=== PATIENT | female | born 1965 | race Caucasian/White ===

== ENCOUNTER → 2016-11-29 | Outpatient (CLI) | payer MEDICARE, MEDICAID ==
[~2016-11-29] MED LIST: AMIT100T2 PO; CALC-712 PO; CYCL5TAB PO; DOCU100T7 PO; DULO60CA6 PO; HYDR-3812 PO; IBUP200C75 PO; LEVO50TA6 PO; LISI-556 PO; METF500T4 PO; MULT-81 PO; NALT1TAB PO; NAPR500T PO; OXYC-471 PO; PANT40TA3 PO; POTA10TA10 PO; PRAV40TA2 PO; PROM25TA14 PO; RANI150T90 PO; SPIR25TA3 PO; SPIR50TA2 PO; SULF1TAB35 PO; VENL150C PO
--- OUTSIDE RECORDS SUMMARY | 2016-11-29 11:39 | XMS REPORT | Continuity of Care Document ---
Author Author [facility] Organization [facility] Address Unknown Phone Unavailable Care Team Providers Care Fitter Up Name Role Phone Aden Fowler PCP [phone] Source Comments Some departments are not documenting in the electronic medical record. If you do not see the information that you expected, contact Release of Information in the Health Information Management department at [phone] for further assistance in locating additional records.[facility] Active Allergies and Adverse Reactions No [...] Taken Blood Pressure 119/84 11/02/2015 1:12 PM PLANT BREEDER Pulse 90 11/02/2015 1:12 PM PLANT BREEDER Temperature 36.8 C (98.2 F) 11/02/2015 1:11 PM PLANT BREEDER Respiratory Rate 18 11/02/2015 1:11 PM PLANT BREEDER Height 1.524 m (5') 11/02/2015 1:11 PM PLANT BREEDER Weight 87 kg (191 lb 12.8 oz) 11/02/2015 1:11 PM PLANT BREEDER Body Mass Index 37.46 11/02/2015 1:11 PM PLANT BREEDER Oxygen Saturation - - Plan of Care Health Maintenance Due Date Last Done Comments Physical (Comprehensive) 1972 Exam Pertussis Vaccine 1976 Tetanus Vaccine 1982 Cervical Cancer Screening 1986 Breast Cancer Screening 2005 Colorectal Cancer 2015 Screening Influenza Vaccine 05/31/2016 Results from Last 3 Months Not on file
--- NOTE | 2016-11-30 10:57 | Diagnostic Imaging Report ---
Bilateral screening mammogram. The current study was also evaluated with a Computer Aided Detection (CAD) system. INDICATION: Screening. No current complaints stated on the questionnaire. COMPARISON: 11/29/2015. FINDINGS: The breasts are composed of scattered fibroglandular densities. No suspicious lesion is seen. The punctate calcifications are noted. Allowing for technique and positional differences, no suspicious change is seen. IMPRESSION: No significant change. ACR BI-RADS Category 2: Benign findings. Result letter will be mailed to the patient. Note: At least 10% of breast cancer is not imaged by mammography. Dictated by: Dictated on workstation # [id number]
== END ==
LOC: RAD 11:12
PROVIDERS: ATTEND Internal Medicine Hematology & Oncology
DX: Z12.31 Encounter for screening mammogram for malignant neoplasm of breast (principal)
CPT/HCPCS: 77067

== ENCOUNTER → 2016-11-29 | Outpatient (CLI) | payer MEDICARE, MEDICAID ==
--- OUTSIDE RECORDS SUMMARY | 2016-11-29 11:39 | XMS REPORT | Continuity of Care Document ---
Author Author [facility] Organization [facility] Address Unknown Phone Unavailable Care Team Providers Care Cotton Acreage Measurer Name Role Phone Aden Fowler PCP [phone] Source Comments Some departments are not documenting in the electronic medical record. 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 Pulse 90 11/02/2015 1:12 PM [employer]OR[employer]CLE [employer] Temperature 36.8 C (98.2 F) 11/02/2015 1:11 PM [employer]OR[employer]CLE [employer] Respiratory Rate 18 11/02/2015 1:11 PM [employer]ORCYCLE [employer]ICE Height 1.524 m (5') 11/02/2015 1:11 PM [employer]OR[employer]CLE [employer] Weight 87 kg (191 lb 12.8 oz) 11/02/2015 1:11 PM [employer] Body Mass Index 37.46 11/02/2015 1:11 PM [employer] Oxygen Saturation - - Plan of Care Health Maintenance Due Date Last Done Comments Physical (Comprehensive) 1972 Exam Pertussis Vaccine 1976 Tetanus Vaccine 1982 Cervical Cancer Screening 1986 Breast Cancer Screening 2005 Colorectal Cancer 2015 Screening Influenza Vaccine 05/31/2016 Results from Last 3 Months Not on file
--- NOTE | 2016-11-29 17:10 | Diagnostic Imaging Report ---
Transabdominal and transvaginal pelvic ultrasound. INDICATION: Pelvic pain. FINDINGS: The uterus is 4.5 x 2.6 x 2.1 cm. The endometrial stripe is 0.3 cm in thickness. There is no myometrial mass identified. The right ovary is 1.6 x 1.5 x 2.3 cm. There are arterial waveforms noted. The left ovary is obscured by bowel gas. IMPRESSION: The left ovary is obscured. The uterus and right ovary appear unremarkable. Dictated by: Dictated on workstation # [id number]
== END ==
LOC: RAD 10:57
PROVIDERS: ATTEND Family Medicine
DX: R10.2 Pelvic and perineal pain (principal)
CPT/HCPCS: 76830; 76856

== ENCOUNTER 2016-12-04 08:21 | Outpatient (RCR) | payer MEDICARE, MEDICAID ==
--- OUTSIDE RECORDS SUMMARY | 2016-11-05 12:31 | XMS REPORT | Continuity of Care Document ---
Author Author [facility] Organization [facility] Address Unknown Phone Unavailable Care Team Providers Care Pressroom Supervisor Name Role Phone Aden Fowler PCP [phone] Source Comments Some departments are not documenting in the electronic medical record. If you do not see the information that you expected, contact Release of Information in the Health Information Management department at [phone] for further assistance in locating additional records.[facility] Active Allergies and Adverse Reactions No Known Allergies Current Medications Prescription Sig. Disp. Refills Start End Date Status Date ranitidine(+) (ZANTAC) Take 150 mg by mouth Active 150 mg tablet twice daily. metFORMIN (GLUCOPHAGE) Take 500 mg by mouth Active 500 mg tablet twice daily with meals. lisinopril (PRINIVIL; Take 5 mg by mouth daily. Active ZESTRIL) 5 mg tablet pravastatin (PRAVACHOL) Take 20 mg by mouth Active 20 mg tablet daily. spironolactone Take 25 mg by mouth Active (ALDACTONE) 25 mg tablet daily. potassium chloride SR Take 10 mEq by mouth Active (K-DUR) 10 mEq tablet daily. amitriptyline (ELAVIL) 25 Take 25 mg by mouth at Active mg tablet bedtime daily. levothyroxine (SYNTHROID) Take 50 mcg by mouth Active 50 mcg tablet daily. cyclobenzaprine Take 5-10 mg by mouth Active (FLEXERIL) 5 mg tablet every 8 hours as needed for Muscle Cramps. promethazine (PHENERGAN) Take 25 mg by mouth every Active 25 mg tablet 6 hours as needed for Nausea. MULTIVITAMIN PO Take 1 Tab by mouth Active daily. ibuprofen (MOTRIN) 200 mg Take 200 mg by mouth Active tablet every 6 hours as needed for Pain. CALCIUM Take 1 Tab by mouth Active CARB/D3/MAGNESIUM/ZINC daily. (SHWETA MAG ZINC + D3 PO) DULOXETINE HCL Take 1 Tab by mouth at Active (DULOXETINE PO) bedtime daily. Active Problems Problem Noted Date S/P IVC filter 11/03/2015 Social History Tobacco Use Types Packs/Day Years Used Date Light Tobacco Smoker Last Filed Vital Signs Vital Sign Reading Time Taken Blood Pressure 119/84 11/02/2015 1:12 PM RETAIL CLIENT SOLUTIONS CONSULTANT Pulse 90 11/02/2015 1:12 PM RETAIL CLIENT SOLUTIONS CONSULTANT Temperature 36.8 C (98.2 F) 11/02/2015 1:11 PM RETAIL CLIENT SOLUTIONS CONSULTANT Respiratory Rate 18 11/02/2015 1:11 PM RETAIL CLIENT SOLUTIONS CONSULTANT Height 1.524 m (5') 11/02/2015 1:11 PM RETAIL CLIENT SOLUTIONS CONSULTANT Weight 87 kg (191 lb 12.8 oz) 11/02/2015 1:11 PM RETAIL CLIENT SOLUTIONS CONSULTANT Body Mass Index 37.46 11/02/2015 1:11 PM RETAIL CLIENT SOLUTIONS CONSULTANT Oxygen Saturation - - Plan of Care Health Maintenance Due Date Last Done Comments Physical (Comprehensive) 1972 Exam Pertussis Vaccine 1976 Tetanus Vaccine 1982 Cervical Cancer Screening 1986 Breast Cancer Screening 2005 Colorectal Cancer 2015 Screening Influenza Vaccine 05/31/2016 Results from Last 3 Months Not on file
[2016-11-05 13:04] LABS: BASOPHILS # (AUTO) 0.1 10^3/uL (0.0-0.1); BASOPHILS % (AUTO) 1 % (0-10); EOSINOPHILS # (AUTO) 0.5 10^3/uL (0.0-0.3); EOSINOPHILS % (AUTO) 3 % (0-10); LYMPHOCYTES # (AUTO) 3.6 X 10^3 (1.0-4.0); LYMPHOCYTES % (AUTO) 24 % (12-44); MEAN CORPUSCULAR HEMOGLOBIN 31 PG (25-34); MEAN CORPUSCULAR HGB CONC 34 G/DL (32-36); MEAN CORPUSCULAR VOLUME 93 FL (80-99); MEAN PLATELET VOLUME 9.8 FL (7.4-10.4); MONOCYTES # (AUTO) 1.1 X 10^3 (0.0-1.0); MONOCYTES % (AUTO) 8 % (0-12); NEUTROPHILS # (AUTO) 9.5 X 10^3 (1.8-7.8); NEUTROPHILS % (AUTO) 64 % (42-75); PLATELET COUNT 444 10^3/uL (130-400); RED BLOOD COUNT 4.68 10^6/uL (4.35-5.85); RED CELL DISTRIBUTION WIDTH 14.2 % (10.0-14.5); WHITE BLOOD COUNT 14.8 10^3/uL (4.3-11.0)
[2016-11-05 13:44] LABS: ALANINE AMINOTRANSFERASE 33 U/L (0-55); ALBUMIN 3.9 G/DL (3.2-4.5); ANION GAP 9 MMOL/L (5-14); ASPARTATE AMINO TRANSFERASE 38 U/L (5-34); BILIRUBIN,TOTAL 0.3 MG/DL (0.1-1.0); BLOOD UREA NITROGEN 6 MG/DL (7-18); BUN/CREATININE RATIO 8; CALCIUM 9.2 MG/DL (8.5-10.1); CARBON DIOXIDE 23 MMOL/L (21-32); CHLORIDE 107 MMOL/L (98-107); CREATININE SERUM 0.76 MG/DL (0.60-1.30); GFR ESTIMATED > 60; GLUCOSE 102 MG/DL (70-105); POTASSIUM 4.4 MMOL/L (3.6-5.0); SODIUM 139 MMOL/L (135-145); TOTAL PROTEIN 7.1 G/DL (6.4-8.2)
[2016-11-05 14:18] LABS: ERYTHROCYTE SEDIMENTATION RATE 32 MM/HR (0-30)
[2016-11-14 08:46] LABS: BASOPHILS # (AUTO) 0.1 10^3/uL (0.0-0.1); BASOPHILS % (AUTO) 1 % (0-10); EOSINOPHILS # (AUTO) 0.5 10^3/uL (0.0-0.3); EOSINOPHILS % (AUTO) 5 % (0-10); LYMPHOCYTES # (AUTO) 2.7 X 10^3 (1.0-4.0); LYMPHOCYTES % (AUTO) 24 % (12-44); MEAN CORPUSCULAR HEMOGLOBIN 31 PG (25-34); MEAN CORPUSCULAR HGB CONC 33 G/DL (32-36); MEAN CORPUSCULAR VOLUME 95 FL (80-99); MONOCYTES # (AUTO) 0.7 X 10^3 (0.0-1.0); MONOCYTES % (AUTO) 6 % (0-12); NEUTROPHILS # (AUTO) 7.6 X 10^3 (1.8-7.8); NEUTROPHILS % (AUTO) 65 % (42-75); PLATELET COUNT 364 10^3/uL (130-400); RED CELL DISTRIBUTION WIDTH 14.1 % (10.0-14.5); RETICULOCYTE % 1.68 % (0.50-2.40); WHITE BLOOD COUNT 11.6 10^3/uL (4.3-11.0)
[2016-11-14 09:20] LABS: BAND NEUTROPHILS 0 %; BASOPHILS % (MANUAL) 1 %; EOSINOPHILS % (MANUAL) 4 %; LYMPHOCYTES % (MANUAL) 27 %; NEUTROPHILS % (MANUAL) 61 %
[~2016-12-04 08:21] MED LIST changes: -HYDR-3812 PO; -NALT1TAB PO; -NAPR500T PO; -SULF1TAB35 PO
[2016-12-04 09:36] LABS: BASOPHILS # (AUTO) 0.1 10^3/uL (0.0-0.1); BASOPHILS % (AUTO) 1 % (0-10); EOSINOPHILS # (AUTO) 0.5 10^3/uL (0.0-0.3); EOSINOPHILS % (AUTO) 4 % (0-10); LYMPHOCYTES # (AUTO) 3.3 X 10^3 (1.0-4.0); LYMPHOCYTES % (AUTO) 26 % (12-44); MEAN CORPUSCULAR HEMOGLOBIN 31 PG (25-34); MEAN CORPUSCULAR HGB CONC 33 G/DL (32-36); MEAN CORPUSCULAR VOLUME 94 FL (80-99); MEAN PLATELET VOLUME 9.8 FL (7.4-10.4); MONOCYTES # (AUTO) 0.9 X 10^3 (0.0-1.0); MONOCYTES % (AUTO) 7 % (0-12); NEUTROPHILS % (AUTO) 63 % (42-75); PLATELET COUNT 425 10^3/uL (130-400); RED BLOOD COUNT 4.32 10^6/uL (4.35-5.85); RED CELL DISTRIBUTION WIDTH 13.9 % (10.0-14.5); WHITE BLOOD COUNT 12.7 10^3/uL (4.3-11.0)
[2016-12-04 10:17] LABS: ALANINE AMINOTRANSFERASE 17 U/L (0-55); ALBUMIN 3.6 G/DL (3.2-4.5); ANION GAP 10 MMOL/L (5-14); ASPARTATE AMINO TRANSFERASE 17 U/L (5-34); BILIRUBIN,TOTAL 0.3 MG/DL (0.1-1.0); BLOOD UREA NITROGEN 4 MG/DL (7-18); BUN/CREATININE RATIO 6; CALCIUM 9.4 MG/DL (8.5-10.1); CARBON DIOXIDE 23 MMOL/L (21-32); CHLORIDE 109 MMOL/L (98-107); CREATININE SERUM 0.72 MG/DL (0.60-1.30); GFR ESTIMATED > 60; GLUCOSE 92 MG/DL (70-105); POTASSIUM 4.1 MMOL/L (3.6-5.0); SODIUM 142 MMOL/L (135-145); TOTAL PROTEIN 6.7 G/DL (6.4-8.2)
[2016-12-04 10:19] LABS: ERYTHROCYTE SEDIMENTATION RATE 42 MM/HR (0-30)
[2016-12-04 10:43] LABS: THYROID STIMULATING HORMONE 0.42 UIU/ML (0.35-4.94)
[2017-01-30] MEDS ORDERED: NALT1TAB PO (12:02)
[2017-01-30] MEDS ORDERED: NAPR500T PO (14:46)
[2017-01-30] MEDS ORDERED: SULF1TAB35 PO (14:46)
== END 2017-02-03 | disposition home or self-care (01) ==
LOC: ONC 08:21
PROVIDERS: ATTEND Internal Medicine Hematology & Oncology
DX: D72.829 Elevated white blood cell count, unspecified (principal); F17.210 Nicotine dependence, cigarettes, uncomplicated; R79.82 Elevated C-reactive protein (CRP); R79.89 Other specified abnormal findings of blood chemistry; E11.9 Type 2 diabetes mellitus without complications; E03.9 Hypothyroidism, unspecified; M19.90 Unspecified osteoarthritis, unspecified site; E66.9 Obesity, unspecified; Z68.35 Body mass index [BMI] 35.0-35.9, adult; Z86.718 Personal history of other venous thrombosis and embolism; Z80.3 Family history of malignant neoplasm of breast; Z79.899 Other long term (current) drug therapy
CPT/HCPCS: 36415; 38221; 80053; 84439; 84443; 85007; 85025; 85027; 85045; 85652; 88184; 88185; 88305; 88311; 88313; 99213

== ENCOUNTER 2017-01-30 11:45 | Outpatient (CLI) | payer MEDICARE, MEDICAID ==
--- NOTE | 2017-01-28 12:32 | HISTORY AND PHYSICAL ---
DATE OF SERVICE: 01/30/2017 REASON FOR ADMISSION: Outpatient surgery for right long and ring finger trigger releases. HISTORY OF PRESENT ILLNESS: The patient is a 51-year-old female with complaints of catching and locking in her right long and ring fingers over the last several months. She reports that this has been progressive in nature. She reports activity limitations. She has tried anti-inflammatories as well as activity modifications without relief and due to progressive symptoms and interference with activities of daily living the patient has elected to proceed with surgical intervention. REVIEW OF SYSTEMS: No chest pain, no shortness of breath and no dysuria. PAST MEDICAL HISTORY: Hypertension, hyperlipidemia, diabetes, hypothyroidism, abdominal hernia, reflux, degenerative disk disease, migraines, headaches, depression, anxiety and history of DVT. PAST SURGICAL HISTORY: Abdominal herniorrhaphy, [place] vena cava filter, left carpal tunnel, left elbow, right carpal tunnel, tonsillectomy, right foot and right rotator cuff repair. FAMILY HISTORY: Significant for diabetes, myocardial infarction. PRIMARY CARE PROVIDER: Dr. Farah. SOCIAL HISTORY: The patient smokes 1/2 pack a day. Denies alcohol use. PHYSICAL EXAMINATION: GENERAL: The patient is well-developed, well-nourished, in no acute distress. HEENT: Normocephalic, atraumatic. Pupils are equal, round and reactive to light. Oropharynx is clear. NECK: Supple. No lymphadenopathy. LUNGS: Clear to auscultation bilaterally. HEART: Regular rate and rhythm. ABDOMEN: Soft, nontender and nondistended. EXTREMITIES: The right hand demonstrates tenderness over her long and right finger A1 pulleys. She can demonstrate active triggering with flexion. She has full flexion and extension throughout her MCP, DIP and PIP joints. Sensation is intact distally with no skin lesions noted. IMPRESSION: Right long and ring finger trigger fingers. PLAN: Right long finger and ring finger trigger releases. The risks, benefits, alternatives, options, ramifications and recovery were discussed at length with the patient. She understands and wishes to proceed. Job ID: [id number] DocumentID: [id number] Dictated Date: 01/22/2017 09:36:59 Bath House Attendant Date: 01/22/2017 10:32:44 Dictated By: YING GENAO MD
[~2017-01-30] VITALS: Ht 152.4 cm; Wt 79.1 kg
[2017-01-30] MEDS ORDERED: NALT1TAB PO (12:02)
[2017-01-30 12:06] VITALS: BP 121/79
[2017-01-30] MEDS ORDERED: NAPR500T PO (14:46)
[2017-01-30] MEDS ORDERED: SULF1TAB35 PO (14:46)
== END 2017-01-30 12:42 | disposition home or self-care (01) ==
LOC: PREOP 11:45
PROVIDERS: ATTEND Orthopaedic Surgery
DX: Z01.818 Encounter for other preprocedural examination (principal); Z11.2 Encounter for screening for other bacterial diseases; M65.331 Trigger finger, right middle finger; M65.341 Trigger finger, right ring finger
CPT/HCPCS: 87081

== ENCOUNTER 2017-01-30 12:27 | Emergency (ER) | payer MEDICARE, MEDICAID ==
[~2017-01-30] VITALS: Ht 154.9 cm; Wt 78.9 kg
[~2017-01-30 12:27] MED LIST changes: +NALT1TAB PO
--- NOTE | 2017-01-30 14:09 | ED Integumentary General ---
General Chief Complaint: Skin/Wound Problems Stated Complaint: SORE ON LEFT FOOT Nursing Triage Note: PT HAS A SORE ON HER LEFT BIG TOE. PT STATES IT WAS A BLISTER AND POPPED NOW IT HAS BLOOD COMING FROM IT. PT HAS HAD A SORE ON HER BIG TOE SINCE APPROX. LAST SATURDAY.PT STATES SHE HAS BEEN APPLYING PEROXIDE, ANTIBIOTIC OINTMENT, AND GAUZE AROUND IT. Source: patient Exam Limitations: no limitations History of Present Illness Time seen by provider: 14:09 Initial Comments 51-year-old female patient presents to the emergency department with complaints of a sore on her left great toe. Patient states she has had a callus there for several years. Reports last Saturday she noticed a blood blister had popped. Reports continued wound and pain. Denies contacting her family practitioner or a fisher terrapin. Location Injury Occurred: denies known injury Timing/Duration: constant, week Location: extremities (left great toe) Possible Cause: no cause identified Modifying Factors: worse with other (worse with palpation) Allergies and Home Medications Allergies Coded Allergies: No Known Drug Allergies (Unverified , 01/30/17) Home Medications Duloxetine HCl 60 Mg Capsule.dr, 60 MG PO DAILY, (Reported) Levothyroxine Sodium 50 Mcg Tablet, 50 MCG PO DAILY, (Reported) Lisinopril 5 Mg Tablet, 5 MG PO DAILY, (Reported) Metformin HCl 500 Mg Tablet, 500 MG PO BID, (Reported) Multivit with Calcium,Iron,Min 1 Each Tablet, 1 EACH PO DAILY, (Reported) Naltrexone HCl/Bupropion HCl 1 Each Tablet.er, 1 EACH PO DAILY, (Reported) Naproxen 500 Mg Tablet, 500 MG PO BID PRN for pain, #20 Ref 0 Prescribed by: DARA HORNER on 01/30/17 1446 Pantoprazole Sodium 40 Mg Tablet.dr, 40 MG PO DAILY, (Reported) Potassium Chloride 10 Meq Tablet.er, 10 MEQ PO BID, (Reported) Pravastatin Sodium 40 Mg Tablet, 40 MG PO HS, (Reported) Promethazine HCl 25 Mg Tablet, 25 MG PO Q6H PRN for NAUSEA/VOMITING, (Reported) Ranitidine HCl 150 Mg Tablet, 150 MG PO BID, (Reported) Sulfamethoxazole/Trimethoprim 1 Each Tablet, 1 EACH PO BID, #14 Ref 0 Prescribed by: DARA HORNER on 01/30/17 1446 Constitutional: No chills, No fever, No malaise Respiratory: no symptoms reported Cardiovascular: no symptoms reported Musculoskeletal: see HPI, joint pain (left great toe) Skin: see HPI, change in color (erythema left great toe), lesions, No pruritus Psychiatric/Neurological: See HPI, Pre-Existing Deficit (neuropathy bilateral feet), Denies Weakness All Other Systems Reviewed Negative Unless Noted: Yes (Negative excepted noted.) Past Uykpdpi-Bszgsl-Xnrmmd Hx Patient Social History Alcohol Use: Denies Use Recreational Drug Use: No Smoking Status: Current Everyday Smoker Type Used: Cigarettes 2nd Hand Smoke Exposure: Yes Recent Foreign Travel: No Contact w/Someone Who Travel: No Recent Infectious Disease Expo: No Recent Hopitalizations: No Immunizations Up To Date Date of Pneumonia Vaccine: Sep 30, 2012 Seasonal Allergies Seasonal Allergies: No Surgeries HX Surgeries: Yes (FOOT X2, BLADDER SLING, SHEMAR CARPAL TUNNEL, SHEMAR ELBOW, R SHOULDER SCOPE X2) Surgeries: Tonsillectomy Respiratory Hx Respiratory Disorders: Yes Respiratory Disorders: Pulmonary Embolism Cardiovascular Hx Cardiac Disorders: Yes (HAS GREENFILED FILTER, HX DVT AND PE) Cardiac Disorders: Deep Vein Thrombosis, Hypertension Neurological Hx Neurological Disorders: Yes (GUILLIAN BARRE) Neurological Disorders: Headaches /Migraines 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 System Hx 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 Disorders: No Sexually Transmitted Disease: No HIV/AIDS: No Female 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 Disorders: Denies Genitourinary Hx Genitourinary Disorders: No Gastrointestinal Hx Gastrointestinal Disorders: Yes (FATTY LIVER) Gastrointestinal Disorders: Gastroesophageal Reflux, Chronic Constipation Musculoskeletal Hx Musculoskeletal Disorders: Yes Musculoskeletal Disorders: Degenerate Disk Disease, Arthritis, Scoliosis, Chronic Back Pain Endocrine Hx Endocrine Disorders: Yes HEENT HX ENT Disorders: Yes (GLASSES) Loss of Vision: Bilateral Hearing Impairment: Denies Cancer Hx Cancer: No Psychosocial Hx Psychiatric Problems: Yes Behavioral Health Disorders: Anxiety, Depression Integumentary HX Skin/Integumentary Disorder: No Blood Transfusions Hx Blood Disorders: No Adverse Reaction to a Blood Tr: No (N/A) Reviewed Nursing Assessment Reviewed/Agree w Nursing PMH: Yes Family Medical History Significant Family History: No Pertinent Family Hx Physical Exam Vital Signs Vital Sign - Last 12Hours 01/30/17 13:42 Temp 98.3 Pulse 79 Resp 18 B/P (MAP) 130/91 Pulse Ox 98 O2 Delivery Room Air Capillary Refill : Less Than 3 Seconds General Appearance: WD/WN, no apparent distress Cardiovascular: normal peripheral pulses, no edema Extremities: normal range of motion, no pedal edema, normal capillary refill, swelling (mild swelling left great toe), other (plantar wart noted on the left plantar great toe with surrounding erythema. 2 small blood blisters noted proximal to the plantar wart. Callus formation surrounding the wart noted. Wound of the medial left great toe consistent with recent vesicle rupture.) Neurologic/Psychiatric: no motor/sensory deficits, alert, normal mood/affect, oriented x 3 Skin: normal color, warm/dry, other (plantar wart noted on the left plantar great toe with surrounding erythema. 2 small blood blisters noted proximal to the plantar wart. Callus formation surrounding the wart noted. Wound of the medial left great toe consistent with recent vesicle rupture.) Skin Problem Location: lower extremities (left great toe) Skin Problem Character: erythema, tenderness, vesicular, other (plantar wart noted on the left plantar great toe with surrounding erythema. 2 small blood blisters noted proximal to the plantar wart. Callus formation surrounding the wart noted. Wound of the medial left great toe consistent with recent vesicle rupture.) Progress/Results/Core Measures Results/Orders My Orders Orders - DARA HORNER Mupirocin Ointment (Bactroban Ointment (01/30/17 21:00) Mupirocin Ointment (Bactroban Ointment (01/30/17 14:20) Vital Signs/I&O Vital Sign - Last 12Hours 01/30/17 01/30/17 13:42 14:54 Temp 98.3 98.3 Pulse 79 80 Resp 18 18 B/P (MAP) 130/91 Pulse Ox 98 98 O2 Delivery Room Air Blood Pressure Mean: 104 Departure Communication Progress Notes Patient seen and evaluated. Plan for discharge to home with Naprosyn and Bactrim DS. Impression Impression: Primary Impression: Cellulitis of toe of left foot Additional Impressions: Open wound of toe without complication Qualified Codes: S91.109A - Unspecified open wound of unspecified toe(s) without damage to nail, initial encounter Plantar wart of left foot Disposition: 01 HOME, SELF-CARE Condition: Improved Departure-Patient Inst. Decision time for Depature: 14:43 Referrals: GEO FARAH MD (PCP/Family) Primary Care Physician Patient Instructions: Cellulitis (Skin Infection), Adult (DC), Plantar Warts ( DC) Add. Discharge Instructions: All discharge instructions reviewed with patient and/or family. Voiced understanding. Medications as instructed. Apply Bactroban ointment sparingly twice daily to the left great toe for 7 days. Cover with a bandage. Keep wound clean and dry. Shower with antibacterial soap. Follow-up with Dr. Farah in the next 5-7 days for recheck. Consider following up with outpatient wound care. Contact Dr. Ash's office to notify him of diagnoses. Return to the emergency department for worsened symptoms or any other concerns. Scripts Naproxen (Naprosyn) 500 Mg Tablet 500 MG PO BID Y for pain, #20 TAB 0 Refills Prov: DARA HORNER 01/30/17 Sulfamethoxazole/Trimethoprim (Bactrim Ds Tablet) 1 Each Tablet 1 EACH PO BID, #14 TAB 0 Refills Prov: DARA HORNER 01/30/17 DARA HORNER January 30, 2017 14:09
[2017-01-30] MEDS ORDERED: MUPIROCIN 2% OINT 22 GM (BACTROBAN) TUBE ONE (14:20)
[2017-01-30] MEDS ORDERED: SULF1TAB35 PO (14:46)
[2017-01-30] MEDS ORDERED: NAPR500T PO (14:46)
[2017-01-30 14:54] VITALS: BP 117/78
[2017-01-30] MEDS: MUPIROCIN 2% OINT 22 GM (BACTROBAN) TUBE TOP SCH (14:58)
== END 2017-01-30 15:00 | disposition home or self-care (01) ==
LOC: EDUNIT# 12:27 → ER 12:30
DX: L03.032 Cellulitis of left toe (principal); B07.0 Plantar wart

== ENCOUNTER 2017-02-06 06:00 | Day surgery (SDC) | payer MEDICARE, MEDICAID ==
[~2017-02-06] VITALS: Ht 154.9 cm; Wt 79.1 kg
[~2017-02-06 06:00] MED LIST changes: +NAPR500T PO; +SULF1TAB35 PO
[2017-02-06 06:30] VITALS: BP 130/103
[2017-02-06] MEDS ORDERED: fentaNYL INJECTION 100 MCG/2 ML AMP ONE (06:37)
[2017-02-06] MEDS ORDERED: PROPOFOL INJECTION 0 ML IV ONE (06:37)
[2017-02-06] MEDS ORDERED: MIDAZOLAM 2 MG/2 ML (VERSED) VIAL ONE (06:38)
[2017-02-06] MEDS ORDERED: ceFAZolin 1,000 MG (ANCEF) VIAL ONE (06:38)
[2017-02-06] MEDS ORDERED: NS (IVPB) 50 ML ONE (06:38)
[2017-02-06] MEDS ORDERED: FAMOTIDINE 20MG/2ML IV (PEPCID) IV ONE (06:45)
[2017-02-06] MEDS: LACTATED RINGERS 1,000 ML IV PRN ×2 (06:56→08:18)
[2017-02-06] MEDS ORDERED: LIDOCAINE 1% INJ 20 ML (XYLOCAINE) VIAL ONE (06:59)
[2017-02-06] MEDS ORDERED: BUPIVACAINE 0.5% 30 ML (SENSORCAINE) VIAL ONE (06:59)
[2017-02-06] MEDS ORDERED: ceFAZolin 1 GM/NS 50 ML IVPB IV ONE ×2 (07:00)
--- NOTE | 2017-02-06 07:25 | Progress Note-Pre Operative ---
Pre-Operative Progress Note H&P Reviewed The H&P was reviewed, patient examined and no changes noted. Date H&P Reviewed: February 06, 2017 Time H&P Reviewed: 07:11 Pre-Operative Diagnosis: right long and ring trigger fingers YING GENAO MD February 06, 2017 07:25
--- NOTE | 2017-02-06 07:26 | Progress Note-Post Operative ---
Post-Operative Progess Note Surgeon (s)/Oil And Gas Exploration Technician (s) Surgeon YING GENAO MD Oil And Gas Exploration Technician: Daron Vann Pre-Operative Diagnosis right long and ring trigger fingers Post-Operative Diagnosis right long and ring trigger fingers Procedure & Operative Findings Date of Procedure 02/06/17 Procedure Preformed/Findings right long and ring finer A1 marguerite releases Anesthesia Type MAC plus local Estimated Blood Loss Estimated blood loss (mL): minimal Specimens/Packing Specimens Removed none Packing: none YING GENAO MD February 06, 2017 07:26
[2017-02-06] MEDS ORDERED: HYDROcodone/APAP 5 MG/325 MG (LORTAB) TAB PO PRN (07:30)
[2017-02-06] MEDS ORDERED: LACTATED RINGERS 1,000 ML IV ONE (07:57)
[2017-02-06] MEDS ORDERED: PROPOFOL INJECTION 50 ML IV ONE (08:09)
[2017-02-06] MEDS ORDERED: MEPERIDINE (DEMEROL) INJ 50 MG/ML IVP PRN (08:15)
[2017-02-06] MEDS ORDERED: ONDANSETRON 4 MG/2 ML (SDV) Z0FRAN IVP PRN (08:15)
[2017-02-06] MEDS ORDERED: morphine INJ 10 MG/ML 1ML (SYR OR VIAL) IVP PRN (08:15)
--- NOTE | 2017-02-06 08:37 | OPERATIVE REPORT ---
DATE OF SERVICE: 02/06/2017 PREOPERATIVE DIAGNOSES: 1. Right long finger trigger finger. 2. Right ring finger trigger finger. POSTOPERATIVE DIAGNOSES: 1. Right long finger trigger finger. 2. Right ring finger trigger finger. PROCEDURES: 1. Right long finger A1 marguerite release. 2. Right ring finger A1 marguerite release. SURGEON: Dr. Genao. NOZZLE OPERATOR: Dr. Daron Vann who assisted throughout the procedure and closed the incisions. ANESTHESIA: Monitored anesthesia care plus local by Daron Chaudhary CRNA. TOURNIQUET TIME: 5 minutes at 250 mmHg. ESTIMATED BLOOD LOSS: Minimal. DRAINS: None. COMPLICATIONS: None. POSTOPERATIVE PLAN: Early range of motion. The patient was transferred to the recovery room awake and in stable condition. STATEMENT OF MEDICAL NECESSECITY: The patient is a 51-year-old right-hand dominant female with complaints of right long and ring finger catching and locking. She was tender along her A1 pulleys. She could demonstrate active triggering. Due to functional impairment and failure to improve with conservative measures the patient has elected to proceed with surgical intervention. PROCEDURE: Risks and benefits of the procedure were discussed and questions were answered and informed consent was signed and placed on chart. The operative site was confirmed in the preoperative holding area and initialed by the surgeon. The patient was then transported to the operating room after adequate levels of monitored anesthesia care were obtained. A timeout was called confirming the operative sites. Under sterile conditions the incision sites over the ring and long fingers were infiltrated with a combination of plain lidocaine and plain Marcaine. The right upper extremity was then prepped and draped in the usual sterile fashion with arm elevated. The tourniquet was inflated to 250 mmHg. The procedures were performed in a similar fashion on the left otherwise indicated. Incisions were made over the A1 pulleys with ring and long fingers. Underlying soft tissues were bluntly dissected. The A1 pulleys were identified and sharply incised longitudinally. The flexor tendons were exposed with no gross abnormalities noted. The fingers were taken through range of motion without catching or locking noted. The tourniquet was deflated. Pressure was used for hemostasis. The wounds were copiously irrigated and closed with 4-0 nylon in a simple interrupted fashion. A soft dressing was applied, and the patient was transported to the recovery room awake and in stable condition. Job ID: [id number] DocumentID: [id number] Dictated Date: 02/06/2017 08:02:57 Hand Turner Date: 02/06/2017 08:37:10 Dictated By: YING GENAO MD
[2017-02-06 08:50] VITALS: BP 121/75
[2017-02-06] MEDS ORDERED: HYDR-3812 PO (09:03)
[2017-02-06 09:20] VITALS: BP 130/90
== END 2017-02-06 09:32 | disposition home or self-care (01) ==
LOC: SDC 06:00
PROVIDERS: ATTEND Orthopaedic Surgery
DX: M65.331 Trigger finger, right middle finger (principal); M65.341 Trigger finger, right ring finger; E78.5 Hyperlipidemia, unspecified; I10 Essential (primary) hypertension; F32.9 Major depressive disorder, single episode, unspecified; E11.9 Type 2 diabetes mellitus without complications; K21.9 Gastro-esophageal reflux disease without esophagitis; E07.9 Disorder of thyroid, unspecified; F17.210 Nicotine dependence, cigarettes, uncomplicated
CPT/HCPCS: 82962

== ENCOUNTER 2017-03-14 09:58 | Outpatient (CLI) | payer MEDICARE, MEDICAID ==
[~2017-03-14] VITALS: Ht 154.9 cm; Wt 79.1 kg
[~2017-03-14 09:58] MED LIST changes: +HYDR-3812 PO
[2017-03-14 10:08] VITALS: BP 113/68
[2017-03-14 10:34] LABS: BASOPHILS # (AUTO) 0.1 10^3/uL (0.0-0.1); BASOPHILS % (AUTO) 1 % (0-10); EOSINOPHILS # (AUTO) 0.4 10^3/uL (0.0-0.3); EOSINOPHILS % (AUTO) 4 % (0-10); LYMPHOCYTES # (AUTO) 2.7 X 10^3 (1.0-4.0); LYMPHOCYTES % (AUTO) 24 % (12-44); MEAN CORPUSCULAR HEMOGLOBIN 30 PG (25-34); MEAN CORPUSCULAR HGB CONC 33 G/DL (32-36); MEAN CORPUSCULAR VOLUME 93 FL (80-99); MEAN PLATELET VOLUME 9.8 FL (7.4-10.4); MONOCYTES # (AUTO) 0.8 X 10^3 (0.0-1.0); MONOCYTES % (AUTO) 7 % (0-12); NEUTROPHILS # (AUTO) 7.1 X 10^3 (1.8-7.8); NEUTROPHILS % (AUTO) 64 % (42-75); PLATELET COUNT 352 10^3/uL (130-400); RED BLOOD COUNT 4.35 10^6/uL (4.35-5.85); RED CELL DISTRIBUTION WIDTH 14.5 % (10.0-14.5)
== END 2017-03-14 11:01 | disposition home or self-care (01) ==
LOC: PREOP 09:58
PROVIDERS: ATTEND Surgery Pediatric Surgery
DX: Z01.812 Encounter for preprocedural laboratory examination (principal); Z11.2 Encounter for screening for other bacterial diseases; K43.2 Incisional hernia without obstruction or gangrene
CPT/HCPCS: 36415; 85025; 87081

== ENCOUNTER 2017-03-21 07:45 | Day surgery (SDC) | payer MEDICARE, MEDICAID ==
[~2017-03-21] VITALS: Ht 154.9 cm; Wt 79.1 kg
--- NOTE | 2017-03-21 07:59 | Progress Note-Pre Operative ---
Pre-Operative Progress Note H&P Reviewed The H&P was reviewed, patient examined and no changes noted. Date Seen by Provider: Mar 21, 2017 Time Seen by Provider: 07:55 Date H&P Reviewed: Mar 21, 2017 Time H&P Reviewed: 07:58 Pre-Operative Diagnosis: Ventral abdominal incisional hernia MARIA DOLORES NAVA APRN Mar 21, 2017 7:59 am
[2017-03-21] MEDS: LACTATED RINGERS 1,000 ML IV PRN ×2 (08:00→12:12)
[2017-03-21 08:16] VITALS: BP 110/81
[2017-03-21] MEDS ORDERED: NS (IVPB) 50 ML ONE (08:27)
[2017-03-21] MEDS ORDERED: ceFAZolin 1,000 MG (ANCEF) VIAL ONE (08:27)
[2017-03-21] MEDS ORDERED: CATHETER FLUSH 10 ML SYR IV PRN (08:45)
[2017-03-21] MEDS ORDERED: ceFAZolin 1 GM/NS 50 ML IVPB IV ONE ×2 (08:45)
[2017-03-21] MEDS ORDERED: BUP/EPI 0.5% 1:200,000 (SENSORCAINE) 30 ML VIAL ONE (10:45)
[2017-03-21] MEDS ORDERED: MUPI1OIN6 TP (10:50)
[2017-03-21] MEDS ORDERED: DOCU-238 PO (10:50)
[2017-03-21] MEDS ORDERED: OMEP40CA36 PO (10:50)
[2017-03-21] MEDS ORDERED: fentaNYL INJECTION 250 MCG/5 ML AMP ONE (11:17)
[2017-03-21] MEDS ORDERED: MIDAZOLAM 2 MG/2 ML (VERSED) VIAL ONE (11:17)
[2017-03-21] MEDS ORDERED: NEOSTIGMINE (BLOXIVERZ ) 1 MG/1ML 10 ML VIAL ONE ×2 (12:45→12:53)
[2017-03-21] MEDS ORDERED: LIDOCAINE PF 2% 5 ML (XYLOCAINE) VIAL ONE (12:45)
[2017-03-21] MEDS ORDERED: SEVOFLURANE (ULTANE) 15 ML INHAL SOLN ONE ×2 (12:45→13:10)
[2017-03-21] MEDS ORDERED: proPOfol 200 MG/20 ML (DIPRIVAN) VIAL IV ONE (12:45)
[2017-03-21] MEDS ORDERED: GLYCOPYRROLATE 0.2 MG/ML (ROBINUL) 2 ML VIAL ONE ×2 (12:45→12:53)
[2017-03-21] MEDS ORDERED: LACTATED RINGERS 1,000 ML IV ONE ×2 (12:45→12:53)
[2017-03-21] MEDS ORDERED: ROCURONIUM 50 MG/5 ML (ZEMURON) VIAL IV ONE (12:46)
--- NOTE | 2017-03-21 12:50 | Progress Note-Post Operative ---
Post-Operative Progess Note Surgeon (s)/Test Equipment Mechanic (s) Surgeon SUSAN RAMOS MD Test Equipment Mechanic: gema chance JUNIOR WEB DEVELOPER Pre-Operative Diagnosis Recurrent Ventral abdominal incisional hernia Post-Operative Diagnosis same Procedure & Operative Findings Date of Procedure 03/21/17 Procedure Performed/Findings mini laparotomy, explantion previous mesh, repair recurrent ventral abdominal incisional hernia repair with mesh. Anesthesia Type GET Estimated Blood Loss Estimated blood loss (mL): minimal Specimens/Packing Specimens Removed none SUSAN RAMOS MD Mar 21, 2017 12:50 pm
[2017-03-21] MEDS ORDERED: HYDROcodone/APAP 5 MG/325 MG (LORTAB) TAB PO NR (13:00)
[2017-03-21] MEDS ORDERED: ACETAMINOPHEN 325 MG TABLET/CAPLET (TYLENOL) PO PRN (13:00)
[2017-03-21] MEDS ORDERED: HYDROcodone/APAP 5 MG/325 MG (LORTAB) TAB PO ONE (13:00)
[2017-03-21] MEDS ORDERED: ONDANSETRON 4 MG/2 ML (SDV) Z0FRAN IVP PRN (13:00)
[2017-03-21] MEDS ORDERED: morphine INJ 10 MG/ML 1ML (SYR OR VIAL) IVP PRN (13:00)
[2017-03-21] MEDS ORDERED: HYDROmorphone (DILAUDID) 2 MG/ML VIAL IVP PRN (13:30)
[2017-03-21] MEDS: morphine INJ 10 MG/ML 1ML (SYR OR VIAL) IVP PRN ×2 (13:34→13:38)
[2017-03-21] MEDS ORDERED: PROMETHAZINE INJ 25 MG/ML (PHENERGAN) AMP ONE (13:45)
[2017-03-21] MEDS ORDERED: PROMETHAZINE INJ 25 MG/ML (PHENERGAN) AMP IVP ONE (14:00)
[2017-03-21 14:20] VITALS: BP 136/85
[2017-03-21] MEDS ORDERED: LACTATED RINGERS 1,000 ML IV SCH (14:45)
[2017-03-21] MEDS ORDERED: POTA10CA43 PO (15:39)
[2017-03-21] MEDS ORDERED: LIDO700A45 TP (15:39)
[2017-03-21] MEDS ORDERED: DULO60CA58 PO (15:39)
[2017-03-21] MEDS ORDERED: RANI150T11 PO (15:39)
[2017-03-21] MEDS: inSUlin (REGULAR) HUMAN 1 UNIT/0.01 ML (CHARGE PER UNIT) SC SCH ×2 (16:00→22:05)
[2017-03-21 16:28] VITALS: BP 126/74
[2017-03-21] MEDS: ENOXAPARIN 30 MG/0.3 ML (LOVENOX) SYR SC SCH (17:07)
[2017-03-21] MEDS: HYDROcodone/APAP 5 MG/325 MG (LORTAB) TAB PO PRN (19:11)
[2017-03-21 20:00] VITALS: BP 128/67
--- NOTE | 2017-03-21 20:33 | OPERATIVE REPORT ---
DATE OF SERVICE: 03/21/2017 ATTENDING PRIMARY CARE PHYSICIAN: Ana Farah MD PREOPERATIVE DIAGNOSIS: Symptomatic recurrent ventral abdominal incisional hernia. POSTOPERATIVE DIAGNOSIS: Symptomatic recurrent ventral abdominal incisional hernia with a defect approximately 4 x 4 cm in size and the hernia sac encompassing a previous mesh. PROCEDURE: 1. Mini-laparotomy 2. Explantation of previous mesh. 3. Repair of recurrent ventral abdominal incisional hernia with mesh. SURGEON: Susan Dougherty MD FIELD TRAINING MANAGER: Chris Isaac APRN. ANESTHESIA: General endotracheal. ESTIMATED BLOOD LOSS: Minimal. FINDINGS: Recurrent ventral abdominal incisional hernia with hernia sac encompassing the previous old mesh. There were no signs of infection. Once explantation was performed, the hernia defect was approximately 4 x 4 cm in size. DISPOSITION: The patient tolerated the procedure well. INDICATIONS: The patient is a 51-year-old female with a recurrent ventral abdominal incisional hernia which is symptomatic. She reports her first surgery was a primary umbilical hernia repair in 2003 and then she developed recurrence which was then repaired as well. She then moved around and did have 3 other recurrences requiring recurrent ventral abdominal incisional hernia with the last one done 2012. Since that time, she developed another recurrent hernia which is supraumbilical which was approximately 3 to 4 cm in size and reducible; however, tender to palpation. She does have risk factors including diabetes as well as smoking. She also has a history of DVT as well as pulmonary embolism. DESCRIPTION OF PROCEDURE: The patient was brought to the operating room, laid supine on the table. After adequate IV pain and sedating medications and general endotracheal intubation, the abdomen was prepped and draped in standard surgical fashion. A 0.5% Marcaine with epinephrine was then used to anesthetize the overlying skin incision, which was supraumbilical and transverse. A skin incision was made along the previous scar. We then proceeded with the superior dissection identifying the recurrent ventral abdominal incisional hernia. This was completely dissected out using Metzenbaum scissors as well as electrocautery. The entire hernia sac appeared to be in the previous mesh. It was decided to proceed with explantation of the mesh. We then proceeded with a vertical midline laparotomy and explantation of the entire mesh under direct visualization using Kc scissors as well as electrocautery. There was only omentum within the hernia sac. Good hemostasis was observed. Once explantation of the mesh was performed, a defect approximately 4 cm in size was identified. We repaired this defect using an 8 x 8 coated polypropylene mesh. We then proceeded to close the defect by suturing a good clean rim of fascia to the mesh using interrupted 0 Prolene sutures. Good hemostasis was observed. The subcutaneous tissue was then reapproximated using 0 Vicryl interrupted sutures. Skin was closed using 4-0 Monocryl running subcuticular suture. The wound was then cleaned and covered by Dermabond. In the area of defect, this area was then covered with tonsil sponges followed by sterile 4 x 4 gauze followed by a large Op-Site followed by an abdominal binder. The patient tolerated the procedure well. We will admit for 23-hour observation. She has a number of medical comorbidities including diabetes, history of DVT as well as pulmonary embolism and hypertension. We will proceed with tight glycemic control with insulin sliding scale. We will also proceed with DVT prophylaxis with calf SCDs, early ambulation as well as Lovenox injections. Once discharged, she will be instructed to do no heavy lifting or exertion as well as to wear her abdominal binder for the next six weeks due to her high risk of recurrence. Job ID: [id number] DocumentID: [id number] Dictated Date: 03/21/2017 13:07:11 Cantilever Crane Operator Date: 03/21/2017 20:33:15 Dictated By: SUSAN DOUGHERTY MD [facility] HOSPITALCarmencita
[2017-03-22 00:27] VITALS: BP 123/71
[2017-03-22] MEDS: HYDROcodone/APAP 5 MG/325 MG (LORTAB) TAB PO PRN ×2 (00:32→12:10)
[2017-03-22 03:56] VITALS: BP 120/82
[2017-03-22] MEDS: inSUlin (REGULAR) HUMAN 1 UNIT/0.01 ML (CHARGE PER UNIT) SC SCH ×2 (05:39→12:04)
[2017-03-22] MEDS: ENOXAPARIN 30 MG/0.3 ML (LOVENOX) SYR SC SCH (05:39)
--- NOTE | 2017-03-22 07:54 | Anesthesia-General Post-Op ---
General Patient Condition Mental Status/LOC: Same as Preop Cardiovascular: Satisfactory Nausea/Vomiting: Absent Respiratory: Satisfactory Pain: Controlled Complications: Absent Post Op Complications Complications None Follow Up Care/Instructions Patient Instructions None needed. Anesthesia/Patient Condition Patient Condition Patient is doing well, no complaints, stable vital signs, no apparent adverse anesthesia problems. No complications reported per nursing. D/C home per [facility] Criteria: No SONDRA RAMSEY CRNA Mar 22, 2017 07:54
[2017-03-22 08:00] VITALS: BP 116/75
[2017-03-22 12:00] VITALS: BP 124/74
[2017-03-22] MEDS ORDERED: HYDR-3816 PO (13:21)
--- NOTE | 2017-03-22 14:15 | Progress Note-Standard ---
Standard Progress Note Progress Notes/Assess & Plan Date Seen by Provider: Mar 22, 2017 Time Seen by Provider: 14:00 Progress/Assessment & Plan s/p explantation mesh and repair recurrent ventral abdominal incisional hernia with mesh. pain controlled and abulating well. tolerating diet. home soon. SUSAN RAMOS MD Mar 22, 2017 2:15 pm
--- NOTE | 2017-03-22 14:17 | Discharge Inst-Surgical ---
D/C Lap Instructions-RACHEL Follow Up Appt in 2 weeks Activity as tolerated No driving for 24 hours No [address] while on pain medications Incentive Spirometry use every 2 hours while awake Regular Diet Symptoms to Report: Fever over 101 degree F, Nausea/Vomiting Infection Signs and Symptoms to report: Increased redness, Foul odor of wound, Increased drainage Bathing instructions: May shower Operative Area Clean/Dry; Keep incision clean/dry If any problems/questions: Contact your physician or go to Emergency Room SUSAN RAMOS MD Mar 22, 2017 2:17 pm
--- OUTSIDE RECORDS SUMMARY | 2017-03-25 10:31 | XMS REPORT | Continuity of Care Document ---
Author Author [facility] Organization [facility] Address Unknown Phone Unavailable Care Team Providers Care Patient Registration Supervisor Name Role Phone Aden Fowler PCP [phone] Source Comments Some departments are not documenting in the electronic medical record. If you do not see the information that you expected, contact Release of Information in the Health Information Management department at [phone] for further assistance in locating additional records.[facility] Active Allergies and Adverse Reactions No Known [...] Taken Blood Pressure 119/84 11/02/2015 1:12 PM SCRIP CLERK Pulse 90 11/02/2015 1:12 PM SCRIP CLERK Temperature 36.8 C (98.2 F) 11/02/2015 1:11 PM SCRIP CLERK Respiratory Rate 18 11/02/2015 1:11 PM SCRIP CLERK Height 1.524 m (5') 11/02/2015 1:11 PM SCRIP CLERK Weight 87 kg (191 lb 12.8 oz) 11/02/2015 1:11 PM SCRIP CLERK Body Mass Index 37.46 11/02/2015 1:11 PM SCRIP CLERK Oxygen Saturation - - Plan of Care Health Maintenance Due Date Last Done Comments Hepatitis C Screening 1965 Physical (Comprehensive) 1972 Exam Pertussis Vaccine 1976 Tetanus Vaccine 1982 Cervical Cancer Screening 1986 Breast Cancer Screening 2005 Colorectal Cancer 2015 Screening Influenza Vaccine 05/31/2017 Results from Last 3 Months Not on file
--- OUTSIDE RECORDS SUMMARY | 2017-03-25 10:33 | XMS REPORT | Continuity of Care Document ---
Author Author [facility] Address Unknown Phone Unavailable Allergies Active Description Code Type Severity Reaction Onset Reported/Identified Relationship to Patient Clinical Status Yes No Known Drug Allergies Drug Allergy Unknown 04/16/2012 Yes No Known Drug Allergies Drug Allergy Unknown N/A 04/16/2012 Yes No known drug allergies ND 04/17/2012 Yes No known drug allergies ND N/A N/A 04/17/2012 Yes No Known Drug Allergies [id number] Drug Allergy Unknown N/ A 03/14/2017 Medications Problems Date Dx Coded Attending Type Code Diagnosis Diagnosed By 04/17/2012 D 787.91 DIARRHEA 06/19/2012 D 553.21 INCISIONAL HERNIA 06/19/2012 D 787.91 DIARRHEA 06/19/2012 D 826.0 FX PHALANX, FOOT-CLOSED 07/17/2012 D 787.02 NAUSEA ALONE 07/17/2012 D 787.91 DIARRHEA 07/17/2012 D 789.00 ABDOMINAL PAIN, UNSPECIF 07/17/2012 D 826.0 FX PHALANX, FOOT-CLOSED 07/17/2012 D V58.61 ANTICOAGULANT USE LONG T 10/10/2012 D 453.9 VENOUS THROMBOSIS NOS 10/16/2012 NADER BAL MD 453.9 VENOUS THROMBOSIS NOS 10/21/2012 NORBERTO CANTU, DIVYA Tse 681.11 ONYCHIA OF TOE 10/21/2012 NORBERTO CANTU, DIVYA Tse 703.8 DISEASES OF NAIL NEC 10/24/2012 NADER BAL MD 453.9 VENOUS THROMBOSIS NOS 10/30/2012 NADER BAL MD 453.9 VENOUS THROMBOSIS NOS 11/06/2012 NADER BAL MD 453.9 VENOUS THROMBOSIS NOS 11/13/2012 NADER BAL MD 453.9 VENOUS THROMBOSIS NOS 11/25/2012 NORBERTO CANTU, DIVYA Tse 729.5 PAIN IN LIMB 11/27/2012 SAM GONGORA MD 211.3 BENIGN NEOPLASM LG BOWEL 11/27/2012 SAM GONGORA MD 453.9 VENOUS THROMBOSIS NOS 11/27/2012 SAM GONGORA MD 564.00 CONSTIPATION NOS 11/27/2012 SAM GONGORA MD 787.91 DIARRHEA 11/27/2012 SAM GONGORA MD 789.06 ABDOMINAL PAIN EPIGASTRI 12/04/2012 NADER BAL MD 453.9 VENOUS THROMBOSIS NOS 12/04/2012 NADER BAL MD 825.25 FX METATARSAL-CLOSED 12/11/2012 NADER BAL MD 453.9 VENOUS THROMBOSIS NOS 12/17/2012 NADER BAL MD 729.5 PAIN IN LIMB 12/17/2012 NADER BAL MD V57.1 PHYSICAL THERAPY NEC 12/18/2012 NADER BAL MD 453.9 VENOUS THROMBOSIS NOS 12/23/2012 DIVYA THORNTON DPM 250.00 DM2/NOS UNCOMP NSU 12/23/2012 DIVYA THORNTON DPM 355.6 PLANTAR NERVE LESION 12/26/2012 NADER BAL MD 453.9 VENOUS THROMBOSIS NOS 01/01/2013 NADER BAL MD 453.9 VENOUS THROMBOSIS NOS 01/08/2013 NADER BAL MD 453.9 VENOUS THROMBOSIS NOS 01/15/2013 NADER BAL MD 453.9 VENOUS THROMBOSIS NOS 01/27/2013 NADER BAL MD 453.9 VENOUS THROMBOSIS NOS 02/03/2013 NADER BAL MD 453.9 VENOUS THROMBOSIS NOS 02/10/2013 NADER BAL MD 453.9 VENOUS THROMBOSIS NOS 02/17/2013 NADER BAL MD 453.9 VENOUS THROMBOSIS NOS 02/24/2013 NADER BAL MD 453.9 VENOUS THROMBOSIS NOS 02/24/2013 DIVYA THORNTON DPM 355.8 MONONEURITIS LEG NOS 02/24/2013 DIVYA THORNTON DPM 726.91 EXOSTOSIS, SITE NOS 03/03/2013 NDAER BAL MD 453.9 VENOUS THROMBOSIS NOS 03/03/2013 NADER BAL MD V72.84 PRE-OP EXAMINATION, [facility] 03/24/2013 NORBERTO CANTU, DIVYA Tse 355.6 PLANTAR NERVE LESION 03/24/2013 NORBERTO CANTU, DIVYA Tse 453.9 VENOUS THROMBOSIS NOS 03/31/2013 NADER BAL MD 453.9 VENOUS THROMBOSIS NOS 03/31/2013 NADER BAL MD 627.2 SYMPT FE MENOPAUSE 04/07/2013 NADER BAL MD 453.9 VENOUS THROMBOSIS NOS 04/14/2013 NADER BAL MD 453.9 VENOUS THROMBOSIS NOS 2013 NORBERTO CANTU, DIVYA Tse 355.6 PLANTAR NERVE LESION 2013 NADER BAL MD 453.9 VENOUS THROMBOSIS NOS 04/28/2013 NADER BAL MD 453.9 VENOUS THROMBOSIS NOS 05/05/2013 NADER BAL MD 244.9 HYPOTHYROIDISM NOS 05/05/2013 NADER BAL MD 453.9 VENOUS THROMBOSIS NOS 05/12/2013 NADER BAL MD 453.9 VENOUS THROMBOSIS NOS 05/18/2013 NADER BAL MD 453.9 VENOUS THROMBOSIS NOS 05/26/2013 NADER BAL MD 453.9 VENOUS THROMBOSIS NOS 05/30/2013 DIVYA THORNTON DPM 726.79 ANKLE ENTHESOPATHY NEC 05/30/2013 DIVYA THORNTON DPM V57.1 PHYSICAL THERAPY NEC 06/02/2013 NADER BAL MD 453.9 VENOUS THROMBOSIS NOS 06/09/2013 NADER BAL MD 453.9 VENOUS THROMBOSIS NOS 06/16/2013 NADER BAL MD 453.9 VENOUS THROMBOSIS NOS 06/22/2013 NADER BAL MD 453.9 VENOUS THROMBOSIS NOS 06/29/2013 DIVYA THORNTON DPM 726.79 ANKLE ENTHESOPATHY NEC 06/29/2013 DIVYA THORNTON DPM V57.1 PHYSICAL THERAPY NEC 06/30/2013 NADER BAL MD 453.9 VENOUS THROMBOSIS NOS 07/10/2013 NADER BAL MD 453.9 VENOUS THROMBOSIS NOS 07/16/2013 NADER BAL MD 453.9 VENOUS THROMBOSIS NOS 07/16/2013 MALLY DONNELLY, NADER Tse V76.12 OT SCREEN MAMMOGRAM 07/23/2013 MALLY DONNELLY, NADER Tse 453.9 VENOUS THROMBOSIS NOS 07/30/2013 NADER BAL MD 453.9 VENOUS THROMBOSIS NOS 07/30/2013 NORBERTO CANTU, DIVYA Tse 726.79 ANKLE ENTHESOPATHY NEC 07/30/2013 NORBERTO CANTU, DIVYA Tse V57.1 PHYSICAL THERAPY NEC 08/06/2013 NADER BAL MD 453.9 VENOUS THROMBOSIS NOS 08/12/2013 NADER BAL MD 453.9 VENOUS THROMBOSIS NOS 08/12/2013 NORBERTO CANTU, DIVYA Tse 726.79 ANKLE ENTHESOPATHY NEC 08/12/2013 NORBERTO CANTU, DIVYA Tse V57.1 PHYSICAL THERAPY NEC 08/31/2015 BRAYDEN WRIGHT [employer] WINDER OPERATOR Ot M75.01 09/09/2015 Ot M75.01 09/13/2015 ASPEN DONNELLY, GEO Carmona Ot G47.10 HYPERSOMNIA, UNSPECIFIED 09/13/2015 GEO LOUISE MD Ot G47.61 PERIODIC LIMB MOVEMENT DISORDER 09/13/2015 GEO LOUISE MD Ot R06.83 SNORING 09/15/2015 Ot M75.01 09/20/2015 Ot M75.01 09/20/2015 Ot M75.01 09/28/2015 Ot Z95.828 09/29/2015 Ot Z95.828 11/23/2015 Ot M75.01 11/23/2015 Ot Z95.828 11/29/2015 Ot M75.01 11/29/2015 Ot Z95.828 11/29/2015 NEY ANDERSEN MD Ot D72.829 11/29/2015 NEY ANDERSEN MD Ot F17.210 12/16/2015 BIRGIT DONNELLY, YING Pierce Ot M75.41 IMPINGEMENT SYNDROME OF RIGHT SHOULDER 12/16/2015 BIRGIT DONNELLY, YING Pierce Ot S43.431A SUPERIOR GLENOID LABRUM LESION OF RIGHT 12/19/2015 YING GENOA MD Ot M75.41 12/19/2015 BIRGIT DONNELLY, YING Pierce Ot S43.431A 12/20/2015 NATHALY DONNELLY, NEY Nolan Ot D72.829 12/20/2015 NATHALY DONNELLY, NEY Nolan Ot F17.210 12/20/2015 NATHALY DONNELLY, NEY Nolan Ot Z12.31 12/20/2015 NATHALY DONNELLY, NEY Nolan Ot Z80.3 12/28/2015 NATHALY DONNELLY, NEY Nolan Ot D72.829 12/28/2015 NATHALY DONNELLY, NEY Nolan Ot F17.210 12/28/2015 NATHALY DONNELLY, NEY Nolan Ot Z12.31 12/28/2015 NATHALY DONNELLY, NEY Nolan Ot Z80.3 12/28/2015 BIRGIT DONNELLY, YING Pierce Ot E03.9 HYPOTHYROIDISM, UNSPECIFIED 12/28/2015 BIRGIT DONNELLY, YING Pierce Ot E11.9 TYPE 2 DIABETES MELLITUS WITHOUT COMPLIC 12/28/2015 BIRGIT DONNELLY, YING Pierce Ot E78.5 HYPERLIPIDEMIA, UNSPECIFIED 12/28/2015 BIRGIT DONNELLY, YING Pierce Ot F17.210 NICOTINE DEPENDENCE, CIGARETTES, UNCOMPL 12/28/2015 YING GENAO MD Ot F32.9 MAJOR DEPRESSIVE DISORDER, SINGLE EPISOD 12/28/2015 BIRGIT DNONELLY, YING Pierce Ot F41.9 ANXIETY DISORDER, UNSPECIFIED 12/28/2015 YING GENAO MD Ot I10 ESSENTIAL (PRIMARY) HYPERTENSION 12/28/2015 BIRGIT DONNELLY, YING Pierce Ot M19.011 PRIMARY OSTEOARTHRITIS, RIGHT SHOULDER 12/28/2015 BIRGIT DONNELLY, YING Pierce Ot M75.111 INCOMPLETE ROTATR-CUFF TEAR/RUPTR OF R S 12/28/2015 YING GENAO MD Ot M77.01 MEDIAL EPICONDYLITIS, RIGHT ELBOW 12/28/2015 YING GENAO MD Ot S43.431A SUPERIOR GLENOID LABRUM LESION OF RIGHT 12/28/2015 YING GENAO MD Ot Z86.718 PERSONAL HISTORY OF OTHER VENOUS THROMBO 01/02/2016 NATHALY DONNELLY, NEY Nolan Ot D72.829 01/02/2016 NATHALY DONNELLY, NEY Nolan Ot F17.210 01/02/2016 NATHALY DONNELLY, NEY Nolan Ot Z12.31 01/02/2016 NATHALY DONNELLY, NEY Nolan Ot Z80.3 02/21/2016 NATHALY DONNELLY, NEY Nolan Ot D72.829 ELEVATED WHITE BLOOD CELL COUNT, UNSPECI 02/21/2016 NATHALY DONNELLY, NEY Nolan Ot F17.210 NICOTINE DEPENDENCE, CIGARETTES, UNCOMPL 03/12/2016 NEY ANDERSEN MD Ot D72.829 ELEVATED WHITE BLOOD CELL COUNT, UNSPECI 03/12/2016 NEY ANDERSEN MD Ot F17.210 NICOTINE DEPENDENCE, CIGARETTES, UNCOMPL 03/22/2016 NEY ANDERSEN MD Ot D72.829 ELEVATED WHITE BLOOD CELL COUNT, UNSPECI 03/22/2016 NEY ANDERSEN MD Ot F17.210 NICOTINE DEPENDENCE, CIGARETTES, UNCOMPL 04/20/2016 NEY ANDERSEN MD Ot D72.829 ELEVATED WHITE BLOOD CELL COUNT, UNSPECI 04/20/2016 NEY ANDERSEN MD Ot F17.210 NICOTINE DEPENDENCE, CIGARETTES, UNCOMPL 04/27/2016 NEY ANDERSEN MD Ot D72.829 ELEVATED WHITE BLOOD CELL COUNT, UNSPECI 04/27/2016 NEY ANDERSEN MD Ot F17.210 NICOTINE DEPENDENCE, CIGARETTES, UNCOMPL 05/01/2016 NEY ANDERSEN MD Ot Z12.31 ENCNTR SCREEN MAMMOGRAM FOR MALIGNANT NE 05/01/2016 NEY ANDERSEN MD Ot Z80.3 FAMILY HISTORY OF MALIGNANT NEOPLASM OF 05/01/2016 NEY ANDERSEN MD, Ot D72.829 ELEVATED WHITE BLOOD CELL COUNT, UNSPECI 05/01/2016 NEY ANDERSEN MD Ot F17.210 NICOTINE DEPENDENCE, CIGARETTES, UNCOMPL 05/02/2016 NEY ANDERSEN MD Ot K76.0 FATTY (CHANGE OF) LIVER, NOT ELSEWHERE C 05/02/2016 NEY ANDERSEN MD, Ot K76.0 FATTY (CHANGE OF) LIVER, NOT ELSEWHERE C 05/07/2016 NEY ANDERSEN MD, Ot K76.0 FATTY (CHANGE OF) LIVER, NOT ELSEWHERE C 05/22/2016 NEY ANDERSEN MD Ot K76.0 FATTY (CHANGE OF) LIVER, NOT ELSEWHERE C 05/25/2016 NEY ANDERSEN MD Ot D72.829 ELEVATED WHITE BLOOD CELL COUNT, UNSPECI 05/25/2016 NEY ANDERSEN MD Ot F17.210 NICOTINE DEPENDENCE, CIGARETTES, UNCOMPL 06/01/2016 NEY ANDERSEN MD Ot K76.0 FATTY (CHANGE OF) LIVER, NOT ELSEWHERE C 06/19/2016 NEY ANDERSEN MD Ot D72.829 ELEVATED WHITE BLOOD CELL COUNT, UNSPECI 06/19/2016 NEY ANDERSEN MD Ot E03.9 HYPOTHYROIDISM, UNSPECIFIED 06/19/2016 NEY ANDERSEN MD Ot E11.9 TYPE 2 DIABETES MELLITUS WITHOUT COMPLIC 06/19/2016 NEY ANDERSEN MD Ot E66.9 OBESITY, UNSPECIFIED 06/19/2016 NEY ANDERSEN MD Ot F17.210 NICOTINE DEPENDENCE, CIGARETTES, UNCOMPL 06/19/2016 NEY ANDERSEN MD Ot M19.90 UNSPECIFIED OSTEOARTHRITIS, UNSPECIFIED 06/19/2016 NEY ANDERSEN MD Ot R79.82 ELEVATED C-REACTIVE PROTEIN (CRP) 06/19/2016 NEY ANDERSEN MD, Ot R79.89 OTHER SPECIFIED ABNORMAL FINDINGS OF BLO 06/19/2016 NEY ANDERSEN MD, Ot Z68.35 BODY MASS INDEX (BMI) 35.0-35.9, ADULT 06/19/2016 NEY ANDERSEN MD, Ot Z79.899 OTHER CUSTODIAL (CURRENT) DRUG THERAPY 06/19/2016 NEY ANDERSEN MD Ot Z80.3 FAMILY HISTORY OF MALIGNANT NEOPLASM OF 06/19/2016 NEY ANDERSEN MD Ot Z86.718 PERSONAL HISTORY OF OTHER VENOUS THROMBO 06/26/2016 NEY ANDERSEN MD Ot D72.829 ELEVATED WHITE BLOOD CELL COUNT, UNSPECI 06/26/2016 NEY ANDERSEN MD Ot E03.9 HYPOTHYROIDISM, UNSPECIFIED 06/26/2016 NEY ANDERSEN MD Ot E11.9 TYPE 2 DIABETES MELLITUS WITHOUT COMPLIC 06/26/2016 NEY ANDERSEN MD, Ot E66.9 OBESITY, UNSPECIFIED 06/26/2016 NEY ANDERSEN MD Ot F17.210 NICOTINE DEPENDENCE, CIGARETTES, UNCOMPL 06/26/2016 NEY ANDERSEN MD Ot M19.90 UNSPECIFIED OSTEOARTHRITIS, UNSPECIFIED 06/26/2016 NEY ANDERSEN MD, Ot R79.82 ELEVATED C-REACTIVE PROTEIN (CRP) 06/26/2016 NEY ANDERSEN MD, Ot R79.89 OTHER SPECIFIED ABNORMAL FINDINGS OF BLO 06/26/2016 NEY ANDERSEN MD, Ot Z68.35 BODY MASS INDEX (BMI) 35.0-35.9, ADULT 06/26/2016 NEY ANDERSEN MD Ot Z79.899 OTHER QA TEST LEAD (CURRENT) DRUG THERAPY 06/26/2016 NEY ANDERSEN MD Ot Z80.3 FAMILY HISTORY OF MALIGNANT NEOPLASM OF 06/26/2016 NEY ANDERSEN MD Ot Z86.718 PERSONAL HISTORY OF OTHER VENOUS THROMBO 07/04/2016 Ot M75.01 ADHESIVE CAPSULITIS OF RIGHT SHOULDER 07/04/2016 Ot Z95.828 PRESENCE OF OTHER VASCULAR IMPLANTS AND 07/04/2016 NEY ANDERSEN MD Ot Z12.31 ENCNTR SCREEN MAMMOGRAM FOR MALIGNANT NE 07/04/2016 NEY ANDERSEN MD, Ot Z80.3 FAMILY HISTORY OF MALIGNANT NEOPLASM OF 07/04/2016 NEY ANDERSEN MD, Ot K76.0 FATTY (CHANGE OF) LIVER, NOT ELSEWHERE C 07/04/2016 NEY ANDERSEN MD, Ot D72.829 ELEVATED WHITE BLOOD CELL COUNT, UNSPECI 07/04/2016 NEY ANDERSEN MD, Ot F17.210 NICOTINE DEPENDENCE, CIGARETTES, UNCOMPL 07/04/2016 NEY ANDERSEN MD, Ot D72.829 ELEVATED WHITE BLOOD CELL COUNT, UNSPECI 07/04/2016 NEY ANDERSEN MD, Ot F17.210 NICOTINE DEPENDENCE, CIGARETTES, UNCOMPL 07/04/2016 YING GENAO MD Ot M75.101 UNSP ROTATR-CUFF TEAR/RUPTR OF RIGHT JESSE 07/04/2016 YING GENAO MD Ot Z01.818 ENCOUNTER FOR OTHER PREPROCEDURAL EXAMIN 07/04/2016 YING GENAO MD Ot Z11.2 ENCOUNTER FOR SCREENING FOR OTHER BACTER 07/05/2016 YING GENAO MD Ot M75.101 UNSP ROTATR-CUFF TEAR/RUPTR OF RIGHT JESSE 07/05/2016 YING GENAO MD Ot Z01.818 ENCOUNTER FOR OTHER PREPROCEDURAL EXAMIN 07/05/2016 YING GENAO MD Ot Z11.2 ENCOUNTER FOR SCREENING FOR OTHER BACTER 07/11/2016 NEY ANDERSEN MD Ot Z12.31 ENCNTR SCREEN MAMMOGRAM FOR MALIGNANT NE 07/11/2016 NEY ANDERSEN MD Ot Z80.3 FAMILY HISTORY OF MALIGNANT NEOPLASM OF 07/11/2016 NEY ANDERSEN MD, Ot K76.0 FATTY (CHANGE OF) LIVER, NOT ELSEWHERE C 07/11/2016 NEY ANDERSEN MD, Ot D72.829 ELEVATED WHITE BLOOD CELL COUNT, UNSPECI 07/11/2016 NEY ANDERSEN MD Ot F17.210 NICOTINE DEPENDENCE, CIGARETTES, UNCOMPL 07/11/2016 YING GENAO MD Ot E03.9 HYPOTHYROIDISM, UNSPECIFIED 07/11/2016 YING GENAO MD Ot E11.9 TYPE 2 DIABETES MELLITUS WITHOUT COMPLIC 07/11/2016 YING GENAO MD Ot E78.5 HYPERLIPIDEMIA, UNSPECIFIED 07/11/2016 YING GENAO MD Ot F17.210 NICOTINE DEPENDENCE, CIGARETTES, UNCOMPL 07/11/2016 YING GENAO MD, Ot F41.9 ANXIETY DISORDER, UNSPECIFIED 07/11/2016 YING GENAO MD Ot I10 ESSENTIAL (PRIMARY) HYPERTENSION 07/11/2016 YING GENAO MD Ot M75.101 UNSP ROTATR-CUFF TEAR/RUPTR OF RIGHT JESSE 07/11/2016 YING GENAO MD Ot Z79.899 OTHER CUSTODIAL (CURRENT) DRUG THERAPY 07/11/2016 YING GENAO MD Ot Z86.718 PERSONAL HISTORY OF OTHER VENOUS THROMBO 07/13/2016 YING GENAO MD Ot E03.9 HYPOTHYROIDISM, UNSPECIFIED 07/13/2016 YING GENAO MD Ot E11.9 TYPE 2 DIABETES MELLITUS WITHOUT COMPLIC 07/13/2016 YING GENAO MD Ot E78.5 HYPERLIPIDEMIA, UNSPECIFIED 07/13/2016 YING GENAO MD Ot F17.210 NICOTINE DEPENDENCE, CIGARETTES, UNCOMPL 07/13/2016 YING GENAO MD Ot F41.9 ANXIETY DISORDER, UNSPECIFIED 07/13/2016 YING GENAO MD Ot I10 ESSENTIAL (PRIMARY) HYPERTENSION 07/13/2016 YING GENAO MD Ot M75.101 UNSP ROTATR-CUFF TEAR/RUPTR OF RIGHT JESSE 07/13/2016 YING GENAO MD Ot Z79.899 OTHER CUSTODIAL (CURRENT) DRUG THERAPY 07/13/2016 YING GENAO MD Ot Z86.718 PERSONAL HISTORY OF OTHER VENOUS THROMBO 07/13/2016 YING GENAO MD Ot E03.9 HYPOTHYROIDISM, UNSPECIFIED 07/13/2016 YING GENAO MD Ot E11.9 TYPE 2 DIABETES MELLITUS WITHOUT COMPLIC 07/13/2016 YING GENAO MD Ot E78.5 HYPERLIPIDEMIA, UNSPECIFIED 07/13/2016 YING GENAO MD Ot F17.210 NICOTINE DEPENDENCE, CIGARETTES, UNCOMPL 07/13/2016 YING GENAO MD Ot F41.9 ANXIETY DISORDER, UNSPECIFIED 07/13/2016 YING GENAO MD Ot I10 ESSENTIAL (PRIMARY) HYPERTENSION 07/13/2016 YING GENAO MD Ot M75.101 UNSP ROTATR-CUFF TEAR/RUPTR OF RIGHT JESSE 07/13/2016 YING GENAO MD, Ot Z79.899 OTHER CUSTODIAL (CURRENT) DRUG THERAPY 07/13/2016 YING GENAO MD, Ot Z86.718 PERSONAL HISTORY OF OTHER VENOUS THROMBO 07/17/2016 Ot M75.01 ADHESIVE CAPSULITIS OF RIGHT SHOULDER 07/17/2016 Ot Z95.828 PRESENCE OF OTHER VASCULAR IMPLANTS AND 07/17/2016 NEY ANDERSEN MD, Ot Z12.31 ENCNTR SCREEN MAMMOGRAM FOR MALIGNANT NE 07/17/2016 NEY ANDERSEN MD, Ot Z80.3 FAMILY HISTORY OF MALIGNANT NEOPLASM OF 07/17/2016 NEY ANDERSEN MD, Ot K76.0 FATTY (CHANGE OF) LIVER, NOT ELSEWHERE C 07/17/2016 NEY ANDERSEN MD, Ot D72.829 ELEVATED WHITE BLOOD CELL COUNT, UNSPECI 07/17/2016 NEY ANDERSEN MD, Ot F17.210 NICOTINE DEPENDENCE, CIGARETTES, UNCOMPL 07/18/2016 GEO LOUISE MD Ot R11.2 NAUSEA WITH VOMITING, UNSPECIFIED 08/07/2016 GEO LOUISE MD Ot R11.2 NAUSEA WITH VOMITING, UNSPECIFIED 08/17/2016 GEO LOUISE MD Ot R11.2 NAUSEA WITH VOMITING, UNSPECIFIED 11/29/2016 Ot M75.01 ADHESIVE CAPSULITIS OF RIGHT SHOULDER 11/29/2016 Ot Z95.828 PRESENCE OF OTHER VASCULAR IMPLANTS AND 11/29/2016 NEY ANDERSEN MD, Ot Z12.31 ENCNTR SCREEN MAMMOGRAM FOR MALIGNANT NE 11/29/2016 NEY ANDERSEN MD, Ot Z80.3 FAMILY HISTORY OF MALIGNANT NEOPLASM OF 11/29/2016 NEY ANDERSEN MD, Ot K76.0 FATTY (CHANGE OF) LIVER, NOT ELSEWHERE C 11/29/2016 NEY ANDERSEN MD, Ot D72.829 ELEVATED WHITE BLOOD CELL COUNT, UNSPECI 11/29/2016 NEY ANDERSEN MD Ot E03.9 HYPOTHYROIDISM, UNSPECIFIED 11/29/2016 NEY ANDERSEN MD Ot E11.9 TYPE 2 DIABETES MELLITUS WITHOUT COMPLIC 11/29/2016 NEY ANDERSEN MD Ot E66.9 OBESITY, UNSPECIFIED 11/29/2016 NEY ANDERSEN MD, Ot F17.210 NICOTINE DEPENDENCE, CIGARETTES, UNCOMPL 11/29/2016 NEY ANDERSEN MD, Ot M19.90 UNSPECIFIED OSTEOARTHRITIS, UNSPECIFIED 11/29/2016 NEY ANDERSEN MD, Ot R79.82 ELEVATED C-REACTIVE PROTEIN (CRP) 11/29/2016 NEY ANDERSEN MD, Ot R79.89 OTHER SPECIFIED ABNORMAL FINDINGS OF BLO 11/29/2016 NEY ANDERSEN MD, Ot Z68.35 BODY MASS INDEX (BMI) 35.0-35.9, ADULT 11/29/2016 NEY ANDERSEN MD, Ot Z79.899 OTHER CUSTODIAL (CURRENT) DRUG THERAPY 11/29/2016 NEY ANDERSEN MD, Ot Z80.3 FAMILY HISTORY OF MALIGNANT NEOPLASM OF 11/29/2016 NEY ANDERSEN MD, Ot Z86.718 PERSONAL HISTORY OF OTHER VENOUS THROMBO 11/29/2016 GEO LOUISE MD Ot R11.2 NAUSEA WITH VOMITING, UNSPECIFIED 11/29/2016 GEO LOUISE MD Ot R10.2 PELVIC AND PERINEAL PAIN 11/29/2016 NEY ANDERSEN MD, Ot Z12.31 ENCNTR SCREEN MAMMOGRAM FOR MALIGNANT NE 11/30/2016 GEO LOUISE MD Ot R10.2 PELVIC AND PERINEAL PAIN 11/30/2016 NEY ANDERSEN MD, Ot Z12.31 ENCNTR SCREEN MAMMOGRAM FOR MALIGNANT NE 12/26/2016 NEY ANDERSEN MD, Ot D72.829 ELEVATED WHITE BLOOD CELL COUNT, UNSPECI 12/26/2016 NEY ANDERSEN MD, Ot E03.9 HYPOTHYROIDISM, UNSPECIFIED 12/26/2016 NEY ANDERSEN MD Ot E11.9 TYPE 2 DIABETES MELLITUS WITHOUT COMPLIC 12/26/2016 NEY ANDERSEN MD, Ot E66.9 OBESITY, UNSPECIFIED 12/26/2016 NEY ANDERSEN MD, Ot F17.210 NICOTINE DEPENDENCE, CIGARETTES, UNCOMPL 12/26/2016 NEY ANDERSEN MD, Ot M19.90 UNSPECIFIED OSTEOARTHRITIS, UNSPECIFIED 12/26/2016 NEY ANDERSEN MD, Ot R79.82 ELEVATED C-REACTIVE PROTEIN (CRP) 12/26/2016 NEY ANDERSEN MD, Ot R79.89 OTHER SPECIFIED ABNORMAL FINDINGS OF BLO 12/26/2016 NEY ANDERSEN MD, Ot Z68.35 BODY MASS INDEX (BMI) 35.0-35.9, ADULT 12/26/2016 NEY ANDERSEN MD, Ot Z79.899 OTHER CUSTODIAL (CURRENT) DRUG THERAPY 12/26/2016 NEY ANDERSEN MD, Ot Z80.3 FAMILY HISTORY OF MALIGNANT NEOPLASM OF 12/26/2016 NEY ANDERSEN MD, Ot Z86.718 PERSONAL HISTORY OF OTHER VENOUS THROMBO 12/26/2016 Ot M75.01 ADHESIVE CAPSULITIS OF RIGHT SHOULDER 12/26/2016 Ot Z95.828 PRESENCE OF OTHER VASCULAR IMPLANTS AND 12/26/2016 NEY ANDERSEN MD Ot Z12.31 ENCNTR SCREEN MAMMOGRAM FOR MALIGNANT NE 12/26/2016 NEY ANDERSEN MD, Ot Z80.3 FAMILY HISTORY OF MALIGNANT NEOPLASM OF 12/26/2016 NEY ANDERSEN MD, Ot K76.0 FATTY (CHANGE OF) LIVER, NOT ELSEWHERE C 12/26/2016 NEY ANDERSEN MD, Ot D72.829 ELEVATED WHITE BLOOD CELL COUNT, UNSPECI 12/26/2016 NEY ANDERSEN MD, Ot E03.9 HYPOTHYROIDISM, UNSPECIFIED 12/26/2016 NEY ANDERSEN MD Ot E11.9 TYPE 2 DIABETES MELLITUS WITHOUT COMPLIC 12/26/2016 NEY ANDERSEN MD, Ot E66.9 OBESITY, UNSPECIFIED 12/26/2016 NEY ANDERSEN MD Ot F17.210 NICOTINE DEPENDENCE, CIGARETTES, UNCOMPL 12/26/2016 NEY ANDERSEN MD Ot M19.90 UNSPECIFIED OSTEOARTHRITIS, UNSPECIFIED 12/26/2016 NEY ANDERSEN MD, Ot R79.82 ELEVATED C-REACTIVE PROTEIN (CRP) 12/26/2016 NEY ANDERSEN MD, Ot R79.89 OTHER SPECIFIED ABNORMAL FINDINGS OF BLO 12/26/2016 NEY ANDERSEN MD Ot Z68.35 BODY MASS INDEX (BMI) 35.0-35.9, ADULT 12/26/2016 NEY ANDERSEN MD, Ot Z79.899 OTHER CUSTODIAL (CURRENT) DRUG THERAPY 12/26/2016 NEY ANDERSEN MD Ot Z80.3 FAMILY HISTORY OF MALIGNANT NEOPLASM OF 12/26/2016 NEY ANDERSEN MD, Ot Z86.718 PERSONAL HISTORY OF OTHER VENOUS THROMBO 12/26/2016 GEO LOUISE MD Ot R11.2 NAUSEA WITH VOMITING, UNSPECIFIED 12/26/2016 NEY ANDERSEN MD Ot Z12.31 ENCNTR SCREEN MAMMOGRAM FOR MALIGNANT NE 12/26/2016 GEO LOUISE MD Ot R10.2 PELVIC AND PERINEAL PAIN 12/27/2016 NEY ANDERSEN MD, Ot Z12.31 ENCNTR SCREEN MAMMOGRAM FOR MALIGNANT NE 12/27/2016 GEO LOUISE MD Ot R10.2 PELVIC AND PERINEAL PAIN 01/04/2017 NEY ANDERSEN MD, Ot D72.829 ELEVATED WHITE BLOOD CELL COUNT, UNSPECI 01/04/2017 NEY ANDERSEN MD, Ot E03.9 HYPOTHYROIDISM, UNSPECIFIED 01/04/2017 NEY ANDERSEN MD, Ot E11.9 TYPE 2 DIABETES MELLITUS WITHOUT COMPLIC 01/04/2017 NEY ANDERSEN MD, Ot E66.9 OBESITY, UNSPECIFIED 01/04/2017 NEY ANDERSEN MD, Ot F17.210 NICOTINE DEPENDENCE, CIGARETTES, UNCOMPL 01/04/2017 NEY ANDERSEN MD, Ot M19.90 UNSPECIFIED OSTEOARTHRITIS, UNSPECIFIED 01/04/2017 NEY ANDERSEN MD, Ot R79.82 ELEVATED C-REACTIVE PROTEIN (CRP) 01/04/2017 NEY ANDERSEN MD, Ot R79.89 OTHER SPECIFIED ABNORMAL FINDINGS OF BLO 01/04/2017 NEY ANDERSEN MD, Ot Z68.35 BODY MASS INDEX (BMI) 35.0-35.9, ADULT 01/04/2017 NEY ANDERSEN MD, Ot Z79.899 OTHER CUSTODIAL (CURRENT) DRUG THERAPY 01/04/2017 NEY ANDERSEN MD, Ot Z80.3 FAMILY HISTORY OF MALIGNANT NEOPLASM OF 01/04/2017 NEY ANDERSEN MD, Ot Z86.718 PERSONAL HISTORY OF OTHER VENOUS THROMBO 01/04/2017 NEY ANDERSEN MD, Ot Z12.31 ENCNTR SCREEN MAMMOGRAM FOR MALIGNANT NE 01/04/2017 GEO LOUISE MD Ot R10.2 PELVIC AND PERINEAL PAIN 01/18/2017 Ot M75.01 ADHESIVE CAPSULITIS OF RIGHT SHOULDER 01/18/2017 Ot Z95.828 PRESENCE OF OTHER VASCULAR IMPLANTS AND 01/18/2017 NEY ANDERSEN MD, Ot Z12.31 ENCNTR SCREEN MAMMOGRAM FOR MALIGNANT NE 01/18/2017 NEY ANDERSEN MD, Ot Z80.3 FAMILY HISTORY OF MALIGNANT NEOPLASM OF 01/18/2017 NEY ANDERSEN MD, Ot K76.0 FATTY (CHANGE OF) LIVER, NOT ELSEWHERE C 01/18/2017 NEY ANDERSEN MD, Ot D72.829 ELEVATED WHITE BLOOD CELL COUNT, UNSPECI 01/18/2017 NATHALY MD, NEY K Ot E03.9 HYPOTHYROIDISM, UNSPECIFIED 01/18/2017 NEY ANDERSEN MD, Ot E11.9 TYPE 2 DIABETES MELLITUS WITHOUT COMPLIC 01/18/2017 NEY ANDERSEN MD, Ot E66.9 OBESITY, UNSPECIFIED 01/18/2017 NEY ANDERSEN MD, Ot F17.210 NICOTINE DEPENDENCE, CIGARETTES, UNCOMPL 01/18/2017 NEY ANDERSEN MD, Ot M19.90 UNSPECIFIED OSTEOARTHRITIS, UNSPECIFIED 01/18/2017 NEY ANDERSEN MD, Ot R79.82 ELEVATED C-REACTIVE PROTEIN (CRP) 01/18/2017 NEY ANDERSEN MD, Ot R79.89 OTHER SPECIFIED ABNORMAL FINDINGS OF BLO 01/18/2017 NEY ANDERSEN MD, Ot Z68.35 BODY MASS INDEX (BMI) 35.0-35.9, ADULT 01/18/2017 NEY ANDERSEN MD, Ot Z79.899 OTHER CUSTODIAL (CURRENT) DRUG THERAPY 01/18/2017 NEY ANDERSEN MD, Ot Z80.3 FAMILY HISTORY OF MALIGNANT NEOPLASM OF 01/18/2017 NEY ANDERSEN MD, Ot Z86.718 PERSONAL HISTORY OF OTHER VENOUS THROMBO 01/18/2017 GEO LOUISE MD Ot R11.2 NAUSEA WITH VOMITING, UNSPECIFIED 01/18/2017 NEY ANDERSEN MD, Ot Z12.31 ENCNTR SCREEN MAMMOGRAM FOR MALIGNANT NE 01/18/2017 GEO LOUISE MD Ot R10.2 PELVIC AND PERINEAL PAIN 01/30/2017 Ot M75.01 ADHESIVE CAPSULITIS OF RIGHT SHOULDER 01/30/2017 Ot Z95.828 PRESENCE OF OTHER VASCULAR IMPLANTS AND 01/30/2017 NEY ANDERSEN MD, Ot Z12.31 ENCNTR SCREEN MAMMOGRAM FOR MALIGNANT NE 01/30/2017 NEY ANDERSEN MD, Ot Z80.3 FAMILY HISTORY OF MALIGNANT NEOPLASM OF 01/30/2017 NEY ANDERSEN MD, Ot K76.0 FATTY (CHANGE OF) LIVER, NOT ELSEWHERE C 01/30/2017 NEY ANDERSEN MD, Ot D72.829 ELEVATED WHITE BLOOD CELL COUNT, UNSPECI 01/30/2017 NEY ANDERSEN MD, Ot E03.9 HYPOTHYROIDISM, UNSPECIFIED 01/30/2017 NEY ANDERSEN MD, Ot E11.9 TYPE 2 DIABETES MELLITUS WITHOUT COMPLIC 01/30/2017 NEY ANDERSEN MD, Ot E66.9 OBESITY, UNSPECIFIED 01/30/2017 NATHALY MD, NEY K Ot F17.210 NICOTINE DEPENDENCE, CIGARETTES, UNCOMPL 01/30/2017 NEY ANDERSEN MD, Ot M19.90 UNSPECIFIED OSTEOARTHRITIS, UNSPECIFIED 01/30/2017 NEY ANDERSEN MD, Ot R79.82 ELEVATED C-REACTIVE PROTEIN (CRP) 01/30/2017 NEY ANDERSEN MD, Ot R79.89 OTHER SPECIFIED ABNORMAL FINDINGS OF BLO 01/30/2017 NEY ANDERSEN MD, Ot Z68.35 BODY MASS INDEX (BMI) 35.0-35.9, ADULT 01/30/2017 NEY ANDERSEN MD, Ot Z79.899 OTHER CUSTODIAL (CURRENT) DRUG THERAPY 01/30/2017 NEY ANDERSEN MD, Ot Z80.3 FAMILY HISTORY OF MALIGNANT NEOPLASM OF 01/30/2017 NEY ANDERSEN MD, Ot Z86.718 PERSONAL HISTORY OF OTHER VENOUS THROMBO 01/30/2017 GEO LOUISE MD, Ot R11.2 NAUSEA WITH VOMITING, UNSPECIFIED 01/30/2017 NEY ANDERSEN MD, Ot Z12.31 ENCNTR SCREEN MAMMOGRAM FOR MALIGNANT NE 01/30/2017 GEO LOUISE MD Ot R10.2 PELVIC AND PERINEAL PAIN 01/30/2017 YING GENAO MD Ot M65.331 TRIGGER FINGER, RIGHT MIDDLE FINGER 01/30/2017 YING GENAO MD Ot M65.341 TRIGGER FINGER, RIGHT RING FINGER 01/30/2017 YING GENAO MD Ot Z01.818 ENCOUNTER FOR OTHER PREPROCEDURAL EXAMIN 01/30/2017 YING GENAO MD Ot Z11.2 ENCOUNTER FOR SCREENING FOR OTHER BACTER 01/30/2017 Ot M75.01 ADHESIVE CAPSULITIS OF RIGHT SHOULDER 01/30/2017 Ot Z95.828 PRESENCE OF OTHER VASCULAR IMPLANTS AND 01/30/2017 NEY ANDERSEN MD Ot Z12.31 ENCNTR SCREEN MAMMOGRAM FOR MALIGNANT NE 01/30/2017 NEY ANDERSEN MD, Ot Z80.3 FAMILY HISTORY OF MALIGNANT NEOPLASM OF 01/30/2017 NEY ANDERSEN MD, Ot K76.0 FATTY (CHANGE OF) LIVER, NOT ELSEWHERE C 01/30/2017 NEY ANDERSEN MD, Ot D72.829 ELEVATED WHITE BLOOD CELL COUNT, UNSPECI 01/30/2017 NEY ANDERSEN MD Ot E03.9 HYPOTHYROIDISM, UNSPECIFIED 01/30/2017 NEY ANDERSEN MD Ot E11.9 TYPE 2 DIABETES MELLITUS WITHOUT COMPLIC 01/30/2017 NEY ANDERSEN MD, Ot E66.9 OBESITY, UNSPECIFIED 01/30/2017 NEY ANDERSEN MD, Ot F17.210 NICOTINE DEPENDENCE, CIGARETTES, UNCOMPL 01/30/2017 NEY ANDERSEN MD, Ot M19.90 UNSPECIFIED OSTEOARTHRITIS, UNSPECIFIED 01/30/2017 NEY ANDERSEN MD, Ot R79.82 ELEVATED C-REACTIVE PROTEIN (CRP) 01/30/2017 NEY ANDERSEN MD, Ot R79.89 OTHER SPECIFIED ABNORMAL FINDINGS OF BLO 01/30/2017 NEY ANDERSEN MD, Ot Z68.35 BODY MASS INDEX (BMI) 35.0-35.9, ADULT 01/30/2017 NEY ANDERSEN MD, Ot Z79.899 OTHER QA TEST LEAD (CURRENT) DRUG THERAPY 01/30/2017 NEY ANDERSEN MD, Ot Z80.3 FAMILY HISTORY OF MALIGNANT NEOPLASM OF 01/30/2017 NEY ANDERSEN MD, Ot Z86.718 PERSONAL HISTORY OF OTHER VENOUS THROMBO 01/30/2017 GEO LOUISE MD Ot R11.2 NAUSEA WITH VOMITING, UNSPECIFIED 01/30/2017 NEY ANDERSEN MD, Ot Z12.31 ENCNTR SCREEN MAMMOGRAM FOR MALIGNANT NE 01/30/2017 GEO LOUISE MD, Ot R10.2 PELVIC AND PERINEAL PAIN 01/30/2017 DARA BROOKS Ot B07.0 PLANTAR WART 01/30/2017 DARA BROOKS Ot L03.032 CELLULITIS OF LEFT TOE 01/30/2017 DARA BROOKS Ot M79.672 PAIN IN LEFT FOOT 01/31/2017 YING GENAO MD Ot M65.331 TRIGGER FINGER, RIGHT MIDDLE FINGER 01/31/2017 YING GENAO MD, Ot M65.341 TRIGGER FINGER, RIGHT RING FINGER 01/31/2017 YING GENAO MD Ot Z01.818 ENCOUNTER FOR OTHER PREPROCEDURAL EXAMIN 01/31/2017 YING GENAO MD Ot Z11.2 ENCOUNTER FOR SCREENING FOR OTHER BACTER 02/03/2017 NEY ANDERSEN MD, Ot D72.829 ELEVATED WHITE BLOOD CELL COUNT, UNSPECI 02/03/2017 NEY ANDERSEN MD, Ot E03.9 HYPOTHYROIDISM, UNSPECIFIED 02/03/2017 NEY ANDERSEN MD, Ot E11.9 TYPE 2 DIABETES MELLITUS WITHOUT COMPLIC 02/03/2017 NEY ANDERSEN MD, Ot E66.9 OBESITY, UNSPECIFIED 02/03/2017 NEY ANDERSEN MD, Ot F17.210 NICOTINE DEPENDENCE, CIGARETTES, UNCOMPL 02/03/2017 NEY ANDERSEN MD, Ot M19.90 UNSPECIFIED OSTEOARTHRITIS, UNSPECIFIED 02/03/2017 NEY ANDERSEN MD, Ot R79.82 ELEVATED C-REACTIVE PROTEIN (CRP) 02/03/2017 NEY ANDERSEN MD, Ot R79.89 OTHER SPECIFIED ABNORMAL FINDINGS OF BLO 02/03/2017 NEY ANDERSEN MD, Ot Z68.35 BODY MASS INDEX (BMI) 35.0-35.9, ADULT 02/03/2017 NEY ANDERSEN MD, Ot Z79.899 OTHER QA TEST LEAD (CURRENT) DRUG THERAPY 02/03/2017 NEY ANDERSEN MD, Ot Z80.3 FAMILY HISTORY OF MALIGNANT NEOPLASM OF 02/03/2017 NEY ANDERSEN MD, Ot Z86.718 PERSONAL HISTORY OF OTHER VENOUS THROMBO 02/03/2017 DARA BROOKS Ot B07.0 PLANTAR WART 02/03/2017 DARA BROOKS Ot L03.032 CELLULITIS OF LEFT TOE 02/03/2017 DARA BROOKS Ot M79.672 PAIN IN LEFT FOOT 02/04/2017 NEY ANDERSEN MD, Ot Z12.31 ENCNTR SCREEN MAMMOGRAM FOR MALIGNANT NE 02/04/2017 NEY ANDERSEN MD, Ot Z80.3 FAMILY HISTORY OF MALIGNANT NEOPLASM OF 02/04/2017 NEY ANDERSEN MD, Ot K76.0 FATTY (CHANGE OF) LIVER, NOT ELSEWHERE C 02/04/2017 GEO LOUISE MD Ot R11.2 NAUSEA WITH VOMITING, UNSPECIFIED 02/04/2017 NEY ANDERSEN MD, Ot Z12.31 ENCNTR SCREEN MAMMOGRAM FOR MALIGNANT NE 02/04/2017 GEO LOUISE MD Ot R10.2 PELVIC AND PERINEAL PAIN 02/04/2017 NEY ANDERSEN MD, Ot D72.829 ELEVATED WHITE BLOOD CELL COUNT, UNSPECI 02/04/2017 NEY ANDERSEN MD, Ot E03.9 HYPOTHYROIDISM, UNSPECIFIED 02/04/2017 NEY ANDERSEN MD Ot E11.9 TYPE 2 DIABETES MELLITUS WITHOUT COMPLIC 02/04/2017 NEY ANDERSEN MD, Ot E66.9 OBESITY, UNSPECIFIED 02/04/2017 NEY ANDERSEN MD, Ot F17.210 NICOTINE DEPENDENCE, CIGARETTES, UNCOMPL 02/04/2017 NEY ANDERSEN MD, Ot M19.90 UNSPECIFIED OSTEOARTHRITIS, UNSPECIFIED 02/04/2017 NEY ANDERSEN MD, Ot R79.82 ELEVATED C-REACTIVE PROTEIN (CRP) 02/04/2017 NEY ANDERSEN MD, Ot R79.89 OTHER SPECIFIED ABNORMAL FINDINGS OF BLO 02/04/2017 NEY ANDERSEN MD, Ot Z68.35 BODY MASS INDEX (BMI) 35.0-35.9, ADULT 02/04/2017 NEY ANDERSEN MD, Ot Z79.899 OTHER QA TEST LEAD (CURRENT) DRUG THERAPY 02/04/2017 NEY ANDERSEN MD, Ot Z80.3 FAMILY HISTORY OF MALIGNANT NEOPLASM OF 02/04/2017 NEY ANDERSEN MD, Ot Z86.718 PERSONAL HISTORY OF OTHER VENOUS THROMBO 02/06/2017 YING GENAO MD Ot E07.9 DISORDER OF THYROID, UNSPECIFIED 02/06/2017 YING GENAO MD Ot E11.9 TYPE 2 DIABETES MELLITUS WITHOUT COMPLIC 02/06/2017 YING GENAO MD Ot E78.5 HYPERLIPIDEMIA, UNSPECIFIED 02/06/2017 YING GENAO MD Ot F17.210 NICOTINE DEPENDENCE, CIGARETTES, UNCOMPL 02/06/2017 YING GENAO MD Ot F32.9 MAJOR DEPRESSIVE DISORDER, SINGLE EPISOD 02/06/2017 YING GENAO MD Ot I10 ESSENTIAL (PRIMARY) HYPERTENSION 02/06/2017 YING GENAO MD Ot K21.9 GASTRO-ESOPHAGEAL REFLUX DISEASE WITHOUT 02/06/2017 YING GENAO MD Ot M65.331 TRIGGER FINGER, RIGHT MIDDLE FINGER 02/06/2017 YING GENAO MD Ot M65.341 TRIGGER FINGER, RIGHT RING FINGER 02/07/2017 YING GENAO MD Ot E07.9 DISORDER OF THYROID, UNSPECIFIED 02/07/2017 YING GENAO MD Ot E11.9 TYPE 2 DIABETES MELLITUS WITHOUT COMPLIC 02/07/2017 YING GENAO MD Ot E78.5 HYPERLIPIDEMIA, UNSPECIFIED 02/07/2017 YING GENAO MD Ot F17.210 NICOTINE DEPENDENCE, CIGARETTES, UNCOMPL 02/07/2017 YING GENAO MD Ot F32.9 MAJOR DEPRESSIVE DISORDER, SINGLE EPISOD 02/07/2017 YING GENAO MD Ot I10 ESSENTIAL (PRIMARY) HYPERTENSION 02/07/2017 YING GENAO MD, Ot K21.9 GASTRO-ESOPHAGEAL REFLUX DISEASE WITHOUT 02/07/2017 YING GENAO MD Ot M65.331 TRIGGER FINGER, RIGHT MIDDLE FINGER 02/07/2017 YING GENAO MD, Ot M65.341 TRIGGER FINGER, RIGHT RING FINGER 02/09/2017 NEY ANDERSEN MD, Ot D72.829 ELEVATED WHITE BLOOD CELL COUNT, UNSPECI 02/09/2017 NEY ANDERSEN MD, Ot E03.9 HYPOTHYROIDISM, UNSPECIFIED 02/09/2017 NEY ANDERSEN MD, Ot E11.9 TYPE 2 DIABETES MELLITUS WITHOUT COMPLIC 02/09/2017 NEY ANDERSEN MD, Ot E66.9 OBESITY, UNSPECIFIED 02/09/2017 NEY ANDERSEN MD, Ot F17.210 NICOTINE DEPENDENCE, CIGARETTES, UNCOMPL 02/09/2017 NEY ANDERSEN MD, Ot M19.90 UNSPECIFIED OSTEOARTHRITIS, UNSPECIFIED 02/09/2017 NEY ANDERSEN MD, Ot R79.82 ELEVATED C-REACTIVE PROTEIN (CRP) 02/09/2017 NEY ANDERSEN MD, Ot R79.89 OTHER SPECIFIED ABNORMAL FINDINGS OF BLO 02/09/2017 NEY ANDERSEN MD, Ot Z68.35 BODY MASS INDEX (BMI) 35.0-35.9, ADULT 02/09/2017 NEY ANDERSEN MD, Ot Z79.899 OTHER CUSTODIAL (CURRENT) DRUG THERAPY 02/09/2017 NEY ANDERSEN MD, Ot Z80.3 FAMILY HISTORY OF MALIGNANT NEOPLASM OF 02/09/2017 NEY ANDERSEN MD, Ot Z86.718 PERSONAL HISTORY OF OTHER VENOUS THROMBO 03/14/2017 NEY ANDERSEN MD, Ot D72.829 ELEVATED WHITE BLOOD CELL COUNT, UNSPECI 03/14/2017 NEY ANDERSEN MD, Ot E03.9 HYPOTHYROIDISM, UNSPECIFIED 03/14/2017 NEY ANDERSEN MD, Ot E11.9 TYPE 2 DIABETES MELLITUS WITHOUT COMPLIC 03/14/2017 NEY ANDERSEN MD, Ot E66.9 OBESITY, UNSPECIFIED 03/14/2017 NEY ANDERSEN MD, Ot F17.210 NICOTINE DEPENDENCE, CIGARETTES, UNCOMPL 03/14/2017 NEY ANDERSEN MD Ot M19.90 UNSPECIFIED OSTEOARTHRITIS, UNSPECIFIED 03/14/2017 NEY ANDERSEN MD, Ot R79.82 ELEVATED C-REACTIVE PROTEIN (CRP) 03/14/2017 NEY ANDERSEN MD, Ot R79.89 OTHER SPECIFIED ABNORMAL FINDINGS OF BLO 03/14/2017 NEY ANDERSEN MD, Ot Z68.35 BODY MASS INDEX (BMI) 35.0-35.9, ADULT 03/14/2017 NEY ANDERSEN MD, Ot Z79.899 OTHER CUSTODIAL (CURRENT) DRUG THERAPY 03/14/2017 NEY ANDERSEN MD, Ot Z80.3 FAMILY HISTORY OF MALIGNANT NEOPLASM OF 03/14/2017 NEY ANDERSEN MD, Ot Z86.718 PERSONAL HISTORY OF OTHER VENOUS THROMBO Procedures Code [place] [address] OFFICE/OUTPATIENT VISIT, ALE GONGORA MD, SAM Foster 04/17/2012 11761 X-RAY EXAM OF FOOT MARA HELTON MD 06/19/2012 22437 OFFICE/OUTPATIENT VISIT, ALE GONGORA MD, SAM Foster 06/19/2012 19689 ROUTINE VENIPUNCTURE KATHY ADAME 07/17/2012 06351 X-RAY EXAM OF FOOT KATHY ADAME 07/17/2012 79007 PROTHROMBIN TIME KATHY ADAME 07/17/2012 91637 OFFICE/OUTPATIENT VISIT, ALE GONGORA MD, SAM Foster 07/17/2012 90201 ROUTINE VENIPUNCTURE MALLY DONNELLY, NADER Tse 10/10/2012 70616 PROTHROMBIN TIME MALLY DONNELLY, NADER Tse 10/10/2012 80291 ROUTINE VENIPUNCTURE NADER BAL MD 10/16/2012 50736 PROTHROMBIN NADER MÉNDEZ MD 10/16/2012 60072 OFFICE/OUTPATIENT VISIT, DIVYA VALDEZ DPM 10/21/2012 76038 ROUTINE VENIPUNCTURE MALLY DONNELLY, NADER Tse 10/24/2012 98779 PROTHROMBIN BLAIR BAL MD, NADER Tse 10/24/2012 76937 ROUTINE VENIPUNCTURE MALLY DONNELLY, NADER Tse 10/30/2012 80074 PROTHROMBIN BLAIR BAL MD, NADER Tse 10/30/2012 88789 ROUTINE VENIPUNCTURE MALLY DONNELLY, NADER Tse 11/06/2012 80026 PROTHROMBIN BLAIR BAL MD, NADER Tse 11/06/2012 07833 ROUTINE VENIPUNCTURE MALLY DONNELLY, NADER Tse 11/13/2012 96650 PROTHROMBIN BLAIR BAL MD, NADER Tse 11/13/2012 63750 X-RAY EXAM OF FOOT NORBERTO CANTU, DIVYA Smith 11/25/2012 04010 OFFICE/OUTPATIENT VISIT, ALE THORNTON DPM, DIVYA B 11/25/2012 06893 ANESTH, UPPER GI VISUALIZE VICTORIA JOHN R 11/27/2012 14402 ANESTH, LOW INTESTINE SCOPE JOHN KESSLER R 11/27/2012 20664 ROUTINE VENIPUNCTURE ROLAN DONNELLY, SAM S 11/27/2012 96432 UPPR GI ENDOSCOPY, DIAGNOSIS ROLAN DONNELLY, SAM S 11/27/2012 56927 COLONOSCOPY AND BIOPSY ROLAN DONNELLY, SAM Foster 11/27/2012 20274 PROTHROMBIN TIME ROLAN DONNELLY, SAM Foster 11/27/2012 91066 TISSUE EXAM BY PATHOLOGIST ROLAN DONNELLY, SAM Foster 11/27/2012 J7120 RINGER'S LACTATE INFUSION ROLAN DONNELLY, SAM Foster 11/27/2012 32426 ROUTINE VENIPUNCTURE MALLY DONNELLY, NADER Tse 12/04/2012 65600 X-RAY EXAM OF FOOT MALLY DONNELLY, NADER Tse 12/04/2012 08482 PROTHROMBIN TIME MALLY DONNELLY, NADER Tse 12/04/2012 57062 ROUTINE VENIPUNCTURE MALLY DONNELLY, NADER Tse 12/11/2012 52057 PROTHROMBIN TIME MALLY DONNELLY, NADER Tse 12/11/2012 66484 PT EVALUATION MALLY DONNELLY, NADER Tse 12/16/2012 70619 ROUTINE DAYAN BAL MD, NADER Tse 12/18/2012 48967 PROTHROMBIN TIME MALLY DONNELLY, NADER Tse 12/18/2012 61039 OFFICE/OUTPATIENT VISIT, ALE THORNTON DPM, DIVYA Smith 12/23/2012 91972 ROUTINE VENIPUNCTURE MALLY DONNELLY, NADER Tes 12/26/2012 45341 PROTHROMBIN TIME MALLY DONNELLY, NADER Tse 12/26/2012 87453 ROUTINE VENIPUNCTURE MALLY DONNELLY, NADER Tse 01/01/2013 02405 PROTHROMBIN TIME MALLY DONNELLY, NADER Tse 01/01/2013 62960 ROUTINE VENIPUNCTURE MALLY DONNELLY, NADER Tse 01/08/2013 61075 PROTHROMBIN TIME MALLY DONNELLY, NADER Tse 01/08/2013 72895 ROUTINE VENIPUNCTURE MALLY DONNELLY, NADER Tse 01/15/2013 55313 PROTHROMBIN TIME MALLY DONNELLY, NADER Tse 01/15/2013 01977 ROUTINE VENIPUNCTURE MALLY DONNELLY, NADER Tse 01/27/2013 50451 PROTHROMBIN TIME MALLY DONNELLY, NADER Tse 01/27/2013 54159 ROUTINE VENIPUNCTURE MALLY DONNELLY, NADER Tse 02/03/2013 46557 PROTHROMBIN TIME MALLY DONNELLY, NADER Tse 02/03/2013 00160 ROUTINE VENIPUNCTURE MALLY DONNELLY, NADER Tse 02/10/2013 66820 PROTHROMBIN BLAIR BAL MD, NADER Tse 02/10/2013 05437 ROUTINE VENIPUNCTURE MALLY DONNELLY, NADER Tse 02/17/2013 11510 PROTHROMBIN TIME MALLY DONNELLY, NADER Tse 02/17/2013 91134 X-RAY EXAM OF FOOT NORBERTO CANTU, DIVYA Smith 02/24/2013 27360 OFFICE/OUTPATIENT VISIT, EST NORBERTO CANTU, DIVYA Smith 02/24/2013 22520 ROUTINE VENIPBABAK BAL MD, NADER Tse 02/24/2013 59305 PROTHROMBIN BLAIR BAL MD, NADER Tse 02/24/2013 13579 ROUTINE VENIPUNCTURE MALLY DONNELLY, NADER Tse 03/03/2013 85451 COMPREHEN METABOLIC PANEL MALLY DONNELLY, NADER Tse 03/03/2013 87125 URINALYSIS, AUTO, W/O SCOPE MALLY DONNELLY, NADER Tse 03/03/2013 56352 COMPLETE CBC W/AUTO DIFF WBC MALLY DONNELLY, NADER Tse 03/03/2013 17433 PROTHROMBIN BLAIR BAL MD, NADER Tse 03/03/2013 35679 ELECTROCARDIOGRAM, TRACING MALLY DONNELLY, NADER Tse 03/03/2013 42122 ROUTINE VENIPUNCTURE NORBERTO CANTU, DIVYA Smith 03/24/2013 15282 PROTHROMBIN TIME NORBERTO CANTU, DIVYA Smith 03/24/2013 59773 OFFICE/OUTPATIENT VISIT, EST NORBERTO CANTU, DIVYA Smith 03/24/2013 33172 ROUTINE VENIPUNCTURE MALLY DONNELLY, NADER Tse 03/31/2013 93814 GONADOTROPIN (FSH) MALLY DONNELLY, NADER Tse 03/31/2013 91640 PROTHROMBIN BLAIR BAL MD, NADER Tse 03/31/2013 55404 ROUTINE VENIPUNCTURE MALLY DONNELLY, NADER Tse 04/07/2013 31096 PROTHROMBIN BLAIR BAL MD, NADER Tse 04/07/2013 58471 ROUTINE VENIPUNCTURE MALLY DONNELLY, NADER Tse 04/14/2013 89135 PROTHROMBIN BLAIR BAL MD, NADER Tse 04/14/2013 39322 OFFICE/OUTPATIENT VISIT, EST NORBERTO CANTU, DIVYA Smith 2013 65941 ROUTINE VENIPUNCTURE MALLY DONNELLY, NADER Tse 2013 28500 PROTHROMBIN BLAIR BAL MD, NADER Tse 2013 18350 ROUTINE VENIPUNCTURE MALLY DONNELLY, NADER Tse 04/28/2013 93635 PROTHROMBIN BLAIR BAL MD, NADER Tse 04/28/2013 95561 ROUTINE VENIPUNCTURE MALLY DONNELLY, NADER Tse 05/05/2013 77509 ASSAY OF FREE THYROXINE MALLY DONNELLY , NADER Tse 05/05/2013 24734 ASSAY THYROID STIM HORMONE MALLY DONNELLY, NADER Tse 05/05/2013 27652 PROTHROMBIN BLAIR BAL MD, NADER Tse 05/05/2013 18774 ROUTINE VENIPBABAK BAL MD, NADER Tse 05/12/2013 57653 BETTY BAL MD, NADER Tse 05/12/2013 41692 ROUTINE VENIPBABAK BAL MD, NADER Tse 05/18/2013 54903 PROTHROMBIN BLAIR BAL MD, NADER Tse 05/18/2013 52244 PT EVALUATION NORBERTO CANTU, DIVYA Smith 05/18/2013 64059 GAIT TRAINING THERAPY NORBERTO CANTU, DIVYA Smith 05/20/2013 82171 THERAPEUTIC EXERCISES NORBERTO CANTU, DIVYA Smith 05/22/2013 67174 GAIT TRAINING THERAPY NORBERTO CANTU, DIVYA Smith 05/22/2013 68099 ROUTINE VENKEENAN BAL MD, NADER Tse 05/26/2013 11759 PROTHROMBIN BLAIR BAL MD, NADER Tse 05/26/2013 06718 GAIT TRAINING THERAPY DIVYA THORNTON DPM 05/26/2013 41144 ROUTINE VENKEENAN BAL MD, NADER Tse 06/02/2013 10831 PROTHROMBIN BLAIR BAL MD, NADER Tse 06/02/2013 29008 THERAPEUTIC EXERCISES DIVYA THORNTON DPM 06/03/2013 91569 GAIT TRAINING THERAPY DIVYA THORNTON DPM 06/03/2013 78123 GAIT TRAINING THERAPY NORBERTO CANTU, DIVYA Smith 06/05/2013 63628 MANUAL THERAPY NORBERTO CANTU, DIVYA Smith 06/05/2013 78015 ROUTINE VENIPBABAK BAL MD, NADER Tse 06/09/2013 12809 PROTHROMBIN BLAIR BAL MD, NADER Tse 06/09/2013 70160 GAIT TRAINING THERAPY THORNTON DPM, DIVYA B 06/09/2013 53302 MANUAL THERAPY NORBERTO GLEASONM, DIVYA B 06/09/2013 47095 GAIT TRAINING THERAPY NORBERTO GLEASONM, DIVYA B 06/12/2013 35720 MANUAL THERAPY NORBERTO CANTU, DIVYA B 06/12/2013 99604 ROUTINE VENIPUNCTURE MALLY DONNELLY, NADER Tse 06/16/2013 30584 PROTHROMBIN TIME MALLY DONNELLY, NADER Tse 06/16/2013 35142 THERAPEUTIC EXERCISES NORBERTO GLEASONM, DIVYA B 06/16/2013 73627 GAIT TRAINING THERAPY NORBERTO CANTU, DIVYA B 06/16/2013 75194 MANUAL THERAPY NORBERTO CANTU, DIVYA B 06/16/2013 48398 ROUTINE VENIPUNCTURE MALLY DONNELLY, NADER Tse 06/22/2013 23278 PROTHROMBIN TIME MALLY DONNELLY, NADER Tse 06/22/2013 84796 GAIT TRAINING THERAPY NORBERTO CANTU, DIVYA B 06/22/2013 52400 MANUAL THERAPY NORBERTO GLEASONM, DIVYA B 06/22/2013 G8981 BODY POS CURRENT STATUS NORBERTO DPM, DIVYA B 06/22/2013 G8982 BODY POS GOAL STATUS THORNTON DPM, DIVYA B 06/22/2013 32043 ROUTINE VENIPUNCTURE MALLY DONNELLY, NADER Tse 06/30/2013 50824 PROTHROMBIN TIME MALLY DONNELLY, NADER Tse 06/30/2013 44911 THERAPEUTIC EXERCISES NORBERTO CANTU, DIVYA B 07/03/2013 59494 GAIT TRAINING THERAPY NORBERTO GLEASONM, DIVYA B 07/03/2013 46029 MANUAL THERAPY NORBERTO GLEASONM, DIVYA B 07/03/2013 18130 THERAPEUTIC EXERCISES NORBERTO GLEASONM, DIVYA B 07/06/2013 16059 GAIT TRAINING THERAPY NORBERTO DPM, DIVYA B 07/06/2013 65419 MANUAL THERAPY NORBERTO GLEASONM, DIVYA B 07/06/2013 20280 THERAPEUTIC EXERCISES NORBERTO GLEASONM, DIVYA B 07/09/2013 00330 GAIT TRAINING THERAPY NORBERTO GLEASONM, DIVYA B 07/09/2013 61871 ROUTINE VENIPUNCTURE NADER BAL MD 07/10/2013 31018 PROTHROMBIN TIME NADER BAL MD 07/10/2013 66968 THERAPEUTIC EXERCISES NORBERTO CANTU, DIVYA B 07/13/2013 31338 GAIT TRAINING THERAPY THORNTON DP, DIVYA B 07/13/2013 60455 MANUAL THERAPY NORBERTO GLEASONM, DIVYA B 07/13/2013 32170 ROUTINE VENIPUNCTURE NADER BAL MD 07/16/2013 21489 COMP SCREEN MAMMOGRAM ADD-ON NADER BAL MD 07/16/2013 52035 PROTHROMBIN TIME NADER BAL MD 07/16/2013 G0202 SCREENINGMAMMOGRAPHYDIGITAL NADER BAL MD 07/16/2013 57846 GAIT TRAINING THERAPY NORBERTO CANTU, DIVYA B 07/16/2013 06005 MANUAL THERAPY NORBERTO CANTU, DIVYA B 07/16/2013 20900 THERAPEUTIC EXERCISES NORBERTO CANTU, DIVYA B 07/20/2013 74285 GAIT TRAINING THERAPY NORBERTO CANTU, DIVYA B 07/20/2013 93444 MANUAL THERAPY NORBERTO CANTU, DIVYA B 07/20/2013 23843 ROUTINE VENIPUNCTURE NADER BAL MD 07/23/2013 09894 PROTHROMBIN TIME NADER BAL MD 07/23/2013 12379 THERAPEUTIC EXERCISES NORBERTO CANTU, DIVYA B 07/23/2013 81538 GAIT TRAINING THERAPY NORBERTO GLEASON, DIVYA B 07/23/2013 96772 MANUAL THERAPY NORBERTO CANTU, DIVYA B 07/23/2013 17168 THERAPEUTIC EXERCISES NORBERTO CANTU, DIVYA B 07/27/2013 86376 GAIT TRAINING THERAPY NORBERTO GLEASON, DIVYA B 07/27/2013 09768 MANUAL THERAPY NORBERTO CANTU, DIVYA B 07/27/2013 62733 ROUTINE VENIPUNCTURE NADER BAL MD 07/30/2013 52656 PROTHROMBIN TIME NADER BAL MD 07/30/2013 12688 THERAPEUTIC EXERCISES IDVYA THORNTON DPM B 07/30/2013 31895 GAIT TRAINING THERAPY NORBERTO CANTU, DIVYA B 07/30/2013 19217 MANUAL THERAPY NORBERTO CANTU, DIVYA B 07/30/2013 53855 ROUTINE VENIPUNCTURE NADER BAL MD 08/06/2013 72086 PROTHROMBIN TIME NADER BAL MD 08/06/2013 26383 THERAPEUTIC EXERCISES DIVYA THORNTON DPM B 08/06/2013 57664 GAIT TRAINING THERAPY NORBERTO CANTU, DIVYA B 08/06/2013 97429 THERAPEUTIC EXERCISES THORNTON DPM, DIVYA Sarah 08/11/2013 G8982 BODY POS GOAL STATUS THORNTON DPM, DIVYA Sarah 08/11/2013 G8983 BODY POS D/C STATUS NORBERTO CANTU, DIVYA B 08/11/2013 15312 ROUTINE VENIPUNCTURE NADER BAL MD 08/12/2013 21857 PROTHROMBIN TIME NADER BAL MD 08/12/2013 Results Test Result Range Protime - 10/16/12 16:10 Protime 15.4 SEC 9.9-11.9 INR 1.38 Protime - 10/24/12 11:05 Protime 15.7 SEC 9.9-11.9 INR 1.41 Protime - 10/30/12 11:40 Protime 15.5 SEC 9.9-11.9 INR 1.39 Protime - 11/27/12 09:55 Protime 10.8 SEC 9.9-11.9 INR 0.96 Protime - 12/04/12 10:38 Protime 9.8 SEC 9.9-11.9 INR 0.87 Protime - 12/11/12 14:10 Protime 24.0 SEC 9.9-11.9 INR 2.18 Protime - 12/18/12 14:12 Protime 36.3 SEC 9.9-11.9 INR 3.34 Protime - 12/26/12 09:45 Protime 36.1 SEC 9.9-11.9 INR 3.32 Protime - 01/01/13 11:11 Protime 44.9 SEC 9.9-11.9 INR 4.16 Protime - 01/08/13 10:55 Protime 55.0 SEC 9.9-11.9 INR 5.12 Protime - 01/15/13 13:23 Protime 54.1 SEC 9.9-11.9 INR 5.04 Protime - 01/27/13 15:30 Protime 12.9 SEC 9.9-11.9 INR 1.14 Protime - 02/03/13 09:24 Protime 18.1 SEC 9.9-11.9 INR 1.60 Protime - 02/10/13 13:30 Protime 28.2 SEC 10.0-12.8 INR 2.48 Protime - 02/17/13 09:26 Protime 33.2 SEC 10.0-12.8 INR 2.92 Protime - 02/24/13 09:33 Protime 13.0 SEC 10.0-12.8 INR 1.15 Protime - 03/03/13 13:39 Protime 58.5 SEC 10.0-12.8 INR 5.11 COMPLETE BLOOD COUNT - 03/03/13 15:30 Baso # 0.13 10^3u 0.00-0.80 Baso % 1.21 % 0.0-1.7 Eos # 0.38 10^3u 0.03-0.44 Eos % 3.5 % 0.60-7.30 HCT 46.7 % 37.7-53.7 HGB 15.2 G/DL 10.8-14.2 Lymph # 3.55 10^3u 1.09-2.99 Lymph % 32.7 % 18.0-48.3 MCH 30.7 PG 27.0-31.2 MCHC 32.6 G/DL 31.8-35.4 MCV 94 FL 81.1-96.0 Gallia # 1.04 10^3u 0.24-0.79 Gallia % 9.6 % 4.4-12.7 MPV 7.8 FL 6.9-10.6 Platelet 317 10^3u 155-366 RBC 4.95 10^6u 3.60-4.69 RDW 14.0 % 11.5-14.5 Neut # 5.75 10^3u 1.63-6.96 Neut % 53.0 % 39.9-73.7 WBC 10.9 10^3u 3.70-10.1 Urinalysis - 03/03/13 15:30 Bilirubin Negative Negative Blood Negative Negative Color Yellow Glucose Negative MG/DL Negative Ketone Negative MG/DL Negative Leukocytes Negative Negative Nitrites Negative Negative pH 5.0 5.0-8.0 Urine Appearance Clear Clear Protein Negative MG/DL Negative SG 1.010 1.001-1.025 Urobilinogen 0.2 MG/DL 0.1-1.0 CMP - EGFR - 03/03/13 15:30 Albumin 4.1 G/DL 3.5-5.1 Alk Phos 100 U/L 38-126 ALT 28 U/L 11-66 AST 26 U/L 15-46 BUN 12 MG/DL 7-17 Calcium 9.0 MG/DL 8.4-10.3 Chloride 105 MMOLL 98-107 CO2 26 MMOLL 22-30 Creatinine 1.0 MG/DL 0.7-1.2 EGFR 59 MLMIN 90-120 Glucose 78 MG/DL 65-110 Potassium 5.1 MMOLL 3.6-5.0 Sodium 147 MMOLL 137-145 T Bili .2 MG/DL 0.2-1.3 T. Protein 7.8 G/DL 6.3-8.2 Protime - 03/24/13 12:07 Protime 57.0 SEC 9.3-12.1 INR 5.4 1.0-1.5 FSH - 03/31/13 10:14 FSH SQR Estrone - 03/31/13 10:14 Estrone SQR Protime - 03/31/13 10:14 Protime 43.5 SEC 10.0-12.8 INR 3.81 Protime - 04/07/13 12:54 Protime 26.4 SEC 10.0-12.8 INR 2.33 Protime - 04/14/13 09:30 Protime 32.4 SEC 10.0-12.8 INR 2.85 Protime - 04/21/13 15:40 Protime 24.8 SEC 10.0-12.8 INR 2.19 Protime - 04/28/13 09:29 Protime 37.9 SEC 10.0-12.8 INR 3.33 Protime - 05/05/13 09:54 Protime 38.6 SEC 10.0-12.8 INR 3.39 Free T4 - 05/05/13 09:54 Free T4 1.14 NG/DL 0.70-1.48 TSH - 05/05/13 09:54 TSH 0.6127 UIUML 0.35-4.94 Protime - 05/12/13 09:03 Protime 51.9 SEC 10.0-12.8 INR 4.54 Protime - 05/18/13 10:45 Protime 27.0 SEC 10.0-12.8 INR 2.38 Protime - 05/26/13 09:10 Protime 30.6 SEC 10.0-12.8 INR 2.69 Protime - 06/02/13 08:35 Protime 19.7 SEC 10.0-12.8 INR 1.77 Protime - 06/09/13 10:12 Protime 26.4 SEC 10.0-12.8 INR 2.39 Protime - 06/16/13 09:26 Protime 20.1 SEC 10.0-12.8 INR 1.81 Protime - 06/22/13 10:45 Protime 29.9 SEC 10.0-12.8 INR 2.71 Protime - 06/30/13 09:22 Protime 25.1 SEC 10.0-12.8 INR 2.27 Protime - 07/10/13 09:14 Protime 21.1 SEC 10.0-12.8 INR 1.90 Protime - 07/23/13 10:35 Protime 32.4 SEC 10.0-12.8 INR 2.94 Protime - 07/30/13 12:21 Protime 29.5 SEC 10.0-12.8 INR 2.67 Protime - 08/06/13 10:30 Protime 27.7 SEC 10.0-12.8 INR 2.51 Protime - 08/12/13 09:51 Protime 11.4 SEC 10.0-12.8 INR 1.01 Methicillin resistant Staphylococcus aureus (MRSA) screening culture - 12:00 Methicillin resistant Staphylococcus aureus (MRSA) screening culture NEG NRG Urine beta human chorionic gonadotropin (hCG) measurement - 07/11/16 08:10 Urine beta human chorionic gonadotropin (hCG) measurement NEGATIVE NEGATIVE Capillary blood glucose measurement by glucometer (mass/volume) - 07/11/16 08: 23 Capillary blood glucose measurement by glucometer (mass/volume) 146 mg/dL 70-110 Methicillin resistant Staphylococcus aureus (MRSA) screening culture - 12:30 Methicillin resistant Staphylococcus aureus (MRSA) screening culture NEG NRG Capillary blood glucose measurement by glucometer (mass/volume) - 02/06/17 06: 25 Capillary blood glucose measurement by glucometer (mass/volume) 135 mg/dL 70-110 Complete blood count (CBC) with automated white blood cell (WBC) differential - 03/14/17 10:15 Blood leukocytes automated count (number/volume) 11.0 10*3/ uL 4.3-11.0 Blood erythrocytes automated count (number/volume) 4.35 10*6 /uL 4.35-5.85 Venous blood hemoglobin measurement (mass/volume) 13.1 g/dL 11.5-16.0 Blood hematocrit (volume fraction) 40 % 35-52 Automated erythrocyte mean corpuscular volume 93 [foz_us] 80-99 Automated erythrocyte mean corpuscular hemoglobin (mass per erythrocyte) 30 pg 25-34 Automated erythrocyte mean corpuscular hemoglobin concentration measurement ( mass/volume) 33 g/dL 32-36 Automated erythrocyte distribution width ratio 14.5 % 10.0-14.5 Automated blood platelet count (count/volume) 352 10*3/uL 130-400 Automated blood platelet mean volume measurement 9.8 [foz_us ] 7.4-10.4 Automated blood neutrophils/100 leukocytes 64 % 42-75 Automated blood lymphocytes/100 leukocytes 24 % 12-44 Blood monocytes/100 leukocytes 7 % 0-12 Automated blood eosinophils/100 leukocytes 4 % 0-10 Automated blood basophils/100 leukocytes 1 % 0-10 Blood neutrophils automated count (number/volume) 7.1 10*3 1.8-7.8 Blood lymphocytes automated count (number/volume) 2.7 10*3 1.0-4.0 Blood monocytes automated count (number/volume) 0.8 10*3 0.0-1.0 Automated eosinophil count 0.4 10*3/uL 0.0-0.3 Automated blood basophil count (count/volume) 0.1 10*3/uL 0.0-0.1 Methicillin resistant Staphylococcus aureus (MRSA) screening culture - 10:15 Methicillin resistant Staphylococcus aureus (MRSA) screening culture NEG NRG Capillary blood glucose measurement by glucometer (mass/volume) - 03/21/17 08: 04 Capillary blood glucose measurement by glucometer (mass/volume) 128 mg/dL 70-110 Capillary blood glucose measurement by glucometer (mass/volume) - 03/21/17 16: 28 Capillary blood glucose measurement by glucometer (mass/volume) 118 mg/dL 70-110 Capillary blood glucose measurement by glucometer (mass/volume) - 03/21/17 21: 54 Capillary blood glucose measurement by glucometer (mass/volume) 165 mg/dL 70-110 Capillary blood glucose measurement by glucometer (mass/volume) - 03/22/17 05: 24 Capillary blood glucose measurement by glucometer (mass/volume) 121 mg/dL 70-110 Capillary blood glucose measurement by glucometer (mass/volume) - 03/22/17 11: 06 Capillary blood glucose measurement by glucometer (mass/volume) 192 mg/dL 70-110 Encounters ACCT No. Visit Date/Time Discharge Status Pt. Type Provider Facility Loc./Unit Complaint [id number] 2013 10:42:00 2013 [id number] 11:49:00 03/24[facility]2013 [facility]49[id number] 10:34:00 02/24/2013 10 :34:[id number]2012 10:51:00 12/23/2012 10 :51:00 [id number]/25/2012 11:50:00 11/25/2012 11 :50:00 DIS Outpatient [facility] D[facility], [facility] [id number] 10/21/2012 11:04:00 10/21/2012 11 :04[facility]
== END 2017-03-22 15:15 | disposition home or self-care (01) ==
LOC: SDC 07:45 → 4TH 14:20 → SDC 03-22 15:15
PROVIDERS: ATTEND Surgery
DX: K43.2 Incisional hernia without obstruction or gangrene (principal); I10 Essential (primary) hypertension; E11.9 Type 2 diabetes mellitus without complications; E03.9 Hypothyroidism, unspecified; F41.9 Anxiety disorder, unspecified; F32.9 Major depressive disorder, single episode, unspecified; F17.210 Nicotine dependence, cigarettes, uncomplicated; Z79.84 Long term (current) use of oral hypoglycemic drugs; Z79.899 Other long term (current) drug therapy
CPT/HCPCS: 82962; 94664

== ENCOUNTER 2017-04-23 11:19 | Outpatient (RCR) | payer MEDICARE, MEDICAID ==
[~2017-04-23 11:19] MED LIST changes: +DOCU-238 PO; +DULO60CA58 PO; +HYDR-3816 PO; +LIDO700A45 TP; +MUPI1OIN6 TP; +OMEP40CA36 PO; +POTA10CA43 PO; +RANI150T11 PO
== END 2017-04-29 16:00 | disposition home or self-care (01) ==
LOC: WOUNDCARE 11:19
PROVIDERS: ATTEND Nurse Practitioner
DX: E11.621 Type 2 diabetes mellitus with foot ulcer (principal); L97.512 Non-pressure chronic ulcer of other part of right foot with fat layer exposed; L97.522 Non-pressure chronic ulcer of other part of left foot with fat layer exposed
CPT/HCPCS: 11042; 99212

== ENCOUNTER → 2017-06-25 | Outpatient (CLI) | payer MEDICARE, MEDICAID | LOC: WOUNDCARE 08:03 | PROVIDERS: ATTEND Nurse Practitioner | DX: E11.621 Type 2 diabetes mellitus with foot ulcer (principal); L97.511 Non-pressure chronic ulcer of other part of right foot limited to breakdown of skin; L97.522 Non-pressure chronic ulcer of other part of left foot with fat layer exposed | CPT/HCPCS: 11042 ==

== ENCOUNTER → 2017-07-02 | Outpatient (CLI) | payer MEDICARE, MEDICAID | LOC: WOUNDCARE 10:08 | PROVIDERS: ATTEND Nurse Practitioner | DX: E11.621 Type 2 diabetes mellitus with foot ulcer (principal); L97.511 Non-pressure chronic ulcer of other part of right foot limited to breakdown of skin; L97.522 Non-pressure chronic ulcer of other part of left foot with fat layer exposed | CPT/HCPCS: 11042 ==

== ENCOUNTER → 2017-07-09 | Outpatient (CLI) | payer MEDICARE, MEDICAID | LOC: WOUNDCARE 09:51 | PROVIDERS: ATTEND Nurse Practitioner | DX: E11.621 Type 2 diabetes mellitus with foot ulcer (principal); L97.511 Non-pressure chronic ulcer of other part of right foot limited to breakdown of skin; L97.522 Non-pressure chronic ulcer of other part of left foot with fat layer exposed | CPT/HCPCS: 99212 ==

== ENCOUNTER 2017-07-22 09:58 | Outpatient (CLI) | payer MEDICARE, MEDICAID ==
[~2017-07-22] VITALS: Ht 154.9 cm; Wt 71.8 kg
[2017-07-22] MEDS ORDERED: BUPR100T7 PO (10:14)
[2017-07-22] MEDS ORDERED: OMEP40CA36 PO (10:14)
[2017-07-22] MEDS ORDERED: LIRA0.6P SQ (10:14)
[2017-07-22 10:18] VITALS: BP 111/77
[2017-07-22 10:52] LABS: BASOPHILS # (AUTO) 0.1 10^3/uL (0.0-0.1); BASOPHILS % (AUTO) 1 % (0-10); EOSINOPHILS # (AUTO) 0.7 10^3/uL (0.0-0.3); EOSINOPHILS % (AUTO) 6 % (0-10); LYMPHOCYTES # (AUTO) 3.5 X 10^3 (1.0-4.0); LYMPHOCYTES % (AUTO) 30 % (12-44); MEAN CORPUSCULAR HEMOGLOBIN 31 PG (25-34); MEAN CORPUSCULAR HGB CONC 33 G/DL (32-36); MEAN CORPUSCULAR VOLUME 92 FL (80-99); MEAN PLATELET VOLUME 10.2 FL (7.4-10.4); MONOCYTES # (AUTO) 0.9 X 10^3 (0.0-1.0); MONOCYTES % (AUTO) 8 % (0-12); NEUTROPHILS # (AUTO) 6.5 X 10^3 (1.8-7.8); NEUTROPHILS % (AUTO) 56 % (42-75); PLATELET COUNT 330 10^3/uL (130-400); RED BLOOD COUNT 4.59 10^6/uL (4.35-5.85); RED CELL DISTRIBUTION WIDTH 13.7 % (10.0-14.5); WHITE BLOOD COUNT 11.6 10^3/uL (4.3-11.0)
[2017-07-22 11:11] LABS: ANION GAP 6 MMOL/L (5-14); BLOOD UREA NITROGEN 6 MG/DL (7-18); BUN/CREATININE RATIO 9; CALCIUM 9.7 MG/DL (8.5-10.1); CARBON DIOXIDE 27 MMOL/L (21-32); CHLORIDE 105 MMOL/L (98-107); CREATININE SERUM 0.66 MG/DL (0.60-1.30); GFR ESTIMATED > 60; GLUCOSE 81 MG/DL (70-105); POTASSIUM 4.3 MMOL/L (3.6-5.0); SODIUM 138 MMOL/L (135-145)
== END 2017-07-22 13:29 | disposition home or self-care (01) ==
LOC: PREOP 09:58
PROVIDERS: ATTEND Surgery
DX: Z01.812 Encounter for preprocedural laboratory examination (principal); K46.9 Unspecified abdominal hernia without obstruction or gangrene
CPT/HCPCS: 36415; 80048; 85025; 87081

== ENCOUNTER 2017-07-25 08:15 | Day surgery (SDC) | payer MEDICARE, MEDICAID ==
[~2017-07-25] VITALS: Ht 154.9 cm; Wt 71.8 kg
[~2017-07-25 08:15] MED LIST changes: +BUPR100T7 PO; +LIRA0.6P SQ
--- OUTSIDE RECORDS SUMMARY | 2017-07-25 08:19 | XMS REPORT ---
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 Active 418449775 Problem Fatty liver K76.0 Active 211688376 Problem Chronic prescription benzodiazepine use Z79.899 Active 891852129 Problem Morbid obesity due to excess calories E66.01 Active 709017314 Problem DM neuro manif type II E11.49 Active 67077662 Problem Elevated ALT measurement R74.0 Active 536883947 Problem Leukocytosis, unspecified type D72.829 Active 898714398 Problem Periodic limb movement sleep disorder G47.61 Active 522426581 Problem Presence of IVC filter Z95.828 Active 418712434 Problem 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 435494259635647 Problem Type 2 diabetes mellitus with diabetic polyneuropathy E11.42 Active 374548832 Problem Delayed gastric emptying K30 Active 101685050 Problem Essential hypertension I10 Active 40069622 Problem Anxiety F41.9 Active 01753267 Problem Gastroesophageal reflux disease, esophagitis presence not specified K21.9 Active 444331513 Problem Hirsutism L68.0 Active 508732853 Problem Hypothyroidism, unspecified hypothyroidism type E03.9 Active 55934570 Problem Primary insomnia F51.01 Active 189437543 ALLERGIES No Information SOCIAL HISTORY Never Assessed PLAN OF CARE VITAL SIGNS MEDICATIONS Medication Instructions Dosage Frequency Start Date End Date Duration Status Contrave 8-90 MG Orally Twice a day 2 tablets 12h Nov, 30 day(s ) Active RESULTS No Results PROCEDURES No Known procedures IMMUNIZATIONS No Known Immunizations MEDICAL (GENERAL) HISTORY Type Description Date Medical History degenerative disk disease Medical History scoliosis Medical History arthritis Medical History hypertension Medical History hypothyroidsim Medical History PTSD Medical History Type 2 diabetes Medical History Guillain-[place] syndrome Surgical History 5 hernia surgeries Surgical History tonsillectomy and adenoidectomy Surgical History bladder sling Surgical History 2 surgeries on R foot for tissue buildup & bone spur Surgical History inferior vena cava filter 11/2005 Surgical History carpal tunnel release Surgical History Right shoulder two torn ligament repair 2015 Surgical History Trigger finger repair on right hand 02/06/2017 Hospitalization History [facility]
--- OUTSIDE RECORDS SUMMARY | 2017-07-25 08:19 | XMS REPORT | Clinical Summary ---
Author Author [facility] Organization [facility] Address Unknown Phone Unavailable Care Team Providers Care Print Line Feeder Name Role Phone PCP Unavailable Source Comments Some departments are not documenting in the electronic medical record. If you do not see the information that you expected, contact Release of Information in the Health Information Management department at [phone] for further assistance in locating additional records.[facility] Allergies No Known Allergies Current Medications Prescription Sig. [...] Packs/Day Years Used Date Light Tobacco Smoker Sex Assigned at Date Recorded Not on file Last Filed Vital Signs Vital Sign Reading Time Taken Blood Pressure 119/84 11/02/2015 1:12 PM [employer]GAL SERVICE SPECIALIST Pulse 90 11/02/2015 1:12 PM [employer]GAL SERVICE SPECIALIST Temperature 36.8 C (98.2 F) 11/02/2015 1:11 PM LEGAL SERVICE SPECIALIST Respiratory Rate 18 11/02/2015 1:11 PM LEGAL SERVICE SPECIALIST Oxygen Saturation - - Inhaled Oxygen - - Concentration Weight 87 kg (191 lb 12.8 oz) 11/02/2015 1:11 PM LEGAL SERVICE SPECIALIST Height 152.4 cm (5') 11/02/2015 1:11 PM LEGAL SERVICE SPECIALIST Body Mass Index 37.46 11/02/2015 1:11 PM LEGAL SERVICE SPECIALIST Plan of Treatment Health Maintenance Due Date Last Done Comments HEPATITIS C SCREENING 1965 PHYSICAL (COMPREHENSIVE) 1972 EXAM PERTUSSIS VACCINE 1976 TETANUS VACCINE 1982 CERVICAL CANCER SCREENING 1995 BREAST CANCER SCREENING 2005 COLORECTAL CANCER 2015 SCREENING INFLUENZA VACCINE 04/30/2017 Results Not on filefrom Last 3 Months
--- OUTSIDE RECORDS SUMMARY | 2017-07-25 08:20 | XMS REPORT ---
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 Active 788532888 Problem Elevated ALT measurement R74.0 Active 742343258 Problem Type II or unspecified type diabetes mellitus with neurological manifestations, not stated as uncontrolled E11.49 Active 76667187 Problem BMI 37.0-37.9, adult Z68.37 Active 756275062 Problem Chronic prescription benzodiazepine use Z79.899 Active 363048782 Problem Fatty liver K76.0 Active 223059755 Problem Delayed gastric emptying K30 Active 452088532 Problem Periodic limb movement sleep disorder G47.61 Active 094272532 Problem DM neuro manif type II E11.49 Active 47759314 Problem Morbid obesity due to excess calories E66.01 Active 105371067 Problem Leukocytosis, unspecified type D72.829 Active 958086105 Problem Presence of IVC filter Z95.828 Active 671878322 Problem Gastroesophageal reflux disease, esophagitis presence not specified K21.9 Active 458252241 Problem Hirsutism L68.0 Active 232782395 Problem Anxiety F41.9 Active 33810584 Problem Hypothyroidism, unspecified hypothyroidism type E03.9 Active 80886197 Problem Mixed hyperlipidemia E78.2 Active 067519474 Problem 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
--- OUTSIDE RECORDS SUMMARY | 2017-07-25 08:20 | XMS REPORT ---
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 Active 257767517 Problem Fatty liver K76.0 Active 730382196 Problem Chronic prescription benzodiazepine use Z79.899 Active 992134590 Problem Morbid obesity due to excess calories E66.01 Active 579638744 Problem DM neuro manif type II E11.49 Active 31115505 Problem Elevated ALT measurement R74.0 Active 113163459 Problem Leukocytosis, unspecified type D72.829 Active 656915582 Problem Periodic limb movement sleep disorder G47.61 Active 151244256 Problem Presence of IVC filter Z95.828 Active 369520503 Problem 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 501265365667579 Problem Type 2 diabetes mellitus with diabetic polyneuropathy E11.42 Active 648118803 Problem Delayed gastric emptying K30 Active 527007254 Problem Essential hypertension I10 Active 09769676 Problem Anxiety F41.9 Active 72388172 Problem Gastroesophageal reflux disease, esophagitis presence not specified K21.9 Active 850035645 Problem Hirsutism L68.0 Active 055235071 Problem Hypothyroidism, unspecified hypothyroidism type E03.9 Active 91948415 Problem Primary insomnia F51.01 Active 903413302 ALLERGIES No Information SOCIAL HISTORY Never Assessed PLAN OF CARE VITAL SIGNS MEDICATIONS Medication Instructions Dosage Frequency Start Date End Date Duration Status Promethazine HCl 25 MG Orally every 6 hours as needed 1 tablet as needed 15 Active RESULTS No Results PROCEDURES No Known [...]
--- OUTSIDE RECORDS SUMMARY | 2017-07-25 08:20 | XMS REPORT ---
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 Active 884093299 Problem Fatty liver K76.0 Active 401645070 Problem Chronic prescription benzodiazepine use Z79.899 Active 336576085 Problem Morbid obesity due to excess calories E66.01 Active 915864947 Problem DM neuro manif type II E11.49 Active 47044361 Problem Elevated ALT measurement R74.0 Active 113747989 Problem Leukocytosis, unspecified type D72.829 Active 094515298 Problem Periodic limb movement sleep disorder G47.61 Active 728513910 Problem Presence of IVC filter Z95.828 Active 782738591 Problem 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 125541717451120 Problem Type 2 diabetes mellitus with diabetic polyneuropathy E11.42 Active 846984236 Problem Delayed gastric emptying K30 Active 741643585 Problem Essential hypertension I10 Active 79902002 Problem Anxiety F41.9 Active 87352841 Problem Gastroesophageal reflux disease, esophagitis presence not specified K21.9 Active 374641283 Problem Hirsutism L68.0 Active 009545889 Problem Hypothyroidism, unspecified hypothyroidism type E03.9 Active 74054281 Problem Primary insomnia F51.01 Active 577635275 ALLERGIES No Information SOCIAL HISTORY Never Assessed PLAN OF CARE VITAL SIGNS MEDICATIONS Unknown Medications RESULTS No Results PROCEDURES No Known procedures [...]
--- OUTSIDE RECORDS SUMMARY | 2017-07-25 08:20 | XMS REPORT ---
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 Active 685204337 Problem Fatty liver K76.0 Active 471803446 Problem Chronic prescription benzodiazepine use Z79.899 Active 745351584 Problem Morbid obesity due to excess calories E66.01 Active 422665283 Problem DM neuro manif type II E11.49 Active 61866377 Problem Elevated ALT measurement R74.0 Active 069357209 Problem Leukocytosis, unspecified type D72.829 Active 756040546 Problem Periodic limb movement sleep disorder G47.61 Active 456887284 Problem Presence of IVC filter Z95.828 Active 941637465 Problem 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 Unknown Non Drug Allergy Oct, Unknown SOCIAL HISTORY No smoking Hx information available PLAN OF CARE Activity Details Follow Up 3 Months Reason:DMII VITAL SIGNS Height 61 in 2016-10-31 Weight 185.0 lbs 2016-10-31 Temperature 97.0 degrees Fahrenheit 2016-10-31 Heart Rate 80 bpm 2016-10-31 Respiratory Rate 20 2016-10-31 BMI 34.95 kg/m2 2016-10-31 Blood pressure systolic 126 mmHg 2016-10-31 Blood pressure diastolic 78 mmHg 2016-10-31 MEDICATIONS Medication Instructions Dosage Frequency Start Date End Date Duration Status Multivitamin Active Ibuprofen 200 MG Orally every 6 hrs 1 tablet as needed 6h Active Duloxetine HCl 60 MG Orally Once a day 1 capsule 24h 30 Active Levothyroxine Sodium 50 MCG Orally Once a day 1 tablet 24h 30 Active Metformin HCl 500 MG Orally Twice a day 1 tablet with meals 12h Active Contrave 8-90 MG Orally Twice a day 2 tablets 12h 06 Jun, 2016 Dec, 30 days Active Omeprazole 40 mg Orally Once a day 1 capsule 24h Jun, 30 day(s ) Active Potassium Chloride 10 MEQ Orally Twice a day 1 capsule 12h 30 Active Ranitidine HCl 150 MG Orally Twice a day 1 capsule 12h 30 Active Pravastatin Sodium 40 mg Orally Once a day 1 tablet 24h Active Lisinopril 5 mg Orally Once a day 1 tablet 24h Active Promethazine HCl 25 MG Orally every 6 hours as needed 1 tablet as needed 15 Active RESULTS Name Result Date Reference Range A1C (IN HOUSE) 2016-10-31 A1C IN HOUSE 6.5 4.3 - 5.6 % Previous A1c 6.4 Lot [id number] Exp date 07/2018 PROCEDURES Procedure Date Ordered Related Diagnosis Body Site GLYCATED HEMOGLOBIN TEST Oct 31, 2016 [facility] VISIT ESTABLISHED PATIENT Oct 31, 2016 Office Visit, Est Pt., Level 3 Oct 31, 2016 IMMUNIZATIONS No Known Immunizations
--- OUTSIDE RECORDS SUMMARY | 2017-07-25 08:20 | XMS REPORT ---
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 Active 414333560 Problem Fatty liver K76.0 Active 415347712 Problem Chronic prescription benzodiazepine use Z79.899 Active 018112898 Problem Morbid obesity due to excess calories E66.01 Active 573018689 Problem DM neuro manif type II E11.49 Active 22938561 Problem Elevated ALT measurement R74.0 Active 724162617 Problem Leukocytosis, unspecified type D72.829 Active 749013019 Problem Periodic limb movement sleep disorder G47.61 Active 861126519 Problem Presence of IVC filter Z95.828 Active 061441949 Problem 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
--- OUTSIDE RECORDS SUMMARY | 2017-07-25 08:21 | XMS REPORT ---
Author Author ASPEN GEO Organization 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 Active 920290660 Problem Fatty liver K76.0 Active 303853247 Problem Chronic prescription benzodiazepine use Z79.899 Active 846770703 Problem Morbid obesity due to excess calories E66.01 Active 351253137 Problem DM neuro manif type II E11.49 Active 58292031 Problem Elevated ALT measurement R74.0 Active 468740172 Problem Leukocytosis, unspecified type D72.829 Active 302045661 Problem Periodic limb movement sleep disorder G47.61 Active 013202576 Problem Presence of IVC filter Z95.828 Active 566142222 Problem 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
--- OUTSIDE RECORDS SUMMARY | 2017-07-25 08:21 | XMS REPORT ---
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 Active 645084863 Problem Fatty liver K76.0 Active 211653140 Problem Chronic prescription benzodiazepine use Z79.899 Active 945301483 Problem Morbid obesity due to excess calories E66.01 Active 691677324 Problem DM neuro manif type II E11.49 Active 36282640 Problem Elevated ALT measurement R74.0 Active 992464124 Problem Leukocytosis, unspecified type D72.829 Active 281328723 Problem Periodic limb movement sleep disorder G47.61 Active 468911245 Problem Presence of IVC filter Z95.828 Active 990531773 Problem 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 Active 977924094218915 Problem Type 2 diabetes mellitus with diabetic polyneuropathy E11.42 Active 376686211 Problem Delayed gastric emptying K30 Active 470880052 Problem Essential hypertension I10 Active 64239080 Problem Anxiety F41.9 Active 99525536 Problem Gastroesophageal reflux disease, esophagitis presence not specified K21.9 Active 111777389 Problem Hirsutism L68.0 Active 568240203 Problem Hypothyroidism, unspecified hypothyroidism type E03.9 Active 85597758 Problem Primary insomnia F51.01 Active 390813657 ALLERGIES No Known Allergies SOCIAL HISTORY Never Assessed PLAN OF CARE Activity Details Follow Up 1Y Reason: VITAL SIGNS Height 61 in 2016-11-23 Weight 178.2 lbs 2016-11-23 Temperature 97.9 degrees Fahrenheit 2016-11-23 Heart Rate 80 bpm 2016-11-23 Respiratory Rate 18 2016-11-23 BMI 33.67 kg/m2 2016-11-23 Blood pressure systolic 123 mmHg 2016-11-23 Blood pressure diastolic 77 mmHg 2016-11-23 MEDICATIONS Medication Instructions Dosage Frequency Start Date End Date Duration Status Ranitidine HCl 150 MG Orally Twice a day 1 capsule 12h 30 Active Ibuprofen 200 MG Orally every 6 hrs 1 tablet as needed 6h Active Lidoderm 5 % Externally Once a day 1 patch to intact skin remove after 12 hours 24h Aug, Active Potassium Chloride 10 MEQ Orally Twice a day 1 capsule 12h 30 Active Contrave 8-90 MG Orally Twice a day 2 tablets 12h 06 Jun, 2016 Dec, 30 days Active Metformin HCl 500 MG Orally Twice a day 1 tablet with meals 12h Active Omeprazole 40 mg Orally Once a day 1 capsule 24h Jun, 30 day(s ) Active Lisinopril 5 mg Orally Once a day 1 tablet 24h Active Pravastatin Sodium 40 mg Orally Once a day 1 tablet 24h Active Levothyroxine Sodium 50 MCG Orally Once a day 1 tablet 24h 30 Active Multivitamin Active Duloxetine HCl 60 MG Orally Once a day 1 capsule 24h 30 Active Promethazine HCl 25 MG Orally every 6 hours as needed 1 tablet as needed 15 Active RESULTS Name Result Date Reference Range CULTURE, GENITAL 2016-11-23 Genital Culture, Routine Final report Result 1 TRICHOMONAS (IN HOUSE) 2016-11-23 TRICHOMONAS negative Control + Lot # [id number] Exp date 10/2017 PDF Report 2016-11-23 PDF Report1 LCLS BACTERIAL VAGINOSIS (IN HOUSE) 2016-11-23 RESULTS negative Control + Lot # [id number] Exp date 05/2017 PAP TEST W/ HPV REGARDLESS 2016-11-23 DIAGNOSIS: Specimen adequacy: Clinician provided ICD10: Performed by: QC reviewed by: . . Note: HPV, high-risk Negative Negative Mammogram, Bilateral Screening 2016-11-29 Ultrasound : Pelvic, COMPLETE (REFLEX [id number]) 2016-11-29 PROCEDURES Procedure Date Ordered Result Body Site [facility] Nov 23, 2016 SPECIMEN HANDLING Nov 23, 2016 HANLEY VAG, DNA, DIR PROBE Nov 23, 2016 No Charge Nov 23, 2016 VENIPUNCT, ROUTINE* Nov 23, 2016 IMMUNIZATIONS No Known Immunizations MEDICAL (GENERAL) HISTORY [...]
--- OUTSIDE RECORDS SUMMARY | 2017-07-25 08:22 | XMS REPORT ---
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 Active 193692631 Problem Fatty liver K76.0 Active 652874447 Problem Chronic prescription benzodiazepine use Z79.899 Active 001635230 Problem Morbid obesity due to excess calories E66.01 Active 160786840 Problem DM neuro manif type II E11.49 Active 19126049 Problem Elevated ALT measurement R74.0 Active 211805690 Problem Leukocytosis, unspecified type D72.829 Active 986421951 Problem Periodic limb movement sleep disorder G47.61 Active 580266004 Problem Presence of IVC filter Z95.828 Active 309379770 Problem 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
--- OUTSIDE RECORDS SUMMARY | 2017-07-25 08:23 | XMS REPORT ---
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 Active 233463435 Problem Fatty liver K76.0 Active 926636796 Problem Chronic prescription benzodiazepine use Z79.899 Active 371109524 Problem Morbid obesity due to excess calories E66.01 Active 364475023 Problem DM neuro manif type II E11.49 Active 42993639 Problem Elevated ALT measurement R74.0 Active 713555301 Problem Leukocytosis, unspecified type D72.829 Active 104263410 Problem Periodic limb movement sleep disorder G47.61 Active 949784352 Problem Presence of IVC filter Z95.828 Active 613619743 Problem 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 258811710730550 Problem Type 2 diabetes mellitus with diabetic polyneuropathy E11.42 Active 317129914 Problem Delayed gastric emptying K30 Active 336309270 Problem Essential hypertension I10 Active 55309229 Problem Anxiety F41.9 Active 94709028 Problem Gastroesophageal reflux disease, esophagitis presence not specified K21.9 Active 145164237 Problem Hirsutism L68.0 Active 830095324 Problem Hypothyroidism, unspecified hypothyroidism type E03.9 Active 03025673 Problem Primary insomnia F51.01 Active 015125838 ALLERGIES No Information SOCIAL HISTORY Never Assessed PLAN OF CARE VITAL SIGNS MEDICATIONS Medication Instructions Dosage Frequency Start Date End Date Duration Status Ranitidine HCl 150 MG Orally Twice a day 1 capsule 12h 30 Active Potassium Chloride 10 MEQ Orally Twice a day 1 capsule 12h 30 Active RESULTS No Results PROCEDURES No [...]
--- OUTSIDE RECORDS SUMMARY | 2017-07-25 08:24 | XMS REPORT ---
Author Author ASPEN GEO Organization 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 Active 258694486 Problem Fatty liver K76.0 Active 804083692 Problem Chronic prescription benzodiazepine use Z79.899 Active 490885510 Problem Morbid obesity due to excess calories E66.01 Active 097625460 Problem DM neuro manif type II E11.49 Active 11236865 Problem Elevated ALT measurement R74.0 Active 693247257 Problem Leukocytosis, unspecified type D72.829 Active 357648237 Problem Periodic limb movement sleep disorder G47.61 Active 441553556 Problem Presence of IVC filter Z95.828 Active 325862967 Problem 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
--- OUTSIDE RECORDS SUMMARY | 2017-07-25 08:24 | XMS REPORT ---
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 Active 547362778 Problem Fatty liver K76.0 Active 926805312 Problem Chronic prescription benzodiazepine use Z79.899 Active 903453592 Problem Morbid obesity due to excess calories E66.01 Active 409934650 Problem DM neuro manif type II E11.49 Active 00361727 Problem Elevated ALT measurement R74.0 Active 490928903 Problem Leukocytosis, unspecified type D72.829 Active 117181048 Problem Periodic limb movement sleep disorder G47.61 Active 460589007 Problem Presence of IVC filter Z95.828 Active 829347607 Problem 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 Unknown Non Drug Allergy Sep, Unknown SOCIAL HISTORY No smoking Hx information available PLAN OF CARE Activity Details Follow Up As scheduled Reason: VITAL SIGNS Height 61 in 2016-10-02 Weight 184.1 lbs 2016-10-02 Temperature 98.4 degrees Fahrenheit 2016-10-02 Heart Rate 90 bpm 2016-10-02 Respiratory Rate 18 2016-10-02 BMI 34.78 kg/m2 2016-10-02 Blood pressure systolic 121 mmHg 2016-10-02 Blood pressure diastolic 82 mmHg 2016-10-02 MEDICATIONS Medication Instructions Dosage Frequency Start Date End Date Duration Status Lisinopril 5 mg Orally Once a day 1 tablet 24h Active Pravastatin Sodium 40 mg Orally Once a day 1 tablet 24h Active Duloxetine HCl 60 MG Orally Once a day 1 capsule 24h 30 Active Metformin HCl 500 MG Orally Twice a day 1 tablet with meals 12h Active Contrave 8-90 MG Orally Twice a day 2 tablets 12h 06 Jun, 2016 Dec, 30 days Active Multivitamin Active Omeprazole 40 mg Orally Once a day 1 capsule 24h Jun, 30 day(s ) Active Potassium Chloride 10 MEQ Orally Twice a day 1 capsule 12h 30 Active Levothyroxine Sodium 50 MCG Orally Once a day 1 tablet 24h 30 Active Ibuprofen 200 MG Orally every 6 hrs 1 tablet as needed 6h Active Ranitidine HCl 150 MG Orally Twice a day 1 capsule 12h 30 Active Promethazine HCl 25 MG Orally every 6 hours as needed 1 tablet as needed 15 Active RESULTS Name Result Date Reference Range CBC 2016-10-02 WBC 14.1 3.4-10.8 RBC 4.45 3.77-5.28 Hemoglobin 13.9 11.1-15.9 Hematocrit 41.0 34.0-46.6 MCV 92 79-97 MCH 31.2 26.6-33.0 MCHC 33.9 31.5-35.7 RDW 13.9 12.3-15.4 Platelets 426 150-379 Neutrophils 64 Lymphs 28 Monocytes 6 Eos 2 Basos 0 Neutrophils (Absolute) 8.9 1.4-7.0 Lymphs (Absolute) 3.9 0.7-3.1 Monocytes(Absolute) 0.9 0.1-0.9 Eos (Absolute) 0.3 0.0-0.4 Baso (Absolute) 0.1 0.0-0.2 Immature Granulocytes 0 Immature Grans (Abs) 0.0 0.0-0.1 LIPID PANEL 2016-10-02 Cholesterol, Total 156 100-199 Triglycerides 148 0-149 HDL Cholesterol 34 >39 VLDL Cholesterol Josiah 30 5-40 LDL Cholesterol Calc 92 0-99 Comment: CMP 2016-10-02 Glucose, Serum 84 65-99 BUN 10 6-24 Creatinine, Serum 0.81 0.57-1.00 eGFR If NonAfricn Am 84 >59 eGFR If Africn Am 97 >59 BUN/Creatinine Ratio 12 9-23 Sodium, Serum 140 134-144 Potassium, Serum 5.0 3.5-5.2 Chloride, Serum 101 96-106 Carbon Dioxide, Total 23 18-29 Calcium, Serum 9.6 8.7-10.2 Protein, Total, Serum 6.6 6.0-8.5 Albumin, Serum 4.0 3.5-5.5 Globulin, Total 2.6 1.5-4.5 A/G Ratio 1.5 1.1-2.5 Bilirubin, Total 0.2 0.0-1.2 Alkaline Phosphatase, S 98 39-117 AST (SGOT) 32 0-40 ALT (SGPT) 37 0-32 PROCEDURES Procedure Date Ordered Related Diagnosis Body Site LAB [facility] Oct 02, 2016 [facility] VISIT ESTABLISHED PATIENT Oct 02, 2016 VENIPUNCT, ROUTINE* Oct 02, 2016 Office Visit, Est Pt., Level 3 Oct 02, 2016 IMMUNIZATIONS No Known Immunizations
--- NOTE | 2017-07-25 08:46 | Progress Note-Pre Operative ---
Pre-Operative Progress Note H&P Reviewed The H&P was reviewed, patient examined and no changes noted. Date Seen by Provider: Jul 25, 2017 Time Seen by Provider: 08:35 Date H&P Reviewed: Jul 25, 2017 Time H&P Reviewed: 08:40 Pre-Operative Diagnosis: Symptomatic recurrent ventral abdominal incisional hernia MARIA DOLORES NAVA APRN Jul 25, 2017 8:46 am
[2017-07-25] MEDS ORDERED: CATHETER FLUSH 10 ML SYR IV PRN (09:00)
[2017-07-25] MEDS ORDERED: morphine INJ 10 MG/ML 1ML (SYR OR VIAL) IVP PRN (09:00)
[2017-07-25] MEDS ORDERED: ACETAMINOPHEN 325 MG TABLET/CAPLET (TYLENOL) PO PRN (09:00)
[2017-07-25] MEDS ORDERED: HYDROcodone/APAP 5 MG/325 MG (LORTAB) TAB PO ONE (09:00)
[2017-07-25] MEDS ORDERED: ONDANSETRON 4 MG/2 ML (SDV) Z0FRAN IVP PRN ×2 (09:00→12:45)
[2017-07-25] MEDS ORDERED: ceFAZolin 1 GM/NS 50 ML IVPB IV ONE ×2 (09:00)
[2017-07-25] MEDS ORDERED: BUP/EPI 0.5% 1:200,000 (MARCAINE) 10ML VIAL IJ ONE (09:28)
[2017-07-25] MEDS ORDERED: ONDANSETRON 4 MG/2 ML (SDV) Z0FRAN ONE (09:29)
[2017-07-25] MEDS ORDERED: ROCURONIUM 50 MG/5 ML (ZEMURON) VIAL IV ONE (09:29)
[2017-07-25] MEDS ORDERED: fentaNYL INJECTION 100 MCG/2 ML AMP ONE ×2 (09:29→12:07)
[2017-07-25] MEDS ORDERED: SEVOFLURANE (ULTANE) 15 ML INHAL SOLN ONE ×7 (09:29→12:09)
[2017-07-25] MEDS ORDERED: LIDOCAINE PF 2% 5 ML (XYLOCAINE) VIAL ONE (09:29)
[2017-07-25] MEDS ORDERED: proPOfol 200 MG/20 ML (DIPRIVAN) VIAL IV ONE (09:29)
[2017-07-25] MEDS ORDERED: MIDAZOLAM 2 MG/2 ML (VERSED) VIAL ONE (09:29)
[2017-07-25] MEDS: LACTATED RINGERS 1,000 ML IV PRN ×2 (10:46→12:20)
[2017-07-25] MEDS ORDERED: GLYCOPYRROLATE 0.2 MG/ML (ROBINUL) 2 ML VIAL ONE (12:08)
[2017-07-25] MEDS ORDERED: NEOSTIGMINE (BLOXIVERZ ) 1 MG/1ML 10 ML VIAL ONE (12:08)
--- NOTE | 2017-07-25 12:23 | Progress Note-Post Operative ---
Post-Operative Progess Note Surgeon (s)/Guard Chief (s) Surgeon SUSAN RAMOS MD Guard Chief: gema lugo SHUTTLECOCK ASSEMBLER Pre-Operative Diagnosis Symptomatic recurrent ventral abdominal incisional hernia Post-Operative Diagnosis same(8x7cm) Procedure & Operative Findings Date of Procedure 07/25/17 Procedure Performed/Findings recurrent ventral abdominal incision hernia repair with mesh. Anesthesia Type GET Estimated Blood Loss Estimated blood loss (mL): minimal Specimens/Packing Specimens Removed hernia sac SUSAN RMAOS MD Jul 25, 2017 12:23 pm
[2017-07-25] MEDS ORDERED: HYDR-3816 PO (12:27)
[2017-07-25] MEDS ORDERED: RT-ALBUTEROL SULF 2.5 MG/3 ML PRE-MIX VIAL ONE (12:30)
--- NOTE | 2017-07-25 12:32 | Discharge Inst-Surgical ---
D/C Lap Instructions-RACHEL New, Converted, or Re-Newed RX: RX on Chart Follow Up Appt in 2 weeks Activity as tolerated No driving for 24 hours No driving while on pain medications Incentive Spirometry use every 2 hours while awake Regular Diet Symptoms to Report: Fever over 101 degree F, Nausea/Vomiting Infection Signs and Symptoms to report: Increased redness, Foul odor of wound, Increased drainage Bathing instructions: May shower Operative Area Clean/Dry; Keep incision clean/dry If any problems/questions: Contact your physician or go to Emergency Room SUSAN RAMOS MD Jul 25, 2017 12:32 pm
[2017-07-25] MEDS ORDERED: ALBUTEROL INHALER HFA (VENTOLIN HFA) 8 GM IH ONE (12:38)
[2017-07-25] MEDS ORDERED: MEPERIDINE (DEMEROL) INJ 50 MG/ML IVP PRN (12:45)
[2017-07-25] MEDS ORDERED: RT-ALBUTEROL SULF 2.5 MG/3 ML PRE-MIX VIAL IH SCH (13:00)
[2017-07-25] MEDS: morphine INJ 10 MG/ML 1ML (SYR OR VIAL) IVP PRN ×2 (13:05→13:10)
[2017-07-25 13:49] VITALS: BP 115/81
[2017-07-25 14:10] VITALS: BP 120/80
--- NOTE | 2017-07-25 18:49 | OPERATIVE REPORT ---
DATE OF SERVICE: 07/25/2017 ATTENDING PRIMARY CARE PHYSICIAN: Dr. Ana Farah. PREOPERATIVE DIAGNOSIS: Recurrent symptomatic ventral abdominal incisional hernia. POSTOPERATIVE DIAGNOSIS: Recurrent symptomatic ventral abdominal incisional hernia. Dimensions of the hernia 7 x 8 cm in size with transverse colon and the hernia sac. PROCEDURE: Open repair of recurrent ventral abdominal incisional hernia with mesh. SURGEON: Dr. Ramos. CONSULTING SENIOR PRACTICE DIRECTOR: Chris Isaac APRN. ANESTHESIA: General endotracheal. ESTIMATED BLOOD LOSS: Minimal. FINDINGS: Large recurrent ventral abdominal incisional hernia 8 x 7 cm in size with transverse colon and omentum within the hernia sac. DISPOSITION: The patient tolerated the procedure well. The patient is a 52-year-old female with recurrent ventral abdominal incisional hernia, which is symptomatic. Her first primary umbilical hernia was in 2003 and then she developed recurrence which was repaired. She then moved and had three other recurrent ventral abdominal incisional hernias with the last one done laparoscopic in 2012. She developed another recurrent hernia, which was supraumbilical 3 to 4 cm in size. She has multiple risk factors including obesity, diabetes and has significant smoking history as well as history of DVT and pulmonary embolism. On 03/19/2017, she underwent minilaparotomy explantation of previous mesh and repair of recurrent ventral abdominal incisional hernia with mesh. She was seen in the office on 04/05/2017 and the wound had healed well; however; however, she did develop recurrent ventral abdominal incisional hernia, which was superior to the previous one. Upon examination, the lesion was significantly large approximately 7 cm in size and reducible; however, tender to palpation. Her risk factors were again reiterate the patient and the need for weight loss as well as the sedation of smoking as first and foremost to prevent recurrence. The patient was brought to the operating room, laid supine on the table. After adequate IV pain and sedating medications and general endotracheal intubation, the abdomen was prepped and draped in standard surgical fashion. 0.5% Marcaine with epinephrine was used to anesthetize the overlying skin in the epigastric region. A vertical skin incision was made using a 15 blade. Subcutaneous tissue was opened using electrocautery. The hernia sac was identified and completely dissected out. The hernia sac was large as was the defect. A previous mesh, which was inferior to this hernia was intact. The hernia sac was then opened using Metzenbaum scissors which was completely excised using electrocautery. There is transverse colon within the hernia sac as well as omentum. Adhesions along the abdominal wall were then taken down using electrocautery with visualization of good hemostasis. The fascial edges were then dissected out using electrocautery. The hernias for the fascial defect was then measured, it was 8 x 7 cm in size. We used coated polypropylene mesh which was 15 x 11 cm in size. This was placed in the defect and sutured concentrically in a transfascial manner to the mesh without any tension using 0 Prolene sutures. Good hemostasis was observed. The subcutaneous tissue was then reapproximated using interrupted 3-0 Vicryl sutures. The skin was closed using 4-0 Monocryl running subcuticular suture. Wound was then cleaned and covered with Dermabond. A pressure dressing was then placed on the previous hernia site using tonsil sponges followed by 4 x 4 gauze followed by a large Op-Site. A medium size abdominal binder was then placed over this area. The patient tolerated the procedure well. We will start IV and oral pain medication as well as a clear liquid diet. Once she is tolerating clears, has good pain control with oral pain medications and ambulating well, we will discharge her home. We will recommend that she proceed with no lifting or exertion for the next six weeks and to wear the abdominal binder continuously for at least the next 2 weeks. She also needs to proceed with the necessary lifestyle changes including smoking cessation as well as weight loss. Job ID: [id number] DocumentID: [id number] Dictated Date: 07/25/2017 12:43:43 Auto Claim Representative Date: 07/25/2017 18:48:24 Dictated By: SUSAN RAMOS MD [facility]arm[facility]
== END 2017-07-25 14:41 | disposition home or self-care (01) ==
LOC: SDC 08:15
PROVIDERS: ATTEND Surgery
DX: K43.2 Incisional hernia without obstruction or gangrene (principal); E11.43 Type 2 diabetes mellitus with diabetic autonomic (poly)neuropathy; I10 Essential (primary) hypertension; E78.00 Pure hypercholesterolemia, unspecified; E03.9 Hypothyroidism, unspecified; G61.0 Guillain-Barre syndrome; F32.9 Major depressive disorder, single episode, unspecified; F17.210 Nicotine dependence, cigarettes, uncomplicated; K21.9 Gastro-esophageal reflux disease without esophagitis; Z86.711 Personal history of pulmonary embolism; Z86.718 Personal history of other venous thrombosis and embolism; Z79.899 Other long term (current) drug therapy
CPT/HCPCS: 82962; 88302

== ENCOUNTER → 2017-11-12 | Outpatient (CLI) | payer MEDICARE, MEDICAID ==
[~2017-11-12] MED LIST changes: +ACHD5005 PO; +HYDR-34 PO; -HYDR-3812 PO; -HYDR-3816 PO; +NAPR-1071 PO; -NAPR500T PO
== END ==
LOC: WOUNDCARE 10:18
PROVIDERS: ATTEND Nurse Practitioner
DX: E11.621 Type 2 diabetes mellitus with foot ulcer (principal); L97.512 Non-pressure chronic ulcer of other part of right foot with fat layer exposed
CPT/HCPCS: 11042

== ENCOUNTER → 2017-11-19 | Outpatient (CLI) | payer MEDICARE, MEDICAID | LOC: WOUNDCARE 10:12 | PROVIDERS: ATTEND Nurse Practitioner | DX: E11.621 Type 2 diabetes mellitus with foot ulcer (principal); L97.512 Non-pressure chronic ulcer of other part of right foot with fat layer exposed | CPT/HCPCS: 11042 ==

== ENCOUNTER → 2017-11-26 | Outpatient (CLI) | payer MEDICARE, MEDICAID | LOC: WOUNDCARE 10:20 | PROVIDERS: ATTEND Nurse Practitioner | DX: E11.621 Type 2 diabetes mellitus with foot ulcer (principal); L97.512 Non-pressure chronic ulcer of other part of right foot with fat layer exposed | CPT/HCPCS: 11042 ==

== ENCOUNTER → 2017-12-03 | Outpatient (CLI) | payer MEDICARE, MEDICAID | LOC: WOUNDCARE 10:27 | PROVIDERS: ATTEND Nurse Practitioner | DX: E11.621 Type 2 diabetes mellitus with foot ulcer (principal); L97.512 Non-pressure chronic ulcer of other part of right foot with fat layer exposed | CPT/HCPCS: 99212 ==

== ENCOUNTER 2017-12-05 10:15 | Outpatient (RCR) | payer MEDICARE, MEDICAID ==
[~2017-12-05 10:15] MED LIST changes: -METF500T4 PO; +METF500T5 PO
[2017-12-05 10:41] LABS: BASOPHILS # (AUTO) 0.1 10^3/uL (0.0-0.1); BASOPHILS % (AUTO) 1 % (0-10); EOSINOPHILS # (AUTO) 0.5 10^3/uL (0.0-0.3); EOSINOPHILS % (AUTO) 5 % (0-10); HEMATOCRIT 43 % (35-52); HEMOGLOBIN 14.8 G/DL (11.5-16.0); LYMPHOCYTES # (AUTO) 3.3 X 10^3 (1.0-4.0); LYMPHOCYTES % (AUTO) 30 % (12-44); MEAN CORPUSCULAR HEMOGLOBIN 32 PG (25-34); MEAN CORPUSCULAR HGB CONC 34 G/DL (32-36); MEAN CORPUSCULAR VOLUME 93 FL (80-99); MONOCYTES # (AUTO) 0.9 X 10^3 (0.0-1.0); MONOCYTES % (AUTO) 8 % (0-12); NEUTROPHILS # (AUTO) 6.1 X 10^3 (1.8-7.8); NEUTROPHILS % (AUTO) 56 % (42-75); PLATELET COUNT 348 10^3/uL (130-400); RED BLOOD COUNT 4.64 10^6/uL (4.35-5.85); RED CELL DISTRIBUTION WIDTH 13.1 % (10.0-14.5); WHITE BLOOD COUNT 10.8 10^3/uL (4.3-11.0)
[2017-12-05 11:02] LABS: ALANINE AMINOTRANSFERASE 22 U/L (0-55); ALKALINE PHOSPHATASE 95 U/L (40-136); BILIRUBIN,TOTAL 0.4 MG/DL (0.1-1.0); BUN/CREATININE RATIO 9; CALCIUM 9.4 MG/DL (8.5-10.1); CARBON DIOXIDE 24 MMOL/L (21-32); CHLORIDE 105 MMOL/L (98-107); CREATININE SERUM 0.75 MG/DL (0.60-1.30); GFR ESTIMATED > 60; GLUCOSE 77 MG/DL (70-105); POTASSIUM 4.3 MMOL/L (3.6-5.0); SODIUM 138 MMOL/L (135-145); TOTAL PROTEIN 7.3 GM/DL (6.4-8.2)
[2018-03-19] MEDS ORDERED: HYDR-3812 PO (07:30)
== END 2018-03-05 | disposition home or self-care (01) ==
LOC: ONC 10:15
PROVIDERS: ATTEND Internal Medicine Hematology & Oncology
DX: D72.829 Elevated white blood cell count, unspecified (principal); D47.3 Essential (hemorrhagic) thrombocythemia; E03.9 Hypothyroidism, unspecified; E11.9 Type 2 diabetes mellitus without complications; E78.5 Hyperlipidemia, unspecified; I10 Essential (primary) hypertension; M19.90 Unspecified osteoarthritis, unspecified site; R94.5 Abnormal results of liver function studies; E66.9 Obesity, unspecified; Z68.30 Body mass index [BMI] 30.0-30.9, adult; Z86.718 Personal history of other venous thrombosis and embolism; Z80.3 Family history of malignant neoplasm of breast; Z79.4 Long term (current) use of insulin; Z79.899 Other long term (current) drug therapy
CPT/HCPCS: 80053; 83540; 83550; 85025; 99213

== ENCOUNTER → 2017-12-05 | Outpatient (CLI) | payer MEDICARE, MEDICAID ==
--- NOTE | 2017-12-05 11:19 | Diagnostic Imaging Report ---
INDICATION: Routine screening. COMPARISON: 11/29/2016 and 11/29/2015. TECHNIQUE: Screening digital mammography was performed bilaterally with a Computer Aided Detection (CAD) system. FINDINGS: Both breasts are primarily involutional. No discrete mass or malignant appearing microcalcifications are seen. The axillae are unremarkable. IMPRESSION: No mammographic features suspicious for malignancy are identified. ACR BI-RADS Category 1: Negative. Result letter will be mailed to the patient. Note: At least 10% of breast cancer is not imaged by mammography. Dictated by: Dictated on workstation # [id number]
== END ==
LOC: RAD 09:56
PROVIDERS: ATTEND Family Medicine
DX: Z12.31 Encounter for screening mammogram for malignant neoplasm of breast (principal)
CPT/HCPCS: 77067

== ENCOUNTER → 2018-02-04 | Outpatient (CLI) | payer MEDICARE, MEDICAID ==
[~2018-02-04] MED LIST changes: +BACL10TA PO; +DOXY150T PO; +HYDR-3812 PO
== END ==
LOC: WOUNDCARE 07:58
PROVIDERS: ATTEND Nurse Practitioner
DX: E11.621 Type 2 diabetes mellitus with foot ulcer (principal); L97.512 Non-pressure chronic ulcer of other part of right foot with fat layer exposed
CPT/HCPCS: 11042

== ENCOUNTER → 2018-02-11 | Outpatient (CLI) | payer MEDICARE, MEDICAID | LOC: WOUNDCARE 07:58 | PROVIDERS: ATTEND Nurse Practitioner | DX: E11.621 Type 2 diabetes mellitus with foot ulcer (principal); L97.512 Non-pressure chronic ulcer of other part of right foot with fat layer exposed | CPT/HCPCS: 11042 ==

== ENCOUNTER → 2018-02-18 | Outpatient (CLI) | payer MEDICARE, MEDICAID | LOC: WOUNDCARE 07:57 | PROVIDERS: ATTEND Nurse Practitioner | DX: E11.621 Type 2 diabetes mellitus with foot ulcer (principal); L97.512 Non-pressure chronic ulcer of other part of right foot with fat layer exposed | CPT/HCPCS: 11042 ==

== ENCOUNTER → 2018-02-20 | Outpatient (CLI) | payer MEDICARE, MEDICAID ==
--- NOTE | 2018-02-20 13:46 | Diagnostic Imaging Report ---
PROCEDURE: CT chest without contrast. TECHNIQUE: Multiple contiguous axial images were obtained through the chest without the use of intravenous contrast. INDICATION: Cough. Smoker. COMPARISON: None. FINDINGS: The lungs are clear. No endobronchial lesions. No pneumothorax or pleural effusion. No mediastinal, hilar or axillary lymphadenopathy. Mild atherosclerotic calcifications including coronary and aortic. Normal heart size. No pericardial effusion. Normal caliber thoracic aorta and pulmonary arteries. No acute osseous findings. The visualized upper abdominal contents are unremarkable. IMPRESSION: Negative noncontrast chest CT. Dictated by: Dictated on workstation # [id number]
== END ==
LOC: RAD 13:10
PROVIDERS: ATTEND Family Medicine
DX: R05 Cough (principal); F17.210 Nicotine dependence, cigarettes, uncomplicated
CPT/HCPCS: 71250

== ENCOUNTER → 2018-02-25 | Outpatient (CLI) | payer MEDICARE, MEDICAID | LOC: WOUNDCARE 08:39 | PROVIDERS: ATTEND Nurse Practitioner | DX: E11.621 Type 2 diabetes mellitus with foot ulcer (principal); L97.512 Non-pressure chronic ulcer of other part of right foot with fat layer exposed | CPT/HCPCS: 11042 ==

== ENCOUNTER → 2018-03-04 | Outpatient (CLI) | payer MEDICARE, MEDICAID | LOC: WOUNDCARE 08:20 | PROVIDERS: ATTEND Nurse Practitioner | DX: E11.621 Type 2 diabetes mellitus with foot ulcer (principal); L97.512 Non-pressure chronic ulcer of other part of right foot with fat layer exposed | CPT/HCPCS: 11042; 87070; 87075; 87077; 87186; 87205 ==

== ENCOUNTER → 2018-03-06 | Outpatient (CLI) | payer MEDICARE, MEDICAID | LOC: WOUNDCARE 08:56 | PROVIDERS: ATTEND Nurse Practitioner | DX: E11.621 Type 2 diabetes mellitus with foot ulcer (principal); L97.512 Non-pressure chronic ulcer of other part of right foot with fat layer exposed | CPT/HCPCS: 29445 ==

== ENCOUNTER → 2018-03-11 | Outpatient (CLI) | payer MEDICARE, MEDICAID | LOC: WOUNDCARE 08:26 | PROVIDERS: ATTEND Nurse Practitioner | DX: E11.621 Type 2 diabetes mellitus with foot ulcer (principal); L97.512 Non-pressure chronic ulcer of other part of right foot with fat layer exposed; L03.115 Cellulitis of right lower limb | CPT/HCPCS: 11042 ==

== ENCOUNTER 2018-03-13 09:31 | Outpatient (CLI) | payer MEDICARE, MEDICAID ==
[~2018-03-13] VITALS: Ht 154.9 cm; Wt 76.8 kg
[~2018-03-13 09:31] MED LIST changes: -BACL10TA PO; -DOXY150T PO; -HYDR-3812 PO
[2018-03-13] MEDS ORDERED: BACL10TA PO (09:45)
[2018-03-13] MEDS ORDERED: DOXY150T PO (09:46)
[2018-03-13 09:49] VITALS: BP 124/87
[2018-03-19] MEDS ORDERED: HYDR-3812 PO (07:30)
== END 2018-03-13 10:37 | disposition home or self-care (01) ==
LOC: PREOP 09:31
PROVIDERS: ATTEND Orthopaedic Surgery
DX: Z01.818 Encounter for other preprocedural examination (principal); M65.332 Trigger finger, left middle finger
CPT/HCPCS: 87081

== ENCOUNTER → 2018-03-18 | Outpatient (CLI) | payer MEDICARE, MEDICAID ==
[~2018-03-18] MED LIST changes: +BACL10TA PO; +DOXY150T PO; +HYDR-3812 PO
== END ==
LOC: WOUNDCARE 08:09
PROVIDERS: ATTEND Nurse Practitioner
DX: E11.621 Type 2 diabetes mellitus with foot ulcer (principal); L97.512 Non-pressure chronic ulcer of other part of right foot with fat layer exposed; L03.115 Cellulitis of right lower limb
CPT/HCPCS: 11042

== ENCOUNTER 2018-03-19 07:05 | Day surgery (SDC) | payer MEDICARE, MEDICAID ==
--- NOTE | 2018-03-10 12:02 | HISTORY AND PHYSICAL ---
DATE OF SERVICE: DATE OF ADMISSION: 03/19/2018. This will be for outpatient surgery on 03/19/2018, for left long finger trigger release. HISTORY OF PRESENT ILLNESS: The patient is a 52-year-old right hand dominant female with complaints of catching, popping and tenderness in her left hand long finger. She reports progressive symptoms and interference with activities of daily living. She has failed to respond to conservative measures and due to functional impairment, the patient elected to proceed with surgical intervention. REVIEW OF SYSTEMS: No chest pain or shortness of breath. No dysuria. PAST MEDICAL HISTORY: Hypertension, hyperlipidemia, diabetes, hypothyroidism, abdominal herniorrhaphy, reflux, degenerative disk disease, migraines, depression, anxiety, history of DVT, scoliosis, osteoarthritis, PTSD, and Guillain-[place] syndrome. PAST SURGICAL HISTORY: Abdominal herniorrhaphy, vena cava filter, left carpal tunnel, left elbow, right carpal tunnel, tonsillectomy, right foot, right shoulder rotator cuff repair. FAMILY HISTORY: Significant for coronary artery disease, diabetes, and hypertension. PRIMARY CARE PROVIDER: Ana Farah MD. MEDICATIONS: Promethazine, Advil, levothyroxine, metformin, potassium, lisinopril, ranitidine, Wellbutrin, omeprazole, Flonase, atorvastatin. ALLERGIES: No known drug allergies. SOCIAL HISTORY: The patient smokes half pack cigarettes a day. Denies alcohol use. PHYSICAL EXAMINATION: GENERAL: The patient is well developed, well-nourished, no acute distress. HEENT: Normocephalic, atraumatic. Pupils are equal and reactive. Oropharynx is clear. NECK: Supple, no lymphadenopathy. LUNGS: Clear to auscultation bilaterally. HEART: Regular rate and rhythm. ABDOMEN: Soft, nontender, and nondistended. EXTREMITIES: The left long finger demonstrates tenderness over A1 marguerite. She demonstrates active triggering. She has full MCP, DIP and PIP flexion and extension, pain when moving from flexion to extension. IMPRESSION: Left long finger trigger. PLAN: Left long finger trigger release. Risks, benefits, options, ramifications and recovery have been discussed at length with the patient. She understands and wishes to proceed. Job ID: [id number] DocumentID: [id number] Dictated Date: 03/10/2018 11:33:43 Outside Sales Associate Date: 03/10/2018 12:02:21 Dictated By: YING GENAO MD
[~2018-03-19] VITALS: Ht 154.9 cm; Wt 76.8 kg
[~2018-03-19 07:05] MED LIST changes: -HYDR-3812 PO
[2018-03-19 07:10] VITALS: BP 112/81
[2018-03-19] MEDS ORDERED: LACTATED RINGERS 1,000 ML IV PRN (07:28)
--- NOTE | 2018-03-19 07:28 | Progress Note-Post Operative ---
Post-Operative Progess Note Surgeon (s)/Pin Machine Operator (s) Surgeon YING GENAO MD Pin Machine Operator: none Pre-Operative Diagnosis left long finger trigger Post-Operative Diagnosis left long finger trigger Procedure & Operative Findings Date of Procedure 03/19/18 Procedure Performed/Findings left long finger trigger release Anesthesia Type MAC plus local Estimated Blood Loss Estimated blood loss (mL): minimal Specimens/Packing Specimens Removed none Packing: none YING GENAO MD Mar 19, 2018 07:28
--- NOTE | 2018-03-19 07:28 | Progress Note-Pre Operative ---
Pre-Operative Progress Note H&P Reviewed The H&P was reviewed, patient examined and no changes noted. Date Seen by Provider: Mar 19, 2018 Time Seen by Provider: 07:11 Date H&P Reviewed: Mar 19, 2018 Time H&P Reviewed: 07:11 Pre-Operative Diagnosis: left long finger trigger YING GENAO MD Mar 19, 2018 07:27
[2018-03-19] MEDS ORDERED: ceFAZolin INJECTION 1,000 MG in NS (IVPB) 50 ML IV ONE (07:30)
[2018-03-19] MEDS ORDERED: HYDR-3812 PO (07:30)
[2018-03-19] MEDS ORDERED: LIDOCAINE 1% INJ 20 ML 20 ML VIAL ONE (07:33)
[2018-03-19] MEDS ORDERED: BUPIVACAINE 0.5% 30 ML (SENSORCAINE) VIAL ONE (07:33)
[2018-03-19] MEDS ORDERED: FAMOTIDINE 20MG/2ML IV (PEPCID) ONE (07:44)
[2018-03-19] MEDS ORDERED: FAMOTIDINE 20MG/2ML IV (PEPCID) IVP ONE (07:45)
[2018-03-19] MEDS ORDERED: PROPOFOL INJECTION 50 ML IV ONE (08:18)
[2018-03-19] MEDS ORDERED: MIDAZOLAM 2 MG/2 ML (VERSED) VIAL ONE (08:18)
[2018-03-19 10:20] VITALS: BP 115/75
[2018-03-19 10:50] VITALS: BP 117/76
[2018-03-19 11:30] VITALS: BP 122/73
[2018-03-19 11:42] VITALS: BP 122/73
--- NOTE | 2018-03-19 18:55 | OPERATIVE REPORT ---
DATE OF SERVICE: 03/19/2018 PREOPERATIVE DIAGNOSIS: Left long finger trigger finger. POSTOPERATIVE DIAGNOSIS: Left long finger trigger finger. PROCEDURE: Left long finger trigger finger release. SURGEON: Lambert Genao MD. COLLEGE ADVISOR: None. ANESTHESIA: Monitored anesthesia care plus local by Soumya Duggan CRNA. TOURNIQUET TIME: 4 minutes at 250 mmHg. ESTIMATED BLOOD LOSS: Minimal. DRAINS: None. COMPLICATIONS: None. POSTOPERATIVE PLAN: Early range of motion. The patient was transferred to the recovery room awake and in stable condition. STATEMENT OF MEDICAL NECESSITY: The patient is a 52-year-old right hand dominant female with complaints of left long finger catching, locking. She was tender over A1 marguerite. She can demonstrate active catching due to functional impairment and failure to improve with conservative measures, the patient elected to proceed with surgical intervention. DESCRIPTION OF PROCEDURE: After risks and benefits of the procedure were discussed and questions were answered, an informed consent was signed and placed on chart. The operative site was confirmed in the preoperative holding area initialed by the surgeon. The patient was then transported to the operating room. After adequate levels of monitored anesthesia care were obtained, a timeout was called confirming the operative site. Under sterile conditions, incision site was infiltrated with a combination of plain lidocaine and plain Marcaine. The left upper extremity was then prepped and draped in the usual sterile fashion with the arm elevated, tourniquet was inflated to 250 mmHg. A longitudinal incision was made directly over the A1 marguerite. The underlying soft tissues were carefully dissected. The A1 marguerite was identified and sharply incised by pushing through the scalpel blade, this was confirmed, fully freed under direct visualization. The finger was taken through range of motion with no catching or locking noted. The flexor tendons demonstrated no abnormalities. The tourniquet was deflated. Pressure was used for hemostasis. The wound was copiously irrigated and then closed with 4-0 nylon simple interrupted fashion. A soft dressing was applied. The patient was transported to the recovery room awake and in stable condition. Job ID: [id number] DocumentID: [id number] Dictated Date: 03/19/2018 09:41:20 Technical Aide Date: 03/19/2018 18:55:01 Dictated By: LAMBERT GENAO MD
== END 2018-03-19 11:42 | disposition home or self-care (01) ==
LOC: SDC 07:05
PROVIDERS: ATTEND Orthopaedic Surgery
DX: M65.332 Trigger finger, left middle finger (principal); E11.9 Type 2 diabetes mellitus without complications; I10 Essential (primary) hypertension; Z79.84 Long term (current) use of oral hypoglycemic drugs; Z79.899 Other long term (current) drug therapy; Z86.718 Personal history of other venous thrombosis and embolism
CPT/HCPCS: 82962

== ENCOUNTER → 2018-04-01 | Outpatient (CLI) | payer MEDICARE, MEDICAID ==
[~2018-04-01] MED LIST changes: +HYDR-3812 PO; +IBUP-2185 PO; -IBUP200C75 PO; -SPIR25TA3 PO; +SPIR25TA5 PO; -SPIR50TA2 PO; +SPIR50TA4 PO
== END ==
LOC: WOUNDCARE 09:13
PROVIDERS: ATTEND Nurse Practitioner
DX: E11.621 Type 2 diabetes mellitus with foot ulcer (principal); L97.512 Non-pressure chronic ulcer of other part of right foot with fat layer exposed
CPT/HCPCS: 99213

== ENCOUNTER → 2018-04-28 | Outpatient (CLI) | payer MEDICARE, MEDICAID ==
--- NOTE | 2018-04-28 16:36 | Diagnostic Imaging Report ---
PROCEDURE: MRI right joint lower extremity without contrast. TECHNIQUE: Multiplanar, multisequence MR imaging of the right knee was performed without contrast. COMPARISON: None available. INDICATION: Lateral right-sided knee pain after fall approximately 2 weeks ago. FINDINGS: MENISCI Medial meniscus: Potential nondisplaced vertical longitudinal tear in the posterior horn of the medial meniscus. Lateral meniscus: Normal. LIGAMENTS ACL: Intact. PCL: Intact. MCL: Intact. LCL: The lateral collateral ligamentous complex is intact. EXTENSOR MECHANISM The extensor mechanism is intact. CARTILAGE Medial compartment: Multifocal partial-thickness chondral loss and small intracartilaginous osteophytes in the medial femoral condyle. Lateral compartment: The lateral compartment articular cartilage is preserved without high-grade chondromalacia. Patellofemoral compartment: Partial-thickness chondral fissuring at the patellar apex. Low-grade partial-thickness chondral loss in the central trochlear groove. BONE There is a nondisplaced acute to subacute fracture in the posterior and lateral aspect of the proximal tibial metaphysis near the articulation with the fibular head. The fracture involves only the trabecula and not the cortex. A small amount of surrounding bone marrow edema is present. SOFT TISSUE No knee effusion or Minor's cyst. IMPRESSION: 1. Acute to subacute nondisplaced trabecular fracture in the posterior and lateral aspects of the proximal tibial metaphysis near the proximal tibiofibular articulation. This fracture has no intra-articular extension into the tibial plateau. 2. Potential nondisplaced vertical longitudinal fracture in the posterior horn of the medial meniscus. 3. Multifocal low-grade partial-thickness chondromalacia within the medial and patellofemoral compartments. Dictated by: Dictated on workstation # [id number]
== END ==
LOC: RAD 14:56
PROVIDERS: ATTEND Orthopaedic Surgery
DX: S82.191A Other fracture of upper end of right tibia, initial encounter for closed fracture (principal); S83.241A Other tear of medial meniscus, current injury, right knee, initial encounter; M94.261 Chondromalacia, right knee; W19.XXXA Unspecified fall, initial encounter
CPT/HCPCS: 73721

== ENCOUNTER → 2018-05-02 | Outpatient (CLI) | payer MEDICARE, MEDICAID | LOC: WOUNDCARE 10:00 | PROVIDERS: ATTEND Nurse Practitioner | DX: E11.621 Type 2 diabetes mellitus with foot ulcer (principal); L97.512 Non-pressure chronic ulcer of other part of right foot with fat layer exposed | CPT/HCPCS: 11042 ==

== ENCOUNTER → 2018-05-06 | Outpatient (CLI) | payer MEDICARE, MEDICAID | LOC: WOUNDCARE 10:48 | PROVIDERS: ATTEND Nurse Practitioner | DX: E11.621 Type 2 diabetes mellitus with foot ulcer (principal); L97.512 Non-pressure chronic ulcer of other part of right foot with fat layer exposed | CPT/HCPCS: 11042 ==

== ENCOUNTER → 2018-05-08 | Outpatient (CLI) | payer MEDICARE, MEDICAID | LOC: WOUNDCARE 09:14 | PROVIDERS: ATTEND Nurse Practitioner | DX: E11.621 Type 2 diabetes mellitus with foot ulcer (principal); L97.512 Non-pressure chronic ulcer of other part of right foot with fat layer exposed | CPT/HCPCS: 29445 ==

== ENCOUNTER → 2018-05-15 | Outpatient (CLI) | payer MEDICARE, MEDICAID | LOC: WOUNDCARE 10:50 | PROVIDERS: ATTEND Nurse Practitioner | DX: E11.621 Type 2 diabetes mellitus with foot ulcer (principal); L97.512 Non-pressure chronic ulcer of other part of right foot with fat layer exposed | CPT/HCPCS: 99212 ==

== ENCOUNTER → 2018-05-15 | Outpatient (CLI) | payer MEDICARE, MEDICAID ==
[2018-05-15 10:03] LABS: BASOPHILS # (AUTO) 0.1 10^3/uL (0.0-0.1); BASOPHILS % (AUTO) 1 % (0-10); EOSINOPHILS # (AUTO) 0.5 10^3/uL (0.0-0.3); EOSINOPHILS % (AUTO) 5 % (0-10); HEMATOCRIT 45 % (35-52); HEMOGLOBIN 15.1 G/DL (11.5-16.0); LYMPHOCYTES # (AUTO) 3.7 X 10^3 (1.0-4.0); LYMPHOCYTES % (AUTO) 33 % (12-44); MEAN CORPUSCULAR HEMOGLOBIN 31 PG (25-34); MEAN CORPUSCULAR HGB CONC 34 G/DL (32-36); MEAN CORPUSCULAR VOLUME 94 FL (80-99); MEAN PLATELET VOLUME 10.1 FL (7.4-10.4); MONOCYTES # (AUTO) 0.9 X 10^3 (0.0-1.0); MONOCYTES % (AUTO) 8 % (0-12); NEUTROPHILS # (AUTO) 6.2 X 10^3 (1.8-7.8); NEUTROPHILS % (AUTO) 54 % (42-75); PLATELET COUNT 332 10^3/uL (130-400); RED BLOOD COUNT 4.81 10^6/uL (4.35-5.85); RED CELL DISTRIBUTION WIDTH 13.2 % (10.0-14.5); WHITE BLOOD COUNT 11.4 10^3/uL (4.3-11.0)
== END ==
LOC: ONC 09:44
PROVIDERS: ATTEND Internal Medicine Hematology & Oncology
DX: D72.828 Other elevated white blood cell count (principal); R79.89 Other specified abnormal findings of blood chemistry; R94.5 Abnormal results of liver function studies; E11.9 Type 2 diabetes mellitus without complications; E03.9 Hypothyroidism, unspecified; I10 Essential (primary) hypertension; F17.210 Nicotine dependence, cigarettes, uncomplicated; M19.91 Primary osteoarthritis, unspecified site; E66.9 Obesity, unspecified; Z68.32 Body mass index [BMI] 32.0-32.9, adult; Z86.718 Personal history of other venous thrombosis and embolism; Z79.84 Long term (current) use of oral hypoglycemic drugs; Z79.899 Other long term (current) drug therapy
CPT/HCPCS: 36415; 85025; 99213

== ENCOUNTER → 2018-07-10 | Outpatient (CLI) | payer MEDICARE, MEDICAID ==
[~2018-07-10] MED LIST changes: +METF-397 PO; -METF500T5 PO
== END ==
LOC: WOUNDCARE 08:13
PROVIDERS: ATTEND Nurse Practitioner
DX: E11.621 Type 2 diabetes mellitus with foot ulcer (principal); L97.512 Non-pressure chronic ulcer of other part of right foot with fat layer exposed
CPT/HCPCS: 11042

== ENCOUNTER → 2018-07-10 | Outpatient (CLI) | payer MEDICARE, MEDICAID ==
--- NOTE | 2018-07-10 14:08 | Diagnostic Imaging Report ---
PROCEDURE: MRI right joint upper extremity without contrast. TECHNIQUE: Multiplanar, multisequence non contrast-enhanced MRI of the right upper extremity was accomplished. INDICATION: Right shoulder surgery several months ago with reinjury recently. COMPARISON: 08/19/2015 FINDINGS: There are postsurgical changes in the right shoulder, with an anchor noted at the humeral head. Scattered areas of susceptibility artifact are seen in the overlying soft tissues. No acute fracture is seen. There is widening of the acromioclavicular joint with fluid in the joint space, which is likely postsurgical. No significant joint effusion is seen. There is small to moderate amount of fluid in the subacromial subdeltoid bursa. There is low-grade partial thickness tearing at the bursal surface of the supraspinatus tendon with mild tendinopathy. No other high-grade partial-thickness or full-thickness rotator cuff tears are seen. There is artifact from the nearby hardware. The glenoid labrum is suboptimally evaluated in the absence of contrast, but appears torn superiorly. No large paralabral cyst is seen. The long head of the biceps tendon is not seen proximally at the intra-articular portion and appears frayed in the bicipital groove, concerning for complete tear. The acromion has a curved undersurface without significant hooking. The coracoclavicular and coracoacromial ligaments appear intact. There is mild atrophy of the deltoid muscle and the supraspinatus muscle. The remaining soft tissues about the right shoulder are unremarkable. IMPRESSION: 1. Postsurgical changes in the right shoulder with associated hardware artifact. 2. Low-grade partial-thickness tearing of the supraspinatus tendon. No high-grade partial-thickness or full-thickness rotator cuff tear is seen. 3. Likely full-thickness tear of the proximal long head of the biceps tendon. Tearing of the superior glenoid labrum. 4. Mild muscular atrophy of the deltoid and supraspinatus. Dictated by: Dictated on workstation # [id number]
== END ==
LOC: RAD 09:18
PROVIDERS: ATTEND Orthopaedic Surgery
DX: S46.011A Strain of muscle(s) and tendon(s) of the rotator cuff of right shoulder, initial encounter (principal); S43.491A Other sprain of right shoulder joint, initial encounter; M62.511 Muscle wasting and atrophy, not elsewhere classified, right shoulder; Z98.890 Other specified postprocedural states
CPT/HCPCS: 73221

== ENCOUNTER → 2018-07-15 | Outpatient (CLI) | payer MEDICARE, MEDICAID | LOC: WOUNDCARE 08:24 | PROVIDERS: ATTEND Surgery | DX: E11.621 Type 2 diabetes mellitus with foot ulcer (principal); L97.512 Non-pressure chronic ulcer of other part of right foot with fat layer exposed; E11.42 Type 2 diabetes mellitus with diabetic polyneuropathy | CPT/HCPCS: 99212 ==

== ENCOUNTER 2018-10-02 05:37 | Outpatient (CLI) | payer MEDICARE, MEDICAID ==
[~2018-10-02] VITALS: Ht 154.9 cm; Wt 76.8 kg
[2018-10-02] MEDS ORDERED: BISA5TAB49 PO (11:59)
[2018-10-02] MEDS ORDERED: MULT-35 PO (11:59)
[2018-10-02] MEDS ORDERED: PROM25TA14 PO (11:59)
[2018-10-02] MEDS ORDERED: IBUP-2185 PO (11:59)
== END 2018-10-02 12:21 | disposition home or self-care (01) ==
LOC: PREOP 05:37
PROVIDERS: ATTEND Orthopaedic Surgery
DX: Z01.818 Encounter for other preprocedural examination (principal)

== ENCOUNTER 2018-10-08 05:48 | Day surgery (SDC) | payer MEDICARE, MEDICAID ==
--- NOTE | 2018-09-29 11:54 | HISTORY AND PHYSICAL ---
DATE OF SERVICE: ADMISSION HISTORY AND PHYSICAL DATE OF ADMISSION: 10/08/2018. This will be for outpatient surgery on 10/08/2018, for right small finger trigger release. HISTORY OF PRESENT ILLNESS: The patient is a 53-year-old right hand dominant female with complaints of right small finger catching, locking and swelling. She reports this has been progressive in nature and is activity limiting due to functional impairment and failure to improve with conservative measures, the patient elected to proceed with surgical intervention. REVIEW OF SYSTEMS: No chest pain, no shortness of breath, and no dysuria. 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 PAST SURGICAL HISTORY: Abdominal hernia, Rosenberg filter placement, left carpal tunnel, left elbow, right carpal tunnel, TMA of right foot, right shoulder rotator cuff repair and previous trigger fingers. FAMILY HISTORY: Significant for coronary artery disease and diabetes. PRIMARY CARE PROVIDER: [facility]. MEDICATIONS: Promethazine, levothyroxine, metformin, potassium, lisinopril, ranitidine, omeprazole, atorvastatin, baclofen, Lidoderm, duloxetine. ALLERGIES: No known drug allergies. SOCIAL HISTORY: The patient is a former smoker. Denies alcohol use. PHYSICAL EXAMINATION: GENERAL: The patient is well developed, well-nourished, in no acute distress. HEENT: Normocephalic, atraumatic. Pupils are equal and reactive to light. Oropharynx is clear. NECK: Supple. No lymphadenopathy. LUNGS: Clear to auscultation bilaterally. HEART: Regular rate and rhythm. ABDOMEN: Soft, nontender, and nondistended. EXTREMITIES: Examination of the right ring finger demonstrates tenderness over her A1 marguerite. She can demonstrate active catching. She, however, has full passive MCP, DIP and PIP flexion and extension. IMPRESSION: Right small finger trigger finger. PLAN: Right small finger trigger release. The risks, benefits, options, ramifications and recovery have been discussed at length with the patient and she understands and wishes to proceed. Job ID: [id number] DocumentID: [id number] Dictated Date: 09/29/2018 11:11:15 Oil Processing Technician Date: 09/29/2018 11:53:12 Dictated By: YING GENAO MD
[~2018-10-08] VITALS: Ht 154.9 cm; Wt 76.8 kg
[~2018-10-08 05:48] MED LIST changes: +BISA5TAB49 PO; +MULT-35 PO
--- OUTSIDE RECORDS SUMMARY | 2018-10-08 05:52 | XMS REPORT | Clinical Summary ---
Author Author [facility] Organization [facility] Address Unknown Phone Unavailable Care Team Providers Care [employer] Book[employer] Representative Name Role Phone Aden Fowler MD PCP Tong Schulte MD Unavailable Source Comments Some departments are not documenting in the electronic medical record. If you do not see the information that you expected, contact Release of Information in the Health Information Management department at [phone] for further assistance in locating additional records.[facility] Allergies No Known Allergies Medications End Date Status Medication Sig Dispensed Refills Start Date Active ranitidine(+) (ZANTAC) Take 150 mg 0 150 mg tablet by mouth twice daily. Active metFORMIN (GLUCOPHAGE) Take 500 mg 0 500 mg tablet by mouth twice daily with meals. Active lisinopril (PRINIVIL; Take 5 mg by 0 ZESTRIL) 5 mg tablet mouth daily. Active pravastatin (PRAVACHOL) Take 20 mg by 0 20 mg tablet mouth daily. Active spironolactone Take 25 mg by 0 (ALDACTONE) 25 mg tablet mouth daily. Active potassium chloride SR Take 10 mEq 0 (K-DUR) 10 mEq tablet by mouth daily. Active amitriptyline (ELAVIL) 25 Take 25 mg by 0 mg tablet mouth at bedtime daily. Active levothyroxine (SYNTHROID) Take 50 mcg 0 50 mcg tablet by mouth daily. Active cyclobenzaprine Take 5-10 mg 0 (FLEXERIL) 5 mg tablet by mouth every 8 hours as needed for Muscle Cramps. Active promethazine (PHENERGAN) Take 25 mg by 0 25 mg tablet mouth every 6 hours as needed for Nausea. Active MULTIVITAMIN PO Take 1 Tab by 0 mouth daily. Active ibuprofen (MOTRIN) 200 mg Take 200 mg 0 tablet by mouth every 6 hours as needed for Pain. Active CALCIUM Take 1 Tab by 0 CARB/D3/MAGNESIUM/ZINC mouth daily. (SHWETA MAG ZINC + D3 PO) Active DULOXETINE HCL Take 1 Tab by 0 (DULOXETINE PO) mouth at bedtime daily. Active Problems Problem Noted Date S/P IVC filter 11/03/2015 Social History Date Tobacco Use Types Packs/Day Years Used Light Tobacco Smoker Sex Assigned at Date Recorded Not on file Industry Job Start Date Occupation Not on file Not on file Not on file Travel End Travel History Travel Start No recent travel history available. Last Filed Vital Signs Time Taken Vital Sign Reading 11/02/2015 1:12 PM [employer] Blood Pressure 119/84 11/02/2015 1:12 PM [employer] Pulse 90 11/02/2015 1:11 PM [employer] Temperature 36.8 C (98.2 F) 11/02/2015 1:11 PM [employer] Respiratory Rate 18 - Oxygen Saturation - - Inhaled Oxygen - Concentration 11/02/2015 1:11 PM [employer] Weight 87 kg (191 lb 12.8 oz) 11/02/2015 1:11 PM [employer] Height 152.4 cm (5') 11/02/2015 1:11 PM [employer] Body Mass Index 37.46 Plan of Treatment Health Maintenance Due Date Last Done Comments HEPATITIS C SCREENING 1965 PHYSICAL (COMPREHENSIVE) 1972 EXAM HIV SCREENING 1980 DTAP/TDAP VACCINES (1 - 1983 Tdap) CERVICAL CANCER SCREENING 1995 BREAST CANCER SCREENING 2005 COLORECTAL CANCER 2015 SCREENING [employer]INGLES RECOMBINANT 2015 VACCINE (1 of 2) INFLUENZA VACCINE 04/30/2018 Results Not on filefrom Last 3 Months
--- OUTSIDE RECORDS SUMMARY | 2018-10-08 05:52 | XMS REPORT ---
Author Author ASPEN GEO Organization 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 Active 357739573501850 Problem Morbid obesity due to excess calories E66.01 Active 933347729 Problem Gastroesophageal reflux disease, esophagitis presence not specified K21.9 Active 040571126 Problem Fatty liver K76.0 Active 522324431 Problem Constipation by delayed colonic transit K59.01 Active 62095675 Problem Type 2 diabetes mellitus with foot ulcer E11.621 Active 059631224677616 Problem Personality disorder, unspecified F60.9 Active 65876390 Problem Dysthymic disorder F34.1 Active 17941651 Problem Hirsutism L68.0 Active 050363405 Problem Essential hypertension I10 Active 27208865 Problem Anxiety F41.9 Active 27890713 Problem Non-pressure chronic ulcer of other part of right foot limited to breakdown of skin L97.511 Active 645752186 Problem Non-pressure chronic ulcer of other part of left foot limited to breakdown of skin L97.521 Active 653006191 Problem Tinnitus of both ears H93.13 Active 6833617945144 Problem Sensorineural hearing loss (SNHL) of both ears H90.3 Active 587103956 Problem Type 2 diabetes mellitus with diabetic polyneuropathy E11.42 Active 508363987 Problem 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 Active 992362693 Problem Primary insomnia F51.01 Active 451109611 Problem Mixed hyperlipidemia E78.2 Active 855359274 Problem DM neuro manif type II E11.49 Active 28797046 Problem Periodic limb movement sleep disorder G47.61 Active 799617423 Problem Type II or unspecified type diabetes mellitus with neurological manifestations, not stated as uncontrolled E11.49 Active 87362059 Problem Elevated ALT measurement R74.0 Active 826607663 ALLERGIES No Information ENCOUNTERS Encounter Location Date Diagnosis [place] [address] [address] Aug, [place] [address] [address]57- [address]34 Jul, [place] [address] 65[address]- 6926 Jul, Type 2 diabetes mellitus with diabetic polyneuropathy E11.42 ; Primary insomnia F51.01 ; Acute pain of left knee M25.562 ; Trigger little finger of right hand M65.351 ; Otalgia of both ears H92.03 and Encounter for immunization Z23 [place] [address] 59495- 1794 Jul, Type 2 diabetes mellitus with diabetic polyneuropathy E11.42 [place] [address] [place] [id number] [place] [address] 59031- 3960 24 Jun, 2018 [place] [address] [place] [id number] [place] [address] 43629- 6098 May, Right arm pain M79.601 [place] [address] [place] [id number] [place] [address] 32690- 8830 May, Dysthymic disorder F34.1 and Personality disorder, unspecified F60.9 [place] [address] 72979- 7447 Apr, Right arm pain M79.601 [place] [address] [place] [id number] [place] [address] 82336- 0336 Apr, [place] [address] [place] [id number] [place] [address] 21897- 1659 Apr, Dysthymic disorder F34.[address] [facility] [address] [place] [id number] [place] [address] 10537- 8275 Mar, Acute pain of right knee M25.561 [facility] [address] [address]- 8751 Mar, [facility] [address] 42682- 9325 Mar, Acute pain of right knee M25.561 [facility] [address] 68[address]- 8414 Mar, Type 2 diabetes mellitus with diabetic polyneuropathy E11.42 [facility] [address] [id number] Mar, Dental examination Z01.20 [facility] [address] 05363- 0857 Mar, Dysthymic disorder F34.[address] [facility] [address] 39690- 8105 Feb, [facility] [address] [place] [id number] [place] [address] 02592- 7961 Feb, [facility] [address] [place] [id number] [place] [address] 42328- 0231 Feb, Dental examination Z01.20 [facility] [address] [place] [id number] [place] [address] 31540- 3717 Feb, [facility] [address] 6[address]39 -4823 Feb, Rib pain on left side R07.81 [facility] [address] [place] [id number] [place] [address] 26597- 4476 Feb, [facility] [address] [place] [id number] [place] [address] 01909- 4276 Feb, [facility] [address] [place] [address] [phone]- 6996 January, [facility] [address] [place] [id number] [place] [address] [id number] January, Dental examination Z01.20 [facility] [address] [place] [id number] [place] [address] [id number] January, Dental caries K02.9 [place] [address] [place] [id number] [place] [address] [id number]- 6036 January, Type 2 diabetes mellitus with foot ulcer E11.621 ; Flexion deformity of finger joint of left hand M21.242 ; Chronic cough R05 ; Tinnitus of both ears H93.13 ; Sensorineural hearing loss (SNHL) of both ears H90.3 and Leukocytosis, unspecified type D72.829 [place] [address] [place] [id number] [place] [address] [phone]- [phone] January, [facility] [address] [place] [id number] [place] [address] [id number] Dec, Dental examination Z01.20 [place] [address] [place] [id number] [place] [address] 74935- 5326 Dec, Medicare annual wellness visit, initial Z00.00 ; DM neuro manif type II E11.49 ; Morbid obesity due to excess calories E66.01 ; Essential hypertension I10 ; Anxiety F41.9 ; 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 ; Encounter for immunization Z23 ; Cough R05 and 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 [place] [address] [place] [id number] [place] [address] 77142- 7790 Dec, Cough R05 [place] [address] [place] [id number] [place] [address] [phone]- 4792 Nov, [place] [address] [place] [id number] [place] [address] 64054- 9702 Nov, Screening for breast cancer Z12.31 [place] [address] [place] [id number] [place] [address] 62601- 0466 Oct, [place] [address] [place] [id number] [place] [address] 36670- 6554 Oct, [place] [address] [place] [id number] [place] [address] 86211- 8655 Oct, Type 2 diabetes mellitus with diabetic polyneuropathy E11.42 ; Hypothyroidism, unspecified hypothyroidism type E03.9 ; Delayed gastric emptying K30 ; Gastroesophageal reflux disease, esophagitis presence not specified K21.9 ; Constipation by delayed colonic transit K59.01 ; Fatty liver K76.0 ; Intermittent palpitations R00.2 ; Type 2 diabetes mellitus with foot ulcer E11.621 ; Non-pressure chronic ulcer of other part of right foot limited to breakdown of skin L97.511 and Non-pressure chronic ulcer of other part of left foot limited to breakdown of skin L97.521 [place] [address] [place] [id number] [place] [address] 01957- 0473 Sep, [place] [address] [place] [id number] [place] [address] 21022- 9869 Sep, [place] [address] [place] [id number] [place] [address] 96936- 1414 Aug, 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 [place] [address] [place] [id number] [place] [address] 87877- 2207 Jul, [place] [address] [place] [id number] [place] [address] 48274- 1024 28 May, 2017 Type 2 diabetes mellitus with diabetic polyneuropathy E11.42 [place] [address] [place] [id number] [place] [address] 32709- 7562 18 May, 2017 [place] [address] [place] [id number] [place] [address] 50729- 6396 15 May, 2017 [place] [address] [place] [id number] [place] [address] 70458- 7181 Apr, Type 2 diabetes mellitus with diabetic polyneuropathy E11.42 and Morbid obesity due to excess calories E66.01 [facility] [address] [place] [id number] [place] [address] 81320- 4077 Apr, [facility] [address] [place] [id number] [place] [address] 27947- 0992 Apr, Type 2 diabetes mellitus with diabetic polyneuropathy E11.42 [facility] [address] [place] [id number] [place] [address] 66039 -2260 Apr, [facility] [address] [place] [id number] [place] [address] 12173- 2756 Mar, [facility] [address] [place] [id number] [place] [address] 71200- 3997 Mar, [facility] [address] [place] [id number] [place] [address] 03603- 2399 Mar, [facility] [address] [place] [id number] [place] [address] 44724- 0395 Mar, Type 2 diabetes mellitus with diabetic polyneuropathy E11.42 [facility] [address] [place] [id number] [place] [address] 46356- 5477 Feb, [facility] [address] [place] [id number] [place] [address] 70709- 2861 Feb, [facility] [address] [place] [id number] [place] [address] 24298- 4268 Feb, Type 2 diabetes mellitus with diabetic polyneuropathy E11.42 ; Preoperative examination Z01.818 ; Wound, open, foot, left, initial encounter S91.302A ; Weight loss R63.4 and Tobacco abuse Z72.0 [facility] [address] [address]- 6268 Nov, [facility] [address] [address]- 8834 Nov, Pelvic pain R10.2 [facility] [address] [address]- 3659 Nov, Morbid obesity due to excess calories E66.01 [facility] [address] [place] [id number] [place] [address] 11914- 0207 Nov, [facility] [address] [place] [id number] [place] [address] 35987- 9575 Nov, [facility] [address] [place] [id number] [place] [address] 72824- 7371 Nov, [facility] [address] [place] [id number] [place] [address] 02220- 1870 Nov, [facility] [address] [place] [id number] [place] [address] 84562- 9829 Oct, [facility] [address] [place] [id number] [place] [address] 65045- 5125 Oct, 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 [address] [place] [id number] [place] [address] 50821- 3866 Sep, Essential hypertension I10 ; Mixed hyperlipidemia E78.2 ; Leukocytosis, unspecified type D72.829 and Morbid obesity due to excess calories E66.01 [facility] [address] [place] [id number] [place] [address] 22904- 2278 Sep, [facility] [address] [place] [id number] [place] [address] 25364- 8074 Aug, Hypothyroidism, unspecified hypothyroidism type E03.9 [facility] [address] [place] [id number] [place] [address] 67439- 1556 Aug, Hirsutism L68.0 ; Primary insomnia F51.01 ; BMI 37.0-37.9, adult Z68.37 and Gastroesophageal reflux disease, esophagitis presence not specified K21.9 [facility] [address] [place] [id number] [place] [address] 89145- 1559 Jul, [place] [address] 11733- 8864 Jun, [place] [address] 54070- 3100 Jun, [place] [address] 59171- 4888 Jun, Hypothyroidism, unspecified hypothyroidism type E03.9 [place] [address] [place] [id number] [place] [address] 55809- 8291 Jun, Type 2 diabetes mellitus with diabetic polyneuropathy E11.42 ; Fatty liver K76.0 ; Leukocytosis, unspecified type D72.829 ; Morbid obesity due to excess calories E66.01 ; Hypotension due to drugs I95.2 ; Non- intractable vomiting with nausea, unspecified vomiting type R11.2 and Mixed hyperlipidemia E78.2 [place] [address] [place] [id number] [place] [address] 23951- 0487 Jun, [place] [address] [place] [id number] [place] [address] 79784- 4239 Apr, [place] [address] [place] [id number] [place] [address] 93715- 7300 Apr, [facility] [address] [place] [id number] [place] [address] 23705- 8876 Mar, Eustachian tube dysfunction, bilateral H69.83 [facility] [address] [place] [id number] [place] [address] 14826- 0463 Mar, [place] [address] 96082- 3905 Feb, [place] [address] [place] [id number] [place] [address] 64711- 8513 Feb, Type 2 diabetes mellitus with diabetic polyneuropathy E11.42 ; Periodic limb movement sleep disorder G47.61 ; Hirsutism L68.0 ; Leukocytosis, unspecified type D72.829 and Postural dizziness R42 [place] [id number] [place] [address] 39796- 4880 Dec, Onychomycosis B35.1 and Foot ulcer L97.[address] 01780- 8227 Nov, [address] 95774- 8795 Nov, Preoperative cardiovascular examination Z01.810 ; Type 2 diabetes mellitus with diabetic polyneuropathy E11.42 and Essential hypertension I10 [address] 31053- 3642 Oct, 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 ; Hammertoe M20.40 and DM neuro manif type II E11.[address] 12176- 1513 Oct, Impingement syndrome of right shoulder M75.41 [place] [id number] [place] [address] 02878- 7197 Sep, [place] [id number] [place] [address] 83554- 0459 Sep, [place] [id number] [place] [address] 44527- 1895 Sep, Leukocytosis, unspecified elevated WBC count D72.829 [place] [id number] [place] [address] 96142- 4634 Sep, Leukocytosis, unspecified elevated WBC count D72.829 [place] [address] [place] [id number] [place] [address] 51279- 5958 Sep, [place] [address] [address]- 0412 Sep, [facility] [address] [place] [id number] [place] [address] 34912- 9490 Sep, [facility] [address] [place] [id number] [place] [address] 64302- 1292 Sep, Periodic limb movement sleep disorder G47.61 ; Leukocytosis , unspecified elevated WBC count D72.829 and Mixed hyperlipidemia E78.2 [place] [address] [place] [id number] [place] [address] 43640- 3785 Sep, Periodic limb movement sleep disorder G47.61 [place] [address] [place] [id number] [place] [address] 45975- 5496 Aug, [place] [address] [place] [id number] [place] [address] 72043- 1605 Aug, Type 2 diabetes mellitus with diabetic polyneuropathy E11.42 ; 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 and Major depressive disorder , recurrent episode, mild F33.0 [place] [address] [place] [id number] [place] [address] 55264- 8359 Aug, Impingement syndrome of right shoulder M75.41 [place] [address] [place] [id number] [place] [address] 52186- 3103 Aug, Shortness of breath R06.02 [place] [address] [place] [id number] [place] [address] 95036- 9272 Aug, [place] [address] [place] [id number] [place] [address] 84480- 6774 Aug, 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 and Type II or unspecified type diabetes mellitus with neurological manifestations, not stated as uncontrolled E11.49 [place] [address] [place] [id number] [place] [address] 80322- 5567 Aug, [place] [address] 00058- 6475 Jul, Presence of IVC filter Z95.828 [place] [address] [place] [id number] [place] [address] 49747- 1310 Jul, Rotator cuff tear, right M75.101 [place] [address] [place] [id number] [place] [address] 81530- 3426 Jul, [place] [address] 97387- 2291 Jul, [place] [address] [place] [id number] [place] [address] 92410- 2812 Jul, [place] [address] 21201- 1178 Jun, Leukocytosis, unspecified elevated WBC count D72.829 and Mixed hyperlipidemia E78.2 [place] [address] 17928- 2253 Jun, Type 2 diabetes mellitus with diabetic polyneuropathy E11.42 ; Hypothyroidism, unspecified hypothyroidism type E03.9 ; Elevated ALT measurement R74.0 ; Mixed hyperlipidemia E78.2 ; Primary insomnia F51.01 ; Seizure-like activity R56.9 ; Presence of IVC filter Z95.828 and Elevated liver enzymes R74.8 [place] [address] [place] [id number] [place] [address] 26018- 2093 Jun, [place] [address] [place] [id number] [place] [address] 86765- 8874 Jun, Hammertoe M20.40 and 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 [address] [place] [id number] [place] [address] 85655- 2561 28 May, 2015 Hypertension 401.9 ; Hirsutism 704.[address] [facility] [address] [place] [id number] [place] [address] 24787- 9608 22 May, 2015 Hypertension 401.9 ; Hirsutism 704.[address] [facility] [address] [place] [id number] [place] [address] 89148- 8476 17 May, 2015 Impingement syndrome of right shoulder 726.2 and SLAP lesion of right shoulder 840.7 [place] [address] [place] [id number] [place] [address] 80346- 8796 11 May, 2015 [place] [address] 77669- 7472 Mar, Decreased sex drive 799.81 and Foot pain, bilateral 729.5 [facility] [address] [place] [id number] [place] [address] 09732- 0520 Mar, Impingement syndrome of right shoulder 726.2 [place] [address] [place] [id number] [place] [address] 09101- 4507 Mar, [facility] [address] [place] [id number] [place] [address] [id number] Mar, Dental examination V72.2 [facility] [address] [place] [id number] [place] [address] 79820- 8084 11 Feb, 2015 Subacromial bursitis 726.19 [place] [address] [place] [id number] [place] [address] 96560- 1406 10 [address], [address] [facility] [address] [place] [id number] [place] [address] 10839- 1985 January, [facility] [address] [place] [id number] [place] [address] 61047- 8843 January, Muscle spasms of lower extremity 728.85 ; Diabetes mellitus , type II 250.00 ; Hypertension 401.9 ; Neuropathy 355.9 ; Hyperlipidemia LDL goal < 100 272.4 ; Hypothyroidism 244.9 ; Insomnia 780.52 ; History of Guillain- Courtland syndrome V12.49 ; Acid reflux disease 530.81 ; Presence of IVC filter V45.89 and Anxiety 300.00 IMMUNIZATIONS No Known Immunizations SOCIAL HISTORY Never Assessed REASON FOR VISIT Requests return call PLAN OF CARE VITAL SIGNS MEDICATIONS Unknown Medications RESULTS No Results PROCEDURES No Known procedures INSTRUCTIONS MEDICATIONS ADMINISTERED No Known Medications MEDICAL (GENERAL) HISTORY Type Description Date Medical History degenerative disk disease Medical History scoliosis Medical History arthritis Medical History hypertension Medical History hypothyroidsim Medical History PTSD Medical History Type 2 diabetes Medical History Guillain-Carrion syndrome Medical History Periodontal disease Surgical History 5 hernia surgeries Surgical History tonsillectomy and adenoidectomy Surgical History bladder sling Surgical History 2 surgeries on R foot for tissue buildup & bone spur Surgical History inferior vena cava filter 11/2005 Surgical History carpal tunnel release Surgical History Right shoulder two torn ligament repair 2015 Surgical History Trigger finger repair on right hand 02/06/2017 Surgical History hernia repair 07/2017 Surgical History Left trigger finger 02/2018 Hospitalization History GBS
--- OUTSIDE RECORDS SUMMARY | 2018-10-08 05:53 | XMS REPORT ---
Author Author APSEN GEO Organization [facility] Address [address] [place] [address] Care Team Providers Care Virologist Name Role Phone ASPENLOULOU SHULTZHANY Unavailable PROBLEMS Type Condition ICD9-CM Code YIS03-EO Code Onset Dates Condition Status SNOMED Code Problem Chronic prescription benzodiazepine use Z79.899 Active 634119143 Problem Delayed gastric emptying K30 Active 255425844 Problem Hypothyroidism, unspecified hypothyroidism type E03.9 Active 90652422 Problem Presence of IVC filter Z95.828 Active 808536542 Problem Leukocytosis, unspecified type D72.829 Active 814381954 Problem 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 Active 689020527629173 Problem Morbid obesity due to excess calories E66.01 Active 574404493 Problem Gastroesophageal reflux disease, esophagitis presence not specified K21.9 Active 583118766 Problem Fatty liver K76.0 Active 037811196 Problem Constipation by delayed colonic transit K59.01 Active 96615955 Problem Type 2 diabetes mellitus with foot ulcer E11.621 Active 219652194158002 Problem Personality disorder, unspecified F60.9 Active 11633834 Problem Dysthymic disorder F34.1 Active 62401487 Problem Hirsutism L68.0 Active 126822734 Problem Essential hypertension I10 Active 48537090 Problem Anxiety F41.9 Active 92205460 Problem Non-pressure chronic ulcer of other part of right foot limited to breakdown of skin L97.511 Active 174104040 Problem Non-pressure chronic ulcer of other part of left foot limited to breakdown of skin L97.521 Active 615677775 Problem Tinnitus of both ears H93.13 Active 2028347203302 Problem Sensorineural hearing loss (SNHL) of both ears H90.3 Active 561134463 Problem Type 2 diabetes mellitus with diabetic polyneuropathy E11.42 Active 768208432 Problem 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 Active 323030828 Problem Primary insomnia F51.01 Active 490819871 Problem Mixed hyperlipidemia E78.2 Active 785423283 Problem DM neuro manif type II E11.49 Active 04554572 Problem Periodic limb movement sleep disorder G47.61 Active 083717483 Problem Type II or unspecified type diabetes mellitus with neurological manifestations, not stated as uncontrolled E11.49 Active 24856635 Problem Elevated ALT measurement R74.0 Active 129834046 ALLERGIES No Information ENCOUNTERS Encounter Location Date Diagnosis [place] [address] 18[address]- 9463 Jul, [place] [address] 81837- 5315 Jul, Type 2 diabetes mellitus with diabetic polyneuropathy E11.42 [place] [address] 22680- 0099 24 Jun, 2018 [place] [address] 08365- 3278 May, Right arm pain M79.601 [place] [address] 32489- 9675 May, Dysthymic disorder F34.1 and Personality disorder, unspecified F60.9 [place] [address] 52274- 7863 Apr, Right arm pain M79.601 [place] [address] [place] [address] [place] [address] 58157- 0276 Apr, [place] [address] 88223- 3766 Apr, Dysthymic disorder F34.1 and Anxiety F41.9 [place] [address] 00149- 6438 Mar, Acute pain of right knee M25.561 [place] [address] [place] [address] [place] [address] 35083- 1847 Mar, [place] [address] 15873- 4495 Mar, Acute pain of right knee M25.561 [facility] [address] [place] [address] [place] [address] 14547- 1891 Mar, Type 2 diabetes mellitus with diabetic polyneuropathy E11.42 [facility] [address] [place] [address] [id number] Mar, Dental examination Z01.20 [facility] [address] [place] [address] [place] [address] 78589- 7790 Mar, Dysthymic disorder F34.1 and Anxiety F41.9 [facility] [address] 30057- 3423 Feb, [facility] [address] [place] [address] [place] [address] 84630- 4393 Feb, [facility] [address] [place] [address] [place] [address] 08201- 6036 Feb, Dental examination Z01.20 [facility] [address] [place] [address] [place] [address] 74289- 5412 Feb, [facility] [address] [place] [address] [place] [address] 41815 -8135 Feb, Rib pain on left side R07.81 [facility] [address] [place] [address] [place] [address] 93251- 3777 Feb, [facility] [address] [place] [address] [place] [address] 03399- 1813 Feb, [facility] [address] [place] [address] 44890- 6633 January, [facility] [address] [place] [id number] [place] [address] [id number] January, Dental examination Z01.20 [facility] [address] [id number] January, Dental caries K02.9 [place] [address] [place] [address] [place] [address] 57021- 2387 January, Type 2 diabetes mellitus with foot ulcer E11.621 ; Flexion deformity of finger joint of left hand M21.242 ; Chronic cough R05 ; Tinnitus of both ears H93.13 ; Sensorineural hearing loss (SNHL) of both ears H90.3 and Leukocytosis, unspecified type D72.[address] 97263- 3421 January, [facility] [address] [place] [id number] [place] [address] [id number] Dec, Dental examination Z01.[address] 98183- 5054 Dec, Medicare annual wellness visit, initial Z00.00 ; DM neuro manif type II E11.49 ; Morbid obesity due to excess calories E66.01 ; Essential hypertension I10 ; Anxiety F41.9 ; 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 ; Encounter for immunization Z23 ; Cough R05 and 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 [place] [address] 07715- 8485 Dec, Cough R05 [place] [address] 40078- 2032 15 Nov, 2017 [place] [address] [place] [address] [place] [address] 55322- 8328 05 Nov, 2017 Screening for breast cancer Z12.31 [place] [address] [place] [address] [place] [address] 31031- 3017 Oct, [place] [address] 43827- 6116 Oct, [place] [address] [place] [address] [place] [address] 78903- 1435 07 Oct, 2017 Type 2 diabetes mellitus with diabetic [...] foot limited to breakdown of skin L97.521 [place] [address] 48052- 8165 Sep, [place] [address] 07396- 9455 Sep, [place] [address] 49110- 4722 Aug, 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 [place] [address] 29112- 0061 Jul, [place] [address] 61028- 7923 May, Type 2 diabetes mellitus with diabetic polyneuropathy E11.42 [place] [address] 42159- 8091 18 May, 2017 [place] [address] 23156- 2166 May, [place] [address] 07298- 7649 Apr, Type 2 diabetes mellitus with diabetic polyneuropathy E11.42 and Morbid obesity due to excess calories E66.01 [place] [address] 01045- 0766 Apr, [place] [address] 24098- 0542 Apr, Type 2 diabetes mellitus with diabetic polyneuropathy E11.42 [facility] [address] 33596 -3641 Apr, [facility] [address] [place] [address] 23076- 5595 Mar, [facility] [address] [place] [address] [place] [address] 92745- 4251 Mar, [facility] [address] [place] [address] [place] [address] 26256- 9450 Mar, [facility] [address] [place] [address] [place] [address] 32484- 5877 Mar, Type 2 diabetes mellitus with diabetic polyneuropathy E11.42 [facility] [address] [place] [address] [place] [address] 22745- 0113 Feb, [facility] [address] [place] [address] [place] [address] 86179- 8178 Feb, [facility] [address] [place] [address] [place] [address] 01226- 7815 Feb, Type 2 diabetes mellitus with diabetic polyneuropathy E11.42 ; Preoperative examination Z01.818 ; Wound, open, foot, left, initial encounter S91.302A ; Weight loss R63.4 and Tobacco abuse Z72.0 [facility] [address] [address]- 2973 Nov, [facility] [address] [place] [address] 34079- 3279 Nov, Pelvic pain R10.2 [facility] [address] [place] [address] [place] [address] 99926- 0547 Nov, Morbid obesity due to excess calories E66.01 [facility] [address] [place] [address] [place] [address] 27475- 5258 Nov, [facility] [address] [place] [address] [place] [address] 10299- 4506 Nov, [facility] [address] [place] [address] [place] [address] 04510- 8034 Nov, [facility] [address] [place] [address] [place] [address] 22117- 0987 Nov, [facility] [address] [place] [address] [place] [address] 18726- 5137 Oct, [facility] [address] [place] [address] [place] [address] 39430- 9818 Oct, [place] [address] 74799- 6989 Oct, Well woman exam Z01.419 ; Pelvic pain R10.2 and Type 2 diabetes mellitus with diabetic polyneuropathy E11.42 [place] [address] 15206- 2451 Oct, 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 [place] [address] 79566- 1927 Sep, Essential hypertension I10 ; Mixed hyperlipidemia E78.2 ; Leukocytosis, unspecified type D72.829 and Morbid obesity due to excess calories E66.01 [place] [address] 78186- 1848 Sep, [place] [address] [place] [address] [place] [address] 90752- 3620 Aug, Hypothyroidism, unspecified hypothyroidism type E03.9 [place] [address] [place] [address] [place] [address] 74199- 3487 Aug, Hirsutism L68.0 ; Primary insomnia F51.01 ; BMI 37.0-37.9, adult Z68.37 and Gastroesophageal reflux disease, esophagitis presence not specified K21.9 [place] [address] [place] [address] [place] [address] 82380- 8210 Jul, [place] [address] [place] [address] [place] [address] 26510- 8409 Jun, [place] [address] [place] [address] [place] [address] 44573- 4739 Jun, [place] [address] 97886- 3306 Jun, Hypothyroidism, unspecified hypothyroidism type E03.9 [place] [address] [place] [address] [place] [address] 44338- 0892 Jun, Type 2 diabetes mellitus with diabetic polyneuropathy E11.42 ; Fatty liver K76.0 ; Leukocytosis, unspecified type D72.829 ; Morbid obesity due to excess calories E66.01 ; Hypotension due to drugs I95.2 ; Non- intractable vomiting with nausea, unspecified vomiting type R11.2 and Mixed hyperlipidemia E78.2 [place] [address] [place] [address] [place] [address] 32310- 9134 Jun, [place] [address] [place] [address] [place] [address] 82479- 7450 Apr, [place] [address] 36153- 4596 Apr, [place] [address] 51058- 4476 Mar, Eustachian tube dysfunction, bilateral H69.83 [place] [address] [place] [address] [place] [address] 96859- 7387 Mar, [place] [address] [place] [address] [place] [address] 48462- 9587 Feb, [place] [address] [place] [address] [place] [address] 77169- 4043 Feb, Type 2 diabetes mellitus with diabetic polyneuropathy E11.42 ; Periodic limb movement sleep disorder G47.61 ; Hirsutism L68.0 ; Leukocytosis, unspecified type D72.829 and Postural dizziness R42 [place] [address] [place] [address] [place] [address] 17824- 5099 Dec, Onychomycosis B35.1 and Foot ulcer L97.509 [place] [address] [place] [address] [place] [address] 19057- 5231 Nov, [place] [address] [place] [address] [place] [address] 85738- 3563 Nov, Preoperative cardiovascular examination Z01.810 ; Type 2 diabetes mellitus with diabetic polyneuropathy E11.42 and Essential hypertension I10 [place] [address] 01115- 7960 12 Oct, 2015 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 ; Hammertoe M20.40 and DM neuro manif type II E11.49 [place] [address] 51880- 4960 Oct, Impingement syndrome of right shoulder M75.41 [place] [address] [place] [address] [place] [address] 51197- 2390 Sep, [place] [address] [place] [address] [place] [address] 57069- 5083 Sep, [place] [address] [place] [address] [place] [address] 14874- 9593 Sep, Leukocytosis, unspecified elevated WBC count D72.829 [place] [address] [place] [address] [place] [address] 37707- 0009 Sep, Leukocytosis, unspecified elevated WBC count D72.829 [place] [address] [place] [address] [place] [address] 17065- 5842 Sep, [place] [address] [place] [address] [place] [address] 05589 2549 Sep, [place] [address] [place] [address] [place] [address] 58661- 8362 Sep, [place] [address] [place] [address] [place] [address] 80636- 6296 Sep, Periodic limb movement sleep disorder G47.61 ; Leukocytosis , unspecified elevated WBC count D72.829 and Mixed hyperlipidemia E78.2 [place] [address] [place] [address] [place] [address] 71017- 5073 Sep, Periodic limb movement sleep disorder G47.61 [place] [address] 80139- 9065 Aug, [place] [address] 31505- 3748 Aug, Type 2 diabetes mellitus with diabetic polyneuropathy E11.42 ; 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 and Major depressive disorder , recurrent episode, mild F33.0 [place] [address] 82044- 7931 Aug, Impingement syndrome of right shoulder M75.41 [place] [address] 88808- 5985 Aug, Shortness of breath R06.02 [place] [address] 79344- 8342 Aug, [place] [address] 36937- 3861 Aug, 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 and Type II or unspecified type diabetes mellitus with neurological manifestations, not stated as uncontrolled E11.49 [place] [address] 21888- 5216 Aug, [place] [address] 80627- 1664 Jul, Presence of IVC filter Z95.828 [place] [address] 33555- 8864 Jul, Rotator cuff tear, right M75.101 [place] [address] 60852- 4423 Jul, [place] [address] 67907- 2493 Jul, [place] [address] [place] [address] [place] [address] 09026- 4801 Jul, [place] [address] 38168- 7122 Jun, Leukocytosis, unspecified elevated WBC count D72.829 and Mixed hyperlipidemia E78.2 [place] [address] 86303- 3362 Jun, Type 2 diabetes mellitus with diabetic polyneuropathy E11.42 ; Hypothyroidism, unspecified hypothyroidism type E03.9 ; Elevated ALT measurement R74.0 ; Mixed hyperlipidemia E78.2 ; Primary insomnia F51.01 ; Seizure-like activity R56.9 ; Presence of IVC filter Z95.828 and Elevated liver enzymes R74.8 [place] [address] [place] [address] [place] [address] 10384- 4715 Jun, [place] [address] 29990- 8832 Jun, Hammertoe M20.40 and 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 [place] [address] [place] [address] [place] [address] 71894- 5027 Jun, Elevated liver enzymes R74.8 [place] [address] [place] [address] [place] [address] 20790- 4629 Jun, Elevated liver enzymes R74.8 [place] [address] [place] [address] [place] [address] 40920- 4260 May, Elevated liver enzymes R74.8 [place] [address] [place] [address] [place] [address] 26859- 5267 May, Hypertension 401.9 ; Hirsutism 704.1 and Hypokalemia 276.8 [place] [address] [place] [address] [place] [address] 50133- 3812 May, Hypertension 401.9 ; Hirsutism 704.1 and Hypokalemia 276.8 [place] [address] [place] [address] [place] [address] 53117- 9813 17 May, 2015 Impingement syndrome of right shoulder 726.2 and SLAP lesion of right shoulder 840.7 [place] [address] [place] [address] [place] [address] 95225- 8986 11 May, 2015 [place] [address] 66726- 6009 Mar, Decreased sex drive 799.81 and Foot pain, bilateral 729.5 [place] [address] 34354- 5133 Mar, Impingement syndrome of right shoulder 726.2 [place] [address] [place] [address] [place] [address] 90322- 1706 Mar, [facility] [address] [id number] Mar, Dental examination V72.2 [place] [address] 63987- 0329 11 Feb, 2015 Subacromial bursitis 726.19 [place] [address] 33672- 5179 Feb, [place] [address] [place] [address] [place] [address] 75120- 9885 January, [place] [address] 77064- 1388 January, Muscle spasms of lower extremity 728.85 ; Diabetes mellitus , type II 250.00 ; Hypertension 401.9 ; Neuropathy 355.9 ; Hyperlipidemia LDL goal < 100 272.4 ; Hypothyroidism 244.9 ; Insomnia 780.52 ; History of Guillain- Olton syndrome V12.49 ; Acid reflux disease 530.81 ; Presence of IVC filter V45.89 and Anxiety 300.00 IMMUNIZATIONS No Known Immunizations SOCIAL HISTORY Never Assessed REASON FOR VISIT Glucometer request PLAN OF CARE VITAL SIGNS MEDICATIONS Medication Instructions Dosage Frequency Start Date End Date Duration Status [employer] Rebekah Sensor System - subcutaneously Once a day DX: E11.42 test blood sugar Jul, Active RESULTS No Results PROCEDURES No Known [...]
--- OUTSIDE RECORDS SUMMARY | 2018-10-08 05:53 | XMS REPORT ---
Author Author ASPEN GEO Organization [facility] Address [address] [place] [address] Care Team Providers Care Pipe Roller Name Role Phone ASPENLOULOU SHULTZHANY Unavailable PROBLEMS Type Condition ICD9-CM Code SUC32-EJ Code Onset Dates Condition Status SNOMED Code Problem Chronic prescription benzodiazepine use Z79.899 Active 631245868 Problem Delayed gastric emptying K30 Active 473816067 Problem Hypothyroidism, unspecified hypothyroidism type E03.9 Active 21521025 Problem Presence of IVC filter Z95.828 Active 170023146 Problem Leukocytosis, unspecified type D72.829 Active 784945645 Problem 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 Active 630941292783293 Problem Morbid obesity due to excess calories E66.01 Active 881316054 Problem Gastroesophageal reflux disease, esophagitis presence not specified K21.9 Active 530418690 Problem Fatty liver K76.0 Active 807075818 Problem Constipation by delayed colonic transit K59.01 Active 39010151 Problem Type 2 diabetes mellitus with foot ulcer E11.621 Active 698494348674637 Problem Personality disorder, unspecified F60.9 Active 89607008 Problem Dysthymic disorder F34.1 Active 73845454 Problem Hirsutism L68.0 Active 542418634 Problem Essential hypertension I10 Active 52500421 Problem Anxiety F41.9 Active 97931621 Problem Non-pressure chronic ulcer of other part of right foot limited to breakdown of skin L97.511 Active 211020461 Problem Non-pressure chronic ulcer of other part of left foot limited to breakdown of skin L97.521 Active 202951925 Problem Tinnitus of both ears H93.13 Active 5031960825635 Problem Sensorineural hearing loss (SNHL) of both ears H90.3 Active 271452623 Problem Type 2 diabetes mellitus with diabetic polyneuropathy E11.42 Active 546547767 Problem 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 Active 428801130 Problem Primary insomnia F51.01 Active 487924705 Problem Mixed hyperlipidemia E78.2 Active 488815521 Problem DM neuro manif type II E11.49 Active 41969888 Problem Periodic limb movement sleep disorder G47.61 Active 483304977 Problem Type II or unspecified type diabetes mellitus with neurological manifestations, not stated as uncontrolled E11.49 Active 94731555 Problem Elevated ALT measurement R74.0 Active 030559281 ALLERGIES No Known Allergies ENCOUNTERS Encounter Location Date Diagnosis [place] [address] [address] Jul, [place] [address] 43979- 7104 Jul, Type 2 diabetes mellitus with diabetic polyneuropathy E11.42 ; Primary insomnia F51.01 ; Acute pain of left knee M25.562 ; Trigger little finger of right hand M65.351 ; Otalgia of both ears H92.03 and Encounter for immunization Z23 [place] [address] [address]- 9[address] Jul, Type 2 diabetes mellitus with diabetic polyneuropathy E11.42 [place] [address] 03524- 1070 Jun, [place] [address] 64246- 6718 May, Right arm pain M79.601 [place] [address] 088[address]- 4074 May, Dysthymic disorder F34.1 and Personality disorder, unspecified F60.9 [place] [address] 58629- 0765 Apr, Right arm pain M79.601 [place] [address] 25393- 8851 Apr, [place] [address] 82388- 9409 Apr, Dysthymic disorder F34.1 and Anxiety F41.9 [facility] [address] [place] [address] 61537- 4413 Mar, Acute pain of right knee M25.561 [facility] [address] [place] [id number] [place] [address] 74753- 7708 Mar, [facility] [address] [place] [id number] [place] [address] 09454- 4341 Mar, Acute pain of right knee M25.561 [facility] [address] [place] [id number] [place] [address] 52226- 3386 Mar, Type 2 diabetes mellitus with diabetic polyneuropathy E11.42 [facility] [address] [place] [id number] [place] [address] [phone] Mar, Dental examination Z01.20 [facility] [address] [place] [id number] [place] [address] 37138- 2924 Mar, Dysthymic disorder F34.1 and Anxiety F41.9 [facility] [address] [place] [id number] [place] [address] 40581- 5702 Feb, [facility] [address] [place] [id number] [place] [address] 89423- 0099 Feb, [facility] [address] [place] [id number] [place] [address] 58620- 9662 Feb, Dental examination Z01.20 [facility] [address] [place] [id number] [place] [address] 19362- 8962 Feb, [facility] [address] [place] [address] 39216 -8583 Feb, Rib pain on left side R07.81 [facility] [address] [place] [id number] [place] [address] 76353- 8748 Feb, [facility] [address] [place] [id number] [place] [address] 50284- 5539 Feb, [facility] [address] [place] [id number] [place] [address] 41962- 7606 January, [facility] [address] [id number] January, Dental examination Z01.20 [facility] [address] [place] [id number] [place] [address] [id number] January, Dental caries K02.9 [place] [address] [place] [id number] [place] [address] 75564- 2111 January, Type 2 diabetes mellitus with foot ulcer E11.621 ; Flexion deformity of finger joint of left hand M21.242 ; Chronic cough R05 ; Tinnitus of both ears H93.13 ; Sensorineural hearing loss (SNHL) of both ears H90.3 and Leukocytosis, unspecified type D72.829 [place] [address] [place] [id number] [place] [address] [phone]- 3886 January, [facility] [address] [place] [id number] [place] [address] [phone] Dec, Dental examination Z01.20 [place] [address] [place] [id number] [place] [address] 09187- 4310 Dec, Medicare annual wellness visit, initial Z00.00 ; DM neuro manif type II E11.49 ; Morbid obesity due to excess calories E66.01 ; Essential hypertension I10 ; Anxiety F41.9 ; 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 ; Encounter for immunization Z23 ; Cough R05 and 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 [place] [address] [place] [address] 50274- 1605 Dec, Cough R05 [place] [address] [place] [id number] [place] [address] 81219- 7979 Nov, [place] [address] [place] [id number] [place] [address] 00524- 7408 Nov, Screening for breast cancer Z12.31 [place] [id number] [place] [address] 53717- 8211 Oct, [place] [address] [place] [id number] [place] [address] 93847- 1000 Oct, [place] [address] [place] [id number] [place] [address] 87803- 9512 07 Oct, 2017 Type 2 diabetes mellitus [...] foot limited to breakdown of skin L97.521 [place] [address] [place] [id number] [place] [address] 40161- 6795 Sep, [place] [address] [place] [id number] [place] [address] 64475- 2396 Sep, [place] [address] [place] [id number] [place] [address] 75932- 9150 Aug, 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 [place] [address] [place] [id number] [place] [address] 69086- 6817 Jul, [place] [address] [place] [id number] [place] [address] 96464- 7570 28 May, 2017 Type 2 diabetes mellitus with diabetic polyneuropathy E11.42 [place] [address] [place] [id number] [place] [address] 61064- 5384 18 May, 2017 [place] [address] 62527- 9360 15 May, 2017 [place] [address] [place] [id number] [place] [address] 40915- 0786 Apr, Type 2 diabetes mellitus with diabetic polyneuropathy E11.42 and Morbid obesity due to excess calories E66.01 [place] [address] [address]- 8760 Apr, [facility] [address] [address]- 0336 Apr, Type 2 diabetes mellitus with diabetic polyneuropathy E11.42 [facility] [address] [address] Apr, [facility] [address] [address]- 5660 Mar, [facility] [address] [address] Mar, [facility] [address] [place] [address] 22160- 1853 Mar, [facility] [address] [address]- 5880 Mar, Type 2 diabetes mellitus with diabetic polyneuropathy E11.42 [facility] [address] [address]- 6156 Feb, [facility] [address] [place] [id number] [place] [address] 31081- 2515 Feb, [facility] [address] [address]- 0339 Feb, Type 2 diabetes mellitus with diabetic polyneuropathy E11.42 ; Preoperative examination Z01.818 ; Wound, open, foot, left, initial encounter S91.302A ; Weight loss R63.4 and Tobacco abuse Z72.0 [facility] [address] [address]- 4579 Nov, [facility] [address] [place] [id number] [place] [address] 51169- 7561 Nov, Pelvic pain R10.2 [facility] [address], [place] [address]- 0588 Nov, Morbid obesity due to excess calories E66.01 [facility] [address] [address]- 0831 Nov, [facility] [address] [address]- 9369 Nov, [facility] [address] [address]- 6887 Nov, [facility] [address], [place] [address]- 9166 Nov, [facility] [address], [place] [address]- 9008 Oct, [facility] [address] [place] [id number] [place] [address] 66387- 5741 Oct, [facility] [address] [address]- 1022 Oct, Well woman exam Z01.419 ; Pelvic pain R10.2 and Type 2 diabetes mellitus with diabetic polyneuropathy E11.42 [place] [address] [address]- 5834 Oct, 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 [facility] [address] [address]- 4906 Sep, Essential hypertension I10 ; Mixed hyperlipidemia E78.2 ; Leukocytosis, unspecified type D72.829 and Morbid obesity due to excess calories E66.01 [facility] [address] [address]- 1403 Sep, [facility] [address], [place] [address]- 8958 Aug, Hypothyroidism, unspecified hypothyroidism type E03.9 [place] [address], [place] [address]- 6013 Aug, Hirsutism L68.0 ; Primary insomnia F51.01 ; BMI 37.0-37.9, adult Z68.37 and Gastroesophageal reflux disease, esophagitis presence not specified K21.9 [facility] [address] [place] [id number] [place] [address] 54888- 2377 Jul, [facility] [address] [place] [id number] [place] [address] 83732- 2230 Jun, [facility] [address] 45384- 8416 Jun, [facility] [address] 37645- 2074 Jun, Hypothyroidism, unspecified hypothyroidism type E03.9 [place] [address] 60060- 1224 Jun, Type 2 diabetes mellitus with diabetic polyneuropathy E11.42 ; Fatty liver K76.0 ; Leukocytosis, unspecified type D72.829 ; Morbid obesity due to excess calories E66.01 ; Hypotension due to drugs I95.2 ; Non- intractable vomiting with nausea, unspecified vomiting type R11.2 and Mixed hyperlipidemia E78.2 [place] [address] [place] [id number] [place] [address] 78922- 0705 Jun, [place] [address] [place] [id number] [place] [address] 11035- 0196 Apr, [place] [address] [place] [id number] [place] [address] 78908- 8929 Apr, [facility] [address] [place] [id number] [place] [address] 37091- 8512 Mar, Eustachian tube dysfunction, bilateral H69.83 [facility] [address] [place] [id number] [place] [address] 03283- 5205 Mar, [facility] [address] [place] [id number] [place] [address] 21955- 4702 Feb, [facility] [address] [place] [id number] [place] [address] 52696- 9771 Feb, Type 2 diabetes mellitus with diabetic polyneuropathy E11.42 ; Periodic limb movement sleep disorder G47.61 ; Hirsutism L68.0 ; Leukocytosis, unspecified type D72.829 and Postural dizziness R42 [place] [address] 42609- 1584 Dec, Onychomycosis B35.1 and Foot ulcer L97.[address] 66636- 2562 Nov, [address] 73782- 2260 Nov, Preoperative cardiovascular examination Z01.810 ; Type 2 diabetes mellitus with diabetic polyneuropathy E11.42 and Essential hypertension I10 [address] 21536- 0470 Oct, 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 ; Hammertoe M20.40 and DM neuro manif type II E11.[address] 71406- 3436 Oct, Impingement syndrome of right shoulder M75.[address] 50309- 5739 Sep, [place] [address] 37996- 1682 Sep, [place] [address] [place] [id number] [place] [address] 29946- 8063 Sep, Leukocytosis, unspecified elevated WBC count D72.829 [place] [address] [place] [id number] [place] [address] 79321- 6005 Sep, Leukocytosis, unspecified elevated WBC count D72.829 [place] [address] [place] [id number] [place] [address] 98353- 0400 Sep, [place] [address] 53128- 7754 Sep, [place] [address] [place] [id number] [place] [address] 11045- 1366 Sep, [place] [address] 90064- 5985 Sep, Periodic limb movement sleep disorder G47.61 ; Leukocytosis , unspecified elevated WBC count D72.829 and Mixed hyperlipidemia E78.[address] 24464- 9666 Sep, Periodic limb movement sleep disorder G47.61 [place] [address] 20451- 0507 Aug, [address] 97740- 4387 Aug, Type 2 diabetes mellitus with diabetic polyneuropathy E11.42 ; 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 and Major depressive disorder , recurrent episode, mild F33.[address] 69509- 2886 Aug, Impingement syndrome of right shoulder M75.[address] 12400- 6231 Aug, Shortness of breath R06.[address] 72630- 2455 Aug, [address] 15495- 5297 Aug, 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 and Type II or unspecified type diabetes mellitus with neurological manifestations, not stated as uncontrolled E11.[address] 63987- 9958 Aug, [address] 60489- 0252 Jul, Presence of IVC filter Z95.[address] [place] [address]- 5650 Jul, Rotator cuff tear, right M75.101 [facility] [address] 93472- 5877 Jul, [facility] [address] 38020- 3463 Jul, [facility] [address] 24297- 9013 Jul, [facility] [address] 29280- 9046 Jun, Leukocytosis, unspecified elevated WBC count D72.829 and Mixed hyperlipidemia E78.2 [place] [address] [place] [id number] [place] [address] 47658- 5855 Jun, Type 2 diabetes mellitus with diabetic polyneuropathy E11.42 ; Hypothyroidism, unspecified hypothyroidism type E03.9 ; Elevated ALT measurement R74.0 ; Mixed hyperlipidemia E78.2 ; Primary insomnia F51.01 ; Seizure-like activity R56.9 ; Presence of IVC filter Z95.828 and Elevated liver enzymes R74.8 [place] [address] 82281- 7237 Jun, [facility] [address] [place] [id number] [place] [address] 82370- 6629 Jun, Hammertoe M20.40 and 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 [facility] [address] [place] [id number] [place] [address] 66174- 2777 Jun, Elevated liver enzymes R74.8 [facility] [address] [place] [id number] [place] [address] 15456- 4891 Jun, Elevated liver enzymes R74.8 [facility] [address] [place] [id number] [place] [address] 99459- 4937 May, Elevated liver enzymes R74.8 [facility] [address] 72104- 6353 28 May, 2015 Hypertension 401.9 ; Hirsutism 704.1 and Hypokalemia 276.8 [place] [address] [place] [id number] [place] [address] 43148- 2898 22 May, 2015 Hypertension 401.9 ; Hirsutism 704.1 and Hypokalemia 276.8 [place] [address] [place] [id number] [place] [address] 64723- 3989 17 May, 2015 Impingement syndrome of right shoulder 726.2 and SLAP lesion of right shoulder 840.7 [place] [address] [place] [id number] [place] [address] 38654- 4427 11 May, 2015 [place] [address] [place] [id number] [place] [address] 29399- 3628 Mar, Decreased sex drive 799.81 and Foot pain, bilateral 729.5 [place] [address] [place] [address] [place] [address] 87554- 3290 Mar, Impingement syndrome of right shoulder 726.2 [place] [address] [place] [id number] [place] [address] 63642- 8380 Mar, [facility] [address] [id number] [place] [address] [phone] Mar, Dental examination V72.2 [place] [address] [place] [id number] [place] [address] 45925- 5773 11 Feb, 2015 Subacromial bursitis 726.19 [place] [address] [place] [id number] [place] [address] 20973- 7685 Feb, [place] [address] [place] [id number] [place] [address] 76758- 1653 January, [place] [address] [place] [id number] [place] [address] 58276- 6666 January, Muscle spasms of lower extremity 728.85 ; Diabetes mellitus , type II 250.00 ; Hypertension 401.9 ; Neuropathy 355.9 ; Hyperlipidemia LDL goal < 100 272.4 ; Hypothyroidism 244.9 ; Insomnia 780.52 ; History of Guillain- Novi syndrome V12.49 ; Acid reflux disease 530.81 ; Presence of IVC filter V45.89 and Anxiety 300.00 IMMUNIZATIONS Vaccine Route Administration Date Status PPSV23 (PNEUMOVAX) IM Intramuscular Aug 29, 2018 Administered SOCIAL HISTORY Never Assessed REASON FOR VISIT right trigger finger/left knee-mpolshakMA, Intermittent left knee pain since march, Right pinky trigger finger worsening PLAN OF CARE Activity Details Follow Up 3 Months Reason:DMII VITAL SIGNS Height 61 in 2018-08-29 Weight 175.7 lbs 2018-08-29 Temperature 97.2 degrees Fahrenheit 2018-08-29 Heart Rate 96 bpm 2018-08-29 Respiratory Rate 20 2018-08-29 BMI 33.19 kg/m2 2018-08-29 Blood pressure systolic 110 mmHg 2018-08-29 Blood pressure diastolic 66 mmHg 2018-08-29 MEDICATIONS Medication Instructions Dosage Frequency Start Date End Date Duration Status Test strips Test Strips subcutaneously - test once daily OneTouch Verio test strips as directed Apr, Active Pen Spraggs 32G X 4 MM as directed 24h Apr, Active Melatonin 3 MG Orally Once a day 1 tablet at bedtime as needed with food 24h Jul, 30 day(s) Active Duloxetine HCl 60 MG TAKE ONE CAPSULE BY MOUTH ONCE DAILY (MUST HAVE APPOINTMENT FOR REFILL) 30 Active Lidoderm 5 % APPLY ONE PATCH TOPICALLY TO SKIN ONCE DAILY AND REMOVE AFTER 12 HOURS 60 Active Atorvastatin Calcium 40 mg Orally Once a day 1 tablet 24h 30 Active Glucometer 1 kit subcutaneously Once a day OneTouch Verio meter 24h Apr Active Lisinopril 5 MG TAKE 1 TABLET BY MOUTH ONCE DAILY Active Promethazine HCl 25 MG TAKE ONE TABLET BY MOUTH EVERY 6 HOURS NEEDED 15 Active OneTouch Verio - TEST DAILY 50 Active Ranitidine HCl 150 MG TAKE ONE TABLET BY MOUTH TWICE DAILY (MUST HAVE APPOINTMENT FOR REFILL) 30 Active Omeprazole 40 MG TAKE ONE CAPSULE BY MOUTH ONCE DAILY 90 Active Multivitamin Active Metformin HCl 500 MG TAKE ONE TABLET BY MOUTH TWICE DAILY WITH MEALS (MUST HAVE APPOINTMENT FOR REFILL) Active Baclofen 10 mg Orally Three times a day 1 tablet with food or milk as needed 8h 20 Active Potassium Chloride 10 MEQ Orally Twice a day 1 capsule 12h 30 Active Levothyroxine Sodium 50 MCG TAKE ONE TABLET BY MOUTH ONCE DAILY (MUST HAVE APPOINTMENT FOR REFILL) 30 Active Ibuprofen 200 MG Orally every 6 hrs 1 tablet as needed 6h Active FreeStyle Rebekah Sensor System - subcutaneously Once a day DX: E11.42 test blood sugar Jul, Active RESULTS Name Result Date Reference Range A1C (IN HOUSE) 2018-08-29 A1C IN HOUSE 6.2 4.3 - 5.6 % Previous A1c 5.3 Lot [id number] Exp date 11/2019 PROCEDURES Procedure Date Ordered Result Body Site GLYCATED HEMOGLOBIN TEST Aug 29, 2018 [facility] VISIT ESTABLISHED PATIENT Aug 29, 2018 PPSV23 (PNEUMOVAX) Aug 29, 2018 SINGLE IMMUNIZATION ADMIN Aug 29, 2018 [facility] PNEUMCOC VAC NO FEE SCHED DAY Aug 29, 2018 INSTRUCTIONS MEDICATIONS ADMINISTERED No Known Medications MEDICAL [...]
--- OUTSIDE RECORDS SUMMARY | 2018-10-08 05:53 | XMS REPORT ---
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 Name Role Phone ASPENLOULOU SHULTZHANY Unavailable PROBLEMS Type Condition ICD9-CM Code QUQ78-NS Code Onset Dates Condition Status SNOMED Code Problem Chronic prescription benzodiazepine use Z79.899 Active 423201385 Problem Delayed gastric emptying K30 Active 134690081 Problem Hypothyroidism, unspecified hypothyroidism type E03.9 Active 50118248 Problem Presence of IVC filter Z95.828 Active 283631957 Problem Leukocytosis, unspecified type D72.829 Active 741910913 Problem 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 Active 666230367184459 Problem Morbid obesity due to excess calories E66.01 Active 155074191 Problem Gastroesophageal reflux disease, esophagitis presence not specified K21.9 Active 590141466 Problem Fatty liver K76.0 Active 823655552 Problem Constipation by delayed colonic transit K59.01 Active 81753881 Problem Type 2 diabetes mellitus with foot ulcer E11.621 Active 113603439750911 Problem Personality disorder, unspecified F60.9 Active 18931750 Problem Dysthymic disorder F34.1 Active 59819863 Problem Hirsutism L68.0 Active 374126938 Problem Essential hypertension I10 Active 24882702 Problem Anxiety F41.9 Active 38365305 Problem Non-pressure chronic ulcer of other part of right foot limited to breakdown of skin L97.511 Active 393169408 Problem Non-pressure chronic ulcer of other part of left foot limited to breakdown of skin L97.521 Active 903813228 Problem Tinnitus of both ears H93.13 Active 1835247159007 Problem Sensorineural hearing loss (SNHL) of both ears H90.3 Active 162700833 Problem Type 2 diabetes mellitus with diabetic polyneuropathy E11.42 Active 160555526 Problem 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 Active 999604438 Problem Primary insomnia F51.01 Active 928616304 Problem Mixed hyperlipidemia E78.2 Active 217249891 Problem DM neuro manif type II E11.49 Active 44893301 Problem Periodic limb movement sleep disorder G47.61 Active 837823040 Problem Type II or unspecified type diabetes mellitus with neurological manifestations, not stated as uncontrolled E11.49 Active 84221921 Problem Elevated ALT measurement R74.0 Active 297142642 ALLERGIES No Information ENCOUNTERS Encounter Location Date Diagnosis [place] [address] [address] Jul, [place] [address] 314[address]- [address] Jul, Type 2 diabetes mellitus with diabetic polyneuropathy E11.42 ; Primary insomnia F51.01 ; Acute pain of left knee M25.562 ; Trigger little finger of right hand M65.351 ; Otalgia of both ears H92.03 and Encounter for immunization Z23 [place] [address] [address]- [address] Jul, Type 2 diabetes mellitus with diabetic polyneuropathy E11.42 [place] [address] [address]- [address] Jun, [place] [address] 03828- 0999 May, Right arm pain M79.601 [place] [address] 28222- 6093 May, Dysthymic disorder F34.1 and Personality disorder, unspecified F60.9 [place] [address] 34031- 0996 Apr, Right arm pain M79.601 [place] [address] 37738- 4800 Apr, [place] [address] 14422- 6965 Apr, Dysthymic disorder F34.1 and Anxiety F41.9 [facility] [id number] [place] [address] 44004- 1437 Mar, Acute pain of right knee M25.561 [facility] [address] [place] [id number] [place] [address] 41822- 8850 Mar, [facility] [address] [place] [id number] [place] [address] 22581- 3773 Mar, Acute pain of right knee M25.561 [facility] [address] [place] [id number] [place] [address] 02074- 7941 Mar, Type 2 diabetes mellitus with diabetic polyneuropathy E11.42 [facility] [address] [id number] Mar, Dental examination Z01.20 [facility] [address] [place] [id number] [place] [address] 18155- 2480 Mar, Dysthymic disorder F34.1 and Anxiety F41.9 [facility] [address] [place] [id number] [place] [address] 51429- 0047 Feb, [facility] [address] [place] [id number] [place] [address] 41517- 3806 Feb, [facility] [address] [place] [id number] [place] [address] 09373- 4606 Feb, Dental examination Z01.20 [facility] [address] [place] [id number] [place] [address] 67101- 7484 Feb, [facility] [id number] [place] [address] 80707 -8690 Feb, Rib pain on left side R07.81 [facility] [address] [place] [id number] [place] [address] 16105- 3394 Feb, [facility] [address] [place] [id number] [place] [address] 58842- 2436 Feb, [facility] [address] [place] [id number] [place] [address] 41573- 1526 January, [facility] [address] [id number] January, Dental examination Z01.20 [facility] [address] [place] [address] [id number] January, Dental caries K02.9 [place] [address] [place] [id number] [place] [address] [phone]- 5610 January, Type 2 diabetes mellitus with foot ulcer E11.621 ; Flexion deformity of finger joint of left hand M21.242 ; Chronic cough R05 ; Tinnitus of both ears H93.13 ; Sensorineural hearing loss (SNHL) of both ears H90.3 and Leukocytosis, unspecified type D72.829 [place] [address] [place] [id number] [place] [address] [id number]- 0646 January, [facility] [address] [place] [id number] [place] [address] [id number] Dec, Dental examination Z01.20 [place] [address] [place] [id number] [place] [address] [phone]- 5799 Dec, Medicare annual wellness visit, initial Z00.00 ; DM neuro manif type II E11.49 ; Morbid obesity due to excess calories E66.01 ; Essential hypertension I10 ; Anxiety F41.9 ; 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 ; Encounter for immunization Z23 ; Cough R05 and 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 [place] [address] [place] [address] 19522- 6432 Dec, Cough R05 [place] [address] [place] [id number] [place] [address] 35470- 5697 Nov, [place] [address] [place] [id number] [place] [address] [id number]- 4547 Nov, Screening for breast cancer Z12.31 [place] [id number] [place] [address] 39279- 6739 Oct, [place] [address] [place] [id number] [place] [address] 89247- 2527 Oct, [place] [address] [place] [id number] [place] [address] 63359- 7180 07 Oct, 2017 Type 2 diabetes mellitus [...] foot limited to breakdown of skin L97.521 [place] [address] [place] [id number] [place] [address] 18847- 7615 Sep, [place] [address] [place] [id number] [place] [address] 95229- 0931 Sep, [place] [address] [place] [id number] [place] [address] 28670- 4649 Aug, 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 [place] [address] [place] [id number] [place] [address] 84224- 1549 Jul, [place] [address] [place] [id number] [place] [address] 38780- 1224 28 May, 2017 Type 2 diabetes mellitus with diabetic polyneuropathy E11.42 [place] [address] [place] [id number] [place] [address] 03058- 4371 18 May, 2017 [place] [address] [place] [id number] [place] [address] 64444- 3969 15 May, 2017 [place] [address] [place] [id number] [place] [address] 81728- 1149 Apr, Type 2 diabetes mellitus with diabetic polyneuropathy E11.42 and Morbid obesity due to excess calories E66.01 [place] [address] [address]- 285[address] Apr, [facility] [address] [address]- 9068 Apr, Type 2 diabetes mellitus with diabetic polyneuropathy E11.42 [facility] [address] [address] Apr, [facility] [address] [address]- 1072 Mar, [facility] [address] [place] [address]- 2223 Mar, [facility] [address] [address]- 0492 Mar, [facility] [address] [address]- 2739 Mar, Type 2 diabetes mellitus with diabetic polyneuropathy E11.42 [facility] [address] [address]- 2956 Feb, [facility] [address] [place] [address] 04245- 3419 Feb, [facility] [address] [address]- 2644 Feb, Type 2 diabetes mellitus with diabetic polyneuropathy E11.42 ; Preoperative examination Z01.818 ; Wound, open, foot, left, initial encounter S91.302A ; Weight loss R63.4 and Tobacco abuse Z72.0 [facility] [address] [address]- 8275 Nov, [facility] [address] [address]- 3141 Nov, Pelvic pain R10.2 [facility] [address] [place] [address]- 0643 Nov, Morbid obesity due to excess calories E66.01 [facility] [address] [place] [address]- 8936 Nov, [facility] [address] [place] [address]- 0088 Nov, [facility] [address] [place] [address]- 5366 Nov, [facility] [address] [place] [address]- 3922 Nov, [facility] [address] [place] [address]- 1632 Oct, [facility] [address] [place] [address]- 5920 Oct, [facility] [address] [place] [address]- 8457 Oct, Well woman exam Z01.419 ; Pelvic pain R10.2 and Type 2 diabetes mellitus with diabetic polyneuropathy E11.42 [place] [address], [place] [address]- 7068 Oct, 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 [facility] [address], [place] [address]- 3769 Sep, Essential hypertension I10 ; Mixed hyperlipidemia E78.2 ; Leukocytosis, unspecified type D72.829 and Morbid obesity due to excess calories E66.01 [facility] [address], [place] [address]- 6560 Sep, [facility] [address], [place] [address]- 3725 Aug, Hypothyroidism, unspecified hypothyroidism type E03.9 [place] [address], [place] [address]- 2839 Aug, Hirsutism L68.0 ; Primary insomnia F51.01 ; BMI 37.0-37.9, adult Z68.37 and Gastroesophageal reflux disease, esophagitis presence not specified K21.9 [facility] [address] [place] [id number] [place] [address] 40199- 3728 Jul, [facility] [address] [place] [id number] [place] [address] 22123- 0683 Jun, [facility] [address] [place] [id number] [place] [address] 39298- 7486 Jun, [facility] [address] 96156- 4668 Jun, Hypothyroidism, unspecified hypothyroidism type E03.9 [place] [address] 70540- 7173 Jun, Type 2 diabetes mellitus with diabetic polyneuropathy E11.42 ; Fatty liver K76.0 ; Leukocytosis, unspecified type D72.829 ; Morbid obesity due to excess calories E66.01 ; Hypotension due to drugs I95.2 ; Non- intractable vomiting with nausea, unspecified vomiting type R11.2 and Mixed hyperlipidemia E78.2 [place] [address] [place] [id number] [place] [address] 14781- 2200 Jun, [facility] [address] [place] [id number] [place] [address] 35108- 5842 Apr, [facility] [address] [place] [id number] [place] [address] 17301- 0056 Apr, [facility] [address] [place] [id number] [place] [address] 96179- 8385 Mar, Eustachian tube dysfunction, bilateral H69.83 [facility] [address] [place] [id number] [place] [address] 24256- 1644 Mar, [facility] [address] [place] [id number] [place] [address] 67695- 6816 Feb, [facility] [address] [place] [id number] [place] [address] 94875- 8458 Feb, Type 2 diabetes mellitus with diabetic polyneuropathy E11.42 ; Periodic limb movement sleep disorder G47.61 ; Hirsutism L68.0 ; Leukocytosis, unspecified type D72.829 and Postural dizziness R42 [place] [address] [place] [id number] [place] [address] 27580- 4435 Dec, Onychomycosis B35.1 and Foot ulcer L97.[address] 37785- 0479 Nov, [address] 74417- 3006 Nov, Preoperative cardiovascular examination Z01.810 ; Type 2 diabetes mellitus with diabetic polyneuropathy E11.42 and Essential hypertension I10 [address] 34875- 8053 Oct, 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 ; Hammertoe M20.40 and DM neuro manif type II E11.[address] 35966- 8073 Oct, Impingement syndrome of right shoulder M75.[address] 25666- 7765 Sep, [place] [address] [place] [id number] [place] [address] 77638- 2465 Sep, [place] [address] [place] [id number] [place] [address] 32250- 4389 Sep, Leukocytosis, unspecified elevated WBC count D72.829 [place] [address] [place] [id number] [place] [address] 57959- 9121 Sep, Leukocytosis, unspecified elevated WBC count D72.829 [place] [address] [place] [id number] [place] [address] 48882- 8376 Sep, [place] [address] 66237- 0174 Sep, [place] [address] 90286- 3224 Sep, [place] [address] 12380- 1116 Sep, Periodic limb movement sleep disorder G47.61 ; Leukocytosis , unspecified elevated WBC count D72.829 and Mixed hyperlipidemia E78.[address] 12093- 8621 Sep, Periodic limb movement sleep disorder G47.61 [place] [address] 27407- 7178 Aug, [address] 57042- 7984 Aug, Type 2 diabetes mellitus with diabetic polyneuropathy E11.42 ; 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 and Major depressive disorder , recurrent episode, mild F33.[address] 20030- 1920 Aug, Impingement syndrome of right shoulder M75.[address] 27673- 7120 Aug, Shortness of breath R06.[address] 06060- 8847 Aug, [address] 24166- 1050 Aug, 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 and Type II or unspecified type diabetes mellitus with neurological manifestations, not stated as uncontrolled E11.[address] 78386- 8104 Aug, [address] 48803- 0357 Jul, Presence of IVC filter Z95.[address] [place] [address]- 9204 Jul, Rotator cuff tear, right M75.101 [facility] [address] 33888- 0138 Jul, [facility] [address] 63644- 0367 Jul, [facility] [address] 10485- 1894 Jul, [facility] [address] 48181- 5933 Jun, Leukocytosis, unspecified elevated WBC count D72.829 and Mixed hyperlipidemia E78.2 [place] [address] [place] [id number] [place] [address] 42409- 1607 Jun, Type 2 diabetes mellitus with diabetic polyneuropathy E11.42 ; Hypothyroidism, unspecified hypothyroidism type E03.9 ; Elevated ALT measurement R74.0 ; Mixed hyperlipidemia E78.2 ; Primary insomnia F51.01 ; Seizure-like activity R56.9 ; Presence of IVC filter Z95.828 and Elevated liver enzymes R74.8 [place] [address] 41465- 6611 Jun, [facility] [address] [place] [id number] [place] [address] 02385- 3746 Jun, Hammertoe M20.40 and 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 [facility] [address] [place] [id number] [place] [address] 51322- 4801 Jun, Elevated liver enzymes R74.8 [facility] [address] [place] [id number] [place] [address] 83238- 7557 Jun, Elevated liver enzymes R74.8 [facility] [address] [place] [id number] [place] [address] 04007- 0099 May, Elevated liver enzymes R74.8 [facility] [address] 83570- 8004 28 May, 2015 Hypertension 401.9 ; Hirsutism 704.1 and Hypokalemia 276.8 [place] [address] [place] [id number] [place] [address] 56942- 4531 22 May, 2015 Hypertension 401.9 ; Hirsutism 704.1 and Hypokalemia 276.8 [place] [address] [place] [id number] [place] [address] 98684- 3662 17 May, 2015 Impingement syndrome of right shoulder 726.2 and SLAP lesion of right shoulder 840.7 [place] [address] [place] [id number] [place] [address] 15639- 5027 11 May, 2015 [place] [address] [place] [id number] [place] [address] 58877- 3957 Mar, Decreased sex drive 799.81 and Foot pain, bilateral 729.5 [place] [address] [place] [id number] [place] [address] 28084- 8895 Mar, Impingement syndrome of right shoulder 726.2 [place] [address] [place] [id number] [place] [address] 21969- 0452 Mar, [facility] [address] [place] [id number] [place] [address] [id number] Mar, Dental examination V72.2 [place] [address] [place] [id number] [place] [address] 92520- 2654 11 Feb, 2015 Subacromial bursitis 726.19 [place] [address] [place] [id number] [place] [address] 88440- 2321 Feb, [facility] [address] [place] [id number] [place] [address] 58781- 6127 January, [place] [address] 91758- 7862 January, Muscle spasms of lower extremity 728.85 ; Diabetes mellitus , type II 250.00 ; Hypertension 401.9 ; Neuropathy 355.9 ; Hyperlipidemia LDL goal < 100 272.4 ; Hypothyroidism 244.9 ; Insomnia 780.52 ; History of Guillain- Stanton syndrome V12.49 ; Acid reflux disease 530.81 ; Presence of IVC filter V45.89 and Anxiety 300.00 IMMUNIZATIONS No Known Immunizations SOCIAL HISTORY Never Assessed REASON FOR VISIT Requests Return call PLAN OF CARE VITAL SIGNS MEDICATIONS [...]
--- OUTSIDE RECORDS SUMMARY | 2018-10-08 05:54 | XMS REPORT ---
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 Name Role Phone ASPENLOULOU SHULTZHANY Unavailable PROBLEMS Type Condition ICD9-CM Code SIE22-BI Code Onset Dates Condition Status SNOMED Code Problem Chronic prescription benzodiazepine use Z79.899 Active 382879365 Problem Delayed gastric emptying K30 Active 937559989 Problem Hypothyroidism, unspecified hypothyroidism type E03.9 Active 78358445 Problem Presence of IVC filter Z95.828 Active 191971224 Problem Leukocytosis, unspecified type D72.829 Active 571372675 Problem 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 Active 182473096787420 Problem Morbid obesity due to excess calories E66.01 Active 964552671 Problem Gastroesophageal reflux disease, esophagitis presence not specified K21.9 Active 518024017 Problem Fatty liver K76.0 Active 153114992 Problem Constipation by delayed colonic transit K59.01 Active 76638028 Problem Type 2 diabetes mellitus with foot ulcer E11.621 Active 578561793712986 Problem Personality disorder, unspecified F60.9 Active 18401254 Problem Dysthymic disorder F34.1 Active 49080410 Problem Hirsutism L68.0 Active 003374803 Problem Essential hypertension I10 Active 05750376 Problem Anxiety F41.9 Active 72114254 Problem Non-pressure chronic ulcer of other part of right foot limited to breakdown of skin L97.511 Active 323146162 Problem Non-pressure chronic ulcer of other part of left foot limited to breakdown of skin L97.521 Active 303168072 Problem Tinnitus of both ears H93.13 Active 5881060802413 Problem Sensorineural hearing loss (SNHL) of both ears H90.3 Active 836415536 Problem Type 2 diabetes mellitus with diabetic polyneuropathy E11.42 Active 224009124 Problem 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 Active 755241689 Problem Primary insomnia F51.01 Active 606366314 Problem Mixed hyperlipidemia E78.2 Active 536381775 Problem DM neuro manif type II E11.49 Active 89694391 Problem Periodic limb movement sleep disorder G47.61 Active 859966497 Problem Type II or unspecified type diabetes mellitus with neurological manifestations, not stated as uncontrolled E11.49 Active 05400852 Problem Elevated ALT measurement R74.0 Active 011304847 ALLERGIES No Information ENCOUNTERS Encounter Location Date Diagnosis [facility] [address] [address] 24 Jun, 2018 [facility] [address] [address]- [address] May, Right arm pain M79.601 [place] [address] 42434- 8017 May, Dysthymic disorder F34.1 and Personality disorder, unspecified F60.9 [place] [address] 72799- 5920 Apr, Right arm pain M79.601 [facility] [address] 22[address]- [address] Apr, [place] [address] [address]- 3452 Apr, Dysthymic disorder F34.1 and Anxiety F41.9 [facility] [address] 86[address]- [address]703 Mar, Acute pain of right knee M25.561 [facility] [id number] [place] [address] 42880- 3076 Mar, [facility] [address] 04[address]- 28[address] Mar, Acute pain of right knee M25.561 [facility] [id number] [place] [address] 35270- 7721 Mar, Type 2 diabetes mellitus with diabetic polyneuropathy E11.42 [facility] [address] [id number] Mar, Dental examination Z01.20 [facility] [id number] [place] [address] 148858- 5986 Mar, Dysthymic disorder F34.1 and Anxiety F41.9 [facility] [id number] [place] [address] 81176- 0011 Feb, [facility] [id number] [place] [address] 16129- 3559 Feb, [facility] [id number] [place] [address] 13520- 1772 Feb, Dental examination Z01.20 [facility] [id number] [place] [address] 90383- 7150 Feb, [facility] [id number] [place] [address] 92928 -2074 Feb, Rib pain on left side R07.81 [facility] [id number] [place] [address] 95858- 6153 Feb, [facility] [id number] [place] [address] 97743- 7839 Feb, [facility] [id number] [place] [address] 07803- 2709 January, [facility] [id number] [place] [address] [id number] January, Dental examination Z01.20 [facility] [id number] [id number] January, Dental caries K02.9 [facility] [id number] [place] [address] [id number] [phone] January, Type 2 diabetes mellitus with foot ulcer E11.621 ; Flexion deformity of finger joint of left hand M21.242 ; Chronic cough R05 ; Tinnitus of both ears H93.13 ; Sensorineural hearing loss (SNHL) of both ears H90.3 and Leukocytosis, unspecified type D72.829 [facility] [id number] [place] [address] 35201- 4706 January, [facility] [id number] [place] [address] [id number] Dec, Dental examination Z01.20 [place] [address] 9[address]16- 4586 Dec, Medicare annual wellness visit, initial Z00.00 ; DM neuro manif type II E11.49 ; Morbid obesity due to excess calories E66.01 ; Essential hypertension I10 ; Anxiety F41.9 ; 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 ; Encounter for immunization Z23 ; Cough R05 and 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 [place] [address] 28213- 1649 16 Dec, 2017 Cough R05 [place] [address] 46109- 1456 15 Nov, 2017 [place] [address] 52325- 2972 05 Nov, 2017 Screening for breast cancer Z12.31 [place] [id number] [place] [address] 56685- 9851 12 Oct, 2017 [place] [address] 54923- 0218 Oct, [place] [address] 61227- 5798 07 Oct, 2017 Type 2 diabetes mellitus [...] foot limited to breakdown of skin L97.521 [facility] [id number] [place] [address] 25409- 2063 Sep, [facility] [id number] [place] [address] 65677- 5720 Sep, [facility] [id number] [place] [address] 42705- 0470 Aug, 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 [facility] [id number] [place] [address] 85194- 4767 Jul, [facility] [id number] [place] [address] 70039- 9311 May, Type 2 diabetes mellitus with diabetic polyneuropathy E11.42 [facility] [id number] [place] [address] 33346- 2947 May, [facility] [id number] [place] [address] 55900- 2270 May, [facility] [id number] [place] [address] 81751- 6046 Apr, Type 2 diabetes mellitus with diabetic polyneuropathy E11.42 and Morbid obesity due to excess calories E66.01 [facility] [address] [address] Apr, [facility] [id number] [place] [address] 60218- 7341 Apr, Type 2 diabetes mellitus with diabetic polyneuropathy E11.42 [facility] [id number] [place] [address] 16540 -3363 Apr, [facility] [id number] [place] [address] 93510- 4183 Mar, [facility] [id number] [place] [address] 63964- 5384 Mar, [facility] [id number] [place] [address] 63063- 1654 Mar, [facility] [id number] [place] [address] 29839- 4195 Mar, Type 2 diabetes mellitus with diabetic polyneuropathy E11.42 [facility] [id number] [place] [address] 56034- 9437 Feb, [facility] [id number] [place] [address] 75926- 1699 Feb, [facility] [id number] [place] [address] 95594- 1239 Feb, Type 2 diabetes mellitus with diabetic polyneuropathy E11.42 ; Preoperative examination Z01.818 ; Wound, open, foot, left, initial encounter S91.302A ; Weight loss R63.4 and Tobacco abuse Z72.0 [facility] [id number] [place] [address] 42935- 7605 Nov, [facility] [id number] [place] [address] 22559- 6942 Nov, Pelvic pain R10.2 [facility] [id number] [place] [address] 81032- 6159 Nov, Morbid obesity due to excess calories E66.01 [facility] [address] [id number] [address]- 3083 Nov, [facility] [id number] [place] [address] 47154- 3378 Nov, [facility] [id number] [place] [address] 82798- 6402 Nov, [facility] [id number] [place] [address] 050010- 4362 Nov, [facility] [id number] [place] [address] 66937- 3402 Oct, [place] [id number] [place] [address] 24454- 5542 Oct, [place] [id number] [place] [address] 01698- 4276 Oct, Well woman exam Z01.419 ; Pelvic pain R10.2 and Type 2 diabetes mellitus with diabetic polyneuropathy E11.42 [place] [id number] [place] [address] 50474- 5968 Oct, 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 [place] [address] [address] [id number] [place] [address] 12780- 5221 Sep, Essential hypertension I10 ; Mixed hyperlipidemia E78.2 ; Leukocytosis, unspecified type D72.829 and Morbid obesity due to excess calories E66.01 [place] [id number] [place] [address] 45409- 3495 Sep, [place] [address] [id number] [place] [address] 57568- 7044 Aug, Hypothyroidism, unspecified hypothyroidism type E03.9 [place] [id number] [place] [address] 73587- 9009 Aug, Hirsutism L68.0 ; Primary insomnia F51.01 ; BMI 37.0-37.9, adult Z68.37 and Gastroesophageal reflux disease, esophagitis presence not specified K21.9 [place] [id number] [place] [address] 54913- 7709 Jul, [place] [id number] [place] [address] 04471- 0837 Jun, [place] [id number] [place] [address] 44842- 2216 Jun, [place] [id number] [place] [address] 40448- 5235 Jun, Hypothyroidism, unspecified hypothyroidism type E03.9 [place] [id number] [place] [address] 87780- 2682 Jun, Type 2 diabetes mellitus with diabetic polyneuropathy E11.42 ; Fatty liver K76.0 ; Leukocytosis, unspecified type D72.829 ; Morbid obesity due to excess calories E66.01 ; Hypotension due to drugs I95.2 ; Non- intractable vomiting with nausea, unspecified vomiting type R11.2 and Mixed hyperlipidemia E78.2 [place] [address] 49559- 3273 Jun, [place] [address] 89693- 0118 Apr, [place] [address] 40421- 1659 Apr, [address] 65403- 9776 Mar, Eustachian tube dysfunction, bilateral H69.83 [place] [address] [place] [id number] [place] [address] 28542- 7155 Mar, [place] [address] 38334- 5589 Feb, [place] [address] [id number] [place] [address] 49614- 8738 Feb, Type 2 diabetes mellitus with diabetic polyneuropathy E11.42 ; Periodic limb movement sleep disorder G47.61 ; Hirsutism L68.0 ; Leukocytosis, unspecified type D72.829 and Postural dizziness R42 [place] [address] [place] [address] [id number] [place] [address] 56288- 2929 Dec, Onychomycosis B35.1 and Foot ulcer L97.509 [place] [address] [place] [address] [id number] [place] [address] 16154- 6287 Nov, [place] [address] [id number] [place] [address] 83078- 3481 Nov, Preoperative cardiovascular examination Z01.810 ; Type 2 diabetes mellitus with diabetic polyneuropathy E11.42 and Essential hypertension I10 [place] [address] [id number] [place] [address] 22530- 0412 12 Oct, 2015 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 ; Hammertoe M20.40 and DM neuro manif type II E11.49 [place] [address] [place] [id number] [place] [address] 76885- 2294 11 Oct, 2015 Impingement syndrome of right shoulder M75.41 [place] [address] 61603- 0448 Sep, [place] [address] 06832- 3297 Sep, [place] [address] [place] [id number] [place] [address] 09549- 4166 Sep, Leukocytosis, unspecified elevated WBC count D72.829 [place] [address] 42269- 8640 Sep, Leukocytosis, unspecified elevated WBC count D72.829 [place] [address] 74266- 5189 Sep, [place] [address] [place] [id number] [place] [address] 33287- 2191 Sep, [place] [address] [place] [address] [id number] [place] [address] 71696- 7299 Sep, [place] [address] [place] [id number] [place] [address] 70978- 5255 Sep, Periodic limb movement sleep disorder G47.61 ; Leukocytosis , unspecified elevated WBC count D72.829 and Mixed hyperlipidemia E78.2 [place] [address] [id number] [place] [address] 42674- 3497 Sep, Periodic limb movement sleep disorder G47.61 [place] [address] [id number] [place] [address] 30626- 7261 Aug, [place] [address] [id number] [place] [address] 81228- 9340 Aug, Type 2 diabetes mellitus with diabetic polyneuropathy E11.42 ; 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 and Major depressive disorder , recurrent episode, mild F33.0 [place] [address] 77981- 5635 Aug, Impingement syndrome of right shoulder M75.41 [place] [address] 91512- 1897 Aug, Shortness of breath R06.02 [place] [address] 64445- 1080 Aug, [place] [address] 39702- 5526 Aug, 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 and Type II or unspecified type diabetes mellitus with neurological manifestations, not stated as uncontrolled E11.49 [place] [address] 99251- 7251 Aug, [place] [address] 25245- 1369 Jul, Presence of IVC filter Z95.828 [place] [address] 42872- 0111 Jul, Rotator cuff tear, right M75.101 [place] [address] 61087- 0065 Jul, [place] [address] 71428- 8629 Jul, [place] [address] 87850- 2239 Jul, [place] [address] 07825- 9801 Jun, Leukocytosis, unspecified elevated WBC count D72.829 and Mixed hyperlipidemia E78.2 [place] [id number] [place] [address] 91195- 5807 Jun, Type 2 diabetes mellitus with diabetic polyneuropathy E11.42 ; Hypothyroidism, unspecified hypothyroidism type E03.9 ; Elevated ALT measurement R74.0 ; Mixed hyperlipidemia E78.2 ; Primary insomnia F51.01 ; Seizure-like activity R56.9 ; Presence of IVC filter Z95.828 and Elevated liver enzymes R74.8 [place] [address] 24000- 6173 Jun, [place] [address] 78889- 0716 Jun, Hammertoe M20.40 and 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 [place] [address] 70488- 2360 Jun, Elevated liver enzymes R74.8 [place] [address] 15806- 7248 Jun, Elevated liver enzymes R74.8 [place] [address] 86909- 6979 May, Elevated liver enzymes R74.8 [place] [address] 99353- 7535 May, Hypertension 401.9 ; Hirsutism 704.1 and Hypokalemia 276.8 [place] [address] [id number] [place] [address] 81642- 5726 May, Hypertension 401.9 ; Hirsutism 704.1 and Hypokalemia 276.8 [place] [address] 06771- 8510 17 May, 2015 Impingement syndrome of right shoulder 726.2 and SLAP lesion of right shoulder 840.7 [place] [address] 54578- 4488 May, [facility] [address] [address]- 7982 Mar, Decreased sex drive 799.81 and Foot pain, bilateral 729.5 [facility] [address] [place] [address] 13187- 7580 Mar, Impingement syndrome of right shoulder 726.2 [place] [id number] [place] [address] 59514- 0351 Mar, [facility] [id number] [place] [address] [id number] Mar, Dental examination V72.2 [place] [id number] [place] [address] 17265- 7215 Feb, Subacromial bursitis 726.19 [place] [id number] [place] [address] 91286- 2665 Feb, [place] [id number] [place] [address] 11300- 7725 January, [place] [id number] [place] [address] 41547- 5619 January, Muscle spasms of lower extremity 728.85 ; Diabetes mellitus , type II 250.00 ; Hypertension 401.9 ; Neuropathy 355.9 ; Hyperlipidemia LDL goal < 100 272.4 ; Hypothyroidism 244.9 ; Insomnia 780.52 ; History of Guillain- Harpersfield syndrome V12.49 ; Acid reflux disease 530.81 [...]
--- OUTSIDE RECORDS SUMMARY | 2018-10-08 05:54 | XMS REPORT ---
Author Author BRIELLE CANTRELL Organization [facility] Address [address] [place] [address] Care Team Providers Care Car Examiner Name Role Phone BRIELLE CANTRELL Unavailable PROBLEMS Type Condition ICD9-CM Code BXR32-LN Code Onset Dates Condition Status SNOMED Code Problem Chronic prescription benzodiazepine use Z79.899 Active 906269636 Problem Delayed gastric emptying K30 Active 060536033 Problem Hypothyroidism, unspecified hypothyroidism type E03.9 Active 51168611 Problem Presence of IVC filter Z95.828 Active 573535579 Problem Leukocytosis, unspecified type D72.829 Active 480936567 Problem 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 Active 913392627125245 Problem Morbid obesity due to excess calories E66.01 Active 385686749 Problem Gastroesophageal reflux disease, esophagitis presence not specified K21.9 Active 186739737 Problem Fatty liver K76.0 Active 284658995 Problem Constipation by delayed colonic transit K59.01 Active 64326469 Problem Type 2 diabetes mellitus with foot ulcer E11.621 Active 573072162117027 Problem Personality disorder, unspecified F60.9 Active 06112359 Problem Dysthymic disorder F34.1 Active 46591327 Problem Hirsutism L68.0 Active 746774432 Problem Essential hypertension I10 Active 85454877 Problem Anxiety F41.9 Active 60613004 Problem Non-pressure chronic ulcer of other part of right foot limited to breakdown of skin L97.511 Active 088355888 Problem Non-pressure chronic ulcer of other part of left foot limited to breakdown of skin L97.521 Active 688286921 Problem Tinnitus of both ears H93.13 Active 4850078614979 Problem Sensorineural hearing loss (SNHL) of both ears H90.3 Active 798165745 Problem Type 2 diabetes mellitus with diabetic polyneuropathy E11.42 Active 390471376 Problem 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 Active 109429107 Problem Primary insomnia F51.01 Active 190094621 Problem Mixed hyperlipidemia E78.2 Active 621374793 Problem DM neuro manif type II E11.49 Active 76875248 Problem Periodic limb movement sleep disorder G47.61 Active 160776153 Problem Type II or unspecified type diabetes mellitus with neurological manifestations, not stated as uncontrolled E11.49 Active 87646921 Problem Elevated ALT measurement R74.0 Active 928978812 ALLERGIES No Information ENCOUNTERS Encounter Location Date Diagnosis [facility] [address] [address] Jun, [place] [address] [address] May, Right arm pain M79.601 [place] [address] [address]- [address] May, Dysthymic disorder F34.1 and Personality disorder, unspecified F60.9 [place] [address] 9[address]- 9[address] Apr, Right arm pain M79.601 [place] [address] [address]- [address] Apr, [place] [address] [address]- [address] Apr, Dysthymic disorder F34.1 and Anxiety F41.9 [place] [address] [address]- [address] Mar, Acute pain of right knee M25.561 [place] [address] [place] [id number] [place] [address] 69617- 8528 Mar, [facility] [address] [address]- [address] Mar, Acute pain of right knee M25.561 [facility] [address] [place] [id number] [place] [address] 86276- 2952 09 Mar, 2018 Type 2 diabetes mellitus with diabetic polyneuropathy E11.42 [facility] [address] [id number] Mar, Dental examination Z01.20 [facility] [address] [id number] [place] [id number] Mar, Dysthymic disorder F34.1 and Anxiety F41.9 [facility] [address] [id number] [place] [address] 25837- 6594 Feb, [facility] [address] [address] [id number] [place] [address] 80638- 5918 Feb, [facility] [address] [id number] [place] [address] 86711- 2956 Feb, Dental examination Z01.20 [facility] [address] [id number] [place] [address] 94341- 1131 Feb, [facility] [address] [id number] [place] [address] 57601 -4727 Feb, Rib pain on left side R07.81 [facility] [address] [id number] [place] [address] 91280- 0569 Feb, [facility] [address] [id number] [place] [address] 41608- 8640 Feb, [facility] [id number] [place] [address] 78669- 2561 January, [facility] [address] [place] [address] [id number] January, Dental examination Z01.20 [facility] [address] [place] [id number] [id number] January, Dental caries K02.9 [facility] [address] [id number] [place] [address] [id number]- 4706 January, Type 2 diabetes mellitus with foot ulcer E11.621 ; Flexion deformity of finger joint of left hand M21.242 ; Chronic cough R05 ; Tinnitus of both ears H93.13 ; Sensorineural hearing loss (SNHL) of both ears H90.3 and Leukocytosis, unspecified type D72.829 [facility] [address] [id number] [place] [address] 31811- 0122 January, [facility] [address] [place] [address] [phone] Dec, Dental examination Z01.20 [place] [address] 8[address]- [address] Dec, Medicare annual wellness visit, initial Z00.00 ; DM neuro manif type II E11.49 ; Morbid obesity due to excess calories E66.01 ; Essential hypertension I10 ; Anxiety F41.9 ; 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 ; Encounter for immunization Z23 ; Cough R05 and 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 [place] [address] [id number] [place] [address] 16043- 2750 16 Dec, 2017 Cough R05 [place] [address] [address]- [address] 15 Nov, 2017 [place] [address] [address]- [address] 05 Nov, 2017 Screening for breast cancer Z12.31 [place] [address] [place] [id number] [place] [address] 60111- 7508 12 Oct, 2017 [place] [address] [place] [id number] [place] [address] 58975- 7489 Oct, [place] [address] [place] [id number] [place] [address] 93554- 1510 07 Oct, 2017 Type 2 diabetes mellitus [...] foot limited to breakdown of skin L97.521 [facility] [address] [place] [address] 90150- 4082 Sep, [facility] [address] [place] [id number] [place] [address] 92582- 7696 Sep, [facility] [address] [place] [id number] [place] [address] 89111- 2318 Aug, 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 [facility] [address] [place] [id number] [place] [address] 60753- 7815 Jul, [facility] [address] [place] [id number] [place] [address] 91808- 4557 May, Type 2 diabetes mellitus with diabetic polyneuropathy E11.42 [facility] [address] [place] [id number] [place] [address] 99918- 1616 May, [facility] [address] [place] [id number] [place] [address] 33437- 3798 May, [facility] [address] [place] [id number] [place] [address] 71535- 2686 Apr, Type 2 diabetes mellitus with diabetic polyneuropathy E11.42 and Morbid obesity due to excess calories E66.01 [facility] [address], [place] [address] Apr, [facility] [address] [place] [id number] [place] [address] 93260- 1716 Apr, Type 2 diabetes mellitus with diabetic polyneuropathy E11.42 [facility] [address], [place] [address] Apr, [facility] [address] [place] [address] Mar, [facility] [address] [place] [id number] [place] [address] 40876- 7710 Mar, [facility] [address], [place] [address] Mar, [facility] [address] [id number] [place] [address] 91442- 3913 Mar, Type 2 diabetes mellitus with diabetic polyneuropathy E11.42 [facility] [address] [place] [id number] [place] [address] 49130- 3589 Feb, [facility] [address] [place] [id number] [place] [address] 82037- 2573 Feb, [facility] [address] [place] [id number] [place] [address] 35477- 5243 Feb, Type 2 diabetes mellitus with diabetic polyneuropathy E11.42 ; Preoperative examination Z01.818 ; Wound, open, foot, left, initial encounter S91.302A ; Weight loss R63.4 and Tobacco abuse Z72.0 [facility] [address] [place] [id number] [place] [address] 74505- 1915 Nov, [facility] [address] [place] [id number] [place] [address] 22006- 1562 Nov, Pelvic pain R10.2 [facility] [address] [place] [id number] [place] [address] 86297- 0269 Nov, Morbid obesity due to excess calories E66.01 [facility] [address], [place] [address]- 6[address] Nov, [facility] [address] [place] [address]- 9877 Nov, [facility] [address] [place] [id number] [place] [address] 81862- 2491 Nov, [facility] [address] [place] [id number] [place] [address] 832930- 0671 Nov, [facility] [address] [place] [address] 84053- 7640 Oct, [place] [address] [place] [id number] [place] [address] 09532- 9903 Oct, [place] [address] 08645- 5764 Oct, Well woman exam Z01.419 ; Pelvic pain R10.2 and Type 2 diabetes mellitus with diabetic polyneuropathy E11.42 [place] [address] 7[address]- 0040 Oct, 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 [place] [address] [place] [id number] [place] [address] 27671- 9951 Sep, Essential hypertension I10 ; Mixed hyperlipidemia E78.2 ; Leukocytosis, unspecified type D72.829 and Morbid obesity due to excess calories E66.01 [place] [address] [place] [id number] [place] [address] 26548- 2790 Sep, [place] [address] [place] [id number] [place] [address] 93105- 6086 Aug, Hypothyroidism, unspecified hypothyroidism type E03.9 [place] [address] [place] [id number] [place] [address] 97873- 0191 Aug, Hirsutism L68.0 ; Primary insomnia F51.01 ; BMI 37.0-37.9, adult Z68.37 and Gastroesophageal reflux disease, esophagitis presence not specified K21.9 [place] [address] [place] [id number] [place] [address] 67864- 9607 Jul, [place] [address] [place] [id number] [place] [address] 82044- 9680 Jun, [place] [address] [place] [id number] [place] [address] 99249- 2364 Jun, [place] [address] [place] [id number] [place] [address] 26540- 8978 Jun, Hypothyroidism, unspecified hypothyroidism type E03.9 [place] [address] [place] [id number] [place] [address] 24347- 1818 Jun, Type 2 diabetes mellitus with diabetic polyneuropathy E11.42 ; Fatty liver K76.0 ; Leukocytosis, unspecified type D72.829 ; Morbid obesity due to excess calories E66.01 ; Hypotension due to drugs I95.2 ; Non- intractable vomiting with nausea, unspecified vomiting type R11.2 and Mixed hyperlipidemia E78.2 [place] [address] [place] [id number] [place] [address] 05867- 6931 Jun, [place] [address] [place] [id number] [place] [address] 34610- 6094 Apr, [place] [address] 95491- 3187 Apr, [place] [address] 29963- 6492 Mar, Eustachian tube dysfunction, bilateral H69.83 [place] [address] [place] [id number] [place] [address] 28346- 8041 Mar, [place] [address] 42748- 7162 Feb, [place] [address] [place] [id number] [place] [address] 19612- 7130 Feb, Type 2 diabetes mellitus with diabetic polyneuropathy E11.42 ; Periodic limb movement sleep disorder G47.61 ; Hirsutism L68.0 ; Leukocytosis, unspecified type D72.829 and Postural dizziness R42 [place] [address] [place] [id number] [place] [address] 46167- 7122 Dec, Onychomycosis B35.1 and Foot ulcer L97.509 [place] [address] [place] [id number] [place] [address] 80836- 8203 Nov, [place] [address] [place] [id number] [place] [address] 29552- 6174 Nov, Preoperative cardiovascular examination Z01.810 ; Type 2 diabetes mellitus with diabetic polyneuropathy E11.42 and Essential hypertension I10 [place] [address] [place] [id number] [place] [address] 24255- 5141 12 Oct, 2015 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 ; Hammertoe M20.40 and DM neuro manif type II E11.49 [place] [address] [place] [id number] [place] [address] 69080- 2026 11 Oct, 2015 Impingement syndrome of right shoulder M75.41 [place] [address] [place] [id number] [place] [address] 83190- 2276 Sep, [place] [address] 00100- 9806 Sep, [place] [address] [place] [id number] [place] [address] 20720- 3076 Sep, Leukocytosis, unspecified elevated WBC count D72.829 [place] [address] [place] [id number] [place] [address] 07269- 4779 Sep, Leukocytosis, unspecified elevated WBC count D72.829 [place] [address] [place] [id number] [place] [address] 16649- 0673 Sep, [place] [address] [place] [id number] [place] [address] 63740- 2021 Sep, [place] [address] [place] [id number] [place] [address] 91412- 0961 Sep, [place] [address] [place] [id number] [place] [address] 51440- 2542 Sep, Periodic limb movement sleep disorder G47.61 ; Leukocytosis , unspecified elevated WBC count D72.829 and Mixed hyperlipidemia E78.2 [place] [address] [place] [id number] [place] [address] 25100- 2719 Sep, Periodic limb movement sleep disorder G47.61 [place] [address] [place] [id number] [place] [address] 71140- 6271 Aug, [place] [address] [place] [id number] [place] [address] 89946- 1203 Aug, Type 2 diabetes mellitus with diabetic polyneuropathy E11.42 ; 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 and Major depressive disorder , recurrent episode, mild F33.0 [place] [address] [place] [id number] [place] [address] 59202- 9301 Aug, Impingement syndrome of right shoulder M75.41 [place] [address] 21968- 3718 Aug, Shortness of breath R06.02 [place] [address] 79537- 9133 Aug, [place] [address] 30348- 7563 Aug, 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 and Type II or unspecified type diabetes mellitus with neurological manifestations, not stated as uncontrolled E11.49 [place] [address] 28775- 4572 Aug, [place] [address] 85752- 2040 Jul, Presence of IVC filter Z95.828 [place] [address] 00495- 2152 Jul, Rotator cuff tear, right M75.101 [place] [address] 41466- 8754 Jul, [place] [address] [place] [id number] [place] [address] 01571- 9875 Jul, [place] [address] 89875- 8473 Jul, [place] [address] [place] [id number] [place] [address] 53192- 4197 Jun, Leukocytosis, unspecified elevated WBC count D72.829 and Mixed hyperlipidemia E78.2 [place] [address] [place] [id number] [place] [address] 29288- 7600 Jun, Type 2 diabetes mellitus with diabetic polyneuropathy E11.42 ; Hypothyroidism, unspecified hypothyroidism type E03.9 ; Elevated ALT measurement R74.0 ; Mixed hyperlipidemia E78.2 ; Primary insomnia F51.01 ; Seizure-like activity R56.9 ; Presence of IVC filter Z95.828 and Elevated liver enzymes R74.8 [place] [address] [place] [id number] [place] [address] 74146- 9673 Jun, [place] [address] 68024- 8417 Jun, Hammertoe M20.40 and 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 [place] [address] 61438- 4923 Jun, Elevated liver enzymes R74.8 [place] [address] [place] [id number] [place] [address] 47624- 8733 Jun, Elevated liver enzymes R74.8 [place] [address] 52483- 0634 May, Elevated liver enzymes R74.8 [place] [address] [place] [id number] [place] [address] 12641- 5759 May, Hypertension 401.9 ; Hirsutism 704.1 and Hypokalemia 276.8 [place] [address] [place] [id number] [place] [address] 47996- 1514 May, Hypertension 401.9 ; Hirsutism 704.1 and Hypokalemia 276.8 [place] [address] [place] [id number] [place] [address] 75705- 3759 17 May, 2015 Impingement syndrome of right shoulder 726.2 and SLAP lesion of right shoulder 840.7 [place] [id number] [place] [address] 94309- 7718 May, [facility] [address] [place] [address] 56554- 6695 Mar, Decreased sex drive 799.81 and Foot pain, bilateral 729.5 [facility] [address] [place] [id number] [place] [address] 19975- 2096 Mar, Impingement syndrome of right shoulder 726.2 [facility] [address] [id number] [place] [address] 28433- 0505 Mar, [facility] [id number] [place] [address] [id number] Mar, Dental examination V72.2 [place] [address] [id number] [place] [address] 78913- 5042 Feb, Subacromial bursitis 726.19 [place] [address] [place] [id number] [place] [address] 96836- 9546 Feb, [place] [address] [place] [id number] [place] [address] 86911- 7683 January, [place] [address] [place] [id number] [place] [address] 12743- 9143 January, Muscle spasms of lower extremity 728.85 ; Diabetes mellitus , type II 250.00 ; Hypertension 401.9 ; Neuropathy 355.9 ; Hyperlipidemia LDL goal < 100 272.4 ; Hypothyroidism 244.9 ; Insomnia 780.52 ; History of Guillain- Aurora syndrome V12.49 ; Acid reflux disease 530.81 ; Presence of IVC filter V45.89 and Anxiety 300.00 IMMUNIZATIONS No Known Immunizations SOCIAL HISTORY Never Assessed REASON FOR VISIT f/u PLAN OF CARE Activity Details Follow Up 3 Weeks, 1/2 hour Reason: VITAL SIGNS MEDICATIONS Unknown Medications RESULTS No Results PROCEDURES Procedure Date Ordered Result Body Site [facility] VISIT MENTAL HEALTH ESTAB PT Jun 03, 2018 Psychotherapy, patient &/family, 30 minutes, established patient Jun 03, 2018 INSTRUCTIONS MEDICATIONS ADMINISTERED No Known Medications [...]
--- OUTSIDE RECORDS SUMMARY | 2018-10-08 05:55 | XMS REPORT ---
Author Author ASPEN GEO Organization [facility] Address [address] [place] [address] Care Team Providers Care Splunk Developer Name Role Phone ASPENLOULOU SHULTZHANY Unavailable PROBLEMS Type Condition ICD9-CM Code JJZ02-YT Code Onset Dates Condition Status SNOMED Code Problem Chronic prescription benzodiazepine use Z79.899 Active 038388968 Problem Delayed gastric emptying K30 Active 852578340 Problem Hypothyroidism, unspecified hypothyroidism type E03.9 Active 15114608 Problem Presence of IVC filter Z95.828 Active 902227279 Problem Leukocytosis, unspecified type D72.829 Active 179738293 Problem 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 532429619426980 Problem Morbid obesity due to excess calories E66.01 Active 775793641 Problem Gastroesophageal reflux disease, esophagitis presence not specified K21.9 Active 707772791 Problem Fatty liver K76.0 Active 999702820 Problem Constipation by delayed colonic transit K59.01 Active 61476629 Problem Type 2 diabetes mellitus with foot ulcer E11.621 Active 799580072790808 Problem Personality disorder, unspecified F60.9 Active 20822921 Problem Dysthymic disorder F34.1 Active 27628303 Problem Hirsutism L68.0 Active 925083081 Problem Essential hypertension I10 Active 36662766 Problem Anxiety F41.9 Active 71646798 Problem Non-pressure chronic ulcer of other part of right foot limited to breakdown of skin L97.511 Active 113816369 Problem Non-pressure chronic ulcer of other part of left foot limited to breakdown of skin L97.521 Active 005525101 Problem Tinnitus of both ears H93.13 Active 4043600155858 Problem Sensorineural hearing loss (SNHL) of both ears H90.3 Active 136005780 Problem Type 2 diabetes mellitus with diabetic polyneuropathy E11.42 Active 501676205 Problem 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 Active 550465851 Problem Primary insomnia F51.01 Active 109554416 Problem Mixed hyperlipidemia E78.2 Active 114763501 Problem DM neuro manif type II E11.49 Active 40344099 Problem Periodic limb movement sleep disorder G47.61 Active 282065521 Problem Type II or unspecified type diabetes mellitus with neurological manifestations, not stated as uncontrolled E11.49 Active 40682122 Problem Elevated ALT measurement R74.0 Active 117756671 ALLERGIES No Known Allergies ENCOUNTERS Encounter Location Date Diagnosis [facility] [address] [address]- [address] 10 Jun, 2018 [place] [address] 9[address]90- 7570 May, Right arm pain M79.601 [place] [address] 03788- 2247 May, Dysthymic disorder F34.1 and Personality disorder, unspecified F60.9 [place] [address] 86763- 7610 Apr, Right arm pain M79.601 [facility] [address] [address]26- [address]99 Apr, [place] [address] 07836- 1705 Apr, Dysthymic disorder F34.1 and Anxiety F41.9 [place] [address] 10692- 4406 Mar, Acute pain of right knee M25.561 [facility] [address] [place] [id number] [place] [address] 74673- 9045 Mar, [facility] [address] 81496- 7653 Mar, Acute pain of right knee M25.561 [facility] [address] [place] [id number] [place] [address] 34920- 2645 09 Mar, 2018 Type 2 diabetes mellitus with diabetic polyneuropathy E11.42 [facility] [address] [id number] Mar, Dental examination Z01.20 [facility] [address] [place] [id number] [place] [address] 869630- 4546 Mar, Dysthymic disorder F34.1 and Anxiety F41.9 [facility] [address] [place] [id number] [place] [address] 48279- 5445 Feb, [facility] [address] [address] [id number] [place] [address] 51059- 7302 Feb, [facility] [address] [place] [id number] [place] [address] 32783- 6753 Feb, Dental examination Z01.20 [facility] [address] [address] [id number] [place] [address] 48416- 9894 Feb, [facility] [address] [id number] [place] [address] 42796 -8512 Feb, Rib pain on left side R07.81 [facility] [address] [place] [id number] [place] [address] 94256- 3130 Feb, [facility] [address] [place] [id number] [place] [address] 04642- 2036 Feb, [facility] [address] [place] [address] 87275- 5357 January, [facility] [address] [place] [id number] [id number] January, Dental examination Z01.20 [facility] [address] [place] [address] [id number] [id number] January, Dental caries K02.9 [facility] [address] [place] [id number] [place] [address] 15315403- 0446 January, Type 2 diabetes mellitus with foot ulcer E11.621 ; Flexion deformity of finger joint of left hand M21.242 ; Chronic cough R05 ; Tinnitus of both ears H93.13 ; Sensorineural hearing loss (SNHL) of both ears H90.3 and Leukocytosis, unspecified type D72.829 [facility] [address] [address] [id number] [place] [address] 20134- 6975 January, [facility] [address] [place] [id number] [place] [id number] Dec, Dental examination Z01.20 [place] [address] 07405- 1289 Dec, Medicare annual wellness visit, initial Z00.00 ; DM neuro manif type II E11.49 ; Morbid obesity due to excess calories E66.01 ; Essential hypertension I10 ; Anxiety F41.9 ; 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 ; Encounter for immunization Z23 ; Cough R05 and 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 [place] [address] [place] [id number] [place] [address] 86147- 1799 16 Dec, 2017 Cough R05 [place] [address] 73087- 1666 15 Nov, 2017 [place] [address] 00623- 7839 05 Nov, 2017 Screening for breast cancer Z12.31 [place] [address] [place] [id number] [place] [address] 65995- 1714 12 Oct, 2017 [place] [address] [place] [id number] [place] [address] 68930- 4892 Oct, [place] [address] [place] [id number] [place] [address] 15794- 8865 07 Oct, 2017 Type 2 diabetes mellitus [...] foot limited to breakdown of skin L97.521 [facility] [address] [place] [address] [id number] [place] [address] 16232- 1077 Sep, [facility] [address] [place] [id number] [place] [address] 99249- 3733 Sep, [facility] [address] [place] [address] [id number] [place] [address] 84147- 9424 Aug, 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 [facility] [address] [place] [id number] [place] [address] 57595- 8236 Jul, [facility] [address] [place] [id number] [place] [address] 48774- 3320 May, Type 2 diabetes mellitus with diabetic polyneuropathy E11.42 [facility] [address] [place] [id number] [place] [address] 91085- 1938 May, [facility] [address] [place] [id number] [place] [address] 36044- 0904 May, [facility] [address] [place] [id number] [place] [address] 65024- 2311 Apr, Type 2 diabetes mellitus with diabetic polyneuropathy E11.42 and Morbid obesity due to excess calories E66.01 [facility] [address] [address]- 1794 Apr, [facility] [address] [place] [address] [id number] [place] [address] 01260- 7555 Apr, Type 2 diabetes mellitus with diabetic polyneuropathy E11.42 [facility] [address] [address] [id number] [place] [address] 18302 -4551 Apr, [facility] [address] [address] [id number] [place] [address] 57647- 5897 Mar, [facility] [address] [address] [id number] [place] [address] 20322- 4067 Mar, [facility] [address] [address]- 9056 Mar, [facility] [address] [address] [id number] [place] [address] 11773- 6054 Mar, Type 2 diabetes mellitus with diabetic polyneuropathy E11.42 [facility] [address] [address] [id number] [place] [address] 53089- 7842 Feb, [facility] [address] [place] [address] [id number] [place] [address] 69058- 1100 Feb, [facility] [address] [address] [id number] [place] [address] 95541- 1574 Feb, Type 2 diabetes mellitus with diabetic polyneuropathy E11.42 ; Preoperative examination Z01.818 ; Wound, open, foot, left, initial encounter S91.302A ; Weight loss R63.4 and Tobacco abuse Z72.0 [facility] [address] [place] [address] [id number] [place] [address] 93390- 5076 Nov, [facility] [address] [place] [address] 59680- 6086 Nov, Pelvic pain R10.2 [facility] [address] [place] [id number] [place] [address] 66867- 4817 Nov, Morbid obesity due to excess calories E66.01 [facility] [address] [address]- 6777 Nov, [facility] [address] [address]- 5080 Nov, [facility] [address] [address] [id number] [place] [address] 94988- 4971 Nov, [facility] [address] [place] [address] [id number] [place] [address] 979494- 6918 Nov, [facility] [address] [place] [address] 19507- 6750 Oct, [place] [address] [place] [id number] [place] [address] 38544- 7629 Oct, [place] [address] [place] [id number] [place] [address] 34397- 1382 Oct, Well woman exam Z01.419 ; Pelvic pain R10.2 and Type 2 diabetes mellitus with diabetic polyneuropathy E11.42 [place] [address] [place] [address] [id number] [place] [address] 74931- 5623 Oct, 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 [place] [address] [place] [id number] [place] [address] 87143- 4675 Sep, Essential hypertension I10 ; Mixed hyperlipidemia E78.2 ; Leukocytosis, unspecified type D72.829 and Morbid obesity due to excess calories E66.01 [place] [address] [place] [id number] [place] [address] 38751- 8033 Sep, [place] [address] [address] [id number] [place] [address] 02557- 7004 Aug, Hypothyroidism, unspecified hypothyroidism type E03.9 [place] [address] [place] [address] [id number] [place] [address] 50623- 5628 Aug, Hirsutism L68.0 ; Primary insomnia F51.01 ; BMI 37.0-37.9, adult Z68.37 and Gastroesophageal reflux disease, esophagitis presence not specified K21.9 [place] [address] [place] [id number] [place] [address] 45427- 8609 Jul, [place] [address] [place] [id number] [place] [address] 31109- 1260 Jun, [place] [address] [place] [id number] [place] [address] 49395- 5969 Jun, [place] [address] [place] [id number] [place] [address] 01712- 6526 Jun, Hypothyroidism, unspecified hypothyroidism type E03.9 [place] [address] [place] [id number] [place] [address] 48862- 2201 Jun, Type 2 diabetes mellitus with diabetic polyneuropathy E11.42 ; Fatty liver K76.0 ; Leukocytosis, unspecified type D72.829 ; Morbid obesity due to excess calories E66.01 ; Hypotension due to drugs I95.2 ; Non- intractable vomiting with nausea, unspecified vomiting type R11.2 and Mixed hyperlipidemia E78.2 [place] [address] [place] [id number] [place] [address] 44663- 4042 Jun, [place] [address] [place] [id number] [place] [address] 60979- 3148 Apr, [place] [address] 74742- 6559 Apr, [place] [address] 74101- 1358 Mar, Eustachian tube dysfunction, bilateral H69.83 [place] [address] [place] [id number] [place] [address] 91357- 6471 Mar, [place] [address] 13691- 1033 Feb, [place] [address] [place] [id number] [place] [address] 49398- 6706 Feb, Type 2 diabetes mellitus with diabetic polyneuropathy E11.42 ; Periodic limb movement sleep disorder G47.61 ; Hirsutism L68.0 ; Leukocytosis, unspecified type D72.829 and Postural dizziness R42 [place] [address] [place] [id number] [place] [address] 06113- 6150 Dec, Onychomycosis B35.1 and Foot ulcer L97.509 [place] [address] [place] [id number] [place] [address] 21275- 9574 Nov, [place] [address] [place] [id number] [place] [address] 11009- 8175 Nov, Preoperative cardiovascular examination Z01.810 ; Type 2 diabetes mellitus with diabetic polyneuropathy E11.42 and Essential hypertension I10 [place] [address] [place] [id number] [place] [address] 00117- 6447 12 Oct, 2015 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 ; Hammertoe M20.40 and DM neuro manif type II E11.49 [place] [address] [place] [id number] [place] [address] 02368- 0836 11 Oct, 2015 Impingement syndrome of right shoulder M75.41 [place] [address] [place] [id number] [place] [address] 84040- 5035 Sep, [place] [address] 17147- 1636 Sep, [place] [address] [place] [id number] [place] [address] 02056- 2114 Sep, Leukocytosis, unspecified elevated WBC count D72.829 [place] [address] [place] [address] [id number] [place] [address] 66635- 1970 Sep, Leukocytosis, unspecified elevated WBC count D72.829 [place] [address] [address] [id number] [place] [address] 58944- 6603 Sep, [place] [address] [address] [id number] [place] [address] 46590- 0697 Sep, [place] [address] [address] [id number] [place] [address] 73325- 1851 Sep, [place] [address] [address] [id number] [place] [address] 54516- 8525 Sep, Periodic limb movement sleep disorder G47.61 ; Leukocytosis , unspecified elevated WBC count D72.829 and Mixed hyperlipidemia E78.2 [place] [address] [address] [id number] [place] [address] 47432- 6143 Sep, Periodic limb movement sleep disorder G47.61 [place] [address] [address] [id number] [place] [address] 42177- 8219 Aug, [place] [address] [address] [id number] [place] [address] 74311- 9315 Aug, Type 2 diabetes mellitus with diabetic polyneuropathy E11.42 ; 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 and Major depressive disorder , recurrent episode, mild F33.0 [place] [address] [address] [id number] [place] [address] 93077- 9516 Aug, Impingement syndrome of right shoulder M75.41 [place] [address] 17254- 2664 Aug, Shortness of breath R06.02 [place] [address] 14151- 3721 Aug, [place] [address] 04093- 0793 Aug, 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 and Type II or unspecified type diabetes mellitus with neurological manifestations, not stated as uncontrolled E11.49 [place] [address] 91226- 9048 Aug, [place] [address] 02101- 4050 Jul, Presence of IVC filter Z95.828 [place] [address] 80288- 3195 Jul, Rotator cuff tear, right M75.101 [place] [address] [address] [id number] [place] [address] 17665- 7277 Jul, [place] [address] [place] [address] [id number] [place] [address] 97976- 6270 Jul, [place] [address] 00878- 4029 Jul, [place] [address] 62680- 2711 Jun, Leukocytosis, unspecified elevated WBC count D72.829 and Mixed hyperlipidemia E78.2 [place] [address] [address] [id number] [place] [address] 10691- 8701 Jun, Type 2 diabetes mellitus with diabetic polyneuropathy E11.42 ; Hypothyroidism, unspecified hypothyroidism type E03.9 ; Elevated ALT measurement R74.0 ; Mixed hyperlipidemia E78.2 ; Primary insomnia F51.01 ; Seizure-like activity R56.9 ; Presence of IVC filter Z95.828 and Elevated liver enzymes R74.8 [place] [address] 15571- 0452 Jun, [place] [address] 54461- 2389 Jun, Hammertoe M20.40 and 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 [place] [address] 25451- 7342 Jun, Elevated liver enzymes R74.8 [place] [address] 57165- 8170 Jun, Elevated liver enzymes R74.8 [place] [address] 38417- 2414 May, Elevated liver enzymes R74.8 [place] [address] 60890- 7412 May, Hypertension 401.9 ; Hirsutism 704.1 and Hypokalemia 276.8 [place] [address] [place] [address] [id number] [place] [address] 90057- 1150 May, Hypertension 401.9 ; Hirsutism 704.1 and Hypokalemia 276.8 [place] [address] 19387- 6381 17 May, 2015 Impingement syndrome of right shoulder 726.2 and SLAP lesion of right shoulder 840.7 [place] [address] 20970- 3455 May, [facility] [address] [place] [address] 86480- 7076 Mar, Decreased sex drive 799.81 and Foot pain, bilateral 729.5 [facility] [id number] [place] [address] 54290- 8424 Mar, Impingement syndrome of right shoulder 726.2 [place] [address] 85061- 8967 Mar, [facility] [id number] [place] [address] [id number] Mar, Dental examination V72.2 [place] [address] [address] [id number] [place] [address] 62302- 6080 Feb, Subacromial bursitis 726.19 [place] [address] 42355- 6438 Feb, [place] [address] [address] [id number] [place] [address] 16078- 0302 January, [place] [address] [address] [id number] [place] [address] 47534- 8525 January, Muscle spasms of lower extremity 728.85 ; Diabetes mellitus , type II 250.00 ; Hypertension 401.9 ; Neuropathy 355.9 ; Hyperlipidemia LDL goal < 100 272.4 ; Hypothyroidism 244.9 ; Insomnia 780.52 ; History of Guillain- Greencastle syndrome V12.49 ; Acid reflux disease 530.81 ; Presence of IVC filter V45.89 and Anxiety 300.00 IMMUNIZATIONS No Known Immunizations SOCIAL HISTORY Never Assessed REASON FOR VISIT Knee pain f/u, patient states she is having rt arm pain x 2 months -- andrea floyd PLAN OF CARE Activity Details Follow Up prn Reason: VITAL SIGNS Height 61 in 2018-05-28 Weight 168.7 lbs 2018-05-28 Temperature 97.9 degrees Fahrenheit 2018-05-28 Heart Rate 78 bpm 2018-05-28 Respiratory Rate 20 2018-05-28 BMI 31.87 kg/m2 2018-05-28 Blood pressure systolic 112 mmHg 2018-05-28 Blood pressure diastolic 70 mmHg 2018-05-28 MEDICATIONS Medication Instructions Dosage Frequency Start Date End Date Duration Status Test strips Test Strips subcutaneously - test once daily OneTouch Verio test strips as directed Apr, Active Ranitidine HCl 150 MG TAKE ONE TABLET BY MOUTH TWICE DAILY (MUST HAVE APPOINTMENT FOR REFILL) 30 Active Glucometer 1 kit subcutaneously Once a day OneTouch Verio meter 24h Apr Active Duloxetine HCl 60 MG TAKE ONE CAPSULE BY MOUTH ONCE DAILY (MUST HAVE APPOINTMENT FOR REFILL) 30 Active Omeprazole 40 MG TAKE ONE CAPSULE BY MOUTH ONCE DAILY 90 Active Ibuprofen 200 MG Orally every 6 hrs 1 tablet as needed 6h Active Lidoderm 5 % APPLY ONE PATCH TOPICALLY TO SKIN ONCE DAILY AND REMOVE AFTER 12 HOURS 60 Active Naprosyn 500 mg Orally every 12 hrs 1 tablet with food or milk as needed 12h Apr, May, 14 days Active Lisinopril 5 MG TAKE 1 TABLET BY MOUTH ONCE DAILY 90 Active Atorvastatin Calcium 40 mg Orally Once a day 1 tablet 24h 30 Active Metformin HCl 500 MG TAKE ONE TABLET BY MOUTH TWICE DAILY WITH MEALS (MUST HAVE APPOINTMENT FOR REFILL) Active Multivitamin Active Promethazine HCl 25 MG TAKE ONE TABLET BY MOUTH EVERY 6 HOURS NEEDED 15 Active Pen [place] 32G X 4 MM as directed 24h Apr, Active Levothyroxine Sodium 50 MCG TAKE ONE TABLET BY MOUTH ONCE DAILY (MUST HAVE APPOINTMENT FOR REFILL) 30 Active OneTouch Verio - TEST DAILY 50 Active Potassium Chloride 10 MEQ Orally Twice a day 1 capsule 12h 30 Active Baclofen 10 mg Orally Three times a day 1 tablet with food or milk as needed 8h 20 Active RESULTS Name Result Date Reference Range Xray : Humerus, Right (IN HOUSE) 2018-05-28 PROCEDURES Procedure Date Ordered Result Body Site X-RAY EXAM OF HUMERUS May 28, 2018 [facility] VISIT ESTABLISHED PATIENT May 28, 2018 INSTRUCTIONS MEDICATIONS ADMINISTERED No Known Medications [...]
--- OUTSIDE RECORDS SUMMARY | 2018-10-08 05:55 | XMS REPORT ---
Author Author ASPEN GEO Organization [facility] Address [address] [place] [address] Care Team Providers Care Rip/Mould Operator Name Role Phone ASPENLOULOU SHULTZHANY Unavailable PROBLEMS Type Condition ICD9-CM Code [id number] Code Onset Dates Condition Status SNOMED Code Problem Chronic prescription benzodiazepine use Z79.899 Active 369756002 Problem Delayed gastric emptying K30 Active 669142341 Problem Hypothyroidism, unspecified hypothyroidism type E03.9 Active 99676998 Problem Presence of IVC filter Z95.828 Active 588921885 Problem Leukocytosis, unspecified type D72.829 Active 534947132 Problem 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 700850799765901 Problem Morbid obesity due to excess calories E66.01 Active 365903467 Problem Gastroesophageal reflux disease, esophagitis presence not specified K21.9 Active 787968746 Problem Fatty liver K76.0 Active 809887152 Problem Constipation by delayed colonic transit K59.01 Active 46630974 Problem Type 2 diabetes mellitus with foot ulcer E11.621 Active 197510863019669 Problem Personality disorder, unspecified F60.9 Active 85884834 Problem Dysthymic disorder F34.1 Active 69593366 Problem Hirsutism L68.0 Active 780071264 Problem Essential hypertension I10 Active 74463478 Problem Anxiety F41.9 Active 61438488 Problem Non-pressure chronic ulcer of other part of right foot limited to breakdown of skin L97.511 Active 891602003 Problem Non-pressure chronic ulcer of other part of left foot limited to breakdown of skin L97.521 Active 629986456 Problem Tinnitus of both ears H93.13 Active 8051599061395 Problem Sensorineural hearing loss (SNHL) of both ears H90.3 Active 665055819 Problem Type 2 diabetes mellitus with diabetic polyneuropathy E11.42 Active 247314840 Problem 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 Active 646550634 Problem Primary insomnia F51.01 Active 158208009 Problem Mixed hyperlipidemia E78.2 Active 364924758 Problem DM neuro manif type II E11.49 Active 12870148 Problem Periodic limb movement sleep disorder G47.61 Active 298332545 Problem Type II or unspecified type diabetes mellitus with neurological manifestations, not stated as uncontrolled E11.49 Active 75977005 Problem Elevated ALT measurement R74.0 Active 356898146 ALLERGIES No Information ENCOUNTERS Encounter Location Date Diagnosis [facility] [address] [address] Jun, [facility] [address] [address]- [address] May, Right arm pain M79.601 [place] [address] [address]- [address]88 May, Dysthymic disorder F34.1 and Personality disorder, unspecified F60.9 [place] [address] 16058- 8418 Apr, Right arm pain M79.601 [facility] [address] 7[address]- [address] Apr, [place] [address] 957[address]- 5561 Apr, Dysthymic disorder F34.1 and Anxiety F41.9 [facility] [address] 7[address]- [address]71 Mar, Acute pain of right knee M25.561 [facility] [address] [place] [id number] [place] [address] 34248- 7329 Mar, [facility] [address] 67487- 6796 Mar, Acute pain of right knee M25.561 [facility] [address] [place] [id number] [place] [address] 42100- 5195 09 Mar, 2018 Type 2 diabetes mellitus with diabetic polyneuropathy E11.42 [facility] [address] [id number] Mar, Dental examination Z01.20 [facility] [address] [id number] [place] [address] 974644- 6096 Mar, Dysthymic disorder F34.1 and Anxiety F41.9 [facility] [id number] [place] [address] 27750- 2211 Feb, [facility] [address] [id number] [place] [address] 68088- 1763 Feb, [facility] [address] [id number] [place] [address] 49166- 8013 Feb, Dental examination Z01.20 [facility] [address] [id number] [place] [address] 06682- 5389 Feb, [facility] [id number] [place] [address] 61656 -3038 Feb, Rib pain on left side R07.81 [facility] [address] [id number] [place] [address] 35808- 6741 Feb, [facility] [id number] [place] [address] 67219- 0774 Feb, [facility] [id number] [place] [address] 26940- 7386 January, [facility] [id number] [place] [address] [id number] January, Dental examination Z01.20 [facility] [address] [place] [id number] [id number] January, Dental caries K02.9 [facility] [address] [id number] [place] [address] 21874404- 2346 January, Type 2 diabetes mellitus with foot ulcer E11.621 ; Flexion deformity of finger joint of left hand M21.242 ; Chronic cough R05 ; Tinnitus of both ears H93.13 ; Sensorineural hearing loss (SNHL) of both ears H90.3 and Leukocytosis, unspecified type D72.829 [facility] [address] [address] [id number] [place] [address] 91558- 4737 January, [facility] [id number] [place] [address] [id number] Dec, Dental examination Z01.20 [place] [address] 12791- 7021 Dec, Medicare annual wellness visit, initial Z00.00 ; DM neuro manif type II E11.49 ; Morbid obesity due to excess calories E66.01 ; Essential hypertension I10 ; Anxiety F41.9 ; 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 ; Encounter for immunization Z23 ; Cough R05 and 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 [place] [address] 83310- 4886 16 Dec, 2017 Cough R05 [place] [address] 94118- 7585 15 Nov, 2017 [place] [address] 06520- 1317 05 Nov, 2017 Screening for breast cancer Z12.31 [place] [address] [place] [id number] [place] [address] 50465- 6164 12 Oct, 2017 [place] [address] 96802- 4080 Oct, [place] [address] 22454- 4966 07 Oct, 2017 Type 2 diabetes mellitus [...] skin L97.521 [facility] [address] [address] [id number] [place] [address] 64487- 4447 Sep, [facility] [address] [id number] [place] [address] 82727- 7069 Sep, [facility] [address] [id number] [place] [address] 51452- 8829 Aug, 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 [facility] [address] [id number] [place] [address] 45749- 8970 Jul, [facility] [address] [id number] [place] [address] 61839- 7022 May, Type 2 diabetes mellitus with diabetic polyneuropathy E11.42 [facility] [address] [id number] [place] [address] 05614- 2234 May, [facility] [address] [id number] [place] [address] 76544- 5024 May, [facility] [address] [id number] [place] [address] 96229- 4544 Apr, Type 2 diabetes mellitus with diabetic polyneuropathy E11.42 and Morbid obesity due to excess calories E66.01 [facility] [address] [address] Apr, [facility] [address] [id number] [place] [address] 32303- 0276 Apr, Type 2 diabetes mellitus with diabetic polyneuropathy E11.42 [facility] [address] [id number] [place] [address] 99201 -4256 Apr, [facility] [address] [address] [id number] [place] [address] 49098- 4185 Mar, [facility] [id number] [place] [address] 24489- 3050 Mar, [facility] [id number] [place] [address] 67913- 4199 Mar, [facility] [address] [id number] [place] [address] 16315- 2834 Mar, Type 2 diabetes mellitus with diabetic polyneuropathy E11.42 [facility] [id number] [place] [address] 56453- 6482 Feb, [facility] [id number] [place] [address] 92670- 1611 Feb, [facility] [address] [address] [id number] [place] [address] 34816- 7954 Feb, Type 2 diabetes mellitus with diabetic polyneuropathy E11.42 ; Preoperative examination Z01.818 ; Wound, open, foot, left, initial encounter S91.302A ; Weight loss R63.4 and Tobacco abuse Z72.0 [facility] [address] [id number] [place] [address] 96972- 1644 Nov, [facility] [address] [id number] [place] [address] 06452- 6469 Nov, Pelvic pain R10.2 [facility] [address] [address] [id number] [place] [address] 71890- 3249 Nov, Morbid obesity due to excess calories E66.01 [facility] [address] [id number] [address]- 6842 Nov, [facility] [address] [id number] [place] [address] 93686- 3917 Nov, [facility] [address] [address] [id number] [place] [address] 56451- 9449 Nov, [facility] [address] [address] [id number] [place] [address] 145630- 5353 Nov, [facility] [id number] [place] [address] 60933- 1869 Oct, [place] [id number] [place] [address] 23208- 2932 Oct, [place] [address] [place] [id number] [place] [address] 15895- 9036 Oct, Well woman exam Z01.419 ; Pelvic pain R10.2 and Type 2 diabetes mellitus with diabetic polyneuropathy E11.42 [place] [address] [place] [id number] [place] [address] 56192- 0180 Oct, 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 [place] [address] [place] [id number] [place] [address] 25662- 5753 Sep, Essential hypertension I10 ; Mixed hyperlipidemia E78.2 ; Leukocytosis, unspecified type D72.829 and Morbid obesity due to excess calories E66.01 [place] [address] [place] [id number] [place] [address] 42961- 7334 Sep, [place] [address] [place] [id number] [place] [address] 37532- 7715 Aug, Hypothyroidism, unspecified hypothyroidism type E03.9 [place] [address] [place] [id number] [place] [address] 79250- 9923 Aug, Hirsutism L68.0 ; Primary insomnia F51.01 ; BMI 37.0-37.9, adult Z68.37 and Gastroesophageal reflux disease, esophagitis presence not specified K21.9 [place] [address] [place] [address] 18369- 6961 Jul, [place] [id number] [place] [address] 55868- 9172 Jun, [place] [address] [place] [id number] [place] [address] 16219- 2676 Jun, [place] [address] [place] [id number] [place] [address] 88019- 9972 Jun, Hypothyroidism, unspecified hypothyroidism type E03.9 [place] [address] [place] [id number] [place] [address] 25566- 7038 Jun, Type 2 diabetes mellitus with diabetic polyneuropathy E11.42 ; Fatty liver K76.0 ; Leukocytosis, unspecified type D72.829 ; Morbid obesity due to excess calories E66.01 ; Hypotension due to drugs I95.2 ; Non- intractable vomiting with nausea, unspecified vomiting type R11.2 and Mixed hyperlipidemia E78.2 [place] [address] 84878- 2972 Jun, [place] [address] 33938- 1468 Apr, [place] [address] 83166- 3920 Apr, [address] 67487- 0837 Mar, Eustachian tube dysfunction, bilateral H69.83 [place] [address] [place] [id number] [place] [address] 02292- 8528 Mar, [place] [address] 34952- 2566 Feb, [place] [address] [place] [id number] [place] [address] 40164- 5528 Feb, Type 2 diabetes mellitus with diabetic polyneuropathy E11.42 ; Periodic limb movement sleep disorder G47.61 ; Hirsutism L68.0 ; Leukocytosis, unspecified type D72.829 and Postural dizziness R42 [place] [address] [place] [id number] [place] [address] 58535- 4410 Dec, Onychomycosis B35.1 and Foot ulcer L97.509 [place] [address] [place] [id number] [place] [address] 09270- 7253 Nov, [place] [address] [place] [id number] [place] [address] 27600- 9033 Nov, Preoperative cardiovascular examination Z01.810 ; Type 2 diabetes mellitus with diabetic polyneuropathy E11.42 and Essential hypertension I10 [place] [address] [place] [id number] [place] [address] 32685- 5605 12 Oct, 2015 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 ; Hammertoe M20.40 and DM neuro manif type II E11.49 [place] [address] [place] [id number] [place] [address] 07491- 0965 11 Oct, 2015 Impingement syndrome of right shoulder M75.41 [place] [address] 97598- 9257 Sep, [place] [address] 35668- 7699 Sep, [place] [address] [place] [id number] [place] [address] 51987- 6488 Sep, Leukocytosis, unspecified elevated WBC count D72.829 [place] [address] 87877- 6167 Sep, Leukocytosis, unspecified elevated WBC count D72.829 [place] [address] 07082- 8227 Sep, [place] [address] [place] [id number] [place] [address] 74051- 9224 Sep, [place] [address] [place] [id number] [place] [address] 56095- 9862 Sep, [place] [address] [place] [id number] [place] [address] 98517- 8540 Sep, Periodic limb movement sleep disorder G47.61 ; Leukocytosis , unspecified elevated WBC count D72.829 and Mixed hyperlipidemia E78.2 [place] [address] [place] [id number] [place] [address] 00385- 2828 Sep, Periodic limb movement sleep disorder G47.61 [place] [address] [place] [id number] [place] [address] 77348- 0939 Aug, [place] [address] [place] [id number] [place] [address] 65499- 6061 Aug, Type 2 diabetes mellitus with diabetic polyneuropathy E11.42 ; 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 and Major depressive disorder , recurrent episode, mild F33.0 [place] [address] 41311- 2566 Aug, Impingement syndrome of right shoulder M75.41 [place] [address] 61469- 2422 Aug, Shortness of breath R06.02 [place] [address] 00038- 3554 Aug, [place] [address] 74237- 1393 Aug, 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 and Type II or unspecified type diabetes mellitus with neurological manifestations, not stated as uncontrolled E11.49 [place] [address] 63646- 9602 Aug, [place] [address] 06152- 6108 Jul, Presence of IVC filter Z95.828 [place] [address] 27213- 8618 Jul, Rotator cuff tear, right M75.101 [place] [address] 37465- 8472 Jul, [place] [address] 02982- 8548 Jul, [place] [address] 77202- 0697 Jul, [place] [address] 78615- 5242 Jun, Leukocytosis, unspecified elevated WBC count D72.829 and Mixed hyperlipidemia E78.2 [place] [address] [place] [id number] [place] [address] 30226- 1123 Jun, Type 2 diabetes mellitus with diabetic polyneuropathy E11.42 ; Hypothyroidism, unspecified hypothyroidism type E03.9 ; Elevated ALT measurement R74.0 ; Mixed hyperlipidemia E78.2 ; Primary insomnia F51.01 ; Seizure-like activity R56.9 ; Presence of IVC filter Z95.828 and Elevated liver enzymes R74.8 [place] [address] 69936- 4325 Jun, [place] [address] 23103- 5750 Jun, Hammertoe M20.40 and 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 [place] [address] 99089- 6913 Jun, Elevated liver enzymes R74.8 [place] [address] 65689- 4952 Jun, Elevated liver enzymes R74.8 [place] [address] 33648- 3188 May, Elevated liver enzymes R74.8 [place] [address] 66820- 0985 May, Hypertension 401.9 ; Hirsutism 704.1 and Hypokalemia 276.8 [place] [address] [place] [id number] [place] [address] 52476- 8661 May, Hypertension 401.9 ; Hirsutism 704.1 and Hypokalemia 276.8 [place] [address] 87054- 7152 17 May, 2015 Impingement syndrome of right shoulder 726.2 and SLAP lesion of right shoulder 840.7 [place] [address] 06281- 0949 May, [facility] [address] [address]- 3313 Mar, Decreased sex drive 799.81 and Foot pain, bilateral 729.5 [facility] [address] [place] [address] 21851- 0019 Mar, Impingement syndrome of right shoulder 726.2 [place] [address] [place] [id number] [place] [address] 43364- 6066 Mar, [facility] [id number] [place] [address] [id number] Mar, Dental examination V72.2 [place] [address] [id number] [place] [address] 62448- 0088 Feb, Subacromial bursitis 726.19 [place] [address] [place] [id number] [place] [address] 56867- 5999 Feb, [place] [address] [place] [id number] [place] [address] 61533- 4511 January, [place] [address] [place] [id number] [place] [address] 06022- 7165 January, Muscle spasms of lower extremity 728.85 ; Diabetes mellitus , type II 250.00 ; Hypertension 401.9 ; Neuropathy 355.9 ; Hyperlipidemia LDL goal < 100 272.4 ; Hypothyroidism 244.9 ; Insomnia 780.52 ; History of Guillain- Good Thunder syndrome V12.49 ; Acid reflux disease 530.81 ; Presence of IVC filter V45.89 and Anxiety 300.00 IMMUNIZATIONS No Known Immunizations SOCIAL HISTORY Never Assessed REASON FOR VISIT Prior Authorization Request PLAN OF CARE VITAL SIGNS MEDICATIONS Unknown [...]
--- OUTSIDE RECORDS SUMMARY | 2018-10-08 05:55 | XMS REPORT ---
Author Author BRIELLE CANTRELL Organization [facility] Address [address] [place] [address] Care Team Providers Care Network Announcer Name Role Phone BRIELLE CANTRELL Unavailable PROBLEMS Type Condition ICD9-CM Code ESJ28-TV Code Onset Dates Condition Status SNOMED Code Problem Chronic prescription benzodiazepine use Z79.899 Active 096751249 Problem Delayed gastric emptying K30 Active 635293958 Problem Hypothyroidism, unspecified hypothyroidism type E03.9 Active 81156352 Problem Presence of IVC filter Z95.828 Active 805929963 Problem Leukocytosis, unspecified type D72.829 Active 105296610 Problem 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 Active 845001242516986 Problem Morbid obesity due to excess calories E66.01 Active 860396352 Problem Gastroesophageal reflux disease, esophagitis presence not specified K21.9 Active 201021210 Problem Fatty liver K76.0 Active 321890627 Problem Constipation by delayed colonic transit K59.01 Active 02195256 Problem Type 2 diabetes mellitus with foot ulcer E11.621 Active 936571341880104 Problem Personality disorder, unspecified F60.9 Active 44554501 Problem Dysthymic disorder F34.1 Active 60770657 Problem Hirsutism L68.0 Active 044553605 Problem Essential hypertension I10 Active 30799305 Problem Anxiety F41.9 Active 00318005 Problem Non-pressure chronic ulcer of other part of right foot limited to breakdown of skin L97.511 Active 845576328 Problem Non-pressure chronic ulcer of other part of left foot limited to breakdown of skin L97.521 Active 605867085 Problem Tinnitus of both ears H93.13 Active 5327459650277 Problem Sensorineural hearing loss (SNHL) of both ears H90.3 Active 446849489 Problem Type 2 diabetes mellitus with diabetic polyneuropathy E11.42 Active 168576664 Problem 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 Active 133242559 Problem Primary insomnia F51.01 Active 208637143 Problem Mixed hyperlipidemia E78.2 Active 525891471 Problem DM neuro manif type II E11.49 Active 42325731 Problem Periodic limb movement sleep disorder G47.61 Active 524732920 Problem Type II or unspecified type diabetes mellitus with neurological manifestations, not stated as uncontrolled E11.49 Active 20242685 Problem Elevated ALT measurement R74.0 Active 764105664 ALLERGIES No Information ENCOUNTERS Encounter Location Date Diagnosis [facility] [address] [address]- [address] Jun, [facility] [address] [address]- [address] 18 May, 2018 [place] [address] 16939- 4261 May, Dysthymic disorder F34.1 and Personality disorder, unspecified F60.9 [place] [address] 38687- 5841 Apr, Right arm pain M79.601 [place] [address] 71406- 4363 Apr, [place] [address] 30233- 9866 Apr, Dysthymic disorder F34.1 and Anxiety F41.9 [place] [address] 91875- 1086 Mar, Acute pain of right knee M25.561 [facility] [id number] [place] [address] 06772- 6244 Mar, [facility] [address] [address]- 1967 Mar, Acute pain of right knee M25.561 [facility] [id number] [place] [address] 05418- 7342 09 Mar, 2018 Type 2 diabetes mellitus with diabetic polyneuropathy E11.42 [facility] [address] [place] [address] [id number] Mar, Dental examination Z01.20 [facility] [id number] [place] [address] 71902- 9471 Mar, Dysthymic disorder F34.1 and Anxiety F41.9 [facility] [id number] [place] [address] 64163- 6468 Feb, [facility] [id number] [place] [address] 28990- 3163 Feb, [facility] [id number] [place] [address] 63014- 1085 Feb, Dental examination Z01.20 [facility] [id number] [place] [address] 41905- 8328 Feb, [facility] [id number] [place] [address] 60779 -4493 Feb, Rib pain on left side R07.81 [facility] [id number] [place] [address] 44978- 5450 Feb, [facility] [id number] [place] [address] 98952- 3303 Feb, [facility] [id number] [place] [address] 64201- 3716 January, [facility] [id number] [place] [address] [id number] January, Dental examination Z01.20 [facility] [id number] [place] [address] [id number] January, Dental caries K02.9 [facility] [id number] [place] [address] [id number]- 9986 January, Type 2 diabetes mellitus with foot ulcer E11.621 ; Flexion deformity of finger joint of left hand M21.242 ; Chronic cough R05 ; Tinnitus of both ears H93.13 ; Sensorineural hearing loss (SNHL) of both ears H90.3 and Leukocytosis, unspecified type D72.829 [place] [id number] [place] [address] 68412- 1196 January, [facility] [id number] [id number] Dec, Dental examination Z01.20 [place] [id number] [place] [address] 16719- 0906 Dec, Medicare annual wellness visit, initial Z00.00 ; DM neuro manif type II E11.49 ; Morbid obesity due to excess calories E66.01 ; Essential hypertension I10 ; Anxiety F41.9 ; 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 ; Encounter for immunization Z23 ; Cough R05 and 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 [place] [id number] [place] [address] 21299- 2516 16 Dec, 2017 Cough R05 [place] [id number] [place] [address] 31545- 9635 15 Nov, 2017 [place] [id number] [place] [address] 08632- 7582 05 Nov, 2017 Screening for breast cancer Z12.31 [place] [id number] [place] [address] 70733- 2761 12 Oct, 2017 [place] [id number] [place] [address] 69894- 7024 Oct, [place] [id number] [place] [address] 20165- 4855 07 Oct, 2017 Type 2 diabetes mellitus [...] limited to breakdown of skin L97.521 [facility] [id number] [place] [address] 30771- 8414 Sep, [facility] [id number] [place] [address] 54407- 7073 Sep, [facility] [id number] [place] [address] 89158- 1980 Aug, 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 [facility] [address] [id number] [place] [address] 81914- 1055 Jul, [facility] [id number] [place] [address] 27291- 3280 May, Type 2 diabetes mellitus with diabetic polyneuropathy E11.42 [facility] [id number] [place] [address] 19989- 4249 May, [facility] [id number] [place] [address] 93424- 7663 May, [facility] [id number] [place] [address] 60019- 3023 Apr, Type 2 diabetes mellitus with diabetic polyneuropathy E11.42 and Morbid obesity due to excess calories E66.01 [facility] [address] [address]- 8[address] Apr, [facility] [id number] [place] [address] 19088- 5271 Apr, Type 2 diabetes mellitus with diabetic polyneuropathy E11.42 [facility] [address] [address] Apr, [facility] [id number] [place] [address] 81545- 0731 Mar, [facility] [id number] [place] [address] 09832- 5272 Mar, [place] [address] [address]- 8124 Mar, [facility] [id number] [place] [address] 50924- 6154 Mar, Type 2 diabetes mellitus with diabetic polyneuropathy E11.42 [facility] [address] [address]- 1427 Feb, [facility] [id number] [place] [address] 21731- 8188 Feb, [facility] [address] [address]- 2516 Feb, Type 2 diabetes mellitus with diabetic polyneuropathy E11.42 ; Preoperative examination Z01.818 ; Wound, open, foot, left, initial encounter S91.302A ; Weight loss R63.4 and Tobacco abuse Z72.0 [facility] [id number] [place] [address] 96267- 4515 Nov, [facility] [id number] [place] [address] 77316- 3738 Nov, Pelvic pain R10.2 [facility] [id number] [place] [address] 30738- 2781 Nov, Morbid obesity due to excess calories E66.01 [facility] [address] [address]- 0260 Nov, [facility] [id number] [address]- 4307 Nov, [facility] [address] [address]- 4254 Nov, [facility] [address] [address]- 2715 Nov, [facility] [address] [address]- 8082 Oct, [facility] [id number] [place] [address] 01339- 3541 Oct, [place] [address] 83265- 9556 Oct, Well woman exam Z01.419 ; Pelvic pain R10.2 and Type 2 diabetes mellitus with diabetic polyneuropathy E11.42 [place] [address] 40355- 3035 Oct, 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 [place] [address] 85682- 3913 Sep, Essential hypertension I10 ; Mixed hyperlipidemia E78.2 ; Leukocytosis, unspecified type D72.829 and Morbid obesity due to excess calories E66.01 [place] [address] 71459- 4730 Sep, [place] [address] 33128- 0305 Aug, Hypothyroidism, unspecified hypothyroidism type E03.9 [place] [address] 77720- 3459 Aug, Hirsutism L68.0 ; Primary insomnia F51.01 ; BMI 37.0-37.9, adult Z68.37 and Gastroesophageal reflux disease, esophagitis presence not specified K21.9 [place] [address] [address] [id number] [place] [address] 39712- 7991 Jul, [place] [address] [address] [id number] [place] [address] 22019- 9301 Jun, [place] [address] 91526- 4100 Jun, [place] [address] [address] [id number] [place] [address] 96209- 9925 Jun, Hypothyroidism, unspecified hypothyroidism type E03.9 [place] [address] [place] [address]- 0482 Jun, Type 2 diabetes mellitus with diabetic polyneuropathy E11.42 ; Fatty liver K76.0 ; Leukocytosis, unspecified type D72.829 ; Morbid obesity due to excess calories E66.01 ; Hypotension due to drugs I95.2 ; Non- intractable vomiting with nausea, unspecified vomiting type R11.2 and Mixed hyperlipidemia E78.2 [place] [address] 91018- 6624 Jun, [place] [address] 84528- 0429 Apr, [place] [address] 04747- 9562 Apr, [place] [address] 89628- 4575 Mar, Eustachian tube dysfunction, bilateral H69.83 [place] [address] 79918- 6960 Mar, [place] [address] 30732- 1812 Feb, [place] [address] 52806- 6706 Feb, Type 2 diabetes mellitus with diabetic polyneuropathy E11.42 ; Periodic limb movement sleep disorder G47.61 ; Hirsutism L68.0 ; Leukocytosis, unspecified type D72.829 and Postural dizziness R42 [place] [address] [id number] [place] [address] 31374- 4451 Dec, Onychomycosis B35.1 and Foot ulcer L97.509 [place] [address] 00518- 1509 Nov, [place] [address] [id number] [place] [address] 06936- 1906 Nov, Preoperative cardiovascular examination Z01.810 ; Type 2 diabetes mellitus with diabetic polyneuropathy E11.42 and Essential hypertension I10 [place] [address] [place] [id number] [place] [address] 37182- 0470 12 Oct, 2015 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 ; Hammertoe M20.40 and DM neuro manif type II E11.49 [place] [id number] [place] [address] 70008- 2548 11 Oct, 2015 Impingement syndrome of right shoulder M75.41 [place] [address] [place] [id number] [place] [address] 94451- 5456 Sep, [place] [address] [id number] [place] [address] 42840- 3736 Sep, [place] [address] [id number] [place] [address] 77312- 8588 Sep, Leukocytosis, unspecified elevated WBC count D72.829 [place] [address] [id number] [place] [address] 47537- 0420 Sep, Leukocytosis, unspecified elevated WBC count D72.829 [place] [address] [id number] [place] [address] 33065- 5796 Sep, [place] [address] [id number] [place] [address] 31007- 2351 Sep, [place] [address] [id number] [place] [address] 95862- 9427 Sep, [place] [address] [id number] [place] [address] 21142- 2549 Sep, Periodic limb movement sleep disorder G47.61 ; Leukocytosis , unspecified elevated WBC count D72.829 and Mixed hyperlipidemia E78.2 [place] [address] [id number] [place] [address] 87623- 8853 Sep, Periodic limb movement sleep disorder G47.61 [place] [address] [id number] [place] [address] 28060- 9649 Aug, [place] [id number] [place] [address] 46350- 2717 Aug, Type 2 diabetes mellitus with diabetic polyneuropathy E11.42 ; 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 and Major depressive disorder , recurrent episode, mild F33.0 [place] [address] [id number] [place] [address] 83634- 1257 Aug, Impingement syndrome of right shoulder M75.41 [place] [address] 22086- 6172 Aug, Shortness of breath R06.02 [place] [address] 90205- 5321 Aug, [place] [address] 09492- 7153 Aug, 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 and Type II or unspecified type diabetes mellitus with neurological manifestations, not stated as uncontrolled E11.49 [place] [address] 00426- 2343 Aug, [place] [address] 67623- 3866 Jul, Presence of IVC filter Z95.828 [place] [address] 16373- 0170 Jul, Rotator cuff tear, right M75.101 [place] [address] 73254- 9470 Jul, [place] [address] 52668- 0209 Jul, [place] [address] 53001- 9382 Jul, [place] [address] 44392- 4151 Jun, Leukocytosis, unspecified elevated WBC count D72.829 and Mixed hyperlipidemia E78.2 [place] [address] [id number] [place] [address] 83654- 7636 Jun, Type 2 diabetes mellitus with diabetic polyneuropathy E11.42 ; Hypothyroidism, unspecified hypothyroidism type E03.9 ; Elevated ALT measurement R74.0 ; Mixed hyperlipidemia E78.2 ; Primary insomnia F51.01 ; Seizure-like activity R56.9 ; Presence of IVC filter Z95.828 and Elevated liver enzymes R74.8 [place] [address] 71807- 8735 Jun, [place] [address] 30319- 2800 Jun, Hammertoe M20.40 and 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 [place] [address] [id number] [place] [address] 79238- 7984 Jun, Elevated liver enzymes R74.8 [place] [address] 76613- 1588 Jun, Elevated liver enzymes R74.8 [place] [address] [id number] [place] [address] 07468- 8914 30 May, 2015 Elevated liver enzymes R74.8 [place] [id number] [place] [address] 67430- 8332 May, Hypertension 401.9 ; Hirsutism 704.1 and Hypokalemia 276.8 [place] [id number] [place] [address] 05166- 3705 May, Hypertension 401.9 ; Hirsutism 704.1 and Hypokalemia 276.8 [place] [address] 05687- 7993 17 May, 2015 Impingement syndrome of right shoulder 726.2 and SLAP lesion of right shoulder 840.7 [place] [address] [id number] [place] [address] 78697- 8114 May, [place] [address] [address]- 2679 Mar, Decreased sex drive 799.81 and Foot pain, bilateral 729.5 [facility] [address] [place] [address] 04842- 6121 Mar, Impingement syndrome of right shoulder 726.2 [place] [id number] [place] [address] 47216- 7589 Mar, [facility] [id number] [place] [address] [id number] Mar, Dental examination V72.[address] 67863- 5911 Feb, Subacromial bursitis 726.19 [place] [id number] [place] [address] 91592- 8849 Feb, [place] [id number] [place] [address] 56309- 5371 January, [place] [id number] [place] [address] 01007- 0875 January, Muscle spasms of lower extremity 728.85 ; Diabetes mellitus , type II 250.00 ; Hypertension 401.9 ; Neuropathy 355.9 ; Hyperlipidemia LDL goal < 100 272.4 ; Hypothyroidism 244.9 ; Insomnia 780.52 ; History of Guillain- [place] syndrome V12.49 ; Acid reflux disease 530.81 ; Presence of IVC filter V45.89 and Anxiety 300.00 IMMUNIZATIONS No Known Immunizations SOCIAL HISTORY Never Assessed REASON FOR VISIT f/u PLAN OF CARE Activity Details Follow Up Next available Reason: VITAL SIGNS MEDICATIONS Unknown Medications RESULTS No Results PROCEDURES Procedure Date Ordered Result Body Site [facility] VISIT MENTAL HEALTH ESTAB PT May 05, 2018 Psychotherapy, patient &/family, 30 minutes, established patient May 05, 2018 INSTRUCTIONS MEDICATIONS ADMINISTERED No Known Medications [...]
--- OUTSIDE RECORDS SUMMARY | 2018-10-08 05:56 | XMS REPORT ---
Author Author LADONNA DOE Organization [facility] Address [address] [place] [address] Care Team Providers Care Diaper Folder Name Role Phone SANDY DOETA Unavailable PROBLEMS Type Condition ICD9-CM Code HKC64-II Code Onset Dates Condition Status SNOMED Code Problem Chronic prescription benzodiazepine use Z79.899 Active 225811291 Problem Delayed gastric emptying K30 Active 350255313 Problem Hypothyroidism, unspecified hypothyroidism type E03.9 Active 54079006 Problem Presence of IVC filter Z95.828 Active 593004786 Problem Leukocytosis, unspecified type D72.829 Active 657739014 Problem 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 788971517917995 Problem Morbid obesity due to excess calories E66.01 Active 516542000 Problem Gastroesophageal reflux disease, esophagitis presence not specified K21.9 Active 121858249 Problem Fatty liver K76.0 Active 140423624 Problem Constipation by delayed colonic transit K59.01 Active 93679571 Problem Type 2 diabetes mellitus with foot ulcer E11.621 Active 431458775357011 Problem Personality disorder, unspecified F60.9 Active 40162153 Problem Dysthymic disorder F34.1 Active 85767499 Problem Hirsutism L68.0 Active 817667646 Problem Essential hypertension I10 Active 46505702 Problem Anxiety F41.9 Active 72443311 Problem Non-pressure chronic ulcer of other part of right foot limited to breakdown of skin L97.511 Active 918105271 Problem Non-pressure chronic ulcer of other part of left foot limited to breakdown of skin L97.521 Active 475588204 Problem Tinnitus of both ears H93.13 Active 1896149384082 Problem Sensorineural hearing loss (SNHL) of both ears H90.3 Active 933417699 Problem Type 2 diabetes mellitus with diabetic polyneuropathy E11.42 Active 331914740 Problem 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 Active 572308545 Problem Primary insomnia F51.01 Active 056888014 Problem Mixed hyperlipidemia E78.2 Active 442798862 Problem DM neuro manif type II E11.49 Active 82247979 Problem Periodic limb movement sleep disorder G47.61 Active 813303763 Problem Type II or unspecified type diabetes mellitus with neurological manifestations, not stated as uncontrolled E11.49 Active 48543996 Problem Elevated ALT measurement R74.0 Active 446088450 ALLERGIES No Information ENCOUNTERS Encounter Location Date Diagnosis [place] [address] [address] Jun, [facility] [address] [address] 18 May, 2018 [place] [address] [address]- [address] May, Dysthymic disorder F34.1 and Personality disorder, unspecified F60.9 [place] [address] 0[address]88- 9405 Apr, Right arm pain M79.601 [facility] [address] [address]- [address] Apr, [place] [address] 535[address]- 3942 Apr, Dysthymic disorder F34.1 and Anxiety F41.9 [place] [address] 7[address]- 8762 Mar, Acute pain of right knee M25.561 [facility] [address] 6[address]- 8383 Mar, [facility] [address] 466[address]- 5848 Mar, Acute pain of right knee M25.561 [facility] [address] [place] [id number] [place] [address] 20095- 4096 09 Mar, 2018 Type 2 diabetes mellitus with diabetic polyneuropathy E11.42 [facility] [address] [id number] Mar, Dental examination Z01.20 [facility] [id number] [place] [address] 35911- 4076 Mar, Dysthymic disorder F34.1 and Anxiety F41.9 [facility] [id number] [place] [address] 44536- 8074 Feb, [facility] [address] [place] [id number] [place] [address] 73547- 3406 Feb, [facility] [address] [place] [id number] [place] [address] 13110- 1904 Feb, Dental examination Z01.20 [facility] [address] [place] [id number] [place] [address] 93340- 2185 Feb, [facility] [address] [place] [id number] [place] [address] 58574 -1234 Feb, Rib pain on left side R07.81 [facility] [address] [place] [id number] [place] [address] 50754- 4522 Feb, [facility] [address] [place] [id number] [place] [address] 85438- 4040 Feb, [facility] [address] [place] [id number] [place] [address] 86043- 5650 January, [facility] [address] [place] [address] [phone] January, Dental examination Z01.20 [facility] [address] [place] [address] [phone] January, Dental caries K02.9 [facility] [address] [place] [id number] [place] [address] 89985- 5078 January, Type 2 diabetes mellitus with foot ulcer E11.621 ; Flexion deformity of finger joint of left hand M21.242 ; Chronic cough R05 ; Tinnitus of both ears H93.13 ; Sensorineural hearing loss (SNHL) of both ears H90.3 and Leukocytosis, unspecified type D72.829 [place] [address] [place] [address] 37337- 9482 January, [facility] [address] [place] [id number] [place] [address] [phone] Dec, Dental examination Z01.20 [place] [address] [place] [id number] [place] [address] 95706- 7152 Dec, Medicare annual wellness visit, initial Z00.00 ; DM neuro manif type II E11.49 ; Morbid obesity due to excess calories E66.01 ; Essential hypertension I10 ; Anxiety F41.9 ; 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 ; Encounter for immunization Z23 ; Cough R05 and 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 [place] [address] [place] [id number] [place] [address] 07120- 7974 16 Dec, 2017 Cough R05 [place] [address] [place] [id number] [place] [address] 09952- 5862 15 Nov, 2017 [place] [address] [place] [id number] [place] [address] 20722- 8894 05 Nov, 2017 Screening for breast cancer Z12.31 [place] [address] [place] [id number] [place] [address] 57020- 9253 12 Oct, 2017 [place] [address] [place] [id number] [place] [address] 45684- 7336 Oct, [place] [address] [place] [id number] [place] [address] 67884- 7472 07 Oct, 2017 Type 2 diabetes mellitus [...] limited to breakdown of skin L97.521 [facility] [address] [address] 58[address] Sep, [facility] [address] [place] [id number] [place] [address] 71790- 4117 Sep, [facility] [address] [place] [id number] [address] 5[address] Aug, 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 [facility] [address] [place] [id number] [place] [address] 31035- 0658 Jul, [facility] [address] [place] [id number] [place] [address] 95511- 9043 May, Type 2 diabetes mellitus with diabetic polyneuropathy E11.42 [facility] [address] [place] [id number] [address] 4[address] May, [facility] [address] [place] [id number] [place] [address] 73556- 4560 May, [facility] [address] [place] [id number] [address] 9936 Apr, Type 2 diabetes mellitus with diabetic polyneuropathy E11.42 and Morbid obesity due to excess calories E66.01 [facility] [address] [address]- 86[address] Apr, [facility] [address] [place] [id number] [address]- 3211 Apr, Type 2 diabetes mellitus with diabetic polyneuropathy E11.42 [facility] [address] [address] Apr, [facility] [address] [place] [id number] [place] [address] 71706- 7679 Mar, [facility] [address] [address]- 7908 Mar, [facility] [address] [address]- 9382 Mar, [facility] [address] [place] [id number] [place] [address] 15213- 5217 Mar, Type 2 diabetes mellitus with diabetic polyneuropathy E11.42 [facility] [address] [address]- 7275 Feb, [facility] [address] [place] [id number] [place] [address] 60306- 5611 Feb, [facility] [address] [place] [address] 43494- 1490 Feb, Type 2 diabetes mellitus with diabetic polyneuropathy E11.42 ; Preoperative examination Z01.818 ; Wound, open, foot, left, initial encounter S91.302A ; Weight loss R63.4 and Tobacco abuse Z72.0 [facility] [address] [place] [id number] [place] [address] 57519- 8661 Nov, [facility] [address] [place] [id number] [place] [address] 61555- 1525 Nov, Pelvic pain R10.2 [facility] [address] [place] [id number] [place] [address] 08490- 9109 Nov, Morbid obesity due to excess calories E66.01 [facility] [address] [address]- 6442 Nov, [facility] [address] [address]- 6862 Nov, [facility] [address] [address]- 3587 Nov, [facility] [address] [place] [id number] [place] [address] 37358- 0087 Nov, [facility] [address] [address]- 0635 Oct, [facility] [address] [place] [id number] [place] [address] 28871- 2287 Oct, [place] [address] [place] [id number] [place] [address] 01241- 0331 Oct, Well woman exam Z01.419 ; Pelvic pain R10.2 and Type 2 diabetes mellitus with diabetic polyneuropathy E11.42 [place] [address] [place] [id number] [place] [address] 73053- 1592 Oct, 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 [place] [address] [place] [id number] [place] [address] 88834- 1163 Sep, Essential hypertension I10 ; Mixed hyperlipidemia E78.2 ; Leukocytosis, unspecified type D72.829 and Morbid obesity due to excess calories E66.01 [place] [address] [place] [id number] [place] [address] 86606- 3704 Sep, [place] [address] [place] [id number] [place] [address] 81507- 4630 Aug, Hypothyroidism, unspecified hypothyroidism type E03.9 [place] [address] [place] [id number] [place] [address] 26769- 1832 Aug, Hirsutism L68.0 ; Primary insomnia F51.01 ; BMI 37.0-37.9, adult Z68.37 and Gastroesophageal reflux disease, esophagitis presence not specified K21.9 [place] [address] [place] [id number] [place] [address] 42776- 5605 Jul, [place] [address] [place] [id number] [place] [address] 42676- 8812 Jun, [place] [address] 73780- 3750 Jun, [place] [address] [place] [id number] [place] [address] 44754- 2369 Jun, Hypothyroidism, unspecified hypothyroidism type E03.9 [place] [address] [place] [id number] [place] [address] 06942- 5612 Jun, Type 2 diabetes mellitus with diabetic polyneuropathy E11.42 ; Fatty liver K76.0 ; Leukocytosis, unspecified type D72.829 ; Morbid obesity due to excess calories E66.01 ; Hypotension due to drugs I95.2 ; Non- intractable vomiting with nausea, unspecified vomiting type R11.2 and Mixed hyperlipidemia E78.[address] 114[address]- 7716 Jun, [place] [address] 96087- 3505 Apr, [place] [address] 14912- 1403 Apr, [place] [address] 66733- 8589 Mar, Eustachian tube dysfunction, bilateral H69.[address] 85997- 9257 Mar, [place] [address] 75196- 6952 Feb, [address] 69464- 1139 Feb, Type 2 diabetes mellitus with diabetic polyneuropathy E11.42 ; Periodic limb movement sleep disorder G47.61 ; Hirsutism L68.0 ; Leukocytosis, unspecified type D72.829 and Postural dizziness R42 [place] [address] [place] [id number] [place] [address] 68506- 6329 Dec, Onychomycosis B35.1 and Foot ulcer L97.[address] 43526- 8324 Nov, [place] [address] 93953- 0370 Nov, Preoperative cardiovascular examination Z01.810 ; Type 2 diabetes mellitus with diabetic polyneuropathy E11.42 and Essential hypertension I10 [place] [address] [place] [address] 07491- 0381 12 Oct, 2015 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 ; Hammertoe M20.40 and DM neuro manif type II E11.49 [place] [address] [place] [address] 77184- 4345 11 Oct, 2015 Impingement syndrome of right shoulder M75.41 [place] [address] [place] [id number] [place] [address] 77529- 7818 Sep, [place] [address] [place] [id number] [place] [address] 01917- 9942 Sep, [place] [address] [place] [id number] [place] [address] 14715- 0298 14 Sep, 2015 Leukocytosis, unspecified elevated WBC count D72.829 [place] [address] [place] [id number] [place] [address] 58083- 4494 Sep, Leukocytosis, unspecified elevated WBC count D72.829 [place] [address] [place] [id number] [place] [address] 17069- 6295 Sep, [place] [address] [place] [id number] [place] [address] 21170- 2436 Sep, [place] [address] [place] [id number] [place] [address] 92981- 6085 Sep, [place] [address] [place] [id number] [place] [address] 10219- 0593 Sep, Periodic limb movement sleep disorder G47.61 ; Leukocytosis , unspecified elevated WBC count D72.829 and Mixed hyperlipidemia E78.2 [place] [address] [place] [id number] [place] [address] 89312- 8160 Sep, Periodic limb movement sleep disorder G47.61 [place] [address] [address]- 9916 Aug, [place] [address] 91360- 4708 Aug, Type 2 diabetes mellitus with diabetic polyneuropathy E11.42 ; 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 and Major depressive disorder , recurrent episode, mild F33.0 [place] [address] 46648- 9457 Aug, Impingement syndrome of right shoulder M75.41 [place] [address] 24462- 9085 Aug, Shortness of breath R06.02 [place] [address] 10197- 5397 Aug, [place] [address] 63748- 6205 Aug, 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 and Type II or unspecified type diabetes mellitus with neurological manifestations, not stated as uncontrolled E11.49 [place] [address] 98151- 9973 Aug, [place] [address] 85890- 2753 Jul, Presence of IVC filter Z95.828 [place] [address] 34004- 6198 Jul, Rotator cuff tear, right M75.101 [place] [address] 83175- 4485 Jul, [place] [address] 82965- 6741 Jul, [place] [address] 66107- 6257 Jul, [place] [address] 31277- 3826 Jun, Leukocytosis, unspecified elevated WBC count D72.829 and Mixed hyperlipidemia E78.2 [place] [address] [place] [id number] [place] [address] 25049- 4391 Jun, Type 2 diabetes mellitus with diabetic polyneuropathy E11.42 ; Hypothyroidism, unspecified hypothyroidism type E03.9 ; Elevated ALT measurement R74.0 ; Mixed hyperlipidemia E78.2 ; Primary insomnia F51.01 ; Seizure-like activity R56.9 ; Presence of IVC filter Z95.828 and Elevated liver enzymes R74.8 [place] [address] [place] [id number] [place] [address] 97106- 9811 Jun, [place] [address] [place] [id number] [place] [address] 83557- 3531 Jun, Hammertoe M20.40 and 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 [place] [address] [place] [id number] [place] [address] 26177- 5724 Jun, Elevated liver enzymes R74.8 [place] [address] [place] [id number] [place] [address] 98612- 9037 Jun, Elevated liver enzymes R74.8 [place] [address] [place] [id number] [place] [address] 00816- 8860 May, Elevated liver enzymes R74.8 [place] [address] [place] [address] [place] [address] 11797- 2706 May, Hypertension 401.9 ; Hirsutism 704.1 and Hypokalemia 276.8 [place] [address] [place] [id number] [place] [address] 37367- 1335 May, Hypertension 401.9 ; Hirsutism 704.1 and Hypokalemia 276.8 [place] [address] [place] [id number] [place] [address] 14643- 7494 17 May, 2015 Impingement syndrome of right shoulder 726.2 and SLAP lesion of right shoulder 840.7 [place] [address] [place] [id number] [place] [address] 68190- 8550 May, [place] [address] [address]- 8169 Mar, Decreased sex drive 799.81 and Foot pain, bilateral 729.5 [place] [address] [place] [address] 40083- 2149 Mar, Impingement syndrome of right shoulder 726.2 [place] [address] [place] [id number] [place] [address] 25096- 3370 Mar, [facility] [address] [place] [id number] [place] [address] [id number] Mar, Dental examination V72.[address] 69782- 5357 11 Feb, 2015 Subacromial bursitis 726.19 [place] [address] [place] [id number] [place] [address] 89589- 0463 Feb, [place] [address] [place] [id number] [place] [address] 24001- 2205 January, [place] [address] [place] [id number] [place] [address] 51964- 0726 January, Muscle spasms of lower extremity 728.85 ; Diabetes mellitus , type II 250.00 ; Hypertension 401.9 ; Neuropathy 355.9 ; Hyperlipidemia LDL goal < 100 272.4 ; Hypothyroidism 244.9 ; Insomnia 780.52 ; History of Guillain- Chinook syndrome V12.49 ; Acid reflux disease 530.81 ; Presence of IVC filter V45.89 and Anxiety 300.00 IMMUNIZATIONS No Known Immunizations SOCIAL HISTORY Never Assessed REASON FOR VISIT Xray (walk-in) PLAN OF CARE VITAL SIGNS MEDICATIONS Unknown Medications RESULTS Name Result Date Reference Range Xray : Knee, Right 3 views (IN HOUSE) 2018-04-14 PROCEDURES Procedure Date Ordered Result Body Site X-RAY EXAM OF KNEE, 3 April 14, 2018 INSTRUCTIONS MEDICATIONS ADMINISTERED No Known Medications [...]
--- OUTSIDE RECORDS SUMMARY | 2018-10-08 05:56 | XMS REPORT ---
Author Author ASPEN GEO Organization 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 Active 065765980962632 Problem Morbid obesity due to excess calories E66.01 Active 478423922 Problem Gastroesophageal reflux disease, esophagitis presence not specified K21.9 Active 707442535 Problem Fatty liver K76.0 Active 575824321 Problem Constipation by delayed colonic transit K59.01 Active 29829009 Problem Type 2 diabetes mellitus with foot ulcer E11.621 Active 279092062345022 Problem Personality disorder, unspecified F60.9 Active 33521509 Problem Dysthymic disorder F34.1 Active 59728687 Problem Hirsutism L68.0 Active 349216766 Problem Essential hypertension I10 Active 28694952 Problem Anxiety F41.9 Active 82946754 Problem Non-pressure chronic ulcer of other part of right foot limited to breakdown of skin L97.511 Active 271638915 Problem Non-pressure chronic ulcer of other part of left foot limited to breakdown of skin L97.521 Active 748984080 Problem Tinnitus of both ears H93.13 Active 4836141254848 Problem Sensorineural hearing loss (SNHL) of both ears H90.3 Active 553193752 Problem Type 2 diabetes mellitus with diabetic polyneuropathy E11.42 Active 778798273 Problem 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 Active 245740212 Problem Primary insomnia F51.01 Active 282631180 Problem Mixed hyperlipidemia E78.2 Active 232726387 Problem DM neuro manif type II E11.49 Active 70088301 Problem Periodic limb movement sleep disorder G47.61 Active 324979616 Problem Type II or unspecified type diabetes mellitus with neurological manifestations, not stated as uncontrolled E11.49 Active 57589778 Problem Elevated ALT measurement R74.0 Active 432991054 ALLERGIES No Information ENCOUNTERS Encounter Location Date Diagnosis [place] [address] [address]- [address]851 Jun, [place] [address] 73862- 1497 18 May, 2018 [place] [address] 66989- 9456 May, Dysthymic disorder F34.1 and Personality disorder, unspecified F60.9 [place] [address] 13485- 9216 Apr, Right arm pain M79.601 [place] [address] 48344- 6419 Apr, [place] [address] 54496- 9278 Apr, Dysthymic disorder F34.1 and Anxiety F41.9 [place] [address] 56242- 4714 Mar, Acute pain of right knee M25.561 [facility] [address] [place] [id number] [place] [address] 62369- 8385 Mar, [facility] [address] 54537- 6344 Mar, Acute pain of right knee M25.561 [facility] [address] [place] [id number] [place] [address] 41970- 9683 09 Mar, 2018 Type 2 diabetes mellitus with diabetic polyneuropathy E11.42 [facility] [address] [place] [id number] Mar, Dental examination Z01.20 [facility] [address] [place] [id number] [place] [address] 560407- 3276 Mar, Dysthymic disorder F34.1 and Anxiety F41.9 [facility] [id number] [place] [address] 66594- 9894 Feb, [facility] [address] [place] [id number] [place] [address] 89017- 7240 Feb, [facility] [address] [place] [id number] [place] [address] 78960- 0313 Feb, Dental examination Z01.20 [facility] [address] [place] [id number] [place] [address] 94223- 5774 Feb, [facility] [address] [place] [id number] [place] [address] 37061 -7698 Feb, Rib pain on left side R07.81 [facility] [address] [place] [id number] [place] [address] 41982- 1062 Feb, [facility] [address] [place] [id number] [place] [address] 94545- 1896 Feb, [facility] [id number] [place] [address] 84644- 1066 January, [facility] [address] [id number] January, Dental examination Z01.20 [facility] [address] [place] [id number] [id number] January, Dental caries K02.9 [facility] [address] [place] [id number] [place] [address] [phone]- 6405 January, Type 2 diabetes mellitus with foot ulcer E11.621 ; Flexion deformity of finger joint of left hand M21.242 ; Chronic cough R05 ; Tinnitus of both ears H93.13 ; Sensorineural hearing loss (SNHL) of both ears H90.3 and Leukocytosis, unspecified type D72.829 [place] [id number] [place] [address] 79796- 0767 January, [facility] [id number] [place] [address] [id number] Dec, Dental examination Z01.20 [place] [address] [place] [id number] [place] [address] 05524- 8614 Dec, Medicare annual wellness visit, initial Z00.00 ; DM neuro manif type II E11.49 ; Morbid obesity due to excess calories E66.01 ; Essential hypertension I10 ; Anxiety F41.9 ; 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 ; Encounter for immunization Z23 ; Cough R05 and 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 [place] [address] [place] [id number] [place] [address] 36500- 5833 16 Dec, 2017 Cough R05 [place] [address] 11599- 3876 15 Nov, 2017 [place] [address] [place] [id number] [place] [address] 26816- 8035 05 Nov, 2017 Screening for breast cancer Z12.31 [place] [address] [place] [id number] [place] [address] 87001- 1267 12 Oct, 2017 [place] [address] [place] [id number] [place] [address] 15472- 6099 Oct, [place] [address] [place] [id number] [place] [address] 87741- 4742 07 Oct, 2017 Type 2 diabetes mellitus [...] foot limited to breakdown of skin L97.521 [facility] [address] [place] [id number] [place] [address] 17332- 9169 Sep, [facility] [address] [place] [id number] [place] [address] 64490- 5720 Sep, 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 [address] [place] [id number] [place] [address] 77382- 4910 Jul, [facility] [address] [place] [id number] [place] [address] 15080- 1890 May, Type 2 diabetes mellitus with diabetic polyneuropathy E11.42 [facility] [address] [place] [id number] [place] [address] 64293- 3152 May, [facility] [address] [place] [id number] [place] [address] 36978- 7751 May, [facility] [address] [place] [id number] [place] [address] 07635- 7322 Apr, Type 2 diabetes mellitus with diabetic polyneuropathy E11.42 and Morbid obesity due to excess calories E66.01 [facility] [address] [place] [id number] [address]- 7316 Apr, [facility] [address] [place] [id number] [place] [address] 06891- 8546 Apr, Type 2 diabetes mellitus with diabetic polyneuropathy E11.42 [facility] [address] [place] [id number] [address] Apr, [facility] [address] [place] [id number] [place] [address] 68769- 7248 Mar, [facility] [address] [place] [id number] [place] [address] 85678- 6523 Mar, [facility] [address] [address]- 8466 Mar, [facility] [id number] [place] [address] 64322- 8863 Mar, Type 2 diabetes mellitus with diabetic polyneuropathy E11.42 [facility] [address] [address]- 8910 Feb, [facility] [address] [place] [id number] [place] [address] 69990- 6223 Feb, [facility] [address] [place] [address] 48218- 6828 Feb, Type 2 diabetes mellitus with diabetic polyneuropathy E11.42 ; Preoperative examination Z01.818 ; Wound, open, foot, left, initial encounter S91.302A ; Weight loss R63.4 and Tobacco abuse Z72.0 [facility] [address] [place] [address] 90454- 5701 Nov, [facility] [id number] [place] [address] 20904- 5232 Nov, Pelvic pain R10.2 [facility] [address] [place] [address] 84411- 7635 Nov, Morbid obesity due to excess calories E66.01 [facility] [address] [address]- 6115 Nov, [facility] [address], [place] [address]- 3540 Nov, [facility] [address] [address]- 6747 Nov, [facility] [address] [address]- 7413 Nov, [facility] [address] [address]- 0402 Oct, 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9, adult Z68.37 and Gastroesophageal reflux disease, esophagitis presence not specified K21.9 [place] [address] [place] [id number] [place] [address] 12375- 9481 Jul, [place] [address] [place] [id number] [place] [address] 22089- 9763 Jun, [place] [address] 62644- 3712 Jun, [place] [address] [place] [id number] [place] [address] 31934- 1661 Jun, Hypothyroidism, unspecified hypothyroidism type E03.9 [place] [address] 32054- 7214 Jun, Type 2 diabetes mellitus with diabetic polyneuropathy E11.42 ; Fatty liver K76.0 ; Leukocytosis, unspecified type D72.829 ; Morbid obesity due to excess calories E66.01 ; Hypotension due to drugs I95.2 ; Non- intractable vomiting with nausea, unspecified vomiting type R11.2 and Mixed hyperlipidemia E78.2 [place] [address] [place] [id number] [place] [address] 74637- 9998 Jun, [place] [address] 94371- 1946 Apr, [place] [address] 29227- 0995 Apr, [place] [address] [place] [id number] [place] [address] 21446- 4312 Mar, Eustachian tube dysfunction, bilateral H69.83 [place] [address] 61655- 6751 Mar, [place] [address] [place] [id number] [place] [address] 02647- 7911 Feb, [place] [address] [place] [id number] [place] [address] 04691- 8726 Feb, Type 2 diabetes mellitus with diabetic polyneuropathy E11.42 ; Periodic limb movement sleep disorder G47.61 ; Hirsutism L68.0 ; Leukocytosis, unspecified type D72.829 and Postural dizziness R42 [place] [address] [place] [id number] [place] [address] 91583- 0643 Dec, Onychomycosis B35.1 and Foot ulcer L97.509 [place] [address] [place] [id number] [place] [address] 34696- 0540 Nov, [place] [address] [place] [id number] [place] [address] 63307- 1321 Nov, Preoperative cardiovascular examination Z01.810 ; Type 2 diabetes mellitus with diabetic polyneuropathy E11.42 and Essential hypertension I10 [place] [address] [place] [id number] [place] [address] 74917- 4234 12 Oct, 2015 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 ; Hammertoe M20.40 and DM neuro manif type II E11.49 [place] [address] [place] [id number] [place] [address] 56278- 4997 11 Oct, 2015 Impingement syndrome of right shoulder M75.41 [place] [address] 34292- 1592 Sep, [place] [address] 17986- 5366 Sep, [place] [address] 52479- 3512 Sep, Leukocytosis, unspecified elevated WBC count D72.829 [place] [address] 26449- 0049 Sep, Leukocytosis, unspecified elevated WBC count D72.829 [place] [address] [place] [id number] [place] [address] 12255- 0656 Sep, [place] [address] [place] [id number] [place] [address] 31850- 7502 Sep, [place] [address] [place] [id number] [place] [address] 20272- 5036 Sep, [place] [address] [place] [id number] [place] [address] 14514- 9072 Sep, Periodic limb movement sleep disorder G47.61 ; Leukocytosis , unspecified elevated WBC count D72.829 and Mixed hyperlipidemia E78.2 [place] [address] [place] [id number] [place] [address] 15559- 2016 Sep, Periodic limb movement sleep disorder G47.61 [place] [address] [place] [id number] [place] [address] 17729- 6616 Aug, [place] [address] 84173- 7169 Aug, Type 2 diabetes mellitus with diabetic polyneuropathy E11.42 ; 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 and Major depressive disorder , recurrent episode, mild F33.0 [place] [address] 11331- 1700 Aug, Impingement syndrome of right shoulder M75.41 [place] [address] 84235- 6042 Aug, Shortness of breath R06.02 [place] [address] 00043- 0450 Aug, [place] [address] 91432- 9072 Aug, 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 and Type II or unspecified type diabetes mellitus with neurological manifestations, not stated as uncontrolled E11.49 [place] [address] 76017- 4267 Aug, [place] [address] 44503- 6149 Jul, Presence of IVC filter Z95.828 [place] [address] 41769- 5549 Jul, Rotator cuff tear, right M75.101 [place] [address] 30051- 0190 Jul, [place] [address] 70063- 7447 Jul, [place] [address] 88776- 9705 Jul, [place] [address] 60824- 2056 Jun, Leukocytosis, unspecified elevated WBC count D72.829 and Mixed hyperlipidemia E78.2 [place] [address] [place] [id number] [place] [address] 15865- 6245 Jun, Type 2 diabetes mellitus with diabetic polyneuropathy E11.42 ; Hypothyroidism, unspecified hypothyroidism type E03.9 ; Elevated ALT measurement R74.0 ; Mixed hyperlipidemia E78.2 ; Primary insomnia F51.01 ; Seizure-like activity R56.9 ; Presence of IVC filter Z95.828 and Elevated liver enzymes R74.8 [place] [address] 49489- 3968 Jun, [place] [address] 52686- 2867 Jun, Hammertoe M20.40 and 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 [place] [address] 98501- 9191 Jun, Elevated liver enzymes R74.8 [place] [address] 40476- 3032 Jun, Elevated liver enzymes R74.8 [place] [address] 16345- 0269 May, Elevated liver enzymes R74.8 [place] [address] 94431- 4245 28 May, 2015 Hypertension 401.9 ; Hirsutism 704.1 and Hypokalemia 276.8 [place] [address] [place] [id number] [place] [address] 29292- 0276 May, Hypertension 401.9 ; Hirsutism 704.1 and Hypokalemia 276.8 [place] [address] 08609- 5612 17 May, 2015 Impingement syndrome of right shoulder 726.2 and SLAP lesion of right shoulder 840.7 [place] [address] [place] [id number] [place] [address] 86999- 9242 11 May, 2015 [place] [address] [address]- 6604 Mar, Decreased sex drive 799.81 and Foot pain, bilateral 729.5 [place] [address] [place] [address] 61112- 6149 Mar, Impingement syndrome of right shoulder 726.2 [place] [address] [place] [id number] [place] [address] 34267- 0123 Mar, [facility] [address] [place] [id number] [place] [address] [phone] Mar, Dental examination V72.[address] 68083- 9103 Feb, Subacromial bursitis 726.19 [place] [address] [place] [id number] [place] [address] 09200- 6374 Feb, [place] [id number] [place] [address] 83360- 9659 January, [place] [id number] [place] [address] 73426- 7549 January, Muscle spasms of lower extremity 728.85 ; Diabetes mellitus , type II 250.00 ; Hypertension 401.9 ; Neuropathy 355.9 ; Hyperlipidemia LDL goal < 100 272.4 ; Hypothyroidism 244.9 ; Insomnia 780.52 ; History of Guillain- Evergreen syndrome V12.49 ; Acid reflux disease 530.81 [...]
--- OUTSIDE RECORDS SUMMARY | 2018-10-08 05:57 | XMS REPORT ---
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 Name Role Phone SORIN ALCANTAR Unavailable PROBLEMS Type Condition ICD9-CM Code DQJ48-EO Code Onset Dates Condition Status SNOMED Code Problem Chronic prescription benzodiazepine use Z79.899 Active 409065150 Problem Delayed gastric emptying K30 Active 928336407 Problem Hypothyroidism, unspecified hypothyroidism type E03.9 Active 43304675 Problem Presence of IVC filter Z95.828 Active 168690151 Problem Leukocytosis, unspecified type D72.829 Active 379494295 Problem 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 Active 233159829444417 Problem Morbid obesity due to excess calories E66.01 Active 651512338 Problem Gastroesophageal reflux disease, esophagitis presence not specified K21.9 Active 398771619 Problem Fatty liver K76.0 Active 708137074 Problem Constipation by delayed colonic transit K59.01 Active 11228098 Problem Type 2 diabetes mellitus with foot ulcer E11.621 Active 833179816469721 Problem Personality disorder, unspecified F60.9 Active 60084359 Problem Dysthymic disorder F34.1 Active 50591003 Problem Hirsutism L68.0 Active 154406870 Problem Essential hypertension I10 Active 06946391 Problem Anxiety F41.9 Active 59110810 Problem Non-pressure chronic ulcer of other part of right foot limited to breakdown of skin L97.511 Active 209078447 Problem Non-pressure chronic ulcer of other part of left foot limited to breakdown of skin L97.521 Active 337163323 Problem Tinnitus of both ears H93.13 Active 9273647832273 Problem Sensorineural hearing loss (SNHL) of both ears H90.3 Active 179689347 Problem Type 2 diabetes mellitus with diabetic polyneuropathy E11.42 Active 575337298 Problem 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 Active 786319403 Problem Primary insomnia F51.01 Active 969268726 Problem Mixed hyperlipidemia E78.2 Active 218995824 Problem DM neuro manif type II E11.49 Active 17198344 Problem Periodic limb movement sleep disorder G47.61 Active 990721022 Problem Type II or unspecified type diabetes mellitus with neurological manifestations, not stated as uncontrolled E11.49 Active 54093942 Problem Elevated ALT measurement R74.0 Active 270447314 ALLERGIES No Known Allergies ENCOUNTERS Encounter Location Date Diagnosis [place] [address] [address] Jun, [facility] [address] [address]- [address] May, [place] [address] 651206- 3697 May, Dysthymic disorder F34.1 and Personality disorder, unspecified F60.9 [place] [address] 98800- 6842 Apr, Right arm pain M79.601 [place] [address] 47135- 8781 Apr, [place] [address] 08350- 4940 Apr, Dysthymic disorder F34.1 and Anxiety F41.9 [place] [address] 43526- 5895 Mar, Acute pain of right knee M25.561 [place] [address] 36242- 7137 Mar, [facility] [address] [place] [id number] [place] [address] 58484- 6269 Mar, Acute pain of right knee M25.561 [facility] [address] [place] [id number] [place] [address] 02279- 1330 Mar, Type 2 diabetes mellitus with diabetic polyneuropathy E11.42 [facility] [address] [place] [id number] [place] [address] [id number] Mar, Dental examination Z01.20 [facility] [id number] [place] [address] 43252- 4763 Mar, Dysthymic disorder F34.1 and Anxiety F41.9 [facility] [address] [place] [id number] [place] [address] 39774- 2765 Feb, [facility] [address] [place] [id number] [place] [address] 17992- 1800 Feb, [facility] [address] [place] [id number] [place] [address] 82250- 8218 Feb, Dental examination Z01.20 [place] [address] [place] [id number] [place] [address] 14946- 1330 Feb, [facility] [address] [place] [id number] [place] [address] 59772 -5545 Feb, Rib pain on left side R07.81 [facility] [address] [place] [id number] [place] [address] 46658- 5746 Feb, [facility] [address] [place] [id number] [place] [address] 28321- 4826 Feb, [place] [address] [place] [id number] [place] [address] 66823- 8136 January, [facility] [id number] [place] [address] [id number] January, Dental examination Z01.20 [facility] [address] [place] [id number] [place] [address] [id number] January, Dental caries K02.9 [facility] [address] [place] [id number] [place] [address] 15356- 6749 January, Type 2 diabetes mellitus with foot ulcer E11.621 ; Flexion deformity of finger joint of left hand M21.242 ; Chronic cough R05 ; Tinnitus of both ears H93.13 ; Sensorineural hearing loss (SNHL) of both ears H90.3 and Leukocytosis, unspecified type D72.829 [place] [id number] [place] [address] 62782- 7723 January, [facility] [id number] [place] [address] [phone] Dec, Dental examination Z01.20 [place] [address] [place] [id number] [place] [address] 93273- 8100 Dec, Medicare annual wellness visit, initial Z00.00 ; DM neuro manif type II E11.49 ; Morbid obesity due to excess calories E66.01 ; Essential hypertension I10 ; Anxiety F41.9 ; 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 ; Encounter for immunization Z23 ; Cough R05 and 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 [place] [address] [place] [id number] [place] [address] 77873- 4568 16 Dec, 2017 Cough R05 [place] [address] [place] [id number] [place] [address] 13298- 8072 15 Nov, 2017 [place] [address] [place] [id number] [place] [address] 90486- 4417 05 Nov, 2017 Screening for breast cancer Z12.31 [place] [address] [place] [id number] [place] [address] 38458- 9049 12 Oct, 2017 [place] [address] [place] [id number] [place] [address] 10229- 7704 Oct, [place] [address] [place] [id number] [place] [address] 34862- 6085 07 Oct, 2017 Type 2 diabetes mellitus [...] breakdown of skin L97.521 [facility] [address] [address] Sep, [facility] [address] [place] [id number] [place] [address] 60297- 9310 Sep, [facility] [address] [place] [id number] [place] [address] 22662- 0547 Aug, 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 [facility] [address] [place] [id number] [place] [address] 48372- 9061 Jul, [facility] [address] [place] [id number] [place] [address] 16453- 0687 May, Type 2 diabetes mellitus with diabetic polyneuropathy E11.42 [facility] [address] [place] [id number] [place] [address] 92035- 0427 May, [facility] [address] [place] [id number] [place] [address] 67525- 4777 May, [facility] [address] [place] [id number] [place] [address] 58120- 2546 Apr, Type 2 diabetes mellitus with diabetic polyneuropathy E11.42 and Morbid obesity due to excess calories E66.01 [facility] [address] [address]- 1468 Apr, [facility] [id number] [place] [address] 55834- 5475 Apr, Type 2 diabetes mellitus with diabetic polyneuropathy E11.42 [facility] [address] [address] Apr, [facility] [address] [place] [id number] [place] [address] 54288- 8916 Mar, [facility] [address] [address]- 0438 Mar, [facility] [address] [place] [id number] [place] [address] 85173- 8953 Mar, [facility] [address] [address]- 4705 Mar, Type 2 diabetes mellitus with diabetic polyneuropathy E11.42 [facility] [address] [address]- 3936 Feb, [facility] [address] [address]- 9[address] Feb, [facility] [address] [address]- 1496 Feb, Type 2 diabetes mellitus with diabetic polyneuropathy E11.42 ; Preoperative examination Z01.818 ; Wound, open, foot, left, initial encounter S91.302A ; Weight loss R63.4 and Tobacco abuse Z72.0 [facility] [address] [address]- 7541 Nov, [facility] [address] [address]- 3244 Nov, Pelvic pain R10.2 [facility] [address] [place] [id number] [place] [address] 87060- 4025 Nov, Morbid obesity due to excess calories E66.01 [facility] [address] [address]- 6210 Nov, [facility] [address] [address]- 5276 Nov, [facility] [address] [address]- 7188 Nov, [facility] [address] [place] [id number] [address]- 1606 Nov, [facility] [address] [address]- 1321 Oct, [facility] [id number] [place] [address] 53060- 5043 Oct, [place] [address] [place] [id number] [place] [address] 29233- 6763 Oct, Well woman exam Z01.419 ; Pelvic pain R10.2 and Type 2 diabetes mellitus with diabetic polyneuropathy E11.42 [place] [address] [place] [id number] [place] [address] 79986- 1248 Oct, 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 [place] [address] 80010- 4691 Sep, Essential hypertension I10 ; Mixed hyperlipidemia E78.2 ; Leukocytosis, unspecified type D72.829 and Morbid obesity due to excess calories E66.01 [place] [address] [place] [id number] [place] [address] 37622- 8282 Sep, [place] [address] 22492- 1582 Aug, Hypothyroidism, unspecified hypothyroidism type E03.9 [place] [address] [place] [id number] [place] [address] 01151- 3076 Aug, Hirsutism L68.0 ; Primary insomnia F51.01 ; BMI 37.0-37.9, adult Z68.37 and Gastroesophageal reflux disease, esophagitis presence not specified K21.9 [place] [address] [place] [id number] [place] [address] 48931- 6518 Jul, [place] [address] [place] [id number] [place] [address] 85026- 7873 Jun, [place] [address] [place] [id number] [place] [address] 60320- 7342 Jun, [place] [address] [place] [id number] [place] [address] 63702- 7372 Jun, Hypothyroidism, unspecified hypothyroidism type E03.9 [place] [address] [place] [id number] [place] [address] 26786- 5935 Jun, Type 2 diabetes mellitus with diabetic polyneuropathy E11.42 ; Fatty liver K76.0 ; Leukocytosis, unspecified type D72.829 ; Morbid obesity due to excess calories E66.01 ; Hypotension due to drugs I95.2 ; Non- intractable vomiting with nausea, unspecified vomiting type R11.2 and Mixed hyperlipidemia E78.2 [place] [address] [place] [id number] [place] [address] 93735- 3116 Jun, [place] [address] 51075- 1890 Apr, [place] [address] 54238- 1857 Apr, [place] [address] 45557- 0629 Mar, Eustachian tube dysfunction, bilateral H69.[address] 25848- 4502 Mar, [place] [address] 23941- 9714 Feb, [address] 44235- 2968 Feb, Type 2 diabetes mellitus with diabetic polyneuropathy E11.42 ; Periodic limb movement sleep disorder G47.61 ; Hirsutism L68.0 ; Leukocytosis, unspecified type D72.829 and Postural dizziness R42 [place] [id number] [place] [address] 26093- 0641 Dec, Onychomycosis B35.1 and Foot ulcer L97.[address] 25938- 4631 Nov, [address] 29083- 1252 Nov, Preoperative cardiovascular examination Z01.810 ; Type 2 diabetes mellitus with diabetic polyneuropathy E11.42 and Essential hypertension I10 [address] [place] [id number] [place] [address] 79551- 6556 12 Oct, 2015 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 ; Hammertoe M20.40 and DM neuro manif type II E11.49 [place] [address] [place] [id number] [place] [address] 74496- 2452 11 Oct, 2015 Impingement syndrome of right shoulder M75.41 [place] [address] 61472- 0103 Sep, [place] [address] 66322- 8047 Sep, [place] [address] [place] [id number] [place] [address] 85343- 2038 Sep, Leukocytosis, unspecified elevated WBC count D72.829 [place] [address] [place] [id number] [place] [address] 64125- 3251 Sep, Leukocytosis, unspecified elevated WBC count D72.829 [place] [address] [place] [id number] [place] [address] 46690- 1005 Sep, [place] [address] [place] [id number] [place] [address] 62782- 2908 Sep, [place] [address] [place] [id number] [place] [address] 26062- 6994 Sep, [place] [address] [place] [id number] [place] [address] 67689- 4010 Sep, Periodic limb movement sleep disorder G47.61 ; Leukocytosis , unspecified elevated WBC count D72.829 and Mixed hyperlipidemia E78.2 [place] [address] [place] [id number] [place] [address] 12131- 0004 Sep, Periodic limb movement sleep disorder G47.61 [place] [address] [place] [id number] [place] [address] 84500- 9941 Aug, [place] [address] [place] [id number] [place] [address] 79454- 4255 Aug, Type 2 diabetes mellitus with diabetic polyneuropathy E11.42 ; 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 and Major depressive disorder , recurrent episode, mild F33.0 [place] [address] [place] [id number] [place] [address] 27921- 8298 Aug, Impingement syndrome of right shoulder M75.41 [place] [address] 69744- 0215 Aug, Shortness of breath R06.02 [place] [address] 17963- 8860 Aug, [place] [address] 26378- 4498 Aug, 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 and Type II or unspecified type diabetes mellitus with neurological manifestations, not stated as uncontrolled E11.49 [place] [address] 43968- 6099 Aug, [place] [address] 33872- 9721 Jul, Presence of IVC filter Z95.828 [place] [address] 10107- 8813 Jul, Rotator cuff tear, right M75.101 [place] [address] 13604- 9938 Jul, [place] [address] 34770- 0237 Jul, [place] [address] 12301- 0716 Jul, [place] [address] 51538- 2037 Jun, Leukocytosis, unspecified elevated WBC count D72.829 and Mixed hyperlipidemia E78.[address] [place] [address]- 1649 Jun, Type 2 diabetes mellitus with diabetic polyneuropathy E11.42 ; Hypothyroidism, unspecified hypothyroidism type E03.9 ; Elevated ALT measurement R74.0 ; Mixed hyperlipidemia E78.2 ; Primary insomnia F51.01 ; Seizure-like activity R56.9 ; Presence of IVC filter Z95.828 and Elevated liver enzymes R74.8 [place] [address] 21967- 8297 Jun, [place] [address] 90977- 0671 Jun, Hammertoe M20.40 and 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 [place] [address] 60005- 5381 Jun, Elevated liver enzymes R74.8 [place] [address] 88835- 2474 Jun, Elevated liver enzymes R74.8 [place] [address] 93612- 4885 30 May, 2015 Elevated liver enzymes R74.8 [place] [address] 97187- 6422 May, Hypertension 401.9 ; Hirsutism 704.1 and Hypokalemia 276.8 [place] [address] 01584- 8804 May, Hypertension 401.9 ; Hirsutism 704.1 and Hypokalemia 276.8 [place] [address] 92433- 6298 17 May, 2015 Impingement syndrome of right shoulder 726.2 and SLAP lesion of right shoulder 840.7 [place] [address] 09812- 2257 11 May, 2015 [place] [address] 79873054- 4134 Mar, Decreased sex drive 799.81 and Foot pain, bilateral 729.5 [facility] [address] [place] [address] 24422- 5864 Mar, Impingement syndrome of right shoulder 726.2 [facility] [id number] [place] [address] 13498- 0817 Mar, [facility] [address] [place] [address] [id number] Mar, Dental examination V72.2 [place] [address] [place] [id number] [place] [address] 95583- 5849 Feb, Subacromial bursitis 726.19 [place] [address] [place] [id number] [place] [address] 20952- 5634 Feb, [place] [address] [place] [id number] [place] [address] 50607- 0773 January, [facility] [address] [place] [address] 67083- 8503 January, Muscle spasms of lower extremity 728.85 ; Diabetes mellitus , type II 250.00 ; Hypertension 401.9 ; Neuropathy 355.9 ; Hyperlipidemia LDL goal < 100 272.4 ; Hypothyroidism 244.9 ; Insomnia 780.52 ; History of Guillain- [place] syndrome V12.49 ; Acid reflux disease 530.81 ; Presence of IVC filter V45.89 and Anxiety 300.00 IMMUNIZATIONS No Known Immunizations SOCIAL HISTORY Never Assessed REASON FOR VISIT PAIN After TE PLAN OF CARE Activity Details Follow Up prn Reason:one hour alveo. per VITAL SIGNS Height 61 in 2018-04-04 Blood pressure systolic 114 mmHg 2018-04-04 Blood pressure diastolic 61 mmHg 2018-04-04 MEDICATIONS Medication Instructions Dosage Frequency Start Date End Date Duration Status Glucometer 1 kit subcutaneously Once a day OneTouch Verio meter 24h Apr Active Duloxetine HCl 60 MG TAKE ONE CAPSULE BY MOUTH ONCE DAILY (MUST HAVE APPOINTMENT FOR REFILL) 30 Active OneTouch Verio - TEST DAILY 50 Active Pen [place] 32G X 4 MM as directed 24h Apr, Active Lisinopril 5 MG TAKE 1 TABLET BY MOUTH ONCE DAILY 90 Active Lidoderm 5 % Externally Once a day 1 patch to intact skin remove after 12 hours 24h Aug, Active Multivitamin Active Wellbutrin SR 100 mg Orally 3 times a day 1 tablet in the morning 8h Not-Taking Metformin HCl 500 MG TAKE ONE TABLET BY MOUTH TWICE DAILY WITH MEALS (MUST HAVE APPOINTMENT FOR REFILL) Active Ranitidine HCl 150 MG TAKE ONE TABLET BY MOUTH TWICE DAILY (MUST HAVE APPOINTMENT FOR REFILL) 30 Active Omeprazole 40 MG TAKE ONE CAPSULE BY MOUTH ONCE DAILY 90 Active Ibuprofen 200 MG Orally every 6 hrs 1 tablet as needed 6h Active Promethazine HCl 25 MG TAKE ONE TABLET BY MOUTH EVERY 6 HOURS NEEDED 15 Active Test strips Test Strips subcutaneously - test once daily OneTouch Verio test strips as directed Apr, Active Levothyroxine Sodium 50 MCG TAKE ONE TABLET BY MOUTH ONCE DAILY (MUST HAVE APPOINTMENT FOR REFILL) 30 Active Atorvastatin Calcium 40 mg Orally Once a day 1 tablet 24h 30 Active Potassium Chloride 10 MEQ Orally Twice a day 1 capsule 12h 30 Active Baclofen 10 mg Orally Three times a day 1 tablet with food or milk as needed 8h 20 Active RESULTS No Results PROCEDURES Procedure Date Ordered Result Body Site LTD ORAL EVALUATION - PROBLEM FOCUS April 04, 2018 INSTRUCTIONS MEDICATIONS ADMINISTERED No Known Medications [...]
--- OUTSIDE RECORDS SUMMARY | 2018-10-08 05:57 | XMS REPORT ---
Author Author LADONNA DOE Organization [facility] Address [address] [place] [address] Care Team Providers Care Blind Hooker Name Role Phone SANDY DOETA Unavailable PROBLEMS Type Condition ICD9-CM Code UXX05-LC Code Onset Dates Condition Status SNOMED Code Problem Chronic prescription benzodiazepine use Z79.899 Active 495062437 Problem Delayed gastric emptying K30 Active 859851335 Problem Hypothyroidism, unspecified hypothyroidism type E03.9 Active 13138740 Problem Presence of IVC filter Z95.828 Active 751404678 Problem Leukocytosis, unspecified type D72.829 Active 355507339 Problem 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 Active 511539829898346 Problem Morbid obesity due to excess calories E66.01 Active 937239592 Problem Gastroesophageal reflux disease, esophagitis presence not specified K21.9 Active 581300147 Problem Fatty liver K76.0 Active 709758610 Problem Constipation by delayed colonic transit K59.01 Active 09177678 Problem Type 2 diabetes mellitus with foot ulcer E11.621 Active 210380639036310 Problem Personality disorder, unspecified F60.9 Active 85388854 Problem Dysthymic disorder F34.1 Active 71918556 Problem Hirsutism L68.0 Active 445458609 Problem Essential hypertension I10 Active 08971410 Problem Anxiety F41.9 Active 42489242 Problem Non-pressure chronic ulcer of other part of right foot limited to breakdown of skin L97.511 Active 520758185 Problem Non-pressure chronic ulcer of other part of left foot limited to breakdown of skin L97.521 Active 270210529 Problem Tinnitus of both ears H93.13 Active 8501251191973 Problem Sensorineural hearing loss (SNHL) of both ears H90.3 Active 216466394 Problem Type 2 diabetes mellitus with diabetic polyneuropathy E11.42 Active 211773373 Problem 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 Active 082554933 Problem Primary insomnia F51.01 Active 188755197 Problem Mixed hyperlipidemia E78.2 Active 713025266 Problem DM neuro manif type II E11.49 Active 73129569 Problem Periodic limb movement sleep disorder G47.61 Active 603328860 Problem Type II or unspecified type diabetes mellitus with neurological manifestations, not stated as uncontrolled E11.49 Active 34603935 Problem Elevated ALT measurement R74.0 Active 090372322 ALLERGIES No Known Allergies ENCOUNTERS Encounter Location Date Diagnosis [place] [address] [address] Jun, [facility] [address] [address]- [address] 18 May, 2018 [place] [address] [address]22- [address]36 May, Dysthymic disorder F34.1 and Personality disorder, unspecified F60.9 [place] [address] 65581- 0083 Apr, Right arm pain M79.601 [place] [address] 86629- 7368 Apr, [place] [address] 64585- 5598 Apr, Dysthymic disorder F34.1 and Anxiety F41.9 [place] [address] 29908- 2123 Mar, Acute pain of right knee M25.561 [facility] [address] [place] [id number] [place] [address] 37365- 1836 Mar, [facility] [address] 127[address]- 8615 Mar, Acute pain of right knee M25.561 [facility] [address] [address] [id number] [place] [address] 65848- 9060 09 Mar, 2018 Type 2 diabetes mellitus with diabetic polyneuropathy E11.[address] [facility] [id number] [place] [address] [id number] Mar, Dental examination Z01.20 [facility] [id number] [place] [address] 14592- 6756 Mar, Dysthymic disorder F34.1 and Anxiety F41.9 [facility] [id number] [place] [address] 07144- 8472 Feb, [facility] [address] [address] [id number] [place] [address] 16336- 8658 Feb, [facility] [id number] [place] [address] 35579- 3291 Feb, Dental examination Z01.20 [facility] [id number] [place] [address] 90050- 3713 Feb, [facility] [id number] [place] [address] 67219 -9772 Feb, Rib pain on left side R07.81 [facility] [id number] [place] [address] 08899- 4805 Feb, [facility] [address] [place] [id number] [place] [address] 46419- 4442 Feb, [facility] [address] [place] [id number] [place] [address] 75633- 2964 January, [facility] [id number] [place] [address] [id number] January, Dental examination Z01.[address] [facility] [address] [place] [id number] [place] [address] [id number] January, Dental caries K02.9 [facility] [address] [place] [id number] [place] [address] 81071- 8725 January, Type 2 diabetes mellitus with foot ulcer E11.621 ; Flexion deformity of finger joint of left hand M21.242 ; Chronic cough R05 ; Tinnitus of both ears H93.13 ; Sensorineural hearing loss (SNHL) of both ears H90.3 and Leukocytosis, unspecified type D72.829 [place] [id number] [place] [address] 70354- 7965 January, 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 [place] [address] [place] [id number] [place] [address] 02064- 4021 16 Dec, 2017 Cough R05 [place] [address] [place] [id number] [place] [address] 24065- 6896 15 Nov, 2017 [place] [address] [place] [id number] [place] [address] 41921- 6695 05 Nov, 2017 Screening for breast cancer Z12.31 [place] [address] [place] [id number] [place] [address] 07534- 8919 12 Oct, 2017 [place] [address] [place] [id number] [place] [address] 71227- 5757 Oct, [place] [address] [place] [id number] [place] [address] 73457- 2366 07 Oct, 2017 Type 2 diabetes mellitus [...] limited to breakdown of skin L97.521 [facility] [address] [place] [address] [id number] [address] Sep, [facility] [address] [place] [id number] [place] [address] 33965- 1871 Sep, [facility] [address] [place] [id number] [place] [address] 23644- 5605 Aug, 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 [facility] [address] [place] [id number] [place] [address] 68639- 3628 Jul, [facility] [address] [place] [id number] [place] [address] 39985- 1526 May, Type 2 diabetes mellitus with diabetic polyneuropathy E11.42 [facility] [address] [place] [id number] [place] [address] 41530- 4584 May, [facility] [address] [place] [id number] [place] [address] 72449- 8771 May, [facility] [address] [place] [id number] [place] [address] 79284- 9730 Apr, Type 2 diabetes mellitus with diabetic polyneuropathy E11.42 and Morbid obesity due to excess calories E66.01 [facility] [address] [id number] [address]- 58[address] Apr, [facility] [address] [place] [id number] [place] [address] 37070- 9139 Apr, Type 2 diabetes mellitus with diabetic polyneuropathy E11.42 [facility] [id number] [address] Apr, [facility] [address] [place] [id number] [place] [address] 86811- 1602 Mar, [facility] [address] [address]- 1148 Mar, [facility] [address] [address]- 2754 Mar, [facility] [address] [place] [address] [id number] [address] 38744- 1617 Mar, Type 2 diabetes mellitus with diabetic polyneuropathy E11.42 [facility] [address] [address]- 8526 Feb, [facility] [address] [place] [id number] [place] [address] 00084- 2347 Feb, [facility] [address] [place] [id number] [place] [address] 01890- 2571 Feb, Type 2 diabetes mellitus with diabetic polyneuropathy E11.42 ; Preoperative examination Z01.818 ; Wound, open, foot, left, initial encounter S91.302A ; Weight loss R63.4 and Tobacco abuse Z72.0 [facility] [address] [place] [id number] [place] [address] 52513- 5947 Nov, [facility] [address] [place] [address] [id number] [place] [address] 31870- 5686 Nov, Pelvic pain R10.2 [facility] [address] [place] [id number] [place] [address] 86843- 0125 Nov, Morbid obesity due to excess calories E66.01 [facility] [address] [address]- 6365 Nov, [facility] [id number] [place] [address] 68420- 1732 Nov, [facility] [address] [place] [id number] [place] [address] 96548- 1354 Nov, [facility] [address] [id number] [place] [address] 72474- 1343 Nov, [facility] [address] [address]- 7356 Oct, [facility] [address] [place] [address] [id number] [place] [address]- 4081 Oct, [place] [address] [address] [id number] [place] [address] 74581- 4072 Oct, Well woman exam Z01.419 ; Pelvic pain R10.2 and Type 2 diabetes mellitus with diabetic polyneuropathy E11.42 [place] [address] [place] [id number] [place] [address] 54253- 0058 Oct, 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 [place] [address] 92915- 8074 Sep, Essential hypertension I10 ; Mixed hyperlipidemia E78.2 ; Leukocytosis, unspecified type D72.829 and Morbid obesity due to excess calories E66.01 [place] [address] [place] [id number] [place] [address] 58486- 4427 Sep, [place] [address] [place] [id number] [place] [address] 09080- 1187 Aug, Hypothyroidism, unspecified hypothyroidism type E03.9 [place] [address] [place] [id number] [place] [address] 08800- 3954 Aug, Hirsutism L68.0 ; Primary insomnia F51.01 ; BMI 37.0-37.9, adult Z68.37 and Gastroesophageal reflux disease, esophagitis presence not specified K21.9 [place] [address] [place] [id number] [place] [address] 38976- 0526 Jul, [place] [address] [place] [id number] [place] [address] 98779- 6395 Jun, [place] [address] 57553- 9859 Jun, [place] [address] [place] [id number] [place] [address] 20356- 5046 Jun, Hypothyroidism, unspecified hypothyroidism type E03.9 [place] [address] [place] [id number] [place] [address] 85536- 4250 Jun, Type 2 diabetes mellitus with diabetic polyneuropathy E11.42 ; Fatty liver K76.0 ; Leukocytosis, unspecified type D72.829 ; Morbid obesity due to excess calories E66.01 ; Hypotension due to drugs I95.2 ; Non- intractable vomiting with nausea, unspecified vomiting type R11.2 and Mixed hyperlipidemia E78.2 [place] [address] 14307- 2595 Jun, [place] [address] 08797- 3689 Apr, [place] [address] 56827- 8242 Apr, [place] [address] 34066- 9831 Mar, Eustachian tube dysfunction, bilateral H69.83 [place] [address] 06197- 2564 Mar, [place] [address] [place] [id number] [address] 90401- 2054 Feb, [place] [address] [place] [id number] [place] [address] 32200- 9500 Feb, Type 2 diabetes mellitus with diabetic polyneuropathy E11.42 ; Periodic limb movement sleep disorder G47.61 ; Hirsutism L68.0 ; Leukocytosis, unspecified type D72.829 and Postural dizziness R42 [place] [address] [place] [id number] [place] [address] 24598- 8856 Dec, Onychomycosis B35.1 and Foot ulcer L97.509 [place] [address] 88382- 3786 Nov, [place] [address] [place] [id number] [place] [address] 70383- 7170 Nov, Preoperative cardiovascular examination Z01.810 ; Type 2 diabetes mellitus with diabetic polyneuropathy E11.42 and Essential hypertension I10 [place] [id number] [address] 39194- 8750 12 Oct, 2015 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 ; Hammertoe M20.40 and DM neuro manif type II E11.49 [place] [address] [id number] [place] [address] 86578- 8742 11 Oct, 2015 Impingement syndrome of right shoulder M75.41 [place] [address] [address] [id number] [place] [address] 71482- 4614 Sep, [place] [address] [id number] [place] [address] 42181- 5709 Sep, [place] [address] [address] [id number] [place] [address] 67563- 8603 14 Sep, 2015 Leukocytosis, unspecified elevated WBC count D72.829 [place] [address] [address] [id number] [place] [address] 10667- 7957 Sep, Leukocytosis, unspecified elevated WBC count D72.829 [place] [address] [address] [id number] [place] [address] 31312- 5409 Sep, [place] [address] [place] [address] [id number] [place] [address] 23305- 7298 Sep, [place] [id number] [address] 77136- 0719 Sep, [place] [address] [id number] [place] [address] 69566- 9972 Sep, Periodic limb movement sleep disorder G47.61 ; Leukocytosis , unspecified elevated WBC count D72.829 and Mixed hyperlipidemia E78.2 [place] [address] [id number] [place] [address] 15973- 4642 Sep, Periodic limb movement sleep disorder G47.61 [place] [id number] [address] 25228- 7816 Aug, [place] [address] 86083- 6305 Aug, Type 2 diabetes mellitus with diabetic polyneuropathy E11.42 ; 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 and Major depressive disorder , recurrent episode, mild F33.0 [place] [address] 22599- 1406 Aug, Impingement syndrome of right shoulder M75.41 [place] [address] 63730- 5823 Aug, Shortness of breath R06.02 [place] [address] 88142- 5342 Aug, [place] [address] 46895- 7435 Aug, 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 and Type II or unspecified type diabetes mellitus with neurological manifestations, not stated as uncontrolled E11.49 [place] [address] 03783- 4061 Aug, [place] [address] 26665- 7734 Jul, Presence of IVC filter Z95.828 [place] [address] [place] [id number] [place] [address] 54124- 5747 Jul, Rotator cuff tear, right M75.101 [place] [address] [place] [id number] [place] [address] 85047- 6749 Jul, [place] [address] 03434- 3098 Jul, [place] [address] 25195- 5056 Jul, [place] [address] 32115- 4048 Jun, Leukocytosis, unspecified elevated WBC count D72.829 and Mixed hyperlipidemia E78.2 [place] [address] [place] [id number] [address] 06016- 9349 Jun, Type 2 diabetes mellitus with diabetic polyneuropathy E11.42 ; Hypothyroidism, unspecified hypothyroidism type E03.9 ; Elevated ALT measurement R74.0 ; Mixed hyperlipidemia E78.2 ; Primary insomnia F51.01 ; Seizure-like activity R56.9 ; Presence of IVC filter Z95.828 and Elevated liver enzymes R74.8 [place] [address] 87288- 9092 Jun, [place] [address] 76961- 7416 Jun, Hammertoe M20.40 and 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 [place] [address] [id number] [place] [address] 28933- 4813 Jun, Elevated liver enzymes R74.8 [place] [address] [id number] [place] [address] 82755- 8210 Jun, Elevated liver enzymes R74.8 [place] [address] [id number] [place] [address] 83595- 3076 May, Elevated liver enzymes R74.8 [place] [address] [id number] [address] 48231- 5191 May, Hypertension 401.9 ; Hirsutism 704.1 and Hypokalemia 276.8 [place] [address] [id number] [address] 69903- 7247 May, Hypertension 401.9 ; Hirsutism 704.1 and Hypokalemia 276.8 [place] [address] 90624- 1557 17 May, 2015 Impingement syndrome of right shoulder 726.2 and SLAP lesion of right shoulder 840.7 [place] [address] [id number] [address] 08789- 0343 11 May, 2015 [place] [address] [address]- 3272 Mar, Decreased sex drive 799.81 and Foot pain, bilateral 729.5 [place] [id number] [address] 87459- 1560 Mar, Impingement syndrome of right shoulder 726.2 [place] [id number] [place] [address] 04933- 9834 Mar, [facility] [id number] [address] [id number] Mar, Dental examination V72.2 [place] [address] 21558- 8575 11 Feb, 2015 Subacromial bursitis 726.19 [place] [id number] [address] 82348- 1561 Feb, [place] [id number] [place] [address] 46331- 8984 January, [place] [id number] [place] [address] 62766- 7220 January, Muscle spasms of lower extremity 728.85 ; Diabetes mellitus , type II 250.00 ; Hypertension 401.9 ; Neuropathy 355.9 ; Hyperlipidemia LDL goal < 100 272.4 ; Hypothyroidism 244.9 ; Insomnia 780.52 ; History of Guillain- [place] syndrome V12.49 ; Acid reflux disease 530.81 ; Presence of IVC filter V45.89 and Anxiety 300.00 IMMUNIZATIONS No Known Immunizations SOCIAL HISTORY Never Assessed REASON FOR VISIT Pain (acute)(knee), right knee, states she took her dogs out saturday evening and they pulled her over, reports [facility] sides [facility] OF CARE Activity Details Follow Up 2-4 weeks if not better Reason:knee pain VITAL SIGNS Height 61 in 2018-04-10 Weight 166.6 lbs 2018-04-10 Temperature 97.3 degrees Fahrenheit 2018-04-10 Heart Rate 90 bpm 2018-04-10 Respiratory Rate 20 2018-04-10 BMI 31.48 kg/m2 2018-04-10 Blood pressure systolic 108 mmHg 2018-04-10 Blood pressure diastolic 68 mmHg 2018-04-10 MEDICATIONS Medication Instructions Dosage Frequency Start Date End Date Duration Status Pen Ilfeld 32G X 4 MM as directed 24h Apr, Active Atorvastatin Calcium 40 mg Orally Once a day 1 tablet 24h 30 Active Test strips Test Strips subcutaneously - test once daily OneTouch Verio test strips as directed Apr, Active Glucometer 1 kit subcutaneously Once a day OneTouch Verio meter 24h Apr Active Metformin HCl 500 MG TAKE ONE TABLET BY MOUTH TWICE DAILY WITH MEALS (MUST HAVE APPOINTMENT FOR REFILL) Active Ibuprofen 200 MG Orally every 6 hrs 1 tablet as needed 6h Active Naproxen 500 mg Orally every 12 hrs 1 tablet with food or milk as needed 12h 12 Mar, 2018 Mar, 05 days Active OneTouch Verio - TEST DAILY 50 Active Duloxetine HCl 60 MG TAKE ONE CAPSULE BY MOUTH ONCE DAILY (MUST HAVE APPOINTMENT FOR REFILL) 30 Active Omeprazole 40 MG TAKE ONE CAPSULE BY MOUTH ONCE DAILY 90 Active Ranitidine HCl 150 MG TAKE ONE TABLET BY MOUTH TWICE DAILY (MUST HAVE APPOINTMENT FOR REFILL) 30 Active Lidoderm 5 % Externally Once a day 1 patch to intact skin remove after 12 hours 24h Aug, Active Promethazine HCl 25 MG TAKE ONE TABLET BY MOUTH EVERY 6 HOURS NEEDED 15 Active Levothyroxine Sodium 50 MCG TAKE ONE TABLET BY MOUTH ONCE DAILY (MUST HAVE APPOINTMENT FOR REFILL) 30 Active Multivitamin Active Lisinopril 5 MG TAKE 1 TABLET BY MOUTH ONCE DAILY 90 Active Potassium Chloride 10 MEQ Orally Twice a day 1 capsule 12h 30 Active Baclofen 10 mg Orally Three times a day 1 tablet with food or milk as needed 8h 20 Active RESULTS No Results PROCEDURES Procedure Date Ordered Result Body Site [facility] VISIT ESTABLISHED PATIENT April 10, 2018 INSTRUCTIONS MEDICATIONS ADMINISTERED No Known Medications [...]
--- OUTSIDE RECORDS SUMMARY | 2018-10-08 05:57 | XMS REPORT ---
Author Author BRIELLE CANTRELL Organization [facility] Address [address] [place] [address] Care Team Providers Care Porcelain Enameler Name Role Phone BRIELLE CANTRELL Unavailable PROBLEMS Type Condition ICD9-CM Code WZG96-FL Code Onset Dates Condition Status SNOMED Code Problem Chronic prescription benzodiazepine use Z79.899 Active 726043805 Problem Delayed gastric emptying K30 Active 708022961 Problem Hypothyroidism, unspecified hypothyroidism type E03.9 Active 72306260 Problem Presence of IVC filter Z95.828 Active 857739448 Problem Leukocytosis, unspecified type D72.829 Active 856389861 Problem 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 833969518627034 Problem Morbid obesity due to excess calories E66.01 Active 155719845 Problem Gastroesophageal reflux disease, esophagitis presence not specified K21.9 Active 600014819 Problem Fatty liver K76.0 Active 537744880 Problem Constipation by delayed colonic transit K59.01 Active 78309693 Problem Type 2 diabetes mellitus with foot ulcer E11.621 Active 909636955643052 Problem Personality disorder, unspecified F60.9 Active 71176343 Problem Dysthymic disorder F34.1 Active 94872393 Problem Hirsutism L68.0 Active 822388788 Problem Essential hypertension I10 Active 55991140 Problem Anxiety F41.9 Active 74702834 Problem Non-pressure chronic ulcer of other part of right foot limited to breakdown of skin L97.511 Active 619608589 Problem Non-pressure chronic ulcer of other part of left foot limited to breakdown of skin L97.521 Active 289393564 Problem Tinnitus of both ears H93.13 Active 7965380409207 Problem Sensorineural hearing loss (SNHL) of both ears H90.3 Active 722367142 Problem Type 2 diabetes mellitus with diabetic polyneuropathy E11.42 Active 927420961 Problem 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 Active 905970027 Problem Primary insomnia F51.01 Active 920036309 Problem Mixed hyperlipidemia E78.2 Active 486955786 Problem DM neuro manif type II E11.49 Active 20968695 Problem Periodic limb movement sleep disorder G47.61 Active 377113649 Problem Type II or unspecified type diabetes mellitus with neurological manifestations, not stated as uncontrolled E11.49 Active 16117339 Problem Elevated ALT measurement R74.0 Active 128124328 ALLERGIES No Known Allergies ENCOUNTERS Encounter Location Date Diagnosis [facility] [address] [address] Jun, [facility] [address] [address] 18 May, 2018 [place] [address] [address] May, Dysthymic disorder F34.1 and Personality disorder, unspecified F60.9 [place] [address] [address]- 3[address] Apr, Right arm pain M79.601 [place] [address] [address] Apr, [place] [address] [address] Apr, Dysthymic disorder F34.1 and Anxiety F41.9 [place] [address] [place] [id number] [place] [address] 35012- 1610 Mar, Acute pain of right knee M25.561 [facility] [address] [place] [id number] [place] [address] 51374- 7237 Mar, [facility] [address] [address]- [address] Mar, Acute pain of right knee M25.561 [facility] [address] [place] [id number] [place] [address] 03639- 8044 09 Mar, 2018 Type 2 diabetes mellitus with diabetic polyneuropathy E11.42 [facility] [address] [place] [id number] Mar, Dental examination Z01.20 [facility] [address] [place] [id number] [place] [address] 46876- 4741 Mar, Dysthymic disorder F34.1 and Anxiety F41.9 [facility] [address] [place] [id number] [place] [address] 14672- 7374 Feb, [facility] [address] 17[address]- 8821 Feb, [facility] [address] [place] [id number] [place] [address] 83093- 3712 Feb, Dental examination Z01.20 [facility] [address] [place] [id number] [place] [address] 99784- 7150 Feb, [facility] [address] [place] [id number] [place] [address] 58610 -1415 Feb, Rib pain on left side R07.81 [facility] [address] [place] [id number] [place] [address] 86110- 4862 Feb, [facility] [address] [address]- 16[address] Feb, [facility] [address] [place] [id number] [place] [address] 91850- 5787 January, [facility] [id number] [place] [address] [id number] January, Dental examination Z01.20 [facility] [address] [place] [id number] [place] [address] [id number] January, Dental caries K02.9 [facility] [address] [id number]- 2892 January, Type 2 diabetes mellitus with foot ulcer E11.621 ; Flexion deformity of finger joint of left hand M21.242 ; Chronic cough R05 ; Tinnitus of both ears H93.13 ; Sensorineural hearing loss (SNHL) of both ears H90.3 and Leukocytosis, unspecified type D72.829 [place] [id number] [place] [address] 19852- 2851 January, [facility] [id number] [place] [address] [id number] Dec, Dental examination Z01.20 [place] [address] [place] [id number] [place] [address] 45072- 4597 Dec, Medicare annual wellness visit, initial Z00.00 ; DM neuro manif type II E11.49 ; Morbid obesity due to excess calories E66.01 ; Essential hypertension I10 ; Anxiety F41.9 ; 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 ; Encounter for immunization Z23 ; Cough R05 and 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 [place] [address] [place] [id number] [place] [address] 83922- 8759 16 Dec, 2017 Cough R05 [place] [address] [place] [id number] [place] [address] 21689- 6129 15 Nov, 2017 [place] [address] [place] [id number] [place] [address] 20821- 5368 05 Nov, 2017 Screening for breast cancer Z12.31 [place] [address] [place] [id number] [place] [address] 72495- 1122 12 Oct, 2017 [place] [address] [place] [id number] [place] [address] 87907- 9356 Oct, [place] [address] [place] [id number] [place] [address] 93752- 3319 07 Oct, 2017 Type 2 diabetes mellitus [...] foot limited to breakdown of skin L97.521 [facility] [address] [place] [id number] [place] [address] 25489- 9728 Sep, [facility] [address] [place] [id number] [place] [address] 75499- 6595 Sep, [facility] [address] [place] [id number] [place] [address] 68053- 0900 Aug, 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 [facility] [address] [place] [id number] [place] [address] 15932- 0099 Jul, [facility] [address] [place] [id number] [place] [address] 10910- 5122 May, Type 2 diabetes mellitus with diabetic polyneuropathy E11.42 [facility] [address] [place] [id number] [place] [address] 56144- 8903 May, [facility] [address] [place] [id number] [place] [address] 79304- 1722 May, [facility] [address] [place] [id number] [place] [address] 47537- 2355 Apr, Type 2 diabetes mellitus with diabetic polyneuropathy E11.42 and Morbid obesity due to excess calories E66.01 [facility] [address] [address] Apr, [facility] [address] [place] [id number] [place] [address] 90745- 9104 Apr, Type 2 diabetes mellitus with diabetic polyneuropathy E11.42 [facility] [id number] [place] [address] 00823 -4651 Apr, [facility] [address] [place] [id number] [place] [address] 87078- 5726 Mar, [facility] [id number] [place] [address] 16746- 4479 Mar, [facility] [address] [address]- [address] Mar, [facility] [address] [place] [id number] [place] [address] 33876- 2826 Mar, Type 2 diabetes mellitus with diabetic polyneuropathy E11.42 [facility] [address] [address] 49[address] Feb, [facility] [address] [place] [id number] [place] [address] 66032- 2368 Feb, [facility] [address] [address]- 55[address] Feb, Type 2 diabetes mellitus with diabetic polyneuropathy E11.42 ; Preoperative examination Z01.818 ; Wound, open, foot, left, initial encounter S91.302A ; Weight loss R63.4 and Tobacco abuse Z72.0 [facility] [address] [place] [id number] [place] [address] 69022- 4212 Nov, [facility] [address] [address]- 6[address] Nov, Pelvic pain R10.2 [facility] [address] [place] [id number] [place] [address] 75644- 9715 Nov, Morbid obesity due to excess calories E66.01 [facility] [address] [address]- 5203 Nov, [facility] [address] [place] [address]- 1728 Nov, [facility] [address] [place] [address]- 7680 Nov, [facility] [address] [place] [address]- 40[address] Nov, [facility] [address] [place] [address]- 5694 Oct, [facility] [address] [place] [id number] [place] [address] 48628- 1726 Oct, [place] [address] 14198- 1843 Oct, Well woman exam Z01.419 ; Pelvic pain R10.2 and Type 2 diabetes mellitus with diabetic polyneuropathy E11.42 [place] [address] [place] [id number] [place] [address] 15887- 2970 Oct, 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 [place] [address] [place] [id number] [place] [address] 94850- 7676 Sep, Essential hypertension I10 ; Mixed hyperlipidemia E78.2 ; Leukocytosis, unspecified type D72.829 and Morbid obesity due to excess calories E66.01 [place] [address] [place] [id number] [place] [address] 47979- 8746 Sep, [place] [address] [place] [id number] [place] [address] 91210- 2671 Aug, Hypothyroidism, unspecified hypothyroidism type E03.9 [place] [address] 22964- 5519 Aug, Hirsutism L68.0 ; Primary insomnia F51.01 ; BMI 37.0-37.9, adult Z68.37 and Gastroesophageal reflux disease, esophagitis presence not specified K21.9 [place] [address] [place] [id number] [place] [address] 64408- 6488 Jul, [place] [address] [place] [id number] [place] [address] 67184- 8930 Jun, [place] [address] 19493- 3808 Jun, [place] [address] [place] [id number] [place] [address] 65380- 8756 Jun, Hypothyroidism, unspecified hypothyroidism type E03.9 [place] [address] [place] [address]- 8917 Jun, Type 2 diabetes mellitus with diabetic polyneuropathy E11.42 ; Fatty liver K76.0 ; Leukocytosis, unspecified type D72.829 ; Morbid obesity due to excess calories E66.01 ; Hypotension due to drugs I95.2 ; Non- intractable vomiting with nausea, unspecified vomiting type R11.2 and Mixed hyperlipidemia E78.2 [place] [address] 44247- 9765 Jun, [place] [address] 70312- 9048 Apr, [place] [address] 35374- 5854 Apr, [place] [address] 75452- 8355 Mar, Eustachian tube dysfunction, bilateral H69.83 [place] [address] 29768- 3622 Mar, [place] [address] 44873- 4537 Feb, [place] [address] 45542- 6548 Feb, Type 2 diabetes mellitus with diabetic polyneuropathy E11.42 ; Periodic limb movement sleep disorder G47.61 ; Hirsutism L68.0 ; Leukocytosis, unspecified type D72.829 and Postural dizziness R42 [place] [address] [place] [id number] [place] [address] 85793- 2303 Dec, Onychomycosis B35.1 and Foot ulcer L97.509 [place] [address] 54669- 6303 Nov, [place] [address] 74532- 5065 Nov, Preoperative cardiovascular examination Z01.810 ; Type 2 diabetes mellitus with diabetic polyneuropathy E11.42 and Essential hypertension I10 [place] [address] [place] [id number] [place] [address] 63135- 7492 12 Oct, 2015 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 ; Hammertoe M20.40 and DM neuro manif type II E11.49 [place] [address] [place] [id number] [place] [address] 44874- 3260 11 Oct, 2015 Impingement syndrome of right shoulder M75.41 [place] [address] [place] [id number] [place] [address] 04099- 9134 Sep, [place] [address] [place] [id number] [place] [address] 33410- 7174 Sep, [place] [address] [place] [id number] [place] [address] 90764- 7263 Sep, Leukocytosis, unspecified elevated WBC count D72.829 [place] [address] [place] [id number] [place] [address] 50868- 3192 Sep, Leukocytosis, unspecified elevated WBC count D72.829 [place] [address] [place] [id number] [place] [address] 34638- 7512 Sep, [place] [address] [place] [id number] [place] [address] 37982- 4938 Sep, [place] [id number] [place] [address] 38300- 2998 Sep, [place] [address] [place] [id number] [place] [address] 02982- 0707 Sep, Periodic limb movement sleep disorder G47.61 ; Leukocytosis , unspecified elevated WBC count D72.829 and Mixed hyperlipidemia E78.2 [place] [address] [place] [id number] [place] [address] 65692- 0057 Sep, Periodic limb movement sleep disorder G47.61 [place] [id number] [place] [address] 30814- 1835 Aug, [place] [address] [place] [id number] [place] [address] 69724- 0528 Aug, Type 2 diabetes mellitus with diabetic polyneuropathy E11.42 ; 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 and Major depressive disorder , recurrent episode, mild F33.0 [place] [address] 03016- 9076 Aug, Impingement syndrome of right shoulder M75.41 [place] [address] 69042- 0966 Aug, Shortness of breath R06.02 [place] [address] 27590- 0644 Aug, [place] [address] 72887- 0115 Aug, 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 and Type II or unspecified type diabetes mellitus with neurological manifestations, not stated as uncontrolled E11.49 [place] [address] 68668- 7947 Aug, [place] [address] 96886- 4960 Jul, Presence of IVC filter Z95.828 [place] [address] 75407- 5193 Jul, Rotator cuff tear, right M75.101 [place] [address] 31231- 7798 Jul, [place] [address] 56171- 3069 Jul, [place] [address] 30396- 2261 Jul, [place] [address] 33799- 7783 Jun, Leukocytosis, unspecified elevated WBC count D72.829 and Mixed hyperlipidemia E78.2 [place] [address] [place] [id number] [place] [address] 29985- 6095 Jun, Type 2 diabetes mellitus with diabetic polyneuropathy E11.42 ; Hypothyroidism, unspecified hypothyroidism type E03.9 ; Elevated ALT measurement R74.0 ; Mixed hyperlipidemia E78.2 ; Primary insomnia F51.01 ; Seizure-like activity R56.9 ; Presence of IVC filter Z95.828 and Elevated liver enzymes R74.8 [place] [address] 22453- 2633 Jun, [place] [address] 99387- 5550 Jun, Hammertoe M20.40 and 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 [place] [address] 19217- 5508 Jun, Elevated liver enzymes R74.8 [place] [address] 18776- 9337 Jun, Elevated liver enzymes R74.8 [place] [address] 56576- 7175 May, Elevated liver enzymes R74.8 [place] [address] [place] [id number] [place] [address] 84511- 6455 May, Hypertension 401.9 ; Hirsutism 704.1 and Hypokalemia 276.8 [place] [address] [place] [id number] [place] [address] 24664- 7002 May, Hypertension 401.9 ; Hirsutism 704.1 and Hypokalemia 276.8 [place] [address] 21068- 1145 17 May, 2015 Impingement syndrome of right shoulder 726.2 and SLAP lesion of right shoulder 840.7 [place] [address] [place] [id number] [place] [address] 95238- 9517 May, [place] [id number] [place] [address] [id number]- 1828 Mar, Decreased sex drive 799.81 and Foot pain, bilateral 729.5 [place] [address] [place] [address] 53210- 4422 Mar, Impingement syndrome of right shoulder 726.2 [place] [id number] [place] [address] 83251- 9982 Mar, [facility] [address] [place] [id number] [place] [address] [id number] Mar, Dental examination V72.[address] 38875- 8009 Feb, Subacromial bursitis 726.[address] 23464- 7728 Feb, [place] [id number] [place] [address] 57551- 6689 January, [place] [id number] [place] [address] 30096- 7914 January, Muscle spasms of lower extremity 728.85 ; Diabetes mellitus , type II 250.00 ; Hypertension 401.9 ; Neuropathy 355.9 ; Hyperlipidemia LDL goal < 100 272.4 ; Hypothyroidism 244.9 ; Insomnia 780.52 ; History of Guillain- Hubbardston syndrome V12.49 ; Acid reflux disease 530.81 ; Presence of IVC filter V45.89 and Anxiety 300.00 IMMUNIZATIONS No Known Immunizations SOCIAL HISTORY Never Assessed REASON FOR VISIT intake PLAN OF CARE Activity Details Follow Up 2 Weeks Reason: VITAL SIGNS MEDICATIONS Medication Instructions Dosage Frequency Start Date End Date Duration Status Pen Alverda 32G X 4 MM as directed 24h Apr, Active Wellbutrin SR 100 mg Orally 3 times a day 1 tablet in the morning 8h Not-Taking OneTouch Verio - TEST DAILY 50 Active Potassium Chloride 10 MEQ Orally Twice a day 1 capsule 12h 30 Active Levothyroxine Sodium 50 MCG TAKE ONE TABLET BY MOUTH ONCE DAILY (MUST HAVE APPOINTMENT FOR REFILL) 30 Active Ibuprofen 200 MG Orally every 6 hrs 1 tablet as needed 6h Active Lisinopril 5 MG TAKE 1 TABLET BY MOUTH ONCE DAILY 90 Active Promethazine HCl 25 MG TAKE ONE TABLET BY MOUTH EVERY 6 HOURS NEEDED 15 Active Omeprazole 40 MG TAKE ONE CAPSULE BY MOUTH ONCE DAILY 90 Active Duloxetine HCl 60 MG TAKE ONE CAPSULE BY MOUTH ONCE DAILY (MUST HAVE APPOINTMENT FOR REFILL) 30 Active Ranitidine HCl 150 MG TAKE ONE TABLET BY MOUTH TWICE DAILY (MUST HAVE APPOINTMENT FOR REFILL) 30 Active Multivitamin Active Baclofen 10 mg Orally Three times a day 1 tablet with food or milk as needed 8h 20 Active Test strips Test Strips subcutaneously - test once daily OneTouch Verio test strips as directed Apr, Active Glucometer 1 kit subcutaneously Once a day OneTouch Verio meter 24h Apr Active Metformin HCl 500 MG TAKE ONE TABLET BY MOUTH TWICE DAILY WITH MEALS (MUST HAVE APPOINTMENT FOR REFILL) Active Lidoderm 5 % Externally Once a day 1 patch to intact skin remove after 12 hours 24h Aug, Active Atorvastatin Calcium 40 mg Orally Once a day 1 tablet 24h 30 Active RESULTS No Results PROCEDURES Procedure Date Ordered Result Body Site [facility] VISIT MENTAL HEALTH ESTAB PT April 04, 2018 Psych diagnostic evaluation, established patient April 04, 2018 INSTRUCTIONS MEDICATIONS ADMINISTERED No [...]
--- OUTSIDE RECORDS SUMMARY | 2018-10-08 05:58 | XMS REPORT ---
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 Active 132957905388340 Problem Leukocytosis, unspecified type D72.829 Active 533719250 Problem Gastroesophageal reflux disease, esophagitis presence not specified K21.9 Active 983006944 Problem Morbid obesity due to excess calories E66.01 Active 687065767 Problem Type 2 diabetes mellitus with foot ulcer E11.621 Active 514843820593208 Problem Fatty liver K76.0 Active 760742817 Problem Dysthymic disorder F34.1 Active 68783505 Problem Tinnitus of both ears H93.13 Active 7397550733854 Problem Hirsutism L68.0 Active 515899573 Problem Hypothyroidism, unspecified hypothyroidism type E03.9 Active 06455509 Problem Essential hypertension I10 Active 23932465 Problem Non-pressure chronic ulcer of other part of right foot limited to breakdown of skin L97.511 Active 189667183 Problem Non-pressure chronic ulcer of other part of left foot limited to breakdown of skin L97.521 Active 463555764 Problem Sensorineural hearing loss (SNHL) of both ears H90.3 Active 628291592 Problem Constipation by delayed colonic transit K59.01 Active 66433431 Problem Mixed hyperlipidemia E78.2 Active 097774909 Problem Type 2 diabetes mellitus with diabetic polyneuropathy E11.42 Active 234445807 Problem Primary insomnia F51.01 Active 056071327 Problem Anxiety F41.9 Active 38759311 Problem Elevated ALT measurement R74.0 Active 305060076 Problem DM neuro manif type II E11.49 Active 22312694 Problem 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 Active 256255790 Problem Type II or unspecified type diabetes mellitus with neurological manifestations, not stated as uncontrolled E11.49 Active 93114238 ALLERGIES No Information ENCOUNTERS Encounter Location Date Diagnosis [facility] [id number] [place] [address] [id number] 26 May, 2018 [facility] [address] [address]- [address]003 May, [facility] [address] 56651- 9685 May, [place] [address] 46626- 9950 Apr, Right arm pain M79.601 [place] [address] 61859- 3955 Apr, [facility] [id number] [place] [address] 02754- 4907 Apr, Dysthymic disorder F34.1 and Anxiety F41.9 [place] [address] 18986- 8040 Mar, Acute pain of right knee M25.561 [place] [id number] [place] [address] 35692- 4346 Mar, [facility] [id number] [place] [address] 37997- 1939 Mar, Acute pain of right knee M25.561 [facility] [address] 22717- 8436 Mar, Type 2 diabetes mellitus with diabetic polyneuropathy E11.42 [facility] [id number] [place] [address] [id number] Mar, Dental examination Z01.20 [facility] [address] [place] [address] Mar, Dysthymic disorder F34.1 and Anxiety F41.9 [facility] [address] 87888- 8518 Feb, [facility] [id number] [place] [address] 58114- 2592 Feb, [facility] [address] 37768- 6449 Feb, Dental examination Z01.20 [facility] [id number] [place] [address] 11751- 6639 Feb, [facility] [id number] [place] [address] 74326 -2866 Feb, Rib pain on left side R07.81 [facility] [address] 79258- 0460 Feb, [facility] [id number] [place] [address] 20272- 0721 Feb, [facility] [id number] [place] [address] 73429- 0674 January, [facility] [id number] [place] [address] [id number] January, Dental examination Z01.20 [facility] [id number] [place] [address] [id number] January, Dental caries K02.9 [facility] [id number] [place] [address] 30774- 1516 January, Type 2 diabetes mellitus with foot ulcer E11.621 ; Flexion deformity of finger joint of left hand M21.242 ; Chronic cough R05 ; Tinnitus of both ears H93.13 ; Sensorineural hearing loss (SNHL) of both ears H90.3 and Leukocytosis, unspecified type D72.829 [facility] [id number] [place] [address] 92322- 8959 January, [facility] [id number] [id number] Dec, Dental examination Z01.20 [place] [id number] [place] [address] [id number]- 9155 Dec, Medicare annual wellness visit, initial Z00.00 ; DM neuro manif type II E11.49 ; Morbid obesity due to excess calories E66.01 ; Essential hypertension I10 ; Anxiety F41.9 ; 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 ; Encounter for immunization Z23 ; Cough R05 and 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 [place] [address] 43785- 9956 16 Dec, 2017 Cough R05 [place] [id number] [place] [address] 67201- 5044 15 Nov, 2017 [place] [id number] [place] [address] 46051- 6377 05 Nov, 2017 Screening for breast cancer Z12.31 [place] [id number] [place] [address] 31927- 1758 12 Oct, 2017 [place] [id number] [place] [address] 77057- 5028 12 Oct, 2017 [place] [id number] [place] [address] 92862- 0381 07 Oct, 2017 Type 2 diabetes mellitus [...] foot limited to breakdown of skin L97.521 [address] [address] 6643 Sep, [facility] [id number] [address]- 7725 Sep, [facility] [id number] [place] [address] 72438- 5752 Aug, 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 [facility] [id number] [place] [address] 03489- 3867 Jul, [facility] [id number] [place] [address] 91236- 6908 May, Type 2 diabetes mellitus with diabetic polyneuropathy E11.42 [facility] [id number] [place] [address] 63204- 1804 May, [facility] [id number] [place] [address] 97976- 5627 May, [facility] [id number] [place] [address] 16076- 4351 Apr, Type 2 diabetes mellitus with diabetic polyneuropathy E11.42 and Morbid obesity due to excess calories E66.01 [facility] [address] [address]- 2753 Apr, [facility] [address] [address]- 7736 Apr, Type 2 diabetes mellitus with diabetic polyneuropathy E11.42 [facility] [address] [address] Apr, [facility] [address] [address]- 9494 Mar, [facility] [address] [address]- 1506 Mar, [facility] [address] [address]- 9862 Mar, [facility] [address] [address]- 7330 Mar, Type 2 diabetes mellitus with diabetic polyneuropathy E11.42 [facility] [id number] [place] [address] 08645- 9476 Feb, [facility] [address] [address]- 3540 Feb, [facility] [id number] [place] [address] 72692- 5452 Feb, Type 2 diabetes mellitus with diabetic polyneuropathy E11.42 ; Preoperative examination Z01.818 ; Wound, open, foot, left, initial encounter S91.302A ; Weight loss R63.4 and Tobacco abuse Z72.0 [facility] [address] [address]- 1825 Nov, [facility] [id number] [place] [address] 33928- 6060 Nov, Pelvic pain R10.2 [facility] [id number] [place] [address] 91087- 5143 Nov, Morbid obesity due to excess calories E66.01 [facility] [address], [place] [address]- 3969 Nov, [facility] [address] [address]- 6310 Nov, [facility] [address] [address]- 3609 Nov, [facility] [address] [address]- 4614 Nov, [facility] [id number] [place] [address] 67151- 2211 Oct, [facility] [address] [address]- 7370 Oct, [facility] [id number] [place] [address] 97140- 8130 Oct, Well woman exam Z01.419 ; Pelvic pain R10.2 and Type 2 diabetes mellitus with diabetic polyneuropathy E11.42 [place] [id number] [place] [address] 45048- 6964 Oct, 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 [place] [address] 41736- 3388 Sep, Essential hypertension I10 ; Mixed hyperlipidemia E78.2 ; Leukocytosis, unspecified type D72.829 and Morbid obesity due to excess calories E66.01 [place] [address] 08747- 4856 Sep, [place] [address] 27848- 7463 Aug, Hypothyroidism, unspecified hypothyroidism type E03.9 [place] [address] 83559- 7988 Aug, Hirsutism L68.0 ; Primary insomnia F51.01 ; BMI 37.0-37.9, adult Z68.37 and Gastroesophageal reflux disease, esophagitis presence not specified K21.9 [place] [id number] [place] [address] 73282- 0506 Jul, [place] [id number] [place] [address] 49742- 6713 Jun, [place] [id number] [place] [address] 09905- 6586 Jun, [place] [address] 51669- 6098 Jun, Hypothyroidism, unspecified hypothyroidism type E03.9 [place] [id number] [place] [address] 84935- 9339 Jun, Type 2 diabetes mellitus with diabetic polyneuropathy E11.42 ; Fatty liver K76.0 ; Leukocytosis, unspecified type D72.829 ; Morbid obesity due to excess calories E66.01 ; Hypotension due to drugs I95.2 ; Non- intractable vomiting with nausea, unspecified vomiting type R11.2 and Mixed hyperlipidemia E78.2 [place] [id number] [place] [address] 11419- 2567 Jun, [place] [address] 09591- 1981 Apr, [place] [address] 94161- 2024 Apr, [place] [address] 30615- 0986 Mar, Eustachian tube dysfunction, bilateral H69.83 [place] [address] 69942- 9179 Mar, [place] [address] 91218- 6170 Feb, [place] [id number] [place] [address] 49407- 4639 Feb, Type 2 diabetes mellitus with diabetic polyneuropathy E11.42 ; Periodic limb movement sleep disorder G47.61 ; Hirsutism L68.0 ; Leukocytosis, unspecified type D72.829 and Postural dizziness R42 [place] [id number] [place] [address] 31120- 5567 Dec, Onychomycosis B35.1 and Foot ulcer L97.509 [place] [id number] [place] [address] 23860- 4375 Nov, [address] 16632- 6777 Nov, Preoperative cardiovascular examination Z01.810 ; Type 2 diabetes mellitus with diabetic polyneuropathy E11.42 and Essential hypertension I10 [place] [address] 84837- 6669 Oct, 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 ; Hammertoe M20.40 and DM neuro manif type II E11.49 [place] [id number] [place] [address] 03377- 6523 Oct, Impingement syndrome of right shoulder M75.41 [place] [id number] [place] [address] 89202- 7299 Sep, [place] [id number] [place] [address] 65614- 6078 Sep, [place] [id number] [place] [address] 01286- 9032 Sep, Leukocytosis, unspecified elevated WBC count D72.829 [place] [id number] [place] [address] 99856- 3439 Sep, Leukocytosis, unspecified elevated WBC count D72.829 [place] [id number] [place] [address] 18567- 9992 Sep, [place] [id number] [place] [address] 11630- 0197 Sep, [place] [id number] [place] [address] 26384- 0135 Sep, [place] [id number] [place] [address] 75470- 7008 Sep, Periodic limb movement sleep disorder G47.61 ; Leukocytosis , unspecified elevated WBC count D72.829 and Mixed hyperlipidemia E78.2 [place] [id number] [place] [address] 43779- 8534 Sep, Periodic limb movement sleep disorder G47.61 [place] [id number] [place] [address] 35904- 7522 Aug, [place] [id number] [place] [address] 22862- 9753 Aug, Type 2 diabetes mellitus with diabetic polyneuropathy E11.42 ; 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 and Major depressive disorder , recurrent episode, mild F33.0 [place] [address] 70928- 8563 Aug, Impingement syndrome of right shoulder M75.41 [place] [address] 99477- 2976 Aug, Shortness of breath R06.02 [place] [address] 06158- 9144 Aug, [place] [address] 31687- 4048 Aug, 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 and Type II or unspecified type diabetes mellitus with neurological manifestations, not stated as uncontrolled E11.[address] 49062- 2310 Aug, [place] [address] 61005- 2028 Jul, Presence of IVC filter Z95.828 [place] [address] 22754- 4975 Jul, Rotator cuff tear, right M75.101 [place] [address] 67676- 5199 Jul, [place] [address] 45234- 5330 Jul, [place] [address] 31023- 2117 Jul, [place] [address] 01841- 3014 Jun, Leukocytosis, unspecified elevated WBC count D72.829 and Mixed hyperlipidemia E78.2 [place] [address] 39328- 0324 Jun, Type 2 diabetes mellitus with diabetic polyneuropathy E11.42 ; Hypothyroidism, unspecified hypothyroidism type E03.9 ; Elevated ALT measurement R74.0 ; Mixed hyperlipidemia E78.2 ; Primary insomnia F51.01 ; Seizure-like activity R56.9 ; Presence of IVC filter Z95.828 and Elevated liver enzymes R74.8 [place] [address] 93549- 9601 Jun, [place] [address] 88433- 6359 Jun, Hammertoe M20.40 and 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 [place] [address] 76228- 3222 Jun, Elevated liver enzymes R74.8 [place] [address] 55514- 8020 Jun, Elevated liver enzymes R74.8 [place] [address] 48148- 5079 May, Elevated liver enzymes R74.8 [place] [address] 03573- 1977 May, Hypertension 401.9 ; Hirsutism 704.1 and Hypokalemia 276.8 [place] [id number] [place] [address] 12119- 1456 May, Hypertension 401.9 ; Hirsutism 704.1 and Hypokalemia 276.8 [place] [address] 55574- 9152 17 May, 2015 Impingement syndrome of right shoulder 726.2 and SLAP lesion of right shoulder 840.7 [place] [address] 67970- 5418 May, [place] [address] 30152- 2560 Mar, Decreased sex drive 799.81 and Foot pain, bilateral 729.5 [facility] [address] [address]- 9455 Mar, Impingement syndrome of right shoulder 726.2 [facility] [address] [address]- 4979 Mar, [facility] [address] [place] [address] [id number] Mar, Dental examination V72.2 [facility] [id number] [place] [address] 34489- 1036 11 Feb, 2015 Subacromial bursitis 726.19 [place] [id number] [place] [address] 69067- 2624 Feb, [place] [id number] [place] [address] 30337- 5547 January, [place] [id number] [place] [address] 85750- 0367 January, Muscle spasms of lower extremity 728.85 ; Diabetes mellitus , type II 250.00 ; Hypertension 401.9 ; Neuropathy 355.9 ; Hyperlipidemia LDL goal < 100 272.4 ; Hypothyroidism 244.9 ; Insomnia 780.52 ; History of Guillain- [place] syndrome V12.49 ; Acid reflux disease 530.81 [...]
--- OUTSIDE RECORDS SUMMARY | 2018-10-08 05:58 | XMS REPORT ---
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 Active 372449318756942 Problem Leukocytosis, unspecified type D72.829 Active 174135480 Problem Gastroesophageal reflux disease, esophagitis presence not specified K21.9 Active 669600711 Problem Morbid obesity due to excess calories E66.01 Active 303059402 Problem Type 2 diabetes mellitus with foot ulcer E11.621 Active 105394719556413 Problem Fatty liver K76.0 Active 721491192 Problem Dysthymic disorder F34.1 Active 76076726 Problem Tinnitus of both ears H93.13 Active 6229993302445 Problem Hirsutism L68.0 Active 104548282 Problem Hypothyroidism, unspecified hypothyroidism type E03.9 Active 53962301 Problem Essential hypertension I10 Active 80816295 Problem Non-pressure chronic ulcer of other part of right foot limited to breakdown of skin L97.511 Active 314486650 Problem Non-pressure chronic ulcer of other part of left foot limited to breakdown of skin L97.521 Active 947125212 Problem Sensorineural hearing loss (SNHL) of both ears H90.3 Active 195725107 Problem Constipation by delayed colonic transit K59.01 Active 73054959 Problem Mixed hyperlipidemia E78.2 Active 066667372 Problem Type 2 diabetes mellitus with diabetic polyneuropathy E11.42 Active 686647319 Problem Primary insomnia F51.01 Active 446045108 Problem Anxiety F41.9 Active 48743767 Problem Elevated ALT measurement R74.0 Active 683554097 Problem DM neuro manif type II E11.49 Active 43083826 Problem 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 Active 283345923 Problem Type II or unspecified type diabetes mellitus with neurological manifestations, not stated as uncontrolled E11.49 Active 31190339 ALLERGIES No Known Allergies ENCOUNTERS Encounter Location Date Diagnosis [facility] [id number] [place] [phone] May, 2018 [facility] [address] [address] 18 May, 2018 [place] [address] [address]- 5033 May, [place] [address] [address]- 2751 Apr, Right arm pain M79.601 [place] [address] 46687- 4190 Apr, [place] [address] [address]38- 2017 Apr, Dysthymic disorder F34.1 and Anxiety F41.9 [place] [id number] [place] [address] 00917- 2043 Mar, Acute pain of right knee M25.561 [place] [id number] [place] [address] 08614- 4485 Mar, [place] [id number] [place] [address] 97632- 0735 Mar, Acute pain of right knee M25.561 [place] [address] 5[address]6- 1928 Mar, Type 2 diabetes mellitus with diabetic polyneuropathy E11.42 [facility] [id number] [place] [address] [phone] Mar, Dental examination Z01.20 [place] [id number] [place] [address] 03897- 0482 Mar, Dysthymic disorder F34.1 and Anxiety F41.9 [place] [id number] [place] [address] 35884- 3930 Feb, [facility] [address] 17054- 3674 Feb, [facility] [address] 18999- 6831 Feb, Dental examination Z01.20 [place] [id number] [place] [address] 71784- 7874 Feb, [facility] [id number] [place] [address] 88729 -8563 Feb, Rib pain on left side R07.81 [place] [address] 56938- 8896 Feb, [facility] [id number] [place] [address] 67166- 6132 Feb, [place] [id number] [place] [address] 83857- 4924 January, [facility] [id number] [place] [address] [phone] January, Dental examination Z01.20 [facility] [id number] [place] [address] [phone] January, Dental caries K02.9 [facility] [id number] [place] [address] 35313- 6014 January, Type 2 diabetes mellitus with foot ulcer E11.621 ; Flexion deformity of finger joint of left hand M21.242 ; Chronic cough R05 ; Tinnitus of both ears H93.13 ; Sensorineural hearing loss (SNHL) of both ears H90.3 and Leukocytosis, unspecified type D72.829 [place] [id number] [place] [address] 71653- 7577 January, [facility] [address] [phone] Dec, Dental examination Z01.20 [place] [id number] [place] [address] 27464- 3122 Dec, Medicare annual wellness visit, initial Z00.00 ; DM neuro manif type II E11.49 ; Morbid obesity due to excess calories E66.01 ; Essential hypertension I10 ; Anxiety F41.9 ; 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 ; Encounter for immunization Z23 ; Cough R05 and 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 [place] [id number] [place] [address] 11284- 1759 16 Dec, 2017 Cough R05 [place] [id number] [place] [address] 13036- 2873 15 Nov, 2017 [place] [id number] [place] [address] 76248- 0430 05 Nov, 2017 Screening for breast cancer Z12.31 [place] [id number] [place] [address] 69113- 8068 12 Oct, 2017 [place] [id number] [place] [address] 02462- 2175 12 Oct, 2017 [place] [id number] [place] [address] 12032- 2304 07 Oct, 2017 Type 2 diabetes mellitus [...] foot limited to breakdown of skin L97.521 [place] [address] [address] Sep, [facility] [address] [address]- [address] Sep, [facility] [address] [address]- 0720 Aug, 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 [facility] [id number] [place] [address] 42654- 4903 Jul, [facility] [address] [address]- 0342 May, Type 2 diabetes mellitus with diabetic polyneuropathy E11.42 [facility] [id number] [address]- 0512 May, [facility] [id number] [address]- 8004 May, [facility] [address] [address]- 8492 Apr, Type 2 diabetes mellitus with diabetic polyneuropathy E11.42 and Morbid obesity due to excess calories E66.01 [facility] [address] [address]- 0707 Apr, [facility] [address] [address]- 5940 Apr, Type 2 diabetes mellitus with diabetic polyneuropathy E11.42 [facility] [address], [place] [address] Apr, [facility] [address], [place] [address]- 2886 Mar, [facility] [address], [place] [address]- 7984 Mar, [facility] [address] [address]- 1758 Mar, [facility] [address], [place] [address]- 8621 Mar, Type 2 diabetes mellitus with diabetic polyneuropathy E11.42 [facility] [address], [place] [address]- 4866 Feb, [facility] [address] [address]- 6249 Feb, [facility] [id number] [place] [address] 97587- 6915 Feb, Type 2 diabetes mellitus with diabetic polyneuropathy E11.42 ; Preoperative examination Z01.818 ; Wound, open, foot, left, initial encounter S91.302A ; Weight loss R63.4 and Tobacco abuse Z72.0 [facility] [id number] [address]- 4084 Nov, [facility] [id number] [place] [address] 53180- 5410 Nov, Pelvic pain R10.2 [facility] [address] [place] [address] 65992- 4306 Nov, Morbid obesity due to excess calories E66.01 [facility] [address], [place] [address]- 8136 Nov, [facility] [address] [address]- 9212 Nov, [facility] [address], [place] [address]- 3554 Nov, [facility] [address] [place] [address] 33396- 0792 Nov, [facility] [address], [place] [address]- 7254 Oct, [facility] [address], [place] [address]- 9195 Oct, [place] [id number] [place] [address] 67807- 8056 Oct, Well woman exam Z01.419 ; Pelvic pain R10.2 and Type 2 diabetes mellitus with diabetic polyneuropathy E11.42 [place] [id number] [place] [address] 44977- 0657 Oct, 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9, adult Z68.37 and Gastroesophageal reflux disease, esophagitis presence not specified K21.9 [place] [id number] [place] [address] 94384- 3067 Jul, [place] [id number] [place] [address] 19674- 0270 Jun, [place] [id number] [place] [address] 31232- 7321 Jun, [place] [id number] [place] [address] 94559- 1306 Jun, Hypothyroidism, unspecified hypothyroidism type E03.9 [place] [id number] [place] [address] 57398- 7731 Jun, Type 2 diabetes mellitus with diabetic polyneuropathy E11.42 ; Fatty liver K76.0 ; Leukocytosis, unspecified type D72.829 ; Morbid obesity due to excess calories E66.01 ; Hypotension due to drugs I95.2 ; Non- intractable vomiting with nausea, unspecified vomiting type R11.2 and Mixed hyperlipidemia E78.2 [place] [id number] [place] [address] 22942- 3189 Jun, [place] [address] 98353- 9370 Apr, [place] [address] 53523- 4774 Apr, [place] [address] 96648- 0992 Mar, Eustachian tube dysfunction, bilateral H69.[address] 08281- 7690 Mar, [place] [address] 52466- 8019 Feb, [place] [address] 12047- 0329 Feb, Type 2 diabetes mellitus with diabetic polyneuropathy E11.42 ; Periodic limb movement sleep disorder G47.61 ; Hirsutism L68.0 ; Leukocytosis, unspecified type D72.829 and Postural dizziness R42 [place] [id number] [place] [address] 20162- 3536 Dec, Onychomycosis B35.1 and Foot ulcer L97.509 [place] [address] 50629- 5111 Nov, [address] 73145- 1273 Nov, Preoperative cardiovascular examination Z01.810 ; Type 2 diabetes mellitus with diabetic polyneuropathy E11.42 and Essential hypertension I10 [address] 41157- 8525 Oct, 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 ; Hammertoe M20.40 and DM neuro manif type II E11.49 [place] [id number] [place] [address] 67831- 6654 11 Oct, 2015 Impingement syndrome of right shoulder M75.41 [place] [id number] [place] [address] 74985- 7932 Sep, [place] [id number] [place] [address] 92126- 6101 Sep, [place] [id number] [place] [address] 75764- 5487 Sep, Leukocytosis, unspecified elevated WBC count D72.829 [place] [id number] [place] [address] 35774- 4849 Sep, Leukocytosis, unspecified elevated WBC count D72.829 [place] [id number] [place] [address] 31065- 7442 Sep, [place] [id number] [place] [address] 78499- 1079 Sep, [place] [id number] [place] [address] 37263- 3183 Sep, [place] [id number] [place] [address] 95713- 4158 Sep, Periodic limb movement sleep disorder G47.61 ; Leukocytosis , unspecified elevated WBC count D72.829 and Mixed hyperlipidemia E78.2 [place] [id number] [place] [address] 64233- 2754 Sep, Periodic limb movement sleep disorder G47.61 [place] [id number] [place] [address] 80364- 6902 Aug, [place] [id number] [place] [address] 05578- 8755 Aug, Type 2 diabetes mellitus with diabetic polyneuropathy E11.42 ; 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 and Major depressive disorder , recurrent episode, mild F33.0 [place] [address] 15351- 8829 Aug, Impingement syndrome of right shoulder M75.41 [place] [address] 93636- 2552 Aug, Shortness of breath R06.02 [place] [address] 48558- 0767 Aug, [place] [address] 87058- 7834 Aug, 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 and Type II or unspecified type diabetes mellitus with neurological manifestations, not stated as uncontrolled E11.[address] 71534- 9634 Aug, [place] [address] 06575- 1259 Jul, Presence of IVC filter Z95.[address] 97779- 5440 Jul, Rotator cuff tear, right M75.101 [place] [address] 70451- 4982 Jul, [place] [address] 22738- 0758 Jul, [place] [address] 23060- 3513 Jul, [address] 72592- 9387 Jun, Leukocytosis, unspecified elevated WBC count D72.829 and Mixed hyperlipidemia E78.[address] 91882- 2882 Jun, Type 2 diabetes mellitus with diabetic polyneuropathy E11.42 ; Hypothyroidism, unspecified hypothyroidism type E03.9 ; Elevated ALT measurement R74.0 ; Mixed hyperlipidemia E78.2 ; Primary insomnia F51.01 ; Seizure-like activity R56.9 ; Presence of IVC filter Z95.828 and Elevated liver enzymes R74.8 [place] [id number] [place] [address] 62220- 7957 Jun, [place] [address] 94635- 8996 Jun, Hammertoe M20.40 and 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 [place] [address] 40303- 4254 Jun, Elevated liver enzymes R74.8 [place] [id number] [place] [address] 21987- 1629 Jun, Elevated liver enzymes R74.8 [place] [address] 33753- 5460 May, Elevated liver enzymes R74.8 [place] [address] 39563- 6770 May, Hypertension 401.9 ; Hirsutism 704.1 and Hypokalemia 276.8 [place] [id number] [place] [address] 93223- 3382 May, Hypertension 401.9 ; Hirsutism 704.1 and Hypokalemia 276.8 [place] [address] [place] [address] 68340- 8740 17 May, 2015 Impingement syndrome of right shoulder 726.2 and SLAP lesion of right shoulder 840.7 [place] [id number] [place] [address] 61091- 5867 May, [place] [id number] [place] [address] 04567- 1744 Mar, Decreased sex drive 799.81 and Foot pain, bilateral 729.5 [facility] [address], [place] [address]- 8842 Mar, Impingement syndrome of right shoulder 726.2 [place] [address] [place] [address] 91022- 6864 Mar, [facility] [address] [place] [address] [phone] Mar, Dental examination V72.2 [place] [id number] [place] [address] 97618- 2600 11 Feb, 2015 Subacromial bursitis 726.19 [place] [id number] [place] [address] 72945- 5652 Feb, [place] [id number] [place] [address] 49503- 5951 January, [place] [id number] [place] [address] 59732- 2855 January, Muscle spasms of lower extremity 728.85 ; Diabetes mellitus , type II 250.00 ; Hypertension 401.9 ; Neuropathy 355.9 ; Hyperlipidemia LDL goal < 100 272.4 ; Hypothyroidism 244.9 ; Insomnia 780.52 ; History of Guillain- [place] syndrome V12.49 ; Acid reflux disease 530.81 ; Presence of IVC filter V45.89 and Anxiety 300.00 IMMUNIZATIONS No Known Immunizations SOCIAL HISTORY Never Assessed REASON FOR VISIT possible bone spurs PLAN OF CARE VITAL SIGNS Blood pressure systolic 120 mmHg 2018-03-18 Blood pressure diastolic 78 mmHg 2018-03-18 MEDICATIONS Medication Instructions Dosage Frequency Start Date End Date Duration Status OneTouch Verio - TEST DAILY 50 Active Wellbutrin SR 100 mg Orally 3 times a day 1 tablet in the morning 8h Active Potassium Chloride 10 MEQ Orally Twice a day 1 capsule 12h 30 Active Pen [place] 32G X 4 MM as directed 24h Apr, Active Levothyroxine Sodium 50 MCG TAKE ONE TABLET BY MOUTH ONCE DAILY (MUST HAVE APPOINTMENT FOR REFILL) 30 Active Multivitamin Active Atorvastatin Calcium 40 mg Orally Once a day 1 tablet 24h 30 Active Baclofen 10 mg Orally Three times a day 1 tablet with food or milk as needed 8h Feb, Active Duloxetine HCl 60 MG TAKE ONE CAPSULE BY MOUTH ONCE DAILY (MUST HAVE APPOINTMENT FOR REFILL) 30 Active Promethazine HCl 25 MG TAKE ONE TABLET BY MOUTH EVERY 6 HOURS NEEDED 15 Active Ranitidine HCl 150 MG TAKE ONE TABLET BY MOUTH TWICE DAILY (MUST HAVE APPOINTMENT FOR REFILL) 30 Active Lidoderm 5 % Externally Once a day 1 patch to intact skin remove after 12 hours 24h Aug, Active Omeprazole 40 MG TAKE ONE CAPSULE BY MOUTH ONCE DAILY 90 Active Glucometer 1 kit subcutaneously Once a day OneTouch Verio meter 24h Apr Active Test strips Test Strips subcutaneously - test once daily OneTouch Verio test strips as directed Apr, Active Metformin HCl 500 MG TAKE ONE TABLET BY MOUTH TWICE DAILY WITH MEALS (MUST HAVE APPOINTMENT FOR REFILL) Active Ibuprofen 200 MG Orally every 6 hrs 1 tablet as needed 6h Active Lisinopril 5 MG TAKE 1 TABLET BY MOUTH ONCE DAILY 90 Active RESULTS No Results PROCEDURES Procedure Date Ordered Result Body Site SCREENING OF A PATIENT March 18, 2018 Billing Notes on claim March 18, 2018 INSTRUCTIONS MEDICATIONS ADMINISTERED No Known Medications [...]
--- OUTSIDE RECORDS SUMMARY | 2018-10-08 05:58 | XMS REPORT ---
Author Author ASPEN GEO Organization [facility] Address [address] [place] [address] Care Team Providers Care Poker In Name Role Phone LOULOU LOUISEHANY Unavailable PROBLEMS Type Condition ICD9-CM Code FYR42-KJ Code Onset Dates Condition Status SNOMED Code Problem Delayed gastric emptying K30 Active 645377146 Problem Chronic prescription benzodiazepine use Z79.899 Active 917720821 Problem Presence of IVC filter Z95.828 Active 961209674 Problem Periodic limb movement sleep disorder G47.61 Active 621336352 Problem History of [place] syndrome Z86.69 Active 145702233866466 Problem Leukocytosis, unspecified type D72.829 Active 910023154 Problem Gastroesophageal reflux disease, esophagitis presence not specified K21.9 Active 807202375 Problem Morbid obesity due to excess calories E66.01 Active 077874712 Problem Type 2 diabetes mellitus with foot ulcer E11.621 Active 019905465417180 Problem Fatty liver K76.0 Active 371487966 Problem Dysthymic disorder F34.1 Active 32873868 Problem Tinnitus of both ears H93.13 Active 9772178460772 Problem Hirsutism L68.0 Active 267237354 Problem Hypothyroidism, unspecified hypothyroidism type E03.9 Active 12324868 Problem Essential hypertension I10 Active 31235251 Problem Non-pressure chronic ulcer of other part of right foot limited to breakdown of skin L97.511 Active 671723575 Problem Non-pressure chronic ulcer of other part of left foot limited to breakdown of skin L97.521 Active 332055800 Problem Sensorineural hearing loss (SNHL) of both ears H90.3 Active 662790664 Problem Constipation by delayed colonic transit K59.01 Active 41362366 Problem Mixed hyperlipidemia E78.2 Active 539918212 Problem Type 2 diabetes mellitus with diabetic polyneuropathy E11.42 Active 188025069 Problem Primary insomnia F51.01 Active 698043621 Problem Anxiety F41.9 Active 79572743 Problem Elevated ALT measurement R74.0 Active 036794067 Problem DM neuro manif type II E11.49 Active 35385684 Problem 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 Active 936765900 Problem Type II or unspecified type diabetes mellitus with neurological manifestations, not stated as uncontrolled E11.49 Active 45445052 ALLERGIES No Information ENCOUNTERS Encounter Location Date Diagnosis [facility] [id number] [place] [address] [id number] May, 2018 [facility] [address] [address]- 9834 May, [facility] [address] 00911- 0926 May, [place] [address] 24798- 5418 Apr, Right arm pain M79.601 [place] [address] 95238- 7915 Apr, [facility] [id number] [place] [address] 13735- 1428 Apr, Dysthymic disorder F34.1 and Anxiety F41.9 [place] [address] 22719- 8833 Mar, Acute pain of right knee M25.561 [place] [id number] [place] [address] 06304- 2566 Mar, [facility] [id number] [place] [address] 17746- 7163 Mar, Acute pain of right knee M25.561 [facility] [address] 27771- 4899 Mar, Type 2 diabetes mellitus with diabetic polyneuropathy E11.42 [facility] [id number] [place] [address] [id number] Mar, Dental examination Z01.20 [facility] [address] [place] [address] Mar, Dysthymic disorder F34.1 and Anxiety F41.9 [facility] [address] 24865- 4047 Feb, [facility] [id number] [place] [address] 21744- 8043 Feb, [facility] [address] 27205- 9615 Feb, Dental examination Z01.20 [facility] [id number] [place] [address] 16629- 1089 Feb, [facility] [id number] [place] [address] 98812 -5015 Feb, Rib pain on left side R07.81 [facility] [address] 00471- 8685 Feb, [facility] [id number] [place] [address] 94928- 5135 Feb, [facility] [id number] [place] [address] 39382- 6187 January, [facility] [id number] [place] [address] [phone] January, Dental examination Z01.20 [facility] [id number] [place] [address] [phone] January, Dental caries K02.9 [facility] [id number] [place] [address] 26116- 5678 January, Type 2 diabetes mellitus with foot ulcer E11.621 ; Flexion deformity of finger joint of left hand M21.242 ; Chronic cough R05 ; Tinnitus of both ears H93.13 ; Sensorineural hearing loss (SNHL) of both ears H90.3 and Leukocytosis, unspecified type D72.829 [facility] [id number] [place] [address] 47094- 5333 January, [facility] [id number] [id number] Dec, Dental examination Z01.20 [place] [id number] [place] [address] [id number]- 3715 Dec, Medicare annual wellness visit, initial Z00.00 ; DM neuro manif type II E11.49 ; Morbid obesity due to excess calories E66.01 ; Essential hypertension I10 ; Anxiety F41.9 ; 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 ; Encounter for immunization Z23 ; Cough R05 and History of [place]ain[place] syndrome Z86.69 [place] [address] 11023- 3781 16 Dec, 2017 Cough R05 [place] [id number] [place] [address] 07649- 0735 15 Nov, 2017 [place] [id number] [place] [address] 88944- 1645 05 Nov, 2017 Screening for breast cancer Z12.31 [place] [id number] [place] [address] 71595- 0413 12 Oct, 2017 [place] [id number] [place] [address] 08147- 5955 12 Oct, 2017 [place] [id number] [place] [address] 12609- 9321 07 Oct, 2017 Type 2 diabetes mellitus [...] foot limited to breakdown of skin L97.521 [id number] [address]- 8287 Sep, [facility] [id number] [address] 3896 Sep, [facility] [id number] [place] [address] 27719- 4688 Aug, 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 [facility] [id number] [place] [address] 79424- 7121 Jul, [facility] [id number] [place] [address] 04696- 4027 May, Type 2 diabetes mellitus with diabetic polyneuropathy E11.42 [facility] [id number] [place] [address] 89346- 6372 May, [facility] [id number] [place] [address] 19626- 9052 May, [facility] [id number] [place] [address] 95843- 7761 Apr, Type 2 diabetes mellitus with diabetic polyneuropathy E11.42 and Morbid obesity due to excess calories E66.01 [facility] [address] [address]- 1433 Apr, [facility] [address] [address]- 7124 Apr, Type 2 diabetes mellitus with diabetic polyneuropathy E11.42 [facility] [address] [address] Apr, [facility] [address] [address]- 6012 Mar, [facility] [address] [address]- 3461 Mar, [facility] [address] [address]- 1339 Mar, [facility] [address] [address]- 5501 Mar, Type 2 diabetes mellitus with diabetic polyneuropathy E11.42 [facility] [id number] [place] [address] 16492- 6196 Feb, [facility] [address] [address]- 1703 Feb, [facility] [id number] [place] [address] 26977- 3112 Feb, Type 2 diabetes mellitus with diabetic polyneuropathy E11.42 ; Preoperative examination Z01.818 ; Wound, open, foot, left, initial encounter S91.302A ; Weight loss R63.4 and Tobacco abuse Z72.0 [facility] [address] [address]- 1050 Nov, [facility] [id number] [place] [address] 11375- 2070 Nov, Pelvic pain R10.2 [facility] [id number] [place] [address] 09432- 3138 Nov, Morbid obesity due to excess calories E66.01 [facility] [address] [address]- 4739 Nov, [facility] [address] [address]- 9997 Nov, [facility] [address] [address]- 0909 Nov, [facility] [address] [address]- 0170 Nov, [facility] [id number] [place] [address] 84261- 7022 Oct, [facility] [address] [address]- 4843 Oct, [facility] [id number] [place] [address] 52299- 3950 Oct, Well woman exam Z01.419 ; Pelvic pain R10.2 and Type 2 diabetes mellitus with diabetic polyneuropathy E11.42 [place] [id number] [place] [address] 97412- 0542 Oct, 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 [place] [address] 96817- 7685 Sep, Essential hypertension I10 ; Mixed hyperlipidemia E78.2 ; Leukocytosis, unspecified type D72.829 and Morbid obesity due to excess calories E66.01 [place] [address] 10430- 9027 Sep, [place] [address] 82195- 5478 Aug, Hypothyroidism, unspecified hypothyroidism type E03.9 [place] [address] 39246- 1385 Aug, Hirsutism L68.0 ; Primary insomnia F51.01 ; BMI 37.0-37.9, adult Z68.37 and Gastroesophageal reflux disease, esophagitis presence not specified K21.9 [place] [id number] [place] [address] 77483- 1133 Jul, [place] [id number] [place] [address] 08495- 7060 Jun, [place] [id number] [place] [address] 33400- 8060 Jun, [place] [address] 37243- 4857 Jun, Hypothyroidism, unspecified hypothyroidism type E03.9 [place] [id number] [place] [address] 70705- 4906 Jun, Type 2 diabetes mellitus with diabetic polyneuropathy E11.42 ; Fatty liver K76.0 ; Leukocytosis, unspecified type D72.829 ; Morbid obesity due to excess calories E66.01 ; Hypotension due to drugs I95.2 ; Non- intractable vomiting with nausea, unspecified vomiting type R11.2 and Mixed hyperlipidemia E78.2 [place] [id number] [place] [address] 37704- 1327 Jun, [place] [address] 92641- 9432 Apr, [place] [address] 77223- 4364 Apr, [place] [address] 50337- 5170 Mar, Eustachian tube dysfunction, bilateral H69.83 [place] [address] 75832- 0050 Mar, [place] [address] 04624- 3547 Feb, [place] [id number] [place] [address] 21452- 7060 Feb, Type 2 diabetes mellitus with diabetic polyneuropathy E11.42 ; Periodic limb movement sleep disorder G47.61 ; Hirsutism L68.0 ; Leukocytosis, unspecified type D72.829 and Postural dizziness R42 [place] [id number] [place] [address] 84129- 1416 Dec, Onychomycosis B35.1 and Foot ulcer L97.509 [place] [id number] [place] [address] 30722- 6026 Nov, [address] [address]- 2584 Nov, Preoperative cardiovascular examination Z01.810 ; Type 2 diabetes mellitus with diabetic polyneuropathy E11.42 and Essential hypertension I10 [place] [address] 96285- 1855 Oct, 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 ; Hammertoe M20.40 and DM neuro manif type II E11.49 [place] [id number] [place] [address] 53671- 4135 Oct, Impingement syndrome of right shoulder M75.41 [place] [id number] [place] [address] 87646- 7744 Sep, [place] [id number] [place] [address] 43348- 3610 Sep, [place] [address] [place] [address] 99160- 8089 Sep, Leukocytosis, unspecified elevated WBC count D72.829 [place] [address] [place] [address] 03110- 5604 Sep, Leukocytosis, unspecified elevated WBC count D72.829 [place] [id number] [place] [address] 16871- 0356 Sep, [place] [id number] [place] [address] 25136- 2612 Sep, [place] [id number] [place] [address] 53506- 3728 Sep, [place] [id number] [place] [address] 93723- 9885 Sep, Periodic limb movement sleep disorder G47.61 ; Leukocytosis , unspecified elevated WBC count D72.829 and Mixed hyperlipidemia E78.2 [place] [id number] [place] [address] 73628- 6174 Sep, Periodic limb movement sleep disorder G47.61 [place] [id number] [place] [address] 41284- 6213 Aug, [place] [id number] [place] [address] 20612- 5068 Aug, Type 2 diabetes mellitus with diabetic polyneuropathy E11.42 ; History of [place]ain[place] syndrome Z86.69 and Major depressive disorder , recurrent episode, mild F33.0 [place] [address] 68437- 6586 Aug, Impingement syndrome of right shoulder M75.41 [place] [address] 98582- 9084 Aug, Shortness of breath R06.02 [place] [address] 19868- 7994 Aug, [place] [address] 51328- 4311 Aug, 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 and Type II or unspecified type diabetes mellitus with neurological manifestations, not stated as uncontrolled E11.[address] 41878- 8742 Aug, [place] [address] 83975- 6972 Jul, Presence of IVC filter Z95.828 [place] [address] 11487- 2573 Jul, Rotator cuff tear, right M75.101 [place] [address] 57794- 0542 Jul, [place] [address] 42892- 1425 Jul, [place] [address] 95972- 0647 Jul, [place] [address] 49833- 9148 Jun, Leukocytosis, unspecified elevated WBC count D72.829 and Mixed hyperlipidemia E78.2 [place] [address] 17980- 3150 Jun, Type 2 diabetes mellitus with diabetic polyneuropathy E11.42 ; Hypothyroidism, unspecified hypothyroidism type E03.9 ; Elevated ALT measurement R74.0 ; Mixed hyperlipidemia E78.2 ; Primary insomnia F51.01 ; Seizure-like activity R56.9 ; Presence of IVC filter Z95.828 and Elevated liver enzymes R74.8 [place] [address] 92338- 5961 Jun, [place] [address] 12993- 1681 Jun, Hammertoe M20.40 and 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 [place] [address] 50767- 9072 Jun, Elevated liver enzymes R74.8 [place] [address] 17330- 7937 Jun, Elevated liver enzymes R74.8 [place] [address] 82988- 3728 May, Elevated liver enzymes R74.8 [place] [address] 16561- 7667 May, Hypertension 401.9 ; Hirsutism 704.1 and Hypokalemia 276.8 [place] [id number] [place] [address] 70477- 0794 May, Hypertension 401.9 ; Hirsutism 704.1 and Hypokalemia 276.8 [place] [address] 59295- 3617 17 May, 2015 Impingement syndrome of right shoulder 726.2 and SLAP lesion of right shoulder 840.7 [place] [address] 31417- 9291 May, [place] [address] 20953- 3222 Mar, Decreased sex drive 799.81 and Foot pain, bilateral 729.5 [facility] [address] [address]- 0927 Mar, Impingement syndrome of right shoulder 726.2 [facility] [address] [address]- 9355 Mar, [facility] [id number] [place] [address] [id number] Mar, Dental examination V72.2 [facility] [id number] [place] [address] 61810- 8466 11 Feb, 2015 Subacromial bursitis 726.19 [place] [id number] [place] [address] 49458- 9478 Feb, [place] [id number] [place] [address] 30466- 5510 January, [place] [id number] [place] [address] 38949- 6413 January, Muscle spasms of lower extremity 728.85 ; Diabetes mellitus , type II 250.00 ; Hypertension 401.9 ; Neuropathy 355.9 ; Hyperlipidemia LDL goal < 100 272.4 ; Hypothyroidism 244.9 ; Insomnia 780.52 ; History of Guillain[place] syndrome V12.49 ; Acid reflux disease 530.81 ; Presence of IVC filter V45.89 and Anxiety 300.00 IMMUNIZATIONS No Known Immunizations SOCIAL HISTORY Never Assessed REASON FOR VISIT Refill Request PLAN OF CARE VITAL SIGNS MEDICATIONS Medication Instructions Dosage Frequency Start Date End Date Duration Status OneTouch Verio - TEST DAILY 50 Active RESULTS No Results PROCEDURES No Known [...]
--- OUTSIDE RECORDS SUMMARY | 2018-10-08 05:59 | XMS REPORT ---
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 Active 190772479038446 Problem Leukocytosis, unspecified type D72.829 Active 728572413 Problem Gastroesophageal reflux disease, esophagitis presence not specified K21.9 Active 102801528 Problem Morbid obesity due to excess calories E66.01 Active 432933022 Problem Type 2 diabetes mellitus with foot ulcer E11.621 Active 249401487628309 Problem Fatty liver K76.0 Active 629040913 Problem Dysthymic disorder F34.1 Active 45437824 Problem Tinnitus of both ears H93.13 Active 4112261251121 Problem Hirsutism L68.0 Active 547322718 Problem Hypothyroidism, unspecified hypothyroidism type E03.9 Active 20164923 Problem Essential hypertension I10 Active 71347214 Problem Non-pressure chronic ulcer of other part of right foot limited to breakdown of skin L97.511 Active 778835732 Problem Non-pressure chronic ulcer of other part of left foot limited to breakdown of skin L97.521 Active 554488763 Problem Sensorineural hearing loss (SNHL) of both ears H90.3 Active 304334606 Problem Constipation by delayed colonic transit K59.01 Active 22897331 Problem Mixed hyperlipidemia E78.2 Active 860694452 Problem Type 2 diabetes mellitus with diabetic polyneuropathy E11.42 Active 105342731 Problem Primary insomnia F51.01 Active 125841628 Problem Anxiety F41.9 Active 73763960 Problem Elevated ALT measurement R74.0 Active 935199310 Problem DM neuro manif type II E11.49 Active 36466795 Problem 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 Active 790437952 Problem Type II or unspecified type diabetes mellitus with neurological manifestations, not stated as uncontrolled E11.49 Active 66183813 ALLERGIES No Information ENCOUNTERS Encounter Location Date Diagnosis [facility] [id number] [place] [address] [id number] May, 2018 [facility] [place] [address] 33676- 5699 18 May, 2018 [facility] [place] [address] 10674- 6665 May, [facility] [place] [address] 75948- 7159 Apr, [facility] [place] [address] 17823- 4904 Apr, [facility] [place] [address] 79785- 4203 Apr, Dysthymic disorder F34.1 and Anxiety F41.9 [address] 03063- 1649 Mar, Acute pain of right knee M25.561 [facility] [place] [id number] [place] [address] 16230- 0177 Mar, [facility] [place] [id number] [place] [address] 49695- 6069 Mar, Acute pain of right knee M25.561 [facility] [place] [address] 79510- 4580 09 Mar, 2018 Type 2 diabetes mellitus with diabetic polyneuropathy E11.42 [facility] [id number] [place] [address] [phone] Mar, Dental examination Z01.20 [facility] [place] [address] 03425- 5945 Mar, Dysthymic disorder F34.1 and Anxiety F41.9 [facility] [place] [id number] [place] [address] 46134- 3285 Feb, [facility] [place] [id number] [place] [address] 72597- 6346 Feb, [facility] [place] [id number] [place] [address] 83612- 7438 Feb, Dental examination Z01.20 [facility] [place] [id number] [place] [address] 29457- 9023 Feb, [facility] [address] 74170 -9382 Feb, Rib pain on left side R07.81 [place] [id number] [place] [address] 86125- 1628 Feb, [facility] [place] [id number] [place] [address] 38356- 0761 Feb, [facility] [place] [id number] [place] [address] 75154- 5021 January, [facility] [id number] [place] [address] [phone] January, Dental examination Z01.20 [facility] [id number] [place] [address] [id number] January, Dental caries K02.9 [facility] [place] [id number] [place] [address] 78253- 8506 January, Type 2 diabetes mellitus with foot ulcer E11.621 ; Flexion deformity of finger joint of left hand M21.242 ; Chronic cough R05 ; Tinnitus of both ears H93.13 ; Sensorineural hearing loss (SNHL) of both ears H90.3 and Leukocytosis, unspecified type D72.829 [place] [id number] [place] [address] 58893- 2723 January, [facility] [id number] [id number] Dec, Dental examination Z01.20 [place] [id number] [place] [address] 82402- 4806 Dec, Medicare annual wellness visit, initial Z00.00 ; DM neuro manif type II E11.49 ; Morbid obesity due to excess calories E66.01 ; Essential hypertension I10 ; Anxiety F41.9 ; 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 ; Encounter for immunization Z23 ; Cough R05 and 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 [place] [id number] [place] [address] 58615- 9905 16 Dec, 2017 Cough R05 [place] [id number] [place] [address] 76111- 5322 15 Nov, 2017 [place] [id number] [place] [address] 00751- 2230 05 Nov, 2017 Screening for breast cancer Z12.31 [place] [id number] [place] [address] 93512- 6546 12 Oct, 2017 [place] [id number] [place] [address] 56577- 5348 12 Oct, 2017 [place] [id number] [place] [address] 31148- 1219 07 Oct, 2017 Type 2 diabetes mellitus [...] foot limited to breakdown of skin L97.521 [id number] [place] [address] 78223- 5398 Sep, [facility] [place] [id number] [place] [address] 04262- 7159 Sep, [facility] [place] [id number] [place] [address] 50753- 3367 Aug, 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 [facility] [place] [id number] [place] [address] 21687- 1291 Jul, [facility] [place] [id number] [place] [address] 49084- 0786 May, Type 2 diabetes mellitus with diabetic polyneuropathy E11.42 [facility] [place] [id number] [place] [address] 75911- 3255 18 May, 2017 [facility] [place] [id number] [place] [address] 00207- 5346 May, [facility] [place] [id number] [place] [address] 47429- 1525 Apr, Type 2 diabetes mellitus with diabetic polyneuropathy E11.42 and Morbid obesity due to excess calories E66.01 [facility] [place] [id number] [place] [address] 25967- 9441 Apr, [facility] [place] [id number] [place] [address] 66113- 0711 Apr, Type 2 diabetes mellitus with diabetic polyneuropathy E11.42 [facility] [address] [address] Apr, [facility] [place] [address] [place] [address] 64314- 8630 Mar, [facility] [place] [id number] [place] [address] 23526- 8096 Mar, [facility] [place] [address] [address]- 8256 Mar, [facility] [place] [id number] [place] [address] 23639- 1492 Mar, Type 2 diabetes mellitus with diabetic polyneuropathy E11.42 [facility] [place] [id number] [place] [address] 27625- 8759 Feb, [facility] [place] [id number] [place] [address] 29516- 0006 Feb, [facility] [place] [id number] [place] [address] 59151- 3664 Feb, Type 2 diabetes mellitus with diabetic polyneuropathy E11.42 ; Preoperative examination Z01.818 ; Wound, open, foot, left, initial encounter S91.302A ; Weight loss R63.4 and Tobacco abuse Z72.0 [facility] [place] [id number] [place] [address] 36205- 2085 Nov, [facility] [place] [id number] [place] [address] 22323- 4153 Nov, Pelvic pain R10.2 [facility] [place] [id number] [place] [address] 32038- 4567 Nov, Morbid obesity due to excess calories E66.01 [facility] [place] [id number] [place] [address] 30303- 8284 Nov, [facility] [place] [id number] [place] [address] 45708- 9616 Nov, [facility] [place] [id number] [place] [address] 98759- 5623 Nov, [facility] [place] [id number] [place] [address] 35589- 4376 Nov, [facility] [place] [id number] [place] [address] 68921- 5579 Oct, [facility] [place] [id number] [place] [address] 88833- 3656 Oct, [facility] [place] [id number] [place] [address] 61621- 6531 Oct, Well woman exam Z01.419 ; Pelvic pain R10.2 and Type 2 diabetes mellitus with diabetic polyneuropathy E11.42 [address] [id number] [place] [address] 83684- 0298 Oct, 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 [address] [address] 85710- 5283 Sep, Essential hypertension I10 ; Mixed hyperlipidemia E78.2 ; Leukocytosis, unspecified type D72.829 and Morbid obesity due to excess calories E66.[address] 43211- 7878 Sep, [address] [address] 55687- 9576 Aug, Hypothyroidism, unspecified hypothyroidism type E03.9 [address] [address] 02673- 5842 Aug, Hirsutism L68.0 ; Primary insomnia F51.01 ; BMI 37.0-37.9, adult Z68.37 and Gastroesophageal reflux disease, esophagitis presence not specified K21.9 [id number] [place] [address] 13819- 0333 Jul, [id number] [place] [address] 12298- 5465 Jun, [address] [id number] [place] [address] 48706- 3899 Jun, [address] 70846- 4255 Jun, Hypothyroidism, unspecified hypothyroidism type E03.9 [address] [id number] [place] [address] 40936- 1414 Jun, Type 2 diabetes mellitus with diabetic polyneuropathy E11.42 ; Fatty liver K76.0 ; Leukocytosis, unspecified type D72.829 ; Morbid obesity due to excess calories E66.01 ; Hypotension due to drugs I95.2 ; Non- intractable vomiting with nausea, unspecified vomiting type R11.2 and Mixed hyperlipidemia E78.2 [id number] [place] [address] 35650- 0436 Jun, [place] [id number] [place] [address] 44430- 8328 Apr, [address] 18404- 7569 Apr, [place] [address] 34991- 5042 Mar, Eustachian tube dysfunction, bilateral H69.83 [address] [address] 90940- 5099 Mar, [place] [address] 41515- 0378 Feb, [place] [id number] [place] [address] 28582- 5248 Feb, Type 2 diabetes mellitus with diabetic polyneuropathy E11.42 ; Periodic limb movement sleep disorder G47.61 ; Hirsutism L68.0 ; Leukocytosis, unspecified type D72.829 and Postural dizziness R42 [address] [id number] [place] [address] 99805- 9623 Dec, Onychomycosis B35.1 and Foot ulcer L97.509 [place] [id number] [place] [address] 13106- 9592 Nov, [address] [address] 81375- 8243 Nov, Preoperative cardiovascular examination Z01.810 ; Type 2 diabetes mellitus with diabetic polyneuropathy E11.42 and Essential hypertension I10 [place] [id number] [place] [address] 26073- 5368 Oct, 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 ; Hammertoe M20.40 and DM neuro manif type II E11.49 [address] [id number] [place] [address] 17911- 7721 11 Oct, 2015 Impingement syndrome of right shoulder M75.41 [address] [id number] [place] [address] 92710- 9156 Sep, [address] [id number] [place] [address] 73469- 3571 Sep, [place] [id number] [place] [address] 01118- 1871 Sep, Leukocytosis, unspecified elevated WBC count D72.829 [address] [id number] [place] [address] 76004- 8961 Sep, Leukocytosis, unspecified elevated WBC count D72.829 [address] [id number] [place] [address] 21238- 6721 Sep, [place] [id number] [place] [address] 17188- 1328 Sep, [address] [id number] [place] [address] 19063- 1827 Sep, [address] [id number] [place] [address] 00733- 1253 Sep, Periodic limb movement sleep disorder G47.61 ; Leukocytosis , unspecified elevated WBC count D72.829 and Mixed hyperlipidemia E78.2 [id number] [place] [address] 21674- 0815 Sep, Periodic limb movement sleep disorder G47.61 [address] [id number] [place] [address] 06269- 3255 Aug, [place] [id number] [place] [address] 61259- 3612 Aug, Type 2 diabetes mellitus with diabetic polyneuropathy E11.42 ; 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 and Major depressive disorder , recurrent episode, mild F33.0 [address] [address] 48827- 1679 Aug, Impingement syndrome of right shoulder M75.41 [address] [address] 38330- 2877 Aug, Shortness of breath R06.02 [address] [address] 58738- 8555 Aug, [place] [address] 89800- 0745 Aug, 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 and Type II or unspecified type diabetes mellitus with neurological manifestations, not stated as uncontrolled E11.49 [address] [address] 84565- 6377 Aug, [place] [address] 01245- 4923 Jul, Presence of IVC filter Z95.828 [address] [address] 20282- 7257 Jul, Rotator cuff tear, right M75.101 [address] [address] 47006- 4390 Jul, [address] [address] 01874- 6445 Jul, [place] [address] 34946- 1388 Jul, [place] [address] 29330- 0106 Jun, Leukocytosis, unspecified elevated WBC count D72.829 and Mixed hyperlipidemia E78.2 [address] [address] 54247- 6750 Jun, Type 2 diabetes mellitus with diabetic polyneuropathy E11.42 ; Hypothyroidism, unspecified hypothyroidism type E03.9 ; Elevated ALT measurement R74.0 ; Mixed hyperlipidemia E78.2 ; Primary insomnia F51.01 ; Seizure-like activity R56.9 ; Presence of IVC filter Z95.828 and Elevated liver enzymes R74.8 [address] [address] 19726- 5866 Jun, [place] [address] 36541- 5878 Jun, Hammertoe M20.40 and 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 [address] [address] 64511- 8619 Jun, Elevated liver enzymes R74.8 [place] [address] 84240- 4625 Jun, Elevated liver enzymes R74.8 [place] [address] 56480- 4106 May, Elevated liver enzymes R74.8 [address] [address] 06499- 2883 May, Hypertension 401.9 ; Hirsutism 704.1 and Hypokalemia 276.8 [address] [id number] [place] [address] 10816- 8823 May, Hypertension 401.9 ; Hirsutism 704.1 and Hypokalemia 276.8 [place] [address] 47422- 9231 17 May, 2015 Impingement syndrome of right shoulder 726.2 and SLAP lesion of right shoulder 840.7 [place] [address] 32348- 5086 May, [place] [address] 19536- 0900 Mar, Decreased sex drive 799.81 and Foot pain, bilateral 729.5 [facility] [place] [id number] [address]- 2335 Mar, Impingement syndrome of right shoulder 726.2 [facility] [place] [address], [place] [address]- 5120 Mar, [facility] [address] [id number] Mar, Dental examination V72.2 [facility] [place] [id number] [place] [address] 82808- 3707 11 Feb, 2015 Subacromial bursitis 726.19 [place] [id number] [place] [address] 66303- 0017 Feb, [facility] [place] [address] [place] [address] 96536- 6788 January, [facility] [place] [id number] [place] [address] 10449- 7597 January, Muscle spasms of lower extremity 728.85 ; Diabetes mellitus , type II 250.00 ; Hypertension 401.9 ; Neuropathy 355.9 ; Hyperlipidemia LDL goal < 100 272.4 ; Hypothyroidism 244.9 ; Insomnia 780.52 ; History of Guillain- Rosendale syndrome V12.49 ; Acid reflux disease 530.81 ; Presence of IVC filter V45.89 and Anxiety 300.00 IMMUNIZATIONS No Known Immunizations SOCIAL HISTORY Never Assessed REASON FOR VISIT Needs appt PLAN OF CARE VITAL SIGNS MEDICATIONS Unknown [...]
--- OUTSIDE RECORDS SUMMARY | 2018-10-08 05:59 | XMS REPORT ---
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 Active 090350648219653 Problem Leukocytosis, unspecified type D72.829 Active 124746079 Problem Gastroesophageal reflux disease, esophagitis presence not specified K21.9 Active 052051737 Problem Morbid obesity due to excess calories E66.01 Active 680604483 Problem Type 2 diabetes mellitus with foot ulcer E11.621 Active 572012687344154 Problem Fatty liver K76.0 Active 453806621 Problem Dysthymic disorder F34.1 Active 91648877 Problem Tinnitus of both ears H93.13 Active 6673439824752 Problem Hirsutism L68.0 Active 267449552 Problem Hypothyroidism, unspecified hypothyroidism type E03.9 Active 63350191 Problem Essential hypertension I10 Active 16785108 Problem Non-pressure chronic ulcer of other part of right foot limited to breakdown of skin L97.511 Active 254411741 Problem Non-pressure chronic ulcer of other part of left foot limited to breakdown of skin L97.521 Active 161109727 Problem Sensorineural hearing loss (SNHL) of both ears H90.3 Active 643596975 Problem Constipation by delayed colonic transit K59.01 Active 50728336 Problem Mixed hyperlipidemia E78.2 Active 184513984 Problem Type 2 diabetes mellitus with diabetic polyneuropathy E11.42 Active 590304968 Problem Primary insomnia F51.01 Active 045730032 Problem Anxiety F41.9 Active 59411424 Problem Elevated ALT measurement R74.0 Active 545386642 Problem DM neuro manif type II E11.49 Active 49401243 Problem 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 Active 330557080 Problem Type II or unspecified type diabetes mellitus with neurological manifestations, not stated as uncontrolled E11.49 Active 99629117 ALLERGIES No Information ENCOUNTERS Encounter Location Date Diagnosis [facility] [id number] [place] [address] [id number] 26 May, 2018 [facility] [address] [address]- 3284 18 May, 2018 [facility] [address] 22212- 4420 May, [facility] [address] 95471- 8284 Apr, [facility] [address] 29047- 7973 Apr, [facility] [address] 29059- 6550 Apr, Dysthymic disorder F34.1 and Anxiety F41.9 [place] [address] 59890- 3534 Mar, Acute pain of right knee M25.561 [facility] [id number] [place] [address] 18697- 0654 Mar, [facility] [id number] [place] [address] 04136- 0850 Mar, Acute pain of right knee M25.561 [facility] [address] 18615- 6198 09 Mar, 2018 Type 2 diabetes mellitus with diabetic polyneuropathy E11.42 [facility] [id number] [place] [address] [id number] Mar, Dental examination Z01.20 [facility] [address] 94169- 9680 Mar, Dysthymic disorder F34.1 and Anxiety F41.9 [facility] [id number] [place] [address] 40599- 9825 Feb, [facility] [id number] [place] [address] 07990- 6125 Feb, [facility] [id number] [place] [address] 44149- 4426 Feb, Dental examination Z01.20 [facility] [id number] [place] [address] 73572- 6475 Feb, [facility] [address] [address] Feb, Rib pain on left side R07.81 [place] [id number] [place] [address] 41998- 2773 Feb, [facility] [id number] [place] [address] 85520- 4099 Feb, [facility] [id number] [place] [address] 40304- 4770 January, [facility] [id number] [place] [address] [id number] January, Dental examination Z01.20 [facility] [id number] [place] [address] [id number] January, Dental caries K02.9 [facility] [id number] [place] [address] 44240- 3974 January, Type 2 diabetes mellitus with foot ulcer E11.621 ; Flexion deformity of finger joint of left hand M21.242 ; Chronic cough R05 ; Tinnitus of both ears H93.13 ; Sensorineural hearing loss (SNHL) of both ears H90.3 and Leukocytosis, unspecified type D72.829 [place] [id number] [place] [address] 22791- 1988 January, [facility] [id number] [id number] Dec, Dental examination Z01.20 [place] [id number] [place] [address] 64017- 5461 Dec, Medicare annual wellness visit, initial Z00.00 ; DM neuro manif type II E11.49 ; Morbid obesity due to excess calories E66.01 ; Essential hypertension I10 ; Anxiety F41.9 ; 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 ; Encounter for immunization Z23 ; Cough R05 and 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 [place] [id number] [place] [address] 13071- 9786 16 Dec, 2017 Cough R05 [place] [id number] [place] [address] 07247- 3244 15 Nov, 2017 [place] [id number] [place] [address] 91990- 5499 05 Nov, 2017 Screening for breast cancer Z12.31 [place] [id number] [place] [address] 11622- 5477 12 Oct, 2017 [place] [id number] [place] [address] 69468- 8116 12 Oct, 2017 [place] [id number] [place] [address] 87719- 9049 07 Oct, 2017 Type 2 diabetes mellitus [...] foot limited to breakdown of skin L97.521 [id number] [place] [address] 76655- 9231 Sep, [facility] [id number] [place] [address] 08258- 3728 Sep, [facility] [id number] [place] [address] 11590- 1683 Aug, 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 [facility] [id number] [place] [address] 78237- 4947 Jul, [facility] [id number] [place] [address] 35870- 5069 May, Type 2 diabetes mellitus with diabetic polyneuropathy E11.42 [facility] [id number] [place] [address] 96263- 1860 18 May, 2017 [facility] [id number] [place] [address] 63400- 5956 May, [facility] [id number] [place] [address] 49430- 6303 Apr, Type 2 diabetes mellitus with diabetic polyneuropathy E11.42 and Morbid obesity due to excess calories E66.01 [facility] [id number] [place] [address] 02311- 8593 Apr, [facility] [id number] [place] [address] 75654- 1675 Apr, Type 2 diabetes mellitus with diabetic polyneuropathy E11.42 [facility] [address] [address] Apr, [facility] [id number] [place] [address] 94024- 4564 Mar, [facility] [id number] [place] [address] 69240- 5957 Mar, [facility] [address] [address] 3135 Mar, [facility] [id number] [place] [address] 42777- 5313 Mar, Type 2 diabetes mellitus with diabetic polyneuropathy E11.42 [facility] [id number] [place] [address] 47647- 1170 Feb, [facility] [id number] [place] [address] 35906- 4888 Feb, [facility] [id number] [place] [address] 04282- 1792 Feb, Type 2 diabetes mellitus with diabetic polyneuropathy E11.42 ; Preoperative examination Z01.818 ; Wound, open, foot, left, initial encounter S91.302A ; Weight loss R63.4 and Tobacco abuse Z72.0 [facility] [id number] [place] [address] 65359- 4330 Nov, [facility] [id number] [place] [address] 47771- 1996 Nov, Pelvic pain R10.2 [facility] [id number] [place] [address] 41817- 8725 Nov, Morbid obesity due to excess calories E66.01 [facility] [id number] [place] [address] 30607- 6526 Nov, [facility] [id number] [place] [address] 66609- 7566 Nov, [facility] [id number] [place] [address] 61411- 4955 Nov, [facility] [id number] [place] [address] 40496- 7300 Nov, [facility] [id number] [place] [address] 78620- 9268 Oct, [facility] [id number] [place] [address] 07060- 6148 Oct, [facility] [id number] [place] [address] 90769- 9476 Oct, Well woman exam Z01.419 ; Pelvic pain R10.2 and Type 2 diabetes mellitus with diabetic polyneuropathy E11.42 [place] [id number] [place] [address] 21731- 5178 Oct, 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 [place] [address] 58337- 4754 Sep, Essential hypertension I10 ; Mixed hyperlipidemia E78.2 ; Leukocytosis, unspecified type D72.829 and Morbid obesity due to excess calories E66.[address] 22385- 5259 Sep, [place] [address] 15631- 7987 Aug, Hypothyroidism, unspecified hypothyroidism type E03.9 [place] [address] 56259- 7028 Aug, Hirsutism L68.0 ; Primary insomnia F51.01 ; BMI 37.0-37.9, adult Z68.37 and Gastroesophageal reflux disease, esophagitis presence not specified K21.9 [place] [id number] [place] [address] 68790- 6013 Jul, [place] [id number] [place] [address] 80566- 3271 Jun, [place] [id number] [place] [address] 80342- 5928 Jun, [place] [address] 29998- 4724 Jun, Hypothyroidism, unspecified hypothyroidism type E03.9 [place] [id number] [place] [address] 63939- 9778 Jun, Type 2 diabetes mellitus with diabetic polyneuropathy E11.42 ; Fatty liver K76.0 ; Leukocytosis, unspecified type D72.829 ; Morbid obesity due to excess calories E66.01 ; Hypotension due to drugs I95.2 ; Non- intractable vomiting with nausea, unspecified vomiting type R11.2 and Mixed hyperlipidemia E78.2 [place] [id number] [place] [address] 88731- 1509 Jun, [place] [id number] [place] [address] 30174- 0563 Apr, [place] [address] 81765- 9314 Apr, [place] [address] 31017- 6868 Mar, Eustachian tube dysfunction, bilateral H69.83 [place] [address] 45790- 6949 Mar, [place] [address] 58499- 7360 Feb, [place] [id number] [place] [address] 86096- 8071 Feb, Type 2 diabetes mellitus with diabetic polyneuropathy E11.42 ; Periodic limb movement sleep disorder G47.61 ; Hirsutism L68.0 ; Leukocytosis, unspecified type D72.829 and Postural dizziness R42 [place] [id number] [place] [address] 77474- 3532 Dec, Onychomycosis B35.1 and Foot ulcer L97.509 [place] [id number] [place] [address] 01146- 6571 Nov, [place] [address] 97501- 6799 Nov, Preoperative cardiovascular examination Z01.810 ; Type 2 diabetes mellitus with diabetic polyneuropathy E11.42 and Essential hypertension I10 [place] [id number] [place] [address] 72438- 4984 Oct, 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 ; Hammertoe M20.40 and DM neuro manif type II E11.49 [place] [id number] [place] [address] 24888- 7560 11 Oct, 2015 Impingement syndrome of right shoulder M75.41 [place] [id number] [place] [address] 52363- 6716 Sep, [place] [id number] [place] [address] 09226- 9242 Sep, [place] [id number] [place] [address] 13768- 6441 Sep, Leukocytosis, unspecified elevated WBC count D72.829 [place] [id number] [place] [address] 20703- 2603 Sep, Leukocytosis, unspecified elevated WBC count D72.829 [place] [id number] [place] [address] 93172- 8025 Sep, [place] [id number] [place] [address] 97315- 0585 Sep, [place] [id number] [place] [address] 69677- 5478 Sep, [place] [id number] [place] [address] 76472- 3944 Sep, Periodic limb movement sleep disorder G47.61 ; Leukocytosis , unspecified elevated WBC count D72.829 and Mixed hyperlipidemia E78.2 [place] [id number] [place] [address] 82893- 6880 Sep, Periodic limb movement sleep disorder G47.61 [place] [id number] [place] [address] 51480- 1366 Aug, [place] [id number] [place] [address] 57612- 3736 Aug, Type 2 diabetes mellitus with diabetic polyneuropathy E11.42 ; 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 and Major depressive disorder , recurrent episode, mild F33.0 [place] [address] 54018- 7301 Aug, Impingement syndrome of right shoulder M75.41 [place] [address] 49897- 9821 Aug, Shortness of breath R06.02 [place] [address] 78750- 4441 Aug, [place] [address] 87461- 0729 Aug, 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 and Type II or unspecified type diabetes mellitus with neurological manifestations, not stated as uncontrolled E11.49 [place] [address] 77646- 9657 Aug, [place] [address] 32716- 7572 Jul, Presence of IVC filter Z95.828 [place] [address] 15948- 5603 Jul, Rotator cuff tear, right M75.101 [place] [address] 00058- 9626 Jul, [place] [address] 25426- 0999 Jul, [place] [address] 35193- 6287 Jul, [place] [address] 27994- 6663 Jun, Leukocytosis, unspecified elevated WBC count D72.829 and Mixed hyperlipidemia E78.2 [place] [address] 42389- 0317 Jun, Type 2 diabetes mellitus with diabetic polyneuropathy E11.42 ; Hypothyroidism, unspecified hypothyroidism type E03.9 ; Elevated ALT measurement R74.0 ; Mixed hyperlipidemia E78.2 ; Primary insomnia F51.01 ; Seizure-like activity R56.9 ; Presence of IVC filter Z95.828 and Elevated liver enzymes R74.8 [place] [address] 88505- 0580 Jun, [place] [address] 71214- 4464 Jun, Hammertoe M20.40 and 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 [place] [address] 65052- 9589 Jun, Elevated liver enzymes R74.8 [place] [address] 10455- 6976 Jun, Elevated liver enzymes R74.8 [place] [address] 19249- 0930 May, Elevated liver enzymes R74.8 [place] [address] 10702- 0177 May, Hypertension 401.9 ; Hirsutism 704.1 and Hypokalemia 276.8 [place] [id number] [place] [address] 23616- 7239 May, Hypertension 401.9 ; Hirsutism 704.1 and Hypokalemia 276.8 [place] [address] 19750- 3701 17 May, 2015 Impingement syndrome of right shoulder 726.2 and SLAP lesion of right shoulder 840.7 [place] [address] 22777- 1041 May, [place] [address] 35612- 0532 Mar, Decreased sex drive 799.81 and Foot pain, bilateral 729.5 [facility] [id number] [address]- 7938 Mar, Impingement syndrome of right shoulder 726.2 [facility] [address] [place] [address]- 2352 Mar, [facility] [address] [id number] Mar, Dental examination V72.2 [facility] [id number] [place] [address] 09322- 8011 11 Feb, 2015 Subacromial bursitis 726.19 [place] [id number] [place] [address] 21180- 6436 Feb, [facility] [address] [place] [address] 20783- 3957 January, [facility] [id number] [place] [address] 36915- 2152 January, Muscle spasms of lower extremity 728.85 ; Diabetes mellitus , type II 250.00 ; Hypertension 401.9 ; Neuropathy 355.9 ; Hyperlipidemia LDL goal < 100 272.4 ; Hypothyroidism 244.9 ; Insomnia 780.52 ; History of Guillain- [place] syndrome V12.49 ; Acid reflux disease 530.81 [...]
--- OUTSIDE RECORDS SUMMARY | 2018-10-08 06:00 | XMS REPORT ---
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 Active 967492859559919 Problem Leukocytosis, unspecified type D72.829 Active 313994230 Problem Gastroesophageal reflux disease, esophagitis presence not specified K21.9 Active 159891681 Problem Morbid obesity due to excess calories E66.01 Active 650309074 Problem Type 2 diabetes mellitus with foot ulcer E11.621 Active 248530295970518 Problem Fatty liver K76.0 Active 573989019 Problem Dysthymic disorder F34.1 Active 41993994 Problem Tinnitus of both ears H93.13 Active 9446974345786 Problem Hirsutism L68.0 Active 880674675 Problem Hypothyroidism, unspecified hypothyroidism type E03.9 Active 51328072 Problem Essential hypertension I10 Active 11329360 Problem Non-pressure chronic ulcer of other part of right foot limited to breakdown of skin L97.511 Active 343957581 Problem Non-pressure chronic ulcer of other part of left foot limited to breakdown of skin L97.521 Active 579105116 Problem Sensorineural hearing loss (SNHL) of both ears H90.3 Active 892688227 Problem Constipation by delayed colonic transit K59.01 Active 58118349 Problem Mixed hyperlipidemia E78.2 Active 895106650 Problem Type 2 diabetes mellitus with diabetic polyneuropathy E11.42 Active 956351258 Problem Primary insomnia F51.01 Active 507871578 Problem Anxiety F41.9 Active 61628775 Problem Elevated ALT measurement R74.0 Active 638321205 Problem DM neuro manif type II E11.49 Active 84901100 Problem 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 Active 033124645 Problem Type II or unspecified type diabetes mellitus with neurological manifestations, not stated as uncontrolled E11.49 Active 29585783 ALLERGIES No Information ENCOUNTERS Encounter Location Date Diagnosis [facility] [id number] [place] [address] [id number] 26 May, 2018 [facility] [address] [address]- [address] 18 May, 2018 [facility] [address] 25943- 0095 May, [facility] [address] 41164- 0097 Apr, [facility] [address] 50548- 8588 Apr, [facility] [address] 98395- 5311 Apr, Dysthymic disorder F34.1 and Anxiety F41.9 [place] [address] 59942- 2644 Mar, Acute pain of right knee M25.561 [facility] [id number] [place] [address] 27479- 7959 Mar, [facility] [id number] [place] [address] 56548- 6891 Mar, Acute pain of right knee M25.561 [facility] [address] 06590- 0428 09 Mar, 2018 Type 2 diabetes mellitus with diabetic polyneuropathy E11.42 [facility] [id number] [place] [address] [id number] Mar, Dental examination Z01.20 [facility] [address] 12975- 8484 Mar, Dysthymic disorder F34.1 and Anxiety F41.9 [facility] [id number] [place] [address] 28742- 2691 Feb, [facility] [id number] [place] [address] 45400- 0007 Feb, [facility] [id number] [place] [address] 31316- 1187 Feb, Dental examination Z01.20 [facility] [id number] [place] [address] 70016- 1739 Feb, [facility] [address] 25[address] -1317 Feb, Rib pain on left side R07.81 [place] [id number] [place] [address] 62151- 5417 Feb, [facility] [id number] [place] [address] 33169- 6190 Feb, [facility] [id number] [place] [address] 51373- 3948 January, [facility] [id number] [place] [address] [id number] January, Dental examination Z01.20 [facility] [id number] [place] [address] [id number] January, Dental caries K02.9 [facility] [id number] [place] [address] 85679- 8446 January, Type 2 diabetes mellitus with foot ulcer E11.621 ; Flexion deformity of finger joint of left hand M21.242 ; Chronic cough R05 ; Tinnitus of both ears H93.13 ; Sensorineural hearing loss (SNHL) of both ears H90.3 and Leukocytosis, unspecified type D72.829 [place] [id number] [place] [address] 57700- 5249 January, [facility] [id number] [id number] Dec, Dental examination Z01.20 [place] [id number] [place] [address] 32693- 7510 Dec, Medicare annual wellness visit, initial Z00.00 ; DM neuro manif type II E11.49 ; Morbid obesity due to excess calories E66.01 ; Essential hypertension I10 ; Anxiety F41.9 ; 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 ; Encounter for immunization Z23 ; Cough R05 and 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 [place] [id number] [place] [address] 72823- 1052 16 Dec, 2017 Cough R05 [place] [id number] [place] [address] 21125- 0645 15 Nov, 2017 [place] [id number] [place] [address] 68852- 4815 05 Nov, 2017 Screening for breast cancer Z12.31 [place] [id number] [place] [address] 42339- 5433 12 Oct, 2017 [facility] [place] [id number] [place] [address] 60507- 7571 12 Oct, 2017 [place] [id number] [place] [address] 36959- 6519 07 Oct, 2017 Type 2 diabetes mellitus [...] foot limited to breakdown of skin L97.521 [id number] [place] [address] 85914- 9259 Sep, [facility] [id number] [place] [address] 71784- 8140 Sep, [facility] [id number] [place] [address] 54263- 5534 Aug, 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 [facility] [id number] [place] [address] 16956- 3508 Jul, [facility] [id number] [place] [address] 14460- 6715 May, Type 2 diabetes mellitus with diabetic polyneuropathy E11.42 [facility] [id number] [place] [address] 75742- 2986 18 May, 2017 [facility] [id number] [place] [address] 45875- 7042 May, [facility] [id number] [place] [address] 73101- 7829 Apr, Type 2 diabetes mellitus with diabetic polyneuropathy E11.42 and Morbid obesity due to excess calories E66.01 [facility] [id number] [place] [address] 94326- 8665 Apr, [facility] [id number] [place] [address] 96576- 6096 Apr, Type 2 diabetes mellitus with diabetic polyneuropathy E11.[address] [facility] [address] [address] Apr, [facility] [id number] [place] [address] 73770- 5541 Mar, [facility] [id number] [place] [address] 50901- 6788 Mar, [facility] [address] [address]- 8983 Mar, [facility] [id number] [place] [address] 63458- 0799 Mar, Type 2 diabetes mellitus with diabetic polyneuropathy E11.42 [facility] [id number] [place] [address] 05727- 2706 Feb, [facility] [id number] [place] [address] 99911- 4806 Feb, [facility] [id number] [place] [address] 02738- 6017 Feb, Type 2 diabetes mellitus with diabetic polyneuropathy E11.42 ; Preoperative examination Z01.818 ; Wound, open, foot, left, initial encounter S91.302A ; Weight loss R63.4 and Tobacco abuse Z72.0 [facility] [id number] [place] [address] 21407- 0241 Nov, [facility] [id number] [place] [address] 21628- 6986 Nov, Pelvic pain R10.2 [facility] [id number] [place] [address] 90654- 0075 Nov, Morbid obesity due to excess calories E66.01 [facility] [id number] [place] [address] 54906- 0485 Nov, [facility] [id number] [place] [address] 60797- 8760 Nov, [facility] [id number] [place] [address] 01094- 1998 Nov, [facility] [id number] [place] [address] 11865- 1708 Nov, [facility] [id number] [place] [address] 86728- 7789 Oct, [facility] [id number] [place] [address] 26289- 9874 Oct, [facility] [id number] [place] [address] 52150- 2752 Oct, Well woman exam Z01.419 ; Pelvic pain R10.2 and Type 2 diabetes mellitus with diabetic polyneuropathy E11.42 [place] [id number] [place] [address] 60920- 5156 Oct, 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 [place] [address] 21596- 8060 Sep, Essential hypertension I10 ; Mixed hyperlipidemia E78.2 ; Leukocytosis, unspecified type D72.829 and Morbid obesity due to excess calories E66.[address] 89407- 7262 Sep, [place] [address] 78788- 3878 Aug, Hypothyroidism, unspecified hypothyroidism type E03.9 [place] [address] 84349- 8443 Aug, Hirsutism L68.0 ; Primary insomnia F51.01 ; BMI 37.0-37.9, adult Z68.37 and Gastroesophageal reflux disease, esophagitis presence not specified K21.9 [place] [id number] [place] [address] 10305- 7211 Jul, [place] [id number] [place] [address] 05748- 6824 Jun, [place] [id number] [place] [address] 92412- 0264 Jun, [place] [address] 55437- 7080 Jun, Hypothyroidism, unspecified hypothyroidism type E03.9 [place] [id number] [place] [address] 53778- 6640 Jun, Type 2 diabetes mellitus with diabetic polyneuropathy E11.42 ; Fatty liver K76.0 ; Leukocytosis, unspecified type D72.829 ; Morbid obesity due to excess calories E66.01 ; Hypotension due to drugs I95.2 ; Non- intractable vomiting with nausea, unspecified vomiting type R11.2 and Mixed hyperlipidemia E78.2 [place] [id number] [place] [address] 81767- 9067 Jun, [place] [id number] [place] [address] 59414- 5846 Apr, [place] [address] 28627- 8656 Apr, [place] [address] 41536- 7788 Mar, Eustachian tube dysfunction, bilateral H69.83 [place] [address] 98665- 1353 Mar, [place] [address] 48445- 3153 Feb, [place] [id number] [place] [address] 68065- 3869 Feb, Type 2 diabetes mellitus with diabetic polyneuropathy E11.42 ; Periodic limb movement sleep disorder G47.61 ; Hirsutism L68.0 ; Leukocytosis, unspecified type D72.829 and Postural dizziness R42 [place] [id number] [place] [address] 49772- 3148 Dec, Onychomycosis B35.1 and Foot ulcer L97.509 [place] [id number] [place] [address] 60423- 8775 Nov, [place] [address] 85428- 0026 Nov, Preoperative cardiovascular examination Z01.810 ; Type 2 diabetes mellitus with diabetic polyneuropathy E11.42 and Essential hypertension I10 [place] [id number] [place] [address] 34397- 9544 Oct, 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 ; Hammertoe M20.40 and DM neuro manif type II E11.49 [place] [id number] [place] [address] 28227- 4823 11 Oct, 2015 Impingement syndrome of right shoulder M75.41 [place] [id number] [place] [address] 14196- 9416 Sep, [place] [id number] [place] [address] 75940- 5234 Sep, [place] [id number] [place] [address] 56692- 0579 Sep, Leukocytosis, unspecified elevated WBC count D72.829 [place] [id number] [place] [address] 98365- 1692 Sep, Leukocytosis, unspecified elevated WBC count D72.829 [place] [id number] [place] [address] 47883- 6470 Sep, [place] [id number] [place] [address] 18821- 5089 Sep, [place] [id number] [place] [address] 73770- 9554 Sep, [place] [id number] [place] [address] 45818- 7561 Sep, Periodic limb movement sleep disorder G47.61 ; Leukocytosis , unspecified elevated WBC count D72.829 and Mixed hyperlipidemia E78.2 [place] [id number] [place] [address] 37004- 1757 Sep, Periodic limb movement sleep disorder G47.61 [place] [id number] [place] [address] 72994- 1573 Aug, [place] [id number] [place] [address] 25909- 8055 Aug, Type 2 diabetes mellitus with diabetic polyneuropathy E11.42 ; 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 and Major depressive disorder , recurrent episode, mild F33.0 [place] [address] 33472- 7005 Aug, Impingement syndrome of right shoulder M75.41 [place] [address] 84984- 7950 Aug, Shortness of breath R06.02 [place] [address] 22363- 4407 Aug, [place] [address] 05812- 0007 Aug, 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 and Type II or unspecified type diabetes mellitus with neurological manifestations, not stated as uncontrolled E11.49 [place] [address] 67932- 6765 Aug, [place] [address] 70045- 7310 Jul, Presence of IVC filter Z95.828 [place] [address] 14400- 2079 Jul, Rotator cuff tear, right M75.101 [place] [address] 83005- 8039 Jul, [place] [address] 41490- 2104 Jul, [place] [address] 91385- 8183 Jul, [place] [address] 39393- 0700 Jun, Leukocytosis, unspecified elevated WBC count D72.829 and Mixed hyperlipidemia E78.2 [place] [address] 62124- 4489 Jun, Type 2 diabetes mellitus with diabetic polyneuropathy E11.42 ; Hypothyroidism, unspecified hypothyroidism type E03.9 ; Elevated ALT measurement R74.0 ; Mixed hyperlipidemia E78.2 ; Primary insomnia F51.01 ; Seizure-like activity R56.9 ; Presence of IVC filter Z95.828 and Elevated liver enzymes R74.8 [place] [address] 15117- 1262 Jun, [place] [address] 02729- 0565 Jun, Hammertoe M20.40 and 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 [place] [address] 86140- 6361 Jun, Elevated liver enzymes R74.8 [place] [address] 14298- 4997 Jun, Elevated liver enzymes R74.8 [place] [address] 12345- 0740 May, Elevated liver enzymes R74.8 [place] [address] 81252- 3525 May, Hypertension 401.9 ; Hirsutism 704.1 and Hypokalemia 276.8 [place] [id number] [place] [address] 38675- 9484 May, Hypertension 401.9 ; Hirsutism 704.1 and Hypokalemia 276.8 [place] [address] 39114- 9926 17 May, 2015 Impingement syndrome of right shoulder 726.2 and SLAP lesion of right shoulder 840.7 [place] [address] 77575- 7048 May, [place] [address] 52095- 3460 Mar, Decreased sex drive 799.81 and Foot pain, bilateral 729.5 [facility] [id number] [address]- 5535 Mar, Impingement syndrome of right shoulder 726.2 [facility] [address] [address]- 8258 Mar, [facility] [address] [id number] Mar, Dental examination V72.2 [facility] [id number] [place] [address] 76281- 9827 11 Feb, 2015 Subacromial bursitis 726.19 [place] [id number] [place] [address] 01407- 6353 Feb, [facility] [id number] [place] [address] 42679- 5371 January, [facility] [id number] [place] [address] 28678- 4329 January, Muscle spasms of lower extremity 728.85 ; Diabetes mellitus , type II 250.00 ; Hypertension 401.9 ; Neuropathy 355.9 ; Hyperlipidemia LDL goal < 100 272.4 ; Hypothyroidism 244.9 ; Insomnia 780.52 ; History of Guillain- Glendale syndrome V12.49 ; Acid reflux disease 530.81 ; Presence of IVC filter V45.89 and Anxiety 300.00 IMMUNIZATIONS No Known Immunizations SOCIAL HISTORY Never Assessed REASON FOR VISIT Triage-ALTHEA Sánchez PLAN OF CARE VITAL SIGNS MEDICATIONS Unknown [...]
--- OUTSIDE RECORDS SUMMARY | 2018-10-08 06:00 | XMS REPORT ---
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 710664936155838 Problem Leukocytosis, unspecified type D72.829 Active 829077600 Problem Gastroesophageal reflux disease, esophagitis presence not specified K21.9 Active 174916297 Problem Morbid obesity due to excess calories E66.01 Active 112429982 Problem Type 2 diabetes mellitus with foot ulcer E11.621 Active 313737613153775 Problem Fatty liver K76.0 Active 499508995 Problem Dysthymic disorder F34.1 Active 75285521 Problem Tinnitus of both ears H93.13 Active 7064006843388 Problem Hirsutism L68.0 Active 485857053 Problem Hypothyroidism, unspecified hypothyroidism type E03.9 Active 80465418 Problem Essential hypertension I10 Active 77185397 Problem Non-pressure chronic ulcer of other part of right foot limited to breakdown of skin L97.511 Active 566579882 Problem Non-pressure chronic ulcer of other part of left foot limited to breakdown of skin L97.521 Active 843380896 Problem Sensorineural hearing loss (SNHL) of both ears H90.3 Active 655182278 Problem Constipation by delayed colonic transit K59.01 Active 15259419 Problem Mixed hyperlipidemia E78.2 Active 564933692 Problem Type 2 diabetes mellitus with diabetic polyneuropathy E11.42 Active 017581295 Problem Primary insomnia F51.01 Active 885262971 Problem Anxiety F41.9 Active 38716997 Problem Elevated ALT measurement R74.0 Active 515313220 Problem DM neuro manif type II E11.49 Active 84516071 Problem 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 Active 442728535 Problem Type II or unspecified type diabetes mellitus with neurological manifestations, not stated as uncontrolled E11.49 Active 61518546 ALLERGIES No Information ENCOUNTERS Encounter Location Date Diagnosis [facility] [id number] [place] [address] [id number] 26 May, 2018 [facility] [address] 88[address]- [address]18 18 May, 2018 [facility] [address] 5[address]- 9962 May, [facility] [address] 03446- 7451 Apr, [facility] [address] 87493- 9839 Apr, [facility] [address] 89838- 9104 Apr, Dysthymic disorder F34.1 and Anxiety F41.9 [address] [address] 55918- 5614 Mar, Acute pain of right knee M25.561 [facility] [id number] [place] [address] 97377- 5134 Mar, [facility] [id number] [place] [address] 76950- 3152 Mar, Acute pain of right knee M25.561 [facility] [address] 72817- 8634 09 Mar, 2018 Type 2 diabetes mellitus with diabetic polyneuropathy E11.42 [facility] [id number] [place] [address] [id number] Mar, Dental examination Z01.20 [facility] [address] 27522- 1286 Mar, Dysthymic disorder F34.1 and Anxiety F41.9 [facility] [id number] [place] [address] 72611- 8562 Feb, [facility] [id number] [place] [address] 00014- 1659 Feb, [facility] [id number] [place] [address] 31222- 3991 Feb, Dental examination Z01.20 [facility] [id number] [place] [address] 30446- 3115 Feb, [facility] [address] [address] Feb, Rib pain on left side R07.81 [place] [id number] [place] [address] 93391- 7278 Feb, [facility] [id number] [place] [address] 26768- 5619 Feb, [facility] [id number] [place] [address] 57932- 6709 January, [facility] [id number] [place] [address] [phone] January, Dental examination Z01.20 [facility] [id number] [place] [address] [id number] January, Dental caries K02.9 [facility] [id number] [place] [address] 01018- 7655 January, Type 2 diabetes mellitus with foot ulcer E11.621 ; Flexion deformity of finger joint of left hand M21.242 ; Chronic cough R05 ; Tinnitus of both ears H93.13 ; Sensorineural hearing loss (SNHL) of both ears H90.3 and Leukocytosis, unspecified type D72.829 [facility] [facility] [id number] [place] [address] 94721- 1581 January, [facility] [id number] [id number] Dec, Dental examination Z01.20 [place] [id number] [place] [address] 16751- 8186 Dec, Medicare annual wellness visit, initial Z00.00 ; DM neuro manif type II E11.49 ; Morbid obesity due to excess calories E66.01 ; Essential hypertension I10 ; Anxiety F41.9 ; 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 ; Encounter for immunization Z23 ; Cough R05 and 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 [place] [id number] [place] [address] 46685- 7559 16 Dec, 2017 Cough R05 [facility] [id number] [place] [address] 32343- 5121 15 Nov, 2017 [place] [facility] [id number] [place] [address] 57027- 4947 05 Nov, 2017 Screening for breast cancer Z12.31 [facility] [facility] [id number] [place] [address] 30122- 8484 12 Oct, 2017 [facility] [id number] [place] [address] 11267- 5045 12 Oct, 2017 [facility] [id number] [place] [address] 01323- 3257 07 Oct, 2017 Type 2 diabetes mellitus [...] foot limited to breakdown of skin L97.521 [id number] [place] [address] 07367- 6567 Sep, [facility] [id number] [place] [address] 88086- 4901 Sep, [facility] [id number] [place] [address] 96455- 5664 Aug, 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 [facility] [id number] [place] [address] 03704- 9108 Jul, [facility] [id number] [place] [address] 29371- 9932 May, Type 2 diabetes mellitus with diabetic polyneuropathy E11.42 [facility] [id number] [place] [address] 53013- 0078 18 May, 2017 [facility] [id number] [place] [address] 84908- 8916 May, [facility] [id number] [place] [address] 11593- 1953 Apr, Type 2 diabetes mellitus with diabetic polyneuropathy E11.42 and Morbid obesity due to excess calories E66.01 [facility] [id number] [place] [address] 62313- 3391 Apr, [facility] [id number] [place] [address] 62986- 4167 Apr, Type 2 diabetes mellitus with diabetic polyneuropathy E11.42 [facility] [address] [address] Apr, [facility] [id number] [place] [address] 05115- 5900 Mar, [facility] [id number] [place] [address] 80990- 0007 Mar, [facility] [address] [address]- 7769 Mar, [facility] [id number] [place] [address] 24497- 3197 Mar, Type 2 diabetes mellitus with diabetic polyneuropathy E11.42 [facility] [id number] [place] [address] 77970- 9455 Feb, [facility] [id number] [place] [address] 35225- 9852 Feb, [facility] [id number] [place] [address] 63914- 1002 Feb, Type 2 diabetes mellitus with diabetic polyneuropathy E11.42 ; Preoperative examination Z01.818 ; Wound, open, foot, left, initial encounter S91.302A ; Weight loss R63.4 and Tobacco abuse Z72.0 [facility] [id number] [place] [address] 04541- 2308 Nov, [facility] [id number] [place] [address] 18737- 7150 Nov, Pelvic pain R10.2 [facility] [id number] [place] [address] 49389- 0168 Nov, Morbid obesity due to excess calories E66.01 [facility] [id number] [place] [address] 62276- 8235 Nov, [facility] [id number] [place] [address] 92942- 4002 Nov, [facility] [id number] [place] [address] 70208- 6005 Nov, [facility] [id number] [place] [address] 00831- 3320 Nov, [facility] [id number] [place] [address] 84498- 4598 Oct, [facility] [id number] [place] [address] 71681- 5407 Oct, [facility] [id number] [place] [address] 26387- 6206 Oct, Well woman exam Z01.419 ; Pelvic pain R10.2 and Type 2 diabetes mellitus with diabetic polyneuropathy E11.42 [place] [id number] [place] [address] 27303- 8960 Oct, 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 [address] [address] 99333- 9271 Sep, Essential hypertension I10 ; Mixed hyperlipidemia E78.2 ; Leukocytosis, unspecified type D72.829 and Morbid obesity due to excess calories E66.[address] 50703- 7659 Sep, [place] [address] 37784- 7982 Aug, Hypothyroidism, unspecified hypothyroidism type E03.9 [place] [address] 30569- 8780 Aug, Hirsutism L68.0 ; Primary insomnia F51.01 ; BMI 37.0-37.9, adult Z68.37 and Gastroesophageal reflux disease, esophagitis presence not specified K21.9 [place] [id number] [place] [address] 09550- 3806 Jul, [place] [id number] [place] [address] 13936- 4816 Jun, [address] [id number] [place] [address] 64642- 5821 Jun, [place] [address] 43826- 8983 Jun, Hypothyroidism, unspecified hypothyroidism type E03.9 [place] [id number] [place] [address] 56871- 6593 Jun, Type 2 diabetes mellitus with diabetic polyneuropathy E11.42 ; Fatty liver K76.0 ; Leukocytosis, unspecified type D72.829 ; Morbid obesity due to excess calories E66.01 ; Hypotension due to drugs I95.2 ; Non- intractable vomiting with nausea, unspecified vomiting type R11.2 and Mixed hyperlipidemia E78.2 [place] [id number] [place] [address] 03386- 6054 Jun, [place] [id number] [place] [address] 68337- 5469 Apr, [address] [address] 87836- 5109 Apr, [place] [address] 32330- 1355 Mar, Eustachian tube dysfunction, bilateral H69.83 [address] [place] 08100- 7263 Mar, [place] [address] 71719- 0296 Feb, [place] [id number] [place] [address] 57416- 0547 Feb, Type 2 diabetes mellitus with diabetic polyneuropathy E11.42 ; Periodic limb movement sleep disorder G47.61 ; Hirsutism L68.0 ; Leukocytosis, unspecified type D72.829 and Postural dizziness R42 [address] [place] [id number] [place] [address] 62394- 7938 Dec, Onychomycosis B35.1 and Foot ulcer L97.509 [address] [place] [id number] [place] [address] 16072- 0461 Nov, [address] [place] [address] 54431- 6753 Nov, Preoperative cardiovascular examination Z01.810 ; Type 2 diabetes mellitus with diabetic polyneuropathy E11.42 and Essential hypertension I10 [address] [id number] [place] [address] 00813- 6531 Oct, 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 ; Hammertoe M20.40 and DM neuro manif type II E11.49 [address] [id number] [place] [address] 34901- 2098 11 Oct, 2015 Impingement syndrome of right shoulder M75.41 [address] [id number] [place] [address] 59676- 1296 Sep, [place] [id number] [place] [address] 77548- 3927 Sep, [place] [id number] [place] [address] 14191- 7945 Sep, Leukocytosis, unspecified elevated WBC count D72.829 [place] [id number] [place] [address] 43527- 9841 Sep, Leukocytosis, unspecified elevated WBC count D72.829 [address] [id number] [place] [address] 96332- 1963 Sep, [address] [id number] [place] [address] 66641- 8387 Sep, [place] [id number] [place] [address] 14575- 8820 Sep, [place] [id number] [place] [address] 72765- 7307 Sep, Periodic limb movement sleep disorder G47.61 ; Leukocytosis , unspecified elevated WBC count D72.829 and Mixed hyperlipidemia E78.2 [place] [id number] [place] [address] 43822- 2999 Sep, Periodic limb movement sleep disorder G47.61 [place] [id number] [place] [address] 34691- 3689 Aug, [place] [id number] [place] [address] 51229- 6863 Aug, Type 2 diabetes mellitus with diabetic polyneuropathy E11.42 ; 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 and Major depressive disorder , recurrent episode, mild F33.0 [place] [address] 99252- 9884 Aug, Impingement syndrome of right shoulder M75.41 [place] [address] 89906- 9676 Aug, Shortness of breath R06.02 [place] [address] 44329- 4011 Aug, [place] [address] 67668- 1464 Aug, 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 and Type II or unspecified type diabetes mellitus with neurological manifestations, not stated as uncontrolled E11.49 [address] [address] 44716- 0544 Aug, [place] [address] 52260- 6399 Jul, Presence of IVC filter Z95.828 [address] [address] 31333- 4877 Jul, Rotator cuff tear, right M75.101 [place] [address] 55785- 4120 Jul, [place] [address] 83222- 7495 Jul, [place] [address] 56591- 3227 Jul, [place] [address] 78463- 8854 Jun, Leukocytosis, unspecified elevated WBC count D72.829 and Mixed hyperlipidemia E78.2 [place] [address] 42112- 0769 Jun, Type 2 diabetes mellitus with diabetic polyneuropathy E11.42 ; Hypothyroidism, unspecified hypothyroidism type E03.9 ; Elevated ALT measurement R74.0 ; Mixed hyperlipidemia E78.2 ; Primary insomnia F51.01 ; Seizure-like activity R56.9 ; Presence of IVC filter Z95.828 and Elevated liver enzymes R74.8 [address] [address] 44230- 8841 Jun, [place] [address] 05004- 8611 Jun, Hammertoe M20.40 and 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 [address] [address] 44056- 8091 Jun, Elevated liver enzymes R74.8 [place] [address] 90539- 8606 Jun, Elevated liver enzymes R74.8 [place] [address] 30321- 9623 May, Elevated liver enzymes R74.8 [place] [address] 50704- 4567 May, Hypertension 401.9 ; Hirsutism 704.1 and Hypokalemia 276.8 [place] [id number] [place] [address] 11502- 6701 May, Hypertension 401.9 ; Hirsutism 704.1 and Hypokalemia 276.8 [address] [address] 62653- 5872 17 May, 2015 Impingement syndrome of right shoulder 726.2 and SLAP lesion of right shoulder 840.7 [address] [address] 45671- 8504 May, [place] [address] 83861- 7784 Mar, Decreased sex drive 799.81 and Foot pain, bilateral 729.5 [facility] [address] [address]- 7524 Mar, Impingement syndrome of right shoulder 726.2 [facility] [address] [address]- 5726 Mar, [facility] [id number] [place] [address] [id number] Mar, Dental examination V72.2 [facility] [id number] [place] [address] 36829- 0203 11 Feb, 2015 Subacromial bursitis 726.19 [place] [id number] [place] [address] 60261- 0015 Feb, [place] [id number] [place] [address] 07084- 8239 January, [place] [id number] [place] [address] 54261- 2053 January, Muscle spasms of lower extremity 728.85 ; Diabetes mellitus , type II 250.00 ; Hypertension 401.9 ; Neuropathy 355.9 ; Hyperlipidemia LDL goal < 100 272.4 ; Hypothyroidism 244.9 ; Insomnia 780.52 ; History of Guillain- Kasilof syndrome V12.49 ; Acid reflux disease 530.81 ; Presence of IVC filter V45.89 and Anxiety 300.00 IMMUNIZATIONS No Known Immunizations SOCIAL HISTORY Never Assessed REASON FOR VISIT Medication Request PLAN OF CARE VITAL SIGNS MEDICATIONS Medication Instructions Dosage Frequency Start Date End Date Duration Status Baclofen 10 mg Orally Three times a day 1 tablet with food or milk as needed 8h Feb, Active RESULTS No Results PROCEDURES No Known [...]
--- OUTSIDE RECORDS SUMMARY | 2018-10-08 06:00 | XMS REPORT ---
Author Author KENA WERNER Organization [facility] Address [address] [place] [address] Care Team Providers Care Live Truck Technician Name Role Phone KENA WERNER Unavailable PROBLEMS Type Condition ICD9-CM Code LQU41-ZC Code Onset Dates Condition Status SNOMED Code Problem Delayed gastric emptying K30 Active 906080929 Problem Chronic prescription benzodiazepine use Z79.899 Active 212965337 Problem Presence of IVC filter Z95.828 Active 237755129 Problem Periodic limb movement sleep disorder G47.61 Active 049569778 Problem 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 560761800045334 Problem Leukocytosis, unspecified type D72.829 Active 911804429 Problem Gastroesophageal reflux disease, esophagitis presence not specified K21.9 Active 562680455 Problem Morbid obesity due to excess calories E66.01 Active 189981071 Problem Type 2 diabetes mellitus with foot ulcer E11.621 Active 973838547181209 Problem Fatty liver K76.0 Active 960194570 Problem Dysthymic disorder F34.1 Active 77935743 Problem Tinnitus of both ears H93.13 Active 1327390431132 Problem Hirsutism L68.0 Active 284292617 Problem Hypothyroidism, unspecified hypothyroidism type E03.9 Active 38789698 Problem Essential hypertension I10 Active 23853662 Problem Non-pressure chronic ulcer of other part of right foot limited to breakdown of skin L97.511 Active 939981137 Problem Non-pressure chronic ulcer of other part of left foot limited to breakdown of skin L97.521 Active 617836922 Problem Sensorineural hearing loss (SNHL) of both ears H90.3 Active 953726602 Problem Constipation by delayed colonic transit K59.01 Active 46235765 Problem Mixed hyperlipidemia E78.2 Active 903745137 Problem Type 2 diabetes mellitus with diabetic polyneuropathy E11.42 Active 456156819 Problem Primary insomnia F51.01 Active 056377223 Problem Anxiety F41.9 Active 59987125 Problem Elevated ALT measurement R74.0 Active 423742016 Problem DM neuro manif type II E11.49 Active 10765215 Problem 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 Active 022232149 Problem Type II or unspecified type diabetes mellitus with neurological manifestations, not stated as uncontrolled E11.49 Active 64568317 ALLERGIES No Known Allergies ENCOUNTERS Encounter Location Date Diagnosis [facility] [id number] [place] [address] [id number] 26 May, 2018 [facility] [address] [address] 1853 May, [facility] [address] [address]- 9167 May, [facility] [address] [address]- 2352 Apr, [facility] [address] 8[address]- 7074 Apr, [facility] [address] 35347- 2135 Apr, Dysthymic disorder F34.1 and Anxiety F41.9 [facility] [facility] [address] 19136- 3008 Mar, Acute pain of right knee M25.561 [facility] [id number] [place] [address] 92162- 7922 Mar, [facility] [id number] [place] [address] 14002- 4415 Mar, Acute pain of right knee M25.561 [facility] [address] 99370- 8785 Mar, Type 2 diabetes mellitus with diabetic polyneuropathy E11.42 [facility] [address] [place] [address] [id number] Mar, Dental examination Z01.20 [facility] [address] [place] [address] Mar, Dysthymic disorder F34.1 and Anxiety F41.9 [facility] [address] 75179- 4817 Feb, [facility] [id number] [place] [address] 90191- 2388 Feb, [facility] [address] 84816- 7381 Feb, Dental examination Z01.20 [facility] [id number] [place] [address] 24140- 2103 Feb, [facility] [address] 25[address]24[address] Feb, Rib pain on left side R07.81 [facility] [address] 32212- 5642 Feb, [facility] [id number] [place] [address] 69734- 9488 Feb, [facility] [id number] [place] [address] 53088- 4803 January, [facility] [id number] [place] [address] [phone] January, Dental examination Z01.20 [facility] [id number] [place] [address] [phone] January, Dental caries K02.9 [facility] [id number] [place] [address] 26657- 3460 January, Type 2 diabetes mellitus with foot ulcer E11.621 ; Flexion deformity of finger joint of left hand M21.242 ; Chronic cough R05 ; Tinnitus of both ears H93.13 ; Sensorineural hearing loss (SNHL) of both ears H90.3 and Leukocytosis, unspecified type D72.829 [facility] [id number] [place] [address] 68784- 8757 January, [facility] [id number] [id number] Dec, Dental examination Z01.20 [facility] [id number] [place] [address] 279343- 0662 Dec, Medicare annual wellness visit, initial Z00.00 ; DM neuro manif type II E11.49 ; Morbid obesity due to excess calories E66.01 ; Essential hypertension I10 ; Anxiety F41.9 ; 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 ; Encounter for immunization Z23 ; Cough R05 and 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 [facility] [id number] [place] [address] 38502- 8684 16 Dec, 2017 Cough R05 [facility] [id number] [place] [address] 69205- 7312 15 Nov, 2017 [facility] [id number] [place] [address] 53326- 7266 05 Nov, 2017 Screening for breast cancer Z12.31 [facility] [id number] [place] [address] 50920- 7149 12 Oct, 2017 [facility] [id number] [place] [address] 31652- 5590 12 Oct, 2017 [facility] [id number] [place] [address] 03457- 7152 07 Oct, 2017 Type 2 diabetes mellitus [...] foot limited to breakdown of skin L97.[address] [place] [address]- 7[address] Sep, [facility] [id number] [address] 8525 Sep, [facility] [id number] [place] [address] 65859- 6706 Aug, 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 [facility] [id number] [place] [address] 94070- 2785 Jul, [facility] [id number] [place] [address] 44408- 6511 May, Type 2 diabetes mellitus with diabetic polyneuropathy E11.42 [facility] [id number] [place] [address] 69186- 1643 May, [facility] [id number] [place] [address] 82648- 1081 May, [facility] [id number] [place] [address] 93224- 4270 Apr, Type 2 diabetes mellitus with diabetic polyneuropathy E11.42 and Morbid obesity due to excess calories E66.01 [facility] [address] [address] 350[address] Apr, [facility] [address] [address]- 1203 Apr, Type 2 diabetes mellitus with diabetic polyneuropathy E11.42 [facility] [address] [address] Apr, [facility] [address] [place] [address] 5218 Mar, [facility] [address] [place] [address]- 3485 Mar, [facility] [address] [place] [address]- 8250 Mar, [facility] [address] [place] [address]- 4448 Mar, Type 2 diabetes mellitus with diabetic polyneuropathy E11.42 [facility] [id number] [place] [address] 87184- 3666 Feb, [facility] [address] [place] [address]- 7230 Feb, [facility] [id number] [place] [address] 33990- 4062 Feb, Type 2 diabetes mellitus with diabetic polyneuropathy E11.42 ; Preoperative examination Z01.818 ; Wound, open, foot, left, initial encounter S91.302A ; Weight loss R63.4 and Tobacco abuse Z72.0 [facility] [id number] [address]- 9053 Nov, [facility] [id number] [place] [address] 07056- 1956 Nov, Pelvic pain R10.2 [facility] [address] [place] [address] 42948- 9767 Nov, Morbid obesity due to excess calories E66.01 [facility] [address] [address]- 6644 Nov, [facility] [address] [place] [address]- 9647 Nov, [facility] [address] [place] [address]- 1445 Nov, [facility] [address] [place] [address]- 0999 Nov, [facility] [id number] [place] [address] 25331- 5597 Oct, [facility] [address] [place] [address]- 9006 Oct, [facility] [address] [place] [address]- 5491 Oct, Well woman exam Z01.419 ; Pelvic pain R10.2 and Type 2 diabetes mellitus with diabetic polyneuropathy E11.42 [facility] [address] 48622- 8195 Oct, 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 [facility] [address] 90469- 4881 Sep, Essential hypertension I10 ; Mixed hyperlipidemia E78.2 ; Leukocytosis, unspecified type D72.829 and Morbid obesity due to excess calories E66.01 [place] [address] 83217- 6558 Sep, [place] [address] 25900- 5742 Aug, Hypothyroidism, unspecified hypothyroidism type E03.9 [place] [address] 17639- 4413 Aug, Hirsutism L68.0 ; Primary insomnia F51.01 ; BMI 37.0-37.9, adult Z68.37 and Gastroesophageal reflux disease, esophagitis presence not specified K21.9 [facility] [facility] [id number] [place] [address] 54121- 9704 Jul, [facility] [id number] [place] [address] 35556- 9995 Jun, [facility] [address] 73198- 4028 Jun, [place] [address] 30465- 9191 Jun, Hypothyroidism, unspecified hypothyroidism type E03.9 [place] [address] 98082- 8362 Jun, Type 2 diabetes mellitus with diabetic polyneuropathy E11.42 ; Fatty liver K76.0 ; Leukocytosis, unspecified type D72.829 ; Morbid obesity due to excess calories E66.01 ; Hypotension due to drugs I95.2 ; Non- intractable vomiting with nausea, unspecified vomiting type R11.2 and Mixed hyperlipidemia E78.2 [facility] [id number] [place] [address] 40138- 0980 Jun, [facility] [address] 84362- 4573 Apr, [facility] [address] 87494- 7948 Apr, [place] [address] 64201- 4668 Mar, Eustachian tube dysfunction, bilateral H69.83 [facility] [address] 72063- 1780 Mar, [place] [address] 19257- 2365 Feb, [facility] [id number] [place] [address] 53902- 8649 Feb, Type 2 diabetes mellitus with diabetic polyneuropathy E11.42 ; Periodic limb movement sleep disorder G47.61 ; Hirsutism L68.0 ; Leukocytosis, unspecified type D72.829 and Postural dizziness R42 [facility] [id number] [place] [address] 13104- 3377 Dec, Onychomycosis B35.1 and Foot ulcer L97.509 [facility] [id number] [place] [address] 30691- 6962 Nov, [address] 88194- 3788 Nov, Preoperative cardiovascular examination Z01.810 ; Type 2 diabetes mellitus with diabetic polyneuropathy E11.42 and Essential hypertension I10 [place] [address] 60489- 4282 Oct, 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 ; Hammertoe M20.40 and DM neuro manif type II E11.49 [facility] [id number] [place] [address] 12028- 0681 Oct, Impingement syndrome of right shoulder M75.41 [facility] [id number] [place] [address] 78455- 0964 Sep, [facility] [id number] [place] [address] 69550- 2808 Sep, [facility] [id number] [place] [address] 16953- 8737 Sep, Leukocytosis, unspecified elevated WBC count D72.829 [facility] [id number] [place] [address] 26304- 1660 Sep, Leukocytosis, unspecified elevated WBC count D72.829 [facility] [id number] [place] [address] 88685- 7764 Sep, [facility] [id number] [place] [address] 97428- 9805 Sep, [facility] [id number] [place] [address] 34799- 2965 Sep, [facility] [facility] [id number] [place] [address] 27002- 4918 Sep, Periodic limb movement sleep disorder G47.61 ; Leukocytosis , unspecified elevated WBC count D72.829 and Mixed hyperlipidemia E78.2 [facility] [facility] [id number] [place] [address] 79350- 3229 Sep, Periodic limb movement sleep disorder G47.61 [facility] [id number] [place] [address] 84060- 9048 Aug, [facility] [id number] [place] [address] 19089- 6271 Aug, Type 2 diabetes mellitus with diabetic polyneuropathy E11.42 ; 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 and Major depressive disorder , recurrent episode, mild F33.0 [place] [address] 63646- 2279 Aug, Impingement syndrome of right shoulder M75.41 [place] [address] 51685- 4811 Aug, Shortness of breath R06.02 [place] [address] 79614- 6478 Aug, [place] [address] 01210- 3102 Aug, 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 and Type II or unspecified type diabetes mellitus with neurological manifestations, not stated as uncontrolled E11.49 [facility] [address] 54081- 8593 Aug, [place] [address] 47256- 2205 Jul, Presence of IVC filter Z95.828 [facility] [address] 40260- 2952 Jul, Rotator cuff tear, right M75.101 [place] [address] 02963- 4811 Jul, [place] [address] 06811- 0750 Jul, [place] [address] 20687- 3230 Jul, [place] [address] 08757- 5695 Jun, Leukocytosis, unspecified elevated WBC count D72.829 and Mixed hyperlipidemia E78.2 [place] [address] 31417- 1267 23 Oct, 2015 Type 2 diabetes mellitus with diabetic polyneuropathy E11.42 ; Hypothyroidism, unspecified hypothyroidism type E03.9 ; Elevated ALT measurement R74.0 ; Mixed hyperlipidemia E78.2 ; Primary insomnia F51.01 ; Seizure-like activity R56.9 ; Presence of IVC filter Z95.828 and Elevated liver enzymes R74.8 [place] [address] 12932- 0305 Jun, [place] [address] 95470- 2863 Jun, Hammertoe M20.40 and 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 [facility] [address] 591530- 8527 Jun, Elevated liver enzymes R74.8 [place] [address] 92807- 0456 Jun, Elevated liver enzymes R74.8 [facility] [address] 20726- 3342 May, Elevated liver enzymes R74.8 [facility] [address] 50412- 9306 May, Hypertension 401.9 ; Hirsutism 704.1 and Hypokalemia 276.8 [facility] [id number] [place] [address] 37259- 2670 May, Hypertension 401.9 ; Hirsutism 704.1 and Hypokalemia 276.8 [facility] [id number] [place] [address] 80145- 5685 17 May, 2015 Impingement syndrome of right shoulder 726.2 and SLAP lesion of right shoulder 840.7 [facility] [id number] [place] [address] 91343- 1468 May, [place] [address] 74600- 4802 Mar, Decreased sex drive 799.81 and Foot pain, bilateral 729.5 [facility] [address] [place] [address] 24821- 4077 Mar, Impingement syndrome of right shoulder 726.2 [facility] [address] [place] [address]- 4033 Mar, [facility] [address] [place] [address] [id number] Mar, Dental examination V72.2 [facility] [id number] [place] [address] 65281- 6482 11 Feb, 2015 Subacromial bursitis 726.19 [place] [address] 42375- 3674 Feb, [place] [id number] [place] [address] 49100- 7735 January, [facility] [id number] [place] [address] 57553- 5113 January, Muscle spasms of lower extremity 728.85 ; Diabetes mellitus , type II 250.00 ; Hypertension 401.9 ; Neuropathy 355.9 ; Hyperlipidemia LDL goal < 100 272.4 ; Hypothyroidism 244.9 ; Insomnia 780.52 ; History of Guillain- Edna syndrome V12.49 ; Acid reflux disease 530.81 ; Presence of IVC filter V45.89 and Anxiety 300.00 IMMUNIZATIONS No Known Immunizations SOCIAL HISTORY Never Assessed REASON FOR VISIT left rib pain for the past week. pt reports she fell in her house et landed on wood floors on her left side. [email or web address] PLAN OF CARE Activity Details Follow Up prn Reason: VITAL SIGNS Height 61 in 2018-03-10 Weight 169.4 lbs 2018-03-10 Temperature 97.8 degrees Fahrenheit 2018-03-10 Heart Rate 80 bpm 2018-03-10 Respiratory Rate 20 2018-03-10 BMI 32.00 kg/m2 2018-03-10 Blood pressure systolic 124 mmHg 2018-03-10 Blood pressure diastolic 78 mmHg 2018-03-10 MEDICATIONS Medication Instructions Dosage Frequency Start Date End Date Duration Status Glucometer 1 kit subcutaneously Once a day OneTouch Verio meter 24h Apr Active Wellbutrin SR 100 mg Orally 3 times a day 1 tablet in the morning 8h Active Levothyroxine Sodium 50 MCG TAKE ONE TABLET BY MOUTH ONCE DAILY (MUST HAVE APPOINTMENT FOR REFILL) 30 Active Pen [place] 32G X 4 MM as directed 24h Apr, Active Test strips Test Strips subcutaneously - test once daily OneTouch Verio test strips as directed Apr, Active Multivitamin Active Lisinopril 5 MG TAKE 1 TABLET BY MOUTH ONCE DAILY 90 Active Omeprazole 40 MG TAKE ONE CAPSULE BY MOUTH ONCE DAILY 90 Active OneTouch Verio - TEST DAILY 50 Active Ranitidine HCl 150 MG TAKE ONE TABLET BY MOUTH TWICE DAILY (MUST HAVE APPOINTMENT FOR REFILL) 30 Active Promethazine HCl 25 MG TAKE ONE TABLET BY MOUTH EVERY 6 HOURS NEEDED 15 Active Ibuprofen 200 MG Orally every 6 hrs 1 tablet as needed 6h Active Atorvastatin Calcium 40 mg Orally Once a day 1 tablet 24h 30 Active Duloxetine HCl 60 MG TAKE ONE CAPSULE BY MOUTH ONCE DAILY (MUST HAVE APPOINTMENT FOR REFILL) 30 Active Lidoderm 5 % Externally Once a day 1 patch to intact skin remove after 12 hours 24h Aug, Active Metformin HCl 500 MG TAKE ONE TABLET BY MOUTH TWICE DAILY WITH MEALS (MUST HAVE APPOINTMENT FOR REFILL) Active Potassium Chloride 10 MEQ Orally Twice a day 1 capsule 12h 30 Active Baclofen 10 mg Orally Three times a day 1 tablet with food or milk as needed 8h Feb, Active RESULTS Name Result Date Reference Range Xray : Rib Series, Left (IN HOUSE) 2018-03-10 PROCEDURES Procedure Date Ordered Result Body Site X-RAY EXAM OF RIBS March 10, 2018 [facility] VISIT ESTABLISHED PATIENT March 10, 2018 INSTRUCTIONS MEDICATIONS ADMINISTERED No Known [...]
--- OUTSIDE RECORDS SUMMARY | 2018-10-08 06:01 | XMS REPORT ---
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 Active 513769104920433 Problem Leukocytosis, unspecified type D72.829 Active 489415418 Problem Gastroesophageal reflux disease, esophagitis presence not specified K21.9 Active 372549312 Problem Morbid obesity due to excess calories E66.01 Active 651755597 Problem Type 2 diabetes mellitus with foot ulcer E11.621 Active 692816304087664 Problem Fatty liver K76.0 Active 113930441 Problem Dysthymic disorder F34.1 Active 94694668 Problem Tinnitus of both ears H93.13 Active 5847643995635 Problem Hirsutism L68.0 Active 724913307 Problem Hypothyroidism, unspecified hypothyroidism type E03.9 Active 19031445 Problem Essential hypertension I10 Active 77790615 Problem Non-pressure chronic ulcer of other part of right foot limited to breakdown of skin L97.511 Active 371492173 Problem Non-pressure chronic ulcer of other part of left foot limited to breakdown of skin L97.521 Active 764868415 Problem Sensorineural hearing loss (SNHL) of both ears H90.3 Active 666288776 Problem Constipation by delayed colonic transit K59.01 Active 29951086 Problem Mixed hyperlipidemia E78.2 Active 558594067 Problem Type 2 diabetes mellitus with diabetic polyneuropathy E11.42 Active 497820177 Problem Primary insomnia F51.01 Active 222535758 Problem Anxiety F41.9 Active 91887043 Problem Elevated ALT measurement R74.0 Active 265503958 Problem DM neuro manif type II E11.49 Active 76235176 Problem 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 Active 411310302 Problem Type II or unspecified type diabetes mellitus with neurological manifestations, not stated as uncontrolled E11.49 Active 33383798 ALLERGIES No Known Allergies ENCOUNTERS Encounter Location Date Diagnosis [facility] [id number] [place] [address] [id number] May, [facility] [address] [address]- 5091 May, [facility] [address] 60849- 9475 May, [facility] [address] 38686- 1760 Apr, [facility] [address] 30337- 1839 Apr, [facility] [address] 30486- 4881 Apr, Dysthymic disorder F34.1 and Anxiety F41.9 [facility] [address] 87492- 6843 Mar, Acute pain of right knee M25.561 [facility] [id number] [place] [address] 44920- 3440 Mar, [facility] [id number] [place] [address] 14245- 2698 Mar, Acute pain of right knee M25.561 [facility] [id number] [place] [address] 07573- 3822 Mar, Type 2 diabetes mellitus with diabetic polyneuropathy E11.42 [facility] [address] [place] [address] [id number] Mar, Dental examination Z01.20 [facility] [id number] [place] [address] 45721- 3735 Mar, Dysthymic disorder F34.1 and Anxiety F41.9 [facility] [id number] [place] [address] 21200- 8521 Feb, [facility] [id number] [place] [address] 61592- 1669 Feb, [facility] [id number] [place] [address] 96686- 5239 Feb, Dental examination Z01.20 [facility] [id number] [place] [address] 87161- 0737 Feb, [facility] [id number] [place] [address] 50528 -5469 Feb, Rib pain on left side R07.81 [facility] [id number] [place] [address] 57856- 9871 Feb, [facility] [address] 90196- 6369 Feb, [facility] [id number] [place] [address] 01254- 9095 January, [facility] [address] [id number] January, Dental examination Z01.20 [facility] [id number] [place] [address] [id number] January, Dental caries K02.9 [facility] [id number] [place] [address] 79232- 6820 January, Type 2 diabetes mellitus with foot ulcer E11.621 ; Flexion deformity of finger joint of left hand M21.242 ; Chronic cough R05 ; Tinnitus of both ears H93.13 ; Sensorineural hearing loss (SNHL) of both ears H90.3 and Leukocytosis, unspecified type D72.829 [facility] [id number] [place] [address] 60194- 6465 January, [facility] [address] [id number] Dec, Dental examination Z01.20 [facility] [id number] [place] [address] 84542- 4635 Dec, Medicare annual wellness visit, initial Z00.00 ; DM neuro manif type II E11.49 ; Morbid obesity due to excess calories E66.01 ; Essential hypertension I10 ; Anxiety F41.9 ; 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 ; Encounter for immunization Z23 ; Cough R05 and 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 [facility] [address] 70843- 5362 16 Dec, 2017 Cough R05 [facility] [address] 18671- 0478 15 Nov, [address] 22861- 1817 05 Nov, 2017 Screening for breast cancer Z12.31 [facility] [id number] [place] [address] 53038- 9255 12 Oct, [address] 60464- 3226 Oct, [facility] [id number] [place] [address] 06958- 6611 07 Oct, 2017 Type 2 diabetes mellitus [...] foot limited to breakdown of skin L97.521 [place] [id number] [place] [address] 82379- 9972 Sep, [facility] [address] [address] Sep, [facility] [id number] [place] [address] 42072- 4195 Aug, 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 [facility] [id number] [place] [address] 70027- 3576 Jul, [facility] [id number] [place] [address] 53477- 9011 May, Type 2 diabetes mellitus with diabetic polyneuropathy E11.42 [facility] [id number] [place] [address] 32567- 5270 May, [facility] [id number] [place] [address] 17569- 1955 May, [facility] [id number] [place] [address] 32099- 4184 Apr, Type 2 diabetes mellitus with diabetic polyneuropathy E11.42 and Morbid obesity due to excess calories E66.01 [facility] [address] [address] 25[address] Apr, [facility] [id number] [address] 0934 Apr, Type 2 diabetes mellitus with diabetic polyneuropathy E11.42 [facility] [address] [address] Apr, [facility] [address] [address]- 4026 Mar, [facility] [address] [address]- 5480 Mar, [facility] [address] [place] [address]- 7226 Mar, [facility] [address] [place] [address]- 1078 Mar, Type 2 diabetes mellitus with diabetic polyneuropathy E11.42 [facility] [address] [address]- 0436 Feb, [facility] [id number] [place] [address] 70081- 7732 Feb, [facility] [id number] [place] [address] 92529- 7078 Feb, Type 2 diabetes mellitus with diabetic polyneuropathy E11.42 ; Preoperative examination Z01.818 ; Wound, open, foot, left, initial encounter S91.302A ; Weight loss R63.4 and Tobacco abuse Z72.0 [facility] [id number] [place] [address] 40107- 5522 Nov, [facility] [id number] [place] [address] 46414- 6149 Nov, Pelvic pain R10.2 [facility] [id number] [place] [address] 20614- 4982 Nov, Morbid obesity due to excess calories E66.01 [facility] [id number] [place] [address] 10267- 9027 Nov, [facility] [id number] [place] [address] 90662- 7631 Nov, [facility] [id number] [place] [address] 74974- 9566 Nov, [facility] [id number] [place] [address] 98424- 5717 Nov, [facility] [id number] [place] [address] 05953- 6224 Oct, [facility] [id number] [place] [address] 32453- 8464 Oct, [facility] [id number] [place] [address] 09754- 5559 Oct, Well woman exam Z01.419 ; Pelvic pain R10.2 and Type 2 diabetes mellitus with diabetic polyneuropathy E11.42 [facility] [id number] [place] [address] 65862- 2146 Oct, 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 [facility] [address] 81314- 5864 Sep, Essential hypertension I10 ; Mixed hyperlipidemia E78.2 ; Leukocytosis, unspecified type D72.829 and Morbid obesity due to excess calories E66.01 [facility] [id number] [place] [address] 04668- 0779 Sep, [facility] [address] 05450- 0127 Aug, Hypothyroidism, unspecified hypothyroidism type E03.9 [facility] [address] 68683- 7579 Aug, Hirsutism L68.0 ; Primary insomnia F51.01 ; BMI 37.0-37.9, adult Z68.37 and Gastroesophageal reflux disease, esophagitis presence not specified K21.9 [facility] [id number] [place] [address] 73644- 9522 Jul, [facility] [id number] [place] [address] 48716- 5656 Jun, [facility] [id number] [place] [address] 99061- 2577 Jun, [facility] [id number] [place] [address] 88900- 8634 Jun, Hypothyroidism, unspecified hypothyroidism type E03.9 [facility] [id number] [place] [address] 23851- 3334 Jun, Type 2 diabetes mellitus with diabetic polyneuropathy E11.42 ; Fatty liver K76.0 ; Leukocytosis, unspecified type D72.829 ; Morbid obesity due to excess calories E66.01 ; Hypotension due to drugs I95.2 ; Non- intractable vomiting with nausea, unspecified vomiting type R11.2 and Mixed hyperlipidemia E78.2 [facility] [address] 73017- 8062 Jun, [facility] [address] 97293- 7699 Apr, [facility] [address] 69594- 3891 Apr, [facility] [address] 85720- 0833 Mar, Eustachian tube dysfunction, bilateral H69.83 [facility] [address] 44730- 0720 Mar, [facility] [address] 42653- 0202 Feb, [facility] [address] 72027- 9843 Feb, Type 2 diabetes mellitus with diabetic polyneuropathy E11.42 ; Periodic limb movement sleep disorder G47.61 ; Hirsutism L68.0 ; Leukocytosis, unspecified type D72.829 and Postural dizziness R42 [facility] [id number] [place] [address] 09539- 1485 Dec, Onychomycosis B35.1 and Foot ulcer L97.509 [facility] [address] 11307- 4519 Nov, [address] 96568- 7375 Nov, Preoperative cardiovascular examination Z01.810 ; Type 2 diabetes mellitus with diabetic polyneuropathy E11.42 and Essential hypertension I10 [facility] [address] 97003- 0380 Oct, 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 ; Hammertoe M20.40 and DM neuro manif type II E11.49 [facility] [id number] [place] [address] 00183- 5439 Oct, Impingement syndrome of right shoulder M75.41 [facility] [id number] [place] [address] 08107- 7756 Sep, [facility] [id number] [place] [address] 14428- 2806 Sep, [facility] [id number] [place] [address] 16944- 7805 Sep, Leukocytosis, unspecified elevated WBC count D72.829 [facility] [id number] [place] [address] 27349- 9387 Sep, Leukocytosis, unspecified elevated WBC count D72.829 [facility] [id number] [place] [address] 13803- 6952 Sep, [facility] [id number] [place] [address] 49218- 5220 Sep, [facility] [id number] [place] [address] 93555- 0223 Sep, [facility] [id number] [place] [address] 04629- 8312 Sep, Periodic limb movement sleep disorder G47.61 ; Leukocytosis , unspecified elevated WBC count D72.829 and Mixed hyperlipidemia E78.2 [facility] [id number] [place] [address] 83010- 4224 Sep, Periodic limb movement sleep disorder G47.61 [facility] [id number] [place] [address] 03743- 8910 Aug, [facility] [id number] [place] [address] 20203- 3649 Aug, Type 2 diabetes mellitus with diabetic polyneuropathy E11.42 ; 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 and Major depressive disorder , recurrent episode, mild F33.0 [facility] [id number] [place] [address] 41603- 0450 Aug, Impingement syndrome of right shoulder M75.41 [facility] [id number] [place] [address] 95651- 0556 Aug, Shortness of breath R06.02 [facility] [address] 09883- 5115 Aug, [facility] [address] 60179- 0381 Aug, 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 and Type II or unspecified type diabetes mellitus with neurological manifestations, not stated as uncontrolled E11.49 [facility] [address] 65699- 0388 Aug, [facility] [address] 80291- 8856 Jul, Presence of IVC filter Z95.828 [facility] [address] 74220- 8074 Jul, Rotator cuff tear, right M75.101 [facility] [id number] [place] [address] 91425- 6161 Jul, [facility] [id number] [place] [address] 75152- 3681 Jul, [facility] [id number] [place] [address] 53121- 2565 Jul, [facility] [id number] [place] [address] 43397- 1503 Jun, Leukocytosis, unspecified elevated WBC count D72.829 and Mixed hyperlipidemia E78.2 [facility] [id number] [place] [address] 62457- 9935 Jun, Type 2 diabetes mellitus with diabetic polyneuropathy E11.42 ; Hypothyroidism, unspecified hypothyroidism type E03.9 ; Elevated ALT measurement R74.0 ; Mixed hyperlipidemia E78.2 ; Primary insomnia F51.01 ; Seizure-like activity R56.9 ; Presence of IVC filter Z95.828 and Elevated liver enzymes R74.8 [facility] [id number] [place] [address] 89259- 0210 Jun, [facility] [address] 07080- 9956 Jun, Hammertoe M20.40 and 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 [facility] [address] 55362- 6649 Jun, Elevated liver enzymes R74.8 [facility] [address] 46007- 2912 Jun, Elevated liver enzymes R74.8 [facility] [address] 74557- 0331 May, Elevated liver enzymes R74.8 [facility] [address] 36412- 7436 May, Hypertension 401.9 ; Hirsutism 704.1 and Hypokalemia 276.8 [place] [id number] [place] [address] 92631- 6336 May, Hypertension 401.9 ; Hirsutism 704.1 and Hypokalemia 276.8 [facility] [address] 62483- 0157 17 May, 2015 Impingement syndrome of right shoulder 726.2 and SLAP lesion of right shoulder 840.[address] 14859- 2735 May, [address] 36401- 0275 Mar, Decreased sex drive 799.81 and Foot pain, bilateral 729.[address] [place] [address]- 8144 Mar, Impingement syndrome of right shoulder 726.2 [facility] [address], [place] [address]- 0932 Mar, [facility] [id number] [id number] 10 Mar, 2015 Dental examination V72.2 [facility] [id number] [place] [address] 59648- 3253 11 Feb, 2015 Subacromial bursitis 726.19 [facility] [id number] [place] [address] 50932- 6592 Feb, [facility] [address] [place] [address] 07481- 4114 January, [facility] [id number] [place] [address] 18576- 8992 January, Muscle spasms of lower extremity 728.85 ; Diabetes mellitus , type II 250.00 ; Hypertension 401.9 ; Neuropathy 355.9 ; Hyperlipidemia LDL goal < 100 272.4 ; Hypothyroidism 244.9 ; Insomnia 780.52 ; 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 ; Acid reflux disease 530.81 ; Presence of IVC filter V45.89 and Anxiety 300.00 IMMUNIZATIONS No Known Immunizations SOCIAL HISTORY Never Assessed REASON FOR VISIT araceli PLAN OF CARE Activity Details Follow Up prn Reason:Pt will call VITAL SIGNS Blood pressure systolic 128 mmHg 2018-02-25 Blood pressure diastolic 82 mmHg 2018-02-25 MEDICATIONS Medication Instructions Dosage Frequency Start Date End Date Duration Status OneTouch Verio - TEST DAILY 50 Active Lidoderm 5 % Externally Once a day 1 patch to intact skin remove after 12 hours 24h Aug, Active Promethazine HCl 25 MG TAKE ONE TABLET BY MOUTH EVERY 6 HOURS NEEDED 15 Active Levothyroxine Sodium 50 MCG TAKE ONE TABLET BY MOUTH ONCE DAILY (MUST HAVE APPOINTMENT FOR REFILL) 30 Active Multivitamin Active Wellbutrin SR 100 mg Orally 3 times a day 1 tablet in the morning 8h Active Omeprazole 40 MG TAKE ONE CAPSULE BY MOUTH ONCE DAILY 90 Active Potassium Chloride 10 MEQ Orally Twice a day 1 capsule 12h 30 Active Metformin HCl 500 MG TAKE ONE TABLET BY MOUTH TWICE DAILY WITH MEALS (MUST HAVE APPOINTMENT FOR REFILL) Active Josiah Mag Zinc +D3 Orally daily 1 tab 24h Not-Taking Ranitidine HCl 150 MG TAKE ONE TABLET BY MOUTH TWICE DAILY (MUST HAVE APPOINTMENT FOR REFILL) 30 Active Flonase 50 MCG/ACT Nasally Once a day 2 spray in each nostril 24h Mar, Active Lisinopril 5 MG TAKE 1 TABLET BY MOUTH ONCE DAILY 90 Active Pen [place]oughton 32G X 4 MM as directed 24h Apr, Active Cyclobenzaprine HCl 5 MG Orally every 8 hours as needed 1-2 tablets 30 Not-Taking Duloxetine HCl 60 MG TAKE ONE CAPSULE BY MOUTH ONCE DAILY (MUST HAVE APPOINTMENT FOR REFILL) 30 Active Test strips Test Strips subcutaneously - test once daily OneTouch Verio test strips as directed Apr, Active Atorvastatin Calcium 40 mg Orally Once a day 1 tablet 24h 30 Active Ibuprofen 200 MG Orally every 6 hrs 1 tablet as needed 6h Active Glucometer 1 kit subcutaneously Once a day OneTouch Verio meter 24h Apr Active Amoxicillin 500 MG Orally every 8 hrs 1 capsule 8h 7 days Not-Taking RESULTS No Results PROCEDURES Procedure Date Ordered Result Body Site INTRAORL-PERIAPICAL 1 FILM [id number] February 25, 2018 [place] COMPS - UNUSUL CIRCUMSTANCES RPT February 25, 2018 Billing Notes on claim February 25, 2018 Dental no charge February 25, 2018 INSTRUCTIONS MEDICATIONS ADMINISTERED No Known Medications [...]
--- OUTSIDE RECORDS SUMMARY | 2018-10-08 06:01 | XMS REPORT ---
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 Active 212486431798062 Problem Leukocytosis, unspecified type D72.829 Active 295493834 Problem Gastroesophageal reflux disease, esophagitis presence not specified K21.9 Active 263592315 Problem Morbid obesity due to excess calories E66.01 Active 523273050 Problem Type 2 diabetes mellitus with foot ulcer E11.621 Active 003058976044219 Problem Fatty liver K76.0 Active 927009937 Problem Dysthymic disorder F34.1 Active 59646637 Problem Tinnitus of both ears H93.13 Active 5829086210279 Problem Hirsutism L68.0 Active 892636569 Problem Hypothyroidism, unspecified hypothyroidism type E03.9 Active 30398813 Problem Essential hypertension I10 Active 98458395 Problem Non-pressure chronic ulcer of other part of right foot limited to breakdown of skin L97.511 Active 052375448 Problem Non-pressure chronic ulcer of other part of left foot limited to breakdown of skin L97.521 Active 167982419 Problem Sensorineural hearing loss (SNHL) of both ears H90.3 Active 437431621 Problem Constipation by delayed colonic transit K59.01 Active 19975815 Problem Mixed hyperlipidemia E78.2 Active 675884503 Problem Type 2 diabetes mellitus with diabetic polyneuropathy E11.42 Active 349010765 Problem Primary insomnia F51.01 Active 728466816 Problem Anxiety F41.9 Active 34508328 Problem Elevated ALT measurement R74.0 Active 451244792 Problem DM neuro manif type II E11.49 Active 59826440 Problem 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 Active 974182754 Problem Type II or unspecified type diabetes mellitus with neurological manifestations, not stated as uncontrolled E11.49 Active 99456025 ALLERGIES No Information ENCOUNTERS Encounter Location Date Diagnosis [facility] [id number] [place] [address] [id number] 26 May, 2018 [facility] [address] 24411- [address]69 18 May, 2018 [facility] [address] 74857- 9884 May, [facility] [address] 58909- 0861 Apr, [facility] [address] 01284- 9603 Apr, [facility] [address] 55357- 8507 Apr, Dysthymic disorder F34.1 and Anxiety F41.9 [place] [address] 13685- 8651 Mar, Acute pain of right knee M25.561 [facility] [id number] [place] [address] 49020- 1017 Mar, [facility] [id number] [place] [address] 25260- 3443 Mar, Acute pain of right knee M25.561 [facility] [address] 62469- 2668 09 Mar, 2018 Type 2 diabetes mellitus with diabetic polyneuropathy E11.42 [facility] [address] [place] [address] [id number] Mar, Dental examination Z01.20 [facility] [address] 79965- 0979 Mar, Dysthymic disorder F34.1 and Anxiety F41.9 [facility] [id number] [place] [address] 12578- 8069 Feb, [facility] [id number] [place] [address] 42932- 6308 Feb, [facility] [id number] [place] [address] 69095- 3061 Feb, Dental examination Z01.20 [facility] [id number] [place] [address] 37192- 6196 Feb, [facility] [address] [address]237 Feb, Rib pain on left side R07.81 [place] [id number] [place] [address] 49952- 9856 Feb, [facility] [id number] [place] [address] 53434- 4835 Feb, [facility] [id number] [place] [address] 84801- 1201 January, [facility] [id number] [place] [address] [id number] January, Dental examination Z01.20 [facility] [id number] [place] [address] [id number] January, Dental caries K02.9 [facility] [id number] [place] [address] 21434- 6740 January, Type 2 diabetes mellitus with foot ulcer E11.621 ; Flexion deformity of finger joint of left hand M21.242 ; Chronic cough R05 ; Tinnitus of both ears H93.13 ; Sensorineural hearing loss (SNHL) of both ears H90.3 and Leukocytosis, unspecified type D72.829 [place] [id number] [place] [address] 09197- 1351 January, [facility] [id number] [id number] Dec, Dental examination Z01.20 [place] [id number] [place] [address] 34312- 9746 Dec, Medicare annual wellness visit, initial Z00.00 ; DM neuro manif type II E11.49 ; Morbid obesity due to excess calories E66.01 ; Essential hypertension I10 ; Anxiety F41.9 ; 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 ; Encounter for immunization Z23 ; Cough R05 and 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 [place] [id number] [place] [address] 12849- 6651 16 Dec, 2017 Cough R05 [place] [id number] [place] [address] 89349- 0394 15 Nov, 2017 [place] [id number] [place] [address] 59013- 5412 05 Nov, 2017 Screening for breast cancer Z12.31 [place] [id number] [place] [address] 63044- 0821 12 Oct, 2017 [place] [id number] [place] [address] 67153- 0517 12 Oct, 2017 [place] [id number] [place] [address] 13886- 8124 07 Oct, 2017 Type 2 diabetes mellitus [...] foot limited to breakdown of skin L97.521 [id number] [place] [address] 74898- 2247 Sep, [facility] [id number] [place] [address] 91154- 6638 Sep, [facility] [id number] [place] [address] 53075- 2273 Aug, 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 [facility] [id number] [place] [address] 08887- 8564 Jul, [facility] [id number] [place] [address] 36024- 2052 May, Type 2 diabetes mellitus with diabetic polyneuropathy E11.42 [facility] [id number] [place] [address] 84305- 7030 18 May, 2017 [facility] [id number] [place] [address] 84408- 5926 May, [facility] [id number] [place] [address] 52889- 0335 Apr, Type 2 diabetes mellitus with diabetic polyneuropathy E11.42 and Morbid obesity due to excess calories E66.01 [facility] [id number] [place] [address] 58464- 6749 Apr, [facility] [id number] [place] [address] 37024- 7028 Apr, Type 2 diabetes mellitus with diabetic polyneuropathy E11.42 [facility] [address] [address] Apr, [facility] [address] [place] [address] 19387- 1547 Mar, [facility] [id number] [place] [address] 57106- 3381 Mar, [facility] [address] [address]- 0820 Mar, [facility] [id number] [place] [address] 92807- 0975 Mar, Type 2 diabetes mellitus with diabetic polyneuropathy E11.42 [facility] [id number] [place] [address] 71039- 6731 Feb, [facility] [id number] [place] [address] 07101- 4947 Feb, [facility] [id number] [place] [address] 86993- 6069 Feb, Type 2 diabetes mellitus with diabetic polyneuropathy E11.42 ; Preoperative examination Z01.818 ; Wound, open, foot, left, initial encounter S91.302A ; Weight loss R63.4 and Tobacco abuse Z72.0 [facility] [id number] [place] [address] 01272- 2032 Nov, [facility] [id number] [place] [address] 79872- 2716 Nov, Pelvic pain R10.2 [facility] [id number] [place] [address] 88380- 8041 Nov, Morbid obesity due to excess calories E66.01 [facility] [id number] [place] [address] 76959- 0378 Nov, [facility] [id number] [place] [address] 60222- 7286 Nov, [facility] [id number] [place] [address] 99687- 0461 Nov, [facility] [id number] [place] [address] 88649- 1753 Nov, [facility] [id number] [place] [address] 95268- 3720 Oct, [facility] [id number] [place] [address] 84652- 9943 Oct, [facility] [id number] [place] [address] 56931- 7828 Oct, Well woman exam Z01.419 ; Pelvic pain R10.2 and Type 2 diabetes mellitus with diabetic polyneuropathy E11.42 [place] [id number] [place] [address] 81667- 1356 Oct, 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 [place] [address] 97720- 3062 Sep, Essential hypertension I10 ; Mixed hyperlipidemia E78.2 ; Leukocytosis, unspecified type D72.829 and Morbid obesity due to excess calories E66.[address] 38839- 4265 Sep, [place] [address] 73014- 9502 Aug, Hypothyroidism, unspecified hypothyroidism type E03.9 [place] [address] 65498- 8044 Aug, Hirsutism L68.0 ; Primary insomnia F51.01 ; BMI 37.0-37.9, adult Z68.37 and Gastroesophageal reflux disease, esophagitis presence not specified K21.9 [place] [id number] [place] [address] 18551- 5244 Jul, [place] [id number] [place] [address] 03051- 1913 Jun, [place] [id number] [place] [address] 96115- 8518 Jun, [place] [address] 56290- 5717 Jun, Hypothyroidism, unspecified hypothyroidism type E03.9 [place] [id number] [place] [address] 84382- 5550 Jun, Type 2 diabetes mellitus with diabetic polyneuropathy E11.42 ; Fatty liver K76.0 ; Leukocytosis, unspecified type D72.829 ; Morbid obesity due to excess calories E66.01 ; Hypotension due to drugs I95.2 ; Non- intractable vomiting with nausea, unspecified vomiting type R11.2 and Mixed hyperlipidemia E78.2 [place] [id number] [place] [address] 96923- 5827 Jun, [place] [id number] [place] [address] 57344- 4079 Apr, [place] [address] 14261- 3232 Apr, [place] [address] 47760- 6313 Mar, Eustachian tube dysfunction, bilateral H69.83 [place] [address] 23505- 7833 Mar, [place] [address] 28330- 9843 Feb, [place] [id number] [place] [address] 85448- 4979 Feb, Type 2 diabetes mellitus with diabetic polyneuropathy E11.42 ; Periodic limb movement sleep disorder G47.61 ; Hirsutism L68.0 ; Leukocytosis, unspecified type D72.829 and Postural dizziness R42 [place] [id number] [place] [address] 22125- 2925 Dec, Onychomycosis B35.1 and Foot ulcer L97.509 [place] [id number] [place] [address] 80653- 9017 Nov, [place] [address] 52078- 4199 Nov, Preoperative cardiovascular examination Z01.810 ; Type 2 diabetes mellitus with diabetic polyneuropathy E11.42 and Essential hypertension I10 [place] [id number] [place] [address] 67507- 7002 Oct, 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 ; Hammertoe M20.40 and DM neuro manif type II E11.49 [place] [id number] [place] [address] 89616- 3642 11 Oct, 2015 Impingement syndrome of right shoulder M75.41 [place] [id number] [place] [address] 73173- 8356 Sep, [place] [id number] [place] [address] 74892- 1545 Sep, [place] [id number] [place] [address] 24536- 6018 Sep, Leukocytosis, unspecified elevated WBC count D72.829 [place] [id number] [place] [address] 63970- 8880 Sep, Leukocytosis, unspecified elevated WBC count D72.829 [place] [id number] [place] [address] 98180- 2609 Sep, [place] [id number] [place] [address] 33882- 6708 Sep, [place] [id number] [place] [address] 38955- 8056 Sep, [place] [id number] [place] [address] 05908- 3185 Sep, Periodic limb movement sleep disorder G47.61 ; Leukocytosis , unspecified elevated WBC count D72.829 and Mixed hyperlipidemia E78.2 [place] [id number] [place] [address] 28999- 9347 Sep, Periodic limb movement sleep disorder G47.61 [place] [id number] [place] [address] 13314- 2253 Aug, [place] [id number] [place] [address] 97889- 8731 Aug, Type 2 diabetes mellitus with diabetic polyneuropathy E11.42 ; 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 and Major depressive disorder , recurrent episode, mild F33.0 [place] [address] 87915- 4152 Aug, Impingement syndrome of right shoulder M75.41 [place] [address] 91962- 3593 Aug, Shortness of breath R06.02 [place] [address] 16310- 2670 Aug, [place] [address] 91661- 0479 Aug, 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 and Type II or unspecified type diabetes mellitus with neurological manifestations, not stated as uncontrolled E11.49 [place] [address] 96060- 1492 Aug, [place] [address] 96280- 2045 Jul, Presence of IVC filter Z95.828 [place] [address] 41060- 5452 Jul, Rotator cuff tear, right M75.101 [place] [address] 11840- 3687 Jul, [place] [address] 70557- 8581 Jul, [place] [address] 10368- 6949 Jul, [place] [address] 63461- 7320 Jun, Leukocytosis, unspecified elevated WBC count D72.829 and Mixed hyperlipidemia E78.2 [place] [address] 05652- 2499 Jun, Type 2 diabetes mellitus with diabetic polyneuropathy E11.42 ; Hypothyroidism, unspecified hypothyroidism type E03.9 ; Elevated ALT measurement R74.0 ; Mixed hyperlipidemia E78.2 ; Primary insomnia F51.01 ; Seizure-like activity R56.9 ; Presence of IVC filter Z95.828 and Elevated liver enzymes R74.8 [place] [address] 11508- 7531 Jun, [place] [address] 18101- 7908 Jun, Hammertoe M20.40 and 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 [place] [address] 90573- 1613 Jun, Elevated liver enzymes R74.8 [place] [address] 60983- 6420 Jun, Elevated liver enzymes R74.8 [place] [address] 88136- 0633 May, Elevated liver enzymes R74.8 [place] [address] 31363- 8444 May, Hypertension 401.9 ; Hirsutism 704.1 and Hypokalemia 276.8 [place] [id number] [place] [address] 96034- 0986 May, Hypertension 401.9 ; Hirsutism 704.1 and Hypokalemia 276.8 [place] [address] 20180- 8149 17 May, 2015 Impingement syndrome of right shoulder 726.2 and SLAP lesion of right shoulder 840.7 [place] [address] 76912- 0761 May, [place] [address] 58438- 2612 Mar, Decreased sex drive 799.81 and Foot pain, bilateral 729.5 [facility] [id number] [address]- 2024 Mar, Impingement syndrome of right shoulder 726.2 [facility] [address] [place] [address]- 9913 Mar, [facility] [address] [id number] Mar, Dental examination V72.2 [facility] [id number] [place] [address] 84966- 2367 11 Feb, 2015 Subacromial bursitis 726.19 [place] [id number] [place] [address] 42262- 2668 Feb, [facility] [address] [place] [address] 33144- 3560 January, [facility] [id number] [place] [address] 01855- 2822 January, Muscle spasms of lower extremity 728.85 ; Diabetes mellitus , type II 250.00 ; Hypertension 401.9 ; Neuropathy 355.9 ; Hyperlipidemia LDL goal < 100 272.4 ; Hypothyroidism 244.9 ; Insomnia 780.52 ; History of Guillain- Mcgrann syndrome V12.49 ; Acid reflux disease 530.81 ; Presence of IVC filter V45.89 and Anxiety 300.00 IMMUNIZATIONS No Known Immunizations SOCIAL HISTORY Never Assessed REASON FOR VISIT requesting return call PLAN OF CARE VITAL SIGNS [...]
--- OUTSIDE RECORDS SUMMARY | 2018-10-08 06:02 | XMS REPORT ---
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 933672114694344 Problem Leukocytosis, unspecified type D72.829 Active 383578697 Problem Gastroesophageal reflux disease, esophagitis presence not specified K21.9 Active 334963081 Problem Morbid obesity due to excess calories E66.01 Active 802198537 Problem Type 2 diabetes mellitus with foot ulcer E11.621 Active 355034909835259 Problem Fatty liver K76.0 Active 097825353 Problem Dysthymic disorder F34.1 Active 53626730 Problem Tinnitus of both ears H93.13 Active 2245141684922 Problem Hirsutism L68.0 Active 773292789 Problem Hypothyroidism, unspecified hypothyroidism type E03.9 Active 23059203 Problem Essential hypertension I10 Active 18163249 Problem Non-pressure chronic ulcer of other part of right foot limited to breakdown of skin L97.511 Active 881528446 Problem Non-pressure chronic ulcer of other part of left foot limited to breakdown of skin L97.521 Active 471084065 Problem Sensorineural hearing loss (SNHL) of both ears H90.3 Active 003566931 Problem Constipation by delayed colonic transit K59.01 Active 19969982 Problem Mixed hyperlipidemia E78.2 Active 324744996 Problem Type 2 diabetes mellitus with diabetic polyneuropathy E11.42 Active 714742839 Problem Primary insomnia F51.01 Active 736151253 Problem Anxiety F41.9 Active 57124919 Problem Elevated ALT measurement R74.0 Active 183367739 Problem DM neuro manif type II E11.49 Active 30646251 Problem 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 Active 822794163 Problem Type II or unspecified type diabetes mellitus with neurological manifestations, not stated as uncontrolled E11.49 Active 07198084 ALLERGIES No Known Allergies ENCOUNTERS Encounter Location Date Diagnosis [facility] [id number] [place] [address] [id number] May, [facility] [address] [address] 1435 May, [facility] [address] [address]- 5418 May, [facility] [address] 79395- 4800 Apr, [facility] [address] 16528- 7517 Apr, [facility] [address] 59237- 5778 Apr, Dysthymic disorder F34.1 and Anxiety F41.9 [facility] [address] 14488- 5849 Mar, Acute pain of right knee M25.561 [facility] [id number] [place] [address] 91543- 1735 Mar, [facility] [id number] [place] [address] 99176- 2750 Mar, Acute pain of right knee M25.561 [facility] [id number] [place] [address] 78125- 2088 Mar, Type 2 diabetes mellitus with diabetic polyneuropathy E11.42 [facility] [id number] [place] [address] [id number] Mar, Dental examination Z01.20 [facility] [id number] [place] [address] 06936- 5205 Mar, Dysthymic disorder F34.1 and Anxiety F41.9 [facility] [id number] [place] [address] 36651- 4730 Feb, [facility] [id number] [place] [address] 26056- 6767 Feb, [facility] [id number] [place] [address] 91852- 7855 Feb, Dental examination Z01.20 [facility] [id number] [place] [address] 67040- 2738 Feb, [facility] [id number] [place] [address] 85663 -2934 Feb, Rib pain on left side R07.81 [facility] [id number] [place] [address] 78903- 4649 Feb, [facility] [address] 44809- 9209 Feb, [facility] [id number] [place] [address] 55546- 8920 January, [facility] [address] [id number] January, Dental examination Z01.20 [facility] [id number] [place] [address] [id number] January, Dental caries K02.9 [facility] [id number] [place] [address] 98743- 7631 January, Type 2 diabetes mellitus with foot ulcer E11.621 ; Flexion deformity of finger joint of left hand M21.242 ; Chronic cough R05 ; Tinnitus of both ears H93.13 ; Sensorineural hearing loss (SNHL) of both ears H90.3 and Leukocytosis, unspecified type D72.829 [facility] [id number] [place] [address] 62709- 6468 January, [facility] [address] [id number] Dec, Dental examination Z01.20 [facility] [id number] [place] [address] 77766- 8910 Dec, Medicare annual wellness visit, initial Z00.00 ; DM neuro manif type II E11.49 ; Morbid obesity due to excess calories E66.01 ; Essential hypertension I10 ; Anxiety F41.9 ; 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 ; Encounter for immunization Z23 ; Cough R05 and 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 [facility] [address] 11326- 8850 16 Dec, 2017 Cough R05 [facility] [address] 20527- 1511 15 Nov, [address] [place] [address] 60206- 4778 05 Nov, 2017 Screening for breast cancer Z12.31 [facility] [id number] [place] [address] 56742- 2511 12 Oct, [address] [place] [address] 76494- 5258 Oct, [facility] [id number] [place] [address] 26079- 2149 07 Oct, 2017 Type 2 diabetes mellitus [...] foot limited to breakdown of skin L97.521 [place] [id number] [place] [address] 64946- 4869 Sep, [facility] [address] [address] Sep, [facility] [id number] [place] [address] 40610- 7145 Aug, 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 [facility] [id number] [place] [address] 90730- 4860 Jul, [facility] [id number] [place] [address] 00878- 5071 May, Type 2 diabetes mellitus with diabetic polyneuropathy E11.42 [facility] [id number] [place] [address] 43156- 0401 May, [facility] [id number] [place] [address] 89979- 0691 May, [facility] [id number] [place] [address] 29567- 0572 Apr, Type 2 diabetes mellitus with diabetic polyneuropathy E11.42 and Morbid obesity due to excess calories E66.01 [facility] [address] [address] 4[address] Apr, [facility] [id number] [address] 2757 Apr, Type 2 diabetes mellitus with diabetic polyneuropathy E11.[address] [facility] [address] [address] Apr, [facility] [address] [address] 8228 Mar, [facility] [id number] [address]- 9094 Mar, [facility] [address] [address]- 3885 Mar, [facility] [address] [address]- 7978 Mar, Type 2 diabetes mellitus with diabetic polyneuropathy E11.42 [facility] [address] [address]- 0369 Feb, [facility] [id number] [place] [address] 60271- 5998 Feb, [facility] [id number] [place] [address] 28640- 3537 Feb, Type 2 diabetes mellitus with diabetic polyneuropathy E11.42 ; Preoperative examination Z01.818 ; Wound, open, foot, left, initial encounter S91.302A ; Weight loss R63.4 and Tobacco abuse Z72.0 [facility] [id number] [place] [address] 23981- 3974 Nov, [facility] [id number] [place] [address] 22851- 3558 Nov, Pelvic pain R10.2 [facility] [id number] [place] [address] 01247- 2887 Nov, Morbid obesity due to excess calories E66.01 [facility] [id number] [place] [address] 53683- 2583 Nov, [facility] [id number] [place] [address] 83299- 7250 Nov, [facility] [id number] [place] [address] 55857- 7185 Nov, [facility] [id number] [place] [address] 64390- 2632 Nov, [facility] [id number] [place] [address] 24849- 3549 Oct, [facility] [id number] [place] [address] 86556- 6256 Oct, [facility] [id number] [place] [address] 66268- 1317 Oct, Well woman exam Z01.419 ; Pelvic pain R10.2 and Type 2 diabetes mellitus with diabetic polyneuropathy E11.42 [facility] [id number] [place] [address] 98916- 8063 Oct, 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 [facility] [address] 54361- 8790 Sep, Essential hypertension I10 ; Mixed hyperlipidemia E78.2 ; Leukocytosis, unspecified type D72.829 and Morbid obesity due to excess calories E66.01 [facility] [id number] [place] [address] 08187- 0179 Sep, [facility] [address] 61965- 9213 Aug, Hypothyroidism, unspecified hypothyroidism type E03.9 [facility] [address] 34338- 7119 Aug, Hirsutism L68.0 ; Primary insomnia F51.01 ; BMI 37.0-37.9, adult Z68.37 and Gastroesophageal reflux disease, esophagitis presence not specified K21.9 [facility] [id number] [place] [address] 61363- 3232 Jul, [facility] [id number] [place] [address] 93299- 5342 Jun, [facility] [id number] [place] [address] 33808- 4634 Jun, [facility] [id number] [place] [address] 13435- 9930 Jun, Hypothyroidism, unspecified hypothyroidism type E03.9 [facility] [id number] [place] [address] 21083- 9324 Jun, Type 2 diabetes mellitus with diabetic polyneuropathy E11.42 ; Fatty liver K76.0 ; Leukocytosis, unspecified type D72.829 ; Morbid obesity due to excess calories E66.01 ; Hypotension due to drugs I95.2 ; Non- intractable vomiting with nausea, unspecified vomiting type R11.2 and Mixed hyperlipidemia E78.2 [place] [address] 04329- 5812 Jun, [facility] [address] 89435- 5566 Apr, [facility] [address] 90952- 9990 Apr, [facility] [address] 04142- 0792 Mar, Eustachian tube dysfunction, bilateral H69.83 [facility] [address] 85965- 6180 Mar, [facility] [address] 59156- 7944 Feb, [place] [address] 73347- 6229 Feb, Type 2 diabetes mellitus with diabetic polyneuropathy E11.42 ; Periodic limb movement sleep disorder G47.61 ; Hirsutism L68.0 ; Leukocytosis, unspecified type D72.829 and Postural dizziness R42 [facility] [id number] [place] [address] 17170- 2761 Dec, Onychomycosis B35.1 and Foot ulcer L97.509 [place] [address] 13219- 4991 Nov, [address] 97346- 1266 Nov, Preoperative cardiovascular examination Z01.810 ; Type 2 diabetes mellitus with diabetic polyneuropathy E11.42 and Essential hypertension I10 [facility] [address] 51337- 5319 Oct, 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 ; Hammertoe M20.40 and DM neuro manif type II E11.49 [facility] [id number] [place] [address] 44086- 7894 Oct, Impingement syndrome of right shoulder M75.41 [facility] [id number] [place] [address] 19515- 4916 Sep, [facility] [id number] [place] [address] 74343- 1756 Sep, [facility] [id number] [place] [address] 95124- 9102 Sep, Leukocytosis, unspecified elevated WBC count D72.829 [facility] [id number] [place] [address] 58279- 0136 Sep, Leukocytosis, unspecified elevated WBC count D72.829 [facility] [id number] [place] [address] 95546- 7833 Sep, [facility] [id number] [place] [address] 43400- 4525 Sep, [facility] [id number] [place] [address] 22494- 0817 Sep, [facility] [id number] [place] [address] 39172- 4931 Sep, Periodic limb movement sleep disorder G47.61 ; Leukocytosis , unspecified elevated WBC count D72.829 and Mixed hyperlipidemia E78.2 [facility] [id number] [place] [address] 90216- 1606 Sep, Periodic limb movement sleep disorder G47.61 [facility] [id number] [place] [address] 48593- 2362 Aug, [facility] [id number] [place] [address] 27159- 7703 Aug, Type 2 diabetes mellitus with diabetic polyneuropathy E11.42 ; 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 and Major depressive disorder , recurrent episode, mild F33.0 [facility] [id number] [place] [address] 21817- 9172 Aug, Impingement syndrome of right shoulder M75.41 [facility] [id number] [place] [address] 91839- 6797 Aug, Shortness of breath R06.02 [place] [facility] [address] 27262- 6008 Aug, [facility] [facility] [address] 40253- 6782 Aug, 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 and Type II or unspecified type diabetes mellitus with neurological manifestations, not stated as uncontrolled E11.49 [place] [facility] [address] 10324- 9931 Aug, [facility] [facility] [address] 12743- 2251 Jul, Presence of IVC filter Z95.828 [facility] [address] 93399- 9698 Jul, Rotator cuff tear, right M75.101 [facility] [id number] [place] [address] 14153- 3762 Jul, [facility] [id number] [place] [address] 55514- 0629 Jul, [facility] [id number] [place] [address] 49402- 6679 Jul, [facility] [id number] [place] [address] 51664- 1154 Jun, Leukocytosis, unspecified elevated WBC count D72.829 and Mixed hyperlipidemia E78.2 [facility] [id number] [place] [address] 89480- 7048 Jun, Type 2 diabetes mellitus with diabetic polyneuropathy E11.42 ; Hypothyroidism, unspecified hypothyroidism type E03.9 ; Elevated ALT measurement R74.0 ; Mixed hyperlipidemia E78.2 ; Primary insomnia F51.01 ; Seizure-like activity R56.9 ; Presence of IVC filter Z95.828 and Elevated liver enzymes R74.8 [facility] [id number] [place] [address] 03957- 0611 Jun, [facility] [address] 00292- 8191 Jun, Hammertoe M20.40 and 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 [facility] [address] 68591- 3271 Jun, Elevated liver enzymes R74.8 [facility] [address] 37328- 2162 Jun, Elevated liver enzymes R74.8 [facility] [facility] [address] 59587- 1324 May, Elevated liver enzymes R74.8 [facility] [address] 28593- 0936 May, Hypertension 401.9 ; Hirsutism 704.1 and Hypokalemia 276.8 [place] [id number] [place] [address] 83238- 6073 May, Hypertension 401.9 ; Hirsutism 704.1 and Hypokalemia 276.8 [facility] [address] 52860- 0398 17 May, 2015 Impingement syndrome of right shoulder 726.2 and SLAP lesion of right shoulder 840.[address] 33749- 5147 May, [address] 42214- 2036 Mar, Decreased sex drive 799.81 and Foot pain, bilateral 729.[address] [place] [address]- 6213 Mar, Impingement syndrome of right shoulder 726.2 [facility] [address], [place] [address]- 5126 Mar, [facility] [address] [id number] 10 Mar, 2015 Dental examination V72.2 [facility] [id number] [place] [address] 99748- 2190 11 Feb, 2015 Subacromial bursitis 726.19 [facility] [id number] [place] [address] 99393- 9275 Feb, [facility] [address] [place] [address] 14527- 5000 January, [facility] [id number] [place] [address] 09643- 2363 January, Muscle spasms of lower extremity 728.85 ; Diabetes mellitus , type II 250.00 ; Hypertension 401.9 ; Neuropathy 355.9 ; Hyperlipidemia LDL goal < 100 272.4 ; Hypothyroidism 244.9 ; Insomnia 780.52 ; History of Guillain- Sunflower syndrome V12.49 ; Acid reflux disease 530.81 ; Presence of IVC filter V45.89 and Anxiety 300.00 IMMUNIZATIONS No Known Immunizations SOCIAL HISTORY Never Assessed REASON FOR VISIT 1.5 HR MULTI TE PER DDS AFTER MED CLEARANCE PLAN OF CARE Activity Details Follow Up prn Reason:sloane/yearly gum check VITAL SIGNS Height 61 in 2018-02-13 Blood pressure systolic 112 mmHg 2018-02-13 Blood pressure diastolic 76 mmHg 2018-02-13 MEDICATIONS Medication Instructions Dosage Frequency Start Date End Date Duration Status OneTouch Verio - TEST DAILY 50 Active Lidoderm 5 % Externally Once a day 1 patch to intact skin remove after 12 hours 24h Aug, Active Omeprazole 40 MG TAKE ONE CAPSULE BY MOUTH ONCE DAILY 90 Active Levothyroxine Sodium 50 MCG TAKE ONE TABLET BY MOUTH ONCE DAILY (MUST HAVE APPOINTMENT FOR REFILL) 30 Active Multivitamin Active Duloxetine HCl 60 MG TAKE ONE CAPSULE BY MOUTH ONCE DAILY (MUST HAVE APPOINTMENT FOR REFILL) 30 Active Promethazine HCl 25 MG TAKE ONE TABLET BY MOUTH EVERY 6 HOURS NEEDED 15 Active Potassium Chloride 10 MEQ Orally Twice a day 1 capsule 12h 30 Active Cyclobenzaprine HCl 5 MG Orally every 8 hours as needed 1-2 tablets 30 Not-Taking Amoxicillin 500 MG Orally every 8 hrs 1 capsule 8h 7 days Not-Taking Ranitidine HCl 150 MG TAKE ONE TABLET BY MOUTH TWICE DAILY (MUST HAVE APPOINTMENT FOR REFILL) 30 Active Lisinopril 5 MG TAKE 1 TABLET BY MOUTH ONCE DAILY 90 Active Flonase 50 MCG/ACT Nasally Once a day 2 spray in each nostril 24h Mar, Active Pen [place] 32G X 4 MM as directed 24h Apr, Active Atorvastatin Calcium 40 mg Orally Once a day 1 tablet 24h 30 Active Test strips Test Strips subcutaneously - test once daily OneTouch Verio test strips as directed Apr, Active Wellbutrin SR 100 mg Orally 3 times a day 1 tablet in the morning 8h Active Josiah Mag Zinc +D3 Orally daily 1 tab 24h Not-Taking Ibuprofen 200 MG Orally every 6 hrs 1 tablet as needed 6h Active Glucometer 1 kit subcutaneously Once a day OneTouch Verio meter 24h Apr Active Metformin HCl 500 MG TAKE ONE TABLET BY MOUTH TWICE DAILY WITH MEALS (MUST HAVE APPOINTMENT FOR REFILL) Active RESULTS No Results PROCEDURES Procedure Date Ordered Result Body Site EXTRAC ERUPTED TOOTH/EXPOSED ROOT February 13, 2018 EXTRAC ERUPTED TOOTH/EXPOSED ROOT February 13, 2018 SURG REMOVAL ERUPTED TOOTH February 13, 2018 EXTRAC ERUPTED TOOTH/EXPOSED ROOT February 13, 2018 EXTRAC ERUPTED TOOTH/EXPOSED ROOT February 13, 2018 EXTRAC ERUPTED TOOTH/EXPOSED ROOT February 13, 2018 EXTRAC ERUPTED TOOTH/EXPOSED ROOT February 13, 2018 EXTRAC ERUPTED TOOTH/EXPOSED ROOT February 13, 2018 INSTRUCTIONS MEDICATIONS ADMINISTERED No Known Medications [...]
--- OUTSIDE RECORDS SUMMARY | 2018-10-08 06:02 | XMS REPORT ---
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 Active 036797065707158 Problem Leukocytosis, unspecified type D72.829 Active 649749841 Problem Gastroesophageal reflux disease, esophagitis presence not specified K21.9 Active 012959888 Problem Morbid obesity due to excess calories E66.01 Active 693234967 Problem Type 2 diabetes mellitus with foot ulcer E11.621 Active 585116519775745 Problem Fatty liver K76.0 Active 785057187 Problem Dysthymic disorder F34.1 Active 22123844 Problem Tinnitus of both ears H93.13 Active 8143320795556 Problem Hirsutism L68.0 Active 126786986 Problem Hypothyroidism, unspecified hypothyroidism type E03.9 Active 27451180 Problem Essential hypertension I10 Active 27335106 Problem Non-pressure chronic ulcer of other part of right foot limited to breakdown of skin L97.511 Active 671127184 Problem Non-pressure chronic ulcer of other part of left foot limited to breakdown of skin L97.521 Active 400801927 Problem Sensorineural hearing loss (SNHL) of both ears H90.3 Active 144377695 Problem Constipation by delayed colonic transit K59.01 Active 28711825 Problem Mixed hyperlipidemia E78.2 Active 089176494 Problem Type 2 diabetes mellitus with diabetic polyneuropathy E11.42 Active 424120205 Problem Primary insomnia F51.01 Active 144155685 Problem Anxiety F41.9 Active 38188413 Problem Elevated ALT measurement R74.0 Active 671120726 Problem DM neuro manif type II E11.49 Active 22326662 Problem 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 [address] [id number] Apr, [facility] [address] 78348- 9680 Apr, [facility] [address] 54627- 2036 Apr, Dysthymic disorder F34.1 and Anxiety F41.9 [facility] [id number] [place] [address] 44612- 4679 Mar, Acute pain of right knee M25.561 [facility] [id number] [place] [address] 29012- 8596 Mar, [facility] [id number] [place] [address] 14500- 2509 Mar, Acute pain of right knee M25.561 [facility] [id number] [place] [address] 06308- 8416 09 Mar, 2018 Type 2 diabetes mellitus with diabetic polyneuropathy E11.42 [facility] [id number] [place] [address] [id number] Mar, Dental examination Z01.20 [facility] [address] 59568- 6161 Mar, Dysthymic disorder F34.1 and Anxiety F41.9 [facility] [id number] [place] [address] 20119- 3962 Feb, [facility] [id number] [place] [address] 94492- 5697 Feb, [facility] [id number] [place] [address] 92807- 1169 Feb, Dental examination Z01.20 [facility] [id number] [place] [address] 33923- 1187 Feb, [facility] [address] 47827 -7345 Feb, Rib pain on left side R07.81 [place] [facility] [id number] [place] [address] 77706- 1963 Feb, [facility] [id number] [place] [address] 06928- 8274 Feb, [facility] [id number] [place] [address] 99501- 6171 January, [facility] [id number] [place] [address] [id number] January, Dental examination Z01.20 [facility] [id number] [place] [address] [id number] January, Dental caries K02.9 [facility] [id number] [place] [address] 76382- 9485 January, Type 2 diabetes mellitus with foot ulcer E11.621 ; Flexion deformity of finger joint of left hand M21.242 ; Chronic cough R05 ; Tinnitus of both ears H93.13 ; Sensorineural hearing loss (SNHL) of both ears H90.3 and Leukocytosis, unspecified type D72.829 [facility] [facility] [id number] [place] [address] 32894- 9720 January, 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 [facility] [facility] [id number] [place] [address] 61079- 1359 16 Dec, 2017 Cough R05 [facility] [facility] [id number] [place] [address] 45175- 6837 15 Nov, 2017 [facility] [facility] [id number] [place] [address] 60913- 8286 05 Nov, 2017 Screening for breast cancer Z12.31 [facility] [facility] [id number] [place] [address] 34978- 1000 12 Oct, 2017 [facility] [facility] [id number] [place] [address] 43642- 7473 12 Oct, 2017 [facility] [facility] [id number] [place] [address] 02247- 5214 07 Oct, 2017 Type 2 diabetes mellitus [...] foot limited to breakdown of skin L97.521 [id number] [place] [address] 18452- 9249 Sep, [facility] [id number] [place] [address] 69562- 9303 Sep, [facility] [id number] [place] [address] 40376- 5969 Aug, 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 [facility] [id number] [place] [address] 05045- 0553 Jul, [facility] [id number] [place] [address] 47546- 5716 May, Type 2 diabetes mellitus with diabetic polyneuropathy E11.42 [facility] [id number] [place] [address] 02118- 5683 18 May, 2017 [facility] [id number] [place] [address] 30677- 3017 May, [facility] [id number] [place] [address] 09496- 8460 Apr, Type 2 diabetes mellitus with diabetic polyneuropathy E11.42 and Morbid obesity due to excess calories E66.01 [facility] [id number] [place] [address] 08239- 6909 Apr, [facility] [id number] [place] [address] 74799- 3032 Apr, Type 2 diabetes mellitus with diabetic polyneuropathy E11.42 [facility] [address] [address] Apr, [facility] [id number] [place] [address] 80174- 6555 Mar, [facility] [id number] [place] [address] 28247- 7911 Mar, [facility] [address] [address]- 6886 Mar, [facility] [id number] [place] [address] 17426- 6495 Mar, Type 2 diabetes mellitus with diabetic polyneuropathy E11.42 [facility] [id number] [place] [address] 74687- 7239 Feb, [facility] [id number] [place] [address] 76937- 9918 Feb, [facility] [id number] [place] [address] 32610- 4460 Feb, Type 2 diabetes mellitus with diabetic polyneuropathy E11.42 ; Preoperative examination Z01.818 ; Wound, open, foot, left, initial encounter S91.302A ; Weight loss R63.4 and Tobacco abuse Z72.0 [facility] [id number] [place] [address] 18888- 5019 Nov, [facility] [id number] [place] [address] 77978- 7071 Nov, Pelvic pain R10.2 [facility] [id number] [place] [address] 98320- 0470 Nov, Morbid obesity due to excess calories E66.01 [facility] [id number] [place] [address] 06082- 9708 Nov, [facility] [id number] [place] [address] 88032- 1175 Nov, [facility] [id number] [place] [address] 16845- 3059 Nov, [facility] [id number] [place] [address] 31723- 0042 Nov, [facility] [id number] [place] [address] 37953- 4645 Oct, [facility] [id number] [place] [address] 41930- 5760 Oct, [facility] [id number] [place] [address] 75290- 8646 Oct, Well woman exam Z01.419 ; Pelvic pain R10.2 and Type 2 diabetes mellitus with diabetic polyneuropathy E11.42 [facility] [facility] [id number] [place] [address] 33252- 3636 Oct, 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 [facility] [facility] [address] 39835- 2994 Sep, Essential hypertension I10 ; Mixed hyperlipidemia E78.2 ; Leukocytosis, unspecified type D72.829 and Morbid obesity due to excess calories E66.[address] 00783- 7675 Sep, [facility] [facility] [address] 49885- 6359 Aug, Hypothyroidism, unspecified hypothyroidism type E03.9 [place] [facility] [address] 90038- 4398 Aug, Hirsutism L68.0 ; Primary insomnia F51.01 ; BMI 37.0-37.9, adult Z68.37 and Gastroesophageal reflux disease, esophagitis presence not specified K21.9 [facility] [facility] [id number] [place] [address] 48337- 4846 Jul, [facility] [facility] [id number] [place] [address] 57277- 0064 Jun, [facility] [facility] [id number] [place] [address] 46060- 8957 Jun, [place] [facility] [address] 62285- 7543 Jun, Hypothyroidism, unspecified hypothyroidism type E03.9 [place] [facility] [id number] [place] [address] 93569- 8206 Jun, Type 2 diabetes mellitus with diabetic polyneuropathy E11.42 ; Fatty liver K76.0 ; Leukocytosis, unspecified type D72.829 ; Morbid obesity due to excess calories E66.01 ; Hypotension due to drugs I95.2 ; Non- intractable vomiting with nausea, unspecified vomiting type R11.2 and Mixed hyperlipidemia E78.2 [place] [facility] [id number] [place] [address] 70087- 6835 Jun, [facility] [facility] [id number] [place] [address] 58222- 9688 Apr, [place] [facility] [address] 63128- 7318 Apr, [place] [facility] [address] 04109- 0563 Mar, Eustachian tube dysfunction, bilateral H69.83 [place] [address] 77637- 8702 Mar, [place] [facility] [address] 91813- 7282 Feb, [facility] [facility] [id number] [place] [address] 54237- 2304 Feb, Type 2 diabetes mellitus with diabetic polyneuropathy E11.42 ; Periodic limb movement sleep disorder G47.61 ; Hirsutism L68.0 ; Leukocytosis, unspecified type D72.829 and Postural dizziness R42 [place] [facility] [id number] [place] [address] 46551- 9465 Dec, Onychomycosis B35.1 and Foot ulcer L97.509 [place] [facility] [id number] [place] [address] 32887- 6089 Nov, [place] [address] 58851- 6855 Nov, Preoperative cardiovascular examination Z01.810 ; Type 2 diabetes mellitus with diabetic polyneuropathy E11.42 and Essential hypertension I10 [place] [facility] [id number] [place] [address] 09503- 7669 Oct, 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 ; Hammertoe M20.40 and DM neuro manif type II E11.49 [facility] [facility] [id number] [place] [address] 26333- 0784 11 Oct, 2015 Impingement syndrome of right shoulder M75.41 [facility] [facility] [id number] [place] [address] 25199- 8276 Sep, [facility] [facility] [id number] [place] [address] 05602- 3918 Sep, [facility] [facility] [id number] [place] [address] 22232- 8587 Sep, Leukocytosis, unspecified elevated WBC count D72.829 [place] [facility] [id number] [place] [address] 26827- 7385 Sep, Leukocytosis, unspecified elevated WBC count D72.829 [place] [facility] [id number] [place] [address] 59428- 1439 Sep, [place] [facility] [id number] [place] [address] 08047- 5712 Sep, [place] [facility] [id number] [place] [address] 48654- 3996 Sep, [facility] [facility] [id number] [place] [address] 48303- 0684 Sep, Periodic limb movement sleep disorder G47.61 ; Leukocytosis , unspecified elevated WBC count D72.829 and Mixed hyperlipidemia E78.2 [place] [facility] [id number] [place] [address] 17490- 2257 Sep, Periodic limb movement sleep disorder G47.61 [facility] [facility] [id number] [place] [address] 95398- 3135 Aug, [facility] [facility] [id number] [place] [address] 32660- 6492 Aug, Type 2 diabetes mellitus with diabetic polyneuropathy E11.42 ; 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 and Major depressive disorder , recurrent episode, mild F33.0 [place] [address] 28442- 3767 Aug, Impingement syndrome of right shoulder M75.41 [place] [facility] [address] 31398- 4305 Aug, Shortness of breath R06.02 [place] [address] 57246- 3126 Aug, [place] [address] 72627- 0927 Aug, 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 and Type II or unspecified type diabetes mellitus with neurological manifestations, not stated as uncontrolled E11.49 [place] [address] 04644- 0493 Aug, [place] [facility] [address] 68812- 5967 Jul, Presence of IVC filter Z95.828 [place] [address] 21739- 5695 Jul, Rotator cuff tear, right M75.101 [place] [address] 82040- 1364 Jul, [place] [address] 46655- 5381 Jul, [place] [address] 02705- 7627 Jul, [place] [address] 70721- 6659 Jun, Leukocytosis, unspecified elevated WBC count D72.829 and Mixed hyperlipidemia E78.2 [place] [address] 36112- 4946 Jun, Type 2 diabetes mellitus with diabetic polyneuropathy E11.42 ; Hypothyroidism, unspecified hypothyroidism type E03.9 ; Elevated ALT measurement R74.0 ; Mixed hyperlipidemia E78.2 ; Primary insomnia F51.01 ; Seizure-like activity R56.9 ; Presence of IVC filter Z95.828 and Elevated liver enzymes R74.8 [place] [address] 19228- 8315 Jun, [place] [address] 76163- 6568 Jun, Hammertoe M20.40 and 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 [place] [address] 29377- 4533 Jun, Elevated liver enzymes R74.8 [place] [address] 73632- 6651 Jun, Elevated liver enzymes R74.8 [place] [address] 01503- 7718 May, Elevated liver enzymes R74.8 [place] [address] 67625- 0613 May, Hypertension 401.9 ; Hirsutism 704.1 and Hypokalemia 276.8 [place] [facility] [id number] [place] [address] 02844- 8094 May, Hypertension 401.9 ; Hirsutism 704.1 and Hypokalemia 276.8 [place] [address] 45600- 0226 17 May, 2015 Impingement syndrome of right shoulder 726.2 and SLAP lesion of right shoulder 840.7 [place] [address] 66535- 6155 May, [place] [address] 46498- 7931 Mar, Decreased sex drive 799.81 and Foot pain, bilateral 729.5 [facility] [id number] [address]- 8997 Mar, Impingement syndrome of right shoulder 726.2 [facility] [address], [place] [address] 0[address] Mar, [facility] [id number] [id number] Mar, Dental examination V72.2 [facility] [id number] [place] [address] 98924- 7995 11 Feb, 2015 Subacromial bursitis 726.19 [facility] [id number] [place] [address] 05569- 9900 Feb, [facility] [id number] [place] [address] 31321- 3114 January, [facility] [id number] [place] [address] 34707- 4629 January, Muscle spasms of lower extremity 728.85 ; Diabetes mellitus , type II 250.00 ; Hypertension 401.9 ; Neuropathy 355.9 ; Hyperlipidemia LDL goal < 100 272.4 ; Hypothyroidism 244.9 ; Insomnia 780.52 ; History of Guillain- Sherwood syndrome V12.49 ; Acid reflux disease 530.81 ; Presence of IVC filter V45.89 and Anxiety 300.00 IMMUNIZATIONS No Known Immunizations SOCIAL HISTORY Never Assessed REASON FOR VISIT Left hand concerns PLAN OF CARE VITAL SIGNS MEDICATIONS Unknown [...]
--- OUTSIDE RECORDS SUMMARY | 2018-10-08 06:02 | XMS REPORT ---
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 Active 744000827864291 Problem Leukocytosis, unspecified type D72.829 Active 925544743 Problem Gastroesophageal reflux disease, esophagitis presence not specified K21.9 Active 030736107 Problem Morbid obesity due to excess calories E66.01 Active 854314491 Problem Type 2 diabetes mellitus with foot ulcer E11.621 Active 869704383243348 Problem Fatty liver K76.0 Active 169149963 Problem Dysthymic disorder F34.1 Active 08397774 Problem Tinnitus of both ears H93.13 Active 6452044821823 Problem Hirsutism L68.0 Active 696872465 Problem Hypothyroidism, unspecified hypothyroidism type E03.9 Active 04667465 Problem Essential hypertension I10 Active 97527231 Problem Non-pressure chronic ulcer of other part of right foot limited to breakdown of skin L97.511 Active 671269331 Problem Non-pressure chronic ulcer of other part of left foot limited to breakdown of skin L97.521 Active 946702730 Problem Sensorineural hearing loss (SNHL) of both ears H90.3 Active 245955254 Problem Constipation by delayed colonic transit K59.01 Active 83826939 Problem Mixed hyperlipidemia E78.2 Active 700221695 Problem Type 2 diabetes mellitus with diabetic polyneuropathy E11.42 Active 358593939 Problem Primary insomnia F51.01 Active 656799983 Problem Anxiety F41.9 Active 40351267 Problem Elevated ALT measurement R74.0 Active 796853102 Problem DM neuro manif type II E11.49 Active 87716534 Problem 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 Active 897677748 Problem Type II or unspecified type diabetes mellitus with neurological manifestations, not stated as uncontrolled E11.49 Active 53040640 ALLERGIES No Known Allergies ENCOUNTERS Encounter Location Date Diagnosis [facility] [id number] [place] [address] 25514- 3490 18 May, 2018 [facility] [address] 11614- 1997 04 May, 2018 [facility] [id number] [place] [address] 18101- 2488 Apr, [facility] [id number] [place] [address] [id number] Apr, [facility] [id number] [place] [address] 62079- 1976 Apr, [facility] [id number] [place] [address] 48618- 0340 Apr, Dysthymic disorder F34.1 and Anxiety F41.9 [facility] [id number] [place] [address] 03147- 1843 Mar, Acute pain of right knee M25.561 [facility] [id number] [place] [address] 87599- 7369 Mar, [facility] [id number] [place] [address] 50369- 9564 Mar, Acute pain of right knee M25.561 [facility] [id number] [place] [address] 67346- 5486 09 Mar, 2018 Type 2 diabetes mellitus with diabetic polyneuropathy E11.42 [facility] [id number] [place] [address] [id number] Mar, Dental examination Z01.20 [facility] [address] 90537- 6343 Mar, Dysthymic disorder F34.1 and Anxiety F41.9 [facility] [id number] [place] [address] 66946- 7588 Feb, [facility] [id number] [place] [address] 92552- 7975 Feb, [facility] [id number] [place] [address] 63212- 3035 Feb, Dental examination Z01.20 [facility] [id number] [place] [address] 38283- 6355 Feb, [facility] [address] [address] Feb, Rib pain on left side R07.81 [facility] [id number] [place] [address] 35705- 1967 Feb, [facility] [id number] [place] [address] 92545- 8638 Feb, [facility] [id number] [place] [address] 99352- 3365 January, [facility] [id number] [place] [address] [id number] January, Dental examination Z01.20 [facility] [id number] [place] [address] [id number] January, Dental caries K02.9 [facility] [id number] [place] [address] 03849- 8291 January, Type 2 diabetes mellitus with foot ulcer E11.621 ; Flexion deformity of finger joint of left hand M21.242 ; Chronic cough R05 ; Tinnitus of both ears H93.13 ; Sensorineural hearing loss (SNHL) of both ears H90.3 and Leukocytosis, unspecified type D72.829 [facility] [id number] [place] [address] 01354- 4317 January, [facility] [id number] [id number] Dec, Dental examination Z01.20 [facility] [id number] [place] [address] 58328- 1589 Dec, Medicare annual wellness visit, initial Z00.00 ; DM neuro manif type II E11.49 ; Morbid obesity due to excess calories E66.01 ; Essential hypertension I10 ; Anxiety F41.9 ; 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 ; Encounter for immunization Z23 ; Cough R05 and 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 [facility] [address] 38448- 5626 16 Dec, 2017 Cough R05 [facility] [id number] [place] [address] 26864- 6543 15 Nov, 2017 [facility] [address] 37148- 4974 05 Nov, 2017 Screening for breast cancer Z12.31 [facility] [id number] [place] [address] 06222- 3346 12 Oct, 2017 [facility] [id number] [place] [address] 94294- 9035 12 Oct, 2017 [facility] [id number] [place] [address] 41842- 6971 07 Oct, 2017 Type 2 diabetes mellitus [...] foot limited to breakdown of skin L97.521 [facility] [id number] [place] [address] 00167- 7285 Sep, [facility] [address] [place] [address] 0342 Sep, [facility] [id number] [place] [address] 16272- 2761 Aug, 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 [facility] [id number] [place] [address] 57673- 0506 Jul, [facility] [id number] [place] [address] 45589- 9844 May, Type 2 diabetes mellitus with diabetic polyneuropathy E11.42 [facility] [id number] [place] [address] 77753- 8480 18 May, 2017 [facility] [id number] [place] [address] 76237- 8357 May, [facility] [id number] [place] [address] 88755- 1805 Apr, Type 2 diabetes mellitus with diabetic polyneuropathy E11.42 and Morbid obesity due to excess calories E66.01 [facility] [address] [address] 6549 Apr, [facility] [address] [place] [address]- 6833 Apr, Type 2 diabetes mellitus with diabetic polyneuropathy E11.42 [facility] [address] [place] [address] Apr, [facility] [address] [place] [address]- 6650 Mar, [facility] [id number] [place] [address] 13778- 1990 Mar, [facility] [address] [place] [address]- 8152 Mar, [facility] [id number] [address]- 5943 Mar, Type 2 diabetes mellitus with diabetic polyneuropathy E11.42 [facility] [id number] [place] [address] 73012- 0682 Feb, [facility] [id number] [place] [address] 90994- 4994 Feb, [facility] [id number] [place] [address] 57777- 1021 Feb, Type 2 diabetes mellitus with diabetic polyneuropathy E11.42 ; Preoperative examination Z01.818 ; Wound, open, foot, left, initial encounter S91.302A ; Weight loss R63.4 and Tobacco abuse Z72.0 [facility] [id number] [place] [address] 79673- 6609 Nov, [facility] [id number] [place] [address] 65009- 1734 Nov, Pelvic pain R10.2 [facility] [id number] [place] [address] 32531- 3634 Nov, Morbid obesity due to excess calories E66.01 [facility] [id number] [place] [address] 32670- 5192 Nov, [facility] [id number] [place] [address] 30674- 2392 Nov, [facility] [id number] [place] [address] 71932- 6721 Nov, [facility] [id number] [place] [address] 14498- 6452 Nov, [facility] [id number] [place] [address] 24851- 8123 Oct, [facility] [id number] [place] [address] 43793- 3152 Oct, [facility] [id number] [place] [address] 08426- 5168 Oct, Well woman exam Z01.419 ; Pelvic pain R10.2 and Type 2 diabetes mellitus with diabetic polyneuropathy E11.42 [facility] [id number] [place] [address] 39672- 6430 Oct, 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 [facility] [address] 32504- 9690 Sep, Essential hypertension I10 ; Mixed hyperlipidemia E78.2 ; Leukocytosis, unspecified type D72.829 and Morbid obesity due to excess calories E66.01 [facility] [address] 69685- 4061 Sep, [facility] [id number] [place] [address] 67709- 1080 Aug, Hypothyroidism, unspecified hypothyroidism type E03.9 [facility] [address] 76592- 3018 Aug, Hirsutism L68.0 ; Primary insomnia F51.01 ; BMI 37.0-37.9, adult Z68.37 and Gastroesophageal reflux disease, esophagitis presence not specified K21.9 [facility] [id number] [place] [address] 65569- 7585 Jul, [facility] [id number] [place] [address] 30317- 6774 Jun, [facility] [id number] [place] [address] 56846- 1101 Jun, [facility] [address] 41049- 0628 Jun, Hypothyroidism, unspecified hypothyroidism type E03.9 [facility] [id number] [place] [address] 19282- 6982 Jun, Type 2 diabetes mellitus with diabetic polyneuropathy E11.42 ; Fatty liver K76.0 ; Leukocytosis, unspecified type D72.829 ; Morbid obesity due to excess calories E66.01 ; Hypotension due to drugs I95.2 ; Non- intractable vomiting with nausea, unspecified vomiting type R11.2 and Mixed hyperlipidemia E78.2 [facility] [id number] [place] [address] 15424- 3203 Jun, [facility] [address] 70944- 0847 Apr, [facility] [address] 99633- 9961 Apr, [facility] [address] 08378- 2417 Mar, Eustachian tube dysfunction, bilateral H69.83 [facility] [address] 27367- 9402 Mar, [facility] [address] 61114- 7619 Feb, [facility] [address] 65995- 4216 Feb, Type 2 diabetes mellitus with diabetic polyneuropathy E11.42 ; Periodic limb movement sleep disorder G47.61 ; Hirsutism L68.0 ; Leukocytosis, unspecified type D72.829 and Postural dizziness R42 [facility] [id number] [place] [address] 83917- 9908 Dec, Onychomycosis B35.1 and Foot ulcer L97.509 [facility] [id number] [place] [address] 97587- 8659 Nov, [address] 18346- 8197 Nov, Preoperative cardiovascular examination Z01.810 ; Type 2 diabetes mellitus with diabetic polyneuropathy E11.42 and Essential hypertension I10 [facility] [address] 31548- 4788 Oct, 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 ; Hammertoe M20.40 and DM neuro manif type II E11.49 [facility] [id number] [place] [address] 54107- 9476 11 Oct, 2015 Impingement syndrome of right shoulder M75.41 [facility] [id number] [place] [address] 65217- 3896 Sep, [facility] [address] 42859- 9686 Sep, [facility] [id number] [place] [address] 28326- 3275 Sep, Leukocytosis, unspecified elevated WBC count D72.829 [facility] [id number] [place] [address] 24736- 7633 Sep, Leukocytosis, unspecified elevated WBC count D72.829 [facility] [id number] [place] [address] 71352- 6281 Sep, [facility] [id number] [place] [address] 02915- 2926 Sep, [facility] [id number] [place] [address] 87632- 6414 Sep, [facility] [id number] [place] [address] 62827- 8458 Sep, Periodic limb movement sleep disorder G47.61 ; Leukocytosis , unspecified elevated WBC count D72.829 and Mixed hyperlipidemia E78.2 [facility] [id number] [place] [address] 80680- 2471 Sep, Periodic limb movement sleep disorder G47.61 [facility] [id number] [place] [address] 49889- 1200 Aug, [facility] [id number] [place] [address] 66136- 6029 Aug, Type 2 diabetes mellitus with diabetic polyneuropathy E11.42 ; 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 and Major depressive disorder , recurrent episode, mild F33.0 [facility] [address] 82692- 5039 Aug, Impingement syndrome of right shoulder M75.41 [facility] [address] 75929- 0414 Aug, Shortness of breath R06.02 [facility] [address] 01419- 2069 Aug, [facility] [address] 71729- 4593 Aug, 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 and Type II or unspecified type diabetes mellitus with neurological manifestations, not stated as uncontrolled E11.[address] 94312- 7116 Aug, [facility] [address] 63302- 4445 Jul, Presence of IVC filter Z95.[address] 30188- 6035 Jul, Rotator cuff tear, right M75.101 [facility] [address] 64890- 5229 Jul, [facility] [address] 94021- 8430 Jul, [facility] [address] 93901- 1634 Jul, [facility] [address] 28158- 8120 Jun, Leukocytosis, unspecified elevated WBC count D72.829 and Mixed hyperlipidemia E78.2 [facility] [address] 25649- 7508 Jun, Type 2 diabetes mellitus with diabetic polyneuropathy E11.42 ; Hypothyroidism, unspecified hypothyroidism type E03.9 ; Elevated ALT measurement R74.0 ; Mixed hyperlipidemia E78.2 ; Primary insomnia F51.01 ; Seizure-like activity R56.9 ; Presence of IVC filter Z95.828 and Elevated liver enzymes R74.8 [facility] [address] 88866- 4709 Jun, [facility] [address] 97485- 5815 Jun, Hammertoe M20.40 and 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 [facility] [address] 36088- 9984 Jun, Elevated liver enzymes R74.8 [facility] [address] 76778- 6228 Jun, Elevated liver enzymes R74.8 [facility] [address] 73228- 8137 May, Elevated liver enzymes R74.8 [facility] [address] 80296- 8153 May, Hypertension 401.9 ; Hirsutism 704.1 and Hypokalemia 276.8 [facility] [address] 10903- 3823 May, Hypertension 401.9 ; Hirsutism 704.1 and Hypokalemia 276.8 [facility] [address] 77129- 1886 17 May, 2015 Impingement syndrome of right shoulder 726.2 and SLAP lesion of right shoulder 840.[address] 00895- 8192 May, [facility] [address] 23443- 2734 Mar, Decreased sex drive 799.81 and Foot pain, bilateral 729.5 [facility] [address] [place] [address]- 6692 Mar, Impingement syndrome of right shoulder 726.2 [facility] [address] [place] [address]- 7233 Mar, [facility] [id number] [id number] Mar, Dental examination V72.2 [facility] [id number] [place] [address] 08781- 6191 11 Feb, 2015 Subacromial bursitis 726.19 [facility] [id number] [place] [address] 98260- 0014 Feb, [facility] [address] [place] [address] 94600- 3008 January, [facility] [id number] [place] [address] 74065- 4959 January, Muscle spasms of lower extremity 728.85 ; Diabetes mellitus , type II 250.00 ; Hypertension 401.9 ; Neuropathy 355.9 ; Hyperlipidemia LDL goal < 100 272.4 ; Hypothyroidism 244.9 ; Insomnia 780.52 ; History of Guillain- Bath syndrome V12.49 ; Acid reflux disease 530.81 ; Presence of IVC filter V45.89 and Anxiety 300.00 IMMUNIZATIONS No Known Immunizations SOCIAL HISTORY Never Assessed REASON FOR VISIT Diabetes--benij Barney A1C faxed to [facility] at wound care and Dr. Carlisle PLAN OF CARE Activity Details Follow Up 3 Months Reason:DMII VITAL SIGNS Height 61 in 2018-02-12 Weight 165.7 lbs 2018-02-12 Temperature 98.2 degrees Fahrenheit 2018-02-12 Heart Rate 90 bpm 2018-02-12 Respiratory Rate 20 2018-02-12 BMI 31.31 kg/m2 2018-02-12 Blood pressure systolic 118 mmHg 2018-02-12 Blood pressure diastolic 74 mmHg 2018-02-12 MEDICATIONS Medication Instructions Dosage Frequency Start Date End Date Duration Status OneTouch Verio - TEST DAILY 50 Active Test strips Test Strips subcutaneously - test once daily OneTouch Verio test strips as directed Apr, Active Lisinopril 5 MG TAKE 1 TABLET BY MOUTH ONCE DAILY 90 Active Wellbutrin SR 100 mg Orally 3 times a day 1 tablet in the morning 8h Active Ibuprofen 200 MG Orally every 6 hrs 1 tablet as needed 6h Active Levothyroxine Sodium 50 MCG TAKE ONE [...] hrs 1 capsule 8h 7 days Not-Taking Duloxetine HCl 60 MG TAKE ONE CAPSULE BY MOUTH ONCE DAILY (MUST HAVE APPOINTMENT FOR REFILL) 30 Active Ranitidine HCl 150 MG TAKE ONE TABLET BY MOUTH TWICE DAILY (MUST HAVE APPOINTMENT FOR REFILL) 30 Active Omeprazole 40 MG TAKE ONE CAPSULE BY MOUTH ONCE DAILY 90 Active Glucometer 1 kit subcutaneously Once a day OneTouch Verio meter 24h Apr Active Flonase 50 MCG/ACT Nasally Once a day 2 spray in each nostril 24h Mar, Active Metformin HCl 500 MG TAKE ONE TABLET BY MOUTH TWICE DAILY WITH MEALS (MUST HAVE APPOINTMENT FOR REFILL) Active Lidoderm 5 % Externally Once a day 1 patch to intact skin remove after 12 hours 24h Aug, Active Josiah Mag Zinc +D3 Orally daily 1 tab 24h Not-Taking Multivitamin Active Pen Maple 32G X 4 MM as directed 24h Apr, Active Atorvastatin Calcium 40 mg Orally Once a day 1 tablet 24h 30 Active RESULTS Name Result Date Reference Range A1C (IN HOUSE) 2018-02-12 A1C IN HOUSE 5.3 4.3 - 5.6 % Previous A1c 5.4 Lot [id number] Exp date 10/2019 CT Scan : Chest w/o Contrast 2018-02-20 PROCEDURES Procedure Date Ordered Result Body Site GLYCATED HEMOGLOBIN TEST February 12, 2018 [facility] VISIT ESTABLISHED PATIENT February 12, 2018 INSTRUCTIONS MEDICATIONS ADMINISTERED No Known Medications [...]
--- OUTSIDE RECORDS SUMMARY | 2018-10-08 06:03 | XMS REPORT ---
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 Active 184586630418820 Problem Leukocytosis, unspecified type D72.829 Active 204592513 Problem Gastroesophageal reflux disease, esophagitis presence not specified K21.9 Active 871642165 Problem Morbid obesity due to excess calories E66.01 Active 864202124 Problem Type 2 diabetes mellitus with foot ulcer E11.621 Active 697324742621464 Problem Fatty liver K76.0 Active 397572348 Problem Dysthymic disorder F34.1 Active 45858745 Problem Tinnitus of both ears H93.13 Active 3737808363508 Problem Hirsutism L68.0 Active 227343597 Problem Hypothyroidism, unspecified hypothyroidism type E03.9 Active 71746498 Problem Essential hypertension I10 Active 38895229 Problem Non-pressure chronic ulcer of other part of right foot limited to breakdown of skin L97.511 Active 170397976 Problem Non-pressure chronic ulcer of other part of left foot limited to breakdown of skin L97.521 Active 841406826 Problem Sensorineural hearing loss (SNHL) of both ears H90.3 Active 968041627 Problem Constipation by delayed colonic transit K59.01 Active 22858529 Problem Mixed hyperlipidemia E78.2 Active 840952138 Problem Type 2 diabetes mellitus with diabetic polyneuropathy E11.42 Active 345689971 Problem Primary insomnia F51.01 Active 976480681 Problem Anxiety F41.9 Active 95237387 Problem Elevated ALT measurement R74.0 Active 572379187 Problem DM neuro manif type II E11.49 Active 63036020 Problem 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 Active 185280248 Problem Type II or unspecified type diabetes mellitus with neurological manifestations, not stated as uncontrolled E11.49 Active 52783342 ALLERGIES No Known Allergies ENCOUNTERS Encounter Location Date Diagnosis [facility] [id number] [place] [address] 70642- 3773 May, [facility] [address] 02072- 9522 May, [facility] [id number] [place] [address] 70552- 8226 Apr, [facility] [address] [id number] Apr, [facility] [address] 34007- 3003 Apr, [facility] [address] 24321- 9395 Apr, Dysthymic disorder F34.1 and Anxiety F41.9 [facility] [address] 24355- 6317 Mar, Acute pain of right knee M25.561 [facility] [id number] [place] [address] 91723- 7529 Mar, [facility] [id number] [place] [address] 80941- 9265 Mar, Acute pain of right knee M25.561 [facility] [id number] [place] [address] 30490- 9406 Mar, Type 2 diabetes mellitus with diabetic polyneuropathy E11.42 [facility] [address] [place] [address] [id number] Mar, Dental examination Z01.20 [facility] [id number] [place] [address] 61877- 2327 Mar, Dysthymic disorder F34.1 and Anxiety F41.9 [facility] [id number] [place] [address] 94810- 0116 Feb, [facility] [id number] [place] [address] 71811- 6354 Feb, [facility] [id number] [place] [address] 74595- 7629 Feb, Dental examination Z01.20 [facility] [id number] [place] [address] 82382- 2436 Feb, [facility] [id number] [place] [address] 02003 -9473 Feb, Rib pain on left side R07.81 [facility] [id number] [place] [address] 09042- 5498 Feb, [facility] [address] 99179- 0269 Feb, [facility] [id number] [place] [address] 84199- 4338 January, [facility] [address] [id number] January, Dental examination Z01.20 [facility] [id number] [place] [address] [id number] January, Dental caries K02.9 [facility] [id number] [place] [address] 91693- 5790 January, Type 2 diabetes mellitus with foot ulcer E11.621 ; Flexion deformity of finger joint of left hand M21.242 ; Chronic cough R05 ; Tinnitus of both ears H93.13 ; Sensorineural hearing loss (SNHL) of both ears H90.3 and Leukocytosis, unspecified type D72.829 [facility] [id number] [place] [address] 12238- 0676 January, [facility] [address] [id number] Dec, Dental examination Z01.20 [facility] [id number] [place] [address] 28834- 5538 Dec, Medicare annual wellness visit, initial Z00.00 ; DM neuro manif type II E11.49 ; Morbid obesity due to excess calories E66.01 ; Essential hypertension I10 ; Anxiety F41.9 ; 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 ; Encounter for immunization Z23 ; Cough R05 and 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 [facility] [address] 60279- 5061 16 Dec, 2017 Cough R05 [facility] [address] 91653- 0121 15 Nov, [address] 34936- 6484 05 Nov, 2017 Screening for breast cancer Z12.31 [facility] [id number] [place] [address] 47341- 6939 12 Oct, [address] 04241- 4801 Oct, [facility] [id number] [place] [address] 15169- 4154 07 Oct, 2017 Type 2 diabetes mellitus [...] foot limited to breakdown of skin L97.521 [place] [id number] [place] [address] 35243- 8746 Sep, [facility] [address] [address]- 2491 Sep, [facility] [id number] [place] [address] 73389- 5551 Aug, 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 [facility] [id number] [place] [address] 44533- 3980 Jul, [facility] [id number] [place] [address] 33886- 5542 May, Type 2 diabetes mellitus with diabetic polyneuropathy E11.42 [facility] [id number] [place] [address] 99558- 9273 May, [facility] [id number] [place] [address] 90312- 3660 May, [facility] [id number] [place] [address] 42561- 9079 Apr, Type 2 diabetes mellitus with diabetic polyneuropathy E11.42 and Morbid obesity due to excess calories E66.01 [facility] [address] [address]- 6913 Apr, [facility] [id number] [address]- 9210 Apr, Type 2 diabetes mellitus with diabetic polyneuropathy E11.42 [facility] [address] [address] Apr, [facility] [address] [address]- 9744 Mar, [facility] [id number] [address]- 3528 Mar, [facility] [address] [address]- 5837 Mar, [facility] [address] [address]- 3249 Mar, Type 2 diabetes mellitus with diabetic polyneuropathy E11.42 [facility] [address] [address]- 2538 Feb, [facility] [id number] [place] [address] 79480- 4194 Feb, [facility] [id number] [place] [address] 99698- 7600 Feb, Type 2 diabetes mellitus with diabetic polyneuropathy E11.42 ; Preoperative examination Z01.818 ; Wound, open, foot, left, initial encounter S91.302A ; Weight loss R63.4 and Tobacco abuse Z72.0 [facility] [id number] [place] [address] 79035- 9535 Nov, [facility] [id number] [place] [address] 01777- 3653 Nov, Pelvic pain R10.2 [facility] [id number] [place] [address] 40854- 5605 Nov, Morbid obesity due to excess calories E66.01 [facility] [id number] [place] [address] 76218- 2846 Nov, [facility] [id number] [place] [address] 89299- 6013 Nov, [facility] [id number] [place] [address] 66025- 4741 Nov, [facility] [id number] [place] [address] 71292- 5884 Nov, [facility] [id number] [place] [address] 20816- 7648 Oct, [facility] [id number] [place] [address] 18195- 8872 Oct, [facility] [id number] [place] [address] 20235- 4642 Oct, Well woman exam Z01.419 ; Pelvic pain R10.2 and Type 2 diabetes mellitus with diabetic polyneuropathy E11.42 [facility] [id number] [place] [address] 30495- 5513 Oct, 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 [facility] [address] 77824- 0535 Sep, Essential hypertension I10 ; Mixed hyperlipidemia E78.2 ; Leukocytosis, unspecified type D72.829 and Morbid obesity due to excess calories E66.01 [facility] [id number] [place] [address] 21705- 7023 Sep, [facility] [address] 58333- 0699 Aug, Hypothyroidism, unspecified hypothyroidism type E03.9 [facility] [address] 32595- 1571 Aug, Hirsutism L68.0 ; Primary insomnia F51.01 ; BMI 37.0-37.9, adult Z68.37 and Gastroesophageal reflux disease, esophagitis presence not specified K21.9 [facility] [id number] [place] [address] 78640- 9843 Jul, [facility] [id number] [place] [address] 12380- 3847 Jun, [facility] [id number] [place] [address] 24797- 8988 Jun, [facility] [id number] [place] [address] 45778- 7998 Jun, Hypothyroidism, unspecified hypothyroidism type E03.9 [facility] [id number] [place] [address] 84949- 9270 Jun, Type 2 diabetes mellitus with diabetic polyneuropathy E11.42 ; Fatty liver K76.0 ; Leukocytosis, unspecified type D72.829 ; Morbid obesity due to excess calories E66.01 ; Hypotension due to drugs I95.2 ; Non- intractable vomiting with nausea, unspecified vomiting type R11.2 and Mixed hyperlipidemia E78.2 [facility] [address] 64743- 1234 Jun, [facility] [address] 65612- 6208 Apr, [facility] [address] 89368- 9393 Apr, [facility] [address] 84409- 3429 Mar, Eustachian tube dysfunction, bilateral H69.83 [facility] [address] 55176- 5514 Mar, [facility] [address] 16790- 9919 Feb, [facility] [address] 91504- 8183 Feb, Type 2 diabetes mellitus with diabetic polyneuropathy E11.42 ; Periodic limb movement sleep disorder G47.61 ; Hirsutism L68.0 ; Leukocytosis, unspecified type D72.829 and Postural dizziness R42 [facility] [id number] [place] [address] 35107- 3597 Dec, Onychomycosis B35.1 and Foot ulcer L97.509 [facility] [address] 44697- 3181 Nov, [address] 58232- 1997 Nov, Preoperative cardiovascular examination Z01.810 ; Type 2 diabetes mellitus with diabetic polyneuropathy E11.42 and Essential hypertension I10 [facility] [address] 53176- 9900 Oct, 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 ; Hammertoe M20.40 and DM neuro manif type II E11.49 [facility] [id number] [place] [address] 99336- 4616 Oct, Impingement syndrome of right shoulder M75.41 [facility] [id number] [place] [address] 15486- 6986 Sep, [facility] [id number] [place] [address] 70517- 2726 Sep, [facility] [id number] [place] [address] 13547- 6933 Sep, Leukocytosis, unspecified elevated WBC count D72.829 [facility] [id number] [place] [address] 37440- 6082 Sep, Leukocytosis, unspecified elevated WBC count D72.829 [facility] [id number] [place] [address] 48579- 7848 Sep, [facility] [id number] [place] [address] 88709- 3030 Sep, [facility] [id number] [place] [address] 26879- 6764 Sep, [facility] [id number] [place] [address] 51760- 6357 Sep, Periodic limb movement sleep disorder G47.61 ; Leukocytosis , unspecified elevated WBC count D72.829 and Mixed hyperlipidemia E78.2 [facility] [id number] [place] [address] 49635- 5582 Sep, Periodic limb movement sleep disorder G47.61 [facility] [id number] [place] [address] 83572- 7718 Aug, [facility] [id number] [place] [address] 87084- 9408 Aug, Type 2 diabetes mellitus with diabetic polyneuropathy E11.42 ; 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 and Major depressive disorder , recurrent episode, mild F33.0 [facility] [id number] [place] [address] 09565- 7487 Aug, Impingement syndrome of right shoulder M75.41 [facility] [id number] [place] [address] 96071- 7108 Aug, Shortness of breath R06.02 [facility] [address] 41012- 6336 Aug, [facility] [address] 05835- 5527 Aug, 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 and Type II or unspecified type diabetes mellitus with neurological manifestations, not stated as uncontrolled E11.49 [facility] [address] 31240- 1352 Aug, [facility] [address] 49448- 1147 Jul, Presence of IVC filter Z95.828 [facility] [address] 00372- 2713 Jul, Rotator cuff tear, right M75.101 [facility] [id number] [place] [address] 40182- 8044 Jul, [facility] [id number] [place] [address] 39575- 5234 Jul, [facility] [id number] [place] [address] 14016- 8440 Jul, [facility] [id number] [place] [address] 95011- 0125 Jun, Leukocytosis, unspecified elevated WBC count D72.829 and Mixed hyperlipidemia E78.2 [facility] [id number] [place] [address] 26370- 1737 Jun, Type 2 diabetes mellitus with diabetic polyneuropathy E11.42 ; Hypothyroidism, unspecified hypothyroidism type E03.9 ; Elevated ALT measurement R74.0 ; Mixed hyperlipidemia E78.2 ; Primary insomnia F51.01 ; Seizure-like activity R56.9 ; Presence of IVC filter Z95.828 and Elevated liver enzymes R74.8 [facility] [id number] [place] [address] 36943- 3913 Jun, [facility] [address] 41373- 5022 Jun, Hammertoe M20.40 and 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2 and SLAP lesion of right shoulder 840.[address] 37228- 0639 May, [address] 18959- 1992 Mar, Decreased sex drive 799.81 and Foot pain, bilateral 729.[address] [place] [address]- 7705 Mar, Impingement syndrome of right shoulder 726.2 [facility] [address] [place] [address]- 2582 Mar, [facility] [address] [id number] 10 Mar, 2015 Dental examination V72.2 [facility] [id number] [place] [address] 77859- 1474 11 Feb, 2015 Subacromial bursitis 726.19 [facility] [id number] [place] [address] 67990- 3543 Feb, [facility] [address] [place] [address] 85312- 8821 January, [facility] [id number] [place] [address] 24810- 7110 January, Muscle spasms of lower extremity 728.85 ; Diabetes mellitus , type II 250.00 ; Hypertension 401.9 ; Neuropathy 355.9 ; Hyperlipidemia LDL goal < 100 272.4 ; Hypothyroidism 244.9 ; Insomnia 780.52 ; History of Guillain- La Marque syndrome V12.49 ; Acid reflux disease 530.81 ; Presence of IVC filter V45.89 and Anxiety 300.00 IMMUNIZATIONS No Known Immunizations SOCIAL HISTORY Never Assessed REASON FOR VISIT araceli PLAN OF CARE Activity Details Follow Up prn Reason:1.5 multi TE. pendiing med clearance VITAL SIGNS Blood pressure systolic 115 mmHg 2018-01-23 Blood pressure diastolic 67 mmHg 2018-01-23 MEDICATIONS Medication Instructions Dosage Frequency Start Date End Date Duration Status OneTouch Verio - TEST DAILY 50 Active Pen Morris 32G X 4 MM as directed 24h Apr, Active Potassium Chloride ER 10 MEQ TAKE ONE CAPSULE BY MOUTH TWICE DAILY (MUST HAVE APPOINTMENT FOR REFILL) 30 Active Levothyroxine Sodium 50 MCG TAKE ONE TABLET BY MOUTH ONCE DAILY (MUST HAVE APPOINTMENT FOR REFILL) 30 Active Multivitamin Active Atorvastatin Calcium 40 mg Orally Once a day 1 tablet 24h Oct, 30 day(s) Active Promethazine HCl 25 MG TAKE ONE TABLET BY MOUTH EVERY 6 HOURS NEEDED 15 Active Glucometer 1 kit subcutaneously Once a day OneTouch Verio meter 24h Apr Active Cyclobenzaprine HCl 5 MG Orally every 8 hours as needed 1-2 tablets 30 Not-Taking Amoxicillin 500 MG Orally every 8 hrs 1 capsule 8h 7 days Active Josiah Mag Zinc +D3 Orally daily 1 tab 24h Not-Taking Duloxetine HCl 60 MG TAKE ONE [...] TABLET BY MOUTH ONCE DAILY 90 Active Test strips Test Strips subcutaneously - test once daily OneTouch Verio test strips as directed Apr, Active Wellbutrin SR 100 mg Orally 3 times a day 1 tablet in the morning 8h Active Flonase 50 MCG/ACT Nasally Once a day 2 spray in each nostril 24h Mar, Active Potassium Chloride 10 MEQ Orally Twice a day 1 capsule 12h 30 Active Lidoderm 5 % Externally Once a day 1 patch to intact skin remove after 12 hours 24h Aug, Active Metformin HCl 500 MG TAKE ONE TABLET BY MOUTH TWICE DAILY WITH MEALS (MUST HAVE APPOINTMENT FOR REFILL) 90 Active RESULTS No Results PROCEDURES Procedure Date Ordered Result Body Site LTD ORAL EVALUATION - PROBLEM FOCUS January 23, 2018 INTRAORL-PERIAPICAL 1 FILM [id number] January 23, 2018 INTRAORL-PERIAPICAL EA ADD FILM January 23, 2018 INTRAORL-PERIAPICAL EA ADD FILM January 23, 2018 INSTRUCTIONS MEDICATIONS ADMINISTERED No Known Medications [...]
--- OUTSIDE RECORDS SUMMARY | 2018-10-08 06:03 | XMS REPORT ---
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 Active 243793467973566 Problem Leukocytosis, unspecified type D72.829 Active 877132237 Problem Gastroesophageal reflux disease, esophagitis presence not specified K21.9 Active 575176263 Problem Morbid obesity due to excess calories E66.01 Active 396982963 Problem Type 2 diabetes mellitus with foot ulcer E11.621 Active 314759351476727 Problem Fatty liver K76.0 Active 556260188 Problem Dysthymic disorder F34.1 Active 34094007 Problem Tinnitus of both ears H93.13 Active 7133124866970 Problem Hirsutism L68.0 Active 911962469 Problem Hypothyroidism, unspecified hypothyroidism type E03.9 Active 42924784 Problem Essential hypertension I10 Active 65100618 Problem Non-pressure chronic ulcer of other part of right foot limited to breakdown of skin L97.511 Active 770739991 Problem Non-pressure chronic ulcer of other part of left foot limited to breakdown of skin L97.521 Active 625596614 Problem Sensorineural hearing loss (SNHL) of both ears H90.3 Active 743813662 Problem Constipation by delayed colonic transit K59.01 Active 29691531 Problem Mixed hyperlipidemia E78.2 Active 668874237 Problem Type 2 diabetes mellitus with diabetic polyneuropathy E11.42 Active 197030793 Problem Primary insomnia F51.01 Active 273042087 Problem Anxiety F41.9 Active 67961532 Problem Elevated ALT measurement R74.0 Active 148296432 Problem DM neuro manif type II E11.49 Active 35720017 Problem 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 Active 521436006 Problem Type II or unspecified type diabetes mellitus with neurological manifestations, not stated as uncontrolled E11.49 Active 17780407 ALLERGIES No Known Allergies ENCOUNTERS Encounter Location Date Diagnosis [facility] [id number] [place] [address] 00047- 9406 May, [facility] [id number] [place] [address] 25609- 4930 Apr, [facility] [address] [id number] Apr, [facility] [address] [address]- 1276 Apr, [facility] [address] 06204- 2080 Apr, [facility] [address] 00115- 7726 Mar, Acute pain of right knee M25.561 [facility] [address] 71398- 5037 Mar, [facility] [id number] [place] [address] 60088- 6888 Mar, Acute pain of right knee M25.561 [facility] [id number] [place] [address] 47480- 2681 Mar, Type 2 diabetes mellitus with diabetic polyneuropathy E11.42 [facility] [id number] [place] [address] [id number] Mar, Dental examination Z01.20 [facility] [id number] [place] [address] 79282- 2556 Mar, Dysthymic disorder F34.1 and Anxiety F41.9 [facility] [address] 00290- 3414 Feb, [facility] [address], [place] [address] 9[address] Feb, [facility] [address] [place] [address] 41862- 3178 Feb, Dental examination Z01.20 [facility] [address] [place] [address] 88497- 2977 Feb, [facility] [id number] [place] [address] 00360 -2417 Feb, Rib pain on left side R07.81 [facility] [id number] [place] [address] 59643- 1484 Feb, [facility] [id number] [place] [address] 58615- 1575 Feb, [facility] [id number] [place] [address] 46945- 9369 January, [facility] [id number] [place] [address] [id number] January, Dental examination Z01.20 [facility] [id number] [place] [address] [id number] January, Dental caries K02.9 [facility] [address] [place] [address] 60526- 3988 January, Type 2 diabetes mellitus with foot ulcer E11.621 ; Flexion deformity of finger joint of left hand M21.242 ; Chronic cough R05 ; Tinnitus of both ears H93.13 ; Sensorineural hearing loss (SNHL) of both ears H90.3 and Leukocytosis, unspecified type D72.829 [facility] [address] [place] [address] 85281- 2238 January, [facility] [address] [place] [address] [phone] Dec, Dental examination Z01.20 [facility] [id number] [place] [address] 33322- 7320 26 Dec, 2017 Medicare annual wellness visit, initial Z00.00 ; DM neuro manif type II E11.49 ; Morbid obesity due to excess calories E66.01 ; Essential hypertension I10 ; Anxiety F41.9 ; 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 ; Encounter for immunization Z23 ; Cough R05 and 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 [address]- 3393 16 Dec, 2017 Cough R05 [address] 32366- 2195 15 Nov, [address] 14592- 4059 05 Nov, 2017 Screening for breast cancer Z12.[address] 89473- 2058 12 Oct, [address] 73459- 0130 Oct, [address] 77168- 0246 07 Oct, 2017 Type 2 diabetes mellitus [...] foot limited to breakdown of skin L97.521 [id number] [place] [address] 77491- 2675 Sep, [id number] [place] [address] 80876- 9861 Sep, [place] [address], [place] [address] 4279 Aug, 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 [facility] [id number] [address] 6440 30 Jul, 2017 [facility] [id number] [address] 9116 28 May, 2017 Type 2 diabetes mellitus with diabetic polyneuropathy E11.42 [facility] [address], [place] [address]- 1190 18 May, 2017 [facility] [id number] [place] [address] 94896- 7071 15 May, 2017 [facility] [id number] [address] 9433 Apr, Type 2 diabetes mellitus with diabetic polyneuropathy E11.42 and Morbid obesity due to excess calories E66.01 [facility] [address], [place] [address]- 4693 Apr, [facility] [id number] [place] [address] 67365- 1884 Apr, Type 2 diabetes mellitus with diabetic polyneuropathy E11.42 [facility] [address], [place] [address] Apr, [facility] [address], [place] [address]- 0087 Mar, [facility] [address], [place] [address]- 2008 Mar, [facility] [id number] [address]- 9215 Mar, [facility] [address], [place] [address]- 1641 Mar, Type 2 diabetes mellitus with diabetic polyneuropathy E11.42 [facility] [address], [place] [address]- 9266 Feb, [facility] [address], [place] [address]- 0759 Feb, [facility] [id number] [place] [address] 81587- 6955 Feb, Type 2 diabetes mellitus with diabetic polyneuropathy E11.42 ; Preoperative examination Z01.818 ; Wound, open, foot, left, initial encounter S91.302A ; Weight loss R63.4 and Tobacco abuse Z72.0 [facility] [address], [place] [address]- 7069 Nov, [facility] [id number] [place] [address] 10580- 0908 Nov, Pelvic pain R10.2 [facility] [id number] [place] [address] 78157- 3611 Nov, Morbid obesity due to excess calories E66.01 [facility] [address], [place] [address]- 1650 Nov, [facility] [id number] [place] [address] 97326- 6927 Nov, [facility] [address], [place] [address]- 7427 Nov, [facility] [id number] [address]- 9731 Nov, [facility] [address], [place] [address]- 6517 Oct, [facility] [address] [place] [address] 49752- 8972 Oct, [facility] [address], [place] [address]- 7743 Oct, Well woman exam Z01.419 ; Pelvic pain R10.2 and Type 2 diabetes mellitus with diabetic polyneuropathy E11.42 [place] [address] [place] [address] 30316- 8790 Oct, 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 [place] [id number] [place] [address] 99869- 2957 Sep, Essential hypertension I10 ; Mixed hyperlipidemia E78.2 ; Leukocytosis, unspecified type D72.829 and Morbid obesity due to excess calories E66.01 [place] [id number] [place] [address] 87245- 5186 Sep, [place] [id number] [place] [address] 91600- 3469 Aug, Hypothyroidism, unspecified hypothyroidism type E03.9 [place] [id number] [place] [address] 07358- 9504 Aug, Hirsutism L68.0 ; Primary insomnia F51.01 ; BMI 37.0-37.9, adult Z68.37 and Gastroesophageal reflux disease, esophagitis presence not specified K21.9 [place] [id number] [place] [address] 01926- 0053 Jul, [place] [id number] [place] [address] 96340- 5972 Jun, [place] [id number] [place] [address] 12474- 2557 Jun, [place] [id number] [place] [address] 04300- 7684 Jun, Hypothyroidism, unspecified hypothyroidism type E03.9 [place] [id number] [place] [address] 17433- 6791 Jun, Type 2 diabetes mellitus with diabetic polyneuropathy E11.42 ; Fatty liver K76.0 ; Leukocytosis, unspecified type D72.829 ; Morbid obesity due to excess calories E66.01 ; Hypotension due to drugs I95.2 ; Non- intractable vomiting with nausea, unspecified vomiting type R11.2 and Mixed hyperlipidemia E78.2 [place] [id number] [place] [address] 39516- 5348 Jun, [place] [address] 45405- 9152 Apr, [place] [address] 20144- 1069 Apr, [place] [address] 95319- 0306 Mar, Eustachian tube dysfunction, bilateral H69.83 [place] [address] 39272- 4779 Mar, [place] [address] 47769- 0661 Feb, [place] [address] 26742- 4445 Feb, Type 2 diabetes mellitus with diabetic polyneuropathy E11.42 ; Periodic limb movement sleep disorder G47.61 ; Hirsutism L68.0 ; Leukocytosis, unspecified type D72.829 and Postural dizziness R42 [place] [address] 88536- 1134 Dec, Onychomycosis B35.1 and Foot ulcer L97.509 [place] [id number] [place] [address] 17185- 9328 Nov, [place] [address] 62892- 2978 Nov, Preoperative cardiovascular examination Z01.810 ; Type 2 diabetes mellitus with diabetic polyneuropathy E11.42 and Essential hypertension I10 [place] [address] 81181- 6790 Oct, 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 ; Hammertoe M20.40 and DM neuro manif type II E11.49 [place] [address] 47523- 6410 Oct, Impingement syndrome of right shoulder M75.41 [place] [address] [place] [address] 05815- 3351 Sep, [place] [id number] [place] [address] 77204- 7694 Sep, [place] [address] [place] [address] 81998- 0058 Sep, Leukocytosis, unspecified elevated WBC count D72.829 [place] [address] [place] [address] 44838- 5308 Sep, Leukocytosis, unspecified elevated WBC count D72.829 [place] [id number] [place] [address] 85350- 4077 Sep, [place] [id number] [place] [address] 42329- 6120 Sep, [place] [id number] [place] [address] 04365- 5114 Sep, [place] [id number] [place] [address] 37730- 0713 Sep, Periodic limb movement sleep disorder G47.61 ; Leukocytosis , unspecified elevated WBC count D72.829 and Mixed hyperlipidemia E78.2 [place] [address] [place] [address] 43015- 3686 Sep, Periodic limb movement sleep disorder G47.61 [place] [address] [place] [address] 91993- 1296 Aug, [place] [id number] [place] [address] 44491- 9801 Aug, Type 2 diabetes mellitus with diabetic polyneuropathy E11.42 ; 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 and Major depressive disorder , recurrent episode, mild F33.0 [place] [address] [place] [address] 84644- 1150 Aug, Impingement syndrome of right shoulder M75.41 [place] [address] [place] [address] 24961- 7621 Aug, Shortness of breath R06.02 [place] [address] [place] [address] 96728- 2705 Aug, [place] [address] 87631- 2995 Aug, 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 and Type II or unspecified type diabetes mellitus with neurological manifestations, not stated as uncontrolled E11.49 [place] [address] 19963- 2007 Aug, [place] [address] 99944- 2828 Jul, Presence of IVC filter Z95.[address] 13320- 8550 Jul, Rotator cuff tear, right M75.101 [id number] [place] [address] 68749- 1502 Jul, [place] [address] 34146- 8239 Jul, [place] [address] [place] [address] 48174- 5986 Jul, [place] [address] 28183- 4697 Jun, Leukocytosis, unspecified elevated WBC count D72.829 and Mixed hyperlipidemia E78.[address] 09015- 8341 Jun, Type 2 diabetes mellitus with diabetic polyneuropathy E11.42 ; Hypothyroidism, unspecified hypothyroidism type E03.9 ; Elevated ALT measurement R74.0 ; Mixed hyperlipidemia E78.2 ; Primary insomnia F51.01 ; Seizure-like activity R56.9 ; Presence of IVC filter Z95.828 and Elevated liver enzymes R74.8 [place] [address] [place] [address] 13935- 5119 Jun, [place] [address] 87809- 8176 Jun, Hammertoe M20.40 and 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 [place] [address] 38780- 6493 Jun, Elevated liver enzymes R74.8 [place] [id number] [place] [address] 06140- 2397 Jun, Elevated liver enzymes R74.8 [place] [address] 10842- 7948 May, Elevated liver enzymes R74.8 [place] [address] 08349- 6377 May, Hypertension 401.9 ; Hirsutism 704.1 and Hypokalemia 276.8 [place] [address] 70793- 2737 May, Hypertension 401.9 ; Hirsutism 704.1 and Hypokalemia 276.8 [place] [address] [place] [address] 25642- 7784 May, Impingement syndrome of right shoulder 726.2 and SLAP lesion of right shoulder 840.7 [place] [address] [place] [address] 42451- 6819 May, [place] [address] 56948- 4237 Mar, Decreased sex drive 799.81 and Foot pain, bilateral 729.5 [place] [address] [place] [address] 20440- 5741 Mar, Impingement syndrome of right shoulder 726.2 [facility] [address] [facility] [id number] [address]- 1233 13 Mar, 2015 [facility] [id number] [address] 10 Mar, 2015 Dental examination V72.2 [facility] [id number] [address]- 2249 11 Feb, 2015 Subacromial bursitis 726.19 [place] [address], [place] [address]- 1837 10 Feb, 2015 [place] [address], [place] [address]- 8725 January, [place] [address], [place] [address]- 9311 12 Jan, 2015 Muscle spasms of lower extremity 728.85 ; Diabetes mellitus , type II 250.00 ; Hypertension 401.9 ; Neuropathy 355.9 ; Hyperlipidemia LDL goal < 100 272.4 ; Hypothyroidism 244.9 ; Insomnia 780.52 ; History of Guillain- Lindrith syndrome V12.49 ; Acid reflux disease 530.81 ; Presence of IVC filter V45.89 and Anxiety 300.00 IMMUNIZATIONS Vaccine Route Administration Date Status TDAP (BOOSTRIX) IM Intramuscular January 23, 2018 Administered SOCIAL HISTORY Never Assessed REASON FOR VISIT Medicare AWV - Initial Visit- Rishabh BROTHERS PLAN OF CARE Activity Details Follow Up 1 Year Reason: VITAL SIGNS Height 61 in 2018-01-23 Weight 167.7 lbs 2018-01-23 Temperature 98.6 degrees Fahrenheit 2018-01-23 Heart Rate 90 bpm 2018-01-23 Respiratory Rate 20 2018-01-23 BMI 31.68 kg/m2 2018-01-23 Blood pressure systolic 123 mmHg 2018-01-23 Blood pressure diastolic 75 mmHg 2018-01-23 MEDICATIONS Medication Instructions Dosage Frequency Start Date End Date Duration Status Levothyroxine Sodium 50 MCG TAKE ONE TABLET BY MOUTH ONCE DAILY (MUST HAVE APPOINTMENT FOR REFILL) 30 Active Pen Circle 32G X 4 MM as directed 24h Apr, Active Promethazine HCl 25 MG TAKE ONE TABLET BY MOUTH EVERY 6 HOURS NEEDED 15 Active Wellbutrin SR 100 mg Orally 3 times a day 1 tablet in the morning 8h Active Multivitamin Active OneTouch Verio - TEST DAILY 50 [...] spray in each nostril 24h Mar, Active Omeprazole 40 MG TAKE ONE CAPSULE BY MOUTH ONCE DAILY 90 Active Potassium Chloride ER 10 MEQ TAKE ONE CAPSULE BY MOUTH TWICE DAILY (MUST HAVE APPOINTMENT FOR REFILL) 30 Active Duloxetine HCl 60 MG TAKE ONE CAPSULE BY MOUTH ONCE DAILY (MUST HAVE APPOINTMENT FOR REFILL) 30 Active Potassium Chloride 10 MEQ Orally Twice a day 1 capsule 12h 30 Active Josiah Mag Zinc +D3 Orally daily 1 tab 24h Not-Taking Test strips Test Strips subcutaneously - test once daily OneTouch Verio test strips as directed Apr, Active Atorvastatin Calcium 40 mg Orally Once a day 1 tablet 24h Oct, 30 day(s) Active Metformin HCl 500 MG TAKE ONE TABLET BY MOUTH TWICE DAILY WITH MEALS (MUST HAVE APPOINTMENT FOR REFILL) 90 Active Glucometer 1 kit subcutaneously Once a day OneTouch Verio meter 24h Apr Active Lidoderm 5 % Externally Once a day 1 patch to intact skin remove after 12 hours 24h Aug, Active Cyclobenzaprine HCl 5 MG Orally every 8 hours as needed 1-2 tablets 30 Not-Taking RESULTS Name Result Date Reference Range Xray : Chest 2 View (IN HOUSE) 2018-01-23 PROCEDURES Procedure Date Ordered Result Body Site ANNUAL CONSTANCENES VST; PERSNL PPS INIT January 23, 2018 FALL RISK ASSESSMENT DOCD January 23, 2018 X-RAY EXAM CHEST 2 VIEWS January 23, 2018 CLIN DEPRESSION SCREEN DOC January 23, 2018 PT TOBACCO SCREEN RCVD TLK January 23, 2018 SINGLE IMMUNIZATION ADMIN January 23, 2018 TDAP (BOOSTRIX) January 23, 2018 INSTRUCTIONS MEDICATIONS ADMINISTERED No [...]
--- OUTSIDE RECORDS SUMMARY | 2018-10-08 06:04 | XMS REPORT ---
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 801095629398862 Problem Leukocytosis, unspecified type D72.829 Active 671249582 Problem Gastroesophageal reflux disease, esophagitis presence not specified K21.9 Active 268448684 Problem Morbid obesity due to excess calories E66.01 Active 454601031 Problem Type 2 diabetes mellitus with foot ulcer E11.621 Active 216569753421606 Problem Fatty liver K76.0 Active 897734861 Problem Dysthymic disorder F34.1 Active 55343756 Problem Tinnitus of both ears H93.13 Active 6816624357874 Problem Hirsutism L68.0 Active 329729285 Problem Hypothyroidism, unspecified hypothyroidism type E03.9 Active 71933960 Problem Essential hypertension I10 Active 32675594 Problem Non-pressure chronic ulcer of other part of right foot limited to breakdown of skin L97.511 Active 817275293 Problem Non-pressure chronic ulcer of other part of left foot limited to breakdown of skin L97.521 Active 568255575 Problem Sensorineural hearing loss (SNHL) of both ears H90.3 Active 180899621 Problem Constipation by delayed colonic transit K59.01 Active 29838051 Problem Mixed hyperlipidemia E78.2 Active 890757007 Problem Type 2 diabetes mellitus with diabetic polyneuropathy E11.42 Active 271628926 Problem Primary insomnia F51.01 Active 885491579 Problem Anxiety F41.9 Active 64326543 Problem Elevated ALT measurement R74.0 Active 627168606 Problem DM neuro manif type II E11.49 Active 66887356 Problem 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 Active 854468738 Problem Type II or unspecified type diabetes mellitus with neurological manifestations, not stated as uncontrolled E11.49 Active 42969213 ALLERGIES No Information ENCOUNTERS Encounter Location Date Diagnosis [facility] [id number] [place] [address] 49300- 7257 Apr, [facility] [id number] [place] [address] [phone] Apr, [facility] [address] 6[address]- 5040 Apr, [facility] [address] 42936- 6323 Apr, [facility] [address] 19654- 5164 Mar, Acute pain of right knee M25.561 [facility] [id number] [place] [address] 46303- 0577 Mar, [facility] [address] 01997- 0495 Mar, Acute pain of right knee M25.561 [facility] [id number] [place] [address] 31097- 4643 Mar, Type 2 diabetes mellitus with diabetic polyneuropathy E11.42 [facility] [id number] [place] [address] [id number] Mar, Dental examination Z01.20 [facility] [id number] [place] [address] 51545- 4206 Mar, Dysthymic disorder F34.1 and Anxiety F41.9 [facility] [id number] [place] [address] 64253- 1504 Feb, [facility] [id number] [place] [address] 26016- 0268 Feb, [facility] [address] [address] 0[address] Feb, Dental examination Z01.20 [facility] [address], [place] [address] 26[address] Feb, [facility] [address] [place] [address] Feb, Rib pain on left side R07.81 [facility] [address] [address] 4888 Feb, [facility] [id number] [place] [address] 51912- 4180 Feb, [facility] [id number] [place] [address] 11592- 4605 January, [facility] [id number] [place] [address] [phone] January, Dental examination Z01.20 [facility] [id number] [id number] January, Dental caries K02.9 [facility] [id number] [place] [address] 22257- 4954 January, Type 2 diabetes mellitus with foot ulcer E11.621 ; Flexion deformity of finger joint of left hand M21.242 ; Chronic cough R05 ; Tinnitus of both ears H93.13 ; Sensorineural hearing loss (SNHL) of both ears H90.3 and Leukocytosis, unspecified type D72.829 [facility] [address], [place] [address] 3[address] January, [facility] [id number] [place] [address] [phone] Dec, Dental examination Z01.20 [facility] [address], [place] [address] 6[address] Dec, Medicare annual wellness visit, initial Z00.00 ; DM neuro manif type II E11.49 ; Morbid obesity due to excess calories E66.01 ; Essential hypertension I10 ; Anxiety F41.9 ; 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 ; Encounter for immunization Z23 ; Cough R05 and 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 [facility] [id number] [place] [address] 19733- 7522 16 Dec, 2017 Cough R05 [facility] [address] 22270- 4473 15 Nov, 2017 [facility] [address] 21110- 5776 05 Nov, 2017 Screening for breast cancer Z12.31 [facility] [address] 77311- 9507 12 Oct, 2017 [facility] [address] 75361- 5762 Oct, [facility] [address] 88874- 9497 Oct, Type 2 diabetes mellitus with diabetic [...] foot limited to breakdown of skin L97.521 [facility] [id number] [place] [address] 89512- 1680 Sep, [facility] [id number] [place] [address] 66488- 7705 Sep, [facility] [id number] [place] [address] 18465- 2334 08 Dec, 2017 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 [facility] [address], [place] [address]- 9[address] Jul, [facility] [id number] [place] [address] 02037- 5555 28 May, 2017 Type 2 diabetes mellitus with diabetic polyneuropathy E11.42 [facility] [id number] [place] [address] 72667- 3133 18 May, 2017 [facility] [id number] [place] [address] 55598- 8565 15 May, 2017 [facility] [id number] [place] [address] 62977- 5566 Apr, Type 2 diabetes mellitus with diabetic polyneuropathy E11.42 and Morbid obesity due to excess calories E66.01 [facility] [id number] [place] [address] 78890- 6834 Apr, [facility] [id number] [place] [address] 58781- 3928 Apr, Type 2 diabetes mellitus with diabetic polyneuropathy E11.42 [facility] [id number] [place] [address] 47371 -9386 Apr, [facility] [id number] [place] [address] 46370- 5994 Mar, [facility] [id number] [place] [address] 77336- 3968 Mar, [facility] [address], [place] [address]- 9208 Mar, [facility] [id number] [place] [address] 88919- 5202 Mar, Type 2 diabetes mellitus with diabetic polyneuropathy E11.42 [facility] [address], [place] [address]- 1145 Feb, [facility] [id number] [place] [address] 90745- 0489 Feb, [facility] [address], [place] [address]- 6284 Feb, Type 2 diabetes mellitus with diabetic polyneuropathy E11.42 ; Preoperative examination Z01.818 ; Wound, open, foot, left, initial encounter S91.302A ; Weight loss R63.4 and Tobacco abuse Z72.0 [facility] [id number], [place] [address]- 8088 Nov, [facility] [address], [place] [address] 1961 Nov, Pelvic pain R10.2 [facility] [id number] [place] [address] 01980- 3296 Nov, Morbid obesity due to excess calories E66.01 [facility] [id number] [address]- 2877 Nov, [facility] [address], [place] [address]- 3892 Nov, [facility] [id number], [place] [address]- 3894 Nov, [facility] [address], [place] [address]- 4340 Nov, [facility] [address], [place] [address]- 5323 Oct, [facility] [address], [place] [address]- 2542 Oct, [facility] [address], [place] [address]- 0127 Oct, Well woman exam Z01.419 ; Pelvic pain R10.2 and Type 2 diabetes mellitus with diabetic polyneuropathy E11.42 [facility] [address], [place] [address]- 9118 Oct, 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 [facility] [id number] [place] [address] 43283- 7305 Sep, Essential hypertension I10 ; Mixed hyperlipidemia E78.2 ; Leukocytosis, unspecified type D72.829 and Morbid obesity due to excess calories E66.01 [facility] [id number] [place] [address] 39285- 6418 Sep, [facility] [address] 03727- 4658 Aug, Hypothyroidism, unspecified hypothyroidism type E03.9 [facility] [address] 49413- 3979 Aug, Hirsutism L68.0 ; Primary insomnia F51.01 ; BMI 37.0-37.9, adult Z68.37 and Gastroesophageal reflux disease, esophagitis presence not specified K21.9 [facility] [id number] [place] [address] 80410- 5678 Jul, [facility] [id number] [place] [address] 44463- 8904 Jun, [facility] [address] 42241- 0075 Jun, [facility] [id number] [place] [address] 09035- 3958 Jun, Hypothyroidism, unspecified hypothyroidism type E03.9 [facility] [id number] [place] [address] 08908- 4119 Jun, Type 2 diabetes mellitus with diabetic polyneuropathy E11.42 ; Fatty liver K76.0 ; Leukocytosis, unspecified type D72.829 ; Morbid obesity due to excess calories E66.01 ; Hypotension due to drugs I95.2 ; Non- intractable vomiting with nausea, unspecified vomiting type R11.2 and Mixed hyperlipidemia E78.2 [facility] [id number] [place] [address] 48015- 8065 Jun, [facility] [id number] [place] [address] 13884- 9754 Apr, [facility] [id number] [place] [address] 68993- 3723 Apr, [facility] [id number] [place] [address] 55531- 0502 Mar, Eustachian tube dysfunction, bilateral H69.83 [facility] [address] 39797- 8849 Mar, [facility] [id number] [place] [address] 38750- 0170 Feb, [facility] [id number] [place] [address] 77950- 3347 Feb, Type 2 diabetes mellitus with diabetic polyneuropathy E11.42 ; Periodic limb movement sleep disorder G47.61 ; Hirsutism L68.0 ; Leukocytosis, unspecified type D72.829 and Postural dizziness R42 [facility] [id number] [place] [address] 71165- 8201 Dec, Onychomycosis B35.1 and Foot ulcer L97.509 [facility] [id number] [place] [address] 62717- 6104 Nov, [facility] [id number] [place] [address] 01236- 3689 Nov, Preoperative cardiovascular examination Z01.810 ; Type 2 diabetes mellitus with diabetic polyneuropathy E11.42 and Essential hypertension I10 [facility] [id number] [place] [address] 34550- 1946 Oct, 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 ; Hammertoe M20.40 and DM neuro manif type II E11.49 [facility] [id number] [place] [address] 22955- 9311 Oct, Impingement syndrome of right shoulder M75.41 [facility] [id number] [address]- 3224 Sep, [facility] [address], [place] [address]- 5888 Sep, [facility] [address], [place] [address]- 2433 Sep, Leukocytosis, unspecified elevated WBC count D72.829 [facility] [id number] [place] [address] 03508- 3297 Sep, Leukocytosis, unspecified elevated WBC count D72.829 [facility] [id number] [place] [address] 21081- 9068 Sep, [facility] [id number] [place] [address] 02699- 7812 Sep, [facility] [id number] [place] [address] 23145- 3949 Sep, [facility] [id number] [place] [address] 12134- 6724 Sep, Periodic limb movement sleep disorder G47.61 ; Leukocytosis , unspecified elevated WBC count D72.829 and Mixed hyperlipidemia E78.2 [facility] [address], [place] [address]- 4949 Sep, Periodic limb movement sleep disorder G47.61 [facility] [address], [place] [address]- 9848 Aug, [facility] [address], [place] [address]- 2980 Aug, Type 2 diabetes mellitus with diabetic polyneuropathy E11.42 ; 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 and Major depressive disorder , recurrent episode, mild F33.0 [facility] [address], [place] [address]- 6606 Aug, Impingement syndrome of right shoulder M75.41 [facility] [address] 30657- 3186 17 Aug, 2015 Shortness of breath R06.02 [facility] [address] 95287- 8249 Aug, [facility] [address] 07411- 3185 Aug, 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 and Type II or unspecified type diabetes mellitus with neurological manifestations, not stated as uncontrolled E11.49 [facility] [address] 93390- 1949 Aug, [facility] [address] 25810- 4639 Jul, Presence of IVC filter Z95.828 [facility] [address] 11492- 5216 Jul, Rotator cuff tear, right M75.101 [facility] [address] 70010- 6065 Jul, [facility] [address] 04073- 1626 Jul, [facility] [address] 77196- 9289 Jul, [facility] [address] 30856- 9729 Jun, Leukocytosis, unspecified elevated WBC count D72.829 and Mixed hyperlipidemia E78.2 [facility] [address] 31425- 0281 Jun, Type 2 diabetes mellitus with diabetic polyneuropathy E11.42 ; Hypothyroidism, unspecified hypothyroidism type E03.9 ; Elevated ALT measurement R74.0 ; Mixed hyperlipidemia E78.2 ; Primary insomnia F51.01 ; Seizure-like activity R56.9 ; Presence of IVC filter Z95.828 and Elevated liver enzymes R74.8 [facility] [address] 33993- 5167 Jun, [facility] [id number] [place] [address] 28668- 5177 Jun, Hammertoe M20.40 and 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 [facility] [id number] [place] [address] 03668- 0757 Jun, Elevated liver enzymes R74.8 [facility] [id number] [place] [address] 17895- 0595 Jun, Elevated liver enzymes R74.8 [facility] [id number] [place] [address] 62040- 7997 30 May, 2015 Elevated liver enzymes R74.8 [facility] [id number] [place] [address] 00985- 5172 28 May, 2015 Hypertension 401.9 ; Hirsutism 704.1 and Hypokalemia 276.8 [facility] [id number] [place] [address] 92067- 3496 May, Hypertension 401.9 ; Hirsutism 704.1 and Hypokalemia 276.8 [facility] [id number] [place] [address] 41798- 6011 17 May, 2015 Impingement syndrome of right shoulder 726.2 and SLAP lesion of right shoulder 840.7 [facility] [id number] [place] [address] 12831- 2589 May, [facility] [id number] [place] [address] 58077- 5235 Mar, Decreased sex drive 799.81 and Foot pain, bilateral 729.5 [facility] [id number] [place] [address] 80297- 5884 Mar, Impingement syndrome of right shoulder 726.2 [facility] [id number] [place] [address] 94927- 7642 Mar, [facility] [address] [facility] [id number] [place] [id number] Mar, Dental examination V72.2 [facility] [id number], [place] [address]- 3474 Feb, Subacromial bursitis 726.19 [facility] [id number] [address]- 0999 Feb, [facility] [id number], [place] [address]- 2325 January, [facility] [id number], [place] [address]- 6395 January, Muscle spasms of lower extremity 728.85 ; Diabetes mellitus , type II 250.00 ; Hypertension 401.9 ; Neuropathy 355.9 ; Hyperlipidemia LDL goal < 100 272.4 ; Hypothyroidism 244.9 ; Insomnia 780.52 ; History of Guillain- Rexford syndrome V12.49 ; Acid reflux disease 530.81 ; Presence of IVC filter V45.89 and Anxiety 300.00 IMMUNIZATIONS No Known Immunizations SOCIAL HISTORY Never Assessed REASON FOR VISIT Mammo History Update PLAN OF CARE VITAL SIGNS MEDICATIONS Unknown [...]
--- OUTSIDE RECORDS SUMMARY | 2018-10-08 06:04 | XMS REPORT ---
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 Active 727838437698087 Problem Leukocytosis, unspecified type D72.829 Active 817458962 Problem Gastroesophageal reflux disease, esophagitis presence not specified K21.9 Active 018887600 Problem Morbid obesity due to excess calories E66.01 Active 337189016 Problem Type 2 diabetes mellitus with foot ulcer E11.621 Active 984317667759281 Problem Fatty liver K76.0 Active 265749701 Problem Dysthymic disorder F34.1 Active 22795886 Problem Tinnitus of both ears H93.13 Active 3030054331418 Problem Hirsutism L68.0 Active 671983866 Problem Hypothyroidism, unspecified hypothyroidism type E03.9 Active 19067033 Problem Essential hypertension I10 Active 25361918 Problem Non-pressure chronic ulcer of other part of right foot limited to breakdown of skin L97.511 Active 163157420 Problem Non-pressure chronic ulcer of other part of left foot limited to breakdown of skin L97.521 Active 224636336 Problem Sensorineural hearing loss (SNHL) of both ears H90.3 Active 510038864 Problem Constipation by delayed colonic transit K59.01 Active 27853453 Problem Mixed hyperlipidemia E78.2 Active 343797589 Problem Type 2 diabetes mellitus with diabetic polyneuropathy E11.42 Active 697365360 Problem Primary insomnia F51.01 Active 816957194 Problem Anxiety F41.9 Active 51386570 Problem Elevated ALT measurement R74.0 Active 558559207 Problem DM neuro manif type II E11.49 Active 20459158 Problem 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 Active 750637135 Problem Type II or unspecified type diabetes mellitus with neurological manifestations, not stated as uncontrolled E11.49 Active 60889948 ALLERGIES No Information ENCOUNTERS Encounter Location Date Diagnosis [facility] [address] [place] [address] [phone] Apr, [facility] [address] [address] Apr, [facility] [address] [address]- 4471 Apr, [facility] [address] 89269- 5877 Mar, [facility] [address] 29623- 5586 Mar, Type 2 diabetes mellitus with diabetic polyneuropathy E11.42 [facility] [id number] [place] [address] [phone] Mar, Dental examination Z01.20 [facility] [id number] [place] [address] 27048- 6615 Mar, Dysthymic disorder F34.1 and Anxiety F41.9 [facility] [id number] [place] [address] 46378- 7847 Feb, [facility] [id number] [place] [address] 22424- 5152 Feb, [facility] [id number] [place] [address] 30344- 1241 Feb, Dental examination Z01.20 [facility] [id number] [place] [address] 29993- 4366 Feb, [facility] [address] [place] [address] 89885 -3484 Feb, Rib pain on left side R07.81 [facility] [address] [address] 7[address] Feb, [facility] [id number] [place] [address] 55379- 0558 Feb, [facility] [address] [place] [address] 97534- 0758 January, [facility] [id number] [place] [address] [phone] January, Dental examination Z01.20 [facility] [id number] [place] [address] [phone] January, Dental caries K02.9 [facility] [address] [place] [address] 13527- 7586 January, Type 2 diabetes mellitus with foot ulcer E11.621 ; Flexion deformity of finger joint of left hand M21.242 ; Chronic cough R05 ; Tinnitus of both ears H93.13 ; Sensorineural hearing loss (SNHL) of both ears H90.3 and Leukocytosis, unspecified type D72.829 [facility] [address] [place] [address] 11356- 7844 January, [facility] [address] [place] [address] [phone] Dec, Dental examination Z01.20 [facility] [address] [place] [address] 53341- 2330 Dec, Medicare annual wellness visit, initial Z00.00 ; DM neuro manif type II E11.49 ; Morbid obesity due to excess calories E66.01 ; Essential hypertension I10 ; Anxiety F41.9 ; 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 ; Encounter for immunization Z23 ; Cough R05 and 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 [facility] [address] [place] [address] 27411- 5150 Dec, Cough R05 [facility] [address] [place] [address] 41094- 8674 Nov, [facility] [address] [place] [address] 37452- 7372 Nov, Screening for breast cancer Z12.31 [facility] [address] [place] [address] 40272- 6831 Oct, [facility] [address] [place] [address] 47401- 2664 Oct, [facility] [address] [place] [address] 72274- 5232 Oct, Type 2 diabetes mellitus with diabetic [...] foot limited to breakdown of skin L97.521 [facility] [address] [place] [address] 23354- 8441 Sep, [facility] [address] [place] [address] 04862- 4378 Sep, [facility] [address] [place] [address] 43426- 7223 Aug, 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 [facility] [address] [place] [address] 63085- 4782 Jul, [facility] [address] [place] [address] 46380- 4069 28 May, 2017 Type 2 diabetes mellitus with diabetic polyneuropathy E11.42 [facility] [address] [place] [address] 22334- 5640 May, [facility] [address] [address]- 0876 May, [facility] [address] [place] [address] 03668- 6130 Apr, Type 2 diabetes mellitus with diabetic polyneuropathy E11.42 and Morbid obesity due to excess calories E66.01 [facility] [address] [address]- 0588 Apr, [facility] [address] [place] [address] 71778- 8156 Apr, Type 2 diabetes mellitus with diabetic polyneuropathy E11.42 [facility] [address] [place] [address] 78356 -0100 Apr, [facility] [address] [place] [address] 14549- 8282 Mar, [facility] [address] [place] [address] 36818- 1421 Mar, [facility] [address] [place] [address] 64806- 5024 Mar, [facility] [address] [place] [address] 00465- 1927 Mar, Type 2 diabetes mellitus with diabetic polyneuropathy E11.42 [facility] [address] [address]- 5576 Feb, [facility] [address] [address]- 0189 Feb, [facility] [address] [place] [address] 79242- 7066 Feb, Type 2 diabetes mellitus with diabetic polyneuropathy E11.42 ; Preoperative examination Z01.818 ; Wound, open, foot, left, initial encounter S91.302A ; Weight loss R63.4 and Tobacco abuse Z72.0 [facility] [address] [place] [address] 73614- 3535 Nov, [facility] [address] [address]- 3521 Nov, Pelvic pain R10.2 [facility] [address] [place] [address] 08925- 6626 Nov, Morbid obesity due to excess calories E66.01 [facility] [address] [place] [address] 57457- 7896 Nov, [facility] [address] [place] [address] 08047- 3778 Nov, [facility] [address] [place] [address] 81636- 0075 Nov, [facility] [address] [place] [address] 74684- 7209 Nov, [facility] [address] [place] [address] 49325- 6358 Oct, [facility] [address] [place] [address] 82256- 3082 Oct, [facility] [address] [place] [address] 07440- 8509 Oct, Well woman exam Z01.419 ; Pelvic pain R10.2 and Type 2 diabetes mellitus with diabetic polyneuropathy E11.42 [facility] [address] [place] [address] 78182- 0589 Oct, 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 [facility] [address] [address]- 0082 Sep, Essential hypertension I10 ; Mixed hyperlipidemia E78.2 ; Leukocytosis, unspecified type D72.829 and Morbid obesity due to excess calories E66.01 [facility] [address] [address]- 4895 Sep, [facility] [address] [place] [address] 97456- 5570 Aug, Hypothyroidism, unspecified hypothyroidism type E03.9 [facility] [address] [place] [address] 78790- 3361 Aug, Hirsutism L68.0 ; Primary insomnia F51.01 ; BMI 37.0-37.9, adult Z68.37 and Gastroesophageal reflux disease, esophagitis presence not specified K21.9 [facility] [address] [place] [address] 26597- 0352 Jul, [place] [facility] [address] 74592- 4855 Jun, [facility] [address] [place] [address] 55816- 8690 Jun, [place] [facility] [address] 35744- 4433 Jun, Hypothyroidism, unspecified hypothyroidism type E03.9 [facility] [address] [place] [address] 34715- 4561 Jun, Type 2 diabetes mellitus with diabetic polyneuropathy E11.42 ; Fatty liver K76.0 ; Leukocytosis, unspecified type D72.829 ; Morbid obesity due to excess calories E66.01 ; Hypotension due to drugs I95.2 ; Non- intractable vomiting with nausea, unspecified vomiting type R11.2 and Mixed hyperlipidemia E78.2 [facility] [address] [place] [address] 39252- 5666 Jun, [facility] [address] [place] [address] 04885- 7082 Apr, [facility] [address] [place] [address] 55973- 9210 Apr, [facility] [address] [place] [address] 53277- 2343 Mar, Eustachian tube dysfunction, bilateral H69.83 [facility] [address] [place] [address] 36061- 4730 Mar, [facility] [address] 26670- 8528 Feb, [facility] [address] [place] [address] 38469- 0350 Feb, Type 2 diabetes mellitus with diabetic polyneuropathy E11.42 ; Periodic limb movement sleep disorder G47.61 ; Hirsutism L68.0 ; Leukocytosis, unspecified type D72.829 and Postural dizziness R42 [id number] [place] [address] 64967- 6325 Dec, Onychomycosis B35.1 and Foot ulcer L97.509 [address] [address] [place] [address] 51941- 4097 Nov, [address] 65081- 5097 Nov, Preoperative cardiovascular examination Z01.810 ; Type 2 diabetes mellitus with diabetic polyneuropathy E11.42 and Essential hypertension I10 [id number] [place] [address] 29401- 7191 Oct, 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 ; Hammertoe M20.40 and DM neuro manif type II E11.49 [address] [address] [id number] [place] [address] 22608- 1508 Oct, Impingement syndrome of right shoulder M75.41 [facility] [address] [place] [address] 32842- 4827 Sep, [address] 31884- 7842 Sep, [facility] [address] [place] [address] 82965- 5853 Sep, Leukocytosis, unspecified elevated WBC count D72.829 [place] [address] [place] [address]- 5998 Sep, Leukocytosis, unspecified elevated WBC count D72.829 [facility] [address] [place] [address] 84883- 0244 Sep, [facility] [address] [place] [address] 38944- 8728 Sep, [place] [facility] [address] 89734- 4362 Sep, [facility] [address] [place] [address] 87400- 2440 Sep, Periodic limb movement sleep disorder G47.61 ; Leukocytosis , unspecified elevated WBC count D72.829 and Mixed hyperlipidemia E78.2 [place] [address] [place] [address] 78318- 8513 Sep, Periodic limb movement sleep disorder G47.61 [facility] [address] [place] [address] 37810- 0864 Aug, [facility] [address] [place] [address] 23985- 2659 Aug, Type 2 diabetes mellitus with diabetic polyneuropathy E11.42 ; 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 and Major depressive disorder , recurrent episode, mild F33.0 [facility] [address] [place] [address] 52488- 4986 Aug, Impingement syndrome of right shoulder M75.41 [facility] [address] [place] [address] 24759- 8662 Aug, Shortness of breath R06.02 [facility] [address] [place] [address] 56028- 7630 Aug, [facility] [address] [place] [address] 88591- 8978 Aug, 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 and Type II or unspecified type diabetes mellitus with neurological manifestations, not stated as uncontrolled E11.49 [facility] [address] [place] [address] 58469- 2976 Aug, [facility] [address] [place] [address] 44114- 4431 Jul, Presence of IVC filter Z95.828 [facility] [address] [place] [address] 92792- 1527 Jul, Rotator cuff tear, right M75.101 [facility] [address] [place] [address] 08033- 5381 Jul, [place] [facility] [address] 04531- 6917 Jul, [facility] [address] [place] [address] 94525- 5832 Jul, [facility] [address] [place] [address] 97396- 7631 Jun, Leukocytosis, unspecified elevated WBC count D72.829 and Mixed hyperlipidemia E78.2 [facility] [address] [place] [address] 55224- 6581 Jun, Type 2 diabetes mellitus with diabetic polyneuropathy E11.42 ; Hypothyroidism, unspecified hypothyroidism type E03.9 ; Elevated ALT measurement R74.0 ; Mixed hyperlipidemia E78.2 ; Primary insomnia F51.01 ; Seizure-like activity R56.9 ; Presence of IVC filter Z95.828 and Elevated liver enzymes R74.8 [place] [address] [place] [address] 09542- 4359 Jun, [facility] [address] [place] [address] 03209- 9411 Jun, Hammertoe M20.40 and 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 [facility] [address] [place] [address] 89800- 0278 Jun, Elevated liver enzymes R74.8 [facility] [address] [address]- 0079 02 Jun, 2015 Elevated liver enzymes R74.8 [facility] [address] [place] [address] 35856- 4459 30 May, 2015 Elevated liver enzymes R74.8 [facility] [address] [place] [address] 39071- 6550 28 May, 2015 Hypertension 401.9 ; Hirsutism 704.1 and Hypokalemia 276.8 [facility] [address] [place] [address] 75718- 1281 22 May, 2015 Hypertension 401.9 ; Hirsutism 704.1 and Hypokalemia 276.8 [facility] [address] [place] [address] 39980- 6740 17 May, 2015 Impingement syndrome of right shoulder 726.2 and SLAP lesion of right shoulder 840.7 [place] [place] [address] [place] [address] 67307- 2546 11 May, 2015 [facility] [address] [place] [address] 67392- 8166 31 Mar, [address] 799.81 and Foot pain, bilateral 729.5 [facility] [address] [place] [address] 50572- 3864 23 Mar, 2015 Impingement syndrome of right shoulder 726.2 [facility] [address] [place] [address] 30422- 9671 13 Mar, 2015 [facility] [address] [id number] 10 Mar, 2015 Dental examination V72.2 [facility] [address] [place] [address] 78726- 8302 11 Feb, 2015 Subacromial bursitis 726.19 [facility] [address] [place] [address] 02505- 5060 10 Feb, 2015 [facility] [id number] [place] [address]- 2191 January, [facility] [address] [facility] [id number] [place] [address]- 1820 January, Muscle spasms of lower extremity 728.85 ; Diabetes mellitus , type II 250.00 ; Hypertension 401.9 ; Neuropathy 355.9 ; Hyperlipidemia LDL goal < 100 272.4 ; Hypothyroidism 244.9 ; Insomnia 780.52 ; History of Guillain- Ceylon syndrome V12.49 ; Acid reflux disease 530.81 ; Presence of IVC filter V45.89 and Anxiety 300.00 IMMUNIZATIONS No Known Immunizations SOCIAL HISTORY Never Assessed REASON FOR VISIT Mammo Order request PLAN OF CARE VITAL SIGNS MEDICATIONS Unknown Medications RESULTS Name Result Date Reference Range Mammogram, Bilateral Screening 2017-12-05 PROCEDURES No Known procedures INSTRUCTIONS MEDICATIONS ADMINISTERED [...]
--- OUTSIDE RECORDS SUMMARY | 2018-10-08 06:04 | XMS REPORT ---
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 Active 751139265297145 Problem Leukocytosis, unspecified type D72.829 Active 617368931 Problem Gastroesophageal reflux disease, esophagitis presence not specified K21.9 Active 926623854 Problem Morbid obesity due to excess calories E66.01 Active 161927512 Problem Type 2 diabetes mellitus with foot ulcer E11.621 Active 449030494649067 Problem Fatty liver K76.0 Active 260071872 Problem Dysthymic disorder F34.1 Active 23131491 Problem Tinnitus of both ears H93.13 Active 7097775774004 Problem Hirsutism L68.0 Active 948448168 Problem Hypothyroidism, unspecified hypothyroidism type E03.9 Active 58376542 Problem Essential hypertension I10 Active 13420991 Problem Non-pressure chronic ulcer of other part of right foot limited to breakdown of skin L97.511 Active 033635556 Problem Non-pressure chronic ulcer of other part of left foot limited to breakdown of skin L97.521 Active 252609208 Problem Sensorineural hearing loss (SNHL) of both ears H90.3 Active 535825209 Problem Constipation by delayed colonic transit K59.01 Active 78880365 Problem Mixed hyperlipidemia E78.2 Active 519436861 Problem Type 2 diabetes mellitus with diabetic polyneuropathy E11.42 Active 103317717 Problem Primary insomnia F51.01 Active 685117184 Problem Anxiety F41.9 Active 19102528 Problem Elevated ALT measurement R74.0 Active 061579972 Problem DM neuro manif type II E11.49 Active 51300708 Problem 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 Active 208527207 Problem Type II or unspecified type diabetes mellitus with neurological manifestations, not stated as uncontrolled E11.49 Active 93513347 ALLERGIES No Information ENCOUNTERS Encounter Location Date Diagnosis [facility] [address] [address] May, [facility] [address] [address] Apr, [facility] [address] [id number] Apr, [facility] [address] [address]- 39[address] Apr, [facility] [address] [address]- [address] Apr, [facility] [address] [address]- [address] Mar, Acute pain of right knee M25.561 [facility] [address] [address] Mar, [facility] [address] [address]- [address] Mar, Acute pain of right knee M25.561 [facility] [address] [address]- [address] Mar, Type 2 diabetes mellitus with diabetic polyneuropathy E11.42 [facility] [address] [id number] Mar, Dental examination Z01.20 [facility] [address] [address] Mar, Dysthymic disorder F34.1 and Anxiety F41.9 [facility] [address] [address] Feb, [facility] [address] [address] Feb, [facility] [id number] [address] 00378- 4058 Feb, Dental examination Z01.20 [facility] [id number] [address] 48387- 8521 Feb, [facility] [id number] [address] 21288 -1093 Feb, Rib pain on left side R07.81 [facility] [id number] [address] 31646- 9413 Feb, [facility] [id number] [address] 14607- 8311 Feb, [facility] [id number] [address] 80478- 0486 January, [facility] [id number] [address] [id number] January, Dental examination Z01.20 [facility] [id number] [address] [id number] January, Dental caries K02.9 [facility] [id number] [address]- 1986 January, Type 2 diabetes mellitus with foot ulcer E11.621 ; Flexion deformity of finger joint of left hand M21.242 ; Chronic cough R05 ; Tinnitus of both ears H93.13 ; Sensorineural hearing loss (SNHL) of both ears H90.3 and Leukocytosis, unspecified type D72.829 [facility] [id number] [place] [address] 74951- 4540 January, [facility] [id number] [address] [id number] Dec, Dental examination Z01.20 [facility] [place] [id number] [address]105- 83[address] 26 Dec, 2017 Medicare annual wellness visit, initial Z00.00 ; DM neuro manif type II E11.49 ; Morbid obesity due to excess calories E66.01 ; Essential hypertension I10 ; Anxiety F41.9 ; 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 ; Encounter for immunization Z23 ; Cough R05 and 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 [place] [address] [address]- [address] 16 Dec, [address] [address]- 8560 Nov, [address] [address]- 9[address] 05 Nov, 2017 Screening for breast cancer Z12.[address] [address]- 2821 12 Oct, [address] [address]- 0909 Oct, [address] [address]- 2089 07 Oct, 2017 Type 2 diabetes mellitus [...] foot limited to breakdown of skin L97.521 [place] [id number] [address]22- 3473 Sep, [address] 0[address]- 8663 Sep, [place] [address], [place] [address] Aug, 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 [facility] [id number] [address] 74972- 9319 Jul, [facility] [id number], [place] [address] 28 May, 2017 Type 2 diabetes mellitus with diabetic polyneuropathy E11.42 [facility] [address], [place] [address] 0[address] 18 May, 2017 [facility] [id number] [address] 05387- 7605 15 May, 2017 [facility] [id number] [address] 67901- 5660 Apr, Type 2 diabetes mellitus with diabetic polyneuropathy E11.42 and Morbid obesity due to excess calories E66.01 [facility] [address], [place] [address] Apr, [facility] [id number] [address] 98956- 1603 Apr, Type 2 diabetes mellitus with diabetic polyneuropathy E11.42 [facility] [address], [place] [address] Apr, [facility] [address], [place] [address] 3[address] Mar, [facility] [address], [place] [address] 3460 Mar, [facility] [id number] [address] 0767 Mar, [facility] [address], [place] [address] 0088 Mar, Type 2 diabetes mellitus with diabetic polyneuropathy E11.42 [facility] [address], [place] [address] 3461 Feb, [facility] [address], [place] [address]- 4[address] Feb, [facility] [address] [address] 41897- 9926 Feb, Type 2 diabetes mellitus with diabetic polyneuropathy E11.42 ; Preoperative examination Z01.818 ; Wound, open, foot, left, initial encounter S91.302A ; Weight loss R63.4 and Tobacco abuse Z72.0 [facility] [address], [place] [address]- 5157 Nov, [facility] [id number] [address] 05411- 3423 Nov, Pelvic pain R10.2 [facility] [id number] [address] 03477- 6480 Nov, Morbid obesity due to excess calories E66.01 [facility] [address], [place] [address]- 9767 Nov, [facility] [id number] [address] 19007- 6917 Nov, [facility] [address], [place] [address]- 9435 Nov, [facility] [address], [place] [address]- 7900 Nov, [facility] [address], [place] [address]- 2547 Oct, [facility] [address], [place] [address]- 12[address] Oct, [facility] [address], [place] [address]- 2186 Oct, Well woman exam Z01.419 ; Pelvic pain R10.2 and Type 2 diabetes mellitus with diabetic polyneuropathy E11.42 [place] [address] [address] 20845- 8728 Oct, 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 [place] [id number] [address] 85568- 6350 Sep, Essential hypertension I10 ; Mixed hyperlipidemia E78.2 ; Leukocytosis, unspecified type D72.829 and Morbid obesity due to excess calories E66.01 [place] [id number] [address] 78388- 2185 Sep, [place] [id number] [address] 13729- 2807 Aug, Hypothyroidism, unspecified hypothyroidism type E03.9 [place] [id number] [address] 08386- 0956 Aug, Hirsutism L68.0 ; Primary insomnia F51.01 ; BMI 37.0-37.9, adult Z68.37 and Gastroesophageal reflux disease, esophagitis presence not specified K21.9 [place] [id number] [place] [address] 41546- 6603 Jul, [place] [address] [id number] [address] 42495- 5814 Jun, [place] [id number] [address] 41922- 6787 Jun, [place] [id number] [address] 68434- 1451 Jun, Hypothyroidism, unspecified hypothyroidism type E03.9 [place] [address] [place] [address] 31407- 9152 Jun, Type 2 diabetes mellitus with diabetic polyneuropathy E11.42 ; Fatty liver K76.0 ; Leukocytosis, unspecified type D72.829 ; Morbid obesity due to excess calories E66.01 ; Hypotension due to drugs I95.2 ; Non- intractable vomiting with nausea, unspecified vomiting type R11.2 and Mixed hyperlipidemia E78.2 [place] [address] [place] [id number] [address] 35384- 5030 Jun, [place] [address] 74660- 5184 Apr, [place] [address] 15200- 4738 Apr, [place] [address] 07100- 8280 Mar, Eustachian tube dysfunction, bilateral H69.83 [place] [address] [address]- 3922 Mar, [place] [address] [address]- 2014 Feb, [place] [address] [address]- 0166 Feb, Type 2 diabetes mellitus with diabetic polyneuropathy E11.42 ; Periodic limb movement sleep disorder G47.61 ; Hirsutism L68.0 ; Leukocytosis, unspecified type D72.829 and Postural dizziness R42 [place] [address] [place] [address] [id number] [place] [address] 51121- 4480 Dec, Onychomycosis B35.1 and Foot ulcer L97.509 [place] [address] 72042- 5229 Nov, [place] [address] 90082- 0484 Nov, Preoperative cardiovascular examination Z01.810 ; Type 2 diabetes mellitus with diabetic polyneuropathy E11.42 and Essential hypertension I10 [place] [address] 40425- 3987 Oct, 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 ; Hammertoe M20.40 and DM neuro manif type II E11.49 [place] [address] 06740- 9141 Oct, Impingement syndrome of right shoulder M75.41 [place] [address] [place] [address] 23802- 6567 Sep, [place] [address] [place] [address] [id number] [address] 93502- 2286 Sep, [place] [address] [id number] [address] 64629- 0092 Sep, Leukocytosis, unspecified elevated WBC count D72.829 [place] [address] [place] [address] [id number] [address] 87636- 5124 Sep, Leukocytosis, unspecified elevated WBC count D72.829 [place] [address] [place] [address] [id number] [address] 81408- 4816 Sep, [place] [address] [place] [address] [id number] [address] 42462- 4075 Sep, [place] [address] [place] [address] [id number] [address] 13722- 6691 Sep, [place] [address] [place] [address] [id number] [address] 50396- 1814 Sep, Periodic limb movement sleep disorder G47.61 ; Leukocytosis , unspecified elevated WBC count D72.829 and Mixed hyperlipidemia E78.2 [place] [address] [address] 60526- 0300 Sep, Periodic limb movement sleep disorder G47.61 [place] [address] [address] 02940- 0024 Aug, [place] [address] [place] [id number] [address] 76092- 2393 Aug, Type 2 diabetes mellitus with diabetic polyneuropathy E11.42 ; 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 and Major depressive disorder , recurrent episode, mild F33.0 [place] [id number] [address] 88060- 1239 Aug, Impingement syndrome of right shoulder M75.41 [place] [address] [place] [address] [id number] [address] 58286- 5897 Aug, Shortness of breath R06.02 [place] [address] [place] [address] [id number] [address] 15399- 2686 Aug, [place] [address] 98637- 8781 Aug, 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 and Type II or unspecified type diabetes mellitus with neurological manifestations, not stated as uncontrolled E11.49 [place] [address] 54440- 0260 Aug, [place] [address] 38547- 0092 Jul, Presence of IVC filter Z95.[address] 91522- 2261 Jul, Rotator cuff tear, right M75.101 [place] [address] 07928- 4748 Jul, [place] [address] 56918- 4767 Jul, [place] [address] [place] [id number] [address] 75435- 2399 Jul, [place] [address] 86425- 2097 Jun, Leukocytosis, unspecified elevated WBC count D72.829 and Mixed hyperlipidemia E78.[address] 62984- 0976 Jun, Type 2 diabetes mellitus with diabetic polyneuropathy E11.42 ; Hypothyroidism, unspecified hypothyroidism type E03.9 ; Elevated ALT measurement R74.0 ; Mixed hyperlipidemia E78.2 ; Primary insomnia F51.01 ; Seizure-like activity R56.9 ; Presence of IVC filter Z95.828 and Elevated liver enzymes R74.8 [place] [address] [place] [id number] [address] 86048- 2085 Jun, [place] [address] [place] [id number] [address] 95479- 1751 Jun, Hammertoe M20.40 and 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 [place] [address] 42475- 4589 Jun, Elevated liver enzymes R74.8 [place] [address] [place] [id number] [address] 24532- 5942 Jun, Elevated liver enzymes R74.8 [place] [address] [place] [id number] [address] 47834- 5787 May, Elevated liver enzymes R74.8 [place] [address] [place] [id number] [address] 89616- 9194 May, Hypertension 401.9 ; Hirsutism 704.1 and Hypokalemia 276.8 [place] [address] [place] [id number] [address] 56411- 1553 May, Hypertension 401.9 ; Hirsutism 704.1 and Hypokalemia 276.8 [place] [address] [place] [id number] [address] 42398- 1975 May, Impingement syndrome of right shoulder 726.2 and SLAP lesion of right shoulder 840.7 [place] [address] [place] [id number] [address] 52606- 4208 May, [place] [address] 22634- 3868 Mar, Decreased sex drive 799.81 and Foot pain, bilateral 729.5 [place] [address] [place] [id number] [address] 46926- 1942 Mar, Impingement syndrome of right shoulder 726.2 [place] [address] [facility] [id number] [address] 13 Mar, 2015 [facility] [address] [facility] [id number] [id number] Mar, Dental examination V72.2 [facility] [id number], [place] [address]- 3430 11 Feb, 2015 Subacromial bursitis 726.19 [facility] [address], [place] [address]- 3651 Feb, [facility] [id number], [place] [address]- 9026 January, [facility] [address], [place] [address]- 7025 January, Muscle spasms of lower extremity 728.85 ; Diabetes mellitus , type II 250.00 ; Hypertension 401.9 ; Neuropathy 355.9 ; Hyperlipidemia LDL goal < 100 272.4 ; Hypothyroidism 244.9 ; Insomnia 780.52 ; History of Guillain- Omak syndrome V12.49 ; Acid reflux disease 530.81 ; Presence of IVC filter V45.89 and Anxiety 300.00 IMMUNIZATIONS No Known Immunizations SOCIAL HISTORY Never Assessed REASON FOR VISIT Cough PLAN OF CARE VITAL SIGNS MEDICATIONS Medication Instructions Dosage Frequency Start Date End Date Duration Status Flonase 50 MCG/ACT Nasally Once a day 2 spray in each nostril 24h Mar, Active RESULTS No Results PROCEDURES No Known [...]
--- OUTSIDE RECORDS SUMMARY | 2018-10-08 06:05 | XMS REPORT ---
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 Active 571811339365987 Problem Leukocytosis, unspecified type D72.829 Active 945183700 Problem Gastroesophageal reflux disease, esophagitis presence not specified K21.9 Active 670420218 Problem Morbid obesity due to excess calories E66.01 Active 396008884 Problem Type 2 diabetes mellitus with foot ulcer E11.621 Active 629849041256050 Problem Fatty liver K76.0 Active 596709307 Problem Dysthymic disorder F34.1 Active 17373708 Problem Tinnitus of both ears H93.13 Active 8130484837615 Problem Hirsutism L68.0 Active 447203633 Problem Hypothyroidism, unspecified hypothyroidism type E03.9 Active 21646771 Problem Essential hypertension I10 Active 33598106 Problem Non-pressure chronic ulcer of other part of right foot limited to breakdown of skin L97.511 Active 495993054 Problem Non-pressure chronic ulcer of other part of left foot limited to breakdown of skin L97.521 Active 863437687 Problem Sensorineural hearing loss (SNHL) of both ears H90.3 Active 850286896 Problem Constipation by delayed colonic transit K59.01 Active 11203889 Problem Mixed hyperlipidemia E78.2 Active 293467027 Problem Type 2 diabetes mellitus with diabetic polyneuropathy E11.42 Active 288595955 Problem Primary insomnia F51.01 Active 991088962 Problem Anxiety F41.9 Active 46719629 Problem Elevated ALT measurement R74.0 Active 074732254 Problem DM neuro manif type II E11.49 Active 34294529 Problem 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 Active 309681911 Problem Type II or unspecified type diabetes mellitus with neurological manifestations, not stated as uncontrolled E11.49 Active 40934236 ALLERGIES No Information ENCOUNTERS Encounter Location Date Diagnosis [facility] [id number] [place] [id number] Apr, [facility] [address] [address]- [address] Apr, [facility] [address] 7[address]86- 3161 Apr, [facility] [address] 34633- 4055 Mar, [facility] [address] 80332- 9858 Mar, Type 2 diabetes mellitus with diabetic polyneuropathy E11.42 [facility] [id number] [place] [address] [phone] Mar, Dental examination Z01.20 [facility] [id number] [place] [address] 38864- 6282 Mar, Dysthymic disorder F34.1 and Anxiety F41.9 [facility] [id number] [place] [address] 88539- 2688 Feb, [facility] [id number] [place] [address] 60175- 1615 Feb, [facility] [id number] [place] [address] 94953- 3517 Feb, Dental examination Z01.20 [facility] [id number] [place] [address] 82411- 0214 Feb, [facility] [address] [place] [address] 32620 -1511 Feb, Rib pain on left side R07.81 [facility] [address] [address] 8[address] Feb, [facility] [id number] [place] [address] 70296- 5868 Feb, [facility] [id number] [place] [address] 13091- 2804 January, [facility] [id number] [place] [address] [phone] January, Dental examination Z01.20 [facility] [id number] [place] [address] [phone] January, Dental caries K02.9 [facility] [id number] [place] [address] 28143- 7637 January, Type 2 diabetes mellitus with foot ulcer E11.621 ; Flexion deformity of finger joint of left hand M21.242 ; Chronic cough R05 ; Tinnitus of both ears H93.13 ; Sensorineural hearing loss (SNHL) of both ears H90.3 and Leukocytosis, unspecified type D72.829 [facility] [id number] [place] [address] 62309- 0878 January, [facility] [address] [place] [address] [phone] Dec, Dental examination Z01.20 [facility] [id number] [place] [address] 11585- 9948 Dec, Medicare annual wellness visit, initial Z00.00 ; DM neuro manif type II E11.49 ; Morbid obesity due to excess calories E66.01 ; Essential hypertension I10 ; Anxiety F41.9 ; 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 ; Encounter for immunization Z23 ; Cough R05 and 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 [facility] [address] [place] [address] 42166- 4772 Dec, Cough R05 [facility] [id number] [place] [address] 41339- 7136 Nov, [facility] [id number] [place] [address] 06551- 9549 Nov, Screening for breast cancer Z12.31 [facility] [id number] [place] [address] 47434- 0019 Oct, [facility] [id number] [place] [address] 50271- 2981 Oct, [facility] [id number] [place] [address] 50270- 0837 Oct, Type 2 diabetes mellitus with diabetic [...] foot limited to breakdown of skin L97.521 [facility] [id number] [place] [address] 40388- 5087 Sep, [facility] [id number] [place] [address] 78429- 8837 Sep, [facility] [id number] [place] [address] 40125- 8524 Aug, 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 [facility] [id number] [place] [address] 17205- 7978 Jul, [facility] [id number] [place] [address] 02153- 7099 28 May, 2017 Type 2 diabetes mellitus with diabetic polyneuropathy E11.42 [facility] [id number] [place] [address] 52027- 5616 May, [facility] [address] [address] 8451 May, [facility] [id number] [place] [address] 85830- 8980 Apr, Type 2 diabetes mellitus with diabetic polyneuropathy E11.42 and Morbid obesity due to excess calories E66.01 [facility] [id number] [address]- 3503 Apr, [facility] [id number] [place] [address] 51344- 7084 Apr, Type 2 diabetes mellitus with diabetic polyneuropathy E11.42 [facility] [address] [place] [address] 86538 -6845 Apr, [facility] [id number] [place] [address] 77574- 1878 Mar, [facility] [id number] [place] [address] 93601- 6660 Mar, [facility] [address] [place] [address] 30243- 9232 Mar, [facility] [id number] [place] [address] 29474- 3684 Mar, Type 2 diabetes mellitus with diabetic polyneuropathy E11.42 [facility] [address] [address]- 7415 Feb, [facility] [address] [address]- 5153 Feb, [facility] [address] [place] [address] 12002- 9102 Feb, Type 2 diabetes mellitus with diabetic polyneuropathy E11.42 ; Preoperative examination Z01.818 ; Wound, open, foot, left, initial encounter S91.302A ; Weight loss R63.4 and Tobacco abuse Z72.0 [facility] [id number] [place] [address] 25534- 6096 Nov, [facility] [address] [address]- 7257 Nov, Pelvic pain R10.2 [facility] [id number] [place] [address] 00670- 9739 Nov, Morbid obesity due to excess calories E66.01 [facility] [id number] [place] [address] 82292- 7683 Nov, [facility] [id number] [place] [address] 31077- 3854 Nov, [facility] [id number] [place] [address] 74259- 8576 Nov, [facility] [id number] [place] [address] 62813- 6996 Nov, [facility] [id number] [place] [address] 54387- 1100 Oct, [facility] [id number] [place] [address] 55450- 6393 Oct, [facility] [id number] [place] [address] 98750- 2884 Oct, Well woman exam Z01.419 ; Pelvic pain R10.2 and Type 2 diabetes mellitus with diabetic polyneuropathy E11.42 [facility] [address] [place] [address] 91805- 4684 Oct, 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 [facility] [address] [address]- 5288 Sep, Essential hypertension I10 ; Mixed hyperlipidemia E78.2 ; Leukocytosis, unspecified type D72.829 and Morbid obesity due to excess calories E66.01 [facility] [address] [address]- 1867 Sep, [facility] [id number] [place] [address] 57755- 7268 Aug, Hypothyroidism, unspecified hypothyroidism type E03.9 [facility] [id number] [place] [address] 84277- 8248 Aug, Hirsutism L68.0 ; Primary insomnia F51.01 ; BMI 37.0-37.9, adult Z68.37 and Gastroesophageal reflux disease, esophagitis presence not specified K21.9 [facility] [id number] [place] [address] 98094- 5094 Jul, [facility] [address] 50367- 1616 Jun, [facility] [id number] [place] [address] 59337- 5091 Jun, [facility] [address] 99130- 4173 Jun, Hypothyroidism, unspecified hypothyroidism type E03.9 [facility] [id number] [place] [address] 60296- 1186 Jun, Type 2 diabetes mellitus with diabetic polyneuropathy E11.42 ; Fatty liver K76.0 ; Leukocytosis, unspecified type D72.829 ; Morbid obesity due to excess calories E66.01 ; Hypotension due to drugs I95.2 ; Non- intractable vomiting with nausea, unspecified vomiting type R11.2 and Mixed hyperlipidemia E78.2 [facility] [id number] [place] [address] 63431- 0979 Jun, [facility] [id number] [place] [address] 19739- 7563 Apr, [facility] [id number] [place] [address] 75794- 9429 Apr, [facility] [id number] [place] [address] 08257- 5062 Mar, Eustachian tube dysfunction, bilateral H69.83 [facility] [id number] [place] [address] 26168- 9015 Mar, [facility] [address] 57112- 2755 Feb, [facility] [id number] [place] [address] 72901- 5349 Feb, Type 2 diabetes mellitus with diabetic polyneuropathy E11.42 ; Periodic limb movement sleep disorder G47.61 ; Hirsutism L68.0 ; Leukocytosis, unspecified type D72.829 and Postural dizziness R42 [id number] [place] [address] 50040- 4706 Dec, Onychomycosis B35.1 and Foot ulcer L97.509 [id number] [place] [address] 20798- 5120 Nov, [address] 49048- 3819 Nov, Preoperative cardiovascular examination Z01.810 ; Type 2 diabetes mellitus with diabetic polyneuropathy E11.42 and Essential hypertension I10 [id number] [place] [address] 02963- 7131 Oct, 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 ; Hammertoe M20.40 and DM neuro manif type II E11.49 [id number] [place] [address] 15398- 2161 Oct, Impingement syndrome of right shoulder M75.41 [facility] [id number] [place] [address] 73186- 4518 Sep, [address] 25687- 2472 Sep, [facility] [id number] [place] [address] 76765- 2123 Sep, Leukocytosis, unspecified elevated WBC count D72.829 [place] [address] [place] [address]- 3196 Sep, Leukocytosis, unspecified elevated WBC count D72.829 [facility] [id number] [place] [address] 91003- 1780 Sep, [facility] [id number] [place] [address] 91038- 1345 Sep, [facility] [facility] [address] 24018- 1121 Sep, [facility] [id number] [place] [address] 60793- 6214 Sep, Periodic limb movement sleep disorder G47.61 ; Leukocytosis , unspecified elevated WBC count D72.829 and Mixed hyperlipidemia E78.2 [facility] [id number] [place] [address] 24256- 5101 Sep, Periodic limb movement sleep disorder G47.61 [facility] [id number] [place] [address] 32055- 3061 Aug, [facility] [id number] [place] [address] 24119- 6190 Aug, Type 2 diabetes mellitus with diabetic polyneuropathy E11.42 ; 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 and Major depressive disorder , recurrent episode, mild F33.0 [place] [id number] [place] [address] 49892- 1964 Aug, Impingement syndrome of right shoulder M75.41 [facility] [id number] [place] [address] 71081- 5263 Aug, Shortness of breath R06.02 [facility] [id number] [place] [address] 80919- 1685 Aug, [facility] [id number] [place] [address] 95000- 7476 Aug, 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 and Type II or unspecified type diabetes mellitus with neurological manifestations, not stated as uncontrolled E11.49 [facility] [id number] [place] [address] 30311- 2107 Aug, [facility] [id number] [place] [address] 71203- 4515 Jul, Presence of IVC filter Z95.828 [facility] [id number] [place] [address] 65826- 7076 Jul, Rotator cuff tear, right M75.101 [facility] [id number] [place] [address] 69057- 6118 Jul, [facility] [facility] [address] 81893- 4666 Jul, [facility] [id number] [place] [address] 58013- 7965 Jul, [facility] [id number] [place] [address] 89335- 6977 Jun, Leukocytosis, unspecified elevated WBC count D72.829 and Mixed hyperlipidemia E78.2 [facility] [place] [id number] [place] [address] 91320- 6302 Jun, Type 2 diabetes mellitus with diabetic polyneuropathy E11.42 ; Hypothyroidism, unspecified hypothyroidism type E03.9 ; Elevated ALT measurement R74.0 ; Mixed hyperlipidemia E78.2 ; Primary insomnia F51.01 ; Seizure-like activity R56.9 ; Presence of IVC filter Z95.828 and Elevated liver enzymes R74.8 [facility] [place] [address] [place] [address] 82412- 1790 Jun, [facility] [id number] [place] [address] 14819- 0632 Jun, Hammertoe M20.40 and 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 [facility] [id number] [place] [address] 43119- 5512 Jun, Elevated liver enzymes R74.8 [facility] [place] [address] [address]- 7762 02 Jun, 2015 Elevated liver enzymes R74.8 [facility] [id number] [place] [address] 80402- 5325 30 May, 2015 Elevated liver enzymes R74.8 [facility] [address] [place] [address] 01090- 9336 28 May, 2015 Hypertension 401.9 ; Hirsutism 704.1 and Hypokalemia 276.8 [facility] [id number] [place] [address] 18857- 5135 22 May, 2015 Hypertension 401.9 ; Hirsutism 704.1 and Hypokalemia 276.8 [facility] [address] [place] [address] 92938- 2348 17 May, 2015 Impingement syndrome of right shoulder 726.2 and SLAP lesion of right shoulder 840.7 [facility] [place] [id number] [place] [address] 43912- 4598 11 May, 2015 [facility] [id number] [place] [address] 89693- 7017 31 Mar, [address] 799.81 and Foot pain, bilateral 729.5 [facility] [address] [place] [address] 20409- 9766 23 Mar, 2015 Impingement syndrome of right shoulder 726.2 [facility] [address] [place] [address] 70787- 8294 13 Mar, 2015 [facility] [address] [id number] 10 Mar, 2015 Dental examination V72.2 [facility] [address] [place] [address] 01690- 7626 11 Feb, 2015 Subacromial bursitis 726.19 [facility] [address] [place] [address] 36119- 2902 10 Feb, 2015 [facility] [id number] [address]- 3036 January, [facility] [address] [facility] [id number] [place] [address]- 4495 January, Muscle spasms of lower extremity 728.85 ; Diabetes mellitus , type II 250.00 ; Hypertension 401.9 ; Neuropathy 355.9 ; Hyperlipidemia LDL goal < 100 272.4 ; Hypothyroidism 244.9 ; Insomnia 780.52 ; History of Guillain- Pratt syndrome V12.49 ; Acid reflux disease 530.81 ; Presence of IVC filter V45.89 and Anxiety 300.00 IMMUNIZATIONS No Known Immunizations SOCIAL HISTORY Never Assessed REASON FOR VISIT Lab results PLAN OF CARE VITAL SIGNS MEDICATIONS Unknown [...]
--- OUTSIDE RECORDS SUMMARY | 2018-10-08 06:06 | XMS REPORT ---
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 Active 404878876173296 Problem Leukocytosis, unspecified type D72.829 Active 750857119 Problem Gastroesophageal reflux disease, esophagitis presence not specified K21.9 Active 324169523 Problem Morbid obesity due to excess calories E66.01 Active 692602469 Problem Non-pressure chronic ulcer of other part of left foot limited to breakdown of skin L97.521 Active 983672185 Problem Fatty liver K76.0 Active 060100569 Problem Tinnitus of both ears H93.13 Active 3036457771920 Problem Sensorineural hearing loss (SNHL) of both ears H90.3 Active 092673841 Problem Hirsutism L68.0 Active 385157706 Problem Hypothyroidism, unspecified hypothyroidism type E03.9 Active 12245481 Problem Essential hypertension I10 Active 72606646 Problem Type 2 diabetes mellitus with foot ulcer E11.621 Active 818572721787275 Problem Non-pressure chronic ulcer of other part of right foot limited to breakdown of skin L97.511 Active 697824266 Problem 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 Active 84442970 Problem Constipation by delayed colonic transit K59.01 Active 31401914 Problem Anxiety F41.9 Active 09948193 Problem Type 2 diabetes mellitus with diabetic polyneuropathy E11.42 Active 797002975 Problem Primary insomnia F51.01 Active 068407333 Problem Mixed hyperlipidemia E78.2 Active 988829419 Problem Elevated ALT measurement R74.0 Active 479342529 Problem DM neuro manif type II E11.49 Active 97104461 Problem 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 [id number] [place] [address] [id number] January, Dental examination Z01.[address] [facility] [id number] [place] [address] [id number] January, Dental caries K02.9 [place] [address] [address]- [address] January, Type 2 diabetes mellitus with foot ulcer E11.621 ; Flexion deformity of finger joint of left hand M21.242 ; Chronic cough R05 ; Tinnitus of both ears H93.13 ; Sensorineural hearing loss (SNHL) of both ears H90.3 and Leukocytosis, unspecified type D72.829 [place] [address] [place] [address] 87512- 2622 January, 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 [place] [id number] [address] 16 Dec, 2017 Cough R05 [place] [id number] [place] [address] 85126- 9305 Nov, [place] [id number] [place] [address] 58988- 3176 Nov, Screening for breast cancer Z12.31 [place] [id number] [place] [address] 16262- 3575 Oct, [place] [id number] [place] [address] 20510- 5341 Oct, [place] [id number] [place] [address] 54521- 8089 Oct, Type 2 diabetes mellitus with diabetic [...] to breakdown of skin L97.521 [place] [address] [address] 265[address] Sep, [place] [address] [place] [address] 68493- 7691 Sep, [place] [address] [place] [address] 98849- 8357 Aug, 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 [place] [address] [place] [address] 09410- 0471 Jul, [place] [address] [address] May, Type 2 diabetes mellitus with diabetic polyneuropathy E11.42 [facility] [address] [address] 37[address] May, [facility] [address], [place] [address] 50[address] May, [facility] [address], [place] [address] 4971 Apr, Type 2 diabetes mellitus with diabetic polyneuropathy E11.42 and Morbid obesity due to excess calories E66.01 [facility] [address] [address] 6[address] Apr, [facility] [address] [place] [address] 5537 Apr, Type 2 diabetes mellitus with diabetic polyneuropathy E11.42 [facility] [address] [address] Apr, [facility] [address], [place] [address] 2292 Mar, [facility] [address], [place] [address] 7762 Mar, [facility] [address], [place] [address] 5338 Mar, [facility] [id number] [address] 1237 Mar, Type 2 diabetes mellitus with diabetic polyneuropathy E11.42 [facility] [id number] [address] 2418 Feb, [facility] [address], [place] [address] 8[address] Feb, [facility] [address], [place] [address] 8618 Feb, Type 2 diabetes mellitus with diabetic polyneuropathy E11.42 ; Preoperative examination Z01.818 ; Wound, open, foot, left, initial encounter S91.302A ; Weight loss R63.4 and Tobacco abuse Z72.0 [facility] [id number] [place] [address] 23906- 1437 Nov, [facility] [id number] [place] [address] 92136- 0720 Nov, Pelvic pain R10.2 [facility] [id number] [place] [address] 99548- 5284 Nov, Morbid obesity due to excess calories E66.01 [facility] [id number] [place] [address] 56577- 7849 Nov, [facility] [id number] [place] [address] 26800- 5134 Nov, [facility] [id number] [place] [address] 32939- 4428 Nov, [facility] [id number] [place] [address] 38673- 7241 Nov, [facility] [address] [place] [address] 50487- 2320 Oct, [facility] [id number] [place] [address] 15531- 2664 Oct, [facility] [id number] [place] [address] 17577- 7714 Oct, Well woman exam Z01.419 ; Pelvic pain R10.2 and Type 2 diabetes mellitus with diabetic polyneuropathy E11.42 [facility] [address], [place] [address] 3071 Oct, 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 [facility] [address] [place] [address] 23320- 5825 Sep, Essential hypertension I10 ; Mixed hyperlipidemia E78.2 ; Leukocytosis, unspecified type D72.829 and Morbid obesity due to excess calories E66.01 [facility] [address] [place] [address] 40697- 5991 Sep, [facility] [id number] [place] [address] 98650- 6432 Aug, Hypothyroidism, unspecified hypothyroidism type E03.9 [facility] [id number] [place] [address] 21591- 7872 Aug, Hirsutism L68.0 ; Primary insomnia F51.01 ; BMI 37.0-37.9, adult Z68.37 and Gastroesophageal reflux disease, esophagitis presence not specified K21.9 [place] [id number] [place] [address] 25235- 6047 Jul, [place] [id number] [place] [address] 94744- 3375 Jun, [place] [id number] [place] [address] 02054- 6738 Jun, [facility] [id number] [place] [address] 97614- 6398 Jun, Hypothyroidism, unspecified hypothyroidism type E03.9 [place] [id number] [place] [address] 58928- 8591 Jun, Type 2 diabetes mellitus with diabetic polyneuropathy E11.42 ; Fatty liver K76.0 ; Leukocytosis, unspecified type D72.829 ; Morbid obesity due to excess calories E66.01 ; Hypotension due to drugs I95.2 ; Non- intractable vomiting with nausea, unspecified vomiting type R11.2 and Mixed hyperlipidemia E78.2 [place] [id number] [place] [address] 53189- 6514 Jun, [place] [id number] [place] [address] 34886- 5428 Apr, [facility] [id number] [place] [address] 36533- 0572 Apr, [facility] [id number] [place] [address] 39485- 4380 Mar, Eustachian tube dysfunction, bilateral H69.[address] 60683- 3838 Mar, [address] 15487- 0754 Feb, [address] 70483- 2023 Feb, Type 2 diabetes mellitus with diabetic polyneuropathy E11.42 ; Periodic limb movement sleep disorder G47.61 ; Hirsutism L68.0 ; Leukocytosis, unspecified type D72.829 and Postural dizziness R42 [address] 42185- 3296 Dec, Onychomycosis B35.1 and Foot ulcer L97.[address] 33396- 0922 Nov, [address] 74591- 5545 Nov, Preoperative cardiovascular examination Z01.810 ; Type 2 diabetes mellitus with diabetic polyneuropathy E11.42 and Essential hypertension I10 [id number] [place] [address] 75329- 5979 Oct, 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 ; Hammertoe M20.40 and DM neuro manif type II E11.49 [place] [id number] [place] [address] 26112- 4507 Oct, Impingement syndrome of right shoulder M75.[address] 45809- 1148 Sep, [address] 65583- 6180 Sep, [address] 36770- 3874 Sep, Leukocytosis, unspecified elevated WBC count D72.829 [place] [id number] [place] [address] 49509- 2859 Sep, Leukocytosis, unspecified elevated WBC count D72.829 [place] [id number] [place] [address] 05193- 0091 Sep, [place] [address] 09971- 5594 Sep, [place] [address] 03037- 8928 Sep, [place] [address] 06722- 9811 Sep, Periodic limb movement sleep disorder G47.61 ; Leukocytosis , unspecified elevated WBC count D72.829 and Mixed hyperlipidemia E78.2 [place] [address] 77630- 3436 Sep, Periodic limb movement sleep disorder G47.61 [place] [address] 69090- 0004 Aug, [place] [address] 23933- 1237 Aug, Type 2 diabetes mellitus with diabetic polyneuropathy E11.42 ; 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 and Major depressive disorder , recurrent episode, mild F33.0 [place] [id number] [place] [address] 08279- 9483 Aug, Impingement syndrome of right shoulder M75.41 [place] [address] 71940- 5049 Aug, Shortness of breath R06.02 [place] [id number] [place] [address] 99055- 8671 Aug, [place] [address] 61298- 4373 Aug, 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 and Type II or unspecified type diabetes mellitus with neurological manifestations, not stated as uncontrolled E11.49 [place] [address] [id number]- 7668 Aug, [place] [address] 40778- 1822 Jul, Presence of IVC filter Z95.828 [place] [address] 20809- 8718 Jul, Rotator cuff tear, right M75.101 [place] [address] 152712- 4673 Jul, [place] [address] 90466- 5809 Jul, [place] [address] 52527- 2470 Jul, [place] [id number] [place] [address] 68135- 5695 Jun, Leukocytosis, unspecified elevated WBC count D72.829 and Mixed hyperlipidemia E78.2 [place] [id number] [place] [address] 01079- 8846 Jun, Type 2 diabetes mellitus with diabetic polyneuropathy E11.42 ; Hypothyroidism, unspecified hypothyroidism type E03.9 ; Elevated ALT measurement R74.0 ; Mixed hyperlipidemia E78.2 ; Primary insomnia F51.01 ; Seizure-like activity R56.9 ; Presence of IVC filter Z95.828 and Elevated liver enzymes R74.8 [place] [address] 99741- 2223 Jun, [place] [address] 74957- 3124 Jun, Hammertoe M20.40 and 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 [place] [address] [place] [address]- 7291 Jun, Elevated liver enzymes R74.8 [facility] [id number] [place] [address] 52099- 6341 02 Jun, 2015 Elevated liver enzymes R74.8 [facility] [id number] [place] [address] 37891- 2051 30 May, 2015 Elevated liver enzymes R74.8 [facility] [id number] [place] [address] 15311- 3798 28 May, 2015 Hypertension 401.9 ; Hirsutism 704.1 and Hypokalemia 276.8 [facility] [address] 53918- 6589 22 May, 2015 Hypertension 401.9 ; Hirsutism 704.1 and Hypokalemia 276.8 [facility] [id number] [place] [address] 49326- 2102 17 May, 2015 Impingement syndrome of right shoulder 726.2 and SLAP lesion of right shoulder 840.7 [facility] [id number] [place] [address] 19594- 1332 May, [facility] [id number] [place] [address] 38986- 9980 Mar, Decreased sex drive 799.81 and Foot pain, bilateral 729.5 [facility] [id number] [place] [address] 73388- 5104 Mar, Impingement syndrome of right shoulder 726.2 [facility] [address] [place] [address] 94123- 5711 13 Mar, [address] [facility] [id number] [place] [address] [phone] Mar, 2015 Dental examination V72.2 [facility] [id number] [place] [address] 12300- 7624 11 Feb, 2015 Subacromial bursitis 726.19 [facility] [address] [facility] [id number] [address]- 1179 Feb, [facility] [address] [facility] [id number] [address]- 4709 January, [facility] [address] [facility] [id number] [address]- 5086 January, Muscle spasms of lower extremity 728.85 ; Diabetes mellitus , type II 250.00 ; Hypertension 401.9 ; Neuropathy 355.9 ; Hyperlipidemia LDL goal < 100 272.4 ; Hypothyroidism 244.9 ; Insomnia 780.52 ; History of Guillain- Skidmore syndrome V12.49 ; Acid reflux disease 530.81 ; Presence of IVC filter V45.89 and Anxiety 300.00 IMMUNIZATIONS No Known Immunizations SOCIAL HISTORY Never Assessed REASON FOR VISIT Dental appt PLAN OF CARE VITAL SIGNS MEDICATIONS [...] hand 02/06/2017 Surgical History hernia repair 07/2017 Hospitalization History GBS
--- OUTSIDE RECORDS SUMMARY | 2018-10-08 06:06 | XMS REPORT ---
Author Author ASPENGEO SHULTZ Organization [facility] Address [address] [place] [address] Care Team Providers Care Carder Blankets Name Role Phone GEO LOUISE Unavailable PROBLEMS Type Condition ICD9-CM Code TYR32-FV Code Onset Dates Condition Status SNOMED Code Problem DM neuro manif type II E11.49 Active 46349835 Problem Leukocytosis, unspecified type D72.829 Active 131122375 Problem Periodic limb movement sleep disorder G47.61 Active 358330184 Problem Type 2 diabetes mellitus with foot ulcer E11.621 Active 182481220571786 Problem Gastroesophageal reflux disease, esophagitis presence not specified K21.9 Active 354809338 Problem Non-pressure chronic ulcer of other part of right foot limited to breakdown of skin L97.511 Active 558051949 Problem 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 Active 898525951151391 Problem Presence of IVC filter Z95.828 Active 831645986 Problem Fatty liver K76.0 Active 980901789 Problem Morbid obesity due to excess calories E66.01 Active 076676010 Problem Non-pressure chronic ulcer of other part of left foot limited to breakdown of skin L97.521 Active 946120670 Problem Constipation by delayed colonic transit K59.01 Active 33852618 Problem Hirsutism L68.0 Active 195979332 Problem Primary insomnia F51.01 Active 444348911 Problem Hypothyroidism, unspecified hypothyroidism type E03.9 Active 81748634 Problem Essential hypertension I10 Active 39895229 Problem Type 2 diabetes mellitus with diabetic polyneuropathy E11.42 Active 288368864 Problem 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 Active 962132355 Problem Chronic prescription benzodiazepine use Z79.899 Active 983973507 Problem Mixed hyperlipidemia E78.2 Active 663208420 Problem Type II or unspecified type diabetes mellitus with neurological manifestations, not stated as uncontrolled E11.49 Active 90439146 Problem Delayed gastric emptying K30 Active 421920163 Problem Anxiety F41.9 Active 80391332 Problem Elevated ALT measurement R74.0 Active 849194955 ALLERGIES No Information ENCOUNTERS Encounter Location Date Diagnosis [facility] [id number] [place] [address] 46346- 9170 January, [facility] [id number] [place] [address] 85418- 5202 Dec, Medicare annual wellness visit, initial Z00.00 [facility] [id number] [place] [address] 88502- 3842 15 Nov, 2017 [facility] [id number] [place] [address] 97132- 3470 05 Nov, 2017 Screening for breast cancer Z12.31 [facility] [id number] [place] [address] 40037- 7495 12 Oct, 2017 [facility] [id number] [place] [address] 81981- 1127 12 Oct, 2017 [facility] [id number] [place] [address] 92725- 7420 07 Oct, 2017 Type 2 diabetes mellitus [...] foot limited to breakdown of skin L97.521 [facility] [id number] [place] [address] 01705- 6934 Sep, [facility] [id number] [place] [address] 60511- 1003 Sep, [facility] [id number] [place] [address] 81276- 5850 Aug, 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 [facility] [address] [address] 87[address] Jul, [facility] [id number] [place] [address] 79531- 1024 28 May, 2017 Type 2 diabetes mellitus with diabetic polyneuropathy E11.42 [facility] [address] [address] 5908 18 May, 2017 [facility] [id number] [place] [address] 12477- 9676 15 May, 2017 [facility] [id number] [place] [address] 13141- 0079 Apr, Type 2 diabetes mellitus with diabetic polyneuropathy E11.42 and Morbid obesity due to excess calories E66.01 [facility] [address] [address] 7922 Apr, [facility] [address] [place] [address] 95950- 5047 Apr, Type 2 diabetes mellitus with diabetic polyneuropathy E11.42 [facility] [address] [place] [address] 43579 -8462 Apr, [facility] [address] [place] [address] 63791- 8704 Mar, [facility] [address] [place] [address] 15573- 4417 Mar, [facility] [address] [address] 9307 Mar, [facility] [address] [place] [address] 82843- 7110 Mar, Type 2 diabetes mellitus with diabetic polyneuropathy E11.42 [facility] [address] [address]- 1769 Feb, [facility] [id number] [place] [address] 26210- 2486 Feb, [facility] [address] [address]- 8063 Feb, Type 2 diabetes mellitus with diabetic polyneuropathy E11.42 ; Preoperative examination Z01.818 ; Wound, open, foot, left, initial encounter S91.302A ; Weight loss R63.4 and Tobacco abuse Z72.0 [facility] [id number] [place] [address] 84185- 7929 Nov, [facility] [address] [place] [address] 37005- 2378 Nov, Pelvic pain R10.2 [facility] [id number] [place] [address] 78773- 2763 Nov, Morbid obesity due to excess calories E66.01 [facility] [address] [address]- 2779 Nov, [facility] [id number] [address] 7891 Nov, [facility] [id number] [place] [address] 21000- 3069 Nov, [facility] [address] [address]- 8032 Nov, [facility] [address] [address]- 7551 Oct, [facility] [address] [address]- 5443 Oct, [facility] [address] [address]- 4191 Oct, Well woman exam Z01.419 ; Pelvic pain R10.2 and Type 2 diabetes mellitus with diabetic polyneuropathy E11.42 [facility] [address] [address]- 9111 Oct, 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 [facility] [address] [place] [address] 10227- 9787 Sep, Essential hypertension I10 ; Mixed hyperlipidemia E78.2 ; Leukocytosis, unspecified type D72.829 and Morbid obesity due to excess calories E66.01 [facility] [id number] [place] [address] 27012- 7525 Sep, [facility] [address] 52770- 1008 Aug, Hypothyroidism, unspecified hypothyroidism type E03.9 [facility] [id number] [place] [address] 22866- 8291 Aug, Hirsutism L68.0 ; Primary insomnia F51.01 ; BMI 37.0-37.9, adult Z68.37 and Gastroesophageal reflux disease, esophagitis presence not specified K21.9 [facility] [id number] [place] [address] 50631- 1650 Jul, [facility] [id number] [place] [address] 66424- 8972 Jun, [facility] [id number] [place] [address] 52204- 1365 Jun, [facility] [id number] [place] [address] 30555- 9095 Jun, Hypothyroidism, unspecified hypothyroidism type E03.9 [facility] [id number] [place] [address] 55724- 2030 Jun, Type 2 diabetes mellitus with diabetic polyneuropathy E11.42 ; Fatty liver K76.0 ; Leukocytosis, unspecified type D72.829 ; Morbid obesity due to excess calories E66.01 ; Hypotension due to drugs I95.2 ; Non- intractable vomiting with nausea, unspecified vomiting type R11.2 and Mixed hyperlipidemia E78.2 [facility] [id number] [place] [address] 46741- 3311 Jun, [facility] [address] [address]- 9899 Apr, [facility] [id number] [place] [address] 72401- 6892 Apr, [facility] [id number] [place] [address] 88751- 8703 Mar, Eustachian tube dysfunction, bilateral H69.83 [facility] [id number] [place] [address] 49859- 2288 Mar, [facility] [id number] [place] [address] 28720- 8931 Feb, [facility] [id number] [place] [address] 95843- 3897 Feb, Type 2 diabetes mellitus with diabetic polyneuropathy E11.42 ; Periodic limb movement sleep disorder G47.61 ; Hirsutism L68.0 ; Leukocytosis, unspecified type D72.829 and Postural dizziness R42 [facility] [id number] [place] [address] 01264- 0737 Dec, Onychomycosis B35.1 and Foot ulcer L97.509 [facility] [id number] [place] [address] 56587- 3924 Nov, [facility] [id number] [place] [address] 15222- 5973 Nov, Preoperative cardiovascular examination Z01.810 ; Type 2 diabetes mellitus with diabetic polyneuropathy E11.42 and Essential hypertension I10 [facility] [id number] [place] [address] 83048- 6458 Oct, 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 ; Hammertoe M20.40 and DM neuro manif type II E11.49 [facility] [id number] [place] [address] 94539- 3731 Oct, Impingement syndrome of right shoulder M75.41 [facility] [address] [place] [address]- 6551 Sep, [facility] [id number] [place] [address] 23840- 2839 Sep, [facility] [id number] [place] [address] 57786- 4069 Sep, Leukocytosis, unspecified elevated WBC count D72.829 [facility] [id number] [place] [address] 12314- 4006 Sep, Leukocytosis, unspecified elevated WBC count D72.829 [facility] [id number] [place] [address] 95175- 5361 Sep, [facility] [id number] [place] [address] 31339- 9795 Sep, [facility] [id number] [place] [address] 93769- 2741 Sep, [facility] [id number] [place] [address] 34273- 1656 Sep, Periodic limb movement sleep disorder G47.61 ; Leukocytosis , unspecified elevated WBC count D72.829 and Mixed hyperlipidemia E78.2 [facility] [id number] [place] [address] 08420- 7890 Sep, Periodic limb movement sleep disorder G47.61 [facility] [id number] [place] [address] 70576- 0804 Aug, [facility] [id number] [place] [address] 71066- 6416 Aug, Type 2 diabetes mellitus with diabetic polyneuropathy E11.42 ; 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 and Major depressive disorder , recurrent episode, mild F33.0 [facility] [address] [address]- 4635 Aug, Impingement syndrome of right shoulder M75.41 [facility] [id number] [place] [address] 51965- 3297 Aug, Shortness of breath R06.02 [facility] [address] 87309- 6216 Aug, [facility] [address] 21835- 5248 Aug, 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 and Type II or unspecified type diabetes mellitus with neurological manifestations, not stated as uncontrolled E11.49 [facility] [address] 52210- 4966 Aug, [facility] [address] 92151- 8400 Jul, Presence of IVC filter Z95.828 [facility] [address] 71339- 7868 Jul, Rotator cuff tear, right M75.101 [facility] [address] 02065- 8229 Jul, [facility] [address] 49158- 8514 Jul, [facility] [id number] [place] [address] 99162- 9218 Jul, [facility] [id number] [place] [address] 57776- 5521 Jun, Leukocytosis, unspecified elevated WBC count D72.829 and Mixed hyperlipidemia E78.2 [facility] [id number] [place] [address] 57844- 5084 Jun, Type 2 diabetes mellitus with diabetic polyneuropathy E11.42 ; Hypothyroidism, unspecified hypothyroidism type E03.9 ; Elevated ALT measurement R74.0 ; Mixed hyperlipidemia E78.2 ; Primary insomnia F51.01 ; Seizure-like activity R56.9 ; Presence of IVC filter Z95.828 and Elevated liver enzymes R74.8 [facility] [id number] [place] [address] 23653- 0390 Jun, [facility] [address] [place] [address] 17257- 2880 Jun, Hammertoe M20.40 and 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 [facility] [id number] [place] [address] 20311- 4547 Jun, Elevated liver enzymes R74.8 [facility] [id number] [place] [address] 30041- 4864 Jun, Elevated liver enzymes R74.8 [facility] [id number] [place] [address] 94274- 3171 30 May, 2015 Elevated liver enzymes R74.8 [facility] [id number] [place] [address] 24810- 2754 28 May, 2015 Hypertension 401.9 ; Hirsutism 704.1 and Hypokalemia 276.8 [facility] [id number] [place] [address] 91357- 3524 22 May, 2015 Hypertension 401.9 ; Hirsutism 704.1 and Hypokalemia 276.8 [facility] [id number] [place] [address] 67004- 3722 17 May, 2015 Impingement syndrome of right shoulder 726.2 and SLAP lesion of right shoulder 840.7 [facility] [id number] [place] [address] 06947- 3441 May, [facility] [id number] [place] [address] 64049- 8682 Mar, Decreased sex drive 799.81 and Foot pain, bilateral 729.5 [facility] [id number] [place] [address] 85179- 1515 Mar, Impingement syndrome of right shoulder 726.2 [facility] [id number] [place] [address] 73728- 8390 13 Mar, [address] [place] [address] [id number] [address] 10 Mar, 2015 Dental examination V72.2 [facility] [address] [address]- 3847 11 Feb, 2015 Subacromial bursitis 726.19 [facility] [id number] [address]- 7752 10 Feb, 2015 [facility] [address] [address]- 0213 January, [facility] [id number] [address]- 6790 January, Muscle spasms of lower extremity 728.85 ; Diabetes mellitus , type II 250.00 ; Hypertension 401.9 ; Neuropathy 355.9 ; Hyperlipidemia LDL goal < 100 272.4 ; Hypothyroidism 244.9 ; Insomnia 780.52 ; History of Guillain- Minot syndrome V12.49 ; Acid reflux disease 530.81 ; Presence of IVC filter V45.89 and Anxiety 300.00 IMMUNIZATIONS No Known Immunizations SOCIAL HISTORY Never Assessed REASON FOR VISIT Needle PLAN OF CARE VITAL SIGNS MEDICATIONS Medication Instructions Dosage Frequency Start Date End Date Duration Status Pen [place] 32G X 4 MM as directed 24h Apr, Active RESULTS No Results PROCEDURES No Known [...]
--- OUTSIDE RECORDS SUMMARY | 2018-10-08 06:06 | XMS REPORT ---
Author Author ASPENGEO SHULTZ Organization [facility] [place] Address [address] [place] [address] Care Team Providers Care Us Marketing Director Name Role Phone GEO LOUISE Unavailable PROBLEMS Type Condition ICD9-CM Code MSM12-PN Code Onset Dates Condition Status SNOMED Code Problem DM neuro manif type II E11.49 Active 79292686 Problem Leukocytosis, unspecified type D72.829 Active 021098334 Problem Periodic limb movement sleep disorder G47.61 Active 780623891 Problem Type 2 diabetes mellitus with foot ulcer E11.621 Active 052569680038821 Problem Gastroesophageal reflux disease, esophagitis presence not specified K21.9 Active 742573027 Problem Non-pressure chronic ulcer of other part of right foot limited to breakdown of skin L97.511 Active 823635569 Problem 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 866577255640087 Problem Presence of IVC filter Z95.828 Active 302965649 Problem Fatty liver K76.0 Active 077650084 Problem Morbid obesity due to excess calories E66.01 Active 834345246 Problem Non-pressure chronic ulcer of other part of left foot limited to breakdown of skin L97.521 Active 153433219 Problem Constipation by delayed colonic transit K59.01 Active 12502284 Problem Hirsutism L68.0 Active 184450372 Problem Primary insomnia F51.01 Active 701508753 Problem Hypothyroidism, unspecified hypothyroidism type E03.9 Active 02455593 Problem Essential hypertension I10 Active 76890307 Problem Type 2 diabetes mellitus with diabetic polyneuropathy E11.42 Active 387512412 Problem 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 Active 840267656 Problem Chronic prescription benzodiazepine use Z79.899 Active 670332344 Problem Mixed hyperlipidemia E78.2 Active 033299111 Problem Type II or unspecified type diabetes mellitus with neurological manifestations, not stated as uncontrolled E11.49 Active 20719465 Problem Delayed gastric emptying K30 Active 306064583 Problem Anxiety F41.9 Active 53537210 Problem Elevated ALT measurement R74.0 Active 862259945 ALLERGIES No Known Allergies ENCOUNTERS Encounter Location Date Diagnosis [facility] [id number] [place] [address] 28573- 8099 January, [facility] [id number] [place] [address] 16659- 9134 Dec, Medicare annual wellness visit, initial Z00.00 [facility] [facility] [address] [address]- [address] Dec, Cough R05 [facility] [facility] [id number] [place] [address] 54017- 2086 Nov, [facility] [id number] [place] [address] 65197- 7738 05 Nov, 2017 Screening for breast cancer Z12.31 [facility] [address] [address]37- 9483 12 Oct, 2017 [place] [id number] [place] [address] 19771- 3810 12 Oct, 2017 [place] [id number] [place] [address] 92221- 3755 07 Oct, 2017 Type 2 diabetes mellitus [...] foot limited to breakdown of skin L97.521 [facility] [id number] [place] [address] 87050- 5774 Sep, [facility] [place] [id number] [place] [address] 72317- 7084 Sep, [place] [id number] [address] Aug, 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 [facility] [place] [id number] [address] 30 Jul, 2017 [facility] [place] [id number] [address] 28 May, 2017 Type 2 diabetes mellitus with diabetic polyneuropathy E11.42 [facility] [place] [address] [address] 18 May, 2017 [facility] [place] [id number] [place] [address] 46450- 6718 15 May, 2017 [facility] [place] [id number] [address] Apr, Type 2 diabetes mellitus with diabetic polyneuropathy E11.42 and Morbid obesity due to excess calories E66.01 [facility] [place] [address] [address] Apr, [facility] [place] [id number] [place] [address] 34103- 2924 Apr, Type 2 diabetes mellitus with diabetic polyneuropathy E11.42 [facility] [address] [address] Apr, [facility] [place] [address] [address] 8674 Mar, [facility] [place] [address] [address] 0677 Mar, [facility] [place] [id number] [address] 9336 Mar, [facility] [place] [address], [place] [address] Mar, Type 2 diabetes mellitus with diabetic polyneuropathy E11.42 [facility] [place] [address] [address] 75[address] Feb, [facility] [place] [address] [address] Feb, [facility] [place] [id number] [place] [address] 10292- 0117 Feb, Type 2 diabetes mellitus with diabetic polyneuropathy E11.42 ; Preoperative examination Z01.818 ; Wound, open, foot, left, initial encounter S91.302A ; Weight loss R63.4 and Tobacco abuse Z72.0 [facility] [place] [address] [address] Nov, [facility] [place] [id number] [place] [address] 08361- 9598 Nov, Pelvic pain R10.2 [facility] [place] [id number] [place] [address] 90227- 4551 Nov, Morbid obesity due to excess calories E66.01 [facility] [place] [address], [place] [address] 7248 Nov, [facility] [place] [id number] [place] [address] 83624- 6723 Nov, [facility] [place] [address] [address]- 2361 Nov, [facility] [place] [id number] [address]- 2947 Nov, [facility] [place] [address], [place] [address]- 0242 Oct, [facility] [place] [address] [place] [address] 40838- 6913 Oct, [facility] [place] [address], [place] [address]- [address] Oct, Well woman exam Z01.419 ; Pelvic pain R10.2 and Type 2 diabetes mellitus with diabetic polyneuropathy E11.42 [facility] [address] [place] [address] 90534- 7939 Oct, 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 [facility] [id number] [place] [address] 89771- 6021 Sep, Essential hypertension I10 ; Mixed hyperlipidemia E78.2 ; Leukocytosis, unspecified type D72.829 and Morbid obesity due to excess calories E66.01 [facility] [id number] [place] [address] 75416- 5177 Sep, [facility] [id number] [place] [address] 24791- 5064 Aug, Hypothyroidism, unspecified hypothyroidism type E03.9 [facility] [id number] [place] [address] 52860- 8330 Aug, Hirsutism L68.0 ; Primary insomnia F51.01 ; BMI 37.0-37.9, adult Z68.37 and Gastroesophageal reflux disease, esophagitis presence not specified K21.9 [facility] [id number] [place] [address] 84521- 7755 Jul, [facility] [id number] [place] [address] 91632- 7296 Jun, [facility] [id number] [place] [address] 87647- 9910 Jun, [facility] [facility] [id number] [place] [address] 14438- 8941 Jun, Hypothyroidism, unspecified hypothyroidism type E03.9 [facility] [place] [id number] [place] [address] 50208- 5601 Jun, Type 2 diabetes mellitus with diabetic polyneuropathy E11.42 ; Fatty liver K76.0 ; Leukocytosis, unspecified type D72.829 ; Morbid obesity due to excess calories E66.01 ; Hypotension due to drugs I95.2 ; Non- intractable vomiting with nausea, unspecified vomiting type R11.2 and Mixed hyperlipidemia E78.2 [facility] [id number] [place] [address] 48493- 7950 Jun, [facility] [facility] [address] 63999- 0482 Apr, [facility] [facility] [address] 21828- 5170 Apr, [facility] [facility] [address] 44766- 4578 Mar, Eustachian tube dysfunction, bilateral H69.83 [facility] [facility] [address] 39275- 9329 Mar, [facility] [facility] [address] 82982- 3976 Feb, [facility] [facility] [address] 83706- 9916 Feb, Type 2 diabetes mellitus with diabetic polyneuropathy E11.42 ; Periodic limb movement sleep disorder G47.61 ; Hirsutism L68.0 ; Leukocytosis, unspecified type D72.829 and Postural dizziness R42 [place] [address] 17937- 3770 Dec, Onychomycosis B35.1 and Foot ulcer L97.509 [facility] [id number] [place] [address] 57778- 9754 Nov, [facility] [facility] [address] 29078- 9666 Nov, Preoperative cardiovascular examination Z01.810 ; Type 2 diabetes mellitus with diabetic polyneuropathy E11.42 and Essential hypertension I10 [facility] [address] 18759- 7003 Oct, 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 ; Hammertoe M20.40 and DM neuro manif type II E11.49 [facility] [facility] [address] 52706- 6192 Oct, Impingement syndrome of right shoulder M75.41 [facility] [address] [place] [address] 64960- 4500 Sep, [facility] [id number] [place] [address] 50387- 9216 Sep, [facility] [id number] [place] [address] 51148- 2666 Sep, Leukocytosis, unspecified elevated WBC count D72.829 [facility] [id number] [place] [address] 19883- 0847 Sep, Leukocytosis, unspecified elevated WBC count D72.829 [facility] [id number] [place] [address] 01872- 7513 Sep, [facility] [id number] [place] [address] 39912- 1743 Sep, [facility] [id number] [place] [address] 89754- 7202 Sep, [facility] [id number] [place] [address] 14481- 7714 Sep, Periodic limb movement sleep disorder G47.61 ; Leukocytosis , unspecified elevated WBC count D72.829 and Mixed hyperlipidemia E78.2 [facility] [id number] [place] [address] 30835- 9837 Sep, Periodic limb movement sleep disorder G47.61 [facility] [address] [place] [address] 44740- 9116 Aug, [facility] [place] [id number] [place] [address] 25571- 0425 Aug, Type 2 diabetes mellitus with diabetic polyneuropathy E11.42 ; 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 and Major depressive disorder , recurrent episode, mild F33.0 [facility] [id number] [place] [address] 48094- 3195 Aug, Impingement syndrome of right shoulder M75.41 [facility] [id number] [place] [address] 52234- 5575 Aug, Shortness of breath R06.02 [facility] [id number] [place] [address] 55756- 6098 Aug, [facility] [address] 21497- 8125 Aug, 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 and Type II or unspecified type diabetes mellitus with neurological manifestations, not stated as uncontrolled E11.49 [facility] [address] 47845- 2058 Aug, [facility] [address] 77982- 8384 Jul, Presence of IVC filter Z95.[address] 59014- 9297 Jul, Rotator cuff tear, right M75.101 [place] [id number] [place] [address] 06349- 5660 Jul, [facility] [address] 62517- 9989 Jul, [place] [id number] [place] [address] 79870- 1781 Jul, [place] [address] 15393- 6076 Jun, Leukocytosis, unspecified elevated WBC count D72.829 and Mixed hyperlipidemia E78.[address] 07432- 3939 Jun, Type 2 diabetes mellitus with diabetic polyneuropathy E11.42 ; Hypothyroidism, unspecified hypothyroidism type E03.9 ; Elevated ALT measurement R74.0 ; Mixed hyperlipidemia E78.2 ; Primary insomnia F51.01 ; Seizure-like activity R56.9 ; Presence of IVC filter Z95.828 and Elevated liver enzymes R74.8 [facility] [id number] [place] [address] 87740- 0802 Jun, [place] [address] 62324- 0116 Jun, Hammertoe M20.40 and 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 [place] [address] 81356- 7192 Jun, Elevated liver enzymes R74.8 [facility] [place] [id number] [place] [address] 02997- 7551 Jun, Elevated liver enzymes R74.8 [place] [address] 14597- 6414 May, Elevated liver enzymes R74.8 [place] [address] 65113- 9442 May, Hypertension 401.9 ; Hirsutism 704.1 and Hypokalemia 276.8 [place] [address] 17211- 3318 May, Hypertension 401.9 ; Hirsutism 704.1 and Hypokalemia 276.8 [facility] [place] [id number] [place] [address] 76581- 3882 May, Impingement syndrome of right shoulder 726.2 and SLAP lesion of right shoulder 840.7 [place] [id number] [place] [address] 78066- 2745 May, [place] [address] 86114- 5933 Mar, Decreased sex drive 799.81 and Foot pain, bilateral 729.5 [place] [place] [id number] [place] [address] 01445- 3413 Mar, Impingement syndrome of right shoulder 726.2 [facility] [place] [address] [facility] [id number] [address] Mar, [facility] [address] [facility] [id number] [id number] 10 Mar, 2015 Dental examination V72.2 [facility] [place] [id number] [address]- 7628 11 Feb, 2015 Subacromial bursitis 726.19 [facility] [place] [address] [address]- 4779 Feb, [facility] [place] [address] [address]- 8576 January, [facility] [place] [address], [place] [address]- 3830 January, Muscle spasms of lower extremity 728.85 ; Diabetes mellitus , type II 250.00 ; Hypertension 401.9 ; Neuropathy 355.9 ; Hyperlipidemia LDL goal < 100 272.4 ; Hypothyroidism 244.9 ; Insomnia 780.52 ; History of Guillain- Woodbine syndrome V12.49 ; Acid reflux disease 530.81 ; Presence of IVC filter V45.89 and Anxiety 300.00 IMMUNIZATIONS No Known Immunizations SOCIAL HISTORY Never Assessed REASON FOR VISIT Weight Management -- andrea floyd PLAN OF CARE Activity Details Follow Up 3 Months Reason:DMII VITAL SIGNS Height 61 in 2017-05-24 Weight 156.0 lbs 2017-05-24 Temperature 97.0 degrees Fahrenheit 2017-05-24 BMI 29.47 kg/m2 2017-05-24 Blood pressure systolic 120 mmHg 2017-05-24 Blood pressure diastolic 76 mmHg 2017-05-24 MEDICATIONS Medication Instructions Dosage Frequency Start Date End Date Duration Status Ranitidine HCl 150 MG TAKE ONE TABLET BY MOUTH TWICE DAILY 30 Active Victoza 18 MG/3ML Subcutaneous Once a day x1 week then increase to 1.2mg daily after that 0.6mg Mar, 30 day(s) Active Lidoderm 5 % Externally Once a day 1 patch to intact skin remove after 12 hours 24h Aug, Active Potassium Chloride 10 MEQ Orally Twice a day 1 capsule 12h 30 Active Pravastatin Sodium 40 mg Orally Once a day 1 tablet 24h 90 Active Multivitamin Active Levothyroxine Sodium 50 MCG Orally Once a day 1 tablet 24h 30 Active Pen [place] 32G X 4 MM as directed 24h Apr, Active Lisinopril 5 mg Orally Once a day 1 tablet 24h 90 Active Contrave 8-90 MG Orally Twice a day 2 tablets 12h Nov, 30 day(s ) Active Metformin HCl 500 mg Orally Twice a day 1 tablet with meals 12h 30 days Active Duloxetine HCl 60 MG Orally Once a day 1 capsule 24h 30 Active Glucometer 1 kit subcutaneously Once a day OneTouch Verio meter 24h Apr Active Ibuprofen 200 MG Orally every 6 hrs 1 tablet as needed 6h Active Omeprazole 40 mg Orally Once a day 1 capsule 24h 90 Active Promethazine HCl 25 MG TAKE ONE TABLET BY MOUTH EVERY 6 HOURS NEEDED 15 Active Potassium Chloride ER 10 MEQ TAKE ONE CAPSULE BY MOUTH TWICE DAILY 30 Active Test strips Test Strips subcutaneously - test once daily OneTouch Verio test strips as directed Apr, Active RESULTS No Results PROCEDURES Procedure Date Ordered Result Body Site [facility] VISIT ESTABLISHED PATIENT May 24, 2017 INSTRUCTIONS MEDICATIONS ADMINISTERED No Known Medications MEDICAL [...]
--- OUTSIDE RECORDS SUMMARY | 2018-10-08 06:07 | XMS REPORT ---
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 607456648826124 Problem Leukocytosis, unspecified type D72.829 Active 918929069 Problem Gastroesophageal reflux disease, esophagitis presence not specified K21.9 Active 548003353 Problem Morbid obesity due to excess calories E66.01 Active 116668031 Problem Non-pressure chronic ulcer of other part of left foot limited to breakdown of skin L97.521 Active 036225049 Problem Fatty liver K76.0 Active 725755138 Problem Tinnitus of both ears H93.13 Active 3536207529011 Problem Sensorineural hearing loss (SNHL) of both ears H90.3 Active 961199365 Problem Hirsutism L68.0 Active 313471666 Problem Hypothyroidism, unspecified hypothyroidism type E03.9 Active 49832053 Problem Essential hypertension I10 Active 40126488 Problem Type 2 diabetes mellitus with foot ulcer E11.621 Active 623003539207233 Problem Non-pressure chronic ulcer of other part of right foot limited to breakdown of skin L97.511 Active 514887365 Problem 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 Active 77694535 Problem Constipation by delayed colonic transit K59.01 Active 75453387 Problem Anxiety F41.9 Active 90212807 Problem Type 2 diabetes mellitus with diabetic polyneuropathy E11.42 Active 943009956 Problem Primary insomnia F51.01 Active 655310582 Problem Mixed hyperlipidemia E78.2 Active 689530066 Problem Elevated ALT measurement R74.0 Active 091182495 Problem DM neuro manif type II E11.49 Active 37208115 Problem 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 Active 557548775 Problem Type II or unspecified type diabetes mellitus with neurological manifestations, not stated as uncontrolled E11.49 Active 72969031 ALLERGIES No Known Allergies ENCOUNTERS Encounter Location Date Diagnosis [facility] [id number] [place] [address] [phone] Mar, [place] [address] [id number] January, [facility] [address] [id number] January, Dental examination Z01.20 [facility] [address] [id number] January, Dental caries K02.9 [place] [address] [address]- [address] January, Type 2 diabetes mellitus with foot ulcer E11.621 ; Flexion deformity of finger joint of left hand M21.242 ; Chronic cough R05 ; Tinnitus of both ears H93.13 ; Sensorineural hearing loss (SNHL) of both ears H90.3 and Leukocytosis, unspecified type D72.829 [place] [id number] [place] [address] [phone] January, [facility] [id number] [place] [address] [id number] Dec, Dental examination Z01.20 [place] [id number] [place] [address] [phone]- [phone] Dec, Medicare annual wellness visit, initial Z00.00 ; DM neuro manif type II E11.49 ; Morbid obesity due to excess calories E66.01 ; Essential hypertension I10 ; Anxiety F41.9 ; 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 ; Encounter for immunization Z23 ; Cough R05 and 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 [place] [address] [place] [address] 58302- 2307 Dec, Cough R05 [place] [id number] [place] [address] 17943- 0103 Nov, [place] [id number] [place] [address] 14553- 1707 Nov, Screening for breast cancer Z12.31 [place] [id number] [place] [address] 10482- 3046 Oct, [place] [id number] [place] [address] 64133- 3515 Oct, [place] [id number] [place] [address] 26471- 0185 Oct, Type 2 diabetes mellitus with diabetic [...] to breakdown of skin L97.521 [place] [address] [place] [address] 49151- 3857 Sep, [place] [address] [place] [address] 28553- 5797 Sep, [place] [id number] [place] [address] 21644- 4031 Aug, 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 [place] [address] [place] [address] 19280- 3668 Jul, [place] [id number] [place] [address] 71658- 5598 May, Type 2 diabetes mellitus with diabetic polyneuropathy E11.42 [facility] [address] [address] 7[address] May, [facility] [address], [place] [address]- [address] May, [facility] [address] [address] 56[address] Apr, Type 2 diabetes mellitus with diabetic polyneuropathy E11.42 and Morbid obesity due to excess calories E66.01 [facility] [address] [address] 9[address] Apr, [facility] [address] [address] 69[address] Apr, Type 2 diabetes mellitus with diabetic polyneuropathy E11.42 [facility] [address] [address] Apr, [facility] [address] [address]- 5524 Mar, [facility] [address] [address] 43[address] Mar, [facility] [address] [address] Mar, [facility] [address] [address] 1567 Mar, Type 2 diabetes mellitus with diabetic polyneuropathy E11.42 [facility] [id number] [address] Feb, [facility] [address] [address] 2468 Feb, [facility] [address] [address] 3[address] Feb, Type 2 diabetes mellitus with diabetic polyneuropathy E11.42 ; Preoperative examination Z01.818 ; Wound, open, foot, left, initial encounter S91.302A ; Weight loss R63.4 and Tobacco abuse Z72.0 [place] [id number] [place] [address] 63557- 8409 Nov, [facility] [id number] [place] [address] 31333- 4282 Nov, Pelvic pain R10.2 [place] [id number] [place] [address] 69822- 0956 Nov, Morbid obesity due to excess calories E66.01 [place] [id number] [place] [address] 88926- 2245 Nov, [place] [id number] [place] [address] 17867- 8248 Nov, [place] [id number] [place] [address] 91380- 9381 Nov, [facility] [id number] [place] [address] 26842- 7941 Nov, [facility] [id number] [place] [address] 93437- 9893 Oct, [facility] [id number] [place] [address] 05826- 2916 Oct, [place] [id number] [place] [address] 09226- 6684 Oct, Well woman exam Z01.419 ; Pelvic pain R10.2 and Type 2 diabetes mellitus with diabetic polyneuropathy E11.42 [place] [id number] [place] [address] 66563- 9066 Oct, 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 [place] [id number] [place] [address] 60709- 9590 Sep, Essential hypertension I10 ; Mixed hyperlipidemia E78.2 ; Leukocytosis, unspecified type D72.829 and Morbid obesity due to excess calories E66.01 [facility] [id number] [place] [address] 81546- 8843 Sep, [facility] [id number] [place] [address] 03764- 2750 Aug, Hypothyroidism, unspecified hypothyroidism type E03.9 [facility] [id number] [place] [address] 97875- 0610 Aug, Hirsutism L68.0 ; Primary insomnia F51.01 ; BMI 37.0-37.9, adult Z68.37 and Gastroesophageal reflux disease, esophagitis presence not specified K21.9 [place] [id number] [place] [address] 76471- 4703 Jul, [place] [address] 74126- 3158 Jun, [place] [id number] [place] [address] 51832- 1390 Jun, [place] [id number] [place] [address] 52517- 6504 Jun, Hypothyroidism, unspecified hypothyroidism type E03.9 [place] [id number] [place] [address] 73854- 2541 Jun, Type 2 diabetes mellitus with diabetic polyneuropathy E11.42 ; Fatty liver K76.0 ; Leukocytosis, unspecified type D72.829 ; Morbid obesity due to excess calories E66.01 ; Hypotension due to drugs I95.2 ; Non- intractable vomiting with nausea, unspecified vomiting type R11.2 and Mixed hyperlipidemia E78.2 [place] [id number] [place] [address] 90506- 3298 Jun, [facility] [id number] [place] [address] 79936- 4384 Apr, [facility] [id number] [place] [address] 45531- 7216 Apr, [place] [id number] [place] [address] 83264- 3845 Mar, Eustachian tube dysfunction, bilateral H69.83 [place] [id number] [place] [address] 43830- 9478 Mar, [place] [id number] [place] [address] 60801- 3473 Feb, [place] [address] 84527- 5886 Feb, Type 2 diabetes mellitus with diabetic polyneuropathy E11.42 ; Periodic limb movement sleep disorder G47.61 ; Hirsutism L68.0 ; Leukocytosis, unspecified type D72.829 and Postural dizziness R42 [place] [id number] [place] [address] 66217- 8498 Dec, Onychomycosis B35.1 and Foot ulcer L97.509 [place] [address] 45234- 7752 Nov, [place] [id number] [place] [address] 14628- 4368 Nov, Preoperative cardiovascular examination Z01.810 ; Type 2 diabetes mellitus with diabetic polyneuropathy E11.42 and Essential hypertension I10 [place] [id number] [place] [address] 36951- 2311 Oct, 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 ; Hammertoe M20.40 and DM neuro manif type II E11.49 [place] [id number] [place] [address] 49454- 3169 Oct, Impingement syndrome of right shoulder M75.41 [place] [id number] [place] [address] 93632- 3574 Sep, [place] [id number] [place] [address] 20148- 7745 Sep, [place] [address] [place] [address]- 7219 Sep, Leukocytosis, unspecified elevated WBC count D72.829 [place] [address] 20674- 5956 Sep, Leukocytosis, unspecified elevated WBC count D72.829 [place] [id number] [place] [address] 53532- 9107 Sep, [place] [id number] [place] [address] 93889- 6429 Sep, [place] [id number] [place] [address] 86253- 6667 Sep, [place] [id number] [place] [address] 82519- 3098 Sep, Periodic limb movement sleep disorder G47.61 ; Leukocytosis , unspecified elevated WBC count D72.829 and Mixed hyperlipidemia E78.2 [place] [id number] [place] [address] 93740- 5577 Sep, Periodic limb movement sleep disorder G47.61 [place] [address] 12197- 6009 Aug, [place] [id number] [place] [address] 51286- 7266 Aug, Type 2 diabetes mellitus with diabetic polyneuropathy E11.42 ; 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 and Major depressive disorder , recurrent episode, mild F33.0 [place] [id number] [place] [address] 81884- 2234 Aug, Impingement syndrome of right shoulder M75.41 [place] [id number] [place] [address] 69579- 9786 Aug, Shortness of breath R06.02 [place] [id number] [place] [address] 40974- 9627 Aug, [place] [id number] [place] [address] 56258- 9419 Aug, 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 and Type II or unspecified type diabetes mellitus with neurological manifestations, not stated as uncontrolled E11.49 [place] [id number] [place] [address] 00806- 2040 Aug, [place] [address] 50005- 7072 Jul, Presence of IVC filter Z95.828 [place] [address] 64038- 8639 Jul, Rotator cuff tear, right M75.101 [place] [address] 43276- 3688 Jul, [place] [address] 46655- 4110 Jul, [place] [address] 52537- 3688 Jul, [place] [id number] [place] [address] 57815- 6239 Jun, Leukocytosis, unspecified elevated WBC count D72.829 and Mixed hyperlipidemia E78.2 [place] [id number] [place] [address] 82534- 6396 Jun, Type 2 diabetes mellitus with diabetic polyneuropathy E11.42 ; Hypothyroidism, unspecified hypothyroidism type E03.9 ; Elevated ALT measurement R74.0 ; Mixed hyperlipidemia E78.2 ; Primary insomnia F51.01 ; Seizure-like activity R56.9 ; Presence of IVC filter Z95.828 and Elevated liver enzymes R74.8 [place] [id number] [place] [address] 80586- 7847 Jun, [place] [id number] [place] [address] 27629- 9034 Jun, Hammertoe M20.40 and 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 [facility] [id number] [place] [address] 53170- 3637 Jun, Elevated liver enzymes R74.8 [facility] [id number] [place] [address] 20784- 8720 Jun, Elevated liver enzymes R74.8 [facility] [id number] [place] [address] 66379- 7812 30 May, 2015 Elevated liver enzymes R74.8 [facility] [id number] [place] [address] 36384- 2266 28 May, 2015 Hypertension 401.9 ; Hirsutism 704.1 and Hypokalemia 276.8 [place] [id number] [place] [address] 96362- 8291 22 May, 2015 Hypertension 401.9 ; Hirsutism 704.1 and Hypokalemia 276.8 [place] [id number] [place] [address] 14953- 9592 17 May, 2015 Impingement syndrome of right shoulder 726.2 and SLAP lesion of right shoulder 840.7 [facility] [id number] [place] [address] 98463- 4393 11 May, 2015 [place] [id number] [place] [address] 62932- 5738 Mar, Decreased sex drive 799.81 and Foot pain, bilateral 729.5 [facility] [id number] [place] [address] 03098- 7458 Mar, Impingement syndrome of right shoulder 726.2 [facility] [id number] [place] [address] 04641- 3038 13 Mar, 2015 [facility] [id number] [place] [address] [phone] Mar, 2015 Dental examination V72.2 [facility] [id number] [place] [address] 52166- 2444 11 Feb, 2015 Subacromial bursitis 726.19 [facility] [address] [facility] [id number] [place] [address]- 7136 Feb, [facility] [address] [facility] [id number] [address]- 5089 January, [facility] [address] [facility] [id number] [address]- 0952 January, Muscle spasms of lower extremity 728.85 ; Diabetes mellitus , type II 250.00 ; Hypertension 401.9 ; Neuropathy 355.9 ; Hyperlipidemia LDL goal < 100 272.4 ; Hypothyroidism 244.9 ; Insomnia 780.52 ; History of Guillain- Lee Vining syndrome V12.49 ; Acid reflux disease 530.81 ; Presence of IVC filter V45.89 and Anxiety 300.00 IMMUNIZATIONS No Known Immunizations SOCIAL HISTORY Never Assessed REASON FOR VISIT warming sensation on right leg, States she has been having a warm, tingling sensation to right lower leg for the past 3 months. The top of her foot does this as well. -ALTHEA Sánchez PLAN OF CARE Activity Details Follow Up prn after Neurology Reason: VITAL SIGNS Height 61 in 2017-09-06 Weight 158 lbs 2017-09-06 Temperature 98 degrees Fahrenheit 2017-09-06 Heart Rate 90 bpm 2017-09-06 Respiratory Rate 18 2017-09-06 BMI 29.85 kg/m2 2017-09-06 Blood pressure systolic 100 mmHg 2017-09-06 Blood pressure diastolic 60 mmHg 2017-09-06 MEDICATIONS Medication Instructions Dosage Frequency Start Date End Date Duration Status Metformin HCl 500 mg Orally Twice a day 1 tablet with meals 12h 90 days Active Lisinopril 5 mg Orally Once a day 1 tablet 24h 90 Active Duloxetine HCl 60 MG Orally Once a day 1 capsule 24h 30 Active Test strips Test Strips subcutaneously - test once daily OneTouch Verio test strips as directed Apr, Active Benzonatate 200 MG Orally Three times a day 1 capsule as needed 8h Not-Taking Promethazine HCl 25 MG TAKE ONE TABLET BY MOUTH EVERY 6 HOURS NEEDED 15 Active Levothyroxine Sodium 50 MCG Orally Once a day 1 tablet 24h 30 Active Lidoderm 5 % Externally Once a day 1 patch to intact skin remove after 12 hours 24h Aug, Active Pen Robert 32G X 4 MM as directed 24h Apr, Active Cyclobenzaprine HCl 5 MG Orally every 8 hours as needed 1-2 tablets 30 Not-Taking Multivitamin Active Flonase 50 MCG/ACT Nasally Once a day 2 spray in each nostril 24h Mar, Not-Taking OneTouch Verio - TEST DAILY 50 Active Omeprazole 40 mg Orally Once a day 1 capsule 24h 90 Active Potassium Chloride ER 10 MEQ TAKE ONE CAPSULE BY MOUTH TWICE DAILY 30 Not-Taking Pravastatin Sodium 40 mg Orally Once a day 1 tablet 24h 90 Active Lorazepam 1 MG Orally Twice a day 1 tablet as needed 12h May, 28 days Not-Taking Victoza 18 MG/3ML Subcutaneous Once a day 0.6mg 24h Mar, 30 day (s) Active Glucometer 1 kit subcutaneously Once a day OneTouch Verio meter 24h Apr Active Ranitidine HCl 150 MG TAKE ONE TABLET BY MOUTH TWICE DAILY 30 Active Potassium Chloride 10 MEQ Orally Twice a day 1 capsule 12h 30 Active Contrave 8-90 MG Orally Twice a day 2 tablets 12h Nov, 30 day(s ) Not-Taking Ibuprofen 200 MG Orally every 6 hrs 1 tablet as needed 6h Active Josiah Mag Zinc +D3 Orally daily 1 tab 24h Not-Taking RESULTS No Results PROCEDURES Procedure Date Ordered Result Body Site [facility] VISIT ESTABLISHED PATIENT Sep 06, 2017 INSTRUCTIONS MEDICATIONS ADMINISTERED No Known Medications [...]
--- OUTSIDE RECORDS SUMMARY | 2018-10-08 06:07 | XMS REPORT ---
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 Active 850813110 Problem Fatty liver K76.0 Active 431391996 Problem Chronic prescription benzodiazepine use Z79.899 Active 623601715 Problem Morbid obesity due to excess calories E66.01 Active 916525097 Problem DM neuro manif type II E11.49 Active 40051707 Problem Elevated ALT measurement R74.0 Active 533699408 Problem Leukocytosis, unspecified type D72.829 Active 163199929 Problem Periodic limb movement sleep disorder G47.61 Active 166286019 Problem Presence of IVC filter Z95.828 Active 286947364 Problem 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
--- OUTSIDE RECORDS SUMMARY | 2018-10-08 06:08 | XMS REPORT ---
Author Author ASPENGEO SHULTZ Organization [facility] Address [address] [place] [address] Care Team Providers Care Telesales Agent Name Role Phone GEO LOUISE Unavailable PROBLEMS Type Condition ICD9-CM Code GOA72-VX Code Onset Dates Condition Status SNOMED Code Problem DM neuro manif type II E11.49 Active 59012193 Problem Leukocytosis, unspecified type D72.829 Active 349713077 Problem Periodic limb movement sleep disorder G47.61 Active 869164535 Problem Type 2 diabetes mellitus with foot ulcer E11.621 Active 586722247771072 Problem Gastroesophageal reflux disease, esophagitis presence not specified K21.9 Active 530538789 Problem Non-pressure chronic ulcer of other part of right foot limited to breakdown of skin L97.511 Active 597686207 Problem 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 Active 990253873420941 Problem Presence of IVC filter Z95.828 Active 118858689 Problem Fatty liver K76.0 Active 732137548 Problem Morbid obesity due to excess calories E66.01 Active 829990094 Problem Non-pressure chronic ulcer of other part of left foot limited to breakdown of skin L97.521 Active 844977726 Problem Constipation by delayed colonic transit K59.01 Active 87542718 Problem Hirsutism L68.0 Active 870784079 Problem Primary insomnia F51.01 Active 239532215 Problem Hypothyroidism, unspecified hypothyroidism type E03.9 Active 56644333 Problem Essential hypertension I10 Active 19099453 Problem Type 2 diabetes mellitus with diabetic polyneuropathy E11.42 Active 662935841 Problem 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 Active 520097127 Problem Chronic prescription benzodiazepine use Z79.899 Active 297777772 Problem Mixed hyperlipidemia E78.2 Active 357646183 Problem Type II or unspecified type diabetes mellitus with neurological manifestations, not stated as uncontrolled E11.49 Active 72060901 Problem Delayed gastric emptying K30 Active 877142899 Problem Anxiety F41.9 Active 11472979 Problem Elevated ALT measurement R74.0 Active 989346042 ALLERGIES No Information ENCOUNTERS Encounter Location Date Diagnosis [place] [id number] [place] [address]18- 1971 Dec, Medicare annual wellness visit, initial Z00.00 [place] [id number] [place] [address] 82605- 2822 15 Nov, 2017 [place] [id number] [place] [address] 98751- 6031 05 Nov, 2017 Screening for breast cancer Z12.31 [place] [id number] [place] [address] 38579- 9158 12 Oct, 2017 [place] [id number] [place] [address] 57031- 8416 12 Oct, 2017 [place] [id number] [place] [address] 02824- 7581 07 Oct, 2017 Type 2 diabetes mellitus [...] foot limited to breakdown of skin L97.521 [place] [id number] [place] [address] 03702- 2770 Sep, [place] [id number] [place] [address] 87358- 6906 Sep, [place] [id number] [place] [address] 10584- 9018 Aug, 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 [place] [id number] [place] [address] 71424- 0631 Jul, [facility] [address], [place] [address] May, Type 2 diabetes mellitus with diabetic polyneuropathy E11.42 [facility] [address], [place] [address] 4280 18 May, 2017 [facility] [address], [place] [address] 1098 May, [facility] [address], [place] [address] 405[address] Apr, Type 2 diabetes mellitus with diabetic polyneuropathy E11.42 and Morbid obesity due to excess calories E66.01 [facility] [address], [place] [address] 9377 Apr, [facility] [id number] [address] 4074 Apr, Type 2 diabetes mellitus with diabetic polyneuropathy E11.42 [facility] [address], [place] [address] Apr, [facility] [address] [place] [address] 70120- 3339 Mar, [facility] [address], [place] [address] 0104 Mar, [facility] [address], [place] [address] 5319 Mar, [facility] [address], [place] [address] 3566 Mar, Type 2 diabetes mellitus with diabetic polyneuropathy E11.42 [facility] [address], [place] [address] 8087 Feb, [facility] [address], [place] [address] 4992 Feb, [facility] [address] [place] [address] 70875- 5177 Feb, Type 2 diabetes mellitus with diabetic polyneuropathy E11.42 ; Preoperative examination Z01.818 ; Wound, open, foot, left, initial encounter S91.302A ; Weight loss R63.4 and Tobacco abuse Z72.0 [facility] [address] [place] [address] 34693- 2515 Nov, [facility] [id number] [place] [address] 15570- 1164 Nov, Pelvic pain R10.2 [facility] [id number] [place] [address] 27650- 7576 Nov, Morbid obesity due to excess calories E66.01 [facility] [id number] [place] [address] 80489- 0868 Nov, [facility] [id number] [place] [address] 19534- 9591 Nov, [facility] [id number] [place] [address] 97006- 7545 Nov, [facility] [id number] [place] [address] 83864- 0874 Nov, [facility] [id number] [place] [address] 20986- 4651 Oct, [facility] [id number] [place] [address] 79951- 7478 Oct, [facility] [id number] [place] [address] 81915- 0474 Oct, Well woman exam Z01.419 ; Pelvic pain R10.2 and Type 2 diabetes mellitus with diabetic polyneuropathy E11.42 [facility] [address] [place] [address] 59015- 9884 Oct, 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 [facility] [id number] [place] [address] 72706- 0718 Sep, Essential hypertension I10 ; Mixed hyperlipidemia E78.2 ; Leukocytosis, unspecified type D72.829 and Morbid obesity due to excess calories E66.01 [place] [address] 31877- 4596 Sep, [place] [address] 40540- 6947 Aug, Hypothyroidism, unspecified hypothyroidism type E03.9 [place] [address] 02958- 0236 Aug, Hirsutism L68.0 ; Primary insomnia F51.01 ; BMI 37.0-37.9, adult Z68.37 and Gastroesophageal reflux disease, esophagitis presence not specified K21.9 [place] [address] 85041- 3260 Jul, [place] [address] 00267- 4428 Jun, [place] [address] 82222- 1337 Jun, [place] [address] 97304- 9103 Jun, Hypothyroidism, unspecified hypothyroidism type E03.9 [place] [id number] [place] [address] 69914- 0965 Jun, Type 2 diabetes mellitus with diabetic polyneuropathy E11.42 ; Fatty liver K76.0 ; Leukocytosis, unspecified type D72.829 ; Morbid obesity due to excess calories E66.01 ; Hypotension due to drugs I95.2 ; Non- intractable vomiting with nausea, unspecified vomiting type R11.2 and Mixed hyperlipidemia E78.2 [place] [id number] [place] [address] 44230- 3760 Jun, [place] [address] 88982- 4396 Apr, [place] [id number] [place] [address] 02237- 0714 Apr, [place] [address] 63934- 7257 Mar, Eustachian tube dysfunction, bilateral H69.83 [place] [address] 28001- 1553 Mar, [place] [address] 49952- 0099 Feb, [place] [address] 84445- 7827 Feb, Type 2 diabetes mellitus with diabetic polyneuropathy E11.42 ; Periodic limb movement sleep disorder G47.61 ; Hirsutism L68.0 ; Leukocytosis, unspecified type D72.829 and Postural dizziness R42 [address] 55636- 4361 Dec, Onychomycosis B35.1 and Foot ulcer L97.509 [place] [address] 28393- 4734 Nov, [place] [address] 66574- 9944 Nov, Preoperative cardiovascular examination Z01.810 ; Type 2 diabetes mellitus with diabetic polyneuropathy E11.42 and Essential hypertension I10 [place] [address] 48047- 3624 Oct, 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 ; Hammertoe M20.40 and DM neuro manif type II E11.[address] 67627- 3404 Oct, Impingement syndrome of right shoulder M75.41 [place] [address] 74407- 2941 Sep, [place] [address] [place] [address]- 2602 Sep, [place] [id number] [place] [address] 17469- 1306 Sep, Leukocytosis, unspecified elevated WBC count D72.829 [place] [id number] [place] [address] 96773- 8894 Sep, Leukocytosis, unspecified elevated WBC count D72.829 [place] [id number] [place] [address] 44119- 3034 Sep, [place] [id number] [place] [address] 61184- 4903 Sep, [place] [id number] [place] [address] 91424- 3422 Sep, [place] [id number] [place] [address] 70774- 6143 Sep, Periodic limb movement sleep disorder G47.61 ; Leukocytosis , unspecified elevated WBC count D72.829 and Mixed hyperlipidemia E78.2 [place] [id number] [place] [address] 75081- 8048 Sep, Periodic limb movement sleep disorder G47.61 [place] [id number] [place] [address] 54606- 5975 Aug, [place] [id number] [place] [address] 15061- 5304 Aug, Type 2 diabetes mellitus with diabetic polyneuropathy E11.42 ; 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 and Major depressive disorder , recurrent episode, mild F33.0 [place] [id number] [place] [address] 95947- 7720 Aug, Impingement syndrome of right shoulder M75.41 [place] [address] [place] [address] 47750- 0566 Aug, Shortness of breath R06.02 [place] [id number] [place] [address] 83750- 0975 Aug, [place] [address] 18481- 6218 Aug, 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 and Type II or unspecified type diabetes mellitus with neurological manifestations, not stated as uncontrolled E11.49 [place] [address] 81444- 4535 Aug, [place] [address] 15897- 4835 Jul, Presence of IVC filter Z95.[address] 33350- 3228 Jul, Rotator cuff tear, right M75.[address] 29234- 6220 Jul, [place] [address] 09095- 3884 Jul, [place] [address] 99177- 5250 Jul, [place] [address] 65827- 3144 Jun, Leukocytosis, unspecified elevated WBC count D72.829 and Mixed hyperlipidemia E78.[address] 38980- 2545 Jun, Type 2 diabetes mellitus with diabetic polyneuropathy E11.42 ; Hypothyroidism, unspecified hypothyroidism type E03.9 ; Elevated ALT measurement R74.0 ; Mixed hyperlipidemia E78.2 ; Primary insomnia F51.01 ; Seizure-like activity R56.9 ; Presence of IVC filter Z95.828 and Elevated liver enzymes R74.8 [place] [id number] [place] [address] 95501- 7361 Jun, [place] [address] 31821- 0040 Jun, Hammertoe M20.40 and 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 [place] [id number] [place] [address] 19438- 0939 Jun, Elevated liver enzymes R74.8 [facility] [id number] [place] [address] 04124- 7798 Jun, Elevated liver enzymes R74.8 [facility] [id number] [place] [address] 84757- 3763 30 May, 2015 Elevated liver enzymes R74.8 [place] [address] [place] [address] 11301- 9127 28 May, 2015 Hypertension 401.9 ; Hirsutism 704.1 and Hypokalemia 276.8 [place] [address] [place] [address] 69255- 0392 May, Hypertension 401.9 ; Hirsutism 704.1 and Hypokalemia 276.8 [facility] [address] [place] [address] 63891- 2793 17 May, 2015 Impingement syndrome of right shoulder 726.2 and SLAP lesion of right shoulder 840.7 [place] [id number] [place] [address] 62619- 0912 May, [place] [address] [place] [address] 78048- 9163 Mar, Decreased sex drive 799.81 and Foot pain, bilateral 729.5 [facility] [id number] [place] [address] 63050- 9323 Mar, Impingement syndrome of right shoulder 726.2 [facility] [id number] [place] [address] 36743- 5802 13 Mar, 2015 [facility] [id number] [place] [address] [id number] 10 Mar, 2015 Dental examination V72.2 [facility] [address] [facility] [id number] [address]- 8488 Feb, Subacromial bursitis 726.19 [facility] [id number] [place] [address]- 7409 Feb, [facility] [id number] [place] [address]- 4096 January, [facility] [address] [facility] [id number] [address]- 1129 January, Muscle spasms of lower extremity 728.85 ; Diabetes mellitus , type II 250.00 ; Hypertension 401.9 ; Neuropathy 355.9 ; Hyperlipidemia LDL goal < 100 272.4 ; Hypothyroidism 244.9 ; Insomnia 780.52 ; History of Guillain- Barnum syndrome V12.49 ; Acid reflux disease 530.81 ; Presence of IVC filter V45.89 and Anxiety 300.00 IMMUNIZATIONS No Known Immunizations SOCIAL HISTORY Never Assessed REASON FOR VISIT questions PLAN OF CARE VITAL SIGNS MEDICATIONS Medication [...]
--- OUTSIDE RECORDS SUMMARY | 2018-10-08 06:08 | XMS REPORT ---
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 Name Role Phone GEO LOUISE Unavailable PROBLEMS Type Condition ICD9-CM Code NHT86-MJ Code Onset Dates Condition Status SNOMED Code Problem DM neuro manif type II E11.49 Active 48911302 Problem Leukocytosis, unspecified type D72.829 Active 947723644 Problem Periodic limb movement sleep disorder G47.61 Active 045826675 Problem Type 2 diabetes mellitus with foot ulcer E11.621 Active 723904649037331 Problem Gastroesophageal reflux disease, esophagitis presence not specified K21.9 Active 260296654 Problem Non-pressure chronic ulcer of other part of right foot limited to breakdown of skin L97.511 Active 483068441 Problem 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 Active 052143818389274 Problem Presence of IVC filter Z95.828 Active 529061601 Problem Fatty liver K76.0 Active 098846153 Problem Morbid obesity due to excess calories E66.01 Active 330453334 Problem Non-pressure chronic ulcer of other part of left foot limited to breakdown of skin L97.521 Active 916621723 Problem Constipation by delayed colonic transit K59.01 Active 47947208 Problem Hirsutism L68.0 Active 866978958 Problem Primary insomnia F51.01 Active 189374154 Problem Hypothyroidism, unspecified hypothyroidism type E03.9 Active 03804347 Problem Essential hypertension I10 Active 13911834 Problem Type 2 diabetes mellitus with diabetic polyneuropathy E11.42 Active 842118345 Problem 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 Active 165318174 Problem Chronic prescription benzodiazepine use Z79.899 Active 638093495 Problem Mixed hyperlipidemia E78.2 Active 613375067 Problem Type II or unspecified type diabetes mellitus with neurological manifestations, not stated as uncontrolled E11.49 Active 64481164 Problem Delayed gastric emptying K30 Active 893830734 Problem Anxiety F41.9 Active 01650626 Problem Elevated ALT measurement R74.0 Active 996933637 ALLERGIES No Known Allergies ENCOUNTERS Encounter Location Date Diagnosis [facility] [id number] [place] [address]200- 2293 Dec, Medicare annual wellness visit, initial Z00.00 [facility] [id number] [place] [address] 03015- 0559 15 Nov, 2017 [facility] [id number] [place] [address] 09521- 0352 05 Nov, 2017 Screening for breast cancer Z12.31 [facility] [id number] [place] [address] 97814- 0940 12 Oct, 2017 [facility] [id number] [place] [address] 13452- 6857 12 Oct, 2017 [facility] [id number] [place] [address] 79160- 6530 07 Oct, 2017 Type 2 diabetes mellitus [...] foot limited to breakdown of skin L97.521 [facility] [address] [address] Sep, [facility] [id number] [place] [address] 88579- 4185 Sep, [facility] [id number] [place] [address] 59230- 0289 Aug, 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 [facility] [id number] [place] [address] 77468- 8553 Jul, [facility] [address] [address] May, Type 2 diabetes mellitus with diabetic polyneuropathy E11.42 [facility] [address] [address] 18 May, 2017 [facility] [address] [address] May, [facility] [address] [address] 99[address] Apr, Type 2 diabetes mellitus with diabetic polyneuropathy E11.42 and Morbid obesity due to excess calories E66.01 [facility] [address] [address] 9[address] Apr, [facility] [address] [address] 8[address] Apr, Type 2 diabetes mellitus with diabetic polyneuropathy E11.42 [facility] [address] [address] Apr, [facility] [address] [place] [address] 46350- 8592 Mar, [facility] [address] [address] 9275 Mar, [facility] [address] [address] 9432 Mar, [facility] [address] [address] 7373 Mar, Type 2 diabetes mellitus with diabetic polyneuropathy E11.42 [facility] [address] [address] Feb, [facility] [address] [address] 17[address] Feb, [facility] [address] [address] 4170 Feb, Type 2 diabetes mellitus with diabetic polyneuropathy E11.42 ; Preoperative examination Z01.818 ; Wound, open, foot, left, initial encounter S91.302A ; Weight loss R63.4 and Tobacco abuse Z72.0 [facility] [address] [address] 9798 Nov, [facility] [id number] [place] [address] 66469- 6146 Nov, Pelvic pain R10.2 [facility] [id number] [place] [address] 40929- 4922 Nov, Morbid obesity due to excess calories E66.01 [facility] [id number] [place] [address] 09953- 1691 Nov, [facility] [id number] [place] [address] 66304- 1859 Nov, [facility] [id number] [place] [address] 26427- 7650 Nov, [facility] [id number] [place] [address] 50177- 2279 Nov, [facility] [id number] [place] [address] 78621- 0839 Oct, [facility] [id number] [place] [address] 38353- 6202 Oct, [facility] [id number] [place] [address] 18175- 2548 Oct, Well woman exam Z01.419 ; Pelvic pain R10.2 and Type 2 diabetes mellitus with diabetic polyneuropathy E11.42 [facility] [id number] [place] [address] 52962- 3700 Oct, 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 [facility] [id number] [place] [address] 50062- 4878 Sep, Essential hypertension I10 ; Mixed hyperlipidemia E78.2 ; Leukocytosis, unspecified type D72.829 and Morbid obesity due to excess calories E66.01 [facility] [id number] [place] [address] 24801- 1458 Sep, [facility] [id number] [place] [address] 29930- 1181 Aug, Hypothyroidism, unspecified hypothyroidism type E03.9 [facility] [id number] [place] [address] 37034- 5146 Aug, Hirsutism L68.0 ; Primary insomnia F51.01 ; BMI 37.0-37.9, adult Z68.37 and Gastroesophageal reflux disease, esophagitis presence not specified K21.9 [facility] [address] [address]- 5774 Jul, [facility] [address] 60975- 6995 Jun, [facility] [address] 85631- 3414 Jun, [facility] [address] 34681- 8321 Jun, Hypothyroidism, unspecified hypothyroidism type E03.9 [facility] [id number] [place] [address] 23779- 8415 Jun, Type 2 diabetes mellitus with diabetic polyneuropathy E11.42 ; Fatty liver K76.0 ; Leukocytosis, unspecified type D72.829 ; Morbid obesity due to excess calories E66.01 ; Hypotension due to drugs I95.2 ; Non- intractable vomiting with nausea, unspecified vomiting type R11.2 and Mixed hyperlipidemia E78.2 [facility] [id number] [place] [address] 15225- 3251 Jun, [facility] [id number] [place] [address] 01672- 6760 Apr, [facility] [id number] [place] [address] 25051- 8565 Apr, [facility] [address] 57099- 6879 Mar, Eustachian tube dysfunction, bilateral H69.83 [facility] [address] 99921- 6241 Mar, [facility] [address] 55653- 3391 Feb, [facility] [id number] [place] [address] 89707- 3174 Feb, Type 2 diabetes mellitus with diabetic polyneuropathy E11.42 ; Periodic limb movement sleep disorder G47.61 ; Hirsutism L68.0 ; Leukocytosis, unspecified type D72.829 and Postural dizziness R42 [address] 7[address]- 1462 Dec, Onychomycosis B35.1 and Foot ulcer L97.509 [place] [id number] [place] [address] 96051- 8088 Nov, [address] 50469- 7207 Nov, Preoperative cardiovascular examination Z01.810 ; Type 2 diabetes mellitus with diabetic polyneuropathy E11.42 and Essential hypertension I10 [facility] [id number] [place] [address] 89882- 5253 Oct, 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 ; Hammertoe M20.40 and DM neuro manif type II E11.[address] 22957- 0210 Oct, Impingement syndrome of right shoulder M75.41 [facility] [id number] [place] [address] 00311- 3560 Sep, [facility] [address] [place] [address]- 0200 Sep, [facility] [id number] [place] [address] 97050- 3116 Sep, Leukocytosis, unspecified elevated WBC count D72.829 [facility] [id number] [place] [address] 51299- 2230 Sep, Leukocytosis, unspecified elevated WBC count D72.829 [facility] [id number] [place] [address] 29047- 2876 Sep, [facility] [id number] [place] [address] 21084- 6107 Sep, [facility] [id number] [place] [address] 00745- 1978 Sep, [facility] [id number] [place] [address] 85954- 7018 Sep, Periodic limb movement sleep disorder G47.61 ; Leukocytosis , unspecified elevated WBC count D72.829 and Mixed hyperlipidemia E78.2 [facility] [id number] [place] [address] 71690- 2727 Sep, Periodic limb movement sleep disorder G47.61 [facility] [id number] [place] [address] 00628- 7845 Aug, [facility] [id number] [place] [address] 41882- 1774 Aug, Type 2 diabetes mellitus with diabetic polyneuropathy E11.42 ; 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 and Major depressive disorder , recurrent episode, mild F33.0 [facility] [id number] [place] [address] 02999- 5510 Aug, Impingement syndrome of right shoulder M75.41 [facility] [id number] [place] [address] 22439- 1092 Aug, Shortness of breath R06.02 [facility] [address] 42420- 5488 Aug, [facility] [address] 84370- 4501 Aug, 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 and Type II or unspecified type diabetes mellitus with neurological manifestations, not stated as uncontrolled E11.[address] 53882- 9689 Aug, [facility] [address] 03884- 8061 Jul, Presence of IVC filter Z95.[address] 89255- 1600 Jul, Rotator cuff tear, right M75.[address] 73294- 0788 Jul, [facility] [address] 33632- 9610 Jul, [facility] [address] 50448- 8485 Jul, [facility] [address] 99097- 3864 Jun, Leukocytosis, unspecified elevated WBC count D72.829 and Mixed hyperlipidemia E78.[address] 00280- 7970 Jun, Type 2 diabetes mellitus with diabetic polyneuropathy E11.42 ; Hypothyroidism, unspecified hypothyroidism type E03.9 ; Elevated ALT measurement R74.0 ; Mixed hyperlipidemia E78.2 ; Primary insomnia F51.01 ; Seizure-like activity R56.9 ; Presence of IVC filter Z95.828 and Elevated liver enzymes R74.8 [place] [id number] [place] [address] 09289- 1668 Jun, [facility] [address] 78413- 1135 Jun, Hammertoe M20.40 and 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 [facility] [id number] [place] [address] 48656- 5561 Jun, Elevated liver enzymes R74.8 [facility] [id number] [place] [address] 10867- 7235 Jun, Elevated liver enzymes R74.8 [facility] [address] 63255- 7285 30 May, 2015 Elevated liver enzymes R74.8 [facility] [id number] [place] [address] 08464- 6658 28 May, 2015 Hypertension 401.9 ; Hirsutism 704.1 and Hypokalemia 276.8 [facility] [id number] [place] [address] 13498- 6650 May, Hypertension 401.9 ; Hirsutism 704.1 and Hypokalemia 276.8 [facility] [id number] [place] [address] 23867- 9516 17 May, 2015 Impingement syndrome of right shoulder 726.2 and SLAP lesion of right shoulder 840.7 [facility] [address] [place] [address] 87905- 2435 May, [facility] [id number] [place] [address] 52326- 2754 Mar, Decreased sex drive 799.81 and Foot pain, bilateral 729.5 [facility] [id number] [place] [address] 32685- 6376 Mar, Impingement syndrome of right shoulder 726.2 [facility] [id number] [place] [address] 86765- 9171 13 Mar, 2015 [facility] [id number] [place] [address] [phone] 10 Mar, 2015 Dental examination V72.2 [facility] [address] [facility] [id number] [address]- 4839 11 Feb, 2015 Subacromial bursitis 726.19 [place] [address] [facility] [id number] [address]- 8081 Feb, [facility] [address] [facility] [id number] [address]- 7417 January, [facility] [address] [facility] [id number] [address]- 6474 January, Muscle spasms of lower extremity 728.85 ; Diabetes mellitus , type II 250.00 ; Hypertension 401.9 ; Neuropathy 355.9 ; Hyperlipidemia LDL goal < 100 272.4 ; Hypothyroidism 244.9 ; Insomnia 780.52 ; History of Guillain- [place] syndrome V12.49 ; Acid reflux disease 530.81 ; Presence of IVC filter V45.89 and Anxiety 300.00 IMMUNIZATIONS No Known Immunizations SOCIAL HISTORY Never Assessed REASON FOR VISIT Wounds on feet--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 Dougherty, -Has plantar wart on left foot needing looked at. Went to ER for it a month ago. PLAN OF CARE Activity Details Follow Up 3 Months Reason:DMII VITAL SIGNS Height 61 in 2017-03-01 Weight 167.0 lbs 2017-03-01 Temperature 98.2 degrees Fahrenheit 2017-03-01 Heart Rate 74 bpm 2017-03-01 Respiratory Rate 18 2017-03-01 BMI 31.55 kg/m2 2017-03-01 Blood pressure systolic 126 mmHg 2017-03-01 Blood pressure diastolic 82 mmHg 2017-03-01 MEDICATIONS Medication Instructions Dosage Frequency Start Date End Date Duration Status Omeprazole 40 mg Orally Once a day 1 capsule 24h 90 Active Potassium Chloride 10 MEQ Orally Twice a day 1 capsule 12h 30 Active Ranitidine HCl 150 MG Orally Twice a day 1 capsule 12h 30 Active Lisinopril 5 mg Orally Once a day 1 tablet 24h 90 days Active Ibuprofen 200 MG Orally every 6 hrs 1 tablet as needed 6h Active Multivitamin Active Pravastatin Sodium 40 mg Orally Once a day 1 tablet 24h 90 days Active Promethazine HCl 25 MG Orally every 6 hours as needed 1 tablet as needed 15 Active Contrave 8-90 MG Orally Twice a day 2 tablets 12h Nov, 30 day(s ) Active Levothyroxine Sodium 50 MCG Orally Once a day 1 tablet 24h 30 Active Lidoderm 5 % Externally Once a day 1 patch to intact skin remove after 12 hours 24h Aug, Active Duloxetine HCl 60 mg Orally Once a day 1 capsule 24h Active Metformin HCl 500 MG Orally Twice a day 1 tablet with meals 12h Active RESULTS Name Result Date Reference Range A1C (IN HOUSE) 2017-03-01 A1C IN HOUSE 5.6 4.3 - 5.6 % Previous A1c 6.4 Lot [id number] Exp date 11/2018 PROCEDURES Procedure Date Ordered Result Body Site GLYCATED HEMOGLOBIN TEST March 01, 2017 [facility] ESTABLISHED PATIENT March 01, 2017 INSTRUCTIONS MEDICATIONS ADMINISTERED No Known Medications [...]
--- OUTSIDE RECORDS SUMMARY | 2018-10-08 06:08 | XMS REPORT ---
Author Author ASPENGEO SHULTZ Organization [facility] Address [address] [place] [address] Care Team Providers Care Knitting Inspector Name Role Phone GEO LOUISE Unavailable PROBLEMS Type Condition ICD9-CM Code [id number] Code Onset Dates Condition Status SNOMED Code Problem DM neuro manif type II E11.49 Active 29745019 Problem Leukocytosis, unspecified type D72.829 Active 736505662 Problem Periodic limb movement sleep disorder G47.61 Active 194289735 Problem Type 2 diabetes mellitus with foot ulcer E11.621 Active 268203081306480 Problem Gastroesophageal reflux disease, esophagitis presence not specified K21.9 Active 551932294 Problem Non-pressure chronic ulcer of other part of right foot limited to breakdown of skin L97.511 Active 500848617 Problem 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 321285180952795 Problem Presence of IVC filter Z95.828 Active 631339970 Problem Fatty liver K76.0 Active 214200584 Problem Morbid obesity due to excess calories E66.01 Active 003731356 Problem Non-pressure chronic ulcer of other part of left foot limited to breakdown of skin L97.521 Active 810664952 Problem Constipation by delayed colonic transit K59.01 Active 05176640 Problem Hirsutism L68.0 Active 312328934 Problem Primary insomnia F51.01 Active 482326330 Problem Hypothyroidism, unspecified hypothyroidism type E03.9 Active 70480837 Problem Essential hypertension I10 Active 56631580 Problem Type 2 diabetes mellitus with diabetic polyneuropathy E11.42 Active 667297601 Problem 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 Active 420152520 Problem Chronic prescription benzodiazepine use Z79.899 Active 539113188 Problem Mixed hyperlipidemia E78.2 Active 890911934 Problem Type II or unspecified type diabetes mellitus with neurological manifestations, not stated as uncontrolled E11.49 Active 16968416 Problem Delayed gastric emptying K30 Active 276486958 Problem Anxiety F41.9 Active 44623784 Problem Elevated ALT measurement R74.0 Active 594546061 ALLERGIES No Information ENCOUNTERS Encounter Location Date Diagnosis [facility] [place] [id number] [place] [address] 78611- 0459 January, [place] [id number] [place] [address] 23021- 6674 Dec, Medicare annual wellness visit, initial Z00.00 [place] [id number] [place] [address] 00058- 3422 15 Nov, 2017 [place] [id number] [place] [address] 27685- 7701 05 Nov, 2017 Screening for breast cancer Z12.31 [facility] [id number] [place] [address] 62057- 5242 12 Oct, 2017 [place] [id number] [place] [address] 44505- 8663 12 Oct, 2017 [place] [id number] [place] [address] 07709- 0622 07 Oct, 2017 Type 2 diabetes mellitus [...] foot limited to breakdown of skin L97.521 [place] [id number] [place] [address] 24577- 1671 Sep, [place] [id number] [place] [address] 68234- 4176 Sep, [place] [id number] [place] [address] 54224- 2121 Aug, 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 [facility] [address], [place] [address] 5677 Jul, [facility] [id number] [place] [address] 31049- 5027 28 May, 2017 Type 2 diabetes mellitus with diabetic polyneuropathy E11.42 [facility] [address] [address] 0707 18 May, 2017 [facility] [id number] [place] [address] 32350- 9933 15 May, 2017 [facility] [id number] [place] [address] 97580- 1805 Apr, Type 2 diabetes mellitus with diabetic polyneuropathy E11.42 and Morbid obesity due to excess calories E66.01 [facility] [address] [address] 5886 Apr, [facility] [address] [place] [address] 73740- 7304 Apr, Type 2 diabetes mellitus with diabetic polyneuropathy E11.42 [facility] [address] [place] [address] 50509 -8394 Apr, [facility] [id number] [place] [address] 91116- 4532 Mar, [facility] [id number] [place] [address] 31466- 8754 Mar, [facility] [address], [place] [address] 3648 Mar, [facility] [address] [place] [address] 62099- 4379 Mar, Type 2 diabetes mellitus with diabetic polyneuropathy E11.42 [facility] [address], [place] [address] 5180 Feb, [facility] [id number] [place] [address] 45192- 6242 Feb, [facility] [address], [place] [address] 7496 Feb, Type 2 diabetes mellitus with diabetic polyneuropathy E11.42 ; Preoperative examination Z01.818 ; Wound, open, foot, left, initial encounter S91.302A ; Weight loss R63.4 and Tobacco abuse Z72.0 [facility] [id number] [place] [address] 96028- 5332 Nov, [facility] [id number] [place] [address] 33571- 6153 Nov, Pelvic pain R10.2 [facility] [id number] [place] [address] 43845- 0827 Nov, Morbid obesity due to excess calories E66.01 [facility] [address], [place] [address]- 0292 Nov, [facility] [address] [address] 5188 Nov, [facility] [id number] [place] [address] 83664- 4336 Nov, [facility] [address], [place] [address]- 3341 Nov, [facility] [address], [place] [address]- 5318 Oct, [facility] [address], [place] [address]- 1163 Oct, [facility] [address], [place] [address]- 8310 Oct, Well woman exam Z01.419 ; Pelvic pain R10.2 and Type 2 diabetes mellitus with diabetic polyneuropathy E11.42 [facility] [address], [place] [address]- 7501 Oct, 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 [facility] [address] [place] [address] 71525- 4039 Sep, Essential hypertension I10 ; Mixed hyperlipidemia E78.2 ; Leukocytosis, unspecified type D72.829 and Morbid obesity due to excess calories E66.01 [facility] [id number] [place] [address] 26337- 9283 Sep, [place] [address] 23025- 8889 Aug, Hypothyroidism, unspecified hypothyroidism type E03.9 [facility] [id number] [place] [address] 65936- 5647 Aug, Hirsutism L68.0 ; Primary insomnia F51.01 ; BMI 37.0-37.9, adult Z68.37 and Gastroesophageal reflux disease, esophagitis presence not specified K21.9 [facility] [id number] [place] [address] 39668- 2542 Jul, [facility] [id number] [place] [address] 52291- 9369 Jun, [place] [id number] [place] [address] 11487- 0217 Jun, [facility] [id number] [place] [address] 86603- 8813 Jun, Hypothyroidism, unspecified hypothyroidism type E03.9 [facility] [id number] [place] [address] 08908- 8963 Jun, Type 2 diabetes mellitus with diabetic polyneuropathy E11.42 ; Fatty liver K76.0 ; Leukocytosis, unspecified type D72.829 ; Morbid obesity due to excess calories E66.01 ; Hypotension due to drugs I95.2 ; Non- intractable vomiting with nausea, unspecified vomiting type R11.2 and Mixed hyperlipidemia E78.2 [facility] [id number] [place] [address] 99662- 8814 Jun, [place] [address], [place] [address]- 1453 Apr, [facility] [id number] [place] [address] 22582- 5082 Apr, [facility] [id number] [place] [address] 42070- 9195 Mar, Eustachian tube dysfunction, bilateral H69.83 [place] [id number] [place] [address] 44617- 6896 Mar, [facility] [id number] [place] [address] 70830- 3579 Feb, [facility] [id number] [place] [address] 06173- 8555 Feb, Type 2 diabetes mellitus with diabetic polyneuropathy E11.42 ; Periodic limb movement sleep disorder G47.61 ; Hirsutism L68.0 ; Leukocytosis, unspecified type D72.829 and Postural dizziness R42 [facility] [id number] [place] [address] 84396- 6936 Dec, Onychomycosis B35.1 and Foot ulcer L97.509 [facility] [id number] [place] [address] 42312- 6219 Nov, [place] [id number] [place] [address] 38723- 5995 Nov, Preoperative cardiovascular examination Z01.810 ; Type 2 diabetes mellitus with diabetic polyneuropathy E11.42 and Essential hypertension I10 [facility] [id number] [place] [address] 76074- 4458 Oct, 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 ; Hammertoe M20.40 and DM neuro manif type II E11.49 [facility] [id number] [place] [address] 43523- 8315 Oct, Impingement syndrome of right shoulder M75.41 [place] [address] [place] [address]- 0095 Sep, [place] [id number] [place] [address] 32338- 8166 Sep, [place] [id number] [place] [address] 11581- 9074 Sep, Leukocytosis, unspecified elevated WBC count D72.829 [facility] [id number] [place] [address] 87467- 9530 Sep, Leukocytosis, unspecified elevated WBC count D72.829 [facility] [id number] [place] [address] 28217- 6483 Sep, [facility] [id number] [place] [address] 76601- 9766 Sep, [facility] [id number] [place] [address] 59556- 0200 Sep, [place] [id number] [place] [address] 69016- 0111 Sep, Periodic limb movement sleep disorder G47.61 ; Leukocytosis , unspecified elevated WBC count D72.829 and Mixed hyperlipidemia E78.2 [facility] [id number] [place] [address] 75056- 7988 Sep, Periodic limb movement sleep disorder G47.61 [facility] [id number] [place] [address] 81771- 8295 Aug, [place] [id number] [place] [address] 13482- 4065 Aug, Type 2 diabetes mellitus with diabetic polyneuropathy E11.42 ; 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 and Major depressive disorder , recurrent episode, mild F33.0 [place] [address], [place] [address]- 7291 Aug, Impingement syndrome of right shoulder M75.41 [facility] [place] [id number] [place] [address] 34091- 3277 Aug, Shortness of breath R06.02 [place] [address] 78968- 7612 Aug, [place] [address] 21424- 0970 Aug, 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 and Type II or unspecified type diabetes mellitus with neurological manifestations, not stated as uncontrolled E11.49 [place] [address] 63861- 1555 Aug, [place] [address] 78079- 2276 Jul, Presence of IVC filter Z95.828 [place] [address] 98377- 5580 Jul, Rotator cuff tear, right M75.101 [place] [address] 87067- 6532 Jul, [place] [address] 37791- 3912 Jul, [place] [id number] [place] [address] 30874- 0256 Jul, [place] [id number] [place] [address] 60080- 5882 Jun, Leukocytosis, unspecified elevated WBC count D72.829 and Mixed hyperlipidemia E78.2 [place] [id number] [place] [address] 70420- 2558 Jun, Type 2 diabetes mellitus with diabetic polyneuropathy E11.42 ; Hypothyroidism, unspecified hypothyroidism type E03.9 ; Elevated ALT measurement R74.0 ; Mixed hyperlipidemia E78.2 ; Primary insomnia F51.01 ; Seizure-like activity R56.9 ; Presence of IVC filter Z95.828 and Elevated liver enzymes R74.8 [place] [id number] [place] [address] 84130- 5777 Jun, [facility] [address] [place] [address] 50420- 4541 Jun, Hammertoe M20.40 and 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1 and Hypokalemia 276.8 [facility] [id number] [place] [address] 43488- 1488 22 May, 2015 Hypertension 401.9 ; Hirsutism 704.1 and Hypokalemia 276.8 [facility] [id number] [place] [address] 26911- 7038 17 May, 2015 Impingement syndrome of right shoulder 726.2 and SLAP lesion of right shoulder 840.7 [facility] [id number] [place] [address] 90692- 9689 May, [facility] [id number] [place] [address] 47149- 1993 Mar, Decreased sex drive 799.81 and Foot pain, bilateral 729.5 [facility] [id number] [place] [address] 19084- 4021 Mar, Impingement syndrome of right shoulder 726.2 [facility] [id number] [place] [address] 53668- 3117 13 Mar, [address] [place] [id number] [id number] [id number] 10 Mar, 2015 Dental examination V72.2 [facility] [id number] [address]- 7384 11 Feb, 2015 Subacromial bursitis 726.19 [facility] [id number] [address]- 9775 10 Feb, 2015 [facility] [address], [place] [address]- 9073 January, [facility] [id number] [address]- 8598 January, Muscle spasms of lower extremity 728.85 ; Diabetes mellitus , type II 250.00 ; Hypertension 401.9 ; Neuropathy 355.9 ; Hyperlipidemia LDL goal < 100 272.4 ; Hypothyroidism 244.9 ; Insomnia 780.52 ; History of Guillain- Dallas syndrome V12.49 ; Acid reflux disease 530.81 ; Presence of IVC filter V45.89 and Anxiety 300.00 IMMUNIZATIONS No Known Immunizations SOCIAL HISTORY Never Assessed REASON FOR VISIT PLAN OF CARE VITAL SIGNS MEDICATIONS Unknown [...]
--- OUTSIDE RECORDS SUMMARY | 2018-10-08 06:09 | XMS REPORT ---
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 Active 100300796526735 Problem Leukocytosis, unspecified type D72.829 Active 782106500 Problem Gastroesophageal reflux disease, esophagitis presence not specified K21.9 Active 247634467 Problem Morbid obesity due to excess calories E66.01 Active 880645788 Problem Non-pressure chronic ulcer of other part of left foot limited to breakdown of skin L97.521 Active 654750994 Problem Fatty liver K76.0 Active 826276201 Problem Tinnitus of both ears H93.13 Active 2005831561086 Problem Sensorineural hearing loss (SNHL) of both ears H90.3 Active 326693777 Problem Hirsutism L68.0 Active 475225606 Problem Hypothyroidism, unspecified hypothyroidism type E03.9 Active 43396068 Problem Essential hypertension I10 Active 23690757 Problem Type 2 diabetes mellitus with foot ulcer E11.621 Active 406480995944108 Problem Non-pressure chronic ulcer of other part of right foot limited to breakdown of skin L97.511 Active 329393850 Problem 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 Active 91794784 Problem Constipation by delayed colonic transit K59.01 Active 15611197 Problem Anxiety F41.9 Active 63711232 Problem Type 2 diabetes mellitus with diabetic polyneuropathy E11.42 Active 552331411 Problem Primary insomnia F51.01 Active 315607453 Problem Mixed hyperlipidemia E78.2 Active 894427039 Problem Elevated ALT measurement R74.0 Active 234924158 Problem DM neuro manif type II E11.49 Active 60598148 Problem 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 Active 525845813 Problem Type II or unspecified type diabetes mellitus with neurological manifestations, not stated as uncontrolled E11.49 Active 66441854 ALLERGIES No Information ENCOUNTERS Encounter Location Date Diagnosis [facility] [address] [address] 06 Mar, 2018 [facility] [address] [address] Feb, [facility] [address] [address] Feb, Dental examination Z01.20 [facility] [address] [address] Feb, [facility] [address] [address] Feb, Rib pain on left side R07.81 [facility] [address] [address] Feb, [facility] [address] [address]- [address] Feb, [facility] [id number] [place] [address] 71867- 3631 January, [facility] [id number] [place] [address] [phone] January, Dental examination Z01.20 [facility] [id number] [place] [address] [phone] January, Dental caries K02.9 [facility] [address] [address] January, Type 2 diabetes mellitus with foot ulcer E11.621 ; Flexion deformity of finger joint of left hand M21.242 ; Chronic cough R05 ; Tinnitus of both ears H93.13 ; Sensorineural hearing loss (SNHL) of both ears H90.3 and Leukocytosis, unspecified type D72.829 [place] [id number] [place] [address] 13501- 5391 January, [facility] [address] [place] [address] [phone] Dec, Dental examination Z01.20 [facility] [id number] [place] [address] 15345- 3603 Dec, Medicare annual wellness visit, initial Z00.00 ; DM neuro manif type II E11.49 ; Morbid obesity due to excess calories E66.01 ; Essential hypertension I10 ; Anxiety F41.9 ; 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 ; Encounter for immunization Z23 ; Cough R05 and 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 [place] [address] [address]- [address] 16 Dec, 2017 Cough R05 [place] [id number] [place] [address] 68059- 3983 15 Nov, 2017 [place] [id number] [place] [address] 98939- 0247 05 Nov, 2017 Screening for breast cancer Z12.31 [place] [id number] [place] [address] 98281- 2522 12 Oct, 2017 [place] [id number] [place] [address] 21073- 7714 Oct, [place] [id number] [place] [address] 37311- 1146 Oct, Type 2 diabetes mellitus with diabetic [...] foot limited to breakdown of skin L97.521 [facility] [id number] [place] [address] 99750- 1696 Sep, [facility] [id number] [place] [address] 45735- 5437 Sep, [facility] [id number] [place] [address] 42474- 2927 Aug, 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 [facility] [id number] [place] [address] 27242- 4666 Jul, [facility] [id number] [place] [address] 90279- 2701 May, Type 2 diabetes mellitus with diabetic polyneuropathy E11.42 [facility] [id number] [place] [address] 45522- 8624 May, [facility] [id number] [place] [address] 78181- 5557 May, [facility] [id number] [place] [address] 85478- 7032 Apr, Type 2 diabetes mellitus with diabetic polyneuropathy E11.42 and Morbid obesity due to excess calories E66.01 [facility] [address] [address] Apr, [facility] [id number] [place] [address] 20381- 0552 Apr, Type 2 diabetes mellitus with diabetic polyneuropathy E11.42 [facility] [address] [place] [address] 18858 -3241 Apr, [facility] [id number] [place] [address] 71292- 1338 Mar, [facility] [id number] [place] [address] 33655- 1578 Mar, [facility] [id number] [place] [address] 29251- 5058 Mar, [facility] [id number] [place] [address] 73635- 6119 Mar, Type 2 diabetes mellitus with diabetic polyneuropathy E11.42 [facility] [id number] [place] [address] 58611- 6453 Feb, [facility] [id number] [place] [address] 20644- 6548 Feb, [facility] [id number] [place] [address] 56844- 1773 Feb, Type 2 diabetes mellitus with diabetic polyneuropathy E11.42 ; Preoperative examination Z01.818 ; Wound, open, foot, left, initial encounter S91.302A ; Weight loss R63.4 and Tobacco abuse Z72.0 [facility] [id number] [place] [address] 46030- 1301 Nov, [facility] [id number] [place] [address] 25969- 4403 Nov, Pelvic pain R10.2 [facility] [id number] [place] [address] 60722- 0106 Nov, Morbid obesity due to excess calories E66.01 [facility] [id number] [place] [address] 91480- 9536 Nov, [facility] [id number] [place] [address] 21417- 3721 Nov, [facility] [id number] [place] [address] 93637- 5387 Nov, [facility] [id number] [place] [address] 59407- 6337 Nov, [facility] [id number] [place] [address] 67821- 9421 Oct, [facility] [id number] [place] [address] 33730- 7826 Oct, [place] [id number] [place] [address] 65653- 8024 Oct, Well woman exam Z01.419 ; Pelvic pain R10.2 and Type 2 diabetes mellitus with diabetic polyneuropathy E11.42 [place] [id number] [place] [address] 86186- 1779 Oct, 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 [place] [address] [address]- 5153 Sep, Essential hypertension I10 ; Mixed hyperlipidemia E78.2 ; Leukocytosis, unspecified type D72.829 and Morbid obesity due to excess calories E66.01 [place] [id number] [place] [address] 45356- 9644 Sep, [place] [id number] [place] [address] 92429- 6418 Aug, Hypothyroidism, unspecified hypothyroidism type E03.9 [place] [id number] [place] [address] 69446- 1508 Aug, Hirsutism L68.0 ; Primary insomnia F51.01 ; BMI 37.0-37.9, adult Z68.37 and Gastroesophageal reflux disease, esophagitis presence not specified K21.9 [place] [id number] [place] [address] 74448- 6510 Jul, [place] [id number] [place] [address] 45935- 4539 Jun, [place] [id number] [place] [address] 17093- 2394 Jun, [place] [id number] [place] [address] 67194- 0985 Jun, Hypothyroidism, unspecified hypothyroidism type E03.9 [place] [id number] [place] [address] 49951- 0589 Jun, Type 2 diabetes mellitus with diabetic polyneuropathy E11.42 ; Fatty liver K76.0 ; Leukocytosis, unspecified type D72.829 ; Morbid obesity due to excess calories E66.01 ; Hypotension due to drugs I95.2 ; Non- intractable vomiting with nausea, unspecified vomiting type R11.2 and Mixed hyperlipidemia E78.2 [place] [address] 51166- 1813 Jun, [place] [address] 55622- 4371 Apr, [place] [address] 96044- 2082 Apr, [place] [address] 83413- 6881 Mar, Eustachian tube dysfunction, bilateral H69.83 [place] [id number] [place] [address] 74375- 0195 Mar, [place] [id number] [place] [address] 16960- 4699 Feb, [place] [id number] [place] [address] 48786- 9568 Feb, Type 2 diabetes mellitus with diabetic polyneuropathy E11.42 ; Periodic limb movement sleep disorder G47.61 ; Hirsutism L68.0 ; Leukocytosis, unspecified type D72.829 and Postural dizziness R42 [place] [id number] [place] [address] 05597- 1391 Dec, Onychomycosis B35.1 and Foot ulcer L97.509 [place] [id number] [place] [address] 90609- 5279 Nov, [place] [id number] [place] [address] 91409- 3839 Nov, Preoperative cardiovascular examination Z01.810 ; Type 2 diabetes mellitus with diabetic polyneuropathy E11.42 and Essential hypertension I10 [place] [address] 65727- 6230 12 Oct, 2015 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 ; Hammertoe M20.40 and DM neuro manif type II E11.49 [place] [address] 22800- 1476 Oct, Impingement syndrome of right shoulder M75.41 [place] [id number] [place] [address] 09691- 3605 Sep, [place] [address] 63467- 5348 Sep, [place] [address] 13664- 5879 Sep, Leukocytosis, unspecified elevated WBC count D72.829 [place] [id number] [place] [address] 77227- 1829 Sep, Leukocytosis, unspecified elevated WBC count D72.829 [place] [id number] [place] [address] 60622- 2796 Sep, [place] [id number] [place] [address] 39203- 5414 Sep, [place] [id number] [place] [address] 01528- 9986 Sep, [place] [id number] [place] [address] 70827- 4212 Sep, Periodic limb movement sleep disorder G47.61 ; Leukocytosis , unspecified elevated WBC count D72.829 and Mixed hyperlipidemia E78.2 [place] [id number] [place] [address] 74103- 9482 Sep, Periodic limb movement sleep disorder G47.61 [place] [address] [place] [address] 8[address]- 2145 Aug, [place] [address] 86814- 3149 Aug, Type 2 diabetes mellitus with diabetic polyneuropathy E11.42 ; 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 and Major depressive disorder , recurrent episode, mild F33.0 [place] [address] 33937- 1024 Aug, Impingement syndrome of right shoulder M75.41 [place] [address] 64555- 0045 Aug, Shortness of breath R06.02 [place] [address] 89959- 5496 Aug, [place] [address] 43858- 5014 Aug, 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 and Type II or unspecified type diabetes mellitus with neurological manifestations, not stated as uncontrolled E11.49 [place] [address] 46702- 4682 Aug, [place] [address] 09544- 1167 Jul, Presence of IVC filter Z95.828 [place] [address] 52760- 5406 Jul, Rotator cuff tear, right M75.101 [place] [address] 71093- 0179 Jul, [place] [address] 90027- 4682 Jul, [facility] [address] 43225- 8612 Jul, [facility] [address] 22842- 0436 Jun, Leukocytosis, unspecified elevated WBC count D72.829 and Mixed hyperlipidemia E78.2 [place] [address] 97153- 5650 Jun, Type 2 diabetes mellitus with diabetic polyneuropathy E11.42 ; Hypothyroidism, unspecified hypothyroidism type E03.9 ; Elevated ALT measurement R74.0 ; Mixed hyperlipidemia E78.2 ; Primary insomnia F51.01 ; Seizure-like activity R56.9 ; Presence of IVC filter Z95.828 and Elevated liver enzymes R74.8 [place] [address] 95233- 8944 Jun, [place] [address] 68050- 6185 Jun, Hammertoe M20.40 and 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 [place] [address] 31981- 6049 Jun, Elevated liver enzymes R74.8 [place] [address] 07101- 5492 Jun, Elevated liver enzymes R74.8 [place] [address] 06827- 1954 May, Elevated liver enzymes R74.8 [place] [address] 94280- 0449 May, Hypertension 401.9 ; Hirsutism 704.1 and Hypokalemia 276.8 [place] [id number] [place] [address] 54210- 2718 22 May, 2015 Hypertension 401.9 ; Hirsutism 704.1 and Hypokalemia 276.8 [place] [address] 70918- 3719 17 May, 2015 Impingement syndrome of right shoulder 726.2 and SLAP lesion of right shoulder 840.7 [place] [address] [address]- 8855 May, [place] [id number] [place] [address] 10548- 3569 Mar, Decreased sex drive 799.81 and Foot pain, bilateral 729.5 [place] [id number] [place] [address] 70690- 3002 Mar, Impingement syndrome of right shoulder 726.2 [place] [id number] [place] [address] 52839- 8315 Mar, [facility] [address] [id number] Mar, Dental examination V72.2 [place] [address] 59105- 8172 11 Feb, 2015 Subacromial bursitis 726.[address] 34694- 1428 Feb, [place] [id number] [place] [address] 15800- 8977 January, [place] [id number] [place] [address] 89105- 3976 January, Muscle spasms of lower extremity 728.85 ; Diabetes mellitus , type II 250.00 ; Hypertension 401.9 ; Neuropathy 355.9 ; Hyperlipidemia LDL goal < 100 272.4 ; Hypothyroidism 244.9 ; Insomnia 780.52 ; History of Guillain- [place] syndrome V12.49 ; Acid reflux disease [...]
--- OUTSIDE RECORDS SUMMARY | 2018-10-08 06:09 | XMS REPORT ---
Author Author ASPENGEO SHULTZ Organization [facility] Address [address] [place] [address] Care Team Providers Care Oracle Drm Consultant Name Role Phone GEO LOUISE Unavailable PROBLEMS Type Condition ICD9-CM Code NGD98-FT Code Onset Dates Condition Status SNOMED Code Problem DM neuro manif type II E11.49 Active 04694967 Problem Leukocytosis, unspecified type D72.829 Active 714413492 Problem Periodic limb movement sleep disorder G47.61 Active 042423094 Problem Type 2 diabetes mellitus with foot ulcer E11.621 Active 831835423993310 Problem Gastroesophageal reflux disease, esophagitis presence not specified K21.9 Active 065456405 Problem Non-pressure chronic ulcer of other part of right foot limited to breakdown of skin L97.511 Active 454269373 Problem 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 Active 014136473544336 Problem Presence of IVC filter Z95.828 Active 888020921 Problem Fatty liver K76.0 Active 979135121 Problem Morbid obesity due to excess calories E66.01 Active 131380751 Problem Non-pressure chronic ulcer of other part of left foot limited to breakdown of skin L97.521 Active 151547275 Problem Constipation by delayed colonic transit K59.01 Active 40814559 Problem Hirsutism L68.0 Active 543218370 Problem Primary insomnia F51.01 Active 723333826 Problem Hypothyroidism, unspecified hypothyroidism type E03.9 Active 75283912 Problem Essential hypertension I10 Active 76072886 Problem Type 2 diabetes mellitus with diabetic polyneuropathy E11.42 Active 767243294 Problem 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 Active 115087823 Problem Chronic prescription benzodiazepine use Z79.899 Active 103804705 Problem Mixed hyperlipidemia E78.2 Active 036170891 Problem Type II or unspecified type diabetes mellitus with neurological manifestations, not stated as uncontrolled E11.49 Active 04472254 Problem Delayed gastric emptying K30 Active 025606139 Problem Anxiety F41.9 Active 07979668 Problem Elevated ALT measurement R74.0 Active 868286565 ALLERGIES No Information ENCOUNTERS Encounter Location Date Diagnosis [facility] [id number] [place] [address] 66172- 5418 January, [facility] [id number] [place] [address] 16056- 7112 Dec, Medicare annual wellness visit, initial Z00.00 [facility] [id number] [place] [address] 47054- 0733 15 Nov, 2017 [facility] [id number] [place] [address] 59759- 3088 05 Nov, 2017 Screening for breast cancer Z12.31 [facility] [id number] [place] [address] 85371- 5429 12 Oct, 2017 [facility] [id number] [place] [address] 63915- 2548 12 Oct, 2017 [facility] [id number] [place] [address] 73385- 3706 07 Oct, 2017 Type 2 diabetes mellitus [...] foot limited to breakdown of skin L97.521 [facility] [id number] [place] [address] 03578- 1995 Sep, [facility] [id number] [place] [address] 92587- 2531 Sep, [facility] [id number] [place] [address] 88579- 3721 Aug, 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 [facility] [address] [address] 2567 Jul, [facility] [id number] [place] [address] 37014- 3976 28 May, 2017 Type 2 diabetes mellitus with diabetic polyneuropathy E11.42 [facility] [address], [place] [address] 8901 18 May, 2017 [facility] [id number] [place] [address] 37253- 5438 15 May, 2017 [facility] [id number] [place] [address] 72059- 2198 Apr, Type 2 diabetes mellitus with diabetic polyneuropathy E11.42 and Morbid obesity due to excess calories E66.01 [facility] [address] [address] 7552 Apr, [facility] [id number] [place] [address] 85387- 6730 Apr, Type 2 diabetes mellitus with diabetic polyneuropathy E11.42 [facility] [id number] [place] [address] 21881 -2100 Apr, [facility] [id number] [place] [address] 45577- 1630 Mar, [facility] [id number] [place] [address] 80617- 4743 Mar, [facility] [address], [place] [address] 7929 Mar, [facility] [id number] [place] [address] 43978- 1536 Mar, Type 2 diabetes mellitus with diabetic polyneuropathy E11.42 [facility] [address], [place] [address] 6734 Feb, [facility] [id number] [place] [address] 62303- 0198 Feb, [facility] [address], [place] [address]- 9089 Feb, Type 2 diabetes mellitus with diabetic polyneuropathy E11.42 ; Preoperative examination Z01.818 ; Wound, open, foot, left, initial encounter S91.302A ; Weight loss R63.4 and Tobacco abuse Z72.0 [facility] [id number] [place] [address] 43265- 1282 Nov, [facility] [id number] [place] [address] 24853- 4112 Nov, Pelvic pain R10.2 [facility] [id number] [place] [address] 71681- 7818 Nov, Morbid obesity due to excess calories E66.01 [facility] [address], [place] [address]- 9734 Nov, [facility] [id number] [address] 5478 Nov, [facility] [id number] [place] [address] 83663- 8650 Nov, [facility] [address], [place] [address]- 9870 Nov, [facility] [address], [place] [address]- 3735 Oct, [facility] [address], [place] [address]- 8338 Oct, [facility] [address], [place] [address]- 6385 Oct, Well woman exam Z01.419 ; Pelvic pain R10.2 and Type 2 diabetes mellitus with diabetic polyneuropathy E11.42 [facility] [address], [place] [address]- 1139 Oct, 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 [facility] [id number] [place] [address] 07723- 7205 Sep, Essential hypertension I10 ; Mixed hyperlipidemia E78.2 ; Leukocytosis, unspecified type D72.829 and Morbid obesity due to excess calories E66.01 [facility] [id number] [place] [address] 84103- 2028 Sep, [facility] [address] 40048- 6443 Aug, Hypothyroidism, unspecified hypothyroidism type E03.9 [facility] [id number] [place] [address] 04653- 3402 Aug, Hirsutism L68.0 ; Primary insomnia F51.01 ; BMI 37.0-37.9, adult Z68.37 and Gastroesophageal reflux disease, esophagitis presence not specified K21.9 [facility] [id number] [place] [address] 16761- 7888 Jul, [facility] [id number] [place] [address] 92163- 6437 Jun, [facility] [id number] [place] [address] 43462- 2338 Jun, [facility] [id number] [place] [address] 66536- 9898 Jun, Hypothyroidism, unspecified hypothyroidism type E03.9 [facility] [id number] [place] [address] 25326- 5163 Jun, Type 2 diabetes mellitus with diabetic polyneuropathy E11.42 ; Fatty liver K76.0 ; Leukocytosis, unspecified type D72.829 ; Morbid obesity due to excess calories E66.01 ; Hypotension due to drugs I95.2 ; Non- intractable vomiting with nausea, unspecified vomiting type R11.2 and Mixed hyperlipidemia E78.2 [facility] [id number] [place] [address] 75778- 0784 Jun, [facility] [address], [place] [address]- 3304 Apr, [facility] [id number] [place] [address] 70632- 3159 Apr, [facility] [id number] [place] [address] 80437- 8684 Mar, Eustachian tube dysfunction, bilateral H69.83 [facility] [id number] [place] [address] 18749- 1724 Mar, [facility] [id number] [place] [address] 29381- 0480 Feb, [facility] [id number] [place] [address] 25456- 9192 Feb, Type 2 diabetes mellitus with diabetic polyneuropathy E11.42 ; Periodic limb movement sleep disorder G47.61 ; Hirsutism L68.0 ; Leukocytosis, unspecified type D72.829 and Postural dizziness R42 [facility] [id number] [place] [address] 43764- 7072 Dec, Onychomycosis B35.1 and Foot ulcer L97.509 [facility] [id number] [place] [address] 55094- 8836 Nov, [facility] [id number] [place] [address] 91365- 7313 Nov, Preoperative cardiovascular examination Z01.810 ; Type 2 diabetes mellitus with diabetic polyneuropathy E11.42 and Essential hypertension I10 [facility] [id number] [place] [address] 15440- 7835 Oct, 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 ; Hammertoe M20.40 and DM neuro manif type II E11.49 [facility] [id number] [place] [address] 70150- 1192 Oct, Impingement syndrome of right shoulder M75.41 [facility] [address] [place] [address]- 2961 Sep, [facility] [id number] [place] [address] 80211- 9577 Sep, [facility] [id number] [place] [address] 57661- 4690 Sep, Leukocytosis, unspecified elevated WBC count D72.829 [facility] [id number] [place] [address] 66504- 0401 Sep, Leukocytosis, unspecified elevated WBC count D72.829 [facility] [id number] [place] [address] 64984- 7437 Sep, [facility] [id number] [place] [address] 48400- 6886 Sep, [facility] [id number] [place] [address] 73626- 5549 Sep, [facility] [id number] [place] [address] 83933- 2909 Sep, Periodic limb movement sleep disorder G47.61 ; Leukocytosis , unspecified elevated WBC count D72.829 and Mixed hyperlipidemia E78.2 [facility] [id number] [place] [address] 81559- 0697 Sep, Periodic limb movement sleep disorder G47.61 [facility] [id number] [place] [address] 64151- 8111 Aug, [facility] [id number] [place] [address] 61067- 8385 Aug, Type 2 diabetes mellitus with diabetic polyneuropathy E11.42 ; 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 and Major depressive disorder , recurrent episode, mild F33.0 [facility] [address], [place] [address]- 7930 Aug, Impingement syndrome of right shoulder M75.41 [facility] [id number] [place] [address] 65818- 4729 Aug, Shortness of breath R06.02 [facility] [address] 01833- 6986 Aug, [facility] [address] 14965- 3713 Aug, 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 and Type II or unspecified type diabetes mellitus with neurological manifestations, not stated as uncontrolled E11.49 [facility] [address] 98114- 8255 Aug, [facility] [address] 70976- 6492 Jul, Presence of IVC filter Z95.828 [facility] [address] 63576- 3675 Jul, Rotator cuff tear, right M75.101 [facility] [address] 30578- 2287 Jul, [facility] [address] 63678- 0647 Jul, [facility] [id number] [place] [address] 31699- 9082 Jul, [facility] [id number] [place] [address] 95244- 3848 Jun, Leukocytosis, unspecified elevated WBC count D72.829 and Mixed hyperlipidemia E78.2 [facility] [id number] [place] [address] 87736- 3587 Jun, Type 2 diabetes mellitus with diabetic polyneuropathy E11.42 ; Hypothyroidism, unspecified hypothyroidism type E03.9 ; Elevated ALT measurement R74.0 ; Mixed hyperlipidemia E78.2 ; Primary insomnia F51.01 ; Seizure-like activity R56.9 ; Presence of IVC filter Z95.828 and Elevated liver enzymes R74.8 [facility] [id number] [place] [address] 91904- 0493 Jun, [facility] [id number] [place] [address] 62623- 6706 Jun, Hammertoe M20.40 and 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 [facility] [id number] [place] [address] 43882- 5224 Jun, Elevated liver enzymes R74.8 [facility] [id number] [place] [address] 30653- 0381 Jun, Elevated liver enzymes R74.8 [facility] [id number] [place] [address] 96508- 1697 30 May, 2015 Elevated liver enzymes R74.8 [facility] [id number] [place] [address] 64651- 7492 28 May, 2015 Hypertension 401.9 ; Hirsutism 704.1 and Hypokalemia 276.8 [facility] [id number] [place] [address] 12071- 9811 22 May, 2015 Hypertension 401.9 ; Hirsutism 704.1 and Hypokalemia 276.8 [facility] [id number] [place] [address] 13116- 7669 17 May, 2015 Impingement syndrome of right shoulder 726.2 and SLAP lesion of right shoulder 840.7 [facility] [id number] [place] [address] 22402- 0336 May, [facility] [id number] [place] [address] 48105- 3232 Mar, Decreased sex drive 799.81 and Foot pain, bilateral 729.5 [facility] [id number] [place] [address] 91257- 0341 Mar, Impingement syndrome of right shoulder 726.2 [facility] [id number] [place] [address] 70220- 3478 13 Mar, [address] [facility] [address] [id number] [id number] 10 Mar, 2015 Dental examination V72.2 [facility] [id number] [address]- 8041 11 Feb, 2015 Subacromial bursitis 726.19 [facility] [id number] [address]- 3193 Feb, [facility] [address], [place] [address]- 8959 January, [facility] [id number] [address]- 6433 January, Muscle spasms of lower extremity 728.85 ; Diabetes mellitus , type II 250.00 ; Hypertension 401.9 ; Neuropathy 355.9 ; Hyperlipidemia LDL goal < 100 272.4 ; Hypothyroidism 244.9 ; Insomnia 780.52 ; History of Guillain- Algona syndrome V12.49 ; Acid reflux disease 530.81 ; Presence of IVC filter V45.89 and Anxiety 300.00 IMMUNIZATIONS No Known Immunizations SOCIAL HISTORY Never Assessed REASON FOR VISIT Requesting medication PLAN OF CARE VITAL SIGNS MEDICATIONS Medication Instructions Dosage Frequency Start Date End Date Duration Status Victoza 18 MG/3ML Subcutaneous Once a day x1 week then increase to 1.2mg daily after that 0.6mg Mar, 30 day(s) Active RESULTS No Results PROCEDURES No Known [...]
[2018-10-08] MEDS: LACTATED RINGERS 1,000 ML IV PRN ×2 (06:10→06:42)
--- OUTSIDE RECORDS SUMMARY | 2018-10-08 06:10 | XMS REPORT ---
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 Active 425762752427410 Problem Leukocytosis, unspecified type D72.829 Active 573158482 Problem Gastroesophageal reflux disease, esophagitis presence not specified K21.9 Active 573892541 Problem Morbid obesity due to excess calories E66.01 Active 289941903 Problem Non-pressure chronic ulcer of other part of left foot limited to breakdown of skin L97.521 Active 988122074 Problem Fatty liver K76.0 Active 076765078 Problem Tinnitus of both ears H93.13 Active 7705193198714 Problem Sensorineural hearing loss (SNHL) of both ears H90.3 Active 296807332 Problem Hirsutism L68.0 Active 999122082 Problem Hypothyroidism, unspecified hypothyroidism type E03.9 Active 13201347 Problem Essential hypertension I10 Active 60102952 Problem Type 2 diabetes mellitus with foot ulcer E11.621 Active 385361213562163 Problem Non-pressure chronic ulcer of other part of right foot limited to breakdown of skin L97.511 Active 498332470 Problem 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 Active 30821761 Problem Constipation by delayed colonic transit K59.01 Active 01628527 Problem Anxiety F41.9 Active 46219761 Problem Type 2 diabetes mellitus with diabetic polyneuropathy E11.42 Active 882325987 Problem Primary insomnia F51.01 Active 797958380 Problem Mixed hyperlipidemia E78.2 Active 986999096 Problem Elevated ALT measurement R74.0 Active 034084433 Problem DM neuro manif type II E11.49 Active 81965269 Problem 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 Active 018524228 Problem Type II or unspecified type diabetes mellitus with neurological manifestations, not stated as uncontrolled E11.49 Active 64565363 ALLERGIES No Information ENCOUNTERS Encounter Location Date Diagnosis [facility] [address] [address] Mar, [facility] [address] [address] 12 Feb, 2018 [facility] [address] [address] Feb, Rib pain on left side R07.81 [facility] [address] [address] Feb, [facility] [address] [address] Feb, [facility] [address] [address] January, [facility] [address] [id number] January, Dental examination Z01.20 [facility] [address] [place] [id number] January, Dental caries K02.9 [facility] [address] [address] January, Type 2 diabetes mellitus with foot ulcer E11.621 ; Flexion deformity of finger joint of left hand M21.242 ; Chronic cough R05 ; Tinnitus of both ears H93.13 ; Sensorineural hearing loss (SNHL) of both ears H90.3 and Leukocytosis, unspecified type D72.829 [facility] [address] [address] January, [facility] [id number] [id number] Dec, Dental examination Z01.20 [facility] [id number] [place] [address]96- 3631 Dec, Medicare annual wellness visit, initial Z00.00 ; DM neuro manif type II E11.49 ; Morbid obesity due to excess calories E66.01 ; Essential hypertension I10 ; Anxiety F41.9 ; 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 ; Encounter for immunization Z23 ; Cough R05 and 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 [facility] [id number] [place] [address]323- 6578 16 Dec, 2017 Cough R05 [facility] [id number] [place] [address] 85230- 9445 15 Nov, 2017 [facility] [address] [address] 05 Nov, 2017 Screening for breast cancer Z12.31 [facility] [id number] [place] [address] 49338- 2655 12 Oct, 2017 [facility] [id number] [place] [address] 24512- 9283 Oct, [facility] [id number] [place] [address] 62506- 6901 Oct, Type 2 diabetes mellitus with diabetic [...] foot limited to breakdown of skin L97.521 [facility] [id number] [place] [address] 16008- 3640 Sep, [facility] [address] [address] Sep, [facility] [id number] [place] [address] 35847- 2582 Aug, 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 [facility] [id number] [place] [address] 83586- 2514 Jul, [facility] [id number] [place] [address] 58242- 2944 May, Type 2 diabetes mellitus with diabetic polyneuropathy E11.42 [facility] [id number] [place] [address] 76546- 1414 18 May, 2017 [facility] [id number] [place] [address] 07246- 1081 May, [facility] [id number] [place] [address] 60253- 2746 Apr, Type 2 diabetes mellitus with diabetic polyneuropathy E11.42 and Morbid obesity due to excess calories E66.01 [facility] [id number] [place] [address] 64922- 5124 Apr, [facility] [address] [place] [address] 26015- 4194 Apr, Type 2 diabetes mellitus with diabetic polyneuropathy E11.42 [facility] [address] [address] Apr, [facility] [address] [address] Mar, [facility] [id number] [place] [address] 36913- 1114 Mar, [facility] [address] [address] Mar, [facility] [id number] [place] [address] 20490- 6563 Mar, Type 2 diabetes mellitus with diabetic polyneuropathy E11.42 [facility] [id number] [place] [address] 55949- 7430 Feb, [facility] [id number] [place] [address] 45239- 6323 Feb, [facility] [id number] [place] [address] 68195- 7422 Feb, Type 2 diabetes mellitus with diabetic polyneuropathy E11.42 ; Preoperative examination Z01.818 ; Wound, open, foot, left, initial encounter S91.302A ; Weight loss R63.4 and Tobacco abuse Z72.0 [facility] [id number] [place] [address] 47398- 4469 Nov, [facility] [id number] [place] [address] 06974- 4943 Nov, Pelvic pain R10.2 [facility] [id number] [place] [address] 24110- 6030 Nov, Morbid obesity due to excess calories E66.01 [facility] [id number] [place] [address] 68978- 9867 Nov, [facility] [id number] [place] [address] 88012- 2393 Nov, [facility] [id number] [place] [address] 31350- 2752 Nov, [facility] [id number] [place] [address] 95599- 4284 Nov, [facility] [id number] [place] [address] 73845- 7838 Oct, [facility] [address] [address]90 Oct, [facility] [id number] [place] [address] 72625- 6570 Oct, Well woman exam Z01.419 ; Pelvic pain R10.2 and Type 2 diabetes mellitus with diabetic polyneuropathy E11.42 [facility] [id number] [place] [address] 22775- 7948 Oct, 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 [facility] [address] [address]- 2732 Sep, Essential hypertension I10 ; Mixed hyperlipidemia E78.2 ; Leukocytosis, unspecified type D72.829 and Morbid obesity due to excess calories E66.01 [place] [id number] [place] [address] 22828- 6961 Sep, [facility] [address] [address]39- [address] Aug, Hypothyroidism, unspecified hypothyroidism type E03.[address] [address]- [address] Aug, Hirsutism L68.0 ; Primary insomnia F51.01 ; BMI 37.0-37.9, adult Z68.37 and Gastroesophageal reflux disease, esophagitis presence not specified K21.9 [facility] [id number] [place] [address] 38302- 3040 Jul, [facility] [id number] [place] [address] 46966- 9662 Jun, [facility] [id number] [place] [address] 93752- 9561 Jun, [facility] [id number] [place] [address] 87935- 6361 Jun, Hypothyroidism, unspecified hypothyroidism type E03.9 [facility] [id number] [place] [address] 15193- 1943 Jun, Type 2 diabetes mellitus with diabetic polyneuropathy E11.42 ; Fatty liver K76.0 ; Leukocytosis, unspecified type D72.829 ; Morbid obesity due to excess calories E66.01 ; Hypotension due to drugs I95.2 ; Non- intractable vomiting with nausea, unspecified vomiting type R11.2 and Mixed hyperlipidemia E78.2 [facility] [id number] [place] [address] 38390- 8198 Jun, [facility] [id number] [place] [address] 17642- 8023 Apr, [facility] [address] [address]- 2871 Apr, [facility] [address] 12669- 4334 Mar, Eustachian tube dysfunction, bilateral H69.83 [facility] [address] 63335- 5705 Mar, [facility] [address] 45136- 4368 Feb, [facility] [id number] [place] [address] 14284- 1584 Feb, Type 2 diabetes mellitus with diabetic polyneuropathy E11.42 ; Periodic limb movement sleep disorder G47.61 ; Hirsutism L68.0 ; Leukocytosis, unspecified type D72.829 and Postural dizziness R42 [facility] [id number] [place] [address] 52668- 5749 Dec, Onychomycosis B35.1 and Foot ulcer L97.509 [facility] [id number] [place] [address] 60618- 3525 Nov, [place] [id number] [place] [address] 46811- 5045 Nov, Preoperative cardiovascular examination Z01.810 ; Type 2 diabetes mellitus with diabetic polyneuropathy E11.42 and Essential hypertension I10 [facility] [id number] [place] [address] 95663- 2940 Oct, 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 ; Hammertoe M20.40 and DM neuro manif type II E11.49 [facility] [id number] [place] [address] 14827- 1713 11 Oct, 2015 Impingement syndrome of right shoulder M75.41 [facility] [id number] [place] [address] 39373- 1826 Sep, [facility] [address] 37760- 1047 Sep, [facility] [id number] [place] [address] 46306- 0817 Sep, Leukocytosis, unspecified elevated WBC count D72.829 [facility] [id number] [place] [address] 54582- 1178 Sep, Leukocytosis, unspecified elevated WBC count D72.829 [facility] [id number] [place] [address] 87167- 8910 Sep, [facility] [id number] [place] [address] 66292- 0674 Sep, [place] [id number] [place] [address] 77734- 4103 Sep, [facility] [id number] [place] [address] 87615- 8997 Sep, Periodic limb movement sleep disorder G47.61 ; Leukocytosis , unspecified elevated WBC count D72.829 and Mixed hyperlipidemia E78.2 [facility] [facility] [id number] [place] [address] 67407- 4489 Sep, Periodic limb movement sleep disorder G47.61 [facility] [id number] [place] [address] 81187- 4218 Aug, [facility] [id number] [place] [address] 15132- 9227 Aug, Type 2 diabetes mellitus with diabetic polyneuropathy E11.42 ; 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 and Major depressive disorder , recurrent episode, mild F33.0 [facility] [id number] [place] [address] 76454- 9940 Aug, Impingement syndrome of right shoulder M75.41 [facility] [id number] [place] [address] 08197- 7176 Aug, Shortness of breath R06.02 [facility] [facility] [address] 23108- 8022 Aug, [facility] [address] 72159- 3174 Aug, 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 and Type II or unspecified type diabetes mellitus with neurological manifestations, not stated as uncontrolled E11.49 [place] [facility] [address] 51333- 7653 Aug, [facility] [facility] [address] [address]- 1968 Jul, Presence of IVC filter Z95.828 [place] [address] 6[address]- 1983 Jul, Rotator cuff tear, right M75.101 [facility] [id number] [place] [address] 06359- 7089 Jul, [place] [facility] [address] 93333- 2275 Jul, [facility] [id number] [place] [address] 49998- 7562 Jul, [facility] [facility] [address] 86104- 6767 Jun, Leukocytosis, unspecified elevated WBC count D72.829 and Mixed hyperlipidemia E78.2 [facility] [id number] [place] [address] 76663- 5408 Jun, Type 2 diabetes mellitus with diabetic polyneuropathy E11.42 ; Hypothyroidism, unspecified hypothyroidism type E03.9 ; Elevated ALT measurement R74.0 ; Mixed hyperlipidemia E78.2 ; Primary insomnia F51.01 ; Seizure-like activity R56.9 ; Presence of IVC filter Z95.828 and Elevated liver enzymes R74.8 [facility] [facility] [address] 61538- 0374 Jun, [place] [address] 26653- 4606 Jun, Hammertoe M20.40 and 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 [place] [address]22[address]- 2691 Jun, Elevated liver enzymes R74.8 [place] [facility] [address] 51341- 2442 Jun, Elevated liver enzymes R74.8 [place] [facility] [address] 40422- 7277 May, Elevated liver enzymes R74.8 [place] [facility] [address] 80829- 8032 May, Hypertension 401.9 ; Hirsutism 704.1 and Hypokalemia 276.[address] 85235- 2299 May, Hypertension 401.9 ; Hirsutism 704.1 and Hypokalemia 276.8 [place] [address] 38147- 6686 17 May, 2015 Impingement syndrome of right shoulder 726.2 and SLAP lesion of right shoulder 840.[address] 99556- 7359 May, [address] 28155- 5417 Mar, Decreased sex drive 799.81 and Foot pain, bilateral 729.[address] [id number] [address]- 2299 Mar, Impingement syndrome of right shoulder 726.2 [facility] [address] [address]- 0791 Mar, [facility] [id number] [id number] Mar, Dental examination V72.2 [facility] [address] [address]- 0618 Feb, Subacromial bursitis 726.19 [facility] [address] [place] [address] 60576- 6675 Feb, [facility] [address] [address]- 7065 January, [facility] [address] [place] [address] 07409- 6716 January, Muscle spasms of lower extremity 728.85 ; Diabetes mellitus , type II 250.00 ; Hypertension 401.9 ; Neuropathy 355.9 ; Hyperlipidemia LDL goal < 100 272.4 ; Hypothyroidism 244.9 ; Insomnia 780.52 ; History of Guillain- Belvedere Tiburon syndrome V12.49 ; Acid reflux disease 530.81 ; Presence of IVC filter V45.89 and Anxiety 300.00 IMMUNIZATIONS No Known Immunizations SOCIAL HISTORY Never Assessed REASON FOR VISIT Refill request PLAN OF CARE VITAL SIGNS MEDICATIONS [...]
--- OUTSIDE RECORDS SUMMARY | 2018-10-08 06:11 | XMS REPORT ---
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 Name Role Phone GEO LOUISE Unavailable PROBLEMS Type Condition ICD9-CM Code VNR55-VJ Code Onset Dates Condition Status SNOMED Code Problem DM neuro manif type II E11.49 Active 92594148 Problem Leukocytosis, unspecified type D72.829 Active 962765899 Problem Periodic limb movement sleep disorder G47.61 Active 493882045 Problem Type 2 diabetes mellitus with foot ulcer E11.621 Active 070440410373166 Problem Gastroesophageal reflux disease, esophagitis presence not specified K21.9 Active 508805317 Problem Non-pressure chronic ulcer of other part of right foot limited to breakdown of skin L97.511 Active 495924893 Problem 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 Active 343157333574923 Problem Presence of IVC filter Z95.828 Active 949020502 Problem Fatty liver K76.0 Active 451610016 Problem Morbid obesity due to excess calories E66.01 Active 763256670 Problem Non-pressure chronic ulcer of other part of left foot limited to breakdown of skin L97.521 Active 813619217 Problem Constipation by delayed colonic transit K59.01 Active 54241924 Problem Hirsutism L68.0 Active 575333366 Problem Primary insomnia F51.01 Active 166945514 Problem Hypothyroidism, unspecified hypothyroidism type E03.9 Active 16636131 Problem Essential hypertension I10 Active 10351488 Problem Type 2 diabetes mellitus with diabetic polyneuropathy E11.42 Active 189844865 Problem 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 Active 795199418 Problem Chronic prescription benzodiazepine use Z79.899 Active 295263237 Problem Mixed hyperlipidemia E78.2 Active 051318019 Problem Type II or unspecified type diabetes mellitus with neurological manifestations, not stated as uncontrolled E11.49 Active 09486999 Problem Delayed gastric emptying K30 Active 921163473 Problem Anxiety F41.9 Active 78290214 Problem Elevated ALT measurement R74.0 Active 753624704 ALLERGIES No Information ENCOUNTERS Encounter Location Date Diagnosis [place] [id number] [place] [address] 73548- 4307 Dec, Medicare annual wellness visit, initial Z00.00 [place] [id number] [place] [address] 24411- 7856 15 Nov, 2017 [place] [id number] [place] [address] 42464- 7951 05 Nov, 2017 Screening for breast cancer Z12.31 [place] [id number] [place] [address] 79941- 4767 12 Oct, 2017 [place] [id number] [place] [address] 98794- 7417 12 Oct, 2017 [place] [id number] [place] [address] 45954- 4353 07 Oct, 2017 Type 2 diabetes mellitus [...] foot limited to breakdown of skin L97.521 [place] [id number] [place] [address] 22613- 8141 Sep, [facility] [id number] [place] [address] 19730- 2150 Sep, [facility] [id number] [place] [address] 07659- 7424 Aug, 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 [facility] [id number] [place] [address] 75440- 8084 Jul, [facility] [place] [address] [address] May, Type 2 diabetes mellitus with diabetic polyneuropathy E11.42 [facility] [place] [address] [place] [address] 62[address] 18 May, 2017 [facility] [place] [address] [place] [address] May, [facility] [place] [address] [place] [address] 04[address] Apr, Type 2 diabetes mellitus with diabetic polyneuropathy E11.42 and Morbid obesity due to excess calories E66.01 [facility] [place] [address] [place] [address] 59[address] Apr, [facility] [place] [id number] [place] [address] 2212 Apr, Type 2 diabetes mellitus with diabetic polyneuropathy E11.42 [facility] [address] [place] [address] Apr, [facility] [place] [id number] [place] [address] 86581- 1989 Mar, [facility] [place] [address], [place] [address] 44[address] Mar, [facility] [place] [address] [place] [address] 9355 Mar, [facility] [place] [address] [address] 3181 Mar, Type 2 diabetes mellitus with diabetic polyneuropathy E11.42 [facility] [place] [address] [place] [address] 7159 Feb, [facility] [place] [address] [place] [address] 8934 Feb, [facility] [place] [id number] [place] [address] 99223- 2790 Feb, Type 2 diabetes mellitus with diabetic polyneuropathy E11.42 ; Preoperative examination Z01.818 ; Wound, open, foot, left, initial encounter S91.302A ; Weight loss R63.4 and Tobacco abuse Z72.0 [facility] [place] [id number] [place] [address] 34802- 5490 Nov, [facility] [place] [id number] [place] [address] 29271- 4434 Nov, Pelvic pain R10.2 [facility] [place] [id number] [place] [address] 61205- 4188 Nov, Morbid obesity due to excess calories E66.01 [facility] [place] [id number] [place] [address] 05845- 3747 Nov, [facility] [place] [id number] [place] [address] 59185- 7325 Nov, [facility] [place] [id number] [place] [address] 62715- 8958 Nov, [facility] [place] [id number] [place] [address] 19037- 8414 Nov, [facility] [place] [id number] [place] [address] 77166- 1571 Oct, [facility] [place] [id number] [place] [address] 81441- 0989 Oct, [facility] [place] [id number] [place] [address] 71067- 9392 Oct, Well woman exam Z01.419 ; Pelvic pain R10.2 and Type 2 diabetes mellitus with diabetic polyneuropathy E11.42 [facility] [place] [address] [place] [address] 06782- 8118 Oct, 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 [facility] [id number] [place] [address] 91562- 1329 Sep, Essential hypertension I10 ; Mixed hyperlipidemia E78.2 ; Leukocytosis, unspecified type D72.829 and Morbid obesity due to excess calories E66.01 [place] [address] 11095- 1335 Sep, [place] [address] 46889- 7983 Aug, Hypothyroidism, unspecified hypothyroidism type E03.9 [place] [address] 61188- 1054 Aug, Hirsutism L68.0 ; Primary insomnia F51.01 ; BMI 37.0-37.9, adult Z68.37 and Gastroesophageal reflux disease, esophagitis presence not specified K21.9 [place] [address] 43943- 0841 Jul, [place] [address] 19580- 5015 Jun, [place] [address] 93189- 3879 Jun, [place] [address] 77716- 6997 Jun, Hypothyroidism, unspecified hypothyroidism type E03.9 [place] [id number] [place] [address] 35639- 3707 Jun, Type 2 diabetes mellitus with diabetic polyneuropathy E11.42 ; Fatty liver K76.0 ; Leukocytosis, unspecified type D72.829 ; Morbid obesity due to excess calories E66.01 ; Hypotension due to drugs I95.2 ; Non- intractable vomiting with nausea, unspecified vomiting type R11.2 and Mixed hyperlipidemia E78.2 [place] [id number] [place] [address] 96141- 1139 Jun, [place] [address] 75857- 5765 Apr, [place] [id number] [place] [address] 27970- 8153 Apr, [place] [address] 72162- 7610 Mar, Eustachian tube dysfunction, bilateral H69.83 [place] [address] 33436- 0012 Mar, [place] [address] 58990- 5006 Feb, [place] [address] 27897- 4940 Feb, Type 2 diabetes mellitus with diabetic polyneuropathy E11.42 ; Periodic limb movement sleep disorder G47.61 ; Hirsutism L68.0 ; Leukocytosis, unspecified type D72.829 and Postural dizziness R42 [address] 55853- 4393 Dec, Onychomycosis B35.1 and Foot ulcer L97.509 [place] [address] 49713- 5880 Nov, [place] [address] 49970- 7700 Nov, Preoperative cardiovascular examination Z01.810 ; Type 2 diabetes mellitus with diabetic polyneuropathy E11.42 and Essential hypertension I10 [place] [address] 29470- 0128 Oct, 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 ; Hammertoe M20.40 and DM neuro manif type II E11.[address] 58606- 8139 Oct, Impingement syndrome of right shoulder M75.41 [place] [address] 69092- 9793 Sep, [place] [address] [place] [address]- 7284 Sep, [place] [id number] [place] [address] 78025- 0612 Sep, Leukocytosis, unspecified elevated WBC count D72.829 [place] [place] [id number] [place] [address] 37716- 6746 Sep, Leukocytosis, unspecified elevated WBC count D72.829 [place] [id number] [place] [address] 02043- 6286 Sep, [place] [place] [id number] [place] [address] 18389- 9351 Sep, [place] [id number] [place] [address] 64535- 2553 Sep, [place] [id number] [place] [address] 28375- 0543 Sep, Periodic limb movement sleep disorder G47.61 ; Leukocytosis , unspecified elevated WBC count D72.829 and Mixed hyperlipidemia E78.2 [place] [id number] [place] [address] 36398- 3281 Sep, Periodic limb movement sleep disorder G47.61 [place] [place] [id number] [place] [address] 00059- 8568 Aug, [place] [id number] [place] [address] 61311- 5444 Aug, Type 2 diabetes mellitus with diabetic polyneuropathy E11.42 ; 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 and Major depressive disorder , recurrent episode, mild F33.0 [place] [id number] [place] [address] 73606- 9909 Aug, Impingement syndrome of right shoulder M75.41 [place] [address] [place] [address] 77004- 4160 Aug, Shortness of breath R06.02 [place] [id number] [place] [address] 30922- 7832 Aug, [place] [address] 52066- 1673 Aug, 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 and Type II or unspecified type diabetes mellitus with neurological manifestations, not stated as uncontrolled E11.49 [place] [address] 90576- 7331 Aug, [place] [address] 74251- 8654 Jul, Presence of IVC filter Z95.[address] 39082- 5264 Jul, Rotator cuff tear, right M75.[address] 98552- 6300 Jul, [place] [address] 95442- 3582 Jul, [place] [address] 50182- 3671 Jul, [place] [address] 15090- 1110 Jun, Leukocytosis, unspecified elevated WBC count D72.829 and Mixed hyperlipidemia E78.[address] 06416- 1017 Jun, Type 2 diabetes mellitus with diabetic polyneuropathy E11.42 ; Hypothyroidism, unspecified hypothyroidism type E03.9 ; Elevated ALT measurement R74.0 ; Mixed hyperlipidemia E78.2 ; Primary insomnia F51.01 ; Seizure-like activity R56.9 ; Presence of IVC filter Z95.828 and Elevated liver enzymes R74.8 [place] [id number] [place] [address] 10648- 0123 Jun, [place] [address] 24272- 4987 Jun, Hammertoe M20.40 and 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 [place] [place] [id number] [place] [address] 12335- 2123 Jun, Elevated liver enzymes R74.8 [facility] [id number] [place] [address] 48647- 8874 Jun, Elevated liver enzymes R74.8 [facility] [place] [id number] [place] [address] 14968- 4805 30 May, 2015 Elevated liver enzymes R74.8 [place] [id number] [place] [address] 16900- 8049 28 May, 2015 Hypertension 401.9 ; Hirsutism 704.1 and Hypokalemia 276.8 [place] [id number] [place] [address] 73938- 3659 May, Hypertension 401.9 ; Hirsutism 704.1 and Hypokalemia 276.8 [facility] [place] [id number] [place] [address] 33898- 5002 17 May, 2015 Impingement syndrome of right shoulder 726.2 and SLAP lesion of right shoulder 840.7 [place] [id number] [place] [address] 97243- 0011 May, [place] [id number] [place] [address] 12970- 2568 Mar, Decreased sex drive 799.81 and Foot pain, bilateral 729.5 [facility] [id number] [place] [address] 31180- 0794 Mar, Impingement syndrome of right shoulder 726.2 [facility] [place] [id number] [place] [address] 60879- 6182 13 Mar, 2015 [facility] [id number] [place] [address] [id number] 10 Mar, 2015 Dental examination V72.2 [facility] [address] [facility] [id number] [address]- 2582 Feb, Subacromial bursitis 726.19 [facility] [place] [id number] [place] [address]- 6795 Feb, [facility] [place] [id number] [place] [address]- 6787 January, [facility] [place] [address] [facility] [id number] [address]- 4849 January, Muscle spasms of lower extremity 728.85 ; Diabetes mellitus , type II 250.00 ; Hypertension 401.9 ; Neuropathy 355.9 ; Hyperlipidemia LDL goal < 100 272.4 ; Hypothyroidism 244.9 ; Insomnia 780.52 ; History of Guillain- [place] syndrome V12.49 ; Acid reflux disease 530.81 ; Presence of IVC filter V45.89 and Anxiety 300.00 IMMUNIZATIONS No Known Immunizations SOCIAL HISTORY Never Assessed REASON FOR VISIT Referral PLAN OF CARE VITAL SIGNS MEDICATIONS Unknown [...]
--- OUTSIDE RECORDS SUMMARY | 2018-10-08 06:12 | XMS REPORT ---
Author Author ASPENGEO SHULTZ Organization [facility] Address [address] [place] [address] Care Team Providers Care Reimbursement Liaison Name Role Phone GEO LOUISE Unavailable PROBLEMS Type Condition ICD9-CM Code ZOE35-FF Code Onset Dates Condition Status SNOMED Code Problem DM neuro manif type II E11.49 Active 14069552 Problem Leukocytosis, unspecified type D72.829 Active 638485988 Problem Periodic limb movement sleep disorder G47.61 Active 786217636 Problem Type 2 diabetes mellitus with foot ulcer E11.621 Active 677600729732798 Problem Gastroesophageal reflux disease, esophagitis presence not specified K21.9 Active 341937787 Problem Non-pressure chronic ulcer of other part of right foot limited to breakdown of skin L97.511 Active 593863055 Problem 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 Active 266853002939286 Problem Presence of IVC filter Z95.828 Active 334244063 Problem Fatty liver K76.0 Active 427513591 Problem Morbid obesity due to excess calories E66.01 Active 507783168 Problem Non-pressure chronic ulcer of other part of left foot limited to breakdown of skin L97.521 Active 086914768 Problem Constipation by delayed colonic transit K59.01 Active 32140499 Problem Hirsutism L68.0 Active 981826748 Problem Primary insomnia F51.01 Active 325616973 Problem Hypothyroidism, unspecified hypothyroidism type E03.9 Active 16789215 Problem Essential hypertension I10 Active 66478754 Problem Type 2 diabetes mellitus with diabetic polyneuropathy E11.42 Active 809576014 Problem 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 Active 806033077 Problem Chronic prescription benzodiazepine use Z79.899 Active 476389384 Problem Mixed hyperlipidemia E78.2 Active 733611986 Problem Type II or unspecified type diabetes mellitus with neurological manifestations, not stated as uncontrolled E11.49 Active 78567166 Problem Delayed gastric emptying K30 Active 220389911 Problem Anxiety F41.9 Active 41378840 Problem Elevated ALT measurement R74.0 Active 889694782 ALLERGIES No Information ENCOUNTERS Encounter Location Date Diagnosis [facility] [id number] [place] [address]2092- 1997 January, [facility] [id number] [place] [address] 75253- 2744 Dec, Medicare annual wellness visit, initial Z00.00 ; DM neuro manif type II E11.49 ; Morbid obesity due to excess calories E66.01 ; Essential hypertension I10 and Anxiety F41.9 [facility] [id number] [place] [address] 05947- 5870 16 Dec, 2017 Cough R05 [facility] [address] 67947- 9698 15 Nov, 2017 [place] [address] 77703- 8340 05 Nov, 2017 Screening for breast cancer Z12.31 [facility] [id number] [place] [address] 85440- 1088 12 Oct, 2017 [facility] [facility] [id number] [place] [address] 62509- 8951 12 Oct, 2017 [facility] [facility] [id number] [place] [address] 19616- 8911 07 Oct, 2017 Type 2 diabetes mellitus [...] to breakdown of skin L97.521 [facility] [id number] [place] [address] 39984- 5871 Sep, [facility] [address] [address] Sep, [facility] [id number] [place] [address] 27493- 4831 Aug, 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 [facility] [id number] [place] [address] 60320- 3901 Jul, [facility] [id number] [place] [address] 88142- 9319 May, Type 2 diabetes mellitus with diabetic polyneuropathy E11.42 [facility] [id number] [place] [address] 55667- 7425 May, [facility] [id number] [place] [address] 08376- 4016 May, [facility] [id number] [place] [address] 66309- 4744 Apr, Type 2 diabetes mellitus with diabetic polyneuropathy E11.42 and Morbid obesity due to excess calories E66.01 [facility] [address] [address] 0[address] Apr, [facility] [id number] [address] 7639 Apr, Type 2 diabetes mellitus with diabetic polyneuropathy E11.42 [facility] [address] [address] Apr, [facility] [address] [address] 7477 Mar, [facility] [id number] [address] 3141 Mar, [facility] [address] [address] 3120 Mar, [facility] [address] [address] 7122 Mar, Type 2 diabetes mellitus with diabetic polyneuropathy E11.42 [facility] [address] [address] 9[address] Feb, [facility] [id number] [place] [address] 71300- 1267 Feb, [facility] [id number] [place] [address] 61371- 8640 Feb, Type 2 diabetes mellitus with diabetic polyneuropathy E11.42 ; Preoperative examination Z01.818 ; Wound, open, foot, left, initial encounter S91.302A ; Weight loss R63.4 and Tobacco abuse Z72.0 [facility] [id number] [place] [address] 80666- 7336 Nov, [facility] [id number] [place] [address] 59494- 3511 Nov, Pelvic pain R10.2 [facility] [id number] [place] [address] 15125- 9899 Nov, Morbid obesity due to excess calories E66.01 [facility] [id number] [place] [address] 12385- 9226 Nov, [facility] [id number] [place] [address] 89202- 0017 Nov, [facility] [id number] [place] [address] 21725- 2391 Nov, [facility] [id number] [place] [address] 07926- 7143 Nov, [facility] [id number] [place] [address] 18770- 7071 Oct, [facility] [id number] [place] [address] 40223- 9290 Oct, [facility] [id number] [place] [address] 12801- 4913 Oct, Well woman exam Z01.419 ; Pelvic pain R10.2 and Type 2 diabetes mellitus with diabetic polyneuropathy E11.42 [facility] [facility] [address] 61940- 3421 Oct, 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 [facility] [address] 53689- 7888 Sep, Essential hypertension I10 ; Mixed hyperlipidemia E78.2 ; Leukocytosis, unspecified type D72.829 and Morbid obesity due to excess calories E66.01 [facility] [facility] [id number] [place] [address] 76137- 6824 Sep, [facility] [address] 07551- 5848 Aug, Hypothyroidism, unspecified hypothyroidism type E03.9 [facility] [facility] [address] 23461- 0925 Aug, Hirsutism L68.0 ; Primary insomnia F51.01 ; BMI 37.0-37.9, adult Z68.37 and Gastroesophageal reflux disease, esophagitis presence not specified K21.9 [facility] [id number] [place] [address] 76623- 0304 Jul, [facility] [id number] [place] [address] 27238- 6071 Jun, [facility] [id number] [place] [address] 13643- 6204 Jun, [facility] [id number] [place] [address] 34426- 4344 Jun, Hypothyroidism, unspecified hypothyroidism type E03.9 [facility] [id number] [place] [address] 69158- 9740 Jun, Type 2 diabetes mellitus with diabetic polyneuropathy E11.42 ; Fatty liver K76.0 ; Leukocytosis, unspecified type D72.829 ; Morbid obesity due to excess calories E66.01 ; Hypotension due to drugs I95.2 ; Non- intractable vomiting with nausea, unspecified vomiting type R11.2 and Mixed hyperlipidemia E78.2 [facility] [address] 96944- 3712 Jun, [facility] [id number] [place] [address] 65795- 8344 Apr, [facility] [facility] [address] 65390- 8975 Apr, [facility] [facility] [address] 56875- 1709 Mar, Eustachian tube dysfunction, bilateral H69.83 [facility] [address] 12740- 8366 Mar, [facility] [address] 93020- 7532 Feb, [facility] [address] 50937- 9109 Feb, Type 2 diabetes mellitus with diabetic polyneuropathy E11.42 ; Periodic limb movement sleep disorder G47.61 ; Hirsutism L68.0 ; Leukocytosis, unspecified type D72.829 and Postural dizziness R42 [facility] [id number] [place] [address] 64099- 3694 Dec, Onychomycosis B35.1 and Foot ulcer L97.509 [facility] [facility] [address] 37140- 5677 Nov, [facility] [facility] [address] 88457- 9383 Nov, Preoperative cardiovascular examination Z01.810 ; Type 2 diabetes mellitus with diabetic polyneuropathy E11.42 and Essential hypertension I10 [place] [id number] [place] [address] 23486- 3578 Oct, 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 ; Hammertoe M20.40 and DM neuro manif type II E11.49 [facility] [id number] [place] [address] 34794- 6995 Oct, Impingement syndrome of right shoulder M75.41 [facility] [id number] [place] [address] 94645- 4677 Sep, [facility] [place] [id number] [place] [address] 82810- 6367 Sep, [facility] [place] [id number] [place] [address] 99531- 3181 Sep, Leukocytosis, unspecified elevated WBC count D72.829 [facility] [place] [id number] [place] [address] 92208- 8791 Sep, Leukocytosis, unspecified elevated WBC count D72.829 [facility] [place] [id number] [place] [address] 89970- 4404 Sep, [facility] [id number] [place] [address] 48210- 9628 Sep, [facility] [id number] [place] [address] 27803- 0106 Sep, [facility] [id number] [place] [address] 41551- 3395 Sep, Periodic limb movement sleep disorder G47.61 ; Leukocytosis , unspecified elevated WBC count D72.829 and Mixed hyperlipidemia E78.2 [facility] [place] [id number] [place] [address] 84679- 4130 Sep, Periodic limb movement sleep disorder G47.61 [facility] [place] [id number] [place] [address] 97669- 9625 Aug, [facility] [place] [id number] [place] [address] 05870- 6116 Aug, Type 2 diabetes mellitus with diabetic polyneuropathy E11.42 ; 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 and Major depressive disorder , recurrent episode, mild F33.0 [place] [id number] [place] [address] 07317- 8603 Aug, Impingement syndrome of right shoulder M75.41 [facility] [place] [id number] [place] [address] 79684- 6008 Aug, Shortness of breath R06.02 [facility] [facility] [address] 67530- 1930 Aug, [facility] [address] 70321- 7456 Aug, 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 and Type II or unspecified type diabetes mellitus with neurological manifestations, not stated as uncontrolled E11.49 [place] [address] 58215- 0598 Aug, [place] [address] 71189- 1987 Jul, Presence of IVC filter Z95.828 [facility] [address] 62857- 4335 Jul, Rotator cuff tear, right M75.101 [facility] [id number] [place] [address] 27548- 1981 Jul, [facility] [facility] [address] 89032- 0219 Jul, [facility] [place] [id number] [place] [address] 55237- 3302 Jul, [facility] [place] [id number] [place] [address] 13253- 6689 Jun, Leukocytosis, unspecified elevated WBC count D72.829 and Mixed hyperlipidemia E78.2 [place] [id number] [place] [address] 78235- 6749 Jun, Type 2 diabetes mellitus with diabetic polyneuropathy E11.42 ; Hypothyroidism, unspecified hypothyroidism type E03.9 ; Elevated ALT measurement R74.0 ; Mixed hyperlipidemia E78.2 ; Primary insomnia F51.01 ; Seizure-like activity R56.9 ; Presence of IVC filter Z95.828 and Elevated liver enzymes R74.8 [place] [address] 00445- 2236 Jun, [place] [address] 84044- 5106 Jun, Hammertoe M20.40 and 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 [facility] [address] 00223- 0357 Jun, Elevated liver enzymes R74.8 [place] [address] 04279- 2673 Jun, Elevated liver enzymes R74.8 [place] [address] 49264- 8779 May, Elevated liver enzymes R74.8 [facility] [address] 13937- 5688 May, Hypertension 401.9 ; Hirsutism 704.1 and Hypokalemia 276.[address] 32894- 6573 May, Hypertension 401.9 ; Hirsutism 704.1 and Hypokalemia 276.8 [place] [address] 97299- 8767 17 May, 2015 Impingement syndrome of right shoulder 726.2 and SLAP lesion of right shoulder 840.[address] 78043- 6519 May, [address] 99744- 9064 Mar, Decreased sex drive 799.81 and Foot pain, bilateral 729.[address] [place] [address]- 1735 Mar, Impingement syndrome of right shoulder 726.2 [facility] [address] [address]- 5511 Mar, [facility] [address] [address] Mar, Dental examination V72.2 [facility] [id number] [place] [address] 16600- 8873 11 Feb, 2015 Subacromial bursitis 726.19 [facility] [id number] [place] [address] 17349- 8622 Feb, [facility] [id number] [place] [address] 68213- 8058 January, [facility] [id number] [place] [address] 35583- 4850 January, Muscle spasms of lower extremity 728.85 ; Diabetes mellitus , type II 250.00 ; Hypertension 401.9 ; Neuropathy 355.9 ; Hyperlipidemia LDL goal < 100 272.4 ; Hypothyroidism 244.9 ; Insomnia 780.52 ; 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
--- OUTSIDE RECORDS SUMMARY | 2018-10-08 06:13 | XMS REPORT ---
Author Author ASPEN GEO Organization [facility] Address [address] [place] [address] Care Team Providers Care Redevelopment Specialist Name Role Phone GEO LOUISE Unavailable PROBLEMS Type Condition ICD9-CM Code ENT06-BY Code Onset Dates Condition Status SNOMED Code Problem Chronic prescription benzodiazepine use Z79.899 Active 400283853 Problem Elevated ALT measurement R74.0 Active 982774654 Problem Delayed gastric emptying K30 Active 555069052 Problem DM neuro manif type II E11.49 Active 03102923 Problem Presence of IVC filter Z95.828 Active 626980900 Problem Periodic limb movement sleep disorder G47.61 Active 760003220 Problem Morbid obesity due to excess calories E66.01 Active 315190939 Problem Leukocytosis, unspecified type D72.829 Active 247637110 Problem 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 Active 06936366 Problem Type 2 diabetes mellitus with foot ulcer E11.621 Active 665986730998323 Problem Hypothyroidism, unspecified hypothyroidism type E03.9 Active 22281465 Problem Gastroesophageal reflux disease, esophagitis presence not specified K21.9 Active 859388284 Problem 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 Active 105490512335448 Problem Constipation by delayed colonic transit K59.01 Active 78739304 Problem Fatty liver K76.0 Active 346824666 Problem Non-pressure chronic ulcer of other part of right foot limited to breakdown of skin L97.511 Active 341611636 Problem Non-pressure chronic ulcer of other part of left foot limited to breakdown of skin L97.521 Active 192142339 Problem Primary insomnia F51.01 Active 494870183 Problem Mixed hyperlipidemia E78.2 Active 881007014 Problem Essential hypertension I10 Active 30072480 Problem Hirsutism L68.0 Active 495749852 Problem 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 Active 270989170 Problem Type II or unspecified type diabetes mellitus with neurological manifestations, not stated as uncontrolled E11.49 Active 49644850 Problem Anxiety F41.9 Active 23325644 Problem Type 2 diabetes mellitus with diabetic polyneuropathy E11.42 Active 624655382 ALLERGIES No Information ENCOUNTERS Encounter Location Date Diagnosis [place] [id number] [place] [address] 32388- 6594 30 Jan, 2018 [place] [address] [address]- [address] January, [facility] [id number] [place] [address] [id number] Dec, Dental examination Z01.20 [place] [address] 69864- 2800 Dec, Medicare annual wellness visit, initial Z00.00 ; DM neuro manif type II E11.49 ; Morbid obesity due to excess calories E66.01 ; Essential hypertension I10 ; Anxiety F41.9 ; 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 ; Encounter for immunization Z23 and Cough R05 [place] [id number] [place] [address] 47468- 4006 Dec, Cough R05 [place] [id number] [place] [address] 30699- 0738 15 Nov, 2017 [place] [id number] [place] [address] 48401- 1669 05 Nov, 2017 Screening for breast cancer Z12.31 [place] [id number] [place] [address] 15749- 7828 12 Oct, 2017 [place] [id number] [place] [address] 57022- 6728 Oct, [place] [id number] [place] [address] 19106- 6970 07 Oct, 2017 Type 2 diabetes mellitus [...] foot limited to breakdown of skin L97.521 [facility] [id number] [place] [address] 98970- 8601 Sep, [facility] [id number] [place] [address] 14974- 2836 Sep, [place] [id number] [place] [address] 14142- 8224 Aug, 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 [place] [id number] [place] [address] 72027- 2407 Jul, [facility] [id number] [place] [address] 19600- 7557 May, Type 2 diabetes mellitus with diabetic polyneuropathy E11.42 [facility] [id number] [place] [address] 00612- 1332 May, [place] [id number] [place] [address] 97615- 0641 May, [place] [id number] [place] [address] 02222- 5013 Apr, Type 2 diabetes mellitus with diabetic polyneuropathy E11.42 and Morbid obesity due to excess calories E66.01 [facility] [id number] [place] [address] 08469- 5069 Apr, [facility] [id number] [place] [address] 27851- 7735 Apr, Type 2 diabetes mellitus with diabetic polyneuropathy E11.42 [facility] [id number] [place] [address] 01755 -1432 Apr, [facility] [address] [address] 4158 Mar, [facility] [id number] [place] [address] 26917- 9617 Mar, [facility] [id number] [address] 8841 Mar, [facility] [id number] [place] [address] 04805- 4562 Mar, Type 2 diabetes mellitus with diabetic polyneuropathy E11.42 [facility] [id number] [place] [address] 78781- 1187 Feb, [facility] [id number] [place] [address] 10190- 6941 Feb, [facility] [id number] [place] [address] 95641- 3045 Feb, Type 2 diabetes mellitus with diabetic polyneuropathy E11.42 ; Preoperative examination Z01.818 ; Wound, open, foot, left, initial encounter S91.302A ; Weight loss R63.4 and Tobacco abuse Z72.0 [facility] [id number] [place] [address] 11616- 0462 Nov, [facility] [address] [address] 2549 Nov, Pelvic pain R10.2 [facility] [id number] [place] [address] 35562- 0641 Nov, Morbid obesity due to excess calories E66.01 [facility] [id number] [address]- 4565 Nov, [facility] [id number] [place] [address] 49245- 2797 Nov, [facility] [address] [address]- 6858 Nov, [facility] [id number] [place] [address] 28980- 5853 Nov, [facility] [id number] [place] [address] 33683- 2908 Oct, [facility] [id number] [place] [address] 81674- 6341 Oct, [facility] [address] 45276- 5080 Oct, Well woman exam Z01.419 ; Pelvic pain R10.2 and Type 2 diabetes mellitus with diabetic polyneuropathy E11.42 [place] [address] 04827- 2465 Oct, 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 [place] [address] 99255- 3274 Sep, Essential hypertension I10 ; Mixed hyperlipidemia E78.2 ; Leukocytosis, unspecified type D72.829 and Morbid obesity due to excess calories E66.01 [place] [id number] [place] [address] 21165- 2466 Sep, [place] [address] 20648- 9645 Aug, Hypothyroidism, unspecified hypothyroidism type E03.9 [place] [id number] [place] [address] 74703- 0302 Aug, Hirsutism L68.0 ; Primary insomnia F51.01 ; BMI 37.0-37.9, adult Z68.37 and Gastroesophageal reflux disease, esophagitis presence not specified K21.9 [facility] [address] 06827- 6335 Jul, [facility] [address] 98110- 1337 Jun, [facility] [address] 14238- 8798 Jun, [place] [id number] [place] [address] 29705- 9170 Jun, Hypothyroidism, unspecified hypothyroidism type E03.9 [place] [id number] [place] [address] 14462- 6119 Jun, Type 2 diabetes mellitus with diabetic polyneuropathy E11.42 ; Fatty liver K76.0 ; Leukocytosis, unspecified type D72.829 ; Morbid obesity due to excess calories E66.01 ; Hypotension due to drugs I95.2 ; Non- intractable vomiting with nausea, unspecified vomiting type R11.2 and Mixed hyperlipidemia E78.2 [place] [address] 78048- 8604 Jun, [place] [address] 28319- 3723 Apr, [place] [address] 93244- 4758 Apr, [place] [address] 19794- 0750 Mar, Eustachian tube dysfunction, bilateral H69.83 [place] [address] 79377- 7990 Mar, [place] [address] 75147- 2656 Feb, [place] [address] 14990- 1586 Feb, Type 2 diabetes mellitus with diabetic polyneuropathy E11.42 ; Periodic limb movement sleep disorder G47.61 ; Hirsutism L68.0 ; Leukocytosis, unspecified type D72.829 and Postural dizziness R42 [place] [id number] [place] [address] 45205- 4276 Dec, Onychomycosis B35.1 and Foot ulcer L97.[address] 07752- 3949 Nov, [place] [id number] [place] [address] 93873- 9079 Nov, Preoperative cardiovascular examination Z01.810 ; Type 2 diabetes mellitus with diabetic polyneuropathy E11.42 and Essential hypertension I10 [place] [id number] [place] [address] 44148- 1844 Oct, 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 ; Hammertoe M20.40 and DM neuro manif type II E11.49 [place] [id number] [place] [address] 28883- 2139 Oct, Impingement syndrome of right shoulder M75.41 [place] [id number] [place] [address] 88415- 9977 Sep, [place] [id number] [place] [address] 78664- 7256 Sep, [place] [id number] [place] [address] 88437- 9748 Sep, Leukocytosis, unspecified elevated WBC count D72.829 [place] [id number] [place] [address] 92481- 6050 Sep, Leukocytosis, unspecified elevated WBC count D72.829 [place] [id number] [place] [address] 86822- 8939 Sep, [place] [id number] [place] [address] 22780- 1466 Sep, [place] [id number] [place] [address] 90804- 9422 Sep, [place] [id number] [place] [address] 48883- 2205 Sep, Periodic limb movement sleep disorder G47.61 ; Leukocytosis , unspecified elevated WBC count D72.829 and Mixed hyperlipidemia E78.2 [place] [address] [place] [address] 36393- 9992 Sep, Periodic limb movement sleep disorder G47.61 [place] [address] 23913- 4179 Aug, [place] [address] 98314- 6030 Aug, Type 2 diabetes mellitus with diabetic polyneuropathy E11.42 ; 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 and Major depressive disorder , recurrent episode, mild F33.0 [place] [address] 32478- 6572 Aug, Impingement syndrome of right shoulder M75.41 [place] [address] 35236- 9029 Aug, Shortness of breath R06.[address] 44009- 9003 Aug, [place] [address] 68811- 6364 Aug, 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 and Type II or unspecified type diabetes mellitus with neurological manifestations, not stated as uncontrolled E11.49 [place] [address] 00114- 4603 Aug, [place] [address] 97421- 2472 Jul, Presence of IVC filter Z95.828 [place] [address] 50463- 1678 Jul, Rotator cuff tear, right M75.101 [place] [address] 37412- 5968 Jul, [place] [address] 31235- 9065 Jul, [place] [address] 98215- 3327 Jul, [place] [id number] [place] [address] 20889- 4285 Jun, Leukocytosis, unspecified elevated WBC count D72.829 and Mixed hyperlipidemia E78.2 [place] [id number] [place] [address] 72129- 9298 Jun, Type 2 diabetes mellitus with diabetic polyneuropathy E11.42 ; Hypothyroidism, unspecified hypothyroidism type E03.9 ; Elevated ALT measurement R74.0 ; Mixed hyperlipidemia E78.2 ; Primary insomnia F51.01 ; Seizure-like activity R56.9 ; Presence of IVC filter Z95.828 and Elevated liver enzymes R74.8 [place] [id number] [place] [address] 05730- 5735 Jun, [place] [id number] [place] [address] 88088- 1404 Jun, Hammertoe M20.40 and 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 [place] [id number] [place] [address] 73768- 8386 Jun, Elevated liver enzymes R74.8 [place] [id number] [place] [address] 62838- 3545 Jun, Elevated liver enzymes R74.8 [place] [id number] [place] [address] 94396- 6456 May, Elevated liver enzymes R74.8 [place] [id number] [place] [address] 34568- 3946 May, Hypertension 401.9 ; Hirsutism 704.1 and Hypokalemia 276.8 [place] [id number] [place] [address] 37871- 0254 May, Hypertension 401.9 ; Hirsutism 704.1 and Hypokalemia 276.8 [place] [id number] [place] [address] 62733- 8111 May, Impingement syndrome of right shoulder 726.2 and SLAP lesion of right shoulder 840.7 [place] [id number] [place] [address] 34422- 6950 11 May, 2015 [place] [id number] [place] [address] 18860- 3167 Mar, Decreased sex drive 799.81 and Foot pain, bilateral 729.5 [place] [id number] [place] [address] 39541- 8225 Mar, Impingement syndrome of right shoulder 726.2 [place] [id number] [place] [address] 32776- 6146 Mar, [facility] [address] [id number] Mar, Dental examination V72.2 [place] [id number] [place] [address] 60683- 1897 Feb, Subacromial bursitis 726.19 [place] [id number] [place] [address] 62148- 2900 Feb, [place] [id number] [place] [address] 62377- 5505 January, [place] [id number] [place] [address] 60482- 7577 January, Muscle spasms of lower extremity 728.85 ; Diabetes mellitus , type II 250.00 ; Hypertension 401.9 ; Neuropathy 355.9 ; Hyperlipidemia LDL goal < 100 272.4 ; Hypothyroidism 244.9 ; Insomnia 780.52 ; History of Guillain- Blackey syndrome V12.49 ; Acid reflux disease 530.81 [...]
--- OUTSIDE RECORDS SUMMARY | 2018-10-08 06:13 | XMS REPORT ---
Author Author ASPENGEO SHULTZ Organization [facility] Address [address] [place] [address] Care Team Providers [facility] Medical Assistant Name Role Phone GEO LOUISE Unavailable PROBLEMS Type Condition ICD9-CM Code CFR38-YI Code Onset Dates Condition Status SNOMED Code Problem DM neuro manif type II E11.49 Active 81785639 Problem Leukocytosis, unspecified type D72.829 Active 589970671 Problem Periodic limb movement sleep disorder G47.61 Active 700016576 Problem Type 2 diabetes mellitus with foot ulcer E11.621 Active 622750136725929 Problem Gastroesophageal reflux disease, esophagitis presence not specified K21.9 Active 233597607 Problem Non-pressure chronic ulcer of other part of right foot limited to breakdown of skin L97.511 Active 650454202 Problem 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 Active 856283973070226 Problem Presence of IVC filter Z95.828 Active 511079424 Problem Fatty liver K76.0 Active 125551279 Problem Morbid obesity due to excess calories E66.01 Active 863542101 Problem Non-pressure chronic ulcer of other part of left foot limited to breakdown of skin L97.521 Active 273000747 Problem Constipation by delayed colonic transit K59.01 Active 86460820 Problem Hirsutism L68.0 Active 120670355 Problem Primary insomnia F51.01 Active 711696800 Problem Hypothyroidism, unspecified hypothyroidism type E03.9 Active 89344654 Problem Essential hypertension I10 Active 00468308 Problem Type 2 diabetes mellitus with diabetic polyneuropathy E11.42 Active 797980704 Problem 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 Active 223420717 Problem Chronic prescription benzodiazepine use Z79.899 Active 377936765 Problem Mixed hyperlipidemia E78.2 Active 932923970 Problem Type II or unspecified type diabetes mellitus with neurological manifestations, not stated as uncontrolled E11.49 Active 66677169 Problem Delayed gastric emptying K30 Active 452500876 Problem Anxiety F41.9 Active 90534502 Problem Elevated ALT measurement R74.0 Active 898408958 ALLERGIES No Information ENCOUNTERS Encounter Location Date Diagnosis [facility] [id number] [place] [address] 22407- 2024 Dec, Medicare annual wellness visit, initial Z00.00 [facility] [facility] [id number] [place] [address] 45213- 3604 15 Nov, 2017 [facility] [facility] [id number] [place] [address] 98048- 8825 05 Nov, 2017 Screening for breast cancer Z12.31 [facility] [id number] [place] [address] 44040- 4339 12 Oct, 2017 [facility] [facility] [id number] [place] [address] 77613- 9427 12 Oct, 2017 [place] [id number] [place] [address] 46453- 1490 07 Oct, 2017 Type 2 diabetes mellitus [...] foot limited to breakdown of skin L97.521 [place] [id number] [place] [address]643- 1983 Sep, [place] [id number] [place] [address] 97577- 7667 Sep, [place] [id number] [place] [address] 97798- 3023 Aug, 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 [place] [id number] [place] [address] 25340- 9595 Jul, [facility] [address] [address] May, Type 2 diabetes mellitus with diabetic polyneuropathy E11.42 [facility] [address] [address] 285[address] 18 May, 2017 [facility] [address] [address] May, [facility] [address] [address] 1065 Apr, Type 2 diabetes mellitus with diabetic polyneuropathy E11.42 and Morbid obesity due to excess calories E66.01 [facility] [address] [address] 07[address] Apr, [facility] [id number] [address] 0690 Apr, Type 2 diabetes mellitus with diabetic polyneuropathy E11.42 [facility] [address] [address] Apr, [facility] [id number] [place] [address] 85183- 9023 Mar, [facility] [address] [address] 8392 Mar, [facility] [address] [address] 7064 Mar, [facility] [address] [address] 5204 Mar, Type 2 diabetes mellitus with diabetic polyneuropathy E11.42 [facility] [address] [address] 2887 Feb, [facility] [address] [address] 0725 Feb, [facility] [address] [place] [address] 82642- 4679 Feb, Type 2 diabetes mellitus with diabetic polyneuropathy E11.42 ; Preoperative examination Z01.818 ; Wound, open, foot, left, initial encounter S91.302A ; Weight loss R63.4 and Tobacco abuse Z72.0 [facility] [address] [place] [address] 02747- 8731 Nov, [facility] [id number] [place] [address] 15125- 6344 Nov, Pelvic pain R10.2 [facility] [id number] [place] [address] 09992- 6630 Nov, Morbid obesity due to excess calories E66.01 [facility] [id number] [place] [address] 40706- 3036 Nov, [facility] [id number] [place] [address] 07869- 9703 Nov, [facility] [id number] [place] [address] 68951- 2460 Nov, [facility] [id number] [place] [address] 32301- 1960 Nov, [facility] [id number] [place] [address] 31389- 1989 Oct, [facility] [id number] [place] [address] 44629- 1710 Oct, [facility] [id number] [place] [address] 92047- 5047 Oct, Well woman exam Z01.419 ; Pelvic pain R10.2 and Type 2 diabetes mellitus with diabetic polyneuropathy E11.42 [facility] [address] [place] [address] 77413- 7842 Oct, 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 [facility] [id number] [place] [address] 24935- 3650 Sep, Essential hypertension I10 ; Mixed hyperlipidemia E78.2 ; Leukocytosis, unspecified type D72.829 and Morbid obesity due to excess calories E66.01 [facility] [address] 07284- 2460 Sep, [facility] [address] 68458- 7086 Aug, Hypothyroidism, unspecified hypothyroidism type E03.9 [facility] [address] 27754- 8377 Aug, Hirsutism L68.0 ; Primary insomnia F51.01 ; BMI 37.0-37.9, adult Z68.37 and Gastroesophageal reflux disease, esophagitis presence not specified K21.9 [facility] [facility] [address] 07764- 2778 Jul, [facility] [address] 23579- 0657 Jun, [place] [address] 50771- 3645 Jun, [facility] [facility] [address] 46846- 4951 Jun, Hypothyroidism, unspecified hypothyroidism type E03.9 [place] [id number] [place] [address] 73312- 6439 Jun, Type 2 diabetes mellitus with diabetic polyneuropathy E11.42 ; Fatty liver K76.0 ; Leukocytosis, unspecified type D72.829 ; Morbid obesity due to excess calories E66.01 ; Hypotension due to drugs I95.2 ; Non- intractable vomiting with nausea, unspecified vomiting type R11.2 and Mixed hyperlipidemia E78.2 [place] [id number] [place] [address] 66111- 1045 Jun, [facility] [address] 13346- 6913 Apr, [facility] [id number] [place] [address] 73646- 3042 Apr, [facility] [facility] [address] 72575- 6904 Mar, Eustachian tube dysfunction, bilateral H69.83 [facility] [facility] [address] 22144- 6152 Mar, [facility] [facility] [address] 91375- 0583 Feb, [facility] [address] 28606- 6785 Feb, Type 2 diabetes mellitus with diabetic polyneuropathy E11.42 ; Periodic limb movement sleep disorder G47.61 ; Hirsutism L68.0 ; Leukocytosis, unspecified type D72.829 and Postural dizziness R42 [address] 76685- 2729 Dec, Onychomycosis B35.1 and Foot ulcer L97.509 [facility] [address] 89180- 9773 Nov, [facility] [address] 77188- 6796 Nov, Preoperative cardiovascular examination Z01.810 ; Type 2 diabetes mellitus with diabetic polyneuropathy E11.42 and Essential hypertension I10 [facility] [facility] [address] 92149- 4897 Oct, 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 ; Hammertoe M20.40 and DM neuro manif type II E11.[address] 93100- 7376 Oct, Impingement syndrome of right shoulder M75.41 [facility] [address] 46590- 7881 Sep, [facility] [address] [place] [address]- 6711 Sep, [facility] [id number] [place] [address] 90572- 3989 Sep, Leukocytosis, unspecified elevated WBC count D72.829 [facility] [place] [id number] [place] [address] 32479- 4084 Sep, Leukocytosis, unspecified elevated WBC count D72.829 [facility] [id number] [place] [address] 54826- 3943 Sep, [facility] [id number] [place] [address] 41916- 0540 Sep, [facility] [id number] [place] [address] 11238- 0071 Sep, [facility] [id number] [place] [address] 82527- 0658 Sep, Periodic limb movement sleep disorder G47.61 ; Leukocytosis , unspecified elevated WBC count D72.829 and Mixed hyperlipidemia E78.2 [facility] [id number] [place] [address] 90669- 0040 Sep, Periodic limb movement sleep disorder G47.61 [facility] [id number] [place] [address] 22435- 9708 Aug, [facility] [id number] [place] [address] 59788- 5335 Aug, Type 2 diabetes mellitus with diabetic polyneuropathy E11.42 ; 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 and Major depressive disorder , recurrent episode, mild F33.0 [facility] [id number] [place] [address] 28653- 6646 Aug, Impingement syndrome of right shoulder M75.41 [facility] [address] [place] [address] 98768- 7061 Aug, Shortness of breath R06.02 [facility] [id number] [place] [address] 68807- 9108 Aug, [facility] [address] 69107- 8526 Aug, 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 and Type II or unspecified type diabetes mellitus with neurological manifestations, not stated as uncontrolled E11.49 [facility] [facility] [address] 56100- 0829 Aug, [facility] [facility] [address] 01768- 0781 Jul, Presence of IVC filter Z95.[address] 90579- 1597 Jul, Rotator cuff tear, right M75.[address] 75964- 6427 Jul, [facility] [address] 92073- 6672 Jul, [facility] [address] 48835- 4818 Jul, [facility] [facility] [address] 35791- 0234 Jun, Leukocytosis, unspecified elevated WBC count D72.829 and Mixed hyperlipidemia E78.[address] 41136- 6711 Jun, Type 2 diabetes mellitus with diabetic polyneuropathy E11.42 ; Hypothyroidism, unspecified hypothyroidism type E03.9 ; Elevated ALT measurement R74.0 ; Mixed hyperlipidemia E78.2 ; Primary insomnia F51.01 ; Seizure-like activity R56.9 ; Presence of IVC filter Z95.828 and Elevated liver enzymes R74.8 [place] [id number] [place] [address] 28124- 8006 Jun, [facility] [address] 14578- 9100 Jun, Hammertoe M20.40 and 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 [facility] [id number] [place] [address] 82968- 4645 Jun, Elevated liver enzymes R74.8 [facility] [id number] [place] [address] 93907- 1715 Jun, Elevated liver enzymes R74.8 [facility] [id number] [place] [address] 35984- 5873 30 May, 2015 Elevated liver enzymes R74.8 [facility] [id number] [place] [address] 95010- 8198 28 May, 2015 Hypertension 401.9 ; Hirsutism 704.1 and Hypokalemia 276.8 [place] [id number] [place] [address] 59528- 0589 May, Hypertension 401.9 ; Hirsutism 704.1 and Hypokalemia 276.8 [facility] [id number] [place] [address] 20323- 0954 17 May, 2015 Impingement syndrome of right shoulder 726.2 and SLAP lesion of right shoulder 840.7 [place] [id number] [place] [address] 76748- 8361 May, [place] [id number] [place] [address] 10765- 6285 Mar, Decreased sex drive 799.81 and Foot pain, bilateral 729.5 [facility] [id number] [place] [address] 30565- 6097 Mar, Impingement syndrome of right shoulder 726.2 [facility] [id number] [place] [address] 78384- 9527 13 Mar, 2015 [facility] [id number] [place] [address] [id number] 10 Mar, 2015 Dental examination V72.2 [facility] [address] [facility] [id number] [address] 7[address] Feb, Subacromial bursitis 726.19 [facility] [id number] [address]- 9535 Feb, [facility] [id number] [address]- 4727 January, [facility] [address] [facility] [id number] [address]- 4004 January, Muscle spasms of lower extremity 728.85 ; Diabetes mellitus , type II 250.00 ; Hypertension 401.9 ; Neuropathy 355.9 ; Hyperlipidemia LDL goal < 100 272.4 ; Hypothyroidism 244.9 ; Insomnia 780.52 ; 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
--- OUTSIDE RECORDS SUMMARY | 2018-10-08 06:17 | XMS REPORT | Continuity of Care Document ---
Author Author [facility] Address Unknown Phone Unavailable Allergies Active Description Code Type Severity Reaction Onset Reported/Identified Relationship to Patient Clinical Status Yes No Known Drug Allergies Drug Allergy Unknown 04/16/2012 Yes No Known Drug Allergies Drug Allergy Unknown N/A 04/16/2012 Yes No known drug allergies ND 04/17/2012 Yes No known drug allergies ND N/ A N/A 04/17/2012 Yes No Known Drug Allergies [id number] Drug Allergy Unknown N/A 10/02/2018 Medications There is no data. Problems Date Dx Coded Attending Type Code Diagnosis Diagnosed By 10/12/2011 D 244.9 HYPOTHYROIDISM NOS 10/12/2011 D 250.00 DM2/NOS UNCOMP NSU 10/12/2011 D V58.61 ANTICOAGULANT USE LONG T 11/19/2011 D 724.2 LUMBAGO 12/31/2011 D 789.04 ABDOMINAL PAIN LT LW GREYSON 01/04/2012 D 789.04 ABDOMINAL PAIN LT LW GREYSON 01/04/2012 D V58.61 ANTICOAGULANT USE LONG T 02/01/2012 D V58.61 ANTICOAGULANT USE LONG T 02/14/2012 D V01.79 OTHER VIRAL DIS CONTACT 03/03/2012 D V58.61 ANTICOAGULANT USE LONG T 04/03/2012 D V58.61 ANTICOAGULANT USE LONG T 04/03/2012 D V76.12 OT SCREEN MAMMOGRAM 04/17/2012 D 787.91 DIARRHEA 06/19/2012 D 553.21 INCISIONAL HERNIA 06/19/2012 D 787.91 DIARRHEA 06/19/2012 D 826.0 FX PHALANX, FOOT-CLOSED 07/17/2012 D 787.02 NAUSEA ALONE 07/17/2012 D 787.91 DIARRHEA 07/17/2012 D 789.00 ABDOMINAL PAIN, UNSPECIF 07/17/2012 D 826.0 FX PHALANX, FOOT-CLOSED 07/17/2012 D V58.61 ANTICOAGULANT USE LONG T 10/10/2012 D 453.9 VENOUS THROMBOSIS NOS 10/16/2012 BRYAN BAL MD 453.9 VENOUS THROMBOSIS NOS 10/21/2012 DIVYA THORNTON DPM 681.11 ONYCHIA OF TOE 10/21/2012 DIVYA THORNTON DPM 703.8 DISEASES OF NAIL NEC 10/24/2012 BRYAN BAL MD 453.9 VENOUS THROMBOSIS NOS 10/30/2012 BRYAN BAL MD 453.9 VENOUS THROMBOSIS NOS 11/06/2012 BRYAN BAL MD 453.9 VENOUS THROMBOSIS NOS 11/13/2012 BRYAN BAL MD 453.9 VENOUS THROMBOSIS NOS 11/25/2012 DIVYA THORNTON DPM 729.5 PAIN IN LIMB 11/27/2012 SAM GONGORA MD 211.3 BENIGN NEOPLASM LG BOWEL 11/27/2012 SAM GONGORA MD 453.9 VENOUS THROMBOSIS NOS 11/27/2012 SAM GONGORA MD 564.00 CONSTIPATION NOS 11/27/2012 SAM GONGORA MD 787.91 DIARRHEA 11/27/2012 SAM GONGORA MD 789.06 ABDOMINAL PAIN EPIGASTRI 12/04/2012 BRYAN BAL MD 453.9 VENOUS THROMBOSIS NOS 12/04/2012 BRYAN BAL MD 825.25 FX METATARSAL-CLOSED 12/11/2012 BRYAN BAL MD 453.9 VENOUS THROMBOSIS NOS 12/17/2012 BRYAN BAL MD 729.5 PAIN IN LIMB 12/17/2012 BRYAN BAL MD V57.1 PHYSICAL THERAPY NEC 12/18/2012 BRYAN BAL MD 453.9 VENOUS THROMBOSIS NOS 12/23/2012 DIVYA THORNTON DPM 250.00 DM2/NOS UNCOMP NSU 12/23/2012 DIVYA THORNTON DPM 355.6 PLANTAR NERVE LESION 12/26/2012 BRYAN BAL MD 453.9 VENOUS THROMBOSIS NOS 01/01/2013 BRYAN BAL MD 453.9 VENOUS THROMBOSIS NOS 01/08/2013 BRYAN BAL MD 453.9 VENOUS THROMBOSIS NOS 01/15/2013 BRYAN BAL MD 453.9 VENOUS THROMBOSIS NOS 01/27/2013 BRYAN BAL MD 453.9 VENOUS THROMBOSIS NOS 02/03/2013 BRYAN BAL MD 453.9 VENOUS THROMBOSIS NOS 02/10/2013 BRYAN BAL MD 453.9 VENOUS THROMBOSIS NOS 02/17/2013 BRYAN BAL MD 453.9 VENOUS THROMBOSIS NOS 02/24/2013 BRYAN BAL MD 453.9 VENOUS THROMBOSIS NOS 02/24/2013 JUNIOR CANTU, DIVYA Tse 355.8 MONONEURITIS LEG NOS 02/24/2013 JUNIOR CANTU, DIVYA Tse 726.91 EXOSTOSIS, SITE NOS 03/03/2013 BRYAN BAL MD 453.9 VENOUS THROMBOSIS NOS 03/03/2013 BRYAN BAL MD V72.84 PRE-OP EXAMINATION, [facility] 03/24/2013 JUNIOR CANTU, DIVYA Tse 355.6 PLANTAR NERVE LESION 03/24/2013 JUNIOR CANTU, DIVYA Tse 453.9 VENOUS THROMBOSIS NOS 03/31/2013 BRYAN BAL MD 453.9 VENOUS THROMBOSIS NOS 03/31/2013 BRYAN BAL MD 627.2 SYMPT FE MENOPAUSE 04/07/2013 BRYAN BAL MD 453.9 VENOUS THROMBOSIS NOS 04/14/2013 BRYAN BAL MD 453.9 VENOUS THROMBOSIS NOS 2013 JUNIOR CANTU, DIVYA Tse 355.6 PLANTAR NERVE LESION 2013 BRYAN BAL MD 453.9 VENOUS THROMBOSIS NOS 04/28/2013 BRYAN BAL MD 453.9 VENOUS THROMBOSIS NOS 05/05/2013 BRYAN BAL MD 244.9 HYPOTHYROIDISM NOS 05/05/2013 BRYAN BAL MD 453.9 VENOUS THROMBOSIS NOS 05/12/2013 BRYAN BAL MD 453.9 VENOUS THROMBOSIS NOS 05/18/2013 BRYAN BAL MD 453.9 VENOUS THROMBOSIS NOS 05/26/2013 BRYAN BAL MD 453.9 VENOUS THROMBOSIS NOS 05/30/2013 JUNIOR CANTU, DIVYA Tse 726.79 ANKLE ENTHESOPATHY NEC 05/30/2013 JUNIOR CANTU, DIVYA Tse V57.1 PHYSICAL THERAPY NEC 06/02/2013 BRYAN BAL MD 453.9 VENOUS THROMBOSIS NOS 06/09/2013 BRYAN BAL MD 453.9 VENOUS THROMBOSIS NOS 06/16/2013 BRYAN BAL MD 453.9 VENOUS THROMBOSIS NOS 06/22/2013 BRYAN BAL MD 453.9 VENOUS THROMBOSIS NOS 06/29/2013 JUNIOR CANTU, DIVYA Tse 726.79 ANKLE ENTHESOPATHY NEC 06/29/2013 JUNIOR CANTU, DIVYA Tse V57.1 PHYSICAL THERAPY NEC 06/30/2013 BRYAN BAL MD 453.9 VENOUS THROMBOSIS NOS 07/10/2013 BRYAN BAL MD 453.9 VENOUS THROMBOSIS NOS 07/16/2013 BRYAN BAL MD 453.9 VENOUS THROMBOSIS NOS 07/16/2013 BRYAN BAL MD V76.12 OT SCREEN MAMMOGRAM 07/23/2013 BRYAN BAL MD 453.9 VENOUS THROMBOSIS NOS 07/30/2013 BRYAN BAL MD 453.9 VENOUS THROMBOSIS NOS 07/30/2013 JUNIOR CANTU, DIVYA Tse 726.79 ANKLE ENTHESOPATHY NEC 07/30/2013 JUNIOR CANTU, DIVYA Tse V57.1 PHYSICAL THERAPY NEC 08/06/2013 BRYAN BAL MD 453.9 VENOUS THROMBOSIS NOS 08/12/2013 BRYAN BAL MD 453.9 VENOUS THROMBOSIS NOS 08/12/2013 JUNIOR CANTU, DIVYA Tse 726.79 ANKLE ENTHESOPATHY NEC 08/12/2013 JUNIOR CANTU, DIVYA Tse V57.1 PHYSICAL THERAPY NEC 08/31/2015 BRAYDEN WRIGHT Ot M75.01 09/09/2015 Ot M75.01 09/13/2015 GEO LOUISE MD Ot G47.10 HYPERSOMNIA, UNSPECIFIED 09/13/2015 GEO LOUISE MD Ot G47.61 PERIODIC LIMB MOVEMENT DISORDER 09/13/2015 GEO LOUISE MD Ot R06.83 SNORING 09/15/2015 Ot M75.01 09/20/2015 Ot M75.01 09/20/2015 Ot M75.01 09/28/2015 Ot Z95.828 09/29/2015 Ot Z95.828 11/23/2015 Ot M75.01 11/23/2015 Ot Z95.828 11/29/2015 Ot M75.01 11/29/2015 Ot Z95.828 11/29/2015 NATHALY DONNELLY, NEY Nolan Ot D72.829 11/29/2015 NATHALY DONNELLY, NEY Nolan Ot F17.210 12/16/2015 BIRGIT DONNELLY, YING Pierce Ot M75.41 IMPINGEMENT SYNDROME OF RIGHT SHOULDER 12/16/2015 BIRGIT DONNELLY, YING Pierce Ot S43.431A SUPERIOR GLENOID LABRUM LESION OF RIGHT 12/19/2015 BIRGIT DONNELLY, YING Pierce Ot M75.41 12/19/2015 BIRGIT DONNELLY, YING Pierce Ot S43.431A 12/20/2015 NATHALY DONNELLY, ENY Nolan Ot D72.829 12/20/2015 NATHALY DONNELLY, NEY [...] Ot F17.210 NICOTINE DEPENDENCE, CIGARETTES, UNCOMPL 12/28/2015 BIRGIT DONNELLY, YING Pierce Ot F32.9 MAJOR DEPRESSIVE DISORDER, SINGLE EPISOD 12/28/2015 BIRGIT DONNELLY, YING Pierce Ot F41.9 ANXIETY DISORDER, UNSPECIFIED 12/28/2015 YING GENAO MD Ot I10 ESSENTIAL (PRIMARY) HYPERTENSION 12/28/2015 BIRGIT DONNELLY, YING Pierce Ot M19.011 PRIMARY OSTEOARTHRITIS, RIGHT SHOULDER 12/28/2015 BIRGIT DONNELLY, YING Pierce Ot M75.111 INCOMPLETE ROTATR-CUFF TEAR/RUPTR OF R S 12/28/2015 BIRGIT DONNELLY, YING Pierce Ot M77.01 MEDIAL EPICONDYLITIS, RIGHT ELBOW 12/28/2015 YING GENAO MD, Ot S43.431A SUPERIOR GLENOID LABRUM LESION OF RIGHT 12/28/2015 YING GENAO MD, Ot Z86.718 PERSONAL HISTORY OF OTHER VENOUS THROMBO 01/02/2016 NEY ANDERSEN MD, Ot D72.829 01/02/2016 NEY ANDERSEN MD, Ot F17.210 01/02/2016 NEY ANDERSEN MD, Ot Z12.31 01/02/2016 NEY ANDERSEN MD, Ot Z80.3 02/21/2016 NEY ANDERSEN MD, Ot D72.829 ELEVATED WHITE BLOOD CELL COUNT, UNSPECI 02/21/2016 NEY ANDERSEN MD, Ot F17.210 NICOTINE DEPENDENCE, CIGARETTES, UNCOMPL 03/12/2016 NEY ANDERSEN MD, Ot D72.829 ELEVATED WHITE BLOOD CELL COUNT, UNSPECI 03/12/2016 NEY ANDERSEN MD, Ot F17.210 NICOTINE DEPENDENCE, CIGARETTES, UNCOMPL 03/22/2016 NEY ANDERSEN MD, Ot D72.829 ELEVATED WHITE BLOOD CELL COUNT, UNSPECI 03/22/2016 NEY ANDERSEN MD, Ot F17.210 NICOTINE DEPENDENCE, CIGARETTES, UNCOMPL 04/20/2016 NEY ANDERSEN MD, Ot D72.829 ELEVATED WHITE BLOOD CELL COUNT, UNSPECI 04/20/2016 NEY ANDERSEN MD, Ot F17.210 NICOTINE DEPENDENCE, CIGARETTES, UNCOMPL 04/27/2016 NEY ANDERSEN MD, Ot D72.829 ELEVATED WHITE BLOOD CELL COUNT, UNSPECI 04/27/2016 NEY ANDERSEN MD Ot F17.210 NICOTINE DEPENDENCE, CIGARETTES, UNCOMPL 05/01/2016 NEY ANDERSEN MD Ot Z12.31 ENCNTR SCREEN MAMMOGRAM FOR MALIGNANT NE 05/01/2016 NEY ANDERSEN MD, Ot Z80.3 FAMILY HISTORY OF MALIGNANT NEOPLASM OF 05/01/2016 NEY ANDERSEN MD, Ot D72.829 ELEVATED WHITE BLOOD CELL COUNT, UNSPECI 05/01/2016 NEY ANDERSEN MD, Ot F17.210 NICOTINE DEPENDENCE, CIGARETTES, UNCOMPL 05/02/2016 NEY ANDERSEN MD, Ot K76.0 FATTY (CHANGE OF) LIVER, NOT ELSEWHERE C 05/02/2016 NEY ANDERSEN MD, Ot K76.0 FATTY (CHANGE OF) LIVER, NOT ELSEWHERE C 05/07/2016 NEY ANDERSEN MD, Ot K76.0 FATTY (CHANGE OF) LIVER, NOT ELSEWHERE C 05/22/2016 NEY ANDERSEN MD, Ot K76.0 FATTY (CHANGE OF) LIVER, NOT ELSEWHERE C 05/25/2016 ENY ANDERSEN MD, Ot D72.829 ELEVATED WHITE BLOOD CELL COUNT, UNSPECI 05/25/2016 NEY ANDERSEN MD, Ot F17.210 NICOTINE DEPENDENCE, CIGARETTES, UNCOMPL 06/01/2016 NEY ANDERSEN MD, Ot K76.0 FATTY (CHANGE OF) LIVER, NOT ELSEWHERE C 06/19/2016 NEY ANDERSEN MD, Ot D72.829 ELEVATED WHITE BLOOD CELL COUNT, UNSPECI 06/19/2016 NEY ANDERSEN MD, Ot E03.9 HYPOTHYROIDISM, UNSPECIFIED 06/19/2016 NEY ANDERSEN MD, Ot E11.9 TYPE 2 DIABETES MELLITUS WITHOUT COMPLIC 06/19/2016 NYE ANDERSEN MD, Ot E66.9 OBESITY, UNSPECIFIED 06/19/2016 NEY ANDERSEN MD, Ot F17.210 NICOTINE DEPENDENCE, CIGARETTES, UNCOMPL 06/19/2016 NEY ANDERSEN MD Ot M19.90 UNSPECIFIED OSTEOARTHRITIS, UNSPECIFIED 06/19/2016 NEY ANDERSEN MD, Ot R79.82 ELEVATED C-REACTIVE PROTEIN (CRP) 06/19/2016 NEY ANDERSEN MD, Ot R79.89 OTHER SPECIFIED ABNORMAL FINDINGS OF BLO 06/19/2016 NEY ANDERSEN MD Ot Z68.35 BODY MASS INDEX (BMI) 35.0-35.9, ADULT 06/19/2016 NEY ANDERSEN MD, Ot Z79.899 OTHER [facility] (CURRENT) DRUG THERAPY 06/19/2016 NEY ANDERSEN MD, Ot Z80.3 FAMILY HISTORY OF MALIGNANT NEOPLASM OF 06/19/2016 NEY ANDERSEN MD, Ot Z86.718 PERSONAL HISTORY OF OTHER VENOUS THROMBO 06/26/2016 NEY ANDERSEN MD, Ot D72.829 ELEVATED WHITE BLOOD CELL COUNT, UNSPECI 06/26/2016 NEY ANDERSEN MD, Ot E03.9 HYPOTHYROIDISM, UNSPECIFIED 06/26/2016 NEY ANDERSEN MD, Ot E11.9 TYPE 2 DIABETES MELLITUS WITHOUT COMPLIC 06/26/2016 NEY ANDERSEN MD, Ot E66.9 OBESITY, UNSPECIFIED 06/26/2016 NEY ANDERSEN MD, Ot F17.210 NICOTINE DEPENDENCE, CIGARETTES, UNCOMPL 06/26/2016 NEY ANDERSEN MD, Ot M19.90 UNSPECIFIED OSTEOARTHRITIS, UNSPECIFIED 06/26/2016 NEY ANDERSEN MD, Ot R79.82 ELEVATED C-REACTIVE PROTEIN (CRP) 06/26/2016 NEY ANDERSEN MD, Ot R79.89 OTHER SPECIFIED ABNORMAL FINDINGS OF BLO 06/26/2016 NEY ANDERSEN MD, Ot Z68.35 BODY MASS INDEX (BMI) 35.0-35.9, ADULT 06/26/2016 NEY ANDERSEN MD, Ot Z79.899 OTHER [facility] (CURRENT) DRUG THERAPY 06/26/2016 NEY ANDERSEN MD, Ot Z80.3 FAMILY HISTORY OF MALIGNANT NEOPLASM OF 06/26/2016 NEY ANDERSEN MD, Ot Z86.718 PERSONAL HISTORY [...] BLOOD CELL COUNT, UNSPECI 07/04/2016 NEY ANDERSEN MD Ot F17.210 NICOTINE DEPENDENCE, CIGARETTES, UNCOMPL 07/04/2016 NEY ANDERSEN MD, Ot D72.829 ELEVATED WHITE BLOOD CELL COUNT, UNSPECI 07/04/2016 NEY ANDERSEN MD Ot F17.210 NICOTINE DEPENDENCE, CIGARETTES, UNCOMPL 07/04/2016 [...] MAMMOGRAM FOR MALIGNANT NE 07/11/2016 NEY ANDERSEN MD, Ot Z80.3 FAMILY HISTORY OF MALIGNANT NEOPLASM OF 07/11/2016 NEY ANDERSEN MD, Ot K76.0 FATTY (CHANGE OF) LIVER, NOT ELSEWHERE C 07/11/2016 NEY ANDERSEN MD, Ot D72.829 ELEVATED WHITE BLOOD CELL COUNT, UNSPECI 07/11/2016 NEY ANDERSEN MD, Ot F17.210 NICOTINE DEPENDENCE, CIGARETTES, UNCOMPL 07/11/2016 YING GENAO MD Ot E03.9 HYPOTHYROIDISM, UNSPECIFIED 07/11/2016 YING GENAO MD Ot E11.9 TYPE 2 DIABETES MELLITUS WITHOUT COMPLIC 07/11/2016 YING GENAO MD Ot E78.5 HYPERLIPIDEMIA, UNSPECIFIED 07/11/2016 YING GENAO MD Ot F17.210 NICOTINE DEPENDENCE, CIGARETTES, UNCOMPL 07/11/2016 YING GENAO MD Ot F41.9 ANXIETY DISORDER, UNSPECIFIED 07/11/2016 YING GENAO MD Ot I10 ESSENTIAL (PRIMARY) HYPERTENSION 07/11/2016 YING GENAO MD Ot M75.101 UNSP ROTATR-CUFF TEAR/RUPTR OF RIGHT JESSE 07/11/2016 YING GENAO MD Ot Z79.899 OTHER [facility] (CURRENT) DRUG THERAPY 07/11/2016 YING GENAO MD [...] 07/13/2016 YING GENAO MD, Ot Z79.899 OTHER [facility] (CURRENT) DRUG THERAPY 07/13/2016 YING GENAO MD, Ot Z86.718 PERSONAL HISTORY OF OTHER VENOUS THROMBO 07/13/2016 YING GENAO MD, Ot E03.9 HYPOTHYROIDISM, UNSPECIFIED 07/13/2016 YING GENAO MD, Ot E11.9 TYPE 2 DIABETES MELLITUS WITHOUT COMPLIC 07/13/2016 YING GENAO MD, Ot E78.5 HYPERLIPIDEMIA, UNSPECIFIED 07/13/2016 YING GENAO MD, Ot F17.210 NICOTINE DEPENDENCE, CIGARETTES, UNCOMPL 07/13/2016 YING GENAO MD, Ot F41.9 ANXIETY DISORDER, UNSPECIFIED 07/13/2016 YING GENAO MD, Ot I10 ESSENTIAL (PRIMARY) HYPERTENSION 07/13/2016 YING GENAO MD, Ot M75.101 UNSP ROTATR-CUFF TEAR/RUPTR OF RIGHT JESSE 07/13/2016 YING GENAO MD, Ot Z79.899 OTHER [facility] (CURRENT) DRUG THERAPY 07/13/2016 YING GENAO MD, [...] Ot F17.210 NICOTINE DEPENDENCE, CIGARETTES, UNCOMPL 07/18/2016 YING GENAO 726.10 DISORDERS OF BURSA[place] AND TENDONS IN SHOULDER REGION, UNSPECIFIED 07/18/2016 YING GENAO M75.101 UNSP ROTATR-CUFF TEAR/RUPTR OF RIGHT SHOULDER, NOT TRAUMA 07/18/2016 GEO LOUISE MD, Ot R11.2 NAUSEA WITH VOMITING, UNSPECIFIED 08/07/2016 GEO LOUISE MD Ot R11.2 NAUSEA WITH VOMITING, UNSPECIFIED 08/17/2016 GEO LOUISE MD Ot R11.2 NAUSEA WITH VOMITING, UNSPECIFIED 11/29/2016 Ot M75.01 ADHESIVE CAPSULITIS OF RIGHT SHOULDER 11/29/2016 Ot Z95.828 PRESENCE OF OTHER VASCULAR IMPLANTS AND 11/29/2016 NEY ANDERSEN MD Ot Z12.31 ENCNTR SCREEN MAMMOGRAM FOR MALIGNANT NE 11/29/2016 NEY ANDERSEN MD, Ot Z80.3 FAMILY HISTORY OF MALIGNANT NEOPLASM OF 11/29/2016 NEY ANDERSEN MD, Ot K76.0 FATTY (CHANGE OF) LIVER, NOT ELSEWHERE C 11/29/2016 NEY ANDERSEN MD, Ot D72.829 ELEVATED WHITE BLOOD CELL COUNT, UNSPECI 11/29/2016 NEY ANDERSEN MD, Ot E03.9 HYPOTHYROIDISM, UNSPECIFIED 11/29/2016 NEY ANDERSEN MD Ot E11.9 TYPE 2 DIABETES MELLITUS WITHOUT COMPLIC 11/29/2016 NEY ANDERSEN MD, Ot E66.9 OBESITY, UNSPECIFIED 11/29/2016 NEY ANDERSEN MD Ot F17.210 NICOTINE DEPENDENCE, CIGARETTES, UNCOMPL 11/29/2016 NEY ANDERSEN MD Ot M19.90 UNSPECIFIED OSTEOARTHRITIS, UNSPECIFIED 11/29/2016 NEY ANDERSEN MD, Ot R79.82 ELEVATED C-REACTIVE PROTEIN (CRP) 11/29/2016 NEY ANDERSEN MD Ot R79.89 OTHER SPECIFIED ABNORMAL FINDINGS OF BLO 11/29/2016 NEY ANDERSEN MD Ot Z68.35 BODY MASS INDEX (BMI) 35.0-35.9, ADULT 11/29/2016 NEY ANDERSEN MD, Ot Z79.899 OTHER CORROSION CONTROL FITTER (CURRENT) DRUG THERAPY 11/29/2016 NEY ANDERSEN MD Ot Z80.3 FAMILY HISTORY OF MALIGNANT NEOPLASM OF 11/29/2016 NEY ANDERSEN MD, Ot Z86.718 PERSONAL HISTORY OF OTHER VENOUS THROMBO 11/29/2016 GEO LOUISE MD Ot R11.2 NAUSEA WITH VOMITING, UNSPECIFIED 11/29/2016 GEO LOUISE MD Ot R10.2 PELVIC AND PERINEAL PAIN 11/29/2016 NEY ANDERSEN MD Ot Z12.31 ENCNTR SCREEN MAMMOGRAM FOR MALIGNANT NE 11/30/2016 GEO LOUISE MD Ot R10.2 PELVIC AND PERINEAL PAIN 11/30/2016 NEY ANDERSEN MD Ot Z12.31 ENCNTR SCREEN MAMMOGRAM FOR MALIGNANT NE 12/26/2016 NEY ANDERSEN MD, Ot D72.829 ELEVATED WHITE BLOOD CELL COUNT, UNSPECI 12/26/2016 NEY ANDERSEN MD, Ot E03.9 HYPOTHYROIDISM, UNSPECIFIED 12/26/2016 NEY ANDERSEN MD Ot E11.9 TYPE 2 DIABETES MELLITUS WITHOUT COMPLIC 12/26/2016 NEY ANDERSEN MD, Ot E66.9 OBESITY, UNSPECIFIED 12/26/2016 NEY ANDERSEN MD, Ot F17.210 NICOTINE DEPENDENCE, CIGARETTES, UNCOMPL 12/26/2016 NYE ANDERSEN MD, Ot M19.90 UNSPECIFIED OSTEOARTHRITIS, UNSPECIFIED 12/26/2016 NEY ANDERSEN MD, Ot R79.82 ELEVATED C-REACTIVE PROTEIN (CRP) 12/26/2016 NEY ANDERSEN MD, Ot R79.89 OTHER SPECIFIED ABNORMAL FINDINGS OF BLO 12/26/2016 NEY ANDERSEN MD, Ot Z68.35 BODY MASS INDEX (BMI) 35.0-35.9, ADULT 12/26/2016 NEY ANDERSEN MD, Ot Z79.899 OTHER [facility] (CURRENT) DRUG THERAPY 12/26/2016 NEY ANDERSEN MD, Ot Z80.3 FAMILY HISTORY OF MALIGNANT NEOPLASM OF 12/26/2016 NEY ANDERSEN MD Ot Z86.718 PERSONAL HISTORY OF OTHER VENOUS THROMBO 12/26/2016 Ot M75.01 ADHESIVE CAPSULITIS OF RIGHT SHOULDER 12/26/2016 Ot Z95.828 PRESENCE OF OTHER VASCULAR IMPLANTS AND 12/26/2016 NEY ANDERSEN MD, Ot Z12.31 ENCNTR SCREEN MAMMOGRAM FOR MALIGNANT NE 12/26/2016 NEY ANDERSEN MD, Ot Z80.3 FAMILY HISTORY OF MALIGNANT NEOPLASM OF 12/26/2016 NEY ANDERSEN MD Ot K76.0 FATTY (CHANGE OF) LIVER, NOT ELSEWHERE C 12/26/2016 NEY ANDERSEN MD, Ot D72.829 ELEVATED WHITE BLOOD CELL COUNT, UNSPECI 12/26/2016 NEY ANDERSEN MD, Ot E03.9 HYPOTHYROIDISM, UNSPECIFIED 12/26/2016 NEY ANDERSEN MD, Ot E11.9 TYPE 2 [...] 12/26/2016 NEY ANDERSEN MD, Ot Z79.899 OTHER [facility] (CURRENT) DRUG THERAPY 12/26/2016 NEY ANDERSEN MD, Ot Z80.3 FAMILY HISTORY OF MALIGNANT NEOPLASM OF 12/26/2016 NEY ANDERSEN MD, Ot Z86.718 PERSONAL HISTORY OF OTHER VENOUS THROMBO 12/26/2016 GEO LOUISE MD Ot R11.2 NAUSEA WITH VOMITING, UNSPECIFIED 12/26/2016 NEY ANDERSEN MD, Ot Z12.31 ENCNTR SCREEN [...] Ot E66.9 OBESITY, UNSPECIFIED 01/04/2017 NEY ANDERSEN MD Ot F17.210 NICOTINE DEPENDENCE, CIGARETTES, UNCOMPL 01/04/2017 NEY ANDERSEN MD, Ot M19.90 UNSPECIFIED OSTEOARTHRITIS, UNSPECIFIED 01/04/2017 NEY ANDERSEN MD, Ot R79.82 ELEVATED C-REACTIVE PROTEIN (CRP) 01/04/2017 NEY ANDERSEN MD, Ot R79.89 OTHER SPECIFIED ABNORMAL FINDINGS OF BLO 01/04/2017 NEY ANDERSEN MD, Ot Z68.35 BODY MASS INDEX (BMI) 35.0-35.9, ADULT 01/04/2017 NEY ANDERSEN MD, Ot Z79.899 OTHER CORROSION CONTROL FITTER (CURRENT) DRUG THERAPY 01/04/2017 NEY ANDERSEN MD, [...] ELEVATED WHITE BLOOD CELL COUNT, UNSPECI 01/18/2017 NEY ANDERSEN MD, Ot E03.9 HYPOTHYROIDISM, UNSPECIFIED 01/18/2017 NEY ANDERSEN [...] 01/18/2017 NEY ANDERSEN MD, Ot Z79.899 OTHER [facility] (CURRENT) DRUG THERAPY 01/18/2017 NEY ANDERSEN MD, [...] 01/30/2017 NEY ANDERSEN MD, Ot Z79.899 OTHER CORROSION CONTROL FITTER (CURRENT) DRUG THERAPY 01/30/2017 NEY ANDERSEN MD, Ot Z80.3 FAMILY HISTORY OF MALIGNANT NEOPLASM OF 01/30/2017 NEY ANDERSEN MD Ot Z86.718 PERSONAL HISTORY OF OTHER VENOUS THROMBO 01/30/2017 GEO LOUISE MD Ot R11.2 NAUSEA WITH VOMITING, UNSPECIFIED 01/30/2017 NEY ANDERSEN MD, Ot Z12.31 ENCNTR SCREEN MAMMOGRAM FOR MALIGNANT NE 01/30/2017 GEO LOUISE MD Ot R10.2 PELVIC AND PERINEAL PAIN 01/30/2017 BIRGIT DONNELLY, YING Pierce Ot M65.331 TRIGGER FINGER, RIGHT MIDDLE FINGER [...] F17.210 NICOTINE DEPENDENCE, CIGARETTES, UNCOMPL 01/30/2017 NEY ANEDRSEN MD Ot M19.90 UNSPECIFIED OSTEOARTHRITIS, UNSPECIFIED 01/30/2017 NEY ANDERSEN MD, Ot R79.82 ELEVATED C-REACTIVE PROTEIN (CRP) 01/30/2017 NEY ANDERSEN MD, Ot R79.89 OTHER SPECIFIED ABNORMAL FINDINGS OF BLO 01/30/2017 NEY ANDERSEN MD Ot Z68.35 BODY MASS INDEX (BMI) 35.0-35.9, ADULT 01/30/2017 NEY ANDERSEN MD, Ot Z79.899 OTHER [facility] (CURRENT) DRUG THERAPY 01/30/2017 NEY ANDERSEN MD Ot Z80.3 FAMILY HISTORY OF MALIGNANT NEOPLASM OF 01/30/2017 NEY ANDERSEN MD, Ot Z86.718 PERSONAL HISTORY OF OTHER VENOUS THROMBO 01/30/2017 GEO LOUISE MD Ot R11.2 NAUSEA WITH VOMITING, UNSPECIFIED 01/30/2017 NEY ANDERSEN MD Ot Z12.31 ENCNTR SCREEN MAMMOGRAM FOR MALIGNANT NE 01/30/2017 GEO LOUISE MD N Ot R10.2 PELVIC AND PERINEAL PAIN 01/30/2017 DARA BROOKS Ot B07.0 PLANTAR WART 01/30/2017 DARA BROOKS Ot L03.032 CELLULITIS OF LEFT TOE 01/30/2017 DARA BROOKS Ot M79.672 PAIN IN LEFT FOOT 01/31/2017 YING GENAO MD Ot M65.331 TRIGGER FINGER, RIGHT MIDDLE FINGER 01/31/2017 YING GENAO MD, Ot M65.341 TRIGGER FINGER, RIGHT RING FINGER 01/31/2017 YING GENAO MD, Ot Z01.818 ENCOUNTER FOR OTHER PREPROCEDURAL EXAMIN 01/31/2017 YING GENAO MD, Ot Z11.2 ENCOUNTER FOR SCREENING FOR OTHER BACTER 02/03/2017 NEY ANDERSEN MD, Ot D72.829 ELEVATED WHITE BLOOD CELL COUNT, UNSPECI 02/03/2017 NEY ANDERSEN MD Ot E03.9 HYPOTHYROIDISM, UNSPECIFIED 02/03/2017 NEY ANDERSEN MD Ot E11.9 TYPE 2 DIABETES MELLITUS WITHOUT COMPLIC 02/03/2017 NEY ANDERSEN MD Ot E66.9 OBESITY, UNSPECIFIED 02/03/2017 NEY ANDERSEN MD Ot F17.210 NICOTINE DEPENDENCE, CIGARETTES, UNCOMPL 02/03/2017 NEY ANDERSEN MD Ot M19.90 UNSPECIFIED OSTEOARTHRITIS, UNSPECIFIED 02/03/2017 NEY ANDERSEN MD, Ot R79.82 ELEVATED C-REACTIVE PROTEIN (CRP) 02/03/2017 NEY ANDERSEN MD, Ot R79.89 OTHER SPECIFIED ABNORMAL FINDINGS OF BLO 02/03/2017 NEY ANDERSEN MD Ot Z68.35 BODY MASS INDEX (BMI) 35.0-35.9, ADULT 02/03/2017 NEY ANDERSEN MD, Ot Z79.899 OTHER [facility] (CURRENT) DRUG THERAPY 02/03/2017 NEY ANDERSEN MD Ot Z80.3 FAMILY HISTORY OF MALIGNANT NEOPLASM OF 02/03/2017 NEY ANDERSEN MD Ot Z86.718 PERSONAL HISTORY [...] NICOTINE DEPENDENCE, CIGARETTES, UNCOMPL 02/04/2017 NEY ANDERSEN MD Ot M19.90 UNSPECIFIED OSTEOARTHRITIS, UNSPECIFIED 02/04/2017 NEY ANDERSEN MD, Ot R79.82 ELEVATED C-REACTIVE PROTEIN (CRP) 02/04/2017 NEY ANDERSEN MD, Ot R79.89 OTHER SPECIFIED ABNORMAL FINDINGS OF BLO 02/04/2017 NEY ANDERSEN MD, Ot Z68.35 BODY MASS INDEX (BMI) 35.0-35.9, ADULT 02/04/2017 NEY ANDERSEN MD, Ot Z79.899 OTHER [facility] (CURRENT) DRUG THERAPY 02/04/2017 NEY ANDERSEN MD, [...] MAJOR DEPRESSIVE DISORDER, SINGLE EPISOD 02/07/2017 YING GEANO MD Ot I10 ESSENTIAL (PRIMARY) HYPERTENSION 02/07/2017 YING GENAO MD Ot K21.9 GASTRO-ESOPHAGEAL REFLUX DISEASE WITHOUT 02/07/2017 YING GENAO MD Ot M65.331 TRIGGER FINGER, RIGHT MIDDLE FINGER 02/07/2017 YING GENAO MD Ot M65.341 TRIGGER FINGER, RIGHT RING FINGER 02/09/2017 NEY ANDERSEN MD Ot D72.829 ELEVATED WHITE BLOOD CELL COUNT, UNSPECI 02/09/2017 NEY ANDERSEN MD Ot E03.9 HYPOTHYROIDISM, UNSPECIFIED 02/09/2017 NEY ANDERSEN MD Ot E11.9 TYPE 2 DIABETES MELLITUS WITHOUT COMPLIC 02/09/2017 NEY ANDERSEN MD Ot E66.9 OBESITY, UNSPECIFIED 02/09/2017 NEY ANDERSEN MD Ot F17.210 NICOTINE DEPENDENCE, CIGARETTES, UNCOMPL 02/09/2017 NEY ANDERSEN MD Ot M19.90 UNSPECIFIED OSTEOARTHRITIS, UNSPECIFIED 02/09/2017 NEY ANDERSEN MD Ot R79.82 ELEVATED C-REACTIVE PROTEIN (CRP) 02/09/2017 NEY ANDERSEN MD Ot R79.89 OTHER SPECIFIED ABNORMAL FINDINGS OF BLO 02/09/2017 NEY ANDERSEN MD, Ot Z68.35 BODY MASS INDEX (BMI) 35.0-35.9, ADULT 02/09/2017 NEY ANDERSEN MD Ot Z79.899 OTHER [facility] (CURRENT) DRUG THERAPY 02/09/2017 NEY ANDERSEN MD Ot Z80.3 FAMILY HISTORY OF MALIGNANT NEOPLASM OF 02/09/2017 NEY ANDERSEN MD, Ot Z86.718 PERSONAL HISTORY OF OTHER VENOUS THROMBO 03/14/2017 CHLOE BALDWIN MD Ot D72.829 ELEVATED WHITE BLOOD CELL COUNT, UNSPECI 03/14/2017 CHLOE BALDWIN MD Ot E03.9 HYPOTHYROIDISM, UNSPECIFIED 03/14/2017 CHLOE BALDWIN MD Ot E11.9 TYPE 2 DIABETES MELLITUS WITHOUT COMPLIC 03/14/2017 CHLOE BALDWIN MD Ot E66.9 OBESITY, UNSPECIFIED 03/14/2017 CHLOE BALDWIN MD Ot F17.210 NICOTINE DEPENDENCE, CIGARETTES, UNCOMPL 03/14/2017 CHLOE BALDWIN MD Ot M19.90 UNSPECIFIED OSTEOARTHRITIS, UNSPECIFIED 03/14/2017 CHLOE BALDWIN MD Ot R79.82 ELEVATED C-REACTIVE PROTEIN (CRP) 03/14/2017 CHLOE BALDWIN MD Ot R79.89 OTHER SPECIFIED ABNORMAL FINDINGS OF BLO 03/14/2017 CHLOE BALDWIN MD, Ot Z68.35 BODY MASS INDEX (BMI) 35.0-35.9, ADULT 03/14/2017 CHLOE BALDWIN MD Ot Z79.899 OTHER [facility] (CURRENT) DRUG THERAPY 03/14/2017 CHLOE BALDWIN MD Ot Z80.3 FAMILY HISTORY OF MALIGNANT NEOPLASM OF 03/14/2017 CHLOE BALDWIN MD, Ot Z86.718 PERSONAL HISTORY OF OTHER VENOUS THROMBO 03/14/2017 SUSAN RAMOS MD, Ot K43.2 INCISIONAL HERNIA WITHOUT OBSTRUCTION OR 03/14/2017 SUSAN RAMOS MD, Ot Z01.812 ENCOUNTER FOR PREPROCEDURAL LABORATORY E 03/14/2017 SUSAN RAMOS MD, Ot Z11.2 ENCOUNTER FOR SCREENING FOR OTHER BACTER 03/22/2017 SUSAN RAMOS MD, Ot E03.9 HYPOTHYROIDISM, UNSPECIFIED 03/22/2017 SUSAN RAMOS MD Ot E11.9 TYPE 2 DIABETES MELLITUS WITHOUT COMPLIC 03/22/2017 SUSAN RAMOS MD, Ot F17.210 NICOTINE DEPENDENCE, CIGARETTES, UNCOMPL 03/22/2017 SUSAN RAMOS MD, Ot F32.9 MAJOR DEPRESSIVE DISORDER, SINGLE EPISOD 03/22/2017 SUSAN RAMOS MD, Ot F41.9 ANXIETY DISORDER, UNSPECIFIED 03/22/2017 SUSAN RAMOS MD Ot I10 ESSENTIAL (PRIMARY) HYPERTENSION 03/22/2017 SUSAN RAMOS MD, Ot K43.2 INCISIONAL HERNIA WITHOUT OBSTRUCTION OR 03/22/2017 SUSAN RAMOS MD Ot Z79.84 [facility] (CURRENT) USE OF ORAL HYPOGLYC 03/22/2017 SUSAN RAMOS MD Ot Z79.899 OTHER CORROSION CONTROL FITTER (CURRENT) DRUG THERAPY 03/25/2017 SUSAN RAMOS MD, Ot E03.9 HYPOTHYROIDISM, UNSPECIFIED 03/25/2017 SUSAN RAMOS MD, Ot E11.9 TYPE 2 DIABETES MELLITUS WITHOUT COMPLIC 03/25/2017 SUSAN RAMOS MD Ot F17.210 NICOTINE DEPENDENCE, CIGARETTES, UNCOMPL 03/25/2017 SUSAN RAMOS MD, Ot F32.9 MAJOR DEPRESSIVE DISORDER, SINGLE EPISOD 03/25/2017 SUSAN RAMOS MD Ot F41.9 ANXIETY DISORDER, UNSPECIFIED 03/25/2017 SUSAN RAMOS MD Ot I10 ESSENTIAL (PRIMARY) HYPERTENSION 03/25/2017 SUSAN RAMOS MD, Ot K43.2 INCISIONAL HERNIA WITHOUT OBSTRUCTION OR 03/25/2017 SUSAN RAMOS MD Ot Z79.84 CORROSION CONTROL FITTER (CURRENT) USE OF ORAL HYPOGLYC 03/25/2017 SUSAN RAMOS MD Ot Z79.899 OTHER [facility] (CURRENT) DRUG THERAPY 04/17/2017 AUSTIN RAMIREZ APRN Ot E11.621 TYPE 2 DIABETES MELLITUS WITH FOOT ULCER 04/17/2017 AUSTIN RAMIREZ BARREL STAVE INSPECTOR Ot L97.512 NON-PRS CHRONIC ULCER OTH PRT RIGHT FOOT 04/17/2017 AUSTIN RAMIREZ APRN Ot L97.522 NON-PRS CHRONIC ULCER OTH PRT LEFT FOOT 04/28/2017 NATHALY DONNELLY, NEY Nolan Ot D72.829 ELEVATED WHITE BLOOD CELL COUNT, UNSPECI 04/28/2017 NEY ANDERSEN MD Ot E03.9 HYPOTHYROIDISM, UNSPECIFIED 04/28/2017 NEY ANDERSEN MD Ot E11.9 TYPE 2 DIABETES MELLITUS WITHOUT COMPLIC 04/28/2017 NEY ANDERSEN MD, Ot E66.9 OBESITY, UNSPECIFIED 04/28/2017 NEY ANDERSEN MD, Ot F17.210 NICOTINE DEPENDENCE, CIGARETTES, UNCOMPL 04/28/2017 NEY ANDERSEN MD, Ot M19.90 UNSPECIFIED OSTEOARTHRITIS, UNSPECIFIED 04/28/2017 NEY ANDERSEN MD, Ot R79.82 ELEVATED C-REACTIVE PROTEIN (CRP) 04/28/2017 NEY ANDERSEN MD, Ot R79.89 OTHER SPECIFIED ABNORMAL FINDINGS OF BLO 04/28/2017 NEY ANDERSEN MD, Ot Z68.35 BODY MASS INDEX (BMI) 35.0-35.9, ADULT 04/28/2017 NEY ANDERSEN MD, Ot Z79.899 OTHER [facility] (CURRENT) DRUG THERAPY 04/28/2017 NEY ANDERSEN MD, Ot Z80.3 FAMILY HISTORY OF MALIGNANT NEOPLASM OF 04/28/2017 NEY ANDERSEN MD, Ot Z86.718 PERSONAL HISTORY OF OTHER VENOUS THROMBO 04/29/2017 AUSTIN RAMIREZ BARREL STAVE INSPECTOR Ot E11.621 TYPE 2 DIABETES MELLITUS WITH FOOT ULCER 04/29/2017 AUSTIN RAMIREZ BARREL STAVE INSPECTOR Ot L97.512 NON-PRS CHRONIC ULCER OTH PRT RIGHT FOOT 04/29/2017 AUSTIN RAMIREZ BARREL STAVE INSPECTOR Ot L97.522 NON-PRS CHRONIC ULCER OTH PRT LEFT FOOT 06/26/2017 AUSTIN RAMIREZ BARREL STAVE INSPECTOR Ot L97.522 NON-PRS CHRONIC ULCER OTH PRT LEFT FOOT 07/17/2017 AUSTIN RAMIREZ BARREL STAVE INSPECTOR Ot E11.621 TYPE 2 DIABETES MELLITUS WITH FOOT ULCER 07/17/2017 AUSTIN RAMIREZ BARREL STAVE INSPECTOR Ot L97.511 NON-PRS CHRONIC ULCER OTH PRT R FOOT JESSICA 07/17/2017 AUSTIN RAMIREZ BARREL STAVE INSPECTOR Ot L97.522 NON-PRS CHRONIC ULCER OTH PRT LEFT FOOT 07/22/2017 CHLOE BALDWIN MD, Ot D72.829 ELEVATED WHITE BLOOD CELL COUNT, UNSPECI 07/22/2017 CHLOE BALDWIN MD, Ot E03.9 HYPOTHYROIDISM, UNSPECIFIED 07/22/2017 CHLOE BALDWIN MD, Ot E11.9 TYPE 2 DIABETES MELLITUS WITHOUT COMPLIC 07/22/2017 CHLOE BALDWIN MD, Ot E66.9 OBESITY, UNSPECIFIED 07/22/2017 CHLOE BALDWIN MD, Ot F17.210 NICOTINE DEPENDENCE, CIGARETTES, UNCOMPL 07/22/2017 CHLOE BALDWIN MD, Ot M19.90 UNSPECIFIED OSTEOARTHRITIS, UNSPECIFIED 07/22/2017 CHLOE BALDWIN MD, Ot R79.82 ELEVATED C-REACTIVE PROTEIN (CRP) 07/22/2017 CHLOE BALDWIN MD, Ot R79.89 OTHER SPECIFIED ABNORMAL FINDINGS OF BLO 07/22/2017 CHLOE BALDWIN MD, Ot Z68.35 BODY MASS INDEX (BMI) 35.0-35.9, ADULT 07/22/2017 CHLOE BALDWIN MD, Ot Z79.899 OTHER CORROSION CONTROL FITTER (CURRENT) DRUG THERAPY 07/22/2017 CHLOE BALDWIN MD, Ot Z80.3 FAMILY HISTORY OF MALIGNANT NEOPLASM OF 07/22/2017 CHLOE BALDWIN MD, Ot Z86.718 PERSONAL HISTORY OF OTHER VENOUS THROMBO 07/22/2017 SUSAN RAMOS MD, Ot K46.9 UNSPECIFIED ABDOMINAL HERNIA WITHOUT OBS 07/22/2017 SUSAN RAMOS MD, Ot Z01.812 ENCOUNTER FOR PREPROCEDURAL LABORATORY E 07/24/2017 AUSTIN RAMIREZ APRN Ot E11.621 TYPE 2 DIABETES MELLITUS WITH FOOT ULCER 07/24/2017 AUSTIN RAMIREZ BARREL STAVE INSPECTOR Ot L97.511 NON-PRS CHRONIC ULCER OTH PRT R FOOT JESSICA 07/24/2017 AUSTIN RAMIREZ BARREL STAVE INSPECTOR Ot L97.522 NON-PRS CHRONIC ULCER OTH PRT LEFT FOOT 07/25/2017 SUSAN RAMOS MD, Ot E03.9 HYPOTHYROIDISM, UNSPECIFIED 07/25/2017 SUSAN RAMOS MD, Ot E11.43 TYPE 2 DIABETES W DIABETIC AUTONOMIC (PO 07/25/2017 SUSAN RAMOS MD, Ot E78.00 PURE HYPERCHOLESTEROLEMIA, UNSPECIFIED 07/25/2017 SUSAN RAMOS MD, Ot F17.210 NICOTINE DEPENDENCE, CIGARETTES, UNCOMPL 07/25/2017 SUSAN RAMOS MD, Ot F32.9 MAJOR DEPRESSIVE DISORDER, SINGLE EPISOD 07/25/2017 SUSAN RAMOS MD, Ot 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 07/25/2017 SUSAN RAMOS MD, Ot I10 ESSENTIAL (PRIMARY) HYPERTENSION 07/25/2017 SUSAN RAMOS MD, Ot K21.9 GASTRO-ESOPHAGEAL REFLUX DISEASE WITHOUT 07/25/2017 SUSAN RAMOS MD, Ot K43.2 INCISIONAL HERNIA WITHOUT OBSTRUCTION OR 07/25/2017 SUSAN ARMOS MD, Ot Z79.899 OTHER [facility] (CURRENT) DRUG THERAPY 07/25/2017 SUSAN RAMOS MD, Ot Z86.711 PERSONAL HISTORY OF PULMONARY EMBOLISM 07/25/2017 SUSAN RAMOS MD, Ot Z86.718 PERSONAL HISTORY OF OTHER VENOUS THROMBO 07/26/2017 ASHLEYAUSTIN BARREL STAVE INSPECTOR Ot E11.621 TYPE 2 DIABETES MELLITUS WITH FOOT ULCER 07/26/2017 ASHLEYAUSTIN BARREL STAVE INSPECTOR Ot L97.511 NON-PRS CHRONIC ULCER OTH PRT R FOOT JESSICA 07/26/2017 ASHLEY AUSTIN R BARREL STAVE INSPECTOR Ot L97.522 NON-PRS CHRONIC ULCER OTH PRT LEFT FOOT 07/30/2017 ASHLEY AUSTIN R BARREL STAVE INSPECTOR Ot E11.621 TYPE 2 DIABETES MELLITUS WITH FOOT ULCER 07/30/2017 ASHLEYAUSTIN R BARREL STAVE INSPECTOR Ot L97.511 NON-PRS CHRONIC ULCER OTH PRT R FOOT JESSICA 07/30/2017 ASHLEY AUSTIN R BARREL STAVE INSPECTOR Ot L97.522 NON-PRS CHRONIC ULCER OTH PRT LEFT FOOT 08/02/2017 ASHLEY AUSTIN R BARREL STAVE INSPECTOR Ot E11.621 TYPE 2 DIABETES MELLITUS WITH FOOT ULCER 08/02/2017 ASHLEY AUSTIN R BARREL STAVE INSPECTOR Ot L97.511 NON-PRS CHRONIC ULCER OTH PRT R FOOT JESSICA 08/02/2017 ASHLEY AUSTIN R BARREL STAVE INSPECTOR Ot L97.522 NON-PRS CHRONIC ULCER OTH PRT LEFT FOOT 08/12/2017 ASHLEYAUSTIN R BARREL STAVE INSPECTOR Ot E11.621 TYPE 2 DIABETES MELLITUS WITH FOOT ULCER 08/12/2017 AUSTIN RAMIREZ R BARREL STAVE INSPECTOR Ot L97.511 NON-PRS CHRONIC ULCER OTH PRT R FOOT JESSICA 08/12/2017 ASHLEY AUSTIN R BARREL STAVE INSPECTOR Ot L97.522 NON-PRS CHRONIC ULCER OTH PRT LEFT FOOT 11/12/2017 Ot M75.01 ADHESIVE CAPSULITIS OF RIGHT SHOULDER 11/12/2017 Ot Z95.828 PRESENCE OF OTHER VASCULAR IMPLANTS AND 11/12/2017 NEY ANDERSEN MD Ot Z12.31 ENCNTR SCREEN MAMMOGRAM FOR MALIGNANT NE 11/12/2017 NEY ANDERSEN MD Ot Z80.3 FAMILY HISTORY OF MALIGNANT NEOPLASM OF 11/12/2017 NEY ANDERSEN MD Ot K76.0 FATTY (CHANGE OF) LIVER, NOT ELSEWHERE C 11/12/2017 GEO LOUISE MD Ot R11.2 NAUSEA WITH VOMITING, UNSPECIFIED 11/12/2017 NATHALY DONNELLY, NEY Nolan Ot Z12.31 ENCNTR SCREEN MAMMOGRAM FOR MALIGNANT NE 11/12/2017 GEO LOUISE MD Ot R10.2 PELVIC AND PERINEAL PAIN 11/12/2017 AUSTIN RAMIREZ BARREL STAVE INSPECTOR Ot E11.621 TYPE 2 DIABETES MELLITUS WITH FOOT ULCER 11/12/2017 AUSTIN RAMIREZ BARREL STAVE INSPECTOR Ot L97.511 NON-PRS CHRONIC ULCER OTH PRT R FOOT JESSICA 11/12/2017 ASHLEY AUSTIN R BARREL STAVE INSPECTOR Ot L97.522 NON-PRS CHRONIC ULCER OTH PRT LEFT FOOT 11/12/2017 AUSTIN RAMIREZ R BARREL STAVE INSPECTOR Ot E11.621 TYPE 2 DIABETES MELLITUS WITH FOOT ULCER 11/12/2017 AUSTIN RAMIREZ R BARREL STAVE INSPECTOR Ot L97.511 NON-PRS CHRONIC ULCER OTH PRT R FOOT JESSICA 11/12/2017 AUSTIN RAMIREZ R BARREL STAVE INSPECTOR Ot L97.522 NON-PRS CHRONIC ULCER OTH PRT LEFT FOOT 11/12/2017 AUSTIN RAMIREZ R BARREL STAVE INSPECTOR Ot E11.621 TYPE 2 DIABETES MELLITUS WITH FOOT ULCER 11/12/2017 AUSTIN RAMIREZ R BARREL STAVE INSPECTOR Ot L97.511 NON-PRS CHRONIC ULCER OTH PRT R FOOT JESSICA 11/12/2017 AUSTIN RAMIREZ R BARREL STAVE INSPECTOR Ot L97.522 NON-PRS CHRONIC ULCER OTH PRT LEFT FOOT 11/20/2017 AUSTIN RAMIREZ BARREL STAVE INSPECTOR Ot E11.621 TYPE 2 DIABETES MELLITUS WITH FOOT ULCER 11/20/2017 AUSTIN RAMIREZ BARREL STAVE INSPECTOR Ot L97.512 NON-PRS CHRONIC ULCER OTH PRT RIGHT FOOT 11/20/2017 ASHLEY AUSTIN R BARREL STAVE INSPECTOR Ot E11.621 TYPE 2 DIABETES MELLITUS WITH FOOT ULCER 11/20/2017 ASHLEY AUSTIN R BARREL STAVE INSPECTOR Ot L97.512 NON-PRS CHRONIC ULCER OTH PRT RIGHT FOOT 11/27/2017 AUSTIN RAMIREZ R BARREL STAVE INSPECTOR Ot E11.621 TYPE 2 DIABETES MELLITUS WITH FOOT ULCER 11/27/2017 AUSTIN RAMIREZ R BARREL STAVE INSPECTOR Ot L97.512 NON-PRS CHRONIC ULCER OTH PRT RIGHT FOOT 12/03/2017 GEO LOUISE MD Ot Z12.31 ENCNTR SCREEN MAMMOGRAM FOR MALIGNANT NE 12/03/2017 ASHLEY, AUSTIN R BARREL STAVE INSPECTOR Ot E11.621 TYPE 2 DIABETES MELLITUS WITH FOOT ULCER 12/03/2017 AUSTIN RAMIREZ R BARREL STAVE INSPECTOR Ot L97.512 NON-PRS CHRONIC ULCER OTH PRT RIGHT FOOT 12/04/2017 AUSTIN RAMIREZ R BARREL STAVE INSPECTOR Ot E11.621 TYPE 2 DIABETES MELLITUS WITH FOOT ULCER 12/04/2017 AUSTIN RAMIREZ R BARREL STAVE INSPECTOR Ot L97.512 NON-PRS CHRONIC ULCER OTH PRT RIGHT FOOT 12/06/2017 ASPEN DONNELLY, GEO Carmona Ot Z12.31 ENCNTR SCREEN MAMMOGRAM FOR MALIGNANT NE 12/13/2017 AUSTIN RAMIREZ R BARREL STAVE INSPECTOR Ot E11.621 TYPE 2 DIABETES MELLITUS WITH FOOT ULCER 12/13/2017 AUSTIN RAMIREZ R BARREL STAVE INSPECTOR Ot L97.512 NON-PRS CHRONIC ULCER OTH PRT RIGHT FOOT 12/17/2017 AUSTIN RAMIREZ R BARREL STAVE INSPECTOR Ot E11.621 TYPE 2 DIABETES MELLITUS WITH FOOT ULCER 12/17/2017 AUSTIN RAMIREZ R BARREL STAVE INSPECTOR Ot L97.512 NON-PRS CHRONIC ULCER OTH PRT RIGHT FOOT 12/19/2017 AUSTIN RAMIREZ R BARREL STAVE INSPECTOR Ot E11.621 TYPE 2 DIABETES MELLITUS WITH FOOT ULCER 12/19/2017 ASHLEY AUSTIN R BARREL STAVE INSPECTOR Ot L97.512 NON-PRS CHRONIC ULCER OTH PRT RIGHT FOOT 12/25/2017 AUSTIN RAMIREZ R BARREL STAVE INSPECTOR Ot E11.621 TYPE 2 DIABETES MELLITUS WITH FOOT ULCER 12/25/2017 AUSTIN RAMIREZ R BARREL STAVE INSPECTOR Ot L97.512 NON-PRS CHRONIC ULCER OTH PRT RIGHT FOOT 12/27/2017 AUSTIN RAMIREZ R BARREL STAVE INSPECTOR Ot E11.621 TYPE 2 DIABETES MELLITUS WITH FOOT ULCER 12/27/2017 AUSTIN RAMIREZ R BARREL STAVE INSPECTOR Ot L97.512 NON-PRS CHRONIC ULCER OTH PRT RIGHT FOOT 12/27/2017 AUSTIN RAMIREZ R BARREL STAVE INSPECTOR Ot E11.621 TYPE 2 DIABETES MELLITUS WITH FOOT ULCER 12/27/2017 AUSTIN RAMIREZ R BARREL STAVE INSPECTOR Ot L97.512 NON-PRS CHRONIC ULCER OTH PRT RIGHT FOOT 01/03/2018 AUSTIN RAMIREZ R BARREL STAVE INSPECTOR Ot E11.621 TYPE 2 DIABETES MELLITUS WITH FOOT ULCER 01/03/2018 AUSTIN RAMIREZ R BARREL STAVE INSPECTOR Ot L97.512 NON-PRS CHRONIC ULCER OTH PRT RIGHT FOOT 01/03/2018 GEO LOUISE MD Ot Z12.31 ENCNTR SCREEN MAMMOGRAM FOR MALIGNANT NE 01/06/2018 GEO LOUISE MD Ot Z12.31 ENCNTR SCREEN MAMMOGRAM FOR MALIGNANT NE 01/22/2018 CHLOE BALDWIN MD, Ot 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 (HEMORRHAGIC) THROMBOCYTHEMIA 01/22/2018 CHLOE BALDWIN MD Ot D72.829 ELEVATED WHITE BLOOD CELL COUNT, UNSPECI 01/22/2018 CHLOE BALDWIN MD Ot E03.9 HYPOTHYROIDISM, UNSPECIFIED 01/22/2018 CHLOE BALDWIN MD Ot E11.9 TYPE 2 DIABETES MELLITUS WITHOUT COMPLIC 01/22/2018 CHLOE BALDWIN MD Ot E66.9 OBESITY, UNSPECIFIED 01/22/2018 CHLOE BALDWIN MD Ot E78.5 HYPERLIPIDEMIA, UNSPECIFIED 01/22/2018 CHLOE BALDWIN MD Ot I10 ESSENTIAL (PRIMARY) HYPERTENSION 01/22/2018 CHLOE BALDWIN MD Ot M19.90 UNSPECIFIED OSTEOARTHRITIS, UNSPECIFIED 01/22/2018 CHLOE BALDWIN MD Ot R94.5 ABNORMAL RESULTS OF LIVER FUNCTION STUDI 01/22/2018 CHLOE BALDWIN MD Ot Z68.30 BODY MASS INDEX (BMI) 30.0-30.9, ADULT 01/22/2018 CHLOE BALDWIN MD Ot Z79.4 CORROSION CONTROL FITTER (CURRENT) USE OF INSULIN 01/22/2018 CHLOE BALDWIN MD Ot Z79.899 OTHER CORROSION CONTROL FITTER (CURRENT) DRUG THERAPY 01/22/2018 CHLOE BALDWIN MD Ot Z80.3 FAMILY HISTORY OF MALIGNANT NEOPLASM OF 01/22/2018 CHLOE BALDWIN MD Ot Z86.718 PERSONAL HISTORY OF OTHER VENOUS THROMBO 01/31/2018 CHLOE BALDWIN MD, Ot 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 (HEMORRHAGIC) THROMBOCYTHEMIA 01/31/2018 CHLOE BALDWIN MD Ot D72.829 ELEVATED WHITE BLOOD CELL COUNT, UNSPECI 01/31/2018 CHLOE BALDWIN MD Ot E03.9 HYPOTHYROIDISM, UNSPECIFIED 01/31/2018 CHLOE BALDWIN MD Ot E11.9 TYPE 2 DIABETES MELLITUS WITHOUT COMPLIC 01/31/2018 CHLOE BALDWIN MD Ot E66.9 OBESITY, UNSPECIFIED 01/31/2018 CHLOE BALDWIN MD Ot E78.5 HYPERLIPIDEMIA, UNSPECIFIED 01/31/2018 CHLOE BALDWIN MD Ot I10 ESSENTIAL (PRIMARY) HYPERTENSION 01/31/2018 CHLOE BALDWIN MD, Ot M19.90 UNSPECIFIED OSTEOARTHRITIS, UNSPECIFIED 01/31/2018 CHLOE BALDWIN MD, Ot R94.5 ABNORMAL RESULTS OF LIVER FUNCTION STUDI 01/31/2018 CHLOE BALDWIN MD, Ot Z68.30 BODY MASS INDEX (BMI) 30.0-30.9, ADULT 01/31/2018 CHLOE BALDWIN MD, Ot Z79.4 [facility] (CURRENT) USE OF INSULIN 01/31/2018 CHLOE BALDWIN MD, Ot Z79.899 OTHER [facility] (CURRENT) DRUG THERAPY 01/31/2018 CHLOE BALDWIN MD, Ot Z80.3 FAMILY HISTORY OF MALIGNANT NEOPLASM OF 01/31/2018 CHLOE BALDWIN MD, Ot Z86.718 PERSONAL HISTORY OF OTHER VENOUS THROMBO 02/06/2018 AUSTIN RAMIREZ APRN Ot E11.621 TYPE 2 DIABETES MELLITUS WITH FOOT ULCER 02/06/2018 AUSTIN RAMIREZ APRN Ot L97.512 NON-PRS CHRONIC ULCER OTH PRT RIGHT FOOT 02/10/2018 AUSTIN RAMIREZ APRN Ot E11.621 TYPE 2 DIABETES MELLITUS WITH FOOT ULCER 02/10/2018 AUSTIN RAMIREZ APRN Ot L97.512 NON-PRS CHRONIC ULCER OTH PRT RIGHT FOOT 02/13/2018 AUSTIN RAMIREZ APRN Ot E11.621 TYPE 2 DIABETES MELLITUS WITH FOOT ULCER 02/13/2018 AUSTIN RAMIREZ APRN Ot L97.512 NON-PRS CHRONIC ULCER OTH PRT RIGHT FOOT 02/19/2018 AUSTIN RAMIREZ APRN Ot E11.621 TYPE 2 DIABETES MELLITUS WITH FOOT ULCER 02/19/2018 AUSTIN RAMIREZ APRN Ot L97.512 NON-PRS CHRONIC ULCER OTH PRT RIGHT FOOT 02/21/2018 GEO LOUISE MD Ot F17.210 NICOTINE DEPENDENCE, CIGARETTES, UNCOMPL 02/21/2018 GEO LOUISE MD Ot R05 COUGH 02/26/2018 AUSTIN RAMIREZ APRN Ot E11.621 TYPE 2 DIABETES MELLITUS WITH FOOT ULCER 02/26/2018 AUSTIN RAMIREZ APRN Ot L97.512 NON-PRS CHRONIC ULCER OTH PRT RIGHT FOOT 02/26/2018 AUSTIN RAMIREZ APRN Ot E11.621 TYPE 2 DIABETES MELLITUS WITH FOOT ULCER 02/26/2018 AUSTIN RAMIREZ APRN Ot L97.512 NON-PRS CHRONIC ULCER OTH PRT RIGHT FOOT 03/04/2018 AUSTIN RAMIREZ APRN Ot E11.621 TYPE 2 DIABETES MELLITUS WITH FOOT ULCER 03/04/2018 AUSTIN RAMIREZ APRN Ot L97.512 NON-PRS CHRONIC ULCER OTH PRT RIGHT FOOT 03/05/2018 CHLOE BALDWIN MD, Ot 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 (HEMORRHAGIC) THROMBOCYTHEMIA 03/05/2018 CHLOE BALDWIN MD Ot D72.829 ELEVATED WHITE BLOOD CELL COUNT, UNSPECI 03/05/2018 CHLOE BALDWIN MD Ot E03.9 HYPOTHYROIDISM, UNSPECIFIED 03/05/2018 CHLOE BALDWIN MD Ot E11.9 TYPE 2 DIABETES MELLITUS WITHOUT COMPLIC 03/05/2018 CHLOE BALDWIN MD Ot E66.9 OBESITY, UNSPECIFIED 03/05/2018 CHLOE BALDWIN MD, Ot E78.5 HYPERLIPIDEMIA, UNSPECIFIED 03/05/2018 CHLOE BALDWIN MD Ot I10 ESSENTIAL (PRIMARY) HYPERTENSION 03/05/2018 CHLOE BALDWIN MD Ot M19.90 UNSPECIFIED OSTEOARTHRITIS, UNSPECIFIED 03/05/2018 CHLOE BALDWIN MD Ot R94.5 ABNORMAL RESULTS OF LIVER FUNCTION STUDI 03/05/2018 CHLOE BALDWIN MD Ot Z68.30 BODY MASS INDEX (BMI) 30.0-30.9, ADULT 03/05/2018 CHLOE BALDWIN MD Ot Z79.4 CORROSION CONTROL FITTER (CURRENT) USE OF INSULIN 03/05/2018 CHLOE BALDWIN MD Ot Z79.899 OTHER CORROSION CONTROL FITTER (CURRENT) DRUG THERAPY 03/05/2018 CHLOE BALDWIN MD Ot Z80.3 FAMILY HISTORY OF MALIGNANT NEOPLASM OF 03/05/2018 CHLOE BALDWIN MD Ot Z86.718 PERSONAL HISTORY OF OTHER VENOUS THROMBO 03/05/2018 AUSTIN RAMIREZ APRN Ot E11.621 TYPE 2 DIABETES MELLITUS WITH FOOT ULCER 03/05/2018 AUSTIN RAMIREZ APRN Ot L97.512 NON-PRS CHRONIC ULCER OTH PRT RIGHT FOOT 03/07/2018 AUSTIN RAMIREZ APRN Ot E11.621 TYPE 2 DIABETES MELLITUS WITH FOOT ULCER 03/07/2018 AUSTIN RAMIREZ APRN Ot L97.512 NON-PRS CHRONIC ULCER OTH PRT RIGHT FOOT 03/10/2018 AUSTIN RAMIREZ APRN Ot E11.621 TYPE 2 DIABETES MELLITUS WITH FOOT ULCER 03/10/2018 AUSTIN RAMIREZ APRN Ot L97.512 NON-PRS CHRONIC ULCER OTH PRT RIGHT FOOT 03/12/2018 AUSTIN RAMIREZ APRN Ot E11.621 TYPE 2 DIABETES MELLITUS WITH FOOT ULCER 03/12/2018 AUSTIN RAMIREZ APRN Ot L97.512 NON-PRS CHRONIC ULCER OTH PRT RIGHT FOOT 03/12/2018 GEO LOUISE MD Ot F17.210 NICOTINE DEPENDENCE, CIGARETTES, UNCOMPL 03/12/2018 GEO LOUISE MD Ot R05 COUGH 03/12/2018 AUSTIN RAMIREZ APRN Ot E11.621 TYPE 2 DIABETES MELLITUS WITH FOOT ULCER 03/12/2018 AUSTIN RAMIREZ APRN Ot L03.115 CELLULITIS OF RIGHT LOWER LIMB 03/12/2018 AUSTIN RAMIREZ APRN Ot L97.512 NON-PRS CHRONIC ULCER OTH PRT RIGHT FOOT 03/13/2018 CHLOE BALDWIN MD Ot 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 (HEMORRHAGIC) THROMBOCYTHEMIA 03/13/2018 CHLOE BALDWIN MD Ot D72.829 ELEVATED WHITE BLOOD CELL COUNT, UNSPECI 03/13/2018 CHLOE BALDWIN MD Ot E03.9 HYPOTHYROIDISM, UNSPECIFIED 03/13/2018 CHLOE BALDWIN MD Ot E11.9 TYPE 2 DIABETES MELLITUS WITHOUT COMPLIC 03/13/2018 CHLOE BALDWIN MD Ot E66.9 OBESITY, UNSPECIFIED 03/13/2018 CHLOE BALDWIN MD Ot E78.5 HYPERLIPIDEMIA, UNSPECIFIED 03/13/2018 CHLOE BALDWIN MD Ot I10 ESSENTIAL (PRIMARY) HYPERTENSION 03/13/2018 CHLOE BALDWIN MD Ot M19.90 UNSPECIFIED OSTEOARTHRITIS, UNSPECIFIED 03/13/2018 CHLOE BALDWIN MD Ot R94.5 ABNORMAL RESULTS OF LIVER FUNCTION STUDI 03/13/2018 CHLOE BALDWIN MD Ot Z68.30 BODY MASS INDEX (BMI) 30.0-30.9, ADULT 03/13/2018 CHLOE BALDWIN MD Ot Z79.4 [facility] (CURRENT) USE OF INSULIN 03/13/2018 CHLOE BALDWIN MD Ot Z79.899 OTHER CORROSION CONTROL FITTER (CURRENT) DRUG THERAPY 03/13/2018 CHLOE BALDWIN MD Ot Z80.3 FAMILY HISTORY OF MALIGNANT NEOPLASM OF 03/13/2018 CHLOE BALDWIN MD Ot Z86.718 PERSONAL HISTORY OF OTHER VENOUS THROMBO 03/13/2018 YING GENAO MD Ot M65.332 TRIGGER FINGER, LEFT MIDDLE FINGER 03/13/2018 YING GENAO MD Ot Z01.818 ENCOUNTER FOR OTHER PREPROCEDURAL EXAMIN 03/14/2018 AUSTIN RAMIREZ APRN Ot E11.621 TYPE 2 DIABETES MELLITUS WITH FOOT ULCER 03/14/2018 AUSTIN RAMIREZ APRN Ot L97.512 NON-PRS CHRONIC ULCER OTH PRT RIGHT FOOT 03/14/2018 YING GENAO MD Ot M65.332 TRIGGER FINGER, LEFT MIDDLE FINGER 03/14/2018 YING GENAO MD Ot Z01.818 ENCOUNTER FOR OTHER PREPROCEDURAL EXAMIN 03/14/2018 YING GENAO MD Ot M65.332 TRIGGER FINGER, LEFT MIDDLE FINGER 03/14/2018 YING GENAO MD Ot Z01.818 ENCOUNTER FOR OTHER PREPROCEDURAL EXAMIN 03/18/2018 AUSTIN RAMIREZ APRN Ot E11.621 TYPE 2 DIABETES MELLITUS WITH FOOT ULCER 03/18/2018 AUSTIN RAMIREZ APRN Ot L97.512 NON-PRS CHRONIC ULCER OTH PRT RIGHT FOOT 03/19/2018 YING GENAO MD Ot M65.332 TRIGGER FINGER, LEFT MIDDLE FINGER 03/19/2018 YING GENAO MD Ot Z01.818 ENCOUNTER FOR OTHER PREPROCEDURAL EXAMIN 03/19/2018 YING GENAO MD Ot E11.9 TYPE 2 DIABETES MELLITUS WITHOUT COMPLIC 03/19/2018 YING GENAO MD Ot I10 ESSENTIAL (PRIMARY) HYPERTENSION 03/19/2018 YING GENAO MD Ot M65.332 TRIGGER FINGER, LEFT MIDDLE FINGER 03/19/2018 YING GENAO MD Ot Z79.84 [facility] (CURRENT) USE OF ORAL HYPOGLYC 03/19/2018 YING GENAO MD Ot Z79.899 OTHER [facility] (CURRENT) DRUG THERAPY 03/19/2018 YING GENAO MD Ot Z86.718 PERSONAL HISTORY OF OTHER VENOUS THROMBO 03/20/2018 AUSTIN RAMIREZ APRN Ot E11.621 TYPE 2 DIABETES MELLITUS WITH FOOT ULCER 03/20/2018 AUSTIN RAMIREZ APRN Ot L03.115 CELLULITIS OF RIGHT LOWER LIMB 03/20/2018 ASHLEY, AUSTIN R BARREL STAVE INSPECTOR Ot L97.512 NON-PRS CHRONIC ULCER OTH PRT RIGHT FOOT 03/21/2018 GEO LOUISE MD Ot F17.210 NICOTINE DEPENDENCE, CIGARETTES, UNCOMPL 03/21/2018 GEO LOUISE MD Ot R05 COUGH 03/21/2018 AUSTIN RAMIREZ APRN Ot E11.621 TYPE 2 DIABETES MELLITUS WITH FOOT ULCER 03/21/2018 AUSTIN RAMIREZ APRN Ot L97.512 NON-PRS CHRONIC ULCER OTH PRT RIGHT FOOT 03/21/2018 YING GENAO MD Ot E11.9 TYPE 2 DIABETES MELLITUS WITHOUT COMPLIC 03/21/2018 YING GENAO MD Ot I10 ESSENTIAL (PRIMARY) HYPERTENSION 03/21/2018 YING GENAO MD Ot M65.332 TRIGGER FINGER, LEFT MIDDLE FINGER 03/21/2018 IYNG GENAO MD Ot Z79.84 CORROSION CONTROL FITTER (CURRENT) USE OF ORAL HYPOGLYC 03/21/2018 YING GENAO MD Ot Z79.899 OTHER [facility] (CURRENT) DRUG THERAPY 03/21/2018 YING GENAO MD Ot Z86.718 PERSONAL HISTORY OF OTHER VENOUS THROMBO 03/26/2018 AUSTIN RAMIREZ APRN Ot E11.621 TYPE 2 DIABETES MELLITUS WITH FOOT ULCER 03/26/2018 AUSTIN RAMIREZ APRN Ot L97.512 NON-PRS CHRONIC ULCER OTH PRT RIGHT FOOT 03/26/2018 AUSTIN RAMIREZ APRN Ot E11.621 TYPE 2 DIABETES MELLITUS WITH FOOT ULCER 03/26/2018 AUSTIN RAMIREZ APRN Ot L97.512 NON-PRS CHRONIC ULCER OTH PRT RIGHT FOOT 03/26/2018 AUSTIN RAMIREZ BARREL STAVE INSPECTOR Ot E11.621 TYPE 2 DIABETES MELLITUS WITH FOOT ULCER 03/26/2018 AUSTIN RAMIREZ BARREL STAVE INSPECTOR Ot L03.115 CELLULITIS OF RIGHT LOWER LIMB 03/26/2018 AUSTIN RAMIREZ APRN Ot L97.512 NON-PRS CHRONIC ULCER OTH PRT RIGHT FOOT 03/28/2018 AUSTIN RAMIREZ BARREL STAVE INSPECTOR Ot E11.621 TYPE 2 DIABETES MELLITUS WITH FOOT ULCER 03/28/2018 AUSTIN RAMIREZ BARREL STAVE INSPECTOR Ot L97.512 NON-PRS CHRONIC ULCER OTH PRT RIGHT FOOT 04/03/2018 ASHLEY, AUSTIN R BARREL STAVE INSPECTOR Ot E11.621 TYPE 2 DIABETES MELLITUS WITH FOOT ULCER 04/03/2018 AUSTIN RAMIREZ R BARREL STAVE INSPECTOR Ot L03.115 CELLULITIS OF RIGHT LOWER LIMB 04/03/2018 AUSTIN RAMIREZ R BARREL STAVE INSPECTOR Ot L97.512 NON-PRS CHRONIC ULCER OTH PRT RIGHT FOOT 04/04/2018 AUSTIN RAMIREZ R [employer] STAVE INSPECTOR Ot E11.621 TYPE 2 DIABETES MELLITUS WITH FOOT ULCER 04/04/2018 AUSTIN RAMIREZ R [employer]REL STAVE INSPECTOR Ot L97.512 NON-PRS CHRONIC ULCER OTH PRT RIGHT FOOT 04/04/2018 AUSTIN RAMIREZ R [employer]REL STAVE INSPECTOR Ot E11.621 TYPE 2 DIABETES MELLITUS WITH FOOT ULCER 04/04/2018 ASHLEY AUSTIN R [employer] ST[employer] INSPECTOR Ot L97.512 NON-PRS CHRONIC ULCER OTH PRT RIGHT FOOT 04/04/2018 AUSTIN RAMIREZ R [employer] ST[employer] INSPECTOR Ot E11.621 TYPE 2 DIABETES MELLITUS WITH FOOT ULCER 04/04/2018 AUSTIN RAMIREZ R [employer] STAVE INSPECTOR Ot L97.512 NON-PRS CHRONIC ULCER OTH PRT RIGHT FOOT 04/07/2018 AUSTIN RAMIREZ R [employer] ST[employer] INSPECTOR Ot E11.621 TYPE 2 DIABETES MELLITUS WITH FOOT ULCER 04/07/2018 AUSTIN RAMIREZ R [employer] ST[employer] INSPECTOR Ot L97.512 NON-PRS CHRONIC ULCER OTH PRT RIGHT FOOT 04/08/2018 AUSTIN RAMIREZ R [employer] ST[employer] INSPECTOR Ot E11.621 TYPE 2 DIABETES MELLITUS WITH FOOT ULCER 04/08/2018 AUSTIN RAMIREZ R [employer] STAVE INSPECTOR Ot L03.115 CELLULITIS OF RIGHT LOWER LIMB 04/08/2018 AUSTIN RAMIREZ R [employer] STAVE INSPECTOR Ot L97.512 NON-PRS CHRONIC ULCER OTH PRT RIGHT FOOT 04/11/2018 AUSTIN RAMIREZ R [employer] STAVE INSPECTOR Ot E11.621 TYPE 2 DIABETES MELLITUS WITH FOOT ULCER 04/11/2018 AUSTIN RAMIREZ R [employer]REL STAVE INSPECTOR Ot L97.512 NON-PRS CHRONIC ULCER OTH PRT RIGHT FOOT 04/11/2018 AUSTIN RAMIREZ R [employer] STAVE INSPECTOR Ot E11.621 TYPE 2 DIABETES MELLITUS WITH FOOT ULCER 04/11/2018 AUSTIN RAMIREZ R [employer] STAVE INSPECTOR Ot L03.115 CELLULITIS OF RIGHT LOWER LIMB 04/11/2018 AUSTIN RAMIREZ R [employer]REL STAVE INSPECTOR Ot L97.512 NON-PRS CHRONIC ULCER OTH PRT RIGHT FOOT 04/15/2018 AUSTIN RAMIREZ R [employer] STAVE INSPECTOR Ot E11.621 TYPE 2 DIABETES MELLITUS WITH FOOT ULCER 04/15/2018 AUSTIN RAMIREZ BAR[employer]AVE INSPECTOR Ot L03.115 CELLULITIS OF RIGHT LOWER LIMB 04/15/2018 AUSTIN RAMIREZ BAR[employer]AVE INSPECTOR Ot L97.512 NON-PRS CHRONIC ULCER OTH PRT RIGHT FOOT 04/22/2018 AUSTIN RAMIREZ BAR[employer]AVE INSPECTOR Ot E11.621 TYPE 2 DIABETES MELLITUS WITH FOOT ULCER 04/22/2018 AUSTIN RAMIREZ BAR[employer] INSPECTOR Ot L97.512 NON-PRS CHRONIC ULCER OTH PRT RIGHT FOOT 04/25/2018 AUSTIN RAMIREZ BAR[employer] INSPECTOR Ot E11.621 TYPE 2 DIABETES MELLITUS WITH FOOT ULCER 04/25/2018 AUSTIN RAMIREZ [employer] INSPECTOR Ot L03.115 CELLULITIS OF RIGHT LOWER LIMB 04/25/2018 AUSTIN RAMIREZ APRN Ot L97.512 NON-PRS CHRONIC ULCER OTH PRT RIGHT FOOT 04/25/2018 Ot M75.01 ADHESIVE CAPSULITIS OF RIGHT SHOULDER 04/25/2018 Ot Z95.828 PRESENCE OF OTHER VASCULAR IMPLANTS AND 04/25/2018 NEY ANDERSEN MD Ot Z12.31 ENCNTR SCREEN MAMMOGRAM FOR MALIGNANT NE 04/25/2018 NEY ANDERSEN MD Ot Z80.3 FAMILY HISTORY OF MALIGNANT NEOPLASM OF 04/25/2018 NEY ANDERSEN MD Ot K76.0 FATTY (CHANGE OF) LIVER, NOT ELSEWHERE C 04/25/2018 GEO LOUISE MD Ot R11.2 NAUSEA WITH VOMITING, UNSPECIFIED 04/25/2018 NEY ANDERSEN MD Ot Z12.31 ENCNTR SCREEN MAMMOGRAM FOR MALIGNANT NE 04/25/2018 GEO LOUISE MD Ot R10.2 PELVIC AND PERINEAL PAIN 04/25/2018 AUSTIN RAMIREZ [employer] INSPECTOR Ot E11.621 TYPE 2 DIABETES MELLITUS WITH FOOT ULCER 04/25/2018 AUSTIN RAMIREZ BAR[employer] INSPECTOR Ot L97.511 NON-PRS CHRONIC ULCER OTH PRT R FOOT JESSICA 04/25/2018 AUSTIN RAMIREZ BAR[employer] INSPECTOR Ot L97.522 NON-PRS CHRONIC ULCER OTH PRT LEFT FOOT 04/25/2018 AUSTIN RAMIREZ BAR[employer] INSPECTOR Ot E11.621 TYPE 2 DIABETES MELLITUS WITH FOOT ULCER 04/25/2018 AUSTIN RAMIREZ BAR[employer]AVE INSPECTOR Ot L97.511 NON-PRS CHRONIC ULCER OTH PRT R FOOT JESSICA 04/25/2018 AUSTIN RAMIREZ BAR[employer] INSPECTOR Ot L97.522 NON-PRS CHRONIC ULCER OTH PRT LEFT FOOT 04/25/2018 AUSTIN RAMIREZ BAR[employer] INSPECTOR Ot E11.621 TYPE 2 DIABETES MELLITUS WITH FOOT ULCER 04/25/2018 AUSTIN RAMIREZ BAR[employer] INSPECTOR Ot L97.511 NON-PRS CHRONIC ULCER OTH PRT R FOOT JESSICA 04/25/2018 AUSTIN RAMIREZ BAR[employer] INSPECTOR Ot L97.522 NON-PRS CHRONIC ULCER OTH PRT LEFT FOOT 04/25/2018 AUSTIN RAMIREZ BAR[employer]AVE INSPECTOR Ot E11.621 TYPE 2 DIABETES MELLITUS WITH FOOT ULCER 04/25/2018 AUSTIN RAMIREZ BARREL STAVE INSPECTOR Ot L97.512 NON-PRS CHRONIC ULCER OTH PRT RIGHT FOOT 04/25/2018 AUSTIN RAMIREZ BAR[employer] STAVE INSPECTOR Ot E11.621 TYPE 2 DIABETES MELLITUS WITH FOOT ULCER 04/25/2018 AUSTIN RAMIREZ BARREL STAVE INSPECTOR Ot L97.512 NON-PRS CHRONIC ULCER OTH PRT RIGHT FOOT 04/25/2018 AUSTIN RAMIREZ BARREL STAVE INSPECTOR Ot E11.621 TYPE 2 DIABETES MELLITUS WITH FOOT ULCER 04/25/2018 AUSTIN RAMIREZ BARREL STAVE INSPECTOR Ot L97.512 NON-PRS CHRONIC ULCER OTH PRT RIGHT FOOT 04/25/2018 AUSTIN RAMIREZ BARREL STAVE INSPECTOR Ot E11.621 TYPE 2 DIABETES MELLITUS WITH FOOT ULCER 04/25/2018 AUSTIN RAMIREZ BARREL STAVE INSPECTOR Ot L97.512 NON-PRS CHRONIC ULCER OTH PRT RIGHT FOOT 04/25/2018 GEO LOUISE MD Ot Z12.31 ENCNTR SCREEN MAMMOGRAM FOR MALIGNANT NE 04/25/2018 AUSTIN RAMIREZ BARREL STAVE INSPECTOR Ot E11.621 TYPE 2 DIABETES MELLITUS WITH FOOT ULCER 04/25/2018 AUSTIN RAMIREZ BARREL STAVE INSPECTOR Ot L97.512 NON-PRS CHRONIC ULCER OTH PRT RIGHT FOOT 04/25/2018 AUSTIN RAMIREZ BARREL STAVE INSPECTOR Ot E11.621 TYPE 2 DIABETES MELLITUS WITH FOOT ULCER 04/25/2018 AUSTIN RAMIREZ BARREL STAVE INSPECTOR Ot L97.512 NON-PRS CHRONIC ULCER OTH PRT RIGHT FOOT 04/25/2018 GEO LOUISE MD Ot F17.210 NICOTINE DEPENDENCE, CIGARETTES, UNCOMPL 04/25/2018 GEO LOUISE MD Ot R05 COUGH 04/25/2018 AUSTIN RAMIREZ BARREL STAVE INSPECTOR Ot E11.621 TYPE 2 DIABETES MELLITUS WITH FOOT ULCER 04/25/2018 AUSTIN RAMIREZ BARREL STAVE INSPECTOR Ot L97.512 NON-PRS CHRONIC ULCER OTH PRT RIGHT FOOT 04/25/2018 AUSTIN RAMIREZ BARREL STAVE INSPECTOR Ot E11.621 TYPE 2 DIABETES MELLITUS WITH FOOT ULCER 04/25/2018 AUSTIN RAMIREZ R BARREL STAVE INSPECTOR Ot L97.512 NON-PRS CHRONIC ULCER OTH PRT RIGHT FOOT 04/25/2018 AUSTIN RAMIREZ BARREL STAVE INSPECTOR Ot E11.621 TYPE 2 DIABETES MELLITUS WITH FOOT ULCER 04/25/2018 AUSTIN RAMIREZ BARREL STAVE INSPECTOR Ot L97.512 NON-PRS CHRONIC ULCER OTH PRT RIGHT FOOT 04/25/2018 AUSTIN RAMIREZ BARREL STAVE INSPECTOR Ot E11.621 TYPE 2 DIABETES MELLITUS WITH FOOT ULCER 04/25/2018 AUSTIN RAMIREZ APRN Ot L97.512 NON-PRS CHRONIC ULCER OTH PRT RIGHT FOOT 04/25/2018 CHLOE BALDWIN MD, Ot 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 (HEMORRHAGIC) THROMBOCYTHEMIA 04/25/2018 CHLOE BALDWIN MD, Ot D72.829 ELEVATED WHITE BLOOD CELL COUNT, UNSPECI 04/25/2018 CHLOE BALDWIN MD, Ot E03.9 HYPOTHYROIDISM, UNSPECIFIED 04/25/2018 CHLOE BALDWIN MD Ot E11.9 TYPE 2 DIABETES MELLITUS WITHOUT COMPLIC 04/25/2018 CHLOE BALDWIN MD, Ot E66.9 OBESITY, UNSPECIFIED 04/25/2018 CHLOE BALDWIN MD, Ot E78.5 HYPERLIPIDEMIA, UNSPECIFIED 04/25/2018 CHLOE BALDWIN MD Ot I10 ESSENTIAL (PRIMARY) HYPERTENSION 04/25/2018 CHLOE BALDWIN MD, Ot M19.90 UNSPECIFIED OSTEOARTHRITIS, UNSPECIFIED 04/25/2018 CHLOE BALDWIN MD, Ot R94.5 ABNORMAL RESULTS OF LIVER FUNCTION STUDI 04/25/2018 CHLOE BALDWIN MD, Ot Z68.30 BODY MASS INDEX (BMI) 30.0-30.9, ADULT 04/25/2018 CHLOE BALDWIN MD, Ot Z79.4 [facility] (CURRENT) USE OF INSULIN 04/25/2018 CHLOE BALDWIN MD, Ot Z79.899 OTHER [facility] (CURRENT) DRUG THERAPY 04/25/2018 CHLOE BALDWIN MD, Ot Z80.3 FAMILY HISTORY OF MALIGNANT NEOPLASM OF 04/25/2018 CHLOE BALDWIN MD, Ot Z86.718 PERSONAL HISTORY OF OTHER VENOUS THROMBO 04/25/2018 ASHLEY, AUSTIN R BARREL STAVE INSPECTOR Ot E11.621 TYPE 2 DIABETES MELLITUS WITH FOOT ULCER 04/25/2018 AUSTIN RAMIREZ BARREL STAVE INSPECTOR Ot L03.115 CELLULITIS OF RIGHT LOWER LIMB 04/25/2018 AUSTIN RAMIREZ BARREL STAVE INSPECTOR Ot L97.512 NON-PRS CHRONIC ULCER OTH PRT RIGHT FOOT 04/25/2018 AUSTIN RAMIREZ R BARREL STAVE INSPECTOR Ot E11.621 TYPE 2 DIABETES MELLITUS WITH FOOT ULCER 04/25/2018 ASHLEYAUSTIN BARREL STAVE INSPECTOR Ot L03.115 CELLULITIS OF RIGHT LOWER LIMB 04/25/2018 AUSTIN RAMIREZ BARREL STAVE INSPECTOR Ot L97.512 NON-PRS CHRONIC ULCER OTH PRT RIGHT FOOT 04/25/2018 AUSTIN RAMIREZ R BARREL STAVE INSPECTOR Ot E11.621 TYPE 2 DIABETES MELLITUS WITH FOOT ULCER 04/25/2018 AUSTIN RAMIREZ BARREL STAVE INSPECTOR Ot L03.115 CELLULITIS OF RIGHT LOWER LIMB 04/25/2018 AUSTIN RAMIREZ BARREL STAVE INSPECTOR Ot L97.512 NON-PRS CHRONIC ULCER OTH PRT RIGHT FOOT 04/25/2018 AUSTIN RAMIREZ BARREL STAVE INSPECTOR Ot E11.621 TYPE 2 DIABETES MELLITUS WITH FOOT ULCER 04/25/2018 AUSTIN RAMIREZ BARREL STAVE INSPECTOR Ot L97.512 NON-PRS CHRONIC ULCER OTH PRT RIGHT FOOT 04/29/2018 YING GENAO MD Ot M94.261 CHONDROMALACIA, RIGHT KNEE 04/29/2018 YING GENAO MD Ot S82.191A OTH FRACTURE OF UPPER END OF RIGHT TIBIA 04/29/2018 YING GENAO MD Ot S83.241A OTH TEAR OF MEDIAL MENISCUS, CURRENT INJ 04/29/2018 YING GENAO MD Ot W19.XXXA UNSPECIFIED FALL, INITIAL ENCOUNTER 04/29/2018 YING GENAO MD Ot M94.261 CHONDROMALACIA, RIGHT KNEE 04/29/2018 YING GENAO MD Ot S82.124A NONDISP FX OF LATERAL CONDYLE OF RIGHT T 04/29/2018 YING GENAO MD Ot S83.241A OTH TEAR OF MEDIAL MENISCUS, CURRENT INJ 04/29/2018 YING GENAO MD Ot W19.XXXA UNSPECIFIED FALL, INITIAL ENCOUNTER 05/16/2018 Ot D72.828 OTHER ELEVATED WHITE BLOOD CELL COUNT 05/16/2018 Ot E03.9 HYPOTHYROIDISM, UNSPECIFIED 05/16/2018 Ot E11.9 TYPE 2 DIABETES MELLITUS WITHOUT COMPLIC 05/16/2018 Ot E66.9 OBESITY, UNSPECIFIED 05/16/2018 Ot F17.210 NICOTINE DEPENDENCE, CIGARETTES, UNCOMPL 05/16/2018 Ot I10 ESSENTIAL ( PRIMARY) HYPERTENSION 05/16/2018 Ot M19.91 PRIMARY OSTEOARTHRITIS, UNSPECIFIED SITE 05/16/2018 Ot R79.89 OTHER SPECIFIED ABNORMAL FINDINGS OF BLO 05/16/2018 Ot R94.5 ABNORMAL RESULTS OF LIVER FUNCTION STUDI 05/16/2018 Ot Z68.32 BODY MASS INDEX (BMI) 32.0-32.9, ADULT 05/16/2018 Ot Z79.84 CORROSION CONTROL FITTER ( CURRENT) USE OF ORAL HYPOGLYC 05/16/2018 Ot Z79.899 OTHER CORROSION CONTROL FITTER (CURRENT) DRUG THERAPY 05/16/2018 Ot Z86.718 PERSONAL HISTORY OF OTHER VENOUS THROMBO 05/19/2018 Ot E11.621 TYPE 2 DIABETES MELLITUS WITH FOOT ULCER 05/19/2018 Ot L97.512 NON-PRS CHRONIC ULCER OTH PRT RIGHT FOOT 05/20/2018 YING GENAO MD Ot M94.261 CHONDROMALACIA, RIGHT KNEE 05/20/2018 BIRGIT DONNELLY, YING Pierce Ot S82.191A OTH FRACTURE OF UPPER END OF RIGHT TIBIA 05/20/2018 YING GENAO MD Ot S83.241A OTH TEAR OF MEDIAL MENISCUS, CURRENT INJ 05/20/2018 YING GENAO MD Ot W19.XXXA UNSPECIFIED FALL, INITIAL ENCOUNTER 05/23/2018 AUSTIN RAMIREZ APRN Ot E11.621 TYPE 2 DIABETES MELLITUS WITH FOOT ULCER 05/23/2018 AUSTIN RAMIREZ APRN Ot L97.512 NON-PRS CHRONIC ULCER OTH PRT RIGHT FOOT 05/27/2018 Ot E11.621 TYPE 2 DIABETES MELLITUS WITH FOOT ULCER 05/27/2018 Ot L97.512 NON-PRS CHRONIC ULCER OTH PRT RIGHT FOOT 05/30/2018 YING GENAO MD Ot M94.261 CHONDROMALACIA, RIGHT KNEE 05/30/2018 BIRGIT DONNELLY, YING Pierce Ot S82.191A OTH FRACTURE OF UPPER END OF RIGHT TIBIA 05/30/2018 YING GENAO MD Ot S83.241A OTH TEAR OF MEDIAL MENISCUS, CURRENT INJ 05/30/2018 YING GENAO MD Ot W19.XXXA UNSPECIFIED FALL, INITIAL ENCOUNTER 05/30/2018 AUSTIN RAMIREZ APRN Ot E11.621 TYPE 2 DIABETES MELLITUS WITH FOOT ULCER 05/30/2018 AUSTIN RAMIREZ APRN Ot L97.512 NON-PRS CHRONIC ULCER OTH PRT RIGHT FOOT 06/18/2018 Ot E11.621 TYPE 2 DIABETES MELLITUS WITH FOOT ULCER 06/18/2018 Ot L97.512 NON-PRS CHRONIC ULCER OTH PRT RIGHT FOOT 06/18/2018 Ot D72.828 OTHER ELEVATED WHITE BLOOD CELL COUNT 06/18/2018 Ot E03.9 HYPOTHYROIDISM, UNSPECIFIED 06/18/2018 Ot E11.621 TYPE 2 DIABETES MELLITUS WITH FOOT ULCER 06/18/2018 Ot E11.9 TYPE 2 DIABETES MELLITUS WITHOUT COMPLIC 06/18/2018 Ot E66.9 OBESITY, UNSPECIFIED 06/18/2018 Ot F17.210 NICOTINE DEPENDENCE, CIGARETTES, UNCOMPL 06/18/2018 Ot I10 ESSENTIAL ( PRIMARY) HYPERTENSION 06/18/2018 Ot L97.512 NON-PRS CHRONIC ULCER OTH PRT RIGHT FOOT 06/18/2018 Ot M19.91 PRIMARY OSTEOARTHRITIS, UNSPECIFIED SITE 06/18/2018 Ot R79.89 OTHER SPECIFIED ABNORMAL FINDINGS OF BLO 06/18/2018 Ot R94.5 ABNORMAL RESULTS OF LIVER FUNCTION STUDI 06/18/2018 Ot Z68.32 BODY MASS INDEX (BMI) 32.0-32.9, ADULT 06/18/2018 Ot Z79.84 CORROSION CONTROL FITTER ( CURRENT) USE OF ORAL HYPOGLYC 06/18/2018 Ot Z79.899 OTHER [facility] (CURRENT) DRUG THERAPY 06/18/2018 Ot Z86.718 PERSONAL HISTORY OF OTHER VENOUS THROMBO 06/27/2018 Ot E11.621 TYPE 2 DIABETES MELLITUS WITH FOOT ULCER 06/27/2018 Ot L97.512 NON-PRS CHRONIC ULCER OTH PRT RIGHT FOOT 06/27/2018 Ot D72.828 OTHER ELEVATED WHITE BLOOD CELL COUNT 06/27/2018 Ot E03.9 HYPOTHYROIDISM, UNSPECIFIED 06/27/2018 Ot E11.621 TYPE 2 DIABETES MELLITUS WITH FOOT ULCER 06/27/2018 Ot E11.9 TYPE 2 DIABETES MELLITUS WITHOUT COMPLIC 06/27/2018 Ot E66.9 OBESITY, UNSPECIFIED 06/27/2018 Ot F17.210 NICOTINE DEPENDENCE, CIGARETTES, UNCOMPL 06/27/2018 Ot I10 ESSENTIAL ( PRIMARY) HYPERTENSION 06/27/2018 Ot L97.512 NON-PRS CHRONIC ULCER OTH PRT RIGHT FOOT 06/27/2018 Ot M19.91 PRIMARY OSTEOARTHRITIS, UNSPECIFIED SITE 06/27/2018 Ot R79.89 OTHER SPECIFIED ABNORMAL FINDINGS OF BLO 06/27/2018 Ot R94.5 ABNORMAL RESULTS OF LIVER FUNCTION STUDI 06/27/2018 Ot Z68.32 BODY MASS INDEX (BMI) 32.0-32.9, ADULT 06/27/2018 Ot Z79.84 [facility] ( CURRENT) USE OF ORAL HYPOGLYC 06/27/2018 Ot Z79.899 OTHER [facility] (CURRENT) DRUG THERAPY 06/27/2018 Ot Z86.718 PERSONAL HISTORY OF OTHER VENOUS THROMBO 07/09/2018 Ot M75.01 ADHESIVE CAPSULITIS OF RIGHT SHOULDER 07/09/2018 Ot Z95.828 PRESENCE OF OTHER VASCULAR IMPLANTS AND 07/09/2018 NEY ANDERSEN MD Ot Z12.31 ENCNTR SCREEN MAMMOGRAM FOR MALIGNANT NE 07/09/2018 NEY ANDERSEN MD Ot Z80.3 FAMILY HISTORY OF MALIGNANT NEOPLASM OF 07/09/2018 NEY ANDERSEN MD Ot K76.0 FATTY (CHANGE OF) LIVER, NOT ELSEWHERE C 07/09/2018 GEO LOUISE MD Ot R11.2 NAUSEA WITH VOMITING, UNSPECIFIED 07/09/2018 NEY ANDERSEN MD Ot Z12.31 ENCNTR SCREEN MAMMOGRAM FOR MALIGNANT NE 07/09/2018 GEO LOUISE MD Ot R10.2 PELVIC AND PERINEAL PAIN 07/09/2018 AUSTIN RAMIREZ APRN Ot E11.621 TYPE 2 DIABETES MELLITUS WITH FOOT ULCER 07/09/2018 AUSTIN RAMIREZ APRN Ot L97.511 NON-PRS CHRONIC ULCER OTH PRT R FOOT JESSICA 07/09/2018 AUSTIN RAMIREZ APRN Ot L97.522 NON-PRS CHRONIC ULCER OTH PRT LEFT FOOT 07/09/2018 AUSTIN RAMIREZ APRN Ot E11.621 TYPE 2 DIABETES MELLITUS WITH FOOT ULCER 07/09/2018 AUSTIN RAMIREZ APRN Ot L97.511 NON-PRS CHRONIC ULCER OTH PRT R FOOT JESSICA 07/09/2018 AUSTIN RAMIREZ APRN Ot L97.522 NON-PRS CHRONIC ULCER OTH PRT LEFT FOOT 07/09/2018 AUSTIN RAMIREZ R BARREL STAVE INSPECTOR Ot E11.621 TYPE 2 DIABETES MELLITUS WITH FOOT ULCER 07/09/2018 AUSTIN RAMIREZ R BARREL STAVE INSPECTOR Ot L97.511 NON-PRS CHRONIC ULCER OTH PRT R FOOT JESSICA 07/09/2018 AUSTIN RAMIREZ R BARREL STAVE INSPECTOR Ot L97.522 NON-PRS CHRONIC ULCER OTH PRT LEFT FOOT 07/09/2018 AUSTIN RAMIREZ R BARREL STAVE INSPECTOR Ot E11.621 TYPE 2 DIABETES MELLITUS WITH FOOT ULCER 07/09/2018 AUSTIN RAMIREZ R BARREL STAVE INSPECTOR Ot L97.512 NON-PRS CHRONIC ULCER OTH PRT RIGHT FOOT 07/09/2018 AUSTIN RAMIREZ R BARREL STAVE INSPECTOR Ot E11.621 TYPE 2 DIABETES MELLITUS WITH FOOT ULCER 07/09/2018 AUSTIN RAMIREZ R BARREL STAVE INSPECTOR Ot L97.512 NON-PRS CHRONIC ULCER OTH PRT RIGHT FOOT 07/09/2018 AUSTIN RAMIREZ R BARREL STAVE INSPECTOR Ot E11.621 TYPE 2 DIABETES MELLITUS WITH FOOT ULCER 07/09/2018 AUSTIN RAMIREZ BARREL STAVE INSPECTOR Ot L97.512 NON-PRS CHRONIC ULCER OTH PRT RIGHT FOOT 07/09/2018 AUSTIN RAMIREZ R BARREL STAVE INSPECTOR Ot E11.621 TYPE 2 DIABETES MELLITUS WITH FOOT ULCER 07/09/2018 AUSTIN RAMIREZ R BARREL STAVE INSPECTOR Ot L97.512 NON-PRS CHRONIC ULCER OTH PRT RIGHT FOOT 07/09/2018 GEO LOUISE MD Ot Z12.31 ENCNTR SCREEN MAMMOGRAM FOR MALIGNANT NE 07/09/2018 AUSTIN RAMIREZ R BARREL STAVE INSPECTOR Ot E11.621 TYPE 2 DIABETES MELLITUS WITH FOOT ULCER 07/09/2018 AUSTIN RAMIREZ BARREL STAVE INSPECTOR Ot L97.512 NON-PRS CHRONIC ULCER OTH PRT RIGHT FOOT 07/09/2018 AUSTIN RAMIREZ BARREL STAVE INSPECTOR Ot E11.621 TYPE 2 DIABETES MELLITUS WITH FOOT ULCER 07/09/2018 AUSTIN RAMIREZ R BARREL STAVE INSPECTOR Ot L97.512 NON-PRS CHRONIC ULCER OTH PRT RIGHT FOOT 07/09/2018 GEO LOUISE MD Ot F17.210 NICOTINE DEPENDENCE, CIGARETTES, UNCOMPL 07/09/2018 GEO LOUISE MD Ot R05 COUGH 07/09/2018 AUSTIN RAMIREZ BARREL STAVE INSPECTOR Ot E11.621 TYPE 2 DIABETES MELLITUS WITH FOOT ULCER 07/09/2018 ASHLEY, AUSTIN R BARREL STAVE INSPECTOR Ot L97.512 NON-PRS CHRONIC ULCER OTH PRT RIGHT FOOT 07/09/2018 ASHLEY AUSTIN R BARREL STAVE INSPECTOR Ot E11.621 TYPE 2 DIABETES MELLITUS WITH FOOT ULCER 07/09/2018 ASHLEY AUSTIN R BARREL STAVE INSPECTOR Ot L97.512 NON-PRS CHRONIC ULCER OTH PRT RIGHT FOOT 07/09/2018 ASHLEY AUSTIN R BARREL STAVE INSPECTOR Ot E11.621 TYPE 2 DIABETES MELLITUS WITH FOOT ULCER 07/09/2018 ASHLEY AUSTIN R BARREL STAVE INSPECTOR Ot L97.512 NON-PRS CHRONIC ULCER OTH PRT RIGHT FOOT 07/09/2018 ASHLEY AUSTIN R BARREL STAVE INSPECTOR Ot E11.621 TYPE 2 DIABETES MELLITUS WITH FOOT ULCER 07/09/2018 AUSTIN RAMIREZ R BARREL STAVE INSPECTOR Ot L97.512 NON-PRS CHRONIC ULCER OTH PRT RIGHT FOOT 07/09/2018 CHLOE BALDWIN MD Ot 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 (HEMORRHAGIC) THROMBOCYTHEMIA 07/09/2018 CHLOE BALDWIN MD Ot D72.829 ELEVATED WHITE BLOOD CELL COUNT, UNSPECI 07/09/2018 CHLOE BALDWIN MD Ot E03.9 HYPOTHYROIDISM, UNSPECIFIED 07/09/2018 CHLOE BALDWIN MD Ot E11.9 TYPE 2 DIABETES MELLITUS WITHOUT COMPLIC 07/09/2018 CHLOE BALDWIN MD Ot E66.9 OBESITY, UNSPECIFIED 07/09/2018 CHLOE BALDWIN MD, Ot E78.5 HYPERLIPIDEMIA, UNSPECIFIED 07/09/2018 CHLOE BALDWIN MD Ot I10 ESSENTIAL (PRIMARY) HYPERTENSION 07/09/2018 CHLOE BALDWIN MD Ot M19.90 UNSPECIFIED OSTEOARTHRITIS, UNSPECIFIED 07/09/2018 CHLOE BALDWIN MD Ot R94.5 ABNORMAL RESULTS OF LIVER FUNCTION STUDI 07/09/2018 CHLOE BALDWIN MD Ot Z68.30 BODY MASS INDEX (BMI) 30.0-30.9, ADULT 07/09/2018 CHOLE BALDWIN MD Ot Z79.4 CORROSION CONTROL FITTER (CURRENT) USE OF INSULIN 07/09/2018 CHLOE BALDWIN MD, Ot Z79.899 OTHER CORROSION CONTROL FITTER (CURRENT) DRUG THERAPY 07/09/2018 CHLOE BALDWIN MD Ot Z80.3 FAMILY HISTORY OF MALIGNANT NEOPLASM OF 07/09/2018 CHLOE BALDWIN MD, Ot Z86.718 PERSONAL HISTORY OF OTHER VENOUS THROMBO 07/09/2018 AUSTIN RAMIREZ R BARREL STAVE INSPECTOR Ot E11.621 TYPE 2 DIABETES MELLITUS WITH FOOT ULCER 07/09/2018 AUSTIN RAMIREZ BARREL STAVE INSPECTOR Ot L03.115 CELLULITIS OF RIGHT LOWER LIMB 07/09/2018 AUSTIN RAMIREZ BARREL STAVE INSPECTOR Ot L97.512 NON-PRS CHRONIC ULCER OTH PRT RIGHT FOOT 07/09/2018 AUSTIN RAMIREZ BARREL STAVE INSPECTOR Ot E11.621 TYPE 2 DIABETES MELLITUS WITH FOOT ULCER 07/09/2018 AUSTIN RAMIREZ BARREL STAVE INSPECTOR Ot L03.115 CELLULITIS OF RIGHT LOWER LIMB 07/09/2018 AUSTIN ARMIREZ BARREL STAVE INSPECTOR Ot L97.512 NON-PRS CHRONIC ULCER OTH PRT RIGHT FOOT 07/09/2018 AUSTIN RAMIREZ BARREL STAVE INSPECTOR Ot E11.621 TYPE 2 DIABETES MELLITUS WITH FOOT ULCER 07/09/2018 AUSTIN RAMIREZ BARREL STAVE INSPECTOR Ot L03.115 CELLULITIS OF RIGHT LOWER LIMB 07/09/2018 AUSTIN RAMIREZ BARREL STAVE INSPECTOR Ot L97.512 NON-PRS CHRONIC ULCER OTH PRT RIGHT FOOT 07/09/2018 AUSTIN RAMIREZ BARREL STAVE INSPECTOR Ot E11.621 TYPE 2 DIABETES MELLITUS WITH FOOT ULCER 07/09/2018 AUSTIN RAMIREZ APRN Ot L97.512 NON-PRS CHRONIC ULCER OTH PRT RIGHT FOOT 07/09/2018 BIRGIT DONNELLY, YING Pierce Ot M94.261 CHONDROMALACIA, RIGHT KNEE 07/09/2018 BIRGIT DONNELLY, YING Pierce Ot S82.191A OTH FRACTURE OF UPPER END OF RIGHT TIBIA 07/09/2018 YING GENAO MD Ot S83.241A OTH TEAR OF MEDIAL MENISCUS, CURRENT INJ 07/09/2018 YING GENAO MD Ot W19.XXXA UNSPECIFIED FALL, INITIAL ENCOUNTER 07/09/2018 AUSTIN RAMIREZ BARREL STAVE INSPECTOR Ot E11.621 TYPE 2 DIABETES MELLITUS WITH FOOT ULCER 07/09/2018 AUSTIN RAMIREZ BARREL STAVE INSPECTOR Ot L97.512 NON-PRS CHRONIC ULCER OTH PRT RIGHT FOOT 07/09/2018 Ot E11.621 TYPE 2 DIABETES MELLITUS WITH FOOT ULCER 07/09/2018 Ot L97.512 NON-PRS CHRONIC ULCER OTH PRT RIGHT FOOT 07/09/2018 Ot E11.621 TYPE 2 DIABETES MELLITUS WITH FOOT ULCER 07/09/2018 Ot L97.512 NON-PRS CHRONIC ULCER OTH PRT RIGHT FOOT 07/09/2018 Ot E11.621 TYPE 2 DIABETES MELLITUS WITH FOOT ULCER 07/09/2018 Ot L97.512 NON-PRS CHRONIC ULCER OTH PRT RIGHT FOOT 07/09/2018 Ot D72.828 OTHER ELEVATED WHITE BLOOD CELL COUNT 07/09/2018 Ot E03.9 HYPOTHYROIDISM, UNSPECIFIED 07/09/2018 Ot E11.621 TYPE 2 DIABETES MELLITUS WITH FOOT ULCER 07/09/2018 Ot E11.9 TYPE 2 DIABETES MELLITUS WITHOUT COMPLIC 07/09/2018 Ot E66.9 OBESITY, UNSPECIFIED 07/09/2018 Ot F17.210 NICOTINE DEPENDENCE, CIGARETTES, UNCOMPL 07/09/2018 Ot I10 ESSENTIAL ( PRIMARY) HYPERTENSION 07/09/2018 Ot L97.512 NON-PRS CHRONIC ULCER OTH PRT RIGHT FOOT 07/09/2018 Ot M19.91 PRIMARY OSTEOARTHRITIS, UNSPECIFIED SITE 07/09/2018 Ot R79.89 OTHER SPECIFIED ABNORMAL FINDINGS OF BLO 07/09/2018 Ot R94.5 ABNORMAL RESULTS OF LIVER FUNCTION STUDI 07/09/2018 Ot Z68.32 BODY MASS INDEX (BMI) 32.0-32.9, ADULT 07/09/2018 Ot Z79.84 CORROSION CONTROL FITTER ( CURRENT) USE OF ORAL HYPOGLYC 07/09/2018 Ot Z79.899 OTHER [facility] (CURRENT) DRUG THERAPY 07/09/2018 Ot Z86.718 PERSONAL HISTORY OF OTHER VENOUS THROMBO 07/10/2018 Ot M75.01 ADHESIVE CAPSULITIS OF RIGHT SHOULDER 07/10/2018 Ot Z95.828 PRESENCE OF OTHER VASCULAR IMPLANTS AND 07/10/2018 NEY ANDERSEN MD Ot Z12.31 ENCNTR SCREEN MAMMOGRAM FOR MALIGNANT NE 07/10/2018 NEY ANDERSEN MD Ot Z80.3 FAMILY HISTORY OF MALIGNANT NEOPLASM OF 07/10/2018 NEY ANDERSEN MD Ot K76.0 FATTY (CHANGE OF) LIVER, NOT ELSEWHERE C 07/10/2018 GEO LOUISE MD Ot R11.2 NAUSEA WITH VOMITING, UNSPECIFIED 07/10/2018 NEY ANDERSEN MD Ot Z12.31 ENCNTR SCREEN MAMMOGRAM FOR MALIGNANT NE 07/10/2018 GEO LOUISE MD Ot R10.2 PELVIC AND PERINEAL PAIN 07/10/2018 AUSTIN RAMIREZ APRN Ot E11.621 TYPE 2 DIABETES MELLITUS WITH FOOT ULCER 07/10/2018 AUSTIN RAMIREZ APRN Ot L97.511 NON-PRS CHRONIC ULCER OTH PRT R FOOT JESSICA 07/10/2018 ASHLEY AUSTIN R BARREL STAVE INSPECTOR Ot L97.522 NON-PRS CHRONIC ULCER OTH PRT LEFT FOOT 07/10/2018 ASHLEY AUSTIN R BARREL STAVE INSPECTOR Ot E11.621 TYPE 2 DIABETES MELLITUS WITH FOOT ULCER 07/10/2018 ASHLEY AUSTIN R BARREL STAVE INSPECTOR Ot L97.511 NON-PRS CHRONIC ULCER OTH PRT R FOOT JESSICA 07/10/2018 ASHLEY AUSTIN R BARREL STAVE INSPECTOR Ot L97.522 NON-PRS CHRONIC ULCER OTH PRT LEFT FOOT 07/10/2018 ASHLEY AUSTIN R BARREL STAVE INSPECTOR Ot E11.621 TYPE 2 DIABETES MELLITUS WITH FOOT ULCER 07/10/2018 ASHLEY AUSTIN R BARREL STAVE INSPECTOR Ot L97.511 NON-PRS CHRONIC ULCER OTH PRT R FOOT JESSICA 07/10/2018 ASHLEY AUSTIN R BARREL STAVE INSPECTOR Ot L97.522 NON-PRS CHRONIC ULCER OTH PRT LEFT FOOT 07/10/2018 ASHLEY AUSTIN R BARREL STAVE INSPECTOR Ot E11.621 TYPE 2 DIABETES MELLITUS WITH FOOT ULCER 07/10/2018 AUSTIN RAMIREZ R BARREL STAVE INSPECTOR Ot L97.512 NON-PRS CHRONIC ULCER OTH PRT RIGHT FOOT 07/10/2018 ASHLEY AUSTIN R BARREL STAVE INSPECTOR Ot E11.621 TYPE 2 DIABETES MELLITUS WITH FOOT ULCER 07/10/2018 AUSTIN RAMIREZ R BARREL STAVE INSPECTOR Ot L97.512 NON-PRS CHRONIC ULCER OTH PRT RIGHT FOOT 07/10/2018 ASHLEY AUSTIN R BARREL STAVE INSPECTOR Ot E11.621 TYPE 2 DIABETES MELLITUS WITH FOOT ULCER 07/10/2018 AUSTIN RMAIREZ R BARREL STAVE INSPECTOR Ot L97.512 NON-PRS CHRONIC ULCER OTH PRT RIGHT FOOT 07/10/2018 AUSTIN RAMIREZ R BARREL STAVE INSPECTOR Ot E11.621 TYPE 2 DIABETES MELLITUS WITH FOOT ULCER 07/10/2018 ASHLEY AUSTIN R BARREL STAVE INSPECTOR Ot L97.512 NON-PRS CHRONIC ULCER OTH PRT RIGHT FOOT 07/10/2018 ASPEN DONNELLY, GEO Carmona Ot Z12.31 ENCNTR SCREEN MAMMOGRAM FOR MALIGNANT NE 07/10/2018 ASHLEY AUSTIN R BARREL STAVE INSPECTOR Ot E11.621 TYPE 2 DIABETES MELLITUS WITH FOOT ULCER 07/10/2018 ASHLEY AUSTIN R BARREL STAVE INSPECTOR Ot L97.512 NON-PRS CHRONIC ULCER OTH PRT RIGHT FOOT 07/10/2018 ASHLEY, AUSTIN R BARREL STAVE INSPECTOR Ot E11.621 TYPE 2 DIABETES MELLITUS WITH FOOT ULCER 07/10/2018 AUSTIN RAMIREZ R BARREL STAVE INSPECTOR Ot L97.512 NON-PRS CHRONIC ULCER OTH PRT RIGHT FOOT 07/10/2018 GEO LOUISE MD Ot F17.210 NICOTINE DEPENDENCE, CIGARETTES, UNCOMPL 07/10/2018 GEO LOUISE MD Ot R05 COUGH 07/10/2018 AUSTIN RAMIREZ R BARREL STAVE INSPECTOR Ot E11.621 TYPE 2 DIABETES MELLITUS WITH FOOT ULCER 07/10/2018 ASHLEY AUSTIN R BARREL STAVE INSPECTOR Ot L97.512 NON-PRS CHRONIC ULCER OTH PRT RIGHT FOOT 07/10/2018 ASHLEY AUSTIN R BARREL STAVE INSPECTOR Ot E11.621 TYPE 2 DIABETES MELLITUS WITH FOOT ULCER 07/10/2018 ASHLEY AUSTIN R BARREL STAVE INSPECTOR Ot L97.512 NON-PRS CHRONIC ULCER OTH PRT RIGHT FOOT 07/10/2018 ASHLEYAUSTIN R BARREL STAVE INSPECTOR Ot E11.621 TYPE 2 DIABETES MELLITUS WITH FOOT ULCER 07/10/2018 ASHLEYAUSTIN R BARREL STAVE INSPECTOR Ot L97.512 NON-PRS CHRONIC ULCER OTH PRT RIGHT FOOT 07/10/2018 ASHLEYAUSTIN R BARREL STAVE INSPECTOR Ot E11.621 TYPE 2 DIABETES MELLITUS WITH FOOT ULCER 07/10/2018 ASHLEY AUSTIN R BARREL STAVE INSPECTOR Ot L97.512 NON-PRS CHRONIC ULCER OTH PRT RIGHT FOOT 07/10/2018 CHLOE BALDWIN MD Ot 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 (HEMORRHAGIC) THROMBOCYTHEMIA 07/10/2018 CHLOE BALDWIN MD Ot D72.829 ELEVATED WHITE BLOOD CELL COUNT, UNSPECI 07/10/2018 CHLOE BALDWIN MD Ot E03.9 HYPOTHYROIDISM, UNSPECIFIED 07/10/2018 CHLOE BALDWIN MD Ot E11.9 TYPE 2 DIABETES MELLITUS WITHOUT COMPLIC 07/10/2018 CHLOE BALDWIN MD Ot E66.9 OBESITY, UNSPECIFIED 07/10/2018 CHLOE BALDWIN MD Ot E78.5 HYPERLIPIDEMIA, UNSPECIFIED 07/10/2018 CHLOE BALDWIN MD Ot I10 ESSENTIAL (PRIMARY) HYPERTENSION 07/10/2018 CHLOE BALDWIN MD Ot M19.90 UNSPECIFIED OSTEOARTHRITIS, UNSPECIFIED 07/10/2018 CHLOE BALDWIN MD Ot R94.5 ABNORMAL RESULTS OF LIVER FUNCTION STUDI 07/10/2018 CHLOE BALDWIN MD Ot Z68.30 BODY MASS INDEX (BMI) 30.0-30.9, ADULT 07/10/2018 CHLOE BALDWIN MD, Ot Z79.4 [facility] (CURRENT) USE OF INSULIN 07/10/2018 CHLOE BALDWIN MD, Ot Z79.899 OTHER CORROSION CONTROL FITTER (CURRENT) DRUG THERAPY 07/10/2018 CHLOE BALDWIN MD, Ot Z80.3 FAMILY HISTORY OF MALIGNANT NEOPLASM OF 07/10/2018 CHLOE BALDWIN MD, Ot Z86.718 PERSONAL HISTORY OF OTHER VENOUS THROMBO 07/10/2018 AUSTIN RAMIREZ APRN Ot E11.621 TYPE 2 DIABETES MELLITUS WITH FOOT ULCER 07/10/2018 AUSTIN RAMIREZ BARREL STAVE INSPECTOR Ot L03.115 CELLULITIS OF RIGHT LOWER LIMB 07/10/2018 AUSTIN RAMIREZ APRN Ot L97.512 NON-PRS CHRONIC ULCER OTH PRT RIGHT FOOT 07/10/2018 AUSTIN RAMIREZ APRN Ot E11.621 TYPE 2 DIABETES MELLITUS WITH FOOT ULCER 07/10/2018 AUSTIN RAMIREZ BARREL STAVE INSPECTOR Ot L03.115 CELLULITIS OF RIGHT LOWER LIMB 07/10/2018 AUSTIN RAMIREZ BARREL STAVE INSPECTOR Ot L97.512 NON-PRS CHRONIC ULCER OTH PRT RIGHT FOOT 07/10/2018 AUSTIN RAMIREZ APRN Ot E11.621 TYPE 2 DIABETES MELLITUS WITH FOOT ULCER 07/10/2018 AUSTIN RAMIREZ BARREL STAVE INSPECTOR Ot L03.115 CELLULITIS OF RIGHT LOWER LIMB 07/10/2018 AUSTIN RAMIREZ BARREL STAVE INSPECTOR Ot L97.512 NON-PRS CHRONIC ULCER OTH PRT RIGHT FOOT 07/10/2018 AUSTIN RAMIREZ APRN Ot E11.621 TYPE 2 DIABETES MELLITUS WITH FOOT ULCER 07/10/2018 AUSTIN RAMIREZ APRN Ot L97.512 NON-PRS CHRONIC ULCER OTH PRT RIGHT FOOT 07/10/2018 YING GENAO MD Ot M94.261 CHONDROMALACIA, RIGHT KNEE 07/10/2018 YING GENAO MD Ot S82.191A OTH FRACTURE OF UPPER END OF RIGHT TIBIA 07/10/2018 YING GENAO MD, Ot S83.241A OTH TEAR OF MEDIAL MENISCUS, CURRENT INJ 07/10/2018 YING GENAO MD Ot W19.XXXA UNSPECIFIED FALL, INITIAL ENCOUNTER 07/10/2018 AUSTIN RAMIREZ BARREL STAVE INSPECTOR Ot E11.621 TYPE 2 DIABETES MELLITUS WITH FOOT ULCER 07/10/2018 AUSTIN RAMIREZ APRN Ot L97.512 NON-PRS CHRONIC ULCER OTH PRT RIGHT FOOT 07/10/2018 Ot E11.621 TYPE 2 DIABETES MELLITUS WITH FOOT ULCER 07/10/2018 Ot L97.512 NON-PRS CHRONIC ULCER OTH PRT RIGHT FOOT 07/10/2018 Ot E11.621 TYPE 2 DIABETES MELLITUS WITH FOOT ULCER 07/10/2018 Ot L97.512 NON-PRS CHRONIC ULCER OTH PRT RIGHT FOOT 07/10/2018 Ot E11.621 TYPE 2 DIABETES MELLITUS WITH FOOT ULCER 07/10/2018 Ot L97.512 NON-PRS CHRONIC ULCER OTH PRT RIGHT FOOT 07/10/2018 Ot D72.828 OTHER ELEVATED WHITE BLOOD CELL COUNT 07/10/2018 Ot E03.9 HYPOTHYROIDISM, UNSPECIFIED 07/10/2018 Ot E11.621 TYPE 2 DIABETES MELLITUS WITH FOOT ULCER 07/10/2018 Ot E11.9 TYPE 2 DIABETES MELLITUS WITHOUT COMPLIC 07/10/2018 Ot E66.9 OBESITY, UNSPECIFIED 07/10/2018 Ot F17.210 NICOTINE DEPENDENCE, CIGARETTES, UNCOMPL 07/10/2018 Ot I10 ESSENTIAL ( PRIMARY) HYPERTENSION 07/10/2018 Ot L97.512 NON-PRS CHRONIC ULCER OTH PRT RIGHT FOOT 07/10/2018 Ot M19.91 PRIMARY OSTEOARTHRITIS, UNSPECIFIED SITE 07/10/2018 Ot R79.89 OTHER SPECIFIED ABNORMAL FINDINGS OF BLO 07/10/2018 Ot R94.5 ABNORMAL RESULTS OF LIVER FUNCTION STUDI 07/10/2018 Ot Z68.32 BODY MASS INDEX (BMI) 32.0-32.9, ADULT 07/10/2018 Ot Z79.84 [facility] ( CURRENT) USE OF ORAL HYPOGLYC 07/10/2018 Ot Z79.899 OTHER [facility] (CURRENT) DRUG THERAPY 07/10/2018 Ot Z86.718 PERSONAL HISTORY OF OTHER VENOUS THROMBO 07/10/2018 Ot M75.01 ADHESIVE CAPSULITIS OF RIGHT SHOULDER 07/10/2018 Ot Z95.828 PRESENCE OF OTHER VASCULAR IMPLANTS AND 07/10/2018 NATHALY DONNELLY, NEY Nolan Ot Z12.31 ENCNTR SCREEN MAMMOGRAM FOR MALIGNANT NE 07/10/2018 NATHALY DONNELLY, NEY Nolan Ot Z80.3 FAMILY HISTORY OF MALIGNANT NEOPLASM OF 07/10/2018 NATHALY DONNELLY, NEY Nolan Ot K76.0 FATTY (CHANGE OF) LIVER, NOT ELSEWHERE C 07/10/2018 ASPEN DONNELLY, GEO Carmona Ot R11.2 NAUSEA WITH VOMITING, UNSPECIFIED 07/10/2018 NATHALY DONNELLY, NEY Nolan Ot Z12.31 ENCNTR SCREEN MAMMOGRAM FOR MALIGNANT NE 07/10/2018 ASPEN DONNELLY, GEO Carmona Ot R10.2 PELVIC AND PERINEAL PAIN 07/10/2018 AUSTIN RAMIREZ BARREL STAVE INSPECTOR Ot E11.621 TYPE 2 DIABETES MELLITUS WITH FOOT ULCER 07/10/2018 AUSTIN RAMIREZ R BARREL STAVE INSPECTOR Ot L97.511 NON-PRS CHRONIC ULCER OTH PRT R FOOT JESSICA 07/10/2018 ASHLEY AUSTIN R BARREL STAVE INSPECTOR Ot L97.522 NON-PRS CHRONIC ULCER OTH PRT LEFT FOOT 07/10/2018 ASHLEY AUSTIN R BARREL STAVE INSPECTOR Ot E11.621 TYPE 2 DIABETES MELLITUS WITH FOOT ULCER 07/10/2018 AUSTIN RAMIREZ R BARREL STAVE INSPECTOR Ot L97.511 NON-PRS CHRONIC ULCER OTH PRT R FOOT JESSICA 07/10/2018 AUSTIN RAMIREZ R BARREL STAVE INSPECTOR Ot L97.522 NON-PRS CHRONIC ULCER OTH PRT LEFT FOOT 07/10/2018 ASHLEY AUSTIN R BARREL STAVE INSPECTOR Ot E11.621 TYPE 2 DIABETES MELLITUS WITH FOOT ULCER 07/10/2018 ASHLEY AUSTIN R BARREL STAVE INSPECTOR Ot L97.511 NON-PRS CHRONIC ULCER OTH PRT R FOOT JESSICA 07/10/2018 ASHLEY AUSTIN R BARREL STAVE INSPECTOR Ot L97.522 NON-PRS CHRONIC ULCER OTH PRT LEFT FOOT 07/10/2018 ASHLEY AUSTIN R BARREL STAVE INSPECTOR Ot E11.621 TYPE 2 DIABETES MELLITUS WITH FOOT ULCER 07/10/2018 ASHLEY AUSTIN R BARREL STAVE INSPECTOR Ot L97.512 NON-PRS CHRONIC ULCER OTH PRT RIGHT FOOT 07/10/2018 ASHLEY AUSTIN R BARREL STAVE INSPECTOR Ot E11.621 TYPE 2 DIABETES MELLITUS WITH FOOT ULCER 07/10/2018 ASHLEY AUSTIN R BARREL STAVE INSPECTOR Ot L97.512 NON-PRS CHRONIC ULCER OTH PRT RIGHT FOOT 07/10/2018 AUSTIN RAMIREZ R BARREL STAVE INSPECTOR Ot E11.621 TYPE 2 DIABETES MELLITUS WITH FOOT ULCER 07/10/2018 AUSTIN RAMIREZ R BARREL STAVE INSPECTOR Ot L97.512 NON-PRS CHRONIC ULCER OTH PRT RIGHT FOOT 07/10/2018 ASHLEY AUSTIN R BARREL STAVE INSPECTOR Ot E11.621 TYPE 2 DIABETES MELLITUS WITH FOOT ULCER 07/10/2018 AUSTIN RAMIREZ BARREL STAVE INSPECTOR Ot L97.512 NON-PRS CHRONIC ULCER OTH PRT RIGHT FOOT 07/10/2018 GEO LOUISE MD Ot Z12.31 ENCNTR SCREEN MAMMOGRAM FOR MALIGNANT NE 07/10/2018 AUSTIN RAMIREZ BARREL STAVE INSPECTOR Ot E11.621 TYPE 2 DIABETES MELLITUS WITH FOOT ULCER 07/10/2018 AUSTIN RAMIREZ BARREL STAVE INSPECTOR Ot L97.512 NON-PRS CHRONIC ULCER OTH PRT RIGHT FOOT 07/10/2018 AUSTIN RAMIREZ APRN Ot E11.621 TYPE 2 DIABETES MELLITUS WITH FOOT ULCER 07/10/2018 AUSTIN RAMIREZ APRN Ot L97.512 NON-PRS CHRONIC ULCER OTH PRT RIGHT FOOT 07/10/2018 GEO LOUISE MD Ot F17.210 NICOTINE DEPENDENCE, CIGARETTES, UNCOMPL 07/10/2018 GEO LOUISE MD Ot R05 COUGH 07/10/2018 AUSTIN RAMIREZ APRN Ot E11.621 TYPE 2 DIABETES MELLITUS WITH FOOT ULCER 07/10/2018 AUSTIN RAMIREZ BARREL STAVE INSPECTOR Ot L97.512 NON-PRS CHRONIC ULCER OTH PRT RIGHT FOOT 07/10/2018 AUSTIN RAMIREZ BARREL STAVE INSPECTOR Ot E11.621 TYPE 2 DIABETES MELLITUS WITH FOOT ULCER 07/10/2018 AUSTIN RAMIREZ BARREL STAVE INSPECTOR Ot L97.512 NON-PRS CHRONIC ULCER OTH PRT RIGHT FOOT 07/10/2018 AUSTIN RAMIREZ BARREL STAVE INSPECTOR Ot E11.621 TYPE 2 DIABETES MELLITUS WITH FOOT ULCER 07/10/2018 AUSTIN RAMIREZ BARREL STAVE INSPECTOR Ot L97.512 NON-PRS CHRONIC ULCER OTH PRT RIGHT FOOT 07/10/2018 AUSTIN RAMIREZ APRN Ot E11.621 TYPE 2 DIABETES MELLITUS WITH FOOT ULCER 07/10/2018 AUSTIN RAMIREZ BARREL STAVE INSPECTOR Ot L97.512 NON-PRS CHRONIC ULCER OTH PRT RIGHT FOOT 07/10/2018 CHLOE BALDWIN MD Ot 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 (HEMORRHAGIC) THROMBOCYTHEMIA 07/10/2018 CHLOE BALDWIN MD Ot D72.829 ELEVATED WHITE BLOOD CELL COUNT, UNSPECI 07/10/2018 CHLOE BALDWIN MD Ot E03.9 HYPOTHYROIDISM, UNSPECIFIED 07/10/2018 CHLOE BALDWIN MD Ot E11.9 TYPE 2 DIABETES MELLITUS WITHOUT COMPLIC 07/10/2018 CHLOE BALDWIN MD, Ot E66.9 OBESITY, UNSPECIFIED 07/10/2018 CHLOE BALDWIN MD, Ot E78.5 HYPERLIPIDEMIA, UNSPECIFIED 07/10/2018 CHLOE BALDWIN MD Ot I10 ESSENTIAL (PRIMARY) HYPERTENSION 07/10/2018 CHLOE BALDWIN MD, Ot M19.90 UNSPECIFIED OSTEOARTHRITIS, UNSPECIFIED 07/10/2018 CHLOE BALDWIN MD, Ot R94.5 ABNORMAL RESULTS OF LIVER FUNCTION STUDI 07/10/2018 CHLOE BALDWIN MD, Ot Z68.30 BODY MASS INDEX (BMI) 30.0-30.9, ADULT 07/10/2018 CHLOE BALDWIN MD, Ot Z79.4 [facility] (CURRENT) USE OF INSULIN 07/10/2018 CHLOE BALDWIN MD, Ot Z79.899 OTHER CORROSION CONTROL FITTER (CURRENT) DRUG THERAPY 07/10/2018 CHLOE BALDWIN MD, Ot Z80.3 FAMILY HISTORY OF MALIGNANT NEOPLASM OF 07/10/2018 CHLOE BALDWIN MD, Ot Z86.718 PERSONAL HISTORY OF OTHER VENOUS THROMBO 07/10/2018 AUSTIN RAMIREZ APRN Ot E11.621 TYPE 2 DIABETES MELLITUS WITH FOOT ULCER 07/10/2018 AUSTIN RAMIREZ APRN Ot L03.115 CELLULITIS OF RIGHT LOWER LIMB 07/10/2018 AUSTIN RAMIREZ APRN Ot L97.512 NON-PRS CHRONIC ULCER OTH PRT RIGHT FOOT 07/10/2018 AUSTIN RAMIREZ APRN Ot E11.621 TYPE 2 DIABETES MELLITUS WITH FOOT ULCER 07/10/2018 AUSTIN RAMIREZ APRN Ot L03.115 CELLULITIS OF RIGHT LOWER LIMB 07/10/2018 AUSTIN RAMIREZ APRN Ot L97.512 NON-PRS CHRONIC ULCER OTH PRT RIGHT FOOT 07/10/2018 AUSTIN RAMIREZ BARREL STAVE INSPECTOR Ot E11.621 TYPE 2 DIABETES MELLITUS WITH FOOT ULCER 07/10/2018 AUSTIN RAMIREZ BARREL STAVE INSPECTOR Ot L03.115 CELLULITIS OF RIGHT LOWER LIMB 07/10/2018 AUSTIN RAMIREZ APRN Ot L97.512 NON-PRS CHRONIC ULCER OTH PRT RIGHT FOOT 07/10/2018 AUSTIN RAMIREZ APRN Ot E11.621 TYPE 2 DIABETES MELLITUS WITH FOOT ULCER 07/10/2018 AUSTIN RAMIREZ APRN Ot L97.512 NON-PRS CHRONIC ULCER OTH PRT RIGHT FOOT 07/10/2018 BIRGIT DONNELLY, YING Pierce Ot M94.261 CHONDROMALACIA, RIGHT KNEE 07/10/2018 BIRGIT DONNELLY, YING Pierce Ot S82.191A OTH FRACTURE OF UPPER END OF RIGHT TIBIA 07/10/2018 BIRGIT DONNELLY, YING Pierce Ot S83.241A OTH TEAR OF MEDIAL MENISCUS, CURRENT INJ 07/10/2018 BIRGIT DONNELLY, YING Pierce Ot W19.XXXA UNSPECIFIED FALL, INITIAL ENCOUNTER 07/10/2018 AUSTIN RAMIREZ BARREL STAVE INSPECTOR Ot E11.621 TYPE 2 DIABETES MELLITUS WITH FOOT ULCER 07/10/2018 AUSTIN RAMIREZ BARREL STAVE INSPECTOR Ot L97.512 NON-PRS CHRONIC ULCER OTH PRT RIGHT FOOT 07/10/2018 Ot E11.621 TYPE 2 DIABETES MELLITUS WITH FOOT ULCER 07/10/2018 Ot L97.512 NON-PRS CHRONIC ULCER OTH PRT RIGHT FOOT 07/10/2018 Ot E11.621 TYPE 2 DIABETES MELLITUS WITH FOOT ULCER 07/10/2018 Ot L97.512 NON-PRS CHRONIC ULCER OTH PRT RIGHT FOOT 07/10/2018 Ot E11.621 TYPE 2 DIABETES MELLITUS WITH FOOT ULCER 07/10/2018 Ot L97.512 NON-PRS CHRONIC ULCER OTH PRT RIGHT FOOT 07/10/2018 Ot D72.828 OTHER ELEVATED WHITE BLOOD CELL COUNT 07/10/2018 Ot E03.9 HYPOTHYROIDISM, UNSPECIFIED 07/10/2018 Ot E11.621 TYPE 2 DIABETES MELLITUS WITH FOOT ULCER 07/10/2018 Ot E11.9 TYPE 2 DIABETES MELLITUS WITHOUT COMPLIC 07/10/2018 Ot E66.9 OBESITY, UNSPECIFIED 07/10/2018 Ot F17.210 NICOTINE DEPENDENCE, CIGARETTES, UNCOMPL 07/10/2018 Ot I10 ESSENTIAL ( PRIMARY) HYPERTENSION 07/10/2018 Ot L97.512 NON-PRS CHRONIC ULCER OTH PRT RIGHT FOOT 07/10/2018 Ot M19.91 PRIMARY OSTEOARTHRITIS, UNSPECIFIED SITE 07/10/2018 Ot R79.89 OTHER SPECIFIED ABNORMAL FINDINGS OF BLO 07/10/2018 Ot R94.5 ABNORMAL RESULTS OF LIVER FUNCTION STUDI 07/10/2018 Ot Z68.32 BODY MASS INDEX (BMI) 32.0-32.9, ADULT 07/10/2018 Ot Z79.84 [facility] ( CURRENT) USE OF ORAL HYPOGLYC 07/10/2018 Ot Z79.899 OTHER CORROSION CONTROL FITTER (CURRENT) DRUG THERAPY 07/10/2018 Ot Z86.718 PERSONAL HISTORY OF OTHER VENOUS THROMBO 07/14/2018 YING GENAO MD Ot M62.511 MUSCLE WASTING AND ATROPHY, NEC, RIGHT S 07/14/2018 YING GENAO MD Ot S43.491A OTHER SPRAIN OF RIGHT SHOULDER JOINT, IN 07/14/2018 YING GENAO MD Ot S46.011A STRAIN OF MUSC/TEND THE ROTATOR CUFF OF 07/14/2018 YING GENAO MD Ot Z98.890 OTHER SPECIFIED POSTPROCEDURAL STATES 07/14/2018 AUTSIN RAMIREZ APRN Ot E11.621 TYPE 2 DIABETES MELLITUS WITH FOOT ULCER 07/14/2018 AUSTIN RAMIREZ APRN Ot L97.512 NON-PRS CHRONIC ULCER OTH PRT RIGHT FOOT 07/14/2018 Ot M75.01 ADHESIVE CAPSULITIS OF RIGHT SHOULDER 07/14/2018 Ot Z95.828 PRESENCE OF OTHER VASCULAR IMPLANTS AND 07/14/2018 NEY ANDERSEN MD Ot Z12.31 ENCNTR SCREEN MAMMOGRAM FOR MALIGNANT NE 07/14/2018 NEY ANDERSEN MD Ot Z80.3 FAMILY HISTORY OF MALIGNANT NEOPLASM OF 07/14/2018 NEY ANDERSEN MD Ot K76.0 FATTY (CHANGE OF) LIVER, NOT ELSEWHERE C 07/14/2018 GEO LOUISE MD Ot R11.2 NAUSEA WITH VOMITING, UNSPECIFIED 07/14/2018 NEY ANDERSEN MD Ot Z12.31 ENCNTR SCREEN MAMMOGRAM FOR MALIGNANT NE 07/14/2018 GEO LOUISE MD Ot R10.2 PELVIC AND PERINEAL PAIN 07/14/2018 AUSTIN RAMIREZ BARREL STAVE INSPECTOR Ot E11.621 TYPE 2 DIABETES MELLITUS WITH FOOT ULCER 07/14/2018 AUSTIN RAMIREZ BARREL STAVE INSPECTOR Ot L97.511 NON-PRS CHRONIC ULCER OTH PRT R FOOT JESSICA 07/14/2018 AUSTIN RAMIREZ BARREL STAVE INSPECTOR Ot L97.522 NON-PRS CHRONIC ULCER OTH PRT LEFT FOOT 07/14/2018 AUSTIN RAMIREZ BARREL STAVE INSPECTOR Ot E11.621 TYPE 2 DIABETES MELLITUS WITH FOOT ULCER 07/14/2018 AUSTIN RAMIREZ BARREL STAVE INSPECTOR Ot L97.511 NON-PRS CHRONIC ULCER OTH PRT R FOOT JESSICA 07/14/2018 AUSTIN RAMIREZ BARREL STAVE INSPECTOR Ot L97.522 NON-PRS CHRONIC ULCER OTH PRT LEFT FOOT 07/14/2018 AUSTIN RAMIREZ BARREL STAVE INSPECTOR Ot E11.621 TYPE 2 DIABETES MELLITUS WITH FOOT ULCER 07/14/2018 AUSTIN RAMIREZ BARREL STAVE INSPECTOR Ot L97.511 NON-PRS CHRONIC ULCER OTH PRT R FOOT JESSICA 07/14/2018 AUSTIN RAMIREZ R BARREL STAVE INSPECTOR Ot L97.522 NON-PRS CHRONIC ULCER OTH PRT LEFT FOOT 07/14/2018 AUSTIN RAMIREZ R BARREL STAVE INSPECTOR Ot E11.621 TYPE 2 DIABETES MELLITUS WITH FOOT ULCER 07/14/2018 AUSTIN RAMIREZ R BARREL STAVE INSPECTOR Ot L97.512 NON-PRS CHRONIC ULCER OTH PRT RIGHT FOOT 07/14/2018 AUSTIN RAMIREZ BARREL STAVE INSPECTOR Ot E11.621 TYPE 2 DIABETES MELLITUS WITH FOOT ULCER 07/14/2018 AUSTIN RAMIREZ BARREL STAVE INSPECTOR Ot L97.512 NON-PRS CHRONIC ULCER OTH PRT RIGHT FOOT 07/14/2018 AUSTIN RAMIREZ BARREL STAVE INSPECTOR Ot E11.621 TYPE 2 DIABETES MELLITUS WITH FOOT ULCER 07/14/2018 AUSTIN RAMIREZ BARREL STAVE INSPECTOR Ot L97.512 NON-PRS CHRONIC ULCER OTH PRT RIGHT FOOT 07/14/2018 AUSTIN RAMIREZ BARREL STAVE INSPECTOR Ot E11.621 TYPE 2 DIABETES MELLITUS WITH FOOT ULCER 07/14/2018 AUSTIN RAMIREZ BARREL STAVE INSPECTOR Ot L97.512 NON-PRS CHRONIC ULCER OTH PRT RIGHT FOOT 07/14/2018 GEO LOUISE MD Ot Z12.31 ENCNTR SCREEN MAMMOGRAM FOR MALIGNANT NE 07/14/2018 AUSTIN RAMIREZ BARREL STAVE INSPECTOR Ot E11.621 TYPE 2 DIABETES MELLITUS WITH FOOT ULCER 07/14/2018 AUSTIN RAMIREZ BARREL STAVE INSPECTOR Ot L97.512 NON-PRS CHRONIC ULCER OTH PRT RIGHT FOOT 07/14/2018 AUSTIN RAMIREZ BARREL STAVE INSPECTOR Ot E11.621 TYPE 2 DIABETES MELLITUS WITH FOOT ULCER 07/14/2018 AUSTIN RAMIREZ BARREL STAVE INSPECTOR Ot L97.512 NON-PRS CHRONIC ULCER OTH PRT RIGHT FOOT 07/14/2018 GEO LOUISE MD Ot F17.210 NICOTINE DEPENDENCE, CIGARETTES, UNCOMPL 07/14/2018 GEO LOUISE MD Ot R05 COUGH 07/14/2018 AUSTIN RAMIREZ BARREL STAVE INSPECTOR Ot E11.621 TYPE 2 DIABETES MELLITUS WITH FOOT ULCER 07/14/2018 AUSTIN RAMIREZ R BARREL STAVE INSPECTOR Ot L97.512 NON-PRS CHRONIC ULCER OTH PRT RIGHT FOOT 07/14/2018 ASHLEY AUSTIN R BARREL STAVE INSPECTOR Ot E11.621 TYPE 2 DIABETES MELLITUS WITH FOOT ULCER 07/14/2018 ASHLEY AUSTIN R BARREL STAVE INSPECTOR Ot L97.512 NON-PRS CHRONIC ULCER OTH PRT RIGHT FOOT 07/14/2018 ASHLEY AUSTIN R BARREL STAVE INSPECTOR Ot E11.621 TYPE 2 DIABETES MELLITUS WITH FOOT ULCER 07/14/2018 ASHLEY AUSTIN R BARREL STAVE INSPECTOR Ot L97.512 NON-PRS CHRONIC ULCER OTH PRT RIGHT FOOT 07/14/2018 ASHLEY AUSTIN R BARREL STAVE INSPECTOR Ot E11.621 TYPE 2 DIABETES MELLITUS WITH FOOT ULCER 07/14/2018 AUSTIN RAMIREZ R BARREL STAVE INSPECTOR Ot L97.512 NON-PRS CHRONIC ULCER OTH PRT RIGHT FOOT 07/14/2018 CHLOE BALDWIN MD, Ot 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 (HEMORRHAGIC) THROMBOCYTHEMIA 07/14/2018 CHLOE BALDWIN MD, Ot D72.829 ELEVATED WHITE BLOOD CELL COUNT, UNSPECI 07/14/2018 CHLOE BALDWIN MD Ot E03.9 HYPOTHYROIDISM, UNSPECIFIED 07/14/2018 CHLOE BALDWIN MD Ot E11.9 TYPE 2 DIABETES MELLITUS WITHOUT COMPLIC 07/14/2018 CHLOE BALDWIN MD, Ot E66.9 OBESITY, UNSPECIFIED 07/14/2018 CHLOE BALDWIN MD, Ot E78.5 HYPERLIPIDEMIA, UNSPECIFIED 07/14/2018 CHLOE BALDWIN MD Ot I10 ESSENTIAL (PRIMARY) HYPERTENSION 07/14/2018 CHLOE BALDWIN MD, Ot M19.90 UNSPECIFIED OSTEOARTHRITIS, UNSPECIFIED 07/14/2018 CHLOE BALDWIN MD, Ot R94.5 ABNORMAL RESULTS OF LIVER FUNCTION STUDI 07/14/2018 CHLOE BALDWIN MD, Ot Z68.30 BODY MASS INDEX (BMI) 30.0-30.9, ADULT 07/14/2018 CHLOE BALDWIN MD, Ot Z79.4 [facility] (CURRENT) USE OF INSULIN 07/14/2018 CHLOE BALDWIN MD, Ot Z79.899 OTHER CORROSION CONTROL FITTER (CURRENT) DRUG THERAPY 07/14/2018 CHLOE BALDWIN MD, Ot Z80.3 FAMILY HISTORY OF MALIGNANT NEOPLASM OF 07/14/2018 CHLOE BALDWIN MD, Ot Z86.718 PERSONAL HISTORY OF OTHER VENOUS THROMBO 07/14/2018 AUSTIN RMAIREZ BARREL STAVE INSPECTOR Ot E11.621 TYPE 2 DIABETES MELLITUS WITH FOOT ULCER 07/14/2018 AUSTIN RAMIREZ BARREL STAVE INSPECTOR Ot L03.115 CELLULITIS OF RIGHT LOWER LIMB 07/14/2018 AUSTIN RAMIREZ BARREL STAVE INSPECTOR Ot L97.512 NON-PRS CHRONIC ULCER OTH PRT RIGHT FOOT 07/14/2018 AUSTIN RAMIREZ BARREL STAVE INSPECTOR Ot E11.621 TYPE 2 DIABETES MELLITUS WITH FOOT ULCER 07/14/2018 AUSTIN RAMIREZ BARREL STAVE INSPECTOR Ot L03.115 CELLULITIS OF RIGHT LOWER LIMB 07/14/2018 AUSTIN RAMIREZ BARREL STAVE INSPECTOR Ot L97.512 NON-PRS CHRONIC ULCER OTH PRT RIGHT FOOT 07/14/2018 AUSTIN RAMIREZ BARREL STAVE INSPECTOR Ot E11.621 TYPE 2 DIABETES MELLITUS WITH FOOT ULCER 07/14/2018 AUSTIN RAMIREZ BARREL STAVE INSPECTOR Ot L03.115 CELLULITIS OF RIGHT LOWER LIMB 07/14/2018 AUSTIN RAMIREZ BARREL STAVE INSPECTOR Ot L97.512 NON-PRS CHRONIC ULCER OTH PRT RIGHT FOOT 07/14/2018 AUSTIN RAMIREZ BARREL STAVE INSPECTOR Ot E11.621 TYPE 2 DIABETES MELLITUS WITH FOOT ULCER 07/14/2018 AUSTIN RAMIREZ BARREL STAVE INSPECTOR Ot L97.512 NON-PRS CHRONIC ULCER OTH PRT RIGHT FOOT 07/14/2018 BIRGIT DONNELLY, YING Pierce Ot M94.261 CHONDROMALACIA, RIGHT KNEE 07/14/2018 BIRGIT DONNELLY, YING Pierce Ot S82.191A OTH FRACTURE OF UPPER END OF RIGHT TIBIA 07/14/2018 YING GENAO MD Ot S83.241A OTH TEAR OF MEDIAL MENISCUS, CURRENT INJ 07/14/2018 BIRGIT DONNELLY, YING Pierce Ot W19.XXXA UNSPECIFIED FALL, INITIAL ENCOUNTER 07/14/2018 AUSTIN RAMIREZ BARREL STAVE INSPECTOR Ot E11.621 TYPE 2 DIABETES MELLITUS WITH FOOT ULCER 07/14/2018 AUSTIN RAMIREZ BARREL STAVE INSPECTOR Ot L97.512 NON-PRS CHRONIC ULCER OTH PRT RIGHT FOOT 07/14/2018 Ot E11.621 TYPE 2 DIABETES MELLITUS WITH FOOT ULCER 07/14/2018 Ot L97.512 NON-PRS CHRONIC ULCER OTH PRT RIGHT FOOT 07/14/2018 Ot E11.621 TYPE 2 DIABETES MELLITUS WITH FOOT ULCER 07/14/2018 Ot L97.512 NON-PRS CHRONIC ULCER OTH PRT RIGHT FOOT 07/14/2018 Ot E11.621 TYPE 2 DIABETES MELLITUS WITH FOOT ULCER 07/14/2018 Ot L97.512 NON-PRS CHRONIC ULCER OTH PRT RIGHT FOOT 07/14/2018 Ot D72.828 OTHER ELEVATED WHITE BLOOD CELL COUNT 07/14/2018 Ot E03.9 HYPOTHYROIDISM, UNSPECIFIED 07/14/2018 Ot E11.621 TYPE 2 DIABETES MELLITUS WITH FOOT ULCER 07/14/2018 Ot E11.9 TYPE 2 DIABETES MELLITUS WITHOUT COMPLIC 07/14/2018 Ot E66.9 OBESITY, UNSPECIFIED 07/14/2018 Ot F17.210 NICOTINE DEPENDENCE, CIGARETTES, UNCOMPL 07/14/2018 Ot I10 ESSENTIAL ( PRIMARY) HYPERTENSION 07/14/2018 Ot L97.512 NON-PRS CHRONIC ULCER OTH PRT RIGHT FOOT 07/14/2018 Ot M19.91 PRIMARY OSTEOARTHRITIS, UNSPECIFIED SITE 07/14/2018 Ot R79.89 OTHER SPECIFIED ABNORMAL FINDINGS OF BLO 07/14/2018 Ot R94.5 ABNORMAL RESULTS OF LIVER FUNCTION STUDI 07/14/2018 Ot Z68.32 BODY MASS INDEX (BMI) 32.0-32.9, ADULT 07/14/2018 Ot Z79.84 [facility] ( CURRENT) USE OF ORAL HYPOGLYC 07/14/2018 Ot Z79.899 OTHER CORROSION CONTROL FITTER (CURRENT) DRUG THERAPY 07/14/2018 Ot Z86.718 PERSONAL HISTORY OF OTHER VENOUS THROMBO 07/14/2018 AUSTIN RAMIREZ APRN Ot E11.621 TYPE 2 DIABETES MELLITUS WITH FOOT ULCER 07/14/2018 AUSTIN RAMIREZ APRN Ot L97.512 NON-PRS CHRONIC ULCER OTH PRT RIGHT FOOT 07/14/2018 YING GENAO MD Ot M62.511 MUSCLE WASTING AND ATROPHY, NEC, RIGHT S 07/14/2018 YING GENAO MD Ot S43.491A OTHER SPRAIN OF RIGHT SHOULDER JOINT, IN 07/14/2018 YING GENAO MD Ot S46.011A STRAIN OF MUSC/TEND THE ROTATOR CUFF OF 07/14/2018 YING GENAO MD Ot Z98.890 OTHER SPECIFIED POSTPROCEDURAL STATES 07/16/2018 YING GENAO MD Ot M62.511 MUSCLE WASTING AND ATROPHY, NEC, RIGHT S 07/16/2018 YING GENAO MD Ot S43.491A OTHER SPRAIN OF RIGHT SHOULDER JOINT, IN 07/16/2018 YING GENAO MD Ot S46.011A STRAIN OF MUSC/TEND THE ROTATOR CUFF OF 07/16/2018 YING GENAO MD Ot Z98.890 OTHER SPECIFIED POSTPROCEDURAL STATES 07/18/2018 YING JONES MD Ot E11.42 TYPE 2 DIABETES MELLITUS WITH DIABETIC P 07/18/2018 YING JONES MD Ot E11.621 TYPE 2 DIABETES MELLITUS WITH FOOT ULCER 07/18/2018 YING JONES MD Ot L97.512 NON-PRS CHRONIC ULCER OTH PRT RIGHT FOOT 07/21/2018 YING JONES MD, Ot E11.42 TYPE 2 DIABETES MELLITUS WITH DIABETIC P 07/21/2018 YING JONES MD, Ot E11.621 TYPE 2 DIABETES MELLITUS WITH FOOT ULCER 07/21/2018 YING JONES MD Ot L97.512 NON-PRS CHRONIC ULCER OTH PRT RIGHT FOOT 07/29/2018 AUSTIN RAMIREZ BARREL STAVE INSPECTOR Ot E11.621 TYPE 2 DIABETES MELLITUS WITH FOOT ULCER 07/29/2018 AUSTIN RAMIREZ APRN Ot L97.512 NON-PRS CHRONIC ULCER OTH PRT RIGHT FOOT 07/29/2018 AUSTIN RAMIREZ BARREL STAVE INSPECTOR Ot M62.511 MUSCLE WASTING AND ATROPHY, NEC, RIGHT S 07/29/2018 AUSTIN RAMIREZ BARREL STAVE INSPECTOR Ot S43.491A OTHER SPRAIN OF RIGHT SHOULDER JOINT, IN 07/29/2018 AUSTIN RAMIREZ BARREL STAVE INSPECTOR Ot S46.011A STRAIN OF MUSC/TEND THE ROTATOR CUFF OF 07/29/2018 AUSTIN RAMIREZ APRN Ot Z98.890 OTHER SPECIFIED POSTPROCEDURAL STATES 07/30/2018 YING GENAO MD Ot M62.511 MUSCLE WASTING AND ATROPHY, NEC, RIGHT S 07/30/2018 YING GENAO MD Ot S43.491A OTHER SPRAIN OF RIGHT SHOULDER JOINT, IN 07/30/2018 YING GENAO MD, Ot S46.011A STRAIN OF MUSC/TEND THE ROTATOR CUFF OF 07/30/2018 YING GENAO MD Ot Z98.890 OTHER SPECIFIED POSTPROCEDURAL STATES 08/05/2018 AUSTIN RAMIREZ BARREL STAVE INSPECTOR Ot E11.621 TYPE 2 DIABETES MELLITUS WITH FOOT ULCER 08/05/2018 AUSTIN RAMIREZ BARREL STAVE INSPECTOR Ot L97.512 NON-PRS CHRONIC ULCER OTH PRT RIGHT FOOT 08/05/2018 AUSTIN RAMIREZ APRN Ot M62.511 MUSCLE WASTING AND ATROPHY, NEC, RIGHT S 08/05/2018 AUSTIN RAMIREZ APRN Ot S43.491A OTHER SPRAIN OF RIGHT SHOULDER JOINT, IN 08/05/2018 AUSTIN RAMIREZ APRN Ot S46.011A STRAIN OF MUSC/TEND THE ROTATOR CUFF OF 08/05/2018 AUSTIN RAMIREZ APRN Ot Z98.890 OTHER SPECIFIED POSTPROCEDURAL STATES 08/08/2018 YING JONES MD, Ot E11.42 TYPE 2 DIABETES MELLITUS WITH DIABETIC P 08/08/2018 YING JONES MD, Ot E11.621 TYPE 2 DIABETES MELLITUS WITH FOOT ULCER 08/08/2018 YING JONES MD, Ot L97.512 NON-PRS CHRONIC ULCER OTH PRT RIGHT FOOT 10/02/2018 CHLOE BALDWIN MD, Ot 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 (HEMORRHAGIC) THROMBOCYTHEMIA 10/02/2018 CHLOE BALDWIN MD, Ot D72.829 ELEVATED WHITE BLOOD CELL COUNT, UNSPECI 10/02/2018 CHLOE BALDWIN MD, Ot E03.9 HYPOTHYROIDISM, UNSPECIFIED 10/02/2018 CHLOE BALDWIN MD, Ot E11.9 TYPE 2 DIABETES MELLITUS WITHOUT COMPLIC 10/02/2018 CHLOE BALDWIN MD, Ot E66.9 OBESITY, UNSPECIFIED 10/02/2018 CHLOE BALDWIN MD, Ot E78.5 HYPERLIPIDEMIA, UNSPECIFIED 10/02/2018 CHLOE BALDWIN MD, Ot I10 ESSENTIAL (PRIMARY) HYPERTENSION 10/02/2018 CHLOE BALDWIN MD, Ot M19.90 UNSPECIFIED OSTEOARTHRITIS, UNSPECIFIED 10/02/2018 CHLOE BALDWIN MD, Ot R94.5 ABNORMAL RESULTS OF LIVER FUNCTION STUDI 10/02/2018 CHLOE BALDWIN MD, Ot Z68.30 BODY MASS INDEX (BMI) 30.0-30.9, ADULT 10/02/2018 CHLOE BALDWIN MD, Ot Z79.4 [facility] (CURRENT) USE OF INSULIN 10/02/2018 CHLOE BALDWIN MD, Ot Z79.899 OTHER CORROSION CONTROL FITTER (CURRENT) DRUG THERAPY 10/02/2018 CHLOE BALDWIN MD, Ot Z80.3 FAMILY HISTORY OF MALIGNANT NEOPLASM OF 10/02/2018 CHLOE BALDWIN MD, Ot Z86.718 PERSONAL HISTORY OF OTHER VENOUS THROMBO 10/02/2018 YING GENAO MD, Ot Z01.818 ENCOUNTER FOR OTHER PREPROCEDURAL EXAMIN 10/03/2018 YING GENAO MD Ot Z01.818 ENCOUNTER FOR OTHER PREPROCEDURAL EXAMIN Procedures Code Description [place] [id number] ROUTINE VENIPUNCTURE [place] INFORMATION CONSULTANT, [facility] 10/12/2011 [id number] COMPREHEN METABOLIC PANEL [facility], [facility] 10/12/2011 [id number] LIPID PANEL [facility] INFORMATION CONSULTANT, [facility] 10/12/2011 [id number] GLYCOSYLATED HEMOGLOBIN TEST [facility] INFORMATION CONSULTANT, [facility] 10/12/2011 [id number] ASSAY THYROID STIM HORMONE [facility], [facility] 10/12/2011 [id number] COMPLETE CBC W/AUTO DIFF WBC [facility], [facility] 10/12/2011 [id number] [facility]HROMBIN TIME [facility] 10/12/2011 48051 OFFICE/OUTPATIENT VISIT EST RACQUEL DONNELLY, HANH L 11/19/2011 63041 URINALYSIS NONAUTO W/O SCOPE PAPI DONNELLY, MIYA Barnhart 12/31/2011 71530 ROUTINE VENIPUNCTURE PAPI DONNELLY, MIYA Barnhart 01/04/2012 20805 US EXAM PELVIC COMPLETE PAPI DONNELLY, MIYA Barnhart 01/04/2012 57344 PROTHROMBIN TIME PAPI DONNELLY, MIYA Barnhrat 01/04/2012 38216 ROUTINE VENIPUNCTURE [employer]FORMATION CONSULTANT, [facility] 02/01/2012 74085 PROTHROMBIN TIME [facility] 02/01/2012 12396 ROUTINE VENIPUNCTURE [employer] INFORMATION CONSULTANT, [facility] 02/14/2012 09110 HIV-1/HIV-2 1 RESULT ANTBDY [facility] 02/14/2012 70120 ROUTINE VENIPUNCTURE [employer] INFORMATION CONSULTANT, [facility] 03/03/2012 69618 [facility]BIN [facility] 03/03/2012 08798 ROUTINE VENIPUNCTURE [employer] INFORMATION CONSULTANT, [facility] 04/03/2012 79362 MAMMOGRAM [facility]CRE[facility]ING [facility], [facility] 04/03/2012 49056 PROTHROMBIN TIME [employer]SULTANT, [facility] 04/03/2012 31936 OFFICE/OUTPATIENT VISIT, EST ROLAN DONNELLY, SAM oFster 04/17/2012 02353 X-RAY EXAM OF FOOT MARA HELTON MD 06/19/2012 87647 OFFICE/OUTPATIENT VISIT, EST ROLAN DONNELLY, SAM Foster 06/19/2012 39438 ROUTINE VENIPUNCTURE KATHY ADAME 07/17/2012 74752 X-RAY EXAM OF FOOT KATHY ADAME 07/17/2012 33608 PROTHROMBIN TIME KATHY ADAME 07/17/2012 79564 OFFICE/OUTPATIENT VISIT, EST ROLAN DONNELLY, SAM Foster 07/17/2012 96684 ROUTINE VENIPUNCTURE SHIVANI DONNELLY, BRYAN Tse 10/10/2012 72948 PROTHROMBIN TIME SHIVANI DONNELLY, BRYAN Tse 10/10/2012 14797 ROUTINE VENIPUNCTURE SHIVANI DONNELLY, BRYAN Tse 10/16/2012 68148 PROTHROMBIN BLAIR BAL MD, BRYAN Tse 10/16/2012 94782 OFFICE/OUTPATIENT VISIT EST JUNIOR CANTU, DIVYA Smith 10/21/2012 04380 ROUTINE VENIPUNCTURE SHIVANI DONNELLY, BRYAN Tse 10/24/2012 22854 PROTHROMBIN TIME SHIVANI DONNELLY, BRYAN Tse 10/24/2012 12875 ROUTINE VENIPUNCTURE SHIVANI DONNELLY, BRYAN Tse 10/30/2012 46345 PROTHROMBIN TIME SHIVANI DONNELLY, BRYAN Tse 10/30/2012 06545 ROUTINE VENIPUNCTURE SHIVANI DONNELLY, BRYAN Tse 11/06/2012 67668 PROTHROMBIN BLAIR BAL MD, BRYAN Tse 11/06/2012 30000 ROUTINE VENIPUNCTURE SHIVANI DONNELLY, BRYAN Tse 11/13/2012 94046 PROTHROMBIN TIME SHIVANI DONNELLY, BRYAN Tse 11/13/2012 36729 X-RAY EXAM OF FOOT JUNIOR CANTU, DIVYA Smith 11/25/2012 37657 OFFICE/OUTPATIENT VISIT EST JUNIOR CANTU, DIVYA Smith 11/25/2012 31940 ANESTH, UPPER GI VISUALIZE JOHN KESSLER 11/27/2012 55407 ANESTH, LOW INTESTINE SCOPE JOHN KESSLER 11/27/2012 56697 ROUTINE VENIPUNCTURE ROLAN DONNELLY, SAM Foster 11/27/2012 50517 UPPR GI ENDOSCOPY, DIAGNOSIS ROLAN DONNELLY, SAM Foster 11/27/2012 97593 COLONOSCOPY AND BIOPSY ROLAN DONNELLY, SAM Foster 11/27/2012 50946 PROTHROMBIN TIME ROLAN DONNELLY, SAM S 11/27/2012 94896 TISSUE EXAM BY PATHOLOGIST ROLAN DONNELLY, SAM S 11/27/2012 J7120 RINGER'S LACTATE INFUSION ROLAN DONNELLY, SAM S 11/27/2012 05611 ROUTINE VENIPUNCTURE SHIVANI DONNELLY, BRYAN Tse 12/04/2012 57393 X-RAY EXAM OF FOOT SHIVANI DONNELLY, BRYAN Tse 12/04/2012 66132 PROTHROMBIN TIME SHIVANI DONNELLY, BRYAN Tse 12/04/2012 20981 ROUTINE VENIPUNCTURE SHIVANI DONNELLY, BRYAN Tse 12/11/2012 26511 PROTHROMBIN TIME SHIVANI DONNELLY, BRYAN Tse 12/11/2012 61055 PT EVALUATION SHIVANI DONNELLY, BRYAN Tse 12/16/2012 71131 ROUTINE VENIPUNCTURE SHIVANI DONNELLY, BRYAN Tse 12/18/2012 47444 PROTHROMBIN TIME SHIVANI DONNELLY, BRYAN Tse 12/18/2012 21330 OFFICE/OUTPATIENT VISIT DIVYA VALDEZ DPM 12/23/2012 44950 ROUTINE VENIPUNCTURE SHIVANI DONNELLY, BRYAN Tse 12/26/2012 10909 PROTHROMBIN TIME SHIVANI DONNELLY, BRYAN Tse 12/26/2012 28515 ROUTINE VENIPUNCTURE SHIVANI DONNELLY, BRYAN Tse 01/01/2013 12898 PROTHROMBIN TIME SHIVANI DONNELLY, BRYAN Tse 01/01/2013 39562 ROUTINE VENIPUNCTURE SHIVANI DONNELLY, BRYAN Tse 01/08/2013 98003 PROTHROMBIN TIME SHIVANI DONNELLY, BRYAN Tse 01/08/2013 05975 ROUTINE VENIPUNCTURE SHIVANI DONNELLY, BRYAN Tse 01/15/2013 68343 PROTHROMBIN TIME SHIVANI DONNELLY, BRYAN Tse 01/15/2013 08213 ROUTINE VENIPUNCTURE SHIVANI DONNELLY, BRYAN Tse 01/27/2013 88786 PROTHROMBIN TIME SHIVANI DONNELLY, BRYAN Tse 01/27/2013 91960 ROUTINE VENIPUNCTURE SHIVANI DONNELLY, BRYAN Tse 02/03/2013 45865 PROTHROMBIN TIME SHIVANI DONNELLY, BRYAN Tse 02/03/2013 74989 ROUTINE VENIPUNCTURE SHIVANI DONNELLY, BRYAN Tse 02/10/2013 36373 PROTHROMBIN TIME SHIVANI DONNELLY, BRYAN Tse 02/10/2013 93949 ROUTINE VENIPUNCTURE SHIVANI DONNELLY, BRYAN Tse 02/17/2013 00672 PROTHROMBIN TIME SHIVANI DONNELLY, BRYAN Tse 02/17/2013 39149 X-RAY EXAM OF FOOT JUNIOR CANTU, DIVYA Smith 02/24/2013 92361 OFFICE/OUTPATIENT VISIT EST JUNIOR CANTU, DIVYA B 02/24/2013 34162 ROUTINE VENIPUNCTURE SHIVANI DONNELLY, BRYAN Tse 02/24/2013 95184 PROTHROMBIN BLAIR BAL MD, BRYAN Tse 02/24/2013 57759 ROUTINE VENIPUNCTURE SHIVANI DONNELLY, BRYAN Tse 03/03/2013 14964 COMPREHEN METABOLIC PANEL SHIVANI DONNELLY, BRYAN Tse 03/03/2013 88517 URINALYSIS, AUTO, W/O SCOPE SHIVANI DONNELLY, BRYAN Tse 03/03/2013 32346 COMPLETE CBC W/AUTO DIFF WBC SHIVANI DONNELLY, BRYAN Tse 03/03/2013 07117 PROTHROMBIN TIME SHIVANI DONNELLY, BRYAN Tse 03/03/2013 28321 ELECTROCARDIOGRAM, TRACING SHIVANI DONNELLY, BRYAN Tse 03/03/2013 38658 ROUTINE VENIPUNCTURE JUNIOR CANTU, DIVYA Smith 03/24/2013 40183 PROTHROMBIN TIME JUNIOR CANTU, DIVYA Smith 03/24/2013 87768 OFFICE/OUTPATIENT VISIT EST JUNIOR CANTU, DIVYA Smith 03/24/2013 61388 ROUTINE VENIPUNCTURE SHIVANI DONNELLY, BRYAN Tse 03/31/2013 58651 GONADOTROPIN (FSH) SHIVANI DONNELLY, BRYAN Tse 03/31/2013 90570 PROTHROMBIN TIME SHIVANI DONNELLY, BRYAN Tse 03/31/2013 77874 ROUTINE VENIPUNCTURE SHIVANI DONNELLY, BRYAN Tse 04/07/2013 31368 PROTHROMBIN BLAIR BAL MD, BRYAN Tse 04/07/2013 16352 ROUTINE VENIPUNCTURE SHIVANI DONNELLY, BRYAN Tse 04/14/2013 91878 PROTHROMBIN TIME SHIVANI DONNELLY, BRYAN Tse 04/14/2013 49047 OFFICE/OUTPATIENT VISIT EST JUNIOR CANTU, DIVYA Smith 2013 24560 ROUTINE VENIPUNCTURE SHIVANI DONNELLY, BRYAN Tse 2013 07524 PROTHROMBIN BLAIR BAL MD, BRYAN Tse 2013 80202 ROUTINE VENIPUNCTURE SHIVANI DONNELLY, BRYAN Tse 04/28/2013 65458 PROTHROMBIN BLAIR BAL MD, BRYAN Tse 04/28/2013 04180 ROUTINE VENIPUNCTURE SHIVANI DONNELLY, BRYAN Tse 05/05/2013 68811 ASSAY OF FREE THYROXINE SHIVANI DONNELLY, BRYAN Tse 05/05/2013 62088 ASSAY THYROID STIM HORMONE SHIVANI DONNELLY, BRYAN Tse 05/05/2013 27776 PROTHROMBIN BLAIR BAL MD, BRYAN Tse 05/05/2013 43174 ROUTINE VENIPUNCTURE SHIVANI DONNELLY, BRYAN Tse 05/12/2013 37028 PROTHROMBIN BLAIR BAL MD, BRYAN Tse 05/12/2013 90744 ROUTINE VENIPUNCTURE SHIVANI DONNELLY, BRYAN Tse 05/18/2013 93096 PROTHROMBIN BLAIR BAL MD, BRYAN Tse 05/18/2013 35738 PT EVALUATION JUNIOR CANTU, DIVYA Smith 05/18/2013 76646 GAIT TRAINING THERAPY JUNIOR CANTU, DIVYA Smith 05/20/2013 77277 THERAPEUTIC EXERCISES DIVYA THORNTON DPM 05/22/2013 20490 GAIT TRAINING THERAPY JUNIOR CANTU, DIVYA Smith 05/22/2013 73918 ROUTINE VENIPBABAK BAL MD, BRYAN Tse 05/26/2013 56198 PROTHROMBIN BLAIR BAL MD, BRYAN Tse 05/26/2013 40259 GAIT TRAINING THERAPY JUNIOR CANTU, DIVYA Smith 05/26/2013 23321 ROUTINE VENIPUNCTURE SHIVANI DONNELLY, BRYAN Tse 06/02/2013 14475 PROTHROMBIN TIME SHIVANI DONNELLY, BRYAN Tse 06/02/2013 34433 THERAPEUTIC EXERCISES DIVYA THORNTON DPM 06/03/2013 46438 GAIT TRAINING THERAPY DIVYA THORNTON DPM 06/03/2013 93560 GAIT TRAINING THERAPY DIVYA THORNTON DPM 06/05/2013 04467 MANUAL THERAPY JUNIOR CANTU, DIVYA Smith 06/05/2013 30351 ROUTINE VENIPUNCTURE SHIVANI DONNELLY, BRYAN Tse 06/09/2013 45249 PROTHROMBIN BLAIR BAL MD, BRYAN Tse 06/09/2013 68439 GAIT TRAINING THERAPY DIVYA THORNTON DPM 06/09/2013 18129 MANUAL THERAPY DIVYA THORNTON DPM 06/09/2013 33143 GAIT TRAINING THERAPY JUNIOR CANTU, DIVYA Smith 06/12/2013 94950 MANUAL THERAPY JUNIOR CANTU, DIVYA Smith 06/12/2013 65035 ROUTINE VENIPUNCTURE SHIVANI DONNELLY, BRYAN Tse 06/16/2013 01284 PROTHROMBIN BLAIR BAL MD, BRYAN Tse 06/16/2013 29842 THERAPEUTIC EXERCISES JUNIOR CANTU, DIVYA Smith 06/16/2013 86559 GAIT TRAINING THERAPY THORNTON DPM, DIVYA B 06/16/2013 44757 MANUAL THERAPY THORNTON DPM, DIVYA B 06/16/2013 21608 ROUTINE VENIPUNCTURE BRYAN BAL MD 06/22/2013 15744 PROTHROMBIN TIME BRYAN BAL MD 06/22/2013 15627 GAIT TRAINING THERAPY THORNTON DPM, DIVYA B 06/22/2013 36622 MANUAL THERAPY THORNTON DPM, DIVYA B 06/22/2013 G8981 BODY POS CURRENT STATUS THORNTON DPM, DIVYA B 06/22/2013 G8982 BODY POS GOAL STATUS THORNTON DPM, DIVYA B 06/22/2013 06059 ROUTINE VENIPUNCTURE BRYAN BAL MD 06/30/2013 87514 PROTHROMBIN TIME BRYAN BAL MD 06/30/2013 07929 THERAPEUTIC EXERCISES THORNTON DPM, DIVYA B 07/03/2013 28895 GAIT TRAINING THERAPY THORNTON DPM, DIVYA B 07/03/2013 91849 MANUAL THERAPY THORNTON DP, DIVYA B 07/03/2013 21855 THERAPEUTIC EXERCISES THORNTON DP, DIVYA B 07/06/2013 52030 GAIT TRAINING THERAPY THORNTON DP, DIVYA B 07/06/2013 51961 MANUAL THERAPY THORNTON DP, DIVYA B 07/06/2013 85965 THERAPEUTIC EXERCISES THORNTON DP, DIVYA B 07/09/2013 65198 GAIT TRAINING THERAPY THORNTON DP, DIVYA B 07/09/2013 67893 ROUTINE VENIPUNCTURE BRYAN BAL MD 07/10/2013 66849 PROTHROMBIN TIME BRYAN BAL MD 07/10/2013 06332 THERAPEUTIC EXERCISES THORNTON DP, DIVYA B 07/13/2013 72176 GAIT TRAINING THERAPY THORNTON DP, DIVYA B 07/13/2013 94834 MANUAL THERAPY THORNTON DP, DIVYA B 07/13/2013 50605 ROUTINE VENIPUNCTURE SHIVANI DONNELLY, BRYAN Tse 07/16/2013 07888 COMP SCREEN MAMMOGRAM ADD- ON BRYAN BAL MD 07/16/2013 93526 PROTHROMBIN TIME BRYAN BAL MD 07/16/2013 G0202 SCREENINGMAMMOGRAPHYDIGITAL BRYAN BAL MD 07/16/2013 74211 GAIT TRAINING THERAPY JUNIOR CANTU, DIVYA B 07/16/2013 55661 MANUAL THERAPY THORNTON DPM, DIYVA B 07/16/2013 45143 THERAPEUTIC EXERCISES THORNTON DPM, DIVYA B 07/20/2013 03380 GAIT TRAINING THERAPY THORNTON DPM, DIVYA B 07/20/2013 86974 MANUAL THERAPY THORNTON DPM, DIVYA B 07/20/2013 65849 ROUTINE VENIPUNCTURE BRYAN BAL MD 07/23/2013 82805 PROTHROMBIN TIME BRYAN BAL MD 07/23/2013 36017 THERAPEUTIC EXERCISES THORNTON DPM, DIVYA B 07/23/2013 91168 GAIT TRAINING THERAPY THORNTON DPM, DIVYA B 07/23/2013 93364 MANUAL THERAPY THORNTON DPM, DIVYA B 07/23/2013 63903 THERAPEUTIC EXERCISES THORNTON DPM, DIVYA B 07/27/2013 25177 GAIT TRAINING THERAPY THORNTON DPM, DIVYA B 07/27/2013 59833 MANUAL THERAPY JUNIOR GLEASONM, DIVYA B 07/27/2013 87245 ROUTINE VENIPUNCTURE BRYAN BAL MD 07/30/2013 07815 PROTHROMBIN TIME BRYAN BAL MD 07/30/2013 91893 THERAPEUTIC EXERCISES JUNIOR DP, DIVYA B 07/30/2013 69362 GAIT TRAINING THERAPY THORNTON DP, DIVYA B 07/30/2013 89469 MANUAL THERAPY THORNTON DP, DIVYA B 07/30/2013 70099 ROUTINE VENIPUNCTURE BRYAN BAL MD 08/06/2013 80917 PROTHROMBIN TIME BRYAN BAL MD 08/06/2013 25273 THERAPEUTIC EXERCISES JUNIOR CANTU, DIVYA B 08/06/2013 14047 GAIT TRAINING THERAPY JUNIOR GLEASON, DIVYA B 08/06/2013 30758 THERAPEUTIC EXERCISES JUNIOR GLEASON, DIVYA B 08/11/2013 G8982 BODY POS GOAL STATUS JUNIOR CANTU, DIVYA B 08/11/2013 G8983 BODY POS D/C STATUS JUNIOR CANTU, DIVYA B 08/11/2013 09552 ROUTINE VENIPUNCTURE BRYAN BAL MD 08/12/2013 66369 PROTHROMBIN TIME BRYAN BAL MD 08/12/2013 Results Test Result Range [...] 32.6 G/DL 31.8-35.4 MCV 94 FL 81.1-96.0 Moody # 1.04 10^3u 0.24-0.79 Moody % 9.6 % 4.4-12.7 MPV 7.8 FL [...] measurement by glucometer (mass/volume) 146 mg/dL 70-110 TSH - 09/05/16 10:05 TSH 0.943 uIU/mL 0.450-4.500 CBC With Differential/Platelet - 10/02/16 12:04 WBC 14.1 x10E3/uL 3.4-10.8 RBC 4.45 x10E6/uL 3.77-5.28 Hemoglobin 13.9 g/dL 11.1-15.9 Hematocrit 41.0 % 34.0-46.6 MCV 92 fL 79-97 MCH 31.2 pg 26.6-33.0 MCHC 33.9 g/dL 31.5-35.7 RDW 13.9 % 12.3-15.4 Platelets 426 x10E3/uL 150-379 Neutrophils 64 % Lymphs 28 % Monocytes 6 % Eos 2 % Basos 0 % Neutrophils (Absolute) 8.9 x10E3/uL 1.4-7.0 Lymphs (Absolute) 3.9 x10E3/uL 0.7-3.1 Monocytes(Absolute) 0.9 x10E3/uL 0.1-0.9 Eos (Absolute) 0.3 x10E3/uL 0.0-0.4 Baso (Absolute) 0.1 x10E3/uL 0.0-0.2 Immature Granulocytes 0 % Immature Grans (Abs) 0.0 x10E3/uL 0.0-0.1 Comp. Metabolic Panel (14) - 10/02/16 12:04 Glucose, Serum 84 mg/dL 65-99 BUN 10 mg/dL 6-24 Creatinine, Serum 0.81 mg/dL 0.57-1.00 eGFR If NonAfricn Am 84 mL/min/1.73 >59 eGFR If Africn Am 97 mL/min/1.73 >59 BUN/Creatinine Ratio 12 9-23 Sodium, Serum 140 mmol/L 134-144 Potassium, Serum 5.0 mmol/L 3.5-5.2 Chloride, Serum 101 mmol/L 96-106 Carbon Dioxide, Total 23 mmol/L 18-29 Calcium, Serum 9.6 mg/dL 8.7-10.2 Protein, Total, Serum 6.6 g/dL 6.0-8.5 Albumin, Serum 4.0 g/dL 3.5-5.5 Globulin, Total 2.6 g/dL 1.5-4.5 A/G Ratio 1.5 1.1-2.5 Bilirubin, Total 0.2 mg/dL 0.0-1.2 Alkaline Phosphatase, S 98 IU/L 39-117 AST (SGOT) 32 IU/L 0-40 ALT (SGPT) 37 IU/L 0-32 Lipid Panel - 10/02/16 12:04 Cholesterol, Total 156 mg/dL 100-199 Triglycerides 148 mg/dL 0-149 HDL Cholesterol 34 mg/dL >39 VLDL Cholesterol Josiah 30 mg/dL 5-40 LDL Cholesterol Calc 92 mg/dL 0-99 Pap Lb, HPV-hr - 11/23/16 00:00 HPV, high-risk Negative Negative DIAGNOSIS: Comment Specimen adequacy: Comment Clinician provided ICD10: Comment Performed by: Comment QC reviewed by: Comment . . Note: Comment Genital Culture, Routine - 11/23/16 08:58 Genital Culture, Routine Note Methicillin resistant Staphylococcus aureus (MRSA) screening culture - 12:30 Methicillin resistant Staphylococcus aureus (MRSA) screening culture NEG NRG Capillary blood glucose measurement by glucometer (mass/volume) - 02/06/17 06: 25 Capillary blood glucose measurement by glucometer (mass/volume) 135 mg/dL 70-110 Complete blood count (CBC) with automated white blood cell (WBC) differential - 03/14/17 10:15 Blood leukocytes automated count (number/volume) 11.0 10*3/uL 4.3-11.0 Blood erythrocytes automated count (number/volume) 4.35 10*6/uL 4.35-5.85 Venous blood hemoglobin measurement (mass/volume) 13.1 [...] Automated blood platelet mean volume measurement 9.8 [foz_us] 7.4-10.4 Automated blood neutrophils/100 leukocytes 64 % [...] measurement by glucometer (mass/volume) 192 mg/dL 70-110 Complete blood count (CBC) with automated white blood cell (WBC) differential - 07/22/17 10:15 Blood leukocytes automated count (number/volume) 11.6 10*3/uL 4.3-11.0 Blood erythrocytes automated count (number/volume) 4.59 10*6/uL 4.35-5.85 Venous blood hemoglobin measurement (mass/volume) 14.1 g/dL 11.5-16.0 Blood hematocrit (volume fraction) 42 % 35-52 Automated erythrocyte mean corpuscular volume 92 [foz_us] 80-99 Automated erythrocyte mean corpuscular hemoglobin (mass per erythrocyte) 31 pg 25-34 Automated erythrocyte mean corpuscular hemoglobin concentration measurement ( mass/volume) 33 g/dL 32-36 Automated erythrocyte distribution width ratio 13.7 % 10.0-14.5 Automated blood platelet count (count/volume) 330 10*3/uL 130-400 Automated blood platelet mean volume measurement 10.2 [foz_us] 7.4-10.4 Automated blood neutrophils/100 leukocytes 56 % 42-75 Automated blood lymphocytes/100 leukocytes 30 % 12-44 Blood monocytes/100 leukocytes 8 % 0-12 Automated blood eosinophils/100 leukocytes 6 % 0-10 Automated blood basophils/100 leukocytes 1 % 0-10 Blood neutrophils automated count (number/volume) 6.5 10*3 1.8-7.8 Blood lymphocytes automated count (number/volume) 3.5 10*3 1.0-4.0 Blood monocytes automated count (number/volume) 0.9 10*3 0.0-1.0 Automated eosinophil count 0.7 10*3/uL 0.0-0.3 Automated blood basophil count (count/volume) 0.1 10*3/uL 0.0-0.1 Whole blood basic metabolic panel - 07/22/17 10:15 Serum or plasma sodium measurement (moles/volume) 138 mmol/L 135-145 Serum or plasma potassium measurement (moles/volume) 4.3 mmol/L 3.6-5.0 Serum or plasma chloride measurement (moles/volume) 105 mmol/L 98-107 Carbon dioxide 27 mmol/L 21-32 Serum or plasma anion gap determination (moles/volume) 6 mmol/L 5-14 Serum or plasma urea nitrogen measurement (mass/volume) 6 mg/dL 7-18 Serum or plasma creatinine measurement (mass/volume) 0.66 mg/dL 0.60-1.30 Serum or plasma urea nitrogen/creatinine mass ratio 9 NRG Serum or plasma creatinine measurement with calculation of estimated glomerular filtration rate > NRG Serum or plasma glucose measurement (mass/volume) 81 mg/dL 70-105 Serum or plasma calcium measurement (mass/volume) 9.7 mg/dL 8.5-10.1 Methicillin resistant Staphylococcus aureus (MRSA) screening culture - 10:15 Methicillin resistant Staphylococcus aureus (MRSA) screening culture NEG NRG Capillary blood glucose measurement by glucometer (mass/volume) - 07/25/17 08: 23 Capillary blood glucose measurement by glucometer (mass/volume) 88 mg/dL 70-110 CBC - 11/06/17 12:08 WHITE BLOOD CELL COUNT 14.0 Thousand/uL 3.8-10.8 RED BLOOD CELL COUNT 5.03 Million/uL 3.80-5.10 HEMOGLOBIN 16.1 g/dL 11.7-15.5 HEMATOCRIT 46.9 % 35.0-45.0 MCV 93.2 fL 80.0-100.0 MCH 32.0 pg 27.0-33.0 MCHC 34.3 g/dL 32.0-36.0 RDW 12.5 % 11.0-15.0 PLATELET COUNT 399 Thousand/uL 140-400 MPV 10.2 fL 7.5-12.5 ABSOLUTE NEUTROPHILS 7588 cells/uL 5983-9852 ABSOLUTE LYMPHOCYTES 4158 cells/uL 850-3900 ABSOLUTE MONOCYTES 1274 cells/uL 200-950 ABSOLUTE EOSINOPHILS 854 cells/uL 15-500 ABSOLUTE BASOPHILS 126 cells/uL 0-200 NEUTROPHILS 54.2 % NRG LYMPHOCYTES 29.7 % NRG MONOCYTES 9.1 % NRG EOSINOPHILS 6.1 % NRG BASOPHILS 0.9 % NRG TSH - 11/06/17 12:08 TSH 1.04 mIU/L NRG Bacteria identification in isolate by anaerobe culture - 03/04/18 09:06 Bacteria identification in isolate by anaerobe culture NOANA NRG Gram stain microscopy - 03/04/18 09:06 GRAM STAIN RESULT NO WBC'S OR BACTERIA OBSERVED NRG Bacteria identification in wound by culture - 03/04/18 09:06 Bacteria identification in wound by culture [id number] NRG FREE TEXT EXTERNAL SENSITIVITY REPORTED AT 0815, 03-06-18 NRG QUANTITY OF GROWTH Moderate Growth NRG CALL POSITIVES (F1 HELP) CALLED TO JEAN MARIE/BARBRA AT 0819, 03-06-2018/KD NRG Bacterial susceptibility panel - 03/04/18 09:06 Oxacillin susceptibility test by minimum inhibitory concentration > = NRG Gentamicin susceptibility test by minimum inhibitory concentration < = NRG Clindamycin susceptibility test by minimum inhibitory concentration <= NRG Erythromycin susceptibility test by minimum inhibitory concentration <= NRG Trimethoprim/sulfamethoxazole susceptibility test by minimum inhibitoryconcentration S NRG Vancomycin susceptibility test by minimum inhibitory concentration < = NRG Levofloxacin susceptibility test by minimum inhibitory concentration 0.25 NRG Rifampin susceptibility test by minimum inhibitory concentration <= NRG Tetracycline susceptibility test by minimum inhibitory concentration <= NRG Linezolid susceptibility test by minimum inhibitory concentration 2 NRG Methicillin resistant Staphylococcus aureus (MRSA) screening culture - 09:45 Methicillin resistant Staphylococcus aureus (MRSA) screening culture NEG NRG Capillary blood glucose measurement by glucometer (mass/volume) - 03/19/18 07: 20 Capillary blood glucose measurement by glucometer (mass/volume) 105 mg/dL 70-110 Encounters ACCT No. Visit Date/Time Discharge Status Pt. Type Provider Facility Loc./Unit Complaint [id number] 2013 10:42:00 2013 10[facility]42[id number] 11:49:00 03/24/2013 11[facility]49:00 [id number]/24/2013 10:34:00 02/24/2013 10:34:00 [id number]2012 10:51:00 12/23/2012 10:51:00 DIS Outpatient THORNTON DPM, [facility] AAAAAA [id number] 11/25/2012 11:50:00 11/25/2012 11:50:00 DIS Outpatient THORNTON DPM, [facility] AAAAAA [id number] 10/21/2012 11:04:00 10/21/2012 11:04:00 DIS Outpatient THORNTON DPM, [facility] AAAAAA [id number] 04/03/2012 13:23:00 Document Registration [id number] 03/03/2012 12:08:00 Document Registration [id number] 02/14/2012 16:37:00 Document Registration [id number] 02/01/2012 10:52:00 Document Registration [id number] 01/04/2012 11:12:00 Document Registration [id number] 12/31/2011 15:27:00 Document Registration [id number] 11/19/2011 11:45:00 Document Registration [id number] 10/12/2011 08:25:00 Document Registration [id number] 10/03/2016 08:36:00 Document Registration [id number] 07/16/2013 07:55:00 07/16/2013 23:59:59 CLS Outpatient Shivani DONNELLY, Bryan Tse [facility] NDBERT [id number] 03/11/2013 10:58:00 03/11/2013 15:40:00 DIS Outpatient Junior CANTU, [facility] OR [id number] 12/09/2012 10:00:00 12/09/2012 23:59:59 CLS Outpatient Andriy DONNELLY, Maximo Clark [facility] HMG.NEURO [id number] 09/06/2016 10:06:00 Document Registration [id number] 11/27/2016 16:08:00 Document Registration [id number] 07/18/2016 15:28:00 09/26/2016 15:45:00 DIS Outpatient YING GENAO [id number] 11/26/2016 08:05:00 Document Registration [id number] 10/03/2018 16:30:00 10/03/2018 23:59:59 CLS Outpatient ASPEN DONNELLY, GEO [facility] [id number] 11/06/2017 11:00:00 Document Registration [id number] 10/02/2018 05:37:00 10/02/2018 12:21:00 DIS Outpatient YING GENAO MD Via [facility] PREOP RIGHT 5TH FINGER TRIGGER RELEASE [id number] 07/15/2018 08:24:00 07/15/2018 23:59:59 CLS Outpatient YING JONES MD [facility] WOUNDCARE [id number] 07/10/2018 09:18:00 07/10/2018 23:59:59 CLS Outpatient YING GENAO MD [facility] RAD ROTATOR CUFF TEAR PARTIAL RIGHT. [id number] 07/10/2018 08:13:00 07/10/2018 23:59:59 CLS Outpatient AUSTIN RAMIREZ APRN [facility] WOUNDCARE [id number] 05/02/2018 15:06:00 05/02/2018 23:59:59 CLS Outpatient AUSTIN RAMIREZ APRN [facility] WOUNDCARE [id number] 04/28/2018 14:56:00 04/28/2018 23:59:59 CLS Outpatient YING GENAO MD [facility] RAD DERANGEMENT OF OTHER LATERAL MENISCUS [id number] 04/01/2018 14:10:00 04/01/2018 23:59:59 CLS Outpatient AUSTIN RAMIREZ APRN [facility] WOUNDCARE [id number] 03/25/2018 08:11:00 03/25/2018 23:59:59 CLS Outpatient AUSTIN RAMIREZ APRN [facility] WOUNDCARE [id number] 03/19/2018 07:05:00 03/19/2018 11:42:00 DIS Outpatient YING GENAO MD [facility] LEFT HAND LONG TRIGGER FINGER [id number] 03/18/2018 08:09:00 03/18/2018 23:59:59 CLS Outpatient AUSTIN RAMIREZ APRN [facility] WOUNDCARE [id number] 03/13/2018 09:31:00 03/13/2018 10:37:00 DIS Outpatient YING GENAO MD [facility] PREOP LEFT HAND LONG TRIGGER FINGER [id number] 03/11/2018 08:26:00 03/11/2018 23:59:59 CLS Outpatient ASHLEY, AUSTIN R BARREL STAVE INSPECTOR [facility] WOUNDCARE [id number] 03/06/2018 08:56:00 03/06/2018 23:59:59 CLS Outpatient ASHLEY, AUSTIN R BARREL STAVE INSPECTOR [facility] WOUNDCARE [id number] 03/06/2018 00:10:00 03/06/2018 23:59:59 CLS Preadmit CHLOE BALDWIN MD [facility] ONC [id number] 12/05/2017 10:15:00 03/05/2018 00:01:00 DIS Outpatient CHLOE BALDWIN MD [facility] ONC [id number] 03/04/2018 08:20:00 03/04/2018 23:59:59 CLS Outpatient ASHLEY, AUSTIN R BARREL STAVE INSPECTOR [facility] WOUNDCARE [id number] 02/25/2018 08:39:00 02/25/2018 23:59:59 CLS Outpatient ASHLEY, AUSTIN R BARREL STAVE INSPECTOR [facility] WOUNDCARE [id number] 02/20/2018 13:10:00 02/20/2018 23:59:59 CLS Outpatient GEO LOUISE MD [facility] RAD R05 CHRONIC COUGH [id number] 02/18/2018 07:57:00 02/18/2018 23:59:59 CLS Outpatient ASHLEY, AUSTIN R BARREL STAVE INSPECTOR [facility] WOUNDCARE [id number] 02/11/2018 07:58:00 02/11/2018 23:59:59 CLS Outpatient ASHLEY, AUSTIN R BARREL STAVE INSPECTOR [facility] WOUNDCARE [id number] 02/04/2018 07:58:00 02/04/2018 23:59:59 CLS Outpatient ASHLEY, AUSTIN R BARREL STAVE INSPECTOR [facility] WOUNDCARE [id number] 12/05/2017 09:56:00 12/05/2017 23:59:59 CLS Outpatient GEO LOUISE MD [facility] RAD Z12.31 SCREENING [id number] 12/03/2017 10:27:00 12/03/2017 23:59:59 CLS Outpatient ASHLEY, AUSTIN R BARREL STAVE INSPECTOR [facility] WOUNDCARE [id number] 11/26/2017 10:20:00 11/26/2017 23:59:59 CLS Outpatient TAMMY RAMIREZN R BARREL STAVE INSPECTOR [facility] WOUNDCARE [id number] 11/19/2017 10:12:00 11/19/2017 23:59:59 CLS Outpatient TAMMY RAMIREZN R BARREL STAVE INSPECTOR [facility] WOUNDCARE [id number] 11/12/2017 10:18:00 11/12/2017 23:59:59 CLS Outpatient AUSTIN RAMIREZ R BARREL STAVE INSPECTOR [facility] WOUNDCARE [id number] 07/25/2017 08:15:00 07/25/2017 14:41:00 DIS Outpatient SUSAN RAMOS MD [facility] RECURRENT ABDOMINAL INCISIONAL HERNIA [id number] 07/22/2017 09:58:00 07/22/2017 13:29:00 DIS Outpatient SUSAN RAMOS MD [facility] PREOP OPEN RECURRENT INCISIONAL HERNIA REPAIR WITH MESH [id number] 07/09/2017 09:51:00 07/09/2017 23:59:59 CLS Outpatient AUSTIN RAMIREZ R BARREL STAVE INSPECTOR [facility] WOUNDCARE [id number] 07/02/2017 10:08:00 07/02/2017 23:59:59 CLS Outpatient TAMMY RAMIREZN R BARREL STAVE INSPECTOR [facility] WOUNDCARE [id number] 06/25/2017 08:03:00 06/25/2017 23:59:59 CLS Outpatient TAMMY RAMIREZN R BARREL STAVE INSPECTOR [facility] WOUNDCARE [id number] 04/23/2017 11:19:00 04/29/2017 16:00:00 DIS Outpatient TAMMY RAMIREZN R BARREL STAVE INSPECTOR [facility] WOUNDCARE [id number] 03/21/2017 07:45:00 03/22/2017 15:15:00 DIS Outpatient SUSAN RAMOS MD [facility] ABDOMINAL VENTRAL INCISIONAL HERNIA [id number] 03/14/2017 09:58:00 03/14/2017 11:01:00 DIS Outpatient SUSAN RAMOS MD [facility] PREOP ABDOMINAL VENTRAL INCISIONAL HERNIA [id number] 02/06/2017 06:00:00 02/06/2017 09:32:00 DIS Outpatient YING GENAO MD [facility] TRIGGER FINGER [id number] 12/04/2016 08:21:00 02/03/2017 00:01:00 DIS Outpatient NEY ANDERSEN MD [facility] ONC [id number] 01/30/2017 12:30:00 01/30/2017 15:00:00 DIS Emergency DARA BROOKS [facility] ER SORE ON LEFT FOOT [id number] 01/30/2017 11:45:00 01/30/2017 12:42:00 DIS Outpatient YING GENAO MD [facility] PREOP TRIGGER FINGERS RT LONG AND RT RING [id number] 11/29/2016 11:12:00 11/29/2016 23:59:59 CLS Outpatient NEY ANDERSEN MD [facility] RAD SCREENING [id number] 11/29/2016 10:57:00 11/29/2016 23:59:59 CLS Outpatient GEO LOUISE MD [facility] RAD PELVIC PAIN [id number] 07/17/2016 09:08:00 07/17/2016 23:59:59 CLS Outpatient GEO LOUISE MD [facility] CARD R11.2 [id number] 07/11/2016 08:10:00 07/11/2016 15:00:00 DIS Outpatient YING GENAO MD [facility] RIGHT TORN ROTATOR CUFF [id number] 07/04/2016 11:40:00 07/04/2016 12:17:00 DIS Outpatient YING GENAO MD [facility] PREOP RIGHT TORN ROTATOR CUFF [id number] 05/07/2016 13:04:00 06/19/2016 00:01:00 DIS Outpatient NEY ANDERSEN MD [facility] ONC [id number] 05/01/2016 09:39:00 05/01/2016 23:59:59 CLS Outpatient NEY ANDERSEN MD [facility] RAD ABNORMAL LFTS [id number] 12/21/2015 14:29:00 02/21/2016 00:01:00 DIS Outpatient NEY ANDERSEN MD [facility] ONC [id number] 12/28/2015 08:40:00 12/28/2015 13:40:00 DIS Outpatient YING GENAO MD [facility] SDC RIGHT SHOULDER TEAR [id number] 12/16/2015 12:43:00 12/16/2015 13:53:00 DIS Outpatient YIGN GENAO MD [facility] PREOP RIGHT SHOULDER TEAR [id number] 11/29/2015 09:52:00 11/29/2015 23:59:59 CLS Outpatient NEY ANDERSEN MD [facility] RAD SCREENING [id number] 09/12/2015 20:58:00 09/13/2015 06:55:00 DIS Outpatient GEO LOUISE MD [facility] [facility] SLEEP CINTHYA [id number] 10/08/2018 08:00:00 PEN Preadmit YING GENAO MD Via [facility] SDC RIGHT FIFTH TRIGGER FINGER [id number] 05/15/2018 10:50:00 Document Registration [id number] 05/15/2018 09:44:00 Document Registration [id number] 05/08/2018 09:14:00 Document Registration [id number] 05/06/2018 10:48:00 Document Registration [id number] 08/31/2015 14:07:00 Document Registration [id number] 08/19/2015 13:11:00 Document Registration [id number] 07/31/2013 00:01:00 08/12/2013 16:37:00 DIS Outpatient DIVYA THORNTON DPM [facility] [id number] 08/12/2013 09:45:00 08/12/2013 09:45:00 DIS Outpatient SHIVANI DONNELLY, BRYAN Tse [facility] [id number] 08/06/2013 10:25:00 08/06/2013 10:25:00 DIS Outpatient SHIVANI DONNELLY, [facility] [id number] 06/30/2013 00:01:00 07/30/2013 23:59:00 DIS Outpatient JUNIOR CANTU, [facility] [id number] 07/30/2013 12:11:00 07/30/2013 12:11:00 DIS Outpatient SHIVANI DONNELLY, [facility] [id number] 07/23/2013 10:30:00 07/23/2013 10:30:00 DIS Outpatient SHIVANI DONNELLY, [facility] [id number] 07/16/2013 10:34:00 07/16/2013 10:34:00 DIS Outpatient SHIVANI DONNELLY, [facility] [id number] 07/10/2013 09:08:00 07/10/2013 09:08:00 DIS Outpatient SHIVANI DONNELLY, [facility] [id number] 06/30/2013 09:09:00 06/30/2013 09:09:00 DIS Outpatient SHIVANI DONNELLY, [facility] [id number] 05/31/2013 00:01:00 06/29/2013 23:59:00 DIS Outpatient JUNIOR CANTU, [facility] [id number] 06/22/2013 10:35:00 06/22/2013 10:35:00 DIS Outpatient SHIVANI DONNELLY, [facility] [id number] 06/16/2013 09:22:00 06/16/2013 09:22:00 DIS Outpatient SHIVANI DONNELLY, [facility] [id number] 06/09/2013 10:09:00 06/09/2013 10:09:00 DIS Outpatient SHIVANI DONNELLY, [facility] [id number] 06/02/2013 08:31:00 06/02/2013 08:31:00 DIS Outpatient SHIVANI DONNELLY, [facility] [id number] 05/18/2013 10:55:00 05/30/2013 23:59:00 DIS Outpatient JUNIOR CANTU, [facility] [id number] 05/26/2013 09:02:00 05/26/2013 09:02:00 DIS Outpatient SHIVANI DONNELLY, [facility] [id number] 05/18/2013 10:39:00 05/18/2013 10:39:00 DIS Outpatient SHIVANI DONNELLY, [facility] [id number] 05/12/2013 08:58:00 05/12/2013 08:58:00 DIS Outpatient SHIVANI DONNELLY, [facility] [id number] 05/05/2013 09:46:00 05/05/2013 09:46:00 DIS Outpatient SHIVANI DONNELLY, [facility] [id number] 04/28/2013 09:23:00 04/28/2013 09:23:00 DIS Outpatient SHIVANI DONNELLY, [facility] [id number] 2013 15:30:00 2013 15:30:00 DIS Outpatient SHIVANI DONNELLY, [facility] [id number] 04/14/2013 09:19:00 04/14/2013 09:19:00 DIS Outpatient SHIVANI DONNELLY, [facility] [id number] 04/07/2013 12:46:00 04/07/2013 12:46:00 DIS Outpatient SHIVANI DONNELLY, [facility] [id number] 03/31/2013 10:01:00 03/31/2013 10:01:00 DIS Outpatient SHIVANI DONNELLY, [facility] [id number] 03/03/2013 13:33:00 03/03/2013 13:33:00 DIS Outpatient SHIVANI DONNELLY, [facility] [id number] 02/24/2013 09:29:00 02/24/2013 09:29:00 DIS Outpatient SHIVANI DONNELLY, [facility] [id number] 02/17/2013 09:16:00 02/17/2013 09:16:00 DIS Outpatient SHIVANI DONNELLY, [facility] [id number] 02/10/2013 13:26:00 02/10/2013 13:26:00 DIS Outpatient SHIVANI DONNELLY, [facility] [id number] 02/03/2013 09:20:00 02/03/2013 09:20:00 DIS Outpatient SHIVANI DONNELLY, [facility] [id number] 01/27/2013 15:21:00 01/27/2013 15:21:00 DIS Outpatient SHIVANI DONNELLY, [facility] [id number] 01/15/2013 13:14:00 01/15/2013 13:14:00 DIS Outpatient SHIVANI DONNELLY, [facility] [id number] 01/08/2013 10:45:00 01/08/2013 10:45:00 DIS Outpatient SHIVANI DONNELLY, [facility] [id number] 01/01/2013 10:59:00 01/01/2013 10:59:00 DIS Outpatient SHIVANI DONNELLY, [facility] [id number] 12/26/2012 09:35:00 12/26/2012 09:35:00 DIS Outpatient SHIVANI DONNELLY, [facility] [id number] 12/18/2012 14:01:00 12/18/2012 14:01:00 DIS Outpatient SHIVANI DONNELLY, [facility] [id number] 12/16/2012 09:10:00 12/17/2012 10:58:00 DIS Outpatient SHIVANI DONNELLY, [facility] [id number] 12/11/2012 14:07:00 12/11/2012 14:07:00 DIS Outpatient SHIVANI DONNELLY, [facility] [id number] 12/04/2012 10:26:00 12/04/2012 10:26:00 DIS Outpatient SHIVANI DONNELLY, [facility] [id number] 11/27/2012 08:59:00 11/27/2012 12:50:00 DIS Outpatient ROLAN DONNELLY, [facility] [id number] 11/13/2012 11:56:00 11/13/2012 11:56:00 DIS Outpatient SHIVANI DONNELLY, [facility] [id number] 11/06/2012 11:48:00 11/06/2012 11:48:00 DIS Outpatient SHIVANI DONNELLY, [facility] [id number] 10/30/2012 11:36:00 10/30/2012 11:36:00 DIS Outpatient SHIVANI DONNELLY, [facility] [id number] 10/24/2012 10:58:00 10/24/2012 10:58:00 DIS Outpatient SHIVANI DONNELLY, [facility] [id number] 10/16/2012 16:05:00 10/16/2012 16:05:00 DIS Outpatient SHIVANI DONNELLY, BRYAN Tse [facility] [id number] 10/10/2012 13:20:00 10/10/2012 23:59:59 CLS Outpatient [id number] 07/17/2012 14:31:00 Document Registration [id number] 06/19/2012 12:49:00 Document Registration [id number] 04/17/2012 13:26:00 Document Registration [id number] 08/31/2015 14:07:00 08/31/2015 23:59:59 CLS Outpatient GEO LOUISE MD [facility] RAD [id number] 08/19/2015 13:11:00 08/19/2015 23:59:59 CLS Outpatient BRAYDEN WRIGHT Via [facility] RAD [id number] 06/21/2016 08:46:00 Document Registration
[2018-10-08] MEDS ORDERED: ceFAZolin 1,000 MG/10 ML (ANCEF) VIAL ONE (06:26)
[2018-10-08] MEDS ORDERED: NS (IVPB) 50 ML ONE (06:27)
[2018-10-08 06:42] VITALS: BP 124/82
[2018-10-08] MEDS ORDERED: ceFAZolin INJECTION 1,000 MG in NS (IVPB) 50 ML IV ONE (07:00)
[2018-10-08] MEDS ORDERED: PROPOFOL INJECTION 50 ML IV ONE (07:10)
[2018-10-08] MEDS ORDERED: ONDANSETRON 4 MG/2 ML (SDV) Z0FRAN IVP PRN (07:15)
[2018-10-08] MEDS ORDERED: BUPIVACAINE 0.5% 30 ML (SENSORCAINE) VIAL ONE (07:15)
[2018-10-08] MEDS ORDERED: morphine INJ 10 MG/ML 1ML (SYR OR VIAL) IVP ONE (07:15)
[2018-10-08] MEDS ORDERED: MEPERIDINE (DEMEROL) INJ 50 MG/ML IVP ONE (07:15)
[2018-10-08] MEDS ORDERED: LIDOCAINE 1% INJ 20 ML 20 ML VIAL ONE (07:15)
[2018-10-08] MEDS ORDERED: MIDAZOLAM 2 MG/2 ML (VERSED) VIAL ONE (07:15)
[2018-10-08] MEDS ORDERED: fentaNYL INJECTION 100 MCG/2 ML AMP ONE (07:17)
--- NOTE | 2018-10-08 07:26 | Progress Note-Pre Operative ---
Pre-Operative Progress Note H&P Reviewed The H&P was reviewed, patient examined and no changes noted. Date Seen by Provider: Oct 08, 2018 Time Seen by Provider: 07:11 Date H&P Reviewed: Oct 08, 2018 Time H&P Reviewed: 07:11 Pre-Operative Diagnosis: right small finger trigger finger YING GENAO MD Oct 08, 2018 07:25
--- NOTE | 2018-10-08 07:26 | Progress Note-Post Operative ---
Post-Operative Progess Note Surgeon (s)/Sales Audit Clerk (s) Surgeon YING GENAO MD Sales Audit Clerk: Daron Vann Pre-Operative Diagnosis right small finger trigger finger Post-Operative Diagnosis right small finger trigger finger Procedure & Operative Findings Date of Procedure 10/08/18 Procedure Performed/Findings right small finger A1 marguerite release Anesthesia Type MAC plus local Estimated Blood Loss Estimated blood loss (mL): minimal Specimens/Packing Specimens Removed none Packing: none YING GENAO MD Oct 08, 2018 07:26
[2018-10-08] MEDS ORDERED: HYDROcodone/APAP 5 MG/325 MG (LORTAB) TAB PO PRN (07:30)
[2018-10-08 08:35] VITALS: BP 125/72
[2018-10-08 09:05] VITALS: BP 103/62
[2018-10-08] MEDS ORDERED: HYDR-3812 PO (09:24)
[2018-10-08 09:35] VITALS: BP 100/46
--- NOTE | 2018-10-08 09:55 | Anesthesia-General Post-Op ---
MAC Patient Condition Mental Status/LOC: Same as Preop Cardiovascular: Satisfactory Nausea/Vomiting: Absent Respiratory: Satisfactory Pain: Controlled Complications: Absent Post Op Complications Complications None Follow Up Care/Instructions Patient Instructions None needed. Anesthesiology Discharge Order Discharge Order Patient is doing well, no complaints, stable vital signs, no apparent adverse anesthesia problems. No complications reported per nursing. MICHEL MATAMOROS CRNA Oct 08, 2018 09:55
[2018-10-08] MEDS ORDERED: LACTATED RINGERS 1,000 ML IV SCH (10:15)
--- NOTE | 2018-10-08 12:48 | OPERATIVE REPORT ---
DATE OF SERVICE: 10/08/2018 PREOPERATIVE DIAGNOSIS: Right small finger trigger finger. POSTOPERATIVE DIAGNOSIS: Right small finger trigger finger. PROCEDURE: Right small finger A1 marguerite release. SURGEON: Lambert Genao MD HYDROSTATIC TESTER: DAPHNIE Najera, who assisted throughout the procedure and closed the incision. ANESTHESIA: Monitored anesthesia care plus local by Gaurav Ngo CRNA. TOURNIQUET TIME: Three minutes at 250 mmHg. ESTIMATED BLOOD LOSS: Minimal. DRAINS: None. COMPLICATIONS: None. POSTOPERATIVE PLAN: Early range of motion and progressive activities as symptoms allow. The patient was transferred to the recovery room awake in stable condition. STATEMENT OF MEDICAL NECESSITY: The patient is a 53-year-old right hand dominant female with complaints of right small finger catching and locking. She was tender over A1 marguerite. She reported functional impairment and due to failure to improve with conservative measures, the patient elected to proceed with surgical intervention. DESCRIPTION OF PROCEDURE: After risks and benefits of the procedure were discussed and questions were answered and informed consent was signed and placed on the chart, the operative site was confirmed in the preoperative holding area, initialed by the surgeon. The patient was then transferred to the operating room and after adequate levels of monitored anesthesia care were obtained, a timeout was called confirming the operative site and under sterile conditions, incision site was infiltrated with combination of plain lidocaine and plain Marcaine. The right upper extremity was then prepped and draped in the usual sterile fashion with the arm elevated. The tourniquet was inflated to 250 mmHg. A longitudinal incision was made over the A1 marguerite. The underlying soft tissues were bluntly dissected exposing the A1 marguerite, which was then incised longitudinally until fully released. The flexor tendons demonstrated no gross abnormalities. The finger was taken through range of motion with full MCP, DIP and PIP flexion and extension with no catching or locking noted. The tourniquet was deflated for a total tourniquet time of three minutes. Pressure was used for hemostasis. The wound was copiously irrigated and closed with 4-0 nylon in simple interrupted fashion. A soft dressing was applied and the patient was transferred to the recovery room awake and in stable condition. Job ID: [id number] DocumentID: [id number] Dictated Date: 10/08/2018 07:55:32 Director Trading Date: 10/08/2018 12:47:29 Dictated By: LAMBERT GENAO MD
== END 2018-10-08 09:35 | disposition home or self-care (01) ==
LOC: SDC 05:48
PROVIDERS: ATTEND Orthopaedic Surgery
DX: M65.351 Trigger finger, right little finger (principal); Z11.2 Encounter for screening for other bacterial diseases; I10 Essential (primary) hypertension; E78.5 Hyperlipidemia, unspecified; E11.42 Type 2 diabetes mellitus with diabetic polyneuropathy; E03.9 Hypothyroidism, unspecified; K21.9 Gastro-esophageal reflux disease without esophagitis; F32.9 Major depressive disorder, single episode, unspecified; F41.9 Anxiety disorder, unspecified; M41.9 Scoliosis, unspecified; F43.10 Post-traumatic stress disorder, unspecified; G61.0 Guillain-Barre syndrome; Z86.718 Personal history of other venous thrombosis and embolism; Z86.711 Personal history of pulmonary embolism; Z79.899 Other long term (current) drug therapy; Z79.84 Long term (current) use of oral hypoglycemic drugs; Z87.891 Personal history of nicotine dependence; E66.9 Obesity, unspecified; Z68.32 Body mass index [BMI] 32.0-32.9, adult
CPT/HCPCS: 82962; 87081

== ENCOUNTER 2018-12-10 15:13 | Outpatient (RCR) | payer MEDICARE, MEDICAID ==
[2018-12-10 15:49] LABS: ALANINE AMINOTRANSFERASE 27 U/L (0-55); ALKALINE PHOSPHATASE 106 U/L (40-136); BILIRUBIN,TOTAL 0.3 MG/DL (0.1-1.0); BUN/CREATININE RATIO 9; CALCIUM 9.2 MG/DL (8.5-10.1); CARBON DIOXIDE 25 MMOL/L (21-32); CHLORIDE 104 MMOL/L (98-107); CREATININE SERUM 0.76 MG/DL (0.60-1.30); GFR ESTIMATED > 60; GLUCOSE 102 MG/DL (70-105); POTASSIUM 4.2 MMOL/L (3.6-5.0); SODIUM 138 MMOL/L (135-145)
== END 2019-03-10 | disposition home or self-care (01) ==
LOC: ONC 15:13
PROVIDERS: ATTEND Internal Medicine Hematology & Oncology
DX: D72.828 Other elevated white blood cell count (principal); E11.9 Type 2 diabetes mellitus without complications; E03.9 Hypothyroidism, unspecified; I10 Essential (primary) hypertension; F17.210 Nicotine dependence, cigarettes, uncomplicated; M19.91 Primary osteoarthritis, unspecified site; E66.9 Obesity, unspecified; Z68.32 Body mass index [BMI] 32.0-32.9, adult; Z86.718 Personal history of other venous thrombosis and embolism; Z79.84 Long term (current) use of oral hypoglycemic drugs; Z79.899 Other long term (current) drug therapy
CPT/HCPCS: 80053; 83036; 99213

== ENCOUNTER → 2019-01-01 | Outpatient (CLI) | payer MEDICARE, MEDICAID ==
--- NOTE | 2019-01-01 21:09 | Diagnostic Imaging Report ---
INDICATION: Routine screening. COMPARISON: Prior mammogram from 12/05/2017 and 11/29/2016. EXAMINATION: 2D and 3D bilateral screening mammography was performed with CAD. The current study was also evaluated with a Computer Aided Detection (CAD) system. FINDINGS: Scattered fibroglandular densities are identified, bilaterally. The parenchymal pattern is stable. No mass or malignant appearing microcalcifications are seen. The axillae are unremarkable. IMPRESSION: No mammographic features suspicious for malignancy are identified. ACR BI-RADS Category 1: Negative. Result letter will be mailed to the patient. Note: At least 10% of breast cancer is not imaged by mammography. Dictated by: Dictated on workstation # [id number]
== END ==
LOC: RAD 11:11
PROVIDERS: ATTEND Family Medicine
DX: Z12.31 Encounter for screening mammogram for malignant neoplasm of breast (principal)
CPT/HCPCS: 77067

== ENCOUNTER → 2019-01-09 | Outpatient (CLI) | payer MEDICARE, MEDICAID ==
--- NOTE | 2019-01-09 19:44 | Diagnostic Imaging Report ---
PROCEDURE: MRI lumbar spine. TECHNIQUE: Multiplanar, multisequence MRI of the lumbar spine was performed without contrast. DATE: January 09, 2019. COMPARISON: CT abdomen and pelvis, May 01, 2016. INDICATION: 53-year-old female, low back pain, scoliosis, left hip pain and left lower extremity numbness. FINDINGS: There is a lumbar levoscoliosis. The anterior to posterior alignment of the visualized thoracolumbar spine is unremarkable. There is no evidence of diffuse marrow infiltrating or replacing process. There is mild disc height loss at L2-L3. There is moderate to severe disc height loss at L3-L4, L4-L5, and L5-S1. There are adjacent Modic endplate degenerative related marrow changes. There is no compression deformity. There is no identified concerning focal bone lesion. The visualized cord and conus medullaris is unremarkable and terminates at the L1-L2 level. L1-L2: There is no disc bulge. The facet joints and ligamentum flavum are unremarkable. There is no foraminal narrowing. There is no spinal canal stenosis. L2-L3: There is mild diffuse disc bulge. The facet joints and ligamentum flavum are unremarkable. There is moderate right foraminal narrowing. There is no spinal canal stenosis. L3-L4: There is diffuse disc bulge eccentric to the right. There are right greater than left facet degenerative changes. There is severe narrowing of the right lateral recess. There is mild left and severe right foraminal narrowing. There is moderate spinal canal stenosis. L4-L5: There is diffuse disc bulge eccentric to the left. There are advanced bilateral facet degenerative changes. There is moderate to severe right and severe left foraminal narrowing. There is severe spinal canal stenosis. L5-S1: There is a broad-based posterior disc protrusion. There are very mild left facet degenerative changes. There is mild right and severe left foraminal narrowing. There is no spinal canal stenosis. IMPRESSION: Lumbar levoscoliosis with multilevel disc and facet degenerative changes of the lumbar spine, as described specifically level by level above. Foraminal and spinal stenosis is most notable at L2-L3, L3-L4, L4-L5 and L5-S1. Dictated on workstation # [id number]
== END ==
LOC: RAD 13:50
PROVIDERS: ATTEND Family Medicine
DX: M51.37 Other intervertebral disc degeneration, lumbosacral region (principal); M48.07 Spinal stenosis, lumbosacral region; M47.817 Spondylosis without myelopathy or radiculopathy, lumbosacral region; M51.27 Other intervertebral disc displacement, lumbosacral region; M46.86 Other specified inflammatory spondylopathies, lumbar region
CPT/HCPCS: 72148

== ENCOUNTER → 2019-01-16 | Outpatient (CLI) | payer MEDICARE, MEDICAID ==
--- NOTE | 2019-01-16 12:01 | Diagnostic Imaging Report ---
EXAMINATION: Magnetic resonance imaging of the left knee without intravenous contrast DATE: January 16, 2019. COMPARISON: None. INDICATION: 53-year-old female, left knee pain. TECHNIQUE: Multiplanar, multisequence non contrast enhanced MR imaging was accomplished. FINDINGS: MENISCI: There is signal within the anterior horn, body, and posterior horn of the medial meniscus which does not definitely contact an articular surface. This does not meet strict MRI criteria for definite diagnosis of meniscal tear. There is no medial meniscal extrusion. There is no parameniscal cyst. The lateral meniscus is intact. LIGAMENTS AND TENDONS: The anterior and posterior cruciate ligaments are intact. The medial collateral ligament is intact. The iliotibial band, mid third lateral capsular ligament, fibular collateral ligament, biceps femoris tendon and conjoined tendon are intact. The quadriceps tendon and patella ligament are intact. JOINT: There is mild fraying and superficial irregularity of the cartilage of the median patellar ridge. There is mild thinning and superficial irregularity of the cartilage of the mid weightbearing portion of the medial femoral condyle. There is no knee joint effusion, prominent synovitis, or intra-articular body. BONE: There is unremarkable bone marrow signal. Specifically, negative for fracture, osteomyelitis, osteonecrosis, or marrow replacing process. BURSAE AND SOFT TISSUES: There is a small slitlike Minor's cyst. There is very mild nonspecific medial and lateral as well as anterior subcutaneous edema at the level of the proximal tibia. IMPRESSION: 1. Signal in the medial meniscus, not meeting strict MRI criteria for definite diagnosis of tear. No medial meniscal extrusion or parameniscal cyst. 2. Intact lateral meniscus. 3. Intact anterior and posterior crucial ligaments. 4. Very minimal patellofemoral and medial compartment arthritis. No knee joint effusion. 5. Small slitlike Minor's cyst. 6. No acute fracture, bone contusion, or evidence of osteonecrosis. Dictated by: Dictated on workstation # [id number]
== END ==
LOC: RAD 07:37
PROVIDERS: ATTEND Family Medicine
DX: M71.22 Synovial cyst of popliteal space [Baker], left knee (principal)
CPT/HCPCS: 73721

== ENCOUNTER 2019-04-08 22:53 | Emergency (ER) | payer MEDICAID, MEDICARE ==
[~2019-04-08] VITALS: Ht 152.4 cm; Wt 81.2 kg
[2019-04-09] MEDS ORDERED: BENZ-13 PO (00:19)
--- NOTE | 2019-04-09 00:20 | ED Cough/URI ---
General Chief Complaint: Cough/Cold/Flu Symptoms Stated Complaint: CHEST CONGESTION;COUGH Nursing Triage Note: AMBULATORY TO ED ROOM 5 WITH C/O WAKING UP THIS AM "WITH A BAD COUGH" BUT STILL WENT TO PHYSICAL THERAPY. STATES SHE THOUGHT IT WOULD GO AWAY AND "TOOK [employer]ONG'S ALLERGY PILLS AND INHALERS". WHEN ASKED SHE STATED THONG IS HER FIANCE AND THEY LIVE TOGETHER. C/O COUGHING UP CLEAR PHLEGM AND HEADACHE TODAY ALSO. Sepsis Screen: No Definite Risk Source: patient Exam Limitations: no limitations History of Present Illness Date Seen by Provider: Apr 09, 2019 Time Seen by Provider: 00:05 Initial Comments Patient presents to ER by private conveyance with her fianc and chief complaint that she has been having a cough since she woke up this morning and has some discomfort in her chest associated with coughing. She denies a history of COPD or asthma. She does smoke about a pack of cigarettes per day. She took some of her kam's breathing treatment and it made no difference. She denies wheezing stridor fevers chills nausea vomiting diarrhea. She does not use breathing treatments of her own. She does have runny nose, sore throat. Allergies and Home Medications Allergies Coded Allergies: No Known Drug Allergies (Unverified , 10/02/18) Home Medications Baclofen 10 Mg Tablet, 10 MG PO TID, (Reported) Bisacodyl 5 Mg Tablet, 5 MG PO DAILY PRN for CONSTIPATION-1ST LINE, (Reported) Hydrocodone/Acetaminophen 1 Each Tablet, 1 EACH PO Q4-6HR PRN for PAIN-MODERATE Prescribed by: FLORA BLANC on 10/08/18 0924 Ibuprofen 200 Mg Capsule, 200 MG PO PRN, (Reported) Levothyroxine Sodium 50 Mcg Tablet, 50 MCG PO DAILY, (Reported) Lisinopril 5 Mg Tablet, 5 MG PO DAILY, (Reported) Metformin HCl 500 Mg Tablet, 500 MG PO BID, (Reported) Multivitamin 1 Each Tablet, 1 EACH PO DAILY, (Reported) Omeprazole 40 Mg Capsule.dr, 40 MG PO DAILY, (Reported) Potassium Chloride 10 Meq Capsule.er, 10 MEQ PO BID, (Reported) Pravastatin Sodium 40 Mg Tablet, 40 MG PO HS, (Reported) Promethazine HCl 25 Mg Tablet, 25 MG PO Q6H PRN for NAUSEA/VOMITING, (Reported) Ranitidine HCl 150 Mg Tablet, 150 MG PO BID, (Reported) Patient Home Medication List Home Medication List Reviewed: Yes Review of Systems Review of Systems Constitutional: No chills, No fever EENTM: No ear discharge, No ear pain Respiratory: cough; No phlegm; short of breath; No stridor, No wheezing Cardiovascular: No chest pain, No edema Gastrointestinal: No abdominal pain, No constipation, No diarrhea Genitourinary: No discharge, No dysuria Past Hpfxzem-Rnzwno-Tsjdmy Hx Patient Social History Alcohol Use: Denies Use Recreational Drug Use: No Type Used: Cigarettes Former Smoker, Quit: Sep 30, 2017 2nd Hand Smoke Exposure: Yes Recent Foreign Travel: No Contact w/Someone Who Travel: No Recent Infectious Disease Expo: No Recent Hopitalizations: No Immunizations Up To Date Tetanus Booster (TDap): Unknown Date of Pneumonia Vaccine: Sep 30, 2012 Seasonal Allergies Seasonal Allergies: No Past Medical History Surgeries: Yes (FOOT X2, BLADDER SLING, SHEMAR CTR, SHEMAR ELBOW, RT SH SCOPE x2 & RCR, HERNIA X5) Adenoidectomy, Orthopedic, Tonsillectomy Respiratory: Yes Pulmonary Embolism Currently Using CPAP: No Currently Using BIPAP: No Cardiac: Yes (HAS GREENFILED FILTER, HX DVT AND PE, SKIP BEATS) Deep Vein Thrombosis, High Cholesterol, Hypertension Neurological: Yes (GUILLIAN BARRE) Headaches /Migraines 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 Disorders: No Female 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 Sexually Transmitted Disease: No HIV/AIDS: No Genitourinary: No Gastrointestinal: Yes (FATTY LIVER) Gastroesophageal Reflux Musculoskeletal: Yes Degenerate Disk Disease, Arthritis, Scoliosis, Chronic Back Pain Endocrine: Yes Hypothyroidsim, Diabetes, Non-Insulin dep HEENT: Yes (GLASSES) Loss of Vision: Bilateral Hearing Impairment: Denies Cancer: No Psychosocial: Yes Anxiety, Depression Integumentary: No Blood Disorders: No Adverse Reaction/Blood Tranf: No (N/A) Family Medical History No Pertinent Family Hx Physical Exam Vital Signs - First Documented 04/08/19 23:30 Temp 97.7 Pulse 87 Resp 18 B/P (MAP) 114/89 (97) O2 Delivery Room Air Capillary Refill : Less Than 3 Seconds Height: 5'0" Weight: 179lbs. 4.0oz. 81.539022gg; 32.0 BMI Method:Stated General Appearance: WD/WN, no apparent distress Eyes: Bilateral Eye Normal Inspection, Bilateral Eye PERRL, Bilateral Eye EOMI HEENT: PERRL/EOMI, normal ENT inspection, TMs normal, pharynx normal Neck: non-tender, full range of motion Respiratory: lungs clear, normal breath sounds, no respiratory distress, no accessory muscle use Cardiovascular: normal peripheral pulses, regular rate, rhythm Progress/Results/Core Measures Suspected Sepsis Recent Fever Within 48 Hours: No Infection Criteria Present: Suspected New Infection New/Unexplained Altered Menta: No Sepsis Screen: No Definite Risk SIRS Temperature:97.7 Pulse: 87 Respiratory Rate: 18 Blood Pressure 114 /89 Mean: 97 Results/Orders My Orders Orders - TABITHA BURR Chest Pa/Lat (2 View) (04/08/19 23:33) Vital Signs/I&O 04/08/19 04/08/19 23:30 23:30 Temp 97.7 Pulse 87 Resp 18 B/P (MAP) 114/89 (97) O2 Delivery Room Air Capillary Refill : Less Than 3 Seconds Blood Pressure Mean: 97 Diagnostic Imaging Diagonstic Imaging: Xray (2v) Plain Films/CT/US/NM/MRI: chest Comments No acute cardiopulmonary process. Reviewed: Reviewed by Me Departure Impression Primary Impression: Upper respiratory infection Qualified Codes: J06.9 - Acute upper respiratory infection, unspecified Disposition: 01 HOME, SELF-CARE Condition: Stable Departure-Patient Inst. Decision time for Depature: 00:18 Referrals: GEO LOUISE MD (PCP/Family) Primary Care Physician Patient Instructions: Viral Upper Respiratory Infection, Adult (DC) Add. Discharge Instructions: Tessalon Perles 1-2 capsules every 6 hours as needed for coughing. Drink plenty of fluids and use hot tea with honey or throat lozenges as necessary. Nasal decongestant such as chlorpheniramine 4 mg every 4 hours as needed. If your symptoms persist for more than 10 days you should follow-up with her primary care doctor for reevaluation. All discharge instructions reviewed with patient and/or family. Voiced un derstanding. Scripts Benzonatate (Tessalon Perle) 100 Mg Capsule 100 MG PO Q6H PRN for COUGH, #20 CAP 0 Refills Prov: TABITHA BURR 04/09/19 Work/School Note: Work Release Form Date Seen in the Emergency Department: Apr 09, 2019 Return to Work: Apr 09, 2019 Restrictions: No Restrictions TABITHA BURR Apr 09, 2019 00:20
[2019-04-09 00:35] VITALS: BP 112/81
--- NOTE | 2019-04-09 06:07 | Diagnostic Imaging Report ---
PA and lateral chest at 1139 hours. INDICATION: Cough, congestion. FINDINGS: The heart size is within normal limits and stable when compared to the CT chest exam of 02/20/2018. The lungs are clear. There is no evidence for failure, pneumonia or for pleural effusion. Mediastinum is not widened. The osseous structures are intact. There is dextroscoliosis of the thoracolumbar spine. This is somewhat more accentuated than noted on the prior exam and this could be related to position. The surgical screw overlying the right humeral head seen previously is again evident. IMPRESSION: There is no evidence for an acute cardiopulmonary abnormality. Dictated by: Dictated on workstation # [id number]
== END 2019-04-09 00:38 | disposition home or self-care (01) ==
LOC: EDUNIT# 22:53 → ER 22:55
DX: J06.9 Acute upper respiratory infection, unspecified (principal); I10 Essential (primary) hypertension; E78.00 Pure hypercholesterolemia, unspecified; G43.909 Migraine, unspecified, not intractable, without status migrainosus; K21.9 Gastro-esophageal reflux disease without esophagitis; E03.9 Hypothyroidism, unspecified; E11.9 Type 2 diabetes mellitus without complications; F41.9 Anxiety disorder, unspecified; F32.9 Major depressive disorder, single episode, unspecified; F17.210 Nicotine dependence, cigarettes, uncomplicated; Z86.711 Personal history of pulmonary embolism; Z79.84 Long term (current) use of oral hypoglycemic drugs; Z90.89 Acquired absence of other organs; Z86.718 Personal history of other venous thrombosis and embolism
CPT/HCPCS: 71046

== ENCOUNTER → 2019-04-28 | Outpatient (CLI) | payer MEDICARE ==
[~2019-04-28] MED LIST changes: +BENZ-13 PO
== END ==
LOC: WOUNDCARE 09:43
PROVIDERS: ATTEND Nurse Practitioner
DX: E11.621 Type 2 diabetes mellitus with foot ulcer (principal); L97.522 Non-pressure chronic ulcer of other part of left foot with fat layer exposed
CPT/HCPCS: 11042; 87070; 87075; 87077; 87205

== ENCOUNTER → 2019-05-05 | Outpatient (CLI) | payer MEDICARE ==
[~2019-05-05] MED LIST changes: -DULO60CA58 PO; +DULO60CA59 PO
--- NOTE | 2019-05-05 14:57 | Diagnostic Imaging Report ---
INDICATION: None pressure ulcer on bottom of great toe.. TECHNIQUE: AP view left foot along with 2 additional views left great toe 9:31 AM. CORRELATION STUDY: None FINDINGS: Diffuse bony demineralization. Os structures intact. No acute bony abnormality. No cruz bony destructive or erosive type change particularly along the region of the great toe. Mild joint space narrowing at the first MTP joint. There is some asymmetric soft tissue prominence of the great toe. No abnormal gas collection. IMPRESSION: 1. Negative for acute bony abnormality about the left foot with attention to the left great toe. No cruz bony destructive change. If further assessment for osteomyelitis is desired, MRI recommended. Dictated by: Dictated on workstation # [id number]
== END ==
LOC: LAB 09:08
PROVIDERS: ATTEND Nurse Practitioner
DX: E11.621 Type 2 diabetes mellitus with foot ulcer (principal); L97.522 Non-pressure chronic ulcer of other part of left foot with fat layer exposed
CPT/HCPCS: 73660

== ENCOUNTER → 2019-05-05 | Outpatient (CLI) | payer MEDICARE | LOC: WOUNDCARE 08:27 | PROVIDERS: ATTEND Nurse Practitioner | DX: E11.621 Type 2 diabetes mellitus with foot ulcer (principal); E11.52 Type 2 diabetes mellitus with diabetic peripheral angiopathy with gangrene; L97.522 Non-pressure chronic ulcer of other part of left foot with fat layer exposed; I96 Gangrene, not elsewhere classified | CPT/HCPCS: 11042 ==

== ENCOUNTER → 2019-05-12 | Outpatient (CLI) | payer MEDICARE | LOC: WOUNDCARE 08:22 | PROVIDERS: ATTEND Nurse Practitioner | DX: E11.621 Type 2 diabetes mellitus with foot ulcer (principal); E11.52 Type 2 diabetes mellitus with diabetic peripheral angiopathy with gangrene; L97.522 Non-pressure chronic ulcer of other part of left foot with fat layer exposed; I96 Gangrene, not elsewhere classified | CPT/HCPCS: 11042 ==

== ENCOUNTER → 2019-05-19 | Outpatient (CLI) | payer MEDICARE | LOC: WOUNDCARE 08:15 | PROVIDERS: ATTEND Nurse Practitioner | DX: E11.621 Type 2 diabetes mellitus with foot ulcer (principal); L97.522 Non-pressure chronic ulcer of other part of left foot with fat layer exposed; E11.52 Type 2 diabetes mellitus with diabetic peripheral angiopathy with gangrene; I96 Gangrene, not elsewhere classified | CPT/HCPCS: 11042 ==

== ENCOUNTER → 2019-05-21 | Outpatient (CLI) | payer MEDICARE | LOC: CARD 11:58 | PROVIDERS: ATTEND Family Medicine | DX: R05 Cough (principal) | CPT/HCPCS: 93306 ==

== ENCOUNTER → 2019-05-26 | Outpatient (CLI) | payer MEDICARE | LOC: WOUNDCARE 08:12 | PROVIDERS: ATTEND Nurse Practitioner | DX: E11.621 Type 2 diabetes mellitus with foot ulcer (principal); L97.522 Non-pressure chronic ulcer of other part of left foot with fat layer exposed; E11.52 Type 2 diabetes mellitus with diabetic peripheral angiopathy with gangrene; I96 Gangrene, not elsewhere classified | CPT/HCPCS: 99212 ==

== ENCOUNTER → 2019-06-11 | Outpatient (CLI) | payer MEDICAID, MEDICARE ==
[2019-06-11 10:54] LABS: BASOPHILS # (AUTO) 0.1 10^3/uL (0.0-0.1); BASOPHILS % (AUTO) 1 % (0-10); EOSINOPHILS # (AUTO) 0.6 10^3/uL (0.0-0.3); EOSINOPHILS % (AUTO) 5 % (0-10); HEMATOCRIT 45 % (35-52); HEMOGLOBIN 14.7 G/DL (11.5-16.0); LYMPHOCYTES # (AUTO) 3.5 X 10^3 (1.0-4.0); LYMPHOCYTES % (AUTO) 30 % (12-44); MEAN CORPUSCULAR HEMOGLOBIN 31 PG (25-34); MEAN CORPUSCULAR HGB CONC 33 G/DL (32-36); MEAN CORPUSCULAR VOLUME 96 FL (80-99); MONOCYTES % (AUTO) 8 % (0-12); NEUTROPHILS # (AUTO) 6.6 X 10^3 (1.8-7.8); NEUTROPHILS % (AUTO) 56 % (42-75); PLATELET COUNT 328 10^3/uL (130-400); RED CELL DISTRIBUTION WIDTH 14.3 % (10.0-14.5); WHITE BLOOD COUNT 11.7 10^3/uL (4.3-11.0)
[2019-06-11 11:11] LABS: ALANINE AMINOTRANSFERASE 31 U/L (0-55); ALBUMIN 3.9 GM/DL (3.2-4.5); ALKALINE PHOSPHATASE 104 U/L (40-136); BILIRUBIN,TOTAL 0.2 MG/DL (0.1-1.0); BUN/CREATININE RATIO 5; CALCIUM 9.1 MG/DL (8.5-10.1); CARBON DIOXIDE 26 MMOL/L (21-32); CHLORIDE 105 MMOL/L (98-107); CREATININE SERUM 0.77 MG/DL (0.60-1.30); GFR ESTIMATED > 60; GLUCOSE 153 MG/DL (70-105); POTASSIUM 4.2 MMOL/L (3.6-5.0); SODIUM 141 MMOL/L (135-145)
== END ==
LOC: EDSTATUS 03-11 10:20 → ONC 08:25
PROVIDERS: ATTEND Internal Medicine Hematology & Oncology
DX: D72.828 Other elevated white blood cell count (principal); E03.8 Other specified hypothyroidism; M13.89 Other specified arthritis, multiple sites; E11.9 Type 2 diabetes mellitus without complications; I10 Essential (primary) hypertension
CPT/HCPCS: 80053; 85025; 99213

== ENCOUNTER → 2019-07-21 | Outpatient (CLI) | payer MEDICARE, MEDICAID | LOC: WOUNDCARE 08:01 | PROVIDERS: ATTEND Nurse Practitioner | DX: L97.522 Non-pressure chronic ulcer of other part of left foot with fat layer exposed (principal); E11.621 Type 2 diabetes mellitus with foot ulcer | CPT/HCPCS: 11042; 87070; 87075; 87077; 87186; 87205 ==

== ENCOUNTER → 2019-07-21 | Outpatient (CLI) | payer MEDICARE, MEDICAID ==
--- NOTE | 2019-07-21 14:34 | Diagnostic Imaging Report ---
CLINICAL HISTORY: Recurrent ulcers on the great toe. COMPARISON: 05/05/2019. TECHNIQUE: Three views of the left foot. FINDINGS: There is no acute fracture or dislocation of the left toes. Alignment is anatomic. No evidence of cortical disruption involving the left great toe. There is soft tissue swelling involving the left great toe, similar to the prior exam. No retained foreign bodies are seen. IMPRESSION: 1. No radiologic evidence of osteomyelitis involving the left great first toe. Soft tissue swelling is seen throughout the left great toe. If continued concern for osteomyelitis, consider MRI to further evaluate. Dictated by: Dictated on workstation # [id number]
== END ==
LOC: RAD 09:19
PROVIDERS: ATTEND Nurse Practitioner
DX: E11.621 Type 2 diabetes mellitus with foot ulcer (principal); L97.522 Non-pressure chronic ulcer of other part of left foot with fat layer exposed
CPT/HCPCS: 73660

== ENCOUNTER → 2019-07-30 | Outpatient (CLI) | payer MEDICARE, MEDICAID | LOC: WOUNDCARE 09:24 | PROVIDERS: ATTEND Nurse Practitioner | DX: E11.621 Type 2 diabetes mellitus with foot ulcer (principal); L97.522 Non-pressure chronic ulcer of other part of left foot with fat layer exposed; E11.52 Type 2 diabetes mellitus with diabetic peripheral angiopathy with gangrene | CPT/HCPCS: 11042 ==

== ENCOUNTER → 2019-08-04 | Outpatient (CLI) | payer MEDICARE, MEDICAID | LOC: WOUNDCARE 09:27 | PROVIDERS: ATTEND Nurse Practitioner | DX: E11.621 Type 2 diabetes mellitus with foot ulcer (principal); E11.52 Type 2 diabetes mellitus with diabetic peripheral angiopathy with gangrene; L97.522 Non-pressure chronic ulcer of other part of left foot with fat layer exposed ==

== ENCOUNTER → 2019-08-06 | Outpatient (CLI) | payer MEDICARE, MEDICAID | LOC: WOUNDCARE 09:23 | PROVIDERS: ATTEND Nurse Practitioner | DX: E11.621 Type 2 diabetes mellitus with foot ulcer (principal); L97.522 Non-pressure chronic ulcer of other part of left foot with fat layer exposed; E11.52 Type 2 diabetes mellitus with diabetic peripheral angiopathy with gangrene | CPT/HCPCS: 29445 ==

== ENCOUNTER → 2019-08-11 | Outpatient (CLI) | payer MEDICARE, MEDICAID, OTHER | LOC: WOUNDCARE 09:28 | PROVIDERS: ATTEND Nurse Practitioner | DX: E11.621 Type 2 diabetes mellitus with foot ulcer (principal); L97.522 Non-pressure chronic ulcer of other part of left foot with fat layer exposed | CPT/HCPCS: 11042 ==

== ENCOUNTER → 2019-08-18 | Outpatient (CLI) | payer MEDICARE, MEDICAID | LOC: WOUNDCARE 09:29 | PROVIDERS: ATTEND Nurse Practitioner | DX: E11.621 Type 2 diabetes mellitus with foot ulcer (principal); E11.52 Type 2 diabetes mellitus with diabetic peripheral angiopathy with gangrene; I96 Gangrene, not elsewhere classified; L97.522 Non-pressure chronic ulcer of other part of left foot with fat layer exposed; R26.89 Other abnormalities of gait and mobility | CPT/HCPCS: 99212 ==

== ENCOUNTER 2019-09-21 12:45 | Outpatient (RCR) | payer MEDICARE, MEDICAID | END 2019-09-21 14:24 | disposition home or self-care (01) | PROVIDERS: ATTEND Nurse Practitioner | DX: E11.621 Type 2 diabetes mellitus with foot ulcer (principal); L97.522 Non-pressure chronic ulcer of other part of left foot with fat layer exposed; R26.89 Other abnormalities of gait and mobility ==

== ENCOUNTER → 2019-12-17 | Outpatient (CLI) | payer MEDICARE, MEDICAID ==
[~2019-12-17] MED LIST changes: -DOXY150T PO; +DOXY150T3 PO; -HYDR-3812 PO; +OMEP40CA27 PO; -OMEP40CA36 PO
[2019-12-17 09:20] LABS: BASOPHILS # (AUTO) 0.1 10^3/uL (0.0-0.1); BASOPHILS % (AUTO) 1 % (0-10); EOSINOPHILS # (AUTO) 0.7 10^3/uL (0.0-0.3); EOSINOPHILS % (AUTO) 5 % (0-10); HEMATOCRIT 44 % (35-52); HEMOGLOBIN 14.3 G/DL (11.5-16.0); LYMPHOCYTES % (AUTO) 24 % (12-44); MEAN CORPUSCULAR HEMOGLOBIN 32 PG (25-34); MEAN CORPUSCULAR HGB CONC 33 G/DL (32-36); MEAN CORPUSCULAR VOLUME 98 FL (80-99); MEAN PLATELET VOLUME 10.2 FL (7.4-10.4); MONOCYTES # (AUTO) 0.8 X 10^3 (0.0-1.0); MONOCYTES % (AUTO) 7 % (0-12); NEUTROPHILS # (AUTO) 8.2 X 10^3 (1.8-7.8); NEUTROPHILS % (AUTO) 64 % (42-75); PLATELET COUNT 279 10^3/uL (130-400); RED CELL DISTRIBUTION WIDTH 14.1 % (10.0-14.5); WHITE BLOOD COUNT 12.8 10^3/uL (4.3-11.0)
[2019-12-17 09:41] LABS: ALANINE AMINOTRANSFERASE 42 U/L (0-55); ALBUMIN 3.9 GM/DL (3.2-4.5); ALKALINE PHOSPHATASE 92 U/L (40-136); BILIRUBIN,TOTAL 0.3 MG/DL (0.1-1.0); BUN/CREATININE RATIO 6; CALCIUM 8.9 MG/DL (8.5-10.1); CARBON DIOXIDE 24 MMOL/L (21-32); CHLORIDE 105 MMOL/L (98-107); GFR ESTIMATED > 60; GLUCOSE 226 MG/DL (70-105); POTASSIUM 4.6 MMOL/L (3.6-5.0); SODIUM 142 MMOL/L (135-145); TOTAL PROTEIN 6.7 GM/DL (6.4-8.2)
== END ==
LOC: ONC 09:08
PROVIDERS: ATTEND Internal Medicine Hematology & Oncology
DX: D72.828 Other elevated white blood cell count (principal); E03.8 Other specified hypothyroidism; M13.89 Other specified arthritis, multiple sites; E11.9 Type 2 diabetes mellitus without complications; I10 Essential (primary) hypertension
CPT/HCPCS: 80053; 85025; 99213

== ENCOUNTER 2019-12-21 10:40 | Outpatient (RCR) | payer MEDICARE, MEDICAID | END 2020-03-01 | disposition home or self-care (01) | PROVIDERS: ATTEND Nurse Practitioner | DX: M75.21 Bicipital tendinitis, right shoulder (principal) ==

== ENCOUNTER → 2020-01-14 | Outpatient (CLI) | payer MEDICARE, MEDICAID | LOC: WOUNDCARE 08:52 | PROVIDERS: ATTEND Surgery | DX: E11.621 Type 2 diabetes mellitus with foot ulcer (principal); E11.42 Type 2 diabetes mellitus with diabetic polyneuropathy; L97.522 Non-pressure chronic ulcer of other part of left foot with fat layer exposed; T65.222D Toxic effect of tobacco cigarettes, intentional self-harm, subsequent encounter | CPT/HCPCS: 11042 ==

== ENCOUNTER → 2020-01-21 | Outpatient (CLI) | payer MEDICARE, MEDICAID | LOC: WOUNDCARE 08:40 | PROVIDERS: ATTEND Surgery | DX: E11.621 Type 2 diabetes mellitus with foot ulcer (principal); E11.42 Type 2 diabetes mellitus with diabetic polyneuropathy; L97.522 Non-pressure chronic ulcer of other part of left foot with fat layer exposed; T65.222D Toxic effect of tobacco cigarettes, intentional self-harm, subsequent encounter | CPT/HCPCS: 99212 ==

== ENCOUNTER → 2020-02-26 | Outpatient (CLI) | payer MEDICARE, MEDICAID ==
--- NOTE | 2020-02-26 15:29 | Diagnostic Imaging Report ---
INDICATION: Routine screening. COMPARISON is made with prior mammograms from 01/01/2019 and 12/05/2017. 2-D and 3-D bilateral screening mammography was performed with CAD. Scattered fibroglandular densities are identified bilaterally. The parenchymal pattern is stable. No mass or malignant appearing microcalcifications are seen. Axillae are unremarkable. IMPRESSION: BI-RADS Category 1 No mammographic features suspicious for malignancy are identified. ACR BI-RADS Category 1: Negative. Result letter will be mailed to the patient. Note: At least 10% of breast cancer is not imaged by mammography. Dictated by: Dictated on workstation # [id number]
== END ==
LOC: RAD 10:36
PROVIDERS: ATTEND Family Medicine
DX: Z12.31 Encounter for screening mammogram for malignant neoplasm of breast (principal)
CPT/HCPCS: 77063; 77067

== ENCOUNTER → 2020-06-03 | Outpatient (CLI) | payer MEDICARE, MEDICAID ==
[2020-06-03 08:55] LABS: BASOPHILS # (AUTO) 0.1 10^3/uL (0.0-0.1); BASOPHILS % (AUTO) 1 % (0-10); EOSINOPHILS # (AUTO) 0.5 10^3/uL (0.0-0.3); EOSINOPHILS % (AUTO) 3 % (0-10); HEMATOCRIT 41 % (35-52); HEMOGLOBIN 13.4 G/DL (11.5-16.0); LYMPHOCYTES # (AUTO) 3.2 X 10^3 (1.0-4.0); LYMPHOCYTES % (AUTO) 21 % (12-44); MEAN CORPUSCULAR HEMOGLOBIN 32 PG (25-34); MEAN CORPUSCULAR HGB CONC 33 G/DL (32-36); MEAN CORPUSCULAR VOLUME 97 FL (80-99); MEAN PLATELET VOLUME 9.7 FL (7.4-10.4); MONOCYTES # (AUTO) 0.8 X 10^3 (0.0-1.0); MONOCYTES % (AUTO) 5 % (0-12); NEUTROPHILS # (AUTO) 10.7 X 10^3 (1.8-7.8); NEUTROPHILS % (AUTO) 70 % (42-75); PLATELET COUNT 309 10^3/uL (130-400); WHITE BLOOD COUNT 15.4 10^3/uL (4.3-11.0)
[2020-06-03 09:21] LABS: ALANINE AMINOTRANSFERASE 32 U/L (0-55); ALBUMIN 3.6 GM/DL (3.2-4.5); ALKALINE PHOSPHATASE 107 U/L (40-136); BILIRUBIN,TOTAL 0.3 MG/DL (0.1-1.0); BUN/CREATININE RATIO 8; CALCIUM 9.1 MG/DL (8.5-10.1); CARBON DIOXIDE 23 MMOL/L (21-32); CHLORIDE 105 MMOL/L (98-107); CREATININE SERUM 0.87 MG/DL (0.60-1.30); GFR ESTIMATED > 60; GLUCOSE 203 MG/DL (70-105); POTASSIUM 4.8 MMOL/L (3.6-5.0); SODIUM 140 MMOL/L (135-145); TOTAL PROTEIN 6.5 GM/DL (6.4-8.2)
== END ==
LOC: ONC 08:47
PROVIDERS: ATTEND Internal Medicine Hematology & Oncology
DX: D72.1 Eosinophilia (principal); D47.3 Essential (hemorrhagic) thrombocythemia; E11.9 Type 2 diabetes mellitus without complications; D72.0 Genetic anomalies of leukocytes; I10 Essential (primary) hypertension; E03.9 Hypothyroidism, unspecified; E66.01 Morbid (severe) obesity due to excess calories; Z86.718 Personal history of other venous thrombosis and embolism; Z95.828 Presence of other vascular implants and grafts; Z98.890 Other specified postprocedural states
CPT/HCPCS: 80053; 85025; G0463; 99213

== ENCOUNTER → 2020-08-10 | Outpatient (CLI) | payer MEDICARE, MEDICAID ==
[~2020-08-10] MED LIST changes: +BARIUM for suspension 96% w/w (Vanilla Silq Medium Density) PO ONE; +BARIUM for suspension 98% w/w (Vanilla Silq High Density) PO ONE; -PANT40TA3 PO; +PANT40TA52 PO
--- NOTE | 2020-08-10 11:06 | Diagnostic Imaging Report ---
Indication: Dysphagia. Patient ingested effervescent crystals as well as thin and thick barium and imaging over the esophagus was performed in multiple obliquities. Preliminary radiograph of the chest is unremarkable. The esophagus has a smooth contour. No mass or stricture is identified. No gastroesophageal reflux or hiatal hernia was demonstrated. IMPRESSION: Unremarkable esophagram. Dictated by: Dictated on workstation # [id number]
== END ==
LOC: RAD 10:00
PROVIDERS: ATTEND Surgery
DX: K21.9 Gastro-esophageal reflux disease without esophagitis (principal)
CPT/HCPCS: 74220

== ENCOUNTER → 2020-09-05 | Outpatient (CLI) | payer MEDICARE, MEDICAID ==
[~2020-09-05] MED LIST changes: +AMIT25TA9 PO; +ATOR40TA70 PO; -BARIUM for suspension 96% w/w (Vanilla Silq Medium Density) PO ONE; -BARIUM for suspension 98% w/w (Vanilla Silq High Density) PO ONE; +BUPR150T14 PO; +DULO30CA49 PO; +MELA1TAB20 PO; +MV-M1TAB57 PO; +OLME5TAB6 PO; +OMEP20TA7 PO; +POLY119P5 PO; +ROPI0.253 PO; +RT-ALBUINH INH; +TIZA4TAB4 PO
--- NOTE | 2020-09-05 14:37 | Diagnostic Imaging Report ---
PROCEDURE: CT chest without contrast. TECHNIQUE: Multiple contiguous axial images were obtained through the chest without the use of intravenous contrast. Auto Exposure Controls were utilized during the CT exam to meet ALARA standards for radiation dose reduction. DATE: September 05, 2020. COMPARISON: Chest radiograph April 08, 2019. CT chest February 20, 2018. INDICATION: 55-year-old female, unintentional weight loss. History of tobacco use. PROCEDURE: Axial noncontrasted CT images of the chest. Noncontrasted limits the evaluation of the mediastinum and vascular structures. FINDINGS: There are very mild linear opacities in the lingula, most compatible with very mild atelectasis or scarring. There is no additional focal airspace consolidation. There is no pneumothorax. There is no pleural effusion. There is no pulmonary nodule or lung mass. The central airways are patent. The heart is not enlarged. There is no pericardial effusion. There is no identified abnormally enlarged mediastinal or axillary lymph node which meets CT size criteria for adenopathy. There are very mild atherosclerotic calcifications noted. The imaged portions of the upper abdomen are unremarkable in appearance. There is no identified acute bony abnormality. There are disc degenerative changes of the spine. IMPRESSION: No evidence of malignancy at the level of the chest or other acute cardiopulmonary abnormality. Dictated by: Dictated on workstation # [id number]
== END ==
LOC: RAD 12:34
PROVIDERS: ATTEND Family Medicine
DX: R63.4 Abnormal weight loss (principal); Z72.0 Tobacco use
CPT/HCPCS: 71250

== ENCOUNTER 2020-09-09 05:36 | Outpatient (RCR) | payer MEDICARE, MEDICAID ==
[~2020-09-09] VITALS: Ht 152.4 cm; Wt 82.3 kg
== END 2020-09-09 09:42 | disposition home or self-care (01) ==
LOC: PREOP 05:36
PROVIDERS: ATTEND Surgery
DX: Z01.812 Encounter for preprocedural laboratory examination (principal); Z12.11 Encounter for screening for malignant neoplasm of colon; K21.9 Gastro-esophageal reflux disease without esophagitis; Z80.0 Family history of malignant neoplasm of digestive organs; Z20.828 Contact with and (suspected) exposure to other viral communicable diseases
CPT/HCPCS: 87635

== ENCOUNTER 2020-09-13 07:27 | Day surgery (SDC) | payer MEDICARE, MEDICAID ==
[2020-09-13] VITALS (8 sets, daily range): BP systolic 123–131; BP diastolic 62–81
[~2020-09-13] VITALS: Ht 152.4 cm; Wt 82.3 kg
[2020-09-13] MEDS ORDERED: LACTATED RINGERS 1,000 ML IV ONE (07:43)
[2020-09-13] MEDS ORDERED: HURRICAINE EXT TUBE (BENZOCAINE) XX PRN (07:45)
[2020-09-13] MEDS ORDERED: LACTATED RINGERS 1,000 ML IV PRN (07:45)
[2020-09-13] MEDS ORDERED: MIDAZOLAM 2 MG/2 ML (VERSED) VIAL ONE (07:57)
[2020-09-13] MEDS ORDERED: PROPOFOL INJECTION 50 ML IV ONE (07:57)
--- NOTE | 2020-09-13 09:33 | Progress Note-Post Operative ---
Post-Operative Progess Note Surgeon (s)/Spring Inspector (s) Surgeon LUCILA HORTON DO Spring Inspector: na Pre-Operative Diagnosis dysphagia, epigastric abd pain, gerd, family hx colon cancer Post-Operative Diagnosis gastritis, sigmoid colon polyp Procedure & Operative Findings Date of Procedure 09/13/20 Procedure Performed/Findings biopsies, colonoscopy c hot bx polypectomy Anesthesia Type per pelts skinner Estimated Blood Loss Estimated blood loss (mL): none Specimens/Packing Specimens Removed antrum, body, ge, sigmoid polyp LUCILA HORTON DO Sep 13, 2020 09:33
[2020-09-13] MEDS ORDERED: PANT40TA2 PO (09:34)
--- NOTE | 2020-09-13 09:35 | Discharge Inst-Simple/Standard ---
Discharge Inst-Standard Discharge Medications New, Converted or Re-Newed RX: Transmitted to Pharmacy Patient Instructions/Follow Up Plan of Care/Instructions/FU: 2-3 weeks Sergio Activity as Tolerated: Yes Discharge Diet: Regular Diet LUCILA HORTON DO Sep 13, 2020 09:35
--- NOTE | 2020-09-13 12:41 | Anesthesia-General Post-Op ---
MAC Patient Condition Mental Status/LOC: Same as Preop Cardiovascular: Satisfactory Nausea/Vomiting: Absent Respiratory: Satisfactory Pain: Controlled Complications: Absent Post Op Complications Complications None Follow Up Care/Instructions Patient Instructions None needed. Anesthesiology Discharge Order Discharge Order Patient is doing well, no complaints, stable vital signs, no apparent adverse anesthesia problems. No complications reported per nursing. REGINA PEÑA CRNA Sep 13, 2020 12:41
--- NOTE | 2020-09-13 16:02 | OPERATIVE REPORT ---
DATE OF SERVICE: 09/13/2020 PREOPERATIVE DIAGNOSES: Dysphagia, gastroesophageal reflux disease, epigastric abdominal pain, family history of colon cancer. POSTOPERATIVE DIAGNOSES: Gastritis, sigmoid colon polyp. PROCEDURE: EGD with biopsies, colonoscopy with hot biopsy polypectomy. SURGEON: Lucila Hill DO ANESTHESIA: Per MEAT WRAPPER. ESTIMATED BLOOD LOSS: None. COMPLICATIONS: None. INDICATIONS: The patient is a 55-year-old female with dysphagia, epigastric abdominal pain, gastroesophageal reflux disease, family history of colon cancer. She understands risks and benefits of procedures and wished to proceed with procedures. Consent was signed in the chart. DESCRIPTION OF PROCEDURE: The patient was taken to endoscopy suite, placed in left lateral recumbent position. Timeout was performed. Scope was inserted in mouth, down the esophagus, stomach and into the duodenum without difficulty. There were no polyps, masses or ulcerations within the duodenum. Scope was slowly retracted back into the stomach where it was further insufflated. Significant erythematous changes consistent with gastritis in the antrum and body. Biopsy of the antrum and body were obtained. No polyps, masses or ulcerations. Scope was retroflexed noting no other pathology. Scope was returned to its normal position, slowly withdrawn to distal esophagus. Biopsy of the GE junction was obtained. Scope was then slowly retracted back noting no other pathology. The patient then had digital rectal exam was performed. No palpable polyps, masses or ulcerations. Scope was inserted in the rectum and advanced all the way to cecum with minimal difficulty. Prep was adequate. Scope was then slowly retracted back. There were no polyps, masses or ulcerations within the cecum, ascending, transverse, descending colon and sigmoid colon, a small polyp was present, which hot biopsy polypectomy was performed. Scope was then continuously retracted back. There were also retroflexed in the rectum, noting no other pathology. Scope was returned to its normal position, slowly withdrawn until completely removed. The patient tolerated procedure well without any complications. She was taken to recovery room in stable condition. RECOMMENDATIONS: The patient will stop omeprazole and started on Protonix 40 mg daily. The patient to stop ibuprofen. The patient will need repeat colonoscopy in 5 years. Any issues before that, she should be reevaluated at that time. Job ID: [id number] DocumentID: [id number] Dictated Date: 09/13/2020 09:38:16 Termite Control Servicer Date: 09/13/2020 16:02:27 Dictated By: LUCILA HILL DO
== END 2020-09-13 10:30 | disposition home or self-care (01) ==
LOC: ENDO 07:27
PROVIDERS: ATTEND Surgery
DX: K63.5 Polyp of colon (principal); K21.00 Gastro-esophageal reflux disease with esophagitis, without bleeding; I10 Essential (primary) hypertension; F41.9 Anxiety disorder, unspecified; F32.9 Major depressive disorder, single episode, unspecified; G43.909 Migraine, unspecified, not intractable, without status migrainosus; K21.9 Gastro-esophageal reflux disease without esophagitis; E03.9 Hypothyroidism, unspecified; E11.9 Type 2 diabetes mellitus without complications; K76.0 Fatty (change of) liver, not elsewhere classified; G89.29 Other chronic pain; E78.5 Hyperlipidemia, unspecified; F43.10 Post-traumatic stress disorder, unspecified; M19.90 Unspecified osteoarthritis, unspecified site; E66.9 Obesity, unspecified; Z68.35 Body mass index [BMI] 35.0-35.9, adult; F17.210 Nicotine dependence, cigarettes, uncomplicated; Z79.84 Long term (current) use of oral hypoglycemic drugs; Z79.899 Other long term (current) drug therapy; Z80.0 Family history of malignant neoplasm of digestive organs; Z80.3 Family history of malignant neoplasm of breast; Z80.41 Family history of malignant neoplasm of ovary
CPT/HCPCS: 88305

== ENCOUNTER → 2020-12-06 | Outpatient (CLI) | payer MEDICARE, MEDICAID ==
[~2020-12-06] MED LIST changes: -LISI-556 PO; +LISI-729 PO; -OXYC-471 PO; +OXYC1TAB11 PO; +PANT40TA2 PO
[2020-12-06 10:57] LABS: BASOPHILS # (AUTO) 0.1 10^3/uL (0.0-0.1); BASOPHILS % (AUTO) 1 % (0-10); EOSINOPHILS # (AUTO) 0.3 10^3/uL (0.0-0.3); EOSINOPHILS % (AUTO) 2 % (0-10); HEMATOCRIT 45 % (35-52); HEMOGLOBIN 14.5 g/dL (11.5-16.0); LYMPHOCYTES # (AUTO) 3.8 10^3/uL (1.0-4.0); LYMPHOCYTES % (AUTO) 25 % (12-44); MEAN CORPUSCULAR HEMOGLOBIN 31 pg (25-34); MEAN CORPUSCULAR HGB CONC 32 g/dL (32-36); MEAN CORPUSCULAR VOLUME 95 fL (80-99); MONOCYTES % (AUTO) 6 % (0-12); NEUTROPHILS # (AUTO) 10.1 10^3/uL (1.8-7.8); NEUTROPHILS % (AUTO) 66 % (42-75); PLATELET COUNT 398 10^3/uL (130-400); WHITE BLOOD COUNT 15.4 10^3/uL (4.3-11.0)
[2020-12-06 11:13] LABS: ALANINE AMINOTRANSFERASE 35 U/L (0-55); ALKALINE PHOSPHATASE 108 U/L (40-136); BILIRUBIN,TOTAL 0.3 MG/DL (0.1-1.0); BUN/CREATININE RATIO 6; CALCIUM 9.4 MG/DL (8.5-10.1); CARBON DIOXIDE 26 MMOL/L (21-32); CHLORIDE 105 MMOL/L (98-107); CREATININE SERUM 0.85 MG/DL (0.60-1.30); GFR ESTIMATED > 60; GLUCOSE 145 MG/DL (70-105); POTASSIUM 4.4 MMOL/L (3.6-5.0); SODIUM 142 MMOL/L (135-145); TOTAL PROTEIN 7.3 GM/DL (6.4-8.2)
== END ==
LOC: ONC 10:40
PROVIDERS: ATTEND Internal Medicine Hematology & Oncology
DX: D72.829 Elevated white blood cell count, unspecified (principal); E11.9 Type 2 diabetes mellitus without complications; E78.5 Hyperlipidemia, unspecified; I10 Essential (primary) hypertension; E03.9 Hypothyroidism, unspecified
CPT/HCPCS: 80053; 85025; G0463; 99213

== ENCOUNTER → 2020-12-15 | Outpatient (CLI) | payer MEDICARE, MEDICAID | LOC: CARD 11:29 | PROVIDERS: ATTEND Internal Medicine Cardiovascular Disease | DX: I11.9 Hypertensive heart disease without heart failure (principal) | CPT/HCPCS: 93306 ==

== ENCOUNTER → 2021-01-23 | Outpatient (CLI) | payer MEDICARE, MEDICAID ==
[~2021-01-23] MED LIST changes: -DOCU-238 PO; +DOCU-241 PO
== END ==
LOC: LAB 11:30
PROVIDERS: ATTEND Internal Medicine Cardiovascular Disease
DX: I10 Essential (primary) hypertension (principal); R07.9 Chest pain, unspecified
CPT/HCPCS: 36415; 80053; 83036; 85025

== ENCOUNTER → 2021-01-23 | Outpatient (CLI) | payer MEDICARE, MEDICAID | LOC: WOUNDCARE 08:47 | PROVIDERS: ATTEND Surgery | DX: E11.621 Type 2 diabetes mellitus with foot ulcer (principal); L97.522 Non-pressure chronic ulcer of other part of left foot with fat layer exposed; E11.42 Type 2 diabetes mellitus with diabetic polyneuropathy; L97.512 Non-pressure chronic ulcer of other part of right foot with fat layer exposed; I70.245 Atherosclerosis of native arteries of left leg with ulceration of other part of foot | CPT/HCPCS: 11042; A6197; G0463 ==

== ENCOUNTER → 2021-01-23 | Outpatient (CLI) | payer MEDICARE, MEDICAID ==
--- NOTE | 2021-01-23 15:53 | Diagnostic Imaging Report ---
INDICATION: Soft tissue ulcer. COMPARISON: None. FINDINGS: Multiple radiographic views of the left foot demonstrate no acute fracture or dislocation. There are no focal osseous lesions. There is no soft tissue swelling. Joint spaces are well maintained. No radiopaque foreign bodies are seen. IMPRESSION: No acute fractures or dislocations of the left foot. Dictated by: Dictated on workstation # [id number]
== END ==
LOC: RAD 11:16
PROVIDERS: ATTEND Surgery
DX: E11.621 Type 2 diabetes mellitus with foot ulcer (principal); E11.42 Type 2 diabetes mellitus with diabetic polyneuropathy; L97.522 Non-pressure chronic ulcer of other part of left foot with fat layer exposed; L97.512 Non-pressure chronic ulcer of other part of right foot with fat layer exposed; I70.245 Atherosclerosis of native arteries of left leg with ulceration of other part of foot
CPT/HCPCS: 73630

== ENCOUNTER → 2021-01-25 | Outpatient (CLI) | payer MEDICARE, MEDICAID ==
[~2021-01-25] VITALS: Ht 152 cm; Wt 79.0 kg
[~2021-01-25] MED LIST changes: +CATHETER FLUSH 10 ML SYR IV PRN; +REGADENOSON 0.4 MG/5 ML SYR (LEXISCAN) IV ONE
[2021-01-25 13:54] VITALS: BP 161/94
--- NOTE | 2021-01-25 15:17 | Cardiology Stress Test Report ---
Stress Test Report Date of Procedure/Referring: Date of Procedure: Jan 25, 2021 PCP Kota Rausch MD Admitting Physician Ana Farah MD Indications: Hypertension Baseline Heart Rate: 68 Baseline Blood Pressure: Blood Pressure Systolic: 161 Blood Pressure Diastolic: 94 Baseline Vitals Vital Signs Date Time Temp Pulse Resp B/P (MAP) Pulse Ox O2 Delivery O2 Flow Rate FiO2 01/25/21 13:54 66 18 161/94 (116) 98 Room Air Baseline EKG: Baseline EKG: NSR Summary After explaining the procedure to the patient, she signed a consent and then brought to the stress nuclear laboratory. Patient received 0.4 mg Lexiscan for stress test, ECG, heart rate and blood pressure were monitored continuously. Resting and stress dose of radio tracer were injected, imaging was acquired and reviewed in short axis, horizontal long axis and vertical long axis views. TID: 0.95 SSS: 1 SDS: 1 EF: 76 1. Patient tolerated Lexiscan well 2. No significant ischemia or infarction on SPECT images 3. Normal left ventricular size, EF 76% KOTA RAUSCH MD Jan 25, 2021 15:16
== END ==
LOC: CARD 01-16 08:00
PROVIDERS: ATTEND Internal Medicine Cardiovascular Disease
DX: I10 Essential (primary) hypertension (principal); R07.9 Chest pain, unspecified
CPT/HCPCS: 78452; 80053; 83036; 85025; 93017; A9502; 36415

== ENCOUNTER → 2021-01-30 | Outpatient (CLI) | payer MEDICARE, MEDICAID ==
[~2021-01-30] MED LIST changes: -CATHETER FLUSH 10 ML SYR IV PRN; -REGADENOSON 0.4 MG/5 ML SYR (LEXISCAN) IV ONE
== END ==
LOC: WOUNDCARE 09:37
PROVIDERS: ATTEND Surgery
DX: L97.522 Non-pressure chronic ulcer of other part of left foot with fat layer exposed (principal); L97.512 Non-pressure chronic ulcer of other part of right foot with fat layer exposed; I70.245 Atherosclerosis of native arteries of left leg with ulceration of other part of foot; E11.621 Type 2 diabetes mellitus with foot ulcer; E11.42 Type 2 diabetes mellitus with diabetic polyneuropathy
CPT/HCPCS: 11042; G0463

== ENCOUNTER → 2021-02-13 | Outpatient (CLI) | payer MEDICARE, MEDICAID | LOC: WOUNDCARE 09:59 | PROVIDERS: ATTEND Surgery | DX: E11.621 Type 2 diabetes mellitus with foot ulcer (principal); E11.42 Type 2 diabetes mellitus with diabetic polyneuropathy; L97.512 Non-pressure chronic ulcer of other part of right foot with fat layer exposed; L97.522 Non-pressure chronic ulcer of other part of left foot with fat layer exposed; I70.245 Atherosclerosis of native arteries of left leg with ulceration of other part of foot | CPT/HCPCS: 99212 ==

== ENCOUNTER → 2021-02-28 | Outpatient (CLI) | payer MEDICARE, MEDICAID ==
--- NOTE | 2021-02-28 15:21 | Diagnostic Imaging Report ---
INDICATION: Routine screening. COMPARISON: 02/26/2020 and 01/01/2019. TECHNIQUE: 2D and 3D bilateral screening mammography was performed with CAD. FINDINGS: Scattered fibroglandular densities are identified bilaterally. No mass or malignant appearing microcalcifications are seen. The axillae are unremarkable. IMPRESSION: No mammographic features suspicious for malignancy are identified. ACR BI-RADS Category 1: Negative. Result letter will be mailed to the patient. Note: At least 10% of breast cancer is not imaged by mammography. Dictated by: Dictated on workstation # [id number]
== END ==
LOC: RAD 10:45
PROVIDERS: ATTEND Family Medicine
DX: Z12.31 Encounter for screening mammogram for malignant neoplasm of breast (principal)
CPT/HCPCS: 77063; 77067

== ENCOUNTER → 2021-03-28 | Outpatient (CLI) | payer MEDICARE, MEDICAID ==
[~2021-03-28] MED LIST changes: -DOCU-241 PO; +DOCU-26 PO; -OMEP40CA27 PO; +OMEP40CA6 PO
== END ==
LOC: WOUNDCARE 13:28
PROVIDERS: ATTEND Surgery
DX: E11.621 Type 2 diabetes mellitus with foot ulcer (principal); L97.512 Non-pressure chronic ulcer of other part of right foot with fat layer exposed; L97.522 Non-pressure chronic ulcer of other part of left foot with fat layer exposed; T65.222D Toxic effect of tobacco cigarettes, intentional self-harm, subsequent encounter; F17.218 Nicotine dependence, cigarettes, with other nicotine-induced disorders
CPT/HCPCS: 11042; A6197; G0463

== ENCOUNTER → 2021-04-04 | Outpatient (CLI) | payer MEDICARE, MEDICAID ==
--- NOTE | 2021-04-04 12:50 | Diagnostic Imaging Report ---
CLINICAL INDICATION: Patient with non-intractable vomiting with nausea. COMPARISON: Nuclear medicine gastric emptying study dated 07/17/2016. PROCEDURE: Solid Gastric emptying study After oral ingestion of 1.0 millicuries of technetium 99M sulfur colloid, mixed with scrambled egg, sequential imaging of the abdomen is performed. Computer analysis is performed and gastric emptying curves are calculated. FINDINGS: There is gastric emptying demonstrated with sequential imaging. The residual retained gastric activity: 1 hour: 48% (less than 30% equals rapid and greater than 90% equals delayed) 2 hours: 23% (greater than 60% represents abnormally delayed) 3 hours: 12% (greater than 30% represents abnormally delayed) 4 hours: 6% (greater than 10% represents abnormally delayed) IMPRESSION: Normal gastric emptying study. Dictated by: Dictated on workstation # [id number]
== END ==
LOC: CARD 07:00
PROVIDERS: ATTEND Family Medicine
DX: R11.2 Nausea with vomiting, unspecified (principal)
CPT/HCPCS: 78264; A9541

== ENCOUNTER → 2021-04-06 | Outpatient (CLI) | payer MEDICARE, MEDICAID | LOC: WOUNDCARE 13:03 | PROVIDERS: ATTEND Surgery | DX: E11.621 Type 2 diabetes mellitus with foot ulcer (principal); L97.512 Non-pressure chronic ulcer of other part of right foot with fat layer exposed; L97.522 Non-pressure chronic ulcer of other part of left foot with fat layer exposed; T65.222A Toxic effect of tobacco cigarettes, intentional self-harm, initial encounter; E11.52 Type 2 diabetes mellitus with diabetic peripheral angiopathy with gangrene; F17.218 Nicotine dependence, cigarettes, with other nicotine-induced disorders | CPT/HCPCS: 11042; G0463 ==

== ENCOUNTER → 2021-04-14 | Outpatient (CLI) | payer MEDICARE, MEDICAID ==
[~2021-04-14] MED LIST changes: -SULF1TAB35 PO; +SULF1TAB38 PO
== END ==
LOC: WOUNDCARE 09:31
PROVIDERS: ATTEND Surgery
DX: E11.621 Type 2 diabetes mellitus with foot ulcer (principal); E11.42 Type 2 diabetes mellitus with diabetic polyneuropathy; I96 Gangrene, not elsewhere classified; L97.512 Non-pressure chronic ulcer of other part of right foot with fat layer exposed; T65.222D Toxic effect of tobacco cigarettes, intentional self-harm, subsequent encounter; F17.218 Nicotine dependence, cigarettes, with other nicotine-induced disorders
CPT/HCPCS: 11042; A6454; G0463

== ENCOUNTER → 2021-04-18 | Outpatient (CLI) | payer MEDICARE, MEDICAID | LOC: WOUNDCARE 13:25 | PROVIDERS: ATTEND Surgery | DX: E11.621 Type 2 diabetes mellitus with foot ulcer (principal); E11.42 Type 2 diabetes mellitus with diabetic polyneuropathy; I96 Gangrene, not elsewhere classified; L97.512 Non-pressure chronic ulcer of other part of right foot with fat layer exposed; T65.222S Toxic effect of tobacco cigarettes, intentional self-harm, sequela; F17.218 Nicotine dependence, cigarettes, with other nicotine-induced disorders | CPT/HCPCS: 11042; A6207; A6454; G0463 ==

== ENCOUNTER → 2021-04-21 | Outpatient (CLI) | payer MEDICARE, MEDICAID | LOC: WOUNDCARE 08:26 | PROVIDERS: ATTEND Surgery | DX: E11.622 Type 2 diabetes mellitus with other skin ulcer (principal) | CPT/HCPCS: 99212 ==

== ENCOUNTER → 2021-04-25 | Outpatient (CLI) | payer MEDICARE, MEDICAID | LOC: WOUNDCARE 14:24 | PROVIDERS: ATTEND Surgery | DX: E11.621 Type 2 diabetes mellitus with foot ulcer (principal); E11.42 Type 2 diabetes mellitus with diabetic polyneuropathy; L97.512 Non-pressure chronic ulcer of other part of right foot with fat layer exposed; T65.222A Toxic effect of tobacco cigarettes, intentional self-harm, initial encounter; E11.52 Type 2 diabetes mellitus with diabetic peripheral angiopathy with gangrene; F17.218 Nicotine dependence, cigarettes, with other nicotine-induced disorders | CPT/HCPCS: 11042; A6207; A6454; G0463 ==

== ENCOUNTER → 2021-04-28 | Outpatient (CLI) | payer MEDICARE, MEDICAID | LOC: WOUNDCARE 08:27 | PROVIDERS: ATTEND Surgery | DX: E11.621 Type 2 diabetes mellitus with foot ulcer (principal); I10 Essential (primary) hypertension; E11.40 Type 2 diabetes mellitus with diabetic neuropathy, unspecified | CPT/HCPCS: A6454; G0463; 99212 ==

== ENCOUNTER → 2021-05-02 | Outpatient (CLI) | payer MEDICARE, MEDICAID | LOC: WOUNDCARE 14:24 | PROVIDERS: ATTEND Surgery | DX: E11.621 Type 2 diabetes mellitus with foot ulcer (principal); I96 Gangrene, not elsewhere classified; L97.512 Non-pressure chronic ulcer of other part of right foot with fat layer exposed; E11.42 Type 2 diabetes mellitus with diabetic polyneuropathy; T65.222D Toxic effect of tobacco cigarettes, intentional self-harm, subsequent encounter; F17.218 Nicotine dependence, cigarettes, with other nicotine-induced disorders | CPT/HCPCS: 11042; A6207; A6454; G0463 ==

== ENCOUNTER → 2021-05-05 | Outpatient (CLI) | payer MEDICARE, MEDICAID | LOC: WOUNDCARE 12:32 | PROVIDERS: ATTEND Orthopaedic Surgery Hand Surgery | DX: E11.621 Type 2 diabetes mellitus with foot ulcer (principal); I10 Essential (primary) hypertension; E11.40 Type 2 diabetes mellitus with diabetic neuropathy, unspecified | CPT/HCPCS: A6454; G0463; 99212 ==

== ENCOUNTER → 2021-05-09 | Outpatient (CLI) | payer MEDICARE, MEDICAID | LOC: WOUNDCARE 14:17 | PROVIDERS: ATTEND Surgery | DX: E11.621 Type 2 diabetes mellitus with foot ulcer (principal); E11.42 Type 2 diabetes mellitus with diabetic polyneuropathy; L97.512 Non-pressure chronic ulcer of other part of right foot with fat layer exposed; T65.222A Toxic effect of tobacco cigarettes, intentional self-harm, initial encounter; E11.52 Type 2 diabetes mellitus with diabetic peripheral angiopathy with gangrene; F17.218 Nicotine dependence, cigarettes, with other nicotine-induced disorders | CPT/HCPCS: 11042; A6454; G0463 ==

== ENCOUNTER → 2021-05-12 | Outpatient (CLI) | payer MEDICARE, MEDICAID | LOC: WOUNDCARE 08:10 | PROVIDERS: ATTEND Surgery | DX: E11.621 Type 2 diabetes mellitus with foot ulcer (principal); I87.331 Chronic venous hypertension (idiopathic) with ulcer and inflammation of right lower extremity; M81.0 Age-related osteoporosis without current pathological fracture; E11.42 Type 2 diabetes mellitus with diabetic polyneuropathy | CPT/HCPCS: A6454; G0463; 99212 ==

== ENCOUNTER → 2021-05-16 | Outpatient (CLI) | payer MEDICARE, MEDICAID | LOC: WOUNDCARE 10:09 | PROVIDERS: ATTEND Surgery | DX: E11.621 Type 2 diabetes mellitus with foot ulcer (principal); E11.42 Type 2 diabetes mellitus with diabetic polyneuropathy; L97.512 Non-pressure chronic ulcer of other part of right foot with fat layer exposed; T65.222D Toxic effect of tobacco cigarettes, intentional self-harm, subsequent encounter; E11.52 Type 2 diabetes mellitus with diabetic peripheral angiopathy with gangrene; F17.218 Nicotine dependence, cigarettes, with other nicotine-induced disorders | CPT/HCPCS: 11042; A6454; G0463 ==

== ENCOUNTER → 2021-05-19 | Outpatient (CLI) | payer MEDICARE, MEDICAID | LOC: WOUNDCARE 11:01 | PROVIDERS: ATTEND Surgery | DX: E11.621 Type 2 diabetes mellitus with foot ulcer (principal); I10 Essential (primary) hypertension; E11.40 Type 2 diabetes mellitus with diabetic neuropathy, unspecified | CPT/HCPCS: A6207; A6454; G0463; 99212 ==

== ENCOUNTER → 2021-05-23 | Outpatient (CLI) | payer MEDICARE, MEDICAID | LOC: WOUNDCARE 10:51 | PROVIDERS: ATTEND Surgery | DX: E11.621 Type 2 diabetes mellitus with foot ulcer (principal); I96 Gangrene, not elsewhere classified; E11.42 Type 2 diabetes mellitus with diabetic polyneuropathy; L97.512 Non-pressure chronic ulcer of other part of right foot with fat layer exposed; T65.222A Toxic effect of tobacco cigarettes, intentional self-harm, initial encounter; F17.218 Nicotine dependence, cigarettes, with other nicotine-induced disorders | CPT/HCPCS: A6207; A6454; G0463; 99213 ==

== ENCOUNTER → 2021-05-26 | Outpatient (CLI) | payer MEDICARE, MEDICAID | LOC: WOUNDCARE 10:25 | PROVIDERS: ATTEND Surgery | DX: E11.621 Type 2 diabetes mellitus with foot ulcer (principal); I10 Essential (primary) hypertension; E11.40 Type 2 diabetes mellitus with diabetic neuropathy, unspecified | CPT/HCPCS: A6207; A6454; G0463; 99212 ==

== ENCOUNTER → 2021-05-30 | Outpatient (CLI) | payer MEDICARE, MEDICAID | LOC: WOUNDCARE 12:29 | PROVIDERS: ATTEND Surgery | DX: L97.411 Non-pressure chronic ulcer of right heel and midfoot limited to breakdown of skin (principal); E11.621 Type 2 diabetes mellitus with foot ulcer; E11.42 Type 2 diabetes mellitus with diabetic polyneuropathy; L97.512 Non-pressure chronic ulcer of other part of right foot with fat layer exposed; T65.222D Toxic effect of tobacco cigarettes, intentional self-harm, subsequent encounter; E11.52 Type 2 diabetes mellitus with diabetic peripheral angiopathy with gangrene; F17.218 Nicotine dependence, cigarettes, with other nicotine-induced disorders | CPT/HCPCS: 11042; A6197; G0463 ==

== ENCOUNTER → 2021-06-08 | Outpatient (CLI) | payer MEDICARE, MEDICAID ==
[2021-06-08 13:36] LABS: BASOPHILS # (AUTO) 0.1 10^3/uL (0.0-0.1); BASOPHILS % (AUTO) 1 % (0-10); EOSINOPHILS # (AUTO) 0.4 10^3/uL (0.0-0.3); EOSINOPHILS % (AUTO) 3 % (0-10); HEMATOCRIT 42 % (35-52); HEMOGLOBIN 13.5 g/dL (11.5-16.0); LYMPHOCYTES # (AUTO) 3.5 10^3/uL (1.0-4.0); LYMPHOCYTES % (AUTO) 26 % (12-44); MEAN CORPUSCULAR HEMOGLOBIN 30 pg (25-34); MEAN CORPUSCULAR HGB CONC 32 g/dL (32-36); MEAN CORPUSCULAR VOLUME 95 fL (80-99); MEAN PLATELET VOLUME 9.9 fL (9.0-12.2); MONOCYTES # (AUTO) 0.9 10^3/uL (0.0-1.0); MONOCYTES % (AUTO) 7 % (0-12); NEUTROPHILS # (AUTO) 8.6 10^3/uL (1.8-7.8); NEUTROPHILS % (AUTO) 63 % (42-75); PLATELET COUNT 369 10^3/uL (130-400); WHITE BLOOD COUNT 13.6 10^3/uL (4.3-11.0)
[2021-06-08 13:49] LABS: ALBUMIN 3.8 GM/DL (3.2-4.5); BILIRUBIN,TOTAL 0.2 MG/DL (0.1-1.0); CALCIUM 9.6 MG/DL (8.5-10.1); CREATININE SERUM 0.8 MG/DL (0.60-1.30); POTASSIUM 4.3 MMOL/L (3.6-5.0)
== END ==
LOC: ONC 13:20
PROVIDERS: ATTEND Internal Medicine Hematology & Oncology
DX: D72.829 Elevated white blood cell count, unspecified (principal); E11.9 Type 2 diabetes mellitus without complications; I10 Essential (primary) hypertension; E78.5 Hyperlipidemia, unspecified; E03.9 Hypothyroidism, unspecified
CPT/HCPCS: 80053; 85025; G0463

== ENCOUNTER → 2021-06-08 | Outpatient (CLI) | payer MEDICARE, MEDICAID | LOC: WOUNDCARE 08:14 | PROVIDERS: ATTEND Surgery | DX: E11.621 Type 2 diabetes mellitus with foot ulcer (principal); I96 Gangrene, not elsewhere classified; E11.42 Type 2 diabetes mellitus with diabetic polyneuropathy; L97.512 Non-pressure chronic ulcer of other part of right foot with fat layer exposed | CPT/HCPCS: 11042; G0463 ==

== ENCOUNTER → 2021-06-22 | Outpatient (CLI) | payer MEDICARE, MEDICAID | LOC: WOUNDCARE 08:35 | PROVIDERS: ATTEND Surgery | DX: E11.621 Type 2 diabetes mellitus with foot ulcer (principal); I96 Gangrene, not elsewhere classified; E11.42 Type 2 diabetes mellitus with diabetic polyneuropathy; L97.512 Non-pressure chronic ulcer of other part of right foot with fat layer exposed | CPT/HCPCS: 11042; G0463 ==

== ENCOUNTER → 2021-07-10 | Outpatient (CLI) | payer MEDICARE, MEDICAID | LOC: WOUNDCARE 13:24 | PROVIDERS: ATTEND Surgery | DX: E11.621 Type 2 diabetes mellitus with foot ulcer (principal); E11.42 Type 2 diabetes mellitus with diabetic polyneuropathy; L97.512 Non-pressure chronic ulcer of other part of right foot with fat layer exposed; E11.52 Type 2 diabetes mellitus with diabetic peripheral angiopathy with gangrene | CPT/HCPCS: 11042; G0463 ==

== ENCOUNTER → 2021-07-17 | Outpatient (CLI) | payer MEDICARE, MEDICAID | LOC: WOUNDCARE 12:59 | PROVIDERS: ATTEND Family Medicine | DX: E11.621 Type 2 diabetes mellitus with foot ulcer (principal); E11.42 Type 2 diabetes mellitus with diabetic polyneuropathy; L97.512 Non-pressure chronic ulcer of other part of right foot with fat layer exposed; E11.52 Type 2 diabetes mellitus with diabetic peripheral angiopathy with gangrene; Z72.0 Tobacco use | CPT/HCPCS: 11042; G0463 ==

== ENCOUNTER → 2021-07-24 | Outpatient (CLI) | payer MEDICARE, MEDICAID | LOC: WOUNDCARE 13:15 | PROVIDERS: ATTEND Family Medicine | DX: E11.621 Type 2 diabetes mellitus with foot ulcer (principal); E11.52 Type 2 diabetes mellitus with diabetic peripheral angiopathy with gangrene; E11.42 Type 2 diabetes mellitus with diabetic polyneuropathy; L97.512 Non-pressure chronic ulcer of other part of right foot with fat layer exposed; Z72.0 Tobacco use | CPT/HCPCS: 11042; G0463 ==

== ENCOUNTER → 2021-07-31 | Outpatient (CLI) | payer MEDICARE, MEDICAID ==
[~2021-07-31] MED LIST changes: -DULO60CA6 PO; +DULO60CA7 PO
== END ==
LOC: WOUNDCARE 10:51
PROVIDERS: ATTEND Family Medicine
DX: L97.512 Non-pressure chronic ulcer of other part of right foot with fat layer exposed (principal); E11.621 Type 2 diabetes mellitus with foot ulcer; E11.42 Type 2 diabetes mellitus with diabetic polyneuropathy; Z72.0 Tobacco use
CPT/HCPCS: 11042; G0463; L4360

== ENCOUNTER → 2021-08-07 | Outpatient (CLI) | payer MEDICARE, MEDICAID | LOC: WOUNDCARE 10:41 | PROVIDERS: ATTEND Family Medicine | DX: E11.621 Type 2 diabetes mellitus with foot ulcer (principal); E11.42 Type 2 diabetes mellitus with diabetic polyneuropathy; L97.512 Non-pressure chronic ulcer of other part of right foot with fat layer exposed; E11.52 Type 2 diabetes mellitus with diabetic peripheral angiopathy with gangrene; Z72.0 Tobacco use | CPT/HCPCS: 11042; G0463 ==

== ENCOUNTER → 2021-08-14 | Outpatient (CLI) | payer MEDICARE, MEDICAID | LOC: WOUNDCARE 11:28 | PROVIDERS: ATTEND Family Medicine | DX: E11.621 Type 2 diabetes mellitus with foot ulcer (principal); E11.42 Type 2 diabetes mellitus with diabetic polyneuropathy; L97.512 Non-pressure chronic ulcer of other part of right foot with fat layer exposed; E11.52 Type 2 diabetes mellitus with diabetic peripheral angiopathy with gangrene; Z72.0 Tobacco use | CPT/HCPCS: 11042; G0463 ==

== ENCOUNTER → 2021-08-23 | Outpatient (CLI) | payer MEDICARE, MEDICAID ==
[~2021-08-23] MED LIST changes: -LISI-729 PO; +LISI5TAB20 PO; +TIZA-186 PO; -TIZA4TAB4 PO
== END ==
LOC: WOUNDCARE 10:48
PROVIDERS: ATTEND Family Medicine
DX: E11.621 Type 2 diabetes mellitus with foot ulcer (principal); E11.42 Type 2 diabetes mellitus with diabetic polyneuropathy; E11.52 Type 2 diabetes mellitus with diabetic peripheral angiopathy with gangrene; L97.512 Non-pressure chronic ulcer of other part of right foot with fat layer exposed; Z72.0 Tobacco use
CPT/HCPCS: 11042; G0463

== ENCOUNTER → 2021-08-31 | Outpatient (CLI) | payer MEDICARE, MEDICAID | LOC: WOUNDCARE 08:16 | PROVIDERS: ATTEND Family Medicine | DX: E11.621 Type 2 diabetes mellitus with foot ulcer (principal); E11.42 Type 2 diabetes mellitus with diabetic polyneuropathy; L97.512 Non-pressure chronic ulcer of other part of right foot with fat layer exposed; E11.52 Type 2 diabetes mellitus with diabetic peripheral angiopathy with gangrene; Z72.0 Tobacco use | CPT/HCPCS: 11042; G0463 ==

== ENCOUNTER → 2021-09-12 | Outpatient (CLI) | payer MEDICARE, MEDICAID ==
--- NOTE | 2021-09-12 14:27 | Diagnostic Imaging Report ---
CT Lung Screening INDICATION: 47-iyjc-edsw smoking history, for screening. TECHNIQUE: Noncontrast, low-dose CT imaging performed according to the lung cancer screening protocol. Auto Exposure Controls were utilized during the CT exam to meet ALARA standards for radiation dose reduction. COMPARISON: 09/05/2020. FINDINGS: No lung mass or suspicious pulmonary nodule. No findings of edema or pneumonia. There is no axillary, hilar, or mediastinal lymphadenopathy, and there is no pleural or pericardial effusion. There are coronary artery atherosclerotic vascular calcifications, chronic. The visualized upper abdomen appeared nonacute. IMPRESSION: No evidence for lung cancer or other acute abnormalities. LUNG-RADS CATEGORY: 1 MODIFIER: None. OTHER SIGNIFICANT FINDINGS: Coronary atherosclerotic vascular calcifications. Dictated by: Dictated on workstation # [id number]
== END ==
LOC: RAD 12:45
PROVIDERS: ATTEND Family Medicine
DX: Z12.2 Encounter for screening for malignant neoplasm of respiratory organs (principal); F17.210 Nicotine dependence, cigarettes, uncomplicated
CPT/HCPCS: 71271

== ENCOUNTER → 2021-09-14 | Outpatient (CLI) | payer MEDICARE, MEDICAID | LOC: WOUNDCARE 08:03 | PROVIDERS: ATTEND Family Medicine | DX: E11.621 Type 2 diabetes mellitus with foot ulcer (principal); E11.42 Type 2 diabetes mellitus with diabetic polyneuropathy; L97.512 Non-pressure chronic ulcer of other part of right foot with fat layer exposed; E11.52 Type 2 diabetes mellitus with diabetic peripheral angiopathy with gangrene; Z72.0 Tobacco use | CPT/HCPCS: 99213 ==

== ENCOUNTER → 2021-09-21 | Outpatient (CLI) | payer MEDICARE, MEDICAID | LOC: WOUNDCARE 08:16 | PROVIDERS: ATTEND Family Medicine | DX: E11.621 Type 2 diabetes mellitus with foot ulcer (principal); E11.42 Type 2 diabetes mellitus with diabetic polyneuropathy; E11.52 Type 2 diabetes mellitus with diabetic peripheral angiopathy with gangrene; L97.512 Non-pressure chronic ulcer of other part of right foot with fat layer exposed; L97.528 Non-pressure chronic ulcer of other part of left foot with other specified severity; Z72.0 Tobacco use | CPT/HCPCS: 11042; G0463 ==

== ENCOUNTER → 2021-09-28 | Outpatient (CLI) | payer MEDICARE, MEDICAID | LOC: WOUNDCARE 08:01 | PROVIDERS: ATTEND Family Medicine | DX: E11.621 Type 2 diabetes mellitus with foot ulcer (principal); E11.42 Type 2 diabetes mellitus with diabetic polyneuropathy; L97.528 Non-pressure chronic ulcer of other part of left foot with other specified severity; Z72.0 Tobacco use | CPT/HCPCS: 99213 ==

== ENCOUNTER → 2021-10-12 | Outpatient (CLI) | payer MEDICARE, MEDICAID | LOC: WOUNDCARE 07:59 | PROVIDERS: ATTEND Family Medicine | DX: E11.621 Type 2 diabetes mellitus with foot ulcer (principal); E11.42 Type 2 diabetes mellitus with diabetic polyneuropathy; L97.528 Non-pressure chronic ulcer of other part of left foot with other specified severity; L97.512 Non-pressure chronic ulcer of other part of right foot with fat layer exposed; E11.52 Type 2 diabetes mellitus with diabetic peripheral angiopathy with gangrene | CPT/HCPCS: 99213 ==

== ENCOUNTER → 2021-10-19 | Outpatient (CLI) | payer MEDICARE, MEDICAID | LOC: WOUNDCARE 08:07 | PROVIDERS: ATTEND Family Medicine | DX: E11.621 Type 2 diabetes mellitus with foot ulcer (principal); E11.42 Type 2 diabetes mellitus with diabetic polyneuropathy; L97.528 Non-pressure chronic ulcer of other part of left foot with other specified severity; L97.512 Non-pressure chronic ulcer of other part of right foot with fat layer exposed; E66.01 Morbid (severe) obesity due to excess calories; E11.52 Type 2 diabetes mellitus with diabetic peripheral angiopathy with gangrene | CPT/HCPCS: 11042; G0463 ==

== ENCOUNTER → 2021-10-26 | Outpatient (CLI) | payer MEDICARE, MEDICAID ==
[2021-10-26 09:40] LABS: ALBUMIN 3.7 GM/DL (3.2-4.5); BILIRUBIN,TOTAL 0.2 MG/DL (0.1-1.0); CALCIUM 9.1 MG/DL (8.5-10.1); CREATININE SERUM 0.79 MG/DL (0.60-1.30); POTASSIUM 4.3 MMOL/L (3.6-5.0); TOTAL PROTEIN 6.9 GM/DL (6.4-8.2)
== END ==
LOC: LAB 09:01
PROVIDERS: ATTEND Internal Medicine Cardiovascular Disease
DX: E78.2 Mixed hyperlipidemia (principal)
CPT/HCPCS: 36415; 80053; 80061

== ENCOUNTER → 2021-10-26 | Outpatient (CLI) | payer MEDICARE, MEDICAID | LOC: WOUNDCARE 08:14 | PROVIDERS: ATTEND Family Medicine | DX: E11.621 Type 2 diabetes mellitus with foot ulcer (principal); E11.42 Type 2 diabetes mellitus with diabetic polyneuropathy; L97.528 Non-pressure chronic ulcer of other part of left foot with other specified severity; L97.512 Non-pressure chronic ulcer of other part of right foot with fat layer exposed; E66.01 Morbid (severe) obesity due to excess calories; E11.52 Type 2 diabetes mellitus with diabetic peripheral angiopathy with gangrene | CPT/HCPCS: 11042; G0463 ==

== ENCOUNTER → 2021-11-09 | Outpatient (CLI) | payer MEDICARE, MEDICAID ==
[~2021-11-09] MED LIST changes: +BISA-89 PO; -BISA5TAB49 PO
== END ==
LOC: WOUNDCARE 09:52
PROVIDERS: ATTEND Family Medicine
DX: E11.621 Type 2 diabetes mellitus with foot ulcer (principal); E11.42 Type 2 diabetes mellitus with diabetic polyneuropathy; L97.528 Non-pressure chronic ulcer of other part of left foot with other specified severity; L97.512 Non-pressure chronic ulcer of other part of right foot with fat layer exposed; E66.01 Morbid (severe) obesity due to excess calories; Z68.32 Body mass index [BMI] 32.0-32.9, adult
CPT/HCPCS: 99213

== ENCOUNTER → 2022-04-16 | Outpatient (CLI) | payer MEDICARE, MEDICAID ==
[~2022-04-16] MED LIST changes: +BUPR-105 PO; -BUPR150T14 PO; +OMEP20TA56 PO; -OMEP20TA7 PO; -VENL150C PO; +VENL150C3 PO
[2022-04-16 10:59] LABS: BASOPHILS # (AUTO) 0.1 10^3/uL (0.0-0.1); BASOPHILS % (AUTO) 1 % (0-10); EOSINOPHILS # (AUTO) 0.2 10^3/uL (0.0-0.3); EOSINOPHILS % (AUTO) 1 % (0-10); HEMATOCRIT 36 % (35-52); HEMOGLOBIN 11.2 g/dL (11.5-16.0); LYMPHOCYTES # (AUTO) 3.5 10^3/uL (1.0-4.0); LYMPHOCYTES % (AUTO) 20 % (12-44); MEAN CORPUSCULAR HEMOGLOBIN 27 pg (25-34); MEAN CORPUSCULAR HGB CONC 31 g/dL (32-36); MEAN CORPUSCULAR VOLUME 87 fL (80-99); MEAN PLATELET VOLUME 8.7 fL (9.0-12.2); MONOCYTES # (AUTO) 1.1 10^3/uL (0.0-1.0); MONOCYTES % (AUTO) 6 % (0-12); NEUTROPHILS % (AUTO) 72 % (42-75); PLATELET COUNT 479 10^3/uL (130-400)
[2022-04-16 11:13] LABS: ALBUMIN 3.2 GM/DL (3.2-4.5); BILIRUBIN,TOTAL 0.3 MG/DL (0.1-1.0); CALCIUM 9.2 MG/DL (8.5-10.1); CREATININE SERUM 0.97 MG/DL (0.60-1.30); POTASSIUM 3.8 MMOL/L (3.6-5.0); TOTAL PROTEIN 7.4 GM/DL (6.4-8.2)
[2022-04-16 11:18] LABS: ERYTHROCYTE SEDIMENTATION RATE 119 MM/HR (0-30)
[2022-04-16 11:24] LABS: ANISOCYTOSIS SLIGHT; BAND NEUTROPHILS 1 %; EOSINOPHILS % (MANUAL) 1 %; LYMPHOCYTES % (MANUAL) 16 %; MONOCYTES % (MANUAL) 6 %; NEUTROPHILS % (MANUAL) 76 %
--- NOTE | 2022-04-16 12:07 | Diagnostic Imaging Report ---
Indication: Diabetic ulcer. Time of Exam: 11:00 a.m. 3 views of the right foot were obtained. There is soft tissue swelling along the dorsum of the foot. No soft tissue gas is identified. No definite bony destructive changes are seen to suggest osteomyelitis. No fractures are identified. Impression: Soft tissue swelling. No definite bony destructive changes are identified to suggest osteomyelitis. Dictated by: Dictated on workstation # [id number]
== END ==
LOC: RAD 10:29
PROVIDERS: ATTEND Family Medicine
DX: L03.115 Cellulitis of right lower limb (principal); E11.622 Type 2 diabetes mellitus with other skin ulcer; M79.89 Other specified soft tissue disorders
CPT/HCPCS: 36415; 73630; 80053; 85007; 85027; 85652; 86141

== ENCOUNTER 2022-04-20 12:47 | Observation (INO) | payer MEDICARE, MEDICAID ==
[~2022-04-20] VITALS: Ht 152.4 cm; Wt 80.0 kg
[2022-04-20 13:50] LABS: BASOPHILS # (AUTO) 0.1 10^3/uL (0.0-0.1); BASOPHILS % (AUTO) 1 % (0-10); EOSINOPHILS # (AUTO) 0.2 10^3/uL (0.0-0.3); EOSINOPHILS % (AUTO) 1 % (0-10); HEMATOCRIT 37 % (35-52); HEMOGLOBIN 11.8 g/dL (11.5-16.0); LYMPHOCYTES # (AUTO) 3.8 10^3/uL (1.0-4.0); LYMPHOCYTES % (AUTO) 28 % (12-44); MEAN CORPUSCULAR HEMOGLOBIN 28 pg (25-34); MEAN CORPUSCULAR HGB CONC 32 g/dL (32-36); MEAN CORPUSCULAR VOLUME 87 fL (80-99); MEAN PLATELET VOLUME 8.8 fL (9.0-12.2); MONOCYTES # (AUTO) 0.8 10^3/uL (0.0-1.0); MONOCYTES % (AUTO) 6 % (0-12); NEUTROPHILS # (AUTO) 8.6 10^3/uL (1.8-7.8); NEUTROPHILS % (AUTO) 64 % (42-75); PLATELET COUNT 572 10^3/uL (130-400); WHITE BLOOD COUNT 13.5 10^3/uL (4.3-11.0)
[2022-04-20 13:52] LABS: ALBUMIN 3.5 GM/DL (3.2-4.5); POTASSIUM 4.1 MMOL/L (3.6-5.0)
[2022-04-20 13:53] LABS: CALCIUM 9.3 MG/DL (8.5-10.1)
[2022-04-20 13:54] LABS: TOTAL PROTEIN 7.7 GM/DL (6.4-8.2)
[2022-04-20 13:56] LABS: BILIRUBIN,TOTAL 0.3 MG/DL (0.1-1.0)
[2022-04-20 13:58] LABS: CREATININE SERUM 0.77 MG/DL (0.60-1.30)
--- NOTE | 2022-04-20 14:49 | Diagnostic Imaging Report ---
CLINICAL HISTORY: Right leg pain. Concern for right great toe osteomyelitis. COMPARISON: 04/16/2022. TECHNIQUE: Two views of the right foot. FINDINGS: There is no acute fracture or dislocation of the right foot. There has been interval debridement of the soft tissues adjacent to the right first IP joint. No radiographic evidence of osteomyelitis. IMPRESSION: 1. Interval debridement of the soft tissues adjacent to the right first IP joint. No acute fracture or radiographic evidence of osteomyelitis. Recommend continued follow-up as indicated. Dictated by: Dictated on workstation # [id number]
--- NOTE | 2022-04-20 15:34 | ED Lower Extremity ---
General Chief Complaint: Lower Extremity Stated Complaint: INFECTION R FOOT Nursing Triage Note: PT AMB TO RM 3 FROM [facility]. PT C/O R LEG PAIN AND INFECTED GREAT TOE. PT REPORTS DEBRIEDMENT 04/18/22. PT STATES HAS PAIN IN R LEG AT THIS TIME. Source: patient Exam Limitations: no limitations History of Present Illness Date Seen by Provider: Apr 20, 2022 Time Seen by Provider: 13:40 Initial Comments This 56-year-old woman presents to the emergency room as referred by the [facility] clinic for management of a chronic diabetic wound on her right foot that has eroded to exposed bone. She has localized erythema and inflammation. She has been struggling with this wound for years and has essentially failed outpatient wound care. She has been seeing Dr. Rodriguez in the outpatient setting. Allergies and Home Medications Allergies Coded Allergies: No Known Drug Allergies (Unverified , 10/02/18) Patient Home Medication List Home Medication List Reviewed: Yes Albuterol Sulfate (Ventolin Hfa) 1 Puff Puff, 2 PUFF INH Q4H PRN for WHEEZING, (Reported) Entered as Reported by: KERWIN KELLY on 09/07/201423 Last Action: Continued Amitriptyline HCl (Amitriptyline HCl) 25 Mg Tablet, 25 MG PO HS, (Reported) Entered as Reported by: KERWIN KELLY on 09/07/201412 Last Action: Continued Atorvastatin Calcium (Atorvastatin Calcium) 40 Mg Tablet, 40 MG PO HS, (Reported) Entered as Reported by: KERWIN KELLY on 09/07/201423 Last Action: Continued Bupropion HCl (Bupropion HCl Sr) 150 Mg Tablet.er, 150 MG PO DAILY, (Reported) Entered as Reported by: KERWIN KELLY on 09/07/201412 Last Action: Continued Duloxetine HCl (Duloxetine HCl) 60 Mg Capsule.dr, 60 MG PO HS, (Reported) Entered as Reported by: KERWIN KELLY on 09/07/201412 Last Action: Converted Duloxetine HCl (Duloxetine HCl) 30 Mg Capsule.dr, 30 MG PO HS, (Reported) Entered as Reported by: KERWIN KELLY on 09/07/201412 Last Action: Continued Levothyroxine Sodium (Levothyroxine Sodium) 50 Mcg Tablet, 50 MCG PO DAILY, (Reported) Entered as Reported by: RODOLFO JAMESON on 12/16/15 1326 Last Action: Continued Metformin HCl (Metformin HCl) 500 Mg Tablet, 500 MG PO DAILY, (Reported) Entered as Reported by: RODOLFO JAMESON on 12/16/15 1326 Last Action: Continued Metformin HCl (Metformin HCl) 1,000 Mg Tablet, 1,000 MG PO HS, (Reported) Entered as Reported by: SAVI RODRÍGUEZ on 04/20/222023 Last Action: Converted Mv-Mn/Folic Acid/Calcium/Vit K (Women's 50 Plus Multivit Tab) 1 Each Tablet, 1 EACH PO DAILY, (Reported) Entered as Reported by: KERWIN KELLY on 09/07/201423 Last Action: Converted Olmesartan Medoxomil (Olmesartan Medoxomil) 5 Mg Tablet, 5 MG PO DAILY, (Reported) Entered as Reported by: KERWIN KELLY on 09/07/20 141 Last Action: Converted Pantoprazole Sodium (Protonix) 40 Mg Tablet.dr, 40 MG PO DAILY Prescribed by: LUCILA HORTON on 09/13/20 0934 Last Action: Continued Polyethylene Glycol 3350 (Miralax) 119 Gm Powder, 17 GM PO DAILY PRN for CONSTIPATION-1ST LINE, (Reported) Entered as Reported by: KERWIN KELLY on 09/07/20 142 Last Action: Continued Potassium Chloride (Potassium Chloride) 10 Meq Capsule.er, 10 MEQ PO BID, (Rep orted) Entered as Reported by: YUNIOR ARREDONDO on 03/21/17 1539 Last Action: Converted Promethazine HCl (Promethazine Tablet) 25 Mg Tablet, 25 MG PO Q6H PRN for NAUSEA/VOMITING, (Reported) Entered as Reported by: RODOLFO JAMESON on 10/02/18 1159 Last Action: Continued Ropinirole HCl (Ropinirole HCl) 0.25 Mg Tablet, 0.25 MG PO HS, (Reported) Entered as Reported by: KERWIN KLELY on 09/07/20 142 Last Action: Continued Tizanidine HCl (Tizanidine HCl) 4 Mg Tablet, 4 MG PO TID PRN for MUSCLE SPASMS, (Reported) Entered as Reported by: KERWIN KELLY on 09/07/20 1413 Last Action: Continued Discontinued Medications Melatonin/Pyridoxine HCl (B6) (Melatonin 10 mg Tablet) 1 Each Tab.mphase, 10 MG PO HS PRN for SLEEP, (Reported) Discontinued Reason: No Longer Taking Entered as Reported by: KERWIN KELLY on 09/07/20 1424 Last Action: Discontinued Review of Systems Constitutional: no symptoms reported EENTM: no symptoms reported Respiratory: no symptoms reported Cardiovascular: no symptoms reported Gastrointestinal: no symptoms reported Genitourinary: no symptoms reported : No Musculoskeletal: see HPI Skin: see HPI Psychiatric/Neurological: No Symptoms Reported Past Gkyarfx-Dftxfl-Qyefmj Hx Patient Social History Tobacco Use?: Yes Tobacco type used: Cigarettes Alcohol Use?: No Immunizations Up To Date Tetanus Booster (TDap): Unknown Seasonal Allergies Seasonal Allergies: No Past Medical History Surgeries: Yes (FOOT X2, BLADDER SLING, SHEMAR CTR, SHEMAR ELBOW, RT SH SCOPE x2 & RCR, HERNIA X5) Adenoidectomy, Orthopedic, Tonsillectomy Respiratory: Yes Pulmonary Embolism Currently Using CPAP: No Currently Using BIPAP: No Cardiac: Yes (HAS GREENFILED FILTER, HX DVT AND PE, SKIP BEATS) Deep Vein Thrombosis, High Cholesterol, Hypertension Neurological: Yes (GUILLIAN BARRE) Headaches /Migraines 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 Disorders: No Female 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 Sexually Transmitted Disease: No HIV/AIDS: No Genitourinary: No Gastrointestinal: Yes (FATTY LIVER, dysphagia) Gastroesophageal Reflux Musculoskeletal: Yes Degenerate Disk Disease, Arthritis, Scoliosis, Chronic Back Pain Endocrine: Yes Hypothyroidsim, Diabetes, Non-Insulin dep HEENT: Yes (GLASSES) Loss of Vision: Bilateral Hearing Impairment: Denies Cancer: No Psychosocial: Yes Anxiety, Depression Integumentary: Yes (Chronic diabetic foot ulcers) Blood Disorders: No Adverse Reaction/Blood Tranf: No (N/A) Family Medical History Colon cancer requiring screening colonoscopy No Pertinent Family Hx Physical Exam Vital Signs Vital Signs - First Documented 04/20/22 12:56 Temp 36.2 Pulse 93 Resp 16 B/P (MAP) 140/54 (82) Pulse Ox 97 O2 Delivery Room Air Capillary Refill : Less Than 3 Seconds Height, Weight, BMI Height: 5'0" Weight: 179lbs. 4.0oz. 81.775970na; 34.00 BMI Method:Stated General Appearance: WD/WN, no apparent distress HEENT: normal ENT inspection Cardiovascular: regular rate, rhythm, no edema, no murmur Respiratory: lungs clear, normal breath sounds, no respiratory distress Feet: bilateral foot other (Erosion of ulcer on the medial aspect of the right great toe with exposed bone. There is localized inflammation of the skin with edema and erythema. Smaller ulcer is present on the plantar aspect of the left great toe.) Neurologic/Tendon: normal sensation, normal motor functions Neurologic/Psychiatric: no motor/sensory deficits, alert, normal mood/affect, oriented x 3 Skin: normal color, warm/dry, other (See above) Progress/Results/Core Measures Results/Orders Lab Results Laboratory Tests Test 04/20/22 13:20 04/20/22 13:26 Range/Units White Blood Count 13.5 H 4.3-11.0 10^3/uL Red Blood Count 4.22 3.80-5.11 10^6/uL Hemoglobin 11.8 11.5-16.0 g/dL Hematocrit 37 35-52 % Mean Corpuscular Volume 87 80-99 fL Mean Corpuscular Hemoglobin 28 25-34 pg Mean Corpuscular Hemoglobin Concent 32 32-36 g/dL Red Cell Distribution Width 16.6 H 10.0-14.5 % Platelet Count 572 H 130-400 10^3/uL Mean Platelet Volume 8.8 L 9.0-12.2 fL Immature Granulocyte % (Auto) 1 % Neutrophils (%) (Auto) 64 42-75 % Lymphocytes (%) (Auto) 28 12-44 % Monocytes (%) (Auto) 6 0-12 % Eosinophils (%) (Auto) 1 0-10 % Basophils (%) (Auto) 1 0-10 % Neutrophils # (Auto) 8.6 H 1.8-7.8 10^3/uL Lymphocytes # (Auto) 3.8 1.0-4.0 10^3/uL Monocytes # (Auto) 0.8 0.0-1.0 10^3/uL Eosinophils # (Auto) 0.2 0.0-0.3 10^3/uL Basophils # (Auto) 0.1 0.0-0.1 10^3/uL Immature Granulocyte # (Auto) 0.1 0.0-0.1 10^3/uL Sodium Level 140 135-145 MMOL/L Potassium Level 4.1 3.6-5.0 MMOL/L Chloride Level 105 98-107 MMOL/L Carbon Dioxide Level 20 L 21-32 MMOL/L Anion Gap 15 H 5-14 MMOL/L Blood Urea Nitrogen 7 7-18 MG/DL Creatinine 0.77 0.60-1.30 MG/DL Estimat Glomerular Filtration Rate 90 BUN/Creatinine Ratio 9 Glucose Level 111 H 70-105 MG/DL Calcium Level 9.3 8.5-10.1 MG/DL Corrected Calcium 9.7 8.5-10.1 MG/DL Total Bilirubin 0.3 0.1-1.0 MG/DL Aspartate Amino Transf (AST/SGOT) 24 5-34 U/L Alanine Aminotransferase (ALT/SGPT) 19 0-55 U/L Alkaline Phosphatase 96 40-136 U/L C-Reactive Protein High Sensitivity 2.51 H 0.00-0.50 MG/DL Total Protein 7.7 6.4-8.2 GM/DL Albumin 3.5 3.2-4.5 GM/DL Prothrombin Time 13.5 12.2-14.7 SEC INR Comment 1.0 0.8-1.4 Activated Partial Thromboplast Time 33 24-35 SEC Lactic Acid Level 2.28 *H 0.50-2.00 MMOL/L My Orders Orders - NAMAN CARRASCO MD Cbc With Automated Diff (04/20/22 13:45) Comprehensive Metabolic Panel (04/20/22 13:45) Hs C Reactive Protein (04/20/22 13:45) Ed Iv/Invasive Line Start (04/20/22 13:45) Foot, Right, 2 View (04/20/22 13:46) Piperacillin Sodium/Tazobactam (Zosyn Vi (04/20/22 15:45) Ed Admission (Communication) (04/20/22 15:37) Vital Signs/I&O 04/20/22 12:56 Temp 36.2 Pulse 93 Resp 16 B/P (MAP) 140/54 (82) Pulse Ox 97 O2 Delivery Room Air Blood Pressure Mean: 82 Progress Progress Note : Progress Note Dr. Elam was consulted and presented to the ER to discuss options with the patient. Patient elected admission with surgery anticipated in the morning. Blood cultures and lactic acid were obtained before starting antibiotic therapy. X-rays demonstrated no obvious osteomyelitis. Right tib-fib x-rays were occluded as patient was having some significant pain on the anterior aspect of the right lower leg. Case was discussed with Dr. Sawyer who agreed to admission. Patient requests full CODE STATUS. Diagnostic Imaging Diagonstic Imaging: Xray Plain Films/CT/US/NM/MRI: other (Right foot) Comments NAME: CAIN HAJI [facility] REC#: [id number] PT STATUS: REG ER : 1965 PHYSICIAN: NAMAN CARRASCO MD ADMIT DATE: 04/20/22/ER Signed Date of Exam:04/20/22 FOOT, RIGHT, 2 VIEW CLINICAL HISTORY: Right leg pain. Concern for right great toe osteomyelitis. COMPARISON: 04/16/2022. TECHNIQUE: Two views of the right foot. FINDINGS: There is no acute fracture or dislocation of the right foot. There has been interval debridement of the soft tissues adjacent to the right first IP joint. No radiographic evidence of osteomyelitis. IMPRESSION: 1. Interval debridement of the soft tissues adjacent to the right first IP joint. No acute fracture or radiographic evidence of osteomyelitis. Recommend continued follow-up as indicated. Dictated by: Dictated on workstation # [id number] Dict: 04/20/22 1444 Trans: 04/20/22 1450 [id number] Interpreted by: CHAD GALEANO DO Electronically signed by: CHAD GALEANO DO 04/20/22 1450 Diagonstic Imaging: Xray Plain Films/CT/US/NM/MRI: leg Comments NAME: CAIN HAJI [facility] REC#: [id number] PT STATUS: ADM Tonia : 1965 PHYSICIAN: NAMAN CARRASCO MD ADMIT DATE: 04/20/22 Signed Date of Exam:04/20/22 TIBIA/FIBULA, RIGHT, 2 VIEWS HISTORY: Pain in the right tibia and fibula. TECHNIQUE: Two views of the right tibia and fibula. COMPARISON: None. FINDINGS: No acute fracture or dislocation is seen in the right tibia and fibula. Alignment is normal. Joint spaces are preserved. IMPRESSION: 1. No acute osseous abnormality is seen in the right tibia and fibula. Dictated by: Dictated on workstation # [id number] Dict: 04/20/22 1609 Trans: 04/20/22 1738 [facility] [id number] Interpreted by: SORIN CULVER MD Electronically signed by: SORIN CULVER MD 04/20/22 1738 Diagonstic Imaging: Xray Plain Films/CT/US/NM/MRI: chest Comments NAME: CAIN HAJI [facility] REC#: [id number] PT STATUS: REG ER : 1965 PHYSICIAN: NAMAN CARRASCO MD ADMIT DATE: 04/20/22/ER Draft Date of Exam:04/20/22 CHEST 1 VIEW, AP/PA ONLY EXAM: Chest 1 view, AP/PA only INDICATION: 40 pack year smoking history. COMPARISON: Low-dose lung screening chest CT 09/12/2021. FINDINGS: Low lung volumes accentuate the heart size. Normal central pulmonary vascularity. No focal pulmonary opacity. No pleural effusion or pneumothorax. No acute osseous finding. IMPRESSION: Low lung volumes. Chest is otherwise negative. Dictated on workstation # [id number] Dict: 04/20/22 1609 Trans: 04/20/22 1611 [facility] [id number] Interpreted by: MARIA ELENA MORGAN MD Departure Communication (Admissions) Time/Spoke to Admitting Phy: 15:35 Dr. Sawyer Time/Spoke to Consulting Phy: 15:00 Dr. Elam Impression Primary Impression: Diabetic foot ulcer Qualified Codes: E11.621 - Type 2 diabetes mellitus with foot ulcer; L97.519 - Non-pressure chronic ulcer of other part of right foot with unspecified severity Additional Impression: Cellulitis Qualified Codes: L03.031 - Cellulitis of right toe Disposition: ADMITTED INPATIENT Condition: Stable Admissions Decision to Admit Reason: Admit from ER (General) Decision to Admit/Date: Apr 20, 2022 Time/Decision to Admit Time: 15:00 Departure-Patient Inst. Referrals: GEO LOUISE MD (PCP/Family) Primary Care Physician Copy Copies To 1: GEO LOUISE MD, JOSHUA T MD Apr 20, 2022 15:34
--- NOTE | 2022-04-20 15:44 | Consultation - Surgery ---
YOEL RICHARDSON 04/20/22 1544: History of Present Illness History of Present Illness Patient Consulted On(britt/time) 04/20/22 15:39 Date Seen by Provider: Apr 20, 2022 Time Seen by Provider: 14:01 Reason for Visit: Diabetic foot wound History of Present Illness Ms. Yeager is a 56 year old female with a past medical history significant for Guillan-Montgomery syndrome, non-insulin dependent diabetes, HTN, and HLD who presented to the ED for a diabetic foot wound of her right great toe. She reports she has been seeing wound care in [place] and had an appointment with a surgeon for May [address] Farah ordered an outpatient MRI for her and prescribed clindamycin. She came to the ED due to pain located on the anterior aspect of her hoffman and because she was worried about her toe. She says nothing makes her pain better and movement makes it worse. She rates it as a 12/10. She denies pain or feeling in her toes. Allergies and Home Medications Allergies Coded Allergies: No Known Drug Allergies (Unverified , 10/02/18) Patient Home Medication List Albuterol Sulfate (Ventolin Hfa) 1 Puff Puff, 2 PUFF INH Q4H PRN for WHEEZING, (Reported) Entered as Reported by: KERWIN KELLY on 09/07/20 142 Amitriptyline HCl (Amitriptyline HCl) 25 Mg Tablet, 25 MG PO HS, (Reported) Entered as Reported by: KERWIN KELLY on 09/07/20 141 Atorvastatin Calcium (Atorvastatin Calcium) 40 Mg Tablet, 40 MG PO HS, (Reported) Entered as Reported by: KERWIN KELLY on 09/07/20 142 Bupropion HCl (Bupropion HCl Sr) 150 Mg Tablet.er, 150 MG PO DAILY, (Reported) Entered as Reported by: KERWIN KELLY on 09/07/20 141 Duloxetine HCl (Duloxetine HCl) 60 Mg Capsule.dr, 60 MG PO HS, (Reported) Entered as Reported by: KERWIN KELLY on 09/07/20 141 Duloxetine HCl (Duloxetine HCl) 30 Mg Capsule.dr, 30 MG PO HS, (Reported) Entered as Reported by: KERWIN KELLY on 09/07/20 1413 Levothyroxine Sodium (Levothyroxine Sodium) 50 Mcg Tablet, 50 MCG PO DAILY, (Reported) Entered as Reported by: RODOLFO JAMESON on 12/16/15 1326 Melatonin/Pyridoxine HCl (B6) (Melatonin 10 mg Tablet) 1 Each Tab.mphase, 10 MG PO HS PRN for SLEEP, (Reported) Entered as Reported by: KERWIN KELLY on 09/07/20 1424 Metformin HCl (Metformin HCl) 500 Mg Tablet, 500 MG PO BID, (Reported) Entered as Reported by: RODOLFO JAMESON on 12/16/15 1326 Mv-Mn/Folic Acid/Calcium/Vit K (Women's 50 Plus Multivit Tab) 1 Each Tablet, 1 EACH PO DAILY, (Reported) Entered as Reported by: KERWIN KELLY on 09/07/20 1424 Olmesartan Medoxomil (Olmesartan Medoxomil) 5 Mg Tablet, 5 MG PO DAILY, (Reported) Entered as Reported by: KERWIN KELLY on 09/07/20 1413 Pantoprazole Sodium (Protonix) 40 Mg Tablet.dr, 40 MG PO DAILY Prescribed by: LUCILA HORTON on 09/13/20 0934 Polyethylene Glycol 3350 (Miralax) 119 Gm Powder, 17 GM PO DAILY PRN for CONSTIPATION-1ST LINE, (Reported) Entered as Reported by: KERWIN KELLY on 09/07/20 1424 Potassium Chloride (Potassium Chloride) 10 Meq Capsule.er, 10 MEQ PO BID, ( Reported) Entered as Reported by: YUNIOR ARREDONDO on 03/21/17 1539 Promethazine HCl (Promethazine Tablet) 25 Mg Tablet, 25 MG PO Q6H PRN for NAUSEA/VOMITING, (Reported) Entered as Reported by: RODOLFO JAMESON on 10/02/18 1159 Ropinirole HCl (Ropinirole HCl) 0.25 Mg Tablet, 0.25 MG PO HS, (Reported) Entered as Reported by: KERWIN KELLY on 09/07/20 1424 Tizanidine HCl (Tizanidine HCl) 4 Mg Tablet, 4 MG PO TID PRN for MUSCLE SPASMS, (Reported) Entered as Reported by: KERWIN KELLY on 09/07/20 1413 Past Iqioyax-Vbauhg-Sbrjvo Hx Patient Social History Smoking Status: Current Everyday Smoker Former Smoker, Quit: Sep 30, 2017 Type Used: Cigarettes (45 years at < 1/2 PPD) 2nd Hand Smoke Exposure: Yes Recent Hopitalizations: No Alcohol Use?: No Have you traveled recently?: No Immunizations Up To Date Tetanus Booster (TDap): Unknown Date of Pneumonia Vaccine: Sep 30, 2012 Seasonal Allergies Seasonal Allergies: No Surgeries History of Surgeries: Yes (FOOT X2, BLADDER SLING, SHEMAR CTR, SHEMAR ELBOW, RT SH SCOPE x2 & RCR, HERNIA X5) Surgeries: Abdominal (Ventral hernia surgery x6), Adenoidectomy, Orthopedic, Tonsillectomy Respiratory History of Respiratory Disorde: Yes Respiratory Disorders: Pulmonary Embolism Cardiovascular History of Cardiac Disorders: Yes (HAS GREENFILED FILTER, HX DVT AND PE, SKIP BEATS) Cardiac Disorders: Deep Vein Thrombosis, High Cholesterol, Hypertension Neurological History of Neurological Disord: Yes (GUILLIAN BARRE) Neurological Disorders: Headaches /Migraines 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 System Hx 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 Disorders: No Sexually Transmitted Disease: No HIV/AIDS: No Female 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 Disorders: Denies 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 Genitourinary History of Genitourinary Disor: No Gastrointestinal History of Gastrointestinal Di: Yes (FATTY LIVER, dysphagia) Gastrointestinal Disorders: Gastroesophageal Reflux Musculoskeletal History of Musculoskeletal Dis: Yes Musculoskeletal Disorders: Degenerate Disk Disease, Arthritis, Scoliosis, Chronic Back Pain Endocrine History of Endocrine Disorders: Yes Endocrine Disorders: Hypothyroidsim, Diabetes, Non-Insulin dep HEENT History of HEENT Disorders: Yes (GLASSES) Loss of Vision: Bilateral Hearing Impairment: Denies Cancer History of Cancer: No Psychosocial History of Psychiatric Problem: Yes Behavioral Health Disorders: Anxiety, Depression Integumentary History of Skin or Integumenta: No Blood Transfusions History of Blood Disorders: No Adverse Reaction to a Blood Tr: No (N/A) Family Medical History Significant Family History: Heart Disease (Mother), Diabetes (Mother), Psychiatric Problems (Depresion, mother) Review of Systems-General Constitutional: No chills, No fever EENTM: No blurred vision, No double vision Respiratory: No cough, No dyspnea on exertion Cardiovascular: No chest pain, No palpitations Gastrointestinal: No abdominal pain, No nausea, No vomiting Musculoskeletal: joint pain, muscle pain, other (Leg pain) Skin: lesions (Right great toe) Psychiatric/Neurological: Headache, Numbness Physical Exam-General Problems Physical Exam Vital Signs Vital Signs - First Documented 04/20/22 12:56 Temp 36.2 Pulse 93 Resp 16 B/P (MAP) 140/54 (82) Pulse Ox 97 O2 Delivery Room Air Capillary Refill : Less Than 3 Seconds General Appearance: mild distress (Episodes of pain in her right leg cause her to stop talking), obese HEENT: PERRL/EOMI; No pale conjunctivae (R), No pale conjunctivae (L) Neck: non-tender, supple Respiratory: no respiratory distress, no accessory muscle use Cardiovascular: normal peripheral pulses, no murmur, tachycardia Peripheral Pulses: 2+ Radial Pulses (R), 2+ Radial Pulses (L) Gastrointestinal: non tender, soft Extremities: calf tenderness (Tenderness of anterior hoffman. No obvious overlying deformity), other (Diabetic foot wound of medial aspect of right great toe. S/p debridement. Slightly ischemic tissue with purulence and erythema.) Neurologic/Psychiatric: alert, oriented x 3 Data Review Labs Laboratory Tests 04/20/22 13:20: White Blood Count 13.5H, Red Blood Count 4.22, Hemoglobin 11.8, Hematocrit 37, Mean Corpuscular Volume 87, Mean Corpuscular Hemoglobin 28, Mean Corpuscular Hemoglobin Concent 32, Red Cell Distribution Width 16.6H, Platelet Count 572H, Mean Platelet Volume 8.8L, Immature Granulocyte % (Auto) 1, Neutrophils (%) (Auto) 64, Lymphocytes (%) (Auto) 28, Monocytes (%) (Auto) 6, Eosinophils (%) (Auto) 1, Basophils (%) (Auto) 1, Neutrophils # (Auto) 8.6H, Lymphocytes # (Auto) 3.8, Monocytes # (Auto) 0.8, Eosinophils # (Auto) 0.2, Basophils # (Auto) 0.1, Immature Granulocyte # (Auto) 0.1, Sodium Level 140, Potassium Level 4.1, Chloride Level 105, Carbon Dioxide Level 20L, Anion Gap 15H, Blood Urea Nitrogen 7, Creatinine 0.77, Estimat Glomerular Filtration Rate 90, BUN/Creatinine Ratio 9, Glucose Level 111H, Calcium Level 9.3, Corrected Calcium 9.7, Total Bilirubin 0.3, Aspartate Amino Transf (AST/SGOT) 24, Alanine Aminotransferase (ALT/SGPT) 19, Alkaline Phosphatase 96, C-Reactive Protein High Sensitivity 2.51H, Total Protein 7.7, Albumin 3.5 Radiology FOOT, RIGHT, 2 VIEW CLINICAL HISTORY: Right leg pain. Concern for right great toe osteomyelitis. COMPARISON: 04/16/2022. TECHNIQUE: Two views of the right foot. FINDINGS: There is no acute fracture or dislocation of the right foot. There has been interval debridement of the soft tissues adjacent to the right first IP joint. No radiographic evidence of osteomyelitis. IMPRESSION: 1. Interval debridement of the soft tissues adjacent to the right first IP joint. No acute fracture or radiographic evidence of osteomyelitis. Recommend continued follow-up as indicated. Assessment/Plan Assessment/Plan Assessment/Plan Diabetic foot wound Right great toe Elevated CRP Smaller ulcer on plantar aspect of left great toe Diabetes HTN HLD Leukocytosis Plain films do not show distinct evidence of ostemyelitis, however it is suspected based upon clinical picture Plan for surgery tomorrow with amputation of right great toe Discussed with patient the option of MRI, outpatient IV abx, or amputation. Patient decided on proceeding with surgery tomorrow Admit to medicine NPO at midnight YVONNE MALLORY DO 04/20/22 1621: History of Present Illness History of Present Illness Time Seen by Provider: 14:01 History of Present Illness Surgery asked to consult regarding right 1st toe wound. HPI: Pt is a 56 yo female who states she says wound care in [facility]; "they've been digging away and debriding it, it's not getting better". She states she has been having increased pain in right leg (along bone); which her significant other states is from "walking on it with her infection". Pain in toe is minimal, but the leg is severe. Allergies and Home Medications Allergies Coded Allergies: No Known Drug Allergies (Unverified , 10/02/18) Patient Home Medication List Home Medication List Reviewed: Yes Albuterol Sulfate (Ventolin Hfa) 1 Puff Puff, 2 PUFF INH Q4H PRN for WHEEZING, (Reported) Entered as Reported by: KERWIN KELLY on 09/07/20 1424 Amitriptyline HCl (Amitriptyline HCl) 25 Mg Tablet, 25 MG PO HS, (Reported) Entered as Reported by: KERWIN KELLY on 09/07/20 1413 Atorvastatin Calcium (Atorvastatin Calcium) 40 Mg Tablet, 40 MG PO HS, (Reported) Entered as Reported by: KERWIN KELLY on 09/07/20 142 Bupropion HCl (Bupropion HCl Sr) 150 Mg Tablet.er, 150 MG PO DAILY, (Reported) Entered as Reported by: KERWIN KELLY on 09/07/20 141 Duloxetine HCl (Duloxetine HCl) 60 Mg Capsule.dr, 60 MG PO HS, (Reported) Entered as Reported by: KERWIN KELLY on 09/07/20 141 Duloxetine HCl (Duloxetine HCl) 30 Mg Capsule.dr, 30 MG PO HS, (Reported) Entered as Reported by: KERWIN KELLY on 09/07/20 141 Levothyroxine Sodium (Levothyroxine Sodium) 50 Mcg Tablet, 50 MCG PO DAILY, (Reported) Entered as Reported by: RODOLFO JAMESON on 12/16/15 1326 Melatonin/Pyridoxine HCl (B6) (Melatonin 10 mg Tablet) 1 Each Tab.mphase, 10 MG PO HS PRN for SLEEP, (Reported) Entered as Reported by: KERWIN KELLY on 09/07/20 142 Metformin HCl (Metformin HCl) 500 Mg Tablet, 500 MG PO BID, (Reported) Entered as Reported by: RODOLFO JAMESON on 12/16/15 1326 Mv-Mn/Folic Acid/Calcium/Vit K (Women's 50 Plus Multivit Tab) 1 Each Tablet, 1 EACH PO DAILY, (Reported) Entered as Reported by: KERWIN KELLY on 09/07/20 142 Olmesartan Medoxomil (Olmesartan Medoxomil) 5 Mg Tablet, 5 MG PO DAILY, (R eported) Entered as Reported by: KERWIN KELLY on 09/07/20 141 Pantoprazole Sodium (Protonix) 40 Mg Tablet.dr, 40 MG PO DAILY Prescribed by: LUCILA HORTON on 09/13/20 0934 Polyethylene Glycol 3350 (Miralax) 119 Gm Powder, 17 GM PO DAILY PRN for CONSTIPATION-1ST LINE, (Reported) Entered as Reported by: KERWIN KELLY on 09/07/20 142 Potassium Chloride (Potassium Chloride) 10 Meq Capsule.er, 10 MEQ PO BID, (Reported) Entered as Reported by: YUNIOR ARREDONDO on 03/21/17 1539 Promethazine HCl (Promethazine Tablet) 25 Mg Tablet, 25 MG PO Q6H PRN for NAUSEA/VOMITING, (Reported) Entered as Reported by: ROODLFO JAMESON on 10/02/18 1159 Ropinirole HCl (Ropinirole HCl) 0.25 Mg Tablet, 0.25 MG PO HS, (Reported) Entered as Reported by: KERWIN KELLY on 09/07/20 1424 Tizanidine HCl (Tizanidine HCl) 4 Mg Tablet, 4 MG PO TID PRN for MUSCLE SPASMS, (Reported) Entered as Reported by: KERWIN KELLY on 09/07/20 1413 Past Ghqeamv-Rwnkdx-Yxubfi Hx Patient Social History Smoking Status: Current Everyday Smoker Type Used: Cigarettes (45 years at < 1/2 PPD) Alcohol Use?: No Surgeries History of Surgeries: Yes Surgeries: Abdominal (Ventral hernia surgery x6), Adenoidectomy, Orthopedic, Tonsillectomy Respiratory History of Respiratory Disorde: Yes Respiratory Disorders: Pulmonary Embolism Cardiovascular History of Cardiac Disorders: Yes Cardiac Disorders: High Cholesterol, Hypertension, Irregular Heartbeat, Peripheral Vascular Neurological History of Neurological Disord: Yes (hx of Guillan Montgomery) Neurological Disorders: Headaches /Migraines Genitourinary History of Genitourinary Disor: No Gastrointestinal History of Gastrointestinal Di: Yes (dysphagia) Gastrointestinal Disorders: Gastroesophageal Reflux Musculoskeletal History of Musculoskeletal Dis: Yes Musculoskeletal Disorders: Degenerate Disk Disease, Arthritis, Scoliosis Endocrine History of Endocrine Disorders: Yes Endocrine Disorders: Hypothyroidsim, Diabetes, Non-Insulin dep HEENT History of HEENT Disorders: Yes Loss of Vision: Bilateral Hearing Impairment: Denies Cancer History of Cancer: No Psychosocial History of Psychiatric Problem: Yes Behavioral Health Disorders: Anxiety, Depression Integumentary History of Skin or Integumenta: No Family Medical History Significant Family History: Heart Disease (Mother), Diabetes (Mother), Psychiatric Problems (Depresion, mother) Family Medial History: Colon cancer requiring screening colonoscopy Review of Systems-General Constitutional: No chills, No fever EENTM: No blurred vision, No double vision, No epistaxis Respiratory: No cough, No dyspnea on exertion Cardiovascular: No chest pain, No palpitations Gastrointestinal: No abdominal pain, No nausea, No vomiting Musculoskeletal: joint pain, muscle pain, other (Leg pain) Skin: lesions (Right great toe) Psychiatric/Neurological: Headache, Numbness Physical Exam-General Problems Physical Exam General Appearance: moderate distress (secondary to leg pain), obese Eyes: Bilateral Eye PERRL, Bilateral Eye EOMI HEENT: pharynx normal; No pale conjunctivae (R), No pale conjunctivae (L); ot her (poor dentition) Neck: non-tender, supple Respiratory: lungs clear, no respiratory distress, no accessory muscle use Cardiovascular: normal peripheral pulses, no murmur, tachycardia Gastrointestinal: non tender, soft, no organomegaly Extremities: calf tenderness (Tenderness of anterior hoffman. No obvious overlying deformity), other (Diabetic foot wound of medial aspect of right great toe. S/p debridement. Slightly ischemic tissue with purulence and erythema.) Neurologic/Psychiatric: alert, oriented x 3 Skin: normal color, warm/dry Lymphatic: no adenopathy (neck, axilla or groin) Assessment/Plan Assessment/Plan Assessment/Plan Diabetic foot wound Right great toe Elevated CRP Smaller ulcer on plantar aspect of left great toe Diabetes HTN HLD Leukocytosis Plain films do not show distinct evidence of ostemyelitis, however it is suspected based upon clinical picture. Plan for surgery tomorrow with amputation of right great toe Discussed with patient the option of MRI, outpatient IV abx, or amputation. Patient decided on proceeding with surgery tomorrow, Admit to medicine, NPO at midnight Discussed the procedure with pt and gave her options; go home with oral abx, a dmit and get IV ABX and MRI, admit and go to surgery for amputation. She and her significant other basically said "take it off", they don't believe it is going to get better. We discussed risks and complications not limited to pain, bleeding, infection, s car and need for further procedure. It will need to be left open and then packing changed daily. All questions answered to her satisfaction. Supervisory-Addendum Brief Verification & Attestation Participated in pt care: history, MDM, physical Personally performed: exam, history, MDM, supervision of care Care discussed with: Medical Student Procedures: n/a Verification and Attestation of Medical Student E/M Service A medical student performed and documented this service. I then reviewed and verified all information documented by the medical student and made modifications to such information, when appropriate. I personally performed a physical exam, medical decision making and then discussed any differences between the notes and made revisions as necessary to create one note. Yvonne Mallory , 04/20/22 , 16:27 YOEL RICHARDSON Apr 20, 2022 15:44 YVONNE MALLORY DO Apr 20, 2022 16:21
[2022-04-20] MEDS ORDERED: PIPERACILLIN SODIUM/TAZOBACTAM 4.5 GM in NS (IVPB) 100 ML IV ONE (15:45)
--- NOTE | 2022-04-20 16:12 | Diagnostic Imaging Report ---
EXAM: Chest 1 view, AP/PA only INDICATION: 40 pack year smoking history. COMPARISON: Low-dose lung screening chest CT 09/12/2021. FINDINGS: Low lung volumes accentuate the heart size. Normal central pulmonary vascularity. No focal pulmonary opacity. No pleural effusion or pneumothorax. No acute osseous finding. IMPRESSION: Low lung volumes. Chest is otherwise negative. Dictated by: Dictated on workstation # [id number]
--- NOTE | 2022-04-20 16:15 | Diagnostic Imaging Report ---
HISTORY: Pain in the right tibia and fibula. TECHNIQUE: Two views of the right tibia and fibula. COMPARISON: None. FINDINGS: No acute fracture or dislocation is seen in the right tibia and fibula. Alignment is normal. Joint spaces are preserved. IMPRESSION: 1. No acute osseous abnormality is seen in the right tibia and fibula. Dictated by: Dictated on workstation # [id number]
[2022-04-20 16:45] LABS: PROTHROMBIN TIME PATIENT 13.5 SEC (12.2-14.7)
[2022-04-20 16:55] VITALS: BP 119/72
[2022-04-20] MEDS ORDERED: diphenhydrAMINE 50 MG/ML INJ (BENADRYL) IVP PRN (17:00)
[2022-04-20] MEDS ORDERED: VANCOMYCIN INJECTION 0.1 MG in NS (IVPB) 250 ML IV SCH (17:00)
[2022-04-20] MEDS ORDERED: ONDANSETRON 4 MG (ZOFRAN) ORAL DISSOLVE TAB PO PRN (17:00)
[2022-04-20] MEDS ORDERED: MILK OF MAGNESIA 400 MG/5 ML 30 ML UDC PO PRN (17:00)
[2022-04-20] MEDS ORDERED: ANTACID SUSP 30 ML UDC (MYLANTA) PO PRN (17:00)
[2022-04-20] MEDS ORDERED: CALCIUM CARBONATE 500 MG (TUMS) TAB.CHEW PO PRN (17:00)
[2022-04-20] MEDS ORDERED: ONDANSETRON 4 MG/2 ML (SDV) Z0FRAN IV PRN (17:00)
[2022-04-20] MEDS ORDERED: diphenhydrAMINE 25 MG TAB (BENADRYL) PO PRN (17:00)
[2022-04-20] MEDS ORDERED: morphine INJ 4 MG/ML 1 ML (VIAL/SYRINGE) IV PRN (17:00)
[2022-04-20] MEDS ORDERED: BISACODYL 10 MG SUPP (DULCOLAX) PR PRN (17:00)
[2022-04-20] MEDS ORDERED: polyethylene glycoL POWDER 17 GM (MIRALAX) PACK PO PRN (17:00)
[2022-04-20] MEDS ORDERED: LACTULOSE SYRUP 10GM/15ML (ENULOSE) 30ML UDC PO PRN (17:00)
[2022-04-20] MEDS: NS IV 1000 ML 1,000 ML IV SCH (17:47)
[2022-04-20] MEDS: ENOXAPARIN 40 MG/0.4 ML (LOVENOX) SYR SC SCH (17:47)
[2022-04-20 18:00] VITALS: BP 119/72
[2022-04-20] MEDS ORDERED: VANCOMYCIN 1500 MG/NS 500 ML IVPB IV NR ×2 (18:00)
[2022-04-20] MEDS ORDERED: RT-ALBUTEROL SULF 2.5 MG/3 ML PRE-MIX VIAL INH PRN ×2 (18:15→20:45)
[2022-04-20 19:56] VITALS: BP 96/68
[2022-04-20] MEDS: inSUlin ASPART (NovoLOG) 1 UNIT/0.01 ML (CHARGE PER UNIT) SC SCH (20:11)
[2022-04-20] MEDS: SENNOSIDES 8.6 MG (SENOKOT) TAB PO SCH (20:17)
[2022-04-20] MEDS: DOCUSATE SODIUM 100 MG (COLACE) CAP PO SCH (20:17)
[2022-04-20] MEDS: MELATONIN 3 MG TABLET PO PRN (20:17)
[2022-04-20] MEDS ORDERED: METF-399 PO (20:24)
[2022-04-20] MEDS ORDERED: polyethylene glycoL Bowel Prep(MIRALAX) 238 GM PO PRN (20:45)
[2022-04-20] MEDS ORDERED: PROMETHAZINE 25 MG (PHENERGAN) TAB PO PRN (20:45)
[2022-04-20] MEDS ORDERED: NON-FORMULARY MEDICATION 1 EA EA (Duloxetine HCl 60 MG) PO SCH (21:00)
[2022-04-20] MEDS ORDERED: DULoxetine 30 MG (CYMBALTA) CAP PO SCH (21:00)
[2022-04-20 21:27] VITALS: BP 120/73
[2022-04-20] MEDS: AMITRIPTYLINE 25 MG (ELAVIL) TAB PO SCH (23:03)
[2022-04-20] MEDS: DULoxetine 30 MG (CYMBALTA) CAP PO SCH (23:03)
[2022-04-20] MEDS: PIPERACILLIN SODIUM/TAZOBACTAM 4.5 GM in NS (IVPB) 100 ML IV SCH (23:04)
[2022-04-20] MEDS: rOPINIRole 0.25 MG (REQUIP) TAB PO SCH (23:07)
[2022-04-21] VITALS (12 sets, daily range): BP systolic 104–145; BP diastolic 67–80
[2022-04-21] MEDS: NS IV 1000 ML 1,000 ML IV SCH ×3 (04:37→16:42)
[2022-04-21] MEDS: LEVOTHYROXINE 50 MCG (LEVOTHROID) TAB PO SCH (05:56)
[2022-04-21] MEDS: PANTOPRAZOLE 40 MG (PROTONIX) TAB PO SCH (05:56)
[2022-04-21] MEDS: MULTIVIT W/MINERALS TAB (THERAGRAN M) PO SCH (05:56)
[2022-04-21 05:59] LABS: BASOPHILS # (AUTO) 0.1 10^3/uL (0.0-0.1); BASOPHILS % (AUTO) 1 % (0-10); EOSINOPHILS # (AUTO) 0.2 10^3/uL (0.0-0.3); EOSINOPHILS % (AUTO) 2 % (0-10); HEMATOCRIT 33 % (35-52); HEMOGLOBIN 10.6 g/dL (11.5-16.0); LYMPHOCYTES # (AUTO) 4.6 10^3/uL (1.0-4.0); LYMPHOCYTES % (AUTO) 42 % (12-44); MEAN CORPUSCULAR HEMOGLOBIN 28 pg (25-34); MEAN CORPUSCULAR HGB CONC 32 g/dL (32-36); MEAN CORPUSCULAR VOLUME 88 fL (80-99); MEAN PLATELET VOLUME 8.7 fL (9.0-12.2); MONOCYTES # (AUTO) 0.9 10^3/uL (0.0-1.0); MONOCYTES % (AUTO) 8 % (0-12); NEUTROPHILS % (AUTO) 46 % (42-75); PLATELET COUNT 485 10^3/uL (130-400); WHITE BLOOD COUNT 10.9 10^3/uL (4.3-11.0)
[2022-04-21] MEDS: inSUlin ASPART (NovoLOG) 1 UNIT/0.01 ML (CHARGE PER UNIT) SC SCH ×4 (06:07→20:42)
[2022-04-21 06:28] LABS: ALBUMIN 2.9 GM/DL (3.2-4.5); BILIRUBIN,TOTAL 0.1 MG/DL (0.1-1.0); CALCIUM 8.6 MG/DL (8.5-10.1); CREATININE SERUM 0.81 MG/DL (0.60-1.30); POTASSIUM 4.2 MMOL/L (3.6-5.0); TOTAL PROTEIN 6.4 GM/DL (6.4-8.2)
[2022-04-21] MEDS: VANCOMYCIN 1 GM/NS 250 ML IVPB IV SCH ×4 (06:41→18:19)
[2022-04-21] MEDS: PIPERACILLIN SODIUM/TAZOBACTAM 4.5 GM in NS (IVPB) 100 ML IV SCH ×3 (06:42→23:04)
--- NOTE | 2022-04-21 07:06 | History & Physical-Hospitalist ---
History of Present Illness HPI/Chief Complaint CC: Right great toe amputation HPI: This is a 57yoF clinic patient of [facility] who presented to the ER with right toe drainage and pain and was placed on IV abx and is now s/p amputation by Dr Elam. Currently she is still sedated from anesthesia. Labs and meds reviewed. Source: RN/MD Exam Limitations: clinical condition (post op) Date Seen 04/21/22 Time Seen by a Provider: 10:30 Attending Physician Ana Farah MD PCP Admitting Physician: Aleja Sawyer DO Attending Physician: Aleja Sawyer DO Referring Physician Date of Admission Apr 20, 2022 at 15:37 Home Medications & Allergies Home Medications Reviewed patient Home Medication Reconciliation performed by pharmacy medication reconciliations durability technician and/or nursing. Patients Allergies have been reviewed. Allergies Allergies Coded Allergies No Known Drug Allergies (Unverified10/02/18) Past Zrfwjtv-Nwmdsz-Ptiekl Hx Patient Social History Marrital Status: single Employed/Student: unemployed Tobacco Use?: Yes Tobacco type used: Cigarettes Smoking Status: Current Everyday Smoker Use of E-Cig and/or Vaping dev: No Substance use?: No Alcohol Use?: No Pt feels they are or have been: No Immunizations Up To Date First/Initial COVID19 Vaccinat: 2020 Second COVID19 Vaccination Sergio: 2020 Tetanus Booster (TDap): Unknown Date of Pneumonia Vaccine: Sep 30, 2012 Seasonal Allergies Seasonal Allergies: No Current Status status: No status: No Advance Directives: Yes Advance Directive Location: Family to bring in copy Communicates: Verbally Primary Language: Anguillan Preferred Spoken Language: Anguillan Is interpretation needed?: No Sensory deficits: Vision impairment Implanted or Applied Medical D: Other Past Medical History Surgeries: Abdominal (Ventral hernia surgery x6), Adenoidectomy, Orthopedic, Tonsillectomy Pulmonary Embolism Currently Using CPAP: No Currently Using BIPAP: No High Cholesterol, Hypertension, Irregular Heartbeat, Peripheral Vascular Headaches /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 Sexually Transmitted Disease: No HIV/AIDS: No Gastroesophageal Reflux Degenerate Disk Disease, Arthritis, Scoliosis Hypothyroidsim, Diabetes, Non-Insulin dep Loss of Vision: Bilateral Hearing Impairment: Denies Anxiety, Depression Blood Disorders: No Adverse Reaction/Blood Tranf: No (N/A) Family Medical History Colon cancer requiring screening colonoscopy Heart Disease (Mother), Diabetes (Mother), Psychiatric Problems (Depresion, mother) Review of Systems Constitutional: see HPI Physical Exam Physical Exam Vital Signs Vital Signs - First Documented 04/20/22 04/20/22 04/21/22 12:56 18:00 11:22 Temp 36.2 Pulse 93 Resp 16 B/P (MAP) 140/54 (82) Pulse Ox 97 O2 Delivery Room Air O2 Flow Rate 10.00 FiO2 21 Capillary Refill : Less Than 3 Seconds Height, Weight, BMI Height: 5'0" Weight: 179lbs. 4.0oz. [id number]; 34.44 BMI Method:Stated General Appearance: No Apparent Distress, Chronically ill Eyes: Right Eye Normal Inspection, Right Eye PERRL HEENT: PERRL/EOMI, Normal ENT Inspection, Pharynx Normal, Moist Mucous Membranes Neck: Full Range of Motion, Normal Inspection, Non Tender Respiratory: Chest Non Tender, Lungs Clear, Normal Breath Sounds, No Accessory Muscle Use, No Respiratory Distress Cardiovascular: Regular Rate, Rhythm, No Edema, No Gallop, No JVD, No Murmur, Normal Peripheral Pulses Gastrointestinal: Normal Bowel Sounds, No Organomegaly, No Pulsatile Mass, Non Tender, Soft Back: Normal Inspection, No CVA Tenderness, No Vertebral Tenderness Extremity: Normal Capillary Refill, Normal Inspection, Normal Range of Motion, Non Tender, No Calf Tenderness, No Pedal Edema Neurologic/Psychiatric: Alert, Oriented x3, No Motor/Sensory Deficits, Normal Mood/Affect Skin: Normal Color, Warm/Dry Lymphatic: No Adenopathy Results Results/Procedures Labs Laboratory Tests 04/20/22 13:20 04/21/22 05:28 Patient resulted labs reviewed. Assessment/Plan Admission Diagnosis Assessment: s/p right great toe amputation HTN HLP DM Plan: IV abx Amputation successful Admission Status: Observation Diagnosis/Problems Diagnosis/Problems (1) Diabetic foot ulcer Status: Acute Qualifiers: Diabetic foot ulcer location: toe Diabetes mellitus type: type 2 Laterality: right Non-pressure ulcer stage: unspecified non-pressure ulcer stage Qualified Codes: E11.621 - Type 2 diabetes mellitus with foot ulcer; L97.519 - Non-pressure chronic ulcer of other part of right foot with unspecified severity (2) Cellulitis Status: Acute Qualifiers: Site of cellulitis: extremity Site of cellulitis of extremity: toe Laterality: right Qualified Codes: L03.031 - Cellulitis of right toe (3) Foot ulcer due to secondary DM Clinical Quality Measures DVT/VTE Risk/Contraindication: Contraindications-Mechi: Other *list below* Other: not on right foot due to infection ALEJA SAWYER DO Apr 21, 2022 07:06
[2022-04-21] MEDS: SENNOSIDES 8.6 MG (SENOKOT) TAB PO SCH ×3 (08:09→20:38)
[2022-04-21] MEDS: DOCUSATE SODIUM 100 MG (COLACE) CAP PO SCH ×3 (08:09→20:38)
[2022-04-21] MEDS: metFORMIN 500 MG (GLUCOPHAGE) TAB PO SCH ×2 (08:09→08:39)
[2022-04-21] MEDS: LOSARTAN 25 MG (COZAAR) TAB PO SCH ×2 (08:09→12:38)
[2022-04-21] MEDS: buPROPion SR 150 MG (WELLBUTRIN SR) TAB PO SCH ×2 (08:09→08:40)
[2022-04-21] MEDS: KCL 10 MEQ TAB (MICRO K) PO SCH ×3 (08:09→17:09)
--- NOTE | 2022-04-21 08:18 | Progress Note - Surgery ---
YOEL RICHARDSON 04/21/22 0818: Subjective Date Seen by a Provider: Apr 21, 2022 Time Seen by a Provider: 07:19 Subjective/Events-last exam Ms. Yeager is being followed for possible osteomyelitis of her right great toe. This morning she reports she has a bad headache but says that her leg pain has been improving since yesterday. She has no concerns this morning and reports she is ready for surgery. Plain films of her right lower extremity show no acute changes to her tibia or fibula. Review of Systems General: No Chills, No Fatigue HEENT: Head Aches; No Visual Changes Pulmonary: No Dyspnea, No Cough Cardiovascular: No: Chest Pain, Palpitations Gastrointestinal: No: Nausea, Vomiting Neurological: No: Weakness, Confusion Focused Exam Lactate Level 04/20/22 13:26: Lactic Acid Level 2.28*H 04/20/22 17:00: Lactic Acid Level 2.28*H 04/20/22 19:17: Lactic Acid Level 1.80 Objective Exam Vital Signs Date Time Temp Pulse Resp B/P (MAP) Pulse Ox O2 Delivery O2 Flow Rate FiO2 04/21/22 07:53 Room Air 04/21/22 07:51 36.0 71 18 118/80 (93) 96 Room Air 04/21/22 04:05 36.1 71 16 104/68 (80) 98 Room Air 04/21/22 00:14 36.0 80 16 104/68 (80) 98 Room Air 04/20/22 21:27 90 20 120/73 (89) 97 Room Air 04/20/22 20:20 98 Room Air 04/20/22 19:56 36.3 78 20 96/68 (77) 97 Room Air 04/20/22 18:00 36.4 81 97 21 04/20/22 16:55 36.4 81 18 119/72 (88) 95 Room Air 04/20/22 16:36 36.2 93 15 140/54 99 Room Air 04/20/22 12:56 36.2 93 16 140/54 (82) 97 Room Air I & O 04/21/22 07:00 Intake Total 580 ml Output Total 300 ml Balance 280 ml Capillary Refill : Less Than 3 Seconds General Appearance: No Apparent Distress, Obese HEENT: PERRL/EOMI, Moist Mucous Membranes Neck: Non Tender, Supple Respiratory: Chest Non Tender, Lungs Clear, Normal Breath Sounds, No Accessory Muscle Use, No Respiratory Distress Cardiovascular: Regular Rate, Rhythm, Normal Peripheral Pulses Peripheral Pulses: 2+ Radial Pulses (R), 2+ Radial Pulses (L) Gastrointestinal: non tender, soft Extremity: Pedal Edema, Other (Wound of medial aspect of right great toe s/p debridement. Slight ischemia of the area with purulence and erythema.) Neurologic/Psychiatric: Alert, Oriented x3 Skin: Normal Color, Warm/Dry Results Lab Laboratory Tests 04/20/22 13:20: White Blood Count 13.5H, Red Blood Count 4.22, Hemoglobin 11.8, Hematocrit 37, Mean Corpuscular Volume 87, Mean Corpuscular Hemoglobin 28, Mean Corpuscular Hemoglobin Concent 32, Red Cell Distribution Width 16.6H, Platelet Count 572H, Mean Platelet Volume 8.8L, Immature Granulocyte % (Auto) 1, Neutrophils (%) (Auto) 64, Lymphocytes (%) (Auto) 28, Monocytes (%) (Auto) 6, Eosinophils (%) (Auto) 1, Basophils (%) (Auto) 1, Neutrophils # (Auto) 8.6H, Lymphocytes # (Auto) 3.8, Monocytes # (Auto) 0.8, Eosinophils # (Auto) 0.2, Basophils # (Auto) 0.1, Immature Granulocyte # (Auto) 0.1, Sodium Level 140, Potassium Level 4.1, Chloride Level 105, Carbon Dioxide Level 20L, Anion Gap 15H, Blood Urea Nitrogen 7, Creatinine 0.77, Estimat Glomerular Filtration Rate 90, BUN/Creatinine Ratio 9, Glucose Level 111H, Calcium Level 9.3, Corrected Calcium 9.7, Total Bilirubin 0.3, Aspartate Amino Transf (AST/SGOT) 24, Alanine Aminotransferase (ALT/SGPT) 19, Alkaline Phosphatase 96, C-Reactive Protein High Sensitivity 2.51H, Total Protein 7.7, Albumin 3.5 04/20/22 13:26: Prothrombin Time 13.5, INR Comment 1.0, Activated Partial Thromboplast Time 33, Lactic Acid Level 2.28*H 04/20/22 17:00: Lactic Acid Level 2.28*H 04/20/22 19:17: Lactic Acid Level 1.80 04/20/22 20:02: Glucometer 130H 04/21/22 05:10: Glucometer 99 04/21/22 05:28: White Blood Count 10.9, Red Blood Count 3.78L, Hemoglobin 10.6L, Hematocrit 33L, Mean Corpuscular Volume 88, Mean Corpuscular Hemoglobin 28, Mean Corpuscular Hemoglobin Concent 32, Red Cell Distribution Width 16.9H, Platelet Count 485H, Mean Platelet Volume 8.7L, Immature Granulocyte % (Auto) 1, Neutrophils (%) (Auto) 46, Lymphocytes (%) (Auto) 42, Monocytes (%) (Auto) 8, Eosinophils (%) (Auto) 2, Basophils (%) (Auto) 1, Neutrophils # (Auto) 5.0, Lymphocytes # (Auto) 4.6H, Monocytes # (Auto) 0.9, Eosinophils # (Auto) 0.2, Basophils # (Auto) 0.1, Immature Granulocyte # (Auto) 0.1, Sodium Level 142, Potassium Level 4.2, Chloride Level 111H, Carbon Dioxide Level 19L, Anion Gap 12, Blood Urea Nitrogen 10, Creatinine 0.81, Estimat Glomerular Filtration Rate 85, BUN/Creatinine Ratio 12, Glucose Level 108H, Calcium Level 8.6, Corrected Calcium 9.5, Total Bilirubin 0.1, Aspartate Amino Transf (AST/SGOT) 22, Alanine Aminotransferase (ALT/SGPT) 17, Alkaline Phosphatase 87, Total Protein 6.4, Albumin 2.9L Assessment/Plan Assessment/Plan Assessment/Plan Diabetic foot wound Right great toe Elevated CRP Smaller ulcer on plantar aspect of left great toe Diabetes HTN HLD Leukocytosis Thrombocytosis Plain films do not show distinct evidence of ostemyelitis, however it is suspected based upon clinical picture. Plan for surgery today with amputation of right great toe Patient has been NPO at midnight Plan to keep site open and pack daily Clinical Quality Measures DVT/VTE Risk/Contraindication: Contraindications-Mechi: Other *list below* Other: not on right foot due to infection NASIR ELAM DO 04/21/22 1007: Subjective Time Seen by a Provider: 09:14 Subjective/Events-last exam Pt seen and examined, denies any changes. States she has no questions about surgery, but her sister does. Review of Systems General: No Chills HEENT: Head Aches; No Visual Changes Pulmonary: No Dyspnea, No Cough Cardiovascular: No: Chest Pain, Palpitations Gastrointestinal: No: Nausea, Vomiting Objective Exam General Appearance: No Apparent Distress, Obese HEENT: PERRL/EOMI, Moist Mucous Membranes Respiratory: Lungs Clear, Normal Breath Sounds, No Accessory Muscle Use, No Respiratory Distress Cardiovascular: Regular Rate, Rhythm, No Murmur Gastrointestinal: non tender, soft Extremity: Pedal Edema, Other (Wound of medial aspect of right great toe s/p debridement. Slight ischemia of the area with purulence and erythema.) Assessment/Plan Assessment/Plan Assessment/Plan Diabetic foot wound Right great toe Elevated CRP Smaller ulcer on plantar aspect of left great toe Diabetes HTN HLD Leukocytosis Thrombocytosis Plain films do not show distinct evidence of ostemyelitis, however it is suspected based upon clinical picture. Plan for surgery today with amputation of right great toe Patient has been NPO at midnight Plan to keep site open and pack daily Supervisory-Addendum Brief Verification & Attestation Participated in pt care: history, MDM, physical Personally performed: exam, history, MDM, supervision of care Care discussed with: Medical Student Procedures: n/a Verification and Attestation of Medical Student E/M Service A medical student performed and documented this service. I then reviewed and verified all information documented by the medical student and made modifications to such information, when appropriate. I personally performed a p hysical exam, medical decision making and then discussed any differences between the notes and made revisions as necessary to create one note. Nasir Elam , 04/21/22 , 10:07 YOEL RICHARDSON Apr 21, 2022 08:18 NASIR ELAM DO Apr 21, 2022 10:07
[2022-04-21] MEDS ORDERED: LIDOCAINE/EPI 2% 1:200,00 (XYLOCAINE) 20 ML VIAL ONE (08:47)
[2022-04-21] MEDS ORDERED: proPOfol 200 MG/20 ML (DIPRIVAN) VIAL IV ONE (10:19)
[2022-04-21] MEDS ORDERED: BUPIVACAINE 0.25% 10 ML (SENSORCAINE) VIAL ONE (10:19)
[2022-04-21] MEDS ORDERED: LIDOCAINE PF 2% 5 ML (XYLOCAINE) VIAL ONE (10:19)
[2022-04-21] MEDS ORDERED: ONDANSETRON 4 MG/2 ML (SDV) Z0FRAN ONE (10:19)
[2022-04-21] MEDS ORDERED: MIDAZOLAM 2 MG/2 ML (VERSED) VIAL ONE (10:20)
[2022-04-21] MEDS ORDERED: fentaNYL INJ 100 MCG/2 ML AMP ONE (10:20)
--- NOTE | 2022-04-21 11:11 | Progress Note-Post Operative ---
Post-Operative Progess Note Surgeon (s)/Head Chopper (s) Surgeon YVONNE MALLORY DO Head Chopper: SANDI Kraft Pre-Operative Diagnosis Right 1st toe probable Osteomyelitis Post-Operative Diagnosis same pending path Procedure & Operative Findings Date of Procedure 04/21/22 Procedure Performed/Findings Amputation of right 1st toe at MIP joint Anesthesia Type IV sedation and local block Estimated Blood Loss Estimated blood loss (mL): scant Specimens/Packing Specimens Removed right 1st toe YVONNE MALLORY DO Apr 21, 2022 11:11
--- NOTE | 2022-04-21 11:29 | Anesthesia-General Post-Op ---
MAC Patient Condition Mental Status/LOC: Same as Preop Cardiovascular: Satisfactory Nausea/Vomiting: Absent Respiratory: Satisfactory Pain: Controlled Complications: Absent Post Op Complications Complications None Follow Up Care/Instructions Patient Instructions None needed. Anesthesiology Discharge Order Discharge Order Patient is doing well, no complaints, stable vital signs, no apparent adverse anesthesia problems. No complications reported per nursing. MIYA ABRAHAM CRNA Apr 21, 2022 11:29
[2022-04-21] MEDS ORDERED: morphine INJ 10 MG/ML 1ML (SYR OR VIAL) IVP ONE (11:30)
[2022-04-21] MEDS ORDERED: ONDANSETRON 4 MG/2 ML (SDV) Z0FRAN IVP PRN (11:30)
[2022-04-21] MEDS ORDERED: SEVOFLURANE (ULTANE) 15 ML INHAL SOLN ONE (11:35)
[2022-04-21] MEDS: ACETAMINOPHEN 325 MG TABLET PO PRN ×2 (12:40→17:11)
[2022-04-21] MEDS: ENOXAPARIN 40 MG/0.4 ML (LOVENOX) SYR SC SCH (16:41)
--- NOTE | 2022-04-21 17:55 | OPERATIVE REPORT ---
DATE OF SERVICE: 04/21/2022 PREOPERATIVE DIAGNOSIS: Right first toe with exposed bone, possible osteomyelitis. POSTOPERATIVE DIAGNOSIS: Right first toe with exposed bone, possible osteomyelitis, pending pathology. PROCEDURE: Amputation of right first toe at the MIP joint. SURGEON: Nasir Mallory DO [employer] ATTENDANT: JADE Rosario. ANESTHESIA: IV sedation with a local block. BLOOD LOSS: Scant. FLUIDS: Per anesthesia. POSTOPERATIVE CONDITION: Stable. INDICATION FOR PROCEDURE: The patient is a 57-year-old female who has been having some local wound care and debridement done. It appears now to have exposed bone and possible osteomyelitis needs to get this amputated. FINDINGS: The patient had a right first toe amputated. It was very fragile, the bone even broke as I was just trying to hold it. PROCEDURE NOTE: After informed consent was obtained, the patient was brought to the operating room, placed on the operating table in supine position. She was sterilely prepped and draped in normal fashion. Timeout was performed. Site had been marked and everyone agreed. Right first toe had been blocked by anesthesia, then started making an incision with a Bovie electrocautery down around the base of the first toe going down through the skin into subcutaneous tissue, deepening down to the bone while trying to hold the toe, move it laterally, medially up and down the toe itself. The tissue popped right off the bone, then while we trying to grasp the bone with a towel clamp, it broke in half. It was very friable bone. This most likely has osteomyelitis. Finally, able to get down around, dissecting through the tissue, muscle and ligament to get down to the metatarsal interphalangeal joint, taking the toe off right there. Control hemostasis with Bovie electrocautery. Copiously irrigated with normal saline and then packed with quarter-inch iodoform as well as a Kerlix and Magdy wrap and the patient was then transferred to recovery room in stable condition. Sponge, instrument and needle count correct at the end of the case. Job ID: [id number] DocumentID: [id number] Dictated Date: 04/21/2022 14:03:14 Nuclear Medicine Officer Date: 04/21/2022 17:54:23 Dictated By: NASIR MALLORY DO MTDD
[2022-04-21] MEDS: AMITRIPTYLINE 25 MG (ELAVIL) TAB PO SCH (20:37)
[2022-04-21] MEDS: DULoxetine 30 MG (CYMBALTA) CAP PO SCH (20:37)
[2022-04-21] MEDS: rOPINIRole 0.25 MG (REQUIP) TAB PO SCH (20:41)
[2022-04-21] MEDS ORDERED: metFORMIN 500 MG (GLUCOPHAGE) TAB PO SCH (21:00)
[2022-04-21] MEDS: MELATONIN 3 MG TABLET PO PRN (23:46)
[2022-04-22 00:14] VITALS: BP 118/75
[2022-04-22] MEDS: NS IV 1000 ML 1,000 ML IV SCH ×2 (01:48→09:25)
[2022-04-22 03:45] VITALS: BP 107/69
[2022-04-22] MEDS ORDERED: TROUGH ORDER-PHARMACY XX NR (06:00)
[2022-04-22] MEDS: inSUlin ASPART (NovoLOG) 1 UNIT/0.01 ML (CHARGE PER UNIT) SC SCH ×2 (06:26→11:27)
[2022-04-22] MEDS: PIPERACILLIN SODIUM/TAZOBACTAM 4.5 GM in NS (IVPB) 100 ML IV SCH (06:28)
[2022-04-22] MEDS: LEVOTHYROXINE 50 MCG (LEVOTHROID) TAB PO SCH (06:28)
[2022-04-22] MEDS: PANTOPRAZOLE 40 MG (PROTONIX) TAB PO SCH (06:28)
[2022-04-22] MEDS: MULTIVIT W/MINERALS TAB (THERAGRAN M) PO SCH (06:28)
[2022-04-22 06:30] LABS: BASOPHILS # (AUTO) 0.1 10^3/uL (0.0-0.1); BASOPHILS % (AUTO) 1 % (0-10); EOSINOPHILS # (AUTO) 0.2 10^3/uL (0.0-0.3); EOSINOPHILS % (AUTO) 2 % (0-10); HEMATOCRIT 32 % (35-52); HEMOGLOBIN 9.9 g/dL (11.5-16.0); LYMPHOCYTES % (AUTO) 24 % (12-44); MEAN CORPUSCULAR HEMOGLOBIN 28 pg (25-34); MEAN CORPUSCULAR HGB CONC 31 g/dL (32-36); MEAN CORPUSCULAR VOLUME 89 fL (80-99); MEAN PLATELET VOLUME 8.5 fL (9.0-12.2); MONOCYTES # (AUTO) 0.7 10^3/uL (0.0-1.0); MONOCYTES % (AUTO) 6 % (0-12); NEUTROPHILS # (AUTO) 8.6 10^3/uL (1.8-7.8); NEUTROPHILS % (AUTO) 67 % (42-75); PLATELET COUNT 439 10^3/uL (130-400); WHITE BLOOD COUNT 12.8 10^3/uL (4.3-11.0)
[2022-04-22 06:40] LABS: ALBUMIN 2.8 GM/DL (3.2-4.5)
[2022-04-22 06:41] LABS: POTASSIUM 4.5 MMOL/L (3.6-5.0)
[2022-04-22 06:42] LABS: CALCIUM 8.3 MG/DL (8.5-10.1)
[2022-04-22 06:43] LABS: TOTAL PROTEIN 5.9 GM/DL (6.4-8.2)
[2022-04-22 06:45] LABS: BILIRUBIN,TOTAL 0.2 MG/DL (0.1-1.0)
[2022-04-22 06:47] LABS: CREATININE SERUM 0.75 MG/DL (0.60-1.30)
[2022-04-22 06:56] LABS: VANCOMYCIN,TROUGH 14.2 UG/ML (10.0-20.0)
--- NOTE | 2022-04-22 07:04 | Progress Note - Hospitalist ---
Subjective HPI/CC On Admission Date Seen by Provider: Apr 22, 2022 Time Seen by Provider: 10:30 CC: Right great toe amputation HPI: This is a 57yoF clinic patient of [facility] who presented to the ER with right toe drainage and pain and was placed on IV abx and is now s/p amputation by Dr Elam. Currently she is still sedated from anesthesia. Labs and meds reviewed. Focused Exam Lactate Level 04/20/22 13:26: Lactic Acid Level 2.28*H 04/20/22 17:00: Lactic Acid Level 2.28*H 04/20/22 19:17: Lactic Acid Level 1.80 Objective Exam Vital Signs Vital Signs Date Time Temp Pulse Resp B/P (MAP) Pulse Ox O2 Delivery O2 Flow Rate FiO2 04/22/22 13:28 36.5 88 18 147/82 95 Room Air 0.00 04/20/22 18:00 21 Capillary Refill : Less Than 3 Seconds Results/Procedures Lab Laboratory Tests 04/22/22 06:23 Patient resulted labs reviewed. Diagnosis/Problems Diagnosis/Problems (1) Diabetic foot ulcer Status: Acute Qualifiers: Diabetic foot ulcer location: toe Diabetes mellitus type: type 2 Laterality: right Non-pressure ulcer stage: unspecified non-pressure ulcer stage Qualified Codes: E11.621 - Type 2 diabetes mellitus with foot ulcer; L97.519 - Non-pressure chronic ulcer of other part of right foot with unspecified severity (2) Cellulitis Status: Acute Qualifiers: Site of cellulitis: extremity Site of cellulitis of extremity: toe Laterality: right Qualified Codes: L03.031 - Cellulitis of right toe (3) Foot ulcer due to secondary DM Clinical Quality Measures DVT/VTE Risk/Contraindication: Contraindications-Mechi: Other *list below* Other: not on right foot due to infection WAYNE SUNSHINE DO Apr 22, 2022 07:04
[2022-04-22] MEDS: VANCOMYCIN 1 GM/NS 250 ML IVPB IV SCH ×2 (07:30)
[2022-04-22 07:46] VITALS: BP 127/81
[2022-04-22] MEDS: SENNOSIDES 8.6 MG (SENOKOT) TAB PO SCH (08:14)
[2022-04-22] MEDS: buPROPion SR 150 MG (WELLBUTRIN SR) TAB PO SCH (08:14)
[2022-04-22] MEDS: KCL 10 MEQ TAB (MICRO K) PO SCH (08:14)
[2022-04-22] MEDS: DOCUSATE SODIUM 100 MG (COLACE) CAP PO SCH (08:14)
[2022-04-22] MEDS: LOSARTAN 25 MG (COZAAR) TAB PO SCH (08:14)
[2022-04-22] MEDS: metFORMIN 500 MG (GLUCOPHAGE) TAB PO SCH (08:14)
--- NOTE | 2022-04-22 11:14 | Progress Note - Surgery ---
YOEL RICHARDSON 04/22/22 1114: Subjective Date Seen by a Provider: Apr 22, 2022 Time Seen by a Provider: 10:16 Subjective/Events-last exam Ms. Yeager is 1 day s/p amputation of her right great toe due to a diabetic ulcer and suspected osteomyelitis. This morning she reports that she feels well and that she is ready to go home. She denies any pain in her foot but says she still has lingering pain in her right anterior hoffman. She reports she follows with Dr. Farah for primary care and has an appointment with a pain specialist this week to address the hoffman pain. Her pain is controlled on oral pain medicine. She has no other concerns at this time. Review of Systems General: No Chills, No Fatigue HEENT: No Head Aches, No Visual Changes Pulmonary: No Dyspnea, No Cough Cardiovascular: No: Chest Pain, Palpitations Gastrointestinal: No: Nausea, Vomiting Musculoskeletal: leg pain; No: foot pain Focused Exam Lactate Level 04/20/22 13:26: Lactic Acid Level 2.28*H 04/20/22 17:00: Lactic Acid Level 2.28*H 04/20/22 19:17: Lactic Acid Level 1.80 Objective Exam Vital Signs Date Time Temp Pulse Resp B/P (MAP) Pulse Ox O2 Delivery O2 Flow Rate FiO2 04/22/22 08:10 94 Room Air 0.00 04/22/22 07:46 36.7 80 17 127/81 (96) 94 Room Air 04/22/22 03:45 35.8 71 18 107/69 (82) 95 Room Air 04/22/22 00:14 36.6 76 18 118/75 (89) 98 Room Air 04/21/22 21:30 Room Air 04/21/22 19:46 36.8 80 17 124/71 (88) 96 Room Air 04/21/22 15:26 36.5 77 21 129/75 (93) 98 Room Air 04/21/22 12:35 36.7 78 18 113/67 (82) 97 Room Air 04/21/22 12:15 Nasal Cannula 2.00 04/21/22 12:08 36.5 14 136/70 (92) 98 Nasal Cannula 2.00 04/21/22 12:00 18 129/72 (91) 96 Nasal Cannula 2.00 04/21/22 11:50 24 145/71 (95) 99 OxyMask 10.00 04/21/22 11:46 OxyMask 10.00 04/21/22 11:40 22 140/72 (94) 99 OxyMask 10.00 04/21/22 11:30 17 120/79 (93) 99 OxyMask 10.00 04/21/22 11:22 OxyMask 10.00 04/21/22 11:22 36.6 18 115/71 (86) 97 OxyMask 10.00 I & O 04/22/22 07:00 Intake Total 2510 ml Output Total 1000 ml Balance 1510 ml Capillary Refill : Less Than 3 Seconds General Appearance: No Apparent Distress, Obese HEENT: PERRL/EOMI, Moist Mucous Membranes Neck: Non Tender, Supple Respiratory: Chest Non Tender, Lungs Clear, Normal Breath Sounds, No Accessory Muscle Use, No Respiratory Distress Cardiovascular: Regular Rate, Rhythm, No Edema, Normal Peripheral Pulses Peripheral Pulses: 2+ Radial Pulses (R), 2+ Radial Pulses (L) Gastrointestinal: non tender, soft Extremity: Calf Tenderness (Tenderness to anterior hoffman), Other (Dressing in place on right great toe. Gauze wrapped in coban) Neurologic/Psychiatric: Alert, Oriented x3, Normal Mood/Affect Skin: Normal Color, Warm/Dry Results Lab Laboratory Tests 04/21/22 12:18: Glucometer 109 04/21/22 15:08: Glucometer 120H 04/21/22 20:41: Glucometer 110 04/22/22 05:49: Glucometer 88 04/22/22 06:23: White Blood Count 12.8H, Red Blood Count 3.56L, Hemoglobin 9.9L, Hematocrit 32L, Mean Corpuscular Volume 89, Mean Corpuscular Hemoglobin 28, Mean Corpuscular Hemoglobin Concent 31L, Red Cell Distribution Width 16.9H, Platelet Count 439H, Mean Platelet Volume 8.5L, Immature Granulocyte % (Auto) 1, Neutrophils (%) (Auto) 67, Lymphocytes (%) (Auto) 24, Monocytes (%) (Auto) 6, Eosinophils (%) (Auto) 2, Basophils (%) (Auto) 1, Neutrophils # (Auto) 8.6H, Lymphocytes # (Auto) 3.0, Monocytes # (Auto) 0.7, Eosinophils # (Auto) 0.2, Basophils # (Auto) 0.1, Immature Granulocyte # (Auto) 0.1, Sodium Level 143, Potassium Level 4.5, Chloride Level 113H, Carbon Dioxide Level 19L, Anion Gap 11, Blood Urea Nitrogen 9, Creatinine 0.75, Estimat Glomerular Filtration Rate 93, BUN/Creatinine Ratio 12, Glucose Level 90, Calcium Level 8.3L, Corrected Calcium 9.3, Total Bilirubin 0.2, Aspartate Amino Transf (AST/SGOT) 22, Alanine Aminotransferase (ALT/SGPT) 16, Alkaline Phosphatase 73, Total Protein 5.9L, Albumin 2.8L, Vancomycin Level Trough 14.2 Microbiology 04/20/22 MRSA Screen - Final, Complete MRSA not isolated 04/20/22 Blood Culture - Preliminary, Resulted No growth Assessment/Plan Assessment/Plan Assessment/Plan Diabetic foot wound Right great toe Elevated CRP Smaller ulcer on plantar aspect of left great toe Diabetes HTN HLD Leukocytosis Minor elevation post-op On abx Thrombocytosis 1 day s/p amputation of left great toe Pain controlled, consider d/c today with outpatient follow-up in 1-2 weeks Encourage daily wound care and packing D/c on oral antibiotics Clinical Quality Measures DVT/VTE Risk/Contraindication: Contraindications-Mechi: Other *list below* Other: not on right foot due to infection NASIR MALLORY DO 04/22/22 1325: Subjective Time Seen by a Provider: 12:03 Subjective/Events-last exam Pt seen and examined, no new complaints and states she is ready to go home. Review of Systems General: No Chills Pulmonary: No Dyspnea, No Cough Cardiovascular: No: Chest Pain, Palpitations Gastrointestinal: No: Nausea, Vomiting Musculoskeletal: leg pain; No: foot pain Objective Exam General Appearance: No Apparent Distress, Obese HEENT: Moist Mucous Membranes Respiratory: Lungs Clear, Normal Breath Sounds, No Accessory Muscle Use, No Respiratory Distress Cardiovascular: Regular Rate, Rhythm, No Murmur Extremity: Calf Tenderness (Tenderness to anterior hoffman), Other (Dressing taken down with nurse, looks good. No bleeding, no necrotic tissue) Neurologic/Psychiatric: Alert, Oriented x3 Assessment/Plan Assessment/Plan Assessment/Plan S/P Amputation of Right great toe Smaller ulcer on plantar aspect of left great toe Diabetes HTN HLD Leukocytosis Minor elevation post-op On abx Thrombocytosis Pain controlled, plam d/c today with outpatient follow-up in 1-2 weeks Encourage daily wound care and packing, D/c home told to finish off already prescribed oral antibiotics Supervisory-Addendum Brief Verification & Attestation Participated in pt care: history, MDM, physical Personally performed: exam, history, MDM, supervision of care Care discussed with: Medical Student Procedures: n/a Verification and Attestation of Medical Student E/M Service A medical student performed and documented this service. I then reviewed and verified all information documented by the medical student and made modifications to such information, when appropriate. I personally performed a physical exam, medical decision making and then discussed any differences between the notes and made revisions as necessary to create one note. Nasir Mallory , 04/22/22 , 13:24 YOEL RICHARDSON Apr 22, 2022 11:14 NASIR MALLORY DO Apr 22, 2022 13:25
[2022-04-22 11:47] VITALS: BP 128/79
[2022-04-22] MEDS ORDERED: ACHD5005 PO (12:32)
[2022-04-22] MEDS ORDERED: AMOX1TAB12 PO (12:32)
--- NOTE | 2022-04-22 12:33 | Discharge Summary ---
Discharge Summary Hospital Course Was the Problem List Reviewed?: Yes Problems/Dx: (1) Diabetic foot ulcer Status: Acute Qualifiers: Qualified Codes: E11.621 - Type 2 diabetes mellitus with foot ulcer; L97.519 - Non-pressure chronic ulcer of other part of right foot with unspecified severity (2) Cellulitis Status: Acute Qualifiers: Qualified Codes: L03.031 - Cellulitis of right toe (3) Foot ulcer due to secondary DM Hospital Course Date of Admission: Apr 20, 2022 at 15:37 Admission Diagnosis : Family Physician/Provider: Ana Farah MD Date of Discharge: 04/22/22 Discharge Diagnosis: S/P Amputation of Right great toe Smaller ulcer on plantar aspect of left great toe Diabetes HTN HLD Leukocytosis Minor elevation post-op On abx Thrombocytosis Hospital Course: Short course after admitted patient for right great toe amputation due to osteomyelitis. Home meds continued and had no complications so she was DC in improved condition. Labs and Pending Lab Test: Laboratory Tests 04/21/22 15:08: Glucometer 120H 04/21/22 20:41: Glucometer 110 04/22/22 05:49: Glucometer 88 04/22/22 06:23: White Blood Count 12.8H, Red Blood Count 3.56L, Hemoglobin 9.9L, Hematocrit 32L, Mean Corpuscular Volume 89, Mean Corpuscular Hemoglobin 28, Mean Corpuscular Hemoglobin Concent 31L, Red Cell Distribution Width 16.9H, Platelet Count 439H, Mean Platelet Volume 8.5L, Immature Granulocyte % (Auto) 1, Neutrophils (%) (Auto) 67, Lymphocytes (%) (Auto) 24, Monocytes (%) (Auto) 6, Eosinophils (%) (Auto) 2, Basophils (%) (Auto) 1, Neutrophils # (Auto) 8.6H, Lymphocytes # (Auto) 3.0, Monocytes # (Auto) 0.7, Eosinophils # (Auto) 0.2, Basophils # (Auto) 0.1, Immature Granulocyte # (Auto) 0.1, Sodium Level 143, Potassium Level 4.5, Chloride Level 113H, Carbon Dioxide Level 19L, Anion Gap 11, Blood Urea Nitrogen 9, Creatinine 0.75, Estimat Glomerular Filtration Rate 93, BUN/Creatinine Ratio 12, Glucose Level 90, Calcium Level 8.3L, Corrected Calcium 9.3, Total Bilirubin 0.2, Aspartate Amino Transf (AST/SGOT) 22, Alanine Aminotransferase (ALT/SGPT) 16, Alkaline Phosphatase 73, Total Protein 5.9L, Albumin 2.8L, Vancomycin Level Trough 14.2 04/22/22 11:18: Glucometer 124H Microbiology 04/20/22 MRSA Screen - Final, Complete MRSA not isolated 04/20/22 Blood Culture - Preliminary, Resulted No growth Home Meds Active Amox Tr-K Clv 875-125 mg Tab (Amoxicillin/Potassium Clav) 875 Mg-125 Mg Tablet 1 Each PO BID Protonix (Pantoprazole Sodium) 40 Mg Tablet.dr 40 Mg PO DAILY Reported Metformin HCl 1,000 Mg Tablet 1,000 Mg PO HS Ventolin Hfa (Albuterol Sulfate) 1 Puff Puff 2 Puff INH Q4H PRN 1 PUFF = 90 MCG Miralax (Polyethylene Glycol 3350) 119 Gm Powder 17 Gm PO DAILY PRN Atorvastatin Calcium 40 Mg Tablet 40 Mg PO HS Ropinirole HCl 0.25 Mg Tablet 0.25 Mg PO HS Women's 50 Plus Multivit Tab (Mv-Mn/Folic Acid/Calcium/Vit K) 1 Each Tablet 1 Each PO DAILY Tizanidine HCl 4 Mg Tablet 4 Mg PO TID PRN Bupropion HCl Sr (Bupropion HCl) 150 Mg Tablet.er 150 Mg PO DAILY Olmesartan Medoxomil 5 Mg Tablet 5 Mg PO DAILY Amitriptyline HCl 25 Mg Tablet 25 Mg PO HS Duloxetine HCl 30 Mg Capsule.dr 30 Mg PO HS Duloxetine HCl 60 Mg Capsule.dr 60 Mg PO HS Promethazine Tablet (Promethazine HCl) 25 Mg Tablet 25 Mg PO Q6H PRN Potassium Chloride 10 Meq Capsule.er 10 Meq PO BID Levothyroxine Sodium 50 Mcg Tablet 50 Mcg PO DAILY Metformin HCl 500 Mg Tablet 500 Mg PO DAILY Assessment/Pt Instructions PCP 1 week Discharge Planning: <30 minutes discharge planning Discharge Instructions Discharge Diet: No Restrictions Discharge Physical Examination Vital Signs Vital Signs Date Time Temp Pulse Resp B/P (MAP) Pulse Ox O2 Delivery O2 Flow Rate FiO2 04/22/22 11:47 36.4 75 17 128/79 (95) 94 Room Air 04/22/22 08:10 0.00 04/20/22 18:00 21 General Appearance: No Apparent Distress, WD/WN, Chronically ill Allergies: Coded Allergies: No Known Drug Allergies (Unverified , 10/02/18) Discharge Summary Date of Admission Apr 20, 2022 at 15:37 Date of Discharge Discharge Date: Apr 22, 2022 Admission Diagnosis Assessment: s/p right great toe amputation HTN HLP DM Plan: IV abx Amputation successful Discharge Diagnosis (1) Diabetic foot ulcer Status: Acute Qualifiers: Qualified Codes: E11.621 - Type 2 diabetes mellitus with foot ulcer; L97.519 - Non-pressure chronic ulcer of other part of right foot with unspecified severity (2) Cellulitis Status: Acute Qualifiers: Qualified Codes: L03.031 - Cellulitis of right toe (3) Foot ulcer due to secondary DM Clinical Quality Measures DVT/VTE Risk/Contraindication: Contraindications-Mechi: Other *list below* Other: not on right foot due to infection WAYNE SUNSHINE DO Apr 22, 2022 12:33
[2022-04-22 13:28] VITALS: BP 147/82
== END 2022-04-22 13:31 | disposition home or self-care, planned readmission (81) ==
LOC: EDUNIT# 12:47 → ER 12:49 → UNDOADMOB 15:37 → 4TH 15:37 → UNDODISOB 04-22 13:31
PROVIDERS: ADMIT Internal Medicine; ATTEND Internal Medicine
DX: E11.621 Type 2 diabetes mellitus with foot ulcer (principal); L97.516 Non-pressure chronic ulcer of other part of right foot with bone involvement without evidence of necrosis; M86.8X7 Other osteomyelitis, ankle and foot; F17.210 Nicotine dependence, cigarettes, uncomplicated
CPT/HCPCS: 28825; 71045; 73590; 73620; 80053 ×3; 80202; 82947 ×3; 83605; 85025 ×3; 85610; 85730; 86141; 87040; 87081; 96366 ×3; 96372 ×2; 96376 ×2; 99284; G0378; 36415

== ENCOUNTER → 2022-06-27 | Outpatient (CLI) | payer MEDICARE, MEDICAID ==
[~2022-06-27] MED LIST changes: +AMOX1TAB12 PO; +METF-399 PO; +OLME5TAB29 PO; -OLME5TAB6 PO
--- NOTE | 2022-06-27 15:58 | Diagnostic Imaging Report ---
INDICATION: Right foot swelling, status post great toe amputation. Sonographic interrogation of the right foot was performed at the area of swelling. No discrete fluid collection is identified. IMPRESSION: No sonographic abnormality is detected. Dictated by: Dictated on workstation # [id number]
--- NOTE | 2022-06-27 16:12 | Diagnostic Imaging Report ---
INDICATION: Osteomyelitis is questioned. Big toe wound. EXAMINAtion: Left foot 06/27/2022. COMPARISON: 01/23/2021. FINDINGS: There is a fracture at the base of the 5th metatarsal with diastases of approximately 4 to 5 mm. This appears subacute to chronic with a non-united appearance. There is narrowing and spurring at the 1st metatarsal phalangeal joint. No destructive changes to suggest osteomyelitis. IMPRESSION: 1. Chronic findings throughout the great toe with no obstructive findings appreciated. 2. Likely chronic nonunited fracture at the base of the 5th metatarsal correlate with timing of injury. Dictated by: Dictated on workstation # [id number]
== END ==
LOC: RAD 11:37
PROVIDERS: ATTEND Surgery
DX: S91.102A Unspecified open wound of left great toe without damage to nail, initial encounter (principal); L03.90 Cellulitis, unspecified; M86.9 Osteomyelitis, unspecified; Z89.429 Acquired absence of other toe(s), unspecified side
CPT/HCPCS: 73630; 76881

== ENCOUNTER 2022-08-02 19:54 | Inpatient (IN) | payer MEDICARE, MEDICAID ==
[~2022-08-02] VITALS: Ht 152.4 cm; Wt 93.5 kg
[~2022-08-02 19:54] MED LIST changes: -BUPR150T28 PO; -CYCL1DRO OU; -DAPA10TA PO; -DOXY100T2 PO; -LIDO700A45 TD; -OLME20TA24 PO; -TR1C15 TOP
[2022-08-02] MEDS ORDERED: NS IV 1000 ML 1,000 ML ONE (20:29)
[2022-08-02] MEDS ORDERED: LIDOCAINE UROJET 2% GEL 10 ML PKG TOP ONE (20:30)
[2022-08-02] MEDS ORDERED: PIPERACILLIN SODIUM/TAZOBACTAM 4.5 GM in NS (IVPB) 100 ML IV ONE (20:30)
[2022-08-02] MEDS: NS IV 1000 ML 1,000 ML IV SCH ×4 (20:39→22:59)
[2022-08-02 20:40] LABS: BASOPHILS # (AUTO) 0.1 10^3/uL (0.0-0.1); BASOPHILS % (AUTO) 1 % (0-10); EOSINOPHILS # (AUTO) 0.1 10^3/uL (0.0-0.3); EOSINOPHILS % (AUTO) 1 % (0-10); HEMATOCRIT 34 % (35-52); HEMOGLOBIN 10.4 g/dL (11.5-16.0); LYMPHOCYTES # (AUTO) 3.1 10^3/uL (1.0-4.0); LYMPHOCYTES % (AUTO) 17 % (12-44); MEAN CORPUSCULAR HEMOGLOBIN 26 pg (25-34); MEAN CORPUSCULAR HGB CONC 31 g/dL (32-36); MEAN CORPUSCULAR VOLUME 84 fL (80-99); MEAN PLATELET VOLUME 8.8 fL (9.0-12.2); MONOCYTES # (AUTO) 1.4 10^3/uL (0.0-1.0); MONOCYTES % (AUTO) 8 % (0-12); NEUTROPHILS % (AUTO) 73 % (42-75); PLATELET COUNT 662 10^3/uL (130-400); WHITE BLOOD COUNT 17.9 10^3/uL (4.3-11.0)
[2022-08-02] MEDS: VANCOMYCIN INJECTION 750 MG in NS (IVPB) 250 ML IV SCH ×2 (20:50→22:59)
[2022-08-02 20:54] LABS: ALBUMIN 3.1 GM/DL (3.2-4.5)
--- NOTE | 2022-08-02 20:54 | Diagnostic Imaging Report ---
INDICATION: Sepsis COMPARISON: 04/20/2022. FINDINGS: Single frontal view of the chest demonstrates normal heart size and pulmonary vascularity. The lungs are well aerated and clear. No large pleural effusion or pneumothorax is seen. The visualized osseous structures show no acute abnormalities. IMPRESSION: No acute cardiopulmonary process. Dictated by: Dictated on workstation # [id number]
[2022-08-02 20:55] LABS: POTASSIUM 4.1 MMOL/L (3.6-5.0)
[2022-08-02 20:56] LABS: CALCIUM 9.1 MG/DL (8.5-10.1)
[2022-08-02 20:57] LABS: TOTAL PROTEIN 7.8 GM/DL (6.4-8.2)
[2022-08-02 20:59] LABS: BILIRUBIN,TOTAL 0.4 MG/DL (0.1-1.0)
[2022-08-02 21:01] LABS: CREATININE SERUM 1.17 MG/DL (0.60-1.30)
--- NOTE | 2022-08-02 21:03 | Diagnostic Imaging Report ---
INDICATION: Sepsis. Bilateral foot ulcers. COMPARISON: 06/27/2022. FINDINGS: RIGHT FOOT: Multiple radiographic views of the right foot were obtained. Patient is status post interval amputation of the great toe. There is prominent osteolytic process to the distal margins of the 1st metatarsal consistent with probable osteomyelitis. There is also soft tissue defect involving the distal tip of the 2nd toe with underlying osteolytic appearance to the tuft of the distal phalanx. Generalized soft tissue swelling is also noted. No unexpected radiopaque foreign bodies are seen. LEFT FOOT: Multiple radiographic views of the left foot were also obtained. There appears to be soft tissue defect of the medial margins of the great toe with generalized soft tissue swelling. There is a longitudinally oriented fracture extending through the distal and medial portions of the proximal phalanx with intra-articular extension. Findings are suggestive of acute fracture. Otherwise, no definite osteolytic process is seen. Evaluation of the remainder of the left foot again demonstrates nonhealed fracture of the 5th metatarsal. This is stable compared to 06/27/2022. No unexpected radiopaque foreign bodies are seen. IMPRESSION: 1. Osteolytic process to the distal portion of the right 1st metatarsal and right 2nd distal phalanx. Findings are strongly suggestive of underlying osteomyelitis. 2. New acute appearing fracture of the 1st proximal phalanx of the left foot. 3. Redemonstration of nonhealed fracture of the left 5th metatarsal. Dictated by: Dictated on workstation # [id number]
[2022-08-02 21:05] LABS: INR 1.1 (0.8-1.4)
--- NOTE | 2022-08-02 21:10 | ED Lower Extremity ---
General Chief Complaint: Lower Extremity Stated Complaint: ACUTE OSTEOMYELITIS OF RIGHT FOOT Nursing Triage Note: Pt presents with c/o R foot pain, recent great toe amputation. She states she's been runing fever for several days. Today she had lab drawn and was told to come to ER to be admitted for elevated lactic. Pt was started on abx earlier today and has had one dose. blood cultures obtained at dr's visit. Source: patient History of Present Illness Date Seen by Provider: Aug 02, 2022 Time Seen by Provider: 20:25 Initial Comments PT ARRIVES VIA POV FROM HOME C/O CHRONIC WOUNDS TO BOTH FEET--BALL OF RIGHT FOOT, AND TO LEFT GREAT TOE. HAS HAD PRIOR RIGHT GREAT TOE AMPUTATION IN MARCH OF THIS YEAR USED TO GO TO WOUND CARE, BUT HAS NOT BEEN THERE IN AT LEAST A YEAR NO REPORTED INJURIES TO EITHER FOOT HAS BEEN RUNNING FEVER AROUND 100 FOR THE LAST WEEK, WAS 100.9 TODAY--HAS NOT TAKEN ANYTHING FOR FEVER WENT TO [facility] TODAY AND SAW DR. LOUISE FOR THIS PROBLEM, HAD LAB AND XRAYS DONE, AND WAS GIVEN RX FOR ANTIBIOTIC--TOOK 1 DOSE. WAS TOLD TO COME HERE TO BE ADMITTED FOR ELEVATED LACTIC ACID. PT STATES BLOOD CULTURES WERE ALSO DONE AT THE CLINIC TODAY. HAS NOT SOUGHT CARE UNTIL TODAY FOR THIS PROBLEM HAS NOT SEEN A DR. IN MONTHS. STATES SYMPTOMS NOT ANY DIFFERENT TODAY GIVES NO REASON WHY SHE DID NOT SEEK CARE UNTIL TODAY--PT STATES SHE "JUST DIDN'T" PT IS DIABETIC, DOES NOT CHECK BLOOD SUGAR OR FOLLOW A DIET. PT IS DRINKING REGULAR DR. ROJAS ON ARRIVAL TO ER. THIS WAS SUBSEQUENTLY REMOVED FROM PT AND DISPOSED OF IN TRASH. PCP: [facility] Allergies and Home Medications Allergies Coded Allergies: No Known Drug Allergies (Unverified , 10/02/18) Patient Home Medication List Home Medication List Reviewed: Yes Albuterol Sulfate (Ventolin Hfa) 1 Puff Puff, 2 PUFF INH Q4H PRN for WHEEZING, (Reported) Entered as Reported by: KERWIN KELLY on 09/07/20 1424 Amitriptyline HCl (Amitriptyline HCl) 25 Mg Tablet, 25 MG PO HS, (Reported) Entered as Reported by: KERWIN KELLY on 09/07/20 1413 Amoxicillin/Potassium Clav (Amox Tr-K Clv 875-125 mg Tab) 875 Mg-125 Mg Tablet, 1 EACH PO BID Prescribed by: WAYNE SUNSHINE on 04/22/22 1232 Atorvastatin Calcium (Atorvastatin Calcium) 40 Mg Tablet, 40 MG PO HS, (Reported) Entered as Reported by: KERWIN KELLY on 09/07/20 142 Bupropion HCl (Bupropion HCl Sr) 150 Mg Tablet.er, 150 MG PO DAILY, (Reported) Entered as Reported by: KERWIN KELLY on 09/07/20 141 Duloxetine HCl (Duloxetine HCl) 60 Mg Capsule.dr, 60 MG PO HS, (Reported) Entered as Reported by: KERWIN KELLY on 09/07/20 141 Duloxetine HCl (Duloxetine HCl) 30 Mg Capsule.dr, 30 MG PO HS, (Reported) Entered as Reported by: KERWIN KELLY on 09/07/20 141 Hydrocodone Bit/Acetaminophen (HYDROcodone/APAP 5 MG/325 MG TAB) 1 Tab Tab, 1 TAB PO TID PRN for PAIN-MODERATE (5-7) Prescribed by: WAYNE SUNSHINE on 04/22/22 1233 Levothyroxine Sodium (Levothyroxine Sodium) 50 Mcg Tablet, 50 MCG PO DAILY, (Reported) Entered as Reported by: RODOLFO JAMESON on 12/16/15 132 Metformin HCl (Metformin HCl) 500 Mg Tablet, 500 MG PO DAILY, (Reported) Entered as Reported by: RODOLFO JAMESON on 12/16/15 1326 Metformin HCl (Metformin HCl) 1,000 Mg Tablet, 1,000 MG PO HS, (Reported) Entered as Reported by: SAVI RODRÍGUEZ on 04/20/222023 Mv-Mn/Folic Acid/Calcium/Vit K (Women's 50 Plus Multivit Tab) 1 Each Tablet, 1 EACH PO DAILY, (Reported) Entered as Reported by: KERWIN KELLY on 09/07/20 142 Olmesartan Medoxomil (Olmesartan Medoxomil) 5 Mg Tablet, 5 MG PO DAILY, (Reported) Entered as Reported by: KERWIN KELLY on 09/07/20 141 Pantoprazole Sodium (Protonix) 40 Mg Tablet.dr, 40 MG PO DAILY Prescribed by: LUCILA HORTON on 09/13/20 0934 Polyethylene Glycol 3350 (Miralax) 119 Gm Powder, 17 GM PO DAILY PRN for CONSTIPATION-1ST LINE, (Reported) Entered as Reported by: KERWIN KELLY on 09/07/20 1424 Potassium Chloride (Potassium Chloride) 10 Meq Capsule.er, 10 MEQ PO BID, (Reported) Entered as Reported by: YUNIOR ARREDONDO on 03/21/17 1539 Promethazine HCl (Promethazine Tablet) 25 Mg Tablet, 25 MG PO Q6H PRN for NAUSEA/VOMITING, (Reported) Entered as Reported by: RODOLFO JAMESON on 10/02/18 1159 Ropinirole HCl (Ropinirole HCl) 0.25 Mg Tablet, 0.25 MG PO HS, (Reported) Entered as Reported by: KERWIN KELLY on 09/07/20 1424 Tizanidine HCl (Tizanidine HCl) 4 Mg Tablet, 4 MG PO TID PRN for MUSCLE SPASMS, (Reported) Entered as Reported by: KERWIN KELLY on 09/07/20 1413 Review of Systems Constitutional: see HPI, fever EENTM: no symptoms reported Respiratory: dyspnea on exertion Cardiovascular: no symptoms reported Gastrointestinal: no symptoms reported Genitourinary: no symptoms reported Musculoskeletal: see HPI Skin: see HPI Psychiatric/Neurological: Pre-Existing Deficit (PERIPHERAL NEUROPATHY. ) Past Fzxrrxf-Hhkvsu-Dztjly Hx Patient Social History Tobacco Use?: Yes Tobacco type used: Cigarettes Smoking Status: Current Everyday Smoker Substance use?: No Alcohol Use?: No Immunizations Up To Date Tetanus Booster (TDap): Unknown First/Initial COVID19 Vaccinat: 2020 Second COVID19 Vaccination Sergio: 2020 Seasonal Allergies Seasonal Allergies: No Past Medical History Surgery/Hospitalization HX: HERNIA REPAIR, R AND L CARPAL TUNNEL, R FOOT SURGERY, VENACAVA FILTER PLACED PMH: TYPE 2 DM Surgeries: Yes Abdominal, Adenoidectomy, Amputation, Orthopedic, Tonsillectomy, Vascular Surgery Respiratory: Yes Pulmonary Embolism Currently Using CPAP: No Currently Using BIPAP: No Cardiac: Yes (VENA CAVA FILTER IN PLACE--DVT'S AND PE'S. 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 Sexually Transmitted Disease: No HIV/AIDS: No Genitourinary: No Gastrointestinal: Yes (dysphagia; HERNIA REPAIR X 5) Abdominal Hernia, Gastroesophageal Reflux Musculoskeletal: Yes (RIGHT GREAT TOE AMPUTATION, MULTIPLE ORTHO SURGERIES) Amputee, Degenerate Disk Disease, Arthritis, Scoliosis Endocrine: Yes Hypothyroidsim, Diabetes, Non-Insulin dep HEENT: Yes Loss of Vision: Bilateral Hearing Impairment: Denies Cancer: No Psychosocial: Yes Anxiety, Depression Integumentary: Yes (Chronic diabetic foot ulcers; OSTEOMYELITIS) Blood Disorders: No Adverse Reaction/Blood Tranf: No (N/A) Family Medical History Colon cancer requiring screening colonoscopy Heart Disease, Diabetes, Psychiatric Problems SOCIAL HISTORY: -SMOKES 1/2-1 PPD -DENIES DRUG USE -DENIES ETOH USE PAST SURGICAL HISTORY: -TONSILLECTOMY AND ADENOIDECTOMY -BLADDER SLING -BILATERAL CARPAL TUNNEL -BILATERAL ELBOW SURGERY -RIGHT SHOULDER SCOPE X 2 -RIGHT ROTATOR CUFF REPAIR -HERNIA SURGERY X 5 -VENA CAVA FILTER PLACEMENT -RIGHT FOOT SURGERY X 2 -RIGHT GREAT TOE AMPUTATION 03/2022. Physical Exam Vital Signs Vital Signs - First Documented 08/02/22 20:00 Temp 37.8 Pulse 96 Resp 18 B/P (MAP) 85/53 (64) Capillary Refill : Less Than 3 Seconds Height, Weight, BMI Height: 5'0" Weight: 179lbs. 4.0oz. 81.710886xx; 33.00 BMI Method:Stated General Appearance: WD/WN, no apparent distress, other (REEKS OF CIGARETTES. PT IS CONSTANTLY PLAYING A GAME ON HER PHONE THROUGHTOUT HISTORY AND EXAM--AND KEEPS HER EYES ON HER PHONE AT ALL TIMES. REFUSES TO PUT PHONE AWAY. ) Neck: normal inspection Cardiovascular: regular rate, rhythm Respiratory: normal breath sounds Gastrointestinal: non tender, soft Back: no CVA tenderness Hips: bilateral hip non-tender Legs: bilateral leg non-tender Knees: bilateral knee non-tender Ankles: left ankle normal inspection; right ankle other (MODERATE SWELLING TO RIGHT FOOT AND ANKLE. ) Feet: right foot other (MODERATE SWELLING AND ERYTHEMA TO RIGHT FOOT, WITH A 1 X 1 CM DIAMETER, AT LEAST A STAGE 2 ULCER TO PLANTAR ASPECT OF FOOT / BALL OF FOOT, NEAR FIRST MTP JOINT. SCANT AMOUNT OF SEROSANGUINOUS DRAINAGE FROM THE AREA. PRIOR RIGHT GREAT TOE AMPUTATION. LEFT GREAT TOE WITH A 1 X 1 CM DIAMETER ULCER--ALSO AT LEAST A STAGE 2--TO MEDIAL / PLANTAR ASPECT OF LEFT GREAT TOE, WITH SMALL AMOUNT OF SEROSANGUINOUS DRAINAGE. MODERATE SWELLING AND ERYTHEMA TO LEFT GREAT TOE. VERY MINMAL SENSATION TO EITHER FOOT. DOES HAVE NORMAL ROM OF BOTH FEET. BOTH FEET ARE WARM, BUT PULSES ARE VERY FAINT SHEMAR TATERALLY. THERE IS NO CYANOSIS/DUSKINESS TO TOES OR FEET. AND FEET ARE WARM.) Neurologic/Psychiatric: alert, normal mood/affect, oriented x 3, other ( ABOVE) Skin: warm/dry, other ( ABOVE) Progress/Results/Core Measures Results/Orders Lab Results Laboratory Tests Test 08/02/22 20:11 08/02/22 20:33 Range/Units White Blood Count 17.9 H 4.3-11.0 10^3/uL Red Blood Count 3.98 3.80-5.11 10^6/uL Hemoglobin 10.4 L 11.5-16.0 g/dL Hematocrit 34 L 35-52 % Mean Corpuscular Volume 84 80-99 fL Mean Corpuscular Hemoglobin 26 25-34 pg Mean Corpuscular Hemoglobin Concent 31 L 32-36 g/dL Red Cell Distribution Width 15.9 H 10.0-14.5 % Platelet Count 662 H 130-400 10^3/uL Mean Platelet Volume 8.8 L 9.0-12.2 fL Immature Granulocyte % (Auto) 1 % Neutrophils (%) (Auto) 73 42-75 % Lymphocytes (%) (Auto) 17 12-44 % Monocytes (%) (Auto) 8 0-12 % Eosinophils (%) (Auto) 1 0-10 % Basophils (%) (Auto) 1 0-10 % Neutrophils # (Auto) 13.0 H 1.8-7.8 10^3/uL Lymphocytes # (Auto) 3.1 1.0-4.0 10^3/uL Monocytes # (Auto) 1.4 H 0.0-1.0 10^3/uL Eosinophils # (Auto) 0.1 0.0-0.3 10^3/uL Basophils # (Auto) 0.1 0.0-0.1 10^3/uL Immature Granulocyte # (Auto) 0.2 H 0.0-0.1 10^3/uL Prothrombin Time 15.0 H 12.2-14.7 SEC INR Comment 1.1 0.8-1.4 Activated Partial Thromboplast Time 36 H 24-35 SEC Sodium Level 132 L 135-145 MMOL/L Potassium Level 4.1 3.6-5.0 MMOL/L Chloride Level 100 98-107 MMOL/L Carbon Dioxide Level 20 L 21-32 MMOL/L Anion Gap 12 5-14 MMOL/L Blood Urea Nitrogen 8 7-18 MG/DL Creatinine 1.17 0.60-1.30 MG/DL Estimat Glomerular Filtration Rate 54 BUN/Creatinine Ratio 7 Glucose Level 207 H 70-105 MG/DL Lactic Acid Level 2.62 *H 0.50-2.00 MMOL/L Calcium Level 9.1 8.5-10.1 MG/DL Corrected Calcium 9.8 8.5-10.1 MG/DL Total Bilirubin 0.4 0.1-1.0 MG/DL Aspartate Amino Transf (AST/SGOT) 17 5-34 U/L Alanine Aminotransferase (ALT/SGPT) 15 0-55 U/L Alkaline Phosphatase 123 40-136 U/L Total Protein 7.8 6.4-8.2 GM/DL Albumin 3.1 L 3.2-4.5 GM/DL Procalcitonin 0.16 H <0.10 NG/ML Glucometer 197 H 70-110 MG/DL My Orders Orders - CLIVE BETHEA DO Ed Iv/Invasive Line Start (08/02/22 20:28) Ekg Tracing (08/02/22 20:28) Catheter(Urinary) Insert & Ass 03,15 (08/02/22 20:28) O2 (08/02/22 20:28) Monitor-Rhythm Ecg Trace Only (08/02/22 20:28) Procalcitonin (Pct) (08/02/22 20:28) Cbc With Automated Diff (08/02/22 20:28) Comprehensive Metabolic Panel (08/02/22 20:28) Blood Culture (08/02/22 20:28) Sputum Culture (08/02/22 20:28) Urinalysis (08/02/22 20:28) Urine Culture (08/02/22 20:28) Protime With Inr (08/02/22 20:28) Partial Thromboplastin Time (08/02/22 20:28) Chest 1 View, Ap/Pa Only (08/02/22 20:28) Ed Iv/Invasive Line Start (08/02/22 20:28) Ed Iv/Invasive Line Start (08/02/22 20:28) Vital Signs Adult Sepsis Patie Q15M (08/02/22 20:28) O2 (08/02/22 20:28) Remove Rings In Anticipation O (08/02/22 20:28) Lactic Acid Analyzer (08/02/22 20:28) Piperacillin Sodium/Tazobactam (Zosyn Vi (08/02/22 20:30) Vancomycin Injection (Vancomycin Injecti (08/02/22 20:30) Lidocaine 2% (Urojet) (Xylocaine Urojet) (08/02/22 20:30) Ed Iv/Invasive Line Start (08/02/22 20:28) Ns Iv 1000 Ml (Sodium Chloride 0.9%) (08/02/22 20:30) Accucheck Stat ONCE (08/02/22 20:28) Ns Iv 1000 Ml (Sodium Chloride 0.9%) (08/02/22 20:29) Foot, Bilateral, 3 View (08/02/22 20:37) Wound Culture (08/02/22 21:10) Wound Culture (08/02/22 21:10) Ed Admission (Communication) (08/02/22 21:17) Medications Given in ED Current Medications Medications Dose Ordered Sig/Errol Route Start Time Stop Time Status Last Admin Dose Admin Piperacillin Sod/ Tazobactam Sod 4.5 gm/Sodium Chloride 100 ml @ 200 mls/hr ONCE ONCE IV 08/02/22 20:30 08/02/22 20:59 DC 08/02/22 20:50 200 MLS/HR Vital Signs/I&O 08/02/22 20:00 Temp 37.8 Pulse 96 Resp 18 B/P (MAP) 85/53 (64) 08/03/22 00:00 Intake Total 1000 ml Balance 1000 ml Blood Pressure Mean: 64 Progress Progress Note : Progress Note SEPSIS PROTOCOL INITIATED GIVEN: -IV FLUIDS -ANTIBIOTICS CULTURES OBTAINED FROM WOUNDS LACTIC ACID DRAWN BLOOD CULTURES DRAWN BP UP TO > 100 SYSTOLIC WITH 2 LITERS OF FLUIDS NO DETERIORATION IN PT'S CONDITION DURING ER STAY PT HAD NO COMPLAINTS OF ANY KIND DURING ER STAY Initial ECG Impression Date: Aug 02, 2022 Initial ECG Impression Time: 20:53 Initial ECG Rate: 82 Initial ECG Rhythm: Normal Sinus Initial ECG Impression: Nonspecific Changes Diagnostic Imaging Comments XRAYS--PER RADIOLOGIST REPORTS AT 2114 CXR--FINDINGS: Single frontal view of the chest demonstrates normal heart size and pulmonary vascularity. The lungs are well aerated and clear. No large pleural effusion or pneumothorax is seen. The visualized osseous structures show no acute abnormalities. IMPRESSION: No acute cardiopulmonary process. BILATERAL FEET--COMPARISON: 06/27/2022. FINDINGS: RIGHT FOOT: Multiple radiographic views of the right foot were obtained. Patient is status post interval amputation of the great toe. There is prominent osteolytic process to the distal margins of the 1st metatarsal consistent with probable osteomyelitis. There is also soft tissue defect involving the distal tip of the 2nd toe with underlying osteolytic appearance to the tuft of the distal phalanx. Generalized soft tissue swelling is also noted. No unexpected radiopaque foreign bodies are seen. LEFT FOOT: Multiple radiographic views of the left foot were also obtained. There appears to be soft tissue defect of the medial margins of the great toe with generalized soft tissue swelling. There is a longitudinally oriented fracture extending through the distal and medial portions of the proximal phalanx with intra-articular extension. Findings are suggestive of acute fracture. Otherwise, no definite osteolytic process is seen. Evaluation of the remainder of the left foot again demonstrates nonhealed fracture of the 5th metatarsal. This is stable compared to 06/27/2022. No unexpected radiopaque foreign bodies are seen. IMPRESSION: 1. Osteolytic process to the distal portion of the right 1st metatarsal and right 2nd distal phalanx. Findings are strongly suggestive of underlying osteomyelitis. 2. New acute appearing fracture of the 1st proximal phalanx of the left foot. 3. Redemonstration of nonhealed fracture of the left 5th metatarsal. Reviewed: Reviewed by Me Departure Communication (Admissions) 2109--SPOKE WITH DR. SUNSHINE, HOSPITALIST FOR [facility]. ACCEPTS PT FOR ADMIT. SHE WILL PUT IN ADMIT ORDERS. 2112--SPOKE WITH DR. RAMOS FOR SURGICAL CONSULT 2114--REPORT TO E-ICU PHYSICIAN. Impression Primary Impression: Severe sepsis Additional Impressions: BILATERAL FOOT OSTEOMYELITIS Uncontrolled diabetes mellitus CHRONIC BILATERAL DIABETIC FOOT ULCERS UTI (urinary tract infection) Non-compliance BILATERAL NON-TRAUMATIC FOOT FRACTURES Disposition: ADMITTED INPATIENT Condition: Improved Admissions Decision to Admit Reason: Admit from ER (General) Decision to Admit/Date: Aug 02, 2022 Time/Decision to Admit Time: 21:10 Departure-Patient Inst. Referrals: GEO LOUISE MD (PCP/Family) Primary Care Physician CLIVE BETHEA DO Aug 02, 2022 21:10
[2022-08-02] MEDS ORDERED: ACETAMINOPHEN 500 MG TAB (TYLENOL) PO ONE (21:45)
[2022-08-02] MEDS ORDERED: HYDROmorphone 2 MG/ML VIAL (DILAUDID) IV PRN (22:00)
[2022-08-02] MEDS ORDERED: ONDANSETRON 4 MG (ZOFRAN) ORAL DISSOLVE TAB PO PRN (22:00)
[2022-08-02] MEDS ORDERED: VANCOMYCIN INJECTION 0.1 MG in NS (IVPB) 250 ML IV SCH (22:00)
[2022-08-02] MEDS ORDERED: MILK OF MAGNESIA 400 MG/5 ML 30 ML UDC PO PRN (22:00)
[2022-08-02] MEDS ORDERED: polyethylene glycoL POWDER 17 GM (MIRALAX) PACK PO PRN (22:00)
[2022-08-02] MEDS ORDERED: NOREPINEPHRINE 16 MG in NS (IVPB) 234 ML IV SCH (22:00)
[2022-08-02] MEDS ORDERED: BISACODYL 10 MG SUPP (DULCOLAX) PR PRN (22:00)
[2022-08-02] MEDS ORDERED: NS IV 500 ML 500 ML IV PRN (22:00)
[2022-08-02] MEDS ORDERED: ALPRAZolam 1 MG (XANAX) TAB PO PRN (22:00)
[2022-08-02] MEDS ORDERED: morphine IMMEDIATE RELEASE 15 MG TABLET PO PRN (22:00)
[2022-08-02] MEDS ORDERED: LACTULOSE SYRUP 10GM/15ML (ENULOSE) 30ML UDC PO PRN (22:00)
[2022-08-02] MEDS ORDERED: diphenhydrAMINE 50 MG/ML INJ (BENADRYL) IVP PRN (22:00)
--- NOTE | 2022-08-02 22:01 | Tele-ICU Progress Note ---
Subjective Date Seen by a Provider: Aug 02, 2022 Subjective/Events-last exam 57 y/o F with hx of DM admitted to MICU for sepsis likely 2/2 ostemyelitis Sepsis Event Evaluation Height, Weight, BMI Height: 5'0" Weight: 179lbs. 4.0oz. 81.671559iz; 33.00 BMI Method:Stated Focused Exam Lactate Level 08/02/22 20:11: Lactic Acid Level 2.62*H Lactic Acid Level Laboratory Tests Test 08/02/22 20:11 Lactic Acid Level 2.62 MMOL/L (0.50-2.00) *H Exam Exam Patient acknowledged, consented, and participated in this virtual visit which was conducted using real time audio/video Vital Signs Date Time Temp Pulse Resp B/P (MAP) Pulse Ox O2 Delivery O2 Flow Rate FiO2 08/02/22 20:00 37.8 96 18 85/53 (64) Height & Weight Height: 5'0" Weight: 179lbs. 4.0oz. 81.633439yi; 33.00 BMI Method:Stated Capillary Refill: Less Than 3 Seconds Results Lab Laboratory Tests 08/02/22 20:11 GAIL JONES MD Aug 02, 2022 22:01
[2022-08-02 22:02] VITALS: BP 117/69
[2022-08-02 22:02] LABS: BILIRUBIN,URINE NEGATIVE (NEGATIVE); CLARITY,URINE CLOUDY; COLOR,URINE YELLOW; GLUCOSE, URINE (UA) 3+ (NEGATIVE); KETONES,URINE NEGATIVE (NEGATIVE); LEUKOCYTE ESTERASE ,URINE 2+ (NEGATIVE); NITRITE,URINE NEGATIVE (NEGATIVE); PROTEIN,URINE NEGATIVE (NEGATIVE)
[2022-08-02 22:09] LABS: BACTERIA,URINE LARGE /HPF; WBC,URINE 25-50 /HPF
[2022-08-02 22:21] VITALS: BP 85/53
[2022-08-02] MEDS ORDERED: RT-ALBUTEROL SULF 2.5 MG/3 ML PRE-MIX VIAL INH PRN (22:45)
[2022-08-02] MEDS: ENOXAPARIN 40 MG/0.4 ML (LOVENOX) SYR SC SCH (22:58)
[2022-08-03] MEDS: ACETAMINOPHEN 325 MG TABLET PO PRN ×3 (00:53→21:53)
[2022-08-03] MEDS: PIPERACILLIN SODIUM/TAZOBACTAM 4.5 GM in NS (IVPB) 100 ML IV SCH ×3 (02:22→17:55)
[2022-08-03 05:05] LABS: BASOPHILS # (AUTO) 0.1 10^3/uL (0.0-0.1); BASOPHILS % (AUTO) 1 % (0-10); EOSINOPHILS # (AUTO) 0.2 10^3/uL (0.0-0.3); EOSINOPHILS % (AUTO) 1 % (0-10); HEMATOCRIT 29 % (35-52); HEMOGLOBIN 9.1 g/dL (11.5-16.0); LYMPHOCYTES # (AUTO) 4.2 10^3/uL (1.0-4.0); LYMPHOCYTES % (AUTO) 24 % (12-44); MEAN CORPUSCULAR HEMOGLOBIN 27 pg (25-34); MEAN CORPUSCULAR HGB CONC 31 g/dL (32-36); MEAN CORPUSCULAR VOLUME 86 fL (80-99); MEAN PLATELET VOLUME 8.8 fL (9.0-12.2); MONOCYTES # (AUTO) 1.7 10^3/uL (0.0-1.0); MONOCYTES % (AUTO) 10 % (0-12); NEUTROPHILS # (AUTO) 11.2 10^3/uL (1.8-7.8); NEUTROPHILS % (AUTO) 64 % (42-75); PLATELET COUNT 486 10^3/uL (130-400); WHITE BLOOD COUNT 17.6 10^3/uL (4.3-11.0)
[2022-08-03 05:23] LABS: ALBUMIN 2.5 GM/DL (3.2-4.5); BILIRUBIN,TOTAL 0.4 MG/DL (0.1-1.0); CREATININE SERUM 0.82 MG/DL (0.60-1.30); MAGNESIUM 1.2 MG/DL (1.6-2.4); PHOSPHORUS 3.1 MG/DL (2.3-4.7); POTASSIUM 3.9 MMOL/L (3.6-5.0); TOTAL PROTEIN 6.2 GM/DL (6.4-8.2)
[2022-08-03] MEDS: inSUlin ASPART (NovoLOG) 1 UNIT/0.01 ML (CHARGE PER UNIT) SC SCH ×4 (05:31→21:04)
[2022-08-03] MEDS: MAGNESIUM 1 GM/100 ML IVPB 100 ML IV SCH ×3 (05:36→09:05)
[2022-08-03] MEDS ORDERED: MAGNESIUM 1 GM/100 ML IVPB 100 ML IV SCH (06:00)
[2022-08-03] MEDS ORDERED: KCL 20 MEQ TAB (K-DUR) PO SCH (06:00)
[2022-08-03] MEDS ORDERED: POTASSIUM CL 10MEQ/50ML IVPB 50 ML IV SCH (06:00)
[2022-08-03] MEDS: NS IV 1000 ML 1,000 ML IV SCH (07:58)
[2022-08-03] MEDS: DOCUSATE SODIUM 100 MG (COLACE) CAP PO SCH ×2 (09:11→20:21)
[2022-08-03] MEDS: SENNOSIDES 8.6 MG (SENOKOT) TAB PO SCH ×2 (09:11→20:21)
[2022-08-03] MEDS: PANTOPRAZOLE 40 MG (PROTONIX) TAB PO SCH (09:11)
[2022-08-03] MEDS ORDERED: HYPOCHLOROUS ACID/NaCl (VASHE) 250 ML IR PRN (10:00)
[2022-08-03] MEDS ORDERED: FUROSEMIDE 40 MG/4 ML INJ (LASIX) IVP NR (11:00)
--- NOTE | 2022-08-03 11:00 | Tele-ICU Consult ---
History of Present Illness History of Present Illness Date Seen by Provider: Aug 03, 2022 Time Seen by Provider: 10:55 Date of Admission (Tele-ICU Physician , consultation as per request of PCP Service provided via interactive audio and video telecommunications E-CARE system to a patient admitted to ICU bed in [facility]. Available chart/ vitals / labs / Images reviewed H&P is from ER notes Patient's information available about PMH, Shx, Fhx allergy reviewed inEMR. ROS as per chart and RN report SEE DR JONES 's note overnight Now in ICU, hemodynamically stable Video assessment done using teleICU camera, rest of exam as per RN Discussed with RN. Afebrile hemodynamically stable Respiratory - I/O = Drips: ns Pressors- no Consultants: sx Hospital course: Patient is seen today due to persistent and new A/P Sepsis - suspected foot infection - received IVF , vitals stabel now, lactate normalized Diabetic chronic foot ulcers, suspected osteomyelitis by Xrays - ABX started - Sx consulted UTI - cont abx Dm - ISS, as per PCP Anemia - chronic, no acute bleeding ECHO 2020 - EF 55% , RVSP 35 mmHg -steress test 2020- ef 75% , no ischemia Lines : periph- NEED PICC for long therm abx , (Central Line Necessity Reviewed) Redman: void OG: Nutrition: Analgesia: Anxiety/ delirium VTE Prophylaxis: adolfo 40 Stress Ulcer Prophylaxis: na Plans in collaboration with bedside consultants and IM MDs. Discussed with RN to reach out if any questions or concerns A total of 32 minutes of critical care time was devoted to this patient today, required to treat and/or prevent further deterioration of critical care condition ( as above ) . I am remotely monitoring this patient from another state. I am unable to do the bedside exam, and history/physical and pertinent information is taken from other notes in the computer and bedside staff. Allergies and Home Medications Allergies Coded Allergies: No Known Drug Allergies (Unverified , 10/02/18) Home Medications Albuterol Sulfate 1 Puff Puff, 2 PUFF INH Q4H PRN for WHEEZING, (Reported) 1 PUFF = 90 MCG Amitriptyline HCl 25 Mg Tablet, 25 MG PO HS, (Reported) Amoxicillin/Potassium Clav 875 Mg-125 Mg Tablet, 1 EACH PO BID Prescribed by: WAYNE SUNSHINE on 04/22/22 1232 Atorvastatin Calcium 40 Mg Tablet, 40 MG PO HS, (Reported) Bupropion HCl 150 Mg Tablet.er, 150 MG PO DAILY, (Reported) Duloxetine HCl 60 Mg Capsule.dr, 60 MG PO HS, (Reported) Duloxetine HCl 30 Mg Capsule.dr, 30 MG PO HS, (Reported) Hydrocodone Bit/Acetaminophen 1 Tab Tab, 1 TAB PO TID PRN for PAIN-MODERATE (5- 7) Prescribed by: WAYNE SUNSHINE on 04/22/22 1233 Levothyroxine Sodium 50 Mcg Tablet, 50 MCG PO DAILY, (Reported) Metformin HCl 500 Mg Tablet, 500 MG PO DAILY, (Reported) Metformin HCl 1,000 Mg Tablet, 1,000 MG PO HS, (Reported) Mv-Mn/Folic Acid/Calcium/Vit K 1 Each Tablet, 1 EACH PO DAILY, (Reported) Olmesartan Medoxomil 5 Mg Tablet, 5 MG PO DAILY, (Reported) Pantoprazole Sodium 40 Mg Tablet.dr, 40 MG PO DAILY Prescribed by: LUCILA HORTON on 09/13/20 0934 Polyethylene Glycol 3350 119 Gm Powder, 17 GM PO DAILY PRN for CONSTIPATION-1ST LINE, (Reported) Potassium Chloride 10 Meq Capsule.er, 10 MEQ PO BID, (Reported) Promethazine HCl 25 Mg Tablet, 25 MG PO Q6H PRN for NAUSEA/VOMITING, (Reported) Ropinirole HCl 0.25 Mg Tablet, 0.25 MG PO HS, (Reported) Tizanidine HCl 4 Mg Tablet, 4 MG PO TID PRN for MUSCLE SPASMS, (Reported) Past Medical/Social/Family Hx Patient Social History Tobacco Use?: Yes Tobacco type used: Cigarettes Smoking Status: Current Everyday Smoker Use of E-Cig and/or Vaping dev: No Substance use?: No Alcohol Use?: No Pt stated abuse/neglect: No Immunizations Up To Date Influenza Vaccine Up-to-Date: No; Not Current First/Initial COVID19 Vaccinat: 2020 Second COVID19 Vaccination Sergio: 2020 Tetanus Booster (TDap): Unknown Date of Pneumonia Vaccine: Sep 30, 2012 Current Status status: No Advance Directives: Yes Advance Directive Location: [facility] OFFICE Communicates: Verbally Primary Language: Moldovan Preferred Spoken Language: Moldovan Is interpretation needed?: No Sensory deficits: Vision impairment Family Medical History Family Hx: SOCIAL HISTORY: -SMOKES 1/2-1 PPD -DENIES DRUG USE -DENIES ETOH USE PAST SURGICAL HISTORY: -TONSILLECTOMY AND ADENOIDECTOMY -BLADDER SLING -BILATERAL CARPAL TUNNEL -BILATERAL ELBOW SURGERY -RIGHT SHOULDER SCOPE X 2 -RIGHT ROTATOR CUFF REPAIR -HERNIA SURGERY X 5 -VENA CAVA FILTER PLACEMENT -RIGHT FOOT SURGERY X 2 -RIGHT GREAT TOE AMPUTATION 03/2022. Review of Systems Constitutional: see HPI Focused Exam Lactate Level 08/02/22 20:11: Lactic Acid Level 2.62*H 08/02/22 22:10: Lactic Acid Level 3.00*H 08/03/22 00:30: Lactic Acid Level 1.98 Height, Weight, BMI Height: 5'0" Weight: 179lbs. 4.0oz. 81.060703zi; 34.83 BMI Method:Stated Exam Exam Patient acknowledged, consented, and participated in this virtual visit which was conducted using real time audio/video Vital Signs Date Time Temp Pulse Resp B/P (MAP) Pulse Ox O2 Delivery O2 Flow Rate FiO2 08/03/22 10:00 98/52 (67) 95 Room Air 08/03/22 09:00 86 161/92 (115) 94 Room Air 08/03/22 08:57 100 Room Air 0.00 08/03/22 08:00 36.2 08/03/22 08:00 81 99/67 (78) 98 Room Air 08/03/22 08:00 95 Room Air 08/03/22 07:00 80 08/03/22 07:00 79 15 98 Room Air 08/03/22 06:00 78 26 98 Room Air 08/03/22 05:00 77 22 97 Room Air 08/03/22 04:00 94 Room Air 08/03/22 04:00 36.7 76 23 91/50 (64) 93 Room Air 08/03/22 03:00 82 24 92 Room Air 08/03/22 02:00 89 14 98/60 (73) 99 Room Air 08/03/22 01:00 91 08/03/22 01:00 90 29 98 Room Air 08/03/22 00:15 91 21 86/62 (70) 96 Room Air 08/02/22 23:45 87 19 95 Room Air 08/02/22 23:15 87 18 98 Room Air 08/02/22 23:06 100 Room Air 08/02/22 23:05 89 117/69 08/02/22 23:00 87 22 96 Room Air 08/02/22 22:45 88 23 99 Room Air 08/02/22 22:45 96 Room Air 08/02/22 22:36 36.6 08/02/22 22:31 100 08/02/22 22:29 36.6 89 13 117/69 (85) 100 Room Air 08/02/22 22:21 37.8 96 96 21 08/02/22 22:02 36.6 89 16 117/69 (85) 100 Room Air 08/02/22 20:00 37.8 96 18 85/53 (64) I & O 08/03/22 07:00 Intake Total 4400 ml Balance 4400 ml Height & Weight Height: 5'0" Weight: 179lbs. 4.0oz. 81.885814wp; 34.83 BMI Method:Stated General Appearance: No Apparent Distress Capillary Refill: Less Than 3 Seconds Gastrointestinal: non tender, soft Results Lab Laboratory Tests 08/02/22 20:11 08/03/22 04:37 Assessment/Plan Assessment/Plan 1 NEAL SANTAMARIA MD Aug 03, 2022 11:00
[2022-08-03] MEDS ORDERED: RT-ALBUTEROL/IPRATROPIUM 3 ML (DUONEB) VIAL INH SCH (11:15)
[2022-08-03] MEDS: MIDODRINE 10 MG (PROAMATINE) TAB PO SCH ×3 (11:22→20:22)
--- NOTE | 2022-08-03 11:28 | Progress Note ---
Standard Progress Note Progress Notes/Assess & Plan Date Seen by a Provider: Aug 03, 2022 Time Seen by a Provider: 10:00 Progress/Assessment & Plan PE: chest-scattered wheezes bilat heart-regular. heent-no scleral icterus, no cervical adenopathy. extr-no LE edema, bilateral redness edema medial forefeet. abd-soft NT/ND. Focused Exam Lactate Level 08/02/22 20:11: Lactic Acid Level 2.62*H 08/02/22 22:10: Lactic Acid Level 3.00*H 08/03/22 00:30: Lactic Acid Level 1.98 SUSAN RAMOS MD Aug 03, 2022 11:28
[2022-08-03] MEDS ORDERED: DOXY100T2 PO (11:47)
[2022-08-03] MEDS ORDERED: LIDO700A45 TD (11:47)
[2022-08-03] MEDS ORDERED: DAPA10TA PO (11:47)
[2022-08-03] MEDS ORDERED: OLME20TA24 PO (11:47)
[2022-08-03] MEDS ORDERED: CYCL1DRO OU (11:47)
[2022-08-03] MEDS ORDERED: BUPR150T28 PO (11:47)
[2022-08-03] MEDS ORDERED: METF-397 PO (11:47)
[2022-08-03] MEDS ORDERED: TR1C15 TOP (11:47)
--- NOTE | 2022-08-03 12:25 | History & Physical-Hospitalist ---
AMALIA FONTAINE 08/03/22 1225: History of Present Illness HPI/Chief Complaint Patient is a 57 yo woman that presented to the ER with right foot pain. She has chronic wounds on the ball of her right foot and her left great toe. Prior right great toe amputation in March. She used to see wound care but hasn't been for over a year. She had been running a fever of 100 for the past week, was seen in [facility] by Dr. Farah and placed on antibiotics. She took 1 dose and was told to go to the hospital for elevated lactic acid. She is diabetic, doesn't check her sugar at home or follow a diet. Extensive med history including hypercholesterolemia, hypertension, neuropathy, GERD, hypothyroidism. Smokes around 1/2 to 1 pack of cigarettes a day. Does not use alcohol or illicit substances. History of 2 right foot surgeries. Labs show a WBC of 17.6, HGB of 9.1, PT of 15, APTT of 36. Urine glucose was measured at 3+ and urine LE at 2+. Urine bacteria was measured at large. High urine RBC and WBC noted. Her last taken glucose was 197. Foot x-ray strongly suggestive of osteomyelitis in right first metatarsal and right second distal phalanx. The x-ray also indicated a non-healed fracture of the left 5th metatarsal. Highest lactic acid was 3, last was 1.98. The patient states that she is doing alright today. Notes headache, nausea without vomiting, and hunger. States that her pain is about the same as it was yesterday and says that it gets to around an 8/10 at its worst. She denies chills, SOB, chest pain, constipation or diarrhea. Source: patient, RN/MD, RN notes reviewed, old records Exam Limitations: no limitations Date Seen 08/03/22 Time Seen by a Provider: 09:40 Attending Physician Ana Farah MD PCP Admitting Physician: Aleja Sunshine DO Attending Physician: Aleja Sunshine DO Referring Physician Date of Admission Aug 02, 2022 at 21:19 Home Medications & Allergies Home Medications Reviewed patient Home Medication Reconciliation performed by pharmacy medication reconciliations rehab technician and/or nursing. Patients Allergies have been reviewed. Allergies Allergies Coded Allergies No Known Drug Allergies (Unverified10/02/18) Past Iidwlhu-Yezxaf-Giktji Hx Patient Social History Tobacco Use?: Yes Tobacco type used: Cigarettes Smoking Status: Current Everyday Smoker (0.5 to 1 pack a day) Use of E-Cig and/or Vaping dev: No Substance use?: No Alcohol Use?: No Pt feels they are or have been: No Immunizations Up To Date First/Initial COVID19 Vaccinat: 2020 Second COVID19 Vaccination Sergio: 2020 Tetanus Booster (TDap): Unknown Date of Pneumonia Vaccine: Sep 30, 2012 Seasonal Allergies Seasonal Allergies: No Current Status status: No Advance Directives: Yes Advance Directive Location: [facility] OFFICE Communicates: Verbally Primary Language: Citizen Of [place] Preferred Spoken Language: Citizen Of [place] Is interpretation needed?: No Sensory deficits: Vision impairment Past Medical History Surgeries: Abdominal, Adenoidectomy, Amputation, Orthopedic, Tonsillectomy, Vascular Surgery Pulmonary Embolism Currently Using CPAP: No Currently Using BIPAP: No Deep Vein Thrombosis, High Cholesterol, Hypertension, Irregular Heartbeat, Palpitations, Peripheral Vascular Headaches /Migraines, 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 Sexually Transmitted Disease: No HIV/AIDS: No Abdominal Hernia, Gastroesophageal Reflux Amputee, Degenerate Disk Disease, Arthritis, Scoliosis Hypothyroidsim, Diabetes, Non-Insulin dep Loss of Vision: Bilateral Hearing Impairment: Denies Anxiety, Depression Blood Disorders: No Adverse Reaction/Blood Tranf: No (N/A) Family Medical History Colon cancer requiring screening colonoscopy Heart Disease, Diabetes, Psychiatric Problems SOCIAL HISTORY: -SMOKES 1/2-1 PPD -DENIES DRUG USE -DENIES ETOH USE PAST SURGICAL HISTORY: -TONSILLECTOMY AND ADENOIDECTOMY -BLADDER SLING -BILATERAL CARPAL TUNNEL -BILATERAL ELBOW SURGERY -RIGHT SHOULDER SCOPE X 2 -RIGHT ROTATOR CUFF REPAIR -HERNIA SURGERY X 5 -VENA CAVA FILTER PLACEMENT -RIGHT FOOT SURGERY X 2 -RIGHT GREAT TOE AMPUTATION 03/2022. Review of Systems Constitutional: see HPI, chills (On occasion); No diaphoresis, No dizziness, No fever EENTM: no symptoms reported Respiratory: see HPI; No cough, No short of breath Cardiovascular: no symptoms reported, see HPI; No chest pain, No syncope Gastrointestinal: see HPI; No abdominal pain, No constipation, No diarrhea, No loss of appetite; nausea; No vomiting Genitourinary: no symptoms reported : No Musculoskeletal: see HPI Skin: see HPI, lesions (Lesion on right distal phalanx of second toe as well as a pitted lesion on right ball of foot) Psychiatric/Neurological: No Symptoms Reported, Headache Physical Exam Physical Exam Vital Signs Vital Signs - First Documented 08/02/22 08/02/22 08/02/22 08/03/22 20:00 22:02 22:21 08:57 Temp 37.8 Pulse 96 Resp 18 B/P (MAP) 85/53 (64) Pulse Ox 100 O2 Delivery Room Air O2 Flow Rate 0.00 FiO2 21 Capillary Refill : Less Than 3 Seconds Height, Weight, BMI Height: 5'0" Weight: 179lbs. 4.0oz. 81.454011mw; 34.83 BMI Method:Stated General Appearance: No Apparent Distress, Chronically ill, Mild Distress, Obese HEENT: PERRL/EOMI Neck: Full Range of Motion, Normal Inspection, Non Tender, Supple; No Carotid Bruit, No JVD Respiratory: Chest Non Tender, No Accessory Muscle Use, No Respiratory Distress, Wheezing (Minor wheezes noted bilaterally) Cardiovascular: Regular Rate, Rhythm, No Edema, No Gallop, No JVD, No Murmur, Normal Peripheral Pulses (Radial and dorsalis pedis) Gastrointestinal: Normal Bowel Sounds, No Organomegaly, No Pulsatile Mass, Non Tender, Soft Back: Normal Inspection Extremity: Normal Range of Motion, No Calf Tenderness, Inflammation (Right foot is red and inflammed. Left foot also shows minor redness and warmth.), Swelling Neurologic/Psychiatric: Alert, Oriented x3, No Motor/Sensory Deficits, Normal Mood/Affect Skin: Erythema (Of both feet with more severe erythema in right foot), Other (Circular ulcer noted on right distal phalanx of 2nd toe. Pitted, circular ulcer noted on right ball of foot) Results Results/Procedures Labs Laboratory Tests 08/02/22 20:11 08/03/22 04:37 Patient resulted labs reviewed. Imaging Date of Exam:08/02/22 FOOT, BILATERAL, 3 VIEW INDICATION: Sepsis. Bilateral foot ulcers. COMPARISON: 06/27/2022. FINDINGS: RIGHT FOOT: Multiple radiographic views of the right foot were obtained. Patient is status post interval amputation of the great toe. There is prominent osteolytic process to the distal margins of the 1st metatarsal consistent with probable osteomyelitis. There is also soft tissue defect involving the distal tip of the 2nd toe with underlying osteolytic appearance to the tuft of the distal phalanx. Generalized soft tissue swelling is also noted. No unexpected radiopaque foreign bodies are seen. LEFT FOOT: Multiple radiographic views of the left foot were also obtained. There appears to be soft tissue defect of the medial margins of the great toe with generalized soft tissue swelling. There is a longitudinally oriented fracture extending through the distal and medial portions of the proximal phalanx with intra-articular extension. Findings are suggestive of acute fracture. Otherwise, no definite osteolytic process is seen. Evaluation of the remainder of the left foot again demonstrates nonhealed fracture of the 5th metatarsal. This is stable compared to 06/27/2022. No unexpected radiopaque foreign bodies are seen. IMPRESSION: 1. Osteolytic process to the distal portion of the right 1st metatarsal and right 2nd distal phalanx. Findings are strongly suggestive of underlying osteomyelitis. 2. New acute appearing fracture of the 1st proximal phalanx of the left foot. 3. Redemonstration of nonhealed fracture of the left 5th metatarsal. Dictated by: Dictated on workstation # [id number] Date of Exam:08/02/22 CHEST 1 VIEW, AP/PA ONLY INDICATION: Sepsis COMPARISON: 04/20/2022. FINDINGS: Single frontal view of the chest demonstrates normal heart size and pulmonary vascularity. The lungs are well aerated and clear. No large pleural effusion or pneumothorax is seen. The visualized osseous structures show no acute abnormalities. IMPRESSION: No acute cardiopulmonary process. Dictated by: Dictated on workstation # [id number] Dict: 08/02/222050 Trans: 08/03/22 1032 [facility] [id number] Interpreted by: KEILA LEWIS MD Electronically signed by: KEILA LEWIS MD 08/03/22 1032 Meds Patient currently administered midodrine, furosemide, protonix, senna, and docusate sodium. Hydromorphone, oxycodone administered for pain. Vancomycin finished with 4 more bags ordered, patient currently on IV piperacillin/t azobactam. Enoxaparin sodium for DVT prophylaxis Procedures Wound cultures acquired. Vashe applied to wound site as well as aquasil dressing. Assessment/Plan Admission Diagnosis Osteomyelitis Admission Status: Inpatient Order (span 2 midnights) Reason for Inpatient Admission: Patient admission necessary due to severe infection of bone and need for IV antibiotic series. Patient has compounding health factors that could complicate treatment. Assessment and Plan Osteomyelitis of foot - Continue IV antibiotics and monitor for signs of improvement. Wound culture acquired. Wound care and surgical consult needed to reach best overall treatment plan Sepsis - secondary to UTI or foot infections. Continue antibiotic therapy and monitor labs for improvement or worsening of condition UTI - continue IV antibiotics Uncontrolled Type II diabetes - Insulin as needed, patient non-compliance with diabetic management complicates treatment Bilateral non-traumatic foot fractures - Defer to orthopedics for treatment goals and course. Clinical Quality Measures DVT/VTE Risk/Contraindication: VTE Addressed: Yes VTE Present on Admission: No Contraindications-Mechi: Other *list below* Other: leg cellulitis ALEJA SUNSHINE DO 08/03/22 2100: History of Present Illness HPI/Chief Complaint CC: Bilateral foot pain with redness HPI: This is a 57 yr old female with very complicated issues. Including diabetes out of control and previous amputations of the toe. She presented to the ER with fever. She was found to have bilateral osteomyelitis of the feet. She was placed on Zosyn and Vancomycin. IV fluids were given for hypotension that was not due to severe sepsis. She was given IV fluids but Midodrine was started due to chronic orthostasis. Source: patient, RN/MD Exam Limitations: no limitations Past Wkfnvag-Slhbfs-Nduccd Hx Family Medical History Colon cancer requiring screening colonoscopy Assessment/Plan Admission Diagnosis Osteomyelitis with sepsis Admission Status: Inpatient Order (span 2 midnights) Reason for Inpatient Admission: sepsis Supervisory-Addendum Brief Verification & Attestation Participated in pt care: history, MDM, physical Personally performed: exam, history, MDM, supervision of care Care discussed with: Medical Student Procedures: n/a Results interpretation: Verified all documentation Verification and Attestation of Medical Student E/M Service A medical student performed and documented this service in my presence. I reviewed and verified all information documented by the medical student and made modifications to such information, when appropriate. I personally performed the physical exam and medical decision making. Aleja Sunshine, Aug 03, 2022,20:56 AMALIA FONTAINE Aug 03, 2022 12:25 ALEJA SUNSHINE DO Aug 03, 2022 21:00
[2022-08-03 12:55] VITALS: BP 98/52
[2022-08-03] MEDS: RT-ALBUTEROL/IPRATROPIUM 3 ML (DUONEB) VIAL INH SCH ×2 (15:07→19:48)
[2022-08-03 15:08] VITALS: BP 105/47
[2022-08-03 19:17] VITALS: BP 102/76
[2022-08-03] MEDS: VANCOMYCIN 1 GM/NS 250 ML IVPB IV SCH ×2 (20:21)
[2022-08-03] MEDS: ENOXAPARIN 40 MG/0.4 ML (LOVENOX) SYR SC SCH (21:04)
[2022-08-03] MEDS: MELATONIN 3 MG TABLET PO PRN (21:09)
[2022-08-03] MEDS: diphenhydrAMINE 25 MG TAB (BENADRYL) PO PRN (21:09)
[2022-08-04] VITALS: BP 106/61
[2022-08-04] MEDS: PIPERACILLIN SODIUM/TAZOBACTAM 4.5 GM in NS (IVPB) 100 ML IV SCH ×3 (02:06→17:16)
[2022-08-04 04:07] VITALS: BP 104/64
[2022-08-04] MEDS: inSUlin ASPART (NovoLOG) 1 UNIT/0.01 ML (CHARGE PER UNIT) SC SCH ×4 (06:11→21:16)
--- NOTE | 2022-08-04 06:47 | Consultation - Surgery ---
History of Present Illness History of Present Illness Patient Consulted On(britt/time) 08/04/22 06:39 Date Seen by Provider: Aug 04, 2022 Time Seen by Provider: 06:39 History of Present Illness Consult requested by Dr. Sunshine for osteomyelitis. Patient is a 57 year old woman that presented to the ER on 08-02-2022 with right foot pain. She has chronic wounds on the ball of her right foot and her left great toe. Prior right great toe amputation in March. She used to see wound care but hasn't been for over a year. She had been running a fever of 100 for the past week, was seen in [facility] by Dr. Farah and placed on antibiotics. She took 1 dose and was told to go to the hospital for elevated lactic acid. She is diabetic, doesn't check her sugar at home or follow a diet. Extensive med history including hypercholesterolemia, hypertension, neuropathy, GERD, hypothyroidism. Smokes around 1/2 to 1 pack of cigarettes a day. Does not use alcohol or illicit substances. History of 2 right foot surgeries. She was found to have a UTI with a negative urine culture. Is being treated for sepsis. She is receiving insulin during her stay here and is not happy because she only takes metformin at home and does not think she needs insulin, but is willing to receive it. Her foot x- ray is strongly suggestive of osteomyelitis in right first metatarsal and right second distal phalanx. The x-ray also indicated a non-healed fracture of the l eft 5th metatarsal. As of today 08-04-2022 she is resting in bed comfortably with no pain. She has been eating and drinking well. Bowel movements and bladder are active. Denies any SOB, fever, diarrhea, or chills. Denies any pain in her feet or toes upon palpation. No other complaints at this time. Labs reviewed. . Allergies and Home Medications Allergies Coded Allergies: No Known Drug Allergies (Unverified , 10/02/18) Patient Home Medication List Home Medication List Reviewed: Yes Albuterol Sulfate (Ventolin Hfa) 1 Puff Puff, 2 PUFF INH Q4H PRN for SHORTNESS OF BREATH, (Reported) Entered as Reported by: KERWIN KELLY on 09/07/20 0391 Last Action: Reviewed Amitriptyline HCl (Amitriptyline HCl) 25 Mg Tablet, 25 MG PO HS, (Reported) Entered as Reported by: KERWIN KELLY on 09/07/201412 Last Action: Reviewed Atorvastatin Calcium (Atorvastatin Calcium) 40 Mg Tablet, 40 MG PO HS, (Reported) Entered as Reported by: KERWIN KELLY on 09/07/201423 Last Action: Reviewed Bupropion HCl (Bupropion HCl Sr) 150 Mg Tablet.er, 100 MG PO DAILY, (Reported) Entered as Reported by: CHRISTINE EDWARD on 08/03/221146 Last Action: Reviewed Cyclosporine (Restasis) 0.05 % Droperette, 1 DROP OU BID, (Reported) Entered as Reported by: CHRISTINE EDWARD on 08/03/221146 Last Action: Reviewed Dapagliflozin Propanediol (Farxiga) 10 Mg Tablet, 10 MG PO DAILY, (Reported) Entered as Reported by: CHRISTINE EDWARD on 08/03/221146 Last Action: Reviewed Doxycycline Hyclate (Doxycycline Hyclate) 100 Mg Tablet, 100 MG PO BID, (Reported) Entered as Reported by: CHRISTINE EDWARD on 08/03/221146 Last Action: Reviewed Duloxetine HCl (Duloxetine HCl) 60 Mg Capsule.dr, 60 MG PO HS, (Reported) Entered as Reported by: KERWIN KELLY on 09/07/201412 Last Action: Reviewed Duloxetine HCl (Duloxetine HCl) 30 Mg Capsule.dr, 30 MG PO HS, (Reported) Entered as Reported by: KERWIN KELLY on 09/07/201412 Last Action: Reviewed Levothyroxine Sodium (Levothyroxine Sodium) 50 Mcg Tablet, 50 MCG PO DAILY, (Reported) Entered as Reported by: RODOLFO JAMESON on 12/16/151325 Last Action: Reviewed Lidocaine (Lidocaine 5% Patch) 5 % Adh..patch, 1 PATCH TD DAILY PRN for PAIN- BREAKTHROUGH, (Reported) Entered as Reported by: CHRISTINE EDWARD on 08/03/221146 Last Action: Reviewed Metformin HCl (Metformin HCl) 500 Mg Tablet, 500 MG PO DAILY, (Reported) Entered as Reported by: RODOLFO JAMESON on 12/16/151325 Last Action: Reviewed Metformin HCl (Metformin HCl) 500 Mg Tablet, 1,000 MG PO HS, (Reported) Entered as Reported by: CHRISTINE EDWARD on 08/03/22 114 Last Action: Reviewed Mv-Mn/Folic Acid/Calcium/Vit K (Women's 50 Plus Multivit Tab) 1 Each Tablet, 1 EACH PO DAILY, (Reported) Entered as Reported by: KERWIN KELLY on 09/07/20 1424 Last Action: Reviewed Olmesartan Medoxomil (Olmesartan Medoxomil) 20 Mg Tablet, 20 MG PO HS, (Reported) Entered as Reported by: CHRISTINE EDWARD on 08/03/22 114 Last Action: Reviewed Polyethylene Glycol 3350 (Miralax) 17 Gram/Dose Powder, 17 GM PO DAILY PRN for CONSTIPATION-2ND LINE, (Reported) Entered as Reported by: KERWIN KELLY on 09/07/20 142 Last Action: Reviewed Potassium Chloride (Potassium Chloride) 10 Meq Capsule.er, 10 MEQ PO BID, (Reported) Entered as Reported by: YUNIOR ARREDONDO on 03/21/17 1539 Last Action: Reviewed Promethazine HCl (Promethazine Tablet) 25 Mg Tablet, 25 MG PO Q6H PRN for N AUSEA/VOMITING-2ND LINE, (Reported) Entered as Reported by: RODOLFO JAMESON on 10/02/18 1159 Last Action: Reviewed Triamcinolone Acet (Triamcinolone Acetonide 0.1% Cream) 0.1 % Cr, 1 APPLIC TOP TID PRN for RASH, (Reported) Entered as Reported by: CHRISTINE EDWARD on 08/03/22 114 Last Action: Reviewed Discontinued Medications Amoxicillin/Potassium Clav (Amox Tr-K Clv 875-125 mg Tab) 875 Mg-125 Mg Tablet, 1 EACH PO BID Discontinued Reason: No Longer Taking Prescribed by: WAYNE SUNSHINE on 04/22/22 1232 Last Action: Discontinued Bupropion HCl (Bupropion HCl Sr) 150 Mg Tablet.er, 150 MG PO DAILY, (Reported) Discontinued Reason: New Order Entered as Reported by: KERWIN KELLY on 09/07/20 1413 Last Action: Discontinued Hydrocodone Bit/Acetaminophen (HYDROcodone/APAP 5 MG/325 MG TAB) 1 Tab Tab, 1 TAB PO TID PRN for PAIN-MODERATE (5-7) Discontinued Reason: No Longer Taking Prescribed by: WAYNE SUNSHINE on 04/22/22 1233 Last Action: Discontinued Metformin HCl (Metformin HCl) 1,000 Mg Tablet, 1,000 MG PO HS, (Reported) Discontinued Reason: Prescription changed Entered as Reported by: SAVI RODRÍGUEZ on 04/20/222023 Olmesartan Medoxomil (Olmesartan Medoxomil) 5 Mg Tablet, 5 MG PO DAILY, (Reported) Discontinued Reason: No Longer Taking Entered as Reported by: KERWIN KELLY on 09/07/20 1413 Last Action: Discontinued Pantoprazole Sodium (Protonix) 40 Mg Tablet.dr, 40 MG PO DAILY Discontinued Reason: No Longer Taking Prescribed by: LUCILA HORTON on 09/13/20 0934 Last Action: Discontinued Ropinirole HCl (Ropinirole HCl) 0.25 Mg Tablet, 0.25 MG PO HS, (Reported) Discontinued Reason: No Longer Taking Entered as Reported by: KERWIN KELLY on 09/07/20 1424 Last Action: Discontinued Tizanidine HCl (Tizanidine HCl) 4 Mg Tablet, 4 MG PO TID PRN for MUSCLE SPASMS, (Reported) Discontinued Reason: No Longer Taking Entered as Reported by: KERWIN KELLY on 09/07/20 141 Last Action: Discontinued Past Oemcshw-Bniqfl-Bptbrd Hx Patient Social History Smoking Status: Current Everyday Smoker (0.5 to 1 pack a day) Former Smoker, Quit: Sep 30, 2017 Type Used: Cigarettes 2nd Hand Smoke Exposure: Yes Recent Hopitalizations: No Alcohol Use?: No Have you traveled recently?: No Immunizations Up To Date Tetanus Booster (TDap): Unknown Date of Pneumonia Vaccine: Sep 30, 2012 Seasonal Allergies Seasonal Allergies: No Surgeries History of Surgeries: Yes (Right foot surgery X2, Right great toe amputation 03/2022) Surgeries: Abdominal, Adenoidectomy, Amputation, Orthopedic, Tonsillectomy, Vascular Surgery Respiratory History of Respiratory Disorde: Yes Respiratory Disorders: Pulmonary Embolism Cardiovascular History of Cardiac Disorders: Yes (VENA CAVA FILTER IN PLACE--DVT'S AND PE'S. 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 Genitourinary History of Genitourinary Disor: No Gastrointestinal History of Gastrointestinal Di: Yes (dysphagia; HERNIA REPAIR X 5) Gastrointestinal Disorders: Abdominal Hernia, Gastroesophageal Reflux Musculoskeletal History of Musculoskeletal Dis: Yes (RIGHT GREAT TOE AMPUTATION, MULTIPLE ORTHO SURGERIES) Musculoskeletal Disorders: Amputee, Degenerate Disk Disease, Arthritis, Scoliosis Endocrine History of Endocrine Disorders: Yes Endocrine Disorders: Hypothyroidsim, Diabetes, Non-Insulin dep HEENT History of HEENT Disorders: Yes Loss of Vision: Bilateral Hearing Impairment: Denies Cancer History of Cancer: No Psychosocial History of Psychiatric Problem: Yes Behavioral Health Disorders: Anxiety, Depression Integumentary History of Skin or Integumenta: Yes (Chronic diabetic foot ulcers; OSTEOMYELITIS) Blood Transfusions History of Blood Disorders: No Adverse Reaction to a Blood Tr: No (N/A) Family Medical History Significant Family History: Heart Disease, Cancer (Mother had breast cancer), Diabetes, Psychiatric Problems Other PAST SURGICAL HISTORY: -TONSILLECTOMY AND ADENOIDECTOMY -BLADDER SLING -BILATERAL CARPAL TUNNEL -BILATERAL ELBOW SURGERY -RIGHT SHOULDER SCOPE X 2 -RIGHT ROTATOR CUFF REPAIR -HERNIA SURGERY X 5 -VENA CAVA FILTER PLACEMENT -RIGHT FOOT SURGERY X 2 -RIGHT GREAT TOE AMPUTATION 03/2022. Family Medial History: Colon cancer requiring screening colonoscopy Review of Systems-General Constitutional: No chills, No diaphoresis EENTM: No hearing loss Respiratory: No cough, No dyspnea on exertion Cardiovascular: No chest pain, No syncope Gastrointestinal: No abdominal pain; heartburn Genitourinary: No decreased output, No discharge Musculoskeletal: No back pain, No joint pain Skin: No change in color, No change in hair/nails Psychiatric/Neurological: Denies Anxiety, Denies Depressed All Other Systems Reviewed Negative Unless Noted: Yes Physical Exam-General Problems Physical Exam Vital Signs Vital Signs - First Documented 08/02/22 08/02/22 08/02/22 08/03/22 20:00 22:02 22:21 08:57 Temp 37.8 Pulse 96 Resp 18 B/P (MAP) 85/53 (64) Pulse Ox 100 O2 Delivery Room Air O2 Flow Rate 0.00 FiO2 21 Capillary Refill : Less Than 3 Seconds General Appearance: WD/WN, no apparent distress Eyes: Bilateral Eye Normal Inspection, Bilateral Eye EOMI HEENT: PERRL/EOMI; No scleral icterus (R), No scleral icterus (L) Neck: non-tender, full range of motion Respiratory: chest non-tender, other (Diminshed breath sounds of left lower lobe) Cardiovascular: regular rate, rhythm, no murmur Peripheral Pulses: 2+ Radial Pulses (R), 2+ Radial Pulses (L) Gastrointestinal: non tender, soft Rectal: deferred Back: no CVA tenderness, no vertebral tenderness; No CVA tenderness (R) Extremities: normal range of motion, non-tender Neurologic/Psychiatric: alert, normal mood/affect, oriented x 3 Skin: normal color, warm/dry, other (Skin of right ankle indurated and erythematous. Ulcer of right foot 1 cm x 2 cm, and on plantar surface of left great toe 1 cm x 1 cm) Lymphatic: no adenopathy Data Review Labs Laboratory Tests 08/03/22 10:39: Glucometer 133H 08/03/22 15:13: Glucometer 233H 08/03/22 20:44: Glucometer 182H 08/04/22 05:39: Glucometer 118H 08/04/22 06:10: Microbiology 08/02/22 MRSA Screen - Final, Complete MRSA not isolated 08/02/22 Urine Culture - Preliminary, Resulted NO GROWTH Radiology FOOT, BILATERAL, 3 VIEW INDICATION: Sepsis. Bilateral foot ulcers. COMPARISON: 06/27/2022. FINDINGS: RIGHT FOOT: Multiple radiographic views of the right foot were obtained. Patient is status post interval amputation of the great toe. There is prominent osteolytic process to the distal margins of the 1st metatarsal consistent with probable osteomyelitis. There is also soft tissue defect involving the distal tip of the 2nd toe with underlying osteolytic appearance to the tuft of the distal phalanx. Generalized soft tissue swelling is also noted. No unexpected radiopaque foreign bodies are seen. LEFT FOOT: Multiple radiographic views of the left foot were also obtained. There appears to be soft tissue defect of the medial margins of the great toe with generalized soft tissue swelling. There is a longitudinally oriented fracture extending through the distal and medial portions of the proximal phalanx with intra-articular extension. Findings are suggestive of acute fracture. Otherwise, no definite osteolytic process is seen. Evaluation of the remainder of the left foot again demonstrates nonhealed fracture of the 5th metatarsal. This is stable compared to 06/27/2022. No unexpected radiopaque foreign bodies are seen. IMPRESSION: 1. Osteolytic process to the distal portion of the right 1st metatarsal and right 2nd distal phalanx. Findings are strongly suggestive of underlying osteomyelitis. 2. New acute appearing fracture of the 1st proximal phalanx of the left foot. 3. Redemonstration of nonhealed fracture of the left 5th metatarsal. Assessment/Plan Assessment/Plan Assessment/Plan Osteomyelitis of right foot (1st metatarsal and 2nd distal phalanx) Ulceration of right foot plantar surface and left plantar surface of great toe Sepsis secondary to UTI or foot infections. UTI Uncontrolled Type II diabetes-non compliant Bilateral non-traumatic foot fractures-one acute/ one non healed fracture Continue IV antibiotics and monitor for signs of improvement. Wound culture acquired-awaiting results. Insulin as needed, maintain tight glycemic control. Monitor labs Consult orthopedics on fractures Discuss possible surgery with patient Clinical Quality Measures DVT/VTE Risk/Contraindication: VTE Addressed: Yes VTE Present on Admission: No Contraindications-Mechi: Other *list below* Other: leg cellulitis GILBERTO FONSECA Aug 04, 2022 06:47
[2022-08-04 06:52] LABS: BASOPHILS # (AUTO) 0.1 10^3/uL (0.0-0.1); BASOPHILS % (AUTO) 1 % (0-10); EOSINOPHILS # (AUTO) 0.2 10^3/uL (0.0-0.3); EOSINOPHILS % (AUTO) 1 % (0-10); HEMATOCRIT 28 % (35-52); LYMPHOCYTES # (AUTO) 2.6 10^3/uL (1.0-4.0); LYMPHOCYTES % (AUTO) 18 % (12-44); MEAN CORPUSCULAR HEMOGLOBIN 27 pg (25-34); MEAN CORPUSCULAR HGB CONC 32 g/dL (32-36); MEAN CORPUSCULAR VOLUME 85 fL (80-99); MEAN PLATELET VOLUME 8.8 fL (9.0-12.2); MONOCYTES # (AUTO) 1.3 10^3/uL (0.0-1.0); MONOCYTES % (AUTO) 9 % (0-12); NEUTROPHILS # (AUTO) 10.1 10^3/uL (1.8-7.8); NEUTROPHILS % (AUTO) 70 % (42-75); PLATELET COUNT 477 10^3/uL (130-400); WHITE BLOOD COUNT 14.5 10^3/uL (4.3-11.0)
[2022-08-04 07:07] VITALS: BP 113/65
[2022-08-04 07:15] LABS: ALBUMIN 2.5 GM/DL (3.2-4.5); BILIRUBIN,TOTAL 0.2 MG/DL (0.1-1.0); CALCIUM 8.4 MG/DL (8.5-10.1); CREATININE SERUM 0.77 MG/DL (0.60-1.30); MAGNESIUM 1.8 MG/DL (1.6-2.4); POTASSIUM 3.8 MMOL/L (3.6-5.0); TOTAL PROTEIN 6.3 GM/DL (6.4-8.2)
[2022-08-04] MEDS: RT-ALBUTEROL/IPRATROPIUM 3 ML (DUONEB) VIAL INH SCH ×3 (07:59→19:19)
[2022-08-04] MEDS: ACETAMINOPHEN 325 MG TABLET PO PRN ×2 (09:34→19:50)
[2022-08-04] MEDS: DOCUSATE SODIUM 100 MG (COLACE) CAP PO SCH ×2 (09:36→19:51)
[2022-08-04] MEDS: SENNOSIDES 8.6 MG (SENOKOT) TAB PO SCH ×2 (09:36→19:52)
[2022-08-04] MEDS: PANTOPRAZOLE 40 MG (PROTONIX) TAB PO SCH (09:36)
[2022-08-04] MEDS: MIDODRINE 10 MG (PROAMATINE) TAB PO SCH ×3 (09:36→19:51)
[2022-08-04 11:19] VITALS: BP 117/57
--- NOTE | 2022-08-04 12:05 | Progress Note - Surgery ---
GILBERTO FONSECA 08/04/22 1205: Subjective Date Seen by a Provider: Aug 04, 2022 Time Seen by a Provider: 12:01 Subjective/Events-last exam Consult requested by Dr. Sawyer for osteomyelitis. As of today 08-04-2022 she is resting in bed comfortably with no pain. She has been eating and drinking well. Bowel movements and bladder are active. Denies any SOB, fever, diarrhea, or chills. Denies any pain in her feet or toes upon palpation. No other complaints at this time. Labs reviewed. She state her right foot ulcer has been draining for 2 weeks and her left foot ulcer has been draining with purulence for 1 year. All the while she was having it managed by wound care. Was told by Dr. Elam that it would not heal and to on longer pack it. Focused Exam Lactate Level 08/02/22 20:11: Lactic Acid Level 2.62*H 08/02/22 22:10: Lactic Acid Level 3.00*H 08/03/22 00:30: Lactic Acid Level 1.98 Objective Exam Vital Signs Date Time Temp Pulse Resp B/P (MAP) Pulse Ox O2 Delivery O2 Flow Rate FiO2 08/04/22 11:19 36.9 89 18 117/57 (77) 95 Room Air 08/04/22 08:02 98 Room Air 08/04/22 07:07 36.4 81 18 113/65 (81) 93 Room Air 08/04/22 04:07 36.4 81 16 104/64 (77) 95 Room Air 08/04/22 00:00 37.0 82 16 106/61 (76) 97 Room Air 08/03/22 20:20 Room Air 0.00 08/03/22 19:48 97 Room Air 08/03/22 19:17 36.5 88 18 102/76 (85) 96 Room Air 0.00 0.00 08/03/22 15:08 36.8 88 20 105/47 (66) 98 Room Air 0.00 0.00 08/03/22 15:07 98 Room Air 0.00 08/03/22 13:07 37.0 87 18 114/52 (72) 98 Room Air 08/03/22 12:55 36.2 86 95 21 I & O 08/04/22 07:00 Intake Total 1410 ml Output Total 400 ml Balance 1010 ml Capillary Refill : Less Than 3 Seconds General Appearance: No Apparent Distress, WD/WN, Chronically ill, Obese HEENT: PERRL/EOMI; No Scleral Icterus (L), No Scleral Icterus (R) Neck: Full Range of Motion, Normal Inspection, Non Tender, Supple; No Carotid Bruit, No JVD Respiratory: Chest Non Tender, No Accessory Muscle Use, No Respiratory Distress, Wheezing (Minor wheezes noted bilaterally) Cardiovascular: No Edema, No JVD, Normal Peripheral Pulses (Radial and dorsalis pedis) Peripheral Pulses: 2+ Radial Pulses (R), 2+ Radial Pulses (L) Gastrointestinal: non tender, soft Extremity: Normal Range of Motion, No Calf Tenderness, Inflammation (Right foot is red and inflammed. Left foot also shows minor redness and warmth.), Swelling Neurologic/Psychiatric: Alert, Oriented x3, No Motor/Sensory Deficits, Normal Mood/Affect Skin: Normal Color, Warm/Dry, Erythema (Of both feet with more severe erythema in right foot), Other (Circular ulcer noted on right distal phalanx of 2nd toe. Pitted ulcer of left great toe. 1 cm x 1 cm. Skin over right ankle is indurated and erythematous. ) Results Lab Laboratory Tests 08/03/22 15:13: Glucometer 233H 08/03/22 20:44: Glucometer 182H 08/04/22 05:39: Glucometer 118H 08/04/22 06:10: White Blood Count 14.5H, Red Blood Count 3.34L, Hemoglobin 9.0L, Hematocrit 28L, Mean Corpuscular Volume 85, Mean Corpuscular Hemoglobin 27, Mean Corpuscular H emoglobin Concent 32, Red Cell Distribution Width 16.1H, Platelet Count 477H, Mean Platelet Volume 8.8L, Immature Granulocyte % (Auto) 1, Neutrophils (%) (Auto) 70, Lymphocytes (%) (Auto) 18, Monocytes (%) (Auto) 9, Eosinophils (%) (Auto) 1, Basophils (%) (Auto) 1, Neutrophils # (Auto) 10.1H, Lymphocytes # (Auto) 2.6, Monocytes # (Auto) 1.3H, Eosinophils # (Auto) 0.2, Basophils # (Auto) 0.1, Immature Granulocyte # (Auto) 0.1, Sodium Level 141, Potassium Level 3.8, Chloride Level 110H, Carbon Dioxide Level 19L, Anion Gap 12, Blood Urea Nitrogen 8, Creatinine 0.77, Estimat Glomerular Filtration Rate 90, BUN/Creatini ne Ratio 10, Glucose Level 110H, Calcium Level 8.4L, Corrected Calcium 9.6, Magnesium Level 1.8, Total Bilirubin 0.2, Aspartate Amino Transf (AST/SGOT) 23, Alanine Aminotransferase (ALT/SGPT) 18, Alkaline Phosphatase 111, Total Protein 6.3L, Albumin 2.5L 08/04/22 10:59: Glucometer 198H Microbiology 08/02/22 MRSA Screen - Final, Complete MRSA not isolated 08/02/22 Urine Culture - Final, Complete YEAST Gram Pos Mixed Bacterial Erica 08/02/22 Gram Stain - Final, Resulted 08/02/22 Wound Culture, Resulted Pending 08/02/22 Blood Culture - Preliminary, Resulted No growth Assessment/Plan Assessment/Plan Assessment/Plan Osteomyelitis of right foot (1st metatarsal and 2nd distal phalanx) Ulceration of right foot plantar surface and left plantar surface of great toe Sepsis secondary to UTI or foot infections. UTI Uncontrolled Type II diabetes-non compliant Bilateral non-traumatic foot fractures-one acute/ one non healed fracture Continue IV antibiotics and monitor for signs of improvement. Wound culture acquired-awaiting results. Insulin as needed, maintain tight glycemic control. Monitor labs Consult orthopedics on fractures Discuss possible surgery with patient Clinical Quality Measures DVT/VTE Risk/Contraindication: VTE Addressed: Yes VTE Present on Admission: No Contraindications-Mechi: Other *list below* Other: leg cellulitis LUCILA HORTON DO 08/04/22 1525: Subjective Subjective/Events-last exam Patient with wounds to the left great toe and plantar surface of the right foot. Patient with drainage from the wounds of purulent material. She states that the erythema on the right foot has worsened and more swelling. Patient has had the wound on the left foot for almost a year she states. The right foot has been draining for approximately 2 weeks. She has been to wound care previously. She has had a previous amputations which she understands. She also understands wound care. She wants to get these taken care of. She is diabetic which her blood sugars have not been that well under control recently. She has been trying to get them better. Currently denies any nausea vomiting fever sweats chills shortness of breath or chest pain. Objective Exam General Appearance: No Apparent Distress, Chronically ill, Obese HEENT: PERRL/EOMI, Normal ENT Inspection Neck: Normal Inspection Respiratory: Chest Non Tender, No Accessory Muscle Use, No Respiratory Distress Cardiovascular: Regular Rate, Rhythm, No JVD Gastrointestinal: non tender, soft Extremity: Normal Range of Motion, Inflammation (Right foot is red and inflammed. Left foot also shows minor redness and warmth.), Swelling Neurologic/Psychiatric: Alert, Oriented x3, Sensory Deficit (feet) Skin: Warm/Dry, Erythema (Of both feet with more severe erythema in right foot), Other (Circular ulcer noted on right distal phalanx of 2nd toe. Pitted ulcer of left great toe. 1 cm x 1 cm. Skin over right ankle is indurated and erythematous. purulent drainage of ulcers) Lymphatic: No Adenopathy Assessment/Plan Assessment/Plan Assessment/Plan Osteomyelitis of right foot (1st metatarsal and 2nd distal phalanx) and left great toe Ulceration of right foot plantar surface and left plantar surface of great toe Sepsis secondary to UTI or foot infections. UTI Uncontrolled Type II diabetes-non compliant Bilateral non-traumatic foot fractures-one acute/ one non healed fracture Continue IV antibiotics and monitor for signs of improvement. Wound culture acquired-awaiting results. Insulin as needed, maintain tight glycemic control. Monitor labs I feel due to purulent drainage of wounds and chronicity the patient has osteo of both right and left feet as above. She was discussed operative and nonoperative mangement and goals of treatment. She wishes to proceed with left great toe amputation and right partial ray 1st amputation and 2nd toe amputation all other indicated procedures, may need debridement as well. She and family understands risks and benefits along with family npo after midnight need wound care postoperatively consent to or tomorrow Supervisory-Addendum Brief Verification & Attestation Participated in pt care: history, MDM, physical Personally performed: exam, history, MDM, supervision of care Care discussed with: Medical Student Procedures: n/a Results interpretation: Verified all documentation Verification and Attestation of Medical Student E/M Service A medical student performed and documented this service in my presence. I reviewed and verified all information documented by the medical student and made modifications to such information, when appropriate. I personally performed the physical exam and medical decision making. Lucila Horton, Aug 04, 2022,15:32 GILBERTO FONSECA Aug 04, 2022 12:05 LUCILA HORTON DO Aug 04, 2022 15:25
[2022-08-04] MEDS ORDERED: TROUGH ORDER-PHARMACY XX ONE (19:00)
[2022-08-04] MEDS: ENOXAPARIN 40 MG/0.4 ML (LOVENOX) SYR SC SCH (19:20)
[2022-08-04 19:28] VITALS: BP_SYST 125; BP_SYST 162; BP_DIAS 72; BP_DIAS 76
[2022-08-04] MEDS: VANCOMYCIN 1 GM/NS 250 ML IVPB IV SCH ×2 (19:50)
[2022-08-04] MEDS: MELATONIN 3 MG TABLET PO PRN (21:16)
[2022-08-04] MEDS: ONDANSETRON 4 MG/2 ML (SDV) Z0FRAN IV PRN (22:03)
[2022-08-04] MEDS: ANTACID SUSP 30 ML UDC (MYLANTA) PO PRN (22:03)
[2022-08-04 23:08] VITALS: BP 107/56
[2022-08-05] VITALS (11 sets, daily range): BP systolic 116–170; BP diastolic 57–84
[2022-08-05] MEDS: PIPERACILLIN SODIUM/TAZOBACTAM 4.5 GM in NS (IVPB) 100 ML IV SCH ×3 (02:06→17:47)
[2022-08-05 06:24] LABS: BASOPHILS # (AUTO) 0.1 10^3/uL (0.0-0.1); BASOPHILS % (AUTO) 1 % (0-10); EOSINOPHILS # (AUTO) 0.3 10^3/uL (0.0-0.3); EOSINOPHILS % (AUTO) 2 % (0-10); HEMATOCRIT 31 % (35-52); HEMOGLOBIN 9.6 g/dL (11.5-16.0); LYMPHOCYTES # (AUTO) 2.7 10^3/uL (1.0-4.0); LYMPHOCYTES % (AUTO) 19 % (12-44); MEAN CORPUSCULAR HEMOGLOBIN 26 pg (25-34); MEAN CORPUSCULAR HGB CONC 31 g/dL (32-36); MEAN CORPUSCULAR VOLUME 84 fL (80-99); MEAN PLATELET VOLUME 8.8 fL (9.0-12.2); MONOCYTES # (AUTO) 0.9 10^3/uL (0.0-1.0); MONOCYTES % (AUTO) 6 % (0-12); NEUTROPHILS # (AUTO) 9.8 10^3/uL (1.8-7.8); NEUTROPHILS % (AUTO) 71 % (42-75); PLATELET COUNT 546 10^3/uL (130-400); WHITE BLOOD COUNT 13.9 10^3/uL (4.3-11.0)
[2022-08-05 06:43] LABS: ALBUMIN 2.7 GM/DL (3.2-4.5); BILIRUBIN,TOTAL 0.2 MG/DL (0.1-1.0); CALCIUM 8.7 MG/DL (8.5-10.1); CREATININE SERUM 0.71 MG/DL (0.60-1.30); MAGNESIUM 1.6 MG/DL (1.6-2.4); POTASSIUM 3.9 MMOL/L (3.6-5.0); TOTAL PROTEIN 6.9 GM/DL (6.4-8.2)
[2022-08-05] MEDS: inSUlin ASPART (NovoLOG) 1 UNIT/0.01 ML (CHARGE PER UNIT) SC SCH ×4 (06:52→20:43)
--- NOTE | 2022-08-05 07:05 | Progress Note - Surgery ---
GILBERTO FONSECA 08/05/22 0705: Subjective Date Seen by a Provider: Aug 05, 2022 Time Seen by a Provider: 11:00 Subjective/Events-last exam Patient is lying in bed comfortably Had surgical shower this morning Has no new complaints at this time Labs reviewed Has agreed to surgery and is planned to be performed today 08-05-2022 Focused Exam Lactate Level 08/02/22 20:11: Lactic Acid Level 2.62*H 08/02/22 22:10: Lactic Acid Level 3.00*H 08/03/22 00:30: Lactic Acid Level 1.98 Objective Exam Vital Signs Date Time Temp Pulse Resp B/P (MAP) Pulse Ox O2 Delivery O2 Flow Rate FiO2 08/05/22 04:15 36.3 79 18 116/69 (85) 92 Room Air 08/04/22 23:08 36.6 81 16 107/56 (73) 97 Room Air 08/04/22 19:55 Room Air 08/04/22 19:28 37.0 85 18 125/72 (89) 97 Room Air 08/04/22 19:22 99 Room Air 08/04/22 15:38 36.2 84 20 97 Room Air 08/04/22 11:19 36.9 89 18 117/57 (77) 95 Room Air 08/04/22 08:02 98 Room Air 08/04/22 08:00 Room Air 08/04/22 07:07 36.4 81 18 113/65 (81) 93 Room Air I & O 08/05/22 07:00 Intake Total 1660 ml Balance 1660 ml Capillary Refill : Less Than 3 Seconds General Appearance: No Apparent Distress, Chronically ill, Obese HEENT: PERRL/EOMI, Normal ENT Inspection Neck: Normal Inspection, Supple Respiratory: Chest Non Tender, No Accessory Muscle Use, No Respiratory Distress Cardiovascular: Regular Rate, Rhythm, No JVD Peripheral Pulses: 2+ Radial Pulses (R), 2+ Radial Pulses (L) Gastrointestinal: non tender, soft Extremity: Normal Range of Motion, Inflammation (Right foot is red and inflammed. Left foot also shows minor redness and warmth.), Swelling Neurologic/Psychiatric: Alert, Oriented x3, Sensory Deficit (feet) Skin: Warm/Dry, Erythema (Of both feet with more severe erythema in right foot), Other (Circular ulcer noted on right distal phalanx of 2nd toe. Pitted ulcer of left great toe. 1 cm x 1 cm. Skin over right ankle is indurated and erythematous. purulent drainage of ulcers) Lymphatic: No Adenopathy Results Lab Laboratory Tests 08/04/22 10:59: Glucometer 198H 08/04/22 15:20: Glucometer 145H 08/04/22 19:05: Vancomycin Level Trough 4.2L 08/04/22 20:11: Glucometer 162H 08/05/22 05:26: White Blood Count 13.9H, Red Blood Count 3.68L, Hemoglobin 9.6L, Hematocrit 31L, Mean Corpuscular Volume 84, Mean Corpuscular Hemoglobin 26, Mean Corpuscular Hemoglobin Concent 31L, Red Cell Distribution Width 16.0H, Platelet Count 546H, Mean Platelet Volume 8.8L, Immature Granulocyte % (Auto) 1, Neutrophils (%) (Auto) 71, Lymphocytes (%) (Auto) 19, Monocytes (%) (Auto) 6, Eosinophils (%) (Auto) 2, Basophils (%) (Auto) 1, Neutrophils # (Auto) 9.8H, Lymphocytes # (Auto) 2.7, Monocytes # (Auto) 0.9, Eosinophils # (Auto) 0.3, Basophils # (Auto) 0.1, Immature Granulocyte # (Auto) 0.2H, Sodium Level 139, Potassium Level 3.9, Chloride Level 108H, Carbon Dioxide Level 18L, Anion Gap 13, Blood Urea Nitrogen 5L, Creatinine 0.71, Estimat Glomerular Filtration Rate 99, BUN/Creatinine Ratio 7, Glucose Level 115H, Calcium Level 8.7, Corrected Calcium 9.7, Magnesium Level 1.6, Total Bilirubin 0.2, Aspartate Amino Transf (AST/SGOT) 23, Alanine Aminotransferase (ALT/SGPT) 18, Alkaline Phosphatase 118, Total Protein 6.9, Albumin 2.7L Microbiology 08/02/22 MRSA Screen - Final, Complete MRSA not isolated 08/02/22 Urine Culture - Final, Complete YEAST Gram Pos Mixed Bacterial Erica 08/02/22 Gram Stain - Final, Resulted 08/02/22 Wound Culture - Preliminary, Resulted Mixed Bacterial Erica Staphylococcus aureus Strep, Beta Hemolytic Group C Streptococcus canis 08/02/22 Blood Culture - Preliminary, Resulted No growth Assessment/Plan Assessment/Plan Assessment/Plan Osteomyelitis of right foot (1st metatarsal and 2nd distal phalanx) and left foot (left great toe) Ulceration of right foot plantar surface and left plantar surface of great toe Sepsis secondary to UTI or foot infections. UTI Uncontrolled Type II diabetes-non compliant Bilateral non-traumatic foot fractures-one acute/ one non healed fracture- Continue IV antibiotics and monitor for signs of improvement. Wound culture acquired - growing Staphylococcus aureus, STREP, BETA HEMOLYTIC GROUP C, Streptococcus canis Insulin as needed, maintain tight glycemic control. Monitor labs Still NPO Will need wound care postoperatively Consent needed-patient has agreed Plan for surgery (amputation) this morning She was discussed operative and nonoperative mangement and goals of treatment. She wishes to proceed with left great toe amputation and right partial ray 1st amputation and 2nd toe amputation all other indicated procedures, may need debridement as well. She and family understands risks and benefits along with family Clinical Quality Measures DVT/VTE Risk/Contraindication: VTE Addressed: Yes VTE Present on Admission: No Contraindications-Mechi: Other *list below* Other: leg cellulitis LUCILA HILL DO 08/05/22 0911: Subjective Subjective/Events-last exam Still with drainage from both feet. No new symptoms. WBC elevated at 13.9. Denies n/v fever sweats chills shortness of breath or chest pain. NPO. Ready for surgery this morning. Objective Exam General Appearance: Chronically ill, Obese HEENT: PERRL/EOMI, Normal ENT Inspection Neck: Normal Inspection, Supple Respiratory: Chest Non Tender, No Accessory Muscle Use, No Respiratory Distress Cardiovascular: Regular Rate, Rhythm, No JVD Gastrointestinal: non tender, soft Extremity: Inflammation (Right foot is red and inflammed. Left foot also shows minor redness and warmth.), Swelling Neurologic/Psychiatric: Alert, Oriented x3, Sensory Deficit (feet) Skin: Warm/Dry, Erythema (Of both feet with more severe erythema in right foot), Other (Circular ulcer noted on right distal phalanx of 2nd toe. Pitted ulcer of left great toe. 1 cm x 1 cm. Skin over right ankle is indurated and erythematous. purulent drainage of ulcers) Lymphatic: No Adenopathy Assessment/Plan Assessment/Plan Assessment/Plan Osteomyelitis of right foot (1st metatarsal and 2nd distal phalanx) and left foot (left great toe) Ulceration of right foot plantar surface and left plantar surface of great toe Sepsis secondary to UTI or foot infections. UTI Uncontrolled Type II diabetes-non compliant Bilateral non-traumatic foot fractures-one acute/ one non healed fracture- Continue IV antibiotics and monitor for signs of improvement. Wound culture acquired - growing Staphylococcus aureus, STREP, BETA HEMOLYTIC GROUP C, Strepto coccus canis Insulin as needed, maintain tight glycemic control. Monitor labs Still NPO Will need wound care postoperatively Consent obtainedpatient has agreed Plan for surgery this morning She was discussed operative and nonoperative mangement and goals of treatment. She wishes to proceed with left great toe amputation and right partial ray 1st amputation and 2nd toe amputation all other indicated procedures, may need debridement as well. She and family understands risks and benefits along with family Supervisory-Addendum Brief Verification & Attestation Participated in pt care: history, MDM, physical Personally performed: exam, history, MDM, supervision of care Care discussed with: Medical Student Procedures: n/a Results interpretation: Verified all documentation Verification and Attestation of Medical Student E/M Service A medical student performed and documented this service in my presence. I reviewed and verified all information documented by the medical student and made modifications to such information, when appropriate. I personally performed the physical exam and medical decision making. Lucila Hill, Aug 05, 2022,09:11 GILBERTO FONSECA Aug 05, 2022 07:05 LUCILA HILL DO Aug 05, 2022 09:11
[2022-08-05] MEDS: RT-ALBUTEROL/IPRATROPIUM 3 ML (DUONEB) VIAL INH SCH ×2 (07:34→14:58)
[2022-08-05] MEDS ORDERED: LIDOCAINE/EPI 1%-1:100,000 (XYLOCAINE) 10 ML ONE ×2 (08:20→08:21)
[2022-08-05] MEDS: VANCOMYCIN 1 GM/NS 250 ML IVPB IV SCH ×4 (08:26→20:44)
[2022-08-05] MEDS: DOCUSATE SODIUM 100 MG (COLACE) CAP PO SCH ×2 (08:31→21:44)
[2022-08-05] MEDS: MIDODRINE 10 MG (PROAMATINE) TAB PO SCH ×3 (08:31→20:42)
[2022-08-05] MEDS ORDERED: proPOfol 200 MG/20 ML (DIPRIVAN) VIAL IV ONE (08:32)
[2022-08-05] MEDS ORDERED: SEVOFLURANE (ULTANE) 15 ML INHAL SOLN ONE ×2 (08:32→09:59)
[2022-08-05] MEDS: PANTOPRAZOLE 40 MG (PROTONIX) TAB PO SCH (08:32)
[2022-08-05] MEDS: SENNOSIDES 8.6 MG (SENOKOT) TAB PO SCH ×2 (08:32→21:44)
[2022-08-05] MEDS ORDERED: LIDOCAINE PF 2% 5 ML (XYLOCAINE) VIAL ONE (08:32)
[2022-08-05] MEDS ORDERED: ONDANSETRON 4 MG/2 ML (SDV) Z0FRAN ONE (08:32)
[2022-08-05] MEDS ORDERED: fentaNYL INJ 100 MCG/2 ML AMP ONE (08:33)
[2022-08-05] MEDS ORDERED: MIDAZOLAM 2 MG/2 ML (VERSED) VIAL ONE (08:33)
[2022-08-05] MEDS ORDERED: LACTATED RINGERS 1,000 ML IV PRN (08:45)
[2022-08-05] MEDS ORDERED: PHENYLEPHRINE 100 MCG/ML 10 ML (ANESTHESIA) SYR ONE (09:03)
--- NOTE | 2022-08-05 10:23 | Anesthesia-General Post-Op ---
General Patient Condition Mental Status/LOC: Same as Preop Cardiovascular: Satisfactory Nausea/Vomiting: Absent Respiratory: Satisfactory Pain: Controlled Complications: Absent Post Op Complications Complications None Follow Up Care/Instructions Patient Instructions None needed. Anesthesia/Patient Condition Patient Condition Patient is doing well, no complaints, stable vital signs, no apparent adverse anesthesia problems. No complications reported per nursing. D/C home per [facility] [place] Criteria: Yes RAJWINDER LOU CRNA Aug 05, 2022 10:22
[2022-08-05] MEDS ORDERED: ONDANSETRON 4 MG/2 ML (SDV) Z0FRAN IVP PRN (10:30)
[2022-08-05] MEDS ORDERED: HYDROmorphone 2 MG/ML VIAL (DILAUDID) IV NR (10:30)
--- NOTE | 2022-08-05 17:08 | OPERATIVE REPORT ---
DATE OF SERVICE: 08/05/2022 PREOPERATIVE DIAGNOSES: Osteomyelitis of the right foot first metatarsal and second distal phalanx and left foot great toe, ulceration of the right foot plantar surface. POSTOPERATIVE DIAGNOSES: Osteomyelitis of the right foot first metatarsal and second distal phalanx and left foot great toe, ulceration of the right foot plantar surface. Right metatarsal head abscess. PROCEDURES: Bilateral ankle block, left great toe amputation, right first partial ray amputation and second toe amputation, debridement of right foot ulcer 2 x 2 cm of skin, subcutaneous tissue and tendon. ANESTHESIA: General. ESTIMATED BLOOD LOSS: Minimal. SURGEON: Dr. Hill. COMPLICATIONS: None. INDICATIONS: The patient is a 57-year-old female with osteomyelitis of the left great toe suspected and right metatarsal head and distal portion of the second toe of the right foot. She also has an ulcer on the right foot and one on the left great toe, which have been having purulent drainage. The left great toe has been there for over a year of drainage. The patient understood risks and benefits of procedure and wishes to proceed. Consent was signed on chart. DESCRIPTION OF PROCEDURE: The patient is taken to the operating suite. She was prepped and draped in sterile fashion. Timeout was performed and bilateral ankle block was performed injecting the medial and lateral aspects of the ankle posteriorly for nerve block and also fanning local anesthetic over the dorsum of the foot. This was done on both the right and left foot. At this time, a 15 blade scalpel was used to make an incision around the left great toe. Cautery was used to dissect down through the subcutaneous tissues and down to the metatarsal head, which was intact and no evidence of any osteomyelitis of the metatarsal head. The great toe was then able to be removed in its entirety. Scaphoid bone present, which had irregularities and was dissected out and removed as well. Hemostasis was achieved. Copious amounts of irrigation was used to irrigate and wound was then packed with iodoform. The right foot incision was made encompassing the right second toe and then the skin and subcutaneous tissues over the first metatarsal head, which dissected down through this area. Purulent pocket was hit which drained. A culture was obtained. The second toe was then dissected around it with cautery, achieving hemostasis, removing from the second metatarsal head. The second metatarsal head had normal appearance. Cautery was used to start to mobilize the first metatarsal head, which had ostium appearance to it, went back on the first metatarsal bone proximally to healthy appearing bone, which then bone saw was used to amputate it. This was then removed. The wound was then irrigated with copious amounts of irrigation. Hemostasis was achieved and then this was packed with iodoform gauze. Sterile bandages were applied. The patient tolerated the procedure well without any complications. She was taken to the recovery room in stable condition. Job ID: [id number] DocumentID: [id number] Dictated Date: 08/05/2022 13:11:08 Media Sales Consultant Date: 08/05/2022 17:06:00 Dictated By: LUCILA HILL DO
[2022-08-05] MEDS ORDERED: LEVOTHYROXINE 50 MCG (LEVOTHROID) TAB PO ONE (17:15)
--- NOTE | 2022-08-05 18:21 | Progress Note - Hospitalist ---
Subjective HPI/CC On Admission Date Seen by Provider: Aug 05, 2022 Time Seen by Provider: 17:30 CC: Bilateral foot pain with redness HPI: This is a 57 yr old female with very complicated issues. Including diabetes out of control and previous amputations of the toe. She presented to the ER with fever. She was found to have bilateral osteomyelitis of the feet. She was placed on Zosyn and Vancomycin. IV fluids were given for hypotension that was not due to severe sepsis. She was given IV fluids but Midodrine was started due to chronic orthostasis. Subjective/Events-last exam Patient reports no pain postop day 1 status post left great toe amputation for osteomyelitis. She is feeling jittery on breathing treatments which she does not take reports she quit smoking in March and has not been on bronchodilator or anti-inflammatory therapy you denying asthma or shortness of breath. She denies sputum production night sweats chills or fever. Focused Exam Lactate Level 08/02/22 20:11: Lactic Acid Level 2.62*H 08/02/22 22:10: Lactic Acid Level 3.00*H 08/03/22 00:30: Lactic Acid Level 1.98 Objective Exam Vital Signs Vital Signs Date Time Temp Pulse Resp B/P (MAP) Pulse Ox O2 Delivery O2 Flow Rate FiO2 08/05/22 16:00 36.5 90 21 128/57 (80) 97 Room Air 08/05/22 10:40 10.00 08/03/22 12:55 21 Capillary Refill : Less Than 3 Seconds General Appearance: No Apparent Distress, Obese Respiratory: Chest Non Tender, Lungs Clear, Normal Breath Sounds, No Accessory Muscle Use, No Respiratory Distress Cardiovascular: Regular Rate, Rhythm, No Edema, No Gallop, No JVD, No Murmur, Normal Peripheral Pulses Gastrointestinal: Normal Bowel Sounds, No Organomegaly, No Pulsatile Mass, Non Tender, Soft Extremity: Other (No significant lower extremity edema small amount of blood on the left wrapped foot none on the right) Results/Procedures Lab Laboratory Tests 08/05/22 05:26 Patient resulted labs reviewed. Procedures Wound cultures acquired. Vashe applied to wound site as well as aquasil dressing. Assessment/Plan Assessment and Plan Assess & Plan/Chief Complaint 1. Postop day 1 status post left great toe amputation with history of bilateral osteo-osteo and right great toe amputation in March with extension of amputation on this hospitalization. No evidence for septicemia no pain due to underlying diabetic related peripheral neuropathy. Continue current antibiotics. I did discuss with the patient that 2 of the 3 bacteria grown from the wound are most frequently found in the mouth of dogs. She owns to chew wall loss and while she denies that they nipped at her she probably would not know due to lack of sensation. Discussed the importance of wearing shoes/slippers in the house at all times as well as shoes outdoors 2. Type 2 diabetes with severe peripheral neuropathy blood sugar control has been reasonable. Clinical Quality Measures DVT/VTE Risk/Contraindication: VTE Addressed: Yes VTE Present on Admission: No Contraindications-Mechi: Other *list below* Other: leg cellulitis SURYA RDZ MD Aug 05, 2022 18:21
[2022-08-05] MEDS ORDERED: RT-ALBUTEROL/IPRATROPIUM 3 ML (DUONEB) VIAL INH PRN (18:30)
[2022-08-05] MEDS: ENOXAPARIN 40 MG/0.4 ML (LOVENOX) SYR SC SCH (22:10)
[2022-08-05] MEDS ORDERED: LEVOTHYROXINE 50 MCG (LEVOTHROID) TAB ONE (22:14)
[2022-08-05] MEDS: LEVOTHYROXINE 50 MCG (LEVOTHROID) TAB PO SCH (22:17)
[2022-08-06] VITALS (9 sets, daily range): BP systolic 97–184; BP diastolic 68–129
[2022-08-06] MEDS: MELATONIN 3 MG TABLET PO PRN ×2 (00:10→20:54)
[2022-08-06] MEDS: ACETAMINOPHEN 325 MG TABLET PO PRN (02:14)
[2022-08-06] MEDS: PIPERACILLIN SODIUM/TAZOBACTAM 4.5 GM in NS (IVPB) 100 ML IV SCH ×2 (02:16→10:28)
[2022-08-06] MEDS: inSUlin ASPART (NovoLOG) 1 UNIT/0.01 ML (CHARGE PER UNIT) SC SCH ×4 (05:23→20:50)
--- NOTE | 2022-08-06 06:45 | Progress Note - Surgery ---
GILBERTO FONSECA 08/06/22 0645: Subjective Date Seen by a Provider: Aug 06, 2022 Time Seen by a Provider: 08:20 Subjective/Events-last exam Patient is up in bed writing in her journal this morning, in good spirits Her pain is well controlled at this time No other complaints Denies any N/V/D, fever or chills Has had a bowel movement Was able to get up and use restroom Bandages had to be applied over post surgical bandages due to leakage Labs reviewed Objective Exam Vital Signs Date Time Temp Pulse Resp B/P (MAP) Pulse Ox O2 Delivery O2 Flow Rate FiO2 08/06/22 04:00 36.7 76 18 128/71 (90) 97 Room Air 08/06/22 00:00 36.6 87 21 153/70 (97) 92 Room Air 08/05/22 20:45 Room Air 08/05/22 19:39 36.4 89 21 158/74 (102) 97 Room Air 08/05/22 16:00 36.5 90 21 128/57 (80) 97 Room Air 08/05/22 14:59 Room Air 08/05/22 11:18 36.2 83 18 136/84 (101) 98 Room Air 08/05/22 11:10 Room Air 08/05/22 10:58 36.4 15 151/78 (102) 96 Room Air 08/05/22 10:55 Room Air 08/05/22 10:50 22 159/84 (109) 98 Room Air 08/05/22 10:40 OxyMask 10.00 08/05/22 10:40 21 170/81 (110) 100 OxyMask 10.00 08/05/22 10:30 21 146/71 (96) 100 OxyMask 10.00 08/05/22 10:25 OxyMask 10.00 08/05/22 10:20 17 136/72 (93) 99 OxyMask 10.00 08/05/22 10:12 OxyMask 10.00 08/05/22 10:12 37.0 16 146/72 (96) 100 OxyMask 10.00 08/05/22 08:30 Room Air 08/05/22 07:37 98 Room Air 08/05/22 07:34 36.2 77 18 152/82 (105) 97 Room Air I & O 08/06/22 07:00 Intake Total 2040 ml Output Total 250 ml Balance 1790 ml Capillary Refill : Less Than 3 Seconds General Appearance: No Apparent Distress, Obese HEENT: PERRL/EOMI, Normal ENT Inspection Neck: Normal Inspection, Supple Respiratory: Chest Non Tender, Lungs Clear, Normal Breath Sounds, No Accessory Muscle Use, No Respiratory Distress Cardiovascular: Regular Rate, Rhythm, No Edema, No Gallop, No JVD, No Murmur, Normal Peripheral Pulses Peripheral Pulses: 2+ Radial Pulses (R), 2+ Radial Pulses (L) Gastrointestinal: non tender, soft Extremity: Other (No significant lower extremity edema small amount of blood on the left wrapped foot none on the right. Dressings had to be added to post surgical dressing due to leakage.) Neurologic/Psychiatric: Alert, Oriented x3, Sensory Deficit (feet) Skin: Normal Color, Warm/Dry, Erythema (Of both feet with more severe erythema in right foot), Other (Circular ulcer noted on right distal phalanx of 2nd toe. Pitted ulcer of left great toe. 1 cm x 1 cm. Skin over right ankle is indurated and erythematous. purulent drainage of ulcers) Lymphatic: No Adenopathy Results Lab Laboratory Tests 08/05/22 11:24: Glucometer 142H 08/05/22 15:29: Glucometer 238H 08/05/22 20:21: Glucometer 180H Microbiology 08/04/22 MRSA Screen - Final, Complete MRSA not isolated 08/02/22 Urine Culture - Final, Complete YEAST Gram Pos Mixed Bacterial Erica 08/02/22 Gram Stain - Final, Complete 08/02/22 Wound Culture - Final, Complete Staphylococcus aureus Streptococcus canis Pasteurella dagmatis 08/02/22 Blood Culture - Preliminary, Resulted No growth Assessment/Plan Assessment/Plan Assessment/Plan S/P -Left great toe amputation, right first partial ray amputation and second toe amputation, debridement of right foot ulcer 2 x 2 cm of skin, subcutaneous tissue and tendon. POD #1 Osteomyelitis of right foot (1st metatarsal and 2nd distal phalanx) and left foot (left great toe) Ulceration of right foot plantar surface and left plantar surface of great toe Sepsis secondary to UTI or foot infections. UTI Uncontrolled Type II diabetes-non compliant Bilateral non-traumatic foot fractures-one acute/ one non healed fracture- LYDIA Continue IV antibiotics and monitor for signs of improvement. Wound culture acquired - growing Staphylococcus aureus, STREP, BETA HEMOLYTIC GROUP C, Streptococcus canis Insulin as needed, maintain tight glycemic control. Monitor labs Pain control Order PT Continue post op wound care Clinical Quality Measures DVT/VTE Risk/Contraindication: VTE Addressed: Yes VTE Present on Admission: No Contraindications-Mechi: Other *list below* Other: leg cellulitis RIDGE HILL DO 08/09/22 1748: Subjective Subjective/Events-last exam Patient pain controlled. Getting up a little bit ambulating. No complaints. Denies any nausea vomiting fever sweats chills shortness of breath or chest pain. Objective Exam General Appearance: No Apparent Distress, Obese HEENT: PERRL/EOMI Neck: Normal Inspection, Supple Respiratory: Chest Non Tender, No Accessory Muscle Use, No Respiratory Distress Cardiovascular: Regular Rate, Rhythm, No JVD Gastrointestinal: non tender, soft Extremity: Other (No significant lower extremity edema small amount of blood on the left wrapped foot none on the right. Dressings had to be added to post surgical dressing due to leakage.) Neurologic/Psychiatric: Alert, Oriented x3, Sensory Deficit (feet) Skin: Normal Color, Warm/Dry, Erythema (Of both feet with more severe erythema in right foot slightly improving), Other Lymphatic: No Adenopathy Assessment/Plan Assessment/Plan Assessment/Plan S/P -Left great toe amputation, right first partial ray amputation and second toe amputation, debridement of right foot ulcer 2 x 2 cm of skin, subcutaneous tissue and tendon. POD #1 Osteomyelitis of right foot (1st metatarsal and 2nd distal phalanx) and left foot (left great toe) Ulceration of right foot plantar surface and left plantar surface of great toe Sepsis secondary to UTI or foot infections. UTI Uncontrolled Type II diabetes-non compliant Bilateral non-traumatic foot fractures-one acute/ one non healed fracture- LYDIA Continue IV antibiotics and monitor for signs of improvement. Wound culture acquired - growing Staphylococcus aureus, STREP, BETA HEMOLYTIC GROUP C, Streptococcus canis Insulin as needed, maintain tight glycemic control. Monitor labs Pain control Order PT Continue post op wound care Supervisory-Addendum Brief Verification & Attestation Participated in pt care: history, MDM, physical Personally performed: exam, history, MDM, supervision of care Care discussed with: Medical Student Procedures: n/a Results interpretation: Verified all documentation Verification and Attestation of Medical Student E/M Service A medical student performed and documented this service in my presence. I reviewed and verified all information documented by the medical student and made modifications to such information, when appropriate. I personally performed the physical exam and medical decision making. [place], Aug 06, 2022,17:48 GILBERTO FONSECA Aug 06, 2022 06:45 RIDGE HILL DO Aug 09, 2022 17:48
[2022-08-06] MEDS ORDERED: TROUGH ORDER-PHARMACY XX NR (07:00)
[2022-08-06 07:14] LABS: BASOPHILS # (AUTO) 0.1 10^3/uL (0.0-0.1); BASOPHILS % (AUTO) 1 % (0-10); EOSINOPHILS # (AUTO) 0.4 10^3/uL (0.0-0.3); EOSINOPHILS % (AUTO) 3 % (0-10); HEMATOCRIT 32 % (35-52); HEMOGLOBIN 9.7 g/dL (11.5-16.0); LYMPHOCYTES # (AUTO) 2.9 10^3/uL (1.0-4.0); LYMPHOCYTES % (AUTO) 21 % (12-44); MEAN CORPUSCULAR HEMOGLOBIN 26 pg (25-34); MEAN CORPUSCULAR HGB CONC 30 g/dL (32-36); MEAN CORPUSCULAR VOLUME 87 fL (80-99); MEAN PLATELET VOLUME 8.4 fL (9.0-12.2); MONOCYTES % (AUTO) 8 % (0-12); NEUTROPHILS % (AUTO) 66 % (42-75); PLATELET COUNT 549 10^3/uL (130-400); WHITE BLOOD COUNT 13.6 10^3/uL (4.3-11.0)
[2022-08-06 07:34] LABS: ALBUMIN 2.7 GM/DL (3.2-4.5); BILIRUBIN,TOTAL 0.2 MG/DL (0.1-1.0); CALCIUM 8.9 MG/DL (8.5-10.1); CREATININE SERUM 2.37 MG/DL (0.60-1.30); MAGNESIUM 1.7 MG/DL (1.6-2.4); POTASSIUM 3.8 MMOL/L (3.6-5.0); TOTAL PROTEIN 6.8 GM/DL (6.4-8.2)
[2022-08-06] MEDS: PANTOPRAZOLE 40 MG (PROTONIX) TAB PO SCH (08:15)
[2022-08-06] MEDS: MIDODRINE 10 MG (PROAMATINE) TAB PO SCH (08:16)
[2022-08-06] MEDS: DOCUSATE SODIUM 100 MG (COLACE) CAP PO SCH ×2 (08:16→20:49)
[2022-08-06 08:17] LABS: VANCOMYCIN,TROUGH 25.4 UG/ML (10.0-20.0)
[2022-08-06] MEDS: SENNOSIDES 8.6 MG (SENOKOT) TAB PO SCH ×2 (08:17→20:49)
--- NOTE | 2022-08-06 11:38 | Physical Therapy Evaluation ---
PT Evaluation-General Medical Diagnosis Admission Date Aug 02, 2022 at 21:19 Medical Diagnosis: ACUTE OSTEOMYELITIS OF RIGHT FOOT Onset Date: Aug 02, 2022 Therapy Diagnosis Therapy Diagnosis: Generalized Weakness, Impaired Mobility Height/Weight Height (Feet): 5 Height (Inches): 0 Weight (Pounds): 179 Weight (Ounces): 4.0 Precautions Precautions/Isolations: Fall Prevention, Standard Precautions Weight Bear Status Right Lower Extremity: Right Weight Bearing/Tolerated Left Lower Extremity: Left Weight Bearing/Tolerated nurse states doctor says patient needs to bear weight on her heels Referral Physician: Sergio Reason for Referral: Evaluation/Treatment Medical History Additional Medical History Past Medical History Surgery/Hospitalization HX: HERNIA REPAIR, R AND L CARPAL TUNNEL, R FOOT SURGERY, VENACAVA FILTER PLACED PMH: TYPE 2 DM Surgeries: Yes Abdominal, Adenoidectomy, Amputation, Orthopedic, Tonsillectomy, Vascular Surgery Respiratory: Yes Pulmonary Embolism Currently Using CPAP: No Currently Using BIPAP: No Cardiac: Yes (VENA CAVA FILTER IN PLACE--DVT'S AND PE'S. 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 Sexually Transmitted Disease: No HIV/AIDS: No Genitourinary: No Gastrointestinal: Yes (dysphagia; HERNIA REPAIR X 5) Abdominal Hernia, Gastroesophageal Reflux Musculoskeletal: Yes (RIGHT GREAT TOE AMPUTATION, MULTIPLE ORTHO SURGERIES) Amputee, Degenerate Disk Disease, Arthritis, Scoliosis Endocrine: Yes Hypothyroidsim, Diabetes, Non-Insulin dep HEENT: Yes Loss of Vision: Bilateral Hearing Impairment: Denies Cancer: No Psychosocial: Yes Anxiety, Depression Integumentary: Yes (Chronic diabetic foot ulcers; OSTEOMYELITIS) Blood Disorders: No Adverse Reaction/Blood Tranf: No (N/A) Current History S/P -Left great toe amputation, right first partial ray amputation and second toe amputation, debridement of right foot ulcer 2 x 2 cm of skin, subcutaneous tissue and tendon. POD #1 Reviewed History: Yes Social History Home: Single Level Current Living Status: Significant Other Entry Into Home: Ramp Patient has 2 steps at other entrance but doesnt use them. Prior Prior Level of Function SCALE: Activities may be completed with or without assistive devices. 2-Wrxngmeova-vgycxsl completes the activity by him/herself with no assistance from a helper. 5-Set-up or Clean-up Assistance-helper sets up or cleans up; patient completes activity. [place] assists only prior to or following the activity. 4-Supervision or Touching Assistance-helper provides verbal cues and/or touch ing/steadying and/or contact guard assistance as patient completes activity. Assistance may be provided throughout the activity or intermittently. 3-Partial/Moderate Assistance-helper does LESS THAN HALF the effort. [place] lifts, holds or supports trunk or limbs, but provides less than half the effort. 2-Substantial/Maximal Assistance-helper does MORE THAN HALF the effort. [place] lifts or holds trunk or limbs and provides more than half the effort. 9-Dhetzcisj-avabku does ALL the effort. Patient does none of the effort to complete the activity. Or, the assistance of 2 or more helpers is required for the patient to complete the activity. If activity was not attempted, code reason: 7-Patient Refused. 9-Not Applicable-not attempted and the patient did not perform the activity before the current illness, exacerbation or injury. 10-Not Attempted due to Environmental Limitations-(lack of equipment, weather restraints, etc.). 88-Not Attempted due to Medical Conditions or Safety Concerns. Bed Mobility: 6 Transfers (B,C,W/C): 6 Gait: 6 Stairs: 6 Indoor Mobility (Ambulation): Independent Stairs: Independent Prior Devices Use: Walker (4-wheeled walker with seat) PT Evaluation-Current Subjective Patient in bed pre-tx with family in room, reports no pain, agrees to PT. Pt/Family Goals Return to independence at home. Objective Patient Orientation: Person, Place, Situation Attachments: IV ROM/Strength ROM Lower Extremities WFL Strength Lower Extremities RLE (hip flexion 3+/5, knee extension 5/5, knee flexion 4+/5, DF 5/5) LLE (hip flexion 4-/5, knee extension 5/5, knee flexion 4+/5, DF 5/5) Neuromuscular (Tone, Coordination, Reflexes) Coordination intact Sensory Hearing: Functional Sensation Right Lower Extremit: Impaired Sensation Left Lower Extremity: Impaired Transfers Roll Left to Right (QC): 4 Sit to Lying (QC): 4 Lying to Sitting/Side of Bed(Q: 4 Sit to Stand (QC): 4 SBA for transfers and bed mobility Gait Does the Patient Walk?: Yes Mode of Locomotion: Walk Anticipated Mode of Locomotion: Walk Walk 10 feet (QC): 4 Walk 50 ft with 2 Turns(QC): 4 Walk 150 ft (QC): 4 Distance: 150' Gait Assistive Device: FWW Comments/Gait Description CGA for ambulation for safety measures due to patient being bilateral WBAT due to toe amputations. Patient walks on heels in order to avoid pressure on toes p er surgeon protocol. Balance Sitting Static: Normal Sitting Dynamic: Normal Standing Static: Fair Standing Dynamic: Fair Treatment Ambulation, bed mobility, LE Strengthening (AP 20 reps, LAQ 10 reps, Hip Flexion 10 reps) Assessment/Needs Patient steady with ambulation, understands and abides by WBT protocol walking on heels. Patient sitting EOB post-tx with family in room, nurse call, phone, all needs met. 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 PT Snf Goals Time Frame: Aug 13, 2022 Roll Left & Right (QC): 6 Sit to Lying (QC): 6 Lying-Sitting on Side/Bed(QC): 6 Sit to Stand (QC): 6 Chair/Uad-zc-Imzqz Xfer(QC): 6 Toilet Transfer (QC): 6 Walk 10 feet (QC): 6 Walk 50ft with 2 Turns (QC): 6 Walk 150 ft (QC): 6 PT Plan Problem List Problem List: Activity Tolerance, Functional Strength, Safety, Balance, Gait, Transfer, Bed Mobility, ROM Treatment/Plan Treatment Plan: Continue Plan of Care Treatment Plan: Bed Mobility, Education, Functional Activity Noble, Functional Strength, Gait, Safety, Therapeutic Exercise, Transfers Treatment Duration: Aug 06, 2022 Frequency: 6 times per week Estimated Hrs Per Day: .25 hour per day Patient and/or Family Agrees t: Yes Safety Risks/Education Patient Education: Gait Training, Transfer Techniques, Correct Positioning, Safety Issues Teaching Recipient: Patient Teaching Methods: Demonstration, Discussion Response to Teaching: Reinforcement Needed Discharge Recommendations Plan Patient will perform bed mobility and transfer training, endurance and balance training, gait training and functional strengthening in order to be more independent at home. Therapy Discharge Recommendati: Home & Family, Post Acute PT Time Time In: 1101 Time Out: 1119 DATE: Aug 06, 2022 Total Billed Treatment Time: 18 Total Billed Treatment 1 visit EVM 18min CHRISSY LUONG PT Aug 06, 2022 11:38
--- NOTE | 2022-08-06 16:34 | Progress Note ---
Subjective Subjective/Events-last exam Pt states she is feeling well post-surgery and hopes to go home tomorrow. She has already had her home handicapped accessible. She has a walker and manual wheelchair at home, we have been working on electric mobility device outpatient. Objective Exam Last Set of Vital Signs Vital Signs Date Time Temp Pulse Resp B/P (MAP) Pulse Ox O2 Delivery O2 Flow Rate FiO2 08/06/22 16:00 36.8 85 20 163/84 (110) 99 Room Air 08/06/22 11:20 2.00 08/03/22 12:55 21 Capillary Refill : Less Than 3 Seconds I&O Intake and Output 08/06/22 00:00 Intake Total 1790 ml Output Total 250 ml Balance 1540 ml Intake Oral 1340 ml IV Total 450 ml Output Urine Total 250 ml # Voids 4 # Bowel Movements 2 General: Alert, No Acute Distress Lungs: Clear to Auscultation, Normal Air Movement Heart: Regular Rate, No Murmurs Abdomen: Normal Bowel Sounds, Soft Extremities: Other (Bilateral foot surgical wounds dressed with no drainage on bandages) Psych/Mental Status: Mental Status NL, Mood NL Results/Procedures Lab Laboratory Tests 08/05/22 20:21: Glucometer 180H 08/06/22 07:06: White Blood Count 13.6H, Red Blood Count 3.67L, Hemoglobin 9.7L, Hematocrit 32L, Mean Corpuscular Volume 87, Mean Corpuscular Hemoglobin 26, Mean Corpuscular Hemoglobin Concent 30L, Red Cell Distribution Width 16.1H, Platelet Count 549H, Mean Platelet Volume 8.4L, Immature Granulocyte % (Auto) 1, Neutrophils (%) (Auto) 66, Lymphocytes (%) (Auto) 21, Monocytes (%) (Auto) 8, Eosinophils (%) (Auto) 3, Basophils (%) (Auto) 1, Neutrophils # (Auto) 9.0H, Lymphocytes # (Auto) 2.9, Monocytes # (Auto) 1.0, Eosinophils # (Auto) 0.4H, Basophils # (Auto) 0.1, Immature Granulocyte # (Auto) 0.1, Sodium Level 143, Potassium Level 3.8, Chloride Level 110H, Carbon Dioxide Level 20L, Anion Gap 13, Blood Urea Nitrogen 11, Creatinine 2.37H, Estimat Glomerular Filtration Rate 23, BUN/Creatinine Ratio 5, Glucose Level 128H, Calcium Level 8.9, Corrected Calcium 9.9, Magnesium Level 1.7, Total Bilirubin 0.2, Aspartate Amino Transf (AST/SGOT) 32, Alanine Aminotransferase (ALT/SGPT) 17, Alkaline Phosphatase 100, Total Protein 6.8, Albumin 2.7L, Vancomycin Level Trough 25.4#*H 08/06/22 10:11: Glucometer 139H Microbiology 08/05/22 Gram Stain, Resulted Pending 08/05/22 Anaerobic Culture, Resulted Pending 08/05/22 Surgical Culture - Preliminary, Resulted Staphylococcus aureus 08/05/22 Fungal Culture 1 - Preliminary, Resulted Culture In Progress 08/04/22 MRSA Screen - Final, Complete MRSA not isolated 08/02/22 Urine Culture - Final, Complete YEAST Gram Pos Mixed Bacterial Erica 08/02/22 Blood Culture - Preliminary, Resulted No growth Radiology FOOT, BILATERAL, 3 VIEW INDICATION: Sepsis. Bilateral foot ulcers. COMPARISON: 06/27/2022. FINDINGS: RIGHT FOOT: Multiple radiographic views of the right foot were obtained. Patient is status post interval amputation of the great toe. There is prominent osteolytic process to the distal margins of the 1st metatarsal consistent with probable osteomyelitis. There is also soft tissue defect involving the distal tip of the 2nd toe with underlying osteolytic appearance to the tuft of the distal phalanx. Generalized soft tissue swelling is also noted. No unexpected radiopaque foreign bodies are seen. LEFT FOOT: Multiple radiographic views of the left foot were also obtained. There appears to be soft tissue defect of the medial margins of the great toe with generalized soft tissue swelling. There is a longitudinally oriented fracture extending through the distal and medial portions of the proximal phalanx with intra-articular extension. Findings are suggestive of acute fracture. Otherwise, no definite osteolytic process is seen. Evaluation of the remainder of the left foot again demonstrates nonhealed fracture of the 5th metatarsal. This is stable compared to 06/27/2022. No unexpected radiopaque foreign bodies are seen. IMPRESSION: 1. Osteolytic process to the distal portion of the right 1st metatarsal and right 2nd distal phalanx. Findings are strongly suggestive of underlying osteomyelitis. 2. New acute appearing fracture of the 1st proximal phalanx of the left foot. 3. Redemonstration of nonhealed fracture of the left 5th metatarsal. Assessment/Plan Assessment/Plan (1) Sepsis Status: Acute Assessment & Plan: Secondary to osteomyelitis and possibly UTI. On Zosyn and Vancomycin, s/p excision of osteo and debridement of wound, anticipate will be able to d/c antibiotics soon, may stay on oral after d/c due to wound. (2) Osteomyelitis Status: Acute Assessment & Plan: Bilateral feet, s/p left great toe amputation and right partial ray amputation and second toe amputation. Qualifiers: Qualified Codes: M86.179 - Other acute osteomyelitis, unspecified ankle and foot (3) Diabetes mellitus, type 2 Status: Chronic Assessment & Plan: 08/02/22 outpatient A1c 6.6. On sliding scale insulin inpatient. Qualifiers: Qualified Codes: E11.621 - Type 2 diabetes mellitus with foot ulcer; L97.509 - Non-pressure chronic ulcer of other part of unspecified foot with unspecified severity (4) UTI (urinary tract infection) Status: Acute Assessment & Plan: UA suspicious on admit, mixed growth and yeast. (5) Hypertension Status: Chronic Qualifiers: Qualified Codes: I10 - Essential (primary) hypertension (6) DVT prophylaxis Status: Acute Assessment & Plan: Enoxaparin Clinical Quality Measures DVT/VTE Risk/Contraindication: VTE Addressed: Yes VTE Present on Admission: No Contraindications-Mechi: Other *list below* Other: leg cellulitis GEO LOUISE MD Aug 06, 2022 16:34
[2022-08-06] MEDS ORDERED: AUGMENTIN 875 MG TAB (AMOXICILLIN/CLAVULANATE) PO SCH (18:00)
[2022-08-06] MEDS: ENOXAPARIN INJECTION 30 MG/0.3 ML SYR SC SCH (20:50)
[2022-08-06] MEDS: CALCIUM CARBONATE 500 MG (TUMS) TAB.CHEW PO PRN (20:54)
[2022-08-07] VITALS (7 sets, daily range): BP systolic 136–186; BP diastolic 67–86
[2022-08-07] MEDS: ONDANSETRON 4 MG/2 ML (SDV) Z0FRAN IV PRN ×2 (00:52→14:05)
[2022-08-07] MEDS: inSUlin ASPART (NovoLOG) 1 UNIT/0.01 ML (CHARGE PER UNIT) SC SCH ×4 (05:36→20:41)
[2022-08-07] MEDS: LEVOTHYROXINE 50 MCG (LEVOTHROID) TAB PO SCH (05:36)
[2022-08-07 05:49] LABS: BASOPHILS # (AUTO) 0.1 10^3/uL (0.0-0.1); BASOPHILS % (AUTO) 1 % (0-10); EOSINOPHILS # (AUTO) 0.7 10^3/uL (0.0-0.3); EOSINOPHILS % (AUTO) 5 % (0-10); HEMATOCRIT 31 % (35-52); HEMOGLOBIN 9.2 g/dL (11.5-16.0); LYMPHOCYTES # (AUTO) 2.3 10^3/uL (1.0-4.0); LYMPHOCYTES % (AUTO) 16 % (12-44); MEAN CORPUSCULAR HEMOGLOBIN 26 pg (25-34); MEAN CORPUSCULAR HGB CONC 30 g/dL (32-36); MEAN CORPUSCULAR VOLUME 87 fL (80-99); MEAN PLATELET VOLUME 8.6 fL (9.0-12.2); MONOCYTES # (AUTO) 1.1 10^3/uL (0.0-1.0); MONOCYTES % (AUTO) 7 % (0-12); NEUTROPHILS # (AUTO) 10.5 10^3/uL (1.8-7.8); NEUTROPHILS % (AUTO) 71 % (42-75); PLATELET COUNT 559 10^3/uL (130-400); WHITE BLOOD COUNT 14.7 10^3/uL (4.3-11.0)
[2022-08-07 06:07] LABS: ALBUMIN 2.6 GM/DL (3.2-4.5); BILIRUBIN,TOTAL 0.1 MG/DL (0.1-1.0); CALCIUM 8.9 MG/DL (8.5-10.1); CREATININE SERUM 2.62 MG/DL (0.60-1.30); MAGNESIUM 1.8 MG/DL (1.6-2.4); POTASSIUM 4.8 MMOL/L (3.6-5.0); TOTAL PROTEIN 6.6 GM/DL (6.4-8.2)
--- NOTE | 2022-08-07 06:38 | Progress Note - Surgery ---
GILBERTO FONSECA 08/07/22 0638: Subjective Date Seen by a Provider: Aug 07, 2022 Time Seen by a Provider: 08:20 Subjective/Events-last exam Patient is laying in bed comfortably, in good spirits Had a episode of nausea last night needed zofran Her pain is well controlled at this time No other complaints currently Denies any diarrhea, fever, or chills Had a bowel movement yesterday Was able to get up and use restroom Patient was able to do PT yesterday and walk around the halls with her walker, feels confident in her ability to ambulate Labs reviewed Objective Exam Vital Signs Date Time Temp Pulse Resp B/P (MAP) Pulse Ox O2 Delivery O2 Flow Rate FiO2 08/07/22 03:32 36.8 79 20 143/67 (92) 97 Room Air 08/06/22 23:47 36.7 77 20 151/69 (96) 93 Room Air 08/06/22 22:18 97 Room Air 08/06/22 20:10 36.4 91 68 21 08/06/22 20:00 Room Air 08/06/22 19:59 36.4 91 22 129/68 (88) 97 Room Air 08/06/22 16:00 36.8 85 20 163/84 (110) 99 Room Air 08/06/22 11:49 163/71 (101) 08/06/22 11:20 36.5 80 20 184/79 (114) 99 Nasal Cannula 2.00 08/06/22 08:15 Room Air 08/06/22 08:00 36.0 72 16 139/75 (96) 96 Nasal Cannula 2.00 I & O 08/07/22 07:00 Intake Total 965 ml Output Total 450 ml Balance 515 ml Capillary Refill : Less Than 3 Seconds General Appearance: No Apparent Distress, Obese HEENT: PERRL/EOMI, Normal ENT Inspection Neck: Normal Inspection, Supple Respiratory: Chest Non Tender, Lungs Clear, Normal Breath Sounds, No Accessory Muscle Use, No Respiratory Distress Cardiovascular: Regular Rate, Rhythm, No Edema, No Gallop, No JVD, No Murmur, Normal Peripheral Pulses Peripheral Pulses: 2+ Radial Pulses (R), 2+ Radial Pulses (L) Gastrointestinal: non tender, soft Extremity: Normal Inspection, No Pedal Edema, Other (No significant lower extremity edema, both feet currently bandaged with minimal leakage of left bandage.) Neurologic/Psychiatric: Alert, Oriented x3, Sensory Deficit (feet) Skin: Normal Color, Warm/Dry Lymphatic: No Adenopathy Results Lab Laboratory Tests 08/06/22 07:06: White Blood Count 13.6H, Red Blood Count 3.67L, Hemoglobin 9.7L, Hematocrit 32L, Mean Corpuscular Volume 87, Mean Corpuscular Hemoglobin 26, Mean Corpuscular Hemoglobin Concent 30L, Red Cell Distribution Width 16.1H, Platelet Count 549H, Mean Platelet Volume 8.4L, Immature Granulocyte % (Auto) 1, Neutrophils (%) (Auto) 66, Lymphocytes (%) (Auto) 21, Monocytes (%) (Auto) 8, Eosinophils (%) (Auto) 3, Basophils (%) (Auto) 1, Neutrophils # (Auto) 9.0H, Lymphocytes # (Auto) 2.9, Monocytes # (Auto) 1.0, Eosinophils # (Auto) 0.4H, Basophils # (Auto) 0.1, Immature Granulocyte # (Auto) 0.1, Sodium Level 143, Potassium Level 3.8, Chloride Level 110H, Carbon Dioxide Level 20L, Anion Gap 13, Blood Urea Nitrogen 11, Creatinine 2.37H, Estimat Glomerular Filtration Rate 23, BUN/Creatinine Ratio 5, Glucose Level 128H, Calcium Level 8.9, Corrected Calcium 9.9, Magnesium Level 1.7, Total Bilirubin 0.2, Aspartate Amino Transf (AST/SGOT) 32, Alanine Aminotransferase (ALT/SGPT) 17, Alkaline Phosphatase 100, Total Protein 6.8, Albumin 2.7L, Vancomycin Level Trough 25.4#*H 08/06/22 10:11: Glucometer 139H 08/06/22 20:23: Glucometer 240H 08/07/22 05:23: White Blood Count 14.7H, Red Blood Count 3.54L, Hemoglobin 9.2L, Hematocrit 31L, Mean Corpuscular Volume 87, Mean Corpuscular Hemoglobin 26, Mean Corpuscular Hemoglobin Concent 30L, Red Cell Distribution Width 16.0H, Platelet Count 559H, Mean Platelet Volume 8.6L, Immature Granulocyte % (Auto) 1, Neutrophils (%) (Auto) 71, Lymphocytes (%) (Auto) 16, Monocytes (%) (Auto) 7, Eosinophils (%) (Auto) 5, Basophils (%) (Auto) 1, Neutrophils # (Auto) 10.5H, Lymphocytes # (Auto) 2.3, Monocytes # (Auto) 1.1H, Eosinophils # (Auto) 0.7H, Basophils # (Auto) 0.1, Immature Granulocyte # (Auto) 0.1, Sodium Level 143, Potassium Level 4.8, Chloride Level 113H, Carbon Dioxide Level 20L, Anion Gap 10, Blood Urea Nitrogen 11, Creatinine 2.62H, Estimat Glomerular Filtration Rate 21, BUN/Creatinine Ratio 4, Glucose Level 155H, Calcium Level 8.9, Corrected Calcium 10.0, Magnesium Level 1.8, Total Bilirubin 0.1, Aspartate Amino Transf (AST/SGOT) 29, Alanine Aminotransferase (ALT/SGPT) 17, Alkaline Phosphatase 90, Total Protein 6.6, Albumin 2.6L 08/07/22 05:33: Glucometer 124H Microbiology 08/05/22 Gram Stain, Resulted Pending 08/05/22 Anaerobic Culture, Resulted Pending 08/05/22 Surgical Culture - Preliminary, Resulted Staphylococcus aureus 08/05/22 Fungal Culture 1 - Preliminary, Resulted Culture In Progress 08/04/22 MRSA Screen - Final, Complete MRSA not isolated 08/02/22 Urine Culture - Final, Complete YEAST Gram Pos Mixed Bacterial Erica 08/02/22 Blood Culture - Preliminary, Resulted No growth Assessment/Plan Assessment/Plan Assessment/Plan S/P -Left great toe amputation, right first partial ray amputation and second toe amputation, debridement of right foot ulcer 2 x 2 cm of skin, subcutaneous tissue and tendon. POD #2 Osteomyelitis of right foot (1st metatarsal and 2nd distal phalanx) and left foot (left great toe) Ulceration of right foot plantar surface and left plantar surface of great toe Sepsis secondary to UTI or foot infections. UTI Uncontrolled Type II diabetes-non compliant Bilateral non-traumatic foot fractures-one acute/ one non healed fracture LYDIA-worsening Started on oral antibiotics. Surgical wound culture acquired-grew staphylococcus aureus. Awaiting fungal culture Insulin as needed, maintain tight glycemic control. Monitor labs Pain control Continue PT Continue post op wound care Clinical Quality Measures DVT/VTE Risk/Contraindication: VTE Addressed: Yes VTE Present on Admission: No Contraindications-Mechi: Other *list below* Other: leg cellulitis RIDGE HILL DO 08/09/222: Subjective Subjective/Events-last exam Patient states she is doing okay. Little bit of abdominal discomfort. Some nausea overnight. Ambulating. No other complaints denies any nausea vomiting fever sweats chills shortness of breath or chest pain. Objective Exam General Appearance: No Apparent Distress, Obese HEENT: PERRL/EOMI, Normal ENT Inspection Neck: Normal Inspection, Supple Respiratory: Chest Non Tender, No Accessory Muscle Use, No Respiratory Distress Cardiovascular: Regular Rate, Rhythm, No JVD Gastrointestinal: non tender, soft Extremity: Other (No significant lower extremity edema, open wounds, slowly improving) Neurologic/Psychiatric: Alert, Oriented x3 Assessment/Plan Assessment/Plan Assessment/Plan S/P -Left great toe amputation, right first partial ray amputation and second toe amputation, debridement of right foot ulcer 2 x 2 cm of skin, subcutaneous tissue and tendon. POD #2 Osteomyelitis of right foot (1st metatarsal and 2nd distal phalanx) and left foot (left great toe) Ulceration of right foot plantar surface and left plantar surface of great toe Sepsis secondary to UTI or foot infections. UTI Uncontrolled Type II diabetes-non compliant Bilateral non-traumatic foot fractures-one acute/ one non healed fracture LYDIA-worsening Started on oral antibiotics. Surgical wound culture acquired-grew staphylococcus aureus. Awaiting fungal culture Insulin as needed, maintain tight glycemic control. Monitor labs with LYDIA worsening. Pain control Continue PT Continue post op wound care Supervisory-Addendum Brief Verification & Attestation Participated in pt care: history, MDM, physical Personally performed: exam, history, MDM, supervision of care Care discussed with: Medical Student Procedures: n/a Results interpretation: Verified all documentation Verification and Attestation of Medical Student E/M Service A medical student performed and documented this service in my presence. I re viewed and verified all information documented by the medical student and made modifications to such information, when appropriate. I personally performed the physical exam and medical decision making. [place], Aug 07, 2022,19:51 GILBERTO FONSECA Aug 07, 2022 06:38 RIDGE HILL DO Aug 09, 2022 17:52
[2022-08-07] MEDS ORDERED: NS IV 1000 ML 1,000 ML IV SCH (07:45)
[2022-08-07] MEDS: PANTOPRAZOLE 40 MG (PROTONIX) TAB PO SCH (08:57)
[2022-08-07] MEDS: AUGMENTIN 500 MG TAB (AMOXICILLIN/CLAVULANATE) PO SCH ×2 (08:57→17:13)
[2022-08-07] MEDS: SENNOSIDES 8.6 MG (SENOKOT) TAB PO SCH ×2 (08:58→20:41)
[2022-08-07] MEDS: DOCUSATE SODIUM 100 MG (COLACE) CAP PO SCH ×2 (08:58→20:41)
--- NOTE | 2022-08-07 10:58 | Physical Therapy Daily Note ---
PT Daily Note-Current Subjective Pt. agrees to Rx and happy to report she has no pain. "but my kidney labs are not good, dont know why" Pain Location: No Pain Reported Section J - Health Conditions 1. Rarely or not at all 2. Occasionally 3. Frequently 4. Almost constantly 8. Unable to answer Pain Effect on Sleep: 1 Pain Interference with Therapy: 1 Pain Interference w/Day-to-Day: 1 Mental Status Patient Orientation: Normal For Age Transfers SCALE: Activities may be completed with or without assistive devices. 6-Elqwfofbpp-ihlsqel completes the activity by him/herself with no assistance from a helper. 5-Set-up or Clean-up Assistance-helper sets up or cleans up; patient completes activity. [place] assists only prior to or following the activity. 4-Supervision or Touching Assistance-helper provides verbal cues and/or touching/steadying and/or contact guard assistance as patient completes activity. Assistance may be provided throughout the activity or intermittently. 3-Partial/Moderate Assistance-helper does LESS THAN HALF the effort. [place] lifts, holds or supports trunk or limbs, but provides less than half the effort. 2-Substantial/Maximal Assistance-helper does MORE THAN HALF the effort. [place] lifts or holds trunk or limbs and provides more than half the effort. 5-Cxkuiwpcb-viqvja does ALL the effort. Patient does none of the effort to complete the activity. Or, the assistance of 2 or more helpers is required for the patient to complete the activity. If activity was not attempted, code reason: 7-Patient Refused. 9-Not Applicable-not attempted and the patient did not perform the activity before the current illness, exacerbation or injury. 10-Not Attempted due to Environmental Limitations-(lack of equipment, weather restraints, etc.). 88-Not Attempted due to Medical Conditions or Safety Concerns. Roll Left & Right (QC): 6 Sit to Lying (QC): 6 Lying to Sitting/Side of Bed(Q: 6 Sit to Stand (QC): 6 Chair/Zub-ip-Dzyts Xfer(QC): 6 Weight Bearing Right Lower Extremity: Right Weight Bearing/Tolerated Left Lower Extremity: Left Weight Bearing/Tolerated nurse states doctor says patient needs to bear weight on her heels Gait Training Does the Patient Walk?: Yes Walk 10 feet (QC): 4 Walk 50 ft with 2 Turns(QC): 4 Gait Persons Needed: 1 Gait Assistive Device: FWW pt. walks on heels and maintains balance well, good use of FWW Exercises Seated Therapy Exercises: Ankle pumps, Sit to stand, Long arc quads, Hip flexion, Hip abd/add Seated Reps: 12 Treatments gait, TRFs, LE ex Assessment Current Status: Good Progress PT Detention Goals Detention Goals PT Detention Goals Time Frame: Aug 13, 2022 Roll Left & Right (QC): 6 Sit to Lying (QC): 6 Lying-Sitting on Side/Bed(QC): 6 Sit to Stand (QC): 6 Chair/Idi-xa-Lnbku Xfer(QC): 6 Toilet Transfer (QC): 6 Walk 10 feet (QC): 6 Walk 50ft with 2 Turns (QC): 6 Walk 150 ft (QC): 6 PT Plan Treatment/Plan Treatment Plan: Continue Plan of Care Treatment Plan: Bed Mobility, Education, Functional Activity Noble, Functional Strength, Gait, Safety, Therapeutic Exercise, Transfers Treatment Duration: Aug 06, 2022 Frequency: 6 times per week Estimated Hrs Per Day: .25 hour per day Patient and/or Family Agrees t: Yes Safety Risks/Education Patient Education: Gait Training, Transfer Techniques, Correct Positioning, S afety Issues Teaching Recipient: Patient Teaching Methods: Demonstration, Discussion Response to Teaching: Verbalize Understanding, Return Demonstration, Reinforcement Needed Time Time In: 1040 Time Out: 1052 DATE: Aug 07, 2022 Total Billed Treatment Time: 12 Total Billed Treatment 1,GT12m DAISHA ESPINOSA INSULATION BOARD COATER OPERATOR Aug 07, 2022 10:57
[2022-08-07] MEDS: CALCIUM CARBONATE 500 MG (TUMS) TAB.CHEW PO PRN (11:25)
--- NOTE | 2022-08-07 11:47 | Progress Note ---
Subjective Subjective/Events-last exam Pt states she is feeling well today. She states she did okay with PT yesterday and remains anxious to go home as soon as possible. Objective Exam Last Set of Vital Signs Vital Signs Date Time Temp Pulse Resp B/P (MAP) Pulse Ox O2 Delivery O2 Flow Rate FiO2 08/07/22 08:45 Room Air 08/07/22 07:23 36.1 71 18 153/84 (107) 94 08/06/22 20:10 21 08/06/22 11:20 2.00 Capillary Refill : Less Than 3 Seconds I&O Intake and Output 08/07/22 00:00 Intake Total 1290 ml Output Total 450 ml Balance 840 ml Intake Oral 1290 ml Output Urine Total 450 ml # Voids 7 # Bowel Movements 5 General: Alert, No Acute Distress Lungs: Clear to Auscultation, Normal Air Movement Heart: Regular Rate, No Murmurs Skin: Other (both feet wrapped in dressings with no obvious drainage) Neuro: Normal Speech Psych/Mental Status: Mood NL Results/Procedures Lab Laboratory Tests 08/06/22 20:23: Glucometer 240H 08/07/22 05:23: White Blood Count 14.7H, Red Blood Count 3.54L, Hemoglobin 9.2L, Hematocrit 31L, Mean Corpuscular Volume 87, Mean Corpuscular Hemoglobin 26, Mean Corpuscular Hemoglobin Concent 30L, Red Cell Distribution Width 16.0H, Platelet Count 559H, Mean Platelet Volume 8.6L, Immature Granulocyte % (Auto) 1, Neutrophils (%) (Auto) 71, Lymphocytes (%) (Auto) 16, Monocytes (%) (Auto) 7, Eosinophils (%) (Auto) 5, Basophils (%) (Auto) 1, Neutrophils # (Auto) 10.5H, Lymphocytes # (Auto) 2.3, Monocytes # (Auto) 1.1H, Eosinophils # (Auto) 0.7H, Basophils # (Auto) 0.1, Immature Granulocyte # (Auto) 0.1, Sodium Level 143, Potassium Level 4.8, Chloride Level 113H, Carbon Dioxide Level 20L, Anion Gap 10, Blood Urea Nitrogen 11, Creatinine 2.62H, Estimat Glomerular Filtration Rate 21, BUN/Creatinine Ratio 4, Glucose Level 155H, Calcium Level 8.9, Corrected Calcium 10.0, Magnesium Level 1.8, Total Bilirubin 0.1, Aspartate Amino Transf (AST/SGOT) 29, Alanine Aminotransferase (ALT/SGPT) 17, Alkaline Phosphatase 90, Total Protein 6.6, Albumin 2.6L 08/07/22 05:33: Glucometer 124H 08/07/22 10:22: Urine Protein 15H, Urine Creatinine 37, Urine Protein/Creatinine Ratio 0.41 Microbiology 08/05/22 Gram Stain - Final, Resulted 08/05/22 Anaerobic Culture, Resulted Pending 08/05/22 Surgical Culture - Preliminary, Resulted Staphylococcus aureus 08/05/22 Fungal Culture 1 - Preliminary, Resulted Culture In Progress 08/04/22 MRSA Screen - Final, Complete MRSA not isolated 08/02/22 Urine Culture - Final, Complete YEAST Gram Pos Mixed Bacterial Erica 08/02/22 Blood Culture - Preliminary, Resulted No growth Radiology FOOT, BILATERAL, 3 VIEW INDICATION: Sepsis. Bilateral foot ulcers. COMPARISON: 06/27/2022. FINDINGS: RIGHT FOOT: Multiple radiographic views of the right foot were obtained. Patient is status post interval amputation of the great toe. There is prominent osteolytic process to the distal margins of the 1st metatarsal consistent with probable osteomyelitis. There is also soft tissue defect involving the distal tip of the 2nd toe with underlying osteolytic appearance to the tuft of the distal phalanx. Generalized soft tissue swelling is also noted. No unexpected radiopaque foreign bodies are seen. LEFT FOOT: Multiple radiographic views of the left foot were also obtained. There appears to be soft tissue defect of the medial margins of the great toe with generalized soft tissue swelling. There is a longitudinally oriented fracture extending through the distal and medial portions of the proximal phalanx with intra-articular extension. Findings are suggestive of acute fracture. Otherwise, no definite osteolytic process is seen. Evaluation of the remainder of the left foot again demonstrates nonhealed fracture of the 5th metatarsal. This is stable compared to 06/27/2022. No unexpected radiopaque foreign bodies are seen. IMPRESSION: 1. Osteolytic process to the distal portion of the right 1st metatarsal and right 2nd distal phalanx. Findings are strongly suggestive of underlying osteomyelitis. 2. New acute appearing fracture of the 1st proximal phalanx of the left foot. 3. Redemonstration of nonhealed fracture of the left 5th metatarsal. Assessment/Plan Assessment/Plan (1) Sepsis Status: Acute Assessment & Plan: Secondary to osteomyelitis and possibly UTI. Originally on Zosyn and Vancomycin, s/p excision of osteo and debridement of wound, changed to Augmentin on 08/06. (2) Osteomyelitis Status: Acute Assessment & Plan: Bilateral feet, s/p left great toe amputation and right partial ray amputation and second toe amputation. Qualifiers: Qualified Codes: M86.179 - Other acute osteomyelitis, unspecified ankle and foot (3) Diabetes mellitus, type 2 Status: Chronic Assessment & Plan: 08/02/22 outpatient A1c 6.6. On sliding scale insulin inpatient. Qualifiers: Qualified Codes: E11.621 - Type 2 diabetes mellitus with foot ulcer; L97.509 - Non-pressure chronic ulcer of other part of unspecified foot with unspecified severity (4) UTI (urinary tract infection) Status: Acute Assessment & Plan: UA suspicious on admit, mixed growth and yeast. (5) Hypertension Status: Chronic Qualifiers: Qualified Codes: I10 - Essential (primary) hypertension (6) Acute kidney failure Status: Acute Assessment & Plan: Suspect secondary to vanc/zosyn. Those were stopped 08/06. Will give a liter of NS today and repeat BMP later. Urine studies pending for further evaluation. (7) DVT prophylaxis Status: Acute Assessment & Plan: Enoxaparin Clinical Quality Measures DVT/VTE Risk/Contraindication: VTE Addressed: Yes VTE Present on Admission: No Contraindications-Mechi: Other *list below* Other: leg cellulitis GEO LOUISE MD Aug 07, 2022 11:47
[2022-08-07 13:40] LABS: CALCIUM 8.9 MG/DL (8.5-10.1)
[2022-08-07 13:44] LABS: CREATININE SERUM 2.67 MG/DL (0.60-1.30)
[2022-08-07 13:46] LABS: BILIRUBIN,URINE NEGATIVE (NEGATIVE); CLARITY,URINE CLEAR; COLOR,URINE YELLOW; GLUCOSE, URINE (UA) NEGATIVE (NEGATIVE); KETONES,URINE NEGATIVE (NEGATIVE); LEUKOCYTE ESTERASE ,URINE 1+ (NEGATIVE); NITRITE,URINE NEGATIVE (NEGATIVE); PH,URINE 5.5 (5-9); PROTEIN,URINE NEGATIVE (NEGATIVE)
[2022-08-07] MEDS ORDERED: amLODIPine 5 MG (NORVASC) TAB PO NR (14:00)
[2022-08-07 14:07] LABS: BACTERIA,URINE FEW /HPF; RBC,URINE 0-2 /HPF
[2022-08-07] MEDS ORDERED: cloNIDine 0.1 MG (CATAPRES) TAB PO NR (16:00)
--- NOTE | 2022-08-07 16:57 | Diagnostic Imaging Report ---
EXAMINATION: Abdomen, two views. HISTORY: Abdominal pain and vomiting. COMPARISON: None available. FINDINGS: An inferior vena cava filter is present deep in the pelvis, presumably in the left common iliac vein. No dilated bowel. No free air. Lung bases are clear. IMPRESSION: 1. No dilated bowel or free air. Dictated by: Dictated on workstation # [id number]
[2022-08-07] MEDS: ENOXAPARIN INJECTION 30 MG/0.3 ML SYR SC SCH (20:41)
[2022-08-07] MEDS: ARTIFICAL TEARS 0.4 ML UNIT DOSE (REFRESH PLUS) OU SCH (20:41)
[2022-08-07] MEDS ORDERED: NON-FORMULARY MEDICATION 1 EA EA (Cyclosporine (Restasis) 1 DROP) OU SCH (21:00)
[2022-08-07] MEDS: MELATONIN 3 MG TABLET PO PRN (21:24)
[2022-08-07] MEDS: ACETAMINOPHEN 325 MG TABLET PO PRN (21:24)
[2022-08-07] MEDS: diphenhydrAMINE 25 MG TAB (BENADRYL) PO PRN (21:24)
[2022-08-08] VITALS (7 sets, daily range): BP systolic 120–165; BP diastolic 63–98
[2022-08-08] MEDS: ACETAMINOPHEN 325 MG TABLET PO PRN (03:54)
[2022-08-08] MEDS: inSUlin ASPART (NovoLOG) 1 UNIT/0.01 ML (CHARGE PER UNIT) SC SCH ×4 (05:31→20:40)
[2022-08-08 05:40] LABS: BASOPHILS # (AUTO) 0.1 10^3/uL (0.0-0.1); BASOPHILS % (AUTO) 1 % (0-10); EOSINOPHILS # (AUTO) 0.5 10^3/uL (0.0-0.3); EOSINOPHILS % (AUTO) 5 % (0-10); HEMATOCRIT 29 % (35-52); HEMOGLOBIN 8.7 g/dL (11.5-16.0); LYMPHOCYTES # (AUTO) 2.8 10^3/uL (1.0-4.0); LYMPHOCYTES % (AUTO) 24 % (12-44); MEAN CORPUSCULAR HEMOGLOBIN 27 pg (25-34); MEAN CORPUSCULAR HGB CONC 31 g/dL (32-36); MEAN CORPUSCULAR VOLUME 87 fL (80-99); MEAN PLATELET VOLUME 8.8 fL (9.0-12.2); MONOCYTES # (AUTO) 0.9 10^3/uL (0.0-1.0); MONOCYTES % (AUTO) 8 % (0-12); NEUTROPHILS # (AUTO) 7.3 10^3/uL (1.8-7.8); NEUTROPHILS % (AUTO) 62 % (42-75); PLATELET COUNT 481 10^3/uL (130-400); WHITE BLOOD COUNT 11.8 10^3/uL (4.3-11.0)
[2022-08-08] MEDS: LEVOTHYROXINE 50 MCG (LEVOTHROID) TAB PO SCH (05:46)
[2022-08-08 05:53] LABS: ALBUMIN 2.5 GM/DL (3.2-4.5); POTASSIUM 4.3 MMOL/L (3.6-5.0)
[2022-08-08 05:54] LABS: CALCIUM 8.7 MG/DL (8.5-10.1)
[2022-08-08 05:56] LABS: TOTAL PROTEIN 6.2 GM/DL (6.4-8.2)
[2022-08-08 05:57] LABS: BILIRUBIN,TOTAL 0.2 MG/DL (0.1-1.0)
[2022-08-08 06:03] LABS: MAGNESIUM 1.8 MG/DL (1.6-2.4)
--- NOTE | 2022-08-08 06:29 | Progress Note - Surgery ---
GILBERTO FONSECA 08/08/22 0629: Subjective Date Seen by a Provider: Aug 08, 2022 Time Seen by a Provider: 06:25 Subjective/Events-last exam Patient is laying in bed comfortably, in good spirits ready to go home Had a episode of nausea, and abdominal pain last night that was helped with heating pad and has resolved Her post operative pain is well controlled at this time No other complaints currently Denies any diarrhea, fever, or chills Had a bowel movement yesterday Patient was able to do PT yesterday Chest X-ray from 08-07-2022 showed no dilated bowel or free air Labs reviewed Objective Exam Vital Signs Date Time Temp Pulse Resp B/P (MAP) Pulse Ox O2 Delivery O2 Flow Rate FiO2 08/08/22 04:24 148/74 (98) 08/08/22 03:46 36.1 75 18 165/98 (120) 93 Room Air 08/07/22 23:15 36.5 67 18 136/80 (98) 95 Room Air 08/07/22 20:41 Room Air 08/07/22 20:38 36.9 80 18 149/72 (97) 96 Room Air 08/07/22 16:30 36.8 75 18 178/84 (115) 97 Room Air 08/07/22 14:55 96 186/86 (119) 08/07/22 11:40 36.6 100 18 180/78 (112) 93 Room Air 08/07/22 08:45 Room Air 08/07/22 07:23 36.1 71 18 153/84 (107) 94 Room Air I & O 08/08/22 07:00 Intake Total 1200 ml Balance 1200 ml Capillary Refill : Less Than 3 Seconds General Appearance: No Apparent Distress, Obese HEENT: PERRL/EOMI, Normal ENT Inspection Neck: Normal Inspection, Supple Respiratory: Chest Non Tender, Lungs Clear, Normal Breath Sounds, No Accessory Muscle Use, No Respiratory Distress Cardiovascular: Regular Rate, Rhythm, No Edema, No Gallop, No JVD, No Murmur, Normal Peripheral Pulses Peripheral Pulses: 2+ Radial Pulses (R), 2+ Radial Pulses (L) Gastrointestinal: non tender, soft Extremity: Normal Inspection, Non Tender, No Pedal Edema, Other (Both feet currently bandaged with minimal leakage of left bandage.) Neurologic/Psychiatric: Alert, Oriented x3, Sensory Deficit (feet) Skin: Normal Color, Warm/Dry Lymphatic: No Adenopathy Results Lab Laboratory Tests 08/07/22 10:22: Urine Color YELLOW, Urine Clarity CLEAR, Urine pH 5.5, Urine Specific [place] 1.010L, Urine Protein NEGATIVE, Urine Glucose (UA) NEGATIVE, Urine Ketones NEGATIVE, Urine Nitrite NEGATIVE, Urine Bilirubin NEGATIVE, Urine Urobilinogen 0.2, Urine Leukocyte Esterase 1+H, Urine RBC (Auto) 1+H, Urine RBC 0-2, Urine WBC 2-5, Urine Squamous Epithelial Cells 10-25H, Urine Crystals NONE, Urine Bacteria FEWH, Urine Casts NONE, Urine Mucus NEGATIVE, Urine Culture Indicated YES, Urine Creatinine 37, Urine Protein/Creatinine Ratio 0.41 08/07/22 10:55: Urine Random Sodium 61 08/07/22 13:19: Sodium Level 143, Potassium Level 4.0, Chloride Level 112H, Carbon Dioxide Level 21, Anion Gap 10, Blood Urea Nitrogen 10, Creatinine 2.67H, Estimat Glomerular Filtration Rate 20, BUN/Creatinine Ratio 4, Glucose Level 199H, Calcium Level 8.9 08/07/22 17:04: Glucometer 166H 08/07/22 19:36: Glucometer 151H 08/08/22 05:27: Glucometer 106, White Blood Count 11.8H, Red Blood Count 3.27L, Hemoglobin 8.7L, Hematocrit 29L, Mean Corpuscular Volume 87, Mean Corpuscular Hemoglobin 27, Mean Corpuscular Hemoglobin Concent 31L, Red Cell Distribution Width 16.3H, Platelet Count 481H, Mean Platelet Volume 8.8L, Immature Granulocyte % (Auto) 1, Neutrophils (%) (Auto) 62, Lymphocytes (%) (Auto) 24, Monocytes (%) (Auto) 8, Eosinophils (%) (Auto) 5, Basophils (%) (Auto) 1, Neutrophils # (Auto) 7.3, Lymphocytes # (Auto) 2.8, Monocytes # (Auto) 0.9, Eosinophils # (Auto) 0.5H, Basophils # (Auto) 0.1, Immature Granulocyte # (Auto) 0.1, Sodium Level 142, Potassium Level 4.3, Carbon Dioxide Level 18L, Anion Gap 10, Blood Urea Nitrogen 10, Estimat Glomerular Filtration Rate 20, BUN/Creatinine Ratio 4, Glucose Level 143H, Calcium Level 8.7, Corrected Calcium 9.9, Magnesium Level 1.8, Total Bilirubin 0.2, Aspartate Amino Transf (AST/SGOT) 24, Alanine Aminotransferase (ALT/SGPT) 18, Alkaline Phosphatase 87, Total Protein 6.2L, Albumin 2.5L Microbiology 08/05/22 Gram Stain - Final, Resulted 08/05/22 Anaerobic Culture - Preliminary, Resulted No anaerobes isolated 08/05/22 Surgical Culture - Preliminary, Resulted Staphylococcus aureus 08/05/22 Fungal Culture 1 - Preliminary, Resulted Culture In Progress 08/04/22 MRSA Screen - Final, Complete MRSA not isolated 08/02/22 Urine Culture - Final, Complete YEAST Gram Pos Mixed Bacterial Erica 08/02/22 Blood Culture - Preliminary, Resulted No growth Radiology Date of Exam:08/07/22 ABDOMEN, FLAT & UPRIGHT/DECUB EXAMINATION: Abdomen, two views. HISTORY: Abdominal pain and vomiting. COMPARISON: None available. FINDINGS: An inferior vena cava filter is present deep in the pelvis, presumably in the left common iliac vein. No dilated bowel. No free air. Lung bases are clear. IMPRESSION: 1. No dilated bowel or free air. Assessment/Plan Assessment/Plan Assessment/Plan S/P -Left great toe amputation, right first partial ray amputation and second toe amputation, debridement of right foot ulcer 2 x 2 cm of skin, subcutaneous tissue and tendon. POD #3 Osteomyelitis of right foot (1st metatarsal and 2nd distal phalanx) and left foot (left great toe) Ulceration of right foot plantar surface and left plantar surface of great toe Sepsis secondary to UTI or foot infections. UTI Uncontrolled Type II diabetes-non compliant Bilateral non-traumatic foot fractures-one acute/ one non healed fracture LYDIA-worsening Continue oral antibiotics. Surgical wound culture acquired-grew staphylococcus aureus. Awaiting fungal culture Insulin as needed, maintain tight glycemic control. Monitor labs Pain control Continue PT Continue post op wound care Clinical Quality Measures DVT/VTE Risk/Contraindication: VTE Addressed: Yes VTE Present on Admission: No Contraindications-Mechi: Other *list below* Other: leg cellulitis RIDGE H[place] DO 08/09/22 1533: Subjective Subjective/Events-last exam Patient abdominal pain/discomfort that she was having yesterday improved. Creatinine slightly worsening. Pain controlled at operative feet sites. Denies nausea vomiting fever sweats chills shortness of breath or chest pain. Objective Exam General Appearance: No Apparent Distress, Obese HEENT: PERRL/EOMI, Normal ENT Inspection Neck: Normal Inspection, Supple Respiratory: No Accessory Muscle Use, No Respiratory Distress Cardiovascular: Regular Rate, Rhythm, No JVD Gastrointestinal: non tender, soft Extremity: Normal Inspection, Non Tender, Other (Bilateral feet wounds slowly improving less erythema no significant purulent drainage) Neurologic/Psychiatric: Alert, Oriented x3, Sensory Deficit (feet) Skin: Normal Color, Warm/Dry Lymphatic: No Adenopathy Assessment/Plan Assessment/Plan Assessment/Plan S/P -Left great toe amputation, right first partial ray amputation and second toe amputation, debridement of right foot ulcer 2 x 2 cm of skin, subcutaneous tissue and tendon. POD #3 Osteomyelitis of right foot (1st metatarsal and 2nd distal phalanx) and left foot (left great toe) Ulceration of right foot plantar surface and left plantar surface of great toe Sepsis secondary to UTI or foot infections. UTI Uncontrolled Type II diabetes-non compliant Bilateral non-traumatic foot fractures-one acute/ one non healed fracture LYDIA-worsening Continue oral antibiotics. Surgical wound culture acquired-grew staphylococcus aureus. Awaiting fungal culture Insulin as needed, maintain tight glycemic control. Monitor labs Pain control Continue PT Continue post op wound care Supervisory-Addendum Brief Verification & Attestation Participated in pt care: history, MDM, physical Personally performed: exam, history, MDM, supervision of care Care discussed with: Medical Student Procedures: n/a Results interpretation: Verified all documentation Verification and Attestation of Medical Student E/M Service A medical student performed and documented this service in my presence. I reviewed and verified all information documented by the medical student and made modifications to such information, when appropriate. I personally performed the physical exam and medical decision making. [place], Aug 08, 2022,18:54 GILBERTO FONSECA Aug 08, 2022 06:29 RIDGE HILL DO Aug 09, 2022 17:55
[2022-08-08 06:47] LABS: CREATININE SERUM 2.66 MG/DL (0.60-1.30)
[2022-08-08] MEDS: AUGMENTIN 500 MG TAB (AMOXICILLIN/CLAVULANATE) PO SCH ×2 (08:25→17:21)
[2022-08-08] MEDS: ARTIFICAL TEARS 0.4 ML UNIT DOSE (REFRESH PLUS) OU SCH ×2 (08:26→19:49)
[2022-08-08] MEDS: MULTIVIT W/MINERALS TAB (THERAGRAN M) PO SCH (08:26)
[2022-08-08] MEDS: amLODIPine 5 MG (NORVASC) TAB PO SCH (08:26)
[2022-08-08] MEDS: PANTOPRAZOLE 40 MG (PROTONIX) TAB PO SCH (08:26)
[2022-08-08] MEDS: DOCUSATE SODIUM 100 MG (COLACE) CAP PO SCH ×2 (08:27→19:48)
[2022-08-08] MEDS: SENNOSIDES 8.6 MG (SENOKOT) TAB PO SCH ×2 (08:28→19:49)
--- NOTE | 2022-08-08 09:37 | Physical Therapy Daily Note ---
PT Daily Note-Current Subjective Pt. agrees to Rx, feeling better today Pain Location: No Pain Reported Section J - Health Conditions 1. Rarely or not at all 2. Occasionally 3. Frequently 4. Almost constantly 8. Unable to answer Pain Effect on Sleep: 1 Pain Interference with Therapy: 1 Pain Interference w/Day-to-Day: 1 Mental Status Patient Orientation: Normal For Age Transfers SCALE: Activities may be completed with or without assistive devices. 9-Laohxbufts-cwepyqh completes the activity by him/herself with no assistance from a helper. 5-Set-up or Clean-up Assistance-helper sets up or cleans up; patient completes activity. [place] assists only prior to or following the activity. 4-Supervision or Touching Assistance-helper provides verbal cues and/or touching/steadying and/or contact guard assistance as patient completes activity. Assistance may be provided throughout the activity or intermittently. 3-Partial/Moderate Assistance-helper does LESS THAN HALF the effort. [place] lifts, holds or supports trunk or limbs, but provides less than half the effort. 2-Substantial/Maximal Assistance-helper does MORE THAN HALF the effort. [place] lifts or holds trunk or limbs and provides more than half the effort. 8-Zdkuvqmdu-tmgong does ALL the effort. Patient does none of the effort to complete the activity. Or, the assistance of 2 or more helpers is required for the patient to complete the activity. If activity was not attempted, code reason: 7-Patient Refused. 9-Not Applicable-not attempted and the patient did not perform the activity before the current illness, exacerbation or injury. 10-Not Attempted due to Environmental Limitations-(lack of equipment, weather restraints, etc.). 88-Not Attempted due to Medical Conditions or Safety Concerns. all TRFs mod I Weight Bearing Right Lower Extremity: Right Weight Bearing/Tolerated Left Lower Extremity: Left Weight Bearing/Tolerated nurse states doctor says patient needs to bear weight on her heels Gait Training Does the Patient Walk?: Yes Gait Assistive Device: FWW pt. ambulates wt bearing on bilat heels with improved balance over yesterday. pt. instructed to keep hands on walker for increased balance and safety, pt. frequently wants to talk using her hands. Exercises Seated Therapy Exercises: Ankle pumps, Sit to stand, Long arc quads, Hip flexion, Hip abd/add Seated Reps: 12 Assessment Current Status: Good Progress PT Alf Goals Laundry Machine Mechanic Goals PT Alf Goals Time Frame: Aug 13, 2022 Roll Left & Right (QC): 6 Sit to Lying (QC): 6 Lying-Sitting on Side/Bed(QC): 6 Sit to Stand (QC): 6 Chair/Oab-zf-Ozfrc Xfer(QC): 6 Toilet Transfer (QC): 6 Walk 10 feet (QC): 6 Walk 50ft with 2 Turns (QC): 6 Walk 150 ft (QC): 6 PT Plan Treatment/Plan Treatment Plan: Continue Plan of Care Treatment Plan: Bed Mobility, Education, Functional Activity Noble, Functional Strength, Gait, Safety, Therapeutic Exercise, Transfers Treatment Duration: Aug 06, 2022 Frequency: 6 times per week Estimated Hrs Per Day: .25 hour per day Patient and/or Family Agrees t: Yes Safety Risks/Education Patient Education: Gait Training, Transfer Techniques, Correct Positioning, Safety Issues Teaching Recipient: Patient Teaching Methods: Demonstration, Discussion Response to Teaching: Verbalize Understanding, Return Demonstration, Reinforcement Needed Time Time In: 805 Time Out: 825 DATE: Aug 08, 2022 Total Billed Treatment Time: 20 Total Billed Treatment 1,GT20m DAISHA ESPINOSA REACH TRUCK OPERATOR Aug 08, 2022 09:37
--- NOTE | 2022-08-08 15:05 | Progress Note ---
Subjective Subjective/Events-last exam Pt had significant abdominal pain that felt like tight squeeze yesterday after lunch. That gets better with heating pad, but today she also has had diarrhea and does get recurrent pain without heating pad. She didn't eat any dinner and had minimal breakfast due to this. Other than that, she feels good. Objective Exam Last Set of Vital Signs Vital Signs Date Time Temp Pulse Resp B/P (MAP) Pulse Ox O2 Delivery O2 Flow Rate FiO2 08/08/22 12:00 36.3 73 18 134/63 (86) 97 Room Air 08/06/22 20:10 21 08/06/22 11:20 2.00 Capillary Refill : Less Than 3 Seconds I&O Intake and Output 08/08/22 00:00 Intake Total 1275 ml Balance 1275 ml Intake Oral 1275 ml # Voids 9 # Bowel Movements 4 # [place] 1 General: Alert, No Acute Distress Lungs: Clear to Auscultation, Normal Air Movement Heart: Regular Rate, No Murmurs Abdomen: Normal Bowel Sounds, Soft, Other (induration in abdominal wall just below umbilicus, pt relates to previous mesh) Extremities: Other Psych/Mental Status: Mood NL Results/Procedures Lab Laboratory Tests 08/07/22 17:04: Glucometer 166H 08/07/22 19:36: Glucometer 151H 08/08/22 05:27: Glucometer 106, White Blood Count 11.8H, Red Blood Count 3.27L, Hemoglobin 8.7L, Hematocrit 29L, Mean Corpuscular Volume 87, Mean Corpuscular Hemoglobin 27, Mean Corpuscular Hemoglobin Concent 31L, Red Cell Distribution Width 16.3H, Platelet Count 481H, Mean Platelet Volume 8.8L, Immature Granulocyte % (Auto) 1, Neutrophils (%) (Auto) 62, Lymphocytes (%) (Auto) 24, Monocytes (%) (Auto) 8, Eosinophils (%) (Auto) 5, Basophils (%) (Auto) 1, Neutrophils # (Auto) 7.3, Lymphocytes # (Auto) 2.8, Monocytes # (Auto) 0.9, Eosinophils # (Auto) 0.5H, Basophils # (Auto) 0.1, Immature Granulocyte # (Auto) 0.1, Sodium Level 142, Potassium Level 4.3, Chloride Level 114H, Carbon Dioxide Level 18L, Anion Gap 10, Blood Urea Nitrogen 10, Creatinine 2.66H, Estimat Glomerular Filtration Rate 20, BUN/Creatinine Ratio 4, Glucose Level 143H, Calcium Level 8.7, Corrected Calcium 9.9, Magnesium Level 1.8, Total Bilirubin 0.2, Aspartate Amino Transf (AST/SGOT) 24, Alanine Aminotransferase (ALT/SGPT) 18, Alkaline Phosphatase 87, Total Protein 6.2L, Albumin 2.5L 08/08/22 11:03: Glucometer 170H Microbiology 08/07/22 Urine Culture - Final, Complete YEAST 08/05/22 Gram Stain - Final, Resulted 08/05/22 Anaerobic Culture - Preliminary, Resulted No anaerobes isolated 08/05/22 Surgical Culture - Final, Resulted Staphylococcus aureus 08/05/22 Fungal Culture 1 - Preliminary, Resulted Culture In Progress 08/04/22 MRSA Screen - Final, Complete MRSA not isolated 08/02/22 Blood Culture - Preliminary, Resulted No growth Radiology FOOT, BILATERAL, 3 VIEW INDICATION: Sepsis. Bilateral foot ulcers. COMPARISON: 06/27/2022. FINDINGS: RIGHT FOOT: Multiple radiographic views of the right foot were obtained. Patient is status post interval amputation of the great toe. There is prominent osteolytic process to the distal margins of the 1st metatarsal consistent with probable osteomyelitis. There is also soft tissue defect involving the distal tip of the 2nd toe with underlying osteolytic appearance to the tuft of the distal phalanx. Generalized soft tissue swelling is also noted. No unexpected radiopaque foreign bodies are seen. LEFT FOOT: Multiple radiographic views of the left foot were also obtained. There appears to be soft tissue defect of the medial margins of the great toe with generalized soft tissue swelling. There is a longitudinally oriented fracture extending through the distal and medial portions of the proximal phalanx with intra-articular extension. Findings are suggestive of acute fracture. Otherwise, no definite osteolytic process is seen. Evaluation of the remainder of the left foot again demonstrates nonhealed fracture of the 5th metatarsal. This is stable compared to 06/27/2022. No unexpected radiopaque foreign bodies are seen. IMPRESSION: 1. Osteolytic process to the distal portion of the right 1st metatarsal and right 2nd distal phalanx. Findings are strongly suggestive of underlying osteomyelitis. 2. New acute appearing fracture of the 1st proximal phalanx of the left foot. 3. Redemonstration of nonhealed fracture of the left 5th metatarsal. Assessment/Plan Assessment/Plan (1) Sepsis Status: Acute Assessment & Plan: Secondary to osteomyelitis and possibly UTI. Originally on Zosyn and Vancomycin on admit 08/02, s/p excision of osteo and debridement of wound, changed to Augmentin on 08/06. (2) Osteomyelitis Status: Acute Assessment & Plan: Bilateral feet, s/p left great toe amputation and right part ial ray amputation and second toe amputation. Qualifiers: Qualified Codes: M86.179 - Other acute osteomyelitis, unspecified ankle and foot (3) Diabetes mellitus, type 2 Status: Chronic Assessment & Plan: 08/02/22 outpatient A1c 6.6. On sliding scale insulin inpatient. Qualifiers: Qualified Codes: E11.621 - Type 2 diabetes mellitus with foot ulcer; L97.509 - Non-pressure chronic ulcer of other part of unspecified foot with unspecified severity (4) UTI (urinary tract infection) Status: Resolved Assessment & Plan: UA suspicious on admit, mixed growth and yeast. (5) Hypertension Status: Chronic Qualifiers: Qualified Codes: I10 - Essential (primary) hypertension (6) Acute kidney failure Status: Acute Assessment & Plan: Suspect secondary to vanc/zosyn. Those were stopped 08/06. Will give a liter of NS today and repeat BMP later. Urine studies pending for further evaluation. 08/08- repeat BMP after fluid with no significant improvement, this morning her creatinine is minimally decreased. FeNa 3.09% consistent with ATN. Suspect secondary to zosyn/vanc, possibly has hit max creatinine, will continue to monitor. (7) Abdominal pain Status: Acute Assessment & Plan: KUB on 08/07 unremarkable, suspect antibiotic induced, will try to d/c antibiotics as soon as okay with Surgery after their eval of wound post-op. (8) Diarrhea Status: Acute Assessment & Plan: Suspect antibiotic induced. Add probiotic. (9) DVT prophylaxis Status: Acute Assessment & Plan: Enoxaparin Clinical Quality Measures DVT/VTE Risk/Contraindication: VTE Addressed: Yes VTE Present on Admission: No Contraindications-Mechi: Other *list below* Other: leg cellulitis GEO LOUISE MD Aug 08, 2022 15:05
[2022-08-08] MEDS: LACTOBACILLUS ACIDOPHILUS (PROBIOTIC) CAPSULE PO SCH (17:21)
[2022-08-08] MEDS: CALCIUM CARBONATE 500 MG (TUMS) TAB.CHEW PO PRN (19:48)
[2022-08-08] MEDS: ENOXAPARIN INJECTION 30 MG/0.3 ML SYR SC SCH (20:38)
[2022-08-08] MEDS: MELATONIN 3 MG TABLET PO PRN (23:19)
[2022-08-08] MEDS: ANTACID SUSP 30 ML UDC (MYLANTA) PO PRN (23:19)
[2022-08-09 03:31] VITALS: BP 137/75
[2022-08-09] MEDS: ACETAMINOPHEN 325 MG TABLET PO PRN (04:56)
[2022-08-09] MEDS: LEVOTHYROXINE 50 MCG (LEVOTHROID) TAB PO SCH (04:56)
[2022-08-09 05:59] LABS: BASOPHILS # (AUTO) 0.1 10^3/uL (0.0-0.1); BASOPHILS % (AUTO) 1 % (0-10); EOSINOPHILS # (AUTO) 0.5 10^3/uL (0.0-0.3); EOSINOPHILS % (AUTO) 4 % (0-10); HEMATOCRIT 29 % (35-52); HEMOGLOBIN 8.7 g/dL (11.5-16.0); LYMPHOCYTES # (AUTO) 2.5 10^3/uL (1.0-4.0); LYMPHOCYTES % (AUTO) 20 % (12-44); MEAN CORPUSCULAR HEMOGLOBIN 26 pg (25-34); MEAN CORPUSCULAR HGB CONC 30 g/dL (32-36); MEAN CORPUSCULAR VOLUME 86 fL (80-99); MEAN PLATELET VOLUME 8.8 fL (9.0-12.2); MONOCYTES # (AUTO) 1.1 10^3/uL (0.0-1.0); MONOCYTES % (AUTO) 8 % (0-12); NEUTROPHILS # (AUTO) 8.6 10^3/uL (1.8-7.8); NEUTROPHILS % (AUTO) 67 % (42-75); PLATELET COUNT 497 10^3/uL (130-400); WHITE BLOOD COUNT 12.8 10^3/uL (4.3-11.0)
[2022-08-09 06:05] LABS: ALBUMIN 2.5 GM/DL (3.2-4.5); POTASSIUM 4.4 MMOL/L (3.6-5.0)
[2022-08-09 06:06] LABS: CALCIUM 8.4 MG/DL (8.5-10.1)
[2022-08-09 06:07] LABS: TOTAL PROTEIN 6.3 GM/DL (6.4-8.2)
[2022-08-09 06:09] LABS: BILIRUBIN,TOTAL 0.2 MG/DL (0.1-1.0)
[2022-08-09 06:11] LABS: CREATININE SERUM 2.86 MG/DL (0.60-1.30)
[2022-08-09 06:14] LABS: MAGNESIUM 1.8 MG/DL (1.6-2.4)
[2022-08-09] MEDS: inSUlin ASPART (NovoLOG) 1 UNIT/0.01 ML (CHARGE PER UNIT) SC SCH ×4 (06:36→21:59)
--- NOTE | 2022-08-09 06:37 | Progress Note - Surgery ---
GILBERTO FONSECA 08/09/22 0637: Subjective Date Seen by a Provider: Aug 09, 2022 Time Seen by a Provider: 06:30 Subjective/Events-last exam Patient is laying in bed comfortably, slept well last night Had a episode of nausea after dinner last night but took a TUMS and felt better Her post operative pain is well controlled at this time No other complaints currently Denies any fever, chills, or abdominal pain Had a bowel movement yesterday afternoon, it was diarrhea Patient was able to do PT yesterday- walking well, balance improving Labs reviewed Objective Exam Vital Signs Date Time Temp Pulse Resp B/P (MAP) Pulse Ox O2 Delivery O2 Flow Rate FiO2 08/09/22 03:31 37.3 73 18 137/75 (95) 94 Room Air 08/08/22 23:22 37.1 79 18 163/91 (115) 99 Room Air 08/08/22 20:00 36.3 83 20 160/93 (115) 97 Room Air 08/08/22 19:50 Room Air 08/08/22 15:55 36.3 83 20 120/70 (87) 97 Room Air 08/08/22 12:00 36.3 73 18 134/63 (86) 97 Room Air 08/08/22 08:00 Room Air 08/08/22 08:00 36.3 67 16 133/64 (87) 97 Room Air I & O 08/09/22 07:00 Intake Total 1550 ml Output Total 1050 ml Balance 500 ml Capillary Refill : Less Than 3 Seconds General Appearance: No Apparent Distress, Obese HEENT: PERRL/EOMI, Normal ENT Inspection Neck: Normal Inspection, Supple Respiratory: Chest Non Tender, Lungs Clear, Normal Breath Sounds, No Accessory Muscle Use, No Respiratory Distress Cardiovascular: Regular Rate, Rhythm, No Edema, No Gallop, No JVD, No Murmur, Normal Peripheral Pulses Peripheral Pulses: 2+ Radial Pulses (R), 2+ Radial Pulses (L) Gastrointestinal: non tender, soft Extremity: Other (Operation sites of left and right foot are healing well, no sign of infection. Tissue maintaing.) Neurologic/Psychiatric: Alert, Oriented x3, Sensory Deficit (feet) Skin: Normal Color, Warm/Dry; No Erythema Lymphatic: No Adenopathy Results Lab Laboratory Tests 08/08/22 11:03: Glucometer 170H 08/08/22 16:00: Glucometer 167H 08/08/22 20:26: Glucometer 159H 08/09/22 05:28: White Blood Count 12.8H, Red Blood Count 3.36L, Hemoglobin 8.7L, Hematocrit 29L, Mean Corpuscular Volume 86, Mean Corpuscular Hemoglobin 26, Mean Corpuscular Hemoglobin Concent 30L, Red Cell Distribution Width 16.2H, Platelet Count 497H, Mean Platelet Volume 8.8L, Immature Granulocyte % (Auto) 1, Neutrophils (%) (Auto) 67, Lymphocytes (%) (Auto) 20, Monocytes (%) (Auto) 8, Eosinophils (%) (Auto) 4, Basophils (%) (Auto) 1, Neutrophils # (Auto) 8.6H, Lymphocytes # (Auto) 2.5, Monocytes # (Auto) 1.1H, Eosinophils # (Auto) 0.5H, Basophils # (Auto) 0.1, Immature Granulocyte # (Auto) 0.1, Sodium Level 142, Potassium Level 4.4, Chloride Level 112H, Carbon Dioxide Level 19L, Anion Gap 11, Blood Urea Nitrogen 11, Creatinine 2.86H, Estimat Glomerular Filtration Rate 19, BUN/Creatinine Ratio 4, Glucose Level 156H, Calcium Level 8.4L, Corrected Calcium 9.6, Magnesium Level 1.8, Total Bilirubin 0.2, Aspartate Amino Transf (AST/SGOT) 23, Alanine Aminotransferase (ALT/SGPT) 21, Alkaline Phosphatase 91, Total Protein 6.3L, Albumin 2.5L Microbiology 08/07/22 Urine Culture - Final, Complete YEAST 08/05/22 Gram Stain - Final, Resulted 08/05/22 Anaerobic Culture - Preliminary, Resulted No anaerobes isolated 08/05/22 Surgical Culture - Final, Resulted Staphylococcus aureus 08/05/22 Fungal Culture 1 - Preliminary, Resulted Culture In Progress 08/04/22 MRSA Screen - Final, Complete MRSA not isolated 08/02/22 Blood Culture - Final, Complete No growth Assessment/Plan Assessment/Plan Assessment/Plan S/P -Left great toe amputation, right first partial ray amputation and second toe amputation, debridement of right foot ulcer 2 x 2 cm of skin, subcutaneous tissue and tendon. POD #4 Osteomyelitis of right foot (1st metatarsal and 2nd distal phalanx) and left foot (left great toe) Ulceration of right foot plantar surface and left plantar surface of great toe Sepsis secondary to UTI or foot infections. UTI Uncontrolled Type II diabetes-non compliant Bilateral non-traumatic foot fractures-one acute/ one non healed fracture LYDIA-worsening- creatinine at 2.86 from 2.66 yesterday Continue oral antibiotics. Surgical wound culture acquired-grew staphylococcus aureus. Awaiting fungal culture Insulin as needed, maintain tight glycemic control. Monitor labs Pain control Continue PT Continue post op wound care Clinical Quality Measures DVT/VTE Risk/Contraindication: VTE Addressed: Yes VTE Present on Admission: No Contraindications-Mechi: Other *list below* Other: leg cellulitis LUCILA HILL DO 08/09/221800: Subjective Subjective/Events-last exam Patient today doing well. She is a little bit bummed about her creatinine continued to increase. She has no abdominal pain. She states she is tolerating diet. She is continuing to work with physical therapy and ambulating. She denies any nausea vomiting fever sweats chills shortness of breath or chest pain at this time. Objective Exam General Appearance: No Apparent Distress, Obese HEENT: PERRL/EOMI, Normal ENT Inspection Neck: Normal Inspection, Supple Respiratory: Chest Non Tender, No Accessory Muscle Use, No Respiratory Distress Cardiovascular: Regular Rate, Rhythm, No JVD Gastrointestinal: non tender, soft Extremity: Other (The open wounds continue to slowly improve. No significant purulent drainage.) Neurologic/Psychiatric: Alert, Oriented x3, Sensory Deficit (feet) Skin: Normal Color, Warm/Dry Lymphatic: No Adenopathy Assessment/Plan Assessment/Plan Assessment/Plan S/P -Left great toe amputation, right first partial ray amputation and second toe amputation, debridement of right foot ulcer 2 x 2 cm of skin, subcutaneous tissue and tendon. POD #4 Osteomyelitis of right foot (1st metatarsal and 2nd distal phalanx) and left foot (left great toe) Ulceration of right foot plantar surface and left plantar surface of great toe Sepsis secondary to UTI or foot infections. UTI Uncontrolled Type II diabetes-non compliant Bilateral non-traumatic foot fractures-one acute/ one non healed fracture LYDIA-worsening- creatinine at 2.86 from 2.66 yesterday Continue antibiotics. Surgical wound culture acquired-grew staphylococcus aureus. Awaiting fungal culture Insulin as needed, maintain tight glycemic control. Monitor labs Pain control Continue PT Continue post op wound care Supervisory-Addendum Brief Verification & Attestation Participated in pt care: history, MDM, physical Personally performed: exam, history, MDM, supervision of care Care discussed with: Medical Student Procedures: n/a Results interpretation: Verified all documentation Verification and Attestation of Medical Student E/M Service A medical student performed and documented this service in my presence. I reviewed and verified all information documented by the medical student and made modifications to such information, when appropriate. I personally performed the physical exam and medical decision making. Lucila Hill, Aug 09, 2022,18:02 GILBERTO FONSECA Aug 09, 2022 06:37 LUCILA HILL DO Aug 09, 2022 18:01
[2022-08-09 07:53] VITALS: BP 158/76
[2022-08-09] MEDS: NS IV 1000 ML 1,000 ML IV SCH ×2 (08:46→16:57)
[2022-08-09] MEDS: ARTIFICAL TEARS 0.4 ML UNIT DOSE (REFRESH PLUS) OU SCH ×2 (08:51→20:33)
[2022-08-09] MEDS: AUGMENTIN 500 MG TAB (AMOXICILLIN/CLAVULANATE) PO SCH ×2 (08:51→16:54)
[2022-08-09] MEDS: MULTIVIT W/MINERALS TAB (THERAGRAN M) PO SCH (08:52)
[2022-08-09] MEDS: amLODIPine 5 MG (NORVASC) TAB PO SCH (08:52)
[2022-08-09] MEDS: LACTOBACILLUS ACIDOPHILUS (PROBIOTIC) CAPSULE PO SCH ×3 (08:52→16:55)
[2022-08-09] MEDS: PANTOPRAZOLE 40 MG (PROTONIX) TAB PO SCH (08:52)
[2022-08-09] MEDS: SENNOSIDES 8.6 MG (SENOKOT) TAB PO SCH ×2 (08:52→21:00)
[2022-08-09] MEDS: DOCUSATE SODIUM 100 MG (COLACE) CAP PO SCH ×2 (08:52→21:00)
--- NOTE | 2022-08-09 10:56 | Progress Note ---
Subjective Subjective/Events-last exam Pt states she is feeling okay, she had several small loose bowel movements yesterday through the day, none during the night, and a large loose stool this morning. Objective Exam Last Set of Vital Signs Vital Signs Date Time Temp Pulse Resp B/P (MAP) Pulse Ox O2 Delivery O2 Flow Rate FiO2 08/09/22 07:53 36.6 76 18 158/76 (103) 96 Room Air 08/06/22 20:10 21 08/06/22 11:20 2.00 Capillary Refill : Less Than 3 Seconds I&O Intake and Output 08/09/22 00:00 Intake Total 1600 ml Output Total 300 ml Balance 1300 ml Intake Oral 1600 ml Output Urine Total 300 ml # Voids 7 # Bowel Movements 8 General: Alert, No Acute Distress Lungs: Clear to Auscultation, Normal Air Movement Heart: Regular Rate, No Murmurs Abdomen: Normal Bowel Sounds, Soft Neuro: Normal Speech Psych/Mental Status: Mood NL Results/Procedures Lab Laboratory Tests 08/08/22 11:03: Glucometer 170H 08/08/22 16:00: Glucometer 167H 08/08/22 20:26: Glucometer 159H 08/09/22 05:28: White Blood Count 12.8H, Red Blood Count 3.36L, Hemoglobin 8.7L, Hematocrit 29L, Mean Corpuscular Volume 86, Mean Corpuscular Hemoglobin 26, Mean Corpuscular Hemoglobin Concent 30L, Red Cell Distribution Width 16.2H, Platelet Count 497H, Mean Platelet Volume 8.8L, Immature Granulocyte % (Auto) 1, Neutrophils (%) (Auto) 67, Lymphocytes (%) (Auto) 20, Monocytes (%) (Auto) 8, Eosinophils (%) (Auto) 4, Basophils (%) (Auto) 1, Neutrophils # (Auto) 8.6H, Lymphocytes # (Auto) 2.5, Monocytes # (Auto) 1.1H, Eosinophils # (Auto) 0.5H, Basophils # (Auto) 0.1, Immature Granulocyte # (Auto) 0.1, Sodium Level 142, Potassium Level 4.4, Chloride Level 112H, Carbon Dioxide Level 19L, Anion Gap 11, Blood Urea Nitrogen 11, Creatinine 2.86H, Estimat Glomerular Filtration Rate 19, BUN/Creatinine Ratio 4, Glucose Level 156H, Calcium Level 8.4L, Corrected Calcium 9.6, Magnesium Level 1.8, Total Bilirubin 0.2, Aspartate Amino Transf (AST/SGOT) 23, Alanine Aminotransferase (ALT/SGPT) 21, Alkaline Phosphatase 91, Total Protein 6.3L, Albumin 2.5L Microbiology 08/07/22 Urine Culture - Final, Complete YEAST 08/05/22 Gram Stain - Final, Resulted 08/05/22 Anaerobic Culture - Preliminary, Resulted No anaerobes isolated 08/05/22 Surgical Culture - Final, Resulted Staphylococcus aureus 08/05/22 Fungal Culture 1 - Preliminary, Resulted Culture In Progress 08/04/22 MRSA Screen - Final, Complete MRSA not isolated 08/02/22 Blood Culture - Final, Complete No growth Radiology FOOT, BILATERAL, 3 VIEW INDICATION: Sepsis. Bilateral foot ulcers. COMPARISON: 06/27/2022. FINDINGS: RIGHT FOOT: Multiple radiographic views of the right foot were obtained. Patient is status post interval amputation of the great toe. There is prominent osteolytic process to the distal margins of the 1st metatarsal consistent with probable osteomyelitis. There is also soft tissue defect involving the distal tip of the 2nd toe with underlying osteolytic appearance to the tuft of the distal phalanx. Generalized soft tissue swelling is also noted. No unexpected radiopaque foreign bodies are seen. LEFT FOOT: Multiple radiographic views of the left foot were also obtained. There appears to be soft tissue defect of the medial margins of the great toe with generalized soft tissue swelling. There is a longitudinally oriented fracture extending through the distal and medial portions of the proximal phalanx with intra-articular extension. Findings are suggestive of acute fracture. Otherwise, no definite osteolytic process is seen. Evaluation of the remainder of the left foot again demonstrates nonhealed fracture of the 5th metatarsal. This is stable compared to 06/27/2022. No unexpected radiopaque foreign bodies are seen. IMPRESSION: 1. Osteolytic process to the distal portion of the right 1st metatarsal and right 2nd distal phalanx. Findings are strongly suggestive of underlying osteomyelitis. 2. New acute appearing fracture of the 1st proximal phalanx of the left foot. 3. Redemonstration of nonhealed fracture of the left 5th metatarsal. Assessment/Plan Assessment/Plan (1) Sepsis Status: Acute Assessment & Plan: Secondary to osteomyelitis and possibly UTI. Originally on Zosyn and Vancomycin on admit 08/02, s/p excision of osteo and debridement of wound, changed to Augmentin on 08/06. (2) Osteomyelitis Status: Acute Assessment & Plan: Bilateral feet, s/p left great toe amputation and right partial ray amputation and second toe amputation. Qualifiers: Qualified Codes: M86.179 - Other acute osteomyelitis, unspecified ankle and foot (3) Diabetes mellitus, type 2 Status: Chronic Assessment & Plan: 08/02/22 outpatient A1c 6.6. On sliding scale insulin inpatient. Qualifiers: Qualified Codes: E11.621 - Type 2 diabetes mellitus with foot ulcer; L97.509 - Non-pressure chronic ulcer of other part of unspecified foot with unspecified severity (4) UTI (urinary tract infection) Status: Resolved Assessment & Plan: UA suspicious on admit, mixed growth and yeast. (5) Hypertension Status: Chronic Qualifiers: Qualified Codes: I10 - Essential (primary) hypertension (6) Acute kidney failure Status: Acute Assessment & Plan: Suspect secondary to vanc/zosyn. Those were stopped 08/06. Will give a liter of NS today and repeat BMP later. Urine studies pending for further evaluation. 08/08- repeat BMP after fluid with no significant improvement, this morning her creatinine is minimally decreased. FeNa 3.09% consistent with ATN. Suspect secondary to zosyn/vanc, possibly has hit max creatinine, will continue to monitor. 08/09- Creatinine slightly increased again today, consulted Nephrology who agree with above, also recommended checking post-void residual, which was essentially zero. Will give a liter of fluid again today given diarrhea yesterday. (7) Abdominal pain Status: Acute Assessment & Plan: KUB on 08/07 unremarkable, suspect antibiotic induced, will try to d/c antibiotics as soon as okay with Surgery after their eval of wound post-op. (8) Diarrhea Status: Acute Assessment & Plan: Suspect antibiotic induced. Add probiotic. (9) DVT prophylaxis Status: Acute Assessment & Plan: Enoxaparin Clinical Quality Measures DVT/VTE Risk/Contraindication: VTE Addressed: Yes VTE Present on Admission: No Contraindications-Mechi: Other *list below* Other: leg cellulitis GEO LOUISE MD Aug 09, 2022 10:56
[2022-08-09 11:00] VITALS: BP 153/74
--- NOTE | 2022-08-09 11:26 | Physical Therapy Daily Note ---
PT Daily Note-Current Subjective Patient in bed pre-tx, reports no pain, agrees to PT. Pain Section J - Health Conditions 1. Rarely or not at all 2. Occasionally 3. Frequently 4. Almost constantly 8. Unable to answer Pain Effect on Sleep: 1 Pain Interference with Therapy: 1 Pain Interference w/Day-to-Day: 1 Appearance Patient in bed post-tx with nurse call, tray, phone, all needs met. Mental Status Patient Orientation: Person, Place, Situation Attachments: IV Transfers SCALE: Activities may be completed with or without assistive devices. 5-Kkxjvuouug-cjfoypt completes the activity by him/herself with no assistance from a helper. 5-Set-up or Clean-up Assistance-helper sets up or cleans up; patient completes activity. [place] assists only prior to or following the activity. 4-Supervision or Touching Assistance-helper provides verbal cues and/or touching/steadying and/or contact guard assistance as patient completes activity. Assistance may be provided throughout the activity or intermittently. 3-Partial/Moderate Assistance-helper does LESS THAN HALF the effort. [place] lifts, holds or supports trunk or limbs, but provides less than half the effort. 2-Substantial/Maximal Assistance-helper does MORE THAN HALF the effort. [place] lifts or holds trunk or limbs and provides more than half the effort. 7-Bhojbinem-nlcrbx does ALL the effort. Patient does none of the effort to complete the activity. Or, the assistance of 2 or more helpers is required for the patient to complete the activity. If activity was not attempted, code reason: 7-Patient Refused. 9-Not Applicable-not attempted and the patient did not perform the activity before the current illness, exacerbation or injury. 10-Not Attempted due to Environmental Limitations-(lack of equipment, weather restraints, etc.). 88-Not Attempted due to Medical Conditions or Safety Concerns. Roll Left & Right (QC): 4 Sit to Lying (QC): 4 Lying to Sitting/Side of Bed(Q: 4 Sit to Stand (QC): 4 SBA for all Weight Bearing Right Lower Extremity: Right Weight Bearing/Tolerated Left Lower Extremity: Left Weight Bearing/Tolerated nurse states doctor says patient needs to bear weight on her heels Gait Training Distance: 150' Walk 10 feet (QC): 4 Walk 50 ft with 2 Turns(QC): 4 Walk 150 ft (QC): 4 Gait Persons Needed: 1 Gait Assistive Device: FWW SBA for ambulation, patient walks on heels per protocol Treatments FA Assessment Current Status: Fair Progress Patient abides by heel walking protocol and does not need much help at all. PT Assisted Goals Sales Vice President Goals PT Assisted Goals Time Frame: Aug 13, 2022 Roll Left & Right (QC): 6 Sit to Lying (QC): 6 Lying-Sitting on Side/Bed(QC): 6 Sit to Stand (QC): 6 Chair/Ten-cz-Msvvj Xfer(QC): 6 Toilet Transfer (QC): 6 Walk 10 feet (QC): 6 Walk 50ft with 2 Turns (QC): 6 Walk 150 ft (QC): 6 PT Plan Problem List Problem List: Activity Tolerance, Functional Strength, Safety, Balance, Gait, Transfer, Bed Mobility, ROM Treatment/Plan Treatment Plan: Continue Plan of Care Treatment Plan: Bed Mobility, Education, Functional Activity [place], Functional Strength, Gait, Safety, Therapeutic Exercise, Transfers Treatment Duration: Aug 06, 2022 Frequency: 6 times per week Estimated Hrs Per Day: .25 hour per day Patient and/or Family Agrees t: Yes Safety Risks/Education Patient Education: Transfer Techniques, Correct Positioning, Safety Issues Teaching Recipient: Patient Teaching Methods: Demonstration, Discussion Response to Teaching: Reinforcement Needed Time Time In: 1037 Time Out: 1050 DATE: Aug 09, 2022 Total Billed Treatment Time: 13 Total Billed Treatment 1 visit FA 13min CECELIA MILNER PT Aug 09, 2022 11:26
[2022-08-09 15:18] VITALS: BP 154/76
--- NOTE | 2022-08-09 16:30 | Consultation ---
History of Present Illness History of Present Illness Patient Consulted On(sergio/time) 08/09/22 16:27 Date Seen by Provider: Aug 09, 2022 Time Seen by Provider: 16:28 Reason for Visit: LYDIA History of Present Illness Mrs. Yeager is a very pleasant 57 y/o WF with h/o guillain barre, DM, HTN, and obesity admitted with osteo s/p amputation complicated by LYDIA. Pt was receiving vanc/zosyn but it has now been stopped given rise in creatinine noted on labs. Prior to admission, pt was taking 800-1000mg of ibuprofen at a time for headaches prn. Was doing this on average of a couple times per week. She has also developed diarrhea. Tolerating po well. Allergies and Home Medications Allergies Coded Allergies: No Known Drug Allergies (Unverified , 10/02/18) Patient Home Medication List Albuterol Sulfate (Ventolin Hfa) 1 Puff Puff, 2 PUFF INH Q4H PRN for SHORTNESS OF BREATH, (Reported) Entered as Reported by: KERWIN KELLY on 09/07/201423 Last Action: Reviewed Amitriptyline HCl (Amitriptyline HCl) 25 Mg Tablet, 25 MG PO HS, (Reported) Entered as Reported by: KERWIN KELLY on 09/07/20 1413 Last Action: Held Atorvastatin Calcium (Atorvastatin Calcium) 40 Mg Tablet, 40 MG PO HS, (Reported) Entered as Reported by: KERWIN KELLY on 09/07/201423 Last Action: Reviewed Bupropion HCl (Bupropion HCl Sr) 150 Mg Tablet.er, 100 MG PO DAILY, (Reported) Entered as Reported by: CHRISTINE EDWARD on 08/03/221146 Last Action: Held Cyclosporine (Restasis) 0.05 % Droperette, 1 DROP OU BID, (Reported) Entered as Reported by: CHRISTINE EDWARD on 08/03/221146 Last Action: Converted Dapagliflozin Propanediol (Farxiga) 10 Mg Tablet, 10 MG PO DAILY, (Reported) Entered as Reported by: CHRISTINE EDWARD on 08/03/221146 Last Action: Held Doxycycline Hyclate (Doxycycline Hyclate) 100 Mg Tablet, 100 MG PO BID, (Reported) Entered as Reported by: CHRISTINE EDWARD on 08/03/221146 Last Action: Held Duloxetine HCl (Duloxetine HCl) 60 Mg Capsule.dr, 60 MG PO HS, (Reported) Entered as Reported by: KERWIN KELLY on 09/07/20 141 Last Action: Held Duloxetine HCl (Duloxetine HCl) 30 Mg Capsule.dr, 30 MG PO HS, (Reported) Entered as Reported by: KERWIN KELLY on 09/07/20 141 Last Action: Held Levothyroxine Sodium (Levothyroxine Sodium) 50 Mcg Tablet, 50 MCG PO DAILY, (Reported) Entered as Reported by: RODOLFO JAMESON on 12/16/15 1326 Last Action: Reviewed Lidocaine (Lidocaine 5% Patch) 5 % Adh..patch, 1 PATCH TD DAILY PRN for PAIN- BREAKTHROUGH, (Reported) Entered as Reported by: CHRISTINE EDWARD on 08/03/221146 Last Action: Held Metformin HCl (Metformin HCl) 500 Mg Tablet, 500 MG PO DAILY, (Reported) Entered as Reported by: RODOLFO JAMESON on 12/16/15 132 Last Action: Held Metformin HCl (Metformin HCl) 500 Mg Tablet, 1,000 MG PO HS, (Reported) Entered as Reported by: CHRISTINE EDWARD on 08/03/221146 Last Action: Held Mv-Mn/Folic Acid/Calcium/Vit K (Women's 50 Plus Multivit Tab) 1 Each Tablet, 1 EACH PO DAILY, (Reported) Entered as Reported by: KERWIN KELLY on 09/07/20 142 Last Action: Converted Olmesartan Medoxomil (Olmesartan Medoxomil) 20 Mg Tablet, 20 MG PO HS, (Reported) Entered as Reported by: CHRISTINE EDWARD on 08/03/221146 Last Action: Held Polyethylene Glycol 3350 (Miralax) 17 Gram/Dose Powder, 17 GM PO DAILY PRN for CONSTIPATION-2ND LINE, (Reported) Entered as Reported by: KERWIN KELLY on 09/07/20 142 Last Action: Reviewed Potassium Chloride (Potassium Chloride) 10 Meq Capsule.er, 10 MEQ PO BID, (Reported) Entered as Reported by: YUNIOR ARREDONDO on 03/21/17 5179 Last Action: Held Promethazine HCl (Promethazine Tablet) 25 Mg Tablet, 25 MG PO Q6H PRN for NAUSEA/VOMITING-2ND LINE, (Reported) Entered as Reported by: RODOLFO JAMESON on 10/02/18 1159 Last Action: Held Triamcinolone Acet (Triamcinolone Acetonide 0.1% Cream) 0.1 % Cr, 1 APPLIC TOP TID PRN for RASH, (Reported) Entered as Reported by: CHRISTINE EDWARD on 08/03/22 1147 Last Action: Held Discontinued Medications Amoxicillin/Potassium Clav (Amox Tr-K Clv 875-125 mg Tab) 875 Mg-125 Mg Tablet, 1 EACH PO BID Discontinued Reason: No Longer Taking Prescribed by: WAYNE SUNSHINE on 04/22/22 1232 Last Action: Discontinued Bupropion HCl (Bupropion HCl Sr) 150 Mg Tablet.er, 150 MG PO DAILY, (Reported) Discontinued Reason: New Order Entered as Reported by: KERWIN KELLY on 09/07/20 1413 Last Action: Discontinued Hydrocodone Bit/Acetaminophen (HYDROcodone/APAP 5 MG/325 MG TAB) 1 Tab Tab, 1 TAB PO TID PRN for PAIN-MODERATE (5-7) Discontinued Reason: No Longer Taking Prescribed by: WAYNE SUNSHINE on 04/22/22 1233 Last Action: Discontinued Metformin HCl (Metformin HCl) 1,000 Mg Tablet, 1,000 MG PO HS, (Reported) Discontinued Reason: Prescription changed Entered as Reported by: SAVI RODRÍGUEZ on 04/20/222023 Olmesartan Medoxomil (Olmesartan Medoxomil) 5 Mg Tablet, 5 MG PO DAILY, (Reported) Discontinued Reason: No Longer Taking Entered as Reported by: KERWIN KELLY on 09/07/20 1413 Last Action: Discontinued Pantoprazole Sodium (Protonix) 40 Mg Tablet.dr, 40 MG PO DAILY Discontinued Reason: No Longer Taking Prescribed by: LUCILA HORTON on 09/13/20 0934 Last Action: Discontinued Ropinirole HCl (Ropinirole HCl) 0.25 Mg Tablet, 0.25 MG PO HS, (Reported) Discontinued Reason: No Longer Taking Entered as Reported by: KERWIN KELLY on 09/07/20 1424 Last Action: Discontinued Tizanidine HCl (Tizanidine HCl) 4 Mg Tablet, 4 MG PO TID PRN for MUSCLE SPASMS, (Reported) Discontinued Reason: No Longer Taking Entered as Reported by: KERWIN KELLY on 09/07/20 1413 Last Action: Discontinued Past Nlawynq-Menakz-Uvgysr Hx Patient Social History Tobacco Use?: Yes Tobacco type used: Cigarettes Smoking Status: Current Everyday Smoker (0.5 to 1 pack a day) Use of E-Cig and/or Vaping dev: No Substance use?: No Alcohol Use?: No Pt feels they are or have been: No Immunizations Up To Date Tetanus Booster (TDap): Unknown Influenza Vaccine Up-to-Date: No; Not Current First/Initial COVID19 Vaccinat: 2020 Second COVID19 Vaccination Sergio: 2020 Third COVID19 Vaccination Date: 2021 Seasonal Allergies Seasonal Allergies: No Past Medical History Surgery/Hospitalization HX: HERNIA REPAIR, R AND L CARPAL TUNNEL, R FOOT SURGERY, VENACAVA FILTER PLACED PMH: TYPE 2 DM Surgeries: Yes (Right foot surgery X2, Right great toe amputation 03/2022) Abdominal, Adenoidectomy, Amputation, Orthopedic, Tonsillectomy, Vascular Surgery Respiratory: Yes Pulmonary Embolism Currently Using CPAP: No Currently Using BIPAP: No Cardiac: Yes (VENA CAVA FILTER IN PLACE--DVT'S AND PE'S. 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 ECHO VASCULAR TECH History: Menopausal Sexually Transmitted Disease: No HIV/AIDS: No Genitourinary: No Gastrointestinal: Yes (dysphagia; HERNIA REPAIR X 5) Abdominal Hernia, Gastroesophageal Reflux Musculoskeletal: Yes (RIGHT GREAT TOE AMPUTATION, MULTIPLE ORTHO SURGERIES) Amputee, Degenerate Disk Disease, Arthritis, Scoliosis Endocrine: Yes Hypothyroidsim, Diabetes, Non-Insulin dep HEENT: Yes Loss of Vision: Bilateral Hearing Impairment: Denies Cancer: No Psychosocial: Yes Anxiety, Depression Integumentary: Yes (Chronic diabetic foot ulcers; OSTEOMYELITIS) Blood Disorders: No Adverse Reaction/Blood Tranf: No (N/A) Family Medical History Colon cancer requiring screening colonoscopy Heart Disease, Cancer (Mother had breast cancer), Diabetes, Psychiatric Problems SOCIAL HISTORY: -SMOKES 1/2-1 PPD -DENIES DRUG USE -DENIES ETOH USE PAST SURGICAL HISTORY: -TONSILLECTOMY AND ADENOIDECTOMY -BLADDER SLING -BILATERAL CARPAL TUNNEL -BILATERAL ELBOW SURGERY -RIGHT SHOULDER SCOPE X 2 -RIGHT ROTATOR CUFF REPAIR -HERNIA SURGERY X 5 -VENA CAVA FILTER PLACEMENT -RIGHT FOOT SURGERY X 2 -RIGHT GREAT TOE AMPUTATION 03/2022. Review of Systems-General Constitutional: see HPI Physical Exam-General Problems Physical Exam Vital Signs Vital Signs - First Documented 08/03/22 08/03/22 08/03/22 00:15 08:57 12:55 Pulse 91 Resp 21 B/P (MAP) 86/62 (70) Pulse Ox 96 O2 Delivery Room Air O2 Flow Rate 0.00 FiO2 21 Capillary Refill : Less Than 3 Seconds General Appearance: no apparent distress Respiratory: No respiratory distress Cardiovascular: no edema Skin: normal color Assessment/Plan Assessment/Plan Admission Diagnosis/Plan LYDIA baseline 0.9 due to nsaids in addition to infection and now volume depletion +/- vanc vs zosyn agree with avoiding use of vanc/zosyn encourage po intake will check urine eos and u/a as sterile pyuria can be a sign of acute interstitial nephritis from nsaids, zosyn, or augmentin educated to avoid all nsaids pt has h/o bladder sling; post void bladder scan was negative diarrhea likely secondary to abx encourage probiotics, osteo s/p amputation wound care HTN goal <140/90 lower sodium intake I performed this video medicine visit from my office in [place]. Pt gave verbal consent. Plan was discussed with the patient and her bedside nurse. Clinical Quality Measures DVT/VTE Risk/Contraindication: VTE Addressed: Yes VTE Present on Admission: No Contraindications-Mechi: Other *list below* Other: leg cellulitis SPEEDY GUERRERO MD Aug 09, 2022 16:30
[2022-08-09 19:02] VITALS: BP 151/79
[2022-08-09] MEDS: ENOXAPARIN INJECTION 30 MG/0.3 ML SYR SC SCH (21:59)
[2022-08-09] MEDS: MELATONIN 3 MG TABLET PO PRN (21:59)
[2022-08-09 23:03] VITALS: BP 148/72
[2022-08-10] VITALS (8 sets, daily range): BP systolic 149–188; BP diastolic 72–107
[2022-08-10] MEDS: NS IV 1000 ML 1,000 ML IV SCH ×2 (03:18→14:51)
[2022-08-10] MEDS: LEVOTHYROXINE 50 MCG (LEVOTHROID) TAB PO SCH (04:37)
[2022-08-10 05:36] LABS: BASOPHILS # (AUTO) 0.1 10^3/uL (0.0-0.1); BASOPHILS % (AUTO) 1 % (0-10); EOSINOPHILS # (AUTO) 0.5 10^3/uL (0.0-0.3); EOSINOPHILS % (AUTO) 4 % (0-10); HEMATOCRIT 30 % (35-52); HEMOGLOBIN 9.2 g/dL (11.5-16.0); LYMPHOCYTES # (AUTO) 2.5 10^3/uL (1.0-4.0); LYMPHOCYTES % (AUTO) 19 % (12-44); MEAN CORPUSCULAR HEMOGLOBIN 26 pg (25-34); MEAN CORPUSCULAR HGB CONC 30 g/dL (32-36); MEAN CORPUSCULAR VOLUME 86 fL (80-99); MEAN PLATELET VOLUME 9.1 fL (9.0-12.2); MONOCYTES # (AUTO) 1.1 10^3/uL (0.0-1.0); MONOCYTES % (AUTO) 8 % (0-12); NEUTROPHILS # (AUTO) 8.7 10^3/uL (1.8-7.8); NEUTROPHILS % (AUTO) 67 % (42-75); PLATELET COUNT 476 10^3/uL (130-400)
[2022-08-10] MEDS: inSUlin ASPART (NovoLOG) 1 UNIT/0.01 ML (CHARGE PER UNIT) SC SCH ×4 (06:00→20:45)
[2022-08-10 06:01] LABS: ALBUMIN 2.6 GM/DL (3.2-4.5); BILIRUBIN,TOTAL 0.2 MG/DL (0.1-1.0); CALCIUM 8.5 MG/DL (8.5-10.1); CREATININE SERUM 2.77 MG/DL (0.60-1.30); MAGNESIUM 1.7 MG/DL (1.6-2.4); POTASSIUM 4.6 MMOL/L (3.6-5.0); TOTAL PROTEIN 6.6 GM/DL (6.4-8.2)
[2022-08-10] MEDS: ARTIFICAL TEARS 0.4 ML UNIT DOSE (REFRESH PLUS) OU SCH ×2 (08:18→20:44)
[2022-08-10] MEDS: LACTOBACILLUS ACIDOPHILUS (PROBIOTIC) CAPSULE PO SCH ×3 (08:19→17:08)
[2022-08-10] MEDS: amLODIPine 5 MG (NORVASC) TAB PO SCH (08:19)
[2022-08-10] MEDS: AUGMENTIN 500 MG TAB (AMOXICILLIN/CLAVULANATE) PO SCH ×2 (08:19→17:08)
[2022-08-10] MEDS: PANTOPRAZOLE 40 MG (PROTONIX) TAB PO SCH (08:19)
[2022-08-10] MEDS: MULTIVIT W/MINERALS TAB (THERAGRAN M) PO SCH (08:19)
[2022-08-10] MEDS: SENNOSIDES 8.6 MG (SENOKOT) TAB PO SCH ×2 (08:20→20:52)
[2022-08-10] MEDS: DOCUSATE SODIUM 100 MG (COLACE) CAP PO SCH ×2 (08:20→20:52)
--- NOTE | 2022-08-10 08:39 | Progress Note - Surgery ---
GILBERTO FONSECA 08/10/22 0839: Subjective Date Seen by a Provider: Aug 10, 2022 Time Seen by a Provider: 08:33 Subjective/Events-last exam Patient is sitting up in bed comfortable, eating breakfast. In good spirits Slept well last night Her post operative pain is well controlled at this time No other complaints currently Denies any fever, chills, or abdominal pain Patient was able to do PT yesterday- walking well, balance improving Patient has a tele-health consult with nephrology yesterday Labs reviewed Objective Exam Vital Signs Date Time Temp Pulse Resp B/P (MAP) Pulse Ox O2 Delivery O2 Flow Rate FiO2 08/10/22 08:12 170/86 (114) Room Air 08/10/22 07:24 36.1 73 18 149/102 (118) 98 Room Air 08/10/22 03:11 36.7 81 16 173/79 (110) 98 Room Air 08/09/22 23:03 36.6 75 16 148/72 (97) 98 Room Air 08/09/22 19:40 Room Air 08/09/22 19:02 37.0 78 16 151/79 (103) Room Air 08/09/22 15:18 36.9 82 16 154/76 (102) 98 Room Air 08/09/22 11:00 36.8 76 18 153/74 (100) 93 Room Air I & O 08/10/22 06:59 Intake Total 4740 ml Output Total 4900 ml Balance -160 ml Capillary Refill : Less Than 3 Seconds General Appearance: No Apparent Distress, Obese HEENT: PERRL/EOMI, Normal ENT Inspection Neck: Normal Inspection, Supple Respiratory: Chest Non Tender, No Accessory Muscle Use, No Respiratory Distress Cardiovascular: Regular Rate, Rhythm, No JVD Peripheral Pulses: 2+ Radial Pulses (R), 2+ Radial Pulses (L) Gastrointestinal: non tender, soft Extremity: Other (The open wounds on both feet continue to slowly improve. No significant purulent drainage.) Neurologic/Psychiatric: Alert, Oriented x3, Sensory Deficit (Feet bilaterally ) Skin: Normal Color, Warm/Dry Lymphatic: No Adenopathy Results Lab Laboratory Tests 08/09/22 10:59: Glucometer 193H 08/09/22 15:21: Glucometer 198H 08/09/22 20:36: Glucometer 267H 08/10/22 05:15: White Blood Count 13.0H, Red Blood Count 3.52L, Hemoglobin 9.2L, Hematocrit 30L, Mean Corpuscular Volume 86, Mean Corpuscular Hemoglobin 26, Mean Corpuscular Hemoglobin Concent 30L, Red Cell Distribution Width 16.2H, Platelet Count 476H, Mean Platelet Volume 9.1, Immature Granulocyte % (Auto) 1, Neutrophils (%) (Auto) 67, Lymphocytes (%) (Auto) 19, Monocytes (%) (Auto) 8, Eosinophils (%) (Auto) 4, Basophils (%) (Auto) 1, Neutrophils # (Auto) 8.7H, Lymphocytes # (Auto) 2.5, Monocytes # (Auto) 1.1H, Eosinophils # (Auto) 0.5H, Basophils # (Auto) 0.1, Immature Granulocyte # (Auto) 0.1, Sodium Level 143, Potassium Level 4.6, Chloride Level 111H, Carbon Dioxide Level 19L, Anion Gap 13, Blood Urea Nitrogen 11, Creatinine 2.77H, Estimat Glomerular Filtration Rate 19, BUN/Creatinine Ratio 4, Glucose Level 148H, Calcium Level 8.5, Corrected Calcium 9.6, Magnesium Level 1.7, Total Bilirubin 0.2, Aspartate Amino Transf (AST/SGOT) 26, Alanine Aminotransferase (ALT/SGPT) 17, Alkaline Phosphatase 90, Total Protein 6.6, Albumin 2.6L Microbiology 08/07/22 Urine Culture - Final, Complete YEAST 08/05/22 Gram Stain - Final, Resulted 08/05/22 Anaerobic Culture - Final, Resulted No anaerobes isolated 08/05/22 Surgical Culture - Final, Resulted Staphylococcus aureus 08/05/22 Fungal Culture 1 - Preliminary, Resulted Culture In Progress 08/04/22 MRSA Screen - Final, Complete MRSA not isolated 08/02/22 Blood Culture - Final, Complete No growth Assessment/Plan Assessment/Plan Assessment/Plan S/P -Left great toe amputation, right first partial ray amputation and second toe amputation, debridement of right foot ulcer 2 x 2 cm of skin, subcutaneous tissue and tendon. POD #5- Healing well Osteomyelitis of right foot (1st metatarsal and 2nd distal phalanx) and left foot (left great toe) Ulceration of right foot plantar surface and left plantar surface of great toe Sepsis secondary to UTI or foot infections. UTI Uncontrolled Type II diabetes-non compliant Bilateral non-traumatic foot fractures-one acute/ one non healed fracture LYDIA-improving- creatinine at 2.77 from 2.86 yesterday Continue antibiotics. Surgical wound culture acquired-grew staphylococcus aureus. Awaiting fungal culture Insulin as needed, maintain tight glycemic control. Monitor labs Pain control Continue PT Continue post op wound care Nephrology consulted Clinical Quality Measures DVT/VTE Risk/Contraindication: VTE Addressed: Yes VTE Present on Admission: No Contraindications-Mechi: Other *list below* Other: leg cellulitis LUCILA HILL DO 08/10/22 1634: Subjective Subjective/Events-last exam Feeling better today. Happy Cr slightly down. Pain controlled. Denies n/v fever sweats chills shortness of breath or chest pain. Objective Exam General Appearance: No Apparent Distress, Obese HEENT: PERRL/EOMI Neck: Normal Inspection, Supple Respiratory: Chest Non Tender, No Accessory Muscle Use, No Respiratory Distress Cardiovascular: Regular Rate, Rhythm Gastrointestinal: non tender, soft Extremity: Other (The open wounds on both feet continue to slowly improve. Slight slough. No significant purulent drainage.) Neurologic/Psychiatric: Alert, Oriented x3, Sensory Deficit (Feet bilaterally ) Skin: Normal Color, Warm/Dry Lymphatic: No Adenopathy Assessment/Plan Assessment/Plan Assessment/Plan S/P -Left great toe amputation, right first partial ray amputation and second toe amputation, debridement of right foot ulcer 2 x 2 cm of skin, subcutaneous tissue and tendon. POD #5- Healing well Osteomyelitis of right foot (1st metatarsal and 2nd distal phalanx) and left foot (left great toe) Ulceration of right foot plantar surface and left plantar surface of great toe Sepsis secondary to UTI or foot infections. UTI Uncontrolled Type II diabetes-non compliant Bilateral non-traumatic foot fractures-one acute/ one non healed fracture LYDIA-improving- creatinine at 2.77 from 2.86 yesterday Continue antibiotics. Surgical wound culture acquired-grew staphylococcus aureus. Awaiting fungal culture Insulin as needed, maintain tight glycemic control. Monitor labs Pain control Continue PT Continue post op wound care, start santyl/vasche wet to dry daily. Nephrology consulted Supervisory-Addendum Brief Verification & Attestation Participated in pt care: history, MDM, physical Personally performed: exam, history, MDM, supervision of care Care discussed with: Medical Student Procedures: n/a Results interpretation: Verified all documentation Verification and Attestation of Medical Student E/M Service A medical student performed and documented this service in my presence. I reviewed and verified all information documented by the medical student and made modifications to such information, when appropriate. I personally performed the physical exam and medical decision making. Lucila Hill, Aug 10, 2022,16:33 GILBERTO FONSECA Aug 10, 2022 08:39 LUCILA HILL DO Aug 10, 2022 16:34
--- NOTE | 2022-08-10 10:45 | Physical Therapy Progress Note ---
Therapy Progress Note Patient up with family and nursing and is up independently heel walking. PT to dismiss patient from services at this time. CECELIA MILNER PT Aug 10, 2022 10:45
[2022-08-10] MEDS: CALCIUM CARBONATE 500 MG (TUMS) TAB.CHEW PO PRN ×2 (11:20→14:55)
--- NOTE | 2022-08-10 16:24 | Progress Note ---
Subjective Subjective/Events-last exam Continues to have abdominal pain, bloating. She tried tums, helped minimally. No more diarrhea. Not passing gas well. Objective Exam Last Set of Vital Signs Vital Signs Date Time Temp Pulse Resp B/P (MAP) Pulse Ox O2 Delivery O2 Flow Rate FiO2 08/10/22 15:37 162/72 (102) 08/10/22 15:06 37.0 75 18 98 Room Air 08/06/22 20:10 21 08/06/22 11:20 2.00 Capillary Refill : Less Than 3 Seconds I&O Intake and Output 08/10/22 00:00 Intake Total 3490 ml Output Total 2700 ml Balance 790 ml Intake Oral 3490 ml Output Urine Total 2700 ml # Voids 3 # Bowel Movements 1 General: Alert, No Acute Distress Lungs: Clear to Auscultation, Normal Air Movement Heart: Regular Rate, No Murmurs Abdomen: Normal Bowel Sounds, Other (slightly distended, mild diffuse ttp) Extremities: No Edema, Other (both feet with socks on over surgical bandages) Neuro: Normal Speech Psych/Mental Status: Mood NL Results/Procedures Lab Laboratory Tests 08/09/22 20:36: Glucometer 267H 08/10/22 05:15: White Blood Count 13.0H, Red Blood Count 3.52L, Hemoglobin 9.2L, Hematocrit 30L, Mean Corpuscular Volume 86, Mean Corpuscular Hemoglobin 26, Mean Corpuscular Hemoglobin Concent 30L, Red Cell Distribution Width 16.2H, Platelet Count 476H, Mean Platelet Volume 9.1, Immature Granulocyte % (Auto) 1, Neutrophils (%) (Auto) 67, Lymphocytes (%) (Auto) 19, Monocytes (%) (Auto) 8, Eosinophils (%) (Auto) 4, Basophils (%) (Auto) 1, Neutrophils # (Auto) 8.7H, Lymphocytes # (Auto) 2.5, Monocytes # (Auto) 1.1H, Eosinophils # (Auto) 0.5H, Basophils # (Auto) 0.1, Immature Granulocyte # (Auto) 0.1, Sodium Level 143, Potassium Level 4.6, Chloride Level 111H, Carbon Dioxide Level 19L, Anion Gap 13, Blood Urea Nitrogen 11, Creatinine 2.77H, Estimat Glomerular Filtration Rate 19, BUN/Creatinine Ratio 4, Glucose Level 148H, Calcium Level 8.5, Corrected Calcium 9.6, Magnesium Level 1.7, Total Bilirubin 0.2, Aspartate Amino Transf (AST/SGOT) 26, Alanine Aminotransferase (ALT/SGPT) 17, Alkaline Phosphatase 90, Total Protein 6.6, Albumin 2.6L 08/10/22 11:05: Glucometer 163H 08/10/22 15:12: Glucometer 169H Microbiology 08/07/22 Urine Culture - Final, Complete YEAST 08/05/22 Gram Stain - Final, Resulted 08/05/22 Anaerobic Culture - Final, Resulted No anaerobes isolated 08/05/22 Surgical Culture - Final, Resulted Staphylococcus aureus 08/05/22 Fungal Culture 1 - Preliminary, Resulted Culture In Progress 08/04/22 MRSA Screen - Final, Complete MRSA not isolated 08/02/22 Blood Culture - Final, Complete No growth Radiology FOOT, BILATERAL, 3 VIEW INDICATION: Sepsis. Bilateral foot ulcers. COMPARISON: 06/27/2022. FINDINGS: RIGHT FOOT: Multiple radiographic views of the right foot were obtained. Patient is status post interval amputation of the great toe. There is prominent osteolytic process to the distal margins of the 1st metatarsal consistent with probable osteomyelitis. There is also soft tissue defect involving the distal tip of the 2nd toe with underlying osteolytic appearance to the tuft of the distal phalanx. Generalized soft tissue swelling is also noted. No unexpected radiopaque foreign bodies are seen. LEFT FOOT: Multiple radiographic views of the left foot were also obtained. There appears to be soft tissue defect of the medial margins of the great toe with generalized soft tissue swelling. There is a longitudinally oriented fracture extending through the distal and medial portions of the proximal phalanx with intra-articular extension. Findings are suggestive of acute fracture. Otherwise, no definite osteolytic process is seen. Evaluation of the remainder of the left foot again demonstrates nonhealed fracture of the 5th metatarsal. This is stable compared to 06/27/2022. No unexpected radiopaque foreign bodies are seen. IMPRESSION: 1. Osteolytic process to the distal portion of the right 1st metatarsal and right 2nd distal phalanx. Findings are strongly suggestive of underlying osteomyelitis. 2. New acute appearing fracture of the 1st proximal phalanx of the left foot. 3. Redemonstration of nonhealed fracture of the left 5th metatarsal. Assessment/Plan Assessment/Plan (1) Sepsis Status: Acute Assessment & Plan: Secondary to osteomyelitis and possibly UTI. Originally on Zosyn and Vancomycin on admit 08/02, s/p excision of osteo and debridement of wound, changed to Augmentin on 08/06. (2) Osteomyelitis Status: Acute Assessment & Plan: Bilateral feet, s/p left great toe amputation and right partial ray amputation and second toe amputation. Qualifiers: Qualified Codes: M86.179 - Other acute osteomyelitis, unspecified ankle and foot (3) Diabetes mellitus, type 2 Status: Chronic Assessment & Plan: 08/02/22 outpatient A1c 6.6. On sliding scale insulin inpatient. Qualifiers: Qualified Codes: E11.621 - Type 2 diabetes mellitus with foot ulcer; L97.509 - Non-pressure chronic ulcer of other part of unspecified foot with unspecified severity (4) UTI (urinary tract infection) Status: Resolved Assessment & Plan: UA suspicious on admit, mixed growth and yeast. (5) Hypertension Status: Chronic Qualifiers: Qualified Codes: I10 - Essential (primary) hypertension (6) Acute kidney failure Status: Acute Assessment & Plan: Suspect secondary to vanc/zosyn. Those were stopped 08/06. Will give a liter of NS today and repeat BMP later. Urine studies pending for further evaluation. 08/08- repeat BMP after fluid with no significant improvement, this morning her creatinine is minimally decreased. FeNa 3.09% consistent with ATN. Suspect secondary to zosyn/vanc, possibly has hit max creatinine, will continue to monitor. 08/09- Creatinine slightly increased again today, consulted Nephrology who agree with above, also recommended checking post-void residual, which was essentially zero. Will give a liter of fluid again today given diarrhea yesterday. 08/10- creatinine decreased, appreciate Nephrology recommendations, continue current monitoring. (7) Abdominal pain Status: Acute Assessment & Plan: KUB on 08/07 unremarkable, suspect antibiotic induced, will try to d/c antibiotics as soon as okay with Surgery after their eval of wound post-op. (8) Diarrhea Status: Resolved Assessment & Plan: Suspect antibiotic induced. Add probiotic. (9) DVT prophylaxis Status: Acute Assessment & Plan: Enoxaparin Clinical Quality Measures DVT/VTE Risk/Contraindication: VTE Addressed: Yes VTE Present on Admission: No Contraindications-Mechi: Other *list below* Other: leg cellulitis GEO LOUISE MD Aug 10, 2022 16:24
[2022-08-10] MEDS: COLLAGENASE 30 GM (SANTYL) TUBE TP SCH ×2 (17:10→20:52)
[2022-08-10] MEDS: MELATONIN 3 MG TABLET PO PRN (20:44)
[2022-08-10] MEDS: ENOXAPARIN INJECTION 30 MG/0.3 ML SYR SC SCH (20:45)
[2022-08-11] VITALS (8 sets, daily range): BP systolic 138–179; BP diastolic 65–89
[2022-08-11] MEDS: NS IV 1000 ML 1,000 ML IV SCH ×4 (00:31→21:19)
[2022-08-11] MEDS: ACETAMINOPHEN 325 MG TABLET PO PRN ×3 (03:11→20:24)
[2022-08-11] MEDS: inSUlin ASPART (NovoLOG) 1 UNIT/0.01 ML (CHARGE PER UNIT) SC SCH ×4 (05:09→20:25)
[2022-08-11] MEDS: LEVOTHYROXINE 50 MCG (LEVOTHROID) TAB PO SCH (05:16)
[2022-08-11 06:13] LABS: BASOPHILS # (AUTO) 0.1 10^3/uL (0.0-0.1); BASOPHILS % (AUTO) 1 % (0-10); EOSINOPHILS # (AUTO) 0.5 10^3/uL (0.0-0.3); EOSINOPHILS % (AUTO) 4 % (0-10); HEMATOCRIT 30 % (35-52); HEMOGLOBIN 8.9 g/dL (11.5-16.0); LYMPHOCYTES # (AUTO) 2.3 10^3/uL (1.0-4.0); LYMPHOCYTES % (AUTO) 18 % (12-44); MEAN CORPUSCULAR HEMOGLOBIN 26 pg (25-34); MEAN CORPUSCULAR HGB CONC 30 g/dL (32-36); MEAN CORPUSCULAR VOLUME 86 fL (80-99); MEAN PLATELET VOLUME 9.2 fL (9.0-12.2); MONOCYTES # (AUTO) 1.1 10^3/uL (0.0-1.0); MONOCYTES % (AUTO) 8 % (0-12); NEUTROPHILS # (AUTO) 9.2 10^3/uL (1.8-7.8); NEUTROPHILS % (AUTO) 69 % (42-75); PLATELET COUNT 455 10^3/uL (130-400); WHITE BLOOD COUNT 13.3 10^3/uL (4.3-11.0)
--- NOTE | 2022-08-11 06:13 | Progress Note - Hospitalist ---
Subjective HPI/CC On Admission Date Seen by Provider: Aug 11, 2022 Time Seen by Provider: 11:00 CC: Bilateral foot pain with redness HPI: This is a 57 yr old female with very complicated issues. Including diabetes out of control and previous amputations of the toe. She presented to the ER with fever. She was found to have bilateral osteomyelitis of the feet. She was placed on Zosyn and Vancomycin. IV fluids were given for hypotension that was not due to severe sepsis. She was given IV fluids but Midodrine was started due to chronic orthostasis. Subjective/Events-last exam Patient doing better Relative at bedside concerned about her poor appetite Conferred with Dr. Vidal regarding renal function Objective Exam Vital Signs Vital Signs Date Time Temp Pulse Resp B/P (MAP) Pulse Ox O2 Delivery O2 Flow Rate FiO2 08/12/22 03:51 36.4 78 16 133/61 (85) 97 Room Air 08/11/22 08:00 0.00 08/06/22 20:10 21 Capillary Refill : Less Than 3 Seconds General Appearance: No Apparent Distress, WD/WN, Chronically ill Respiratory: Lungs Clear, Normal Breath Sounds Cardiovascular: Regular Rate, Rhythm Neurologic/Psychiatric: Alert, Oriented x3, No Motor/Sensory Deficits, Normal Mood/Affect Results/Procedures Lab Laboratory Tests 08/11/22 05:52 Patient resulted labs reviewed. Procedures Wound cultures acquired. Vashe applied to wound site as well as aquasil dres sing. Assessment/Plan Assessment and Plan Assess & Plan/Chief Complaint Assessment: Osteomyelitis of foot - Continue IV antibiotics and monitor for signs of improvement. Wound culture acquired. Wound care and surgical consult needed to reach best overall treatment plan S/P -Left great toe amputation, right first partial ray amputation and second toe amputation, debridement of right foot ulcer 2 x 2 cm of skin, subcutaneous tissue and tendon. POD #5- Healing well Sepsis - secondary to UTI or foot infections. Continue antibiotic therapy and monitor labs for improvement or worsening of condition acute Acute kidney injury UTI - continue IV antibiotics Uncontrolled Type II diabetes - Insulin as needed, patient non-compliance with diabetic management complicates treatment Bilateral non-traumatic foot fractures Plan: Monitor creatinine Supportive care Clinical Quality Measures DVT/VTE Risk/Contraindication: VTE Addressed: Yes VTE Present on Admission: No Contraindications-Mechi: Other *list below* Other: leg cellulitis WAYNE SUNSHINE DO Aug 11, 2022 06:13
[2022-08-11 06:42] LABS: ALBUMIN 2.6 GM/DL (3.2-4.5); BILIRUBIN,TOTAL 0.2 MG/DL (0.1-1.0); CALCIUM 8.3 MG/DL (8.5-10.1); CREATININE SERUM 2.65 MG/DL (0.60-1.30); MAGNESIUM 1.5 MG/DL (1.6-2.4); POTASSIUM 4.5 MMOL/L (3.6-5.0); TOTAL PROTEIN 6.8 GM/DL (6.4-8.2)
[2022-08-11] MEDS: AUGMENTIN 500 MG TAB (AMOXICILLIN/CLAVULANATE) PO SCH ×2 (09:00→16:34)
[2022-08-11] MEDS: ARTIFICAL TEARS 0.4 ML UNIT DOSE (REFRESH PLUS) OU SCH ×2 (09:00→20:24)
[2022-08-11] MEDS: amLODIPine 5 MG (NORVASC) TAB PO SCH (09:01)
[2022-08-11] MEDS: SENNOSIDES 8.6 MG (SENOKOT) TAB PO SCH ×2 (09:01→20:30)
[2022-08-11] MEDS: CALCIUM CARBONATE 500 MG (TUMS) TAB.CHEW PO PRN (09:01)
[2022-08-11] MEDS: DOCUSATE SODIUM 100 MG (COLACE) CAP PO SCH ×2 (09:01→20:24)
[2022-08-11] MEDS: LACTOBACILLUS ACIDOPHILUS (PROBIOTIC) CAPSULE PO SCH ×3 (09:01→16:34)
[2022-08-11] MEDS: MULTIVIT W/MINERALS TAB (THERAGRAN M) PO SCH (09:01)
[2022-08-11] MEDS: PANTOPRAZOLE 40 MG (PROTONIX) TAB PO SCH (09:01)
--- NOTE | 2022-08-11 09:16 | Progress Note ---
Progress Note Assessment/Plan Date Seen by Provider: Aug 10, 2022 Time Seen by Provider: 09:13 Events since last exam Patient continues to feel better. Diarrhea improved.Understands plan to follow up after discharge in our [place] office in 2 to 3 weeks with repeat labs likely discharge Saturday or Saturday depending on renal function Vitals Last set of Vitals Signs Vital Signs Date Time Temp Pulse Resp B/P (MAP) Pulse Ox O2 Delivery O2 Flow Rate FiO2 08/11/22 08:57 160/74 (102) 08/11/22 08:02 36.4 76 20 Room Air 08/11/22 08:00 0.00 08/11/22 03:47 98 08/06/22 20:10 21 I&O I&O Intake and Output 08/11/22 00:00 Intake Total 4240 ml Output Total 7950 ml Balance -3710 ml Intake Oral 3240 ml IV Total 1000 ml Output Urine Total 7950 ml Labs Laboratory Tests 08/10/22 11:05: Glucometer 163H 08/10/22 15:12: Glucometer 169H 08/10/22 20:33: Glucometer 237H 08/11/22 05:04: Glucometer 131H 08/11/22 05:52: White Blood Count 13.3H, Red Blood Count 3.46L, Hemoglobin 8.9L, Hematocrit 30L, Mean Corpuscular Volume 86, Mean Corpuscular Hemoglobin 26, Mean Corpuscular Hemoglobin Concent 30L, Red Cell Distribution Width 16.0H, Platelet Count 455H, Mean Platelet Volume 9.2, Immature Granulocyte % (Auto) 1, Neutrophils (%) (Auto) 69, Lymphocytes (%) (Auto) 18, Monocytes (%) (Auto) 8, Eosinophils (%) (Auto) 4, Basophils (%) (Auto) 1, Neutrophils # (Auto) 9.2H, Lymphocytes # (Auto) 2.3, Monocytes # (Auto) 1.1H, Eosinophils # (Auto) 0.5H, Basophils # (Auto) 0.1, Immature Granulocyte # (Auto) 0.1, Sodium Level 144, Potassium Level 4.5, Chloride Level 113H, Carbon Dioxide Level 18L, Anion Gap 13, Blood Urea Nitrogen 9, Creatinine 2.65H, Estimat Glomerular Filtration Rate 20, BUN/Creatinine Ratio 3, Glucose Level 171H, Calcium Level 8.3L, Corrected Calcium 9.4, Magnesium Level 1.5L, Total Bilirubin 0.2, Aspartate Amino Transf (AST/SGOT) 24, Alanine Aminotransferase (ALT/SGPT) 15, Alkaline Phosphatase 88, Total Protein 6.8, Albumin 2.6L Microbiology 08/07/22 Urine Culture - Final, Complete YEAST 08/05/22 Gram Stain - Final, Resulted 08/05/22 Anaerobic Culture - Final, Resulted No anaerobes isolated 08/05/22 Surgical Culture - Final, Resulted Staphylococcus aureus 08/05/22 Fungal Culture 1 - Preliminary, Resulted Culture In Progress 08/04/22 MRSA Screen - Final, Complete MRSA not isolated 08/02/22 Blood Culture - Final, Complete No growth Clinical Quality Measures DVT/VTE Risk/Contraindication: VTE Addressed: Yes VTE Present on Admission: No Contraindications-Mechi: Other *list below* Other: leg cellulitis SPEEDY GUERRERO MD Aug 11, 2022 09:16
[2022-08-11] MEDS: COLLAGENASE 30 GM (SANTYL) TUBE TP SCH ×2 (10:42→21:47)
--- NOTE | 2022-08-11 10:47 | Progress Note - Surgery ---
ANGELO BANKS 08/11/22 1047: Subjective Date Seen by a Provider: Aug 11, 2022 Subjective/Events-last exam Patient would like to shower, has not had a shower since being hospitalized. Otherwise patient feels fine today. Patient has concerns over new wound care regimen given cost. Patient is now using Vasche wash. Patient is currently working with social economist to attempt to get home health set up. Patient is reporting some epigastric pain. Patient has not other complaints at this time. Review of Systems General: No Chills, No Night Sweats HEENT: No Head Aches, No Eye Pain Pulmonary: No Dyspnea, No Cough Cardiovascular: No: Chest Pain, Palpitations Gastrointestinal: Other (epigastric tenderness); No: Nausea, Vomiting Genitourinary: No Dysuria, No Frequency Objective Exam Vital Signs Date Time Temp Pulse Resp B/P (MAP) Pulse Ox O2 Delivery O2 Flow Rate FiO2 08/11/22 08:57 160/74 (102) 08/11/22 08:02 36.4 76 20 179/89 (119) Room Air 08/11/22 08:00 Room Air 0.00 08/11/22 08:00 Room Air 08/11/22 03:47 36.9 72 18 169/81 (110) 98 Room Air 08/11/22 00:56 36.6 74 18 161/82 (108) 97 Room Air 08/10/22 20:53 Room Air 08/10/22 19:30 36.9 79 20 170/88 (115) 99 Room Air 08/10/22 15:37 162/72 (102) 08/10/22 15:06 37.0 75 18 188/107 (134) 98 Room Air 08/10/22 11:06 36.6 70 18 175/79 (111) 97 Room Air I & O 08/11/22 07:00 Intake Total 3840 ml Output Total 6600 ml Balance -2760 ml Capillary Refill : Less Than 3 Seconds General Appearance: No Apparent Distress, Obese HEENT: PERRL/EOMI Neck: Normal Inspection, Supple Respiratory: Chest Non Tender, No Accessory Muscle Use, No Respiratory Distress Cardiovascular: Regular Rate, Rhythm, No Murmur Peripheral Pulses: 2+ Radial Pulses (R), 2+ Radial Pulses (L) Gastrointestinal: non tender, soft Extremity: No Calf Tenderness Neurologic/Psychiatric: Alert, Oriented x3, Normal Mood/Affect, Sensory Deficit (Feet bilaterally ) Skin: Normal Color, Warm/Dry Results Lab Laboratory Tests 08/10/22 11:05: Glucometer 163H 08/10/22 15:12: Glucometer 169H 08/10/22 20:33: Glucometer 237H 08/11/22 05:04: Glucometer 131H 08/11/22 05:52: White Blood Count 13.3H, Red Blood Count 3.46L, Hemoglobin 8.9L, Hematocrit 30L, Mean Corpuscular Volume 86, Mean Corpuscular Hemoglobin 26, Mean Corpuscular Hemoglobin Concent 30L, Red Cell Distribution Width 16.0H, Platelet Count 455H, Mean Platelet Volume 9.2, Immature Granulocyte % (Auto) 1, Neutrophils (%) (Auto) 69, Lymphocytes (%) (Auto) 18, Monocytes (%) (Auto) 8, Eosinophils (%) (Auto) 4, Basophils (%) (Auto) 1, Neutrophils # (Auto) 9.2H, Lymphocytes # (Auto) 2.3, Monocytes # (Auto) 1.1H, Eosinophils # (Auto) 0.5H, Basophils # (Auto) 0.1, Immature Granulocyte # (Auto) 0.1, Sodium Level 144, Potassium Level 4.5, Chloride Level 113H, Carbon Dioxide Level 18L, Anion Gap 13, Blood Urea Nitrogen 9, Creatinine 2.65H, Estimat Glomerular Filtration Rate 20, BUN/Creatinine Ratio 3, Glucose Level 171H, Calcium Level 8.3L, Corrected Calcium 9.4, Magnesium Level 1.5L, Total Bilirubin 0.2, Aspartate Amino Transf (AST/SGOT) 24, Alanine Aminotransferase (ALT/SGPT) 15, Alkaline Phosphatase 88, Total Protein 6.8, Albumin 2.6L Microbiology 08/07/22 Urine Culture - Final, Complete YEAST 08/05/22 Gram Stain - Final, Resulted 08/05/22 Anaerobic Culture - Final, Resulted No anaerobes isolated 08/05/22 Surgical Culture - Final, Resulted Staphylococcus aureus 08/05/22 Fungal Culture 1 - Preliminary, Resulted Culture In Progress 08/04/22 MRSA Screen - Final, Complete MRSA not isolated 08/02/22 Blood Culture - Final, Complete No growth Assessment/Plan Assessment/Plan Assessment/Plan S/P -Left great toe amputation, right first partial ray amputation and second toe amputation, debridement of right foot ulcer 2 x 2 cm of skin, subcutaneous tissue and tendon. POD #6 Osteomyelitis of right foot (1st metatarsal and 2nd distal phalanx) and left foot (left great toe) Ulceration of right foot plantar surface and left plantar surface of great toe Sepsis secondary to UTI or foot infections. UTI Uncontrolled Type II diabetes Bilateral non-traumatic foot fractures-one acute/ one non healed fracture LYDIA-improving Continue antibiotics. Surgical wound culture acquired-grew staphylococcus aureus. Currently on Augmentin. Sensitivities in micro report. Awaiting fungal culture Insulin as needed, maintain tight glycemic control. Monitor labs Pain control Continue PT Continue post op wound care Nephrology consulted Clinical Quality Measures DVT/VTE Risk/Contraindication: VTE Addressed: Yes VTE Present on Admission: No Contraindications-Mechi: Other *list below* Other: leg cellulitis YVONNE ELAM DO 08/11/22 1450: Subjective Time Seen by a Provider: 12:31 Subjective/Events-last exam Pt seen and examined, no new complaints and tolerating diet. Review of Systems General: No Chills, No Night Sweats Pulmonary: No Dyspnea, No Cough Cardiovascular: No: Chest Pain, Palpitations Gastrointestinal: No: Nausea, Vomiting Objective Exam General Appearance: No Apparent Distress, Obese Respiratory: Chest Non Tender, Lungs Clear, Normal Breath Sounds, No Accessory Muscle Use, No Respiratory Distress Cardiovascular: Regular Rate, Rhythm, No Murmur Extremity: No Calf Tenderness, Other (bandages taken down, good granulation no signs of necrosis) Assessment/Plan Assessment/Plan Assessment/Plan S/P -Left great toe amputation, right first partial ray amputation and second t oe amputation, debridement of right foot ulcer 2 x 2 cm of skin, subcutaneous tissue and tendon. POD #6 Osteomyelitis of right foot (1st metatarsal and 2nd distal phalanx) and left foot (left great toe) Ulceration of right foot plantar surface and left plantar surface of great toe Sepsis secondary to UTI or foot infections. UTI Uncontrolled Type II diabetes Bilateral non-traumatic foot fractures-one acute/ one non healed fracture LYDIA-improving Continue antibiotics. Surgical wound culture acquired-grew staphylococcus aureus. Currently on Augmentin. Sensitivities in micro report. Awaiting fungal culture Insulin as needed, maintain tight glycemic control. Monitor labs Pain control Continue PT Continue post op wound care with Thania Supervisory-Addendum Brief Verification & Attestation Participated in pt care: history, MDM, physical Personally performed: exam, history, MDM, supervision of care Care discussed with: Medical Student Procedures: n/a Verification and Attestation of Medical Student E/M Service A medical student performed and documented this service. I then reviewed and verified all information documented by the medical student and made modifications to such information, when appropriate. I personally performed a physical exam, medical decision making and then discussed any differences between the notes and made revisions as necessary to create one note. Yvonne Elam , 08/11/22 , 14:50 ANGELO BANKS Aug 11, 2022 10:47 YVONNE ELAM DO Aug 11, 2022 14:50
[2022-08-11] MEDS: ENOXAPARIN INJECTION 30 MG/0.3 ML SYR SC SCH (20:24)
[2022-08-11] MEDS: MELATONIN 3 MG TABLET PO PRN (20:43)
[2022-08-12] MEDS: ACETAMINOPHEN 325 MG TABLET PO PRN (02:10)
[2022-08-12 03:51] VITALS: BP 133/61
[2022-08-12] MEDS: LEVOTHYROXINE 50 MCG (LEVOTHROID) TAB PO SCH (05:34)
[2022-08-12 05:47] LABS: BASOPHILS # (AUTO) 0.1 10^3/uL (0.0-0.1); BASOPHILS % (AUTO) 1 % (0-10); EOSINOPHILS # (AUTO) 0.5 10^3/uL (0.0-0.3); EOSINOPHILS % (AUTO) 4 % (0-10); HEMATOCRIT 31 % (35-52); HEMOGLOBIN 9.1 g/dL (11.5-16.0); LYMPHOCYTES # (AUTO) 2.5 10^3/uL (1.0-4.0); LYMPHOCYTES % (AUTO) 22 % (12-44); MEAN CORPUSCULAR HEMOGLOBIN 26 pg (25-34); MEAN CORPUSCULAR HGB CONC 29 g/dL (32-36); MEAN CORPUSCULAR VOLUME 87 fL (80-99); MEAN PLATELET VOLUME 9.3 fL (9.0-12.2); MONOCYTES # (AUTO) 0.9 10^3/uL (0.0-1.0); MONOCYTES % (AUTO) 8 % (0-12); NEUTROPHILS # (AUTO) 7.5 10^3/uL (1.8-7.8); NEUTROPHILS % (AUTO) 65 % (42-75); PLATELET COUNT 483 10^3/uL (130-400); WHITE BLOOD COUNT 11.6 10^3/uL (4.3-11.0)
[2022-08-12 06:18] LABS: ALBUMIN 2.6 GM/DL (3.2-4.5); BILIRUBIN,TOTAL 0.2 MG/DL (0.1-1.0); CALCIUM 8.4 MG/DL (8.5-10.1); MAGNESIUM 1.7 MG/DL (1.6-2.4); POTASSIUM 4.5 MMOL/L (3.6-5.0); TOTAL PROTEIN 6.5 GM/DL (6.4-8.2)
[2022-08-12] MEDS: inSUlin ASPART (NovoLOG) 1 UNIT/0.01 ML (CHARGE PER UNIT) SC SCH ×4 (06:20→20:13)
--- NOTE | 2022-08-12 06:56 | Progress Note - Hospitalist ---
Subjective HPI/CC On Admission Date Seen by Provider: Aug 12, 2022 Time Seen by Provider: 11:00 CC: Bilateral foot pain with redness HPI: This is a 57 yr old female with very complicated issues. Including diabetes out of control and previous amputations of the toe. She presented to the ER with fever. She was found to have bilateral osteomyelitis of the feet. She was placed on Zosyn and Vancomycin. IV fluids were given for hypotension that was not due to severe sepsis. She was given IV fluids but Midodrine was started due to chronic orthostasis. Subjective/Events-last exam Doing well Dr Hill will evaluate her feet tomorrow Sugars are stable Creat still monitored closely Review of Systems General: Fatigue, Malaise Musculoskeletal: leg pain, foot pain Objective Exam Vital Signs Vital Signs Date Time Temp Pulse Resp B/P (MAP) Pulse Ox O2 Delivery O2 Flow Rate FiO2 08/12/22 16:38 36.7 74 20 171/76 (107) 99 Room Air 08/11/22 08:00 0.00 08/06/22 20:10 21 Capillary Refill : Less Than 3 Seconds General Appearance: No Apparent Distress, WD/WN, Chronically ill Respiratory: Lungs Clear, Normal Breath Sounds Cardiovascular: Regular Rate, Rhythm Neurologic/Psychiatric: Alert, Oriented x3, No Motor/Sensory Deficits, Normal Mood/Affect Results/Procedures Lab Laboratory Tests 08/12/22 05:31 Patient resulted labs reviewed. Procedures Wound cultures acquired. Vashe applied to wound site as well as aquasil dressing. Assessment/Plan Assessment and Plan Assess & Plan/Chief Complaint Assessment: Osteomyelitis of foot - Continue IV antibiotics and monitor for signs of improvement. Wound culture acquired. Wound care and surgical consult needed to reach best overall treatment plan S/P -Left great toe amputation, right first partial ray amputation and second toe amputation, debridement of right foot ulcer 2 x 2 cm of skin, subcutaneous tissue and tendon. POD #5- Healing well Sepsis - secondary to UTI or foot infections. Continue antibiotic therapy and monitor labs for improvement or worsening of condition acute Acute kidney injury UTI - continue IV antibiotics Uncontrolled Type II diabetes - Insulin as needed, patient non-compliance with diabetic management complicates treatment Bilateral non-traumatic foot fractures Plan: Monitor creatinine Supportive care Clinical Quality Measures DVT/VTE Risk/Contraindication: VTE Addressed: Yes VTE Present on Admission: No Contraindications-Mechi: Other *list below* Other: leg cellulitis WAYNE SUNSHINE DO Aug 12, 2022 06:56
[2022-08-12 07:00] LABS: CREATININE SERUM 2.62 MG/DL (0.60-1.30)
[2022-08-12 07:25] VITALS: BP 176/81
[2022-08-12] MEDS: PANTOPRAZOLE 40 MG (PROTONIX) TAB PO SCH (08:04)
[2022-08-12] MEDS: NS IV 1000 ML 1,000 ML IV SCH ×2 (08:04→18:35)
[2022-08-12] MEDS: MULTIVIT W/MINERALS TAB (THERAGRAN M) PO SCH (08:05)
[2022-08-12] MEDS: amLODIPine 5 MG (NORVASC) TAB PO SCH (08:05)
[2022-08-12] MEDS: LACTOBACILLUS ACIDOPHILUS (PROBIOTIC) CAPSULE PO SCH ×3 (08:06→17:00)
[2022-08-12] MEDS: DOCUSATE SODIUM 100 MG (COLACE) CAP PO SCH ×2 (08:06→19:37)
[2022-08-12] MEDS: ARTIFICAL TEARS 0.4 ML UNIT DOSE (REFRESH PLUS) OU SCH ×2 (08:08→19:37)
[2022-08-12] MEDS: COLLAGENASE 30 GM (SANTYL) TUBE TP SCH ×2 (08:08→19:40)
[2022-08-12] MEDS: SENNOSIDES 8.6 MG (SENOKOT) TAB PO SCH ×2 (08:08→19:40)
--- NOTE | 2022-08-12 10:27 | Progress Note - Surgery ---
ANGELO BANKS 08/12/22 1027: Subjective Date Seen by a Provider: Aug 12, 2022 Time Seen by a Provider: 10:23 Subjective/Events-last exam Patient states she feels okay today, but emotionally is just a little down. Patient has concerns having to deal w/ chronic feet issues for the rest of her life. Discussed how important foot hygiene and regularly checking her feet is going to be moving forward. Patient was happy to hear her creatinine had trended slightly down today. No other concerns at this time. Review of Systems General: No Chills, No Night Sweats HEENT: No Head Aches, No Visual Changes Pulmonary: No Dyspnea, No Cough Cardiovascular: No: Chest Pain, Palpitations Gastrointestinal: No: Nausea, Vomiting, Abdominal Pain Genitourinary: No Dysuria, No Frequency Neurological: No: Weakness, Numbness Objective Exam Vital Signs Date Time Temp Pulse Resp B/P (MAP) Pulse Ox O2 Delivery O2 Flow Rate FiO2 08/12/22 08:00 Room Air 08/12/22 07:25 35.9 79 16 176/81 (112) 97 08/12/22 03:51 36.4 78 16 133/61 (85) 97 Room Air 08/11/22 23:32 36.2 65 16 162/75 (104) 97 Room Air 08/11/22 20:00 Room Air 08/11/22 19:40 36.3 73 18 138/65 (89) 98 Room Air 08/11/22 19:12 96 Room Air 08/11/22 16:00 36.2 76 18 169/84 (112) 100 Room Air 08/11/22 11:40 36.4 78 20 175/85 (115) 97 Room Air I & O 08/12/22 07:00 Intake Total 3460 ml Output Total 6450 ml Balance -2990 ml Capillary Refill : Less Than 3 Seconds General Appearance: No Apparent Distress, WD/WN HEENT: PERRL/EOMI Neck: Normal Inspection, Supple Respiratory: Lungs Clear, Normal Breath Sounds, No Accessory Muscle Use, No Respiratory Distress Cardiovascular: Regular Rate, Rhythm, No Murmur Peripheral Pulses: 2+ Radial Pulses (R), 2+ Radial Pulses (L) Gastrointestinal: non tender, soft Extremity: No Calf Tenderness, Other (bandages C/D/I, on inspection yesterday wounds appeared to be healing well w/ no signs of necrosis/infx) Neurologic/Psychiatric: Alert, Oriented x3, Normal Mood/Affect Skin: Normal Color, Warm/Dry Results Lab Laboratory Tests 08/11/22 11:38: Glucometer 153H 08/11/22 16:11: Glucometer 154H 08/11/22 19:46: Glucometer 195H 08/12/22 05:31: White Blood Count 11.6H, Red Blood Count 3.57L, Hemoglobin 9.1L, Hematocrit 31L, Mean Corpuscular Volume 87, Mean Corpuscular Hemoglobin 26, Mean Corpuscular Hemoglobin Concent 29L, Red Cell Distribution Width 15.9H, Platelet Count 483H, Mean Platelet Volume 9.3, Immature Granulocyte % (Auto) 1, Neutrophils (%) (Auto) 65, Lymphocytes (%) (Auto) 22, Monocytes (%) (Auto) 8, Eosinophils (%) (Auto) 4, Basophils (%) (Auto) 1, Neutrophils # (Auto) 7.5, Lymphocytes # (Auto) 2.5, Monocytes # (Auto) 0.9, Eosinophils # (Auto) 0.5H, Basophils # (Auto) 0.1, Immature Granulocyte # (Auto) 0.1, Sodium Level 145, Potassium Level 4.5, Chloride Level 115H, Carbon Dioxide Level 19L, Anion Gap 11, Blood Urea Nitrogen 11, Creatinine 2.62H, Estimat Glomerular Filtration Rate 21, BUN/Creatinine Ratio 4, Glucose Level 135H, Calcium Level 8.4L, Corrected Calcium 9.5, Magnesium Level 1.7, Total Bilirubin 0.2, Aspartate Amino Transf (AST/SGOT) 27, Alanine Aminotransferase (ALT/SGPT) 17, Alkaline Phosphatase 87, Total Protein 6.5, Albumin 2.6L Microbiology 08/07/22 Urine Culture - Final, Complete YEAST 08/05/22 Gram Stain - Final, Resulted 08/05/22 Anaerobic Culture - Final, Resulted No anaerobes isolated 08/05/22 Surgical Culture - Final, Resulted Staphylococcus aureus 08/05/22 Fungal Culture 1 - Preliminary, Resulted Culture In Progress 08/04/22 MRSA Screen - Final, Complete MRSA not isolated 08/02/22 Blood Culture - Final, Complete No growth Assessment/Plan Assessment/Plan Assessment/Plan S/P -Left great toe amputation, right first partial ray amputation and second toe amputation, debridement of right foot ulcer 2 x 2 cm of skin, subcutaneous tissue and tendon. POD #7 Osteomyelitis of right foot (1st metatarsal and 2nd distal phalanx) and left foot (left great toe) Ulceration of right foot plantar surface and left plantar surface of great toe Sepsis secondary to UTI or foot infections. UTI Uncontrolled Type II diabetes Bilateral non-traumatic foot fractures-one acute/ one non healed fracture LYDIA-improving Continue antibiotics. Surgical wound culture acquired-grew staphylococcus aureus. Currently on Augmentin. Sensitivities in micro report. Awaiting fungal culture Insulin as needed, maintain tight glycemic control. Monitor labs Pain control Continue PT Continue post op wound care with Vashe Clinical Quality Measures DVT/VTE Risk/Contraindication: VTE Addressed: Yes VTE Present on Admission: No Contraindications-Mechi: Other *list below* Other: leg cellulitis NASIR ELAM DO 08/12/22 1433: Subjective Time Seen by a Provider: 12:44 Subjective/Events-last exam Pt seen and examined, no new complaints. Review of Systems General: No Chills, No Night Sweats Pulmonary: No Dyspnea, No Cough Cardiovascular: No: Chest Pain, Palpitations Gastrointestinal: No: Nausea, Vomiting, Abdominal Pain Objective Exam General Appearance: No Apparent Distress, WD/WN Respiratory: Lungs Clear, Normal Breath Sounds, No Accessory Muscle Use, No Respiratory Distress Cardiovascular: Regular Rate, Rhythm, No Murmur Extremity: No Calf Tenderness, Other (bandages C/D/I, on inspection yesterday wounds appeared to be healing well w/ no signs of necrosis/infx) Assessment/Plan Assessment/Plan Assessment/Plan S/P -Left great toe amputation, right first partial ray amputation and second toe amputation, debridement of right foot ulcer 2 x 2 cm of skin, subcutaneous tissue and tendon. POD #7 Osteomyelitis of right foot (1st metatarsal and 2nd distal phalanx) and left foot (left great toe) Ulceration of right foot plantar surface and left plantar surface of great toe Sepsis secondary to UTI or foot infections. UTI Uncontrolled Type II diabetes Bilateral non-traumatic foot fractures-one acute/ one non healed fracture LYDIA-improving Continue antibiotics. Surgical wound culture acquired-grew staphylococcus aureus. Currently on Augmentin. Sensitivities in micro report. Awaiting fungal culture Insulin as needed, maintain tight glycemic control. Monitor labs Pain control Continue PT Continue post op wound care with Vashe Supervisory-Addendum Brief Verification & Attestation Participated in pt care: history, MDM, physical Personally performed: exam, history, MDM, supervision of care Care discussed with: Medical Student Procedures: n/a Verification and Attestation of Medical Student E/M Service A medical student performed and documented this service. I then reviewed and verified all information documented by the medical student and made modifications to such information, when appropriate. I personally performed a physical exam, medical decision making and then discussed any differences between the notes and made revisions as necessary to create one note. Nasir Elam , 08/12/22 , 14:33 ANGELO BANKS Aug 12, 2022 10:27 NASIR ELAM DO Aug 12, 2022 14:33
[2022-08-12 11:33] VITALS: BP 163/76
[2022-08-12 16:38] VITALS: BP 171/76
[2022-08-12 19:31] VITALS: BP 166/76
[2022-08-12] MEDS: ENOXAPARIN INJECTION 30 MG/0.3 ML SYR SC SCH (20:13)
[2022-08-12] MEDS: MELATONIN 3 MG TABLET PO PRN (22:28)
[2022-08-12 23:03] VITALS: BP 154/74
[2022-08-13 04:22] VITALS: BP 155/72
[2022-08-13] MEDS: NS IV 1000 ML 1,000 ML IV SCH (04:48)
[2022-08-13] MEDS: LEVOTHYROXINE 50 MCG (LEVOTHROID) TAB PO SCH (05:14)
[2022-08-13] MEDS: inSUlin ASPART (NovoLOG) 1 UNIT/0.01 ML (CHARGE PER UNIT) SC SCH ×2 (05:14→11:27)
[2022-08-13 05:46] LABS: BASOPHILS # (AUTO) 0.1 10^3/uL (0.0-0.1); BASOPHILS % (AUTO) 1 % (0-10); EOSINOPHILS # (AUTO) 0.5 10^3/uL (0.0-0.3); EOSINOPHILS % (AUTO) 4 % (0-10); HEMATOCRIT 29 % (35-52); HEMOGLOBIN 8.7 g/dL (11.5-16.0); LYMPHOCYTES # (AUTO) 2.6 10^3/uL (1.0-4.0); LYMPHOCYTES % (AUTO) 20 % (12-44); MEAN CORPUSCULAR HEMOGLOBIN 26 pg (25-34); MEAN CORPUSCULAR HGB CONC 30 g/dL (32-36); MEAN CORPUSCULAR VOLUME 87 fL (80-99); MEAN PLATELET VOLUME 9.3 fL (9.0-12.2); MONOCYTES # (AUTO) 0.8 10^3/uL (0.0-1.0); MONOCYTES % (AUTO) 6 % (0-12); NEUTROPHILS # (AUTO) 8.9 10^3/uL (1.8-7.8); NEUTROPHILS % (AUTO) 69 % (42-75); PLATELET COUNT 516 10^3/uL (130-400); WHITE BLOOD COUNT 12.9 10^3/uL (4.3-11.0)
[2022-08-13 06:01] LABS: ALBUMIN 2.7 GM/DL (3.2-4.5); BILIRUBIN,TOTAL 0.2 MG/DL (0.1-1.0); CALCIUM 8.2 MG/DL (8.5-10.1); CREATININE SERUM 2.59 MG/DL (0.60-1.30); MAGNESIUM 1.5 MG/DL (1.6-2.4); POTASSIUM 3.9 MMOL/L (3.6-5.0); TOTAL PROTEIN 6.6 GM/DL (6.4-8.2)
--- NOTE | 2022-08-13 07:19 | Progress Note - Surgery ---
Subjective Date Seen by a Provider: Aug 13, 2022 Time Seen by a Provider: 07:12 Subjective/Events-last exam Patient is laying in bed watching TV She is still having diarrhea She has no appetite this morning Is having LLQ abdominal pain Denies any fever, chills, body aches Labs reviewed Objective Exam Vital Signs Date Time Temp Pulse Resp B/P (MAP) Pulse Ox O2 Delivery O2 Flow Rate FiO2 08/13/22 04:22 36.4 75 20 155/72 (99) 98 Room Air 08/12/22 23:03 36.3 77 20 154/74 (100) 97 Room Air 0.00 08/12/22 20:00 Room Air 08/12/22 19:31 36.7 76 20 166/76 (106) 97 Room Air 08/12/22 16:38 36.7 74 20 171/76 (107) 99 Room Air 08/12/22 11:33 36.6 72 20 163/76 (105) 98 Room Air 08/12/22 08:00 Room Air 08/12/22 07:25 35.9 79 16 176/81 (112) 97 I & O 08/13/22 07:00 Intake Total 5770 ml Output Total 8800 ml Balance -3030 ml Capillary Refill : Less Than 3 Seconds General Appearance: No Apparent Distress, WD/WN HEENT: PERRL/EOMI; No Scleral Icterus (L), No Scleral Icterus (R) Neck: Normal Inspection, Supple Respiratory: Lungs Clear, Normal Breath Sounds Cardiovascular: Regular Rate, Rhythm, No Edema, No Murmur Peripheral Pulses: 2+ Radial Pulses (R), 2+ Radial Pulses (L) Gastrointestinal: soft, tenderness (In LLQ) Extremity: No Calf Tenderness, Other (Incision sites are healing well, granulation tissue present on all sites. No bleeding present. Bandages changed ) Neurologic/Psychiatric: Alert, Oriented x3, Normal Mood/Affect, Sensory Deficit (Feet) Skin: Normal Color, Warm/Dry Lymphatic: No Adenopathy Results Lab Laboratory Tests 08/12/22 10:53: Glucometer 167H 08/12/22 16:43: Glucometer 171H 08/12/22 20:09: Glucometer 195H 08/13/22 05:03: Glucometer 158H 08/13/22 05:30: White Blood Count 12.9H, Red Blood Count 3.37L, Hemoglobin 8.7L, Hematocrit 29L, Mean Corpuscular Volume 87, Mean Corpuscular Hemoglobin 26, Mean Corpuscular Hemoglobin Concent 30L, Red Cell Distribution Width 16.0H, Platelet Count 516H, Mean Platelet Volume 9.3, Immature Granulocyte % (Auto) 0, Neutrophils (%) (Auto) 69, Lymphocytes (%) (Auto) 20, Monocytes (%) (Auto) 6, Eosinophils (%) (Auto) 4, Basophils (%) (Auto) 1, Neutrophils # (Auto) 8.9H, Lymphocytes # (Auto) 2.6, Monocytes # (Auto) 0.8, Eosinophils # (Auto) 0.5H, Basophils # (Auto) 0.1, Immature Granulocyte # (Auto) 0.1, Sodium Level 145, Potassium Level 3.9, Chloride Level 112H, Carbon Dioxide Level 19L, Anion Gap 14, Blood Urea Nitrogen 10, Creatinine 2.59H, Estimat Glomerular Filtration Rate 21, BUN/Creati nine Ratio 4, Glucose Level 186H, Calcium Level 8.2L, Corrected Calcium 9.2, Magnesium Level 1.5L, Total Bilirubin 0.2, Aspartate Amino Transf (AST/SGOT) 26, Alanine Aminotransferase (ALT/SGPT) 18, Alkaline Phosphatase 88, Total Protein 6.6, Albumin 2.7L Microbiology 08/07/22 Urine Culture - Final, Complete YEAST 08/05/22 Gram Stain - Final, Resulted 08/05/22 Anaerobic Culture - Final, Resulted No anaerobes isolated 08/05/22 Surgical Culture - Final, Resulted Staphylococcus aureus 08/05/22 Fungal Culture 1 - Preliminary, Resulted Culture In Progress 08/04/22 MRSA Screen - Final, Complete MRSA not isolated 08/02/22 Blood Culture - Final, Complete No growth Assessment/Plan Assessment/Plan Assessment/Plan S/P -Left great toe amputation, right first partial ray amputation and second toe amputation, debridement of right foot ulcer 2 x 2 cm of skin, subcutaneous tissue and tendon. POD #8 Osteomyelitis of right foot (1st metatarsal and 2nd distal phalanx) and left foot (left great toe) Ulceration of right foot plantar surface and left plantar surface of great toe Sepsis secondary to UTI or foot infections. UTI Uncontrolled Type II diabetes Bilateral non-traumatic foot fractures-one acute/ one non healed fracture LYDIA-improving creatinine to 2.59 from 2.62 Antibiotics finished. Surgical wound culture acquired-grew staphylococcus aureus. Sensitivities in micro report. Awaiting fungal culture Insulin as needed, maintain tight glycemic control. Monitor labs Pain control Continue PT Continue post op wound care with Thania and Pavel Clinical Quality Measures DVT/VTE Risk/Contraindication: VTE Addressed: Yes VTE Present on Admission: No Contraindications-Mechi: Other *list below* Other: leg cellulitis GILBERTO FONSECA Aug 13, 2022 07:19
[2022-08-13 07:26] VITALS: BP 163/89
[2022-08-13] MEDS: SENNOSIDES 8.6 MG (SENOKOT) TAB PO SCH (09:05)
[2022-08-13] MEDS: DOCUSATE SODIUM 100 MG (COLACE) CAP PO SCH (09:05)
[2022-08-13] MEDS: COLLAGENASE 30 GM (SANTYL) TUBE TP SCH (09:06)
[2022-08-13] MEDS: ARTIFICAL TEARS 0.4 ML UNIT DOSE (REFRESH PLUS) OU SCH (09:18)
[2022-08-13] MEDS: MULTIVIT W/MINERALS TAB (THERAGRAN M) PO SCH (09:18)
[2022-08-13] MEDS: amLODIPine 5 MG (NORVASC) TAB PO SCH (09:18)
[2022-08-13] MEDS: ACETAMINOPHEN 325 MG TABLET PO PRN (09:18)
[2022-08-13] MEDS: LACTOBACILLUS ACIDOPHILUS (PROBIOTIC) CAPSULE PO SCH ×2 (09:18→12:59)
[2022-08-13] MEDS: PANTOPRAZOLE 40 MG (PROTONIX) TAB PO SCH (09:18)
[2022-08-13] MEDS ORDERED: AMLO-250 PO (10:23)
[2022-08-13] MEDS ORDERED: OXC5T PO (10:23)
[2022-08-13] MEDS ORDERED: PEN-53 MC (10:23)
[2022-08-13] MEDS ORDERED: INSU100I29 SQ (10:23)
[2022-08-13] MEDS ORDERED: PANT40TA52 PO (10:23)
--- NOTE | 2022-08-13 10:26 | Discharge Summary ---
Discharge Summary Hospital Course Was the Problem List Reviewed?: Yes Problems/Dx: (1) Diabetic foot ulcer Status: Acute (2) Cellulitis Status: Acute (3) Acute kidney failure Status: Acute Qualifiers: Qualified Codes: N17.9 - Acute kidney failure, unspecified (4) Diabetes mellitus, type 2 Status: Chronic Qualifiers: Qualified Codes: E11.621 - Type 2 diabetes mellitus with foot ulcer; L97.509 - Non-pressure chronic ulcer of other part of unspecified foot with unspecified severity (5) Osteomyelitis Status: Acute Qualifiers: Qualified Codes: M86.179 - Other acute osteomyelitis, unspecified ankle and foot (6) Sepsis Status: Acute Hospital Course Date of Admission: Aug 02, 2022 at 21:19 Admission Diagnosis : Family Physician/Provider: Ana Farah MD Date of Discharge: 08/13/22 Discharge Diagnosis: [ ] Hospital Course: Patient is a 57 -year-old female with a history of uncontrolled DM, neuropathy, HLD, and HTN who presented to the ED via POV on 08/02 for b/l foot pain and erythema. The patient stated that she has had a nonhealing ulcer on her left foot for over a year and a lesion on her right foot that she noticed two weeks prior to admission. She had previously been following with wound care outpatient, but has not followed with them since September. The patient underwent amputation of her right great toe in March. The patient was seen at [facility] by Dr. Farah on 08/02 and was told to go the ED due to her elevated lactic acid levels. The patient was given antibiotics of which she took one dose. The patient was found to have a temperature of 100.9 on admission and states that she has had a fever for the past week. Wound cultures were obtained which grew staph aureus, strep canis, pasteurella multocida, and pasteurella dagmatis. The patient was placed on a regimen of augmentin, vancomycin, and zosyn. Urinalysis and culture revealed that the patient had a UTI. X-rays of the feet showed b/l osteomyelitis, and the patient underwent amputation of the left great toe, right first partial ray, left second toe, and debridement of necrotic tissue. Wound dressings were done with Vashe and Santyl and the patient's sister was instructed on how to change the dressing. The patient's creatinine was found to be elevated during her stay, but has slowly been improving. Social work has been consulted for help with home health. The patient is currently feeling well, she is having some mild pain at the sites of incision, but she feels that her pain is well-controlled. The patient has no other complaints. Labs and Pending Lab Test: Laboratory Tests 08/12/22 10:53: Glucometer 167H 08/12/22 16:43: Glucometer 171H 08/12/22 20:09: Glucometer 195H 08/13/22 05:03: Glucometer 158H 08/13/22 05:30: White Blood Count 12.9H, Red Blood Count 3.37L, Hemoglobin 8.7L, Hematocrit 29L, Mean Corpuscular Volume 87, Mean Corpuscular Hemoglobin 26, Mean Corpuscular Hemoglobin Concent 30L, Red Cell Distribution Width 16.0H, Platelet Count 516H, Mean Platelet Volume 9.3, Immature Granulocyte % (Auto) 0, Neutrophils (%) (Auto) 69, Lymphocytes (%) (Auto) 20, Monocytes (%) (Auto) 6, Eosinophils (%) (Auto) 4, Basophils (%) (Auto) 1, Neutrophils # (Auto) 8.9H, Lymphocytes # (Auto) 2.6, Monocytes # (Auto) 0.8, Eosinophils # (Auto) 0.5H, Basophils # (Auto) 0.1, Immature Granulocyte # (Auto) 0.1, Sodium Level 145, Potassium Level 3.9, Chloride Level 112H, Carbon Dioxide Level 19L, Anion Gap 14, Blood Urea Nitrogen 10, Creatinine 2.59H, Estimat Glomerular Filtration Rate 21, BUN/Creatinine Ratio 4, Glucose Level 186H, Calcium Level 8.2L, Corrected Calcium 9.2, Magnesium Level 1.5L, Total Bilirubin 0.2, Aspartate Amino Transf (AST/SGOT) 26, Alanine Aminotransferase (ALT/SGPT) 18, Alkaline Phosphatase 88, Total Protein 6.6, Albumin 2.7L Microbiology 08/07/22 Urine Culture - Final, Complete YEAST 08/05/22 Gram Stain - Final, Resulted 08/05/22 Anaerobic Culture - Final, Resulted No anaerobes isolated 08/05/22 Surgical Culture - Final, Resulted Staphylococcus aureus 08/05/22 Fungal Culture 1 - Preliminary, Resulted Culture In Progress 08/04/22 MRSA Screen - Final, Complete MRSA not isolated 08/02/22 Blood Culture - Final, Complete No growth Home Meds Active Advocate Pen Needle (Pen Needle, Diabetic) 33 Gauge X 5/32" Dis.needle Each MC BID Levemir Flextouch (Insulin Detemir) 100 Unit/Ml (3 Ml) Insuln.pen 7 Unit SQ BID Pantoprazole Sodium 40 Mg Tablet.dr 40 Mg PO DAILY Oxyir Tablet (Oxycodone HCl) 5 Mg Tab 5 Mg PO Q4H PRN Amlodipine Besylate 5 Mg Tablet 5 Mg PO DAILY Reported Restasis (Cyclosporine) 0.05 % Droperette 1 Drop OU BID Lidocaine 5% Patch (Lidocaine) 5 % Adh..patch 1 Patch TD DAILY PRN Bupropion HCl Sr (Bupropion HCl) 150 Mg Tablet.er 100 Mg PO DAILY Olmesartan Medoxomil 20 Mg Tablet 20 Mg PO HS Farxiga (Dapagliflozin Propanediol) 10 Mg Tablet 10 Mg PO DAILY Triamcinolone Acetonide 0.1% Cream (Triamcinolone Acet) 0.1 % Cr 1 Applic TOP TID PRN Doxycycline Hyclate 100 Mg Tablet 100 Mg PO BID FILLED 08-02-2022 #20/10 DAY SUPPLY Metformin HCl 500 Mg Tablet 1,000 Mg PO HS TAKES 2 (500MG) TABS Ventolin Hfa (Albuterol Sulfate) 1 Puff Puff 2 Puff INH Q4H PRN Miralax (Polyethylene Glycol 3350) 17 Gram/Dose Powder 17 Gm PO DAILY PRN Atorvastatin Calcium 40 Mg Tablet 40 Mg PO HS Women's 50 Plus Multivit Tab (Mv-Mn/Folic Acid/Calcium/Vit K) 1 Each Tablet 1 Each PO DAILY Amitriptyline HCl 25 Mg Tablet 25 Mg PO HS Duloxetine HCl 30 Mg Capsule.dr 30 Mg PO HS TAKES 30MG +60MG TO EQUAL 90MG Duloxetine HCl 60 Mg Capsule.dr 60 Mg PO HS TAKES 30MG +60MG TO EQUAL 90MG Promethazine Tablet (Promethazine HCl) 25 Mg Tablet 25 Mg PO Q6H PRN Potassium Chloride 10 Meq Capsule.er 10 Meq PO BID Levothyroxine Sodium 50 Mcg Tablet 50 Mcg PO DAILY Metformin HCl 500 Mg Tablet 500 Mg PO DAILY Assessment/Pt Instructions PCP in 1 week Discharge Planning: <30 minutes discharge planning Discharge Instructions Discharge Diet: ADA Diet Discharge Physical Examination Vital Signs Vital Signs Date Time Temp Pulse Resp B/P (MAP) Pulse Ox O2 Delivery O2 Flow Rate FiO2 08/13/22 07:26 36.3 71 18 163/89 (113) 100 Room Air 08/12/22 23:03 0.00 General Appearance: No Apparent Distress, WD/WN, Chronically ill Allergies: Coded Allergies: No Known Drug Allergies (Unverified , 10/02/18) Discharge Summary Date of Admission Aug 02, 2022 at 21:19 Date of Discharge Discharge Date: Aug 13, 2022 Admission Diagnosis Osteomyelitis with sepsis Discharge Diagnosis Assessment: Osteomyelitis of foot - Continue IV antibiotics and monitor for signs of improvement. Wound culture acquired. Wound care and surgical consult needed to reach best overall treatment plan S/P -Left great toe amputation, right first partial ray amputation and second toe amputation, debridement of right foot ulcer 2 x 2 cm of skin, subcutaneous tissue and tendon. POD #5- Healing well Sepsis - secondary to UTI or foot infections. Continue antibiotic therapy and monitor labs for improvement or worsening of condition acute Acute kidney injury UTI - continue IV antibiotics Uncontrolled Type II diabetes - Insulin as needed, patient non-compliance with diabetic management complicates treatment Bilateral non-traumatic foot fractures Plan: Monitor creatinine Supportive care Clinical Quality Measures DVT/VTE Risk/Contraindication: VTE Addressed: Yes VTE Present on Admission: No Contraindications-Mechi: Other *list below* Other: leg cellulitis WAYNE SUNSHINE DO Aug 13, 2022 10:26
--- NOTE | 2022-08-13 10:26 | D/C HH Face to Face Order ---
D/C HH Face to Face Orders Reconcile Patient Problems Problems Reviewed?: Yes Instructions for Patient HH Patient Instructions/FollowUp: PCP 1 week Physician to follow Patient: [facility] Discharge Diet for Home: ADA Diet Patient Problems: toe amputations Patient Data-Allergies,Ht & Wt Patient Allergies: Coded Allergies: No Known Drug Allergies (Unverified , 10/02/18) Height (Feet): 5 Height (Inches): 0 Weight (Pounds): 179 Weight (Ounces): 4.0 Home Health Need/Face to Face Date of Face to Face: Aug 13, 2022 Clinical Findings: Generalized weakness and fatigue, Instability, Muscle weakness, Non-healing wound I have seen Pt [id number]: Yes Discharged To: Home Diagnosis/Conditions: amputations Patient is Homebound due to: Lee fall risk due to instabilty, Muscle weakness Homebound Status Due to the above stated illness, injury or surgical procedure (medical condition or diagnosis) and associated clinical findings, the patient is homebound because of his/her inability to leave home except with aid of a supportive device and/or person AND leaving the home requires a considerable and taxing effort or is medically contraindicated. Pt req the following assistanc: [facility] Nursing Orders Home Health Services Order: Nursing Services, House Worker-Evaluate & Treat, Physical Therapy-Evaluate & Treat, Wound Care-Eval/Treat Home Health Infusion Therapy Line Start Date: Aug 09, 2022 Certify Stmt I certify that this patient is under my care and that I, a nurse practitioner or a physician; a graduate assistant athletic trainer working with me, had a face to face encounter that - meets the physician face to face encounter requirements with this patient as dated. WAYNE SUSNHINE DO Aug 13, 2022 10:26
--- NOTE | 2022-08-13 11:10 | Progress Note - Hospitalist ---
JUANJOSE EAGLE 08/13/22 1110: Subjective HPI/CC On Admission Date Seen by Provider: Aug 13, 2022 Time Seen by Provider: 09:45 CC: Bilateral foot pain with redness HPI: This is a 57 yr old female with very complicated issues. Including diabetes out of control and previous amputations of the toe. She presented to the ER with fever. She was found to have bilateral osteomyelitis of the feet. She was placed on Zosyn and Vancomycin. IV fluids were given for hypotension that was not due to severe sepsis. She was given IV fluids but Midodrine was started due to chronic orthostasis. Subjective/Events-last exam Patient is a 57 -year-old female with a history of uncontrolled DM, neuropathy, HLD, and HTN who presented to the ED via POV on 08/02 for b/l foot pain and erythema. The patient stated that she has had a nonhealing ulcer on her left foot for over a year and a lesion on her right foot that she noticed two weeks prior to admission. She had previously been following with wound care ou tpatient, but has not followed with them since September. The patient underwent amputation of her right great toe in March. The patient was seen at [facility] by Dr. Farah on 08/02 and was told to go the ED due to her elevated lactic acid levels. The patient was given antibiotics of which she took one dose. The patient was found to have a temperature of 100.9 on admission and states that she has had a fever for the past week. Wound cultures were obtained which grew staph aureus, strep canis, pasteurella multocida, and pasteurella dagmatis. The patient was placed on a regimen of augmentin, vancomycin, and zosyn. Urinalysis and culture revealed that the patient had a UTI. X-rays of the feet showed b/l os teomyelitis, and the patient underwent amputation of the left great toe, right first partial ray, left second toe, and debridement of necrotic tissue. Wound dressings were done with Vashe and Santyl and the patient's sister was instructed on how to change the dressing. The patient's creatinine was found to be elevated during her stay, but has slowly been improving. Social work has been consulted for help with home health. The patient is currently feeling well, she is having some mild pain at the sites of incision, but she feels that her pain is well-controlled. The patient has no other complaints. Review of Systems General: No Chills, No Night Sweats HEENT: No Visual Changes, No Eye Pain Pulmonary: No Dyspnea, No Cough Cardiovascular: No: Chest Pain, Palpitations Gastrointestinal: Abdominal Pain (LLQ episodic, patient states chronic issue); No: Nausea, Vomiting Genitourinary: No Incontinence, No Hematuria Neurological: No: Change in speech, Confusion Objective Exam Vital Signs Vital Signs Date Time Temp Pulse Resp B/P (MAP) Pulse Ox O2 Delivery O2 Flow Rate FiO2 08/13/22 11:48 36.3 65 18 145/75 (98) 99 Room Air 08/12/22 23:03 0.00 Capillary Refill : Less Than 3 Seconds General Appearance: No Apparent Distress, WD/WN HEENT: PERRL/EOMI Neck: Non Tender, Supple Respiratory: Chest Non Tender, Normal Breath Sounds Cardiovascular: Regular Rate, Rhythm, No Murmur Gastrointestinal: Non Tender, Soft Rectal: Deferred Extremity: No Calf Tenderness, Other (mild pain at sites of incision) Neurologic/Psychiatric: Alert, Oriented x3 Skin: Other (Lesions on b/l feet) Lymphatic: No Adenopathy Results/Procedures Lab Laboratory Tests 08/13/22 05:30 Patient resulted labs reviewed. Procedures Wound cultures acquired. Vashe applied to wound site as well as aquasil dressing. Assessment/Plan Assessment and Plan Assess & Plan/Chief Complaint B/l osteomyelitis S/P amputation of left great toe, right first partial ray, and right second toe LYDIA T2DM - poorly controlled HTN HLD Neuropathy GERD Hypothyroidism Obesity - BMI 40 Completed antibiotics Instructed on how to change dressings Home health Creatinine improved to 2.59 today Home medications for HTN, HLD Insulin as needed Counseled patient on benefits of weight loss, tight glycemic control Clinical Quality Measures DVT/VTE Risk/Contraindication: VTE Addressed: Yes VTE Present on Admission: No Contraindications-Mechi: Other *list below* Other: leg cellulitis ALEJA SAWYER DO 08/14/22 0457: Supervisory-Addendum Brief Verification & Attestation Participated in pt care: history, MDM, physical Personally performed: exam, history, MDM, supervision of care Care discussed with: Medical Student Procedures: n/a Results interpretation: Verified all documentation Verification and Attestation of Medical Student E/M Service A medical student performed and documented this service in my presence. I reviewed and verified all information documented by the medical student and made modifications to such information, when appropriate. I personally performed the physical exam and medical decision making. Aleja Sawyer, Aug 14, 2022,04:57 JUANJOSE EAGLE Aug 13, 2022 11:10 ALEJA SAWYER DO Aug 14, 2022 04:57
[2022-08-13 11:48] VITALS: BP 145/75
== END 2022-08-13 14:15 | disposition home health service (06) | DRG 854 ==
LOC: EDUNIT# 19:54 → ER 19:56 → ICU 21:19 → UNDOADMIN 21:19 → 4TH 08-03 12:47
PROVIDERS: ADMIT Internal Medicine; ATTEND Internal Medicine
PROC: 0Y6P0Z0 Detachment at Right 1st Toe, Complete, Open Approach (ICD-10-PCS; 2022-08-05)
PROC: 0Y6R0Z2 Detachment at Right 2nd Toe, Mid, Open Approach (ICD-10-PCS; 2022-08-05)
PROC: 0Y6Q0Z0 Detachment at Left 1st Toe, Complete, Open Approach (ICD-10-PCS; principal; 2022-08-05 08:55)
DX: A41.9 Sepsis, unspecified organism (principal); K52.1 Toxic gastroenteritis and colitis; M86.8X7 Other osteomyelitis, ankle and foot; L03.116 Cellulitis of left lower limb; N17.9 Acute kidney failure, unspecified; N39.0 Urinary tract infection, site not specified; M84.475A Pathological fracture, left foot, initial encounter for fracture; M84.474A Pathological fracture, right foot, initial encounter for fracture; Z68.41 Body mass index [BMI] 40.0-44.9, adult; E11.69 Type 2 diabetes mellitus with other specified complication; E11.621 Type 2 diabetes mellitus with foot ulcer; L97.509 Non-pressure chronic ulcer of other part of unspecified foot with unspecified severity; E11.65 Type 2 diabetes mellitus with hyperglycemia; K21.9 Gastro-esophageal reflux disease without esophagitis; E03.9 Hypothyroidism, unspecified; I10 Essential (primary) hypertension; R10.9 Unspecified abdominal pain; T36.95XA Adverse effect of unspecified systemic antibiotic, initial encounter; F17.210 Nicotine dependence, cigarettes, uncomplicated; Z79.84 Long term (current) use of oral hypoglycemic drugs; Z79.899 Other long term (current) drug therapy; Z86.711 Personal history of pulmonary embolism; E78.00 Pure hypercholesterolemia, unspecified; Z86.718 Personal history of other venous thrombosis and embolism; E11.51 Type 2 diabetes mellitus with diabetic peripheral angiopathy without gangrene; G43.909 Migraine, unspecified, not intractable, without status migrainosus; M19.90 Unspecified osteoarthritis, unspecified site; M41.9 Scoliosis, unspecified; F41.9 Anxiety disorder, unspecified; F32.A Depression, unspecified; T39.395A Adverse effect of other nonsteroidal anti-inflammatory drugs [NSAID], initial encounter; E11.42 Type 2 diabetes mellitus with diabetic polyneuropathy; D64.9 Anemia, unspecified; R65.20 Severe sepsis without septic shock; Z91.14 Patient's other noncompliance with medication regimen
CPT/HCPCS: 36415; 71045; 74019; 80048; 80053; 80202; 81000; 82570; 82947; 83605; 83735; 84100; 84145; 84156; 84300; 85007; 85025; 85027; 85610; 85652; 85730; 86141; 87040; 87070; 87075; 87077; 87081; 87088; 87101; 87185; 87186; 87205; 93005; 93041; 94640; 94760; 96361; 96365; 96367

== ENCOUNTER → 2022-08-02 | Outpatient (CLI) | payer MEDICARE, MEDICAID ==
[~2022-08-02] MED LIST changes: +BUPR150T28 PO; +CYCL1DRO OU; +DAPA10TA PO; +DOXY100T2 PO; +LIDO700A45 TD; +OLME20TA24 PO; +TR1C15 TOP
[2022-08-02 18:53] LABS: BASOPHILS # (AUTO) 0.1 10^3/uL (0.0-0.1); BASOPHILS % (AUTO) 1 % (0-10); EOSINOPHILS # (AUTO) 0.2 10^3/uL (0.0-0.3); EOSINOPHILS % (AUTO) 1 % (0-10); HEMATOCRIT 34 % (35-52); HEMOGLOBIN 10.8 g/dL (11.5-16.0); LYMPHOCYTES # (AUTO) 2.8 10^3/uL (1.0-4.0); LYMPHOCYTES % (AUTO) 15 % (12-44); MEAN CORPUSCULAR HEMOGLOBIN 26 pg (25-34); MEAN CORPUSCULAR HGB CONC 32 g/dL (32-36); MEAN CORPUSCULAR VOLUME 84 fL (80-99); MEAN PLATELET VOLUME 8.5 fL (9.0-12.2); MONOCYTES # (AUTO) 1.4 10^3/uL (0.0-1.0); MONOCYTES % (AUTO) 8 % (0-12); NEUTROPHILS # (AUTO) 14.4 10^3/uL (1.8-7.8); NEUTROPHILS % (AUTO) 76 % (42-75); PLATELET COUNT 616 10^3/uL (130-400); WHITE BLOOD COUNT 19.1 10^3/uL (4.3-11.0)
[2022-08-02 19:03] LABS: ALBUMIN 3.2 GM/DL (3.2-4.5); POTASSIUM 4.2 MMOL/L (3.6-5.0)
[2022-08-02 19:04] LABS: CALCIUM 9.2 MG/DL (8.5-10.1)
[2022-08-02 19:05] LABS: TOTAL PROTEIN 7.9 GM/DL (6.4-8.2)
[2022-08-02 19:07] LABS: BILIRUBIN,TOTAL 0.4 MG/DL (0.1-1.0)
[2022-08-02 19:09] LABS: CREATININE SERUM 1.05 MG/DL (0.60-1.30)
[2022-08-02 19:33] LABS: HYPOCHROMASIA SLIGHT; LYMPHOCYTES % (MANUAL) 13 %; MONOCYTES % (MANUAL) 5 %; NEUTROPHILS % (MANUAL) 82 %; POIKILOCYTOSIS SLIGHT
[2022-08-02 19:36] LABS: ERYTHROCYTE SEDIMENTATION RATE > 140 MM/HR (0-30)
== END ==
LOC: LAB 18:32
PROVIDERS: ATTEND Family Medicine
DX: M86.171 Other acute osteomyelitis, right ankle and foot (principal)
CPT/HCPCS: 36415; 80053; 83605; 85007; 85027; 85652; 86141; 87040

== ENCOUNTER → 2022-11-12 | Outpatient (CLI) | payer MEDICARE, MEDICAID ==
[~2022-11-12] MED LIST changes: +AMLO-250 PO; +BUPR150T28 PO; +CYCL1DRO OU; +DAPA10TA PO; +DOXY100T2 PO; +INSU100I29 SQ; +LIDO700A45 TD; +OLME20TA24 PO; +OXC5T PO; +PEN-53 MC; -POTA10CA43 PO; +POTA10CA44 PO; +TR1C15 TOP
--- NOTE | 2022-11-12 11:18 | Diagnostic Imaging Report ---
PROCEDURE: MRI right lower extremity without contrast. TECHNIQUE: Multiplanar, multisequence non contrast-enhanced MRI of the right lower extremity was accomplished. INDICATION: Swelling of the right foot, ulceration of the right foot COMPARISON: Radiographs from 08/02/2022 FINDINGS: There are postsurgical changes from prior amputation at the base of the right 1st metatarsal and the 2nd toe in the region of the 2nd metatarsal shaft. There are claw toe deformities of the remaining lesser toes. No acute fracture is seen in the right foot. There is bone marrow edema in the medial cuneiform, 1st metatarsal base, 2nd metatarsal shaft and stump, 3rd metatarsal head and 3rd toe proximal phalangeal base, although with associated T1-weighted marrow replacement and hypointensity. Findings are consistent with osteomyelitis. There is patchy bone marrow edema elsewhere in the midfoot and the 3rd metatarsal, which may represent osteitis. There is an ulceration or scarring along the medial and dorsal aspect of the foot. There appears to be a small fluid collection along the skin surface distal to the 2nd metatarsal stump, measuring approximately 1.3 x 1.6 cm in size. There is diffuse superficial and deep soft tissue edema about the right foot, likely due to infection as well as neurogenic changes. IMPRESSION: 1. Postsurgical changes in the right foot. Findings of osteomyelitis of the medial cuneiform, 1st metatarsal stump, 2nd metatarsal shaft, 3rd metatarsal head and 3rd toe proximal phalanx. Additional areas of osteitis without osteomyelitis are seen in the right foot. 2. Fluid collection in the soft tissues distal to the 2nd metatarsal stump. Diffuse superficial and deep soft tissue edema. Dictated by: Dictated on workstation # [id number]
== END ==
LOC: RAD 09:54
PROVIDERS: ATTEND Nurse Practitioner
DX: M86.171 Other acute osteomyelitis, right ankle and foot (principal); L97.529 Non-pressure chronic ulcer of other part of left foot with unspecified severity

== ENCOUNTER 2022-12-13 05:35 | Outpatient (CLI) | payer MEDICARE, MEDICAID ==
[~2022-12-13] VITALS: Ht 152.4 cm; Wt 78.6 kg
[~2022-12-13 05:35] MED LIST changes: +ACET-93 PO; +FAMO20TA3 PO; +FERR325T24 PO; +INSU100I88 SQ; +MELA1TAB15 PO; -MELA1TAB20 PO; +MELA1TAB72 PO
== END 2022-12-18 08:52 | disposition home or self-care (01) ==
LOC: PREOP 05:35
PROVIDERS: ATTEND Surgery
DX: Z01.818 Encounter for other preprocedural examination (principal); M86.9 Osteomyelitis, unspecified

== ENCOUNTER 2022-12-20 06:42 | Inpatient (IN) | payer MEDICARE, MEDICAID ==
[~2022-12-20] VITALS: Ht 152.4 cm; Wt 75.7 kg
[2022-12-20] VITALS (11 sets, daily range): BP systolic 89–127; BP diastolic 39–80
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
--- OUTSIDE RECORDS SUMMARY | 2022-12-20 06:45 | XMS REPORT ---
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 confirmed 153508375 Problem Type 2 diabetes mellitus with diabetic polyneuropathy E11.42 confirmed 525869834 Problem DM neuro manif type II E11.49 confirmed 37177662 Problem Type II or unspecified type diabetes mellitus with neurological manifestations, not stated as uncontrolled E11.49 confi rmed 17387188 Problem Non-pressure chronic ulcer o f other part of right foot with unspecified severity L97.519 confirmed Problem Essential hypertension I10 confirmed 21633893 Problem Status post amputation of right great toe Z89.411 confirmed [id number] Problem Anxiety F41.9 confirmed 51951888 Problem Gastroesophageal reflux disease, esophagitis pre sence not specified K21.9 confirmed 002050490 Problem Presence of IVC filter Z95.828 confirmed [id number] Has migrated, has seen multiple Vascular surgeons who recommend no intervention. Problem Primary insomnia F51.01 confirmed 193 256357 Problem Hypothyroidism, unspecified hypothyroidism type E03.9 confirmed 60433196 Problem Tinnitus of both ears H93.13 confirmed 6739492120787 Problem Constipation by delayed colonic transit K59.01 confirmed 88247333 Problem Personality disorder, unspecified F60.9 con firmed 47506903 Problem Sensorineural hearing loss (SNHL) of both ears H90.3 confirmed 729403007 Problem Spinal stenosis at L4-L5 [id number] with severe stenosis at L4-L5, moderate L3-L4. Pain management MRI lumbar spine- 04/20/22- multilevel mid to moderate spondylosis, DDD throughout lumbosacral spine with mild to moderate spinal stenosis at L3-4 and L4-5. Varying degree of up to significant neural foraminal stenosis. Osteopenia and scoliosis. Problem Other chronic pain G89.29 confirmed 8 6191651 Problem Leukocytosis, unspecified type D72.829 cox bransoni ed [id number] Has seen Hematology. 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 10/2016 Bone marrow with FISH for MDS miller el negative. Problem Periodic limb movement sleep disorder G47.61 confirmed 515816318 Problem Non-pressure chronic ulcer o f other part of left foot limited to breakdown of skin L97.521 confirmed 753346836 Problem Morbid obesity due to excess calories E66.01 confirmed 570488133 Problem Type 2 diabetes mellitus with foot ulcer E11.621 confirmed 290079372161891 Problem Moderate episode of recurrent major depressive disorder F33.1 Inactive confirmed 943364418 Problem BMI 35.0-35.9,adult Z68.35 Inactive confirmed 258838307 Problem At high risk for adverse medication event Z91.89 confirmed 148852742815693 Problem Esophageal dysphagia R13.10 confirmed 16792975 Problem GERD with esophagitis K21.0 confirmed 423365850 Problem Tingling of right upper extremity R20.2 con firmed 892557961 Problem BMI 33.0-33.9,adult Z68.33 Inactive confirmed 484070351 Problem Suspected chronic obstructiv e pulmonary disease based on initial evaluation J44.9 confirmed 52101245 Problem Neuroforaminal stenosis of lumbosacral spine M99.83 confirmed [id number] MRI 12/2018 with moderate to severe neuro foraminal stenosis at multiple levels from L2-S1. Problem BMI 36.0-36.9,adult Z68.36 confirmed 327295409 Problem Essential (primary) hypertension I10 Inactive co nfirmed 51027152 Problem Tobacco use disorder F17.200 Problem resolved confi rmed 231597432 Problem Cigarette smoker F17.210 Problem resolved confirmed 05088218 Problem Diabetic peripheral neuropathy E11.42 confir med 119931079 Problem Nicotine dependence, cigarettes, with ot her nicotine-induced disorders F17.218 Problem resolved confirmed 93811070 Problem Non-pressure chronic ulcer o f other part of left foot with fat layer exposed L97.522 confirmed 802318218 Problem Diabetes mellitus with ulcer of foot E11.621 confirmed 2269855755322 Problem 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 L97.514 confirmed 99431160943776979 Problem Screening mammogram for breast cancer Z12.31 In active confirmed 53983652 Problem Non-pressure chronic ulcer o f other part of right foot with fat layer exposed L97.512 confirmed Problem Other acute osteomyelitis of right foot M86.171 Problem resolved confirmed 7703772930699626 Problem Acute hematogenous osteomyelitis, left ankle and foot M86.072 Problem resolved confirmed 232695456 Problem Acute hematogenous osteomyelitis, right ankle and foot M86.071 Problem resolved confirmed 026756434 Problem Other osteomyelitis, ankle and foot M86.8X7 Problem resolved confirmed 124501256 Problem Non-pressure chronic ulcer o f other part of unspecified foot with unspecified severity L97.509 confirmed 890089841 Problem Type 2 diabetes mellitus with other specified complication E11.69 confirmed 49957339616570 Problem BMI 31.0-31.9,adult Z68.31 confirmed 343168476 Problem Non-pressure chronic ulcer o f other part of left foot with necrosis of muscle L97.523 confirmed Problem Non-pressure chronic ulcer o f other part of left foot with unspecified severity L97.529 confirmed 491800687 Problem Major depressive disorder, recurrent sev ere without psychotic features F33.2 confirmed 11777773 Problem S/P amputation Z89.9 confirmed 56946 5003 Problem Status post amputation of left great toe Z89.412 confirmed 813547569 ALLERGIES Allergen (clinical drug ingredient) Drug/Non Drug Allergy do cumented on EMR Reaction Allergy Type Onset Date Status tizanidine tiZANidine HCl([facility] Code:[address]-38) dizziness /vertigo Drug Allergy Active ENCOUNTERS from 1965 to 2022-11-08 Encounter Location Date Provider Diagnosis [facility] [id number] [place] [address] Nov, GEO ASPEN Chest wall pain R07. 89 ; Moderate episode of recurrent major depressive disorder F33.1 ; Subcutaneous nodule of left upper extremity R22.32 and Tingling of right upper extremity R20.2 IMMUNIZATIONS Vaccine Route Administration Date Status 2nd [...] other tobacco user? No REASON FOR REFERRAL from 1965 to 2022-11-08 Reason right upper extremity tingli ng Diagnosis 1 Tingling of right upper extr emity (R20.2) Referral Organization [facility] Referring Provider First Name GEO Referring Provider Last Name ASPEN Referring Provider Specialty Family Practice Referred Provider RYNE CARDONA Referred Provider Specialty Neurology Referral Priority Routine General Notes Sowmya Ambrocio 12/07/2020 10:51: 14 AM > faxed to [facility] Clinical Notes Sowmya Ambrocio 03/14/2021 8:38:3 0 AM > referral closed Reason chest wall pain, risk factor s for heart disease Diagnosis 1 Chest wall pain (R07.89) Referral Organization [facility] Referring Provider First Name GEO Referring Provider Last Name ASPEN Referring Provider Specialty Family Practice Referred Provider Camila Rausch Referred Provider Specialty Cardiology Referral Priority Urgent Referral Appointment Date 2020-12-08 General Notes [facility] 12/07/2020 1 0:58:29 AM > labs done 03/2020, EKG ordered, referral faxed [facility] 12/09/2020 9:58:24 AM > Seen 12/08/2020 [facility] 10/06/2021 3:13:45 PM > records requested VITAL SIGNS Height 61 in Nov, Weight 176.1 lbs Nov, Weight-kg 79.88 kg Nov, Temperature 97.2 degrees Fahrenheit Nov, Heart Rate 88 bpm Nov, Respiratory Rate 20 bpm Nov, Oximetry 98 % Nov, BMI 33.27 kg/m2 Nov, Blood pressure systolic 124 mmHg Nov, Blood pressure diastolic 70 mmHg Nov, MEDICATIONS Medication SIG (Take, Route, Frequency, Duration) [...] as needed Orally jayson ry 6 hrs [facility] Jul, Active Lidocaine 5 % APPLY [...] every 6 hrs fo r 7 days [facility] Aug, Active metFORMIN HCl 500 MG TAKE ONE (1) TABLET BY MOUTH IN THE MORNING AND TWO (2) TABLETS IN THE EVENING Not-Oswaldo g DULoxetine HCl 30 MG 1 capsule Orally Once a day for 90 days Active Multivitamin Orally Active DULoxetine HCl 60 MG 1 capsule Orally Once a day Active Triamcinolone Acetonide 0.1 % 1 application as needed Externally Three times daily [facility] 14 Jul, 2022 Active Polyethylene Glycol 3350 17 GM/SCOOP MIX ONE CAPFUL (1 7 GRAMS) IN 8 OUNCES OF SUITABLE LIQUID AND DRINK BY MOUTH ONCE DAILY for 30 Active TRUEdraw Lancing Device - as directed 16 Jul, 2021 Active TechLite Pen [place] 32G X 4 MM USE TWICE DAILY [...] TEST BLOOD SUGAR ONE TIME DAILY DIRECTED fo r 90 Active True Metrix Blood Glucose Test - TEST BLOOD SUGAR ONE TIME DAILY for 90 Active True Metrix Meter w/Device test blood sugar Once a day Dx: E11.6 1 Apr, Active PROCEDURES from 1965 to 2022-11-08 Procedure Date Ordered Date Performed Result Body Site EKG, TRACING (IN-HOUSE) 2020-12-06 2020-12-06 N/A RESULTS No Results REASON FOR VISIT Pain between right breast /Collar bone-pt states pain has been persistent for ab out 3-4 months, heat does not work, it hurts to lay down, just feels like muscle is aching.-andrea falcon, pt states about a month ago started getting tingling sens ation all down the back side of the arm down to the wrist, on inside of left elb ow has a bulge that appeared and not sure what that is-andrea faclon MEDICAL (GENERAL) HISTORY Type Description Date Medical [...] History Fatty liver Medical History History of Guillain-[place] syndrome Medical History Non-pressure chronic ulcer o [...] Right great toe amputation 03/2022 Surgical History [facility]-Left great toe amputation, right first partial ray amputation, second toe amputation 08/05/2022 Hospitalization History [facility] Hospitalization History Surgeries Hospitalization History [facility]-Diabetic foot ulcer, Cellulitis, LYDIA, Osteomyelitis, Sepsis 08/02-08/13/2022 Goals Section No Information Health Concerns No Information MEDICAL EQUIPMENT No Information MENTAL STATUS No Information FUNCTIONAL STATUS No Information ASSESSMENTS Encounter Date Diagnosis Assessment Notes Treatment Notes Treatm ent Clinical Notes Nov, Chest wall pain (ICD-10 - R07.89) Suspect muscular/chest wall, however, given not clearly reproducible and with risk factors for cardiac problems, will pursue cardiac work-up as well. Nov, Moderate episode of recurren t major depressive disorder (ICD-10 - F33.1) Therapy does not help and sh e has tried recently again with no help. Still taking medications. Thinks relationship with God helps. Nov, Subcutaneous nodule of left upper extremity (ICD -10 - R22.32) Ultrasound for evaluation. Will decide further treatment based on results. Nov, Tingling of right upper extremity (ICD-10 - R20. 2) Referral to neurology for EMG. Region of issue does not fit specific dermatome. Nov, Other Pt seen and exa mined by me along with OMS4 Alina Christy, agree with documentation unless otherwise noted. PLAN OF TREATMENT Medication Medication Name Sig [...] MG 1 capsule Orally Once a day Treatment Notes Assessment Notes Clinical Notes Chest wall pain Suspect muscular/chest wall, however, given not clearly reproducible and with risk factors for cardiac problems, will pursue cardiac work-up as well. Moderate episode of recurrent major depressive disorde r Therapy does not help and she has tried recently again with no help. Still taking medications. Thinks relationship with God helps. Subcutaneous nodule of left upper extremity Ultrasou nd for evaluation. Will decide further treatment based on results. Tingling of right upper extremity Referral to neurol ogy for EMG. Region of issue does not fit specific dermatome. Referrals Referral Date Details right upper extremity tingli ng, Neurology Cardona 2020-12-08 2020-12-08, chest wall pain, risk factors for heart disease, Camila Rausch Next Appt Details 4 Weeks Reason: Provider Name:GEO LOUISE, 2022-10-31 4 09:20:00 AM, [address] [facility], [place], [address], Insurance Providers Payer Name Payer Address Payer Phone Insured Name Patient Relati onship to Insured Coverage Start Date Coverage End Date Subscriber Number Group Nu mber NGS MEDICARE Part A [address] [place] [id number] Shanique Yeager Self - patient is the insured 2008 [id number] [employer] Medicare HMO [place] Plan [address] [address] [facility] [id number] Shanique Yeager Self - patient is the insured 2021 [id number] [place] [address] [facility] [address] Cristian Yeager Self - patient is the insured 2022 [id number] [place] of [place] Dental [address] [facility] [id number] Shanique Yeager Self - patient is the insured [id number]
--- OUTSIDE RECORDS SUMMARY | 2022-12-20 06:45 | XMS REPORT ---
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 confirmed 713803725 Problem Type 2 diabetes mellitus with diabetic polyneuropathy E11.42 confirmed 537169949 Problem DM neuro manif type II E11.49 confirmed 94348284 Problem Type II or unspecified type diabetes mellitus with neurological manifestations, not stated as uncontrolled E11.49 confi rmed 47552919 Problem Non-pressure chronic ulcer o f other part of right foot with unspecified severity L97.519 confirmed Problem Essential hypertension I10 confirmed 80774156 Problem Status post amputation of right great toe Z89.411 confirmed 83956294924710835 Problem Anxiety F41.9 confirmed 56889535 Problem Gastroesophageal reflux disease, esophagitis pre sence not specified K21.9 confirmed 399868606 Problem Presence of IVC filter Z95.828 confirmed 973393960 Has migrated, has seen multiple Vascular surgeons who recommend no intervention. Problem Primary insomnia F51.01 confirmed 193 005308 Problem Hypothyroidism, unspecified hypothyroidism type E03.9 confirmed 37444472 Problem Tinnitus of both ears H93.13 confirmed 7844254848233 Problem Constipation by delayed colonic transit K59.01 confirmed 03196188 Problem Personality disorder, unspecified F60.9 con firmed 47830290 Problem Sensorineural hearing loss (SNHL) of both ears H90.3 confirmed 356578221 Problem Spinal stenosis at L4-L5 level M48.061 [facility] [id number] MRI 12/2018 with severe stenosis at L4-L5, moderate L3-L4. Pain management MRI lumbar spine- 04/20/22- multilevel mid to moderate spondylosis, DDD throughout lumbosacral spine with mild to moderate spinal stenosis at L3-4 and L4-5. Varying degree of up to significant neural foraminal stenosis. Osteopenia and scoliosis. Problem Other chronic pain G89.29 confirmed 8 5991079 Problem Leukocytosis, unspecified type D72.829 [facility] 087710285 Has seen Hematology. 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 10/2016 Bone marrow with FISH for MDS miller el negative. Problem Periodic limb movement sleep disorder G47.61 confirmed 754243256 Problem Non-pressure chronic ulcer o f other part of left foot limited to breakdown of skin L97.521 confirmed 402658950 Problem Morbid obesity due to excess calories E66.01 confirmed 349624852 Problem Type 2 diabetes mellitus with foot ulcer E11.621 confirmed 844514509024053 Problem Moderate episode of recurrent major depressive disorder F33.1 Inactive confirmed 854264585 Problem BMI 35.0-35.9,adult Z68.35 Inactive confirmed 377045939 Problem At high risk for adverse medication event Z91.89 confirmed 559282160575296 Problem Esophageal dysphagia R13.10 confirmed 33895142 Problem GERD with esophagitis K21.0 confirmed 313461293 Problem Tingling of right upper extremity R20.2 con firmed 205043847 Problem BMI 33.0-33.9,adult Z68.33 Inactive confirmed 971333506 Problem Suspected chronic obstructiv e pulmonary disease based on initial evaluation J44.9 confirmed 60556847 Problem Neuroforaminal stenosis of lumbosacral spine M99.83 confirmed 984357409925 MRI 12/2018 with moderate to severe neuro foraminal stenosis at multiple levels from L2-S1. Problem BMI 36.0-36.9,adult Z68.36 confirmed 092821023 Problem Essential (primary) hypertension I10 Inactive co nfirmed 26304777 Problem Tobacco use disorder F17.200 Problem resolved confi rmed 545120999 Problem Cigarette smoker F17.210 Problem resolved confirmed 64458917 Problem Diabetic peripheral neuropathy E11.42 confir med 846967845 Problem Nicotine dependence, cigarettes, with ot her nicotine-induced disorders F17.218 Problem resolved confirmed 35312049 Problem Non-pressure chronic ulcer o f other part of left foot with fat layer exposed L97.522 confirmed 269886727 Problem Diabetes mellitus with ulcer of foot E11.621 confirmed 5664885317210 Problem 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 L97.514 confirmed 67517089317772142 Problem Screening mammogram for breast cancer Z12.31 In active confirmed 34776184 Problem Non-pressure chronic ulcer o f other part of right foot with fat layer exposed L97.512 confirmed Problem Other acute osteomyelitis of right foot M86.171 Problem resolved confirmed 0053050950203218 Problem Acute hematogenous osteomyelitis, left ankle and foot M86.072 Problem resolved confirmed 756830526 Problem Acute hematogenous osteomyelitis, right ankle and foot M86.071 Problem resolved confirmed 143448294 Problem Other osteomyelitis, ankle and foot M86.8X7 Problem resolved confirmed 306168562 Problem Non-pressure chronic ulcer o f other part of unspecified foot with unspecified severity L97.509 confirmed 122370999 Problem Type 2 diabetes mellitus with other specified complication E11.69 confirmed 91635166797021 Problem BMI 31.0-31.9,adult Z68.31 confirmed 522021917 Problem Non-pressure chronic ulcer o f other part of left foot with necrosis of muscle L97.523 confirmed Problem Non-pressure chronic ulcer o f other part of left foot with unspecified severity L97.529 confirmed 451499503 Problem Major depressive disorder, recurrent sev ere without psychotic features F33.2 confirmed 54907313 Problem S/P amputation Z89.9 confirmed 63262 5003 Problem Status post amputation of left great toe Z89.412 confirmed 992733594 ALLERGIES Allergen (clinical drug ingredient) Drug/Non Drug Allergy do cumented on EMR Reaction Allergy Type Onset Date Status tizanidine tiZANidine HCl([facility] Code:[address]-97) dizziness /vertigo Drug Allergy Active ENCOUNTERS from 1965 to 2022-11-15 Encounter Location Date Provider Diagnosis [facility] [place] [address] [id number] [place] [address] 16 Nov, 2020 GEO ASPEN Subcutaneous nodule of left upper extremity R22.32 ; Chest wall pain R07.89 ; Moderate episode of recurrent major depressive disorder F33.1 and Tingling of right upper extremity R20.2 [...] Notes Start Da te End Date Status True Metrix Blood Glucose Test - TEST BLOOD SUGAR ONE TIME DAILY for 90 Active DULoxetine HCl 30 MG 1 capsule Orally Once a day for 90 days Active True Metrix Meter w/Device test blood sugar Once a day Dx: E11.6 1 18 Apr, 2021 Active Famotidine 20 MG 1 tablet at bedtime as needed Orally Onc e a day for 30 days Please deliver Aug, Active Triamcinolone Acetonide 0.1 % 1 application as needed Externally Three times daily [facility] Jul, Active Atorvastatin Calcium 40 MG 1 tablet Orally Once a day for 90 days Active metFORMIN HCl 500 MG TAKE ONE (1) TABLET BY MOUTH IN THE MORNING AND TWO (2) TABLETS IN THE EVENING Active DULoxetine HCl 60 MG 1 capsule Orally Once a day Active Lidocaine 5 % APPLY 1 PATCH TOPICALLY ONE TIME DAILY. ALLOW PATCH TO REMAIN ON AREA FOR UP TO 12 HOURS IN A 24 HOUR PERIOD. for 90 Active Polyethylene Glycol 3350 17 GM/SCOOP MIX ONE CAPFUL (1 7 GRAMS) IN 8 OUNCES OF SUITABLE LIQUID AND DRINK BY MOUTH ONCE DAILY for 30 Active Promethazine HCl 25 MG TAKE ONE TABLET BY MOUTH JAYSON RY SIX (6) HOURS NEEDED. for 15 Active Tylenol Extra Strength 500 MG 2 tablets as needed Orally jayson ry 6 hrs [facility] Jul, Active Levemir FlexTouch 100 unit/ml INJECT 10 UNITS SUBCUTAN EOUSLY (UNDER THE SKIN) TWICE DAILY for 30 days Active Gvoke HypoPen 2-Pack 1 MG/0.2ML as directed Subcutaneous as needed for 1 days May repeat dose X1 after 15min Jul, Active Santyl 250 UNIT/GM 1 application Externally Once a day Jul, Active Pantoprazole Sodium 40 MG TAKE 1 TABLET EVERY DAY for 90 Active Levothyroxine Sodium 50 MCG Take 1 tablet on an empty stomach by oral route Once a day for 90 days Active FeroSul 325 (65 Fe) MG TAKE ONE (1) TABLET BY MOUTH ONCE DAILY for 30 Active TechLite Pen [place] 32G X 4 MM USE TWICE DAILY DIRECTED for 50 Active Olmesartan Medoxomil 20 MG 1 tablet Orally Once a day Active Restasis 0.05 % 1 drop into affected eye Ophthalmic Twice a day Active Amitriptyline HCl 25 MG 1 tablet at bedtime Orally Once a day Active TRUEdraw Lancing Device - as directed Jul, Active Ventolin HFA 108 (90 Base) MCG/ACT 2 puffs as needed Inhalation every 4 hrs PRN Mar, Active TRUEplus Lancets 28G - TEST BLOOD SUGAR ONE TIME DAILY DIRECTED fo Active Multivitamin Orally Active PROCEDURES No Information RESULTS No Results REASON FOR VISIT u/s left upper ext non vascular- Annette Minor RT(R)(M)RDMS,RVT MEDICAL (GENERAL) HISTORY Type Description Date Medical [...] History Fatty liver Medical History History of Guillain-[place] syndrome Medical History Non-pressure chronic ulcer o [...] Right great toe amputation 03/2022 Surgical History [facility]-Left great toe amputation, right first partial ray amputation, second toe amputation 08/05/2022 Hospitalization History [facility] Hospitalization History Surgeries Hospitalization History [facility]-Diabetic foot ulcer, Cellulitis, LYDIA, Osteomyelitis, Sepsis 08/02-08/13/2022 Goals Section No Information Health Concerns No Information MEDICAL EQUIPMENT No Information MENTAL STATUS No Information FUNCTIONAL STATUS No Information ASSESSMENTS Encounter Date Diagnosis Assessment Notes Treatment Notes Treatm ent Clinical Notes Nov, Subcutaneous nodule of left upper extrem ity (ICD-10 - R22.32) 16 Mar, 2021 Chest wall pain (ICD-10 - R07.89) Nov, Moderate episode of recurren t major depressive disorder (ICD-10 - F33.1) Nov, Tingling of right upper extremity (ICD-1 0 - R20.2) PLAN OF TREATMENT Medication Medication Name Sig Start Date Stop Date metFORMIN HCl 500 MG TAKE ONE (1) TABLET BY MOUTH IN THE MORNING AND TWO (2) TABLETS IN THE EVENING Levemir FlexTouch 100 unit/ml INJECT 10 UNITS SUBCUTAN EOUSLY (UNDER THE SKIN) TWICE DAILY for 30 days Insurance Providers Payer Name Payer Address Payer Phone Insured Name Patient Relati onship to Insured Coverage Start Date Coverage End Date Subscriber Number Group Nu mber Hum[employer] Medicare HMO [place] Plan [address] [address] [facility] [phone] Shanique Yeager Self - patient is the insured 2021 [id number] MED[place]ID OF [place] [address] [facility] [address] Cristian Yeager Self - patient is the insured 2022 [id number] NGS MEDICARE Part A [address] [place] [phone] Shanique Yeager Self - patient is the insured 2008 [id number] Medicaid of [place] Dental [address] [facility] [address] Shanique Yeager Self - patient is the insured [id number]
--- OUTSIDE RECORDS SUMMARY | 2022-12-20 06:45 | XMS REPORT | Clinical Summary ---
Author Author [facility] Organization [facility] Address Unknown Phone Unavailable Care Team Providers Care Campus Ambassador Name Role Phone Aden Fowler MD PCP Tong Schulte MD Unavailable Unavailable Source Comments Some departments are not documenting in the electronic medical record. If you d o not see the information that you expected, contact Release of Information in [facility] [employer] Information Management department at [phone] for further assistan ce in locating additional records.[facility] Allergies No known active allergies Medications End Date Status Medication Sig Dispensed [...] Problem Noted Date S/P IVC filter 11/03/2015 Surgical History Surgery Date Site/Laterality Comments HERNIA REPAIR x3 HX TONSIL AND ADENOIDECTOMY BLADDER SUSPENSION FOOT SURGERY x2 SURGERY inferior vena cava filter CARPAL TUNNEL RELEASE Medical History Medical History Date Comments History of degenerative disc disease Scoliosis Arthritis Hypertension Hypothyroidism PTSD (post-traumatic stress disorder) DM (diabetes mellitus) (HCC) Guillain Carrion syndrome (HCC) Social History Date Tobacco Use Types Packs/Day Years Used Smoking Tobacco: Light Smoker Comments Alcohol Use Standard Drinks/Week Not Asked 0 (1 standard drink = 0.6 o z pure alcohol) Sex Assigned at Date Recorded Not on file Obstetrics History Last Filed Vital Signs Reading Time Taken Comments Vital Sign 119/84 11/02/2015 1:12 PM FACETOR Blood Pressure 90 11/02/2015 1:12 PM FACETOR Pulse 36.8 C (98.2 F) 11/02/2015 1:11 PM FACETOR Temperature 18 11/02/2015 1:11 PM FACETOR Respiratory Rate - - Oxygen Saturation - - Inhaled Oxygen Concentration 87 kg (191 lb 12.8 oz) 11/02/2015 1:11 PM FACETOR Weight 152.4 cm (5') 11/02/2015 1:11 PM FACETOR Height 37.46 11/02/2015 1:11 PM FACETOR Body Mass Index Plan of Treatment Health Maintenance Due Date Last Done Comments COVID-19 VACCINE (#1) 1965 HIV SCREENING 1980 DTAP/TDAP VACCINES (1 - 1983 Tdap) HEPATITIS C SCREENING 1983 PHYSICAL (COMPREHENSIVE) 1983 EXAM CERVICAL CANCER SCREENING 1986 BREAST CANCER SCREENING 2005 COLORECTAL CANCER 2010 SCREENING SHINGLES RECOMBINANT 2015 VACCINE (1 of 2) INFLUENZA VACCINE (#1) 2022 DEPRESSION SCREENING 09/30/2022 Results Not on filefrom Last 3 Months Care Teams Start Date End Date Campus Ambassador Relationship Specialty 08/20/11 Aden Fowler MD PCP - General [address] [facility] [address] [place] [address] 11/02/15 Tong Schulte MD Vascular Forwarding Address Surgery Unknown
[2022-12-20] MEDS ORDERED: ONDANSETRON 4 MG/2 ML (SDV) Z0FRAN ONE (07:15)
[2022-12-20] MEDS ORDERED: proPOfol 200 MG/20 ML (DIPRIVAN) VIAL IV ONE (07:15)
[2022-12-20] MEDS ORDERED: SEVOFLURANE (ULTANE) 15 ML INHAL SOLN ONE ×2 (07:15→09:36)
[2022-12-20] MEDS ORDERED: LIDOCAINE PF 2% 5 ML (XYLOCAINE) VIAL ONE (07:15)
[2022-12-20] MEDS ORDERED: fentaNYL INJ 100 MCG/2 ML AMP ONE ×4 (07:16→10:41)
[2022-12-20] MEDS ORDERED: MIDAZOLAM 2 MG/2 ML (VERSED) VIAL ONE ×2 (07:17→08:41)
[2022-12-20] MEDS: LACTATED RINGERS 1,000 ML IV PRN ×3 (07:26→10:36)
[2022-12-20] MEDS ORDERED: ceFAZolin INJECTION 2,000 MG ONE (07:30)
[2022-12-20] MEDS ORDERED: NS (IVPB) 50 ML ONE (07:30)
[2022-12-20] MEDS ORDERED: ceFAZolin INJECTION 2,000 MG in NS (IVPB) 50 ML IV ONE (07:30)
--- NOTE | 2022-12-20 08:03 | Progress Note-Pre Operative ---
Pre-Operative Progress Note Date H&P Reviewed: Dec 20, 2022 Time H&P Reviewed: 07:50 History & Physical: H&P Reviewed, Patient Examed, No changes noted Pre-Operative Diagnosis: right foot osteomyelitis LUCILA HORTON DO Dec 20, 2022 08:03
[2022-12-20] MEDS ORDERED: PHENYLEPHRINE 100 MCG/ML 10 ML (ANESTHESIA) SYR ONE ×2 (08:29→09:09)
--- NOTE | 2022-12-20 10:05 | Anesthesia-General Post-Op ---
General Patient Condition Mental Status/LOC: Same as Preop Cardiovascular: Satisfactory Nausea/Vomiting: Absent Respiratory: Satisfactory Pain: Controlled Complications: Absent Post Op Complications Complications None Follow Up Care/Instructions Patient Instructions None needed. Anesthesia/Patient Condition Patient Condition Patient is doing well, no complaints, stable vital signs, no apparent adverse anesthesia problems. No complications reported per nursing. SONDRA RAMSEY CRNA Dec 20, 2022 10:05
[2022-12-20] MEDS ORDERED: morphine INJ 10 MG/ML 1ML (SYR OR VIAL) ONE (10:08)
[2022-12-20] MEDS ORDERED: MEPERIDINE (DEMEROL) INJ 50 MG/ML ONE (10:11)
--- NOTE | 2022-12-20 10:14 | Progress Note-Post Operative ---
Post-Operative Progess Note Surgeon (s)/Rug Backing Stenciler (s) Surgeon LUCILA HORTON DO Rug Backing Stenciler: Hollis Orta Pre-Operative Diagnosis right foot osteomyelitis Post-Operative Diagnosis same Procedure & Operative Findings Date of Procedure 12/20/22 Procedure Performed/Findings right bka Anesthesia Type general Estimated Blood Loss Estimated blood loss (mL): minimal Specimens/Packing Specimens Removed right lower extremity LUCILA HORTON DO Dec 20, 2022 10:14
[2022-12-20] MEDS ORDERED: ONDANSETRON 4 MG/2 ML (SDV) Z0FRAN IVP PRN ×2 (10:15)
[2022-12-20] MEDS ORDERED: morphine INJ 10 MG/ML 1ML (SYR OR VIAL) IVP ONE (10:15)
[2022-12-20] MEDS ORDERED: MEPERIDINE (DEMEROL) INJ 50 MG/ML IVP ONE (10:15)
[2022-12-20] MEDS ORDERED: fentaNYL INJ 100 MCG/2 ML AMP IVP ONE (10:30)
--- NOTE | 2022-12-20 11:01 | History & Physical ---
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 Currently she is having a lot of pain and urinary retention requiring catheter. I restarted her home meds. Family at bedside. Source: patient, family Date Seen 12/20/22 Time Seen by a Provider: 12:30 Attending Physician Ana Farah MD PCP Admitting Physician: Ridge Hill DO Attending Physician: Ridge Hill DO Referring Physician Date of Admission Dec 20, 2022 at 06:42 Home Medications & Allergies Home Medications Reviewed patient Home Medication Reconciliation performed by pharmacy medication reconciliations ordnance engineering technician and/or nursing. Patients Allergies have been reviewed. Allergies Allergies Coded Allergies No Known Drug Allergies (Unverified12/20/22) Past Lmmgmys-Sbkcqv-Mkptrn Hx Past Med/Social Hx: Reviewed Nursing Past Med/Soc Hx, Reviewed and Corrections made Patient Social History Marrital Status: single Employed/Student: unemployed Alcohol Use: Denies Use Smoking Status: Current Everyday Smoker Former Smoker, Quit: Sep 30, 2017 Type Used: Cigarettes 2nd Hand Smoke Exposure: No Recent Foreign Travel: No Contact w/other who traveled: No Recent Hopitalizations: No Immunizations Up To Date Tetanus Booster (TDap): Less than 5yrs Date of Pneumonia Vaccine: Sep 30, 2012 Seasonal Allergies Seasonal Allergies: No Past Medical History Surgeries: Amputation, Orthopedic, Tonsillectomy Currently Using CPAP: No (SLEEP APNEA IS RESOLVED) Currently Using BIPAP: No Cardiac: High Cholesterol, Hypertension Neurological: Headaches /Migraines, Neuropathy 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: No Sexually Transmitted Disease: No HIV/AIDS: No Female 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 Disorders: Denies Menopausal Gastrointestinal: Gastroesophageal Reflux Musculoskeletal: Amputee, Degenerate Disk Disease, Arthritis, Scoliosis Endocrine: Diabetes, Insulin dep, Hypothyroidsim HEENT: Cataract, Tinnitis Loss of Vision: Denies Hearing Impairment: Hard of Hearing Psychosocial: Anxiety, Depression Skin/Integumentary: Eczema History of Blood Disorders: No Adverse Reaction to Blood Zhong: No Family History Colon cancer requiring screening colonoscopy Heart Disease, Cancer, Diabetes, Psychiatric Problems SOCIAL HISTORY: -SMOKES 1/2-1 PPD -DENIES DRUG USE -DENIES ETOH USE PAST SURGICAL HISTORY: -TONSILLECTOMY AND ADENOIDECTOMY -BLADDER SLING -BILATERAL CARPAL TUNNEL -BILATERAL ELBOW SURGERY -RIGHT SHOULDER SCOPE X 2 -RIGHT ROTATOR CUFF REPAIR -HERNIA SURGERY X 5 -VENA CAVA FILTER PLACEMENT -RIGHT FOOT SURGERY X 2 -RIGHT GREAT TOE AMPUTATION 03/2022. Review of Systems Constitutional: see HPI EENTM: no symptoms reported Respiratory: no symptoms reported Cardiovascular: no symptoms reported Gastrointestinal: no symptoms reported Genitourinary: other (retention) Musculoskeletal: joint pain Skin: no symptoms reported Psychiatric/Neurological: No Symptoms Reported All Other Systems Reviewed Negative Unless Noted: Yes Physical Exam Physical Exam Vital Signs Vital Signs - First Documented 12/20/22 07:00 Temp 36.1 Pulse 90 Resp 20 B/P (MAP) 109/78 (88) Pulse Ox 98 O2 Delivery Room Air Capillary Refill : Height, Weight, BMI Height: 5'0" Weight: 179lbs. 4.0oz. 81.004478vn; 32.59 BMI Method:Stated General Appearance: WD/WN, Anxious, Chronically ill, Obese Eyes: Bilateral Eye Normal Inspection, Bilateral Eye PERRL HEENT: PERRL/EOMI, Normal ENT Inspection, Pharynx Normal Neck: Full Range of Motion, Normal Inspection, Non Tender, Supple, Carotid Bruit Respiratory: Chest Non Tender, Lungs Clear, Normal Breath Sounds, No Accessory Muscle Use, No Respiratory Distress Cardiovascular: Regular Rate, Rhythm, No Edema, No Gallop, No JVD, No Murmur, Normal Peripheral Pulses Gastrointestinal: Normal Bowel Sounds, No Organomegaly, No Pulsatile Mass, Non Tender, Soft Back: Normal Inspection, No CVA Tenderness, No Vertebral Tenderness Extremity: Normal Capillary Refill, Normal Inspection, Normal Range of Motion, Non Tender, No Calf Tenderness, No Pedal Edema, Other (left BKA) Neurologic/Psychiatric: Alert, Oriented x3, No Motor/Sensory Deficits, Normal Mood/Affect Skin: Normal Color, Warm/Dry Lymphatic: No Adenopathy Results Results/Procedures Labs Patient resulted labs reviewed. 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
[2022-12-20] MEDS: LACTATED RINGERS 1,000 ML IV SCH ×2 (12:10→22:02)
[2022-12-20] MEDS: HYDROcodone/APAP 5 MG/325 MG (LORTAB) TAB PO PRN ×2 (13:39→19:39)
--- NOTE | 2022-12-20 14:51 | Physical Therapy Evaluation ---
PT Evaluation-General Medical Diagnosis Admission Date Dec 20, 2022 at 06:42 Medical Diagnosis: recurrent osteomylitis right foot Onset Date: Dec 20, 2022 Therapy Diagnosis Therapy Diagnosis: debility/weaknes Height/Weight Height (Feet): 5 Height (Inches): 0 Weight (Pounds): 179 Weight (Ounces): 4.0 Precautions Precautions/Isolations: Fall Prevention, Standard Precautions Referral Physician: Sergio Reason for Referral: Evaluation/Treatment Medical History Pertinent Medical History: DM, Hypothroidism, Neuropathy, PVD Current History s/p right BKA Reviewed History: Yes Social History Home: Single Level Current Living Status: Other Family Entry Into Home: Ramp Prior Prior Level of Function SCALE: Activities may be completed with or without assistive devices. 6-Lotlzfskoh-xgsodrc completes the activity by him/herself with no assistance from a helper. 5-Set-up or Clean-up Assistance-helper sets up or cleans up; patient completes activity. [place] assists only prior to or following the activity. 4-Supervision or Touching Assistance-helper provides verbal cues and/or touching/steadying and/or contact guard assistance as patient completes activity. Assistance may be provided throughout the activity or intermittently. 3-Partial/Moderate Assistance-helper does LESS THAN HALF the effort. [place] lifts, holds or supports trunk or limbs, but provides less than half the effort. 2-Substantial/Maximal Assistance-helper does MORE THAN HALF the effort. [place] lifts or holds trunk or limbs and provides more than half the effort. 2-Nwunkywcc-hmgzex does ALL the effort. Patient does none of the effort to complete the activity. Or, the assistance of 2 or more helpers is required for the patient to complete the activity. If activity was not attempted, code reason: 7-Patient Refused. 9-Not Applicable-not attempted and the patient did not perform the activity before the current illness, exacerbation or injury. 10-Not Attempted due to Environmental Limitations-(lack of equipment, weather restraints, etc.). 88-Not Attempted due to Medical Conditions or Safety Concerns. Bed Mobility: 6 Transfers (B,C,W/C): 6 Gait: 6 Indoor Mobility (Ambulation): Independent Prior Devices Use: Walker (4WW) PT Evaluation-Current Subjective Patient agrees to PT. Objective Patient Orientation: Normal For Age Attachments: Oxygen, Redman Catheter, IV ROM/Strength ROM Lower Extremities left LE WFL/right knee flexion/extension WFL Strength Lower Extremities right LE NT/left LE 3/5 grossly Integumentary/Posture Integumentary refer to nursing notes Bladder Incontinence: Redman Cath Posture WFL Neuromuscular (Tone, Coordination, Reflexes) grossly intact Sensory Vision: Wears Glasses Hearing: Functional Sensation Right Lower Extremit: Impaired Sensation Left Lower Extremity: Impaired Transfers Sit to Lying (QC): 6 Lying to Sitting/Side of Bed(Q: 6 Sit to Stand (QC): 4 Gait Does the Patient Walk?: No and Walking Goal IS indicated Walk 10 feet (QC): 88 Gait Assistive Device: FWW Balance Sitting Static: Normal Sitting Dynamic: Normal Standing Static: Fair Standing Dynamic: Fair Assessment/Needs Patient will benefit from skilled PT to address functional strength and mobility to improve current LOF to safely return to home with family at maximum LOF. Rehab Potential: Fair PT Intermediate Goals Intermediate Goals PT Cold Strip Feeder Goals Time Frame: Dec 29, 2022 Roll Left & Right (QC): 6 Sit to Lying (QC): 6 Lying-Sitting on Side/Bed(QC): 6 Sit to Stand (QC): 6 Chair/Zec-qk-Babfg Xfer(QC): 6 Toilet Transfer (QC): 6 Walk 10 feet (QC): 6 Walk 50ft with 2 Turns (QC): 6 PT Plan Problem List Problem List: Activity Tolerance, Functional Strength, Balance, Gait, Transfer Treatment/Plan Treatment Plan: Continue Plan of Care Treatment Plan: Education, Functional Activity Noble, Functional Strength, Gait, Safety, Therapeutic Exercise, Transfers Treatment Duration: Dec 29, 2022 Frequency: 6 times per week Estimated Hrs Per Day: .5 hour per day Patient and/or Family Agrees t: Yes Time Time In: 1420 Time Out: 1438 DATE: Dec 20, 2022 Total Billed Treatment Time: 18 Total Billed Treatment 1 visit EVMod 18 min CECELIA MILNER PT Dec 20, 2022 14:51
[2022-12-20] MEDS: morphine INJ 4 MG/ML 1 ML (VIAL/SYRINGE) IVP PRN (15:43)
[2022-12-20] MEDS: ceFAZolin INJECTION 2,000 MG in NS (IVPB) 50 ML IV SCH ×2 (15:45→23:05)
[2022-12-20] MEDS ORDERED: METF-397 PO ×2 (15:59)
[2022-12-20] MEDS ORDERED: FAMO20TA5 PO (15:59)
[2022-12-20] MEDS ORDERED: MULT-1029 PO (15:59)
[2022-12-20] MEDS ORDERED: PANT40TA52 PO (15:59)
[2022-12-20] MEDS ORDERED: MELA10TA20 PO (15:59)
[2022-12-20] MEDS ORDERED: ACETAMINOPHEN 500 MG TAB (TYLENOL) PO PRN (21:00)
[2022-12-20] MEDS: metFORMIN 500 MG (GLUCOPHAGE) TAB PO SCH (21:00)
[2022-12-20] MEDS ORDERED: NON-FORMULARY MEDICATION 1 EA EA (Duloxetine HCl 60 MG) PO SCH (21:00)
[2022-12-20] MEDS: PROMETHAZINE 25 MG (PHENERGAN) TAB PO SCH (22:12)
[2022-12-20] MEDS: AMITRIPTYLINE 25 MG (ELAVIL) TAB PO SCH (22:13)
[2022-12-20] MEDS: DULoxetine 30 MG (CYMBALTA) CAP PO SCH (22:13)
[2022-12-20] MEDS: MELATONIN 10 MG TABLET PO SCH (22:13)
[2022-12-20] MEDS: inSUlin ASPART (NovoLOG) 1 UNIT/0.01 ML (CHARGE PER UNIT) SC SCH (22:14)
--- NOTE | 2022-12-20 23:08 | OPERATIVE REPORT ---
DATE OF SERVICE: 12/20/2022 PREOPERATIVE DIAGNOSIS: Right foot osteomyelitis. PREOPERATIVE DIAGNOSIS: Right foot osteomyelitis. PROCEDURE: Right below-knee amputation. SURGEON: Lucila Hill DO WEAPONS DESIGNER: Hollis Orta to assist in retraction, dissection, and closure. ANESTHESIA: General. ESTIMATED BLOOD LOSS: Minimal. COMPLICATIONS: None. INDICATIONS: The patient is a 57-year-old female who has had recurrent episodes of osteomyelitis of the right foot. We discussed risks and benefits of procedure and the patient wishes to proceed. Consent was signed and in chart. DESCRIPTION OF PROCEDURE: The patient was taken to the operating suite. She was prepped and draped in sterile fashion. Timeout was performed. Below the tibial plateau, the knee was measured for fishmouth incision. A #15 blade scalpel was used to make a fishmouth incision around the circumference of the right lower extremity. Cautery was used to dissect down through the skin, subcutaneous tissues. Muscles were then continually divided. When vascular bundles were encountered, these were dissected out, clamped, proximally and distally transected and then tied off. Skin and subcutaneous tissue and muscles were dissected off the tibia at the level of knee to transect the tibia the bone saw was then used to cut through the tibia. An angled portion was also taken off the anterior aspect. A rasp was then used to file the bone and smooth all edges were rounded. The fibula was also cut approximately 1 cm above the tibial cut. Once the bones were cut, the remainder of the muscles were transected as well removing the specimen. The wound was then irrigated with copious amounts of irrigation. Hemostasis was achieved. The wound was then closed using 0 Prolene in vertical mattress fashion. [place] were used to close the skin as well. The area was washed and dried and sterile bandages were applied. The patient tolerated the procedure well without any complications. She was taken to recovery room in stable condition. Job ID: [id number] DocumentID: [id number] Dictated Date: 12/20/2022 19:12:24 Ichthyologist Date: 12/20/2022 23:07:00 Dictated By: LUCILA HILL DO [facility] SYSTEMCarmencita
[2022-12-21] MEDS: HYDROcodone/APAP 5 MG/325 MG (LORTAB) TAB PO PRN ×3 (03:01→21:04)
[2022-12-21 03:42] VITALS: BP 107/64
[2022-12-21 05:28] LABS: HEMATOCRIT 28 % (35-52); HEMOGLOBIN 8.3 g/dL (11.5-16.0); MEAN CORPUSCULAR HEMOGLOBIN 25 pg (25-34); MEAN CORPUSCULAR HGB CONC 30 g/dL (32-36); MEAN CORPUSCULAR VOLUME 83 fL (80-99); MEAN PLATELET VOLUME 9.4 fL (9.0-12.2); PLATELET COUNT 327 10^3/uL (130-400); WHITE BLOOD COUNT 12.8 10^3/uL (4.3-11.0)
[2022-12-21 05:36] LABS: POTASSIUM 4.1 MMOL/L (3.6-5.0)
[2022-12-21 05:37] LABS: CALCIUM 8.1 MG/DL (8.5-10.1)
[2022-12-21 05:42] LABS: CREATININE SERUM 0.77 MG/DL (0.60-1.30)
[2022-12-21] MEDS: inSUlin ASPART (NovoLOG) 1 UNIT/0.01 ML (CHARGE PER UNIT) SC SCH ×4 (05:45→20:16)
[2022-12-21] MEDS: LEVOTHYROXINE 50 MCG (LEVOTHROID) TAB PO SCH (05:51)
[2022-12-21] MEDS: MULTIVIT W/MINERALS TAB (THERAGRAN M) PO SCH (05:51)
[2022-12-21] MEDS: PANTOPRAZOLE 40 MG (PROTONIX) TAB PO SCH (05:51)
--- NOTE | 2022-12-21 06:23 | Progress Note ---
Subjective Date Seen by a Provider: Dec 21, 2022 Time Seen by a Provider: 11:00 Subjective/Events-last exam Improved pain Catheter will be DC Sugars reviewed Home meds restarted ARU referral Review of Systems General: Fatigue, Malaise Musculoskeletal: leg pain Objective Exam Last Set of Vital Signs Vital Signs Date Time Temp Pulse Resp B/P (MAP) Pulse Ox O2 Delivery O2 Flow Rate FiO2 12/21/22 03:42 37.1 83 16 107/64 (78) 94 Room Air 12/20/22 11:00 2.00 Capillary Refill : I&O Intake and Output 12/21/22 00:00 Intake Total 2790 ml Output Total 1150 ml Balance 1640 ml Intake Oral 690 ml IV Total 2100 ml Output Urine Total 1150 ml Daily Weight Change No General: Alert, Oriented X3, Cooperative, No Acute Distress Lungs: Clear to Auscultation, Normal Air Movement Heart: Regular Rate Psych/Mental Status: Mental Status NL Results Lab Laboratory Tests 12/20/22 07:15: Glucometer 166H 12/20/22 11:32: Glucometer 214H 12/20/22 15:41: Glucometer 198H 12/20/22 20:09: Glucometer 214H 12/21/22 05:20: White Blood Count 12.8H, Red Blood Count 3.33L, Hemoglobin 8.3L, Hematocrit 28L, Mean Corpuscular Volume 83, Mean Corpuscular Hemoglobin 25, Mean Corpuscular Hemoglobin Concent 30L, Red Cell Distribution Width 17.8H, Platelet Count 327, Mean Platelet Volume 9.4, Sodium Level 137, Potassium Level 4.1, Chloride Level 104, Carbon Dioxide Level 23, Anion Gap 10, Blood Urea Nitrogen 9, Creatinine 0.77, Estimat Glomerular Filtration Rate 90, BUN/Creatinine Ratio 12, Glucose Level 155H, Calcium Level 8.1L Assessment/Plan Assessment/Plan Assess & Plan/Chief Complaint Assessment: 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
--- NOTE | 2022-12-21 06:50 | Progress Note - Surgery ---
HENRIK THIBODEAUX 12/21/22 0650: Subjective Date Seen by a Provider: Dec 21, 2022 Time Seen by a Provider: 06:43 Subjective/Events-last exam Shanique Yeager was seen at bedside this morning resting comfortably. POD 1 R BKA. Wound is covered with dressing that was placed in OR. No blood or purulent fluid noted around or through dressing, will take down with Dr Horton present when appropriate. When asked to rank her pain she reports "20/10" pain at surgical site. She is receiving morphine and lortab, reports she feels better after these doses but they wear off quickly. Reports she was able to sleep some overnight. Catheter in place, patient reports she was unable relax enough to urinate on her own. Tolerating diet w no N/V. She also reports R sided posterior neck pain that is burning. This is a chronic issue that feels worse after surgery due to her being uncomfortable in bed. Review of Systems General: No Chills, No Night Sweats HEENT: No Head Aches, No Visual Changes Pulmonary: No Dyspnea, No Cough Cardiovascular: No: Chest Pain, Palpitations Gastrointestinal: No: Nausea, Vomiting, Abdominal Pain Genitourinary: No Dysuria, No Hematuria Musculoskeletal: neck pain, leg pain Neurological: No: Change in speech, Confusion Objective Exam Vital Signs Date Time Temp Pulse Resp B/P (MAP) Pulse Ox O2 Delivery O2 Flow Rate FiO2 12/21/22 03:42 37.1 83 16 107/64 (78) 94 Room Air 12/20/22 23:38 37.7 87 16 107/61 (76) 97 Room Air 12/20/22 21:00 Room Air 12/20/22 19:51 37.2 98 18 127/58 (81) 97 Room Air 12/20/22 15:59 36.6 97 18 116/57 (76) 97 Room Air 12/20/22 11:00 37.3 28 95/51 (66) 100 Nasal Cannula 2.00 12/20/22 11:00 Nasal Cannula 2.00 12/20/22 11:00 37.0 100 19 98/57 (71) 98 Nasal Cannula 2.00 12/20/22 10:50 20 95/54 (68) 100 OxyMask 3.00 12/20/22 10:45 OxyMask 3.00 12/20/22 10:40 25 96/48 (64) 95 OxyMask 3.00 12/20/22 10:30 OxyMask 6.00 12/20/22 10:30 28 114/80 (91) 98 OxyMask 6.00 12/20/22 10:20 24 91/61 (71) 97 OxyMask 8 12/20/22 10:15 OxyMask 8 12/20/22 10:10 28 96/58 (71) 97 OxyMask 8 12/20/22 09:59 36.9 16 89/39 (56) 98 OxyMask 8 12/20/22 09:59 OxyMask 8 12/20/22 07:30 98 Room Air 12/20/22 07:00 36.1 90 20 109/78 (88) 98 Room Air I & O 12/21/22 07:00 Intake Total 3490 ml Output Total 2850 ml Balance 640 ml Capillary Refill : General Appearance: No Apparent Distress, WD/WN HEENT: PERRL/EOMI, Moist Mucous Membranes Neck: Full Range of Motion, Non Tender, Supple Respiratory: Chest Non Tender, Lungs Clear, No Accessory Muscle Use Cardiovascular: Regular Rate, Rhythm, Normal Peripheral Pulses, Other (systolic murmur present at aortic post) Gastrointestinal: non tender, soft Extremity: Other (R BKA. Left foot has digits missing also. No swelling noted above R BKA site.) Neurologic/Psychiatric: Alert, Oriented x3, No Motor/Sensory Deficits, Normal Mood/Affect Skin: Normal Color, Warm/Dry Lymphatic: No Adenopathy Results Lab Laboratory Tests 12/20/22 07:15: Glucometer 166H 12/20/22 11:32: Glucometer 214H 12/20/22 15:41: Glucometer 198H 12/20/22 20:09: Glucometer 214H 12/21/22 05:20: White Blood Count 12.8H, Red Blood Count 3.33L, Hemoglobin 8.3L, Hematocrit 28L, Mean Corpuscular Volume 83, Mean Corpuscular Hemoglobin 25, Mean Corpuscular Hemoglobin Concent 30L, Red Cell Distribution Width 17.8H, Platelet Count 327, M michael Platelet Volume 9.4, Sodium Level 137, Potassium Level 4.1, Chloride Level 104, Carbon Dioxide Level 23, Anion Gap 10, Blood Urea Nitrogen 9, Creatinine 0.77, Estimat Glomerular Filtration Rate 90, BUN/Creatinine Ratio 12, Glucose Level 155H, Calcium Level 8.1L Assessment/Plan Assessment/Plan Assessment/Plan Osteomyelitis of R foot POD 1 R BKA surgical site pain Diabetes mellitus- insulin dependent chronic neck pain Continue pain control w morphine and lortab Will take down dressing later with Dr Horton present Monitor for signs of infection. WBC slightly elevated today at 12.8, received cefazolin Home meds restarted by internal medicine Continue glucose control with SSI LUCILA HORTON DO 12/21/22 1145: Subjective Subjective/Events-last exam Patient doing okay. States pain is 20/10 but pain is controlled. Reports unable to urinate on bed miller. Redman was placed yesterday. Denies n/v fever sweats chills shortness of breath or chest pain. Objective Exam General Appearance: No Apparent Distress, WD/WN HEENT: PERRL/EOMI, Normal ENT Inspection Neck: Non Tender, Supple Respiratory: Chest Non Tender, No Accessory Muscle Use, No Respiratory Distress Cardiovascular: Regular Rate, Rhythm, No JVD Gastrointestinal: non tender, soft Extremity: Other (R BKA. Left foot has digits missing also. No swelling noted above R BKA site. No signs of infection.) Neurologic/Psychiatric: Alert, Oriented x3, No Motor/Sensory Deficits, Normal Mood/Affect Skin: Normal Color, Warm/Dry Lymphatic: No Adenopathy Assessment/Plan Assessment/Plan Assessment/Plan Osteomyelitis of R foot POD 1 R BKA surgical site pain Diabetes mellitus- insulin dependent chronic neck pain Continue pain control w morphine and lortab Home meds restarted by internal medicine Continue glucose control with SSI Dc Redman and try, if retention will replace. Consult prosthetics PT Supervisory-Addendum Brief Verification & Attestation Participated in pt care: history, MDM, physical Personally performed: exam, history, MDM, supervision of care Care discussed with: Medical Student Procedures: n/a Results interpretation: Verified all documentation Verification and Attestation of Medical Student E/M Service A medical student performed and documented this service in my presence. I reviewed and verified all information documented by the medical student and made modifications to such information, when appropriate. I personally performed the physical exam and medical decision making. Lucila Horton, Dec 21, 2022,11:56 HENRIK THIBODEAUX Dec 21, 2022 06:50 LUCILA HORTON DO Dec 21, 2022 11:45
[2022-12-21 07:24] LABS: ALBUMIN 2.8 GM/DL (3.2-4.5); BILIRUBIN,DIRECT 0.1 MG/DL (0.0-0.3); BILIRUBIN,INDIRECT 0.1 MG/DL; BILIRUBIN,TOTAL 0.2 MG/DL (0.1-1.0); TOTAL PROTEIN 5.3 GM/DL (6.4-8.2)
[2022-12-21 07:50] VITALS: BP 104/53
[2022-12-21] MEDS: ARTIFICAL TEARS 0.4 ML UNIT DOSE (REFRESH PLUS) OU SCH ×2 (07:58→21:03)
[2022-12-21] MEDS: metFORMIN 500 MG (GLUCOPHAGE) TAB PO SCH ×2 (07:59→21:03)
[2022-12-21] MEDS: LOSARTAN 100 MG (COZAAR) TABLET PO SCH (07:59)
[2022-12-21] MEDS: FAMOTIDINE 20 MG (PEPCID) TABLET PO SCH (07:59)
[2022-12-21] MEDS: FERROUS SULF 325 MG (IRON) TAB PO SCH (07:59)
[2022-12-21] MEDS: morphine INJ 4 MG/ML 1 ML (VIAL/SYRINGE) IVP PRN (08:00)
[2022-12-21] MEDS: LACTATED RINGERS 1,000 ML IV SCH (08:05)
--- NOTE | 2022-12-21 10:02 | Physical Therapy Daily Note ---
PT Daily Note-Current Subjective Patient agrees to PT. Pain Section J - Health Conditions 1. Rarely or not at all 2. Occasionally 3. Frequently 4. Almost constantly 8. Unable to answer Pain Effect on Sleep: 3 Pain Interference with Therapy: 1 Pain Interference w/Day-to-Day: 1 Mental Status Patient Orientation: Normal For Age Attachments: Redman Catheter, IV Transfers SCALE: Activities may be completed with or without assistive devices. 1-Zzzbhaswpg-yudktwk completes the activity by him/herself with no assistance from a helper. 5-Set-up or Clean-up Assistance-helper sets up or cleans up; patient completes activity. [place] assists only prior to or following the activity. 4-Supervision or Touching Assistance-helper provides verbal cues and/or touching/steadying and/or contact guard assistance as patient completes activity. Assistance may be provided throughout the activity or intermittently. 3-Partial/Moderate Assistance-helper does LESS THAN HALF the effort. [place] lifts, holds or supports trunk or limbs, but provides less than half the effort. 2-Substantial/Maximal Assistance-helper does MORE THAN HALF the effort. [place] lifts or holds trunk or limbs and provides more than half the effort. 6-Eipyywygj-qawdfr does ALL the effort. Patient does none of the effort to complete the activity. Or, the assistance of 2 or more helpers is required for the patient to complete the activity. If activity was not attempted, code reason: 7-Patient Refused. 9-Not Applicable-not attempted and the patient did not perform the activity before the current illness, exacerbation or injury. 10-Not Attempted due to Environmental Limitations-(lack of equipment, weather restraints, etc.). 88-Not Attempted due to Medical Conditions or Safety Concerns. Lying to Sitting/Side of Bed(Q: 6 Sit to Stand (QC): 4 Chair/Lxk-oc-Bwurm Xfer(QC): 4 Gait Training Distance: 3 hops Gait Assistive Device: FWW CGA for safety, minimal left foot clearance Exercises Supine Ex: Quad Set, Heel Slides, Straight leg raise, Hip abd/add Supine Reps: 15 (bilateral LE) Seated Therapy Exercises: Long arc quads Seated Reps: 15 Assessment Patient tolerated treatment well and is up in recliner with needs met. Patient progressing with treatment plan. PT Short Term Goals Short Term Goals Time Frame: Dec 21, 2022 PT Dye Reel Operator Helper Goals Long-Term Goals PT Dye Reel Operator Helper Goals Time Frame: Dec 29, 2022 Roll Left & Right (QC): 6 Sit to Lying (QC): 6 Lying-Sitting on Side/Bed(QC): 6 Sit to Stand (QC): 6 Chair/Enx-kz-Eilyh Xfer(QC): 6 Toilet Transfer (QC): 6 Walk 10 feet (QC): 6 Walk 50ft with 2 Turns (QC): 6 PT Plan Treatment/Plan Treatment Plan: Continue Plan of Care Treatment Plan: Education, Functional Activity Noble, Functional Strength, Gait, Safety, Therapeutic Exercise, Transfers Treatment Duration: Dec 29, 2022 Frequency: 6 times per week Estimated Hrs Per Day: .5 hour per day Patient and/or Family Agrees t: Yes Time Time In: 926 Time Out: 950 DATE: Dec 21, 2022 Total Billed Treatment Time: 24 Total Billed Treatment 1 visit EX x 2 24 min CECELIA MILNER PT Dec 21, 2022 10:02
--- NOTE | 2022-12-21 11:25 | Occupational Therapy Eval ---
OT Evaluation-General/PLF Medical Diagnosis Admission Date Dec 20, 2022 at 06:42 Medical Diagnosis: recurrent osteomylitis right foot Onset Date: Dec 20, 2022 Therapy Diagnosis Therapy Diagnosis: decr self care, decr funct mobility, decr act tolerance Height/Weight Height (Feet): 5 Height (Inches): 0 Weight (Pounds): 179 Weight (Ounces): 4.0 Precautions Precautions/Isolations: Fall Prevention, Standard Precautions Referral Physician: Sergio Referral Reason: Evaluation/Treatment Medical History Pertinent Medical History: Arthritis, DM, GERD, HTN, Hypothroidism, Neuropathy, PVD Additional Medical History Guillian [place] Syndrome in 2004, Headaches, migraines. DDD, scoliosis. Cataracts, tinnitis. Hard of hearing. Anxiety and depression. Bilat CTS, bilat elbow surgery. R rotator cuff repair. PTSD. Current History Admitted for R BKA done on 12/20/22 secondary to osteomyelitis. Reviewed History: Yes Social History Home: Single Level Current Living Status: Other Family Entry Into Home: [facility] ADL-Prior Level of Function SCALE: Activities may be completed with or without assistive devices. 2-Pwhbybvmlo-iqhurcq completes the activity by him/herself with no assistance from a helper. 5-Set-up or Clean-up Assistance-helper sets up or cleans up; patient completes activity. [place] assists only prior to or following the activity. 4-Supervision or Touching Assistance-helper provides verbal cues and/or touching/steadying and/or contact guard assistance as patient completes activity. Assistance may be provided throughout the activity or intermittently. 3-Partial/Moderate Assistance-helper does LESS THAN HALF the effort. [place] lifts, holds or supports trunk or limbs, but provides less than half the effort. 2-Substantial/Maximal Assistance-helper does MORE THAN HALF the effort. [place] lifts or holds trunk or limbs and provides more than half the effort. 0-Vdertvlbh-hrrukh does ALL the effort. Patient does none of the effort to complete the activity. Or, the assistance of 2 or more helpers is required for the patient to complete the activity. If activity was not attempted, code reason: 7-Patient Refused. 9-Not Applicable-not attempted and the patient did not perform the activity before the current illness, exacerbation or injury. 10-Not Attempted due to Environmental Limitations-(lack of equipment, weather restraints, etc.). 88-Not Attempted due to Medical Conditions or Safety Concerns. ADL PLOF Comments Pt reported that she was able to care for her basic self care needs until recently (ulcer bottom of R foot limited walking). Jomar does all the cooking and cleaning. She still drives although has questions about how she will do this in the future. 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 Self Care: Independent Functional Cognition: Independent OT Current Status Subjective Pt seen in room, up in recliner, agreeable to OT. Pt reported pain at 10/10 but did not describe it or ask for relief. No other pain behaviors observed. She mentioned that she has some pain in R shoulder and thinks she has another rotator cuff tear. Appearance Alert, cooperative Mental Status/Objective Patient Orientation: Person, Place, Time, Situation Attachments: Central Line, Pepper Catheter, Telemetry Current Glasses/Contacts: Yes Hearing Aids: No Dentures/Partials: No (No teeth) Upper Extremity ROM Grossly WFL bilaterally Upper Extremity Coordination Grossly functional but needs visual cues due to neuropathy Upper Extremity Sensation Pt reported numbness in both hands from GBS. She said that she could feel hot/cold but has difficulty identifying objects planed in her hands. Upper Extremity Strength Grossly 4/5 bilat ADL-Treatment ADL-Current Pt reported that she has been able to feed herself and get a drink. She has not yet been up to the bathroom due in part to pepper. She transferred with CGA from bed to recliner with FWW, per pt. Pt was agreeable to do sponge bath but became light headed and said that she felt "strange". Nursing contacted and came to take vitals. Eating (QC): 6 Education OT Patient Education: Purpose of tx/functional activities, Rehab process, Other (resources for driving) Teaching Recipient: Patient Teaching Methods: Discussion Response to Teaching: Verbalize Understanding OT Short Term Goals Short Term Goals Time Frame: Dec 28, 2022 Eatin Oral hygiene: 5 Toileting hygiene: 3 Shower/bathe self: 3 Upper body dressin Lower body dressin Putting on/taking off footwear: 3 OT [facility] Goals Hydroelectric Powerplant Supervisor Goals Time Frame: Jan 04, 2023 Eating (QC): 6 Oral Hygiene (QC): 5 Toileting Hygiene (QC): 5 Shower/Bathe Self (QC): 5 Upper Body Dressing (QC): 5 Lower Body Dressing (QC): 5 On/Off Footwear (QC): 5 Additional Goals: 1-Demonstrate ADL Tasks, 2-Verbalize Understanding, 3- ImproveStrength/Noble 1=Demonstrate adherence to instructed precautions during ADL tasks. 2=Patient will verbalize/demonstrate understanding of assistive devices/modifi cations for ADL. 3=Patient will improve strength/tolerance for activity to enable patient to perform ADL's. OT Education/Plan Problem List/Assessment Assessment: Decreased Activ Tolerance, Dependent Transfers, Impaired Funct Balance, Impaired Self-Care Skills, Restricted Funct UE ROM Pt would benefit from skilled OT to increase her independence in basic self care to allow her to safely return home. Discharge Recommendations Plan/Recommendations: Continue POC Therapy Discharge Recommendati: Post Acute OT Treatment Plan/Plan of Care Treatment,Training & Education: Yes Patient would benefit from OT for education, treatment and training to promote independence in ADL's, mobility, safety and/or upper extremity function for ADL's. Plan of Care: ADL Retraining, Functional Mobility, UE Funct Exercise/Act, UE Neuromus Re-Ed/Coord Treatment Duration: Jan 04, 2023 Frequency: 5 times per week Estimated Hrs Per Day: .5 hour per day Agreement: Yes Rehab Potential: Fair Time Start Time: 09:49 Stop Time: 10:14 DATE: Dec 21, 2022 Total Time Billed (hr/min): 25 Billed Treatment Time visit, evaluation moderate intensity 25 minutes MAISHA FRANKLIN OT Dec 21, 2022 11:25
[2022-12-21 11:37] VITALS: BP 94/60
[2022-12-21 15:47] VITALS: BP 100/52
[2022-12-21 19:03] VITALS: BP 120/57
[2022-12-21] MEDS: AMITRIPTYLINE 25 MG (ELAVIL) TAB PO SCH (21:03)
[2022-12-21] MEDS: MELATONIN 10 MG TABLET PO SCH (21:03)
[2022-12-21] MEDS: DULoxetine 30 MG (CYMBALTA) CAP PO SCH (21:03)
[2022-12-21] MEDS: PROMETHAZINE 25 MG (PHENERGAN) TAB PO SCH (21:04)
[2022-12-22] VITALS (7 sets, daily range): BP systolic 90–128; BP diastolic 56–68
--- NOTE | 2022-12-22 05:31 | Progress Note ---
Subjective Date Seen by a Provider: Dec 22, 2022 Time Seen by a Provider: 11:00 Subjective/Events-last exam Doing really well BM+ Pain controlled Labs reviewed IV iron infusion ordered along with B12 Review of Systems General: Fatigue, Malaise Objective Exam Last Set of Vital Signs Vital Signs Date Time Temp Pulse Resp B/P (MAP) Pulse Ox O2 Delivery O2 Flow Rate FiO2 12/22/22 03:52 36.2 86 18 113/56 (75) 92 Room Air 12/21/22 21:00 2.00 Capillary Refill : I&O Intake and Output 12/21/22 23:59 Intake Total 2535 ml Output Total 3000 ml Balance -465 ml Intake Oral 2485 ml IV Total 50 ml Output Urine Total 3000 ml # Voids 1 General: Alert, Oriented X3, Cooperative, No Acute Distress Lungs: Clear to Auscultation Heart: Regular Rate Psych/Mental Status: Mental Status NL Results Lab Laboratory Tests 12/21/22 06:45: Iron Level 16L, Total Bilirubin 0.2, Direct Bilirubin 0.1, Indirect Bilirubin 0.1, Aspartate Amino Transf (AST/SGOT) 34, Alanine Aminotransferase (ALT/SGPT) 20, Alkaline Phosphatase 72, Total Protein 5.3L, Albumin 2.8L, Vitamin B12 Level 333 12/21/22 11:43: Glucometer 115H 12/21/22 15:56: Glucometer 160H 12/21/22 20:13: Glucometer 164H Microbiology 12/20/22 MRSA Screen - Final, Complete MRSA not isolated Assessment/Plan Assessment/Plan Assess & Plan/Chief Complaint Assessment: 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
[2022-12-22] MEDS: inSUlin ASPART (NovoLOG) 1 UNIT/0.01 ML (CHARGE PER UNIT) SC SCH ×4 (05:45→20:58)
[2022-12-22 05:50] LABS: BASOPHILS # (AUTO) 0.1 10^3/uL (0.0-0.1); BASOPHILS % (AUTO) 1 % (0-10); EOSINOPHILS # (AUTO) 0.8 10^3/uL (0.0-0.3); EOSINOPHILS % (AUTO) 6 % (0-10); HEMATOCRIT 27 % (35-52); LYMPHOCYTES # (AUTO) 2.6 10^3/uL (1.0-4.0); LYMPHOCYTES % (AUTO) 20 % (12-44); MEAN CORPUSCULAR HEMOGLOBIN 25 pg (25-34); MEAN CORPUSCULAR HGB CONC 30 g/dL (32-36); MEAN CORPUSCULAR VOLUME 84 fL (80-99); MEAN PLATELET VOLUME 9.6 fL (9.0-12.2); MONOCYTES # (AUTO) 1.2 10^3/uL (0.0-1.0); MONOCYTES % (AUTO) 9 % (0-12); NEUTROPHILS # (AUTO) 8.2 10^3/uL (1.8-7.8); NEUTROPHILS % (AUTO) 64 % (42-75); PLATELET COUNT 316 10^3/uL (130-400)
[2022-12-22 06:00] LABS: ALBUMIN 2.9 GM/DL (3.2-4.5)
[2022-12-22 06:01] LABS: POTASSIUM 4.1 MMOL/L (3.6-5.0)
[2022-12-22 06:02] LABS: CALCIUM 8.4 MG/DL (8.5-10.1)
[2022-12-22 06:05] LABS: BILIRUBIN,TOTAL 0.2 MG/DL (0.1-1.0)
[2022-12-22 06:06] LABS: CREATININE SERUM 0.65 MG/DL (0.60-1.30)
[2022-12-22] MEDS: PANTOPRAZOLE 40 MG (PROTONIX) TAB PO SCH (06:21)
[2022-12-22] MEDS: MULTIVIT W/MINERALS TAB (THERAGRAN M) PO SCH (06:21)
[2022-12-22] MEDS: LEVOTHYROXINE 50 MCG (LEVOTHROID) TAB PO SCH (06:21)
[2022-12-22] MEDS: HYDROcodone/APAP 5 MG/325 MG (LORTAB) TAB PO PRN ×3 (06:23→21:03)
--- NOTE | 2022-12-22 08:07 | Progress Note - Surgery ---
HENRIK THIBODEAUX 12/22/22 0807: Subjective Date Seen by a Provider: Dec 22, 2022 Time Seen by a Provider: 08:02 Subjective/Events-last exam Shanique Yeager was seen at bedside this morning resting comfortably. She reports 3/10 pain at surgical site much improved from yesterday. Neck pain improved, slept better overnight than previous night. Catheter out, voiding urine on her own without issue. No BM since admission but is passing gas. Tolerating diet with no N/V. No fever/chills overnight. Hgb is stable but low, looks like a chronic issue based off older records. Review of Systems General: No Chills, No Night Sweats HEENT: No Head Aches, No Visual Changes Pulmonary: No Dyspnea, No Cough Cardiovascular: No: Chest Pain, Palpitations Gastrointestinal: No: Nausea, Vomiting, Abdominal Pain Genitourinary: No Dysuria, No Hematuria Musculoskeletal: leg pain; No: neck pain Neurological: No: Change in speech, Confusion Objective Exam Vital Signs Date Time Temp Pulse Resp B/P (MAP) Pulse Ox O2 Delivery O2 Flow Rate FiO2 12/22/22 07:15 35.5 93 18 126/62 (83) 97 Room Air 12/22/22 03:52 36.2 86 18 113/56 (75) 92 Room Air 12/22/22 00:07 36.9 84 20 128/68 (88) 96 Room Air 12/21/22 21:00 97 Room Air 2.00 12/21/22 19:03 36.5 94 18 120/57 (78) 94 Room Air 12/21/22 15:47 36.5 83 18 100/52 (68) 99 Room Air 12/21/22 12:12 Room Air 0.00 12/21/22 11:37 36.8 88 18 94/60 (71) 95 Room Air 12/21/22 09:00 97 Room Air 2.00 I & O 12/22/22 07:00 Intake Total 2265 ml Output Total 2400 ml Balance -135 ml Capillary Refill : General Appearance: No Apparent Distress, WD/WN HEENT: PERRL/EOMI, Moist Mucous Membranes Neck: Non Tender, Supple Respiratory: Chest Non Tender, Lungs Clear, No Accessory Muscle Use Cardiovascular: Regular Rate, Rhythm, No JVD Gastrointestinal: non tender, soft Extremity: Other (R BKA. Left foot has digits missing also. No swelling noted above R BKA site. No signs of infection.) Neurologic/Psychiatric: Alert, Oriented x3, Normal Mood/Affect Skin: Normal Color, Warm/Dry Lymphatic: No Adenopathy Results Lab Laboratory Tests 12/21/22 11:43: Glucometer 115H 12/21/22 15:56: Glucometer 160H 12/21/22 20:13: Glucometer 164H 12/22/22 05:43: Glucometer 110, White Blood Count 13.0H, Red Blood Count 3.17L, Hemoglobin 8.0L, Hematocrit 27L, Mean Corpuscular Volume 84, Mean Corpuscular Hemoglobin 25, Mean Corpuscular Hemoglobin Concent 30L, Red Cell Distribution Width 18.4H, Platelet Count 316, Mean Platelet Volume 9.6, Immature Granulocyte % (Auto) 1, Neutrophils (%) (Auto) 64, Lymphocytes (%) (Auto) 20, Monocytes (%) (Auto) 9, Eosinophils (%) (Auto) 6, Basophils (%) (Auto) 1, Neutrophils # (Auto) 8.2H, Lymphocytes # (Auto) 2.6, Monocytes # (Auto) 1.2H, Eosinophils # (Auto) 0.8H, Basophils # (Auto) 0.1, Immature Granulocyte # (Auto) 0.1, Sodium Level 139, Potassium Level 4.1, Chloride Level 107, Carbon Dioxide Level 23, Anion Gap 9, Blood Urea Nitrogen 7, Creatinine 0.65, Estimat Glomerular Filtration Rate 103, BUN/Creatinine Ratio 11, Glucose Level 123H, Calcium Level 8.4L, Corrected Calcium 9.3, Total Bilirubin 0.2, Aspartate Amino Transf (AST/SGOT) 31, Alanine Aminotransferase (ALT/SGPT) 18, Alkaline Phosphatase 66, Total Protein 6.0L, Albumin 2.9L Microbiology 12/20/22 MRSA Screen - Final, Complete MRSA not isolated Assessment/Plan Assessment/Plan Assessment/Plan Osteomyelitis of R foot POD 2 R BKA surgical site pain much improved Diabetes mellitus- insulin dependent chronic neck pain Continue pain control. Lortab this morning, no morphine since yesterday morning No signs of surgical site infection at this time, continue to monitor WBC and vi tals Daily dressing changes Home meds restarted by internal medicine Continue glucose control with SSI Redman DCed, voiding without issue Consulted prosthetics who saw patient on 12/21 and will follow up later next week PT LUCILA HORTON DO 12/22/22 1152: Subjective Subjective/Events-last exam Hit her leg couple times last night causing pain, but now under control. Urinating without difficulty. Denies n/v fever sweats chills shortness of breath or chest pain. Objective Exam General Appearance: No Apparent Distress HEENT: PERRL/EOMI, Normal ENT Inspection Neck: Non Tender, Supple Respiratory: Chest Non Tender, No Accessory Muscle Use, No Respiratory Distress Cardiovascular: Regular Rate, Rhythm, No JVD Gastrointestinal: non tender, soft Extremity: Other (R BKA. Left foot has digits missing also. No swelling noted above R BKA site. No signs of infection.) Neurologic/Psychiatric: Alert, Oriented x3 Skin: Normal Color, Warm/Dry Lymphatic: No Adenopathy Assessment/Plan Assessment/Plan Assessment/Plan Osteomyelitis of R foot POD 2 R BKA surgical site pain much improved Diabetes mellitus- insulin dependent chronic neck pain Pain control No signs of surgical site infection at this time, continue to monitor WBC and vitals Daily dressing changes Home meds restarted by internal medicine Continue glucose control with SSI Consulted prosthetics who saw patient on 12/21 and will follow up later next week PT Rashele inpt rehab soon. Supervisory-Addendum Brief Verification & Attestation Participated in pt care: history, MDM, physical Personally performed: exam, history, MDM, supervision of care Care discussed with: Medical Student Procedures: n/a Results interpretation: Verified all documentation Verification and Attestation of Medical Student E/M Service A medical student performed and documented this service in my presence. I reviewed and verified all information documented by the medical student and made modifications to such information, when appropriate. I personally performed the physical exam and medical decision making. Lucila Horton, Dec 22, 2022,11:52 HENRIK THIBODEAUX Dec 22, 2022 08:07 LUCILA HORTON DO Dec 22, 2022 11:52
[2022-12-22] MEDS: FERROUS SULF 325 MG (IRON) TAB PO SCH (10:12)
[2022-12-22] MEDS: FAMOTIDINE 20 MG (PEPCID) TABLET PO SCH (10:12)
[2022-12-22] MEDS: LOSARTAN 100 MG (COZAAR) TABLET PO SCH (10:13)
[2022-12-22] MEDS: metFORMIN 500 MG (GLUCOPHAGE) TAB PO SCH ×2 (10:13→20:06)
[2022-12-22] MEDS: ARTIFICAL TEARS 0.4 ML UNIT DOSE (REFRESH PLUS) OU SCH ×2 (10:13→20:05)
--- NOTE | 2022-12-22 11:17 | Physical Therapy Daily Note ---
PT Daily Note-Current Subjective Patient lying supine in bed upon PT arrival, agreeable to treatment. Rates pain at 0/10. Pain Section J - Health Conditions 1. Rarely or not at all 2. Occasionally 3. Frequently 4. Almost constantly 8. Unable to answer Pain Effect on Sleep: 3 Pain Interference with Therapy: 1 Pain Interference w/Day-to-Day: 1 Mental Status Patient Orientation: Person, Place, Time, Situation Transfers SCALE: Activities may be completed with or without assistive devices. 8-Xbhghjvhdb-tohuxdq completes the activity by him/herself with no assistance from a helper. 5-Set-up or Clean-up Assistance-helper sets up or cleans up; patient completes activity. [place] assists only prior to or following the activity. 4-Supervision or Touching Assistance-helper provides verbal cues and/or touching/steadying and/or contact guard assistance as patient completes activity. Assistance may be provided throughout the activity or intermittently. 3-Partial/Moderate Assistance-helper does LESS THAN HALF the effort. [place] lifts, holds or supports trunk or limbs, but provides less than half the effort. 2-Substantial/Maximal Assistance-helper does MORE THAN HALF the effort. [place] lifts or holds trunk or limbs and provides more than half the effort. 4-Latrgkpsn-bdpdwv does ALL the effort. Patient does none of the effort to complete the activity. Or, the assistance of 2 or more helpers is required for the patient to complete the activity. If activity was not attempted, code reason: 7-Patient Refused. 9-Not Applicable-not attempted and the patient did not perform the activity before the current illness, exacerbation or injury. 10-Not Attempted due to Environmental Limitations-(lack of equipment, weather restraints, etc.). 88-Not Attempted due to Medical Conditions or Safety Concerns. Roll Left & Right (QC): 6 Sit to Lying (QC): 6 Lying to Sitting/Side of Bed(Q: 6 Sit to Stand (QC): 4 Chair/Vcg-vr-Iwqvf Xfer(QC): 4 Toilet Transfer (QC): 4 Gait Training Does the Patient Walk?: Yes Distance: 15 Walk 10 feet (QC): 4 Gait Assistive Device: FWW Assessment Current Status: Fair Progress Patient tolerated treatment well. She ambulates 15 feet with FWW, with CGA and verbal cues for FWW placement. Patient ambulates with fair overall balance, but tends not to see obstacles well. Patient in chair post treatment with all needs met, nursing notified, call light in reach. PT Short Term Goals Short Term Goals Time Frame: Dec 21, 2022 PT Halfway Goals Negative Checker Goals PT Negative Checker Goals Time Frame: Dec 29, 2022 Roll Left & Right (QC): 6 Sit to Lying (QC): 6 Lying-Sitting on Side/Bed(QC): 6 Sit to Stand (QC): 6 Chair/Frm-xs-Mhesl Xfer(QC): 6 Toilet Transfer (QC): 6 Walk 10 feet (QC): 6 Walk 50ft with 2 Turns (QC): 6 PT Plan Treatment/Plan Treatment Plan: Continue Plan of Care Treatment Plan: Education, Functional Activity Noble, Functional Strength, Gait, Safety, Therapeutic Exercise, Transfers Treatment Duration: Dec 29, 2022 Frequency: 6 times per week Estimated Hrs Per Day: .5 hour per day Patient and/or Family Agrees t: Yes Safety Risks/Education Patient Education: Gait Training, Transfer Techniques Teaching Recipient: Patient Teaching Methods: Demonstration, Discussion Response to Teaching: Verbalize Understanding, Return Demonstration Time Time In: 955 Time Out: 1010 DATE: Dec 22, 2022 Total Billed Treatment Time: 15 Total Billed Treatment Visit, GINGER Brand PT Dec 22, 2022 11:17
[2022-12-22] MEDS ORDERED: CYANOCOBALAMIN INJ 1000 MCG/ML IM NR (11:45)
[2022-12-22] MEDS: IRON SUCROSE 200 MG/10 ML (VENOFER) VIAL IV SCH (12:07)
[2022-12-22] MEDS: AMITRIPTYLINE 25 MG (ELAVIL) TAB PO SCH (20:05)
[2022-12-22] MEDS: MELATONIN 10 MG TABLET PO SCH (20:05)
[2022-12-22] MEDS: DULoxetine 30 MG (CYMBALTA) CAP PO SCH (20:06)
[2022-12-22] MEDS: PROMETHAZINE 25 MG (PHENERGAN) TAB PO SCH (20:06)
[2022-12-23] MEDS: HYDROcodone/APAP 5 MG/325 MG (LORTAB) TAB PO PRN ×5 (03:21→21:39)
[2022-12-23 03:28] VITALS: BP 121/56
--- NOTE | 2022-12-23 05:37 | Progress Note ---
Subjective Date Seen by a Provider: Dec 23, 2022 Time Seen by a Provider: 08:30 Subjective/Events-last exam Doing well Ready for ARU once insurance approves No pain Neck discomfort is acute on chronic No issues otherwise Review of Systems General: Fatigue, Malaise Musculoskeletal: neck pain Objective Exam Last Set of Vital Signs Vital Signs Date Time Temp Pulse Resp B/P (MAP) Pulse Ox O2 Delivery O2 Flow Rate FiO2 12/23/22 03:28 36.4 73 14 121/56 (77) 99 Room Air 12/21/22 21:00 2.00 Capillary Refill : I&O Intake and Output 12/22/22 23:59 Intake Total 1510 ml Output Total 2650 ml Balance -1140 ml Intake Oral 1510 ml Output Urine Total 2650 ml # Bowel Movements 1 General: Alert, Oriented X3, Cooperative, No Acute Distress Lungs: Clear to Auscultation, Normal Air Movement Heart: Regular Rate, Normal S1, Normal S2, No Murmurs Psych/Mental Status: Mental Status NL, Mood NL Results Lab Laboratory Tests 12/22/22 05:43: White Blood Count 13.0H, Red Blood Count 3.17L, Hemoglobin 8.0L, Hematocrit 27L, Mean Corpuscular Volume 84, Mean Corpuscular Hemoglobin 25, Mean Corpuscular Hemoglobin Concent 30L, Red Cell Distribution Width 18.4H, Platelet Count 316, Mean Platelet Volume 9.6, Immature Granulocyte % (Auto) 1, Neutrophils (%) (Auto) 64, Lymphocytes (%) (Auto) 20, Monocytes (%) (Auto) 9, Eosinophils (%) (Auto) 6, Basophils (%) (Auto) 1, Neutrophils # (Auto) 8.2H, Lymphocytes # (Au to) 2.6, Monocytes # (Auto) 1.2H, Eosinophils # (Auto) 0.8H, Basophils # (Auto) 0.1, Immature Granulocyte # (Auto) 0.1, Sodium Level 139, Potassium Level 4.1, Chloride Level 107, Carbon Dioxide Level 23, Anion Gap 9, Blood Urea Nitrogen 7, Creatinine 0.65, Estimat Glomerular Filtration Rate 103, BUN/Creatinine Ratio 11, Glucose Level 123H, Glucometer 110, Calcium Level 8.4L, Corrected Calcium 9.3, Total Bilirubin 0.2, Aspartate Amino Transf (AST/SGOT) 31, Alanine Aminotransferase (ALT/SGPT) 18, Alkaline Phosphatase 66, Total Protein 6.0L, Albumin 2.9L 12/22/22 11:01: Glucometer 126H 12/22/22 15:54: Glucometer 133H 12/22/22 20:49: Glucometer 200H 12/23/22 05:03: Microbiology 12/20/22 MRSA Screen - Final, Complete MRSA not isolated Assessment/Plan Assessment/Plan Assess & Plan/Chief Complaint Assessment: 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
[2022-12-23 05:39] LABS: BASOPHILS # (AUTO) 0.1 10^3/uL (0.0-0.1); BASOPHILS % (AUTO) 1 % (0-10); EOSINOPHILS # (AUTO) 0.8 10^3/uL (0.0-0.3); EOSINOPHILS % (AUTO) 7 % (0-10); HEMATOCRIT 27 % (35-52); HEMOGLOBIN 8.1 g/dL (11.5-16.0); LYMPHOCYTES # (AUTO) 1.9 10^3/uL (1.0-4.0); LYMPHOCYTES % (AUTO) 19 % (12-44); MEAN CORPUSCULAR HEMOGLOBIN 25 pg (25-34); MEAN CORPUSCULAR HGB CONC 30 g/dL (32-36); MEAN CORPUSCULAR VOLUME 84 fL (80-99); MEAN PLATELET VOLUME 9.7 fL (9.0-12.2); MONOCYTES # (AUTO) 0.8 10^3/uL (0.0-1.0); MONOCYTES % (AUTO) 8 % (0-12); NEUTROPHILS # (AUTO) 6.7 10^3/uL (1.8-7.8); NEUTROPHILS % (AUTO) 65 % (42-75); PLATELET COUNT 336 10^3/uL (130-400); WHITE BLOOD COUNT 10.3 10^3/uL (4.3-11.0)
[2022-12-23 05:48] LABS: CALCIUM 8.7 MG/DL (8.5-10.1)
[2022-12-23 05:50] LABS: TOTAL PROTEIN 6.4 GM/DL (6.4-8.2)
[2022-12-23 05:51] LABS: BILIRUBIN,TOTAL 0.2 MG/DL (0.1-1.0)
[2022-12-23 05:53] LABS: CREATININE SERUM 0.64 MG/DL (0.60-1.30)
[2022-12-23] MEDS: inSUlin ASPART (NovoLOG) 1 UNIT/0.01 ML (CHARGE PER UNIT) SC SCH ×5 (06:19→21:39)
[2022-12-23 07:33] VITALS: BP 132/63
--- NOTE | 2022-12-23 07:38 | Progress Note - Surgery ---
Subjective Date Seen by a Provider: Dec 23, 2022 Time Seen by a Provider: 07:36 Subjective/Events-last exam Pain controlled. using flosser. Hit leg, but doing okay. Denies n/v fever sweats chills shortness of breath or chest pain. Objective Exam Vital Signs Date Time Temp Pulse Resp B/P (MAP) Pulse Ox O2 Delivery O2 Flow Rate FiO2 12/23/22 07:33 36.0 74 20 132/63 (86) 97 Room Air 12/23/22 03:28 36.4 73 14 121/56 (77) 99 Room Air 12/22/22 23:15 36.9 73 12 90/61 (71) 95 Room Air 12/22/22 20:00 Room Air 12/22/22 19:45 36.7 77 16 117/57 (77) 96 Room Air 12/22/22 16:00 36.6 77 16 117/59 (78) 100 Room Air 12/22/22 11:49 36.2 78 18 122/57 (78) 97 Room Air 12/22/22 09:00 Room Air I & O 12/23/22 07:00 Intake Total 1330 ml Output Total 1550 ml Balance -220 ml Capillary Refill : General Appearance: No Apparent Distress HEENT: PERRL/EOMI, Normal ENT Inspection Neck: Non Tender, Supple Respiratory: Chest Non Tender, No Accessory Muscle Use, No Respiratory Distress Cardiovascular: Regular Rate, Rhythm, No JVD Gastrointestinal: non tender, soft Extremity: Other (R BKA. Left foot has digits missing also. No swelling noted above R BKA site. No signs of infection.) Neurologic/Psychiatric: Alert, Oriented x3 Skin: Normal Color, Warm/Dry Lymphatic: No Adenopathy Results Lab Laboratory Tests 12/22/22 11:01: Glucometer 126H 12/22/22 15:54: Glucometer 133H 12/22/22 20:49: Glucometer 200H 12/23/22 05:03: White Blood Count 10.3, Red Blood Count 3.27L, Hemoglobin 8.1L, Hematocrit 27L, Mean Corpuscular Volume 84, Mean Corpuscular Hemoglobin 25, Mean Corpuscular Hemoglobin Concent 30L, Red Cell Distribution Width 18.0H, Platelet Count 336, Mean Platelet Volume 9.7, Immature Granulocyte % (Auto) 1, Neutrophils (%) (Auto) 65, Lymphocytes (%) (Auto) 19, Monocytes (%) (Auto) 8, Eosinophils (%) (Auto) 7, Basophils (%) (Auto) 1, Neutrophils # (Auto) 6.7, Lymphocytes # (Auto) 1.9, Monocytes # (Auto) 0.8, Eosinophils # (Auto) 0.8H, Basophils # (Auto) 0.1, Immature Granulocyte # (Auto) 0.1, Sodium Level 140, Potassium Level 4.0, Chloride Level 107, Carbon Dioxide Level 22, Anion Gap 11, Blood Urea Nitrogen 7, Creatinine 0.64, Estimat Glomerular Filtration Rate 103, BUN/Creatinine Ratio 11, Glucose Level 91, Calcium Level 8.7, Corrected Calcium 9.5, Total Bilirubin 0.2, Aspartate Amino Transf (AST/SGOT) 28, Alanine Aminotransferase (ALT/SGPT) 20, Alkaline Phosphatase 74, Total Protein 6.4, Albumin 3.0L 12/23/22 06:16: Glucometer 93 Microbiology 12/20/22 MRSA Screen - Final, Complete MRSA not isolated Assessment/Plan Assessment/Plan Assessment/Plan 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
[2022-12-23] MEDS: PANTOPRAZOLE 40 MG (PROTONIX) TAB PO SCH (08:22)
[2022-12-23] MEDS: FERROUS SULF 325 MG (IRON) TAB PO SCH (08:22)
[2022-12-23] MEDS: FAMOTIDINE 20 MG (PEPCID) TABLET PO SCH (08:22)
[2022-12-23] MEDS: ARTIFICAL TEARS 0.4 ML UNIT DOSE (REFRESH PLUS) OU SCH ×2 (08:23→21:38)
[2022-12-23] MEDS: MULTIVIT W/MINERALS TAB (THERAGRAN M) PO SCH (08:23)
[2022-12-23] MEDS: CYANOCOBALAMIN 1,000 MCG (VITAMIN B-12) TABLET PO SCH (08:23)
[2022-12-23] MEDS: LOSARTAN 100 MG (COZAAR) TABLET PO SCH (08:23)
[2022-12-23] MEDS: LEVOTHYROXINE 50 MCG (LEVOTHROID) TAB PO SCH (08:23)
[2022-12-23] MEDS: metFORMIN 500 MG (GLUCOPHAGE) TAB PO SCH ×2 (08:23→21:39)
[2022-12-23 11:17] VITALS: BP 111/66
[2022-12-23 15:43] VITALS: BP 105/53
[2022-12-23 19:44] VITALS: BP 115/55
[2022-12-23] MEDS ORDERED: ENOXAPARIN 40 MG/0.4 ML (LOVENOX) SYR SC SCH (20:30)
[2022-12-23] MEDS: AMITRIPTYLINE 25 MG (ELAVIL) TAB PO SCH (21:38)
[2022-12-23] MEDS: MELATONIN 10 MG TABLET PO SCH (21:38)
[2022-12-23] MEDS: PROMETHAZINE 25 MG (PHENERGAN) TAB PO SCH (21:39)
[2022-12-23] MEDS: DULoxetine 30 MG (CYMBALTA) CAP PO SCH (21:39)
[2022-12-24 00:21] VITALS: BP 125/63
[2022-12-24 04:00] VITALS: BP 135/75
[2022-12-24 05:10] LABS: BASOPHILS # (AUTO) 0.1 10^3/uL (0.0-0.1); BASOPHILS % (AUTO) 1 % (0-10); EOSINOPHILS # (AUTO) 0.9 10^3/uL (0.0-0.3); EOSINOPHILS % (AUTO) 9 % (0-10); HEMATOCRIT 28 % (35-52); HEMOGLOBIN 8.3 g/dL (11.5-16.0); LYMPHOCYTES # (AUTO) 3.3 10^3/uL (1.0-4.0); LYMPHOCYTES % (AUTO) 33 % (12-44); MEAN CORPUSCULAR HEMOGLOBIN 25 pg (25-34); MEAN CORPUSCULAR HGB CONC 30 g/dL (32-36); MEAN CORPUSCULAR VOLUME 84 fL (80-99); MEAN PLATELET VOLUME 9.8 fL (9.0-12.2); MONOCYTES # (AUTO) 0.9 10^3/uL (0.0-1.0); MONOCYTES % (AUTO) 9 % (0-12); NEUTROPHILS # (AUTO) 4.7 10^3/uL (1.8-7.8); NEUTROPHILS % (AUTO) 47 % (42-75); PLATELET COUNT 386 10^3/uL (130-400); WHITE BLOOD COUNT 9.9 10^3/uL (4.3-11.0)
--- NOTE | 2022-12-24 05:22 | Progress Note ---
Subjective Date Seen by a Provider: Dec 24, 2022 Time Seen by a Provider: 09:30 Objective Exam Last Set of Vital Signs Vital Signs Date Time Temp Pulse Resp B/P (MAP) Pulse Ox O2 Delivery O2 Flow Rate FiO2 12/24/22 00:21 36.6 75 16 125/63 (83) 99 Room Air 12/21/22 21:00 2.00 Capillary Refill : I&O Intake and Output 12/24/22 00:00 Intake Total 2580 ml Balance 2580 ml Intake Oral 2580 ml # Voids 7 # Bowel Movements 1 Results Lab Laboratory Tests 12/23/22 06:16: Glucometer 93 12/23/22 10:48: Glucometer 143H 12/23/22 15:53: Glucometer 138H 12/23/22 20:40: Glucometer 155H 12/24/22 04:45: White Blood Count 9.9, Red Blood Count 3.30L, Hemoglobin 8.3L, Hematocrit 28L, Mean Corpuscular Volume 84, Mean Corpuscular Hemoglobin 25, Mean Corpuscular Hemoglobin Concent 30L, Red Cell Distribution Width 18.2H, Platelet Count 386, Mean Platelet Volume 9.8, Immature Granulocyte % (Auto) 1, Neutrophils (%) (Auto) 47, Lymphocytes (%) (Auto) 33, Monocytes (%) (Auto) 9, Eosinophils (%) (Auto) 9, Basophils (%) (Auto) 1, Neutrophils # (Auto) 4.7, Lymphocytes # (Auto) 3.3, Monocytes # (Auto) 0.9, Eosinophils # (Auto) 0.9H, Basophils # (Auto) 0.1, Immature Granulocyte # (Auto) 0.1 Microbiology 12/20/22 MRSA Screen - Final, Complete MRSA not isolated Assessment/Plan Assessment/Plan Assess & Plan/Chief Complaint Assessment: 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
[2022-12-24 05:27] LABS: ALBUMIN 2.9 GM/DL (3.2-4.5); POTASSIUM 4.3 MMOL/L (3.6-5.0)
[2022-12-24 05:28] LABS: CALCIUM 8.6 MG/DL (8.5-10.1)
[2022-12-24 05:29] LABS: TOTAL PROTEIN 6.1 GM/DL (6.4-8.2)
[2022-12-24 05:31] LABS: BILIRUBIN,TOTAL 0.1 MG/DL (0.1-1.0)
[2022-12-24 05:33] LABS: CREATININE SERUM 0.82 MG/DL (0.60-1.30)
[2022-12-24] MEDS: LEVOTHYROXINE 50 MCG (LEVOTHROID) TAB PO SCH (05:44)
[2022-12-24] MEDS: CYANOCOBALAMIN 1,000 MCG (VITAMIN B-12) TABLET PO SCH (05:44)
[2022-12-24] MEDS: PANTOPRAZOLE 40 MG (PROTONIX) TAB PO SCH (05:44)
[2022-12-24] MEDS: MULTIVIT W/MINERALS TAB (THERAGRAN M) PO SCH (05:44)
--- NOTE | 2022-12-24 06:40 | Progress Note - Surgery ---
Subjective Date Seen by a Provider: Dec 24, 2022 Time Seen by a Provider: 06:27 Subjective/Events-last exam Shanique Yeager was seen at bedside this morning resting comfortably. She reports 0/10 pain at surgical site. No neck pain this morning. Slept well throughout the night. Tolerating diet with no N/V. Voiding urine without issue. Patient reports she is awaiting approval for inpatient rehab. Review of Systems General: No Chills, No Night Sweats HEENT: No Head Aches, No Visual Changes Pulmonary: No Dyspnea, No Cough Cardiovascular: No: Chest Pain, Palpitations Gastrointestinal: No: Nausea, Vomiting, Abdominal Pain Genitourinary: No Dysuria, No Hematuria Musculoskeletal: No: back pain, leg pain Neurological: No: Change in speech, Confusion Objective Exam Vital Signs Date Time Temp Pulse Resp B/P (MAP) Pulse Ox O2 Delivery O2 Flow Rate FiO2 12/24/22 04:00 36.3 68 16 135/75 (95) 99 Room Air 12/24/22 00:21 36.6 75 16 125/63 (83) 99 Room Air 12/23/22 20:00 Room Air 12/23/22 19:44 36.2 72 16 115/55 (75) 99 Room Air 12/23/22 15:43 36.8 82 16 105/53 (70) 98 Room Air 12/23/22 11:17 36.5 82 20 111/66 (81) 98 Room Air 12/23/22 08:37 Room Air 12/23/22 07:33 36.0 74 20 132/63 (86) 97 Room Air I & O 12/24/22 07:00 Intake Total 2780 ml Balance 2780 ml Capillary Refill : General Appearance: No Apparent Distress, WD/WN HEENT: PERRL/EOMI, Moist Mucous Membranes Neck: Non Tender, Supple Respiratory: Chest Non Tender, Lungs Clear, No Accessory Muscle Use Cardiovascular: Regular Rate, Rhythm, No JVD Gastrointestinal: non tender, soft; No distended Extremity: No Swelling; Other (R BKA. Left foot has digits missing also. No signs of infection.) Neurologic/Psychiatric: Alert, Oriented x3, Normal Mood/Affect Skin: Normal Color, Warm/Dry Lymphatic: No Adenopathy Results Lab Laboratory Tests 12/23/22 10:48: Glucometer 143H 12/23/22 15:53: Glucometer 138H 12/23/22 20:40: Glucometer 155H 12/24/22 04:45: White Blood Count 9.9, Red Blood Count 3.30L, Hemoglobin 8.3L, Hematocrit 28L, Mean Corpuscular Volume 84, Mean Corpuscular Hemoglobin 25, Mean Corpuscular Hemoglobin Concent 30L, Red Cell Distribution Width 18.2H, Platelet Count 386, Mean Platelet Volume 9.8, Immature Granulocyte % (Auto) 1, Neutrophils (%) (Auto) 47, Lymphocytes (%) (Auto) 33, Monocytes (%) (Auto) 9, Eosinophils (%) (Auto) 9, Basophils (%) (Auto) 1, Neutrophils # (Auto) 4.7, Lymphocytes # (Auto) 3.3, Monocytes # (Auto) 0.9, Eosinophils # (Auto) 0.9H, Basophils # (Auto) 0.1, Immature Granulocyte # (Auto) 0.1, Sodium Level 139, Potassium Level 4.3, Chloride Level 107, Carbon Dioxide Level 22, Anion Gap 10, Blood Urea Nitrogen 10, Creatinine 0.82, Estimat Glomerular Filtration Rate 83, BUN/Creatinine Ratio 12, Glucose Level 112H, Calcium Level 8.6, Corrected Calcium 9.5, Total Bilirubin 0.1, Aspartate Amino Transf (AST/SGOT) 26, Alanine Aminotransferase (ALT/SGPT) 20, Alkaline Phosphatase 77, Total Protein 6.1L, Albumin 2.9L Microbiology 12/20/22 MRSA Screen - Final, Complete MRSA not isolated Assessment/Plan Assessment/Plan Assessment/Plan Osteomyelitis of R foot POD 4 R BKA surgical site pain much improved Diabetes mellitus- insulin dependent chronic neck pain Pain controlled No signs of surgical site infection at this time, continue to monitor WBC and vitals Daily dressing changes Home meds restarted by internal medicine Continue glucose control with SSI Consulted prosthetics who saw patient on 12/21 and will follow up later this week PT Sylvia inpt rehab soon, pending approval HENRIK THIBODEAUX Dec 24, 2022 06:40
[2022-12-24 07:51] VITALS: BP 124/76
[2022-12-24] MEDS: IRON SUCROSE 200 MG/10 ML (VENOFER) VIAL IV SCH (08:53)
[2022-12-24] MEDS: FAMOTIDINE 20 MG (PEPCID) TABLET PO SCH (08:55)
[2022-12-24] MEDS: ARTIFICAL TEARS 0.4 ML UNIT DOSE (REFRESH PLUS) OU SCH (08:55)
[2022-12-24] MEDS: FERROUS SULF 325 MG (IRON) TAB PO SCH (08:55)
[2022-12-24] MEDS: metFORMIN 500 MG (GLUCOPHAGE) TAB PO SCH (08:56)
[2022-12-24] MEDS: LOSARTAN 100 MG (COZAAR) TABLET PO SCH (08:56)
[2022-12-24] MEDS ORDERED: ACHD5005 PO (10:11)
[2022-12-24] MEDS ORDERED: CYAN-41 PO (10:11)
--- NOTE | 2022-12-24 10:14 | D/C HH Face to Face Order ---
D/C Face to Face Orders Reconcile Patient Problems Problems Reviewed?: Yes Instructions for Patient Via Ruthy Maintenance Assistant, Patient Instructions/FollowUp: PCP [address] Hill in 1 week Physician to follow Patient: [facility] Discharge Diet for Home: ADA Diet Patient Problems: Right BKA Patient Data-Allergies,Ht & Wt Patient Allergies: Coded Allergies: No Known Drug Allergies (Unverified , 12/20/22) Height (Feet): 5 Height (Inches): 0 Weight (Pounds): 179 Weight (Ounces): 4.0 Home Health Need/Face to Face Date of Face to Face: Dec 24, 2022 Clinical Findings: Generalized weakness and fatigue, Instability, Muscle weakness, Unsteady gait I have seen Pt [id number]: Yes Discharged To: Home Diagnosis/Conditions: Debility Patient is Homebound due to: Lee fall risk due to instabilty, Non-weight bearing Homebound Status Due to the above stated illness, injury or surgical procedure (medical condition or diagnosis) and associated clinical findings, the patient is homebound because of his/her inability to leave home except with aid of a supp ortive device and/or person AND leaving the home requires a considerable and taxing effort or is medically contraindicated. Pt req the following assistanc: [facility] Nursing Orders Home Health Services Order: Nursing Services, Machine Sorter-Evaluate & Treat, Physical Therapy-Evaluate & Treat, Wound Care-Eval/Treat Home Health Infusion Therapy Line Start Date: Dec 22, 2022 Certify Stmt I certify that this patient is under my care and that I, a nurse practitioner or a physician; a vet assistant working with me, had a face to face encounter that - meets the physician face to face encounter requirements with this patient as dated. WAYNE SUNSHINE DO Dec 24, 2022 10:14
--- NOTE | 2022-12-24 10:15 | Discharge Summary ---
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 HTN HLP Smoker Urinary retention-resolved now s/p catheter Iron def anemia Borderline B12 def Plan: Monitor closely Pain control Iron and B12 supplement Discharge Summary Discharge Physical Examination Allergies: Coded Allergies: No Known Drug Allergies (Unverified , 12/20/22) Vitals & I&Os Vital Signs Date Time Temp Pulse Resp B/P (MAP) Pulse Ox O2 Delivery O2 Flow Rate FiO2 12/24/22 09:00 Room Air 12/24/22 07:51 36.4 76 18 124/76 (92) 96 12/21/22 21:00 2.00 General Appearance: Alert, Oriented X3, Cooperative Respiratory: Clear to Auscultation Cardiovascular: Regular Rate Psych/Mental Status: Mental Status NL Hospital Course Was the Problem List Reviewed?: Yes Uneventful course after admitted following right BKA. IV iron infusion required and home meds restarted and pain was controlled with pain meds. BM regimen maintained and overall she did so well she did not require ARU so she was DC in improved condition. Labs (last 24 hrs) Laboratory Tests 12/20/22 07:15: Glucometer 166H 12/20/22 11:32: Glucometer 214H 12/20/22 15:41: Glucometer 198H 12/20/22 20:09: Glucometer 214H 12/21/22 05:20: White Blood Count 12.8H, Red Blood Count 3.33L, Hemoglobin 8.3L, Hematocrit 28L, Mean Corpuscular Volume 83, Mean Corpuscular Hemoglobin 25, Mean Corpuscular Hemoglobin Concent 30L, Red Cell Distribution Width 17.8H, Platelet Count 327, Mean Platelet Volume 9.4, Sodium Level 137, Potassium Level 4.1, Chloride Level 104, Carbon Dioxide Level 23, Anion Gap 10, Blood Urea Nitrogen 9, Creatinine 0.77, Estimat Glomerular Filtration Rate 90, BUN/Creatinine Ratio 12, Glucose Level 155H, Calcium Level 8.1L 12/21/22 06:45: Iron Level 16L, Total Bilirubin 0.2, Direct Bilirubin 0.1, Indirect Bilirubin 0.1, Aspartate Amino Transf (AST/SGOT) 34, Alanine Aminotransferase (ALT/SGPT) 20, Alkaline Phosphatase 72, Total Protein 5.3L, Albumin 2.8L, Vitamin B12 Level 333 12/21/22 11:43: Glucometer 115H 12/21/22 15:56: Glucometer 160H 12/21/22 20:13: Glucometer 164H 12/22/22 05:43: Glucometer 110, White Blood Count 13.0H, Red Blood Count 3.17L, Hemoglobin 8.0L, Hematocrit 27L, Mean Corpuscular Volume 84, Mean Corpuscular Hemoglobin 25, Mean Corpuscular Hemoglobin Concent 30L, Red Cell Distribution Width 18.4H, Platelet Count 316, Mean Platelet Volume 9.6, Immature Granulocyte % (Auto) 1, Neutrophils (%) (Auto) 64, Lymphocytes (%) (Auto) 20, Monocytes (%) (Auto) 9, Eosinophils (%) (Auto) 6, Basophils (%) (Auto) 1, Neutrophils # (Auto) 8.2H, Lymphocytes # (Auto) 2.6, Monocytes # (Auto) 1.2H, Eosinophils # (Auto) 0.8H, Basophils # (Auto) 0.1, Immature Granulocyte # (Auto) 0.1, Sodium Level 139, Potassium Level 4.1, Chloride Level 107, Carbon Dioxide Level 23, Anion Gap 9, Blood Urea Nitrogen 7, Creatinine 0.65, Estimat Glomerular Filtration Rate 103, BUN/Creatinine Ratio 11, Glucose Level 123H, Calcium Level 8.4L, Corrected Calcium 9.3, Total Bilirubin 0.2, Aspartate Amino Transf (AST/SGOT) 31, Alanine Aminotransferase (ALT/SGPT) 18, Alkaline Phosphatase 66, Total Protein 6.0L, Albumin 2.9L 12/22/22 11:01: Glucometer 126H 12/22/22 15:54: Glucometer 133H 12/22/22 20:49: Glucometer 200H 12/23/22 05:03: White Blood Count 10.3, Red Blood Count 3.27L, Hemoglobin 8.1L, Hematocrit 27L, Mean Corpuscular Volume 84, Mean Corpuscular Hemoglobin 25, Mean Corpuscular Hemoglobin Concent 30L, Red Cell Distribution Width 18.0H, Platelet Count 336, Mean Platelet Volume 9.7, Immature Granulocyte % (Auto) 1, Neutrophils (%) (Auto) 65, Lymphocytes (%) (Auto) 19, Monocytes (%) (Auto) 8, Eosinophils (%) (Auto) 7, Basophils (%) (Auto) 1, Neutrophils # (Auto) 6.7, Lymphocytes # (Auto) 1.9, Monocytes # (Auto) 0.8, Eosinophils # (Auto) 0.8H, Basophils # (Auto) 0.1, Immature Granulocyte # (Auto) 0.1, Sodium Level 140, Potassium Level 4.0, Chloride Level 107, Carbon Dioxide Level 22, Anion Gap 11, Blood Urea Nitrogen 7, Creatinine 0.64, Estimat Glomerular Filtration Rate 103, BUN/Creatinine Ratio 11, Glucose Level 91, Calcium Level 8.7, Corrected Calcium 9.5, Total Bilirubin 0.2, Aspartate Amino Transf (AST/SGOT) 28, Alanine Aminotransferase (ALT/SGPT) 20, Alkaline Phosphatase 74, Total Protein 6.4, Albumin 3.0L 12/23/22 06:16: Glucometer 93 12/23/22 10:48: Glucometer 143H 12/23/22 15:53: Glucometer 138H 12/23/22 20:40: Glucometer 155H 12/24/22 04:45: White Blood Count 9.9, Red Blood Count 3.30L, Hemoglobin 8.3L, Hematocrit 28L, Mean Corpuscular Volume 84, Mean Corpuscular Hemoglobin 25, Mean Corpuscular Hemoglobin Concent 30L, Red Cell Distribution Width 18.2H, Platelet Count 386, Mean Platelet Volume 9.8, Immature Granulocyte % (Auto) 1, Neutrophils (%) (Auto) 47, Lymphocytes (%) (Auto) 33, Monocytes (%) (Auto) 9, Eosinophils (%) (Auto) 9, Basophils (%) (Auto) 1, Neutrophils # (Auto) 4.7, Lymphocytes # (Auto) 3.3, Monocytes # (Auto) 0.9, Eosinophils # (Auto) 0.9H, Basophils # (Auto) 0.1, Immature Granulocyte # (Auto) 0.1, Sodium Level 139, Potassium Level 4.3, Chloride Level 107, Carbon Dioxide Level 22, Anion Gap 10, Blood Urea Nitrogen 10, Creatinine 0.82, Estimat Glomerular Filtration Rate 83, BUN/Creatinine Ratio 12, Glucose Level 112H, Calcium Level 8.6, Corrected Calcium 9.5, Total Bilirubin 0.1, Aspartate Amino Transf (AST/SGOT) 26, Alanine Aminotransferase (ALT/SGPT) 20, Alkaline Phosphatase 77, Total Protein 6.1L, Albumin 2.9L Microbiology 12/20/22 MRSA Screen - Final, Complete MRSA not isolated Pending Labs Microbiology Date/Time Source Procedure Growth Status 12/20/22 07:00 Nasal MRSA Screen - Final MRSA not isolated Complete Laboratory Tests 12/20/22 07:15: Glucometer 166 12/20/22 11:32: Glucometer 214 12/20/22 15:41: Glucometer 198 12/20/22 20:09: Glucometer 214 12/21/22 05:20: White Blood Count 12.8, Red Blood Count 3.33, Hemoglobin 8.3, Hematocrit 28, Mean Corpuscular Volume 83, Mean Corpuscular Hemoglobin 25, Mean Corpuscular Hemoglobin Concent 30, Red Cell Distribution Width 17.8, Platelet Count 327, Mean Platelet Volume 9.4, Sodium Level 137, Potassium Level 4.1, Chloride Level 104, Carbon Dioxide Level 23, Anion Gap 10, Blood Urea Nitrogen 9, Creatinine 0.77, Estimat Glomerular Filtration Rate 90, BUN/Creatinine Ratio 12, Glucose Level 155, Calcium Level 8.1 12/21/22 06:45: Iron Level 16, Total Bilirubin 0.2, Direct Bilirubin 0.1, Indirect Bilirubin 0.1, Aspartate Amino Transf (AST/SGOT) 34, Alanine Aminotransferase (ALT/SGPT) 20, Alkaline Phosphatase 72, Total Protein 5.3, Albumin 2.8, Vitamin B12 Level 333 12/21/22 11:43: Glucometer 115 12/21/22 15:56: Glucometer 160 12/21/22 20:13: Glucometer 164 12/22/22 05:43: Glucometer 110, White Blood Count 13.0, Red Blood Count 3.17, Hemoglobin 8.0, Hematocrit 27, Mean Corpuscular Volume 84, Mean Corpuscular Hemoglobin 25, Mean Corpuscular Hemoglobin Concent 30, Red Cell Distribution Width 18.4, Platelet Count 316, Mean Platelet Volume 9.6, Immature Granulocyte % (Auto) 1, Neutrophils (%) (Auto) 64, Lymphocytes (%) (Auto) 20, Monocytes (%) (Auto) 9, Eosinophils (%) (Auto) 6, Basophils (%) (Auto) 1, Neutrophils # (Auto) 8.2, Lymphocytes # (Auto) 2.6, Monocytes # (Auto) 1.2, Eosinophils # (Auto) 0.8, Basophils # (Auto) 0.1, Immature Granulocyte # (Auto) 0.1, Sodium Level 139, Potassium Level 4.1, Chloride Level 107, Carbon Dioxide Level 23, Anion Gap 9, Blood Urea Nitrogen 7, Creatinine 0.65, Estimat Glomerular Filtration Rate 103, BUN/Creatinine Ratio 11, Glucose Level 123, Calcium Level 8.4, Corrected Calcium 9.3, Total Bilirubin 0.2, Aspartate Amino Transf (AST/SGOT) 31, Alanine Aminotransferase (ALT/SGPT) 18, Alkaline Phosphatase 66, Total Protein 6.0, Albumin 2.9 12/22/22 11:01: Glucometer 126 12/22/22 15:54: Glucometer 133 12/22/22 20:49: Glucometer 200 12/23/22 05:03: White Blood Count 10.3, Red Blood Count 3.27, Hemoglobin 8.1, Hematocrit 27, Mean Corpuscular Volume 84, Mean Corpuscular Hemoglobin 25, Mean Corpuscular Hemoglobin Concent 30, Red Cell Distribution Width 18.0, Platelet Count 336, Franca n Platelet Volume 9.7, Immature Granulocyte % (Auto) 1, Neutrophils (%) (Auto) 65, Lymphocytes (%) (Auto) 19, Monocytes (%) (Auto) 8, Eosinophils (%) (Auto) 7, Basophils (%) (Auto) 1, Neutrophils # (Auto) 6.7, Lymphocytes # (Auto) 1.9, Monocytes # (Auto) 0.8, Eosinophils # (Auto) 0.8, Basophils # (Auto) 0.1, Immature Granulocyte # (Auto) 0.1, Sodium Level 140, Potassium Level 4.0, Chloride Level 107, Carbon Dioxide Level 22, Anion Gap 11, Blood Urea Nitrogen 7, Creatinine 0.64, Estimat Glomerular Filtration Rate 103, BUN/Creatinine Ratio 11, Glucose Level 91, Calcium Level 8.7, Corrected Calcium 9.5, Total Bilirubin 0.2, Aspartate Amino Transf (AST/SGOT) 28, Alanine Aminotransferase (ALT/SGPT) 20, Alkaline Phosphatase 74, Total Protein 6.4, Albumin 3.0 12/23/22 06:16: Glucometer 93 12/23/22 10:48: Glucometer 143 12/23/22 15:53: Glucometer 138 12/23/22 20:40: Glucometer 155 12/24/22 04:45: White Blood Count 9.9, Red Blood Count 3.30, Hemoglobin 8.3, Hematocrit 28, Mean Corpuscular Volume 84, Mean Corpuscular Hemoglobin 25, Mean Corpuscular Hemoglobin Concent 30, Red Cell Distribution Width 18.2, Platelet Count 386, Mean Platelet Volume 9.8, Immature Granulocyte % (Auto) 1, Neutrophils (%) (Auto) 47, Lymphocytes (%) (Auto) 33, Monocytes (%) (Auto) 9, Eosinophils (%) (Auto) 9, Basophils (%) (Auto) 1, Neutrophils # (Auto) 4.7, Lymphocytes # (Auto) 3.3, Monocytes # (Auto) 0.9, Eosinophils # (Auto) 0.9, Basophils # (Auto) 0.1, Immature Granulocyte # (Auto) 0.1, Sodium Level 139, Potassium Level 4.3, Chloride Level 107, Carbon Dioxide Level 22, Anion Gap 10, Blood Urea Nitrogen 10, Creatinine 0.82, Estimat Glomerular Filtration Rate 83, BUN/Creatinine Ratio 12, Glucose Level 112, Calcium Level 8.6, Corrected Calcium 9.5, Total Bilirubin 0.1, Aspartate Amino Transf (AST/SGOT) 26, Alanine Aminotransferase (ALT/SGPT) 20, Alkaline Phosphatase 77, Total Protein 6.1, Albumin 2.9 Discharge Home Medications: Active Scripts Active Vitamin B-12 (Cyanocobalamin (Vitamin B-12)) 1,000 Mcg Tablet 1,000 Mcg PO DAILY@0700 Hydrocodone-Acetamin 5-325 mg (Hydrocodone/Acetaminophen) 5 Mg-325 Mg Tablet 1 Ea PO Q6H PRN Reported Metformin HCl 500 Mg Tablet 1,000 Mg PO HS TAKES 2 (500MG) TABS Metformin HCl 500 Mg Tablet 500 Mg PO DAILY Pantoprazole Sodium 40 Mg Tablet.dr 40 Mg PO DAILY Famotidine 20 Mg Tablet 20 Mg PO DAILY Melatonin 10 Mg Tab.rapdis 10 Mg PO HS Centrum Silver Tablet (Multivit-Min/FA/Lycopene/Lut) 0.4 Mg-300 Mcg-250 Mcg Tablet 1 Each PO DAILY Levemir Flexpen (Insulin Detemir) 100 Unit/Ml (3 Ml) Insuln.pen 10 Unit SQ BID Acetaminophen 500 Mg Tablet 1,500 Mg PO Q8H PRN TAKES 3 (500MG) TABS Ferosul (Ferrous Sulfate) 325 Mg (65 Mg Iron) Tablet 325 Mg PO DAILY Restasis (Cyclosporine) 0.05 % Droperette 1 Drop OU BID Olmesartan Medoxomil 20 Mg Tablet 20 Mg PO DAILY Atorvastatin Calcium 40 Mg Tablet 40 Mg PO HS Amitriptyline HCl 25 Mg Tablet 25 Mg PO HS Duloxetine HCl 30 Mg Capsule.dr 30 Mg PO HS TAKES 30MG +60MG TO EQUAL 90MG Duloxetine HCl 60 Mg Capsule.dr 60 Mg PO HS TAKES 30MG +60MG TO EQUAL 90MG Promethazine Tablet (Promethazine HCl) 25 Mg Tablet 50 Mg PO HS TAKES 2 (25MG) TABS Levothyroxine Sodium 50 Mcg Tablet 50 Mcg PO DAILY Instructions to patient/family Please see electronic discharge instructions given to patient. WAYNE SUNSHINE DO Dec 24, 2022 10:15
--- NOTE | 2022-12-24 11:00 | Physical Therapy Daily Note ---
PT Daily Note-Current Subjective Patient agrees to PT. Pain Section J - Health Conditions 1. Rarely or not at all 2. Occasionally 3. Frequently 4. Almost constantly 8. Unable to answer Pain Effect on Sleep: 1 Pain Interference with Therapy: 1 Pain Interference w/Day-to-Day: 1 Mental Status Patient Orientation: Normal For Age Transfers SCALE: Activities may be completed with or without assistive devices. 9-Mqetsjgndi-wnxxoxv completes the activity by him/herself with no assistance from a helper. 5-Set-up or Clean-up Assistance-helper sets up or cleans up; patient completes activity. Narvon assists only prior to or following the activity. 4-Supervision or Touching Assistance-helper provides verbal cues and/or touching/steadying and/or contact guard assistance as patient completes activity. Assistance may be provided throughout the activity or intermittently. 3-Partial/Moderate Assistance-helper does LESS THAN HALF the effort. Narvon lifts, holds or supports trunk or limbs, but provides less than half the effort. 2-Substantial/Maximal Assistance-helper does MORE THAN HALF the effort. Narvon lifts or holds trunk or limbs and provides more than half the effort. 1-Gysmcxnjv-cosjhe does ALL the effort. Patient does none of the effort to complete the activity. Or, the assistance of 2 or more helpers is required for the patient to complete the activity. If activity was not attempted, code reason: 7-Patient Refused. 9-Not Applicable-not attempted and the patient did not perform the activity before the current illness, exacerbation or injury. 10-Not Attempted due to Environmental Limitations-(lack of equipment, weather restraints, etc.). 88-Not Attempted due to Medical Conditions or Safety Concerns. Lying to Sitting/Side of Bed(Q: 6 Sit to Stand (QC): 4 Chair/Bwn-vf-Mucxh Xfer(QC): 4 Gait Training Distance: 75' Walk 10 feet (QC): 4 Walk 50 ft with 2 Turns(QC): 4 Gait Assistive Device: FWW Exercises Standin way Ex=Flex, Abd, Ext Standing Reps: 15 Assessment Patient tolerated treatment well and will dismiss to home with family and home health this week. PT Short Term Goals Short Term Goals Time Frame: Dec 21, 2022 PT Continuity Tester Goals Continuity Tester Goals PT Continuity Tester Goals Time Frame: Dec 29, 2022 Roll Left & Right (QC): 6 Sit to Lying (QC): 6 Lying-Sitting on Side/Bed(QC): 6 Sit to Stand (QC): 6 Chair/Zrj-ql-Fbdmr Xfer(QC): 6 Toilet Transfer (QC): 6 Walk 10 feet (QC): 6 Walk 50ft with 2 Turns (QC): 6 PT Plan Treatment/Plan Treatment Plan: Continue Plan of Care Treatment Plan: Education, Functional Activity Noble, Functional Strength, Gait, Safety, Therapeutic Exercise, Transfers Treatment Duration: Dec 29, 2022 Frequency: 6 times per week Estimated Hrs Per Day: .5 hour per day Patient and/or Family Agrees t: Yes Time Time In: 935 Time Out: 948 DATE: Dec 24, 2022 Total Billed Treatment Time: 13 Total Billed Treatment 1 visit FA 13 min CECELIA MILNER PT Dec 24, 2022 11:00
== END 2022-12-24 11:23 | disposition home health service (06) | DRG 617 ==
LOC: 4TH 06:42 → SURG 06:43 → 4TH 11:15
PROVIDERS: ADMIT Surgery; ATTEND Surgery
PROC: 0Y6H0Z1 Detachment at Right Lower Leg, High, Open Approach (ICD-10-PCS; principal; 2022-12-20 08:09)
DX: E11.69 Type 2 diabetes mellitus with other specified complication (principal); M86.171 Other acute osteomyelitis, right ankle and foot; F17.210 Nicotine dependence, cigarettes, uncomplicated; E78.00 Pure hypercholesterolemia, unspecified; I10 Essential (primary) hypertension; E11.40 Type 2 diabetes mellitus with diabetic neuropathy, unspecified; G43.909 Migraine, unspecified, not intractable, without status migrainosus; K21.9 Gastro-esophageal reflux disease without esophagitis; M19.90 Unspecified osteoarthritis, unspecified site; M41.9 Scoliosis, unspecified; Z79.4 Long term (current) use of insulin; E03.9 Hypothyroidism, unspecified; F41.9 Anxiety disorder, unspecified; F32.A Depression, unspecified; R33.9 Retention of urine, unspecified; D50.9 Iron deficiency anemia, unspecified; M54.2 Cervicalgia
CPT/HCPCS: 36415; 80048; 80053; 80076; 82607; 82947; 83540; 85025; 85027; 87081

== ENCOUNTER → 2023-05-07 | Outpatient (CLI) | payer MEDICARE, MEDICAID ==
[~2023-05-07] MED LIST changes: +CYAN-41 PO; +FAMO20TA5 PO; +GADOTERATE 0.5 MMOL/ML (CLARISCAN) 20 ML VIAL IV ONE; -INSU100I29 SQ; +INSU100I30 SQ; +MELA10TA20 PO; +MULT-1029 PO; -POTA10CA44 PO; +POTA10CA84 PO
--- NOTE | 2023-05-07 09:28 | Diagnostic Imaging Report ---
PROCEDURE: MRI left lower extremity with and without contrast. TECHNIQUE: Multiplanar, multisequence pre and post contrast-enhanced MRI of the left lower extremity was accomplished. INDICATION: Ulceration of the left foot. COMPARISON: Radiographs from 08/02/2022. FINDINGS: There has been prior amputation of the great toe at the metatarsal head. There is bone marrow edema and enhancement in the distal 1st metatarsal shaft with erosive change and T1-weighted marrow replacement. There is surrounding edema and enhancement. There is an overlying soft tissue ulceration with a rim-enhancing fluid collection measuring 1.1 x 0.6 x 1.1 cm in size. No acute fracture is seen. There is motion artifact on multiple sequences but no acute abnormality is seen in the lesser toes. The Lisfranc ligament is intact. There is marked generalized muscular atrophy in the foot. No tears are seen of the visible flexor, extensor, or peroneal tendons. No other masses or fluid collections are seen. There are degenerative changes in the ankle and hindfoot. IMPRESSION: Osteomyelitis of the left 1st metatarsal stump with overlying soft tissue ulceration and small abscess. Dictated by: Dictated on workstation # [id number]
== END ==
LOC: RAD 07:27
PROVIDERS: ATTEND Surgery
DX: M86.8X7 Other osteomyelitis, ankle and foot (principal)
CPT/HCPCS: 73720

== ENCOUNTER 2023-05-13 05:31 | Outpatient (CLI) | payer MEDICARE, MEDICAID ==
[~2023-05-13] VITALS: Ht 152.4 cm; Wt 78.6 kg
[~2023-05-13 05:31] MED LIST changes: -GADOTERATE 0.5 MMOL/ML (CLARISCAN) 20 ML VIAL IV ONE
[2023-05-13] MEDS ORDERED: LIDO1ADH66 TP (10:55)
[2023-05-13] MEDS ORDERED: NICO-533 TD (10:55)
[2023-05-13] MEDS ORDERED: RT-ALBUINH INH (10:55)
[2023-05-13] MEDS ORDERED: POTA10CA84 PO (10:55)
[2023-05-13] MEDS ORDERED: INSU100V39 SQ (10:55)
[2023-05-13] MEDS ORDERED: COLL30OI TP (10:55)
[2023-05-13] MEDS ORDERED: TR1C15 TP (10:55)
[2023-05-13] MEDS ORDERED: MUPI15CR11 TP (10:55)
[2023-05-13] MEDS ORDERED: POLY17PO6 PO (10:55)
[2023-05-13] MEDS ORDERED: MELA1TAB72 PO (10:55)
== END 2023-05-13 11:23 | disposition home or self-care (01) ==
LOC: PREOP 05:31
PROVIDERS: ATTEND Surgery
DX: Z01.818 Encounter for other preprocedural examination (principal)

== ENCOUNTER 2023-05-15 06:37 | Day surgery (SDC) | payer MEDICARE, MEDICAID ==
[~2023-05-15] VITALS: Ht 152.4 cm; Wt 78.6 kg
[2023-05-15] VITALS (11 sets, daily range): BP systolic 86–116; BP diastolic 53–76
[~2023-05-15 06:37] MED LIST changes: +COLL30OI TP; +INSU100V39 SQ; +LIDO1ADH66 TP; +MUPI15CR11 TP; +NICO-533 TD; +POLY17PO6 PO; +TR1C15 TP
[2023-05-15] MEDS ORDERED: ceFAZolin INJECTION 2,000 MG in NS (IVPB) 50 ML 50 ML IV ONE (07:15)
[2023-05-15] MEDS ORDERED: proPOfol 200 MG/20 ML (DIPRIVAN) VIAL IV ONE (07:27)
[2023-05-15] MEDS ORDERED: LIDOCAINE PF 2% 5 ML VIAL ONE (07:27)
[2023-05-15] MEDS ORDERED: MIDAZOLAM INJ 2 MG/2 ML VIAL ONE (07:27)
[2023-05-15] MEDS ORDERED: fentaNYL INJECTION 100 MCG/2 ML VIAL ONE (07:27)
[2023-05-15] MEDS: LACTATED RINGERS 1,000 ML IV PRN ×2 (07:29→08:44)
--- NOTE | 2023-05-15 07:30 | Progress Note-Pre Operative ---
Pre-Operative Progress Note Date H&P Reviewed: May 15, 2023 Time H&P Reviewed: 07:30 History & Physical: H&P Reviewed, Patient Examed, No changes noted Pre-Operative Diagnosis: osteomyelitis left 1st metatarsal LUCILA HORTON DO May 15, 2023 07:30
[2023-05-15] MEDS ORDERED: BUPIVACAINE 0.5% 30 ML VIAL ONE (07:41)
[2023-05-15] MEDS ORDERED: PHENYLEPHRINE 100 MCG/ML 10 ML (ANESTHESIA) SYR ONE (07:52)
[2023-05-15] MEDS ORDERED: BUPIVACAINE 0.5% 30 ML VIAL INJ ONE (08:16)
[2023-05-15] MEDS ORDERED: SEVOFLURANE (ULTANE) 15 ML INHAL SOLN ONE (08:23)
--- NOTE | 2023-05-15 08:31 | Discharge Inst-Simple/Standard ---
Discharge Inst-Standard Discharge Medications New, Converted or Re-Newed RX: RX on Chart Patient Instructions/Follow Up Plan of Care/Instructions/FU: 2 weeks Sergio Irrigate and pack wound daily and as needed. Activity as Tolerated: No Discharge Diet: Regular Diet Other Inst to Patient Follow up Appt: Make appointment for 2 week. Instructions: No lifting greater than 10 pounds. No strenuous activity. May shower in 24 hours, no tub bath or soaking. Use incentive spirometer at home as directed. No Smoking Skin/Wound Care: Irrigate and pack wound daily and as needed, as instructed. Symptoms to Report: Appetite Changes, Extremity Discoloration, Numbness/Tingling, Swelling Increased, Bleeding Excessive, Eyesight Changes, Pain Increased, Urine Color Change, Constipation(Persistent), Fever over 101 degree F, Pain/Pressure in chest, Urinating Difficulty, Cough Up/Vomit Blood, Heart Beat Irreg/Pounding, Pain/Pressure in jaw, Vaginal Bleeding Increase, Cramps in feet or legs, Lightheadedness, Pain/Pressure in shoulder, Diarrhea(Persistent), Memory Changes Suddenly, Questions/Concerns, Weight gain consecutive days, Dizziness/Fainting, Nausea/Vomiting, Shortness of Breath, Weight gain over 2 pounds If questions or concerns contact your physician Or seek help at emergency department. LUCILA HORTON DO May 15, 2023 08:31
--- NOTE | 2023-05-15 08:34 | Progress Note-Post Operative ---
Post-Operative Progess Note Surgeon (s)/Porcelain Enameling Supervisor (s) Surgeon LUCILA HORTON DO Porcelain Enameling Supervisor: na Pre-Operative Diagnosis osteomyelitis left 1st metatarsal Post-Operative Diagnosis same Procedure & Operative Findings Date of Procedure 05/15/23 Procedure Performed/Findings left ankle block and left 1st ray partial amputation Anesthesia Type general Estimated Blood Loss Estimated blood loss (mL): minimal Specimens/Packing Specimens Removed 1st ray partial amputation Packing: [email or web address] LUCILA HORTON DO May 15, 2023 08:34
[2023-05-15] MEDS ORDERED: ONDANSETRON 4 MG/2 ML (SDV) Z0FRAN IVP PRN (08:45)
[2023-05-15] MEDS ORDERED: morphine INJ 10 MG/ML 1ML (SYR OR VIAL) IVP ONE (08:45)
[2023-05-15] MEDS ORDERED: ACHD5005 PO (09:15)
--- NOTE | 2023-05-15 12:57 | Anesthesia-General Post-Op ---
General Patient Condition Mental Status/LOC: Same as Preop Cardiovascular: Satisfactory Nausea/Vomiting: Absent Respiratory: Satisfactory Pain: Controlled Complications: Absent Post Op Complications Complications None Follow Up Care/Instructions Patient Instructions None needed. Anesthesia/Patient Condition Patient Condition Patient is doing well, no complaints, stable vital signs, no apparent adverse anesthesia problems. No complications reported per nursing. MIYA ABRAHAM CRNA May 15, 2023 12:57
--- NOTE | 2023-05-16 04:35 | OPERATIVE REPORT ---
DATE OF SERVICE: 05/15/2023 PREOPERATIVE DIAGNOSIS: Osteomyelitis of the left metatarsal bone. POSTOPERATIVE DIAGNOSIS: Osteomyelitis of the left metatarsal bone. PROCEDURE: Left foot, ankle block and partial first ray amputation. SURGEON: Lucila Hill DO ANESTHESIA: General. ESTIMATED BLOOD LOSS: Minimal. COMPLICATIONS: None. INDICATIONS: The patient is a 58-year-old female who had previous partial amputation of the left great toe. She has a chronic wound that has slight opening and draining a little bit. She had followup MRI demonstrated osteomyelitis of the distal first ray. She was discussed risks and benefits of procedure and wished to proceed. Consent was signed in chart. DESCRIPTION OF PROCEDURE: The patient was taken to the operating suite. She was prepped and draped in sterile fashion. Timeout was performed. Local anesthetic was used to do a left ankle block. This was injected posterior to the medial and lateral malleoli and along the dorsum of the foot. A #15 blade scalpel was used to make an elliptical incision over the previous wound at the location where the great toe would have been. The opening of the wound was excised within this area. Cautery used to dissect down through the subcutaneous tissues and then encountered bone fragments from the distal portion of the metatarsal. The tissues around the first metatarsal were then mobilized, good visualization of the bone, of the first metatarsal and got back to healthy, normal-appearing bone. A saw was then used to transect the first metatarsal bone partially. This was removed, although the bone appeared normal. Hemostasis was achieved. The wound was then irrigated with copious amounts of irrigation. Packed with iodoform. The area was washed and dried and sterile bandages were applied. The patient tolerated the procedure well without any complications, taken to recovery room in stable condition. Job ID: [id number] DocumentID: [id number] Dictated Date: 05/15/2023 22:34:24 In Processing Instructor Date: 05/16/2023 04:34:00 Dictated By: LUCILA HILL DO
== END 2023-05-15 10:20 ==
LOC: SDC 06:37
PROVIDERS: ATTEND Surgery
DX: T87.44 Infection of amputation stump, left lower extremity (principal); E11.69 Type 2 diabetes mellitus with other specified complication; M86.671 Other chronic osteomyelitis, right ankle and foot; S91.302A Unspecified open wound, left foot, initial encounter; F17.210 Nicotine dependence, cigarettes, uncomplicated; Z79.4 Long term (current) use of insulin; Z79.84 Long term (current) use of oral hypoglycemic drugs
CPT/HCPCS: 82947; 87081